=== PATIENT | female | born 1960 | race Caucasian/White ===

== ENCOUNTER 2016-07-13 12:53 | Outpatient (CLI) | payer BC ==
[~2016-07-13] VITALS: Ht 170.2 cm; Wt 79.4 kg
[~2016-07-13 12:53] MED LIST: ALBU8.5H2 IH; ASP81CT PO; ASPI1TAB PO; AZIT-21 PO; BENZ200C25 PO; CEFD300C3 PO; CEPH500C PO; CODE-54 PO; CODE118S2 PO; CYCL10TA45 PO; DOXY-233 PO; DOXY100C2 PO; DULO60CA6 PO; ESTR0.3T PO; FLT05NA16 NS; FLUT10SP NSEACH; FLUT16SP22 NS; FLUT1DIS26 IH; GLUCOSAMINE PO; HYDR-34 PO; HYDR-3714 PO; HYDR-757 PO; HYOS0.1216 PO; LEVO125T6 PO; LEVO175T3 PO; LEVO175T5 PO; LEVO200T6 PO; LEVO750T24 PO; LEVO75TA6 PO; LORA1TAB PO; LVF500T PO; LVT.15T PO; METH4TAB PO; MNTL10T PO; NAPR500T PO; OXYC-12 PO; PANT40TA2 PO; PHENOL MC; POLY17PO6 PO; PRD10T PO; PRD20T PO; RT-COMBINH INH; SUCR1TAB36 PO; TRAM50TA2 PO; Tizanidine Hcl PO
[2016-07-13] MEDS ORDERED: BUPIVACAINE 0.25% 30 ML (SENSORCAINE) VIAL ONE (13:00)
[2016-07-13] MEDS ORDERED: TRIAMCINOLONE ACET (KENALOG-40) 40 MG/ML 1 ML VIAL ONE (13:00)
[2016-07-13 13:20] VITALS: BP 123/76
[2016-07-13 13:52] VITALS: BP 137/88
--- NOTE | 2016-07-13 14:03 | Pain Medicine-Procedure ---
Procedure Pre-Op/Post-Op Diagnosis Diagnosis: disc disorder with radiculopathy, lumbar Indications for Operation Low back pain Attending Surgeon Felicity Procedure Date of Service: Jul 13, 2016 Procedure: Lumbar Epidural Steroid Injection at the L5-S1 level under Fluoroscopic Guidance Procedure: Patient was identified in the holding area. After risks, benefits, and alternatives were discussed with the patient, informed consent was obtained. Patient was brought to the fluoroscopy suite and placed prone on the procedure room table. A time out was performed. Vital signs were monitored throughout the procedure. The patients low back was prepped and draped in the usual sterile fashion. The patients skin was anesthetized using 2% Lidocaine. A Tuohy needle was inserted and advanced to the L5-S1 epidural space under fluoroscopic guidance using the loss of resistance technique and intermittent projection of fluoroscopy. There was no paresthesia with needle placement. The needle position was confirmed in both the AP and lateral view. No contrast was used secondary to history of contrast allergy, after negative aspiration for heme or CSF, 2 ml of 0.25% Bupivicaine, 2ml of preservative free normal saline, and 80mg of Kenalog was injected. The needle was removed and a sterile bandage was placed and the patient was transferred to the recovery area in stable condition. After a brief period of observation, patient was discharged to home with no new neurological deficits and no apparent complications. Complications None LEVY DOSS MD Jul 13, 2016 2:03 pm
== END 2016-07-13 13:53 | disposition home or self-care (01) ==
LOC: CARD 12:53
PROVIDERS: ATTEND Pain Medicine Pain Medicine
DX: M51.16 Intervertebral disc disorders with radiculopathy, lumbar region (principal); Z79.899 Other long term (current) drug therapy
CPT/HCPCS: 62323

== ENCOUNTER 2016-08-06 13:27 | Day surgery (SDC) | payer BC ==
[~2016-08-06] VITALS: Ht 170.2 cm; Wt 78.5 kg
[2016-08-06] VITALS (11 sets, daily range): BP systolic 97–129; BP diastolic 64–89
[2016-08-06 13:49] LABS: BASOPHILS % (AUTO) 0 % (0-10); EOSINOPHILS # (AUTO) 0.1 10^3/uL (0.0-0.3); EOSINOPHILS % (AUTO) 3 % (0-10); LYMPHOCYTES % (AUTO) 43 % (12-44); MEAN CORPUSCULAR HEMOGLOBIN 31 PG (25-34); MEAN CORPUSCULAR HGB CONC 33 G/DL (32-36); MEAN CORPUSCULAR VOLUME 96 FL (80-99); MEAN PLATELET VOLUME 10.2 FL (7.4-10.4); MONOCYTES # (AUTO) 0.5 X 10^3 (0.0-1.0); MONOCYTES % (AUTO) 11 % (0-12); NEUTROPHILS % (AUTO) 43 % (42-75); PLATELET COUNT 155 10^3/uL (130-400); RED BLOOD COUNT 4.04 10^6/uL (4.35-5.85); RED CELL DISTRIBUTION WIDTH 12.6 % (10.0-14.5); WHITE BLOOD COUNT 4.6 10^3/uL (4.3-11.0)
--- NOTE | 2016-08-06 13:53 | ED Chest Pain ---
General Chief Complaint: Chest Pain Stated Complaint: CHEST PAIN Source: patient Exam Limitations: no limitations History of Present Illness Time seen by provider: 13:50 Initial Comments To ER with central chest pain that began at 1250 p.m. today while she was playing with her grandkids at home. She does have some associated shortness of breath and she had associated diaphoresis with this. The pain was described as an ache. It was somewhat worsened by deep breathing in the right side of her chest was tender to palpation. This initially radiated up to both sides of her neck. EMS gave her 324 mg of aspirin and one nitroglycerin. The nitroglycerin did not seem to affect her pain she states though her pain now no longer radiates to the right side of her neck, only the left side of her neck. Yesterday while at work she had some diaphoresis and fatigue but no chest pain. She is a former smoker but quit 2 years ago. 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 Associated Symptoms: diaphoresis, No nausea/vomiting Allergies and Home Medications Allergies Coded Allergies: Iodinated Contrast Media - Oral and (Verified Allergy, Unknown, 12/24/15) Home Medications Levothyroxine Sodium 175 Mcg Tablet, 300 MCG PO DAILY, (Reported) Pantoprazole Sodium 40 Mg Tablet.dr, 40 MG PO DAILY, #90 Ref 3 Prescribed by: [facility] on 12/24/15 1412 Polyethylene Glycol 3350 17 Gm Powd.pack, 17 GM PO BID for 3 Days Prescribed by: ANNA CRESPO on 01/06/16 1727 Review of Systems Constitutional: see HPI, diaphoresis EENTM: No Symptoms Reported Respiratory: No Symptoms Reported Cardiovascular: See HPI, Chest Pain, Denies Edema, Denies Irregular Heart Rate , Denies Lightheadedness, Denies Palpitations, Denies Syncope Gastrointestinal: No Symptoms Reported Genitourinary: No Symptoms Reported Musculoskeletal: no symptoms reported Skin: no symptoms reported Psychiatric/Neurological: No Symptoms Reported Endocrine: No Symptoms Reported Hematologic/Lymphatic: No Symptoms Reported Past Qnhvkyv-Keddaw-Updnru Hx Patient Social History Type Used: Cigarettes Former Smoker/When Quit: Jan 17, 2013 Recent Hopitalizations: Yes (BRAIN AN 1995, BLADDER TIE UP , TVH WITH BSO 1999, GALLBLADDER 2005) Immunizations Up To Date Tetanus Booster (TDap): More than 5yrs PED Vaccines UTD: No Date of Pneumonia Vaccine: Jan 31, 2013 Date of Influenza Vaccine: Jan 17, 2014 Seasonal Allergies Seasonal Allergies: No Surgeries HX Surgeries: Yes (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) Surgeries: Bladder Surgery, Gallbladder, Hysterectomy Respiratory Hx Respiratory Disorders: Yes Respiratory Disorders: COPD Cardiovascular Hx Cardiac Disorders: No Neurological Hx Neurological Disorders: No Reproductive System Hx Reproductive Disorders: No Sexually Transmitted Disease: No HIV/AIDS: No 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 Genitourinary Hx Genitourinary Disorders: No Gastrointestinal Hx Gastrointestinal Disorders: No Gastrointestinal Disorders: Irritable Bowel Musculoskeletal Musculoskeletal Disorders: Fractures Endocrine Hx Endocrine Disorders: No Endocrine Disorders: Hyperthyroidism HEENT HX ENT Disorders: No Cancer Hx Cancer: No Psychosocial Hx Psychiatric Problems: No Integumentary HX Skin/Integumentary Disorder: No Blood Transfusions Hx Blood Disorders: No Adverse Reaction to a Blood Tr: No Family Medical History Significant Family History: Cancer, CVA, Hypertension, Renal Disease Family Medial History: Arthritis 19 FATHER Cancer G8 SISTER 19 MOTHER Cardiovascular disease 19 FATHER Completed stroke 19 FATHER Family history: Cardiovascular disease 19 FATHER Kidney disease 19 FATHER No Family History of: AIDS Abdominal aortic aneurysm [place]'s disease Alcoholism Alzheimer's disease Aphasia Cancer of mouth Cataracts Colon cancer Congenital disease Coronary thrombosis Cystic fibrosis Deafness or hearing loss Dementia Diabetes mellitus Drug abuse Dysphasia Fibrocystic disease of breast Gastroenteritis Glaucoma Headache disorder Hypercholesterolemia Hypertension Infertility Myocardial infarction Neoplasm Not obtainable due to adoption Osteoporosis Parkinson's disease Prostate cancer Respiratory disorder Seizure disorder Severe allergy Thyroid disease Tuberculosis Visual disorder Physical Exam Vital Signs Vital Sign - Last 12Hours 08/06/16 14:47 Temp 98.3 Capillary Refill : General Appearance: No Apparent Distress, WD/WN HEENT: PERRL/EOMI, TMs Normal Neck: Full Range of Motion, Normal Inspection Respiratory: Lungs Clear, Normal Breath Sounds, No Accessory Muscle Use, No Respiratory Distress, Other (sternal border is very tender to palpation.) Cardiovascular: Regular Rate, Rhythm, Normal Peripheral Pulses Gastrointestinal: Normal Bowel Sounds, Non Tender, Soft Neurologic/Psychiatric: Alert, Oriented x3, No Motor/Sensory Deficits Skin: Normal Color, Warm/Dry Progress/Results/Core Measures Results/Orders Lab Results Laboratory Tests Test 08/06/16 13:40 Range/Units White Blood Count 4.6 4.3-11.0 10^3/uL Red Blood Count 4.04 L 4.35-5.85 10^6/uL Hemoglobin 12.6 11.5-16.0 G/DL Hematocrit 39 35-52 % Mean Corpuscular Volume 96 80-99 FL Mean Corpuscular Hemoglobin 31 25-34 PG Mean Corpuscular Hemoglobin Concent 33 32-36 G/DL Red Cell Distribution Width 12.6 10.0-14.5 % Platelet Count 155 130-400 10^3/uL Mean Platelet Volume 10.2 7.4-10.4 FL Neutrophils (%) (Auto) 43 42-75 % Lymphocytes (%) (Auto) 43 12-44 % Monocytes (%) (Auto) 11 0-12 % Eosinophils (%) (Auto) 3 0-10 % Basophils (%) (Auto) 0 0-10 % Neutrophils # (Auto) 2.0 1.8-7.8 X 10^3 Lymphocytes # (Auto) 2.0 1.0-4.0 X 10^3 Monocytes # (Auto) 0.5 0.0-1.0 X 10^3 Eosinophils # (Auto) 0.1 0.0-0.3 10^3/uL Basophils # (Auto) 0.0 0.0-0.1 10^3/uL Prothrombin Time 13.5 12.2-14.7 SEC INR Comment 1.1 0.8-1.4 Activated Partial Thromboplast Time 22 L 24-35 SEC Sodium Level 141 135-145 MMOL/L Potassium Level 3.6 3.6-5.0 MMOL/L Chloride Level 109 H 98-107 MMOL/L Carbon Dioxide Level 22 21-32 MMOL/L Anion Gap 10 5-14 MMOL/L Blood Urea Nitrogen 18 7-18 MG/DL Creatinine 0.79 0.60-1.30 MG/DL Estimat Glomerular Filtration Rate > 60 BUN/Creatinine Ratio 23 Glucose Level 106 H 70-105 MG/DL Calcium Level 9.4 8.5-10.1 MG/DL Magnesium Level 2.3 1.8-2.4 MG/DL Total Bilirubin 0.8 0.1-1.0 MG/DL Aspartate Amino Transf (AST/SGOT) 16 5-34 U/L Alanine Aminotransferase (ALT/SGPT) 10 0-55 U/L Alkaline Phosphatase 52 40-136 U/L Myoglobin 51.4 10.0-92.0 NG/ML Troponin I < 0.30 <0.30 NG/ML Total Protein 6.1 L 6.4-8.2 G/DL Albumin 4.1 3.2-4.5 G/DL My Orders Orders - ANNA CRESPO APRN Cbc With Automated Diff (08/06/16 13:41) Magnesium (08/06/16 13:41) Chest 1 View, Ap/Pa Only (08/06/16 13:41) Ekg Tracing (08/06/16 13:41) Cardiac Profile 1 (08/06/16 13:41) Comprehensive Metabolic Panel (08/06/16 13:41) Myoglobin Serum (08/06/16 13:41) Protime With Inr (08/06/16 13:41) Partial Thromboplastin Time (08/06/16 13:41) O2 (08/06/16 13:41) Monitor-Rhythm Ecg Trace Only (08/06/16 13:41) Lipid Panel (08/07/16 06:00) Saline Lock/Iv-Start (08/06/16 13:41) Ct Angio Chest W (08/06/16 13:49) Diphenhydramine Injection (Benadryl Inje (08/06/16 14:00) Methylprednisolone Sod Succ (Solu-Medrol (08/06/16 14:00) Iohexol Injection (Omnipaque 350 Mg/Ml 1 (08/06/16 14:15) Ns (Ivpb) (Sodium Chloride 0.9% Ivpb Bag (08/06/16 14:15) Morphine Injection (Morphine Injection (08/06/16 14:45) Medications Given in ED Current Medications Medications Dose Ordered Sig/Mickie Route Start Time Stop Time Status Last Admin Dose Admin Diphenhydramine HCl 25 mg ONCE ONCE IVP 08/06/16 14:00 08/06/16 14:01 DC 08/06/16 14:01 25 MG Iohexol 150 ml ONCE ONCE IV 08/06/16 14:15 08/06/16 14:20 DC 08/06/16 14:16 125 ML Methylprednisolone Sodium Succinate 125 mg ONCE ONCE IVP 08/06/16 14:00 08/06/16 14:01 DC 08/06/16 14:01 125 MG Morphine Sulfate 4 mg ONCE ONCE IVP 08/06/16 14:45 08/06/16 14:46 DC 08/06/16 14:47 4 MG Sodium Chloride 100 ml ONCE ONCE IV 08/06/16 14:15 08/06/16 14:20 DC 08/06/16 14:16 80 ML Vital Signs/I&O Vital Sign - Last 12Hours 08/06/16 14:47 Temp 98.3 Progress Note : Progress Note 1354-patient's allergy list includes IV contrast media. Patient states it makes her throat swell up. However she states that she has had CT with IV contrast after being premedicated with Benadryl and Solu-Medrol and has done fine. Diagnostic Imaging Diagonstic Imaging: CT Comments NAME: LUCERO HORNER [facility] REC#: [id number] PT STATUS: REG ER : 1960 PHYSICIAN: ANNA CRESPO APRN ADMIT DATE: 08/06/16/ER Draft Date of Exam:08/06/16 CT ANGIO CHEST W PROCEDURE: CT angiography of the chest with contrast. TECHNIQUE: Multiple contiguous axial images were obtained through the chest after uneventful bolus administration of intravenous contrast. Reconstructed CTA MIP acquisitions were also performed. INDICATION: Chest pain radiating to right side of neck and left shoulder blade. COMPARISON: None. FINDINGS: No evidence of aneurysm, dissection, or high-grade narrowing involving the thoracic aorta or its major branches in the chest. No evidence of pulmonary emboli on this nondedicated exam. Incidental azygos fissure. No pleural or pericardial effusion. No mediastinal, hilar, or axillary lymphadenopathy. Lungs are clear. Mild degenerative changes in the thoracic spine. No acute osseous findings. Cholecystectomy. The visualized upper abdominal contents, including the adrenal glands, are negative. IMPRESSION: Negative thoracic aorta. No acute CT findings in the chest. Dictated on workstation # [id number] Dict: 08/06/16 1438 Trans: 08/06/16 1445 LEENA [id number] Interpreted by: ROSALIE KIRBY MD Electronically signed by: Departure Communication Time/Spoke to Admitting Phy: 15:[address] Reese. We'll admit the patient for cardiology consultation. Time/Spoke to Consulting Physi: 15:27 Communication/Consulting I did discuss the case with Dr. Mckeon. He would like her to be on an aspirin and beta roni and he will agree to consult. Impression Impression: Primary Impression: Chest pain Disposition: ADMITTED INPATIENT Condition: Stable Decision to Admit Reason: Admit from ER (General) ( of) Decision to Admit/Date: Aug 06, 2016 Time/Decision to Admit Time: 15:16 Departure-Patient Inst. Referrals: EZEKIEL LERMA MD (PCP/Family) Primary Care Physician ANNA CRESPO APRN Aug 06, 2016 13:52
[2016-08-06] MEDS ORDERED: diphenhydrAMINE 50 MG/ML INJ (BENADRYL) IVP ONE (14:00)
[2016-08-06] MEDS ORDERED: methylPREDNISolone 125 MG (Solu-MEDROL) VIAL IVP ONE (14:00)
[2016-08-06 14:02] LABS: INR 1.1 (0.8-1.4); PROTHROMBIN TIME PATIENT 13.5 SEC (12.2-14.7)
[2016-08-06 14:11] LABS: ALANINE AMINOTRANSFERASE 10 U/L (0-55); ALBUMIN 4.1 G/DL (3.2-4.5); ANION GAP 10 MMOL/L (5-14); ASPARTATE AMINO TRANSFERASE 16 U/L (5-34); BILIRUBIN,TOTAL 0.8 MG/DL (0.1-1.0); BLOOD UREA NITROGEN 18 MG/DL (7-18); BUN/CREATININE RATIO 23; CALCIUM 9.4 MG/DL (8.5-10.1); CARBON DIOXIDE 22 MMOL/L (21-32); CHLORIDE 109 MMOL/L (98-107); CREATININE SERUM 0.79 MG/DL (0.60-1.30); GFR ESTIMATED > 60; GLUCOSE 106 MG/DL (70-105); MAGNESIUM 2.3 MG/DL (1.8-2.4); POTASSIUM 3.6 MMOL/L (3.6-5.0); SODIUM 141 MMOL/L (135-145); TOTAL PROTEIN 6.1 G/DL (6.4-8.2)
[2016-08-06] MEDS ORDERED: IOHEXOL 350 MG/ML 150 ML (OMNIPAQUE 350) VIAL IV ONE (14:15)
[2016-08-06] MEDS ORDERED: NS 100 ML (IVPB) BAG IV ONE (14:15)
[2016-08-06 14:18] LABS: MYOGLOBIN SERUM 51.4 NG/ML (10.0-92.0)
--- NOTE | 2016-08-06 14:44 | Diagnostic Imaging Report ---
INDICATION: Left-sided chest pain. PA chest obtained at 2:44 p.m. and compared with 04/08/2014. Heart and mediastinal silhouette are normal in appearance. There is a normal variant of azygos lobe in the right upper lobe. The lungs appear essentially clear. There is resolution of the basilar infiltrates visualized on 04/08/2014. IMPRESSION: No acute process in the chest. Resolution of previous bibasilar infiltrates visualized on 04/08/2014. Dictated by: Dictated on workstation # [id number]
[2016-08-06] MEDS ORDERED: morphine INJ 10 MG/ML 1ML (SYR OR VIAL) IVP ONE (14:45)
--- NOTE | 2016-08-06 14:46 | Diagnostic Imaging Report ---
PROCEDURE: CT angiography of the chest with contrast. TECHNIQUE: Multiple contiguous axial images were obtained through the chest after uneventful bolus administration of intravenous contrast. Reconstructed CTA MIP acquisitions were also performed. INDICATION: Chest pain radiating to right side of neck and left shoulder blade. COMPARISON: None. FINDINGS: No evidence of aneurysm, dissection, or high-grade narrowing involving the thoracic aorta or its major branches in the chest. No evidence of pulmonary emboli on this nondedicated exam. Incidental azygos fissure. No pleural or pericardial effusion. No mediastinal, hilar, or axillary lymphadenopathy. Lungs are clear. Mild degenerative changes in the thoracic spine. No acute osseous findings. Cholecystectomy. The visualized upper abdominal contents, including the adrenal glands, are negative. IMPRESSION: Negative thoracic aorta. No acute CT findings in the chest. Dictated by: Dictated on workstation # [id number]
[2016-08-06] MEDS ORDERED: LEVO300T5 PO (16:17)
[2016-08-06] MEDS ORDERED: MELO7.5T46 PO (16:17)
[2016-08-06] MEDS ORDERED: EST30C VG (16:17)
[2016-08-06] MEDS ORDERED: HYDR-3820 PO (16:17)
[2016-08-06] MEDS: ASPIRIN 325 MG (5 GR) TABLET PO SCH (16:26)
--- NOTE | 2016-08-06 17:48 | Consultation-Cardiology ---
HPI-Cardiology Cardiology Consultation: Date of Consultation 08/06/16 Date of Admission 08/06/16 Attending Physician Belinda Reese DO Admitting Physician Annabelle Walker MD Consulting Physician DILAN HENNING MD, FACP, FACC, FSCAI, CCDS HPI: Chief Complaint: Chest discomfort 55 yo with midsternal chest discomfort radiating to neck and L arm, lasting approx 1-2 hours, mod in intensity, feeling of ache, associated with diaphoresis and shortness of breath, improved with s/l NTG, never experienced before. Denies exertional shortness of breath. Denies syncope or leg swelling. Sometimes has a feeling of 'quiver' within the chest lasting only a beat or two Review of Systems-Cardiology Review of Systems Constitutional: No lightheadedness, No malaise, No weight loss, No weight gain Eyes: No vision change Ears/Nose/Throat: No ear discharge, No nasal drainage, No recent hearing loss Respiratory: As described under HPI Cardiovascular: As described under HPI Gastrointestinal: No constipation, No diarrhea, No nausea, No vomiting Genitourinary: No dysuria, No hematuria, No urine frequency changes Musculoskeletal: No back pain, No joint pain Skin: No rash, No ulcerations Psychiatric/Neurological: No focal weakness, No seizure, No syncope Hematologic: No bleeding abnormalities OTC-Nqovec-Tqikju Hx Patient Social History Alcohol Use: Denies Use Recreational Drug Use: No Smoking Status: Former Smoker Former smoker/When Quit: Jan 17, 2013 Type Used: Cigarettes 2nd Hand Smoke Exposure: No Recent Foreign Travel: No Recent Infectious Disease Expo: No Hospitalization with Isolation: Denies Physical Abuse Screen: No Sexual Abuse: No Immunizations Up To Date Tetanus Booster (TDap): More than 5yrs Date of Pneumonia Vaccine: Jan 31, 2013 Date of Influenza Vaccine: Jan 17, 2014 Past Medical History PMH As described under Assessment. Family Medical History Family Medical History: Father had cor and carotid stents in his 70s Family History: Arthritis 19 FATHER Cancer G8 SISTER 19 MOTHER Cardiovascular disease 19 FATHER Completed stroke 19 FATHER Family history: Cardiovascular disease 19 FATHER Kidney disease 19 FATHER No Family History of: AIDS Abdominal aortic aneurysm [place]'s disease Alcoholism Alzheimer's disease Aphasia Cancer of mouth Cataracts Colon cancer Congenital disease Coronary thrombosis Cystic fibrosis Deafness or hearing loss Dementia Diabetes mellitus Drug abuse Dysphasia Fibrocystic disease of breast Gastroenteritis Glaucoma Headache disorder Hypercholesterolemia Hypertension Infertility Myocardial infarction Neoplasm Not obtainable due to adoption Osteoporosis Parkinson's disease Prostate cancer Respiratory disorder Seizure disorder Severe allergy Thyroid disease Tuberculosis Visual disorder Allergies and Home Medications Allergies Coded Allergies: Iodinated Contrast Media - Oral and (Verified Allergy, Unknown, 12/24/15) Home Medications Estrogens Conjugated 30 Gm Cr, 0.5 GM VG TWICE WEEKLY, (Reported) Hydrocodone/Acetaminophen 1 Each Tablet, 1 TAB PO TID PRN for PAIN-MODERATE, ( Reported) Levothyroxine Sodium 300 Mcg Tablet, 300 MCG PO DAILY, (Reported) Meloxicam 7.5 Mg Tablet, 7.5 MG PO BID WITH MEALS PRN for PAIN, (Reported) Physical Exam-Cardiology Physical Exam Vital Signs/I&O Vital Sign - Last 12Hours 08/06/16 08/06/16 14:47 15:55 Temp 98.3 Pulse Ox 99 Capillary Refill : Constitutional: AAO x 3, well-developed, well-nourished HEENT: EOMI, hearing is well preserved, oral hygience is good, No xanthelasmas are seen Neck: No carotid bruit, carotid pulses are 2 + bilaterally, with good upstrokes Respiratory: No accessory muscle use, lungs clear to percussion Cardiovascular: regular rate-rhythm, S1 and S2, systolic murmur (faint ABDIRIZAK at card base) Gastrointestinal: No tender, soft, No guarding, No rebound Extremities: No clubbing, No cyanosis, No significant edema Neurologic/Psychiatric: oriented x 3, grossly intact, power is 5/5 both on sides Skin: No rash on exposed areas, No ulcerations on exposed areas Data Review Labs Laboratory Tests 08/06/16 13:40: White Blood Count 4.6, Red Blood Count 4.04L, Hemoglobin 12.6, Hematocrit 39, Mean Corpuscular Volume 96, Mean Corpuscular Hemoglobin 31, Mean Corpuscular Hemoglobin Concent 33, Red Cell Distribution Width 12.6, Platelet Count 155, Mean Platelet Volume 10.2, Neutrophils (%) (Auto) 43, Lymphocytes (%) (Auto) 43 , Monocytes (%) (Auto) 11, Eosinophils (%) (Auto) 3, Basophils (%) (Auto) 0, Neutrophils # (Auto) 2.0, Lymphocytes # (Auto) 2.0, Monocytes # (Auto) 0.5, Eosinophils # (Auto) 0.1, Basophils # (Auto) 0.0, Prothrombin Time 13.5, INR Comment 1.1, Activated Partial Thromboplast Time 22L, Sodium Level 141, Potassium Level 3.6, Chloride Level 109H, Carbon Dioxide Level 22, Anion Gap 10 , Blood Urea Nitrogen 18, Creatinine 0.79, Estimat Glomerular Filtration Rate > 60, BUN/Creatinine Ratio 23, Glucose Level 106H, Calcium Level 9.4, Magnesium Level 2.3, Total Bilirubin 0.8, Aspartate Amino Transf (AST/SGOT) 16, Alanine Aminotransferase (ALT/SGPT) 10, Alkaline Phosphatase 52, Myoglobin 51.4, Troponin I < 0.30, Total Protein 6.1L, Albumin 4.1 Laboratory Tests 08/06/16 13:40 A/P-Cardiology Assessment/Admission Diagnosis Chest discomfort suggestive of new onset angina Hyperthyroidism treated with radioiodine ablation several years ago; on thyroid replacement since Quit smoking in 2013 Discussion and Recomendations Symptoms are classical for unstable angina. Has cor risk factors. Card cath appears appropriate. I had a detailed conversation with her and explained rationale, procedure, risks, benefits, potential complications, and alternatives of card cath and possible ad hoc cor intervention. She understands and provides informed consent Clinical Quality Measures AMI/AHF: ASA po Prior to arrival: Yes DVT/VTE Risk/Contraindication: Risk Factor Score Per Nursin RFS Level Per Nursing on Admit: 1=Low/No VTE PPX DILAN HENNING MD FACP FAC CCDS Aug 06, 2016 17:48
[2016-08-06] MEDS ORDERED: LIDOCAINE 1% INJ 20 ML (XYLOCAINE) VIAL ONE (18:55)
[2016-08-06] MEDS ORDERED: MIDAZOLAM 5 MG/5 ML (VERSED) VIAL ONE (18:55)
[2016-08-06] MEDS ORDERED: HEParin (CATH LAB) 2,000 ML IV ONE (18:56)
[2016-08-06] MEDS ORDERED: NS IV 1000 ML 1,000 ML ONE (18:56)
[2016-08-06] MEDS ORDERED: fentaNYL INJECTION 100 MCG/2 ML AMP ONE (18:56)
[2016-08-06] MEDS ORDERED: diphenhydrAMINE 50 MG/ML INJ (BENADRYL) ONE (18:56)
[2016-08-06] MEDS ORDERED: methylPREDNISolone 125 MG (Solu-MEDROL) VIAL ONE (19:25)
--- NOTE | 2016-08-06 19:25 | Cardiac Procedure Note-CS/ASA ---
Pre-Procedure Note Pre-Op Procedure Note H&P Reviewed The H&P was reviewed, patient examined and no changes noted. Date H&P Reviewed: Aug 06, 2016 Time H&P Reviewed: 19:25 Conscious Sedation Pre-Proced Time Reviewed: 19:25 ASA Class: 3 Airway Mallampati Classification: (blackfeet appropriate class) I. II. III, IV Lungs Heart ASA score ASA 1: a normal healthy patient ASA 2: a patient with a mild systemic disease (mid diabetes, controlled hypertension, obesity ASA 3: a patient with a severe systemic disease that limits activity (angina , COPD, prior Myocardial infarction) ASA 4: a patient with an incapacitating disease that is a constant threat to life (CHF, renal failure) ASA 5: a moribund patient not expected to survive 24 hrs. (ruptured aneurysm) ASA 6: a declared brain patient whose organs are being harvested. For emergent operations, add the letter E after the classification Grade 2 Sedation Plan: Analgesia, Amnesia, Plan communicated to team members, Discussed options with patient/fam, Discussed risks with patient/fam Note The patient is an appropriate candidate to undergo the planned procedure, sedation, and anesthesia. The patient immediately re-assessed prior to indication. DILAN HENNING MD FACP FAC CCDS Aug 06, 2016 19:25
[2016-08-06] MEDS ORDERED: CATHETER FLUSH 10 ML SYR IV PRN (20:00)
[2016-08-06] MEDS ORDERED: NS IV 1000 ML 1,000 ML IV SCH ×2 (20:00→20:08)
[2016-08-06] MEDS ORDERED: PATIENT MAY USE OWN MEDS, ALL PO SCH (20:15)
[2016-08-07] VITALS (8 sets, daily range): BP systolic 97–107; BP diastolic 65–71
--- NOTE | 2016-08-07 00:29 | CARDIAC CATHETERIZATION ---
DATE OF SERVICE: 08/06/2016 Mary Armas is a 55-year-old lady with coronary artery disease risk factors who was hospitalized with symptoms of classical unstable angina. Cardiac catheterization was carried out after having obtained an informed consent. PROCEDURE: She was brought to the cardiac catheterization laboratory. Right groin was prepared and draped in the usual sterile fashion. Because of a history of CONTRAST allergy, she was premedicated with intravenous Solu-Medrol and diphenhydramine. The 1% lidocaine was used for local anesthesia. Modified Seldinger technique was used to advance a 5-Indonesian sheath into the right femoral artery. The 5-Indonesian JL4 catheter was used for left coronary angiography. The 5-Indonesian JR4 catheter was used for right coronary angiography. The 5-Indonesian pigtail catheter was used for left heart catheterization and left ventricular angiography. The pigtail was pulled back to the aortic arch and aortic arch angiography was performed. Pigtail was removed. Angiography of the right femoral artery was carried out through the sheath. Mynx was used to achieve hemostasis. The patient tolerated the procedure well. HEMODYNAMICS: Left ventricular end-diastolic pressure following cautery angiography was 12 mmHg. There was no significant pressure gradient on pullback across the aortic valve. Ascending aortic pressure was 115/68 with a mean of 98 mmHg. LEFT VENTRICULAR ANGIOGRAPHY: It was carried out in the right anterior oblique projection. Global left ventricular systolic function is normal. No regional wall motion abnormalities are seen. Left ventricular ejection fraction is 60-65%. AORTIC ROOT ANGIOGRAPHY: Did not indicate any significant thoracic aortic aneurysm or dissection. The neck arteries, to the extent seen, do not exhibit any significant disease. CORONARY ANGIOGRAPHY: Left main coronary artery, left anterior descending artery, left circumflex artery, and right coronary artery are all angiographically normal. Right coronary artery is dominant. CONCLUSIONS: 1. Angiographically normal coronary arteries. 2. Normal global left ventricular systolic function without any regional wall motion abnormality and with left ventricular ejection fraction of 60-65%. 3. No significant mitral regurgitation. 4. Normal left ventricular end-diastolic pressures. 5. No evidence of thoracic aortic aneurysm or dissection. DISCUSSION AND RECOMMENDATIONS: Based on the results of the study, chest discomfort does not appear to be of coronary origin. Continuing risk factor modification is advised. Job ID: [id number] DocumentID: [id number] Dictated Date: 08/06/2016 20:01:18 Development Expert Date: 08/07/2016 00:27:49 Dictated By: DILAN HENNING MD, MA, FACP, FACC,
[2016-08-07 03:48] LABS: MEAN PLATELET VOLUME 10.4 FL (7.4-10.4); RED BLOOD COUNT 4.01 10^6/uL (4.35-5.85); RED CELL DISTRIBUTION WIDTH 12.7 % (10.0-14.5); WHITE BLOOD COUNT 4.9 10^3/uL (4.3-11.0)
[2016-08-07 04:18] LABS: ANION GAP 11 MMOL/L (5-14); BLOOD UREA NITROGEN 15 MG/DL (7-18); BUN/CREATININE RATIO 20; CALCIUM 8.7 MG/DL (8.5-10.1); CARBON DIOXIDE 19 MMOL/L (21-32); CHLORIDE 110 MMOL/L (98-107); CREATININE SERUM 0.74 MG/DL (0.60-1.30); GFR ESTIMATED > 60; GLUCOSE 132 MG/DL (70-105); POTASSIUM 4.2 MMOL/L (3.6-5.0); SODIUM 140 MMOL/L (135-145)
--- NOTE | 2016-08-07 08:19 | Progress Note-Cardiology ---
Cardiology SOAP Progress Note Subjective: Reporting some epigastric discomfort. No c/o SOB, palpitations, syncope or near syncope. No c/o right groin discomfort. Objective: I&O/Vital Signs Vital Sign - Last 12Hours 08/06/16 08/06/16 08/07/16 08/07/16 22:30 23:00 00:00 00:00 Temp 97.0 Pulse 61 50 67 Resp 15 18 18 B/P (MAP) 99/64 103/67 97/66 Pulse Ox 97 96 94 97 O2 Delivery Room Air Room Air Room Air 08/07/16 08/07/16 08/07/16 08/07/16 01:00 01:28 02:05 03:00 Pulse 48 58 48 54 Resp 10 12 12 B/P (MAP) 100/65 106/67 99/71 Pulse Ox 94 94 94 O2 Delivery Room Air Room Air Room Air 08/07/16 08/07/16 08/07/16 08/07/16 04:25 04:30 05:02 06:35 Temp 97.6 Pulse 61 56 66 Resp 12 14 15 B/P (MAP) 107/68 Pulse Ox 97 99 O2 Delivery Room Air Room Air 08/07/16 08/07/16 08/07/16 07:00 08:20 08:20 Temp 97.3 Pulse 54 61 Resp 10 B/P (MAP) 103/68 Pulse Ox 99 O2 Delivery Room Air Intake and Output 08/07/16 00:00 Intake Total 0 ml Balance 0 ml Weight (Pounds): 173 Weight (Ounces): 2.0 Weight (Calculated Kilograms): [id number] Side: right Groin site without hematoma: Yes Condition: DP/PT pulses palpable, extremity w/d/p Bruising: mild bruising Constitutional: AAO x 3, well-developed, well-nourished Respiratory: No accessory muscle use, lungs clear to percussion Cardiovascular: regular rate-rhythm, S1 and S2, systolic murmur (faint ABDIRIZAK at card base) Gastrointestional: No tender, soft, No guarding, No rebound Extremities: No clubbing, No cyanosis, No significant edema Neurologic/Psychiatric: oriented x 3, grossly intact, power is 5/5 both on sides Skin: No rash on exposed areas, No ulcerations on exposed areas Results/Procedures: Labs Laboratory Tests 08/06/16 13:40: White Blood Count 4.6, Red Blood Count 4.04L, Hemoglobin 12.6, Hematocrit 39, Mean Corpuscular Volume 96, Mean Corpuscular Hemoglobin 31, Mean Corpuscular Hemoglobin Concent 33, Red Cell Distribution Width 12.6, Platelet Count 155, Mean Platelet Volume 10.2, Neutrophils (%) (Auto) 43, Lymphocytes (%) (Auto) 43 , Monocytes (%) (Auto) 11, Eosinophils (%) (Auto) 3, Basophils (%) (Auto) 0, Neutrophils # (Auto) 2.0, Lymphocytes # (Auto) 2.0, Monocytes # (Auto) 0.5, Eosinophils # (Auto) 0.1, Basophils # (Auto) 0.0, Prothrombin Time 13.5, INR Comment 1.1, Activated Partial Thromboplast Time 22L, Sodium Level 141, Potassium Level 3.6, Chloride Level 109H, Carbon Dioxide Level 22, Anion Gap 10 , Blood Urea Nitrogen 18, Creatinine 0.79, Estimat Glomerular Filtration Rate > 60, BUN/Creatinine Ratio 23, Glucose Level 106H, Calcium Level 9.4, Magnesium Level 2.3, Total Bilirubin 0.8, Aspartate Amino Transf (AST/SGOT) 16, Alanine Aminotransferase (ALT/SGPT) 10, Alkaline Phosphatase 52, Myoglobin 51.4, Troponin I < 0.30, Total Protein 6.1L, Albumin 4.1 08/06/16 20:30: Troponin I < 0.30 08/07/16 03:03: White Blood Count 4.9, Red Blood Count 4.01L, Hemoglobin 12.4, Hematocrit 39, Mean Corpuscular Volume 98, Mean Corpuscular Hemoglobin 31, Mean Corpuscular Hemoglobin Concent 32, Red Cell Distribution Width 12.7, Platelet Count 129L, Mean Platelet Volume 10.4, Sodium Level 140, Potassium Level 4.2, Chloride Level 110H, Carbon Dioxide Level 19L, Anion Gap 11, Blood Urea Nitrogen 15, Creatinine 0.74, Estimat Glomerular Filtration Rate > 60, BUN/Creatinine Ratio 20, Glucose Level 132H, Calcium Level 8.7 Procedures S/P cardiac cath on 08-06-16. Please refer to Dr. Mckeon's cardiac cath report for details. A/P: Assessment: Angiographically normal coronary arteries. Normal global left ventricular systolic function without any regional wall motion abnormality and with left ventricular ejection fraction of 60-65%. No significant mitral regurgitation. Normal left ventricular end-diastolic pressures. No evidence of thoracic aortic aneurysm or dissection. Per cardiac cath of 08-06-16 Hyperthyroidism treated with radioiodine ablation several years ago; on thyroid replacement since Quit smoking in 2013 Plan: Cardiac cath showed normal coronary arteries Chest discomfort does not appear cardiac in origin based on cardiac cath She has a h/o GERD for which she takes PPI Consider GI scope as an outpatient Will stop BB d/t somewhat low blood pressure and no h/o HTN Continue risk factor modification OK to discharge home from cardiac stand point Out pt f/u in 2-4 weeks Physician Assessment Physician Assessment Lungs: clear Cor: reg A&R * As documented in our note above * I had a detailed discussion with her regarding cath findings, post-cath care, risk factor modification, and outpatient f/u. I answered her questions Clinical Quality Measures AMI/AHF: ASA po Prior to arrival: Yes [facility] Aug 07, 2016 08:19 DILAN MCKEON MD FACP [facility] Aug 07, 2016 10:25
[2016-08-07] MEDS: ASPIRIN 325 MG (5 GR) TABLET PO SCH (08:23)
--- NOTE | 2016-08-07 10:28 | Short Stay Summary-Hospitalist ---
HPI History of Present Illness: HPI/Chief Complaint CC: Chest pain HPI: This is a 55yoWF pt that was at home playing with grandkids and began having SOB, chest pain and diaphoresis. EMS was called, Aspirin given, due to smoking hx quit 2 years ago and other risk factors, she went under cardiac cath revealing no obstructive heart disease and pt currently undergoing echocardiogram. CBC normal, CMP normal, Troponin negative, CT angiogram no PE. 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 Mckeon this morning. Patient Interview: Dr. Clifton discusses pt's cath results, and informs pt that she may DC today. Pt sees Dr. Walker at [facility]. Physical exam stable. Pt denies smoking. Pt states that she does not need refills of any home meds at this time. Plan: Echo results pending. Pt stable for DC with follow-up at [facility] Scribed by Fran Telles under the direct supervision of Dr. Clifton. Source: patient Exam Limitations: no limitations Date Seen 08/07/16 Attending Physician Belinda Clifton Bethany N MD Referring Physician Date of Admission Aug 06, 2016 at 15:37 Home Medications & Allergies Home Medications Reviewed patient Home Medication Reconciliation Form Allergies Allergies Coded Allergies Iodinated Contrast Media - Oral and (Verified Allergy, Unknown, 12/24/15) Past Fzhtmqy-Gjxqwv-Apthkp Hx Patient Social History Marrital Status: single Alcohol Use: Denies Use Recreational Drug Use: No Smoking Status: Former Smoker Former smoker/When Quit: Jan 17, 2013 Type Used: Cigarettes 2nd Hand Smoke Exposure: No Physical Abuse Screen: No Sexual Abuse: No Recent Foreign Travel: No Contact w/other who traveled: No Recent Hopitalizations: Yes (BRAIN AN 1995, BLADDER TIE UP 86, TVH WITH BSO 1999, GALLBLADDER 2005) Recent Infectious Disease Expo: No Immunizations Up To Date Tetanus Booster (TDap): More than 5yrs Date of Pneumonia Vaccine: Jan 31, 2013 Date of Influenza Vaccine: Jan 17, 2014 Seasonal Allergies Seasonal Allergies: No Surgeries HX Surgeries: Yes (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) Surgeries: Bladder Surgery, Gallbladder, Hysterectomy Respiratory Hx Respiratory Disorders: Yes Respiratory Disorders: Asthma Cardiovascular Hx Cardiovascular Disorders: No Neurological Hx Neurological Disorders: No Reproductive System Hx Reproductive Disorders: No Sexually Transmitted Disease: No HIV/AIDS: No 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 Genitourinary Hx Genitourinary Disorders: No Gastrointestinal Hx Gastrointestinal Disorders: No Gastrointestinal Disorders: Irritable Bowel Musculoskeletal Musculoskeletal Disorders: Fractures Endocrine Hx Endocrine Disorders: Yes Endocrine Disorders: Hypothyroidsim HEENT HX ENT Disorders: No Cancer Hx Cancer: No Psychosocial Hx Psychiatric Problems: No Integumentary HX Skin/Integumentary Disorder: No Blood Transfusions Hx Blood Disorders: No Adverse Reaction to a Blood Tr: No Family Medical History Significant Family History: Cancer, CVA, Hypertension, Renal Disease Family Hx: Arthritis 19 FATHER Cancer G8 SISTER 19 MOTHER Cardiovascular disease 19 FATHER Completed stroke 19 FATHER Family history: Cardiovascular disease 19 FATHER Kidney disease 19 FATHER No Family History of: AIDS Abdominal aortic aneurysm Miguel Ángel's disease Alcoholism Alzheimer's disease Aphasia Cancer of mouth Cataracts Colon cancer Congenital disease Coronary thrombosis Cystic fibrosis Deafness or hearing loss Dementia Diabetes mellitus Drug abuse Dysphasia Fibrocystic disease of breast Gastroenteritis Glaucoma Headache disorder Hypercholesterolemia Hypertension Infertility Myocardial infarction Neoplasm Not obtainable due to adoption Osteoporosis Parkinson's disease Prostate cancer Respiratory disorder Seizure disorder Severe allergy Thyroid disease Tuberculosis Visual disorder Review of Systems Constitutional: see HPI EENTM: no symptoms reported Respiratory: short of breath Cardiovascular: chest pain Gastrointestinal: nausea Genitourinary: no symptoms reported Musculoskeletal: no symptoms reported Skin: no symptoms reported Psychiatric/Neurological: No Symptoms Reported All Other Systems Reviewed Negative Unless Noted: Yes Physical Exam Physical Exam Vital Signs Vital Sign - Last 12Hours 08/06/16 13:27 Temp 97.5 Pulse 82 Resp 16 B/P (MAP) 138/70 Pulse Ox 98 O2 Delivery Room Air Capillary Refill : Less Than 3 Seconds General Appearance: No Apparent Distress, WD/WN Eyes: Bilateral Eye Normal Inspection, Bilateral Eye PERRL HEENT: PERRL/EOMI, Normal ENT Inspection, Pharynx Normal Neck: Full Range of Motion, Normal Inspection, Non Tender, Supple, Carotid Bruit Respiratory: Chest Non Tender, Lungs Clear, Normal Breath Sounds, No Accessory Muscle Use, No Respiratory Distress Cardiovascular: Regular Rate, Rhythm, No Edema, No Gallop, No JVD, No Murmur, Normal Peripheral Pulses Gastrointestinal: Normal Bowel Sounds, No Organomegaly, No Pulsatile Mass, Non Tender, Soft Back: Normal Inspection, No CVA Tenderness, No Vertebral Tenderness Extremity: Normal Capillary Refill, Normal Inspection, Normal Range of Motion, Non Tender, No Calf Tenderness, No Pedal Edema Neurologic/Psychiatric: Alert, Oriented x3, No Motor/Sensory Deficits, Normal Mood/Affect Skin: Normal Color, Warm/Dry Lymphatic: No Adenopathy Results Results/Procedures Lab Laboratory Tests 08/06/16 13:40 08/07/16 03:03 Short Stay Diagnosis Discharge Diagnosis-Short Stay Admission Diagnosis Assessment: Chest pain with negative cardiac catheterization and negative CT scan for pulmonary embolism Prior smoker quit 2 years ago Hypothyroidism Final Discharge Diagnosis Assessment: Chest pain with negative cardiac catheterization and negative CT scan for pulmonary embolism Prior smoker quit 2 years ago Hypothyroidism Conclusion Plan Plan: Discharge home Follow up with [facility] Clinical Quality Measures AMI/AHF: ASA po Prior to arrival: Yes DVT/VTE Risk/Contraindication: Risk Factor Score Per Nursin RFS Level Per Nursing on Admit: 1=Low/No VTE PPX BELINDA CLIFTON DO Aug 07, 2016 10:28
[2016-08-07] MEDS ORDERED: MELOXICAM 7.5 MG (MOBIC) TABLET PO PRN (10:30)
[2016-08-07] MEDS ORDERED: ESTROGENS CONJ. CREAM 30 GM (PREMARIN) TUBE VG SCH (10:30)
[2016-08-07] MEDS ORDERED: HYDROcodone/APAP 10 MG/325 MG (LORTAB) TAB PO PRN (10:30)
[2016-08-08] MEDS ORDERED: NON-FORMULARY MEDICATION 1 EA EA (Levothyroxine Sodium 300 MCG) PO SCH (09:00)
--- NOTE | 2016-08-10 07:08 | ECHOCARDIOGRAPHY REPORT ---
DATE OF SERVICE: 08/07/2016 DATE OF SERVICE: 08/07/2016 ORDERING PHYSICIAN: Dr. Mckeon. PRIMARY PHYSICIAN: Dr. Reese. CLINICAL DIAGNOSIS: Chest pain. MEASUREMENTS: 1. Aortic root 3. 2. Left atrium 2.7. 3. LV diameter, diastolic, 4.1. 4. IVS thickness, diastolic, 0.8. 5. LVPW thickness, 1.1. DESCRIPTION: Two-dimensional echocardiography shows normal global left ventricular systolic function with normal regional wall motion. There is no significant pericardial effusion. The aortic, mitral, and tricuspid valve leaflets show good leaflet excursion. Aortic valve is trileaflet. Doppler imaging shows trivial tricuspid regurgitation. Pulmonary artery systolic pressure is estimated to be 25 mmHg. There is no Doppler evidence of any significant valvular stenosis. Good subcostal views are not available. The study is not adequate for evaluation for intracardiac shunt. Inferior vena cava appears to be of normal size and does exhibit inspiratory collapse. CONCLUSIONS: 1. Normal global left ventricular systolic function with a left ventricular ejection fraction of 60-65%. 2. Trivial tricuspid regurgitation. 3. No evidence of any significant valvular stenosis. 4. Pulmonary artery systolic pressure is estimated to be approximately 25 mmHg. Job ID: [id number] DocumentID: [id number] Dictated Date: 08/09/2016 14:40:51 Software Asset Manager Date: 08/09/2016 15:03:37 Dictated By: DILAN MCKEON MD, MA, FACP, FACC,
== END 2016-08-07 13:30 | disposition home or self-care (01) ==
LOC: EDUNIT# 13:27 → ER 13:29 → UNDOADMOB 15:37 → ICU 15:37 → CARD 15:37 → UNDODISOB 08-07 13:30 → CARD 08-07 13:30
PROVIDERS: ATTEND Internal Medicine Cardiovascular Disease
DX: R07.89 Other chest pain (principal); E89.0 Postprocedural hypothyroidism; Z87.891 Personal history of nicotine dependence; Z79.899 Other long term (current) drug therapy
CPT/HCPCS: 36221; 36415; 71010; 71275; 80048; 80053; 83735; 83874; 84484; 85025; 85027; 85610; 85730; 93005; 93041; 93306; 93458; 96374; 96375

== ENCOUNTER 2016-09-07 13:59 | Outpatient (CLI) | payer BC ==
[~2016-09-07] VITALS: Ht 170.2 cm; Wt 78.5 kg
[~2016-09-07 13:59] MED LIST changes: +EST30C VG; +HYDR-3820 PO; +LEVO300T5 PO; +MELO7.5T46 PO
[2016-09-07] MEDS ORDERED: BUPIVACAINE 0.25% 30 ML (SENSORCAINE) VIAL ONE (14:06)
[2016-09-07] MEDS ORDERED: TRIAMCINOLONE ACET (KENALOG-40) 40 MG/ML 1 ML VIAL ONE (14:06)
[2016-09-07 14:12] VITALS: BP 136/92
[2016-09-07 14:54] VITALS: BP 130/93
--- NOTE | 2016-09-07 16:02 | Pain Medicine-Procedure ---
Procedure Pre-Op/Post-Op Diagnosis Diagnosis: disc disorder with radiculopathy, lumbar Indications for Operation Low back pain Attending Surgeon Felicity Procedure Date of Service: September 07, 2016 Procedure: Lumbar Epidural Steroid Injection at the L5-S1 level under Fluoroscopic Guidance Procedure: Patient was identified in the holding area. After risks, benefits, and alternatives were discussed with the patient, informed consent was obtained. Patient was brought to the fluoroscopy suite and placed prone on the procedure room table. A time out was performed. Vital signs were monitored throughout the procedure. The patients low back was prepped and draped in the usual sterile fashion. The patients skin was anesthetized using 2% Lidocaine. A Tuohy needle was inserted and advanced to the L5-S1 epidural space under fluoroscopic guidance using the loss of resistance technique and intermittent projection of fluoroscopy. There was no paresthesia with needle placement. The needle position was confirmed in both the AP and lateral view. No contrast dye was utilized secondary to history of contrast dye allergy after negative aspiration for heme or CSF, 2 ml of 0.25% Bupivicaine, 2ml of preservative free normal saline, and 80mg of Kenalog was injected. The needle was removed and a sterile bandage was placed and the patient was transferred to the recovery area in stable condition. After a brief period of observation, patient was discharged to home with no new neurological deficits and no apparent complications. Complications None LEVY DOSS MD September 07, 2016 4:02 pm
== END 2016-09-07 14:55 | disposition home or self-care (01) ==
LOC: CARD 13:59
PROVIDERS: ATTEND Pain Medicine Pain Medicine
DX: M51.16 Intervertebral disc disorders with radiculopathy, lumbar region (principal); Z79.899 Other long term (current) drug therapy
CPT/HCPCS: 62323

== ENCOUNTER → 2016-11-20 | Outpatient (CLI) | payer BC ==
[~2016-11-20] MED LIST changes: +CATHETER FLUSH 10 ML SYR IV PRN; +IOHEXOL 350 MG/ML 100 ML (OMNIPAQUE 350) VIAL IV ONE
[2016-11-20 11:16] LABS: BLOOD UREA NITROGEN 17 MG/DL (7-18); BUN/CREATININE RATIO 25; CREATININE SERUM 0.67 MG/DL (0.60-1.30); GFR ESTIMATED > 60
--- NOTE | 2016-11-20 16:08 | Diagnostic Imaging Report ---
PROCEDURE: CT head with and without contrast. TECHNIQUE: Multiple contiguous axial images were obtained through the brain before and after the administration of intravenous contrast. INDICATION: Posterior right-sided headache for three weeks. 80 mL of Omnipaque 350 is administered intravenously. FINDINGS: There is beam hardening artifact at the level of the [place] posteriorly probably related to aneurysm clipping along the posterior circulation. The unenhanced phase demonstrates no intracranial hemorrhage. There is no brain edema or mass effect. There is no hydrocephalus. No extra-axial fluid collection or enhancing lesion is seen. Right craniotomy changes are seen in the temporal region. Otherwise, the visualized portions of calvarium, paranasal sinuses and orbits appear grossly unremarkable. 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 This obscures the area immediately adjacent to these clips. No definite abnormality seen otherwise. Dictated by: Dictated on workstation # [id number]
== END ==
LOC: RAD 10:39
PROVIDERS: ATTEND Internal Medicine
DX: R51 Headache (principal); Z86.79 Personal history of other diseases of the circulatory system; Z98.890 Other specified postprocedural states
CPT/HCPCS: 36415; 70470; 82565; 84520

== ENCOUNTER → 2017-01-25 | Outpatient (CLI) | payer BC ==
[~2017-01-25] MED LIST changes: +APIX5TAB PO; -CATHETER FLUSH 10 ML SYR IV PRN; -IOHEXOL 350 MG/ML 100 ML (OMNIPAQUE 350) VIAL IV ONE; +METO-270 PO; +RT-ALBUTEROL SULF 2.5 MG/3 ML PRE-MIX VIAL IH ONE
== END ==
LOC: RT 14:01
PROVIDERS: ATTEND Nurse Practitioner Family
DX: R07.89 Other chest pain (principal); I48.0 Paroxysmal atrial fibrillation; E03.8 Other specified hypothyroidism
CPT/HCPCS: 94060; 94640; 94726; 94729

== ENCOUNTER → 2017-03-18 | Outpatient (CLI) | payer BC ==
[~2017-03-18] MED LIST changes: -METO-270 PO; +METO-387 PO; -RT-ALBUTEROL SULF 2.5 MG/3 ML PRE-MIX VIAL IH ONE
--- NOTE | 2017-03-18 20:48 | Diagnostic Imaging Report ---
EXAMINATION: DEXA scan. INDICATION: Osteopenia. TECHNIQUE: Bone mineral density estimated based on dual energy radiography over the lumbar spine and femoral necks, was performed. FINDINGS: The lumbar spine T-score is -3.5. This is 11% decreased density measurement compared to 05/16/15. T-score over the left femoral neck is -2.0 and on the right side is -2.6. IMPRESSION: Osteoporosis. Dictated by: Dictated on workstation # [id number]
== END ==
LOC: RAD 09:21
PROVIDERS: ATTEND Family Medicine
DX: M81.0 Age-related osteoporosis without current pathological fracture (principal)
CPT/HCPCS: 77080

== ENCOUNTER → 2017-08-02 | Outpatient (CLI) | payer BC ==
[~2017-08-02] MED LIST changes: +NAPR-1071 PO; -NAPR500T PO
--- NOTE | 2017-08-02 10:06 | Diagnostic Imaging Report ---
INDICATION: Nelson quadrant pain TECHNIQUE: Multiple grayscale sonographic images were obtained of the right upper quadrant of the abdomen. CORRELATION STUDY: None FINDINGS: LIVER: There is uniform echotexture within the visualized portions of the liver. There is normal, hepatopedal direction of flow within the main portal vein. Liver length 13.2 cm. GALLBLADDER: Cholecystectomy. COMMON BILE DUCT: Nondilated at 8mm. PANCREAS: Obscured by the bowel gas. RIGHT KIDNEY: Measures 8.8 cm. No hydronephrosis. AORTA/IVC: Not well visualized. OTHER: None. IMPRESSION: 1. Postcholecystectomy changes. Unremarkable right upper quadrant ultrasound evaluation. Dictated by: Dictated on workstation # [id number]
== END ==
LOC: RAD 08:52
PROVIDERS: ATTEND Family Medicine
DX: R10.11 Right upper quadrant pain (principal); Z79.891 Long term (current) use of opiate analgesic; Z90.49 Acquired absence of other specified parts of digestive tract
CPT/HCPCS: 76705

== ENCOUNTER → 2017-08-05 | Outpatient (CLI) | payer BC ==
--- NOTE | 2017-08-05 18:40 | Diagnostic Imaging Report ---
INDICATION: Routine screening. COMPARISON: Comparison is made with prior studies from 02/11/2015 and 04/27/2012. The current study was also evaluated with a Computer Aided Detection (CAD) system. FINDINGS: Scattered fibroglandular densities are identified. The parenchymal pattern is stable. No dominant mass or malignant appearing microcalcifications are seen. The axillae are unremarkable. IMPRESSION: No mammographic features suspicious for malignancy are identified. ACR BI-RADS Category 1: Negative. Result letter will be mailed to the patient. Note: At least 10% of breast cancer is not imaged by mammography. Dictated by: Dictated on workstation # [id number]
== END ==
LOC: RAD 08-02 07:25
PROVIDERS: ATTEND Family Medicine
DX: Z12.31 Encounter for screening mammogram for malignant neoplasm of breast (principal)
CPT/HCPCS: 77067

== ENCOUNTER → 2017-08-16 | Outpatient (CLI) | payer BC | LOC: CARD 11:59 | PROVIDERS: ATTEND Nurse Practitioner Family | DX: I48.0 Paroxysmal atrial fibrillation (principal); I10 Essential (primary) hypertension; E03.9 Hypothyroidism, unspecified; R00.2 Palpitations | CPT/HCPCS: 93225; 93226 ==

== ENCOUNTER 2018-03-28 10:00 | Outpatient (CLI) | payer BC ==
[~2018-03-28 10:00] MED LIST changes: +HYDR-4226 PO
== END 2018-03-28 10:20 | disposition home or self-care (01) ==
LOC: SLEEP 10:00
PROVIDERS: ATTEND Nurse Practitioner Family
DX: G47.33 Obstructive sleep apnea (adult) (pediatric) (principal)

== ENCOUNTER 2018-07-10 16:25 | Emergency (ER) | payer BC ==
[~2018-07-10] VITALS: Ht 170.2 cm; Wt 86.2 kg
--- NOTE | 2018-07-10 16:38 | ED Dyspnea ---
General Stated Complaint: CONGESTION,SOA Source of Information: Patient Exam Limitations: No Limitations History of Present Illness Date Seen by Provider: Jul 10, 2018 Time Seen by Provider: 16:36 Initial Comments To ER per private vehicle from home with reports of chest congestion and shortness of breath for about a week. She was diagnosed with influenza 2 weeks ago. She followed up at [facility] on Wednesday, 3 days ago for this problem had chest x-ray and was told antibiotic did not help she states. She was given Tessalon Perles and a pro-air inhaler. Denies fevers. She is on Eliquis for atrial fibrillation. She reports lower abdominal cramping earlier today with grossly bloody stools which she has had before but never this bad. Timing/Duration: 1 Week, Increasing Severity: Moderate Modifying Factors: Worse With Activity; Improves With Rest Associated Symptoms: Cough Allergies and Home Medications Allergies Coded Allergies: Iodinated Contrast- Oral and IV Dye (Verified Allergy, Unknown, 07/10/18) diltiazem (Verified Allergy, Unknown, 07/10/18) Home Medications Apixaban 5 Mg Tablet, 5 MG PO BID Prescribed by: HOA JORDAN on 01/17/17 1041 Hydrocodone/Acetaminophen 1 Each Tablet, 1 TAB PO TID PRN for PAIN-MODERATE, ( Reported) Levothyroxine Sodium 200 Mcg Tablet, 400 MCG PO DAILY, (Reported) Metoprolol Succinate 25 Mg Tab.er.24h, 25 MG PO DAILY Prescribed by: HOA JORDAN on 01/17/17 1041 Patient Home Medication List Home Medication List Reviewed: Yes Review of Systems Review of Systems Constitutional: see HPI; No chills, No fever; weakness EENTM: see HPI Respiratory: see HPI, cough, short of breath Cardiovascular: see HPI; No chest pain, No edema, No syncope Gastrointestinal: abdominal pain; No nausea, No vomiting Genitourinary: see HPI Musculoskeletal: no symptoms reported Skin: no symptoms reported Psychiatric/Neurological: No Symptoms Reported Endocrine: No Symptoms Reported Past Lasmyci-Bexntg-Olnwso Hx Patient Social History Type Used: Cigarettes Former Smoker, Quit: Apr 19, 2012 2nd Hand Smoke Exposure: No Recent Hopitalizations: Yes (BRAIN AN 1995, BLADDER TIE UP , TVH WITH BSO 1999, GALLBLADDER 2005) Immunizations Up To Date Tetanus Booster (TDap): Unknown PED Vaccines UTD: No Date of Pneumonia Vaccine: Jan 31, 2013 Date of Influenza Vaccine: Jan 17, 2014 Seasonal Allergies Seasonal Allergies: No Past Medical History Surgeries: Yes (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) Bladder Surgery, Gallbladder, Hysterectomy Respiratory: Yes COPD Cardiac: No Neurological: No Reproductive Disorders: No 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 Sexually Transmitted Disease: No HIV/AIDS: No Genitourinary: No Gastrointestinal: Yes Irritable Bowel Fractures Endocrine: Yes (GRAVES DISEASE) Hypothyroidsim HEENT: No Cancer: No Psychosocial: No Integumentary: No Blood Disorders: No Adverse Reaction/Blood Tranf: No Family Medical History Arthritis 19 FATHER Cancer G8 SISTER 19 MOTHER Cardiovascular disease 19 FATHER Completed stroke 19 FATHER Family history: Cardiovascular disease 19 FATHER Kidney disease 19 FATHER No Family History of: AIDS Abdominal aortic aneurysm Harmon's disease Alcoholism Alzheimer's disease Aphasia Cancer of mouth Cataracts Colon cancer Congenital disease Coronary thrombosis Cystic fibrosis Deafness or hearing loss Dementia Diabetes mellitus Drug abuse Dysphasia Fibrocystic disease of breast Gastroenteritis Glaucoma Headache disorder Hypercholesterolemia Hypertension Infertility Myocardial infarction Neoplasm Not obtainable due to adoption Osteoporosis Parkinson's disease Prostate cancer Respiratory disorder Seizure disorder Severe allergy Thyroid disease Tuberculosis Visual disorder Cancer, CVA, Hypertension, Renal Disease Physical Exam Vital Signs Vital Signs - First Documented 07/10/18 07/10/18 16:29 18:03 Temp 98.5 Pulse 96 Resp 16 B/P (MAP) 100/81 (87) Pulse Ox 98 O2 Delivery Room Air Capillary Refill : Height, Weight, BMI Height: 5'7.00" Weight: 180lbs. 0.0oz. [id number]; 28.2 BMI Method:Stated General Appearance: No Apparent Distress, WD/WN, Other (tachypneic on arrival, improved with rest. Oxygen saturation greater than 95% all times.) HEENT: PERRL/EOMI, TMs Normal Respiratory: Normal Breath Sounds, No Accessory Muscle Use, No Respiratory Distress Cardiovascular: Regular Rate, Rhythm, Normal Peripheral Pulses Gastrointestinal: Normal Bowel Sounds, Non Tender, Soft Neurologic/Psychiatric: Alert, Oriented x3 Skin: Normal Color, Warm/Dry Progress/Results/Core Measures Results/Orders Lab Results Laboratory Tests Test 07/10/18 16:43 Range/Units White Blood Count 9.4 4.3-11.0 10^3/uL Red Blood Count 4.39 4.35-5.85 10^6/uL Hemoglobin 13.2 11.5-16.0 G/DL Hematocrit 40 35-52 % Mean Corpuscular Volume 92 80-99 FL Mean Corpuscular Hemoglobin 30 25-34 PG Mean Corpuscular Hemoglobin Concent 33 32-36 G/DL Red Cell Distribution Width 12.4 10.0-14.5 % Platelet Count 195 130-400 10^3/uL Mean Platelet Volume 10.6 H 7.4-10.4 FL Neutrophils (%) (Auto) 68 42-75 % Lymphocytes (%) (Auto) 20 12-44 % Monocytes (%) (Auto) 11 0-12 % Eosinophils (%) (Auto) 0 0-10 % Basophils (%) (Auto) 0 0-10 % Neutrophils # (Auto) 6.4 1.8-7.8 X 10^3 Lymphocytes # (Auto) 1.9 1.0-4.0 X 10^3 Monocytes # (Auto) 1.0 0.0-1.0 X 10^3 Eosinophils # (Auto) 0.0 0.0-0.3 10^3/uL Basophils # (Auto) 0.0 0.0-0.1 10^3/uL Sodium Level 138 135-145 MMOL/L Potassium Level 4.2 3.6-5.0 MMOL/L Chloride Level 107 98-107 MMOL/L Carbon Dioxide Level 19 L 21-32 MMOL/L Anion Gap 12 5-14 MMOL/L Blood Urea Nitrogen 20 H 7-18 MG/DL Creatinine 0.82 0.60-1.30 MG/DL Estimat Glomerular Filtration Rate > 60 BUN/Creatinine Ratio 24 Glucose Level 89 70-105 MG/DL Calcium Level 9.5 8.5-10.1 MG/DL Corrected Calcium 9.3 8.5-10.1 MG/DL Total Bilirubin 0.9 0.1-1.0 MG/DL Aspartate Amino Transf (AST/SGOT) 17 5-34 U/L Alanine Aminotransferase (ALT/SGPT) 11 0-55 U/L Alkaline Phosphatase 67 40-136 U/L Troponin I < 0.028 <0.028 NG/ML C-Reactive Protein High Sensitivity 4.29 H 0.00-0.50 MG/DL B-Type Natriuretic Peptide 45.6 <100.0 PG/ML Total Protein 7.5 6.4-8.2 GM/DL Albumin 4.2 3.2-4.5 GM/DL My Orders Orders - ANNA CRESPO INSULATION WORKER APPRENTICE Cbc With Automated Diff (07/10/18 16:33) Comprehensive Metabolic Panel (07/10/18 16:33) Hs C Reactive Protein (07/10/18 16:33) Red Cells Leukocytes Reduced (07/10/18 16:33) Iv Heplock-Insert (Order) (07/10/18 16:33) BNP (07/10/18 16:33) Troponin I (07/10/18 16:33) Ekg Tracing (07/10/18 16:33) Chest Pa/Lat (2 View) (07/10/18 16:33) Ct Abdomen/Pelvis Wo (07/10/18 16:33) Type And Screen (07/10/18 16:33) Albuterol/Ipra Inhalation Soln (Duoneb I (07/10/18 17:45) Lorazepam Injection (Ativan Injection) (07/10/18 17:45) Svn Small Volume Nebulizer (07/10/18 17:37) Medications Given in ED Current Medications Medications Dose Ordered Sig/Mickie Route Start Time Stop Time Status Last Admin Dose Admin Albuterol/ Ipratropium 3 ml ONCE ONCE INH 07/10/18 17:45 07/10/18 17:46 DC 07/10/18 18:03 3 ML Lorazepam 0.5 mg ONCE PRN IVP 07/10/18 17:45 07/10/18 18:04 0.5 MG Vital Signs/I&O 07/10/18 07/10/18 16:29 18:03 Temp 98.5 Pulse 96 Resp 16 B/P (MAP) 100/81 (87) Pulse Ox 98 96 O2 Delivery Room Air Departure Communication (Admissions) Family Conversation [id number]-I discussed with her the normal labs. Have no concern about ovarian embolism since she is on Eliquis. Asked her if she is ever anxious and she states "always". She was wheezing in the right basal we'll order a DuoNeb and give her a bit of Ativan and see if either of these to help. She is not anemic. CT abdomen and pelvis fails to reveal any thickening of the bowel wall that would suggest inflammatory or infectious condition that may contribute to her report of rectal bleeding. I did a rectal exam with our patient healthcare market consultant Jennifer at the bedside. There is no blood at the rectum is visible, no fissure or hemorrhoid. NAME: LUCERO HORNER [facility] REC#: [id number] PT STATUS: REG ER : 1960 PHYSICIAN: ANNA CRESPO INSULATION WORKER APPRENTICE ADMIT DATE: 07/10/18/ER Draft Date of Exam:07/10/18 CT ABDOMEN/PELVIS WO PROCEDURE: CT abdomen and pelvis without contrast. TECHNIQUE: Multiple contiguous axial images were obtained through the abdomen and pelvis without the use of intravenous contrast. Auto Exposure Controls were utilized during the CT exam to meet ALARA standards for radiation dose reduction. INDICATION: Sharp abdominal pain. COMPARISON: 01/06/2016. FINDINGS: There has been development of mild infiltrate and/or atelectasis in the right lung base. The left lung base is clear. The liver appears normal. The gallbladder is absent. Bile ducts are not dilated. The pancreas and spleen are normal. The adrenal glands are normal. Kidneys appear normal. The stomach and small bowel are not distended. No evidence of bowel wall thickening. The colon shows normal stool and gas pattern. The appendix is not visualized. There is no evidence of fluid or edema surrounding the cecum or terminal ileum. No evidence of appendicolith. No evidence of constipation. Very little stool noted in the distal colon. No evidence of diverticulitis. Uterus is absent. There are no pelvic masses. Bladder is not distended. There is no free air or free fluid. No intra-abdominal adenopathy. IMPRESSION: No acute abdominal findings are demonstrated. No evidence of abnormal inflammatory bowel changes. No masses. No significant changes have occurred when compared with 01/06/2016. Dictated on workstation # [id number] Dict: 07/10/18 1705 Trans: 07/10/18 1717 [id number] [id number] Interpreted by: MALOU HUSSEIN MD Electronically signed by: Netta Primary Impression: Dyspnea Qualified Codes: R06.09 - Other forms of dyspnea Additional Impression: Rectal bleeding Disposition: 01 HOME, SELF-CARE Condition: Stable Departure-Patient Inst. Decision time for Depature: 17:30 Referrals: EZEKIEL LERMA MD (PCP/Family) Primary Care Physician Patient Instructions: Shortness of Breath (Dyspnea) Add. Discharge Instructions: 1. Return to ER for any concerns 2. Follow-up with your doctor next week. Call tomorrow to make an appointment to be seen within 48 hours for recheck. 3. Scripts Azithromycin (Azithromycin) 250 Mg Tablet 250 MG PO UD, #6 TAB TAKE 2 TABLETS ON DAY ONE THEN TAKE 1 TABLET DAILY FOR FOUR MORE DAYS Prov: ANNA CRESPO APRN 07/10/18 Prednisone (Prednisone) 20 Mg Tab 40 MG PO DAILY, #8 TAB Prov: ANNA CRESPO APRN 07/10/18 Copy Copies To 1: EZEKIEL LERMA MD, PETER J APRN Jul 10, 2018 16:38
[2018-07-10 16:52] LABS: BASOPHILS % (AUTO) 0 % (0-10); EOSINOPHILS % (AUTO) 0 % (0-10); HEMATOCRIT 40 % (35-52); HEMOGLOBIN 13.2 G/DL (11.5-16.0); LYMPHOCYTES # (AUTO) 1.9 X 10^3 (1.0-4.0); LYMPHOCYTES % (AUTO) 20 % (12-44); MEAN CORPUSCULAR HEMOGLOBIN 30 PG (25-34); MEAN CORPUSCULAR HGB CONC 33 G/DL (32-36); MEAN CORPUSCULAR VOLUME 92 FL (80-99); MEAN PLATELET VOLUME 10.6 FL (7.4-10.4); MONOCYTES % (AUTO) 11 % (0-12); NEUTROPHILS # (AUTO) 6.4 X 10^3 (1.8-7.8); NEUTROPHILS % (AUTO) 68 % (42-75); PLATELET COUNT 195 10^3/uL (130-400); RED CELL DISTRIBUTION WIDTH 12.4 % (10.0-14.5); WHITE BLOOD COUNT 9.4 10^3/uL (4.3-11.0)
--- NOTE | 2018-07-10 17:01 | Diagnostic Imaging Report ---
INDICATION: Shortness of breath COMPARISON: 01/16/2017 FINDINGS: Frontal and lateral views the chest demonstrate clear lungs bilaterally. The heart size is normal. There is no pneumothorax. Osseous structures are normal. IMPRESSION: No acute findings. Normal chest. Dictated by: Dictated on workstation # [id number]
[2018-07-10 17:12] LABS: ALANINE AMINOTRANSFERASE 11 U/L (0-55); ALBUMIN 4.2 GM/DL (3.2-4.5); ALKALINE PHOSPHATASE 67 U/L (40-136); BILIRUBIN,TOTAL 0.9 MG/DL (0.1-1.0); BUN/CREATININE RATIO 24; CALCIUM 9.5 MG/DL (8.5-10.1); CARBON DIOXIDE 19 MMOL/L (21-32); CHLORIDE 107 MMOL/L (98-107); CREATININE SERUM 0.82 MG/DL (0.60-1.30); GFR ESTIMATED > 60; GLUCOSE 89 MG/DL (70-105); POTASSIUM 4.2 MMOL/L (3.6-5.0); SODIUM 138 MMOL/L (135-145); TOTAL PROTEIN 7.5 GM/DL (6.4-8.2)
--- NOTE | 2018-07-10 17:17 | Diagnostic Imaging Report ---
PROCEDURE: CT abdomen and pelvis without contrast. TECHNIQUE: Multiple contiguous axial images were obtained through the abdomen and pelvis without the use of intravenous contrast. Auto Exposure Controls were utilized during the CT exam to meet ALARA standards for radiation dose reduction. INDICATION: Sharp abdominal pain. COMPARISON: 01/06/2016. FINDINGS: There has been development of mild infiltrate and/or atelectasis in the right lung base. The left lung base is clear. The liver appears normal. The gallbladder is absent. Bile ducts are not dilated. The pancreas and spleen are normal. The adrenal glands are normal. Kidneys appear normal. The stomach and small bowel are not distended. No evidence of bowel wall thickening. The colon shows normal stool and gas pattern. The appendix is not visualized. There is no evidence of fluid or edema surrounding the cecum or terminal ileum. No evidence of appendicolith. No evidence of constipation. Very little stool noted in the distal colon. No evidence of diverticulitis. Uterus is absent. There are no pelvic masses. Bladder is not distended. There is no free air or free fluid. No intra-abdominal adenopathy. IMPRESSION: No acute abdominal findings are demonstrated. No evidence of abnormal inflammatory bowel changes. No masses. No significant changes have occurred when compared with 01/06/2016. Dictated by: Dictated on workstation # [id number]
[2018-07-10] MEDS ORDERED: RT-ALBUTEROL/IPRATROPIUM 3 ML (DUONEB) VIAL INH ONE (17:45)
[2018-07-10] MEDS ORDERED: LORazepam INJ 2 MG/ML (ATIVAN) VIAL IVP PRN (17:45)
[2018-07-10] MEDS ORDERED: RX-ALBUTEROL NEB 2.5 MG/3 ML PACK #5 IH STA (18:42)
[2018-07-10] MEDS ORDERED: PRD20T PO (18:43)
[2018-07-10] MEDS ORDERED: AZIT250T12 PO (18:43)
[2018-07-10 18:57] VITALS: BP 113/72
== END 2018-07-10 18:57 | disposition home or self-care (01) ==
LOC: EDUNIT# 16:25 → ER 16:26
DX: R06.00 Dyspnea, unspecified (principal); K62.5 Hemorrhage of anus and rectum; I48.91 Unspecified atrial fibrillation; J44.9 Chronic obstructive pulmonary disease, unspecified; K58.9 Irritable bowel syndrome, unspecified; E03.9 Hypothyroidism, unspecified; E05.00 Thyrotoxicosis with diffuse goiter without thyrotoxic crisis or storm; Z87.09 Personal history of other diseases of the respiratory system; Z90.710 Acquired absence of both cervix and uterus; Z82.49 Family history of ischemic heart disease and other diseases of the circulatory system; Z91.041 Radiographic dye allergy status; Z88.8 Allergy status to other drugs, medicaments and biological substances; Z79.01 Long term (current) use of anticoagulants; Z87.891 Personal history of nicotine dependence; Z98.890 Other specified postprocedural states
CPT/HCPCS: 36415; 71046; 74176; 80053; 83880; 84484; 85025; 86141; 86850; 86900; 86901; 86920; 93005; 94640; 96374

== ENCOUNTER 2018-09-22 02:16 | Emergency (ER) | payer BC ==
[~2018-09-22] VITALS: Ht 170.2 cm; Wt 83.0 kg
[~2018-09-22 02:16] MED LIST changes: +AZIT250T12 PO
--- OUTSIDE RECORDS SUMMARY | 2018-09-22 02:22 | XMS REPORT | Clinical Summary ---
Author Author [facility] Organization [facility] Address Unknown Phone Unavailable Care Team Providers Care Green Belt Name Role Phone Belinda Reese DO PCP Source Comments Some departments are not documenting in the electronic medical record. If you d o not see the information that you expected, contact Release of Information in [facility] [employer] Information Management department at [phone] for further assistan ce in locating additional records.[facility] Allergies Not on File Medications Not on file Active Problems Not on file Social History Date Tobacco Use Types Packs/Day Years Used Never Assessed Sex Assigned at Date Recorded Not on file Industry Job Start Date Occupation Not on file Not on file Not on file Travel End Travel History Travel Start No recent travel history available. Last Filed Vital Signs Not on file Plan of Treatment Health Maintenance Due Date Last Done Comments HEPATITIS C SCREENING 1960 PHYSICAL (COMPREHENSIVE) 1968 EXAM HIV SCREENING 1976 DTAP/TDAP VACCINES (1 - 12/15/1979 Tdap) CERVICAL CANCER SCREENING 12/15/1991 BREAST CANCER SCREENING 2001 COLORECTAL CANCER 12/15/2011 SCREENING SHINGLES RECOMBINANT 12/15/2011 VACCINE (1 of 2) INFLUENZA VACCINE 01/17/2019 Results Not on filefrom Last 3 Months
--- OUTSIDE RECORDS SUMMARY | 2018-09-22 02:24 | XMS REPORT ---
Author Author Migration, Doctor Organization [facility] Address Unknown Phone Unavailable Care Team Providers Care Triple Valve Tester Name Role Phone Migration, Doctor Unavailable Unavailable PROBLEMS Type Condition ICD9-CM Code [id number] Code Onset Dates Condition Status SNOMED Code Problem Osteoporosis M81.0 Active 63319154 Problem Fibromyalgia M79.7 Active 76089587 Problem Unspecified abdominal pain R10.9 Active 280088454 Problem Chronic tension-type headache, not intractable G44.229 Active 120332147 Problem Chronic pain syndrome G89.4 Active 697460408 Problem Hypothyroidism, unspecified hypothyroidism type E03.9 Active 74036656 Problem Pancytopenia D61.818 Active 281872499 Problem Right sided sciatica M54.31 Active 94966945 Problem RUQ abdominal pain R10.11 Active 190176740 Problem Vitamin D deficiency E55.9 Active 61778757 Problem Chronic gastritis without bleeding, unspecified gastritis type K29.50 Active 5891165 Problem Vaginal atrophy N95.2 Active 992303871 Problem Hot flashes N95.1 Active 930007663 Problem Primary insomnia F51.01 Active 7580088 Problem Major depression, recurrent F33.9 Active 20009903 Problem Plantar fasciitis M72.2 Active 614791032 Problem Low back pain M54.5 Active 825977628 Problem Trigger point with back pain M54.9 Active 029232614 Problem Polyneuropathy associated with underlying disease G63 Active 056714401 Problem Drug induced constipation K59.03 Active 202472112780367 Problem Chronic prescription opiate use Z79.891 Active 115643951 Problem Porokeratosis Q82.8 Active 273423662 Problem Leukopenia, unspecified type D72.819 Active 99409897 Problem Allergic rhinitis, unspecified allergic rhinitis type J30.9 Active 28515860 Problem Pure hypercholesterolemia E78.00 Active 144033610 Problem Chronic obstructive pulmonary disease, unspecified COPD type J44.9 Active 78690364 Problem History of hepatitis C Z86.19 Active 37511798616185 Problem Other constipation K59.09 Active 355900850 Problem Allergy to intravenous contrast Z91.041 Active 229621701 Problem 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 Active 558556768 Problem Atrial fibrillation, unspecified type I48.91 Active 96446859 ALLERGIES No Information ENCOUNTERS Encounter Location Date Diagnosis [place] [address] [address] Sep, [place] [address] [address] August, Atrial fibrillation, unspecified type I48.91 [place] [address] [address] Jul, Atrial fibrillation, unspecified type I48.91 [place] [address] [address] Jul, Chronic pain syndrome G89.4 [place] [address] [address] Jun, Chronic pain syndrome G89.4 [facility] [address] [address] Jun, Acute bronchitis, unspecified organism J20.9 [place] [address] [address] Jun, Hypothyroidism, unspecified hypothyroidism type E03.9 [place] [address] [address] Jun, Chronic obstructive pulmonary disease, unspecified COPD type J44.9 ; Chronic pain syndrome G89.4 ; Hypothyroidism, unspecified hypothyroidism type E03.9 ; Allergic rhinitis, unspecified allergic rhinitis type J30.9 and Osteoporosis M81.0 [place] [address] [address] Jun, [facility] [address] [address] May, Influenza A J10.1 [place] [address] [place] [id number] [place] [address] May, Chronic pain syndrome G89.4 [place] [address] [address] Apr, Chronic pain syndrome G89.4 [facility] [address] [address] Apr, Acute maxillary sinusitis J01.00 and Sore throat J02.9 [place] [address] [address] Apr, Chronic pain syndrome G89.4 [place] [address] [address] Mar, Trochanteric bursitis of both hips M70.61 [place] [address] [address] Mar, Chronic pain syndrome G89.4 [facility] [address] [place] [id number] [place] [address] Feb, Sore throat and laryngitis J06.0 ; Acute streptococcal pharyngitis J02.0 ; Dog scratch W54.8XXA and Cellulitis L03.90 [place] [address] [place] [id number] [place] [address] Feb, Acute maxillary sinusitis J01.00 [place] [address] [place] [id number] [place] [address] Feb, Hypothyroidism, unspecified hypothyroidism type E03.9 [place] [address] [place] [id number] [place] [address] Feb, Chronic pain syndrome G89.4 [place] [address] [place] [id number] [place] [address] Jan, Fibromyalgia M79.7 ; Chronic pain syndrome G89.4 ; Low back pain M54.5 ; Hypothyroidism, unspecified hypothyroidism type E03.9 ; Leukopenia, unspecified type D72.819 ; Pure hypercholesterolemia E78.00 ; Right upper quadrant pain R10.11 ; Encounter for immunization Z23 ; Chronic gastritis without bleeding, unspecified gastritis type K29.50 ; Chronic prescription opiate use Z79.891 and BMI 28.0-28.9,adult Z68.28 [place] [address] [address] Jan, Chronic pain syndrome G89.4 [place] [address] [address] Dec, Chronic pain syndrome G89.4 [place] [address] [address] Nov, Onychocryptosis L60.0 [place] [address] [address] Nov, Chronic pain syndrome G89.4 [place] [address] [address] Nov, Trochanteric bursitis of both hips M70.61 [place] [address] [address] Oct, Hypothyroidism, unspecified hypothyroidism type E03.9 and Atrial fibrillation, unspecified type I48.91 [place] [address] [address] Oct, Fibromyalgia M79.7 ; Chronic pain syndrome G89.4 ; Hypothyroidism, unspecified hypothyroidism type E03.9 ; Overweight (BMI 25.0-29.9) E66.3 and Atrial fibrillation, unspecified type I48.91 [place] [address] [address] Oct, Chronic pain syndrome G89.4 [place] [address] [address] Sep, Chronic pain syndrome G89.4 [place] [address] [place] [address] August, Somatic dysfunction of lumbar region M99.03 and Somatic dysfunction of pelvis region M99.05 [place] [address] [place] [id number] [place] [address] August, Chronic pain syndrome G89.4 [place] [address] [place] [id number] [place] [address] Jul, Trochanteric bursitis of left hip M70.62 and Trochanteric bursitis, right hip M70.61 [place] [address] [place] [id number] [place] [address] Jul, [place] [address] [address] Jul, Chronic pain syndrome G89.4 [place] [address] [place] [id number] [place] [address] Jul, Hypothyroidism, unspecified hypothyroidism type E03.9 [place] [address] [place] [id number] [place] [address] Jul, Hypothyroidism, unspecified hypothyroidism type E03.9 [place] [address] [place] [id number] [place] [address] Jul, Chronic tension-type headache, not intractable G44.229 ; Atrial fibrillation, unspecified type I48.91 ; Chronic pain syndrome G89.4 ; Hypothyroidism, unspecified hypothyroidism type E03.9 ; Pancytopenia D61.818 ; History of hepatitis C Z86.19 ; Vaginal atrophy N95.2 ; RUQ abdominal pain R10.11 ; Chronic prescription opiate use Z79.891 ; Osteoporosis M81.0 and Screening for breast cancer Z12.31 [place] [address] [place] [id number] [place] [address] Jun, [place] [address] [place] [id number] [place] [address] May, [place] [address] [place] [address] May, [facility] [address] [place] [id number] [place] [address] May, [facility] [address] [place] [address] Apr, [facility] [address] [place] [id number] [place] [address] Apr, Hypothyroidism, unspecified hypothyroidism type E03.9 [facility] [address] [place] [id number] [place] [address] Apr, Hypothyroidism, unspecified hypothyroidism type E03.9 and Leukopenia, unspecified type D72.819 [place] [address] [place] [id number] [place] [address] Mar, [place] [address] [place] [id number] [place] [address] Mar, Leukopenia, unspecified type D72.819 [facility] [address] [place] [id number] [place] [address] Mar, Hypothyroidism, unspecified hypothyroidism type E03.9 and Low hemoglobin D64.9 [place] [address] [address] Mar, Hypothyroidism, unspecified hypothyroidism type E03.9 [place] [address] [place] [address] Mar, Osteoporosis M81.0 ; Low hemoglobin D64.9 and Hypothyroidism, unspecified hypothyroidism type E03.9 [place] [address] [place] [address] Mar, Hypothyroidism, unspecified hypothyroidism type E03.9 ; Bilirubin in urine R82.2 and Pancytopenia D61.818 [facility] [address] [address] Feb, [facility] [address] [place] [id number] [place] [address] 18 Feb, 2017 Cough R05 and Bronchitis J40 [facility] [address] [address] 14 Feb, 2017 Other viral agents as the cause of diseases classified elsewhere B97.89 and Acute upper respiratory infection, unspecified J06.9 [place] [address] [address] Feb, Fibromyalgia M79.7 ; Chronic pain syndrome G89.4 ; Hypothyroidism, unspecified hypothyroidism type E03.9 ; Primary insomnia F51.01 ; Osteoporosis M81.0 ; Vision abnormalities H53.9 ; Pancytopenia D61.818 ; BMI 28.0-28.9,adult Z68.28 and Encounter for immunization Z23 [address] [address] Feb, Neuroma D36.10 and Capsulitis of right foot M77.51 [place] [address] [place] [id number] [place] [address] Feb, [place] [address] [address] Feb, Hypothyroidism, unspecified hypothyroidism type E03.9 [place] [address] [place] [id number] [place] [address] Jan, [place] [address] [address] Jan, Atrial fibrillation, unspecified type I48.91 [place] [address] [place] [id number] [place] [address] Jan, [place] [address] [address] Jan, Fibromyalgia M79.7 ; Atrial fibrillation, unspecified type I48.91 ; Pain of left hand M79.642 ; Pain in right hand M79.641 ; Chronic prescription opiate use Z79.891 ; Chronic pain syndrome G89.4 ; Elevated fasting glucose R73.01 and Hypothyroidism, unspecified hypothyroidism type E03.9 [place] [address] [address] Jan, [facility] [address] [place] [id number] [place] [address] Dec, Trochanteric bursitis of both hips M70.61 [place] [address] [address] Dec, [place] [address] [address] Dec, [place] [address] [address] Nov, [place] [address] [address] Nov, Unilateral headache R51 [place] [address] [address] Nov, [place] [address] [address] Oct, Unilateral headache R51 ; 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 and Allergy to intravenous contrast Z91.041 [place] [address] [place] [id number] [place] [address] Oct, [facility] [address] [place] [id number] [place] [address] Oct, [facility] [address] [place] [id number] [place] [address] Sep, Hypothyroidism, unspecified hypothyroidism type E03.9 [facility] [address] [address] Sep, Hypothyroidism, unspecified hypothyroidism type E03.9 and Bilirubin in urine R82.2 [place] [address] [address] Sep, Trochanteric bursitis of both hips M70.61 [facility] [address] [address] Sep, Hypothyroidism, unspecified hypothyroidism type E03.9 ; Dysuria R30.0 ; Chronic tension-type headache, not intractable G44.229 and Drug induced constipation K59.03 [facility] [address] [address] Sep, [facility] [address] [address] Sep, [facility] [address] [address] August, [facility] [address] [address] Jul, [facility] [address] [address] Jul, Trochanteric bursitis of right hip M70.61 [facility] [address] [address] Jul, Hypothyroidism, unspecified hypothyroidism type E03.9 [facility] [address] [place] [id number] [place] [address] Jul, Fibromyalgia M79.7 ; Chronic pain syndrome G89.4 ; Hypothyroidism, unspecified hypothyroidism type E03.9 and Other constipation K59.09 [facility] [address] [place] [id number] [place] [address] Jun, Swollen tonsil J35.1 and Strep throat J02.0 [facility] [address] [place] [id number] [place] [address] Jun, [facility] [address] [place] [address] [place] [address] Jun, Acute maxillary sinusitis J01.00 [facility] [address] [place] [address] [place] [address] Jun, Hypothyroidism, unspecified hypothyroidism type E03.9 [place] [address] [place] [address] [place] [address] Jun, Chronic pain syndrome G89.4 ; Fibromyalgia M79.7 ; Hypothyroidism, unspecified hypothyroidism type E03.9 and Chronic prescription opiate use Z79.891 [place] [address] [place] [address] [place] [address] May, [place] [address] [place] [address] [place] [address] Apr, Hypothyroidism, unspecified hypothyroidism type E03.9 [place] [address] [place] [address] [place] [address] Apr, [place] [address] [place] [address] [place] [address] Apr, Lipid screening Z13.220 and Hypothyroidism, unspecified hypothyroidism type E03.9 [place] [address] [place] [address] [place] [address] Apr, [place] [address] [place] [address] [place] [address] Mar, Trochanteric bursitis of both hips M70.61 [place] [address] [place] [address] Mar, [place] [address] [place] [address] [place] [address] Mar, Plantar fasciitis M72.2 and Porokeratosis Q82.8 [place] [address] [address] Feb, Lipid screening Z13.220 ; Vitamin D deficiency E55.9 and Hypothyroidism, unspecified hypothyroidism type E03.9 [place] [address] [place] [address] [place] [address] Feb, Chronic pain syndrome G89.4 ; Hypothyroidism, unspecified hypothyroidism type E03.9 ; Pancytopenia D61.818 ; Vaginal atrophy N95.2 ; Chronic gastritis without bleeding, unspecified gastritis type K29.50 ; Vitamin D deficiency E55.9 ; Chronic prescription opiate use Z79.891 ; Adverse effect of other opioids, initial encounter T40.2X5A ; Drug induced constipation K59.03 ; Lipid screening Z13.220 and Encounter for immunization Z23 [facility] [address] [address] Feb, [facility] [address] [address] Feb, Ingrown toenail L60.0 [facility] [address] [address] Jan, [place] [address] [address] Jan, Trochanteric bursitis of both hips M70.61 [facility] [address] [address] Jan, [facility] [address] [address] Jan, [facility] [address] [place] [id number] [place] [address] Jan, [facility] [address] [place] [address] [place] [address] Jan, Right sided sciatica M54.31 [facility] [address] [place] [address] [place] [address] Dec, Onychomycosis B35.1 [facility] [address] [place] [address] [place] [address] Dec, [facility] [address] [place] [address] [place] [address] Dec, [facility] [address] [place] [address] [place] [address] Dec, [facility] [address] [place] [address] [place] [address] Dec, Osteoarthritis of right hip, unspecified osteoarthritis type M16.11 and Bursitis of right hip M70.71 [place] [address] [place] [address] [place] [address] Nov, [place] [address] [place] [address] [place] [address] Nov, [place] [address] [place] [address] [place] [address] Nov, [place] [address] [place] [address] [place] [address] Nov, Hypothyroidism, unspecified hypothyroidism type E03.9 ; Vitamin D deficiency E55.9 and History of hepatitis C Z86.19 [place] [address] [place] [address] [place] [address] Nov, Right upper quadrant pain R10.11 ; History of hepatitis C Z86.19 and Low back pain M54.5 [place] [address] [place] [address] [place] [address] Oct, Trochanteric bursitis, right hip M70.61 [place] [address] [place] [address] [place] [address] Oct, [facility] [address] [place] [address] [place] [address] Oct, [place] [address] [place] [address] [place] [address] Oct, Trochanteric bursitis of both hips M70.61 and Right sided sciatica M54.31 [place] [address] [place] [address] [place] [address] Oct, Trochanteric bursitis of both hips M70.61 [place] [address] [place] [address] [place] [address] 14 Oct, 2015 RUQ abdominal pain R10.11 [place] [address] [place] [address] [place] [address] 13 Oct, 2015 Sciatic leg pain M54.30 [place] [address] [place] [address] [place] [address] 11 Oct, 2015 RUQ abdominal pain R10.11 [place] [address] [place] [address] [place] [address] 07 Oct, 2015 RUQ abdominal pain R10.11 ; History of hepatitis C Z86.19 and Trigger point with back pain M54.9 [place] [address] [place] [address] [place] [address] Sep, [place] [address] [address] Sep, Right sided sciatica M54.31 [place] [address] [place] [address] [place] [address] Sep, Hypothyroidism, unspecified hypothyroidism type E03.9 and Vitamin D deficiency E55.9 [place] [address] [place] [address] [place] [address] Sep, Plantar fasciitis M72.2 and Porokeratosis Q82.8 [place] [address] [place] [address] [place] [address] Sep, Hypothyroidism, unspecified hypothyroidism type E03.9 ; Chronic pain syndrome G89.4 ; Polyneuropathy associated with underlying disease G63 and Vitamin D deficiency E55.9 [place] [address] [address] August, [place] [address] [place] [address] [place] [address] Jul, Plantar fasciitis M72.2 [place] [address] [place] [address] 28 Jul, 2015 Trochanteric bursitis, right hip M70.61 [place] [address] [address] 07 Jul, 2015 Hypothyroidism, unspecified hypothyroidism type E03.9 [place] [address] [address] 06 Jul, 2015 Hypothyroidism, unspecified hypothyroidism type E03.9 ; Chronic pain syndrome G89.4 and Polyneuropathy associated with underlying disease G63 [place] [address] [address] 10 Jun, 2015 Trochanteric bursitis of both hips M70.61 [place] [address] [address] 08 Jun, 2015 Vitamin D deficiency E55.9 ; Osteoporosis M81.0 ; Low back pain M54.5 and Plantar fasciitis M72.2 [place] [address] [address] 26 May, 2015 Vitamin D deficiency E55.9 and Hypothyroidism, unspecified hypothyroidism type E03.9 [place] [address] [place] [address] [place] [address] 23 May, 2015 Acute maxillary sinusitis J01.00 [place] [address] [address] 18 May, 2015 Osteoporosis M81.0 and Hypothyroidism, unspecified hypothyroidism type E03.9 [place] [address] [place] [address] [place] [address] 16 May, 2015 Osteoporosis M81.0 [place] [address] [address] 15 May, 2015 [place] [address] [address] Apr, [place] [address] [address] Apr, Trochanteric bursitis of both hips M70.61 [place] [address] [place] [address] [place] [address] Apr, Hypothyroidism, unspecified hypothyroidism type E03.9 [place] [address] [place] [address] [place] [address] Apr, Chronic pain syndrome G89.4 ; Bilateral low back pain with sciatica, sciatica laterality unspecified M54.40 ; Pain in right hip M25.551 ; Pain in left hip M25.552 ; Chronic prescription opiate use Z79.899 ; Primary insomnia F51.01 and Hypothyroidism, unspecified hypothyroidism type E03.9 [place] [address] [place] [address] [place] [address] Mar, [place] [address] [address] Feb, [place] [address] [address] Feb, Chronic pain syndrome G89.4 and Major depression F32.9 [place] [address] [address] Feb, Fatigue R53.83 [place] [address] [place] [address] [place] [address] Feb, History of fracture Z87.81 [place] [address] [place] [address] [place] [address] Feb, Major depression, recurrent F33.9 and Generalized anxiety disorder F41.1 [place] [address] [address] Feb, [place] [address] [place] [address] [place] [id number] Jan, Hypothyroidism, unspecified hypothyroidism type E03.9 [place] [address] [id number] Jan, Abdominal pain R10.9 and Hypothyroidism, unspecified hypothyroidism type E03.9 [place] [address] [place] [id number] [place] [id number] Jan, Abdominal pain R10.9 [place] [address] [place] [id number] [place] [id number] Jan, Hypothyroidism, unspecified hypothyroidism type E03.9 [place] [address] [place] [id number] [place] [id number] Jan, [place] [address] [phone] Jan, 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 and Hypothyroidism, unspecified hypothyroidism type E03.9 [place] [address] [address] Jan, 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 ; Abdominal pain R10.9 ; Dyspareunia N94.1 ; Encounter for immunization Z23 ; History of fracture Z87.81 ; Fatigue R53.83 ; Throat fullness R68.89 ; Bruises easily R23.8 ; Hot flashes N95.1 ; Depression F32.9 and Vaginal atrophy N95.2 [place] [address] [place] [id number] [place] [id number] Jan, Hypothyroidism, unspecified hypothyroidism type E03.9 [place] [id number] [place] [address] Jan, Unspecified abdominal pain R10.9 ; Chronic obstructive pulmonary disease, unspecified COPD type J44.9 ; Allergic rhinitis, unspecified allergic rhinitis type J30.9 ; Chronic pain syndrome G89.4 ; Hypothyroidism, unspecified hypothyroidism type E03.9 ; Chest pain, unspecified chest pain type R07.9 and Plantar fasciitis M72.2 [place] [id number] [place] [address] Jan, Trochanteric bursitis of both hips M70.61 [facility] [id number] [place] [address] Dec, [facility] [id number] [place] [address] Nov, [facility] [id number] [place] [address] Nov, [facility] [address] [address] Nov, Constipation 564.00 [facility] [address] [address] Oct, Chronic pain 338.29 and Hypothyroidism 244.9 [facility] [id number] [place] [address] Oct, [facility] [address] [address] Sep, [facility] [id number] [place] [address] Sep, [facility] [id number] [place] [address] Sep, [facility] [id number] [place] [address] Sep, [facility] [id number] [place] [address] Sep, [facility] [id number] [place] [address] Sep, [facility] [address] [address] Sep, COPD exacerbation 491.21 ; Chronic pain 338.29 ; Hypothyroidism 244.9 and Pancytopenia 284.19 [facility] [address] [address] August, [facility] [place] [facility] [address] [id number] [place] [address] Jul, [facility] [place] [facility] [address] [facility] [id number] [place] [address] Jul, [facility] [place] [facility] [address] [facility] [id number] [place] [address] Jun, [facility] [place] [facility] [address] [facility] [id number] [place] [address] Jun, [facility] [place] [facility] [address] [facility] [id number] [place] [address] Jun, [facility] [place] [facility] [address] [facility] [id number], [place] [address] Jun, [facility] [place] [facility] [address] [facility] [id number] [place] [address] Jun, [facility] [place] [facility] [address] [facility] [id number], [place] [address] May, [facility] [place] [facility] [address] [facility] [id number], [place] [address] May, [facility] [place] [facility] [address] [facility] [id number], [place] [address] May, [facility] [place] [facility] [address] [facility] [id number], [place] [address] May, [facility] [place] [facility] [address] [facility] [id number], [place] [address] May, [facility] [place] [facility] [address] [facility] [id number][place] [address] May, [facility] [place] [facility] [address] [facility] [id number], [place] [address] May, [facility] [place] [facility] [address] [id number], [place] [address] May, [facility] [place] [facility] [address] [id number] [place] [address] May, 2014 [facility] [place] [facility] [address] [id number] [place] [address] May, [facility] [place] [facility] [address] [id number] [place] [address] May, 2014 [facility] [place] [facility] [address] [id number] [place] [address] May, [facility] [place] [facility] [address] [id number] [place] [address] May, [facility] [place] [facility] [address] [id number] [place] [address] Apr, [facility] [place] [facility] [address] [id number] [place] [address] Apr, [facility] [place] [facility] [address] [id number] [place] [address] Apr, [facility] [place] [facility] [address] [id number] [place] [address] Apr, [facility] [place] [facility] [address] [facility] [id number] [place] [address] Apr, [facility] [place] [facility] [address] [facility] [id number] [place] [address] Apr, [facility] [place] [facility] [address] [id number], [place] [address] Apr, [facility] [place] [facility] [address] [id number] [place] [address] Mar, [facility] [place] [facility] [address] [id number] [place] [address] Mar, [facility] [place] [facility] [address] [facility] [id number] [place] [address] Mar, [facility] [place] [facility] [address] [id number], [place] [address] Mar, [facility] [place] [facility] [address] [id number] [place] [address] Mar, [facility] [place] [facility] [address] [id number] [place] [address] Mar, [facility] [place] [facility] [address] [facility] [id number] [place] [address] Feb, [facility] [place] [facility] [address] [id number] [place] [address] Feb, [facility] [place] [facility] [address] [id number] [place] [address] Feb, [facility] [place] [facility] [address] [id number] [place] [address] Feb, [facility] [place] [facility] [address] [facility] [id number] [place] [address] Feb, [facility] [place] [facility] [address] [facility] [id number] [place] [address] Feb, [facility] [place] [facility] [address] [facility] [id number] [place] [address] Jan, [facility] [place] [facility] [address] [facility] [id number] [place] [address] Jan, [facility] [place] [facility] [address] [facility] [id number], [place] [address] Jan, [facility] [place] [facility] [address] [id number], [place] [address] Jan, [facility] [place] [facility] [address] [id number], [place] [address] Jan, [facility] [place] [facility] [address] [facility] [id number], [place] [address] Jan, [facility] [place] [facility] [address] [facility] [id number], [place] [address] Jan, [facility] [place] [facility] [address] [id number] [place] [address] Jan, [facility] [place] [facility] [address] [id number] [place] [address] Dec, [facility] [place] [facility] [address] [id number] [place] [address] Dec, [facility] [place] [facility] [address] [id number] [place] [address] Dec, [facility] [place] [facility] [address] [id number] [place] [address] Dec, [facility] [place] [facility] [address] [id number] [place] [address] Dec, [facility] [place] [facility] [address] [id number] [place] [address] Dec, [facility] [place] [facility] [address] [id number] [place] [address] Dec, [facility] [place] [facility] [address] [id number] [place] [address] Nov, [facility] [place] [facility] [address] [id number] [place] [address] Nov, [facility] [place] [facility] [address] [id number] [place] [address] Oct, [facility] [place] [facility] [address] [id number] [place] [address] Oct, [facility] [place] [facility] [address] [id number] [place] [address] Oct, [facility] [place] [facility] [address] [id number] [place] [address] Oct, [facility] [place] [facility] [address] [id number] [place] [address] Sep, [facility] [place] [facility] [address] [id number] [place] [address] Sep, [facility] [place] [facility] [address] [id number] [place] [address] Sep, [facility] [place] [facility] [address] [id number] [place] [address] Sep, [facility] [place] [facility] [address] [id number] [place] [address] Sep, [facility] [place] [facility] [address] [id number] [place] [address] Sep, [facility] [place] [facility] [address] [id number] [place] [address] Sep, [facility] [place] [facility] [address] [id number] [place] [address] Sep, [facility] [place] [facility] [address] [id number] [place] [address] August, [facility] [place] [facility] [address] [id number] [place] [address] August, [facility] [place] [facility] [address] [id number] [place] [address] August, [facility] [place] [facility] [address] [id number] [place] [address] August, [facility] [place] [facility] [address] [id number] [place] [address] Jul, [facility] [place] [facility] [address] [id number] [place] [address] Jul, [facility] [place] [facility] [address] [id number] [place] [address] Jul, [facility] [place] [facility] [address] [id number] [place] [address] Jul, [facility] [place] [facility] [address] [id number] [place] [address] Jul, [facility] [place] [facility] [address] [id number] [place] [address] 16 Jul, 2013 [facility] [place] [facility] [address] [id number] [place] [address] 15 Jul, 2013 [facility] [place] [facility] [address] [id number] [place] [address] 15 Jul, 2013 [facility] [place] [facility] [address] [id number] [place] [address] 18 Jun, 2013 [facility] [place] [facility] [address] [id number] [place] [address] 18 Jun, 2013 [facility] [place] [facility] [address] [id number] [place] [address] Jun, [facility] [place] [facility] [address] [id number] [place] [address] Jun, [facility] [place] [facility] [address] [id number] [place] [address] 06 Jun, 2013 [facility] [place] [facility] [address] [id number] [place] [address] 06 Jun, 2013 [facility] [place] [facility] [address] [id number] [place] [address] 04 Jun, 2013 [facility] [place] [facility] [address] [id number] [place] [address] Jun, [facility] [place] [facility] [address] [id number] [place] [address] May, [facility] [place] [facility] [address] [id number] [place] [address] May, [facility] [place] [facility] [address] [id number] [place] [address] Apr, [facility] [place] [facility] [address] [id number] [place] [address] Apr, [facility] [place] [facility] [address] [id number] [place] [address] Mar, [facility] [place] [facility] [address] [id number] [place] [address] Mar, [facility] [address] [id number] [place] [address] Mar, [facility] [address] [id number] [place] [address] Mar, [facility] [address] [id number] [place] [address] Mar, [facility] [address] [id number] [place] [address] Mar, [facility] [address] [id number] [place] [address] Mar, [facility] [address] [id number] [place] [address] Feb, [facility] [address] [id number] [place] [address] Feb, [facility] [address] [id number] [place] [address] Feb, [facility] [address] [id number] [place] [address] Feb, [facility] [address] [id number] [place] [address] Feb, [facility] [place] [facility] [address] [id number], [place] [address] 04 Feb, 2013 [facility] [place] [facility] [address] [id number] [place] [address] 26 Dec, 2012 [facility] [place] [facility] [address] [id number] [place] [address] 18 Dec, 2012 [facility] [place] [facility] [address] [id number] [place] [address] 13 Dec, 2012 [facility] [place] [facility] [address] [id number] [place] [address] Dec, [facility] [address] [id number] [place] [address] Dec, [facility] [address] [id number] [place] [address] Nov, [facility] [address] [id number] [place] [address] Nov, [facility] [address] [id number] [place] [address] Oct, [facility] [address] [id number] [place] [address] August, [facility] [address] [id number] [place] [address] August, [facility] [address] [id number] [place] [address] August, [facility] [address] [id number] [place] [address] Jul, [facility] [address] [id number] [place] [address] Jul, [facility] [address] [id number] [place] [address] Jul, [facility] [address] [id number] [place] [address] Jun, [facility] [place] [facility] [address] [id number] [place] [address] Jun, [facility] [place] [facility] [address] [id number] [place] [address] Jun, [facility] [place] [facility] [address] [id number] [place] [address] Jun, [facility] [place] [facility] [address] [id number] [place] [address] Jun, [facility] [place] [facility] [address] [id number] [place] [address] 15 Jun, 2012 [facility] [address] [id number] [place] [address] 12 Jun, 2012 [facility] [place] [facility] [address] [id number] [place] [address] 18 May, 2012 [facility] [address] [id number] [place] [address] 11 May, 2012 [facility] [place] [facility] [address] [id number] [place] [address] 06 May, 2012 [facility] [address] [id number] [place] [address] 05 May, 2012 [facility] [address] [id number] [place] [address] Apr, [facility] [address] [id number] [place] [address] Apr, [facility] [address] [id number] [place] [address] Apr, [facility] [address] [id number] [place] [address] Mar, [facility] [address] [id number] [place] [address] Mar, [facility] [address] [id number] [place] [address] Mar, [facility] [place] [facility] [address] [id number] [place] [address] Mar, [facility] [place] [facility] [address] [id number] [place] [address] Mar, [facility] [place] [facility] [address] [id number] [place] [address] 18 Mar, 2012 [facility] [place] [facility] [address] [id number] [place] [address] Mar, [facility] [place] [facility] [address] [id number] [place] [address] Mar, [facility] [place] [facility] [address] [id number] [place] [address] Feb, [facility] [place] [facility] [address] [facility] [id number] [place] [address] Feb, [facility] [place] [facility] [address] [id number] [place] [address] Feb, [facility] [place] [facility] [address] [id number] [place] [address] Jan, [facility] [place] [facility] [address] [id number] [place] [address] Jan, [facility] [place] [facility] [address] [id number] [place] [address] Jan, [facility] [place] [facility] [address] [id number], [place] [address] Jan, [facility] [place] [facility] [address] [id number], [place] [address] Jan, [facility] [place] [facility] [address] [facility] [id number], [place] [address] Jan, [facility] [place] [facility] [address] [id number], [place] [address] Jan, [facility] [place] [facility] [address] [id number], [place] [address] Dec, [facility] [place] [facility] [address] [id number], [place] [address] 24 Dec, 2011 [facility] [place] [facility] [address] [facility] [id number], [place] [address] Dec, [facility] [place] [facility] [address] [facility] [id number], [place] [address] 30 Nov, 2011 [facility] [place] [facility] [address] [id number] [place] [address] Nov, [facility] [place] [facility] [address] [id number] [place] [address] Nov, [facility] [place] [facility] [address] [id number] [place] [address] Nov, [facility] [place] [facility] [address] [id number] [place] [address] Oct, [facility] [place] [facility] [address] [id number] [place] [address] Oct, [facility] [place] [facility] [address] [id number] [place] [address] Oct, [facility] [place] [facility] [address] [id number] [place] [address] Sep, [facility] [place] [facility] [address] [id number] [place] [address] Sep, [facility] [place] [facility] [address] [id number] [place] [address] Sep, [facility] [place] [facility] [address] [id number] [place] [address] Sep, [facility] [place] [facility] [address] [id number] [place] [address] Sep, [facility] [place] [facility] [address] [id number] [place] [address] Sep, [facility] [place] [facility] [address] [id number] [place] [address] August, [facility] [place] [facility] [address] [id number] [place] [address] Jul, [facility] [place] [facility] [address] [id number] [place] [address] Jul, [facility] [place] [facility] [address] [id number] [place] [address] Jul, [facility] [place] [facility] [address] [id number] [place] [address] Jul, [facility] [place] [facility] [address] [id number] [place] [address] Jul, [facility] [place] [facility] [address] [id number] [place] [address] Jun, [facility] [place] [facility] [address] [id number] [place] [address] Jun, [facility] [place] [facility] [address] [id number] [place] [address] Jun, [facility] [place] [facility] [address] [id number] [place] [address] Jun, [facility] [place] [facility] [address] [facility] [id number] [place] [address] Jun, [facility] [place] [facility] [address] [id number] [place] [address] May, [facility] [place] [facility] [address] [id number] [place] [address] May, [facility] [place] [facility] [address] [id number] [place] [address] May, [facility] [place] [facility] [address] [id number] [place] [address] May, [facility] [place] [facility] [address] [id number] [place] [address] May, [facility] [place] [facility] [address] [id number] [place] [address] May, [facility] [place] [facility] [address] [id number] [place] [address] May, [facility] [place] [facility] [address] [id number] [place] [address] Apr, [facility] [place] [facility] [address] [id number] [place] [address] 29 Mar, 2011 [facility] [place] [facility] [address] [id number] [place] [address] 13 Mar, 2011 [facility] [place] [facility] [address] [id number] [place] [address] 10 Mar, 2011 [facility] [place] [facility] [address] [id number] [place] [address] 10 Mar, 2011 [facility] [place] [facility] [address] [id number] [place] [address] 08 Mar, 2011 [facility] [place] [facility] [address] [id number] [place] [address] 23 Feb, 2011 [facility] [place] [facility] [address] [id number] [place] [address] 14 Feb, 2011 [facility] [place] [facility] [address] [id number] [place] [address] 14 Feb, 2011 [facility] [place] [facility] [address] [id number] [place] [address] 14 Feb, 2011 [facility] [place] [facility] [address] [id number] [place] [address] 07 Feb, 2011 [facility] [place] [facility] [address] [facility] [id number] [place] [address] Feb, [facility] [place] [facility] [address] [id number] [place] [address] 04 Feb, 2011 [facility] [place] [facility] [address] [id number] [place] [address] 10 Jan, 2011 [facility] [place] [facility] [address] [id number] [place] [address] 12 Dec, 2010 [facility] [place] [facility] [address] [id number] [place] [address] Oct, [facility] [place] [facility] [address] [id number] [place] [address] Jun, [facility] [place] [facility] [address] [id number] [place] [address] Mar, [facility] [address] [id number] [place] [address] Mar, [facility] [address] [id number] [place] [address] 16 Mar, 2010 [facility] [address] [id number] [place] [address] 16 Mar, 2010 [facility] [address] [id number] [place] [address] 15 Mar, 2010 [facility] [address] [id number] [place] [address] Mar, [facility] [address] [id number] [place] [address] Mar, [facility] [address] [id number] [place] [address] 05 Mar, 2010 [facility] [address] [id number] [place] [address] Mar, [facility] [address] [id number] [place] [address] Mar, [facility] [address] [id number] [place] [address] Jan, [facility] [place] [facility] [address] [id number] [place] [address] Jan, [facility] [address] [id number] [place] [address] Jan, [facility] [place] [facility] [address] [id number] [place] [address] Nov, [facility] [place] [facility] [address] [id number] [place] [address] Oct, [facility] [place] [facility] [address] [id number] [address] Mar, [facility] [address] [id number] [address] Mar, [facility] [address] [id number] [address] Mar, [facility] [address] [id number] [address] Mar, [facility] [id number] [address] Dec, [facility] [id number] [address] August, [facility] [id number] [address] August, [facility] [id number] [address] Jul, [facility] [id number] [address] Jan, [facility] [address] [id number] [address] Jan, IMMUNIZATIONS No Known Immunizations SOCIAL HISTORY Never Assessed REASON FOR VISIT EMR-[facility] PLAN OF CARE VITAL SIGNS MEDICATIONS Unknown Medications RESULTS No Results PROCEDURES No Known procedures INSTRUCTIONS MEDICATIONS ADMINISTERED No Known Medications MEDICAL (GENERAL) HISTORY Type Description Date Medical History asthma Medical History hypertension Medical History hepatitis C Medical History osteoporosis Medical History headache Medical History depression Medical History Hypothyroidism Medical History fibromyalgia Medical History Arthritis Medical History back pain Medical History Brain Aneurysm-metal clip placed September 1995 Surgical History hysterectomy complete- in 's. Surgical History cholecystectomy Surgical History bladder surgery Surgical History orthopedic surgery--left foot Surgical History Thyroid surgery-Ablation Surgical History colonoscopy - Dr. Syed 10/2013 Surgical History EGD - Dr. Syed 2016 Hospitalization History surgeries Hospitalization History multiple hospital stays for PNA
--- OUTSIDE RECORDS SUMMARY | 2018-09-22 02:25 | XMS REPORT ---
Author Author Migration, Doctor Organization [facility] [address] [facility] Address Unknown Phone Unavailable Care Team Providers Care Drag Down Name Role Phone Migration, Doctor Unavailable Unavailable PROBLEMS Type Condition ICD9-CM Code [id number] Code Onset Dates Condition Status SNOMED Code Problem Osteoporosis M81.0 Active 14691741 Problem Fibromyalgia M79.7 Active 03099385 Problem Unspecified abdominal pain R10.9 Active 340930970 Problem Chronic tension-type headache, not intractable G44.229 Active 553416648 Problem Chronic pain syndrome G89.4 Active 989072451 Problem Hypothyroidism, unspecified hypothyroidism type E03.9 Active 67216171 Problem Pancytopenia D61.818 Active 764904783 Problem Right sided sciatica M54.31 Active 78514605 Problem RUQ abdominal pain R10.11 Active 609166738 Problem Vitamin D deficiency E55.9 Active 03731178 Problem Chronic gastritis without bleeding, unspecified gastritis type K29.50 Active 2692593 Problem Vaginal atrophy N95.2 Active 620702691 Problem Hot flashes N95.1 Active 250459202 Problem Primary insomnia F51.01 Active 2373238 Problem Major depression, recurrent F33.9 Active 15561382 Problem Plantar fasciitis M72.2 Active 686954362 Problem Low back pain M54.5 Active 542368198 Problem Trigger point with back pain M54.9 Active 811447200 Problem Polyneuropathy associated with underlying disease G63 Active 357874179 Problem Drug induced constipation K59.03 Active 165743456479483 Problem Chronic prescription opiate use Z79.891 Active 114899034 Problem Porokeratosis Q82.8 Active 001262802 Problem Leukopenia, unspecified type D72.819 Active 14692297 Problem Allergic rhinitis, unspecified allergic rhinitis type J30.9 Active 56049062 Problem Pure hypercholesterolemia E78.00 Active 459741459 Problem Chronic obstructive pulmonary disease, unspecified COPD type J44.9 Active 41771535 Problem History of hepatitis C Z86.19 Active 12223796272090 Problem Other constipation K59.09 Active 567111944 Problem Allergy to intravenous contrast Z91.041 Active 524016919 Problem 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 Active 564686930 Problem Atrial fibrillation, unspecified type I48.91 Active 82335791 ALLERGIES No Information ENCOUNTERS Encounter Location Date Diagnosis [place] [address] [address] August, Atrial fibrillation, unspecified type I48.91 [place] [address] [address] Jul, Atrial fibrillation, unspecified type I48.91 [place] [address] [address] Jul, Chronic pain syndrome G89.4 [place] [address] [address] Jun, Chronic pain syndrome G89.4 [facility] [place] [address] [address] Jun, Acute bronchitis, unspecified organism J20.9 [place] [address] [address] Jun, Hypothyroidism, unspecified hypothyroidism type E03.9 [place] [address] [address] Jun, Chronic obstructive pulmonary disease, unspecified COPD type J44.9 ; Chronic pain syndrome G89.4 ; Hypothyroidism, unspecified hypothyroidism type E03.9 ; Allergic rhinitis, unspecified allergic rhinitis type J30.9 and Osteoporosis M81.0 [place] [address] [address] Jun, [facility] [place] [address] [address] May, Influenza A J10.1 [place] [address] [address] May, Chronic pain syndrome G89.4 [place] [address] [place] [id number] [place] [address] Apr, Chronic pain syndrome G89.4 [facility] [address] [address] Apr, Acute maxillary sinusitis J01.00 and Sore throat J02.9 [place] [address] [address] Apr, Chronic pain syndrome G89.4 [place] [address] [address] Mar, Trochanteric bursitis of both hips M70.61 [place] [address] [address] Mar, Chronic pain syndrome G89.4 [facility] [address] [address] Feb, Sore throat and laryngitis J06.0 ; Acute streptococcal pharyngitis J02.0 ; Dog scratch W54.8XXA and Cellulitis L03.90 [place] [address] [address] Feb, Acute maxillary sinusitis J01.00 [place] [address] [address] Feb, Hypothyroidism, unspecified hypothyroidism type E03.9 [place] [address] [address] Feb, Chronic pain syndrome G89.4 [place] [address] [address] Jan, Fibromyalgia M79.7 ; Chronic pain syndrome G89.4 ; Low back pain M54.5 ; Hypothyroidism, unspecified hypothyroidism type E03.9 ; Leukopenia, unspecified type D72.819 ; Pure hypercholesterolemia E78.00 ; Right upper quadrant pain R10.11 ; Encounter for immunization Z23 ; Chronic gastritis without bleeding, unspecified gastritis type K29.50 ; Chronic prescription opiate use Z79.891 and BMI 28.0-28.9,adult Z68.28 [place] [address] [place] [id number] [place] [address] Jan, Chronic pain syndrome G89.4 [place] [address] [address] Dec, Chronic pain syndrome G89.4 [place] [address] [address] Nov, Onychocryptosis L60.0 [place] [address] [address] Nov, Chronic pain syndrome G89.4 [place] [address] [address] Nov, Trochanteric bursitis of both hips M70.61 [place] [address] [address] Oct, Hypothyroidism, unspecified hypothyroidism type E03.9 and Atrial fibrillation, unspecified type I48.91 [place] [address] [place] [id number] [place] [address] Oct, Fibromyalgia M79.7 ; Chronic pain syndrome G89.4 ; Hypothyroidism, unspecified hypothyroidism type E03.9 ; Overweight (BMI 25.0-29.9) E66.3 and Atrial fibrillation, unspecified type I48.91 [place] [address] [place] [id number] [place] [address] Oct, Chronic pain syndrome G89.4 [place] [address] [address] Sep, Chronic pain syndrome G89.4 [place] [address] [address] August, Somatic dysfunction of lumbar region M99.03 and Somatic dysfunction of pelvis region M99.05 [place] [address] [address] August, Chronic pain syndrome G89.4 [place] [address] [place] [id number] [place] [address] Jul, Trochanteric bursitis of left hip M70.62 and Trochanteric bursitis, right hip M70.61 [place] [address] [place] [id number] [place] [address] Jul, [place] [address] [place] [id number] [place] [address] Jul, Chronic pain syndrome G89.4 [place] [address] [place] [id number] [place] [address] Jul, Hypothyroidism, unspecified hypothyroidism type E03.9 [place] [address] [place] [id number] [place] [address] Jul, Hypothyroidism, unspecified hypothyroidism type E03.9 [place] [address] [place] [id number] [place] [address] Jul, Chronic tension-type headache, not intractable G44.229 ; Atrial fibrillation, unspecified type I48.91 ; Chronic pain syndrome G89.4 ; Hypothyroidism, unspecified hypothyroidism type E03.9 ; Pancytopenia D61.818 ; History of hepatitis C Z86.19 ; Vaginal atrophy N95.2 ; RUQ abdominal pain R10.11 ; Chronic prescription opiate use Z79.891 ; Osteoporosis M81.0 and Screening for breast cancer Z12.31 [place] [address] [address] Jun, [place] [address] [place] [id number] [place] [address] May, [place] [address] [place] [id number] [place] [address] May, [place] [address] [place] [address] May, [facility] [address] [place] [id number] [place] [address] Apr, [facility] [address] [place] [id number] [place] [address] Apr, Hypothyroidism, unspecified hypothyroidism type E03.9 [facility] [address] [address] Apr, Hypothyroidism, unspecified hypothyroidism type E03.9 and Leukopenia, unspecified type D72.819 [place] [address] [place] [id number] [place] [address] Mar, [place] [address] [place] [id number] [place] [address] Mar, Leukopenia, unspecified type D72.819 [place] [address] [place] [id number] [place] [address] Mar, Hypothyroidism, unspecified hypothyroidism type E03.9 and Low hemoglobin D64.9 [place] [address] [place] [id number] [place] [address] Mar, Hypothyroidism, unspecified hypothyroidism type E03.9 [place] [address] [place] [id number] [place] [address] Mar, Osteoporosis M81.0 ; Low hemoglobin D64.9 and Hypothyroidism, unspecified hypothyroidism type E03.9 [facility] [address] [place] [address] Mar, Hypothyroidism, unspecified hypothyroidism type E03.9 ; Bilirubin in urine R82.2 and Pancytopenia D61.818 [place] [address] [place] [address] Feb, [facility] [address] [place] [id number] [place] [address] Feb, Cough R05 and Bronchitis J40 [facility] [address] [place] [id number] [place] [address] 14 Feb, 2017 Other viral agents as the cause of diseases classified elsewhere B97.89 and Acute upper respiratory infection, unspecified J06.9 [facility] [address] [place] [id number] [place] [address] Feb, Fibromyalgia M79.7 ; Chronic pain syndrome G89.4 ; Hypothyroidism, unspecified hypothyroidism type E03.9 ; Primary insomnia F51.01 ; Osteoporosis M81.0 ; Vision abnormalities H53.9 ; Pancytopenia D61.818 ; BMI 28.0-28.9,adult Z68.28 and Encounter for immunization Z23 [place] [address] [address] Feb, Neuroma D36.10 and Capsulitis of right foot M77.[address] [address] Feb, [place] [address] [address] Feb, Hypothyroidism, unspecified hypothyroidism type E03.9 [place] [address] [address] Jan, [place] [address] [address] Jan, Atrial fibrillation, unspecified type I48.91 [place] [address] [address] Jan, [place] [address] [address] Jan, Fibromyalgia M79.7 ; Atrial fibrillation, unspecified type I48.91 ; Pain of left hand M79.642 ; Pain in right hand M79.641 ; Chronic prescription opiate use Z79.891 ; Chronic pain syndrome G89.4 ; Elevated fasting glucose R73.01 and Hypothyroidism, unspecified hypothyroidism type E03.9 [facility] [address] [place] [address] Jan, [facility] [address] [place] [id number] [place] [address] Dec, Trochanteric bursitis of both hips M70.61 [facility] [address] [place] [id number] [place] [address] Dec, [facility] [address] [place] [id number] [place] [address] Dec, [facility] [address] [place] [id number] [place] [address] Nov, [facility] [address] [place] [id number] [place] [address] Nov, Unilateral headache R51 [facility] [address] [place] [id number] [place] [address] Nov, 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 [address] [place] [id number] [place] [address] Oct, [facility] [address] [place] [address] Oct, [facility] [address] [place] [id number] [place] [address] Sep, Hypothyroidism, unspecified hypothyroidism type E03.9 [facility] [address] [place] [id number] [place] [address] Sep, Hypothyroidism, unspecified hypothyroidism type E03.9 and Bilirubin in urine R82.2 [facility] [address] [address] Sep, Trochanteric bursitis of both hips M70.61 [facility] [address] [place] [id number] [place] [address] Sep, Hypothyroidism, unspecified hypothyroidism type E03.9 ; Dysuria R30.0 ; Chronic tension-type headache, not intractable G44.229 and Drug induced constipation K59.03 [facility] [address] [place] [id number] [place] [address] Sep, [facility] [address] [address] Sep, [facility] [address] [place] [id number] [place] [address] August, [facility] [address] [address] Jul, [place] [address] [place] [id number] [place] [address] Jul, Trochanteric bursitis of right hip M70.61 [facility] [address] [place] [id number] [place] [address] Jul, Hypothyroidism, unspecified hypothyroidism type E03.9 [place] [address] [place] [id number] [place] [address] Jul, Fibromyalgia M79.7 ; Chronic pain syndrome G89.4 ; Hypothyroidism, unspecified hypothyroidism type E03.9 and Other constipation K59.09 [facility] [address] [place] [id number] [place] [address] Jun, Swollen tonsil J35.1 and Strep throat J02.0 [facility] [address] [place] [id number] [place] [address] Jun, [facility] [address] [place] [id number] [place] [address] Jun, Acute maxillary sinusitis J01.00 [facility] [address] [place] [id number] [place] [address] Jun, Hypothyroidism, unspecified hypothyroidism type E03.9 [facility] [address] [place] [id number] [place] [address] Jun, Chronic pain syndrome G89.4 ; Fibromyalgia M79.7 ; Hypothyroidism, unspecified hypothyroidism type E03.9 and Chronic prescription opiate use Z79.891 [facility] [address] [place] [id number] [place] [address] May, [facility] [address] [place] [id number] [place] [address] Apr, Hypothyroidism, unspecified hypothyroidism type E03.9 [facility] [address] [place] [id number] [place] [address] Apr, [facility] [address] [place] [id number] [place] [address] Apr, Lipid screening Z13.220 and Hypothyroidism, unspecified hypothyroidism type E03.9 [place] [address] [place] [id number] [place] [address] Apr, [facility] [address] [place] [id number] [place] [address] Mar, Trochanteric bursitis of both hips M70.61 [place] [address] [place] [id number] [place] [address] Mar, [place] [address] [place] [id number] [place] [address] Mar, Plantar fasciitis M72.2 and Porokeratosis Q82.8 [place] [address] [place] [id number] [place] [address] Feb, Lipid screening Z13.220 ; Vitamin D deficiency E55.9 and Hypothyroidism, unspecified hypothyroidism type E03.9 [facility] [address] [place] [address] 16 Feb, 2016 Chronic pain syndrome G89.4 ; Hypothyroidism, unspecified hypothyroidism type E03.9 ; Pancytopenia D61.818 ; Vaginal atrophy N95.2 ; Chronic gastritis without bleeding, unspecified gastritis type K29.50 ; Vitamin D deficiency E55.9 ; Chronic prescription opiate use Z79.891 ; Adverse effect of other opioids, initial encounter T40.2X5A ; Drug induced constipation K59.03 ; Lipid screening Z13.220 and Encounter for immunization Z23 [facility] [address] [place] [id number] [place] [address] Feb, [facility] [address] [address] Feb, Ingrown toenail L60.0 [facility] [address] [address] Jan, [facility] [address] [address] Jan, Trochanteric bursitis of both hips M70.61 [facility] [address] [address] Jan, [facility] [address] [place] [id number] [place] [address] Jan, [facility] [address] [place] [id number] [place] [address] Jan, [facility] [address] [place] [id number] [place] [address] Jan, Right sided sciatica M54.31 [facility] [address] [place] [id number] [place] [address] Dec, Onychomycosis B35.1 [facility] [address] [place] [id number] [place] [address] Dec, [facility] [address] [place] [id number] [place] [address] Dec, [facility] [address] [place] [id number] [place] [address] Dec, [facility] [address] [place] [id number] [place] [address] Dec, Osteoarthritis of right hip, unspecified osteoarthritis type M16.11 and Bursitis of right hip M70.71 [place] [address] [place] [id number] [place] [address] Nov, [place] [address] [place] [id number] [place] [address] Nov, [place] [address] [place] [id number] [place] [address] Nov, [place] [address] [place] [id number] [place] [address] Nov, Hypothyroidism, unspecified hypothyroidism type E03.9 ; Vitamin D deficiency E55.9 and History of hepatitis C Z86.19 [place] [address] [place] [id number] [place] [address] Nov, Right upper quadrant pain R10.11 ; History of hepatitis C Z86.19 and Low back pain M54.5 [place] [address] [place] [id number] [place] [address] Oct, Trochanteric bursitis, right hip M70.61 [place] [address] [place] [id number] [place] [address] Oct, [place] [address] [place] [id number] [place] [address] Oct, [place] [address] [place] [id number] [place] [address] Oct, Trochanteric bursitis of both hips M70.61 and Right sided sciatica M54.31 [place] [address] [place] [id number] [place] [address] Oct, Trochanteric bursitis of both hips M70.61 [place] [address] [place] [id number] [place] [address] Oct, RUQ abdominal pain R10.11 [facility] [address] [place] [address] 13 Oct, 2015 Sciatic leg pain M54.30 [facility] [address] [place] [id number] [place] [address] Oct, RUQ abdominal pain R10.11 [place] [address] [place] [id number] [place] [address] 07 Oct, 2015 RUQ abdominal pain R10.11 ; History of hepatitis C Z86.19 and Trigger point with back pain M54.9 [place] [address] [place] [id number] [place] [address] Sep, [place] [address] [place] [id number] [place] [address] Sep, Right sided sciatica M54.31 [place] [address] [place] [id number] [place] [address] Sep, Hypothyroidism, unspecified hypothyroidism type E03.9 and Vitamin D deficiency E55.9 [place] [address] [place] [id number] [place] [address] Sep, Plantar fasciitis M72.2 and Porokeratosis Q82.8 [place] [address] [place] [id number] [place] [address] Sep, Hypothyroidism, unspecified hypothyroidism type E03.9 ; Chronic pain syndrome G89.4 ; Polyneuropathy associated with underlying disease G63 and Vitamin D deficiency E55.9 [place] [address] [place] [id number] [place] [address] August, [facility] [address] [place] [id number] [place] [address] Jul, Plantar fasciitis M72.2 [place] [address] [place] [id number] [place] [address] Jul, Trochanteric bursitis, right hip M70.61 [place] [address] [place] [id number] [place] [address] Jul, Hypothyroidism, unspecified hypothyroidism type E03.9 [place] [address] [place] [id number] [place] [address] Jul, Hypothyroidism, unspecified hypothyroidism type E03.9 ; Chronic pain syndrome G89.4 and Polyneuropathy associated with underlying disease G63 [place] [address] [place] [id number] [place] [address] Jun, Trochanteric bursitis of both hips M70.61 [place] [address] [place] [id number] [place] [address] 08 Jun, 2015 Vitamin D deficiency E55.9 ; Osteoporosis M81.0 ; Low back pain M54.5 and Plantar fasciitis M72.2 [place] [address] [place] [id number] [place] [address] 26 May, 2015 Vitamin D deficiency E55.9 and Hypothyroidism, unspecified hypothyroidism type E03.9 [place] [address] [place] [id number] [place] [address] 23 May, 2015 Acute maxillary sinusitis J01.00 [place] [address] [place] [id number] [place] [address] 18 May, 2015 Osteoporosis M81.0 and Hypothyroidism, unspecified hypothyroidism type E03.9 [place] [address] [place] [id number] [place] [address] 16 May, 2015 Osteoporosis M81.0 [place] [address] [place] [id number] [place] [address] 15 May, 2015 [place] [address] [place] [id number] [place] [address] Apr, [place] [address] [place] [id number] [place] [address] 07 Apr, 2015 Trochanteric bursitis of both hips M70.61 [place] [address] [place] [id number] [place] [address] Apr, Hypothyroidism, unspecified hypothyroidism type E03.9 [place] [address] [address] Apr, Chronic pain syndrome G89.4 ; Bilateral low back pain with sciatica, sciatica laterality unspecified M54.40 ; Pain in right hip M25.551 ; Pain in left hip M25.552 ; Chronic prescription opiate use Z79.899 ; Primary insomnia F51.01 and Hypothyroidism, unspecified hypothyroidism type E03.9 [place] [address] [id number] [place] [id number] Mar, [place] [address] [address] Feb, [place] [address] [id number] 16 Feb, 2015 Chronic pain syndrome G89.4 and Major depression F32.9 [place] [address] [id number] [place] [id number] Feb, Fatigue R53.83 [place] [address] [address] 13 Feb, 2015 History of fracture Z87.81 [place] [address] [place] [id number] [place] [id number] Feb, Major depression, recurrent F33.9 and Generalized anxiety disorder F41.1 [place] [address] [place] [id number] [place] [id number] Feb, [place] [address] [id number] [place] [address] Jan, Hypothyroidism, unspecified hypothyroidism type E03.9 [place] [address] [id number] [place] [id number] Jan, Abdominal pain R10.9 and Hypothyroidism, unspecified hypothyroidism type E03.9 [place] [id number] [address] Jan, Abdominal pain R10.9 [place] [address] [place] [id number] [place] [id number] Jan, Hypothyroidism, unspecified hypothyroidism type E03.9 [place] [address] [id number] [place] [address] Jan, [place] [id number] [place] [address] Jan, 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 and Hypothyroidism, unspecified hypothyroidism type E03.9 [place] [id number] [place] [address] Jan, 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 ; Abdominal pain R10.9 ; Dyspareunia N94.1 ; Encounter for immunization Z23 ; History of fracture Z87.81 ; Fatigue R53.83 ; Throat fullness R68.89 ; Bruises easily R23.8 ; Hot flashes N95.1 ; Depression F32.9 and Vaginal atrophy N95.2 [place] [id number] [place] [address] Jan, Hypothyroidism, unspecified hypothyroidism type E03.9 [place] [id number] [place] [address] Jan, Unspecified abdominal pain R10.9 ; Chronic obstructive pulmonary disease, unspecified COPD type J44.9 ; Allergic rhinitis, unspecified allergic rhinitis type J30.9 ; Chronic pain syndrome G89.4 ; Hypothyroidism, unspecified hypothyroidism type E03.9 ; Chest pain, unspecified chest pain type R07.9 and Plantar fasciitis M72.2 [place] [id number] [place] [address] 08 Jan, 2015 Trochanteric bursitis of both hips M70.61 [place] [id number] [address] Dec, [facility] [id number] [place] [address] Nov, [facility] [id number] [address] Nov, [facility] [id number] [place] [address] Nov, Constipation 564.00 [facility] [id number] [place] [address] Oct, Chronic pain 338.[address] [facility] [id number] [place] [address] Oct, [facility] [id number] [place] [address] Sep, [facility] [id number] [place] [address] Sep, [facility] [id number] [place] [address] Sep, [facility] [id number] [place] [address] Sep, [facility] [address] [address] Sep, [facility] [address] [address] Sep, [facility] [address] [address] Sep, COPD exacerbation 491.21 ; Chronic pain 338.29 ; Hypothyroidism 244.[address] [facility] [address] [address] August, [facility] [id number] [place] [address] 14 Jul, 2014 [facility] [place] [facility] [address] [id number] [place] [address] Jul, [facility] [place] [facility] [address] [facility] [id number] [place] [address] Jun, [facility] [place] [facility] [address] [facility] [id number] [place] [address] Jun, [facility] [place] [facility] [address] [facility] [id number] [place] [address] Jun, [facility] [place] [facility] [address] [facility] [id number] [place] [address] Jun, [facility] [place] [facility] [address] [facility] [id number] [place] [address] Jun, [facility] [place] [facility] [address] [facility] [id number] [place] [address] May, [facility] [place] [facility] [address] [facility] [id number] [address] May, [facility] [place] [facility] [address] [facility] [id number] [address] May, [facility] [place] [facility] [address] [facility] [id number] [address] May, [facility] [place] [facility] [address] [facility] [id number] [address] May, [facility] [place] [facility] [address] [facility] [id number] [address] May, [facility] [place] [facility] [address] [facility] [id number] [address] May, [facility] [place] [facility] [address] [facility] [id number] [address] May, [facility] [place] [facility] [address] [facility] [id number] [address] May, [facility] [place] [facility] [address] [id number] [place] [address] May, 2014 [facility] [place] [facility] [address] [id number] [place] [address] May, [facility] [place] [facility] [address] [id number] [place] [address] May, [facility] [place] [facility] [address] [id number] [place] [address] May, [facility] [place] [facility] [address] [id number] [place] [address] Apr, [facility] [place] [facility] [address] [id number] [place] [address] Apr, [facility] [place] [facility] [address] [id number] [place] [address] Apr, [facility] [place] [facility] [address] [id number] [place] [address] Apr, [facility] [place] [facility] [address] [id number] [place] [address] Apr, [facility] [place] [facility] [address] [facility] [id number] [place] [address] Apr, [facility] [place] [facility] [address] [id number] [place] [address] Apr, [facility] [place] [facility] [address] [id number] [address] Mar, [facility] [place] [facility] [address] [id number] [place] [address] Mar, [facility] [place] [facility] [address] [id number] [place] [address] Mar, [facility] [place] [facility] [address] [id number] [place] [address] Mar, [facility] [place] [facility] [address] [id number] [address] Mar, [facility] [place] [facility] [address] [id number] [place] [address] Mar, [facility] [place] [facility] [address] [id number] [place] [address] Feb, [facility] [place] [facility] [address] [facility] [id number] [place] [address] Feb, [facility] [place] [facility] [address] [id number] [place] [address] Feb, [facility] [place] [facility] [address] [id number] [place] [address] Feb, [facility] [place] [facility] [address] [id number] [place] [address] Feb, [facility] [place] [facility] [address] [facility] [id number] [place] [address] Feb, [facility] [place] [facility] [address] [facility] [id number] [place] [address] Jan, [facility] [place] [facility] [address] [facility] [id number] [place] [address] Jan, [facility] [place] [facility] [address] [facility] [id number] [place] [address] Jan, [facility] [place] [facility] [address] [facility] [id number] [address] Jan, [facility] [place] [facility] [address] [facility] [id number] [address] Jan, [facility] [place] [facility] [address] [id number] [place] [address] Jan, [facility] [place] [facility] [address] [facility] [id number] [place] [address] Jan, [facility] [place] [facility] [address] [facility] [id number] [place] [address] Jan, [facility] [place] [facility] [address] [id number] [place] [address] 25 Dec, 2013 [facility] [place] [facility] [address] [id number] [place] [address] Dec, [facility] [place] [facility] [address] [id number] [place] [address] Dec, [facility] [place] [facility] [address] [id number] [place] [address] Dec, [facility] [place] [facility] [address] [id number] [place] [address] 13 Dec, 2013 [facility] [place] [facility] [address] [id number] [place] [address] Dec, [facility] [place] [facility] [address] [id number] [place] [address] Dec, [facility] [place] [facility] [address] [id number] [place] [address] Nov, [facility] [place] [facility] [address] [id number] [place] [address] Nov, [facility] [place] [facility] [address] [id number] [place] [address] Oct, [facility] [place] [facility] [address] [id number] [place] [address] Oct, [facility] [place] [facility] [address] [id number] [place] [address] Oct, [facility] [place] [facility] [address] [id number] [place] [address] Oct, [facility] [place] [facility] [address] [id number] [place] [address] Sep, [facility] [place] [facility] [address] [id number] [place] [address] Sep, [facility] [place] [facility] [address] [id number] [place] [address] Sep, [facility] [place] [facility] [address] [id number] [place] [address] Sep, [facility] [place] [facility] [address] [id number] [place] [address] Sep, [facility] [place] [facility] [address] [id number] [place] [address] Sep, [facility] [place] [facility] [address] [id number] [place] [address] Sep, [facility] [place] [facility] [address] [id number] [place] [address] Sep, [facility] [place] [facility] [address] [id number] [place] [address] August, [facility] [place] [facility] [address] [id number] [place] [address] August, [facility] [place] [facility] [address] [id number] [place] [address] August, [facility] [place] [facility] [address] [id number] [place] [address] August, [facility] [place] [facility] [address] [id number] [place] [address] Jul, [facility] [place] [facility] [address] [id number] [place] [address] 30 Jul, 2013 [facility] [place] [facility] [address] [id number] [place] [address] Jul, [facility] [place] [facility] [address] [id number] [place] [address] Jul, [facility] [place] [facility] [address] [id number] [place] [address] 17 Jul, 2013 [facility] [place] [facility] [address] [id number] [place] [address] 16 Jul, 2013 [facility] [place] [facility] [address] [id number] [place] [address] 15 Jul, 2013 [facility] [place] [facility] [address] [id number] [place] [address] 15 Jul, 2013 [facility] [place] [facility] [address] [id number] [place] [address] 18 Jun, 2013 [facility] [place] [facility] [address] [id number] [place] [address] 18 Jun, 2013 [facility] [place] [facility] [address] [id number] [place] [address] Jun, [facility] [place] [facility] [address] [id number] [place] [address] Jun, [facility] [place] [facility] [address] [id number] [place] [address] Jun, [facility] [place] [facility] [address] [id number] [place] [address] Jun, [facility] [place] [facility] [address] [id number] [place] [address] Jun, [facility] [place] [facility] [address] [id number] [place] [address] Jun, [facility] [place] [facility] [address] [id number] [place] [address] May, [facility] [place] [facility] [address] [id number] [place] [address] May, [facility] [place] [facility] [address] [id number] [place] [address] Apr, [facility] [place] [facility] [address] [id number] [place] [address] Apr, [facility] [place] [facility] [address] [id number] [place] [address] Mar, [facility] [place] [facility] [address] [id number] [place] [address] Mar, [facility] [place] [facility] [address] [id number] [place] [address] Mar, [facility] [address] [id number] [place] [address] Mar, [facility] [address] [id number] [place] [address] Mar, [facility] [place] [facility] [address] [id number] [place] [address] Mar, [facility] [address] [id number] [place] [address] Mar, [facility] [address] [id number] [place] [address] Feb, [facility] [address] [id number] [place] [address] Feb, [facility] [address] [id number] [place] [address] Feb, [facility] [address] [id number] [place] [address] Feb, [facility] [address] [id number] [place] [address] Feb, [facility] [address] [id number] [place] [address] Feb, [facility] [place] [facility] [address] [id number] [address] 26 Dec, 2012 [facility] [place] [facility] [address] [id number] [place] [address] 18 Dec, 2012 [facility] [place] [facility] [address] [id number] [place] [address] 13 Dec, 2012 [facility] [place] [facility] [address] [id number] [place] [address] 13 Dec, 2012 [facility] [place] [facility] [address] [id number] [place] [address] Dec, [facility] [address] [id number] [place] [address] Nov, [facility] [address] [id number] [place] [address] Nov, [facility] [address] [id number] [place] [address] Oct, [facility] [address] [id number] [place] [address] August, [facility] [address] [id number] [place] [address] August, [facility] [address] [id number] [place] [address] August, [facility] [address] [id number] [place] [address] Jul, [facility] [address] [id number] [place] [address] Jul, [facility] [address] [id number] [place] [address] Jul, [facility] [address] [id number] [place] [address] Jun, [facility] [address] [id number] [place] [address] Jun, [facility] [place] [facility] [address] [id number] [place] [address] Jun, [facility] [place] [facility] [address] [id number] [place] [address] 20 Jun, 2012 [facility] [place] [facility] [address] [id number] [place] [address] 18 Jun, 2012 [facility] [place] [facility] [address] [id number] [place] [address] 15 Jun, 2012 [facility] [place] [facility] [address] [id number] [place] [address] Jun, [facility] [address] [id number] [place] [address] 18 May, 2012 [facility] [place] [facility] [address] [id number] [place] [address] 11 May, 2012 [facility] [address] [id number] [place] [address] 06 May, 2012 [facility] [place] [facility] [address] [id number] [place] [address] 05 May, 2012 [facility] [place] [facility] [address] [id number] [place] [address] Apr, [facility] [address] [id number] [place] [address] Apr, [facility] [address] [id number] [place] [address] Apr, [facility] [address] [id number] [place] [address] Mar, [facility] [address] [id number] [place] [address] Mar, [facility] [address] [facility] [id number] [place] [address] Mar, [facility] [address] [id number] [place] [address] Mar, [facility] [place] [facility] [address] [id number] [place] [address] Mar, [facility] [place] [facility] [address] [id number] [place] [address] Mar, [facility] [place] [facility] [address] [id number] [place] [address] Mar, [facility] [place] [facility] [address] [id number] [place] [address] Mar, [facility] [place] [facility] [address] [id number] [place] [address] Feb, [facility] [place] [facility] [address] [id number] [place] [address] Feb, [facility] [place] [facility] [address] [facility] [id number] [place] [address] Feb, [facility] [place] [facility] [address] [id number] [place] [address] Jan, [facility] [place] [facility] [address] [id number] [place] [address] Jan, [facility] [place] [facility] [address] [id number] [place] [address] Jan, [facility] [place] [facility] [address] [facility] [id number] [place] [address] Jan, [facility] [place] [facility] [address] [id number] [address] Jan, [facility] [place] [facility] [address] [id number] [place] [address] Jan, [facility] [place] [facility] [address] [facility] [id number] [place] [address] Jan, [facility] [place] [facility] [address] [id number] [place] [address] Dec, [facility] [place] [facility] [address] [id number] [place] [address] 24 Dec, 2011 [facility] [place] [facility] [address] [id number] [place] [address] Dec, [facility] [place] [facility] [address] [facility] [id number] [place] [address] Nov, [facility] [place] [facility] [address] [facility] [id number] [place] [address] Nov, [facility] [place] [facility] [address] [id number] [place] [address] Nov, [facility] [place] [facility] [address] [id number] [place] [address] Nov, [facility] [place] [facility] [address] [id number] [place] [address] Oct, [facility] [place] [facility] [address] [id number] [place] [address] Oct, [facility] [place] [facility] [address] [id number] [place] [address] Oct, [facility] [place] [facility] [address] [id number] [place] [address] Sep, [facility] [place] [facility] [address] [id number] [place] [address] Sep, [facility] [place] [facility] [address] [id number] [place] [address] Sep, [facility] [place] [facility] [address] [id number] [place] [address] Sep, [facility] [place] [facility] [address] [id number] [place] [address] Sep, [facility] [place] [facility] [address] [id number] [place] [address] Sep, [facility] [place] [facility] [address] [id number] [place] [address] August, [facility] [place] [facility] [address] [id number] [place] [address] Jul, [facility] [place] [facility] [address] [id number] [place] [address] Jul, [facility] [place] [facility] [address] [id number] [place] [address] Jul, [facility] [place] [facility] [address] [id number] [place] [address] Jul, [facility] [place] [facility] [address] [id number] [place] [address] Jul, [facility] [place] [facility] [address] [id number] [place] [address] Jun, [facility] [place] [facility] [address] [id number] [place] [address] Jun, [facility] [place] [facility] [address] [id number] [place] [address] Jun, [facility] [place] [facility] [address] [id number] [place] [address] Jun, [facility] [place] [facility] [address] [id number] [place] [address] Jun, [facility] [place] [facility] [address] [facility] [id number] [place] [address] May, [facility] [place] [facility] [address] [id number] [place] [address] May, [facility] [place] [facility] [address] [id number] [place] [address] May, [facility] [place] [facility] [address] [facility] [id number] [place] [address] May, [facility] [place] [facility] [address] [id number] [place] [address] May, [facility] [place] [facility] [address] [id number] [place] [address] May, [facility] [place] [facility] [address] [id number] [place] [address] May, [facility] [place] [facility] [address] [id number] [place] [address] Apr, [facility] [place] [facility] [address] [id number] [place] [address] Mar, [facility] [place] [facility] [address] [id number] [place] [address] 13 Mar, 2011 [facility] [place] [facility] [address] [id number] [place] [address] 10 Mar, 2011 [facility] [place] [facility] [address] [id number] [place] [address] 10 Mar, 2011 [facility] [place] [facility] [address] [id number] [place] [address] 08 Mar, 2011 [facility] [place] [facility] [address] [id number] [place] [address] 23 Feb, 2011 [facility] [place] [facility] [address] [id number] [place] [address] 14 Feb, 2011 [facility] [place] [facility] [address] [id number] [place] [address] 14 Feb, 2011 [facility] [place] [facility] [address] [id number] [place] [address] 14 Feb, 2011 [facility] [place] [facility] [address] [id number] [place] [address] 07 Feb, 2011 [facility] [place] [facility] [address] [id number] [place] [address] 04 Feb, 2011 [facility] [place] [facility] [address] [facility] [id number] [place] [address] 04 Feb, 2011 [facility] [place] [facility] [address] [id number] [place] [address] 10 Jan, 2011 [facility] [place] [facility] [address] [id number] [place] [address] 12 Dec, 2010 [facility] [place] [facility] [address] [id number] [place] [address] 11 Oct, 2010 [facility] [place] [facility] [address] [id number] [place] [address] Jun, [facility] [place] [facility] [address] [id number] [place] [address] Mar, [facility] [place] [facility] [address] [id number] [place] [address] 23 Mar, 2010 [facility] [address] [id number] [place] [address] 16 Mar, 2010 [facility] [address] [id number] [place] [address] 16 Mar, 2010 [facility] [address] [id number] [place] [address] 15 Mar, 2010 [facility] [address] [id number] [place] [address] 10 Mar, 2010 [facility] [address] [id number] [place] [address] Mar, [facility] [address] [id number] [place] [address] 05 Mar, 2010 [facility] [address] [id number] [place] [address] Mar, [facility] [address] [id number] [place] [address] Mar, [facility] [address] [id number] [place] [address] Jan, [facility] [address] [id number] [place] [address] Jan, [facility] [address] [id number] [place] [address] Jan, [facility] [address] [id number] [place] [address] Nov, [facility] [place] [facility] [address] [id number] [place] [address] 13 Oct, 2009 [facility] [place] [facility] [address] [id number] [place] [address] 31 Mar, 2009 [facility] [address] [id number] [address] Mar, [facility] [address] [id number] [address] Mar, [facility] [address] [id number] [address] Mar, [facility] [address] [id number] [address] Dec, [facility] [id number] [address] August, [facility] [id number] [address] August, [facility] [id number] [address] Jul, [facility] [address] [id number] [address] Jan, [facility] [address] [id number] [address] Jan, IMMUNIZATIONS No Known Immunizations SOCIAL HISTORY Never Assessed REASON FOR VISIT [place] [place] VITAL SIGNS MEDICATIONS Unknown [...]
--- OUTSIDE RECORDS SUMMARY | 2018-09-22 02:26 | XMS REPORT ---
Author Author Migration, Doctor Organization [facility] Address Unknown Phone Unavailable Care Team Providers Care Computer Forensics Analyst Name Role Phone Migration, Doctor Unavailable Unavailable PROBLEMS Type Condition ICD9-CM Code [id number] Code Onset Dates Condition Status SNOMED Code Problem Osteoporosis M81.0 Active 87916110 Problem Fibromyalgia M79.7 Active 57508296 Problem Unspecified abdominal pain R10.9 Active 599846930 Problem Chronic tension-type headache, not intractable G44.229 Active 712343950 Problem Chronic pain syndrome G89.4 Active 648602191 Problem Hypothyroidism, unspecified hypothyroidism type E03.9 Active 23073907 Problem Pancytopenia D61.818 Active 385428949 Problem Right sided sciatica M54.31 Active 30034325 Problem RUQ abdominal pain R10.11 Active 472290267 Problem Vitamin D deficiency E55.9 Active 42785172 Problem Chronic gastritis without bleeding, unspecified gastritis type K29.50 Active 8195864 Problem Vaginal atrophy N95.2 Active 009220212 Problem Hot flashes N95.1 Active 224423043 Problem Primary insomnia F51.01 Active 8712989 Problem Major depression, recurrent F33.9 Active 44476777 Problem Plantar fasciitis M72.2 Active 610046957 Problem Low back pain M54.5 Active 698755684 Problem Trigger point with back pain M54.9 Active 847820845 Problem Polyneuropathy associated with underlying disease G63 Active 920505509 Problem Drug induced constipation K59.03 Active 726551404191920 Problem Chronic prescription opiate use Z79.891 Active 365017824 Problem Porokeratosis Q82.8 Active 240477869 Problem Leukopenia, unspecified type D72.819 Active 19990129 Problem Allergic rhinitis, unspecified allergic rhinitis type J30.9 Active 74819885 Problem Pure hypercholesterolemia E78.00 Active 562920741 Problem Chronic obstructive pulmonary disease, unspecified COPD type J44.9 Active 62491317 Problem History of hepatitis C Z86.19 Active 35555182038627 Problem Other constipation K59.09 Active 644121263 Problem Allergy to intravenous contrast Z91.041 Active 395312203 Problem 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 Active 405199221 Problem Atrial fibrillation, unspecified type I48.91 Active 09700281 ALLERGIES No Information ENCOUNTERS Encounter Location Date Diagnosis [place] [id number] [place] [address] Jul, Atrial fibrillation, unspecified type I48.91 [place] [address] [address] Jul, Chronic pain syndrome G89.4 [place] [address] [address] Jun, Chronic pain syndrome G89.4 [facility] [place] [id number] [place] [address] Jun, Acute bronchitis, unspecified organism J20.9 [place] [address] [address] Jun, Hypothyroidism, unspecified hypothyroidism type E03.9 [place] [id number] [place] [address] Jun, Chronic obstructive pulmonary disease, unspecified COPD type J44.9 ; Chronic pain syndrome G89.4 ; Hypothyroidism, unspecified hypothyroidism type E03.9 ; Allergic rhinitis, unspecified allergic rhinitis type J30.9 and Osteoporosis M81.0 [place] [id number] [place] [address] Jun, [facility] [place] [id number] [place] [address] May, Influenza A J10.1 [place] [address] [address] May, Chronic pain syndrome G89.4 [place] [address] [address] Apr, Chronic pain syndrome G89.4 [facility] [place] [id number] [place] [address] Apr, Acute maxillary sinusitis J01.00 and Sore throat J02.9 [place] [address] [address] Apr, Chronic pain syndrome G89.4 [place] [address] [address] Mar, Trochanteric bursitis of both hips M70.61 [place] [address] [address] Mar, Chronic pain syndrome G89.4 [facility] [place] [address] [address] Feb, Sore throat and laryngitis J06.0 ; Acute streptococcal pharyngitis J02.0 ; Dog scratch W54.8XXA and Cellulitis L03.90 [place] [id number] [place] [address] Feb, Acute maxillary sinusitis J01.00 [place] [address] [address] Feb, Hypothyroidism, unspecified hypothyroidism type E03.9 [place] [address] [address] Feb, Chronic pain syndrome G89.4 [place] [address] [address] Jan, Fibromyalgia M79.7 ; Chronic pain syndrome G89.4 ; Low back pain M54.5 ; Hypothyroidism, unspecified hypothyroidism type E03.9 ; Leukopenia, unspecified type D72.819 ; Pure hypercholesterolemia E78.00 ; Right upper quadrant pain R10.11 ; Encounter for immunization Z23 ; Chronic gastritis without bleeding, unspecified gastritis type K29.50 ; Chronic prescription opiate use Z79.891 and BMI 28.0-28.9,adult Z68.28 [place] [address] [address] Jan, Chronic pain syndrome G89.4 [place] [id number] [place] [address] Dec, Chronic pain syndrome G89.4 [place] [address] [id number] [place] [address] Nov, Onychocryptosis L60.0 [place] [id number] [place] [address] Nov, Chronic pain syndrome G89.4 [place] [address] [address] [id number] [place] [address] Nov, Trochanteric bursitis of both hips M70.61 [place] [address] [id number] [place] [address] Oct, Hypothyroidism, unspecified hypothyroidism type E03.9 and Atrial fibrillation, unspecified type I48.91 [place] [id number] [place] [address] Oct, Fibromyalgia M79.7 ; Chronic pain syndrome G89.4 ; Hypothyroidism, unspecified hypothyroidism type E03.9 ; Overweight (BMI 25.0-29.9) E66.3 and Atrial fibrillation, unspecified type I48.91 [place] [address] [place] [address] Oct, Chronic pain syndrome G89.4 [place] [address] [address] Sep, Chronic pain syndrome G89.4 [place] [id number] [place] [address] August, Somatic dysfunction of lumbar region M99.03 and Somatic dysfunction of pelvis region M99.05 [place] [address] [address] August, Chronic pain syndrome G89.4 [facility] [address] [address] [id number] [place] [address] Jul, Trochanteric bursitis of left hip M70.62 and Trochanteric bursitis, right hip M70.61 [facility] [address] [place] [id number] [place] [address] Jul, [place] [id number] [place] [address] Jul, Chronic pain syndrome G89.4 [place] [id number] [place] [address] Jul, Hypothyroidism, unspecified hypothyroidism type E03.9 [place] [id number] [place] [address] Jul, Hypothyroidism, unspecified hypothyroidism type E03.9 [place] [id number] [place] [address] Jul, Chronic tension-type headache, not intractable G44.229 ; Atrial fibrillation, unspecified type I48.91 ; Chronic pain syndrome G89.4 ; Hypothyroidism, unspecified hypothyroidism type E03.9 ; Pancytopenia D61.818 ; History of hepatitis C Z86.19 ; Vaginal atrophy N95.2 ; RUQ abdominal pain R10.11 ; Chronic prescription opiate use Z79.891 ; Osteoporosis M81.0 and Screening for breast cancer Z12.31 [place] [address] [place] [address] Jun, [place] [address] [id number] [place] [address] May, [place] [address] [id number] [place] [address] May, [place] [address] [address] [id number] [place] [address] May, [place] [address] [place] [address] [id number] [place] [address] Apr, [place] [address] [place] [address] Apr, Hypothyroidism, unspecified hypothyroidism type E03.9 [place] [id number] [place] [address] Apr, Hypothyroidism, unspecified hypothyroidism type E03.9 and Leukopenia, unspecified type D72.819 [place] [address] [place] [address] [id number] [place] [address] Mar, [place] [address] [place] [address] [id number] [place] [address] Mar, Leukopenia, unspecified type D72.819 [place] [address] [id number] [place] [address] Mar, Hypothyroidism, unspecified hypothyroidism type E03.9 and Low hemoglobin D64.9 [place] [address] [address] [id number] [place] [address] Mar, Hypothyroidism, unspecified hypothyroidism type E03.9 [place] [address] [id number] [place] [address] Mar, Osteoporosis M81.0 ; Low hemoglobin D64.9 and Hypothyroidism, unspecified hypothyroidism type E03.9 [place] [address] [id number] [place] [address] Mar, Hypothyroidism, unspecified hypothyroidism type E03.9 ; Bilirubin in urine R82.2 and Pancytopenia D61.818 [place] [address] [place] [address] Feb, [facility] [address] [place] [id number] [place] [address] Feb, Cough R05 and Bronchitis J40 [facility] [place] [id number] [place] [address] 14 Feb, 2017 Other viral agents as the cause of diseases classified elsewhere B97.89 and Acute upper respiratory infection, unspecified J06.9 [place] [id number] [place] [address] Feb, Fibromyalgia M79.7 ; Chronic pain syndrome G89.4 ; Hypothyroidism, unspecified hypothyroidism type E03.9 ; Primary insomnia F51.01 ; Osteoporosis M81.0 ; Vision abnormalities H53.9 ; Pancytopenia D61.818 ; BMI 28.0-28.9,adult Z68.28 and Encounter for immunization Z23 [address] [address] Feb, Neuroma D36.10 and Capsulitis of right foot M77.[address] [address] Feb, [address] [address] Feb, Hypothyroidism, unspecified hypothyroidism type E03.9 [place] [address] [address] Jan, [address] [address] Jan, Atrial fibrillation, unspecified type I48.[address] [address] Jan, [address] [address] Jan, Fibromyalgia M79.7 ; Atrial fibrillation, unspecified type I48.91 ; Pain of left hand M79.642 ; Pain in right hand M79.641 ; Chronic prescription opiate use Z79.891 ; Chronic pain syndrome G89.4 ; Elevated fasting glucose R73.01 and Hypothyroidism, unspecified hypothyroidism type E03.9 [place] [id number] [place] [address] Jan, [place] [address] [place] [address] Dec, Trochanteric bursitis of both hips M70.61 [facility] [id number] [place] [address] Dec, [facility] [address] [place] [id number] [place] [address] Dec, [facility] [address] [address] Nov, [facility] [address] [place] [id number] [place] [address] Nov, Unilateral headache R51 [facility] [address] [address] Nov, [facility] [address] [place] [id number] [place] [address] Oct, Unilateral headache R51 ; 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 and Allergy to intravenous contrast Z91.041 [facility] [address] [place] [id number] [place] [address] Oct, [facility] [address] [place] [id number] [place] [address] Oct, [facility] [address] [place] [id number] [place] [address] Sep, Hypothyroidism, unspecified hypothyroidism type E03.9 [facility] [address] [place] [id number] [place] [address] Sep, Hypothyroidism, unspecified hypothyroidism type E03.9 and Bilirubin in urine R82.2 [facility] [address] [place] [id number] [place] [address] Sep, Trochanteric bursitis of both hips M70.61 [facility] [address] [place] [id number] [place] [address] Sep, Hypothyroidism, unspecified hypothyroidism type E03.9 ; Dysuria R30.0 ; Chronic tension-type headache, not intractable G44.229 and Drug induced constipation K59.03 [facility] [address] [place] [id number] [place] [address] Sep, [facility] [address] [place] [id number] [place] [address] Sep, [facility] [address] [place] [id number] [place] [address] August, [facility] [address] [address] Jul, [facility] [address] [address] Jul, Trochanteric bursitis of right hip M70.61 [place] [address] [id number] [place] [address] Jul, Hypothyroidism, unspecified hypothyroidism type E03.9 [facility] [address] [place] [id number] [place] [address] Jul, Fibromyalgia M79.7 ; Chronic pain syndrome G89.4 ; Hypothyroidism, unspecified hypothyroidism type E03.9 and Other constipation K59.09 [facility] [address] [id number] [place] [address] Jun, Swollen tonsil J35.1 and Strep throat J02.0 [facility] [address] [place] [id number] [place] [address] Jun, [facility] [address] [id number] [place] [address] Jun, Acute maxillary sinusitis J01.00 [facility] [address] [place] [id number] [place] [address] Jun, Hypothyroidism, unspecified hypothyroidism type E03.9 [facility] [address] [id number] [place] [address] Jun, Chronic pain syndrome G89.4 ; Fibromyalgia M79.7 ; Hypothyroidism, unspecified hypothyroidism type E03.9 and Chronic prescription opiate use Z79.891 [place] [address] [place] [address] [id number] [place] [address] 10 May, 2016 [place] [address] [place] [id number] [place] [address] Apr, Hypothyroidism, unspecified hypothyroidism type E03.9 [place] [address] [address] Apr, [place] [address] [address] Apr, Lipid screening Z13.220 and Hypothyroidism, unspecified hypothyroidism type E03.9 [place] [address] [place] [id number] [place] [address] Apr, [place] [address] [address] Mar, Trochanteric bursitis of both hips M70.61 [place] [address] [place] [id number] [place] [address] Mar, [place] [address] [place] [id number] [place] [address] Mar, Plantar fasciitis M72.2 and Porokeratosis Q82.8 [place] [address] [place] [id number] [place] [address] Feb, Lipid screening Z13.220 ; Vitamin D deficiency E55.9 and Hypothyroidism, unspecified hypothyroidism type E03.9 [place] [address] [place] [id number] [place] [address] 16 Feb, 2016 Chronic pain syndrome G89.4 ; Hypothyroidism, unspecified hypothyroidism type E03.9 ; Pancytopenia D61.818 ; Vaginal atrophy N95.2 ; Chronic gastritis without bleeding, unspecified gastritis type K29.50 ; Vitamin D deficiency E55.9 ; Chronic prescription opiate use Z79.891 ; Adverse effect of other opioids, initial encounter T40.2X5A ; Drug induced constipation K59.03 ; Lipid screening Z13.220 and Encounter for immunization Z23 [facility] [id number] [place] [address] Feb, [facility] [address] [place] [id number] [place] [address] Feb, Ingrown toenail L60.0 [facility] [address] [address] Jan, [facility] [address] [place] [id number] [place] [address] Jan, Trochanteric bursitis of both hips M70.61 [facility] [address] [place] [id number] [place] [address] Jan, [facility] [address] [place] [id number] [place] [address] Jan, [facility] [address] [place] [id number] [place] [address] Jan, [facility] [address] [place] [id number] [place] [address] Jan, Right sided sciatica M54.31 [facility] [address] [place] [id number] [place] [address] Dec, Onychomycosis B35.1 [facility] [address] [id number] [place] [address] Dec, [facility] [address] [place] [id number] [place] [address] Dec, [facility] [address] [place] [id number] [place] [address] Dec, [facility] [address] [place] [address] Dec, Osteoarthritis of right hip, unspecified osteoarthritis type M16.11 and Bursitis of right hip M70.71 [facility] [address] [id number] [place] [address] Nov, [facility] [address] [place] [id number] [place] [address] Nov, [facility] [address] [place] [id number] [place] [address] Nov, [facility] [address] [address] Nov, Hypothyroidism, unspecified hypothyroidism type E03.9 ; Vitamin D deficiency E55.9 and History of hepatitis C Z86.19 [place] [address] [place] [id number] [place] [address] Nov, Right upper quadrant pain R10.11 ; History of hepatitis C Z86.19 and Low back pain M54.5 [place] [address] [place] [id number] [place] [address] Oct, Trochanteric bursitis, right hip M70.61 [facility] [address] [place] [id number] [place] [address] Oct, [facility] [address] [place] [id number] [place] [address] Oct, [facility] [address] [place] [id number] [place] [address] Oct, Trochanteric bursitis of both hips M70.61 and Right sided sciatica M54.31 [place] [address] [place] [id number] [place] [address] Oct, Trochanteric bursitis of both hips M70.61 [facility] [address] [place] [id number] [place] [address] 14 Oct, 2015 RUQ abdominal pain R10.11 [facility] [address] [place] [id number] [place] [address] 13 Oct, 2015 Sciatic leg pain M54.30 [place] [address] [place] [id number] [place] [address] Oct, RUQ abdominal pain R10.11 [place] [address] [place] [id number] [place] [address] 07 Oct, 2015 RUQ abdominal pain R10.11 ; History of hepatitis C Z86.19 and Trigger point with back pain M54.9 [place] [address] [address] Sep, [place] [address] [address] Sep, Right sided sciatica M54.31 [place] [address] [address] Sep, Hypothyroidism, unspecified hypothyroidism type E03.9 and Vitamin D deficiency E55.9 [place] [address] [address] Sep, Plantar fasciitis M72.2 and Porokeratosis Q82.8 [place] [address] [address] Sep, Hypothyroidism, unspecified hypothyroidism type E03.9 ; Chronic pain syndrome G89.4 ; Polyneuropathy associated with underlying disease G63 and Vitamin D deficiency E55.9 [place] [address] [place] [id number] [place] [address] August, [place] [address] [place] [id number] [place] [address] Jul, Plantar fasciitis M72.2 [place] [address] [address] Jul, Trochanteric bursitis, right hip M70.61 [place] [address] [place] [id number] [place] [address] Jul, Hypothyroidism, unspecified hypothyroidism type E03.9 [place] [address] [place] [id number] [place] [address] 06 Jul, 2015 Hypothyroidism, unspecified hypothyroidism type E03.9 ; Chronic pain syndrome G89.4 and Polyneuropathy associated with underlying disease G63 [facility] [address] [place] [id number] [place] [address] 10 Jun, 2015 Trochanteric bursitis of both hips M70.61 [place] [address] [place] [id number] [place] [address] 08 Jun, 2015 Vitamin D deficiency E55.9 ; Osteoporosis M81.0 ; Low back pain M54.5 and Plantar fasciitis M72.2 [place] [address] [place] [id number] [place] [address] 26 May, 2015 Vitamin D deficiency E55.9 and Hypothyroidism, unspecified hypothyroidism type E03.9 [place] [address] [place] [id number] [place] [address] 23 May, 2015 Acute maxillary sinusitis J01.00 [place] [address] [place] [id number] [place] [address] 18 May, 2015 Osteoporosis M81.0 and Hypothyroidism, unspecified hypothyroidism type E03.9 [place] [address] [place] [id number] [place] [address] 16 May, 2015 Osteoporosis M81.0 [place] [address] [place] [id number] [place] [address] 15 May, 2015 [place] [address] [place] [id number] [place] [address] Apr, [place] [address] [place] [id number] [place] [address] Apr, Trochanteric bursitis of both hips M70.61 [facility] [id number] [place] [id number] Apr, Hypothyroidism, unspecified hypothyroidism type E03.9 [place] [id number] [place] [phone] Apr, Chronic pain syndrome G89.4 ; Bilateral low back pain with sciatica, sciatica laterality unspecified M54.40 ; Pain in right hip M25.551 ; Pain in left hip M25.552 ; Chronic prescription opiate use Z79.899 ; Primary insomnia F51.01 and Hypothyroidism, unspecified hypothyroidism type E03.9 [place] [address] [id number] Mar, [place] [address] [phone] Feb, [place] [address] [address] Feb, Chronic pain syndrome G89.4 and Major depression F32.9 [place] [address] [address] Feb, Fatigue R53.83 [place] [address] [address] Feb, History of fracture Z87.81 [place] [address] [address] Feb, Major depression, recurrent F33.9 and Generalized anxiety disorder F41.1 [place] [id number] [place] [phone] Feb, [place] [address] [address] Jan, Hypothyroidism, unspecified hypothyroidism type E03.9 [place] [address] [address] Jan, Abdominal pain R10.9 and Hypothyroidism, unspecified hypothyroidism type E03.9 [place] [id number] [place] [phone] Jan, Abdominal pain R10.9 [place] [id number] [place] [phone] Jan, Hypothyroidism, unspecified hypothyroidism type E03.9 [place] [address] [id number] [place] [address] Jan, [place] [id number] [place] [address] Jan, 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 and Hypothyroidism, unspecified hypothyroidism type E03.9 [place] [id number] [place] [address] Jan, 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 ; Abdominal pain R10.9 ; Dyspareunia N94.1 ; Encounter for immunization Z23 ; History of fracture Z87.81 ; Fatigue R53.83 ; Throat fullness R68.89 ; Bruises easily R23.8 ; Hot flashes N95.1 ; Depression F32.9 and Vaginal atrophy N95.2 [place] [id number] [place] [address] Jan, Hypothyroidism, unspecified hypothyroidism type E03.9 [place] [id number] [place] [address] Jan, Unspecified abdominal pain R10.9 ; Chronic obstructive pulmonary disease, unspecified COPD type J44.9 ; Allergic rhinitis, unspecified allergic rhinitis type J30.9 ; Chronic pain syndrome G89.4 ; Hypothyroidism, unspecified hypothyroidism type E03.9 ; Chest pain, unspecified chest pain type R07.9 and Plantar fasciitis M72.2 [place] [id number] [place] [address] Jan, Trochanteric bursitis of both hips M70.61 [place] [id number] [place] [address] Dec, [place] [address] [address] Nov, [facility] [address] [address] Nov, [facility] [address] [address] Nov, Constipation 564.00 [facility] [address] [address] Oct, Chronic pain 338.29 and Hypothyroidism 244.9 [facility] [address] [address] Oct, [facility] [id number] [place] [address] Sep, [facility] [address] [address] Sep, [facility] [address] [address] Sep, [facility] [address] [address] Sep, [facility] [address] [address] Sep, [facility] [address] [address] Sep, [facility] [address] [address] Sep, COPD exacerbation 491.21 ; Chronic pain 338.29 ; Hypothyroidism 244.9 and Pancytopenia 284.19 [facility] [address] [address] August, [facility] [address] [address] Jul, [facility] [address] [address] Jul, [facility] [place] [facility] [address] [id number] [place] [address] Jun, [facility] [place] [facility] [address] [id number] [place] [address] Jun, [facility] [place] [facility] [address] [id number] [place] [address] Jun, [facility] [place] [facility] [address] [id number] [place] [address] Jun, [facility] [place] [facility] [address] [id number] [place] [address] Jun, [facility] [place] [facility] [address] [id number] [place] [address] May, [facility] [place] [facility] [address] [id number] [place] [address] May, [facility] [place] [facility] [address] [id number] [place] [address] May, [facility] [place] [facility] [address] [id number] [place] [address] May, [facility] [place] [facility] [address] [id number] [place] [address] May, [facility] [place] [facility] [address] [id number] [place] [address] May, [facility] [place] [facility] [address] [id number] [address] May, [facility] [place] [facility] [address] [id number] [place] [address] May, [facility] [place] [facility] [address] [id number] [place] [address] May, [facility] [place] [facility] [address] [facility] [id number] [place] [address] May, [facility] [place] [facility] [address] [id number] [place] [address] May, 2014 [facility] [address] [id number] [place] [address] May, [facility] [place] [facility] [address] [id number] [place] [address] May, [facility] [address] [id number] [place] [address] Apr, [facility] [place] [facility] [address] [id number] [place] [address] Apr, [facility] [place] [facility] [address] [id number] [place] [address] Apr, [facility] [place] [facility] [address] [id number] [place] [address] Apr, [facility] [place] [facility] [address] [id number] [place] [address] Apr, [facility] [address] [id number] [place] [address] Apr, [facility] [place] [facility] [address] [id number] [place] [address] Apr, [facility] [address] [id number] [place] [address] Mar, [facility] [place] [facility] [address] [id number] [place] [address] 31 Mar, 2014 [facility] [place] [facility] [address] [id number] [place] [address] 18 Mar, 2014 [facility] [place] [facility] [address] [id number] [place] [address] 18 Mar, 2014 [facility] [place] [facility] [address] [id number] [place] [address] Mar, [facility] [place] [facility] [address] [id number] [place] [address] Mar, [facility] [place] [facility] [address] [id number] [place] [address] Feb, [facility] [place] [facility] [address] [id number] [place] [address] Feb, [facility] [place] [facility] [address] [id number] [place] [address] Feb, [facility] [place] [facility] [address] [id number] [place] [address] Feb, [facility] [place] [facility] [address] [id number] [place] [address] Feb, [facility] [place] [facility] [address] [id number] [place] [address] Feb, [facility] [place] [facility] [address] [id number] [place] [address] Jan, [facility] [place] [facility] [address] [id number] [place] [address] Jan, [facility] [place] [facility] [address] [id number] [place] [address] Jan, [facility] [place] [facility] [address] [id number] [place] [address] Jan, [facility] [place] [facility] [address] [id number] [address] Jan, [facility] [place] [facility] [address] [id number], [place] [address] Jan, [facility] [place] [facility] [address] [id number] [place] [address] Jan, [facility] [place] [facility] [address] [id number] [place] [address] Jan, [facility] [place] [facility] [address] [id number] [place] [address] Dec, [facility] [place] [facility] [address] [id number] [place] [address] Dec, [facility] [place] [facility] [address] [id number] [place] [address] Dec, [facility] [place] [facility] [address] [id number] [place] [address] Dec, [facility] [place] [facility] [address] [id number] [place] [address] Dec, [facility] [place] [facility] [address] [id number] [place] [address] Dec, [facility] [place] [facility] [address] [id number] [place] [address] Dec, [facility] [place] [facility] [address] [id number] [place] [address] Nov, [facility] [place] [facility] [address] [id number] [place] [address] Nov, [facility] [place] [facility] [address] [id number] [place] [address] Oct, [facility] [place] [facility] [address] [id number] [place] [address] Oct, [facility] [place] [facility] [address] [id number] [place] [address] Oct, [facility] [place] [facility] [address] [id number] [place] [address] Oct, [facility] [place] [facility] [address] [id number], [place] [address] Sep, [facility] [place] [facility] [address] [id number] [place] [address] Sep, [facility] [place] [facility] [address] [id number] [place] [address] Sep, [facility] [place] [facility] [address] [id number] [place] [address] Sep, [facility] [place] [facility] [address] [id number] [place] [address] Sep, [facility] [place] [facility] [address] [id number] [place] [address] Sep, [facility] [place] [facility] [address] [id number] [place] [address] Sep, [facility] [place] [facility] [address] [id number] [place] [address] Sep, [facility] [place] [facility] [address] [id number] [place] [address] August, [facility] [place] [facility] [address] [id number] [place] [address] August, [facility] [place] [facility] [address] [id number] [place] [address] August, [facility] [place] [facility] [address] [id number] [place] [address] August, [facility] [place] [facility] [address] [id number] [place] [address] Jul, [facility] [place] [facility] [address] [id number] [place] [address] Jul, [facility] [place] [facility] [address] [id number] [place] [address] Jul, [facility] [place] [facility] [address] [id number] [place] [address] 24 Jul, 2013 [facility] [place] [facility] [address] [id number] [place] [address] 17 Jul, 2013 [facility] [place] [facility] [address] [id number] [place] [address] 16 Jul, 2013 [facility] [place] [facility] [address] [id number] [place] [address] 15 Jul, 2013 [facility] [place] [facility] [address] [id number] [place] [address] 15 Jul, 2013 [facility] [place] [facility] [address] [id number] [place] [address] 18 Jun, 2013 [facility] [place] [facility] [address] [id number] [place] [address] 18 Jun, 2013 [facility] [place] [facility] [address] [id number] [place] [address] Jun, [facility] [place] [facility] [address] [id number] [place] [address] Jun, [facility] [place] [facility] [address] [id number] [place] [address] Jun, [facility] [place] [facility] [address] [id number] [place] [address] Jun, [facility] [place] [facility] [address] [id number] [place] [address] Jun, [facility] [place] [facility] [address] [id number] [place] [address] Jun, [facility] [place] [facility] [address] [id number] [place] [address] May, [facility] [place] [facility] [address] [id number] [place] [address] May, [facility] [place] [facility] [address] [id number] [place] [address] Apr, [facility] [place] [facility] [address] [id number] [place] [address] Apr, [facility] [place] [facility] [address] [id number] [place] [address] Mar, [facility] [place] [facility] [address] [id number] [place] [address] Mar, [facility] [place] [facility] [address] [id number] [place] [address] Mar, [facility] [place] [facility] [address] [id number] [place] [address] 18 Mar, 2013 [facility] [address] [id number] [place] [address] 18 Mar, 2013 [facility] [address] [id number] [place] [address] Mar, [facility] [address] [id number] [place] [address] Mar, [facility] [address] [id number] [place] [address] Feb, [facility] [address] [id number] [place] [address] Feb, [facility] [address] [id number] [place] [address] Feb, [facility] [address] [id number] [place] [address] Feb, [facility] [address] [id number] [place] [address] Feb, [facility] [address] [id number] [place] [address] Feb, [facility] [address] [facility] [id number] [place] [address] 26 Dec, 2012 [facility] [place] [facility] [address] [id number] [place] [address] 18 Dec, 2012 [facility] [address] [id number] [place] [address] 13 Dec, 2012 [facility] [place] [facility] [address] [id number] [place] [address] 13 Dec, 2012 [facility] [place] [facility] [address] [id number] [place] [address] 06 Dec, 2012 [facility] [address] [id number] [place] [address] Nov, [facility] [address] [id number] [place] [address] Nov, [facility] [address] [id number] [place] [address] Oct, [facility] [address] [id number] [place] [address] August, [facility] [place] [facility] [address] [id number] [place] [address] August, [facility] [address] [id number] [place] [address] August, [facility] [address] [id number] [place] [address] Jul, [facility] [address] [id number] [place] [address] Jul, [facility] [address] [id number] [place] [address] Jul, [facility] [address] [id number] [place] [address] Jun, [facility] [address] [id number] [place] [address] Jun, [facility] [place] [facility] [address] [id number] [place] [address] Jun, [facility] [place] [facility] [address] [id number], [place] [address] Jun, [facility] [place] [facility] [address] [id number] [place] [address] 18 Jun, 2012 [facility] [place] [facility] [address] [id number] [place] [address] 15 Jun, 2012 [facility] [place] [facility] [address] [id number] [place] [address] Jun, [facility] [place] [facility] [address] [id number] [place] [address] 18 May, 2012 [facility] [address] [id number] [place] [address] May, [facility] [address] [id number] [place] [address] 06 May, 2012 [facility] [address] [id number] [place] [address] 05 May, 2012 [facility] [address] [id number] [place] [address] Apr, [facility] [address] [id number] [place] [address] Apr, [facility] [address] [id number] [place] [address] Apr, [facility] [address] [id number] [place] [address] Mar, [facility] [address] [id number] [place] [address] Mar, [facility] [address] [id number] [place] [address] Mar, [facility] [address] [facility] [id number] [place] [address] Mar, [facility] [address] [id number] [place] [address] Mar, [facility] [place] [facility] [address] [id number] [place] [address] Mar, [facility] [place] [facility] [address] [id number] [place] [address] Mar, [facility] [place] [facility] [address] [id number] [place] [address] Mar, [facility] [address] [id number] [place] [address] Feb, [facility] [place] [facility] [address] [id number] [place] [address] Feb, [facility] [place] [facility] [address] [id number] [place] [address] Feb, [facility] [place] [facility] [address] [id number] [place] [address] Jan, [facility] [place] [facility] [address] [id number] [place] [address] Jan, [facility] [place] [facility] [address] [id number] [place] [address] Jan, [facility] [place] [facility] [address] [id number] [place] [address] Jan, [facility] [place] [facility] [address] [id number] [place] [address] Jan, [facility] [place] [facility] [address] [id number] [place] [address] Jan, [facility] [place] [facility] [address] [id number] [place] [address] Jan, [facility] [place] [facility] [address] [id number] [place] [address] Dec, [facility] [place] [facility] [address] [id number] [place] [address] 24 Dec, 2011 [facility] [place] [facility] [address] [id number] [place] [address] Dec, [facility] [place] [facility] [address] [id number] [place] [address] 30 Nov, 2011 [facility] [place] [facility] [address] [id number] [place] [address] Nov, [facility] [place] [facility] [address] [id number] [place] [address] Nov, [facility] [place] [facility] [address] [id number] [place] [address] Nov, [facility] [place] [facility] [address] [id number] [place] [address] Oct, [facility] [place] [facility] [address] [id number] [place] [address] Oct, [facility] [place] [facility] [address] [id number] [place] [address] Oct, [facility] [place] [facility] [address] [id number] [place] [address] Sep, [facility] [place] [facility] [address] [id number] [place] [address] Sep, [facility] [place] [facility] [address] [id number] [place] [address] Sep, [facility] [place] [facility] [address] [id number] [place] [address] Sep, [facility] [place] [facility] [address] [id number] [place] [address] Sep, [facility] [place] [facility] [address] [id number] [place] [address] Sep, [facility] [place] [facility] [address] [id number] [place] [address] August, [facility] [place] [facility] [address] [id number] [place] [address] Jul, [facility] [place] [facility] [address] [id number] [place] [address] Jul, [facility] [place] [facility] [address] [id number] [place] [address] Jul, [facility] [place] [facility] [address] [id number] [place] [address] Jul, [facility] [place] [facility] [address] [id number] [place] [address] Jul, [facility] [place] [facility] [address] [id number] [place] [address] 29 Jun, 2011 [facility] [address] [id number] [place] [address] 27 Jun, 2011 [facility] [place] [facility] [address] [id number] [place] [address] 15 Jun, 2011 [facility] [place] [facility] [address] [id number] [place] [address] 15 Jun, 2011 [facility] [place] [facility] [address] [id number] [place] [address] 09 Jun, 2011 [facility] [place] [facility] [address] [id number] [place] [address] May, [facility] [place] [facility] [address] [id number] [place] [address] May, [facility] [place] [facility] [address] [id number] [place] [address] May, [facility] [place] [facility] [address] [id number] [place] [address] May, [facility] [place] [facility] [address] [facility] [id number] [place] [address] May, [facility] [place] [facility] [address] [facility] [id number] [place] [address] May, [facility] [place] [facility] [address] [facility] [id number] [place] [address] May, [facility] [place] [facility] [address] [id number] [place] [address] Apr, [facility] [place] [facility] [address] [id number] [place] [address] Mar, [facility] [place] [facility] [address] [id number] [place] [address] Mar, [facility] [place] [facility] [address] [id number] [place] [address] Mar, [facility] [place] [facility] [address] [id number] [place] [address] 10 Mar, 2011 [facility] [place] [facility] [address] [id number] [place] [address] Mar, [facility] [place] [facility] [address] [id number] [place] [address] Feb, [facility] [place] [facility] [address] [id number] [place] [address] Feb, [facility] [place] [facility] [address] [id number] [place] [address] Feb, [facility] [place] [facility] [address] [id number] [place] [address] Feb, [facility] [place] [facility] [address] [id number] [place] [address] Feb, [facility] [place] [facility] [address] [id number] [place] [address] Feb, [facility] [place] [facility] [address] [id number] [place] [address] Feb, [facility] [place] [facility] [address] [id number] [place] [address] Jan, [facility] [place] [facility] [address] [id number], [place] [address] Dec, [facility] [place] [facility] [address] [id number], [place] [address] Oct, [facility] [place] [facility] [address] [id number] [place] [address] Jun, [facility] [place] [facility] [address] [id number] [place] [address] Mar, [facility] [place] [facility] [address] [id number] [place] [address] Mar, [facility] [place] [facility] [address] [id number] [place] [address] 16 Mar, 2010 [facility] [address] [id number] [place] [address] 16 Mar, 2010 [facility] [address] [id number] [place] [address] 15 Mar, 2010 [facility] [address] [id number] [place] [address] 10 Mar, 2010 [facility] [address] [id number] [place] [address] 10 Mar, 2010 [facility] [address] [id number] [place] [address] 05 Mar, 2010 [facility] [address] [id number] [place] [address] 03 Mar, 2010 [facility] [address] [id number] [place] [address] 02 Mar, 2010 [facility] [address] [id number] [place] [address] 22 Jan, 2010 [facility] [address] [id number] [place] [address] Jan, [facility] [address] [id number] [place] [address] Jan, [facility] [address] [id number] [place] [address] Nov, [facility] [address] [id number] [place] [address] 13 Oct, 2009 [facility] [address] [id number] [place] [address] 31 Mar, 2009 [facility] [address] [id number] [place] [address] 20 Mar, 2009 [facility] [address] [id number] [place] [address] Mar, [facility] [address] [id number] [address] Mar, [facility] [address] [id number], [place] [address] Dec, [facility] [address] [id number] [address] August, [facility] [address] [id number], [place] [address] August, [facility] [address] [id number] [address] Jul, [facility] [address] [id number] [address] Jan, [facility] [address] [id number], [place] [address] Jan, IMMUNIZATIONS No Known Immunizations SOCIAL HISTORY Never Assessed REASON FOR VISIT EMR-[facility] PLAN OF CARE VITAL SIGNS MEDICATIONS Unknown [...] September 1995 Surgical History hysterectomy complete- in 30's. Surgical History cholecystectomy Surgical History bladder surgery Surgical History orthopedic surgery--left foot Surgical History Thyroid surgery-Ablation Surgical History colonoscopy - Dr. Syed 10/2013 Surgical History EGD - Dr. Syed 2016 Hospitalization History surgeries Hospitalization History multiple hospital stays for PNA
--- OUTSIDE RECORDS SUMMARY | 2018-09-22 02:27 | XMS REPORT ---
Author Author Migration, Doctor Organization [facility] Address Unknown Phone Unavailable Care Team Providers Care Moss Picker Name Role Phone Migration, Doctor Unavailable Unavailable PROBLEMS Type Condition ICD9-CM Code SFS56-SM Code Onset Dates Condition Status SNOMED Code Problem Osteoporosis M81.0 Active 59016590 Problem Fibromyalgia M79.7 Active 78582403 Problem Unspecified abdominal pain R10.9 Active 852429165 Problem Chronic tension-type headache, not intractable G44.229 Active 997061138 Problem Chronic pain syndrome G89.4 Active 072874497 Problem Hypothyroidism, unspecified hypothyroidism type E03.9 Active 90227961 Problem Pancytopenia D61.818 Active 074600195 Problem Right sided sciatica M54.31 Active 49918773 Problem RUQ abdominal pain R10.11 Active 358438667 Problem Vitamin D deficiency E55.9 Active 08992725 Problem Chronic gastritis without bleeding, unspecified gastritis type K29.50 Active 4268139 Problem Vaginal atrophy N95.2 Active 166746915 Problem Hot flashes N95.1 Active 034171021 Problem Primary insomnia F51.01 Active 1978787 Problem Major depression, recurrent F33.9 Active 66544922 Problem Plantar fasciitis M72.2 Active 998598978 Problem Low back pain M54.5 Active 210448677 Problem Trigger point with back pain M54.9 Active 354688919 Problem Polyneuropathy associated with underlying disease G63 Active 765256498 Problem Drug induced constipation K59.03 Active 482695414611994 Problem Chronic prescription opiate use Z79.891 Active 775649027 Problem Porokeratosis Q82.8 Active 958457131 Problem Leukopenia, unspecified type D72.819 Active 45219686 Problem Allergic rhinitis, unspecified allergic rhinitis type J30.9 Active 95303555 Problem Pure hypercholesterolemia E78.00 Active 095901243 Problem Chronic obstructive pulmonary disease, unspecified COPD type J44.9 Active 80517552 Problem History of hepatitis C Z86.19 Active 00749438980219 Problem Other constipation K59.09 Active 283031108 Problem Allergy to intravenous contrast Z91.041 Active 622214433 Problem 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 Active 275273654 Problem Atrial fibrillation, unspecified type I48.91 Active 56637865 ALLERGIES No Information ENCOUNTERS Encounter Location Date Diagnosis [place] [address] [place] [id number] [place] [address] Jul, Atrial fibrillation, unspecified type I48.91 [place] [address] [address] Jul, Chronic pain syndrome G89.4 [place] [address] [address] Jun, Chronic pain syndrome G89.4 [facility] [place] [address] [place] [id number] [place] [address] Jun, Acute bronchitis, unspecified organism J20.9 [place] [address] [address] Jun, Hypothyroidism, unspecified hypothyroidism type E03.9 [place] [address] [place] [id number] [place] [address] Jun, Chronic obstructive pulmonary disease, unspecified COPD type J44.9 ; Chronic pain syndrome G89.4 ; Hypothyroidism, unspecified hypothyroidism type E03.9 ; Allergic rhinitis, unspecified allergic rhinitis type J30.9 and Osteoporosis M81.0 [place] [address] [place] [id number] [place] [address] Jun, [facility] [place] [address] [place] [id number] [place] [address] May, Influenza A J10.1 [place] [address] [address] May, Chronic pain syndrome G89.4 [place] [address] [address] Apr, Chronic pain syndrome G89.4 [facility] [place] [address] [place] [id number] [place] [address] Apr, Acute maxillary sinusitis J01.00 and Sore throat J02.9 [place] [address] [address] Apr, Chronic pain syndrome G89.4 [place] [address] [address] Mar, Trochanteric bursitis of both hips M70.61 [place] [address] [address] Mar, Chronic pain syndrome G89.4 [facility] [place] [address] [address] Feb, Sore throat and laryngitis J06.0 ; Acute streptococcal pharyngitis J02.0 ; Dog scratch W54.8XXA and Cellulitis L03.90 [place] [address] [place] [id number] [place] [address] Feb, Acute maxillary sinusitis J01.00 [place] [address] [address] Feb, Hypothyroidism, unspecified hypothyroidism type E03.9 [place] [address] [address] Feb, Chronic pain syndrome G89.4 [place] [address] [address] Jan, Fibromyalgia M79.7 ; Chronic pain syndrome G89.4 ; Low back pain M54.5 ; Hypothyroidism, unspecified hypothyroidism type E03.9 ; Leukopenia, unspecified type D72.819 ; Pure hypercholesterolemia E78.00 ; Right upper quadrant pain R10.11 ; Encounter for immunization Z23 ; Chronic gastritis without bleeding, unspecified gastritis type K29.50 ; Chronic prescription opiate use Z79.891 and BMI 28.0-28.9,adult Z68.28 [place] [address] [address] Jan, Chronic pain syndrome G89.4 [place] [address] [place] [id number] [place] [address] Dec, Chronic pain syndrome G89.4 [place] [address] [place] [id number] [place] [address] Nov, Onychocryptosis L60.0 [place] [address] [place] [id number] [place] [address] Nov, Chronic pain syndrome G89.4 [place] [address] [place] [id number] [place] [address] Nov, Trochanteric bursitis of both hips M70.61 [place] [address] [place] [id number] [place] [address] Oct, Hypothyroidism, unspecified hypothyroidism type E03.9 and Atrial fibrillation, unspecified type I48.91 [place] [address] [place] [id number] [place] [address] Oct, Fibromyalgia M79.7 ; Chronic pain syndrome G89.4 ; Hypothyroidism, unspecified hypothyroidism type E03.9 ; Overweight (BMI 25.0-29.9) E66.3 and Atrial fibrillation, unspecified type I48.91 [place] [id number] [place] [address] Oct, Chronic pain syndrome G89.4 [place] [address] [address] Sep, Chronic pain syndrome G89.4 [place] [address] [place] [id number] [place] [address] August, Somatic dysfunction of lumbar region M99.03 and Somatic dysfunction of pelvis region M99.05 [place] [address] [address] August, Chronic pain syndrome G89.4 [facility] [address] [place] [id number] [place] [address] Jul, Trochanteric bursitis of left hip M70.62 and Trochanteric bursitis, right hip M70.61 [facility] [address] [place] [id number] [place] [address] Jul, [place] [address] [place] [id number] [place] [address] Jul, Chronic pain syndrome G89.4 [place] [address] [place] [id number] [place] [address] Jul, Hypothyroidism, unspecified hypothyroidism type E03.9 [place] [address] [place] [id number] [place] [address] Jul, Hypothyroidism, unspecified hypothyroidism type E03.9 [place] [address] [place] [id number] [place] [address] Jul, Chronic tension-type headache, not intractable G44.229 ; Atrial fibrillation, unspecified type I48.91 ; Chronic pain syndrome G89.4 ; Hypothyroidism, unspecified hypothyroidism type E03.9 ; Pancytopenia D61.818 ; History of hepatitis C Z86.19 ; Vaginal atrophy N95.2 ; RUQ abdominal pain R10.11 ; Chronic prescription opiate use Z79.891 ; Osteoporosis M81.0 and Screening for breast cancer Z12.31 [place] [id number] [place] [address] Jun, [place] [address] [place] [id number] [place] [address] May, [place] [address] [place] [id number] [place] [address] May, [place] [address] [place] [id number] [place] [address] May, [place] [address] [place] [id number] [place] [address] Apr, [place] [id number] [place] [address] Apr, Hypothyroidism, unspecified hypothyroidism type E03.9 [place] [address] [place] [id number] [place] [address] Apr, Hypothyroidism, unspecified hypothyroidism type E03.9 and Leukopenia, unspecified type D72.819 [place] [address] [place] [id number] [place] [address] Mar, [place] [address] [place] [id number] [place] [address] Mar, Leukopenia, unspecified type D72.819 [place] [address] [place] [id number] [place] [address] Mar, Hypothyroidism, unspecified hypothyroidism type E03.9 and Low hemoglobin D64.9 [place] [address] [place] [id number] [place] [address] Mar, Hypothyroidism, unspecified hypothyroidism type E03.9 [place] [address] [place] [id number] [place] [address] Mar, Osteoporosis M81.0 ; Low hemoglobin D64.9 and Hypothyroidism, unspecified hypothyroidism type E03.9 [place] [address] [place] [id number] [place] [address] Mar, Hypothyroidism, unspecified hypothyroidism type E03.9 ; Bilirubin in urine R82.2 and Pancytopenia D61.818 [place] [id number] [place] [address] Feb, [facility] [address] [place] [id number] [place] [address] Feb, Cough R05 and Bronchitis J40 [facility] [place] [address] [place] [id number] [place] [address] 14 Feb, 2017 Other viral agents as the cause of diseases classified elsewhere B97.89 and Acute upper respiratory infection, unspecified J06.9 [place] [id number] [place] [address] Feb, Fibromyalgia M79.7 ; Chronic pain syndrome G89.4 ; Hypothyroidism, unspecified hypothyroidism type E03.9 ; Primary insomnia F51.01 ; Osteoporosis M81.0 ; Vision abnormalities H53.9 ; Pancytopenia D61.818 ; BMI 28.0-28.9,adult Z68.28 and Encounter for immunization Z23 [address] [address] Feb, Neuroma D36.10 and Capsulitis of right foot M77.[address] [address] Feb, [address] [address] Feb, Hypothyroidism, unspecified hypothyroidism type E03.9 [place] [address] [address] Jan, [address] [address] Jan, Atrial fibrillation, unspecified type I48.[address] [address] Jan, [address] [address] Jan, Fibromyalgia M79.7 ; Atrial fibrillation, unspecified type I48.91 ; Pain of left hand M79.642 ; Pain in right hand M79.641 ; Chronic prescription opiate use Z79.891 ; Chronic pain syndrome G89.4 ; Elevated fasting glucose R73.01 and Hypothyroidism, unspecified hypothyroidism type E03.9 [place] [id number] [place] [address] Jan, [place] [id number] [place] [address] Dec, Trochanteric bursitis of both hips M70.61 [facility] [address] [place] [id number] [place] [address] Dec, [facility] [address] [place] [id number] [place] [address] Dec, [facility] [address] [address] Nov, [facility] [address] [place] [id number] [place] [address] Nov, Unilateral headache R51 [facility] [address] [address] Nov, [facility] [address] [place] [id number] [place] [address] Oct, Unilateral headache R51 ; 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 and Allergy to intravenous contrast Z91.041 [facility] [address] [place] [id number] [place] [address] Oct, [facility] [address] [place] [id number] [place] [address] Oct, [facility] [address] [place] [id number] [place] [address] Sep, Hypothyroidism, unspecified hypothyroidism type E03.9 [facility] [address] [place] [id number] [place] [address] Sep, Hypothyroidism, unspecified hypothyroidism type E03.9 and Bilirubin in urine R82.2 [facility] [address] [place] [id number] [place] [address] Sep, Trochanteric bursitis of both hips M70.61 [facility] [address] [place] [id number] [place] [address] Sep, Hypothyroidism, unspecified hypothyroidism type E03.9 ; Dysuria R30.0 ; Chronic tension-type headache, not intractable G44.229 and Drug induced constipation K59.03 [facility] [address] [id number] [place] [address] Sep, [facility] [address] [place] [id number] [place] [address] Sep, [facility] [address] [place] [id number] [place] [address] August, [facility] [address] [address] Jul, [facility] [address] [address] Jul, Trochanteric bursitis of right hip M70.61 [place] [address] [place] [id number] [place] [address] Jul, Hypothyroidism, unspecified hypothyroidism type E03.9 [facility] [address] [id number] [place] [address] Jul, Fibromyalgia M79.7 ; Chronic pain syndrome G89.4 ; Hypothyroidism, unspecified hypothyroidism type E03.9 and Other constipation K59.09 [facility] [address] [place] [id number] [place] [address] Jun, Swollen tonsil J35.1 and Strep throat J02.0 [facility] [address] [place] [id number] [place] [address] Jun, [facility] [address] [place] [id number] [place] [address] Jun, Acute maxillary sinusitis J01.00 [facility] [address] [place] [id number] [place] [address] Jun, Hypothyroidism, unspecified hypothyroidism type E03.9 [facility] [address] [id number] [place] [address] Jun, Chronic pain syndrome G89.4 ; Fibromyalgia M79.7 ; Hypothyroidism, unspecified hypothyroidism type E03.9 and Chronic prescription opiate use Z79.891 [place] [address] [place] [id number] [place] [address] 10 May, 2016 [place] [address] [place] [id number] [place] [address] Apr, Hypothyroidism, unspecified hypothyroidism type E03.9 [place] [address] [address] Apr, [place] [address] [address] Apr, Lipid screening Z13.220 and Hypothyroidism, unspecified hypothyroidism type E03.9 [place] [address] [place] [id number] [place] [address] Apr, [place] [address] [address] Mar, Trochanteric bursitis of both hips M70.61 [place] [address] [place] [id number] [place] [address] Mar, [place] [address] [place] [id number] [place] [address] Mar, Plantar fasciitis M72.2 and Porokeratosis Q82.8 [place] [address] [place] [id number] [place] [address] Feb, Lipid screening Z13.220 ; Vitamin D deficiency E55.9 and Hypothyroidism, unspecified hypothyroidism type E03.9 [place] [address] [place] [id number] [place] [address] 16 Feb, 2016 Chronic pain syndrome G89.4 ; Hypothyroidism, unspecified hypothyroidism type E03.9 ; Pancytopenia D61.818 ; Vaginal atrophy N95.2 ; Chronic gastritis without bleeding, unspecified gastritis type K29.50 ; Vitamin D deficiency E55.9 ; Chronic prescription opiate use Z79.891 ; Adverse effect of other opioids, initial encounter T40.2X5A ; Drug induced constipation K59.03 ; Lipid screening Z13.220 and Encounter for immunization Z23 [facility] [address] [place] [id number] [place] [address] Feb, [facility] [address] [place] [id number] [place] [address] Feb, Ingrown toenail L60.0 [facility] [address] [address] Jan, [facility] [address] [place] [id number] [place] [address] Jan, Trochanteric bursitis of both hips M70.61 [facility] [address] [place] [id number] [place] [address] Jan, [facility] [address] [place] [id number] [place] [address] Jan, [facility] [address] [place] [id number] [place] [address] Jan, [facility] [address] [place] [id number] [place] [address] Jan, Right sided sciatica M54.31 [facility] [address] [id number] [place] [address] Dec, Onychomycosis B35.1 [facility] [address] [id number] [place] [address] Dec, [facility] [address] [place] [id number] [place] [address] Dec, [facility] [address] [id number] [place] [address] Dec, [facility] [id number] [place] [address] Dec, Osteoarthritis of right hip, unspecified osteoarthritis type M16.11 and Bursitis of right hip M70.71 [facility] [address] [id number] [place] [address] Nov, [facility] [address] [place] [id number] [place] [address] Nov, [facility] [address] [id number] [place] [address] Nov, [facility] [address] [address] Nov, Hypothyroidism, unspecified hypothyroidism type E03.9 ; Vitamin D deficiency E55.9 and History of hepatitis C Z86.19 [place] [address] [place] [id number] [place] [address] Nov, Right upper quadrant pain R10.11 ; History of hepatitis C Z86.19 and Low back pain M54.5 [place] [address] [place] [id number] [place] [address] Oct, Trochanteric bursitis, right hip M70.61 [facility] [address] [place] [id number] [place] [address] Oct, [facility] [address] [place] [id number] [place] [address] Oct, [facility] [address] [place] [id number] [place] [address] Oct, Trochanteric bursitis of both hips M70.61 and Right sided sciatica M54.31 [place] [address] [place] [id number] [place] [address] Oct, Trochanteric bursitis of both hips M70.61 [facility] [address] [place] [id number] [place] [address] 14 Oct, 2015 RUQ abdominal pain R10.11 [facility] [address] [place] [id number] [place] [address] 13 Oct, 2015 Sciatic leg pain M54.30 [place] [address] [place] [id number] [place] [address] Oct, RUQ abdominal pain R10.11 [place] [address] [place] [id number] [place] [address] 07 Oct, 2015 RUQ abdominal pain R10.11 ; History of hepatitis C Z86.19 and Trigger point with back pain M54.9 [place] [address] [address] Sep, [place] [address] [address] Sep, Right sided sciatica M54.31 [place] [address] [address] Sep, Hypothyroidism, unspecified hypothyroidism type E03.9 and Vitamin D deficiency E55.9 [place] [address] [address] Sep, Plantar fasciitis M72.2 and Porokeratosis Q82.8 [place] [address] [address] Sep, Hypothyroidism, unspecified hypothyroidism type E03.9 ; Chronic pain syndrome G89.4 ; Polyneuropathy associated with underlying disease G63 and Vitamin D deficiency E55.9 [place] [address] [place] [id number] [place] [address] August, [place] [address] [place] [id number] [place] [address] Jul, Plantar fasciitis M72.2 [place] [address] [address] Jul, Trochanteric bursitis, right hip M70.61 [place] [address] [place] [id number] [place] [address] Jul, Hypothyroidism, unspecified hypothyroidism type E03.9 [place] [address] [place] [id number] [place] [address] 06 Jul, 2015 Hypothyroidism, unspecified hypothyroidism type E03.9 ; Chronic pain syndrome G89.4 and Polyneuropathy associated with underlying disease G63 [facility] [address] [place] [id number] [place] [address] 10 Jun, 2015 Trochanteric bursitis of both hips M70.61 [place] [address] [place] [id number] [place] [address] 08 Jun, 2015 Vitamin D deficiency E55.9 ; Osteoporosis M81.0 ; Low back pain M54.5 and Plantar fasciitis M72.2 [place] [address] [place] [id number] [place] [address] 26 May, 2015 Vitamin D deficiency E55.9 and Hypothyroidism, unspecified hypothyroidism type E03.9 [place] [address] [place] [id number] [place] [address] 23 May, 2015 Acute maxillary sinusitis J01.00 [place] [address] [place] [id number] [place] [address] 18 May, 2015 Osteoporosis M81.0 and Hypothyroidism, unspecified hypothyroidism type E03.9 [place] [address] [place] [id number] [place] [address] 16 May, 2015 Osteoporosis M81.0 [place] [address] [place] [id number] [place] [address] 15 May, 2015 [place] [address] [place] [id number] [place] [address] Apr, [place] [address] [place] [id number] [place] [address] Apr, Trochanteric bursitis of both hips M70.61 [facility] [address] [id number] [place] [address] Apr, Hypothyroidism, unspecified hypothyroidism type E03.9 [place] [address] [place] [id number] [place] [id number] Apr, Chronic pain syndrome G89.4 ; Bilateral low back pain with sciatica, sciatica laterality unspecified M54.40 ; Pain in right hip M25.551 ; Pain in left hip M25.552 ; Chronic prescription opiate use Z79.899 ; Primary insomnia F51.01 and Hypothyroidism, unspecified hypothyroidism type E03.9 [place] [address] [id number] Mar, [place] [address] [id number] Feb, [place] [address] [id number] Feb, Chronic pain syndrome G89.4 and Major depression F32.9 [place] [address] [id number] Feb, Fatigue R53.83 [place] [address] [address] Feb, History of fracture Z87.81 [place] [address] [address] Feb, Major depression, recurrent F33.9 and Generalized anxiety disorder F41.1 [place] [id number] [place] [id number] Feb, [place] [address] [address] Jan, Hypothyroidism, unspecified hypothyroidism type E03.9 [place] [address] [address] Jan, Abdominal pain R10.9 and Hypothyroidism, unspecified hypothyroidism type E03.9 [place] [id number] [place] [id number] Jan, Abdominal pain R10.9 [place] [id number] [place] [place] [address] Jan, Hypothyroidism, unspecified hypothyroidism type E03.9 [place] [id number] [place] [address] Jan, [place] [id number] [place] [address] Jan, 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 and Hypothyroidism, unspecified hypothyroidism type E03.9 [place] [id number] [place] [address] Jan, 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 ; Abdominal pain R10.9 ; Dyspareunia N94.1 ; Encounter for immunization Z23 ; History of fracture Z87.81 ; Fatigue R53.83 ; Throat fullness R68.89 ; Bruises easily R23.8 ; Hot flashes N95.1 ; Depression F32.9 and Vaginal atrophy N95.2 [place] [id number] [place] [address] Jan, Hypothyroidism, unspecified hypothyroidism type E03.9 [place] [id number] [place] [address] Jan, Unspecified abdominal pain R10.9 ; Chronic obstructive pulmonary disease, unspecified COPD type J44.9 ; Allergic rhinitis, unspecified allergic rhinitis type J30.9 ; Chronic pain syndrome G89.4 ; Hypothyroidism, unspecified hypothyroidism type E03.9 ; Chest pain, unspecified chest pain type R07.9 and Plantar fasciitis M72.2 [place] [id number] [place] [address] Jan, Trochanteric bursitis of both hips M70.61 [place] [id number] [place] [address] Dec, [place] [address] [address] Nov, [facility] [address] [address] Nov, [facility] [address] [address] Nov, Constipation 564.00 [facility] [address] [address] Oct, Chronic pain 338.29 and Hypothyroidism 244.9 [facility] [address] [address] Oct, [facility] [id number] [place] [address] Sep, [facility] [address] [address] Sep, [facility] [address] [address] Sep, [facility] [address] [address] Sep, [facility] [address] [address] Sep, [facility] [address] [address] Sep, [facility] [address] [address] Sep, COPD exacerbation 491.21 ; Chronic pain 338.29 ; Hypothyroidism 244.9 and Pancytopenia 284.19 [facility] [address] [address] August, [facility] [address] [address] Jul, [facility] [address] [address] Jul, [facility] [place] [facility] [address] [id number] [place] [address] Jun, [facility] [place] [facility] [address] [id number] [place] [address] Jun, [facility] [place] [facility] [address] [id number] [place] [address] Jun, [facility] [place] [facility] [address] [id number] [place] [address] Jun, [facility] [place] [facility] [address] [id number] [place] [address] Jun, [facility] [place] [facility] [address] [id number] [place] [address] May, [facility] [place] [facility] [address] [id number] [place] [address] May, [facility] [place] [facility] [address] [id number] [place] [address] May, [facility] [place] [facility] [address] [id number] [place] [address] May, [facility] [place] [facility] [address] [id number] [place] [address] May, [facility] [place] [facility] [address] [id number] [place] [address] May, [facility] [place] [facility] [address] [id number] [address] May, [facility] [place] [facility] [address] [id number] [place] [address] May, [facility] [place] [facility] [address] [id number] [place] [address] May, [facility] [place] [facility] [address] [facility] [id number] [place] [address] May, [facility] [place] [facility] [address] [id number] [place] [address] May, 2014 [facility] [address] [id number] [place] [address] May, [facility] [place] [facility] [address] [id number] [place] [address] May, [facility] [address] [id number] [place] [address] Apr, [facility] [place] [facility] [address] [id number] [place] [address] Apr, [facility] [place] [facility] [address] [id number] [place] [address] Apr, [facility] [place] [facility] [address] [id number] [place] [address] Apr, [facility] [place] [facility] [address] [id number] [place] [address] Apr, [facility] [address] [id number] [place] [address] Apr, [facility] [place] [facility] [address] [id number] [place] [address] Apr, [facility] [address] [id number] [place] [address] Mar, [facility] [place] [facility] [address] [id number] [place] [address] 31 Mar, 2014 [facility] [place] [facility] [address] [id number] [place] [address] 18 Mar, 2014 [facility] [place] [facility] [address] [id number] [place] [address] 18 Mar, 2014 [facility] [place] [facility] [address] [id number] [place] [address] Mar, [facility] [place] [facility] [address] [id number] [place] [address] Mar, [facility] [place] [facility] [address] [id number] [place] [address] Feb, [facility] [place] [facility] [address] [id number] [place] [address] Feb, [facility] [place] [facility] [address] [id number] [place] [address] Feb, [facility] [place] [facility] [address] [id number] [place] [address] Feb, [facility] [place] [facility] [address] [id number] [place] [address] Feb, [facility] [place] [facility] [address] [id number] [place] [address] Feb, [facility] [place] [facility] [address] [id number] [place] [address] Jan, [facility] [place] [facility] [address] [id number] [place] [address] Jan, [facility] [place] [facility] [address] [id number] [place] [address] Jan, [facility] [place] [facility] [address] [id number] [place] [address] Jan, [facility] [place] [facility] [address] [id number], [place] [address] Jan, [facility] [place] [facility] [address] [id number] [address] Jan, [facility] [place] [facility] [address] [id number] [place] [address] Jan, [facility] [place] [facility] [address] [id number] [place] [address] Jan, [facility] [place] [facility] [address] [id number] [place] [address] Dec, [facility] [place] [facility] [address] [id number] [place] [address] Dec, [facility] [place] [facility] [address] [id number] [place] [address] Dec, [facility] [place] [facility] [address] [id number] [place] [address] Dec, [facility] [place] [facility] [address] [id number] [place] [address] Dec, [facility] [place] [facility] [address] [id number] [place] [address] Dec, [facility] [place] [facility] [address] [id number] [place] [address] Dec, [facility] [place] [facility] [address] [id number] [place] [address] Nov, [facility] [place] [facility] [address] [id number] [place] [address] Nov, [facility] [place] [facility] [address] [id number] [place] [address] Oct, [facility] [place] [facility] [address] [id number] [place] [address] Oct, [facility] [place] [facility] [address] [id number] [place] [address] Oct, [facility] [place] [facility] [address] [id number] [place] [address] Oct, [facility] [place] [facility] [address] [id number] [address] Sep, [facility] [place] [facility] [address] [id number] [place] [address] Sep, [facility] [place] [facility] [address] [id number] [place] [address] Sep, [facility] [place] [facility] [address] [id number] [place] [address] Sep, [facility] [place] [facility] [address] [id number] [place] [address] Sep, [facility] [place] [facility] [address] [id number] [place] [address] Sep, [facility] [place] [facility] [address] [id number] [place] [address] Sep, [facility] [place] [facility] [address] [id number] [place] [address] Sep, [facility] [place] [facility] [address] [id number] [place] [address] August, [facility] [place] [facility] [address] [id number] [place] [address] August, [facility] [place] [facility] [address] [id number] [place] [address] August, [facility] [place] [facility] [address] [id number] [place] [address] August, [facility] [place] [facility] [address] [id number] [place] [address] Jul, [facility] [place] [facility] [address] [id number] [place] [address] Jul, [facility] [place] [facility] [address] [id number] [place] [address] Jul, [facility] [place] [facility] [address] [id number] [place] [address] 24 Jul, 2013 [facility] [place] [facility] [address] [id number] [place] [address] 17 Jul, 2013 [facility] [place] [facility] [address] [id number] [place] [address] 16 Jul, 2013 [facility] [place] [facility] [address] [id number] [place] [address] 15 Jul, 2013 [facility] [place] [facility] [address] [id number] [place] [address] 15 Jul, 2013 [facility] [place] [facility] [address] [id number] [place] [address] 18 Jun, 2013 [facility] [place] [facility] [address] [id number] [place] [address] 18 Jun, 2013 [facility] [place] [facility] [address] [id number] [place] [address] Jun, [facility] [place] [facility] [address] [id number] [place] [address] Jun, [facility] [place] [facility] [address] [id number] [place] [address] Jun, [facility] [place] [facility] [address] [id number] [place] [address] Jun, [facility] [place] [facility] [address] [id number] [place] [address] Jun, [facility] [place] [facility] [address] [id number] [place] [address] Jun, [facility] [place] [facility] [address] [id number] [place] [address] May, [facility] [place] [facility] [address] [id number] [place] [address] May, [facility] [place] [facility] [address] [id number] [place] [address] Apr, [facility] [place] [facility] [address] [id number] [place] [address] Apr, [facility] [place] [facility] [address] [id number] [place] [address] Mar, [facility] [place] [facility] [address] [id number] [place] [address] Mar, [facility] [place] [facility] [address] [id number] [place] [address] Mar, [facility] [place] [facility] [address] [id number] [place] [address] 18 Mar, 2013 [facility] [address] [id number] [place] [address] 18 Mar, 2013 [facility] [address] [id number] [place] [address] Mar, [facility] [address] [id number] [place] [address] Mar, [facility] [address] [id number] [place] [address] Feb, [facility] [address] [id number] [place] [address] Feb, [facility] [address] [id number] [place] [address] Feb, [facility] [address] [id number] [place] [address] Feb, [facility] [address] [id number] [place] [address] Feb, [facility] [address] [id number] [place] [address] Feb, [facility] [address] [facility] [id number] [place] [address] 26 Dec, 2012 [facility] [place] [facility] [address] [id number] [place] [address] 18 Dec, 2012 [facility] [address] [id number] [place] [address] 13 Dec, 2012 [facility] [place] [facility] [address] [id number] [place] [address] 13 Dec, 2012 [facility] [place] [facility] [address] [id number] [place] [address] 06 Dec, 2012 [facility] [address] [id number] [place] [address] Nov, [facility] [address] [id number] [place] [address] Nov, [facility] [address] [id number] [place] [address] Oct, [facility] [address] [id number] [place] [address] August, [facility] [place] [facility] [address] [id number] [place] [address] August, [facility] [address] [id number] [place] [address] August, [facility] [address] [id number] [place] [address] Jul, [facility] [address] [id number] [place] [address] Jul, [facility] [address] [id number] [place] [address] Jul, [facility] [address] [id number] [place] [address] Jun, [facility] [address] [id number] [place] [address] Jun, [facility] [place] [facility] [address] [id number] [place] [address] Jun, [facility] [place] [facility] [address] [id number], [place] [address] Jun, [facility] [place] [facility] [address] [id number] [place] [address] 18 Jun, 2012 [facility] [place] [facility] [address] [id number] [place] [address] 15 Jun, 2012 [facility] [place] [facility] [address] [id number] [place] [address] Jun, [facility] [place] [facility] [address] [id number] [place] [address] 18 May, 2012 [facility] [address] [id number] [place] [address] May, [facility] [address] [id number] [place] [address] 06 May, 2012 [facility] [address] [id number] [place] [address] 05 May, 2012 [facility] [address] [id number] [place] [address] Apr, [facility] [address] [id number] [place] [address] Apr, [facility] [address] [id number] [place] [address] Apr, [facility] [address] [id number] [place] [address] Mar, [facility] [address] [id number] [place] [address] Mar, [facility] [address] [id number] [place] [address] Mar, [facility] [address] [facility] [id number] [place] [address] Mar, [facility] [address] [id number] [place] [address] Mar, [facility] [place] [facility] [address] [id number] [place] [address] Mar, [facility] [place] [facility] [address] [id number] [place] [address] Mar, [facility] [place] [facility] [address] [id number] [place] [address] Mar, [facility] [address] [id number] [place] [address] Feb, [facility] [place] [facility] [address] [id number] [place] [address] Feb, [facility] [place] [facility] [address] [id number] [place] [address] Feb, [facility] [place] [facility] [address] [id number] [place] [address] Jan, [facility] [place] [facility] [address] [id number] [place] [address] Jan, [facility] [place] [facility] [address] [id number] [place] [address] Jan, [facility] [place] [facility] [address] [id number] [place] [address] Jan, [facility] [place] [facility] [address] [id number] [place] [address] Jan, [facility] [place] [facility] [address] [id number] [place] [address] Jan, [facility] [place] [facility] [address] [id number] [place] [address] Jan, [facility] [place] [facility] [address] [id number] [place] [address] Dec, [facility] [place] [facility] [address] [id number] [place] [address] 24 Dec, 2011 [facility] [place] [facility] [address] [id number] [place] [address] Dec, [facility] [place] [facility] [address] [id number] [place] [address] 30 Nov, 2011 [facility] [place] [facility] [address] [id number] [place] [address] Nov, [facility] [place] [facility] [address] [id number] [place] [address] Nov, [facility] [place] [facility] [address] [id number] [place] [address] Nov, [facility] [place] [facility] [address] [id number] [place] [address] Oct, [facility] [place] [facility] [address] [id number] [place] [address] Oct, [facility] [place] [facility] [address] [id number] [place] [address] Oct, [facility] [place] [facility] [address] [id number] [place] [address] Sep, [facility] [place] [facility] [address] [id number] [place] [address] Sep, [facility] [place] [facility] [address] [id number] [place] [address] Sep, [facility] [place] [facility] [address] [id number] [place] [address] Sep, [facility] [place] [facility] [address] [id number] [place] [address] Sep, [facility] [place] [facility] [address] [id number] [place] [address] Sep, [facility] [place] [facility] [address] [id number] [place] [address] August, [facility] [place] [facility] [address] [id number] [place] [address] Jul, [facility] [place] [facility] [address] [id number] [place] [address] Jul, [facility] [place] [facility] [address] [id number] [place] [address] Jul, [facility] [place] [facility] [address] [id number] [place] [address] Jul, [facility] [place] [facility] [address] [id number] [place] [address] Jul, [facility] [place] [facility] [address] [id number] [place] [address] 29 Jun, 2011 [facility] [address] [id number] [place] [address] 27 Jun, 2011 [facility] [place] [facility] [address] [id number] [place] [address] 15 Jun, 2011 [facility] [place] [facility] [address] [id number] [place] [address] 15 Jun, 2011 [facility] [place] [facility] [address] [id number] [place] [address] 09 Jun, 2011 [facility] [place] [facility] [address] [id number] [place] [address] May, [facility] [place] [facility] [address] [id number] [place] [address] May, [facility] [place] [facility] [address] [id number] [place] [address] May, [facility] [place] [facility] [address] [id number] [place] [address] May, [facility] [place] [facility] [address] [facility] [id number] [place] [address] May, [facility] [place] [facility] [address] [facility] [id number] [place] [address] May, [facility] [place] [facility] [address] [facility] [id number] [place] [address] May, [facility] [place] [facility] [address] [id number] [place] [address] Apr, [facility] [place] [facility] [address] [id number] [place] [address] Mar, [facility] [place] [facility] [address] [id number] [place] [address] Mar, [facility] [place] [facility] [address] [id number] [place] [address] Mar, [facility] [place] [facility] [address] [id number] [place] [address] 10 Mar, 2011 [facility] [place] [facility] [address] [id number] [place] [address] Mar, [facility] [place] [facility] [address] [id number] [place] [address] Feb, [facility] [place] [facility] [address] [id number] [place] [address] Feb, [facility] [place] [facility] [address] [id number] [place] [address] Feb, [facility] [place] [facility] [address] [id number] [place] [address] Feb, [facility] [place] [facility] [address] [id number] [place] [address] Feb, [facility] [place] [facility] [address] [id number] [place] [address] Feb, [facility] [place] [facility] [address] [id number] [place] [address] Feb, [facility] [place] [facility] [address] [id number] [place] [address] Jan, [facility] [place] [facility] [address] [id number] [address] Dec, [facility] [place] [facility] [address] [id number] [address] Oct, [facility] [place] [facility] [address] [id number] [place] [address] Jun, [facility] [place] [facility] [address] [id number] [place] [address] Mar, [facility] [place] [facility] [address] [id number] [place] [address] Mar, [facility] [place] [facility] [address] [id number] [place] [address] 16 Mar, 2010 [facility] [address] [id number] [place] [address] 16 Mar, 2010 [facility] [address] [id number] [place] [address] 15 Mar, 2010 [facility] [address] [id number] [place] [address] 10 Mar, 2010 [facility] [address] [id number] [place] [address] 10 Mar, 2010 [facility] [address] [id number] [place] [address] 05 Mar, 2010 [facility] [address] [id number] [place] [address] 03 Mar, 2010 [facility] [address] [id number] [place] [address] 02 Mar, 2010 [facility] [address] [id number] [place] [address] 22 Jan, 2010 [facility] [address] [id number] [place] [address] Jan, [facility] [address] [id number] [place] [address] Jan, [facility] [address] [id number] [place] [address] Nov, [facility] [address] [id number] [place] [address] 13 Oct, 2009 [facility] [address] [id number] [place] [address] 31 Mar, 2009 [facility] [address] [id number] [place] [address] 20 Mar, 2009 [facility] [address] [id number] [place] [address] Mar, [facility] [address] [id number] [address] Mar, [facility] [address] [id number] [address] Dec, [facility] [address] [id number] [address] August, [facility] [address] [id number] [address] August, [facility] [address] [id number] [address] Jul, [facility] [address] [id number], [place] [address] Jan, [facility] [address] [id number] [address] Jan, IMMUNIZATIONS No Known Immunizations SOCIAL HISTORY Never Assessed REASON FOR VISIT EMR-[facility] [place] PLAN OF CARE VITAL SIGNS MEDICATIONS Unknown [...]
--- OUTSIDE RECORDS SUMMARY | 2018-09-22 02:28 | XMS REPORT ---
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 Name Role Phone Migration, Doctor Unavailable Unavailable PROBLEMS Type Condition ICD9-CM Code [id number] Code Onset Dates Condition Status SNOMED Code Problem Osteoporosis M81.0 Active 71610240 Problem Fibromyalgia M79.7 Active 55666840 Problem Unspecified abdominal pain R10.9 Active 260868735 Problem Chronic tension-type headache, not intractable G44.229 Active 841454447 Problem Chronic pain syndrome G89.4 Active 965615907 Problem Hypothyroidism, unspecified hypothyroidism type E03.9 Active 63925506 Problem Pancytopenia D61.818 Active 232078241 Problem Right sided sciatica M54.31 Active 54577330 Problem RUQ abdominal pain R10.11 Active 167436071 Problem Vitamin D deficiency E55.9 Active 96905637 Problem Chronic gastritis without bleeding, unspecified gastritis type K29.50 Active 8289691 Problem Vaginal atrophy N95.2 Active 816507710 Problem Hot flashes N95.1 Active 187984229 Problem Primary insomnia F51.01 Active 9185966 Problem Major depression, recurrent F33.9 Active 93570782 Problem Plantar fasciitis M72.2 Active 103850183 Problem Low back pain M54.5 Active 849421700 Problem Trigger point with back pain M54.9 Active 324434911 Problem Polyneuropathy associated with underlying disease G63 Active 101944742 Problem Drug induced constipation K59.03 Active 943057977945764 Problem Chronic prescription opiate use Z79.891 Active 074129962 Problem Porokeratosis Q82.8 Active 383964055 Problem Leukopenia, unspecified type D72.819 Active 51255825 Problem Allergic rhinitis, unspecified allergic rhinitis type J30.9 Active 78671399 Problem Pure hypercholesterolemia E78.00 Active 797724173 Problem Chronic obstructive pulmonary disease, unspecified COPD type J44.9 Active 36985415 Problem History of hepatitis C Z86.19 Active 97455231551712 Problem Other constipation K59.09 Active 063620749 Problem Allergy to intravenous contrast Z91.041 Active 013581652 Problem 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 Active 182813822 Problem Atrial fibrillation, unspecified type I48.91 Active 77516896 ALLERGIES No Information ENCOUNTERS Encounter Location Date Diagnosis [place] [id number] [place] [id number] Jul, Atrial fibrillation, unspecified type I48.91 [place] [address] [address] Jul, Chronic pain syndrome G89.4 [place] [address] [address] Jun, Chronic pain syndrome G89.4 [facility] [place] [id number] [place] [address] Jun, Acute bronchitis, unspecified organism J20.9 [place] [address] [address] Jun, Hypothyroidism, unspecified hypothyroidism type E03.9 [place] [id number] [place] [address] Jun, Chronic obstructive pulmonary disease, unspecified COPD type J44.9 ; Chronic pain syndrome G89.4 ; Hypothyroidism, unspecified hypothyroidism type E03.9 ; Allergic rhinitis, unspecified allergic rhinitis type J30.9 and Osteoporosis M81.0 [place] [id number] [place] [address] Jun, [facility] [place] [id number] [place] [address] May, Influenza A J10.1 [place] [address] [address] May, Chronic pain syndrome G89.4 [place] [address] [address] Apr, Chronic pain syndrome G89.4 [facility] [place] [id number] [place] [address] Apr, Acute maxillary sinusitis J01.00 and Sore throat J02.9 [place] [address] [address] Apr, Chronic pain syndrome G89.4 [place] [address] [address] Mar, Trochanteric bursitis of both hips M70.61 [place] [address] [address] Mar, Chronic pain syndrome G89.4 [facility] [place] [address] [address] Feb, Sore throat and laryngitis J06.0 ; Acute streptococcal pharyngitis J02.0 ; Dog scratch W54.8XXA and Cellulitis L03.90 [place] [id number] [place] [address] Feb, Acute maxillary sinusitis J01.00 [place] [address] [address] Feb, Hypothyroidism, unspecified hypothyroidism type E03.9 [place] [address] [address] Feb, Chronic pain syndrome G89.4 [place] [address] [address] Jan, Fibromyalgia M79.7 ; Chronic pain syndrome G89.4 ; Low back pain M54.5 ; Hypothyroidism, unspecified hypothyroidism type E03.9 ; Leukopenia, unspecified type D72.819 ; Pure hypercholesterolemia E78.00 ; Right upper quadrant pain R10.11 ; Encounter for immunization Z23 ; Chronic gastritis without bleeding, unspecified gastritis type K29.50 ; Chronic prescription opiate use Z79.891 and BMI 28.0-28.9,adult Z68.28 [place] [address] [address] Jan, Chronic pain syndrome G89.4 [place] [id number] [place] [address] Dec, Chronic pain syndrome G89.4 [place] [id number] [place] [address] Nov, Onychocryptosis L60.0 [place] [id number] [place] [address] Nov, Chronic pain syndrome G89.4 [place] [id number] [place] [address] Nov, Trochanteric bursitis of both hips M70.61 [place] [id number] [place] [address] Oct, Hypothyroidism, unspecified hypothyroidism type E03.9 and Atrial fibrillation, unspecified type I48.91 [place] [id number] [place] [address] Oct, Fibromyalgia M79.7 ; Chronic pain syndrome G89.4 ; Hypothyroidism, unspecified hypothyroidism type E03.9 ; Overweight (BMI 25.0-29.9) E66.3 and Atrial fibrillation, unspecified type I48.91 [place] [id number] [place] [address] Oct, Chronic pain syndrome G89.4 [place] [address] [address] Sep, Chronic pain syndrome G89.4 [place] [id number] [place] [address] August, Somatic dysfunction of lumbar region M99.03 and Somatic dysfunction of pelvis region M99.05 [place] [address] [address] August, Chronic pain syndrome G89.4 [facility] [address] [id number] [place] [address] Jul, Trochanteric bursitis of left hip M70.62 and Trochanteric bursitis, right hip M70.61 [facility] [address] [id number] [place] [address] Jul, [place] [id number] [place] [address] Jul, Chronic pain syndrome G89.4 [place] [id number] [place] [address] Jul, Hypothyroidism, unspecified hypothyroidism type E03.9 [place] [id number] [place] [address] Jul, Hypothyroidism, unspecified hypothyroidism type E03.9 [place] [id number] [place] [address] Jul, Chronic tension-type headache, not intractable G44.229 ; Atrial fibrillation, unspecified type I48.91 ; Chronic pain syndrome G89.4 ; Hypothyroidism, unspecified hypothyroidism type E03.9 ; Pancytopenia D61.818 ; History of hepatitis C Z86.19 ; Vaginal atrophy N95.2 ; RUQ abdominal pain R10.11 ; Chronic prescription opiate use Z79.891 ; Osteoporosis M81.0 and Screening for breast cancer Z12.31 [place] [address] [place] [address] Jun, [place] [id number] [place] [address] May, [place] [id number] [place] [address] May, [place] [id number] [place] [address] May, [place] [id number] [place] [address] Apr, [place] [id number] [place] [address] Apr, Hypothyroidism, unspecified hypothyroidism type E03.9 [place] [id number] [place] [address] Apr, Hypothyroidism, unspecified hypothyroidism type E03.9 and Leukopenia, unspecified type D72.819 [place] [id number] [place] [address] Mar, [place] [id number] [place] [address] Mar, Leukopenia, unspecified type D72.819 [place] [id number] [place] [address] Mar, Hypothyroidism, unspecified hypothyroidism type E03.9 and Low hemoglobin D64.9 [place] [id number] [place] [address] Mar, Hypothyroidism, unspecified hypothyroidism type E03.9 [place] [id number] [place] [address] Mar, Osteoporosis M81.0 ; Low hemoglobin D64.9 and Hypothyroidism, unspecified hypothyroidism type E03.9 [place] [id number] [place] [address] Mar, Hypothyroidism, unspecified hypothyroidism type E03.9 ; Bilirubin in urine R82.2 and Pancytopenia D61.818 [place] [id number] [place] [address] Feb, [facility] [address] [address] [id number] [place] [address] Feb, Cough R05 and Bronchitis J40 [facility] [place] [id number] [place] [address] 14 Feb, 2017 Other viral agents as the cause of diseases classified elsewhere B97.89 and Acute upper respiratory infection, unspecified J06.9 [place] [id number] [place] [address] Feb, Fibromyalgia M79.7 ; Chronic pain syndrome G89.4 ; Hypothyroidism, unspecified hypothyroidism type E03.9 ; Primary insomnia F51.01 ; Osteoporosis M81.0 ; Vision abnormalities H53.9 ; Pancytopenia D61.818 ; BMI 28.0-28.9,adult Z68.28 and Encounter for immunization Z23 [address] [address] Feb, Neuroma D36.10 and Capsulitis of right foot M77.[address] [address] Feb, [address] [address] Feb, Hypothyroidism, unspecified hypothyroidism type E03.9 [place] [address] [address] Jan, [address] [address] Jan, Atrial fibrillation, unspecified type I48.[address] [address] Jan, [address] [address] Jan, Fibromyalgia M79.7 ; Atrial fibrillation, unspecified type I48.91 ; Pain of left hand M79.642 ; Pain in right hand M79.641 ; Chronic prescription opiate use Z79.891 ; Chronic pain syndrome G89.4 ; Elevated fasting glucose R73.01 and Hypothyroidism, unspecified hypothyroidism type E03.9 [place] [id number] [place] [address] Jan, [place] [address] [place] [address] Dec, Trochanteric bursitis of both hips M70.61 [facility] [address] [id number] [place] [address] Dec, [facility] [id number] [place] [address] Dec, [facility] [address] [address] Nov, [facility] [address] [id number] [place] [address] Nov, Unilateral headache R51 [facility] [address] [address] Nov, 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 [address] [id number] [place] [address] Oct, [facility] [id number] [place] [address] Oct, [facility] [id number] [place] [address] Sep, Hypothyroidism, unspecified hypothyroidism type E03.9 [facility] [id number] [place] [address] Sep, Hypothyroidism, unspecified hypothyroidism type E03.9 and Bilirubin in urine R82.2 [facility] [address] [id number] [place] [address] Sep, Trochanteric bursitis of both hips M70.61 [facility] [id number] [place] [address] Sep, Hypothyroidism, unspecified hypothyroidism type E03.9 ; Dysuria R30.0 ; Chronic tension-type headache, not intractable G44.229 and Drug induced constipation K59.03 [facility] [id number] [place] [address] Sep, [facility] [id number] [place] [address] Sep, [facility] [id number] [place] [address] August, [facility] [address] [address] Jul, [facility] [address] [address] Jul, Trochanteric bursitis of right hip M70.61 [place] [id number] [place] [address] Jul, Hypothyroidism, unspecified hypothyroidism type E03.9 [facility] [id number] [place] [address] Jul, Fibromyalgia M79.7 ; Chronic pain syndrome G89.4 ; Hypothyroidism, unspecified hypothyroidism type E03.9 and Other constipation K59.09 [facility] [id number] [place] [address] Jun, Swollen tonsil J35.1 and Strep throat J02.0 [facility] [id number] [place] [address] Jun, [facility] [id number] [place] [address] Jun, Acute maxillary sinusitis J01.00 [facility] [address] [id number] [place] [address] Jun, Hypothyroidism, unspecified hypothyroidism type E03.9 [facility] [id number] [place] [address] Jun, Chronic pain syndrome G89.4 ; Fibromyalgia M79.7 ; Hypothyroidism, unspecified hypothyroidism type E03.9 and Chronic prescription opiate use Z79.891 [place] [id number] [place] [address] 10 May, 2016 [place] [id number] [place] [address] Apr, Hypothyroidism, unspecified hypothyroidism type E03.9 [place] [address] [address] Apr, [place] [address] [address] Apr, Lipid screening Z13.220 and Hypothyroidism, unspecified hypothyroidism type E03.9 [place] [id number] [place] [address] Apr, [place] [address] [address] Mar, Trochanteric bursitis of both hips M70.61 [place] [address] [id number] [place] [address] Mar, [place] [id number] [place] [address] Mar, Plantar fasciitis M72.2 and Porokeratosis Q82.8 [place] [address] [id number] [place] [address] Feb, Lipid screening Z13.220 ; Vitamin D deficiency E55.9 and Hypothyroidism, unspecified hypothyroidism type E03.9 [place] [id number] [place] [address] 16 Feb, 2016 Chronic pain syndrome G89.4 [...] Z13.220 and Encounter for immunization Z23 [facility] [id number] [place] [address] Feb, [facility] [id number] [place] [address] Feb, Ingrown toenail L60.0 [facility] [address] [address] Jan, [facility] [id number] [place] [address] Jan, Trochanteric bursitis of both hips M70.61 [facility] [id number] [place] [address] Jan, [facility] [id number] [place] [address] Jan, [facility] [id number] [place] [address] Jan, [facility] [id number] [place] [address] Jan, Right sided sciatica M54.31 [facility] [id number] [place] [address] Dec, Onychomycosis B35.1 [facility] [id number] [place] [address] Dec, [facility] [id number] [place] [address] Dec, [facility] [id number] [place] [address] Dec, [facility] [id number] [place] [address] Dec, Osteoarthritis of right hip, unspecified osteoarthritis type M16.11 and Bursitis of right hip M70.71 [facility] [id number] [place] [address] Nov, [facility] [id number] [place] [address] Nov, [facility] [id number] [place] [address] Nov, [facility] [address] [address] Nov, Hypothyroidism, unspecified hypothyroidism type E03.9 ; Vitamin D deficiency E55.9 and History of hepatitis C Z86.19 [place] [id number] [place] [address] Nov, Right upper quadrant pain R10.11 ; History of hepatitis C Z86.19 and Low back pain M54.5 [place] [address] [id number] [place] [address] Oct, Trochanteric bursitis, right hip M70.61 [facility] [id number] [place] [address] Oct, [facility] [address] [id number] [place] [address] Oct, [facility] [address] [id number] [place] [address] Oct, Trochanteric bursitis of both hips M70.61 and Right sided sciatica M54.31 [place] [address] [id number] [place] [address] Oct, Trochanteric bursitis of both hips M70.61 [facility] [address] [id number] [place] [address] 14 Oct, 2015 RUQ abdominal pain R10.11 [facility] [id number] [place] [address] 13 Oct, 2015 Sciatic leg pain M54.30 [place] [address] [id number] [place] [address] Oct, RUQ abdominal pain R10.11 [place] [id number] [place] [address] 07 Oct, 2015 RUQ abdominal pain R10.11 ; History of hepatitis C Z86.19 and Trigger point with back pain M54.9 [place] [address] [address] Sep, [place] [address] [address] Sep, Right sided sciatica M54.31 [place] [address] [address] Sep, Hypothyroidism, unspecified hypothyroidism type E03.9 and Vitamin D deficiency E55.9 [place] [address] [address] Sep, Plantar fasciitis M72.2 and Porokeratosis Q82.8 [place] [address] [address] Sep, Hypothyroidism, unspecified hypothyroidism type E03.9 ; Chronic pain syndrome G89.4 ; Polyneuropathy associated with underlying disease G63 and Vitamin D deficiency E55.9 [place] [address] [id number] [place] [address] August, [place] [address] [place] [id number] [place] [address] Jul, Plantar fasciitis M72.2 [place] [address] [address] Jul, Trochanteric bursitis, right hip M70.61 [place] [id number] [place] [address] Jul, Hypothyroidism, unspecified hypothyroidism type E03.9 [place] [id number] [place] [address] 06 Jul, 2015 Hypothyroidism, unspecified hypothyroidism type E03.9 ; Chronic pain syndrome G89.4 and Polyneuropathy associated with underlying disease G63 [facility] [address] [id number] [place] [address] 10 Jun, 2015 Trochanteric bursitis of both hips M70.61 [place] [address] [id number] [place] [address] 08 Jun, 2015 Vitamin D deficiency E55.9 ; Osteoporosis M81.0 ; Low back pain M54.5 and Plantar fasciitis M72.2 [place] [address] [id number] [place] [address] 26 May, 2015 Vitamin D deficiency E55.9 and Hypothyroidism, unspecified hypothyroidism type E03.9 [place] [address] [id number] [place] [address] 23 May, 2015 Acute maxillary sinusitis J01.00 [place] [address] [id number] [place] [address] 18 May, 2015 Osteoporosis M81.0 and Hypothyroidism, unspecified hypothyroidism type E03.9 [place] [address] [id number] [place] [address] 16 May, 2015 Osteoporosis M81.0 [place] [address] [id number] [place] [address] 15 May, 2015 [place] [address] [id number] [place] [address] Apr, [place] [address] [id number] [place] [address] Apr, Trochanteric bursitis of both hips M70.61 [facility] [address] [id number] [place] [address] Apr, Hypothyroidism, unspecified hypothyroidism type E03.9 [place] [id number] [place] [id number] Apr, Chronic pain syndrome G89.4 ; Bilateral low back pain with sciatica, sciatica laterality unspecified M54.40 ; Pain in right hip M25.551 ; Pain in left hip M25.552 ; Chronic prescription opiate use Z79.899 ; Primary insomnia F51.01 and Hypothyroidism, unspecified hypothyroidism type E03.9 [place] [address] [address] Mar, [place] [address] [address] Feb, [place] [address] [address] Feb, Chronic pain syndrome G89.4 and Major depression F32.9 [place] [address] [address] Feb, Fatigue R53.83 [place] [address] [address] Feb, History of fracture Z87.81 [place] [address] [address] Feb, Major depression, recurrent F33.9 and Generalized anxiety disorder F41.1 [place] [id number] [place] [phone] Feb, [place] [address] [address] Jan, Hypothyroidism, unspecified hypothyroidism type E03.9 [place] [address] [address] Jan, Abdominal pain R10.9 and Hypothyroidism, unspecified hypothyroidism type E03.9 [place] [id number] [place] [phone] Jan, Abdominal pain R10.9 [place] [id number] [place] [phone] Jan, Hypothyroidism, unspecified hypothyroidism type E03.9 [place] [id number] [place] [phone] Jan, [place] [id number] [place] [phone] Jan, 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 and Hypothyroidism, unspecified hypothyroidism type E03.9 [place] [id number] [place] [phone] Jan, 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 ; Abdominal pain R10.9 ; Dyspareunia N94.1 ; Encounter for immunization Z23 ; History of fracture Z87.81 ; Fatigue R53.83 ; Throat fullness R68.89 ; Bruises easily R23.8 ; Hot flashes N95.1 ; Depression F32.9 and Vaginal atrophy N95.2 [place] [address] [id number] [place] [address] Jan, Hypothyroidism, unspecified hypothyroidism type E03.9 [place] [id number] [place] [address] Jan, Unspecified abdominal pain R10.9 ; Chronic obstructive pulmonary disease, unspecified COPD type J44.9 ; Allergic rhinitis, unspecified allergic rhinitis type J30.9 ; Chronic pain syndrome G89.4 ; Hypothyroidism, unspecified hypothyroidism type E03.9 ; Chest pain, unspecified chest pain type R07.9 and Plantar fasciitis M72.2 [place] [id number] [place] [address] Jan, Trochanteric bursitis of both hips M70.61 [place] [id number] [place] [address] Dec, [place] [address] [address] Nov, [facility] [id number] [address] Nov, [facility] [id number] [address] Nov, Constipation [address] [facility] [id number] [address] Oct, Chronic pain 338.[address] [facility] [id number] [address] Oct, [facility] [id number] [place] [address] Sep, [facility] [id number] [address] Sep, [facility] [id number] [address] Sep, [facility] [id number] [address] Sep, [facility] [id number] [address] Sep, [facility] [id number], [place] [address] Sep, [facility] [id number], [place] [address] Sep, COPD exacerbation 491.21 ; Chronic pain 338.29 ; Hypothyroidism 244.[address] [facility] [id number], [place] [address] August, [facility] [id number] [address] Jul, [facility] [id number], [place] [address] Jul, [facility] [place] [facility] [address] [id number] [place] [address] Jun, [facility] [place] [facility] [address] [id number] [place] [address] Jun, [facility] [place] [facility] [address] [id number] [place] [address] Jun, [facility] [place] [facility] [address] [id number] [place] [address] Jun, [facility] [place] [facility] [address] [id number] [place] [address] Jun, [facility] [place] [facility] [address] [id number] [place] [address] May, [facility] [place] [facility] [address] [id number] [place] [address] May, [facility] [place] [facility] [address] [id number] [place] [address] May, [facility] [place] [facility] [address] [id number] [place] [address] May, [facility] [place] [facility] [address] [id number] [place] [address] May, [facility] [place] [facility] [address] [id number] [place] [address] May, [facility] [place] [facility] [address] [id number], [place] [address] May, [facility] [place] [facility] [address] [id number] [place] [address] May, [facility] [place] [facility] [address] [id number] [place] [address] May, [facility] [place] [facility] [address] [facility] [id number] [place] [address] May, [facility] [place] [facility] [address] [id number] [place] [address] May, 2014 [facility] [address] [id number] [place] [address] May, [facility] [place] [facility] [address] [id number] [place] [address] May, [facility] [address] [id number] [place] [address] Apr, [facility] [place] [facility] [address] [id number] [place] [address] Apr, [facility] [place] [facility] [address] [id number] [place] [address] Apr, [facility] [place] [facility] [address] [id number] [place] [address] Apr, [facility] [place] [facility] [address] [id number] [place] [address] Apr, [facility] [address] [id number] [place] [address] Apr, [facility] [place] [facility] [address] [id number] [place] [address] Apr, [facility] [address] [id number] [place] [address] Mar, [facility] [place] [facility] [address] [id number] [place] [address] 31 Mar, 2014 [facility] [place] [facility] [address] [id number] [place] [address] 18 Mar, 2014 [facility] [place] [facility] [address] [id number] [place] [address] 18 Mar, 2014 [facility] [place] [facility] [address] [id number] [place] [address] Mar, [facility] [place] [facility] [address] [id number] [place] [address] Mar, [facility] [place] [facility] [address] [id number] [place] [address] Feb, [facility] [place] [facility] [address] [id number] [place] [address] Feb, [facility] [place] [facility] [address] [id number] [place] [address] Feb, [facility] [place] [facility] [address] [id number] [place] [address] Feb, [facility] [place] [facility] [address] [id number] [place] [address] Feb, [facility] [place] [facility] [address] [id number] [place] [address] Feb, [facility] [place] [facility] [address] [id number] [place] [address] Jan, [facility] [place] [facility] [address] [id number] [place] [address] Jan, [facility] [place] [facility] [address] [id number] [place] [address] Jan, [facility] [place] [facility] [address] [id number] [place] [address] Jan, [facility] [place] [facility] [address] [id number], [place] [address] Jan, [facility] [place] [facility] [address] [id number], [place] [address] Jan, [facility] [place] [facility] [address] [id number] [place] [address] Jan, [facility] [place] [facility] [address] [id number] [place] [address] Jan, [facility] [place] [facility] [address] [id number] [place] [address] Dec, [facility] [place] [facility] [address] [id number] [place] [address] Dec, [facility] [place] [facility] [address] [id number] [place] [address] Dec, [facility] [place] [facility] [address] [id number] [place] [address] Dec, [facility] [place] [facility] [address] [id number] [place] [address] Dec, [facility] [place] [facility] [address] [id number] [place] [address] Dec, [facility] [place] [facility] [address] [id number] [place] [address] Dec, [facility] [place] [facility] [address] [id number] [place] [address] Nov, [facility] [place] [facility] [address] [id number] [place] [address] Nov, [facility] [place] [facility] [address] [id number] [place] [address] Oct, [facility] [place] [facility] [address] [id number] [place] [address] Oct, [facility] [place] [facility] [address] [id number] [place] [address] Oct, [facility] [place] [facility] [address] [id number] [place] [address] Oct, [facility] [place] [facility] [address] [id number], [place] [address] Sep, [facility] [place] [facility] [address] [id number] [place] [address] Sep, [facility] [place] [facility] [address] [id number] [place] [address] Sep, [facility] [place] [facility] [address] [id number] [place] [address] Sep, [facility] [place] [facility] [address] [id number] [place] [address] Sep, [facility] [place] [facility] [address] [id number] [place] [address] Sep, [facility] [place] [facility] [address] [id number] [place] [address] Sep, [facility] [place] [facility] [address] [id number] [place] [address] Sep, [facility] [place] [facility] [address] [id number] [place] [address] August, [facility] [place] [facility] [address] [id number] [place] [address] August, [facility] [place] [facility] [address] [id number] [place] [address] August, [facility] [place] [facility] [address] [id number] [place] [address] August, [facility] [place] [facility] [address] [id number] [place] [address] Jul, [facility] [place] [facility] [address] [id number] [place] [address] Jul, [facility] [place] [facility] [address] [id number] [place] [address] Jul, [facility] [place] [facility] [address] [id number] [place] [address] 24 Jul, 2013 [facility] [place] [facility] [address] [id number] [place] [address] 17 Jul, 2013 [facility] [place] [facility] [address] [id number] [place] [address] 16 Jul, 2013 [facility] [place] [facility] [address] [id number] [place] [address] 15 Jul, 2013 [facility] [place] [facility] [address] [id number] [place] [address] 15 Jul, 2013 [facility] [place] [facility] [address] [id number] [place] [address] 18 Jun, 2013 [facility] [place] [facility] [address] [id number] [place] [address] 18 Jun, 2013 [facility] [place] [facility] [address] [id number] [place] [address] Jun, [facility] [place] [facility] [address] [id number] [place] [address] Jun, [facility] [place] [facility] [address] [id number] [place] [address] Jun, [facility] [place] [facility] [address] [id number] [place] [address] Jun, [facility] [place] [facility] [address] [id number] [place] [address] Jun, [facility] [place] [facility] [address] [id number] [place] [address] Jun, [facility] [place] [facility] [address] [id number] [place] [address] May, [facility] [place] [facility] [address] [id number] [place] [address] May, [facility] [place] [facility] [address] [id number] [place] [address] Apr, [facility] [place] [facility] [address] [id number] [place] [address] Apr, [facility] [place] [facility] [address] [id number] [place] [address] Mar, [facility] [place] [facility] [address] [id number] [place] [address] Mar, [facility] [place] [facility] [address] [id number] [place] [address] Mar, [facility] [place] [facility] [address] [id number] [place] [address] 18 Mar, 2013 [facility] [address] [id number] [place] [address] 18 Mar, 2013 [facility] [address] [id number] [place] [address] Mar, [facility] [address] [id number] [place] [address] Mar, [facility] [address] [id number] [place] [address] Feb, [facility] [address] [id number] [place] [address] Feb, [facility] [address] [id number] [place] [address] Feb, [facility] [address] [id number] [place] [address] Feb, [facility] [address] [id number] [place] [address] Feb, [facility] [address] [id number] [place] [address] Feb, [facility] [address] [facility] [id number] [place] [address] 26 Dec, 2012 [facility] [place] [facility] [address] [id number] [place] [address] 18 Dec, 2012 [facility] [address] [id number] [place] [address] 13 Dec, 2012 [facility] [place] [facility] [address] [id number] [place] [address] 13 Dec, 2012 [facility] [place] [facility] [address] [id number] [place] [address] 06 Dec, 2012 [facility] [address] [id number] [place] [address] Nov, [facility] [address] [id number] [place] [address] Nov, [facility] [address] [id number] [place] [address] Oct, [facility] [address] [id number] [place] [address] August, [facility] [place] [facility] [address] [id number] [place] [address] August, [facility] [address] [id number] [place] [address] August, [facility] [address] [id number] [place] [address] Jul, [facility] [address] [id number] [place] [address] Jul, [facility] [address] [id number] [place] [address] Jul, [facility] [address] [id number] [place] [address] Jun, [facility] [address] [id number] [place] [address] Jun, [facility] [place] [facility] [address] [id number] [place] [address] Jun, [facility] [place] [facility] [address] [id number], [place] [address] Jun, [facility] [place] [facility] [address] [id number] [place] [address] 18 Jun, 2012 [facility] [place] [facility] [address] [id number] [place] [address] 15 Jun, 2012 [facility] [place] [facility] [address] [id number] [place] [address] Jun, [facility] [place] [facility] [address] [id number] [place] [address] 18 May, 2012 [facility] [address] [id number] [place] [address] May, [facility] [address] [id number] [place] [address] 06 May, 2012 [facility] [address] [id number] [place] [address] 05 May, 2012 [facility] [address] [id number] [place] [address] Apr, [facility] [address] [id number] [place] [address] Apr, [facility] [address] [id number] [place] [address] Apr, [facility] [address] [id number] [place] [address] Mar, [facility] [address] [id number] [place] [address] Mar, [facility] [address] [id number] [place] [address] Mar, [facility] [address] [facility] [id number] [place] [address] Mar, [facility] [address] [id number] [place] [address] Mar, [facility] [place] [facility] [address] [id number] [place] [address] Mar, [facility] [place] [facility] [address] [id number] [place] [address] Mar, [facility] [place] [facility] [address] [id number] [place] [address] Mar, [facility] [address] [id number] [place] [address] Feb, [facility] [place] [facility] [address] [id number] [place] [address] Feb, [facility] [place] [facility] [address] [id number] [place] [address] Feb, [facility] [place] [facility] [address] [id number] [place] [address] Jan, [facility] [place] [facility] [address] [id number] [place] [address] Jan, [facility] [place] [facility] [address] [id number] [place] [address] Jan, [facility] [place] [facility] [address] [id number] [place] [address] Jan, [facility] [place] [facility] [address] [id number] [place] [address] Jan, [facility] [place] [facility] [address] [id number] [place] [address] Jan, [facility] [place] [facility] [address] [id number] [place] [address] Jan, [facility] [place] [facility] [address] [id number] [place] [address] Dec, [facility] [place] [facility] [address] [id number] [place] [address] 24 Dec, 2011 [facility] [place] [facility] [address] [id number] [place] [address] Dec, [facility] [place] [facility] [address] [id number] [place] [address] 30 Nov, 2011 [facility] [place] [facility] [address] [id number] [place] [address] Nov, [facility] [place] [facility] [address] [id number] [place] [address] Nov, [facility] [place] [facility] [address] [id number] [place] [address] Nov, [facility] [place] [facility] [address] [id number] [place] [address] Oct, [facility] [place] [facility] [address] [id number] [place] [address] Oct, [facility] [place] [facility] [address] [id number] [place] [address] Oct, [facility] [place] [facility] [address] [id number] [place] [address] Sep, [facility] [place] [facility] [address] [id number] [place] [address] Sep, [facility] [place] [facility] [address] [id number] [place] [address] Sep, [facility] [place] [facility] [address] [id number] [place] [address] Sep, [facility] [place] [facility] [address] [id number] [place] [address] Sep, [facility] [place] [facility] [address] [id number] [place] [address] Sep, [facility] [place] [facility] [address] [id number] [place] [address] August, [facility] [place] [facility] [address] [id number] [place] [address] Jul, [facility] [place] [facility] [address] [id number] [place] [address] Jul, [facility] [place] [facility] [address] [id number] [place] [address] Jul, [facility] [place] [facility] [address] [id number] [place] [address] Jul, [facility] [place] [facility] [address] [id number] [place] [address] Jul, [facility] [place] [facility] [address] [id number] [place] [address] 29 Jun, 2011 [facility] [address] [id number] [place] [address] 27 Jun, 2011 [facility] [place] [facility] [address] [id number] [place] [address] 15 Jun, 2011 [facility] [place] [facility] [address] [id number] [place] [address] 15 Jun, 2011 [facility] [place] [facility] [address] [id number] [place] [address] 09 Jun, 2011 [facility] [place] [facility] [address] [id number] [place] [address] May, [facility] [place] [facility] [address] [id number] [place] [address] May, [facility] [place] [facility] [address] [id number] [place] [address] May, [facility] [place] [facility] [address] [id number] [place] [address] May, [facility] [place] [facility] [address] [facility] [address] [facility] [id number] [place] [address] May, [facility] [place] [facility] [address] [facility] [id number] [place] [address] May, [facility] [place] [facility] [address] [facility] [id number] [place] [address] May, [facility] [place] [facility] [address] [id number] [place] [address] Apr, [facility] [place] [facility] [address] [id number] [place] [address] Mar, [facility] [place] [facility] [address] [id number] [place] [address] Mar, [facility] [place] [facility] [address] [id number] [place] [address] Mar, [facility] [place] [facility] [address] [id number] [place] [address] 10 Mar, 2011 [facility] [place] [facility] [address] [id number] [place] [address] Mar, [facility] [place] [facility] [address] [id number] [place] [address] Feb, [facility] [place] [facility] [address] [id number] [place] [address] Feb, [facility] [place] [facility] [address] [id number] [place] [address] Feb, [facility] [place] [facility] [address] [id number] [place] [address] Feb, [facility] [place] [facility] [address] [id number] [place] [address] Feb, [facility] [place] [facility] [address] [id number] [place] [address] Feb, [facility] [place] [facility] [address] [id number] [place] [address] Feb, [facility] [place] [facility] [address] [id number] [place] [address] Jan, [facility] [place] [facility] [address] [id number], [place] [address] Dec, [facility] [place] [facility] [address] [id number], [place] [address] Oct, [facility] [place] [facility] [address] [id number] [place] [address] Jun, [facility] [place] [facility] [address] [id number] [place] [address] Mar, [facility] [place] [facility] [address] [id number] [place] [address] Mar, [facility] [place] [facility] [address] [id number] [place] [address] 16 Mar, 2010 [facility] [address] [id number] [place] [address] 16 Mar, 2010 [facility] [address] [id number] [place] [address] 15 Mar, 2010 [facility] [address] [id number] [place] [address] 10 Mar, 2010 [facility] [address] [id number] [place] [address] 10 Mar, 2010 [facility] [address] [id number] [place] [address] 05 Mar, 2010 [facility] [address] [id number] [place] [address] 03 Mar, 2010 [facility] [address] [id number] [place] [address] 02 Mar, 2010 [facility] [address] [id number] [place] [address] 22 Jan, 2010 [facility] [address] [id number] [place] [address] Jan, [facility] [address] [id number] [place] [address] Jan, [facility] [address] [id number] [place] [address] Nov, [facility] [address] [id number] [place] [address] 13 Oct, 2009 [facility] [address] [id number] [place] [address] 31 Mar, 2009 [facility] [address] [id number] [place] [address] 20 Mar, 2009 [facility] [address] [id number] [place] [address] Mar, [facility] [address] [id number] [address] Mar, [facility] [address] [id number] [address] Dec, [facility] [address] [id number] [address] August, [facility] [address] [id number] [address] August, [facility] [address] [id number] [address] Jul, [facility] [address] [id number], [place] [address] Jan, [facility] [address] [id number] [address] Jan, IMMUNIZATIONS No Known Immunizations SOCIAL HISTORY Never Assessed REASON FOR VISIT EMR-[facility] [place] PLAN OF CARE VITAL SIGNS MEDICATIONS Unknown [...]
--- OUTSIDE RECORDS SUMMARY | 2018-09-22 02:29 | XMS REPORT ---
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 Plant Electrical Engineer Name Role Phone Migration, Doctor Unavailable Unavailable PROBLEMS Type Condition ICD9-CM Code [id number] Code Onset Dates Condition Status SNOMED Code Problem Osteoporosis M81.0 Active 03881478 Problem Fibromyalgia M79.7 Active 94675852 Problem Unspecified abdominal pain R10.9 Active 515810533 Problem Chronic tension-type headache, not intractable G44.229 Active 266618663 Problem Chronic pain syndrome G89.4 Active 862116433 Problem Hypothyroidism, unspecified hypothyroidism type E03.9 Active 14842673 Problem Pancytopenia D61.818 Active 275127710 Problem Right sided sciatica M54.31 Active 82271980 Problem RUQ abdominal pain R10.11 Active 589681094 Problem Vitamin D deficiency E55.9 Active 45302876 Problem Chronic gastritis without bleeding, unspecified gastritis type K29.50 Active 5852145 Problem Vaginal atrophy N95.2 Active 033862619 Problem Hot flashes N95.1 Active 106388598 Problem Primary insomnia F51.01 Active 7676869 Problem Major depression, recurrent F33.9 Active 51886771 Problem Plantar fasciitis M72.2 Active 499802575 Problem Low back pain M54.5 Active 753469341 Problem Trigger point with back pain M54.9 Active 534211495 Problem Polyneuropathy associated with underlying disease G63 Active 060483514 Problem Drug induced constipation K59.03 Active 576436166476725 Problem Chronic prescription opiate use Z79.891 Active 914398949 Problem Porokeratosis Q82.8 Active 695525789 Problem Leukopenia, unspecified type D72.819 Active 01119196 Problem Allergic rhinitis, unspecified allergic rhinitis type J30.9 Active 56747279 Problem Pure hypercholesterolemia E78.00 Active 043105580 Problem Chronic obstructive pulmonary disease, unspecified COPD type J44.9 Active 36730120 Problem History of hepatitis C Z86.19 Active 63375840768991 Problem Other constipation K59.09 Active 221022178 Problem Allergy to intravenous contrast Z91.041 Active 259037038 Problem 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 Active 626256243 Problem Atrial fibrillation, unspecified type I48.91 Active 51965367 ALLERGIES No Information ENCOUNTERS Encounter Location Date Diagnosis [place] [id number] [place] [address] Jul, Atrial fibrillation, unspecified type I48.91 [place] [address] [address] Jul, Chronic pain syndrome G89.4 [place] [address] [address] Jun, Chronic pain syndrome G89.4 [facility] [place] [id number] [place] [address] Jun, Acute bronchitis, unspecified organism J20.9 [place] [address] [address] Jun, Hypothyroidism, unspecified hypothyroidism type E03.9 [place] [id number] [place] [address] Jun, Chronic obstructive pulmonary disease, unspecified COPD type J44.9 ; Chronic pain syndrome G89.4 ; Hypothyroidism, unspecified hypothyroidism type E03.9 ; Allergic rhinitis, unspecified allergic rhinitis type J30.9 and Osteoporosis M81.0 [place] [id number] [place] [address] Jun, [facility] [place] [id number] [place] [address] May, Influenza A J10.1 [place] [address] [address] May, Chronic pain syndrome G89.4 [place] [address] [address] Apr, Chronic pain syndrome G89.4 [facility] [place] [id number] [place] [address] Apr, Acute maxillary sinusitis J01.00 and Sore throat J02.9 [place] [address] [address] Apr, Chronic pain syndrome G89.4 [place] [address] [address] Mar, Trochanteric bursitis of both hips M70.61 [place] [address] [address] Mar, Chronic pain syndrome G89.4 [facility] [place] [address] [address] Feb, Sore throat and laryngitis J06.0 ; Acute streptococcal pharyngitis J02.0 ; Dog scratch W54.8XXA and Cellulitis L03.90 [place] [id number] [place] [address] Feb, Acute maxillary sinusitis J01.00 [place] [address] [address] Feb, Hypothyroidism, unspecified hypothyroidism type E03.9 [place] [address] [address] Feb, Chronic pain syndrome G89.4 [place] [address] [address] Jan, Fibromyalgia M79.7 ; Chronic pain syndrome G89.4 ; Low back pain M54.5 ; Hypothyroidism, unspecified hypothyroidism type E03.9 ; Leukopenia, unspecified type D72.819 ; Pure hypercholesterolemia E78.00 ; Right upper quadrant pain R10.11 ; Encounter for immunization Z23 ; Chronic gastritis without bleeding, unspecified gastritis type K29.50 ; Chronic prescription opiate use Z79.891 and BMI 28.0-28.9,adult Z68.28 [place] [address] [place] [address] Jan, Chronic pain syndrome G89.4 [place] [id number] [place] [address] Dec, Chronic pain syndrome G89.4 [place] [id number] [place] [address] Nov, Onychocryptosis L60.0 [place] [id number] [place] [address] Nov, Chronic pain syndrome G89.4 [place] [id number] [place] [address] Nov, Trochanteric bursitis of both hips M70.61 [place] [id number] [place] [address] Oct, Hypothyroidism, unspecified hypothyroidism type E03.9 and Atrial fibrillation, unspecified type I48.91 [place] [id number] [place] [address] Oct, Fibromyalgia M79.7 ; Chronic pain syndrome G89.4 ; Hypothyroidism, unspecified hypothyroidism type E03.9 ; Overweight (BMI 25.0-29.9) E66.3 and Atrial fibrillation, unspecified type I48.91 [place] [address] [place] [address] Oct, Chronic pain syndrome G89.4 [place] [address], [place] [address] Sep, Chronic pain syndrome G89.4 [place] [id number] [place] [address] August, Somatic dysfunction of lumbar region M99.03 and Somatic dysfunction of pelvis region M99.05 [place] [address], [place] [address] August, Chronic pain syndrome G89.4 [facility] [address] [id number] [place] [address] Jul, Trochanteric bursitis of left hip M70.62 and Trochanteric bursitis, right hip M70.61 [facility] [id number] [place] [address] Jul, [place] [id number] [place] [address] Jul, Chronic pain syndrome G89.4 [place] [id number] [place] [address] Jul, Hypothyroidism, unspecified hypothyroidism type E03.9 [place] [id number] [place] [address] Jul, Hypothyroidism, unspecified hypothyroidism type E03.9 [place] [id number] [place] [address] Jul, Chronic tension-type headache, not intractable G44.229 ; Atrial fibrillation, unspecified type I48.91 ; Chronic pain syndrome G89.4 ; Hypothyroidism, unspecified hypothyroidism type E03.9 ; Pancytopenia D61.818 ; History of hepatitis C Z86.19 ; Vaginal atrophy N95.2 ; RUQ abdominal pain R10.11 ; Chronic prescription opiate use Z79.891 ; Osteoporosis M81.0 and Screening for breast cancer Z12.31 [place] [address] [place] [address] Jun, [place] [id number] [place] [address] May, [place] [id number] [place] [address] May, [place] [address] [id number] [place] [address] May, [place] [address] [id number] [place] [address] Apr, [place] [address] [place] [address] Apr, Hypothyroidism, unspecified hypothyroidism type E03.9 [place] [address] [id number] [place] [address] Apr, Hypothyroidism, unspecified hypothyroidism type E03.9 and Leukopenia, unspecified type D72.819 [place] [id number] [place] [address] Mar, [place] [address] [id number] [place] [address] Mar, Leukopenia, unspecified type D72.819 [place] [address] [id number] [place] [address] Mar, Hypothyroidism, unspecified hypothyroidism type E03.9 and Low hemoglobin D64.9 [place] [id number] [place] [address] Mar, Hypothyroidism, unspecified hypothyroidism type E03.9 [place] [address] [id number] [place] [address] Mar, Osteoporosis M81.0 ; Low hemoglobin D64.9 and Hypothyroidism, unspecified hypothyroidism type E03.9 [place] [address] [id number] [place] [address] Mar, Hypothyroidism, unspecified hypothyroidism type E03.9 ; Bilirubin in urine R82.2 and Pancytopenia D61.818 [place] [address] [place] [address] Feb, [facility] [address] [place] [id number] [place] [address] Feb, Cough R05 and Bronchitis J40 [facility] [place] [id number] [place] [address] 14 Feb, 2017 Other viral agents as the cause of diseases classified elsewhere B97.89 and Acute upper respiratory infection, unspecified J06.9 [place] [id number] [place] [address] Feb, Fibromyalgia M79.7 ; Chronic pain syndrome G89.4 ; Hypothyroidism, unspecified hypothyroidism type E03.9 ; Primary insomnia F51.01 ; Osteoporosis M81.0 ; Vision abnormalities H53.9 ; Pancytopenia D61.818 ; BMI 28.0-28.9,adult Z68.28 and Encounter for immunization Z23 [address] [address] Feb, Neuroma D36.10 and Capsulitis of right foot M77.[address] [address] Feb, [address] [address] Feb, Hypothyroidism, unspecified hypothyroidism type E03.9 [place] [address] [address] Jan, [address] [address] Jan, Atrial fibrillation, unspecified type I48.[address] [address] Jan, [address] [address] Jan, Fibromyalgia M79.7 ; Atrial fibrillation, unspecified type I48.91 ; Pain of left hand M79.642 ; Pain in right hand M79.641 ; Chronic prescription opiate use Z79.891 ; Chronic pain syndrome G89.4 ; Elevated fasting glucose R73.01 and Hypothyroidism, unspecified hypothyroidism type E03.9 [place] [id number] [place] [address] Jan, [place] [address] [place] [address] Dec, Trochanteric bursitis of both hips M70.61 [facility] [address] [id number] [place] [address] Dec, [facility] [address] [id number] [place] [address] Dec, [facility] [address] [address] Nov, [facility] [address] [place] [id number] [place] [address] Nov, Unilateral headache R51 [facility] [address] [address] Nov, [facility] [address] [place] [id number] [place] [address] Oct, Unilateral headache R51 ; 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 and Allergy to intravenous contrast Z91.041 [facility] [address] [id number] [place] [address] Oct, [facility] [address] [id number] [place] [address] Oct, [facility] [address] [id number] [place] [address] Sep, Hypothyroidism, unspecified hypothyroidism type E03.9 [facility] [address] [id number] [place] [address] Sep, Hypothyroidism, unspecified hypothyroidism type E03.9 and Bilirubin in urine R82.2 [facility] [address] [place] [id number] [place] [address] Sep, Trochanteric bursitis of both hips M70.61 [facility] [address] [id number] [place] [address] Sep, Hypothyroidism, unspecified hypothyroidism type E03.9 ; Dysuria R30.0 ; Chronic tension-type headache, not intractable G44.229 and Drug induced constipation K59.03 [facility] [address] [id number] [place] [address] Sep, [facility] [address] [id number] [place] [address] Sep, [facility] [address] [id number] [place] [address] August, [facility] [address] [address] Jul, [facility] [address] [address] Jul, Trochanteric bursitis of right hip M70.61 [place] [address] [id number] [place] [address] Jul, Hypothyroidism, unspecified hypothyroidism type E03.9 [facility] [address] [id number] [place] [address] Jul, Fibromyalgia M79.7 ; Chronic pain syndrome G89.4 ; Hypothyroidism, unspecified hypothyroidism type E03.9 and Other constipation K59.09 [facility] [address] [id number] [place] [address] Jun, Swollen tonsil J35.1 and Strep throat J02.0 [facility] [address] [id number] [place] [address] Jun, [facility] [address] [id number] [place] [address] Jun, Acute maxillary sinusitis J01.00 [facility] [address] [id number] [place] [address] Jun, Hypothyroidism, unspecified hypothyroidism type E03.9 [facility] [address] [id number] [place] [address] Jun, Chronic pain syndrome G89.4 ; Fibromyalgia M79.7 ; Hypothyroidism, unspecified hypothyroidism type E03.9 and Chronic prescription opiate use Z79.891 [place] [address] [id number] [place] [address] 10 May, 2016 [place] [address] [place] [id number] [place] [address] Apr, Hypothyroidism, unspecified hypothyroidism type E03.9 [place] [address] [address] Apr, [place] [address] [address] Apr, Lipid screening Z13.220 and Hypothyroidism, unspecified hypothyroidism type E03.9 [place] [address] [place] [id number] [place] [address] Apr, [place] [address] [address] Mar, Trochanteric bursitis of both hips M70.61 [place] [address] [place] [id number] [place] [address] Mar, [place] [address] [place] [id number] [place] [address] Mar, Plantar fasciitis M72.2 and Porokeratosis Q82.8 [place] [address] [id number] [place] [address] Feb, Lipid screening Z13.220 ; Vitamin D deficiency E55.9 and Hypothyroidism, unspecified hypothyroidism type E03.9 [place] [address] [place] [id number] [place] [address] 16 Feb, 2016 Chronic pain syndrome G89.4 ; Hypothyroidism, unspecified hypothyroidism type E03.9 ; Pancytopenia D61.818 ; Vaginal atrophy N95.2 ; Chronic gastritis without bleeding, unspecified gastritis type K29.50 ; Vitamin D deficiency E55.9 ; Chronic prescription opiate use Z79.891 ; Adverse effect of other opioids, initial encounter T40.2X5A ; Drug induced constipation K59.03 ; Lipid screening Z13.220 and Encounter for immunization Z23 [facility] [id number] [place] [address] Feb, [facility] [address] [id number] [place] [address] Feb, Ingrown toenail L60.0 [facility] [address] [address] Jan, [facility] [address] [id number] [place] [address] Jan, Trochanteric bursitis of both hips M70.61 [facility] [address] [id number] [place] [address] Jan, [facility] [address] [id number] [place] [address] Jan, [facility] [address] [id number] [place] [address] Jan, [facility] [address] [id number] [place] [address] Jan, Right sided sciatica M54.31 [facility] [address] [id number] [place] [address] Dec, Onychomycosis B35.1 [facility] [address] [place] [id number] [place] [address] Dec, [facility] [address] [id number] [place] [address] Dec, [facility] [address] [id number] [place] [address] Dec, [facility] [address] [place] [address] Dec, Osteoarthritis of right hip, unspecified osteoarthritis type M16.11 and Bursitis of right hip M70.71 [facility] [address] [id number] [place] [address] Nov, [facility] [address] [id number] [place] [address] Nov, [facility] [address] [id number] [place] [address] Nov, [facility] [address] [address] Nov, Hypothyroidism, unspecified hypothyroidism type E03.9 ; Vitamin D deficiency E55.9 and History of hepatitis C Z86.19 [place] [address] [id number] [place] [address] Nov, Right upper quadrant pain R10.11 ; History of hepatitis C Z86.19 and Low back pain M54.5 [place] [address] [id number] [place] [address] Oct, Trochanteric bursitis, right hip M70.61 [facility] [address] [id number] [place] [address] Oct, [facility] [address] [id number] [place] [address] Oct, [facility] [address] [id number] [place] [address] Oct, Trochanteric bursitis of both hips M70.61 and Right sided sciatica M54.31 [place] [address] [id number] [place] [address] Oct, Trochanteric bursitis of both hips M70.61 [facility] [address] [place] [id number] [place] [address] 14 Oct, 2015 RUQ abdominal pain R10.11 [facility] [address] [id number] [place] [address] 13 Oct, 2015 Sciatic leg pain M54.30 [place] [address] [id number] [place] [address] Oct, RUQ abdominal pain R10.11 [place] [address] [place] [id number] [place] [address] 07 Oct, 2015 RUQ abdominal pain R10.11 ; History of hepatitis C Z86.19 and Trigger point with back pain M54.9 [place] [address] [address] Sep, [place] [address] [address] Sep, Right sided sciatica M54.31 [place] [address] [address] Sep, Hypothyroidism, unspecified hypothyroidism type E03.9 and Vitamin D deficiency E55.9 [place] [address] [address] Sep, Plantar fasciitis M72.2 and Porokeratosis Q82.8 [place] [address] [address] Sep, Hypothyroidism, unspecified hypothyroidism type E03.9 ; Chronic pain syndrome G89.4 ; Polyneuropathy associated with underlying disease G63 and Vitamin D deficiency E55.9 [place] [address] [place] [id number] [place] [address] August, [place] [address] [place] [id number] [place] [address] Jul, Plantar fasciitis M72.2 [place] [address] [address] Jul, Trochanteric bursitis, right hip M70.61 [place] [address] [place] [id number] [place] [address] Jul, Hypothyroidism, unspecified hypothyroidism type E03.9 [place] [address] [place] [id number] [place] [address] 06 Jul, 2015 Hypothyroidism, unspecified hypothyroidism type E03.9 ; Chronic pain syndrome G89.4 and Polyneuropathy associated with underlying disease G63 [facility] [id number] [place] [address] 10 Jun, 2015 Trochanteric bursitis of both hips M70.61 [place] [address] [place] [id number] [place] [address] 08 Jun, 2015 Vitamin D deficiency E55.9 ; Osteoporosis M81.0 ; Low back pain M54.5 and Plantar fasciitis M72.2 [place] [address] [place] [id number] [place] [address] 26 May, 2015 Vitamin D deficiency E55.9 and Hypothyroidism, unspecified hypothyroidism type E03.9 [place] [address] [place] [id number] [place] [address] 23 May, 2015 Acute maxillary sinusitis J01.00 [place] [address] [id number] [place] [address] 18 May, 2015 Osteoporosis M81.0 and Hypothyroidism, unspecified hypothyroidism type E03.9 [place] [address] [id number] [place] [address] 16 May, 2015 Osteoporosis M81.0 [place] [address] [place] [id number] [place] [address] 15 May, 2015 [place] [address] [address] [id number] [place] [address] Apr, [place] [address] [place] [id number] [place] [address] Apr, Trochanteric bursitis of both hips M70.61 [facility] [address] [id number] [place] [phone] Apr, Hypothyroidism, unspecified hypothyroidism type E03.9 [place] [id number] [place] [phone] Apr, Chronic pain syndrome G89.4 ; Bilateral low back pain with sciatica, sciatica laterality unspecified M54.40 ; Pain in right hip M25.551 ; Pain in left hip M25.552 ; Chronic prescription opiate use Z79.899 ; Primary insomnia F51.01 and Hypothyroidism, unspecified hypothyroidism type E03.9 [place] [address] [id number] Mar, [place] [address] [phone] Feb, [place] [address] [id number] Feb, Chronic pain syndrome G89.4 and Major depression F32.9 [place] [address] [phone] Feb, Fatigue R53.83 [place] [address] [address] Feb, History of fracture Z87.81 [place] [address] [phone] Feb, Major depression, recurrent F33.9 and Generalized anxiety disorder F41.1 [place] [id number] [place] [phone] Feb, [place] [address] [address] Jan, Hypothyroidism, unspecified hypothyroidism type E03.9 [place] [address] [phone] Jan, Abdominal pain R10.9 and Hypothyroidism, unspecified hypothyroidism type E03.9 [place] [id number] [place] [phone] Jan, Abdominal pain R10.9 [place] [id number] [place] [phone] Jan, Hypothyroidism, unspecified hypothyroidism type E03.9 [place] [id number] [place] [address] Jan, [place] [id number] [place] [address] Jan, 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 and Hypothyroidism, unspecified hypothyroidism type E03.9 [place] [id number] [place] [address] Jan, 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 ; Abdominal pain R10.9 ; Dyspareunia N94.1 ; Encounter for immunization Z23 ; History of fracture Z87.81 ; Fatigue R53.83 ; Throat fullness R68.89 ; Bruises easily R23.8 ; Hot flashes N95.1 ; Depression F32.9 and Vaginal atrophy N95.2 [place] [id number] [place] [address] Jan, Hypothyroidism, unspecified hypothyroidism type E03.9 [place] [id number] [place] [address] Jan, Unspecified abdominal pain R10.9 ; Chronic obstructive pulmonary disease, unspecified COPD type J44.9 ; Allergic rhinitis, unspecified allergic rhinitis type J30.9 ; Chronic pain syndrome G89.4 ; Hypothyroidism, unspecified hypothyroidism type E03.9 ; Chest pain, unspecified chest pain type R07.9 and Plantar fasciitis M72.2 [place] [id number] [place] [address] Jan, Trochanteric bursitis of both hips M70.61 [place] [id number] [place] [address] Dec, [place] [address] [address] Nov, [facility] [id number] [address] Nov, [facility] [id number], [place] [address] Nov, Constipation 564.00 [facility] [id number], [place] [address] Oct, Chronic pain 338.29 and Hypothyroidism 244.9 [facility] [id number], [place] [address] Oct, [facility] [id number] [place] [address] Sep, [facility] [id number], [place] [address] Sep, [facility] [id number], [place] [address] Sep, [facility] [address], [place] [address] Sep, [facility] [id number], [place] [address] Sep, [facility] [address], [place] [address] Sep, [facility] [address], [place] [address] Sep, COPD exacerbation 491.21 ; Chronic pain 338.29 ; Hypothyroidism 244.9 and Pancytopenia 284.19 [facility] [id number], [place] [address] August, [facility] [id number] [place] [address] Jul, [facility] [address], [place] [address] Jul, [facility] [place] [facility] [address] [id number] [place] [address] Jun, [facility] [place] [facility] [address] [id number] [place] [address] Jun, [facility] [place] [facility] [address] [id number] [place] [address] Jun, [facility] [place] [facility] [address] [id number] [place] [address] Jun, [facility] [place] [facility] [address] [id number] [place] [address] Jun, [facility] [place] [facility] [address] [id number] [place] [address] May, [facility] [place] [facility] [address] [id number] [place] [address] May, [facility] [place] [facility] [address] [id number] [place] [address] May, [facility] [place] [facility] [address] [id number] [place] [address] May, [facility] [place] [facility] [address] [id number] [place] [address] May, [facility] [place] [facility] [address] [id number] [place] [address] May, [facility] [place] [facility] [address] [id number], [place] [address] May, [facility] [place] [facility] [address] [id number] [place] [address] May, [facility] [place] [facility] [address] [id number] [place] [address] May, [facility] [place] [facility] [address] [facility] [id number] [place] [address] May, [facility] [place] [facility] [address] [id number] [place] [address] May, 2014 [facility] [address] [id number] [place] [address] May, [facility] [place] [facility] [address] [id number] [place] [address] May, [facility] [address] [id number] [place] [address] Apr, [facility] [place] [facility] [address] [id number] [place] [address] Apr, [facility] [place] [facility] [address] [id number] [place] [address] Apr, [facility] [place] [facility] [address] [id number] [place] [address] Apr, [facility] [place] [facility] [address] [id number] [place] [address] Apr, [facility] [address] [id number] [place] [address] Apr, [facility] [place] [facility] [address] [id number] [place] [address] Apr, [facility] [address] [id number] [place] [address] Mar, [facility] [place] [facility] [address] [id number] [place] [address] 31 Mar, 2014 [facility] [place] [facility] [address] [id number] [place] [address] 18 Mar, 2014 [facility] [place] [facility] [address] [id number] [place] [address] 18 Mar, 2014 [facility] [place] [facility] [address] [id number] [place] [address] Mar, [facility] [place] [facility] [address] [id number] [place] [address] Mar, [facility] [place] [facility] [address] [id number] [place] [address] Feb, [facility] [place] [facility] [address] [id number] [place] [address] Feb, [facility] [place] [facility] [address] [id number] [place] [address] Feb, [facility] [place] [facility] [address] [id number] [place] [address] Feb, [facility] [place] [facility] [address] [id number] [place] [address] Feb, [facility] [place] [facility] [address] [id number] [place] [address] Feb, [facility] [place] [facility] [address] [id number] [place] [address] Jan, [facility] [place] [facility] [address] [id number] [place] [address] Jan, [facility] [place] [facility] [address] [id number] [place] [address] Jan, [facility] [place] [facility] [address] [id number] [place] [address] Jan, [facility] [place] [facility] [address] [id number], [place] [address] Jan, [facility] [place] [facility] [address] [id number], [place] [address] Jan, [facility] [place] [facility] [address] [id number] [place] [address] Jan, [facility] [place] [facility] [address] [id number] [place] [address] Jan, [facility] [place] [facility] [address] [id number] [place] [address] Dec, [facility] [place] [facility] [address] [id number] [place] [address] Dec, [facility] [place] [facility] [address] [id number] [place] [address] Dec, [facility] [place] [facility] [address] [id number] [place] [address] Dec, [facility] [place] [facility] [address] [id number] [place] [address] Dec, [facility] [place] [facility] [address] [id number] [place] [address] Dec, [facility] [place] [facility] [address] [id number] [place] [address] Dec, [facility] [place] [facility] [address] [id number] [place] [address] Nov, [facility] [place] [facility] [address] [id number] [place] [address] Nov, [facility] [place] [facility] [address] [id number] [place] [address] Oct, [facility] [place] [facility] [address] [id number] [place] [address] Oct, [facility] [place] [facility] [address] [id number] [place] [address] Oct, [facility] [place] [facility] [address] [id number] [place] [address] Oct, [facility] [place] [facility] [address] [id number], [place] [address] Sep, [facility] [place] [facility] [address] [id number] [place] [address] Sep, [facility] [place] [facility] [address] [id number] [place] [address] Sep, [facility] [place] [facility] [address] [id number] [place] [address] Sep, [facility] [place] [facility] [address] [id number] [place] [address] Sep, [facility] [place] [facility] [address] [id number] [place] [address] Sep, [facility] [place] [facility] [address] [id number] [place] [address] Sep, [facility] [place] [facility] [address] [id number] [place] [address] Sep, [facility] [place] [facility] [address] [id number] [place] [address] August, [facility] [place] [facility] [address] [id number] [place] [address] August, [facility] [place] [facility] [address] [id number] [place] [address] August, [facility] [place] [facility] [address] [id number] [place] [address] August, [facility] [place] [facility] [address] [id number] [place] [address] Jul, [facility] [place] [facility] [address] [id number] [place] [address] Jul, [facility] [place] [facility] [address] [id number] [place] [address] Jul, [facility] [place] [facility] [address] [id number] [place] [address] 24 Jul, 2013 [facility] [place] [facility] [address] [id number] [place] [address] 17 Jul, 2013 [facility] [place] [facility] [address] [id number] [place] [address] 16 Jul, 2013 [facility] [place] [facility] [address] [id number] [place] [address] 15 Jul, 2013 [facility] [place] [facility] [address] [id number] [place] [address] 15 Jul, 2013 [facility] [place] [facility] [address] [id number] [place] [address] 18 Jun, 2013 [facility] [place] [facility] [address] [id number] [place] [address] 18 Jun, 2013 [facility] [place] [facility] [address] [id number] [place] [address] Jun, [facility] [place] [facility] [address] [id number] [place] [address] Jun, [facility] [place] [facility] [address] [id number] [place] [address] Jun, [facility] [place] [facility] [address] [id number] [place] [address] Jun, [facility] [place] [facility] [address] [id number] [place] [address] Jun, [facility] [place] [facility] [address] [id number] [place] [address] Jun, [facility] [place] [facility] [address] [id number] [place] [address] May, [facility] [place] [facility] [address] [id number] [place] [address] May, [facility] [place] [facility] [address] [id number] [place] [address] Apr, [facility] [place] [facility] [address] [id number] [place] [address] Apr, [facility] [place] [facility] [address] [id number] [place] [address] Mar, [facility] [place] [facility] [address] [id number] [place] [address] Mar, [facility] [place] [facility] [address] [id number] [place] [address] Mar, [facility] [place] [facility] [address] [id number] [place] [address] 18 Mar, 2013 [facility] [address] [id number] [place] [address] 18 Mar, 2013 [facility] [address] [id number] [place] [address] Mar, [facility] [address] [id number] [place] [address] Mar, [facility] [address] [id number] [place] [address] Feb, [facility] [address] [id number] [place] [address] Feb, [facility] [address] [id number] [place] [address] Feb, [facility] [address] [id number] [place] [address] Feb, [facility] [address] [id number] [place] [address] Feb, [facility] [address] [id number] [place] [address] Feb, [facility] [address] [facility] [id number] [place] [address] 26 Dec, 2012 [facility] [place] [facility] [address] [id number] [place] [address] 18 Dec, 2012 [facility] [address] [id number] [place] [address] 13 Dec, 2012 [facility] [place] [facility] [address] [id number] [place] [address] 13 Dec, 2012 [facility] [place] [facility] [address] [id number] [place] [address] 06 Dec, 2012 [facility] [address] [id number] [place] [address] Nov, [facility] [address] [id number] [place] [address] Nov, [facility] [address] [id number] [place] [address] Oct, [facility] [address] [id number] [place] [address] August, [facility] [place] [facility] [address] [id number] [place] [address] August, [facility] [address] [id number] [place] [address] August, [facility] [address] [id number] [place] [address] Jul, [facility] [address] [id number] [place] [address] Jul, [facility] [address] [id number] [place] [address] Jul, [facility] [address] [id number] [place] [address] Jun, [facility] [address] [id number] [place] [address] Jun, [facility] [place] [facility] [address] [id number] [place] [address] Jun, [facility] [place] [facility] [address] [id number], [place] [address] Jun, [facility] [place] [facility] [address] [id number] [place] [address] 18 Jun, 2012 [facility] [place] [facility] [address] [id number] [place] [address] 15 Jun, 2012 [facility] [place] [facility] [address] [id number] [place] [address] Jun, [facility] [place] [facility] [address] [id number] [place] [address] 18 May, 2012 [facility] [address] [id number] [place] [address] May, [facility] [address] [id number] [place] [address] 06 May, 2012 [facility] [address] [id number] [place] [address] 05 May, 2012 [facility] [address] [id number] [place] [address] Apr, [facility] [address] [id number] [place] [address] Apr, [facility] [address] [id number] [place] [address] Apr, [facility] [address] [id number] [place] [address] Mar, [facility] [address] [id number] [place] [address] Mar, [facility] [address] [id number] [place] [address] Mar, [facility] [address] [facility] [id number] [place] [address] Mar, [facility] [address] [id number] [place] [address] Mar, [facility] [place] [facility] [address] [id number] [place] [address] Mar, [facility] [place] [facility] [address] [id number] [place] [address] Mar, [facility] [place] [facility] [address] [id number] [place] [address] Mar, [facility] [address] [id number] [place] [address] Feb, [facility] [place] [facility] [address] [id number] [place] [address] Feb, [facility] [place] [facility] [address] [id number] [place] [address] Feb, [facility] [place] [facility] [address] [id number] [place] [address] Jan, [facility] [place] [facility] [address] [id number] [place] [address] Jan, [facility] [place] [facility] [address] [id number] [place] [address] Jan, [facility] [place] [facility] [address] [id number] [place] [address] Jan, [facility] [place] [facility] [address] [id number] [place] [address] Jan, [facility] [place] [facility] [address] [id number] [place] [address] Jan, [facility] [place] [facility] [address] [id number] [place] [address] Jan, [facility] [place] [facility] [address] [id number] [place] [address] Dec, [facility] [place] [facility] [address] [id number] [place] [address] 24 Dec, 2011 [facility] [place] [facility] [address] [id number] [place] [address] Dec, [facility] [place] [facility] [address] [id number] [place] [address] 30 Nov, 2011 [facility] [place] [facility] [address] [id number] [place] [address] Nov, [facility] [place] [facility] [address] [id number] [place] [address] Nov, [facility] [place] [facility] [address] [id number] [place] [address] Nov, [facility] [place] [facility] [address] [id number] [place] [address] Oct, [facility] [place] [facility] [address] [id number] [place] [address] Oct, [facility] [place] [facility] [address] [id number] [place] [address] Oct, [facility] [place] [facility] [address] [id number] [place] [address] Sep, [facility] [place] [facility] [address] [id number] [place] [address] Sep, [facility] [place] [facility] [address] [id number] [place] [address] Sep, [facility] [place] [facility] [address] [id number] [place] [address] Sep, [facility] [place] [facility] [address] [id number] [place] [address] Sep, [facility] [place] [facility] [address] [id number] [place] [address] Sep, [facility] [place] [facility] [address] [id number] [place] [address] August, [facility] [place] [facility] [address] [id number] [place] [address] Jul, [facility] [place] [facility] [address] [id number] [place] [address] Jul, [facility] [place] [facility] [address] [id number] [place] [address] Jul, [facility] [place] [facility] [address] [id number] [place] [address] Jul, [facility] [place] [facility] [address] [id number] [place] [address] Jul, [facility] [place] [facility] [address] [id number] [place] [address] 29 Jun, 2011 [facility] [address] [id number] [place] [address] 27 Jun, 2011 [facility] [place] [facility] [address] [id number] [place] [address] 15 Jun, 2011 [facility] [place] [facility] [address] [id number] [place] [address] 15 Jun, 2011 [facility] [place] [facility] [address] [id number] [place] [address] 09 Jun, 2011 [facility] [place] [facility] [address] [id number] [place] [address] May, [facility] [place] [facility] [address] [id number] [place] [address] May, [facility] [place] [facility] [address] [id number] [place] [address] May, [facility] [place] [facility] [address] [id number] [place] [address] May, [facility] [place] [facility] [address] [facility] [id number] [place] [address] May, [facility] [place] [facility] [address] [facility] [id number] [place] [address] May, [facility] [place] [facility] [address] [facility] [id number] [place] [address] May, [facility] [place] [facility] [address] [id number] [place] [address] Apr, [facility] [place] [facility] [address] [id number] [place] [address] Mar, [facility] [place] [facility] [address] [id number] [place] [address] Mar, [facility] [place] [facility] [address] [id number] [place] [address] Mar, [facility] [place] [facility] [address] [id number] [place] [address] 10 Mar, 2011 [facility] [place] [facility] [address] [id number] [place] [address] Mar, [facility] [place] [facility] [address] [id number] [place] [address] Feb, [facility] [place] [facility] [address] [id number] [place] [address] Feb, [facility] [place] [facility] [address] [id number] [place] [address] Feb, [facility] [place] [facility] [address] [id number] [place] [address] Feb, [facility] [place] [facility] [address] [id number] [place] [address] Feb, [facility] [place] [facility] [address] [id number] [place] [address] Feb, [facility] [place] [facility] [address] [id number] [place] [address] Feb, [facility] [place] [facility] [address] [id number] [place] [address] Jan, [facility] [place] [facility] [address] [id number], [place] [address] Dec, [facility] [place] [facility] [address] [id number], [place] [address] Oct, [facility] [place] [facility] [address] [id number] [place] [address] Jun, [facility] [place] [facility] [address] [id number] [place] [address] Mar, [facility] [place] [facility] [address] [id number] [place] [address] Mar, [facility] [place] [facility] [address] [id number] [place] [address] 16 Mar, 2010 [facility] [address] [id number] [place] [address] 16 Mar, 2010 [facility] [address] [id number] [place] [address] 15 Mar, 2010 [facility] [address] [id number] [place] [address] 10 Mar, 2010 [facility] [address] [id number] [place] [address] 10 Mar, 2010 [facility] [address] [id number] [place] [address] 05 Mar, 2010 [facility] [address] [id number] [place] [address] 03 Mar, 2010 [facility] [address] [id number] [place] [address] 02 Mar, 2010 [facility] [address] [id number] [place] [address] 22 Jan, 2010 [facility] [address] [id number] [place] [address] Jan, [facility] [address] [id number] [place] [address] Jan, [facility] [address] [id number] [place] [address] Nov, [facility] [address] [id number] [place] [address] 13 Oct, 2009 [facility] [address] [id number] [place] [address] 31 Mar, 2009 [facility] [address] [id number] [place] [address] 20 Mar, 2009 [facility] [address] [id number] [place] [address] Mar, [facility] [address] [id number] [address] Mar, [facility] [address] [id number], [place] [address] Dec, [facility] [address] [id number], [place] [address] August, [facility] [address] [id number], [place] [address] August, [facility] [address] [id number], [place] [address] Jul, [facility] [address] [id number], [place] [address] Jan, [facility] [address] [id number], [place] [address] Jan, IMMUNIZATIONS No Known Immunizations SOCIAL HISTORY Never Assessed REASON FOR VISIT EMR-[facility] [place] PLAN OF CARE VITAL SIGNS MEDICATIONS Unknown [...]
--- OUTSIDE RECORDS SUMMARY | 2018-09-22 02:30 | XMS REPORT ---
Author Author Migration, Doctor Organization [facility] Address Unknown Phone Unavailable Care Team Providers Care Supervisor Instrument Mechanics Name Role Phone Migration, Doctor Unavailable Unavailable PROBLEMS Type Condition ICD9-CM Code OZA26-FX Code Onset Dates Condition Status SNOMED Code Problem Osteoporosis M81.0 Active 93936686 Problem Fibromyalgia M79.7 Active 13319326 Problem Unspecified abdominal pain R10.9 Active 153828454 Problem Chronic tension-type headache, not intractable G44.229 Active 643045779 Problem Chronic pain syndrome G89.4 Active 301724030 Problem Hypothyroidism, unspecified hypothyroidism type E03.9 Active 66556500 Problem Pancytopenia D61.818 Active 273566374 Problem Right sided sciatica M54.31 Active 23718764 Problem RUQ abdominal pain R10.11 Active 059591938 Problem Vitamin D deficiency E55.9 Active 93243309 Problem Chronic gastritis without bleeding, unspecified gastritis type K29.50 Active 6725250 Problem Vaginal atrophy N95.2 Active 154794933 Problem Hot flashes N95.1 Active 849518157 Problem Primary insomnia F51.01 Active 7277333 Problem Major depression, recurrent F33.9 Active 11000209 Problem Plantar fasciitis M72.2 Active 149046023 Problem Low back pain M54.5 Active 277904914 Problem Trigger point with back pain M54.9 Active 449944779 Problem Polyneuropathy associated with underlying disease G63 Active 987768229 Problem Drug induced constipation K59.03 Active 501270372025118 Problem Chronic prescription opiate use Z79.891 Active 737828808 Problem Porokeratosis Q82.8 Active 762496788 Problem Leukopenia, unspecified type D72.819 Active 83717660 Problem Allergic rhinitis, unspecified allergic rhinitis type J30.9 Active 86521586 Problem Pure hypercholesterolemia E78.00 Active 338705769 Problem Chronic obstructive pulmonary disease, unspecified COPD type J44.9 Active 12738693 Problem History of hepatitis C Z86.19 Active 65680988278032 Problem Other constipation K59.09 Active 623497703 Problem Allergy to intravenous contrast Z91.041 Active 185935169 Problem 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 Active 327294733 Problem Atrial fibrillation, unspecified type I48.91 Active 47142309 ALLERGIES No Information ENCOUNTERS Encounter Location Date Diagnosis [facility] [id number] [place] [address] Jul, [place] [address] [address] Jul, Chronic pain syndrome G89.4 [place] [address] [address] Jun, Chronic pain syndrome G89.4 [facility] [address] [address] Jun, Acute bronchitis, unspecified organism J20.9 [place] [address] [address] Jun, Hypothyroidism, unspecified hypothyroidism type E03.9 [place] [address] [address] Jun, Chronic obstructive pulmonary disease, unspecified COPD type J44.9 ; Chronic pain syndrome G89.4 ; Hypothyroidism, unspecified hypothyroidism type E03.9 ; Allergic rhinitis, unspecified allergic rhinitis type J30.9 and Osteoporosis M81.0 [place] [address] [address] Jun, [facility] [id number] [place] [address] May, Influenza A J10.1 [place] [address] [address] May, Chronic pain syndrome G89.4 [facility] [address] [address] Apr, Chronic pain syndrome G89.4 [facility] [address] [address] Apr, Acute maxillary sinusitis J01.00 and Sore throat J02.9 [place] [address] [address] Apr, Chronic pain syndrome G89.4 [place] [address] [address] Mar, Trochanteric bursitis of both hips M70.61 [place] [address] [address] Mar, Chronic pain syndrome G89.4 [facility] [address] [address] Feb, Sore throat and laryngitis J06.0 ; Acute streptococcal pharyngitis J02.0 ; Dog scratch W54.8XXA and Cellulitis L03.90 [place] [address] [address] Feb, Acute maxillary sinusitis J01.00 [place] [address] [address] Feb, Hypothyroidism, unspecified hypothyroidism type E03.9 [place] [address] [address] Feb, Chronic pain syndrome G89.4 [place] [address] [address] Jan, Fibromyalgia M79.7 ; Chronic pain syndrome G89.4 ; Low back pain M54.5 ; Hypothyroidism, unspecified hypothyroidism type E03.9 ; Leukopenia, unspecified type D72.819 ; Pure hypercholesterolemia E78.00 ; Right upper quadrant pain R10.11 ; Encounter for immunization Z23 ; Chronic gastritis without bleeding, unspecified gastritis type K29.50 ; Chronic prescription opiate use Z79.891 and BMI 28.0-28.9,adult Z68.28 [place] [address] [place] [address] Jan, Chronic pain syndrome G89.4 [place] [id number] [place] [address] Dec, Chronic pain syndrome G89.4 [place] [id number] [place] [address] Nov, Onychocryptosis L60.0 [place] [id number] [place] [address] Nov, Chronic pain syndrome G89.4 [place] [id number] [place] [address] Nov, Trochanteric bursitis of both hips M70.61 [place] [id number] [place] [address] Oct, Hypothyroidism, unspecified hypothyroidism type E03.9 and Atrial fibrillation, unspecified type I48.91 [place] [id number] [place] [address] Oct, Fibromyalgia M79.7 ; Chronic pain syndrome G89.4 ; Hypothyroidism, unspecified hypothyroidism type E03.9 ; Overweight (BMI 25.0-29.9) E66.3 and Atrial fibrillation, unspecified type I48.91 [place] [id number] [place] [address] Oct, Chronic pain syndrome G89.4 [place] [id number] [place] [address] Sep, Chronic pain syndrome G89.4 [place] [id number] [place] [address] August, Somatic dysfunction of lumbar region M99.03 and Somatic dysfunction of pelvis region M99.05 [place] [id number] [place] [address] August, Chronic pain syndrome G89.4 [place] [id number] [place] [address] Jul, Trochanteric bursitis of left hip M70.62 and Trochanteric bursitis, right hip M70.61 [place] [id number] [place] [address] Jul, [place] [id number] [place] [address] Jul, Chronic pain syndrome G89.4 [place] [id number] [place] [address] Jul, Hypothyroidism, unspecified hypothyroidism type E03.9 [place] [id number] [place] [address] Jul, Hypothyroidism, unspecified hypothyroidism type E03.9 [place] [id number] [place] [address] Jul, Chronic tension-type headache, not intractable G44.229 ; Atrial fibrillation, unspecified type I48.91 ; Chronic pain syndrome G89.4 ; Hypothyroidism, unspecified hypothyroidism type E03.9 ; Pancytopenia D61.818 ; History of hepatitis C Z86.19 ; Vaginal atrophy N95.2 ; RUQ abdominal pain R10.11 ; Chronic prescription opiate use Z79.891 ; Osteoporosis M81.0 and Screening for breast cancer Z12.31 [place] [id number] [place] [address] Jun, [place] [id number] [place] [address] May, [place] [id number] [place] [address] May, [place] [id number] [place] [address] May, [place] [id number] [place] [address] Apr, [place] [address] [place] [address] Apr, Hypothyroidism, unspecified hypothyroidism type E03.9 [place] [id number] [place] [address] Apr, Hypothyroidism, unspecified hypothyroidism type E03.9 and Leukopenia, unspecified type D72.819 [place] [id number] [place] [address] Mar, [place] [id number] [place] [address] Mar, Leukopenia, unspecified type D72.819 [place] [id number] [place] [address] Mar, Hypothyroidism, unspecified hypothyroidism type E03.9 and Low hemoglobin D64.9 [place] [id number] [place] [address] Mar, Hypothyroidism, unspecified hypothyroidism type E03.9 [place] [id number] [place] [address] Mar, Osteoporosis M81.0 ; Low hemoglobin D64.9 and Hypothyroidism, unspecified hypothyroidism type E03.9 [place] [id number] [place] [address] Mar, Hypothyroidism, unspecified hypothyroidism type E03.9 ; Bilirubin in urine R82.2 and Pancytopenia D61.818 [place] [address] [place] [address] Feb, [facility] [id number] [place] [address] 18 Feb, 2017 Cough R05 and Bronchitis J40 [facility] [place] [address] [place] [address] 14 Feb, 2017 Other viral agents as the cause of diseases classified elsewhere B97.89 and Acute upper respiratory infection, unspecified J06.9 [place] [id number] [place] [address] Feb, Fibromyalgia M79.7 ; Chronic pain syndrome G89.4 ; Hypothyroidism, unspecified hypothyroidism type E03.9 ; Primary insomnia F51.01 ; Osteoporosis M81.0 ; Vision abnormalities H53.9 ; Pancytopenia D61.818 ; BMI 28.0-28.9,adult Z68.28 and Encounter for immunization Z23 [place] [address] [address] Feb, Neuroma D36.10 and Capsulitis of right foot M77.[address] [address] Feb, [place] [address] [address] Feb, Hypothyroidism, unspecified hypothyroidism type E03.9 [place] [address] [address] Jan, [place] [address] [address] Jan, Atrial fibrillation, unspecified type I48.[address] [address] Jan, [place] [address] [address] Jan, Fibromyalgia M79.7 ; Atrial fibrillation, unspecified type I48.91 ; Pain of left hand M79.642 ; Pain in right hand M79.641 ; Chronic prescription opiate use Z79.891 ; Chronic pain syndrome G89.4 ; Elevated fasting glucose R73.01 and Hypothyroidism, unspecified hypothyroidism type E03.9 [place] [address] [address] Jan, [place] [address] [address] Dec, Trochanteric bursitis of both hips M70.61 [facility] [id number] [place] [address] Dec, [facility] [id number] [place] [address] Dec, [facility] [id number] [place] [address] Nov, [facility] [id number] [place] [address] Nov, Unilateral headache R51 [facility] [address] [address] Nov, [facility] [id number] [place] [address] Oct, Unilateral headache R51 ; 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9 and Bilirubin in urine R82.2 [facility] [id number] [place] [address] Sep, Trochanteric bursitis of both hips M70.61 [facility] [id number] [place] [address] Sep, Hypothyroidism, unspecified hypothyroidism type E03.9 ; Dysuria R30.0 ; Chronic tension-type headache, not intractable G44.229 and Drug induced constipation K59.03 [facility] [id number] [place] [address] Sep, [facility] [id number] [place] [address] Sep, [facility] [id number] [place] [address] August, [facility] [id number] [place] [address] Jul, [facility] [id number] [place] [address] Jul, Trochanteric bursitis of right hip M70.61 [place] [id number] [place] [address] Jul, Hypothyroidism, unspecified hypothyroidism type E03.9 [place] [id number] [place] [address] Jul, Fibromyalgia M79.7 ; Chronic pain syndrome G89.4 ; Hypothyroidism, unspecified hypothyroidism type E03.9 and Other constipation K59.09 [facility] [address] [place] [address] Jun, Swollen tonsil J35.1 and Strep throat J02.0 [facility] [id number] [place] [address] Jun, [facility] [id number] [place] [address] Jun, Acute maxillary sinusitis J01.00 [facility] [id number] [place] [address] Jun, Hypothyroidism, unspecified hypothyroidism type E03.9 [facility] [id number] [place] [address] Jun, Chronic pain syndrome G89.4 ; Fibromyalgia M79.7 ; Hypothyroidism, unspecified hypothyroidism type E03.9 and Chronic prescription opiate use Z79.891 [facility] [id number] [place] [address] 10 May, 2016 [facility] [id number] [place] [address] Apr, Hypothyroidism, unspecified hypothyroidism type E03.9 [place] [id number] [place] [address] Apr, [place] [id number] [place] [address] Apr, Lipid screening Z13.220 and Hypothyroidism, unspecified hypothyroidism type E03.9 [place] [id number] [place] [address] Apr, [place] [address] [address] Mar, Trochanteric bursitis of both hips M70.61 [place] [id number] [place] [address] Mar, [place] [address] [address] Mar, Plantar fasciitis M72.2 and Porokeratosis Q82.8 [place] [id number] [place] [address] Feb, Lipid screening Z13.220 ; Vitamin D deficiency E55.9 and Hypothyroidism, unspecified hypothyroidism type E03.9 [place] [address] [place] [address] 16 Feb, 2016 Chronic pain syndrome G89.4 [...] Z13.220 and Encounter for immunization Z23 [facility] [id number] [place] [address] Feb, [facility] [id number] [place] [address] Feb, Ingrown toenail L60.0 [facility] [address] [address] Jan, [facility] [id number] [place] [address] Jan, Trochanteric bursitis of both hips M70.61 [facility] [id number] [place] [address] Jan, [facility] [id number] [place] [address] Jan, [facility] [id number] [place] [address] Jan, [facility] [id number] [place] [address] Jan, Right sided sciatica M54.31 [facility] [id number] [place] [address] 23 Dec, 2015 Onychomycosis B35.1 [facility] [id number] [place] [address] Dec, [facility] [id number] [place] [address] Dec, [facility] [address] [address] 09 Dec, 2015 [facility] [id number] [place] [address] Dec, Osteoarthritis of right hip, unspecified osteoarthritis type M16.11 and Bursitis of right hip M70.71 [facility] [id number] [address] Nov, [facility] [id number] [place] [address] Nov, [facility] [id number] [place] [address] Nov, [facility] [id number] [place] [address] Nov, Hypothyroidism, unspecified hypothyroidism type E03.9 ; Vitamin D deficiency E55.9 and History of hepatitis C Z86.19 [facility] [id number] [place] [address] Nov, Right upper quadrant pain R10.11 ; History of hepatitis C Z86.19 and Low back pain M54.5 [facility] [id number] [place] [address] Oct, Trochanteric bursitis, right hip M70.61 [facility] [id number] [place] [address] Oct, [facility] [id number] [place] [address] Oct, [facility] [id number] [place] [address] Oct, Trochanteric bursitis of both hips M70.61 and Right sided sciatica M54.31 [facility] [address] [place] [address] Oct, Trochanteric bursitis of both hips M70.61 [facility] [id number] [place] [address] 14 Oct, 2015 RUQ abdominal pain R10.11 [facility] [address] [place] [address] 13 Oct, 2015 Sciatic leg pain M54.30 [facility] [id number] [place] [address] Oct, RUQ abdominal pain R10.11 [place] [address] [address] 07 Oct, 2015 RUQ abdominal pain R10.11 ; History of hepatitis C Z86.19 and Trigger point with back pain M54.9 [place] [address] [address] Sep, [place] [address] [address] Sep, Right sided sciatica M54.31 [place] [address] [address] Sep, Hypothyroidism, unspecified hypothyroidism type E03.9 and Vitamin D deficiency E55.9 [place] [address] [address] Sep, Plantar fasciitis M72.2 and Porokeratosis Q82.8 [place] [address] [address] Sep, Hypothyroidism, unspecified hypothyroidism type E03.9 ; Chronic pain syndrome G89.4 ; Polyneuropathy associated with underlying disease G63 and Vitamin D deficiency E55.9 [place] [id number] [place] [address] August, [place] [address] [address] Jul, Plantar fasciitis M72.2 [place] [address] [address] Jul, Trochanteric bursitis, right hip M70.61 [place] [id number] [place] [address] Jul, Hypothyroidism, unspecified hypothyroidism type E03.9 [place] [address] [place] [address] Jul, Hypothyroidism, unspecified hypothyroidism type E03.9 ; Chronic pain syndrome G89.4 and Polyneuropathy associated with underlying disease G63 [place] [address] [address] 10 Jun, 2015 Trochanteric bursitis of both hips M70.61 [place] [address] [address] 08 Jun, 2015 Vitamin D deficiency E55.9 ; Osteoporosis M81.0 ; Low back pain M54.5 and Plantar fasciitis M72.2 [place] [address] [address] 26 May, 2015 Vitamin D deficiency E55.9 and Hypothyroidism, unspecified hypothyroidism type E03.9 [place] [address] [address] 23 May, 2015 Acute maxillary sinusitis J01.00 [place] [address] [address] 18 May, 2015 Osteoporosis M81.0 and Hypothyroidism, unspecified hypothyroidism type E03.9 [place] [id number] [place] [address] 16 May, 2015 Osteoporosis M81.0 [place] [address] [place] [id number] [place] [address] 15 May, 2015 [place] [address] [address] Apr, [place] [address] [place] [id number] [place] [address] Apr, Trochanteric bursitis of both hips M70.61 [place] [address] [place] [id number] [place] [address] Apr, Hypothyroidism, unspecified hypothyroidism type E03.9 [place] [address] [address] Apr, Chronic pain syndrome G89.4 ; Bilateral low back pain with sciatica, sciatica laterality unspecified M54.40 ; Pain in right hip M25.551 ; Pain in left hip M25.552 ; Chronic prescription opiate use Z79.899 ; Primary insomnia F51.01 and Hypothyroidism, unspecified hypothyroidism type E03.9 [place] [address] [address] Mar, [place] [address] [address] Feb, [place] [address] [address] Feb, Chronic pain syndrome G89.4 and Major depression F32.9 [place] [address] [address] Feb, Fatigue R53.83 [place] [address] [address] Feb, History of fracture Z87.81 [place] [address] [address] Feb, Major depression, recurrent F33.9 and Generalized anxiety disorder F41.1 [place] [address] [address] Feb, [place] [address] [address] Jan, Hypothyroidism, unspecified hypothyroidism type E03.9 [place] [address] [address] Jan, Abdominal pain R10.9 and Hypothyroidism, unspecified hypothyroidism type E03.9 [place] [address] [place] [id number] [place] [address] Jan, Abdominal pain R10.9 [place] [address] [address] Jan, Hypothyroidism, unspecified hypothyroidism type E03.9 [place] [address] [place] [id number] [place] [address] Jan, [place] [address] [address] Jan, 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 and Hypothyroidism, unspecified hypothyroidism type E03.9 [place] [id number] [place] [address] Jan, 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 ; Abdominal pain R10.9 ; Dyspareunia N94.1 ; Encounter for immunization Z23 ; History of fracture Z87.81 ; Fatigue R53.83 ; Throat fullness R68.89 ; Bruises easily R23.8 ; Hot flashes N95.1 ; Depression F32.9 and Vaginal atrophy N95.2 [place] [id number] [place] [address] Jan, Hypothyroidism, unspecified hypothyroidism type E03.9 [place] [address] [address] 14 Jan, 2015 Unspecified abdominal pain R10.9 ; Chronic obstructive pulmonary disease, unspecified COPD type J44.9 ; Allergic rhinitis, unspecified allergic rhinitis type J30.9 ; Chronic pain syndrome G89.4 ; Hypothyroidism, unspecified hypothyroidism type E03.9 ; Chest pain, unspecified chest pain type R07.9 and Plantar fasciitis M72.2 [place] [id number] [place] [address] Jan, Trochanteric bursitis of both hips M70.61 [place] [id number] [place] [address] Dec, [place] [address] [address] Nov, [facility] [id number] [address] Nov, [facility] [id number], [place] [address] Nov, Constipation 564.00 [facility] [id number], [place] [address] Oct, Chronic pain 338.29 and Hypothyroidism 244.9 [facility] [id number], [place] [address] Oct, [facility] [id number] [place] [address] Sep, [facility] [id number], [place] [address] Sep, [facility] [id number] [place] [address] Sep, [facility] [id number], [place] [address] Sep, [facility] [address], [place] [address] Sep, [facility] [address], [place] [address] Sep, [facility] [address], [place] [address] Sep, COPD exacerbation 491.21 ; Chronic pain 338.29 ; Hypothyroidism 244.9 and Pancytopenia 284.19 [facility] [id number], [place] [address] August, [facility] [address], [place] [address] Jul, [facility] [id number] [address] Jul, [facility] [id number] [place] [address] Jun, [facility] [place] [facility] [address] [id number] [place] [address] Jun, [facility] [place] [facility] [address] [id number] [place] [address] Jun, [facility] [place] [facility] [address] [id number] [place] [address] Jun, [facility] [place] [facility] [address] [id number] [place] [address] Jun, [facility] [place] [facility] [address] [id number] [place] [address] May, [facility] [place] [facility] [address] [facility] [id number] [place] [address] May, [facility] [place] [facility] [address] [facility] [id number] [place] [address] May, [facility] [place] [facility] [address] [facility] [id number] [place] [address] May, [facility] [place] [facility] [address] [facility] [id number] [place] [address] May, [facility] [place] [facility] [address] [facility] [id number], [place] [address] May, [facility] [place] [facility] [address] [facility] [id number], [place] [address] May, 2014 [facility] [place] [facility] [address] [facility] [id number] [place] [address] May, [facility] [place] [facility] [address] [facility] [id number] [place] [address] May, [facility] [place] [facility] [address] [facility] [id number], [place] [address] May, 2014 [facility] [place] [facility] [address] [facility] [id number], [place] [address] May, [facility] [place] [facility] [address] [id number] [place] [address] May, [facility] [place] [facility] [address] [id number] [place] [address] May, [facility] [place] [facility] [address] [facility] [id number] [place] [address] Apr, [facility] [place] [facility] [address] [id number] [place] [address] Apr, [facility] [place] [facility] [address] [id number] [place] [address] Apr, [facility] [place] [facility] [address] [facility] [id number] [place] [address] Apr, [facility] [place] [facility] [address] [facility] [id number] [place] [address] Apr, [facility] [place] [facility] [address] [facility] [id number] [place] [address] Apr, [facility] [place] [facility] [address] [facility] [id number] [place] [address] Apr, [facility] [place] [facility] [address] [facility] [id number] [place] [address] Mar, [facility] [place] [facility] [address] [facility] [id number] [place] [address] 31 Mar, 2014 [facility] [place] [facility] [address] [id number] [place] [address] Mar, [facility] [place] [facility] [address] [id number] [place] [address] 18 Mar, 2014 [facility] [place] [facility] [address] [facility] [id number] [place] [address] Mar, [facility] [place] [facility] [address] [facility] [id number] [place] [address] 17 Mar, 2014 [facility] [place] [facility] [address] [id number] [place] [address] Feb, [facility] [place] [facility] [address] [id number] [place] [address] Feb, [facility] [place] [facility] [address] [id number] [place] [address] Feb, [facility] [place] [facility] [address] [id number] [place] [address] Feb, [facility] [place] [facility] [address] [id number] [place] [address] Feb, [facility] [place] [facility] [address] [id number] [place] [address] Feb, [facility] [place] [facility] [address] [id number] [place] [address] Jan, [facility] [place] [facility] [address] [id number] [place] [address] Jan, [facility] [place] [facility] [address] [id number] [place] [address] Jan, [facility] [place] [facility] [address] [id number] [place] [address] Jan, [facility] [place] [facility] [address] [facility] [id number] [place] [address] Jan, [facility] [place] [facility] [address] [id number] [place] [address] Jan, [facility] [place] [facility] [address] [id number] [place] [address] Jan, [facility] [place] [facility] [address] [id number] [place] [address] Jan, [facility] [place] [facility] [address] [id number] [place] [address] Dec, [facility] [place] [facility] [address] [id number] [place] [address] Dec, [facility] [place] [facility] [address] [id number] [place] [address] Dec, [facility] [place] [facility] [address] [id number] [place] [address] Dec, [facility] [place] [facility] [address] [id number] [place] [address] Dec, [facility] [place] [facility] [address] [id number] [place] [address] Dec, [facility] [place] [facility] [address] [id number] [place] [address] Dec, [facility] [place] [facility] [address] [id number] [place] [address] Nov, [facility] [place] [facility] [address] [id number] [place] [address] Nov, [facility] [place] [facility] [address] [id number] [place] [address] Oct, [facility] [place] [facility] [address] [id number] [place] [address] Oct, [facility] [place] [facility] [address] [id number] [place] [address] Oct, [facility] [place] [facility] [address] [id number] [place] [address] Oct, [facility] [place] [facility] [address] [id number], [place] [address] Sep, [facility] [place] [facility] [address] [id number] [place] [address] Sep, [facility] [place] [facility] [address] [id number] [place] [address] Sep, [facility] [place] [facility] [address] [id number] [place] [address] Sep, [facility] [place] [facility] [address] [id number] [place] [address] Sep, [facility] [place] [facility] [address] [id number] [place] [address] Sep, [facility] [place] [facility] [address] [id number] [place] [address] Sep, [facility] [place] [facility] [address] [id number] [place] [address] Sep, [facility] [place] [facility] [address] [id number] [place] [address] August, [facility] [place] [facility] [address] [id number] [place] [address] August, [facility] [place] [facility] [address] [id number] [place] [address] August, [facility] [place] [facility] [address] [id number] [place] [address] August, [facility] [place] [facility] [address] [id number] [place] [address] Jul, [facility] [place] [facility] [address] [id number] [place] [address] 30 Jul, 2013 [facility] [place] [facility] [address] [id number] [place] [address] Jul, [facility] [place] [facility] [address] [id number] [place] [address] 24 Jul, 2013 [facility] [place] [facility] [address] [id number] [place] [address] 17 Jul, 2013 [facility] [place] [facility] [address] [id number] [place] [address] 16 Jul, 2013 [facility] [place] [facility] [address] [id number] [place] [address] 15 Jul, 2013 [facility] [place] [facility] [address] [id number] [place] [address] 15 Jul, 2013 [facility] [place] [facility] [address] [id number] [place] [address] Jun, [facility] [place] [facility] [address] [id number] [place] [address] Jun, [facility] [place] [facility] [address] [id number] [place] [address] Jun, [facility] [place] [facility] [address] [id number] [place] [address] Jun, [facility] [place] [facility] [address] [id number] [place] [address] Jun, [facility] [place] [facility] [address] [id number] [place] [address] Jun, [facility] [place] [facility] [address] [id number] [place] [address] Jun, [facility] [place] [facility] [address] [id number] [place] [address] Jun, [facility] [place] [facility] [address] [id number] [place] [address] May, [facility] [place] [facility] [address] [id number] [place] [address] May, [facility] [place] [facility] [address] [id number] [place] [address] Apr, [facility] [place] [facility] [address] [id number] [place] [address] Apr, [facility] [place] [facility] [address] [id number] [place] [address] Mar, [facility] [place] [facility] [address] [id number] [place] [address] Mar, [facility] [place] [facility] [address] [id number] [place] [address] Mar, [facility] [place] [facility] [address] [id number], [place] [address] 18 Mar, 2013 [facility] [place] [facility] [address] [id number] [place] [address] 18 Mar, 2013 [facility] [place] [facility] [address] [id number] [place] [address] Mar, [facility] [place] [facility] [address] [id number] [place] [address] Mar, [facility] [place] [facility] [address] [id number] [place] [address] Feb, [facility] [place] [facility] [address] [id number] [place] [address] Feb, [facility] [place] [facility] [address] [id number] [place] [address] Feb, [facility] [place] [facility] [address] [id number] [place] [address] Feb, [facility] [place] [facility] [address] [id number] [place] [address] Feb, [facility] [place] [facility] [address] [id number] [place] [address] 04 Feb, 2013 [facility] [place] [facility] [address] [id number] [place] [address] 26 Dec, 2012 [facility] [place] [facility] [address] [id number], [place] [address] 18 Dec, 2012 [facility] [place] [facility] [address] [id number], [place] [address] 13 Dec, 2012 [facility] [place] [facility] [address] [id number] [place] [address] 13 Dec, 2012 [facility] [place] [facility] [address] [id number] [place] [address] 06 Dec, 2012 [facility] [place] [facility] [address] [id number] [place] [address] 30 Nov, 2012 [facility] [place] [facility] [address] [id number] [place] [address] Nov, [facility] [address] [id number] [place] [address] Oct, [facility] [address] [id number] [place] [address] August, [facility] [address] [id number] [place] [address] August, [facility] [address] [id number] [place] [address] August, [facility] [address] [id number] [place] [address] Jul, [facility] [address] [id number] [place] [address] Jul, [facility] [address] [id number] [place] [address] Jul, [facility] [address] [id number] [place] [address] Jun, [facility] [address] [id number] [place] [address] Jun, [facility] [address] [id number] [place] [address] Jun, [facility] [address] [id number] [place] [address] Jun, [facility] [address] [id number] [place] [address] Jun, [facility] [address] [id number] [place] [address] 15 Jun, 2012 [facility] [address] [id number] [place] [address] Jun, [facility] [address] [id number] [place] [address] May, [facility] [address] [id number] [place] [address] May, [facility] [place] [facility] [address] [id number] [place] [address] May, [facility] [place] [facility] [address] [id number] [place] [address] May, [facility] [place] [facility] [address] [id number] [place] [address] Apr, [facility] [place] [facility] [address] [id number] [place] [address] Apr, [facility] [place] [facility] [address] [id number] [place] [address] Apr, [facility] [place] [facility] [address] [id number] [place] [address] Mar, [facility] [place] [facility] [address] [id number] [place] [address] Mar, [facility] [place] [facility] [address] [id number] [place] [address] Mar, [facility] [place] [facility] [address] [id number] [place] [address] Mar, [facility] [place] [facility] [address] [id number] [place] [address] Mar, [facility] [place] [facility] [address] [id number], [place] [address] Mar, [facility] [place] [facility] [address] [id number] [place] [address] Mar, [facility] [place] [facility] [address] [id number] [place] [address] Mar, [facility] [place] [facility] [address] [id number] [place] [address] Feb, [facility] [place] [facility] [address] [id number] [place] [address] Feb, [facility] [place] [facility] [address] [id number] [place] [address] Feb, [facility] [place] [facility] [address] [id number] [place] [address] Jan, [facility] [place] [facility] [address] [id number] [place] [address] Jan, [facility] [place] [facility] [address] [id number] [place] [address] Jan, [facility] [place] [facility] [address] [id number] [place] [address] Jan, [facility] [place] [facility] [address] [id number] [place] [address] Jan, [facility] [place] [facility] [address] [id number] [place] [address] Jan, [facility] [place] [facility] [address] [id number] [place] [address] Jan, [facility] [place] [facility] [address] [id number] [place] [address] Dec, [facility] [place] [facility] [address] [id number] [place] [address] 24 Dec, 2011 [facility] [place] [facility] [address] [id number] [place] [address] 10 Dec, 2011 [facility] [place] [facility] [address] [id number] [place] [address] 30 Nov, 2011 [facility] [place] [facility] [address] [id number] [place] [address] Nov, [facility] [place] [facility] [address] [id number] [place] [address] Nov, [facility] [place] [facility] [address] [id number] [place] [address] Nov, [facility] [place] [facility] [address] [id number] [place] [address] Oct, [facility] [place] [facility] [address] [id number] [place] [address] Oct, [facility] [place] [facility] [address] [id number] [place] [address] Oct, [facility] [place] [facility] [address] [id number] [place] [address] Sep, [facility] [address] [id number] [place] [address] Sep, [facility] [place] [facility] [address] [id number] [place] [address] Sep, [facility] [address] [id number] [place] [address] Sep, [facility] [place] [facility] [address] [id number] [place] [address] Sep, [facility] [place] [facility] [address] [id number] [place] [address] Sep, [facility] [place] [facility] [address] [id number] [place] [address] August, [facility] [place] [facility] [address] [id number] [place] [address] Jul, [facility] [place] [facility] [address] [id number] [place] [address] Jul, [facility] [place] [facility] [address] [id number] [place] [address] Jul, [facility] [place] [facility] [address] [id number] [place] [address] Jul, [facility] [place] [facility] [address] [id number] [place] [address] Jul, [facility] [place] [facility] [address] [id number] [place] [address] 29 Jun, 2011 [facility] [address] [id number] [place] [address] Jun, [facility] [place] [facility] [address] [id number] [place] [address] Jun, [facility] [place] [facility] [address] [facility] [id number] [place] [address] Jun, [facility] [place] [facility] [address] [id number] [place] [address] Jun, [facility] [place] [facility] [address] [id number] [place] [address] May, [facility] [place] [facility] [address] [id number] [place] [address] May, [facility] [address] [facility] [id number] [place] [address] May, [facility] [place] [facility] [address] [id number] [place] [address] May, [facility] [place] [facility] [address] [facility] [id number] [place] [address] May, [facility] [place] [facility] [address] [facility] [id number] [place] [address] May, [facility] [place] [facility] [address] [facility] [id number] [place] [address] May, [facility] [place] [facility] [address] [id number] [place] [address] Apr, [facility] [place] [facility] [address] [id number] [place] [address] Mar, [facility] [place] [facility] [address] [facility] [id number] [place] [address] Mar, [facility] [place] [facility] [address] [facility] [id number] [place] [address] Mar, [facility] [place] [facility] [address] [id number] [place] [address] Mar, [facility] [place] [facility] [address] [id number] [place] [address] Mar, [facility] [place] [facility] [address] [id number] [place] [address] Feb, [facility] [place] [facility] [address] [id number] [place] [address] Feb, [facility] [place] [facility] [address] [id number] [place] [address] Feb, [facility] [place] [facility] [address] [id number] [place] [address] Feb, [facility] [place] [facility] [address] [id number] [place] [address] Feb, [facility] [place] [facility] [address] [id number] [place] [address] Feb, [facility] [place] [facility] [address] [id number] [place] [address] Feb, [facility] [place] [facility] [address] [id number] [place] [address] Jan, [facility] [place] [facility] [address] [id number] [place] [address] Dec, [facility] [place] [facility] [address] [id number] [place] [address] Oct, [facility] [place] [facility] [address] [id number] [place] [address] Jun, [facility] [place] [facility] [address] [id number] [place] [address] Mar, [facility] [place] [facility] [address] [id number] [place] [address] Mar, [facility] [place] [facility] [address] [id number] [place] [address] 16 Mar, 2010 [facility] [place] [facility] [address] [id number] [place] [address] 16 Mar, 2010 [facility] [place] [facility] [address] [id number] [place] [address] 15 Mar, 2010 [facility] [place] [facility] [address] [id number] [place] [address] 10 Mar, 2010 [facility] [place] [facility] [address] [id number] [place] [address] 10 Mar, 2010 [facility] [place] [facility] [address] [id number] [place] [address] 05 Mar, 2010 [facility] [place] [facility] [address] [id number] [place] [address] 03 Mar, 2010 [facility] [place] [facility] [address] [id number] [place] [address] 02 Mar, 2010 [facility] [place] [facility] [address] [id number] [place] [address] Jan, [facility] [place] [facility] [address] [id number] [place] [address] Jan, [facility] [place] [facility] [address] [id number] [place] [address] Jan, [facility] [place] [facility] [address] [id number], [place] [address] Nov, [facility] [place] [facility] [address] [id number] [place] [address] 13 Oct, 2009 [facility] [place] [facility] [address] [id number] [place] [address] 31 Mar, 2009 [facility] [place] [facility] [address] [id number] [place] [address] 20 Mar, 2009 [facility] [place] [facility] [address] [id number] [place] [address] 17 Mar, 2009 [facility] [place] [facility] [address] [id number] [place] [address] Mar, [facility] [address] [id number] [address] Dec, [facility] [address] [id number], [place] [address] August, [facility] [address] [id number], [place] [address] August, [facility] [address] [id number], [place] [address] Jul, [facility] [address] [id number], [place] [address] Jan, [facility] [address] [id number], [place] [address] Jan, IMMUNIZATIONS No Known Immunizations SOCIAL HISTORY Never Assessed REASON FOR VISIT EMR-[facility] [place] PLAN OF CARE VITAL SIGNS MEDICATIONS Unknown [...]
--- OUTSIDE RECORDS SUMMARY | 2018-09-22 02:31 | XMS REPORT ---
Author Author Migration, Doctor Organization [facility] Address Unknown Phone Unavailable Care Team Providers Care Radial Arm Saw Operator Name Role Phone Migration, Doctor Unavailable Unavailable PROBLEMS Type Condition ICD9-CM Code [id number] Code Onset Dates Condition Status SNOMED Code Problem Osteoporosis M81.0 Active 55517963 Problem Fibromyalgia M79.7 Active 65605734 Problem Unspecified abdominal pain R10.9 Active 828655733 Problem Chronic tension-type headache, not intractable G44.229 Active 268445842 Problem Chronic pain syndrome G89.4 Active 789421881 Problem Hypothyroidism, unspecified hypothyroidism type E03.9 Active 42360168 Problem Pancytopenia D61.818 Active 647341682 Problem Right sided sciatica M54.31 Active 60165189 Problem RUQ abdominal pain R10.11 Active 065457038 Problem Vitamin D deficiency E55.9 Active 31472515 Problem Chronic gastritis without bleeding, unspecified gastritis type K29.50 Active 2450849 Problem Vaginal atrophy N95.2 Active 301737579 Problem Hot flashes N95.1 Active 999059124 Problem Primary insomnia F51.01 Active 5964246 Problem Major depression, recurrent F33.9 Active 19306468 Problem Plantar fasciitis M72.2 Active 242019436 Problem Low back pain M54.5 Active 713976178 Problem Trigger point with back pain M54.9 Active 923946114 Problem Polyneuropathy associated with underlying disease G63 Active 429720824 Problem Drug induced constipation K59.03 Active 254536016907712 Problem Chronic prescription opiate use Z79.891 Active 484082718 Problem Porokeratosis Q82.8 Active 698133193 Problem Leukopenia, unspecified type D72.819 Active 97762641 Problem Allergic rhinitis, unspecified allergic rhinitis type J30.9 Active 98639887 Problem Pure hypercholesterolemia E78.00 Active 237029730 Problem Chronic obstructive pulmonary disease, unspecified COPD type J44.9 Active 93418943 Problem History of hepatitis C Z86.19 Active 70024888653370 Problem Other constipation K59.09 Active 083552420 Problem Allergy to intravenous contrast Z91.041 Active 685567245 Problem 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 [address] [address] Jun, Acute bronchitis, unspecified organism J20.9 [place] [address] [address] Jun, Hypothyroidism, unspecified hypothyroidism type E03.9 [place] [address] [address] Jun, Chronic obstructive pulmonary disease, unspecified COPD type J44.9 ; Chronic pain syndrome G89.4 ; Hypothyroidism, unspecified hypothyroidism type E03.9 ; Allergic rhinitis, unspecified allergic rhinitis type J30.9 and Osteoporosis M81.0 [place] [address] [address] Jun, [facility] [id number] [place] [address] May, Influenza A J10.1 [place] [address] [address] May, Chronic pain syndrome G89.4 [facility] [address] [address] Apr, Chronic pain syndrome G89.4 [facility] [address] [address] Apr, Acute maxillary sinusitis J01.00 and Sore throat J02.9 [place] [address] [address] Apr, Chronic pain syndrome G89.4 [place] [address] [address] Mar, Trochanteric bursitis of both hips M70.61 [place] [address] [address] Mar, Chronic pain syndrome G89.4 [facility] [address] [address] Feb, Sore throat and laryngitis J06.0 ; Acute streptococcal pharyngitis J02.0 ; Dog scratch W54.8XXA and Cellulitis L03.90 [place] [address] [address] Feb, Acute maxillary sinusitis J01.00 [place] [address] [address] Feb, Hypothyroidism, unspecified hypothyroidism type E03.9 [place] [address] [address] Feb, Chronic pain syndrome G89.4 [place] [address] [address] Jan, Fibromyalgia M79.7 ; Chronic pain syndrome G89.4 ; Low back pain M54.5 ; Hypothyroidism, unspecified hypothyroidism type E03.9 ; Leukopenia, unspecified type D72.819 ; Pure hypercholesterolemia E78.00 ; Right upper quadrant pain R10.11 ; Encounter for immunization Z23 ; Chronic gastritis without bleeding, unspecified gastritis type K29.50 ; Chronic prescription opiate use Z79.891 and BMI 28.0-28.9,adult Z68.28 [place] [address] [place] [address] Jan, Chronic pain syndrome G89.4 [place] [id number] [place] [address] Dec, Chronic pain syndrome G89.4 [place] [id number] [place] [address] Nov, Onychocryptosis L60.0 [place] [id number] [place] [address] Nov, Chronic pain syndrome G89.4 [place] [id number] [place] [address] Nov, Trochanteric bursitis of both hips M70.61 [place] [id number] [place] [address] Oct, Hypothyroidism, unspecified hypothyroidism type E03.9 and Atrial fibrillation, unspecified type I48.91 [place] [id number] [place] [address] Oct, Fibromyalgia M79.7 ; Chronic pain syndrome G89.4 ; Hypothyroidism, unspecified hypothyroidism type E03.9 ; Overweight (BMI 25.0-29.9) E66.3 and Atrial fibrillation, unspecified type I48.91 [place] [id number] [place] [address] Oct, Chronic pain syndrome G89.4 [place] [id number] [place] [address] Sep, Chronic pain syndrome G89.4 [place] [id number] [place] [address] August, Somatic dysfunction of lumbar region M99.03 and Somatic dysfunction of pelvis region M99.05 [place] [id number] [place] [address] August, Chronic pain syndrome G89.4 [place] [id number] [place] [address] Jul, Trochanteric bursitis of left hip M70.62 and Trochanteric bursitis, right hip M70.61 [place] [id number] [place] [address] Jul, [place] [id number] [place] [address] Jul, Chronic pain syndrome G89.4 [place] [id number] [place] [address] Jul, Hypothyroidism, unspecified hypothyroidism type E03.9 [place] [id number] [place] [address] Jul, Hypothyroidism, unspecified hypothyroidism type E03.9 [place] [id number] [place] [address] Jul, Chronic tension-type headache, not intractable G44.229 ; Atrial fibrillation, unspecified type I48.91 ; Chronic pain syndrome G89.4 ; Hypothyroidism, unspecified hypothyroidism type E03.9 ; Pancytopenia D61.818 ; History of hepatitis C Z86.19 ; Vaginal atrophy N95.2 ; RUQ abdominal pain R10.11 ; Chronic prescription opiate use Z79.891 ; Osteoporosis M81.0 and Screening for breast cancer Z12.31 [place] [id number] [place] [address] Jun, [place] [id number] [place] [address] May, [place] [id number] [place] [address] May, [place] [id number] [place] [address] May, [place] [id number] [place] [address] Apr, [place] [address] [place] [address] Apr, Hypothyroidism, unspecified hypothyroidism type E03.9 [place] [id number] [place] [address] Apr, Hypothyroidism, unspecified hypothyroidism type E03.9 and Leukopenia, unspecified type D72.819 [place] [id number] [place] [address] Mar, [place] [id number] [place] [address] Mar, Leukopenia, unspecified type D72.819 [place] [id number] [place] [address] Mar, Hypothyroidism, unspecified hypothyroidism type E03.9 and Low hemoglobin D64.9 [place] [id number] [place] [address] Mar, Hypothyroidism, unspecified hypothyroidism type E03.9 [place] [id number] [place] [address] Mar, Osteoporosis M81.0 ; Low hemoglobin D64.9 and Hypothyroidism, unspecified hypothyroidism type E03.9 [place] [id number] [place] [address] Mar, Hypothyroidism, unspecified hypothyroidism type E03.9 ; Bilirubin in urine R82.2 and Pancytopenia D61.818 [place] [address] [place] [address] Feb, [facility] [place] [id number] [place] [address] 18 Feb, 2017 Cough R05 and Bronchitis J40 [facility] [place] [address] [place] [address] 14 Feb, 2017 Other viral agents as the cause of diseases classified elsewhere B97.89 and Acute upper respiratory infection, unspecified J06.9 [place] [id number] [place] [address] Feb, Fibromyalgia M79.7 ; Chronic pain syndrome G89.4 ; Hypothyroidism, unspecified hypothyroidism type E03.9 ; Primary insomnia F51.01 ; Osteoporosis M81.0 ; Vision abnormalities H53.9 ; Pancytopenia D61.818 ; BMI 28.0-28.9,adult Z68.28 and Encounter for immunization Z23 [place] [address] [address] Feb, Neuroma D36.10 and Capsulitis of right foot M77.[address] [address] Feb, [place] [address] [address] Feb, Hypothyroidism, unspecified hypothyroidism type E03.9 [place] [address] [address] Jan, [place] [address] [address] Jan, Atrial fibrillation, unspecified type I48.[address] [address] Jan, [place] [address] [address] Jan, Fibromyalgia M79.7 ; Atrial fibrillation, unspecified type I48.91 ; Pain of left hand M79.642 ; Pain in right hand M79.641 ; Chronic prescription opiate use Z79.891 ; Chronic pain syndrome G89.4 ; Elevated fasting glucose R73.01 and Hypothyroidism, unspecified hypothyroidism type E03.9 [place] [address] [address] Jan, [place] [address] [address] Dec, Trochanteric bursitis of both hips M70.61 [facility] [id number] [place] [address] Dec, [facility] [id number] [place] [address] Dec, [facility] [id number] [place] [address] Nov, [facility] [id number] [place] [address] Nov, Unilateral headache R51 [facility] [address] [address] Nov, [facility] [id number] [place] [address] Oct, Unilateral headache R51 ; 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9 and Bilirubin in urine R82.2 [facility] [id number] [place] [address] Sep, Trochanteric bursitis of both hips M70.61 [facility] [id number] [place] [address] Sep, Hypothyroidism, unspecified hypothyroidism type E03.9 ; Dysuria R30.0 ; Chronic tension-type headache, not intractable G44.229 and Drug induced constipation K59.03 [facility] [id number] [place] [address] Sep, [facility] [id number] [place] [address] Sep, [facility] [id number] [place] [address] August, [facility] [id number] [place] [address] Jul, [facility] [id number] [place] [address] Jul, Trochanteric bursitis of right hip M70.61 [place] [id number] [place] [address] Jul, Hypothyroidism, unspecified hypothyroidism type E03.9 [place] [id number] [place] [address] Jul, Fibromyalgia M79.7 ; Chronic pain syndrome G89.4 ; Hypothyroidism, unspecified hypothyroidism type E03.9 and Other constipation K59.09 [facility] [address] [place] [address] Jun, Swollen tonsil J35.1 and Strep throat J02.0 [facility] [id number] [place] [address] Jun, [facility] [id number] [place] [address] Jun, Acute maxillary sinusitis J01.00 [facility] [id number] [place] [address] Jun, Hypothyroidism, unspecified hypothyroidism type E03.9 [facility] [id number] [place] [address] Jun, Chronic pain syndrome G89.4 ; Fibromyalgia M79.7 ; Hypothyroidism, unspecified hypothyroidism type E03.9 and Chronic prescription opiate use Z79.891 [facility] [id number] [place] [address] 10 May, 2016 [facility] [id number] [place] [address] Apr, Hypothyroidism, unspecified hypothyroidism type E03.9 [place] [id number] [place] [address] Apr, [place] [id number] [place] [address] Apr, Lipid screening Z13.220 and Hypothyroidism, unspecified hypothyroidism type E03.9 [place] [id number] [place] [address] Apr, [place] [address] [address] Mar, Trochanteric bursitis of both hips M70.61 [place] [id number] [place] [address] Mar, [place] [address] [address] Mar, Plantar fasciitis M72.2 and Porokeratosis Q82.8 [place] [id number] [place] [address] Feb, Lipid screening Z13.220 ; Vitamin D deficiency E55.9 and Hypothyroidism, unspecified hypothyroidism type E03.9 [place] [address] [place] [address] 16 Feb, 2016 Chronic pain syndrome G89.4 [...] Z13.220 and Encounter for immunization Z23 [facility] [id number] [place] [address] Feb, [facility] [id number] [place] [address] Feb, Ingrown toenail L60.0 [facility] [address] [address] Jan, [facility] [id number] [place] [address] Jan, Trochanteric bursitis of both hips M70.61 [facility] [id number] [place] [address] Jan, [facility] [id number] [place] [address] Jan, [facility] [id number] [place] [address] Jan, [facility] [id number] [place] [address] Jan, Right sided sciatica M54.31 [facility] [id number] [place] [address] 23 Dec, 2015 Onychomycosis B35.1 [facility] [id number] [place] [address] Dec, [facility] [id number] [place] [address] Dec, [facility] [address] [address] 09 Dec, 2015 [facility] [id number] [place] [address] Dec, Osteoarthritis of right hip, unspecified osteoarthritis type M16.11 and Bursitis of right hip M70.71 [facility] [id number] [address] Nov, [facility] [id number] [place] [address] Nov, [facility] [id number] [place] [address] Nov, [facility] [id number] [place] [address] Nov, Hypothyroidism, unspecified hypothyroidism type E03.9 ; Vitamin D deficiency E55.9 and History of hepatitis C Z86.19 [facility] [id number] [place] [address] Nov, Right upper quadrant pain R10.11 ; History of hepatitis C Z86.19 and Low back pain M54.5 [facility] [id number] [place] [address] Oct, Trochanteric bursitis, right hip M70.61 [facility] [id number] [place] [address] Oct, [facility] [id number] [place] [address] Oct, [facility] [id number] [place] [address] Oct, Trochanteric bursitis of both hips M70.61 and Right sided sciatica M54.31 [facility] [address] [place] [address] Oct, Trochanteric bursitis of both hips M70.61 [facility] [id number] [place] [address] 14 Oct, 2015 RUQ abdominal pain R10.11 [facility] [address] [place] [address] 13 Oct, 2015 Sciatic leg pain M54.30 [facility] [id number] [place] [address] Oct, RUQ abdominal pain R10.11 [place] [address] [address] 07 Oct, 2015 RUQ abdominal pain R10.11 ; History of hepatitis C Z86.19 and Trigger point with back pain M54.9 [place] [address] [address] Sep, [place] [address] [address] Sep, Right sided sciatica M54.31 [place] [address] [address] Sep, Hypothyroidism, unspecified hypothyroidism type E03.9 and Vitamin D deficiency E55.9 [place] [address] [address] Sep, Plantar fasciitis M72.2 and Porokeratosis Q82.8 [place] [address] [address] Sep, Hypothyroidism, unspecified hypothyroidism type E03.9 ; Chronic pain syndrome G89.4 ; Polyneuropathy associated with underlying disease G63 and Vitamin D deficiency E55.9 [place] [id number] [place] [address] August, [place] [address] [address] Jul, Plantar fasciitis M72.2 [place] [address] [address] Jul, Trochanteric bursitis, right hip M70.61 [place] [id number] [place] [address] Jul, Hypothyroidism, unspecified hypothyroidism type E03.9 [place] [address] [place] [address] Jul, Hypothyroidism, unspecified hypothyroidism type E03.9 ; Chronic pain syndrome G89.4 and Polyneuropathy associated with underlying disease G63 [place] [address] [address] 10 Jun, 2015 Trochanteric bursitis of both hips M70.61 [place] [address] [address] 08 Jun, 2015 Vitamin D deficiency E55.9 ; Osteoporosis M81.0 ; Low back pain M54.5 and Plantar fasciitis M72.2 [place] [address] [address] 26 May, 2015 Vitamin D deficiency E55.9 and Hypothyroidism, unspecified hypothyroidism type E03.9 [place] [address] [address] 23 May, 2015 Acute maxillary sinusitis J01.00 [place] [address] [address] 18 May, 2015 Osteoporosis M81.0 and Hypothyroidism, unspecified hypothyroidism type E03.9 [place] [id number] [place] [address] 16 May, 2015 Osteoporosis M81.0 [place] [id number] [place] [address] 15 May, 2015 [place] [address] [address] Apr, [place] [id number] [place] [address] Apr, Trochanteric bursitis of both hips M70.61 [place] [id number] [place] [address] Apr, Hypothyroidism, unspecified hypothyroidism type E03.9 [place] [address] [address] Apr, Chronic pain syndrome G89.4 ; Bilateral low back pain with sciatica, sciatica laterality unspecified M54.40 ; Pain in right hip M25.551 ; Pain in left hip M25.552 ; Chronic prescription opiate use Z79.899 ; Primary insomnia F51.01 and Hypothyroidism, unspecified hypothyroidism type E03.9 [place] [address] [address] Mar, [place] [address] [address] Feb, [place] [address] [address] Feb, Chronic pain syndrome G89.4 and Major depression F32.9 [place] [address] [address] Feb, Fatigue R53.83 [place] [address] [address] Feb, History of fracture Z87.81 [place] [address] [address] Feb, Major depression, recurrent F33.9 and Generalized anxiety disorder F41.1 [place] [address] [address] Feb, [place] [address] [address] Jan, Hypothyroidism, unspecified hypothyroidism type E03.9 [place] [address] [address] Jan, Abdominal pain R10.9 and Hypothyroidism, unspecified hypothyroidism type E03.9 [place] [address] [address] [place] [id number] [place] [address] Jan, Abdominal pain R10.9 [place] [address] [address] Jan, Hypothyroidism, unspecified hypothyroidism type E03.9 [place] [address] [address] [place] [id number] [place] [address] Jan, [place] [address] [address] Jan, 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/o 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 Z01.419 and Hypothyroidism, unspecified hypothyroidism type E03.9 [place] [address] [address] [place] [id number] [place] [id number] Jan, 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/o 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 Z01.419 ; Abdominal pain R10.9 ; Dyspareunia N94.1 ; Encounter for immunization Z23 ; History of fracture Z87.81 ; Fatigue R53.83 ; Throat fullness R68.89 ; Bruises easily R23.8 ; Hot flashes N95.1 ; Depression F32.9 and Vaginal atrophy N95.2 [place] [address] [address] [id number] [place] [address] Jan, Hypothyroidism, unspecified hypothyroidism type E03.9 [place] [address] [address] 14 Jan, 2015 Unspecified abdominal pain R10.9 ; Chronic obstructive pulmonary disease, unspecified COPD type J44.9 ; Allergic rhinitis, unspecified allergic rhinitis type J30.9 ; Chronic pain syndrome G89.4 ; Hypothyroidism, unspecified hypothyroidism type E03.9 ; Chest pain, unspecified chest pain type R07.9 and Plantar fasciitis M72.2 [place] [id number] [place] [address] Jan, Trochanteric bursitis of both hips M70.61 [place] [id number] [place] [address] Dec, [place] [address] [address] Nov, [facility] [id number] [address] Nov, [facility] [id number], [place] [address] Nov, Constipation 564.00 [facility] [id number], [place] [address] Oct, Chronic pain 338.29 and Hypothyroidism 244.9 [facility] [id number] [address] Oct, [facility] [id number] [place] [address] Sep, [facility] [address], [place] [address] Sep, [facility] [id number] [place] [address] Sep, [facility] [address], [place] [address] Sep, [facility] [address], [place] [address] Sep, [facility] [address], [place] [address] Sep, [facility] [address], [place] [address] Sep, COPD exacerbation 491.21 ; Chronic pain 338.29 ; Hypothyroidism 244.9 and Pancytopenia 284.19 [facility] [address], [place] [address] August, [facility] [address], [place] [address] Jul, [facility] [id number] [address] Jul, [facility] [id number] [place] [address] Jun, [facility] [place] [facility] [address] [id number] [place] [address] Jun, [facility] [place] [facility] [address] [id number] [place] [address] Jun, [facility] [place] [facility] [address] [id number] [place] [address] Jun, [facility] [place] [facility] [address] [id number] [place] [address] Jun, [facility] [place] [facility] [address] [id number] [place] [address] May, [facility] [place] [facility] [address] [facility] [id number] [place] [address] May, [facility] [place] [facility] [address] [facility] [id number] [place] [address] May, [facility] [place] [facility] [address] [facility] [id number] [place] [address] May, [facility] [place] [facility] [address] [facility] [id number] [place] [address] May, [facility] [place] [facility] [address] [facility] [id number], [place] [address] May, [facility] [place] [facility] [address] [facility] [id number] [address] May, 2014 [facility] [place] [facility] [address] [facility] [id number] [place] [address] May, [facility] [place] [facility] [address] [facility] [id number] [place] [address] May, [facility] [place] [facility] [address] [facility] [id number], [place] [address] May, 2014 [facility] [place] [facility] [address] [facility] [id number], [place] [address] May, [facility] [place] [facility] [address] [id number] [place] [address] May, [facility] [place] [facility] [address] [id number] [place] [address] May, [facility] [place] [facility] [address] [facility] [id number] [place] [address] Apr, [facility] [place] [facility] [address] [id number] [place] [address] Apr, [facility] [place] [facility] [address] [id number] [place] [address] Apr, [facility] [place] [facility] [address] [facility] [id number] [place] [address] Apr, [facility] [place] [facility] [address] [facility] [id number] [place] [address] Apr, [facility] [place] [facility] [address] [facility] [id number] [place] [address] Apr, [facility] [place] [facility] [address] [facility] [id number] [place] [address] Apr, [facility] [place] [facility] [address] [facility] [id number] [place] [address] Mar, [facility] [place] [facility] [address] [facility] [id number] [place] [address] 31 Mar, 2014 [facility] [place] [facility] [address] [id number] [place] [address] Mar, [facility] [place] [facility] [address] [id number] [place] [address] 18 Mar, 2014 [facility] [place] [facility] [address] [facility] [id number] [place] [address] Mar, [facility] [place] [facility] [address] [facility] [id number] [place] [address] 17 Mar, 2014 [facility] [place] [facility] [address] [id number] [place] [address] Feb, [facility] [place] [facility] [address] [id number] [place] [address] Feb, [facility] [place] [facility] [address] [id number] [place] [address] Feb, [facility] [place] [facility] [address] [id number] [place] [address] Feb, [facility] [place] [facility] [address] [id number] [place] [address] Feb, [facility] [place] [facility] [address] [id number] [place] [address] Feb, [facility] [place] [facility] [address] [id number] [place] [address] Jan, [facility] [place] [facility] [address] [id number] [place] [address] Jan, [facility] [place] [facility] [address] [id number] [place] [address] Jan, [facility] [place] [facility] [address] [id number] [place] [address] Jan, [facility] [place] [facility] [address] [facility] [id number] [place] [address] Jan, [facility] [place] [facility] [address] [id number] [place] [address] Jan, [facility] [place] [facility] [address] [id number] [place] [address] Jan, [facility] [place] [facility] [address] [id number] [place] [address] Jan, [facility] [place] [facility] [address] [id number] [place] [address] Dec, [facility] [place] [facility] [address] [id number] [place] [address] Dec, [facility] [place] [facility] [address] [id number] [place] [address] Dec, [facility] [place] [facility] [address] [id number] [place] [address] Dec, [facility] [place] [facility] [address] [id number] [place] [address] Dec, [facility] [place] [facility] [address] [id number] [place] [address] Dec, [facility] [place] [facility] [address] [id number] [place] [address] Dec, [facility] [place] [facility] [address] [id number] [place] [address] Nov, [facility] [place] [facility] [address] [id number] [place] [address] Nov, [facility] [place] [facility] [address] [id number] [place] [address] Oct, [facility] [place] [facility] [address] [id number] [place] [address] Oct, [facility] [place] [facility] [address] [id number] [place] [address] Oct, [facility] [place] [facility] [address] [id number] [place] [address] Oct, [facility] [place] [facility] [address] [id number], [place] [address] Sep, [facility] [place] [facility] [address] [id number] [place] [address] Sep, [facility] [place] [facility] [address] [id number] [place] [address] Sep, [facility] [place] [facility] [address] [id number] [place] [address] Sep, [facility] [place] [facility] [address] [id number] [place] [address] Sep, [facility] [place] [facility] [address] [id number] [place] [address] Sep, [facility] [place] [facility] [address] [id number] [place] [address] Sep, [facility] [place] [facility] [address] [id number] [place] [address] Sep, [facility] [place] [facility] [address] [id number] [place] [address] August, [facility] [place] [facility] [address] [id number] [place] [address] August, [facility] [place] [facility] [address] [id number] [place] [address] August, [facility] [place] [facility] [address] [id number] [place] [address] August, [facility] [place] [facility] [address] [id number] [place] [address] Jul, [facility] [place] [facility] [address] [id number] [place] [address] 30 Jul, 2013 [facility] [place] [facility] [address] [id number] [place] [address] Jul, [facility] [place] [facility] [address] [id number] [place] [address] 24 Jul, 2013 [facility] [place] [facility] [address] [id number] [place] [address] 17 Jul, 2013 [facility] [place] [facility] [address] [id number] [place] [address] 16 Jul, 2013 [facility] [place] [facility] [address] [id number] [place] [address] 15 Jul, 2013 [facility] [place] [facility] [address] [id number] [place] [address] 15 Jul, 2013 [facility] [place] [facility] [address] [id number] [place] [address] Jun, [facility] [place] [facility] [address] [id number] [place] [address] Jun, [facility] [place] [facility] [address] [id number] [place] [address] Jun, [facility] [place] [facility] [address] [id number] [place] [address] Jun, [facility] [place] [facility] [address] [id number] [place] [address] Jun, [facility] [place] [facility] [address] [id number] [place] [address] Jun, [facility] [place] [facility] [address] [id number] [place] [address] Jun, [facility] [place] [facility] [address] [id number] [place] [address] Jun, [facility] [place] [facility] [address] [id number] [place] [address] May, [facility] [place] [facility] [address] [id number] [place] [address] May, [facility] [place] [facility] [address] [id number] [place] [address] Apr, [facility] [place] [facility] [address] [id number] [place] [address] Apr, [facility] [place] [facility] [address] [id number] [place] [address] Mar, [facility] [place] [facility] [address] [id number] [place] [address] Mar, [facility] [place] [facility] [address] [id number] [place] [address] Mar, [facility] [place] [facility] [address] [id number], [place] [address] 18 Mar, 2013 [facility] [place] [facility] [address] [id number] [place] [address] 18 Mar, 2013 [facility] [place] [facility] [address] [id number] [place] [address] Mar, [facility] [place] [facility] [address] [id number] [place] [address] Mar, [facility] [place] [facility] [address] [id number] [place] [address] Feb, [facility] [place] [facility] [address] [id number] [place] [address] Feb, [facility] [place] [facility] [address] [id number] [place] [address] Feb, [facility] [place] [facility] [address] [id number] [place] [address] Feb, [facility] [place] [facility] [address] [id number] [place] [address] Feb, [facility] [place] [facility] [address] [id number] [place] [address] 04 Feb, 2013 [facility] [place] [facility] [address] [id number] [place] [address] 26 Dec, 2012 [facility] [place] [facility] [address] [id number], [place] [address] 18 Dec, 2012 [facility] [place] [facility] [address] [id number], [place] [address] 13 Dec, 2012 [facility] [place] [facility] [address] [id number] [place] [address] 13 Dec, 2012 [facility] [place] [facility] [address] [id number] [place] [address] 06 Dec, 2012 [facility] [place] [facility] [address] [id number] [place] [address] 30 Nov, 2012 [facility] [place] [facility] [address] [id number] [place] [address] Nov, [facility] [place] [facility] [address] [id number] [place] [address] Oct, [facility] [address] [id number] [place] [address] August, [facility] [address] [id number] [place] [address] August, [facility] [address] [id number] [place] [address] August, [facility] [address] [id number] [place] [address] Jul, [facility] [address] [id number] [place] [address] Jul, [facility] [place] [facility] [address] [id number] [place] [address] Jul, [facility] [place] [facility] [address] [id number] [place] [address] Jun, [facility] [place] [facility] [address] [id number] [place] [address] Jun, [facility] [place] [facility] [address] [id number] [place] [address] Jun, [facility] [place] [facility] [address] [id number] [place] [address] Jun, [facility] [address] [id number] [place] [address] Jun, [facility] [address] [id number] [place] [address] 15 Jun, 2012 [facility] [address] [id number] [place] [address] Jun, [facility] [address] [id number] [place] [address] May, [facility] [address] [id number] [place] [address] May, [facility] [place] [facility] [address] [id number] [place] [address] May, [facility] [place] [facility] [address] [id number] [place] [address] May, [facility] [place] [facility] [address] [id number] [place] [address] Apr, [facility] [place] [facility] [address] [id number] [place] [address] Apr, [facility] [place] [facility] [address] [id number] [place] [address] Apr, [facility] [place] [facility] [address] [id number] [place] [address] Mar, [facility] [place] [facility] [address] [id number] [place] [address] Mar, [facility] [place] [facility] [address] [id number] [place] [address] Mar, [facility] [place] [facility] [address] [id number] [place] [address] Mar, [facility] [place] [facility] [address] [id number] [place] [address] Mar, [facility] [place] [facility] [address] [id number], [place] [address] Mar, [facility] [place] [facility] [address] [id number] [place] [address] Mar, [facility] [place] [facility] [address] [id number] [place] [address] Mar, [facility] [place] [facility] [address] [id number] [place] [address] Feb, [facility] [place] [facility] [address] [id number] [place] [address] Feb, [facility] [place] [facility] [address] [id number] [place] [address] Feb, [facility] [place] [facility] [address] [id number] [place] [address] Jan, [facility] [place] [facility] [address] [id number] [place] [address] Jan, [facility] [place] [facility] [address] [id number] [place] [address] Jan, [facility] [place] [facility] [address] [id number] [place] [address] Jan, [facility] [place] [facility] [address] [id number] [place] [address] Jan, [facility] [place] [facility] [address] [id number] [place] [address] Jan, [facility] [place] [facility] [address] [id number] [place] [address] Jan, [facility] [place] [facility] [address] [id number] [place] [address] Dec, [facility] [place] [facility] [address] [id number] [place] [address] 24 Dec, 2011 [facility] [place] [facility] [address] [id number] [place] [address] 10 Dec, 2011 [facility] [place] [facility] [address] [id number] [place] [address] 30 Nov, 2011 [facility] [place] [facility] [address] [id number] [place] [address] Nov, [facility] [place] [facility] [address] [id number] [place] [address] Nov, [facility] [place] [facility] [address] [id number] [place] [address] Nov, [facility] [place] [facility] [address] [id number] [place] [address] Oct, [facility] [place] [facility] [address] [id number] [place] [address] Oct, [facility] [place] [facility] [address] [id number] [place] [address] Oct, [facility] [place] [facility] [address] [id number] [place] [address] Sep, [facility] [address] [id number] [place] [address] Sep, [facility] [place] [facility] [address] [id number] [place] [address] Sep, [facility] [address] [id number] [place] [address] Sep, [facility] [place] [facility] [address] [id number] [place] [address] Sep, [facility] [place] [facility] [address] [id number] [place] [address] Sep, [facility] [place] [facility] [address] [id number] [place] [address] August, [facility] [place] [facility] [address] [id number] [place] [address] Jul, [facility] [place] [facility] [address] [id number] [place] [address] Jul, [facility] [place] [facility] [address] [id number] [place] [address] Jul, [facility] [place] [facility] [address] [id number] [place] [address] Jul, [facility] [place] [facility] [address] [id number] [place] [address] Jul, [facility] [place] [facility] [address] [id number] [place] [address] 29 Jun, 2011 [facility] [address] [id number] [place] [address] Jun, [facility] [place] [facility] [address] [id number] [place] [address] Jun, [facility] [place] [facility] [address] [facility] [id number] [place] [address] Jun, [facility] [place] [facility] [address] [id number] [place] [address] Jun, [facility] [place] [facility] [address] [id number] [place] [address] May, [facility] [place] [facility] [address] [id number] [place] [address] May, [facility] [address] [facility] [id number] [place] [address] May, [facility] [place] [facility] [address] [id number] [place] [address] May, [facility] [place] [facility] [address] [facility] [id number] [place] [address] May, [facility] [place] [facility] [address] [facility] [id number] [place] [address] May, [facility] [place] [facility] [address] [facility] [id number] [place] [address] May, [facility] [place] [facility] [address] [id number] [place] [address] Apr, [facility] [place] [facility] [address] [id number] [place] [address] Mar, [facility] [place] [facility] [address] [facility] [id number] [place] [address] Mar, [facility] [place] [facility] [address] [facility] [id number] [place] [address] Mar, [facility] [place] [facility] [address] [id number] [place] [address] Mar, [facility] [place] [facility] [address] [id number] [place] [address] Mar, [facility] [place] [facility] [address] [id number] [place] [address] Feb, [facility] [place] [facility] [address] [id number] [place] [address] Feb, [facility] [place] [facility] [address] [id number] [place] [address] Feb, [facility] [place] [facility] [address] [id number] [place] [address] Feb, [facility] [place] [facility] [address] [id number] [place] [address] Feb, [facility] [place] [facility] [address] [id number] [place] [address] Feb, [facility] [place] [facility] [address] [id number] [place] [address] Feb, [facility] [place] [facility] [address] [id number] [place] [address] Jan, [facility] [place] [facility] [address] [id number] [place] [address] Dec, [facility] [place] [facility] [address] [id number] [place] [address] Oct, [facility] [place] [facility] [address] [id number] [place] [address] Jun, [facility] [place] [facility] [address] [id number] [place] [address] Mar, [facility] [place] [facility] [address] [id number] [place] [address] Mar, [facility] [place] [facility] [address] [id number] [place] [address] 16 Mar, 2010 [facility] [place] [facility] [address] [id number] [place] [address] 16 Mar, 2010 [facility] [place] [facility] [address] [id number] [place] [address] 15 Mar, 2010 [facility] [place] [facility] [address] [id number] [place] [address] 10 Mar, 2010 [facility] [place] [facility] [address] [id number] [place] [address] 10 Mar, 2010 [facility] [place] [facility] [address] [id number] [place] [address] 05 Mar, 2010 [facility] [place] [facility] [address] [id number] [place] [address] 03 Mar, 2010 [facility] [place] [facility] [address] [id number] [place] [address] 02 Mar, 2010 [facility] [place] [facility] [address] [id number] [place] [address] Jan, [facility] [place] [facility] [address] [id number] [place] [address] Jan, [facility] [place] [facility] [address] [id number] [place] [address] Jan, [facility] [place] [facility] [address] [id number], [place] [address] Nov, [facility] [place] [facility] [address] [id number] [place] [address] 13 Oct, 2009 [facility] [place] [facility] [address] [id number] [place] [address] 31 Mar, 2009 [facility] [place] [facility] [address] [id number] [place] [address] 20 Mar, 2009 [facility] [place] [facility] [address] [id number] [place] [address] 17 Mar, 2009 [facility] [place] [facility] [address] [id number] [place] [address] Mar, [facility] [address] [id number] [address] Dec, [facility] [address] [id number] [address] August, [facility] [address] [id number] [address] August, [facility] [address] [id number] [address] Jul, [facility] [address] [id number] [address] Jan, [facility] [address] [id number] [address] Jan, IMMUNIZATIONS No Known Immunizations SOCIAL HISTORY Never Assessed REASON FOR VISIT [id number]-[id number] PLAN OF CARE VITAL SIGNS [...]
--- OUTSIDE RECORDS SUMMARY | 2018-09-22 02:32 | XMS REPORT ---
Author Author Migration, Doctor Organization [facility] Address Unknown Phone Unavailable Care Team Providers Care Asp Net Programmer Name Role Phone Migration, Doctor Unavailable Unavailable PROBLEMS Type Condition ICD9-CM Code IEC15-HM Code Onset Dates Condition Status SNOMED Code Problem Osteoporosis M81.0 Active 49991554 Problem Fibromyalgia M79.7 Active 20665053 Problem Unspecified abdominal pain R10.9 Active 029446467 Problem Chronic tension-type headache, not intractable G44.229 Active 661355653 Problem Chronic pain syndrome G89.4 Active 145491997 Problem Hypothyroidism, unspecified hypothyroidism type E03.9 Active 27705440 Problem Pancytopenia D61.818 Active 104004821 Problem Right sided sciatica M54.31 Active 91731655 Problem RUQ abdominal pain R10.11 Active 677521570 Problem Vitamin D deficiency E55.9 Active 71679266 Problem Chronic gastritis without bleeding, unspecified gastritis type K29.50 Active 8889879 Problem Vaginal atrophy N95.2 Active 367913503 Problem Hot flashes N95.1 Active 534776185 Problem Primary insomnia F51.01 Active 5836581 Problem Major depression, recurrent F33.9 Active 63873234 Problem Plantar fasciitis M72.2 Active 298879988 Problem Low back pain M54.5 Active 883415337 Problem Trigger point with back pain M54.9 Active 233881939 Problem Polyneuropathy associated with underlying disease G63 Active 951709219 Problem Drug induced constipation K59.03 Active 340755998736831 Problem Chronic prescription opiate use Z79.891 Active 861141505 Problem Porokeratosis Q82.8 Active 786326288 Problem Leukopenia, unspecified type D72.819 Active 77894900 Problem Allergic rhinitis, unspecified allergic rhinitis type J30.9 Active 39223817 Problem Pure hypercholesterolemia E78.00 Active 502984102 Problem Chronic obstructive pulmonary disease, unspecified COPD type J44.9 Active 43158731 Problem History of hepatitis C Z86.19 Active 97039331441709 Problem Other constipation K59.09 Active 701681656 Problem Allergy to intravenous contrast Z91.041 Active 473362993 Problem 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 Active 548840965 Problem Atrial fibrillation, unspecified type I48.91 Active 54924858 ALLERGIES No Information ENCOUNTERS Encounter Location Date Diagnosis [facility] [id number] [place] [address] Jul, Chronic pain syndrome G89.4 [place] [address] [address] Jun, Chronic pain syndrome G89.4 [facility] [address] [address] Jun, Acute bronchitis, unspecified organism J20.9 [place] [address] [address] Jun, Hypothyroidism, unspecified hypothyroidism type E03.9 [place] [address] [address] Jun, Chronic obstructive pulmonary disease, unspecified COPD type J44.9 ; Chronic pain syndrome G89.4 ; Hypothyroidism, unspecified hypothyroidism type E03.9 ; Allergic rhinitis, unspecified allergic rhinitis type J30.9 and Osteoporosis M81.0 [place] [id number] [place] [address] Jun, [facility] [id number] [place] [address] May, Influenza A J10.1 [place] [address] [address] May, Chronic pain syndrome G89.4 [place] [address] [address] Apr, Chronic pain syndrome G89.4 [facility] [id number] [place] [address] Apr, Acute maxillary sinusitis J01.00 and Sore throat J02.9 [place] [id number] [place] [address] Apr, Chronic pain syndrome G89.4 [place] [id number] [place] [address] Mar, Trochanteric bursitis of both hips M70.61 [place] [address] [address] Mar, Chronic pain syndrome G89.4 [facility] [id number] [place] [address] Feb, Sore throat and laryngitis J06.0 ; Acute streptococcal pharyngitis J02.0 ; Dog scratch W54.8XXA and Cellulitis L03.90 [place] [id number] [place] [address] Feb, Acute maxillary sinusitis J01.00 [place] [id number] [place] [address] Feb, Hypothyroidism, unspecified hypothyroidism type E03.9 [place] [address] [address] Feb, Chronic pain syndrome G89.4 [place] [id number] [place] [address] Jan, Fibromyalgia M79.7 ; Chronic pain syndrome G89.4 ; Low back pain M54.5 ; Hypothyroidism, unspecified hypothyroidism type E03.9 ; Leukopenia, unspecified type D72.819 ; Pure hypercholesterolemia E78.00 ; Right upper quadrant pain R10.11 ; Encounter for immunization Z23 ; Chronic gastritis without bleeding, unspecified gastritis type K29.50 ; Chronic prescription opiate use Z79.891 and BMI 28.0-28.9,adult Z68.28 [place] [id number] [place] [address] Jan, Chronic pain syndrome G89.4 [place] [id number] [place] [address] Dec, Chronic pain syndrome G89.4 [place] [id number] [place] [address] Nov, Onychocryptosis L60.0 [place] [id number] [place] [address] Nov, Chronic pain syndrome G89.4 [place] [id number] [place] [address] Nov, Trochanteric bursitis of both hips M70.61 [place] [address] [address] Oct, Hypothyroidism, unspecified hypothyroidism type E03.9 and Atrial fibrillation, unspecified type I48.91 [place] [address] [address] Oct, Fibromyalgia M79.7 ; Chronic pain syndrome G89.4 ; Hypothyroidism, unspecified hypothyroidism type E03.9 ; Overweight (BMI 25.0-29.9) E66.3 and Atrial fibrillation, unspecified type I48.91 [place] [id number] [place] [address] Oct, Chronic pain syndrome G89.4 [place] [id number] [place] [address] Sep, Chronic pain syndrome G89.4 [place] [id number] [place] [address] August, Somatic dysfunction of lumbar region M99.03 and Somatic dysfunction of pelvis region M99.05 [place] [id number] [place] [address] August, Chronic pain syndrome G89.4 [place] [id number] [place] [address] Jul, Trochanteric bursitis of left hip M70.62 and Trochanteric bursitis, right hip M70.61 [facility] [id number] [place] [address] Jul, [facility] [id number] [place] [address] Jul, Chronic pain syndrome G89.4 [facility] [id number] [place] [address] Jul, Hypothyroidism, unspecified hypothyroidism type E03.9 [facility] [id number] [place] [address] Jul, Hypothyroidism, unspecified hypothyroidism type E03.9 [place] [id number] [place] [address] Jul, Chronic tension-type headache, not intractable G44.229 ; Atrial fibrillation, unspecified type I48.91 ; Chronic pain syndrome G89.4 ; Hypothyroidism, unspecified hypothyroidism type E03.9 ; Pancytopenia D61.818 ; History of hepatitis C Z86.19 ; Vaginal atrophy N95.2 ; RUQ abdominal pain R10.11 ; Chronic prescription opiate use Z79.891 ; Osteoporosis M81.0 and Screening for breast cancer Z12.31 [place] [id number] [place] [address] Jun, [place] [id number] [place] [address] May, [facility] [id number] [place] [address] May, [facility] [id number] [place] [address] May, [facility] [id number] [place] [address] Apr, [facility] [id number] [place] [address] Apr, Hypothyroidism, unspecified hypothyroidism type E03.9 [place] [id number] [place] [address] Apr, Hypothyroidism, unspecified hypothyroidism type E03.9 and Leukopenia, unspecified type D72.819 [place] [id number] [place] [address] Mar, [place] [address] [address] Mar, Leukopenia, unspecified type D72.819 [place] [address] [address] Mar, Hypothyroidism, unspecified hypothyroidism type E03.9 and Low hemoglobin D64.9 [place] [address] [address] Mar, Hypothyroidism, unspecified hypothyroidism type E03.9 [place] [id number] [place] [address] Mar, Osteoporosis M81.0 ; Low hemoglobin D64.9 and Hypothyroidism, unspecified hypothyroidism type E03.9 [place] [id number] [place] [address] Mar, Hypothyroidism, unspecified hypothyroidism type E03.9 ; Bilirubin in urine R82.2 and Pancytopenia D61.818 [place] [id number] [place] [address] Feb, [facility] [id number] [place] [address] 18 Feb, 2017 Cough R05 and Bronchitis J40 [facility] [id number] [place] [address] 14 Feb, 2017 Other viral agents as the cause of diseases classified elsewhere B97.89 and Acute upper respiratory infection, unspecified J06.9 [place] [id number] [place] [address] Feb, Fibromyalgia M79.7 ; Chronic pain syndrome G89.4 ; Hypothyroidism, unspecified hypothyroidism type E03.9 ; Primary insomnia F51.01 ; Osteoporosis M81.0 ; Vision abnormalities H53.9 ; Pancytopenia D61.818 ; BMI 28.0-28.9,adult Z68.28 and Encounter for immunization Z23 [place] [id number] [place] [address] Feb, Neuroma D36.10 and Capsulitis of right foot M77.51 [place] [address] [address] Feb, [place] [address] [address] Feb, Hypothyroidism, unspecified hypothyroidism type E03.9 [place] [address] [address] Jan, [place] [address] [address] Jan, Atrial fibrillation, unspecified type I48.91 [place] [address] [address] Jan, [place] [id number] [place] [address] Jan, Fibromyalgia M79.7 ; Atrial fibrillation, unspecified type I48.91 ; Pain of left hand M79.642 ; Pain in right hand M79.641 ; Chronic prescription opiate use Z79.891 ; Chronic pain syndrome G89.4 ; Elevated fasting glucose R73.01 and Hypothyroidism, unspecified hypothyroidism type E03.9 [place] [address] [address] Jan, [place] [id number] [place] [address] Dec, Trochanteric bursitis of both hips M70.61 [id number] [place] [address] Dec, [facility] [id number] [place] [address] Dec, [facility] [id number] [place] [address] Nov, [place] [address] [address] Nov, Unilateral headache R51 [place] [address] [address] Nov, [place] [address] [address] Oct, Unilateral headache R51 ; 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 and Allergy to intravenous contrast Z91.041 [place] [address] [address] Oct, [place] [id number] [place] [address] Oct, [place] [address] [address] Sep, Hypothyroidism, unspecified hypothyroidism type E03.9 [place] [id number] [place] [address] Sep, Hypothyroidism, unspecified hypothyroidism type E03.9 and Bilirubin in urine R82.2 [place] [id number] [place] [address] Sep, Trochanteric bursitis of both hips M70.[address] [address] Sep, Hypothyroidism, unspecified hypothyroidism type E03.9 ; Dysuria R30.0 ; Chronic tension-type headache, not intractable G44.229 and Drug induced constipation K59.03 [place] [address] [address] Sep, [facility] [id number] [place] [address] Sep, [facility] [id number] [place] [address] August, [facility] [id number] [place] [address] Jul, [facility] [id number] [place] [address] Jul, Trochanteric bursitis of right hip M70.61 [place] [id number] [place] [address] Jul, Hypothyroidism, unspecified hypothyroidism type E03.9 [facility] [id number] [place] [address] Jul, Fibromyalgia M79.7 ; Chronic pain syndrome G89.4 ; Hypothyroidism, unspecified hypothyroidism type E03.9 and Other constipation K59.09 [facility] [id number] [place] [address] Jun, Swollen tonsil J35.1 and Strep throat J02.0 [facility] [id number] [place] [address] Jun, [facility] [id number] [place] [address] Jun, Acute maxillary sinusitis J01.00 [facility] [id number] [place] [address] Jun, Hypothyroidism, unspecified hypothyroidism type E03.9 [facility] [id number] [place] [address] Jun, Chronic pain syndrome G89.4 ; Fibromyalgia M79.7 ; Hypothyroidism, unspecified hypothyroidism type E03.9 and Chronic prescription opiate use Z79.891 [facility] [id number] [place] [address] 10 May, 2016 [place] [id number] [place] [address] Apr, Hypothyroidism, unspecified hypothyroidism type E03.9 [place] [id number] [place] [address] Apr, [place] [id number] [place] [address] Apr, Lipid screening Z13.220 and Hypothyroidism, unspecified hypothyroidism type E03.9 [place] [id number] [place] [address] Apr, [place] [id number] [place] [address] Mar, Trochanteric bursitis of both hips M70.[address] [address] Mar, [place] [id number] [place] [address] Mar, Plantar fasciitis M72.2 and Porokeratosis Q82.8 [place] [id number] [place] [address] Feb, Lipid screening Z13.220 ; Vitamin D deficiency E55.9 and Hypothyroidism, unspecified hypothyroidism type E03.9 [place] [id number] [place] [address] 16 Feb, 2016 Chronic pain syndrome G89.4 ; Hypothyroidism, unspecified hypothyroidism type E03.9 ; Pancytopenia D61.818 ; Vaginal atrophy N95.2 ; Chronic gastritis without bleeding, unspecified gastritis type K29.50 ; Vitamin D deficiency E55.9 ; Chronic prescription opiate use Z79.891 ; Adverse effect of other opioids, initial encounter T40.2X5A ; Drug induced constipation K59.03 ; Lipid screening Z13.220 and Encounter for immunization Z23 [place] [id number] [address] Feb, [facility] [id number] [place] [address] Feb, Ingrown toenail L60.0 [facility] [address] [place] [address] Jan, [facility] [id number] [place] [address] Jan, Trochanteric bursitis of both hips M70.61 [facility] [id number] [place] [address] Jan, [facility] [id number] [place] [address] Jan, [facility] [id number] [place] [address] Jan, [facility] [id number] [place] [address] Jan, Right sided sciatica M54.31 [facility] [id number] [place] [address] Dec, Onychomycosis B35.1 [facility] [address] [place] [address] Dec, [facility] [address] [place] [address] Dec, [facility] [address] [place] [address] Dec, [facility] [id number] [place] [address] Dec, Osteoarthritis of right hip, unspecified osteoarthritis type M16.11 and Bursitis of right hip M70.71 [facility] [address] [place] [address] Nov, [facility] [id number] [place] [address] 18 Nov, 2015 [facility] [id number] [place] [address] 17 Nov, 2015 [facility] [id number] [place] [address] 16 Nov, 2015 Hypothyroidism, unspecified hypothyroidism type E03.9 ; Vitamin D deficiency E55.9 and History of hepatitis C Z86.19 [facility] [id number] [place] [address] 10 Nov, 2015 Right upper quadrant pain R10.11 ; History of hepatitis C Z86.19 and Low back pain M54.5 [facility] [id number] [place] [address] Oct, Trochanteric bursitis, right hip M70.61 [facility] [id number] [place] [address] Oct, [facility] [id number] [place] [address] Oct, [facility] [id number] [place] [address] Oct, Trochanteric bursitis of both hips M70.61 and Right sided sciatica M54.31 [facility] [id number] [place] [address] 20 Oct, 2015 Trochanteric bursitis of both hips M70.61 [facility] [id number] [place] [address] 14 Oct, 2015 RUQ abdominal pain R10.11 [facility] [id number] [place] [address] 13 Oct, 2015 Sciatic leg pain M54.30 [facility] [id number] [place] [address] 11 Oct, 2015 RUQ abdominal pain R10.11 [place] [address] [place] [address] 07 Oct, 2015 RUQ abdominal pain R10.11 ; History of hepatitis C Z86.19 and Trigger point with back pain M54.9 [place] [id number] [place] [address] Sep, [place] [address] [address] Sep, Right sided sciatica M54.31 [place] [id number] [place] [address] Sep, Hypothyroidism, unspecified hypothyroidism type E03.9 and Vitamin D deficiency E55.9 [place] [id number] [place] [address] Sep, Plantar fasciitis M72.2 and Porokeratosis Q82.8 [place] [id number] [place] [address] Sep, Hypothyroidism, unspecified hypothyroidism type E03.9 ; Chronic pain syndrome G89.4 ; Polyneuropathy associated with underlying disease G63 and Vitamin D deficiency E55.9 [place] [id number] [place] [address] August, [place] [id number] [place] [address] Jul, Plantar fasciitis M72.2 [place] [id number] [place] [address] Jul, Trochanteric bursitis, right hip M70.61 [place] [id number] [place] [address] Jul, Hypothyroidism, unspecified hypothyroidism type E03.9 [place] [id number] [place] [address] Jul, Hypothyroidism, unspecified hypothyroidism type E03.9 ; Chronic pain syndrome G89.4 and Polyneuropathy associated with underlying disease G63 [place] [id number] [place] [address] Jun, Trochanteric bursitis of both hips M70.61 [facility] [id number] [place] [address] 08 Jun, 2015 Vitamin D deficiency E55.9 ; Osteoporosis M81.0 ; Low back pain M54.5 and Plantar fasciitis M72.2 [place] [id number] [place] [address] May, Vitamin D deficiency E55.9 and Hypothyroidism, unspecified hypothyroidism type E03.9 [place] [id number] [place] [address] 23 May, 2015 Acute maxillary sinusitis J01.00 [place] [address] [address] 18 May, 2015 Osteoporosis M81.0 and Hypothyroidism, unspecified hypothyroidism type E03.9 [place] [id number] [place] [address] 16 May, 2015 Osteoporosis M81.0 [place] [id number] [place] [address] 15 May, 2015 [place] [id number] [place] [address] Apr, [place] [id number] [place] [address] Apr, Trochanteric bursitis of both hips M70.61 [place] [address] [address] Apr, Hypothyroidism, unspecified hypothyroidism type E03.9 [place] [id number] [place] [address] Apr, Chronic pain syndrome G89.4 ; Bilateral low back pain with sciatica, sciatica laterality unspecified M54.40 ; Pain in right hip M25.551 ; Pain in left hip M25.552 ; Chronic prescription opiate use Z79.899 ; Primary insomnia F51.01 and Hypothyroidism, unspecified hypothyroidism type E03.9 [facility] [id number] [place] [address] Mar, [place] [address] [address] Feb, [place] [address] [address] Feb, Chronic pain syndrome G89.4 and Major depression F32.9 [place] [address] [address] Feb, Fatigue R53.83 [place] [address] [address] Feb, History of fracture Z87.81 [place] [id number] [place] [id number] Feb, Major depression, recurrent F33.9 and Generalized anxiety disorder F41.1 [place] [address] [address] [place] [id number] [place] [id number] Feb, [place] [address] [place] [id number] [place] [id number] Jan, Hypothyroidism, unspecified hypothyroidism type E03.9 [place] [address] [place] [id number] [place] [id number] Jan, Abdominal pain R10.9 and Hypothyroidism, unspecified hypothyroidism type E03.9 [place] [address] [address] [place] [id number] [place] [address] Jan, Abdominal pain R10.9 [place] [address] [id number] [place] [address] Jan, Hypothyroidism, unspecified hypothyroidism type E03.9 [place] [id number] [place] [address] Jan, [place] [address] [address] Jan, Encntr for obstetrician and gynaecologist exam (general) (routine) w/o 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 Z01.419 and Hypothyroidism, unspecified hypothyroidism type E03.9 [place] [address] [address] Jan, Encntr for obstetrician and gynaecologist exam (general) (routine) w/o 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 Z01.419 ; Abdominal pain R10.9 ; Dyspareunia N94.1 ; Encounter for immunization Z23 ; History of fracture Z87.81 ; Fatigue R53.83 ; Throat fullness R68.89 ; Bruises easily R23.8 ; Hot flashes N95.1 ; Depression F32.9 and Vaginal atrophy N95.[address] [address] Jan, Hypothyroidism, unspecified hypothyroidism type E03.9 [place] [address] [address] Jan, Unspecified abdominal pain R10.9 ; Chronic obstructive pulmonary disease, unspecified COPD type J44.9 ; Allergic rhinitis, unspecified allergic rhinitis type J30.9 ; Chronic pain syndrome G89.4 ; Hypothyroidism, unspecified hypothyroidism type E03.9 ; Chest pain, unspecified chest pain type R07.9 and Plantar fasciitis M72.2 [place] [address] [address] Jan, Trochanteric bursitis of both hips M70.[address] [address] Dec, [place] [address] [address] Nov, [place] [address] [address] Nov, [facility] [id number], [place] [address] Nov, Constipation 564.00 [facility] [id number] [address] Oct, Chronic pain 338.29 and Hypothyroidism 244.9 [facility] [id number] [address] Oct, [facility] [id number], [place] [address] Sep, [facility] [id number] [place] [address] Sep, [facility] [id number] [address] Sep, [facility] [id number] [place] [address] Sep, [facility] [id number], [place] [address] Sep, [facility] [id number], [place] [address] Sep, [facility] [id number], [place] [address] Sep, COPD exacerbation 491.21 ; Chronic pain 338.29 ; Hypothyroidism 244.9 and Pancytopenia 284.19 [facility] [id number], [place] [address] August, [facility] [id number], [place] [address] Jul, [facility] [id number], [place] [address] Jul, [facility] [id number], [place] [address] Jun, [facility] [id number] [place] [address] Jun, [facility] [place] [facility] [address] [id number] [place] [address] Jun, [facility] [place] [facility] [address] [id number] [place] [address] Jun, [facility] [place] [facility] [address] [facility] [id number] [place] [address] Jun, [facility] [place] [facility] [address] [id number] [place] [address] May, [facility] [place] [facility] [address] [id number] [place] [address] May, 2014 [facility] [place] [facility] [address] [facility] [id number] [place] [address] May, 2014 [facility] [place] [facility] [address] [facility] [id number] [place] [address] May, 2014 [facility] [place] [facility] [address] [facility] [id number] [place] [address] May, [facility] [place] [facility] [address] [facility] [id number] [place] [address] May, [facility] [place] [facility] [address] [facility] [id number] [place] [address] May, 2014 [facility] [place] [facility] [address] [facility] [id number], [place] [address] May, 2014 [facility] [place] [facility] [address] [facility] [id number] [place] [address] May, [facility] [place] [facility] [address] [facility] [id number] [place] [address] May, 2014 [facility] [place] [facility] [address] [facility] [id number], [place] [address] May, 2014 [facility] [place] [facility] [address] [facility] [id number], [place] [address] May, [facility] [place] [facility] [address] [id number] [place] [address] May, [facility] [place] [facility] [address] [id number] [place] [address] Apr, [facility] [place] [facility] [address] [facility] [id number] [place] [address] Apr, [facility] [place] [facility] [address] [id number] [place] [address] Apr, [facility] [place] [facility] [address] [id number] [place] [address] Apr, [facility] [place] [facility] [address] [facility] [id number] [place] [address] Apr, [facility] [place] [facility] [address] [facility] [id number] [place] [address] Apr, [facility] [place] [facility] [address] [facility] [id number] [place] [address] Apr, [facility] [place] [facility] [address] [facility] [id number] [place] [address] Mar, [facility] [place] [facility] [address] [facility] [id number] [place] [address] Mar, [facility] [place] [facility] [address] [facility] [id number] [place] [address] Mar, [facility] [place] [facility] [address] [facility] [id number] [place] [address] 18 Mar, 2014 [facility] [place] [facility] [address] [id number] [place] [address] 17 Mar, 2014 [facility] [place] [facility] [address] [facility] [id number] [place] [address] Mar, [facility] [place] [facility] [address] [facility] [id number] [place] [address] Feb, [facility] [place] [facility] [address] [id number] [place] [address] Feb, [facility] [place] [facility] [address] [id number] [place] [address] Feb, [facility] [place] [facility] [address] [id number] [place] [address] Feb, [facility] [place] [facility] [address] [id number] [place] [address] Feb, [facility] [place] [facility] [address] [id number] [place] [address] Feb, [facility] [place] [facility] [address] [id number] [place] [address] Jan, [facility] [place] [facility] [address] [id number] [place] [address] Jan, [facility] [place] [facility] [address] [id number] [place] [address] Jan, [facility] [place] [facility] [address] [id number] [place] [address] Jan, [facility] [place] [facility] [address] [id number] [place] [address] Jan, [facility] [place] [facility] [address] [facility] [id number] [place] [address] Jan, [facility] [place] [facility] [address] [id number] [place] [address] Jan, [facility] [place] [facility] [address] [id number] [place] [address] Jan, [facility] [place] [facility] [address] [id number] [place] [address] Dec, [facility] [place] [facility] [address] [id number] [place] [address] Dec, [facility] [place] [facility] [address] [id number] [place] [address] Dec, [facility] [place] [facility] [address] [id number] [place] [address] 23 Dec, 2013 [facility] [place] [facility] [address] [id number] [place] [address] Dec, [facility] [place] [facility] [address] [id number] [place] [address] Dec, [facility] [place] [facility] [address] [id number] [place] [address] Dec, [facility] [place] [facility] [address] [id number] [place] [address] Nov, [facility] [place] [facility] [address] [id number] [place] [address] Nov, [facility] [place] [facility] [address] [id number] [place] [address] Oct, [facility] [place] [facility] [address] [id number] [place] [address] Oct, [facility] [place] [facility] [address] [id number] [place] [address] Oct, [facility] [place] [facility] [address] [id number] [place] [address] Oct, [facility] [place] [facility] [address] [id number] [place] [address] Sep, [facility] [place] [facility] [address] [id number] [place] [address] Sep, [facility] [place] [facility] [address] [id number] [place] [address] Sep, [facility] [place] [facility] [address] [id number] [place] [address] Sep, [facility] [place] [facility] [address] [id number] [place] [address] Sep, [facility] [place] [facility] [address] [id number] [place] [address] Sep, [facility] [place] [facility] [address] [id number] [place] [address] Sep, [facility] [place] [facility] [address] [id number] [place] [address] Sep, [facility] [place] [facility] [address] [id number] [place] [address] August, [facility] [place] [facility] [address] [id number] [place] [address] August, [facility] [place] [facility] [address] [id number] [place] [address] August, [facility] [place] [facility] [address] [id number] [place] [address] August, [facility] [place] [facility] [address] [id number] [place] [address] Jul, [facility] [place] [facility] [address] [id number] [place] [address] 30 Jul, 2013 [facility] [place] [facility] [address] [id number] [place] [address] Jul, [facility] [place] [facility] [address] [id number] [place] [address] 24 Jul, 2013 [facility] [place] [facility] [address] [id number] [place] [address] 17 Jul, 2013 [facility] [place] [facility] [address] [id number] [place] [address] 16 Jul, 2013 [facility] [place] [facility] [address] [id number] [place] [address] 15 Jul, 2013 [facility] [place] [facility] [address] [id number] [place] [address] 15 Jul, 2013 [facility] [place] [facility] [address] [id number] [place] [address] 18 Jun, 2013 [facility] [place] [facility] [address] [id number] [place] [address] 18 Jun, 2013 [facility] [place] [facility] [address] [id number] [place] [address] Jun, [facility] [place] [facility] [address] [id number] [place] [address] Jun, [facility] [place] [facility] [address] [id number] [place] [address] Jun, [facility] [place] [facility] [address] [id number] [place] [address] Jun, [facility] [place] [facility] [address] [id number] [place] [address] Jun, [facility] [place] [facility] [address] [id number] [place] [address] Jun, [facility] [place] [facility] [address] [id number] [place] [address] May, [facility] [place] [facility] [address] [id number] [place] [address] May, [facility] [place] [facility] [address] [id number] [place] [address] Apr, [facility] [place] [facility] [address] [id number] [place] [address] Apr, [facility] [place] [facility] [address] [id number] [place] [address] Mar, [facility] [place] [facility] [address] [id number] [place] [address] Mar, [facility] [place] [facility] [address] [id number] [place] [address] Mar, [facility] [place] [facility] [address] [id number] [place] [address] 18 Mar, 2013 [facility] [place] [facility] [address] [id number], [place] [address] Mar, [facility] [place] [facility] [address] [id number] [place] [address] Mar, [facility] [place] [facility] [address] [id number] [place] [address] Mar, [facility] [place] [facility] [address] [id number] [place] [address] Feb, [facility] [place] [facility] [address] [id number] [place] [address] Feb, [facility] [place] [facility] [address] [id number] [place] [address] Feb, [facility] [place] [facility] [address] [id number] [place] [address] Feb, [facility] [place] [facility] [address] [id number] [place] [address] Feb, [facility] [place] [facility] [address] [id number] [place] [address] Feb, [facility] [place] [facility] [address] [id number] [place] [address] 26 Dec, 2012 [facility] [place] [facility] [address] [id number] [place] [address] 18 Dec, 2012 [facility] [place] [facility] [address] [id number], [place] [address] 13 Dec, 2012 [facility] [place] [facility] [address] [id number] [place] [address] 13 Dec, 2012 [facility] [place] [facility] [address] [id number] [place] [address] 06 Dec, 2012 [facility] [place] [facility] [address] [id number] [place] [address] 30 Nov, 2012 [facility] [place] [facility] [address] [id number] [place] [address] Nov, [facility] [place] [facility] [address] [id number] [place] [address] Oct, [facility] [address] [id number] [place] [address] August, [facility] [address] [id number] [place] [address] August, [facility] [address] [id number] [place] [address] August, [facility] [address] [id number] [place] [address] Jul, [facility] [address] [id number] [place] [address] Jul, [facility] [address] [id number] [place] [address] Jul, [facility] [address] [id number] [place] [address] Jun, [facility] [address] [id number] [place] [address] Jun, [facility] [address] [id number] [place] [address] Jun, [facility] [address] [id number] [place] [address] Jun, [facility] [address] [id number] [place] [address] Jun, [facility] [address] [id number] [place] [address] 15 Jun, 2012 [facility] [address] [id number] [place] [address] 12 Jun, 2012 [facility] [address] [id number] [place] [address] 18 May, 2012 [facility] [address] [id number] [place] [address] May, [facility] [place] [facility] [address] [id number] [place] [address] May, [facility] [place] [facility] [address] [id number] [place] [address] May, [facility] [place] [facility] [address] [id number] [place] [address] Apr, [facility] [place] [facility] [address] [id number] [place] [address] Apr, [facility] [place] [facility] [address] [id number] [place] [address] Apr, [facility] [place] [facility] [address] [id number] [place] [address] Mar, [facility] [place] [facility] [address] [id number] [place] [address] Mar, [facility] [place] [facility] [address] [id number] [place] [address] Mar, [facility] [place] [facility] [address] [id number] [place] [address] Mar, [facility] [place] [facility] [address] [id number] [place] [address] Mar, [facility] [place] [facility] [address] [id number] [place] [address] Mar, [facility] [place] [facility] [address] [id number], [place] [address] Mar, [facility] [place] [facility] [address] [id number] [place] [address] Mar, [facility] [place] [facility] [address] [id number] [place] [address] Feb, [facility] [place] [facility] [address] [id number] [place] [address] Feb, [facility] [place] [facility] [address] [id number] [place] [address] Feb, [facility] [place] [facility] [address] [id number] [place] [address] Jan, [facility] [place] [facility] [address] [id number] [place] [address] Jan, [facility] [place] [facility] [address] [id number] [place] [address] Jan, [facility] [place] [facility] [address] [id number] [place] [address] Jan, [facility] [place] [facility] [address] [id number] [place] [address] Jan, [facility] [place] [facility] [address] [id number] [place] [address] Jan, [facility] [place] [facility] [address] [id number] [place] [address] Jan, [facility] [place] [facility] [address] [id number] [place] [address] Dec, [facility] [place] [facility] [address] [id number] [place] [address] 24 Dec, 2011 [facility] [place] [facility] [address] [id number] [place] [address] Dec, [facility] [place] [facility] [address] [id number] [place] [address] 30 Nov, 2011 [facility] [place] [facility] [address] [id number] [place] [address] Nov, [facility] [place] [facility] [address] [id number] [place] [address] Nov, [facility] [place] [facility] [address] [id number] [place] [address] Nov, [facility] [place] [facility] [address] [id number] [place] [address] Oct, [facility] [place] [facility] [address] [id number] [place] [address] 05 Oct, 2011 [facility] [place] [facility] [address] [id number] [place] [address] Oct, [facility] [place] [facility] [address] [id number] [place] [address] Sep, [facility] [place] [facility] [address] [id number] [place] [address] Sep, [facility] [address] [id number] [place] [address] Sep, [facility] [place] [facility] [address] [id number] [place] [address] Sep, [facility] [address] [id number] [place] [address] Sep, [facility] [address] [id number] [place] [address] Sep, [facility] [place] [facility] [address] [id number] [place] [address] August, [facility] [place] [facility] [address] [id number] [place] [address] Jul, [facility] [place] [facility] [address] [id number] [place] [address] Jul, [facility] [place] [facility] [address] [id number] [place] [address] Jul, [facility] [place] [facility] [address] [id number] [place] [address] Jul, [facility] [place] [facility] [address] [id number] [place] [address] Jul, [facility] [place] [facility] [address] [id number] [place] [address] Jun, [facility] [place] [facility] [address] [id number] [place] [address] Jun, [facility] [address] [id number] [place] [address] Jun, [facility] [place] [facility] [address] [id number] [place] [address] 15 Jun, 2011 [facility] [address] [facility] [id number] [place] [address] Jun, [facility] [place] [facility] [address] [id number] [place] [address] May, [facility] [place] [facility] [address] [id number] [place] [address] May, [facility] [place] [facility] [address] [id number] [place] [address] May, [facility] [address] [facility] [id number] [place] [address] May, [facility] [place] [facility] [address] [id number] [place] [address] May, [facility] [place] [facility] [address] [id number] [place] [address] May, [facility] [place] [facility] [address] [facility] [id number] [place] [address] May, [facility] [place] [facility] [address] [facility] [id number] [place] [address] Apr, [facility] [place] [facility] [address] [id number] [place] [address] Mar, [facility] [place] [facility] [address] [id number] [place] [address] Mar, [facility] [place] [facility] [address] [facility] [id number] [place] [address] Mar, [facility] [place] [facility] [address] [facility] [id number] [place] [address] Mar, [facility] [place] [facility] [address] [id number] [place] [address] 08 Mar, 2011 [facility] [place] [facility] [address] [id number] [place] [address] Feb, [facility] [place] [facility] [address] [id number] [place] [address] Feb, [facility] [place] [facility] [address] [id number] [place] [address] Feb, [facility] [place] [facility] [address] [id number] [place] [address] Feb, [facility] [place] [facility] [address] [id number] [place] [address] Feb, [facility] [place] [facility] [address] [id number] [place] [address] Feb, [facility] [place] [facility] [address] [id number] [place] [address] Feb, [facility] [place] [facility] [address] [id number] [place] [address] Jan, [facility] [place] [facility] [address] [id number] [place] [address] Dec, [facility] [place] [facility] [address] [id number] [place] [address] Oct, [facility] [place] [facility] [address] [id number] [place] [address] Jun, [facility] [place] [facility] [address] [id number] [place] [address] Mar, [facility] [place] [facility] [address] [id number] [place] [address] Mar, [facility] [place] [facility] [address] [id number] [place] [address] 16 Mar, 2010 [facility] [place] [facility] [address] [id number] [place] [address] 16 Mar, 2010 [facility] [place] [facility] [address] [id number] [place] [address] 15 Mar, 2010 [facility] [place] [facility] [address] [id number] [place] [address] 10 Mar, 2010 [facility] [place] [facility] [address] [id number] [place] [address] 10 Mar, 2010 [facility] [place] [facility] [address] [id number] [place] [address] 05 Mar, 2010 [facility] [place] [facility] [address] [id number] [place] [address] 03 Mar, 2010 [facility] [place] [facility] [address] [id number] [place] [address] 02 Mar, 2010 [facility] [place] [facility] [address] [id number] [place] [address] Jan, [facility] [place] [facility] [address] [id number] [place] [address] Jan, [facility] [place] [facility] [address] [id number] [place] [address] Jan, [facility] [place] [facility] [address] [id number] [place] [address] Nov, [facility] [place] [facility] [address] [id number] [address] Oct, [facility] [place] [facility] [address] [id number] [place] [address] 31 Mar, 2009 [facility] [place] [facility] [address] [id number] [place] [address] 20 Mar, 2009 [facility] [place] [facility] [address] [id number] [place] [address] 17 Mar, 2009 [facility] [place] [facility] [address] [id number] [place] [address] 17 Mar, 2009 [facility] [place] [facility] [address] [facility] [id number] [place] [address] 17 Dec, 2008 [facility] [address] [id number] [address] August, [facility] [address] [id number], [place] [address] August, [facility] [address] [id number], [place] [address] Jul, [facility] [address] [id number], [place] [address] Jan, [facility] [address] [id number], [place] [address] Jan, IMMUNIZATIONS No Known Immunizations SOCIAL HISTORY Never Assessed [place] [place] [...]
--- OUTSIDE RECORDS SUMMARY | 2018-09-22 02:33 | XMS REPORT ---
Author Author Migration, Doctor Organization [facility] Address Unknown Phone Unavailable Care Team Providers Care Graduate Nurse Name Role Phone Migration, Doctor Unavailable Unavailable PROBLEMS Type Condition ICD9-CM Code IQL09-YO Code Onset Dates Condition Status SNOMED Code Problem Osteoporosis M81.0 Active 16781243 Problem Fibromyalgia M79.7 Active 00743128 Problem Unspecified abdominal pain R10.9 Active 423662054 Problem Chronic tension-type headache, not intractable G44.229 Active 250869212 Problem Chronic pain syndrome G89.4 Active 191308054 Problem Hypothyroidism, unspecified hypothyroidism type E03.9 Active 79395947 Problem Pancytopenia D61.818 Active 269626711 Problem Right sided sciatica M54.31 Active 94776525 Problem RUQ abdominal pain R10.11 Active 391552555 Problem Vitamin D deficiency E55.9 Active 86479768 Problem Chronic gastritis without bleeding, unspecified gastritis type K29.50 Active 7453387 Problem Vaginal atrophy N95.2 Active 737980904 Problem Hot flashes N95.1 Active 428087717 Problem Primary insomnia F51.01 Active 6062964 Problem Major depression, recurrent F33.9 Active 82079216 Problem Plantar fasciitis M72.2 Active 632419068 Problem Low back pain M54.5 Active 413980870 Problem Trigger point with back pain M54.9 Active 462234087 Problem Polyneuropathy associated with underlying disease G63 Active 021321433 Problem Drug induced constipation K59.03 Active 133369441089322 Problem Chronic prescription opiate use Z79.891 Active 550844036 Problem Porokeratosis Q82.8 Active 135387741 Problem Leukopenia, unspecified type D72.819 Active 50443496 Problem Allergic rhinitis, unspecified allergic rhinitis type J30.9 Active 85907858 Problem Pure hypercholesterolemia E78.00 Active 612109007 Problem Chronic obstructive pulmonary disease, unspecified COPD type J44.9 Active 67707115 Problem History of hepatitis C Z86.19 Active 75653021548951 Problem Other constipation K59.09 Active 381577094 Problem Allergy to intravenous contrast Z91.041 Active 622678967 Problem 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 Active 290053206 Problem Atrial fibrillation, unspecified type I48.91 Active 99334525 ALLERGIES No Information ENCOUNTERS Encounter Location Date Diagnosis [facility] [id number] [place] [phone] Jul, Chronic pain syndrome G89.4 [place] [address] [address] Jun, Chronic pain syndrome G89.4 [facility] [address] [address] Jun, Acute bronchitis, unspecified organism J20.9 [place] [address] [address] Jun, Hypothyroidism, unspecified hypothyroidism type E03.9 [place] [address] [address] Jun, Chronic obstructive pulmonary disease, unspecified COPD type J44.9 ; Chronic pain syndrome G89.4 ; Hypothyroidism, unspecified hypothyroidism type E03.9 ; Allergic rhinitis, unspecified allergic rhinitis type J30.9 and Osteoporosis M81.0 [place] [id number] [place] [address] Jun, [facility] [id number] [place] [address] May, Influenza A J10.1 [place] [address] [address] May, Chronic pain syndrome G89.4 [place] [address] [address] Apr, Chronic pain syndrome G89.4 [facility] [id number] [place] [address] Apr, Acute maxillary sinusitis J01.00 and Sore throat J02.9 [place] [id number] [place] [address] Apr, Chronic pain syndrome G89.4 [place] [id number] [place] [address] Mar, Trochanteric bursitis of both hips M70.61 [place] [address] [address] Mar, Chronic pain syndrome G89.4 [facility] IN [facility] [id number] [place] [address] Feb, Sore throat and laryngitis J06.0 ; Acute streptococcal pharyngitis J02.0 ; Dog scratch W54.8XXA and Cellulitis L03.90 [place] [id number] [place] [address] Feb, Acute maxillary sinusitis J01.00 [place] [id number] [place] [address] Feb, Hypothyroidism, unspecified hypothyroidism type E03.9 [place] [address] [address] Feb, Chronic pain syndrome G89.4 [place] [id number] [place] [address] Jan, Fibromyalgia M79.7 ; Chronic pain syndrome G89.4 ; Low back pain M54.5 ; Hypothyroidism, unspecified hypothyroidism type E03.9 ; Leukopenia, unspecified type D72.819 ; Pure hypercholesterolemia E78.00 ; Right upper quadrant pain R10.11 ; Encounter for immunization Z23 ; Chronic gastritis without bleeding, unspecified gastritis type K29.50 ; Chronic prescription opiate use Z79.891 and BMI 28.0-28.9,adult Z68.28 [place] [id number] [place] [address] Jan, Chronic pain syndrome G89.4 [place] [id number] [place] [address] Dec, Chronic pain syndrome G89.4 [place] [id number] [place] [address] Nov, Onychocryptosis L60.0 [place] [id number] [place] [address] Nov, Chronic pain syndrome G89.4 [place] [id number] [place] [address] Nov, Trochanteric bursitis of both hips M70.61 [place] [address] [address] Oct, Hypothyroidism, unspecified hypothyroidism type E03.9 and Atrial fibrillation, unspecified type I48.91 [place] [address] [address] Oct, Fibromyalgia M79.7 ; Chronic pain syndrome G89.4 ; Hypothyroidism, unspecified hypothyroidism type E03.9 ; Overweight (BMI 25.0-29.9) E66.3 and Atrial fibrillation, unspecified type I48.91 [place] [id number] [place] [address] Oct, Chronic pain syndrome G89.4 [place] [id number] [place] [address] Sep, Chronic pain syndrome G89.4 [place] [id number] [place] [address] August, Somatic dysfunction of lumbar region M99.03 and Somatic dysfunction of pelvis region M99.05 [place] [id number] [place] [address] August, Chronic pain syndrome G89.4 [place] [id number] [place] [address] Jul, Trochanteric bursitis of left hip M70.62 and Trochanteric bursitis, right hip M70.61 [facility] [id number] [place] [address] Jul, [facility] [id number] [place] [address] Jul, Chronic pain syndrome G89.4 [facility] [id number] [place] [address] Jul, Hypothyroidism, unspecified hypothyroidism type E03.9 [facility] [id number] [place] [address] Jul, Hypothyroidism, unspecified hypothyroidism type E03.9 [place] [id number] [place] [address] Jul, Chronic tension-type headache, not intractable G44.229 ; Atrial fibrillation, unspecified type I48.91 ; Chronic pain syndrome G89.4 ; Hypothyroidism, unspecified hypothyroidism type E03.9 ; Pancytopenia D61.818 ; History of hepatitis C Z86.19 ; Vaginal atrophy N95.2 ; RUQ abdominal pain R10.11 ; Chronic prescription opiate use Z79.891 ; Osteoporosis M81.0 and Screening for breast cancer Z12.31 [place] [id number] [place] [address] Jun, [place] [id number] [place] [address] May, [facility] [id number] [place] [address] May, [facility] [id number] [place] [address] May, [facility] [id number] [place] [address] Apr, [facility] [id number] [place] [address] Apr, Hypothyroidism, unspecified hypothyroidism type E03.9 [place] [id number] [place] [address] Apr, Hypothyroidism, unspecified hypothyroidism type E03.9 and Leukopenia, unspecified type D72.819 [place] [id number] [place] [address] Mar, [place] [address] [address] Mar, Leukopenia, unspecified type D72.819 [place] [address] [address] Mar, Hypothyroidism, unspecified hypothyroidism type E03.9 and Low hemoglobin D64.9 [place] [address] [address] Mar, Hypothyroidism, unspecified hypothyroidism type E03.9 [place] [id number] [place] [address] Mar, Osteoporosis M81.0 ; Low hemoglobin D64.9 and Hypothyroidism, unspecified hypothyroidism type E03.9 [place] [id number] [place] [address] Mar, Hypothyroidism, unspecified hypothyroidism type E03.9 ; Bilirubin in urine R82.2 and Pancytopenia D61.818 [place] [id number] [place] [address] Feb, [facility] [id number] [place] [address] 18 Feb, 2017 Cough R05 and Bronchitis J40 [facility] [place] [id number] [place] [address] 14 Feb, 2017 Other viral agents as the cause of diseases classified elsewhere B97.89 and Acute upper respiratory infection, unspecified J06.9 [place] [id number] [place] [address] Feb, Fibromyalgia M79.7 ; Chronic pain syndrome G89.4 ; Hypothyroidism, unspecified hypothyroidism type E03.9 ; Primary insomnia F51.01 ; Osteoporosis M81.0 ; Vision abnormalities H53.9 ; Pancytopenia D61.818 ; BMI 28.0-28.9,adult Z68.28 and Encounter for immunization Z23 [place] [id number] [place] [address] Feb, Neuroma D36.10 and Capsulitis of right foot M77.51 [place] [address] [address] Feb, [place] [address] [address] Feb, Hypothyroidism, unspecified hypothyroidism type E03.9 [place] [address] [address] Jan, [place] [address] [address] Jan, Atrial fibrillation, unspecified type I48.91 [place] [address] [address] Jan, [place] [id number] [place] [address] Jan, Fibromyalgia M79.7 ; Atrial fibrillation, unspecified type I48.91 ; Pain of left hand M79.642 ; Pain in right hand M79.641 ; Chronic prescription opiate use Z79.891 ; Chronic pain syndrome G89.4 ; Elevated fasting glucose R73.01 and Hypothyroidism, unspecified hypothyroidism type E03.9 [place] [address] [address] Jan, [place] [id number] [place] [address] Dec, Trochanteric bursitis of both hips M70.61 [id number] [place] [address] Dec, [facility] [id number] [place] [address] Dec, [facility] [id number] [place] [address] Nov, [place] [address] [address] Nov, Unilateral headache R51 [place] [address] [address] Nov, [place] [address] [address] Oct, Unilateral headache R51 ; 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 and Allergy to intravenous contrast Z91.041 [place] [address] [address] Oct, [place] [id number] [place] [address] Oct, [place] [address] [address] Sep, Hypothyroidism, unspecified hypothyroidism type E03.9 [place] [id number] [place] [address] Sep, Hypothyroidism, unspecified hypothyroidism type E03.9 and Bilirubin in urine R82.2 [place] [id number] [place] [address] Sep, Trochanteric bursitis of both hips M70.[address] [address] Sep, Hypothyroidism, unspecified hypothyroidism type E03.9 ; Dysuria R30.0 ; Chronic tension-type headache, not intractable G44.229 and Drug induced constipation K59.03 [place] [address] [address] Sep, [facility] [address] [place] [address] Sep, [facility] [id number] [place] [address] August, [facility] [id number] [place] [address] Jul, [facility] [id number] [place] [address] Jul, Trochanteric bursitis of right hip M70.61 [place] [id number] [place] [address] Jul, Hypothyroidism, unspecified hypothyroidism type E03.9 [facility] [id number] [place] [address] Jul, Fibromyalgia M79.7 ; Chronic pain syndrome G89.4 ; Hypothyroidism, unspecified hypothyroidism type E03.9 and Other constipation K59.09 [facility] [address] [place] [address] Jun, Swollen tonsil J35.1 and Strep throat J02.0 [facility] [id number] [place] [address] Jun, [facility] [id number] [place] [address] Jun, Acute maxillary sinusitis J01.00 [facility] [id number] [place] [address] Jun, Hypothyroidism, unspecified hypothyroidism type E03.9 [facility] [id number] [place] [address] Jun, Chronic pain syndrome G89.4 ; Fibromyalgia M79.7 ; Hypothyroidism, unspecified hypothyroidism type E03.9 and Chronic prescription opiate use Z79.891 [facility] [id number] [place] [address] 10 May, 2016 [place] [id number] [place] [address] Apr, Hypothyroidism, unspecified hypothyroidism type E03.9 [place] [id number] [place] [address] Apr, [place] [id number] [place] [address] Apr, Lipid screening Z13.220 and Hypothyroidism, unspecified hypothyroidism type E03.9 [place] [id number] [place] [address] Apr, [place] [id number] [place] [address] Mar, Trochanteric bursitis of both hips M70.[address] [address] Mar, [place] [id number] [place] [address] Mar, Plantar fasciitis M72.2 and Porokeratosis Q82.8 [place] [id number] [place] [address] Feb, Lipid screening Z13.220 ; Vitamin D deficiency E55.9 and Hypothyroidism, unspecified hypothyroidism type E03.9 [place] [id number] [place] [address] 16 Feb, 2016 Chronic pain syndrome G89.4 ; Hypothyroidism, unspecified hypothyroidism type E03.9 ; Pancytopenia D61.818 ; Vaginal atrophy N95.2 ; Chronic gastritis without bleeding, unspecified gastritis type K29.50 ; Vitamin D deficiency E55.9 ; Chronic prescription opiate use Z79.891 ; Adverse effect of other opioids, initial encounter T40.2X5A ; Drug induced constipation K59.03 ; Lipid screening Z13.220 and Encounter for immunization Z23 [place] [id number] [address] Feb, [facility] [id number] [place] [address] Feb, Ingrown toenail L60.0 [facility] [address] [place] [address] Jan, [facility] [id number] [place] [address] Jan, Trochanteric bursitis of both hips M70.61 [facility] [id number] [place] [address] Jan, [facility] [id number] [place] [address] Jan, [facility] [id number] [place] [address] Jan, [facility] [id number] [place] [address] Jan, Right sided sciatica M54.31 [facility] [id number] [place] [address] Dec, Onychomycosis B35.1 [facility] [address] [place] [address] Dec, [facility] [address] [place] [address] Dec, [facility] [address] [place] [address] Dec, [facility] [id number] [place] [address] Dec, Osteoarthritis of right hip, unspecified osteoarthritis type M16.11 and Bursitis of right hip M70.71 [facility] [address] [place] [address] Nov, [facility] [id number] [place] [address] 18 Nov, 2015 [facility] [id number] [place] [address] 17 Nov, 2015 [facility] [id number] [place] [address] 16 Nov, 2015 Hypothyroidism, unspecified hypothyroidism type E03.9 ; Vitamin D deficiency E55.9 and History of hepatitis C Z86.19 [facility] [id number] [place] [address] 10 Nov, 2015 Right upper quadrant pain R10.11 ; History of hepatitis C Z86.19 and Low back pain M54.5 [facility] [id number] [place] [address] Oct, Trochanteric bursitis, right hip M70.61 [facility] [id number] [place] [address] Oct, [facility] [id number] [place] [address] Oct, [facility] [id number] [place] [address] Oct, Trochanteric bursitis of both hips M70.61 and Right sided sciatica M54.31 [facility] [id number] [place] [address] 20 Oct, 2015 Trochanteric bursitis of both hips M70.61 [facility] [id number] [place] [address] 14 Oct, 2015 RUQ abdominal pain R10.11 [facility] [id number] [place] [address] 13 Oct, 2015 Sciatic leg pain M54.30 [facility] [id number] [place] [address] 11 Oct, 2015 RUQ abdominal pain R10.11 [place] [address] [place] [address] 07 Oct, 2015 RUQ abdominal pain R10.11 ; History of hepatitis C Z86.19 and Trigger point with back pain M54.9 [place] [id number] [place] [address] Sep, [place] [address] [address] Sep, Right sided sciatica M54.31 [place] [id number] [place] [address] Sep, Hypothyroidism, unspecified hypothyroidism type E03.9 and Vitamin D deficiency E55.9 [place] [id number] [place] [address] Sep, Plantar fasciitis M72.2 and Porokeratosis Q82.8 [place] [id number] [place] [address] Sep, Hypothyroidism, unspecified hypothyroidism type E03.9 ; Chronic pain syndrome G89.4 ; Polyneuropathy associated with underlying disease G63 and Vitamin D deficiency E55.9 [place] [id number] [place] [address] August, [place] [id number] [place] [address] Jul, Plantar fasciitis M72.2 [place] [id number] [place] [address] Jul, Trochanteric bursitis, right hip M70.61 [place] [id number] [place] [address] Jul, Hypothyroidism, unspecified hypothyroidism type E03.9 [place] [id number] [place] [address] Jul, Hypothyroidism, unspecified hypothyroidism type E03.9 ; Chronic pain syndrome G89.4 and Polyneuropathy associated with underlying disease G63 [place] [id number] [place] [address] Jun, Trochanteric bursitis of both hips M70.61 [facility] [id number] [place] [address] 08 Jun, 2015 Vitamin D deficiency E55.9 ; Osteoporosis M81.0 ; Low back pain M54.5 and Plantar fasciitis M72.2 [place] [id number] [place] [address] May, Vitamin D deficiency E55.9 and Hypothyroidism, unspecified hypothyroidism type E03.9 [place] [id number] [place] [address] 23 May, 2015 Acute maxillary sinusitis J01.00 [place] [address] [address] 18 May, 2015 Osteoporosis M81.0 and Hypothyroidism, unspecified hypothyroidism type E03.9 [place] [id number] [place] [address] 16 May, 2015 Osteoporosis M81.0 [place] [id number] [place] [address] 15 May, 2015 [place] [id number] [place] [address] Apr, [place] [id number] [place] [address] Apr, Trochanteric bursitis of both hips M70.61 [place] [address] [address] Apr, Hypothyroidism, unspecified hypothyroidism type E03.9 [place] [id number] [place] [id number] Apr, Chronic pain syndrome G89.4 ; Bilateral low back pain with sciatica, sciatica laterality unspecified M54.40 ; Pain in right hip M25.551 ; Pain in left hip M25.552 ; Chronic prescription opiate use Z79.899 ; Primary insomnia F51.01 and Hypothyroidism, unspecified hypothyroidism type E03.9 [facility] [id number] [place] [id number] Mar, [place] [address] [id number] Feb, [place] [address] [address] Feb, Chronic pain syndrome G89.4 and Major depression F32.9 [place] [address] [address] Feb, Fatigue R53.83 [place] [address] [address] Feb, History of fracture Z87.81 [place] [address] [place] [address] [id number] [place] [id number] Feb, Major depression, recurrent F33.9 and Generalized anxiety disorder F41.1 [place] [address] [place] [address] [id number] [place] [phone] Feb, [place] [address] [place] [id number] [place] [id number] Jan, Hypothyroidism, unspecified hypothyroidism type E03.9 [place] [address] [id number] [place] [id number] Jan, Abdominal pain R10.9 and Hypothyroidism, unspecified hypothyroidism type E03.9 [place] [address] [place] [address] [id number] [place] [id number] Jan, Abdominal pain R10.9 [place] [id number] [place] [address] Jan, Hypothyroidism, unspecified hypothyroidism type E03.9 [place] [id number] [place] [address] Jan, [place] [address] [address] Jan, 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 and Hypothyroidism, unspecified hypothyroidism type E03.9 [place] [address] [address] Jan, 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 ; Abdominal pain R10.9 ; Dyspareunia N94.1 ; Encounter for immunization Z23 ; History of fracture Z87.81 ; Fatigue R53.83 ; Throat fullness R68.89 ; Bruises easily R23.8 ; Hot flashes N95.1 ; Depression F32.9 and Vaginal atrophy N95.[address] [address] Jan, Hypothyroidism, unspecified hypothyroidism type E03.9 [place] [address] [address] Jan, Unspecified abdominal pain R10.9 ; Chronic obstructive pulmonary disease, unspecified COPD type J44.9 ; Allergic rhinitis, unspecified allergic rhinitis type J30.9 ; Chronic pain syndrome G89.4 ; Hypothyroidism, unspecified hypothyroidism type E03.9 ; Chest pain, unspecified chest pain type R07.9 and Plantar fasciitis M72.2 [place] [address] [address] Jan, Trochanteric bursitis of both hips M70.[address] [address] Dec, [place] [address] [address] Nov, [place] [address] [address] Nov, [facility] [id number] [address] Nov, Constipation 564.00 [facility] [id number] [address] Oct, Chronic pain 338.29 and Hypothyroidism 244.9 [facility] [id number] [address] Oct, [facility] [id number] [address] Sep, [facility] [id number] [place] [address] Sep, [facility] [id number] [address] Sep, [facility] [id number] [place] [address] Sep, [facility] [id number] [address] Sep, [facility] [id number] [address] Sep, [facility] [id number] [address] Sep, COPD exacerbation 491.21 ; Chronic pain 338.29 ; Hypothyroidism 244.9 and Pancytopenia 284.19 [facility] [id number] [address] August, [facility] [id number] [address] Jul, [facility] [id number] [address] Jul, [facility] [id number] [address] Jun, [facility] [id number] [address] Jun, [facility] [place] [facility] [address] [id number] [place] [address] Jun, [facility] [place] [facility] [address] [id number] [place] [address] Jun, [facility] [place] [facility] [address] [facility] [id number] [place] [address] Jun, [facility] [place] [facility] [address] [id number] [place] [address] May, [facility] [place] [facility] [address] [id number] [place] [address] May, 2014 [facility] [place] [facility] [address] [facility] [id number] [place] [address] May, 2014 [facility] [place] [facility] [address] [facility] [id number] [place] [address] May, 2014 [facility] [place] [facility] [address] [facility] [id number] [place] [address] May, [facility] [place] [facility] [address] [facility] [id number] [place] [address] May, [facility] [place] [facility] [address] [facility] [id number] [place] [address] May, 2014 [facility] [place] [facility] [address] [facility] [id number] [address] May, 2014 [facility] [place] [facility] [address] [facility] [id number] [place] [address] May, [facility] [place] [facility] [address] [facility] [id number] [place] [address] May, 2014 [facility] [place] [facility] [address] [facility] [id number] [address] May, 2014 [facility] [place] [facility] [address] [facility] [id number] [address] May, [facility] [place] [facility] [address] [id number] [place] [address] May, [facility] [place] [facility] [address] [id number] [place] [address] Apr, [facility] [place] [facility] [address] [facility] [id number] [place] [address] Apr, [facility] [place] [facility] [address] [id number] [place] [address] Apr, [facility] [place] [facility] [address] [id number] [place] [address] Apr, [facility] [place] [facility] [address] [facility] [id number] [place] [address] Apr, [facility] [place] [facility] [address] [facility] [id number] [place] [address] Apr, [facility] [place] [facility] [address] [facility] [id number] [place] [address] Apr, [facility] [place] [facility] [address] [facility] [id number] [place] [address] Mar, [facility] [place] [facility] [address] [facility] [id number] [place] [address] Mar, [facility] [place] [facility] [address] [facility] [id number] [place] [address] Mar, [facility] [place] [facility] [address] [facility] [id number] [place] [address] 18 Mar, 2014 [facility] [place] [facility] [address] [id number] [place] [address] 17 Mar, 2014 [facility] [place] [facility] [address] [facility] [id number] [place] [address] Mar, [facility] [place] [facility] [address] [facility] [id number] [place] [address] Feb, [facility] [place] [facility] [address] [id number] [place] [address] Feb, [facility] [place] [facility] [address] [id number] [place] [address] Feb, [facility] [place] [facility] [address] [id number] [place] [address] Feb, [facility] [place] [facility] [address] [id number] [place] [address] Feb, [facility] [place] [facility] [address] [id number] [place] [address] Feb, [facility] [place] [facility] [address] [id number] [place] [address] Jan, [facility] [place] [facility] [address] [id number] [place] [address] Jan, [facility] [place] [facility] [address] [id number] [place] [address] Jan, [facility] [place] [facility] [address] [id number] [place] [address] Jan, [facility] [place] [facility] [address] [id number] [place] [address] Jan, [facility] [place] [facility] [address] [facility] [id number] [place] [address] Jan, [facility] [place] [facility] [address] [id number] [place] [address] Jan, [facility] [place] [facility] [address] [id number] [place] [address] Jan, [facility] [place] [facility] [address] [id number] [place] [address] Dec, [facility] [place] [facility] [address] [id number] [place] [address] Dec, [facility] [place] [facility] [address] [id number] [place] [address] Dec, [facility] [place] [facility] [address] [id number] [place] [address] 23 Dec, 2013 [facility] [place] [facility] [address] [id number] [place] [address] Dec, [facility] [place] [facility] [address] [id number] [place] [address] Dec, [facility] [place] [facility] [address] [id number] [place] [address] Dec, [facility] [place] [facility] [address] [id number] [place] [address] Nov, [facility] [place] [facility] [address] [id number] [place] [address] Nov, [facility] [place] [facility] [address] [id number] [place] [address] Oct, [facility] [place] [facility] [address] [id number] [place] [address] Oct, [facility] [place] [facility] [address] [id number] [place] [address] Oct, [facility] [place] [facility] [address] [id number] [place] [address] Oct, [facility] [place] [facility] [address] [id number] [place] [address] Sep, [facility] [place] [facility] [address] [id number] [place] [address] Sep, [facility] [place] [facility] [address] [id number] [place] [address] Sep, [facility] [place] [facility] [address] [id number] [place] [address] Sep, [facility] [place] [facility] [address] [id number] [place] [address] Sep, [facility] [place] [facility] [address] [id number] [place] [address] Sep, [facility] [place] [facility] [address] [id number] [place] [address] Sep, [facility] [place] [facility] [address] [id number] [place] [address] Sep, [facility] [place] [facility] [address] [id number] [place] [address] August, [facility] [place] [facility] [address] [id number] [place] [address] August, [facility] [place] [facility] [address] [id number] [place] [address] August, [facility] [place] [facility] [address] [id number] [place] [address] August, [facility] [place] [facility] [address] [id number] [place] [address] Jul, [facility] [place] [facility] [address] [id number] [place] [address] 30 Jul, 2013 [facility] [place] [facility] [address] [id number] [place] [address] Jul, [facility] [place] [facility] [address] [id number] [place] [address] 24 Jul, 2013 [facility] [place] [facility] [address] [id number] [place] [address] 17 Jul, 2013 [facility] [place] [facility] [address] [id number] [place] [address] 16 Jul, 2013 [facility] [place] [facility] [address] [id number] [place] [address] 15 Jul, 2013 [facility] [place] [facility] [address] [id number] [place] [address] 15 Jul, 2013 [facility] [place] [facility] [address] [id number] [place] [address] 18 Jun, 2013 [facility] [place] [facility] [address] [id number] [place] [address] 18 Jun, 2013 [facility] [place] [facility] [address] [id number] [place] [address] Jun, [facility] [place] [facility] [address] [id number] [place] [address] Jun, [facility] [place] [facility] [address] [id number] [place] [address] Jun, [facility] [place] [facility] [address] [id number] [place] [address] Jun, [facility] [place] [facility] [address] [id number] [place] [address] Jun, [facility] [place] [facility] [address] [id number] [place] [address] Jun, [facility] [place] [facility] [address] [id number] [place] [address] May, [facility] [place] [facility] [address] [id number] [place] [address] May, [facility] [place] [facility] [address] [id number] [place] [address] Apr, [facility] [place] [facility] [address] [id number] [place] [address] Apr, [facility] [place] [facility] [address] [id number] [place] [address] Mar, [facility] [place] [facility] [address] [id number] [place] [address] Mar, [facility] [place] [facility] [address] [id number] [place] [address] Mar, [facility] [place] [facility] [address] [id number] [place] [address] 18 Mar, 2013 [facility] [place] [facility] [address] [id number] [address] Mar, [facility] [place] [facility] [address] [id number] [place] [address] Mar, [facility] [place] [facility] [address] [id number] [place] [address] Mar, [facility] [place] [facility] [address] [id number] [place] [address] Feb, [facility] [place] [facility] [address] [id number] [place] [address] Feb, [facility] [place] [facility] [address] [id number] [place] [address] Feb, [facility] [place] [facility] [address] [id number] [place] [address] Feb, [facility] [place] [facility] [address] [id number] [place] [address] Feb, [facility] [place] [facility] [address] [id number] [place] [address] Feb, [facility] [place] [facility] [address] [id number] [place] [address] 26 Dec, 2012 [facility] [place] [facility] [address] [id number] [place] [address] 18 Dec, 2012 [facility] [place] [facility] [address] [id number] [address] 13 Dec, 2012 [facility] [place] [facility] [address] [id number] [place] [address] 13 Dec, 2012 [facility] [place] [facility] [address] [id number] [place] [address] 06 Dec, 2012 [facility] [place] [facility] [address] [id number] [place] [address] 30 Nov, 2012 [facility] [place] [facility] [address] [id number] [place] [address] Nov, [facility] [place] [facility] [address] [id number] [place] [address] Oct, [facility] [address] [id number] [place] [address] August, [facility] [address] [id number] [place] [address] August, [facility] [address] [id number] [place] [address] August, [facility] [address] [id number] [place] [address] Jul, [facility] [address] [id number] [place] [address] Jul, [facility] [address] [id number] [place] [address] Jul, [facility] [address] [id number] [place] [address] Jun, [facility] [address] [id number] [place] [address] Jun, [facility] [address] [id number] [place] [address] Jun, [facility] [address] [id number] [place] [address] Jun, [facility] [address] [id number] [place] [address] Jun, [facility] [address] [id number] [place] [address] 15 Jun, 2012 [facility] [address] [id number] [place] [address] 12 Jun, 2012 [facility] [address] [id number] [place] [address] 18 May, 2012 [facility] [address] [id number] [place] [address] May, [facility] [place] [facility] [address] [id number] [place] [address] May, [facility] [place] [facility] [address] [id number] [place] [address] May, [facility] [place] [facility] [address] [id number] [place] [address] Apr, [facility] [place] [facility] [address] [id number] [place] [address] Apr, [facility] [place] [facility] [address] [id number] [place] [address] Apr, [facility] [place] [facility] [address] [id number] [place] [address] Mar, [facility] [place] [facility] [address] [id number] [place] [address] Mar, [facility] [place] [facility] [address] [id number] [place] [address] Mar, [facility] [place] [facility] [address] [id number] [place] [address] Mar, [facility] [place] [facility] [address] [id number] [place] [address] Mar, [facility] [place] [facility] [address] [id number] [place] [address] Mar, [facility] [place] [facility] [address] [id number] [place] [address] Mar, [facility] [place] [facility] [address] [id number] [place] [address] Mar, [facility] [place] [facility] [address] [id number] [place] [address] Feb, [facility] [place] [facility] [address] [id number] [place] [address] Feb, [facility] [place] [facility] [address] [id number] [place] [address] Feb, [facility] [place] [facility] [address] [id number] [place] [address] Jan, [facility] [place] [facility] [address] [id number] [place] [address] Jan, [facility] [place] [facility] [address] [id number] [place] [address] Jan, [facility] [place] [facility] [address] [id number] [place] [address] Jan, [facility] [place] [facility] [address] [id number] [place] [address] Jan, [facility] [place] [facility] [address] [id number] [place] [address] Jan, [facility] [place] [facility] [address] [id number] [place] [address] Jan, [facility] [place] [facility] [address] [id number] [place] [address] Dec, [facility] [place] [facility] [address] [id number] [place] [address] 24 Dec, 2011 [facility] [place] [facility] [address] [id number] [place] [address] Dec, [facility] [place] [facility] [address] [id number] [place] [address] 30 Nov, 2011 [facility] [place] [facility] [address] [id number] [place] [address] Nov, [facility] [place] [facility] [address] [id number] [place] [address] Nov, [facility] [place] [facility] [address] [id number] [place] [address] Nov, [facility] [place] [facility] [address] [id number] [place] [address] Oct, [facility] [place] [facility] [address] [id number] [place] [address] 05 Oct, 2011 [facility] [place] [facility] [address] [id number] [place] [address] Oct, [facility] [place] [facility] [address] [id number] [place] [address] Sep, [facility] [place] [facility] [address] [id number] [place] [address] Sep, [facility] [address] [id number] [place] [address] Sep, [facility] [place] [facility] [address] [id number] [place] [address] Sep, [facility] [address] [id number] [place] [address] Sep, [facility] [address] [id number] [place] [address] Sep, [facility] [place] [facility] [address] [id number] [place] [address] August, [facility] [place] [facility] [address] [id number] [place] [address] Jul, [facility] [place] [facility] [address] [id number] [place] [address] Jul, [facility] [place] [facility] [address] [id number] [place] [address] Jul, [facility] [place] [facility] [address] [id number] [place] [address] Jul, [facility] [place] [facility] [address] [id number] [place] [address] Jul, [facility] [place] [facility] [address] [id number] [place] [address] Jun, [facility] [place] [facility] [address] [id number] [place] [address] Jun, [facility] [address] [id number] [place] [address] Jun, [facility] [place] [facility] [address] [id number] [place] [address] 15 Jun, 2011 [facility] [address] [facility] [id number] [place] [address] Jun, [facility] [place] [facility] [address] [id number] [place] [address] May, [facility] [place] [facility] [address] [id number] [place] [address] May, [facility] [place] [facility] [address] [id number] [place] [address] May, [facility] [address] [facility] [id number] [place] [address] May, [facility] [place] [facility] [address] [id number] [place] [address] May, [facility] [place] [facility] [address] [id number] [place] [address] May, [facility] [place] [facility] [address] [facility] [id number] [place] [address] May, [facility] [place] [facility] [address] [facility] [id number] [place] [address] Apr, [facility] [place] [facility] [address] [id number] [place] [address] Mar, [facility] [place] [facility] [address] [id number] [place] [address] Mar, [facility] [place] [facility] [address] [facility] [id number] [place] [address] Mar, [facility] [place] [facility] [address] [facility] [id number] [place] [address] Mar, [facility] [place] [facility] [address] [id number] [place] [address] 08 Mar, 2011 [facility] [place] [facility] [address] [id number] [place] [address] Feb, [facility] [place] [facility] [address] [id number] [place] [address] Feb, [facility] [place] [facility] [address] [id number] [place] [address] Feb, [facility] [place] [facility] [address] [id number] [place] [address] Feb, [facility] [place] [facility] [address] [id number] [place] [address] Feb, [facility] [place] [facility] [address] [id number] [place] [address] Feb, [facility] [place] [facility] [address] [id number] [place] [address] Feb, [facility] [place] [facility] [address] [id number] [place] [address] Jan, [facility] [place] [facility] [address] [id number] [place] [address] Dec, [facility] [place] [facility] [address] [id number] [place] [address] Oct, [facility] [place] [facility] [address] [id number] [place] [address] Jun, [facility] [place] [facility] [address] [id number] [place] [address] Mar, [facility] [place] [facility] [address] [id number] [place] [address] Mar, [facility] [place] [facility] [address] [id number] [place] [address] 16 Mar, 2010 [facility] [place] [facility] [address] [id number] [place] [address] 16 Mar, 2010 [facility] [place] [facility] [address] [id number] [place] [address] 15 Mar, 2010 [facility] [place] [facility] [address] [id number] [place] [address] 10 Mar, 2010 [facility] [place] [facility] [address] [id number] [place] [address] 10 Mar, 2010 [facility] [place] [facility] [address] [id number] [place] [address] 05 Mar, 2010 [facility] [place] [facility] [address] [id number] [place] [address] 03 Mar, 2010 [facility] [place] [facility] [address] [id number] [place] [address] 02 Mar, 2010 [facility] [place] [facility] [address] [id number] [place] [address] Jan, [facility] [place] [facility] [address] [id number] [place] [address] Jan, [facility] [place] [facility] [address] [id number] [place] [address] Jan, [facility] [place] [facility] [address] [id number] [place] [address] Nov, [facility] [place] [facility] [address] [id number] [address] Oct, [facility] [place] [facility] [address] [id number] [place] [address] 31 Mar, 2009 [facility] [place] [facility] [address] [id number] [place] [address] 20 Mar, 2009 [facility] [place] [facility] [address] [id number] [place] [address] 17 Mar, 2009 [facility] [place] [facility] [address] [id number] [place] [address] 17 Mar, 2009 [facility] [place] [facility] [address] [facility] [id number] [place] [address] 17 Dec, 2008 [facility] [address] [id number] [address] August, [facility] [address] [id number] [address] August, [facility] [address] [id number] [address] Jul, [facility] [address] [id number] [address] Jan, [facility] [address] [id number] [address] Jan, IMMUNIZATIONS No Known Immunizations SOCIAL HISTORY [...]
--- OUTSIDE RECORDS SUMMARY | 2018-09-22 02:34 | XMS REPORT ---
Author Author Migration, Doctor Organization [facility] Address Unknown Phone Unavailable Care Team Providers Care Watershed Coordinator Name Role Phone Migration, Doctor Unavailable Unavailable PROBLEMS Type Condition ICD9-CM Code AVK19-UK Code Onset Dates Condition Status SNOMED Code Problem Osteoporosis M81.0 Active 44743750 Problem Fibromyalgia M79.7 Active 29341183 Problem Unspecified abdominal pain R10.9 Active 131957759 Problem Chronic tension-type headache, not intractable G44.229 Active 011339029 Problem Chronic pain syndrome G89.4 Active 095317898 Problem Hypothyroidism, unspecified hypothyroidism type E03.9 Active 17955534 Problem Pancytopenia D61.818 Active 518188988 Problem Right sided sciatica M54.31 Active 47926520 Problem RUQ abdominal pain R10.11 Active 876935551 Problem Vitamin D deficiency E55.9 Active 20442582 Problem Chronic gastritis without bleeding, unspecified gastritis type K29.50 Active 3589548 Problem Vaginal atrophy N95.2 Active 239223407 Problem Hot flashes N95.1 Active 548788698 Problem Primary insomnia F51.01 Active 7249657 Problem Major depression, recurrent F33.9 Active 96203431 Problem Plantar fasciitis M72.2 Active 332835259 Problem Low back pain M54.5 Active 636813120 Problem Trigger point with back pain M54.9 Active 996843125 Problem Polyneuropathy associated with underlying disease G63 Active 727162105 Problem Drug induced constipation K59.03 Active 700234197984748 Problem Chronic prescription opiate use Z79.891 Active 286759016 Problem Porokeratosis Q82.8 Active 530588766 Problem Leukopenia, unspecified type D72.819 Active 18762608 Problem Allergic rhinitis, unspecified allergic rhinitis type J30.9 Active 08646794 Problem Pure hypercholesterolemia E78.00 Active 424919282 Problem Chronic obstructive pulmonary disease, unspecified COPD type J44.9 Active 84720098 Problem History of hepatitis C Z86.19 Active 24893330151392 Problem Other constipation K59.09 Active 518733917 Problem Allergy to intravenous contrast Z91.041 Active 193339133 Problem 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 Active 111979970 Problem Atrial fibrillation, unspecified type I48.91 Active 06059507 ALLERGIES No Information ENCOUNTERS Encounter Location Date Diagnosis [facility] [id number] [place] [address] Jun, Chronic pain syndrome G89.4 [facility] [id number] [place] [address] Jun, Acute bronchitis, unspecified organism J20.9 [place] [id number] [place] [address] Jun, Hypothyroidism, unspecified hypothyroidism type E03.9 [facility] [id number] [place] [address] Jun, Chronic obstructive pulmonary disease, unspecified COPD type J44.9 ; Chronic pain syndrome G89.4 ; Hypothyroidism, unspecified hypothyroidism type E03.9 ; Allergic rhinitis, unspecified allergic rhinitis type J30.9 and Osteoporosis M81.0 [facility] [id number] [place] [address] Jun, [facility] [id number] [place] [address] May, Influenza A J10.1 [facility] [id number] [place] [address] May, Chronic pain syndrome G89.4 [facility] [id number] [place] [address] Apr, Chronic pain syndrome G89.4 [facility] [id number] [place] [address] Apr, Acute maxillary sinusitis J01.00 and Sore throat J02.9 [place] [id number] [place] [address] Apr, Chronic pain syndrome G89.4 [facility] [id number] [place] [address] Mar, Trochanteric bursitis of both hips M70.61 [place] [address] [address] Mar, Chronic pain syndrome G89.4 [facility] [address] [address] Feb, Sore throat and laryngitis J06.0 ; Acute streptococcal pharyngitis J02.0 ; Dog scratch W54.8XXA and Cellulitis L03.90 [place] [address] [address] Feb, Acute maxillary sinusitis J01.[address] [address] Feb, Hypothyroidism, unspecified hypothyroidism type E03.9 [place] [address] [address] Feb, Chronic pain syndrome G89.4 [place] [address] [address] Jan, Fibromyalgia M79.7 ; Chronic pain syndrome G89.4 ; Low back pain M54.5 ; Hypothyroidism, unspecified hypothyroidism type E03.9 ; Leukopenia, unspecified type D72.819 ; Pure hypercholesterolemia E78.00 ; Right upper quadrant pain R10.11 ; Encounter for immunization Z23 ; Chronic gastritis without bleeding, unspecified gastritis type K29.50 ; Chronic prescription opiate use Z79.891 and BMI 28.0-28.9,adult Z68.28 [place] [address] [address] Jan, Chronic pain syndrome G89.4 [place] [address] [address] Dec, Chronic pain syndrome G89.4 [facility] [place] [id number] [place] [address] Nov, Onychocryptosis L60.0 [place] [id number] [place] [address] Nov, Chronic pain syndrome G89.4 [facility] [id number] [place] [address] Nov, Trochanteric bursitis of both hips M70.61 [facility] [id number] [place] [address] Oct, Hypothyroidism, unspecified hypothyroidism type E03.9 and Atrial fibrillation, unspecified type I48.91 [facility] [place] [id number] [place] [address] Oct, Fibromyalgia M79.7 ; Chronic pain syndrome G89.4 ; Hypothyroidism, unspecified hypothyroidism type E03.9 ; Overweight (BMI 25.0-29.9) E66.3 and Atrial fibrillation, unspecified type I48.91 [facility] [id number] [place] [address] Oct, Chronic pain syndrome G89.4 [facility] [id number] [place] [address] Sep, Chronic pain syndrome G89.4 [facility] [place] [id number] [place] [address] August, Somatic dysfunction of lumbar region M99.03 and Somatic dysfunction of pelvis region M99.05 [facility] [id number] [place] [address] August, Chronic pain syndrome G89.4 [facility] [id number] [place] [address] Jul, Trochanteric bursitis of left hip M70.62 and Trochanteric bursitis, right hip M70.61 [facility] [id number] [place] [address] Jul, [facility] [id number] [place] [address] Jul, Chronic pain syndrome G89.4 [facility] [id number] [place] [address] Jul, Hypothyroidism, unspecified hypothyroidism type E03.9 [facility] [id number] [place] [address] Jul, Hypothyroidism, unspecified hypothyroidism type E03.9 [facility] [id number] [place] [address] Jul, Chronic tension-type headache, not intractable G44.229 ; Atrial fibrillation, unspecified type I48.91 ; Chronic pain syndrome G89.4 ; Hypothyroidism, unspecified hypothyroidism type E03.9 ; Pancytopenia D61.818 ; History of hepatitis C Z86.19 ; Vaginal atrophy N95.2 ; RUQ abdominal pain R10.11 ; Chronic prescription opiate use Z79.891 ; Osteoporosis M81.0 and Screening for breast cancer Z12.31 [place] [id number] [place] [address] Jun, [facility] [id number] [place] [address] May, [facility] [id number] [place] [address] May, [facility] [id number] [place] [address] May, [facility] [id number] [place] [address] Apr, [facility] [id number] [place] [address] Apr, Hypothyroidism, unspecified hypothyroidism type E03.9 [facility] [id number] [place] [address] Apr, Hypothyroidism, unspecified hypothyroidism type E03.9 and Leukopenia, unspecified type D72.819 [place] [id number] [place] [address] Mar, [facility] [id number] [place] [address] Mar, Leukopenia, unspecified type D72.819 [place] [address] [address] Mar, Hypothyroidism, unspecified hypothyroidism type E03.9 and Low hemoglobin D64.9 [place] [address] [address] Mar, Hypothyroidism, unspecified hypothyroidism type E03.9 [facility] [place] [id number] [place] [address] Mar, Osteoporosis M81.0 ; Low hemoglobin D64.9 and Hypothyroidism, unspecified hypothyroidism type E03.9 [facility] [id number] [place] [address] Mar, Hypothyroidism, unspecified hypothyroidism type E03.9 ; Bilirubin in urine R82.2 and Pancytopenia D61.818 [place] [id number] [place] [address] 30 Feb, [address] [facility] [id number] [place] [address] 18 Feb, 2017 Cough R05 and Bronchitis J40 [facility] [id number] [place] [address] 14 Feb, 2017 Other viral agents as the cause of diseases classified elsewhere B97.89 and Acute upper respiratory infection, unspecified J06.9 [id number] [place] [address] 08 Feb, 2017 Fibromyalgia M79.7 ; Chronic pain syndrome G89.4 ; Hypothyroidism, unspecified hypothyroidism type E03.9 ; Primary insomnia F51.01 ; Osteoporosis M81.0 ; Vision abnormalities H53.9 ; Pancytopenia D61.818 ; BMI 28.0-28.9,adult Z68.28 and Encounter for immunization Z23 [place] [id number] [place] [address] Feb, Neuroma D36.10 and Capsulitis of right foot M77.[address] [address] Feb, [place] [address] [address] Feb, Hypothyroidism, unspecified hypothyroidism type E03.9 [place] [address] [address] Jan, [place] [address] [address] Jan, Atrial fibrillation, unspecified type I48.91 [place] [address] [address] Jan, [address] [address] Jan, Fibromyalgia M79.7 ; Atrial fibrillation, unspecified type I48.91 ; Pain of left hand M79.642 ; Pain in right hand M79.641 ; Chronic prescription opiate use Z79.891 ; Chronic pain syndrome G89.4 ; Elevated fasting glucose R73.01 and Hypothyroidism, unspecified hypothyroidism type E03.9 [place] [id number] [place] [address] Jan, [place] [address] [address] Dec, Trochanteric bursitis of both hips M70.61 [address] [id number] [place] [address] Dec, [place] [address] [address] Dec, [facility] [id number] [place] [address] Nov, [place] [address] [address] Nov, Unilateral headache R51 [address] [address] [address] Nov, [place] [address] [address] Oct, Unilateral headache R51 ; 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 and Allergy to intravenous contrast Z91.041 [address] [address] [address] Oct, [place] [address] [address] Oct, [place] [address] [address] Sep, Hypothyroidism, unspecified hypothyroidism type E03.[address] [address] Sep, Hypothyroidism, unspecified hypothyroidism type E03.9 and Bilirubin in urine R82.2 [address] [id number] [place] [address] Sep, Trochanteric bursitis of both hips M70.61 [place] [address] [address] Sep, Hypothyroidism, unspecified hypothyroidism type E03.9 ; Dysuria R30.0 ; Chronic tension-type headache, not intractable G44.229 and Drug induced constipation K59.03 [place] [id number] [place] [address] Sep, [place] [address] [address] Sep, [facility] [id number] [place] [address] August, [facility] [id number] [place] [address] Jul, [facility] [id number] [place] [address] Jul, Trochanteric bursitis of right hip M70.61 [facility] [id number] [place] [address] Jul, Hypothyroidism, unspecified hypothyroidism type E03.9 [facility] [id number] [place] [address] Jul, Fibromyalgia M79.7 ; Chronic pain syndrome G89.4 ; Hypothyroidism, unspecified hypothyroidism type E03.9 and Other constipation K59.09 [facility] [id number] [place] [address] Jun, Swollen tonsil J35.1 and Strep throat J02.0 [facility] [id number] [place] [address] Jun, [facility] [id number] [place] [address] Jun, Acute maxillary sinusitis J01.00 [facility] [id number] [place] [address] Jun, Hypothyroidism, unspecified hypothyroidism type E03.9 [facility] [id number] [place] [address] Jun, Chronic pain syndrome G89.4 ; Fibromyalgia M79.7 ; Hypothyroidism, unspecified hypothyroidism type E03.9 and Chronic prescription opiate use Z79.891 [facility] [id number] [place] [address] 10 May, 2016 [facility] [id number] [place] [address] Apr, Hypothyroidism, unspecified hypothyroidism type E03.9 [facility] [id number] [place] [address] Apr, [facility] [id number] [place] [address] Apr, Lipid screening Z13.220 and Hypothyroidism, unspecified hypothyroidism type E03.9 [place] [address] [address] Apr, [place] [address] [address] Mar, Trochanteric bursitis of both hips M70.61 [place] [address] [address] Mar, [place] [address] [address] Mar, Plantar fasciitis M72.2 and Porokeratosis Q82.8 [place] [id number] [place] [address] Feb, Lipid screening Z13.220 ; Vitamin D deficiency E55.9 and Hypothyroidism, unspecified hypothyroidism type E03.9 [place] [id number] [place] [address] 16 Feb, 2016 Chronic pain syndrome G89.4 ; Hypothyroidism, unspecified hypothyroidism type E03.9 ; Pancytopenia D61.818 ; Vaginal atrophy N95.2 ; Chronic gastritis without bleeding, unspecified gastritis type K29.50 ; Vitamin D deficiency E55.9 ; Chronic prescription opiate use Z79.891 ; Adverse effect of other opioids, initial encounter T40.2X5A ; Drug induced constipation K59.03 ; Lipid screening Z13.220 and Encounter for immunization Z23 [place] [id number] [place] [address] 04 Feb, 2016 [place] [address] [address] Feb, Ingrown toenail L60.0 [facility] [address] [address] Jan, [facility] [address] [address] Jan, Trochanteric bursitis of both hips M70.61 [facility] [id number] [place] [address] Jan, [facility] [id number] [place] [address] Jan, [facility] [id number] [place] [address] Jan, [facility] [id number] [place] [address] Jan, Right sided sciatica M54.31 [facility] [id number] [place] [address] Dec, Onychomycosis B35.1 [facility] [id number] [place] [address] Dec, [facility] [address] [address] Dec, [facility] [address] [place] [address] Dec, [facility] [address] [place] [address] Dec, Osteoarthritis of right hip, unspecified osteoarthritis type M16.11 and Bursitis of right hip M70.71 [facility] [address] [place] [address] Nov, [facility] [address] [place] [address] Nov, [facility] [id number] [place] [address] 17 Nov, 2015 [facility] [id number] [place] [address] 16 Nov, 2015 Hypothyroidism, unspecified hypothyroidism type E03.9 ; Vitamin D deficiency E55.9 and History of hepatitis C Z86.19 [facility] [id number] [place] [address] Nov, Right upper quadrant pain R10.11 ; History of hepatitis C Z86.19 and Low back pain M54.5 [facility] [id number] [place] [address] Oct, Trochanteric bursitis, right hip M70.61 [facility] [id number] [place] [address] Oct, [place] [id number] [place] [address] Oct, [facility] [id number] [place] [address] Oct, Trochanteric bursitis of both hips M70.61 and Right sided sciatica M54.31 [place] [id number] [place] [address] Oct, Trochanteric bursitis of both hips M70.61 [place] [id number] [place] [address] 14 Oct, 2015 RUQ abdominal pain R10.11 [place] [id number] [place] [address] 13 Oct, 2015 Sciatic leg pain M54.30 [facility] [id number] [place] [address] 11 Oct, 2015 RUQ abdominal pain R10.11 [facility] [id number] [place] [address] 07 Oct, 2015 RUQ abdominal pain R10.11 ; History of hepatitis C Z86.19 and Trigger point with back pain M54.9 [place] [id number] [place] [address] Sep, [facility] [id number] [place] [address] Sep, Right sided sciatica M54.31 [place] [id number] [place] [address] Sep, Hypothyroidism, unspecified hypothyroidism type E03.9 and Vitamin D deficiency E55.9 [place] [id number] [place] [address] Sep, Plantar fasciitis M72.2 and Porokeratosis Q82.8 [place] [id number] [place] [address] Sep, Hypothyroidism, unspecified hypothyroidism type E03.9 ; Chronic pain syndrome G89.4 ; Polyneuropathy associated with underlying disease G63 and Vitamin D deficiency E55.9 [place] [id number] [place] [address] August, [place] [id number] [place] [address] Jul, Plantar fasciitis M72.2 [place] [id number] [place] [address] Jul, Trochanteric bursitis, right hip M70.61 [place] [id number] [place] [address] Jul, Hypothyroidism, unspecified hypothyroidism type E03.9 [facility] [id number] [place] [address] Jul, Hypothyroidism, unspecified hypothyroidism type E03.9 ; Chronic pain syndrome G89.4 and Polyneuropathy associated with underlying disease G63 [place] [id number] [place] [address] Jun, Trochanteric bursitis of both hips M70.61 [place] [id number] [place] [address] Jun, Vitamin D deficiency E55.9 ; Osteoporosis M81.0 ; Low back pain M54.5 and Plantar fasciitis M72.2 [place] [id number] [place] [address] May, Vitamin D deficiency E55.9 and Hypothyroidism, unspecified hypothyroidism type E03.9 [place] [id number] [place] [address] May, Acute maxillary sinusitis J01.00 [place] [id number] [place] [address] May, Osteoporosis M81.0 and Hypothyroidism, unspecified hypothyroidism type E03.9 [place] [id number] [place] [id number] May, Osteoporosis M81.0 [place] [id number] [place] [id number] May, [place] [id number] [place] [id number] Apr, [place] [id number] [place] [phone] Apr, Trochanteric bursitis of both hips M70.61 [place] [id number] [place] [id number] Apr, Hypothyroidism, unspecified hypothyroidism type E03.9 [place] [id number] [place] [phone] Apr, Chronic pain syndrome G89.4 ; Bilateral low back pain with sciatica, sciatica laterality unspecified M54.40 ; Pain in right hip M25.551 ; Pain in left hip M25.552 ; Chronic prescription opiate use Z79.899 ; Primary insomnia F51.01 and Hypothyroidism, unspecified hypothyroidism type E03.9 [facility] [id number] [place] [id number] Mar, [facility] [id number] [place] [phone] Feb, [facility] [id number] [place] [id number] Feb, Chronic pain syndrome G89.4 and Major depression F32.9 [facility] [address] [address] Feb, Fatigue R53.83 [facility] [address] [id number] Feb, History of fracture Z87.81 [facility] [address] [phone] Feb, Major depression, recurrent F33.9 and Generalized anxiety disorder F41.1 [facility] [id number] [place] [phone] Feb, [facility] [id number] [place] [id number] Jan, Hypothyroidism, unspecified hypothyroidism type E03.9 [facility] [id number] [place] [phone] Jan, Abdominal pain R10.9 and Hypothyroidism, unspecified hypothyroidism type E03.9 [facility] [id number] [place] [id number] Jan, Abdominal pain R10.9 [facility] [facility] [id number] [place] [address] Jan, Hypothyroidism, unspecified hypothyroidism type E03.9 [facility] [id number] [place] [address] Jan, [facility] [address] [address] Jan, 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 and Hypothyroidism, unspecified hypothyroidism type E03.9 [place] [address] [address] Jan, 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 ; Abdominal pain R10.9 ; Dyspareunia N94.1 ; Encounter for immunization Z23 ; History of fracture Z87.81 ; Fatigue R53.83 ; Throat fullness R68.89 ; Bruises easily R23.8 ; Hot flashes N95.1 ; Depression F32.9 and Vaginal atrophy N95.2 [place] [address] [address] Jan, Hypothyroidism, unspecified hypothyroidism type E03.9 [place] [address] [address] Jan, Unspecified abdominal pain R10.9 ; Chronic obstructive pulmonary disease, unspecified COPD type J44.9 ; Allergic rhinitis, unspecified allergic rhinitis type J30.9 ; Chronic pain syndrome G89.4 ; Hypothyroidism, unspecified hypothyroidism type E03.9 ; Chest pain, unspecified chest pain type R07.9 and Plantar fasciitis M72.2 [place] [address] [address] Jan, Trochanteric bursitis of both hips M70.61 [place] [id number] [place] [address] Dec, [place] [address] [address] Nov, [place] [address] [address] Nov, [place] [address] [address] Nov, Constipation 564.00 [facility] [address] [facility] [id number] [address] 31 Oct, 2014 Chronic pain 338.29 and Hypothyroidism 244.9 [facility] [address] [id number] [address] 16 Oct, 2014 [facility] [id number] [address] Sep, [facility] [id number] [place] [address] Sep, [facility] [id number] [address] Sep, [facility] [id number] [place] [address] Sep, [facility] [id number] [place] [address] Sep, [facility] [id number] [address] Sep, [facility] [id number] [place] [address] Sep, COPD exacerbation 491.21 ; Chronic pain 338.29 ; Hypothyroidism 244.9 and Pancytopenia 284.19 [facility] [address], [place] [address] August, [facility] [id number] [address] Jul, [facility] [id number] [address] Jul, [facility] [id number] [address] Jun, [facility] [id number], [place] [address] Jun, [facility] [address] [id number] [address] Jun, [facility] [place] [facility] [address] [id number] [place] [address] Jun, [facility] [place] [facility] [address] [id number] [place] [address] Jun, [facility] [place] [facility] [address] [id number] [place] [address] May, 2014 [facility] [place] [facility] [address] [id number] [place] [address] May, 2014 [facility] [place] [facility] [address] [id number] [place] [address] May, 2014 [facility] [place] [facility] [address] [id number] [place] [address] May, 2014 [facility] [place] [facility] [address] [id number] [place] [address] May, 2014 [facility] [place] [facility] [address] [id number] [place] [address] May, 2014 [facility] [place] [facility] [address] [id number] [place] [address] May, 2014 [facility] [place] [facility] [address] [facility] [id number] [place] [address] May, 2014 [facility] [place] [facility] [address] [id number] [place] [address] May, 2014 [facility] [place] [facility] [address] [id number] [place] [address] May, 2014 [facility] [place] [facility] [address] [id number] [place] [address] May, 2014 [facility] [place] [facility] [address] [id number] [place] [address] May, 2014 [facility] [place] [facility] [address] [id number] [place] [address] May, [facility] [place] [facility] [address] [id number] [place] [address] Apr, [facility] [place] [facility] [address] [id number] [place] [address] Apr, [facility] [place] [facility] [address] [id number] [place] [address] Apr, [facility] [place] [facility] [address] [id number] [place] [address] Apr, [facility] [place] [facility] [address] [id number] [place] [address] Apr, [facility] [place] [facility] [address] [id number] [place] [address] Apr, [facility] [place] [facility] [address] [id number] [place] [address] Apr, [facility] [place] [facility] [address] [id number] [place] [address] Mar, [facility] [place] [facility] [address] [id number] [place] [address] Mar, [facility] [place] [facility] [address] [id number] [place] [address] Mar, [facility] [place] [facility] [address] [id number] [place] [address] Mar, [facility] [place] [facility] [address] [id number], [place] [address] Mar, [facility] [place] [facility] [address] [id number] [place] [address] Mar, [facility] [place] [facility] [address] [id number] [place] [address] Feb, [facility] [place] [facility] [address] [id number] [place] [address] Feb, [facility] [place] [facility] [address] [id number] [place] [address] Feb, [facility] [place] [facility] [address] [id number] [place] [address] Feb, [facility] [place] [facility] [address] [id number] [place] [address] Feb, [facility] [place] [facility] [address] [id number] [place] [address] Feb, [facility] [place] [facility] [address] [id number] [place] [address] Jan, [facility] [place] [facility] [address] [id number] [place] [address] Jan, [facility] [place] [facility] [address] [id number] [place] [address] Jan, [facility] [place] [facility] [address] [id number] [place] [address] Jan, [facility] [place] [facility] [address] [id number] [place] [address] Jan, [facility] [place] [facility] [address] [id number] [place] [address] Jan, [facility] [place] [facility] [address] [facility] [id number] [place] [address] Jan, [facility] [place] [facility] [address] [id number] [place] [address] Jan, [facility] [place] [facility] [address] [id number] [place] [address] Dec, [facility] [place] [facility] [address] [id number] [place] [address] Dec, [facility] [place] [facility] [address] [facility] [id number] [place] [address] Dec, [facility] [place] [facility] [address] [id number] [place] [address] Dec, [facility] [place] [facility] [address] [id number] [place] [address] Dec, [facility] [place] [facility] [address] [id number] [place] [address] Dec, [facility] [place] [facility] [address] [id number] [place] [address] Dec, [facility] [place] [facility] [address] [id number] [place] [address] Nov, [facility] [place] [facility] [address] [id number] [place] [address] Nov, [facility] [place] [facility] [address] [id number] [place] [address] Oct, [facility] [place] [facility] [address] [id number] [place] [address] Oct, [facility] [place] [facility] [address] [id number] [place] [address] Oct, [facility] [place] [facility] [address] [id number] [place] [address] Oct, [facility] [place] [facility] [address] [id number] [place] [address] Sep, [facility] [place] [facility] [address] [id number] [place] [address] Sep, [facility] [place] [facility] [address] [id number] [place] [address] Sep, [facility] [place] [facility] [address] [id number] [place] [address] Sep, [facility] [place] [facility] [address] [id number] [place] [address] Sep, [facility] [place] [facility] [address] [id number] [place] [address] Sep, [facility] [place] [facility] [address] [id number] [place] [address] Sep, [facility] [place] [facility] [address] [id number] [place] [address] Sep, [facility] [place] [facility] [address] [id number] [place] [address] August, [facility] [place] [facility] [address] [id number] [place] [address] August, [facility] [place] [facility] [address] [id number] [place] [address] August, [facility] [place] [facility] [address] [id number] [place] [address] August, [facility] [place] [facility] [address] [id number] [place] [address] Jul, [facility] [place] [facility] [address] [id number] [place] [address] Jul, [facility] [place] [facility] [address] [id number] [place] [address] Jul, [facility] [place] [facility] [address] [id number] [place] [address] Jul, [facility] [place] [facility] [address] [id number] [place] [address] Jul, [facility] [place] [facility] [address] [id number] [place] [address] 16 Jul, 2013 [facility] [place] [facility] [address] [id number] [place] [address] 15 Jul, 2013 [facility] [place] [facility] [address] [id number] [place] [address] Jul, [facility] [place] [facility] [address] [id number] [place] [address] Jun, [facility] [place] [facility] [address] [id number] [place] [address] Jun, [facility] [place] [facility] [address] [id number] [place] [address] Jun, [facility] [address] [id number] [place] [address] Jun, [facility] [place] [facility] [address] [id number] [place] [address] Jun, [facility] [address] [id number] [place] [address] Jun, [facility] [place] [facility] [address] [id number] [place] [address] Jun, [facility] [place] [facility] [address] [id number] [place] [address] Jun, [facility] [place] [facility] [address] [id number] [place] [address] May, [facility] [place] [facility] [address] [id number] [place] [address] May, [facility] [address] [id number] [place] [address] Apr, [facility] [address] [id number] [place] [address] Apr, [facility] [address] [id number] [place] [address] Mar, [facility] [place] [facility] [address] [id number] [place] [address] 24 Mar, 2013 [facility] [place] [facility] [address] [id number] [place] [address] Mar, [facility] [place] [facility] [address] [id number] [place] [address] Mar, [facility] [place] [facility] [address] [id number] [place] [address] Mar, [facility] [place] [facility] [address] [id number] [place] [address] Mar, [facility] [address] [id number] [place] [address] Mar, [facility] [place] [facility] [address] [id number] [place] [address] Feb, [facility] [place] [facility] [address] [id number] [place] [address] Feb, [facility] [place] [facility] [address] [id number] [place] [address] Feb, [facility] [place] [facility] [address] [id number] [place] [address] Feb, [facility] [place] [facility] [address] [id number] [place] [address] Feb, [facility] [place] [facility] [address] [id number] [place] [address] Feb, [facility] [place] [facility] [address] [id number] [place] [address] 26 Dec, 2012 [facility] [place] [facility] [address] [id number] [place] [address] 18 Dec, 2012 [facility] [place] [facility] [address] [id number] [place] [address] Dec, [facility] [place] [facility] [address] [id number] [place] [address] Dec, [facility] [place] [facility] [address] [id number], [place] [address] 06 Dec, 2012 [facility] [place] [facility] [address] [id number] [place] [address] Nov, [facility] [place] [facility] [address] [id number] [place] [address] Nov, [facility] [place] [facility] [address] [id number] [place] [address] Oct, [facility] [place] [facility] [address] [id number] [place] [address] August, [facility] [address] [id number] [place] [address] August, [facility] [address] [id number] [place] [address] August, [facility] [address] [id number] [place] [address] Jul, [facility] [place] [facility] [address] [id number] [place] [address] Jul, [facility] [address] [id number] [place] [address] Jul, [facility] [address] [id number] [place] [address] Jun, [facility] [address] [id number] [place] [address] Jun, [facility] [address] [id number] [place] [address] Jun, [facility] [address] [id number] [place] [address] Jun, [facility] [address] [facility] [id number] [place] [address] Jun, [facility] [address] [id number] [place] [address] 15 Jun, 2012 [facility] [place] [facility] [address] [id number] [place] [address] Jun, [facility] [place] [facility] [address] [id number] [place] [address] May, [facility] [place] [facility] [address] [id number] [place] [address] May, [facility] [address] [id number] [place] [address] May, [facility] [place] [facility] [address] [id number] [place] [address] 05 May, 2012 [facility] [place] [facility] [address] [id number] [place] [address] Apr, [facility] [place] [facility] [address] [id number] [place] [address] Apr, [facility] [place] [facility] [address] [id number] [place] [address] Apr, [facility] [address] [id number] [place] [address] Mar, [facility] [place] [facility] [address] [id number] [place] [address] Mar, [facility] [address] [id number] [place] [address] Mar, [facility] [address] [id number] [place] [address] Mar, [facility] [place] [facility] [address] [id number] [place] [address] Mar, [facility] [place] [facility] [address] [id number] [place] [address] Mar, [facility] [place] [facility] [address] [id number] [place] [address] Mar, [facility] [place] [facility] [address] [id number] [place] [address] Mar, [facility] [place] [facility] [address] [id number] [place] [address] Feb, [facility] [place] [facility] [address] [id number] [place] [address] Feb, [facility] [place] [facility] [address] [id number] [place] [address] Feb, [facility] [place] [facility] [address] [id number] [place] [address] Jan, [facility] [place] [facility] [address] [id number] [place] [address] Jan, [facility] [place] [facility] [address] [id number] [place] [address] Jan, [facility] [place] [facility] [address] [id number] [place] [address] Jan, [facility] [place] [facility] [address] [id number] [place] [address] Jan, [facility] [place] [facility] [address] [id number] [place] [address] Jan, [facility] [place] [facility] [address] [id number] [place] [address] Jan, [facility] [place] [facility] [address] [id number] [place] [address] Dec, [facility] [place] [facility] [address] [id number] [place] [address] Dec, [facility] [place] [facility] [address] [id number] [place] [address] Dec, [facility] [place] [facility] [address] [id number] [place] [address] Nov, [facility] [place] [facility] [address] [id number] [place] [address] Nov, [facility] [place] [facility] [address] [id number] [place] [address] Nov, [facility] [place] [facility] [address] [id number] [place] [address] Nov, [facility] [place] [facility] [address] [id number] [place] [address] Oct, [facility] [place] [facility] [address] [id number] [place] [address] Oct, [facility] [place] [facility] [address] [id number] [place] [address] 02 Oct, 2011 [facility] [place] [facility] [address] [id number] [place] [address] 18 Sep, 2011 [facility] [place] [facility] [address] [id number] [place] [address] 16 Sep, 2011 [facility] [place] [facility] [address] [id number] [place] [address] Sep, [facility] [place] [facility] [address] [id number] [place] [address] Sep, [facility] [place] [facility] [address] [id number] [place] [address] Sep, [facility] [place] [facility] [address] [id number] [place] [address] Sep, [facility] [place] [facility] [address] [id number] [place] [address] August, [facility] [place] [facility] [address] [id number] [place] [address] Jul, [facility] [place] [facility] [address] [id number] [place] [address] Jul, [facility] [place] [facility] [address] [id number] [place] [address] Jul, [facility] [place] [facility] [address] [id number] [place] [address] Jul, [facility] [place] [facility] [address] [id number] [place] [address] Jul, [facility] [place] [facility] [address] [id number] [place] [address] 29 Jun, 2011 [facility] [place] [facility] [address] [id number] [place] [address] Jun, [facility] [place] [facility] [address] [id number] [place] [address] 15 Jun, 2011 [facility] [address] [id number] [place] [address] 15 Jun, 2011 [facility] [place] [facility] [address] [id number] [place] [address] Jun, [facility] [place] [facility] [address] [id number] [place] [address] May, [facility] [place] [facility] [address] [id number] [place] [address] May, [facility] [place] [facility] [address] [id number] [place] [address] May, [facility] [place] [facility] [address] [id number] [place] [address] May, [facility] [place] [facility] [address] [id number] [place] [address] May, [facility] [place] [facility] [address] [id number] [place] [address] May, [facility] [place] [facility] [address] [id number] [place] [address] May, [facility] [place] [facility] [address] [id number] [place] [address] Apr, [facility] [place] [facility] [address] [id number] [place] [address] Mar, [facility] [place] [facility] [address] [id number] [place] [address] Mar, [facility] [place] [facility] [address] [id number] [place] [address] Mar, [facility] [place] [facility] [address] [id number] [place] [address] Mar, [facility] [place] [facility] [address] [id number] [place] [address] Mar, [facility] [place] [facility] [address] [id number] [place] [address] 23 Feb, 2011 [facility] [address] [id number] [place] [address] 14 Feb, 2011 [facility] [place] [facility] [address] [id number] [place] [address] 14 Feb, 2011 [facility] [address] [id number] [place] [address] 14 Feb, 2011 [facility] [place] [facility] [address] [id number] [place] [address] 07 Feb, 2011 [facility] [address] [id number] [place] [address] 04 Feb, 2011 [facility] [place] [facility] [address] [id number] [place] [address] 04 Feb, 2011 [facility] [address] [id number] [place] [address] 10 Jan, 2011 [facility] [address] [id number] [place] [address] 12 Dec, 2010 [facility] [place] [facility] [address] [id number] [place] [address] Oct, [facility] [address] [id number] [place] [address] 10 Jun, 2010 [facility] [address] [id number] [place] [address] 23 Mar, 2010 [facility] [place] [facility] [address] [id number] [place] [address] 23 Mar, 2010 [facility] [place] [facility] [address] [id number] [place] [address] 16 Mar, 2010 [facility] [place] [facility] [address] [id number] [place] [address] 16 Mar, 2010 [facility] [place] [facility] [address] [id number] [place] [address] 15 Mar, 2010 [facility] [address] [id number] [place] [address] 10 Mar, 2010 [facility] [place] [facility] [address] [id number] [place] [address] 10 Mar, 2010 [facility] [place] [facility] [address] [id number] [place] [address] 05 Mar, 2010 [facility] [place] [facility] [address] [id number] [place] [address] Mar, [facility] [place] [facility] [address] [id number] [place] [address] Mar, [facility] [place] [facility] [address] [id number] [place] [address] Jan, [facility] [place] [facility] [address] [id number] [place] [address] Jan, [facility] [place] [facility] [address] [id number] [place] [address] Jan, [facility] [place] [facility] [address] [id number] [place] [address] Nov, [facility] [place] [facility] [address] [id number] [place] [address] Oct, [facility] [place] [facility] [address] [id number] [place] [address] 31 Mar, 2009 [facility] [place] [facility] [address] [id number], [place] [address] 20 Mar, 2009 [facility] [place] [facility] [address] [id number] [place] [address] 17 Mar, 2009 [facility] [place] [facility] [address] [id number] [place] [address] Mar, [facility] [place] [facility] [address] [id number] [place] [address] 17 Dec, 2008 [facility] [place] [facility] [address] [id number], [place] [address] August, [facility] [address] [facility] [id number], [place] [address] August, [facility] [address] [facility] [id number], [place] [address] Jul, [facility] [address] [facility] [id number], [place] [address] Jan, [facility] [address] [facility] [id number], [place] [address] Jan, IMMUNIZATIONS No Known Immunizations SOCIAL HISTORY Never Assessed [place] [place] VITAL SIGNS MEDICATIONS Unknown [...]
--- OUTSIDE RECORDS SUMMARY | 2018-09-22 02:35 | XMS REPORT ---
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 Name Role Phone Migration, Doctor Unavailable Unavailable PROBLEMS Type Condition ICD9-CM Code UEE26-AD Code Onset Dates Condition Status SNOMED Code Problem Osteoporosis M81.0 Active 41744581 Problem Fibromyalgia M79.7 Active 08315244 Problem Unspecified abdominal pain R10.9 Active 890594613 Problem Chronic tension-type headache, not intractable G44.229 Active 873507901 Problem Chronic pain syndrome G89.4 Active 937494298 Problem Hypothyroidism, unspecified hypothyroidism type E03.9 Active 40925106 Problem Pancytopenia D61.818 Active 850869677 Problem Right sided sciatica M54.31 Active 74880255 Problem RUQ abdominal pain R10.11 Active 627880545 Problem Vitamin D deficiency E55.9 Active 75106284 Problem Chronic gastritis without bleeding, unspecified gastritis type K29.50 Active 1606191 Problem Vaginal atrophy N95.2 Active 163642003 Problem Hot flashes N95.1 Active 039226908 Problem Primary insomnia F51.01 Active 9364535 Problem Major depression, recurrent F33.9 Active 01271049 Problem Plantar fasciitis M72.2 Active 139222320 Problem Low back pain M54.5 Active 162489430 Problem Trigger point with back pain M54.9 Active 061551518 Problem Polyneuropathy associated with underlying disease G63 Active 673420945 Problem Drug induced constipation K59.03 Active 000618452120848 Problem Chronic prescription opiate use Z79.891 Active 061742045 Problem Porokeratosis Q82.8 Active 579499957 Problem Leukopenia, unspecified type D72.819 Active 74841246 Problem Allergic rhinitis, unspecified allergic rhinitis type J30.9 Active 19170853 Problem Pure hypercholesterolemia E78.00 Active 287605034 Problem Chronic obstructive pulmonary disease, unspecified COPD type J44.9 Active 98079443 Problem History of hepatitis C Z86.19 Active 01748235000550 Problem Other constipation K59.09 Active 332623483 Problem Allergy to intravenous contrast Z91.041 Active 310990753 Problem 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 Active 050151213 Problem Atrial fibrillation, unspecified type I48.91 Active 64063733 ALLERGIES No Information ENCOUNTERS Encounter Location Date Diagnosis [facility] [id number] [place] [address] Jun, Chronic pain syndrome G89.4 [facility] WALK IN [facility] [id number] [place] [address] Jun, Acute bronchitis, unspecified organism J20.9 [place] [id number] [place] [address] Jun, Hypothyroidism, unspecified hypothyroidism type E03.9 [facility] [facility] [id number] [place] [address] Jun, Chronic obstructive pulmonary disease, unspecified COPD type J44.9 ; Chronic pain syndrome G89.4 ; Hypothyroidism, unspecified hypothyroidism type E03.9 ; Allergic rhinitis, unspecified allergic rhinitis type J30.9 and Osteoporosis M81.0 [place] [id number] [place] [address] Jun, [facility] [id number] [place] [address] May, Influenza A J10.1 [place] [facility] [id number] [place] [address] May, Chronic pain syndrome G89.4 [place] [id number] [place] [address] Apr, Chronic pain syndrome G89.4 [facility] WALK IN [facility] [id number] [place] [address] Apr, Acute maxillary sinusitis J01.00 and Sore throat J02.9 [place] [id number] [place] [address] Apr, Chronic pain syndrome G89.4 [place] [id number] [place] [address] Mar, Trochanteric bursitis of both hips M70.61 [place] [address] [address] Mar, Chronic pain syndrome G89.4 [facility] WALK IN [facility] [address] [address] Feb, Sore throat and laryngitis J06.0 ; Acute streptococcal pharyngitis J02.0 ; Dog scratch W54.8XXA and Cellulitis L03.90 [place] [address] [address] Feb, Acute maxillary sinusitis J01.[address] [address] Feb, Hypothyroidism, unspecified hypothyroidism type E03.9 [place] [address] [address] Feb, Chronic pain syndrome G89.4 [place] [address] [address] Jan, Fibromyalgia M79.7 ; Chronic pain syndrome G89.4 ; Low back pain M54.5 ; Hypothyroidism, unspecified hypothyroidism type E03.9 ; Leukopenia, unspecified type D72.819 ; Pure hypercholesterolemia E78.00 ; Right upper quadrant pain R10.11 ; Encounter for immunization Z23 ; Chronic gastritis without bleeding, unspecified gastritis type K29.50 ; Chronic prescription opiate use Z79.891 and BMI 28.0-28.9,adult Z68.28 [place] [address] [address] Jan, Chronic pain syndrome G89.4 [place] [address] [address] Dec, Chronic pain syndrome G89.4 [facility] [id number] [place] [address] Nov, Onychocryptosis L60.0 [place] [id number] [place] [address] Nov, Chronic pain syndrome G89.4 [place] [id number] [place] [address] Nov, Trochanteric bursitis of both hips M70.61 [place] [id number] [place] [address] Oct, Hypothyroidism, unspecified hypothyroidism type E03.9 and Atrial fibrillation, unspecified type I48.91 [place] [id number] [place] [address] Oct, Fibromyalgia M79.7 ; Chronic pain syndrome G89.4 ; Hypothyroidism, unspecified hypothyroidism type E03.9 ; Overweight (BMI 25.0-29.9) E66.3 and Atrial fibrillation, unspecified type I48.91 [place] [id number] [place] [address] Oct, Chronic pain syndrome G89.4 [facility] [id number] [place] [address] Sep, Chronic pain syndrome G89.4 [place] [id number] [place] [address] August, Somatic dysfunction of lumbar region M99.03 and Somatic dysfunction of pelvis region M99.05 [facility] [facility] [id number] [place] [address] August, Chronic pain syndrome G89.4 [place] [id number] [place] [address] Jul, Trochanteric bursitis of left hip M70.62 and Trochanteric bursitis, right hip M70.61 [place] [id number] [place] [address] Jul, [facility] [id number] [place] [address] Jul, Chronic pain syndrome G89.4 [facility] [id number] [place] [address] Jul, Hypothyroidism, unspecified hypothyroidism type E03.9 [facility] [id number] [place] [address] Jul, Hypothyroidism, unspecified hypothyroidism type E03.9 [place] [id number] [place] [address] Jul, Chronic tension-type headache, not intractable G44.229 ; Atrial fibrillation, unspecified type I48.91 ; Chronic pain syndrome G89.4 ; Hypothyroidism, unspecified hypothyroidism type E03.9 ; Pancytopenia D61.818 ; History of hepatitis C Z86.19 ; Vaginal atrophy N95.2 ; RUQ abdominal pain R10.11 ; Chronic prescription opiate use Z79.891 ; Osteoporosis M81.0 and Screening for breast cancer Z12.31 [place] [id number] [place] [address] Jun, [place] [facility] [id number] [place] [address] May, [facility] [id number] [place] [address] May, [facility] [id number] [place] [address] May, [facility] [id number] [place] [address] Apr, [facility] [id number] [place] [address] Apr, Hypothyroidism, unspecified hypothyroidism type E03.9 [facility] [id number] [place] [address] Apr, Hypothyroidism, unspecified hypothyroidism type E03.9 and Leukopenia, unspecified type D72.819 [place] [id number] [place] [address] Mar, [facility] [id number] [place] [address] Mar, Leukopenia, unspecified type D72.819 [place] [address] [address] Mar, Hypothyroidism, unspecified hypothyroidism type E03.9 and Low hemoglobin D64.9 [place] [address] [address] Mar, Hypothyroidism, unspecified hypothyroidism type E03.9 [facility] [id number] [place] [address] Mar, Osteoporosis M81.0 ; Low hemoglobin D64.9 and Hypothyroidism, unspecified hypothyroidism type E03.9 [facility] [facility] [id number] [place] [address] Mar, Hypothyroidism, unspecified hypothyroidism type E03.9 ; Bilirubin in urine R82.2 and Pancytopenia D61.818 [place] [id number] [place] [address] 30 Feb, 2017 [facility] [place] [id number] [place] [address] 18 Feb, 2017 Cough R05 and Bronchitis J40 [facility] WALK [id number] [place] [address] 14 Feb, 2017 Other viral agents as the cause of diseases classified elsewhere B97.89 and Acute upper respiratory infection, unspecified J06.[address] [place] [address] 08 Feb, 2017 Fibromyalgia M79.7 ; Chronic pain syndrome G89.4 ; Hypothyroidism, unspecified hypothyroidism type E03.9 ; Primary insomnia F51.01 ; Osteoporosis M81.0 ; Vision abnormalities H53.9 ; Pancytopenia D61.818 ; BMI 28.0-28.9,adult Z68.28 and Encounter for immunization Z23 [place] [id number] [place] [address] Feb, Neuroma D36.10 and Capsulitis of right foot M77.[address] [address] Feb, [place] [address] [address] Feb, Hypothyroidism, unspecified hypothyroidism type E03.9 [place] [address] [address] Jan, [place] [address] [address] Jan, Atrial fibrillation, unspecified type I48.91 [place] [address] [address] Jan, [address] [address] Jan, Fibromyalgia M79.7 ; Atrial fibrillation, unspecified type I48.91 ; Pain of left hand M79.642 ; Pain in right hand M79.641 ; Chronic prescription opiate use Z79.891 ; Chronic pain syndrome G89.4 ; Elevated fasting glucose R73.01 and Hypothyroidism, unspecified hypothyroidism type E03.9 [place] [id number] [place] [address] Jan, [place] [address] [address] Dec, Trochanteric bursitis of both hips M70.61 [address] [id number] [place] [address] Dec, [place] [address] [address] Dec, [place] [id number] [place] [address] Nov, [place] [address] [address] Nov, Unilateral headache R51 [place] [address] [address] Nov, [place] [address] [address] Oct, Unilateral headache R51 ; 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9 ; Dysuria R30.0 ; Chronic tension-type headache, not intractable G44.229 and Drug induced constipation K59.03 [place] [id number] [place] [address] Sep, [place] [address] [address] Sep, [facility] [address] [place] [address] August, [facility] [id number] [place] [address] Jul, [facility] [id number] [place] [address] Jul, Trochanteric bursitis of right hip M70.61 [facility] [id number] [place] [address] Jul, Hypothyroidism, unspecified hypothyroidism type E03.9 [facility] [id number] [place] [address] Jul, Fibromyalgia M79.7 ; Chronic pain syndrome G89.4 ; Hypothyroidism, unspecified hypothyroidism type E03.9 and Other constipation K59.09 [facility] WALK IN [facility] [id number] [place] [address] Jun, Swollen tonsil J35.1 and Strep throat J02.0 [facility] [id number] [place] [address] Jun, [facility] [id number] [place] [address] Jun, Acute maxillary sinusitis J01.00 [facility] [id number] [place] [address] Jun, Hypothyroidism, unspecified hypothyroidism type E03.9 [facility] [id number] [place] [address] Jun, Chronic pain syndrome G89.4 ; Fibromyalgia M79.7 ; Hypothyroidism, unspecified hypothyroidism type E03.9 and Chronic prescription opiate use Z79.891 [facility] [id number] [place] [address] 10 May, 2016 [facility] [id number] [place] [address] Apr, Hypothyroidism, unspecified hypothyroidism type E03.9 [facility] [id number] [place] [address] Apr, [facility] [id number] [place] [address] Apr, Lipid screening Z13.220 and Hypothyroidism, unspecified hypothyroidism type E03.9 [place] [address] [address] Apr, [place] [address] [address] Mar, Trochanteric bursitis of both hips M70.61 [place] [address] [address] Mar, [place] [address] [address] Mar, Plantar fasciitis M72.2 and Porokeratosis Q82.8 [place] [id number] [place] [address] Feb, Lipid screening Z13.220 ; Vitamin D deficiency E55.9 and Hypothyroidism, unspecified hypothyroidism type E03.9 [place] [id number] [place] [address] 16 Feb, 2016 Chronic pain syndrome G89.4 ; Hypothyroidism, unspecified hypothyroidism type E03.9 ; Pancytopenia D61.818 ; Vaginal atrophy N95.2 ; Chronic gastritis without bleeding, unspecified gastritis type K29.50 ; Vitamin D deficiency E55.9 ; Chronic prescription opiate use Z79.891 ; Adverse effect of other opioids, initial encounter T40.2X5A ; Drug induced constipation K59.03 ; Lipid screening Z13.220 and Encounter for immunization Z23 [place] [id number] [place] [address] 04 Feb, 2016 [place] [address] [address] Feb, Ingrown toenail L60.0 [facility] [address] [address] Jan, [facility] [address] [address] Jan, Trochanteric bursitis of both hips M70.61 [facility] [id number] [place] [address] Jan, [facility] [address] [place] [address] Jan, [facility] [address] [place] [address] Jan, [facility] [address] [place] [address] Jan, Right sided sciatica M54.31 [facility] [address] [place] [address] Dec, Onychomycosis B35.1 [facility] [address] [place] [address] Dec, [facility] [address] [address] Dec, [facility] [address] [address] Dec, [facility] [address] [address] Dec, Osteoarthritis of right hip, unspecified osteoarthritis type M16.11 and Bursitis of right hip M70.71 [facility] [address] [address] Nov, [facility] [address] [address] Nov, [facility] [id number] [place] [address] 17 Nov, 2015 [facility] [id number] [place] [address] 16 Nov, 2015 Hypothyroidism, unspecified hypothyroidism type E03.9 ; Vitamin D deficiency E55.9 and History of hepatitis C Z86.19 [facility] [id number] [place] [address] Nov, Right upper quadrant pain R10.11 ; History of hepatitis C Z86.19 and Low back pain M54.5 [facility] [id number] [place] [address] Oct, Trochanteric bursitis, right hip M70.61 [facility] [id number] [place] [address] Oct, [place] [id number] [place] [address] Oct, [facility] [id number] [place] [address] Oct, Trochanteric bursitis of both hips M70.61 and Right sided sciatica M54.31 [place] [id number] [place] [address] Oct, Trochanteric bursitis of both hips M70.61 [place] [id number] [place] [address] 14 Oct, 2015 RUQ abdominal pain R10.11 [place] [id number] [place] [address] 13 Oct, 2015 Sciatic leg pain M54.30 [facility] [id number] [place] [address] 11 Oct, 2015 RUQ abdominal pain R10.11 [facility] [id number] [place] [address] 07 Oct, 2015 RUQ abdominal pain R10.11 ; History of hepatitis C Z86.19 and Trigger point with back pain M54.9 [place] [id number] [place] [address] Sep, [facility] [id number] [place] [address] Sep, Right sided sciatica M54.31 [place] [id number] [place] [address] Sep, Hypothyroidism, unspecified hypothyroidism type E03.9 and Vitamin D deficiency E55.9 [place] [id number] [place] [address] Sep, Plantar fasciitis M72.2 and Porokeratosis Q82.8 [place] [id number] [place] [address] Sep, Hypothyroidism, unspecified hypothyroidism type E03.9 ; Chronic pain syndrome G89.4 ; Polyneuropathy associated with underlying disease G63 and Vitamin D deficiency E55.9 [place] [id number] [place] [address] August, [place] [id number] [place] [address] Jul, Plantar fasciitis M72.2 [place] [id number] [place] [address] Jul, Trochanteric bursitis, right hip M70.61 [place] [id number] [place] [address] Jul, Hypothyroidism, unspecified hypothyroidism type E03.9 [facility] [id number] [place] [address] Jul, Hypothyroidism, unspecified hypothyroidism type E03.9 ; Chronic pain syndrome G89.4 and Polyneuropathy associated with underlying disease G63 [place] [id number] [place] [address] Jun, Trochanteric bursitis of both hips M70.61 [place] [id number] [place] [address] Jun, Vitamin D deficiency E55.9 ; Osteoporosis M81.0 ; Low back pain M54.5 and Plantar fasciitis M72.2 [place] [id number] [place] [address] May, Vitamin D deficiency E55.9 and Hypothyroidism, unspecified hypothyroidism type E03.9 [place] [id number] [place] [address] May, Acute maxillary sinusitis J01.00 [place] [id number] [place] [address] May, Osteoporosis M81.0 and Hypothyroidism, unspecified hypothyroidism type E03.9 [place] [id number] [place] [address] May, Osteoporosis M81.0 [place] [id number] [place] [address] May, [place] [id number] [place] [address] Apr, [place] [id number] [place] [address] Apr, Trochanteric bursitis of both hips M70.61 [place] [id number] [place] [address] Apr, Hypothyroidism, unspecified hypothyroidism type E03.9 [place] [id number] [place] [phone] Apr, Chronic pain syndrome G89.4 ; Bilateral low back pain with sciatica, sciatica laterality unspecified M54.40 ; Pain in right hip M25.551 ; Pain in left hip M25.552 ; Chronic prescription opiate use Z79.899 ; Primary insomnia F51.01 and Hypothyroidism, unspecified hypothyroidism type E03.9 [facility] [address] [place] [id number] [place] [id number] Mar, [facility] [address] [place] [id number] [place] [id number] Feb, [facility] [address] [place] [id number] [place] [id number] Feb, Chronic pain syndrome G89.4 and Major depression F32.9 [facility] [address] [id number] Feb, Fatigue R53.83 [facility] [address] [phone] Feb, History of fracture Z87.81 [facility] [address] [phone] Feb, Major depression, recurrent F33.9 and Generalized anxiety disorder F41.1 [facility] [address] [place] [id number] [place] [id number] Feb, [facility] [address] [place] [id number] [place] [phone] Jan, Hypothyroidism, unspecified hypothyroidism type E03.9 [facility] [address] [place] [id number] [place] [phone] Jan, Abdominal pain R10.9 and Hypothyroidism, unspecified hypothyroidism type E03.9 [facility] [address] [place] [id number] [place] [phone] Jan, Abdominal pain R10.9 [facility] [address] [place] [id number] [place] [id number] Jan, Hypothyroidism, unspecified hypothyroidism type E03.9 [facility] [address] [place] [id number] [place] [address] Jan, [facility] [address] [address] Jan, Encntr for application support exam (general) (routine) w/o 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 Z01.419 and Hypothyroidism, unspecified hypothyroidism type E03.9 [place] [address] [address] Jan, Encntr for application support exam (general) (routine) w/o 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 Z01.419 ; Abdominal pain R10.9 ; Dyspareunia N94.1 ; Encounter for immunization Z23 ; History of fracture Z87.81 ; Fatigue R53.83 ; Throat fullness R68.89 ; Bruises easily R23.8 ; Hot flashes N95.1 ; Depression F32.9 and Vaginal atrophy N95.2 [place] [address] [address] Jan, Hypothyroidism, unspecified hypothyroidism type E03.9 [place] [address] [address] Jan, Unspecified abdominal pain R10.9 ; Chronic obstructive pulmonary disease, unspecified COPD type J44.9 ; Allergic rhinitis, unspecified allergic rhinitis type J30.9 ; Chronic pain syndrome G89.4 ; Hypothyroidism, unspecified hypothyroidism type E03.9 ; Chest pain, unspecified chest pain type R07.9 and Plantar fasciitis M72.2 [place] [address] [address] Jan, Trochanteric bursitis of both hips M70.61 [place] [address] [place] [address] [id number] [place] [address] Dec, [place] [address] [address] Nov, [place] [address] [address] Nov, [place] [address] [address] Nov, Constipation 564.00 [facility] [address] [facility] [id number] [address] 31 Oct, 2014 Chronic pain 338.29 and Hypothyroidism 244.9 [facility] [address] [id number] [address] 16 Oct, 2014 [facility] [address] [address] Sep, [facility] [id number] [place] [address] Sep, [facility] [id number] [address] Sep, [facility] [id number] [place] [address] Sep, [facility] [id number] [place] [address] Sep, [facility] [address] [address] Sep, [facility] [id number] [place] [address] Sep, COPD exacerbation 491.21 ; Chronic pain 338.29 ; Hypothyroidism 244.9 and Pancytopenia 284.19 [facility] [address] [address] August, [facility] [address] [address] Jul, [facility] [address] [address] Jul, [facility] [id number] [address] Jun, [facility] [address] [address] Jun, [facility] [id number] [address] Jun, [facility] [place] [facility] [address] [id number] [place] [address] Jun, [facility] [place] [facility] [address] [id number] [place] [address] Jun, [facility] [place] [facility] [address] [id number] [place] [address] May, 2014 [facility] [place] [facility] [address] [id number] [place] [address] May, 2014 [facility] [place] [facility] [address] [id number] [place] [address] May, 2014 [facility] [place] [facility] [address] [id number] [place] [address] May, 2014 [facility] [place] [facility] [address] [id number] [place] [address] May, 2014 [facility] [place] [facility] [address] [id number] [place] [address] May, 2014 [facility] [place] [facility] [address] [id number] [place] [address] May, 2014 [facility] [place] [facility] [address] [facility] [id number] [place] [address] May, 2014 [facility] [place] [facility] [address] [id number] [place] [address] May, 2014 [facility] [place] [facility] [address] [id number] [place] [address] May, 2014 [facility] [place] [facility] [address] [id number] [place] [address] May, 2014 [facility] [place] [facility] [address] [id number] [place] [address] May, 2014 [facility] [place] [facility] [address] [id number] [place] [address] May, [facility] [place] [facility] [address] [id number] [place] [address] Apr, [facility] [place] [facility] [address] [id number] [place] [address] Apr, [facility] [place] [facility] [address] [id number] [place] [address] Apr, [facility] [place] [facility] [address] [id number] [place] [address] Apr, [facility] [place] [facility] [address] [id number] [place] [address] Apr, [facility] [place] [facility] [address] [id number] [place] [address] Apr, [facility] [place] [facility] [address] [id number] [place] [address] Apr, [facility] [place] [facility] [address] [id number] [place] [address] Mar, [facility] [place] [facility] [address] [id number] [place] [address] Mar, [facility] [place] [facility] [address] [id number] [place] [address] Mar, [facility] [place] [facility] [address] [id number] [place] [address] Mar, [facility] [place] [facility] [address] [id number] [address] Mar, [facility] [place] [facility] [address] [id number] [place] [address] Mar, [facility] [place] [facility] [address] [id number] [place] [address] Feb, [facility] [place] [facility] [address] [id number] [place] [address] Feb, [facility] [place] [facility] [address] [id number] [place] [address] Feb, [facility] [place] [facility] [address] [id number] [place] [address] Feb, [facility] [place] [facility] [address] [id number] [place] [address] Feb, [facility] [place] [facility] [address] [id number] [place] [address] Feb, [facility] [place] [facility] [address] [id number] [place] [address] Jan, [facility] [place] [facility] [address] [id number] [place] [address] Jan, [facility] [place] [facility] [address] [id number] [place] [address] Jan, [facility] [place] [facility] [address] [id number] [place] [address] Jan, [facility] [place] [facility] [address] [id number] [place] [address] Jan, [facility] [place] [facility] [address] [id number] [place] [address] Jan, [facility] [place] [facility] [address] [facility] [id number] [place] [address] Jan, [facility] [place] [facility] [address] [id number] [place] [address] Jan, [facility] [place] [facility] [address] [id number] [place] [address] Dec, [facility] [place] [facility] [address] [id number] [place] [address] Dec, [facility] [place] [facility] [address] [facility] [id number] [place] [address] Dec, [facility] [place] [facility] [address] [id number] [place] [address] Dec, [facility] [place] [facility] [address] [id number] [place] [address] Dec, [facility] [place] [facility] [address] [id number] [place] [address] Dec, [facility] [place] [facility] [address] [id number] [place] [address] Dec, [facility] [place] [facility] [address] [id number] [place] [address] Nov, [facility] [place] [facility] [address] [id number] [place] [address] Nov, [facility] [place] [facility] [address] [id number] [place] [address] Oct, [facility] [place] [facility] [address] [id number] [place] [address] Oct, [facility] [place] [facility] [address] [id number] [place] [address] Oct, [facility] [place] [facility] [address] [id number] [place] [address] Oct, [facility] [place] [facility] [address] [id number] [place] [address] Sep, [facility] [place] [facility] [address] [id number] [place] [address] Sep, [facility] [place] [facility] [address] [id number] [place] [address] Sep, [facility] [place] [facility] [address] [id number] [place] [address] Sep, [facility] [place] [facility] [address] [id number] [place] [address] Sep, [facility] [place] [facility] [address] [id number] [place] [address] Sep, [facility] [place] [facility] [address] [id number] [place] [address] Sep, [facility] [place] [facility] [address] [id number] [place] [address] Sep, [facility] [place] [facility] [address] [id number] [place] [address] August, [facility] [place] [facility] [address] [id number] [place] [address] August, [facility] [place] [facility] [address] [id number] [place] [address] August, [facility] [place] [facility] [address] [id number] [place] [address] August, [facility] [place] [facility] [address] [id number] [place] [address] Jul, [facility] [place] [facility] [address] [id number] [place] [address] Jul, [facility] [place] [facility] [address] [id number] [place] [address] Jul, [facility] [place] [facility] [address] [id number] [place] [address] Jul, [facility] [place] [facility] [address] [id number] [place] [address] Jul, [facility] [place] [facility] [address] [id number] [place] [address] 16 Jul, 2013 [facility] [place] [facility] [address] [id number] [place] [address] 15 Jul, 2013 [facility] [place] [facility] [address] [id number] [place] [address] Jul, [facility] [place] [facility] [address] [id number] [place] [address] Jun, [facility] [place] [facility] [address] [id number] [place] [address] Jun, [facility] [place] [facility] [address] [id number] [place] [address] Jun, [facility] [address] [id number] [place] [address] Jun, [facility] [place] [facility] [address] [id number] [place] [address] Jun, [facility] [address] [id number] [place] [address] Jun, [facility] [place] [facility] [address] [id number] [place] [address] Jun, [facility] [place] [facility] [address] [id number] [place] [address] Jun, [facility] [place] [facility] [address] [id number] [place] [address] May, [facility] [place] [facility] [address] [id number] [place] [address] May, [facility] [address] [id number] [place] [address] Apr, [facility] [address] [id number] [place] [address] Apr, [facility] [address] [id number] [place] [address] Mar, [facility] [place] [facility] [address] [id number] [place] [address] 24 Mar, 2013 [facility] [place] [facility] [address] [id number] [place] [address] Mar, [facility] [place] [facility] [address] [id number] [place] [address] Mar, [facility] [place] [facility] [address] [id number] [place] [address] Mar, [facility] [place] [facility] [address] [id number] [place] [address] Mar, [facility] [address] [id number] [place] [address] Mar, [facility] [place] [facility] [address] [id number] [place] [address] Feb, [facility] [place] [facility] [address] [id number] [place] [address] Feb, [facility] [place] [facility] [address] [id number] [place] [address] Feb, [facility] [place] [facility] [address] [id number] [place] [address] Feb, [facility] [place] [facility] [address] [id number] [place] [address] Feb, [facility] [place] [facility] [address] [id number] [place] [address] Feb, [facility] [place] [facility] [address] [id number] [place] [address] 26 Dec, 2012 [facility] [place] [facility] [address] [id number] [place] [address] 18 Dec, 2012 [facility] [place] [facility] [address] [id number] [place] [address] Dec, [facility] [place] [facility] [address] [id number] [place] [address] Dec, [facility] [place] [facility] [address] [id number] [address] 06 Dec, 2012 [facility] [place] [facility] [address] [id number] [place] [address] Nov, [facility] [place] [facility] [address] [id number] [place] [address] Nov, [facility] [place] [facility] [address] [id number] [place] [address] Oct, [facility] [place] [facility] [address] [id number] [place] [address] August, [facility] [address] [id number] [place] [address] August, [facility] [address] [id number] [place] [address] August, [facility] [address] [id number] [place] [address] Jul, [facility] [place] [facility] [address] [id number] [place] [address] Jul, [facility] [address] [id number] [place] [address] Jul, [facility] [address] [id number] [place] [address] Jun, [facility] [address] [id number] [place] [address] Jun, [facility] [address] [id number] [place] [address] Jun, [facility] [address] [id number] [place] [address] Jun, [facility] [address] [facility] [id number] [place] [address] Jun, [facility] [address] [id number] [place] [address] 15 Jun, 2012 [facility] [place] [facility] [address] [id number] [place] [address] Jun, [facility] [place] [facility] [address] [id number] [place] [address] May, [facility] [place] [facility] [address] [id number] [place] [address] May, [facility] [address] [id number] [place] [address] May, [facility] [place] [facility] [address] [id number] [place] [address] 05 May, 2012 [facility] [place] [facility] [address] [id number] [place] [address] Apr, [facility] [place] [facility] [address] [id number] [place] [address] Apr, [facility] [place] [facility] [address] [id number] [place] [address] Apr, [facility] [address] [id number] [place] [address] Mar, [facility] [place] [facility] [address] [id number] [place] [address] Mar, [facility] [address] [id number] [place] [address] Mar, [facility] [address] [id number] [place] [address] Mar, [facility] [place] [facility] [address] [id number] [place] [address] Mar, [facility] [place] [facility] [address] [id number] [place] [address] Mar, [facility] [place] [facility] [address] [id number] [place] [address] Mar, [facility] [place] [facility] [address] [id number] [place] [address] Mar, [facility] [place] [facility] [address] [id number] [place] [address] Feb, [facility] [place] [facility] [address] [id number] [place] [address] Feb, [facility] [place] [facility] [address] [id number] [place] [address] Feb, [facility] [place] [facility] [address] [id number] [place] [address] Jan, [facility] [place] [facility] [address] [id number] [place] [address] Jan, [facility] [place] [facility] [address] [id number] [place] [address] Jan, [facility] [place] [facility] [address] [id number] [place] [address] Jan, [facility] [place] [facility] [address] [id number] [place] [address] Jan, [facility] [place] [facility] [address] [id number] [place] [address] Jan, [facility] [place] [facility] [address] [id number] [place] [address] Jan, [facility] [place] [facility] [address] [id number] [place] [address] Dec, [facility] [place] [facility] [address] [id number] [place] [address] Dec, [facility] [place] [facility] [address] [id number] [place] [address] Dec, [facility] [place] [facility] [address] [id number] [place] [address] Nov, [facility] [place] [facility] [address] [id number] [place] [address] Nov, [facility] [place] [facility] [address] [id number] [place] [address] Nov, [facility] [place] [facility] [address] [id number] [place] [address] Nov, [facility] [place] [facility] [address] [id number] [place] [address] Oct, [facility] [place] [facility] [address] [id number] [place] [address] Oct, [facility] [place] [facility] [address] [id number] [place] [address] 02 Oct, 2011 [facility] [place] [facility] [address] [id number] [place] [address] 18 Sep, 2011 [facility] [place] [facility] [address] [id number] [place] [address] 16 Sep, 2011 [facility] [place] [facility] [address] [id number] [place] [address] Sep, [facility] [place] [facility] [address] [id number] [place] [address] Sep, [facility] [place] [facility] [address] [id number] [place] [address] Sep, [facility] [place] [facility] [address] [id number] [place] [address] Sep, [facility] [place] [facility] [address] [id number] [place] [address] August, [facility] [place] [facility] [address] [id number] [place] [address] Jul, [facility] [place] [facility] [address] [id number] [place] [address] Jul, [facility] [place] [facility] [address] [id number] [place] [address] Jul, [facility] [place] [facility] [address] [id number] [place] [address] Jul, [facility] [place] [facility] [address] [id number] [place] [address] Jul, [facility] [place] [facility] [address] [id number] [place] [address] 29 Jun, 2011 [facility] [place] [facility] [address] [id number] [place] [address] Jun, [facility] [place] [facility] [address] [id number] [place] [address] 15 Jun, 2011 [facility] [address] [id number] [place] [address] 15 Jun, 2011 [facility] [place] [facility] [address] [id number] [place] [address] Jun, [facility] [place] [facility] [address] [id number] [place] [address] May, [facility] [place] [facility] [address] [id number] [place] [address] May, [facility] [place] [facility] [address] [id number] [place] [address] May, [facility] [place] [facility] [address] [id number] [place] [address] May, [facility] [place] [facility] [address] [id number] [place] [address] May, [facility] [place] [facility] [address] [id number] [place] [address] May, [facility] [place] [facility] [address] [id number] [place] [address] May, [facility] [place] [facility] [address] [id number] [place] [address] Apr, [facility] [place] [facility] [address] [id number] [place] [address] Mar, [facility] [place] [facility] [address] [id number] [place] [address] Mar, [facility] [place] [facility] [address] [id number] [place] [address] Mar, [facility] [place] [facility] [address] [id number] [place] [address] Mar, [facility] [place] [facility] [address] [id number] [place] [address] Mar, [facility] [place] [facility] [address] [id number] [place] [address] 23 Feb, 2011 [facility] [address] [id number] [place] [address] 14 Feb, 2011 [facility] [place] [facility] [address] [id number] [place] [address] 14 Feb, 2011 [facility] [address] [id number] [place] [address] 14 Feb, 2011 [facility] [place] [facility] [address] [id number] [place] [address] 07 Feb, 2011 [facility] [address] [id number] [place] [address] 04 Feb, 2011 [facility] [place] [facility] [address] [id number] [place] [address] 04 Feb, 2011 [facility] [address] [id number] [place] [address] 10 Jan, 2011 [facility] [address] [id number] [place] [address] 12 Dec, 2010 [facility] [place] [facility] [address] [id number] [place] [address] Oct, [facility] [address] [id number] [place] [address] 10 Jun, 2010 [facility] [address] [id number] [place] [address] 23 Mar, 2010 [facility] [place] [facility] [address] [id number] [place] [address] 23 Mar, 2010 [facility] [place] [facility] [address] [id number] [place] [address] 16 Mar, 2010 [facility] [place] [facility] [address] [id number] [place] [address] 16 Mar, 2010 [facility] [place] [facility] [address] [id number] [place] [address] 15 Mar, 2010 [facility] [address] [id number] [place] [address] 10 Mar, 2010 [facility] [place] [facility] [address] [id number] [place] [address] 10 Mar, 2010 [facility] [place] [facility] [address] [id number] [place] [address] 05 Mar, 2010 [facility] [place] [facility] [address] [id number] [place] [address] Mar, [facility] [place] [facility] [address] [id number] [place] [address] Mar, [facility] [place] [facility] [address] [id number] [place] [address] Jan, [facility] [place] [facility] [address] [id number] [place] [address] Jan, [facility] [place] [facility] [address] [id number] [place] [address] Jan, [facility] [place] [facility] [address] [id number] [place] [address] Nov, [facility] [place] [facility] [address] [id number] [place] [address] Oct, [facility] [place] [facility] [address] [id number] [place] [address] 31 Mar, 2009 [facility] [place] [facility] [address] [id number], [place] [address] 20 Mar, 2009 [facility] [place] [facility] [address] [id number] [place] [address] 17 Mar, 2009 [facility] [place] [facility] [address] [id number] [place] [address] Mar, [facility] [place] [facility] [address] [id number] [place] [address] 17 Dec, 2008 [facility] [place] [facility] [address] [id number], [place] [address] August, [facility] [address] [facility] [id number], [place] [address] August, [facility] [address] [facility] [id number], [place] [address] Jul, [facility] [address] [facility] [id number], [place] [address] Jan, [facility] [address] [facility] [id number], [place] [address] Jan, IMMUNIZATIONS No Known Immunizations SOCIAL HISTORY Never Assessed [place] [place] VITAL SIGNS MEDICATIONS Unknown [...]
--- OUTSIDE RECORDS SUMMARY | 2018-09-22 02:36 | XMS REPORT ---
Author Author Migration, Doctor Organization [facility] Address Unknown Phone Unavailable Care Team Providers Care Pulmonologist Name Role Phone Migration, Doctor Unavailable Unavailable PROBLEMS Type Condition ICD9-CM Code [id number] Code Onset Dates Condition Status SNOMED Code Problem Osteoporosis M81.0 Active 71856799 Problem Fibromyalgia M79.7 Active 55004207 Problem Unspecified abdominal pain R10.9 Active 134861743 Problem Chronic tension-type headache, not intractable G44.229 Active 992799949 Problem Chronic pain syndrome G89.4 Active 132285435 Problem Hypothyroidism, unspecified hypothyroidism type E03.9 Active 30750621 Problem Pancytopenia D61.818 Active 029869495 Problem Right sided sciatica M54.31 Active 74321622 Problem RUQ abdominal pain R10.11 Active 991070496 Problem Vitamin D deficiency E55.9 Active 02583294 Problem Chronic gastritis without bleeding, unspecified gastritis type K29.50 Active 5811467 Problem Vaginal atrophy N95.2 Active 138016840 Problem Hot flashes N95.1 Active 632136113 Problem Primary insomnia F51.01 Active 5914157 Problem Major depression, recurrent F33.9 Active 16333591 Problem Plantar fasciitis M72.2 Active 774859471 Problem Low back pain M54.5 Active 474404607 Problem Trigger point with back pain M54.9 Active 760075537 Problem Polyneuropathy associated with underlying disease G63 Active 461373842 Problem Drug induced constipation K59.03 Active 512421820145646 Problem Chronic prescription opiate use Z79.891 Active 203085547 Problem Porokeratosis Q82.8 Active 953463108 Problem Leukopenia, unspecified type D72.819 Active 58106470 Problem Allergic rhinitis, unspecified allergic rhinitis type J30.9 Active 50458814 Problem Pure hypercholesterolemia E78.00 Active 415662457 Problem Chronic obstructive pulmonary disease, unspecified COPD type J44.9 Active 74411139 Problem History of hepatitis C Z86.19 Active 24473150951619 Problem Other constipation K59.09 Active 874229453 Problem Allergy to intravenous contrast Z91.041 Active 248160825 Problem 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 [id number] [place] [address] Jun, Acute bronchitis, unspecified organism J20.9 [facility] [id number] [place] [address] Jun, Hypothyroidism, unspecified hypothyroidism type E03.9 [facility] [id number] [place] [address] Jun, Chronic obstructive pulmonary disease, unspecified COPD type J44.9 ; Chronic pain syndrome G89.4 ; Hypothyroidism, unspecified hypothyroidism type E03.9 ; Allergic rhinitis, unspecified allergic rhinitis type J30.9 and Osteoporosis M81.0 [facility] [facility] [id number] [place] [address] Jun, [facility] [id number] [place] [address] May, Influenza A J10.1 [facility] [facility] [id number] [place] [address] May, Chronic pain syndrome G89.4 [facility] [facility] [id number] [place] [address] Apr, Chronic pain syndrome G89.4 [facility] [id number] [place] [address] Apr, Acute maxillary sinusitis J01.00 and Sore throat J02.9 [place] [id number] [place] [address] Apr, Chronic pain syndrome G89.4 [facility] [facility] [id number] [place] [address] Mar, Trochanteric bursitis of both hips M70.61 [place] [address] [address] Mar, Chronic pain syndrome G89.4 [facility] [address] [address] Feb, Sore throat and laryngitis J06.0 ; Acute streptococcal pharyngitis J02.0 ; Dog scratch W54.8XXA and Cellulitis L03.90 [place] [address] [address] Feb, Acute maxillary sinusitis J01.[address] [address] Feb, Hypothyroidism, unspecified hypothyroidism type E03.9 [place] [address] [address] Feb, Chronic pain syndrome G89.4 [place] [address] [address] Jan, Fibromyalgia M79.7 ; Chronic pain syndrome G89.4 ; Low back pain M54.5 ; Hypothyroidism, unspecified hypothyroidism type E03.9 ; Leukopenia, unspecified type D72.819 ; Pure hypercholesterolemia E78.00 ; Right upper quadrant pain R10.11 ; Encounter for immunization Z23 ; Chronic gastritis without bleeding, unspecified gastritis type K29.50 ; Chronic prescription opiate use Z79.891 and BMI 28.0-28.9,adult Z68.28 [place] [address] [address] Jan, Chronic pain syndrome G89.4 [place] [address] [address] Dec, Chronic pain syndrome G89.4 [facility] [facility] [id number] [place] [address] Nov, Onychocryptosis L60.0 [facility] [id number] [place] [address] Nov, Chronic pain syndrome G89.4 [facility] [id number] [place] [address] Nov, Trochanteric bursitis of both hips M70.61 [facility] [id number] [place] [address] Oct, Hypothyroidism, unspecified hypothyroidism type E03.9 and Atrial fibrillation, unspecified type I48.91 [facility] [id number] [place] [address] Oct, Fibromyalgia M79.7 ; Chronic pain syndrome G89.4 ; Hypothyroidism, unspecified hypothyroidism type E03.9 ; Overweight (BMI 25.0-29.9) E66.3 and Atrial fibrillation, unspecified type I48.91 [place] [id number] [place] [address] Oct, Chronic pain syndrome G89.4 [facility] [id number] [place] [address] Sep, Chronic pain syndrome G89.4 [facility] [facility] [id number] [place] [address] August, Somatic dysfunction of lumbar region M99.03 and Somatic dysfunction of pelvis region M99.05 [facility] [facility] [id number] [place] [address] August, Chronic pain syndrome G89.4 [facility] [facility] [id number] [place] [address] Jul, Trochanteric bursitis of left hip M70.62 and Trochanteric bursitis, right hip M70.61 [place] [id number] [place] [address] Jul, [facility] [id number] [place] [address] Jul, Chronic pain syndrome G89.4 [facility] [id number] [place] [address] Jul, Hypothyroidism, unspecified hypothyroidism type E03.9 [facility] [id number] [place] [address] Jul, Hypothyroidism, unspecified hypothyroidism type E03.9 [facility] [facility] [id number] [place] [address] Jul, Chronic tension-type headache, not intractable G44.229 ; Atrial fibrillation, unspecified type I48.91 ; Chronic pain syndrome G89.4 ; Hypothyroidism, unspecified hypothyroidism type E03.9 ; Pancytopenia D61.818 ; History of hepatitis C Z86.19 ; Vaginal atrophy N95.2 ; RUQ abdominal pain R10.11 ; Chronic prescription opiate use Z79.891 ; Osteoporosis M81.0 and Screening for breast cancer Z12.31 [place] [id number] [place] [address] Jun, [facility] [facility] [id number] [place] [address] May, [facility] [id number] [place] [address] May, [facility] [id number] [place] [address] May, [facility] [id number] [place] [address] Apr, [facility] [id number] [place] [address] Apr, Hypothyroidism, unspecified hypothyroidism type E03.9 [facility] [id number] [place] [address] Apr, Hypothyroidism, unspecified hypothyroidism type E03.9 and Leukopenia, unspecified type D72.819 [place] [id number] [place] [address] Mar, [facility] [facility] [id number] [place] [address] Mar, Leukopenia, unspecified type D72.819 [place] [address] [address] Mar, Hypothyroidism, unspecified hypothyroidism type E03.9 and Low hemoglobin D64.9 [place] [address] [address] Mar, Hypothyroidism, unspecified hypothyroidism type E03.9 [facility] [facility] [id number] [place] [address] Mar, Osteoporosis M81.0 ; Low hemoglobin D64.9 and Hypothyroidism, unspecified hypothyroidism type E03.9 [facility] [id number] [place] [address] Mar, Hypothyroidism, unspecified hypothyroidism type E03.9 ; Bilirubin in urine R82.2 and Pancytopenia D61.818 [place] [id number] [place] [address] 30 Feb, 2017 [facility] [place] [id number] [place] [address] 18 Feb, 2017 Cough R05 and Bronchitis J40 [facility] [place] [id number] [place] [address] 14 Feb, 2017 Other viral agents as the cause of diseases classified elsewhere B97.89 and Acute upper respiratory infection, unspecified J06.[id number] [place] [address] 08 Feb, 2017 Fibromyalgia M79.7 ; Chronic pain syndrome G89.4 ; Hypothyroidism, unspecified hypothyroidism type E03.9 ; Primary insomnia F51.01 ; Osteoporosis M81.0 ; Vision abnormalities H53.9 ; Pancytopenia D61.818 ; BMI 28.0-28.9,adult Z68.28 and Encounter for immunization Z23 [place] [id number] [place] [address] Feb, Neuroma D36.10 and Capsulitis of right foot M77.[address] [address] Feb, [place] [address] [address] Feb, Hypothyroidism, unspecified hypothyroidism type E03.9 [place] [address] [address] Jan, [place] [address] [address] Jan, Atrial fibrillation, unspecified type I48.91 [place] [address] [address] Jan, [address] [address] Jan, Fibromyalgia M79.7 ; Atrial fibrillation, unspecified type I48.91 ; Pain of left hand M79.642 ; Pain in right hand M79.641 ; Chronic prescription opiate use Z79.891 ; Chronic pain syndrome G89.4 ; Elevated fasting glucose R73.01 and Hypothyroidism, unspecified hypothyroidism type E03.9 [place] [id number] [place] [address] Jan, [place] [address] [address] Dec, Trochanteric bursitis of both hips M70.61 [address] [id number] [place] [address] Dec, [place] [address] [address] Dec, [place] [id number] [place] [address] Nov, [place] [address] [address] Nov, Unilateral headache R51 [place] [address] [address] Nov, [place] [address] [address] Oct, Unilateral headache R51 ; 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 and Allergy to intravenous contrast Z91.041 [place] [address] [address] Oct, [place] [address] [address] Oct, [place] [address] [address] Sep, Hypothyroidism, unspecified hypothyroidism type E03.[address] [address] Sep, Hypothyroidism, unspecified hypothyroidism type E03.9 and Bilirubin in urine R82.2 [id number] [place] [address] Sep, Trochanteric bursitis of both hips M70.61 [place] [address] [address] Sep, Hypothyroidism, unspecified hypothyroidism type E03.9 ; Dysuria R30.0 ; Chronic tension-type headache, not intractable G44.229 and Drug induced constipation K59.03 [place] [id number] [place] [address] Sep, [place] [address] [address] Sep, [facility] [id number] [place] [address] August, [facility] [id number] [place] [address] Jul, [facility] [id number] [place] [address] Jul, Trochanteric bursitis of right hip M70.61 [facility] [id number] [place] [address] Jul, Hypothyroidism, unspecified hypothyroidism type E03.9 [facility] [id number] [place] [address] Jul, Fibromyalgia M79.7 ; Chronic pain syndrome G89.4 ; Hypothyroidism, unspecified hypothyroidism type E03.9 and Other constipation K59.09 [facility] [id number] [place] [address] Jun, Swollen tonsil J35.1 and Strep throat J02.0 [facility] [id number] [place] [address] Jun, [facility] [id number] [place] [address] Jun, Acute maxillary sinusitis J01.00 [facility] [id number] [place] [address] Jun, Hypothyroidism, unspecified hypothyroidism type E03.9 [facility] [id number] [place] [address] Jun, Chronic pain syndrome G89.4 ; Fibromyalgia M79.7 ; Hypothyroidism, unspecified hypothyroidism type E03.9 and Chronic prescription opiate use Z79.891 [facility] [id number] [place] [address] 10 May, 2016 [facility] [id number] [place] [address] Apr, Hypothyroidism, unspecified hypothyroidism type E03.9 [facility] [id number] [place] [address] Apr, [facility] [id number] [place] [address] Apr, Lipid screening Z13.220 and Hypothyroidism, unspecified hypothyroidism type E03.9 [place] [address] [address] Apr, [place] [address] [address] Mar, Trochanteric bursitis of both hips M70.61 [place] [address] [address] Mar, [place] [address] [address] Mar, Plantar fasciitis M72.2 and Porokeratosis Q82.8 [place] [id number] [place] [address] Feb, Lipid screening Z13.220 ; Vitamin D deficiency E55.9 and Hypothyroidism, unspecified hypothyroidism type E03.9 [place] [id number] [place] [address] 16 Feb, 2016 Chronic pain syndrome G89.4 ; Hypothyroidism, unspecified hypothyroidism type E03.9 ; Pancytopenia D61.818 ; Vaginal atrophy N95.2 ; Chronic gastritis without bleeding, unspecified gastritis type K29.50 ; Vitamin D deficiency E55.9 ; Chronic prescription opiate use Z79.891 ; Adverse effect of other opioids, initial encounter T40.2X5A ; Drug induced constipation K59.03 ; Lipid screening Z13.220 and Encounter for immunization Z23 [place] [id number] [place] [address] 04 Feb, 2016 [place] [address] [address] Feb, Ingrown toenail L60.0 [facility] [address] [address] Jan, [facility] [address] [address] Jan, Trochanteric bursitis of both hips M70.61 [facility] [id number] [place] [address] Jan, [facility] [id number] [place] [address] Jan, [facility] [id number] [place] [address] Jan, [facility] [id number] [place] [address] Jan, Right sided sciatica M54.31 [facility] [address] [place] [address] Dec, Onychomycosis B35.1 [facility] [address] [place] [address] Dec, [facility] [address] [address] Dec, [facility] [address] [address] Dec, [facility] [address] [address] Dec, Osteoarthritis of right hip, unspecified osteoarthritis type M16.11 and Bursitis of right hip M70.71 [facility] [address] [address] Nov, [facility] [address] [address] Nov, [facility] [id number] [place] [address] 17 Nov, 2015 [facility] [id number] [place] [address] 16 Nov, 2015 Hypothyroidism, unspecified hypothyroidism type E03.9 ; Vitamin D deficiency E55.9 and History of hepatitis C Z86.19 [facility] [id number] [place] [address] Nov, Right upper quadrant pain R10.11 ; History of hepatitis C Z86.19 and Low back pain M54.5 [facility] [id number] [place] [address] Oct, Trochanteric bursitis, right hip M70.61 [facility] [id number] [place] [address] Oct, [place] [id number] [place] [address] Oct, [facility] [id number] [place] [address] Oct, Trochanteric bursitis of both hips M70.61 and Right sided sciatica M54.31 [place] [id number] [place] [address] Oct, Trochanteric bursitis of both hips M70.61 [place] [id number] [place] [address] 14 Oct, 2015 RUQ abdominal pain R10.11 [place] [id number] [place] [address] 13 Oct, 2015 Sciatic leg pain M54.30 [facility] [id number] [place] [address] 11 Oct, 2015 RUQ abdominal pain R10.11 [facility] [id number] [place] [address] 07 Oct, 2015 RUQ abdominal pain R10.11 ; History of hepatitis C Z86.19 and Trigger point with back pain M54.9 [place] [address] [id number] [place] [address] Sep, [facility] [id number] [place] [address] Sep, Right sided sciatica M54.31 [place] [id number] [place] [address] Sep, Hypothyroidism, unspecified hypothyroidism type E03.9 and Vitamin D deficiency E55.9 [place] [id number] [place] [address] Sep, Plantar fasciitis M72.2 and Porokeratosis Q82.8 [place] [id number] [place] [address] Sep, Hypothyroidism, unspecified hypothyroidism type E03.9 ; Chronic pain syndrome G89.4 ; Polyneuropathy associated with underlying disease G63 and Vitamin D deficiency E55.9 [place] [id number] [place] [address] August, [place] [address] [id number] [place] [address] Jul, Plantar fasciitis M72.2 [place] [address] [address] [id number] [place] [address] Jul, Trochanteric bursitis, right hip M70.61 [place] [address] [place] [address] [id number] [place] [address] Jul, Hypothyroidism, unspecified hypothyroidism type E03.9 [facility] [id number] [place] [address] Jul, Hypothyroidism, unspecified hypothyroidism type E03.9 ; Chronic pain syndrome G89.4 and Polyneuropathy associated with underlying disease G63 [place] [address] [id number] [place] [address] Jun, Trochanteric bursitis of both hips M70.61 [place] [address] [place] [address] [id number] [place] [address] Jun, Vitamin D deficiency E55.9 ; Osteoporosis M81.0 ; Low back pain M54.5 and Plantar fasciitis M72.2 [place] [address] [id number] [place] [address] May, Vitamin D deficiency E55.9 and Hypothyroidism, unspecified hypothyroidism type E03.9 [place] [address] [id number] [place] [address] May, Acute maxillary sinusitis J01.00 [place] [address] [id number] [place] [address] May, Osteoporosis M81.0 and Hypothyroidism, unspecified hypothyroidism type E03.9 [place] [id number] [place] [address] May, Osteoporosis M81.0 [place] [address] [place] [id number] [place] [id number] May, [place] [address] [place] [id number] [place] [id number] Apr, [place] [address] [place] [place] [id number] [place] [id number] Apr, Trochanteric bursitis of both hips M70.61 [place] [address] [place] [id number] [place] [id number] Apr, Hypothyroidism, unspecified hypothyroidism type E03.9 [place] [address] [place] [id number] [place] [id number] Apr, Chronic pain syndrome G89.4 ; Bilateral low back pain with sciatica, sciatica laterality unspecified M54.40 ; Pain in right hip M25.551 ; Pain in left hip M25.552 ; Chronic prescription opiate use Z79.899 ; Primary insomnia F51.01 and Hypothyroidism, unspecified hypothyroidism type E03.9 [facility] [id number] [place] [id number] Mar, [facility] [id number] [place] [id number] Feb, [facility] [id number] [place] [id number] Feb, Chronic pain syndrome G89.4 and Major depression F32.9 [facility] [address] [address] Feb, Fatigue R53.83 [facility] [address] [address] Feb, History of fracture Z87.81 [facility] [address] [id number] Feb, Major depression, recurrent F33.9 and Generalized anxiety disorder F41.1 [facility] [id number] [place] [id number] Feb, [facility] [id number] [place] [id number] Jan, Hypothyroidism, unspecified hypothyroidism type E03.9 [facility] [id number] [place] [address] Jan, Abdominal pain R10.9 and Hypothyroidism, unspecified hypothyroidism type E03.9 [facility] [id number] [place] [address] Jan, Abdominal pain R10.9 [facility] [id number] [place] [address] Jan, Hypothyroidism, unspecified hypothyroidism type E03.9 [facility] [id number] [place] [address] Jan, [facility] [address] [address] Jan, 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 and Hypothyroidism, unspecified hypothyroidism type E03.9 [place] [address] [address] Jan, 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 ; Abdominal pain R10.9 ; Dyspareunia N94.1 ; Encounter for immunization Z23 ; History of fracture Z87.81 ; Fatigue R53.83 ; Throat fullness R68.89 ; Bruises easily R23.8 ; Hot flashes N95.1 ; Depression F32.9 and Vaginal atrophy N95.2 [place] [address] [address] Jan, Hypothyroidism, unspecified hypothyroidism type E03.9 [place] [address] [address] Jan, Unspecified abdominal pain R10.9 ; Chronic obstructive pulmonary disease, unspecified COPD type J44.9 ; Allergic rhinitis, unspecified allergic rhinitis type J30.9 ; Chronic pain syndrome G89.4 ; Hypothyroidism, unspecified hypothyroidism type E03.9 ; Chest pain, unspecified chest pain type R07.9 and Plantar fasciitis M72.2 [place] [address] [address] Jan, Trochanteric bursitis of both hips M70.61 [place] [id number] [place] [address] Dec, [place] [address] [address] Nov, [place] [address] [address] Nov, [place] [address] [address] Nov, Constipation 564.00 [facility] [address] [facility] [id number] [address] 31 Oct, 2014 Chronic pain 338.29 and Hypothyroidism 244.9 [facility] [id number] [address] 16 Oct, 2014 [facility] [address] [address] Sep, [facility] [id number] [place] [address] Sep, [facility] [address] [address] Sep, [facility] [id number] [place] [address] Sep, [facility] [id number] [place] [address] Sep, [facility] [address] [address] Sep, [facility] [id number] [place] [address] Sep, COPD exacerbation 491.21 ; Chronic pain 338.29 ; Hypothyroidism 244.9 and Pancytopenia 284.19 [facility] [address] [address] August, [facility] [address] [address] Jul, [facility] [address] [address] Jul, [facility] [id number] [address] Jun, [facility] [address] [address] Jun, [facility] [id number] [address] Jun, [facility] [place] [facility] [address] [id number] [place] [address] Jun, [facility] [place] [facility] [address] [id number] [place] [address] Jun, [facility] [place] [facility] [address] [id number] [place] [address] May, 2014 [facility] [place] [facility] [address] [id number] [place] [address] May, 2014 [facility] [place] [facility] [address] [id number] [place] [address] May, 2014 [facility] [place] [facility] [address] [id number] [place] [address] May, 2014 [facility] [place] [facility] [address] [id number] [place] [address] May, 2014 [facility] [place] [facility] [address] [id number] [place] [address] May, 2014 [facility] [place] [facility] [address] [id number] [place] [address] May, 2014 [facility] [place] [facility] [address] [facility] [id number] [place] [address] May, 2014 [facility] [place] [facility] [address] [id number] [place] [address] May, 2014 [facility] [place] [facility] [address] [id number] [place] [address] May, 2014 [facility] [place] [facility] [address] [id number] [place] [address] May, 2014 [facility] [place] [facility] [address] [id number] [place] [address] May, 2014 [facility] [place] [facility] [address] [id number] [place] [address] May, [facility] [place] [facility] [address] [id number] [place] [address] Apr, [facility] [place] [facility] [address] [id number] [place] [address] Apr, [facility] [place] [facility] [address] [id number] [place] [address] Apr, [facility] [place] [facility] [address] [id number] [place] [address] Apr, [facility] [place] [facility] [address] [id number] [place] [address] Apr, [facility] [place] [facility] [address] [id number] [place] [address] Apr, [facility] [place] [facility] [address] [id number] [place] [address] Apr, [facility] [place] [facility] [address] [id number] [place] [address] Mar, [facility] [place] [facility] [address] [id number] [place] [address] Mar, [facility] [place] [facility] [address] [id number] [place] [address] Mar, [facility] [place] [facility] [address] [id number] [place] [address] Mar, [facility] [place] [facility] [address] [id number] [address] Mar, [facility] [place] [facility] [address] [id number] [place] [address] Mar, [facility] [place] [facility] [address] [id number] [place] [address] Feb, [facility] [place] [facility] [address] [id number] [place] [address] Feb, [facility] [place] [facility] [address] [id number] [place] [address] Feb, [facility] [place] [facility] [address] [id number] [place] [address] Feb, [facility] [place] [facility] [address] [id number] [place] [address] Feb, [facility] [place] [facility] [address] [id number] [place] [address] Feb, [facility] [place] [facility] [address] [id number] [place] [address] Jan, [facility] [place] [facility] [address] [id number] [place] [address] Jan, [facility] [place] [facility] [address] [id number] [place] [address] Jan, [facility] [place] [facility] [address] [id number] [place] [address] Jan, [facility] [place] [facility] [address] [id number] [place] [address] Jan, [facility] [place] [facility] [address] [id number] [place] [address] Jan, [facility] [place] [facility] [address] [facility] [id number] [place] [address] Jan, [facility] [place] [facility] [address] [id number] [place] [address] Jan, [facility] [place] [facility] [address] [id number] [place] [address] Dec, [facility] [place] [facility] [address] [id number] [place] [address] Dec, [facility] [place] [facility] [address] [facility] [id number] [place] [address] Dec, [facility] [place] [facility] [address] [id number] [place] [address] Dec, [facility] [place] [facility] [address] [id number] [place] [address] Dec, [facility] [place] [facility] [address] [id number] [place] [address] Dec, [facility] [place] [facility] [address] [id number] [place] [address] Dec, [facility] [place] [facility] [address] [id number] [place] [address] Nov, [facility] [place] [facility] [address] [id number] [place] [address] Nov, [facility] [place] [facility] [address] [id number] [place] [address] Oct, [facility] [place] [facility] [address] [id number] [place] [address] Oct, [facility] [place] [facility] [address] [id number] [place] [address] Oct, [facility] [place] [facility] [address] [id number] [place] [address] Oct, [facility] [place] [facility] [address] [id number] [place] [address] Sep, [facility] [place] [facility] [address] [id number] [place] [address] Sep, [facility] [place] [facility] [address] [id number] [place] [address] Sep, [facility] [place] [facility] [address] [id number] [place] [address] Sep, [facility] [place] [facility] [address] [id number] [place] [address] Sep, [facility] [place] [facility] [address] [id number] [place] [address] Sep, [facility] [place] [facility] [address] [id number] [place] [address] Sep, [facility] [place] [facility] [address] [id number] [place] [address] Sep, [facility] [place] [facility] [address] [id number] [place] [address] August, [facility] [place] [facility] [address] [id number] [place] [address] August, [facility] [place] [facility] [address] [id number] [place] [address] August, [facility] [place] [facility] [address] [id number] [place] [address] August, [facility] [place] [facility] [address] [id number] [place] [address] Jul, [facility] [place] [facility] [address] [id number] [place] [address] Jul, [facility] [place] [facility] [address] [id number] [place] [address] Jul, [facility] [place] [facility] [address] [id number] [place] [address] Jul, [facility] [place] [facility] [address] [id number] [place] [address] Jul, [facility] [place] [facility] [address] [id number] [place] [address] 16 Jul, 2013 [facility] [place] [facility] [address] [id number] [place] [address] 15 Jul, 2013 [facility] [place] [facility] [address] [id number] [place] [address] Jul, [facility] [place] [facility] [address] [id number] [place] [address] Jun, [facility] [place] [facility] [address] [id number] [place] [address] Jun, [facility] [place] [facility] [address] [id number] [place] [address] Jun, [facility] [address] [id number] [place] [address] Jun, [facility] [place] [facility] [address] [id number] [place] [address] Jun, [facility] [address] [id number] [place] [address] Jun, [facility] [place] [facility] [address] [id number] [place] [address] Jun, [facility] [place] [facility] [address] [id number] [place] [address] Jun, [facility] [place] [facility] [address] [id number] [place] [address] May, [facility] [place] [facility] [address] [id number] [place] [address] May, [facility] [address] [id number] [place] [address] Apr, [facility] [address] [id number] [place] [address] Apr, [facility] [address] [id number] [place] [address] Mar, [facility] [place] [facility] [address] [id number] [place] [address] 24 Mar, 2013 [facility] [place] [facility] [address] [id number] [place] [address] Mar, [facility] [place] [facility] [address] [id number] [place] [address] Mar, [facility] [place] [facility] [address] [id number] [place] [address] Mar, [facility] [place] [facility] [address] [id number] [place] [address] Mar, [facility] [address] [id number] [place] [address] Mar, [facility] [place] [facility] [address] [id number] [place] [address] Feb, [facility] [place] [facility] [address] [id number] [place] [address] Feb, [facility] [place] [facility] [address] [id number] [place] [address] Feb, [facility] [place] [facility] [address] [id number] [place] [address] Feb, [facility] [place] [facility] [address] [id number] [place] [address] Feb, [facility] [place] [facility] [address] [id number] [place] [address] Feb, [facility] [place] [facility] [address] [id number] [place] [address] 26 Dec, 2012 [facility] [place] [facility] [address] [id number] [place] [address] 18 Dec, 2012 [facility] [place] [facility] [address] [id number] [place] [address] Dec, [facility] [place] [facility] [address] [id number] [place] [address] Dec, [facility] [place] [facility] [address] [id number] [address] 06 Dec, 2012 [facility] [place] [facility] [address] [id number] [place] [address] Nov, [facility] [place] [facility] [address] [id number] [place] [address] Nov, [facility] [place] [facility] [address] [id number] [place] [address] Oct, [facility] [place] [facility] [address] [id number] [place] [address] August, [facility] [address] [id number] [place] [address] August, [facility] [address] [id number] [place] [address] August, [facility] [address] [id number] [place] [address] Jul, [facility] [place] [facility] [address] [id number] [place] [address] Jul, [facility] [address] [id number] [place] [address] Jul, [facility] [address] [id number] [place] [address] Jun, [facility] [address] [id number] [place] [address] Jun, [facility] [address] [id number] [place] [address] Jun, [facility] [address] [id number] [place] [address] Jun, [facility] [address] [facility] [id number] [place] [address] Jun, [facility] [address] [id number] [place] [address] 15 Jun, 2012 [facility] [place] [facility] [address] [id number] [place] [address] Jun, [facility] [place] [facility] [address] [id number] [place] [address] May, [facility] [place] [facility] [address] [id number] [place] [address] May, [facility] [address] [id number] [place] [address] May, [facility] [place] [facility] [address] [id number] [place] [address] 05 May, 2012 [facility] [place] [facility] [address] [id number] [place] [address] Apr, [facility] [place] [facility] [address] [id number] [place] [address] Apr, [facility] [place] [facility] [address] [id number] [place] [address] Apr, [facility] [address] [id number] [place] [address] Mar, [facility] [place] [facility] [address] [id number] [place] [address] Mar, [facility] [address] [id number] [place] [address] Mar, [facility] [address] [id number] [place] [address] Mar, [facility] [place] [facility] [address] [id number] [place] [address] Mar, [facility] [place] [facility] [address] [id number] [place] [address] Mar, [facility] [place] [facility] [address] [id number] [place] [address] Mar, [facility] [place] [facility] [address] [id number] [place] [address] Mar, [facility] [place] [facility] [address] [id number] [place] [address] Feb, [facility] [place] [facility] [address] [id number] [place] [address] Feb, [facility] [place] [facility] [address] [id number] [place] [address] Feb, [facility] [place] [facility] [address] [id number] [place] [address] Jan, [facility] [place] [facility] [address] [id number] [place] [address] Jan, [facility] [place] [facility] [address] [id number] [place] [address] Jan, [facility] [place] [facility] [address] [id number] [place] [address] Jan, [facility] [place] [facility] [address] [id number] [place] [address] Jan, [facility] [place] [facility] [address] [id number] [place] [address] Jan, [facility] [place] [facility] [address] [id number] [place] [address] Jan, [facility] [place] [facility] [address] [id number] [place] [address] Dec, [facility] [place] [facility] [address] [id number] [place] [address] Dec, [facility] [place] [facility] [address] [id number] [place] [address] Dec, [facility] [place] [facility] [address] [id number] [place] [address] Nov, [facility] [place] [facility] [address] [id number] [place] [address] Nov, [facility] [place] [facility] [address] [id number] [place] [address] Nov, [facility] [place] [facility] [address] [id number] [place] [address] Nov, [facility] [place] [facility] [address] [id number] [place] [address] Oct, [facility] [place] [facility] [address] [id number] [place] [address] Oct, [facility] [place] [facility] [address] [id number] [place] [address] 02 Oct, 2011 [facility] [place] [facility] [address] [id number] [place] [address] 18 Sep, 2011 [facility] [place] [facility] [address] [id number] [place] [address] 16 Sep, 2011 [facility] [place] [facility] [address] [id number] [place] [address] Sep, [facility] [place] [facility] [address] [id number] [place] [address] Sep, [facility] [place] [facility] [address] [id number] [place] [address] Sep, [facility] [place] [facility] [address] [id number] [place] [address] Sep, [facility] [place] [facility] [address] [id number] [place] [address] August, [facility] [place] [facility] [address] [id number] [place] [address] Jul, [facility] [place] [facility] [address] [id number] [place] [address] Jul, [facility] [place] [facility] [address] [id number] [place] [address] Jul, [facility] [place] [facility] [address] [id number] [place] [address] Jul, [facility] [place] [facility] [address] [id number] [place] [address] Jul, [facility] [place] [facility] [address] [id number] [place] [address] 29 Jun, 2011 [facility] [place] [facility] [address] [id number] [place] [address] Jun, [facility] [place] [facility] [address] [id number] [place] [address] 15 Jun, 2011 [facility] [address] [id number] [place] [address] 15 Jun, 2011 [facility] [place] [facility] [address] [id number] [place] [address] Jun, [facility] [place] [facility] [address] [id number] [place] [address] May, [facility] [place] [facility] [address] [id number] [place] [address] May, [facility] [place] [facility] [address] [id number] [place] [address] May, [facility] [place] [facility] [address] [id number] [place] [address] May, [facility] [place] [facility] [address] [id number] [place] [address] May, [facility] [place] [facility] [address] [id number] [place] [address] May, [facility] [place] [facility] [address] [id number] [place] [address] May, [facility] [place] [facility] [address] [id number] [place] [address] Apr, [facility] [place] [facility] [address] [id number] [place] [address] Mar, [facility] [place] [facility] [address] [id number] [place] [address] Mar, [facility] [place] [facility] [address] [id number] [place] [address] Mar, [facility] [place] [facility] [address] [id number] [place] [address] Mar, [facility] [place] [facility] [address] [id number] [place] [address] Mar, [facility] [place] [facility] [address] [id number] [place] [address] 23 Feb, 2011 [facility] [address] [id number] [place] [address] 14 Feb, 2011 [facility] [place] [facility] [address] [id number] [place] [address] 14 Feb, 2011 [facility] [address] [id number] [place] [address] 14 Feb, 2011 [facility] [place] [facility] [address] [id number] [place] [address] 07 Feb, 2011 [facility] [address] [id number] [place] [address] 04 Feb, 2011 [facility] [place] [facility] [address] [id number] [place] [address] 04 Feb, 2011 [facility] [address] [id number] [place] [address] 10 Jan, 2011 [facility] [address] [id number] [place] [address] 12 Dec, 2010 [facility] [place] [facility] [address] [id number] [place] [address] Oct, [facility] [address] [id number] [place] [address] 10 Jun, 2010 [facility] [address] [id number] [place] [address] 23 Mar, 2010 [facility] [place] [facility] [address] [id number] [place] [address] 23 Mar, 2010 [facility] [place] [facility] [address] [id number] [place] [address] 16 Mar, 2010 [facility] [place] [facility] [address] [id number] [place] [address] 16 Mar, 2010 [facility] [place] [facility] [address] [id number] [place] [address] 15 Mar, 2010 [facility] [address] [id number] [place] [address] 10 Mar, 2010 [facility] [place] [facility] [address] [id number] [place] [address] 10 Mar, 2010 [facility] [place] [facility] [address] [id number] [place] [address] 05 Mar, 2010 [facility] [place] [facility] [address] [id number] [place] [address] Mar, [facility] [place] [facility] [address] [id number] [place] [address] Mar, [facility] [place] [facility] [address] [id number] [place] [address] Jan, [facility] [place] [facility] [address] [id number] [place] [address] Jan, [facility] [place] [facility] [address] [id number] [place] [address] Jan, [facility] [place] [facility] [address] [id number] [place] [address] Nov, [facility] [place] [facility] [address] [id number] [place] [address] Oct, [facility] [place] [facility] [address] [id number] [place] [address] 31 Mar, 2009 [facility] [place] [facility] [address] [id number] [address] 20 Mar, 2009 [facility] [place] [facility] [address] [id number] [place] [address] 17 Mar, 2009 [facility] [place] [facility] [address] [id number] [place] [address] Mar, [facility] [place] [facility] [address] [id number] [place] [address] 17 Dec, 2008 [facility] [place] [facility] [address] [id number] [address] August, [facility] [address] [facility] [id number] [address] August, [facility] [address] [facility] [id number] [address] Jul, [facility] [address] [facility] [id number] [address] Jan, [facility] [address] [facility] [id number] [place] [id number] Jan, IMMUNIZATIONS No Known Immunizations SOCIAL HISTORY Never Assessed [place]AS[place] [facility] [place] VITAL SIGNS MEDICATIONS Medication Instructions Dosage Frequency Start Date End Date Duration Status Levaquin 750 mg 1 tablet by Oral route every 24 hours for 7 days Mar, Active Nasonex 50 mcg/actuation 1 sprays by Nasal route 2 times per day in each nostril Mar, Active PredniSONE 20 mg 2 tablet by Oral route 1 time per day for 5 day(s) Jun, Active Hydrocodone-Acetaminophen 5-325 mg take 1 tablet by Oral route every 4-6 hours as needed for pain PRN Jun, Active Simvastatin 20 mg 1 tablet by Oral route 1 time per day Apr, Active Flonase 50 mcg/actuation 1 sprays by Nasal route 2 times per day in each nostril Oct, Active Doxycycline Hyclate 100 mg take 1 tablet by Oral route 2 times per day for 10 days Oct, Active Levaquin 500 mg 1 tablet by Oral route every 24 hours for 10 days Mar, Active levothyroxine 200 mcg take 2 tablet by Oral route 1 time per day Take 2 tabs daily to equal 400mcg daily Apr, Active MiraLax 17 gram/dose take 8.5 g mixed with 8 oz. water or juice by Oral route 1 time per day Sep, Active RESULTS No Results PROCEDURES No Known procedures [...]
--- OUTSIDE RECORDS SUMMARY | 2018-09-22 02:37 | XMS REPORT ---
Author Author Migration, Doctor Organization [facility] Address Unknown Phone Unavailable Care Team Providers Care Music Autographer Name Role Phone Migration, Doctor Unavailable Unavailable PROBLEMS Type Condition ICD9-CM Code [id number] Code Onset Dates Condition Status SNOMED Code Problem Osteoporosis M81.0 Active 15933535 Problem Fibromyalgia M79.7 Active 92430058 Problem Unspecified abdominal pain R10.9 Active 247642406 Problem Chronic tension-type headache, not intractable G44.229 Active 196114402 Problem Chronic pain syndrome G89.4 Active 688935987 Problem Hypothyroidism, unspecified hypothyroidism type E03.9 Active 91429977 Problem Pancytopenia D61.818 Active 610434424 Problem Right sided sciatica M54.31 Active 06165500 Problem RUQ abdominal pain R10.11 Active 899859979 Problem Vitamin D deficiency E55.9 Active 93805182 Problem Chronic gastritis without bleeding, unspecified gastritis type K29.50 Active 8944754 Problem Vaginal atrophy N95.2 Active 473776418 Problem Hot flashes N95.1 Active 290498787 Problem Primary insomnia F51.01 Active 1621921 Problem Major depression, recurrent F33.9 Active 51575069 Problem Plantar fasciitis M72.2 Active 272936233 Problem Low back pain M54.5 Active 196725819 Problem Trigger point with back pain M54.9 Active 760164465 Problem Polyneuropathy associated with underlying disease G63 Active 904950171 Problem Drug induced constipation K59.03 Active 205710871151704 Problem Chronic prescription opiate use Z79.891 Active 731336096 Problem Porokeratosis Q82.8 Active 738615206 Problem Leukopenia, unspecified type D72.819 Active 49281291 Problem Allergic rhinitis, unspecified allergic rhinitis type J30.9 Active 03200094 Problem Pure hypercholesterolemia E78.00 Active 181303866 Problem Chronic obstructive pulmonary disease, unspecified COPD type J44.9 Active 13067396 Problem History of hepatitis C Z86.19 Active 86778807054804 Problem Other constipation K59.09 Active 285570853 Problem Allergy to intravenous contrast Z91.041 Active 296914526 Problem 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 Active 560249733 Problem Atrial fibrillation, unspecified type I48.91 Active 51186581 ALLERGIES No Information ENCOUNTERS Encounter Location Date Diagnosis [facility] [address] [address] Jun, Acute bronchitis, unspecified organism J20.9 [place] [address] [address] Jun, Hypothyroidism, unspecified hypothyroidism type E03.9 [place] [address] [address] Jun, Chronic obstructive pulmonary disease, unspecified COPD type J44.9 ; Chronic pain syndrome G89.4 ; Hypothyroidism, unspecified hypothyroidism type E03.9 ; Allergic rhinitis, unspecified allergic rhinitis type J30.9 and Osteoporosis M81.0 [place] [address] [address] Jun, [facility] [place] [address] [address] May, Influenza A J10.1 [place] [address] [address] May, Chronic pain syndrome G89.4 [place] [address] [address] Apr, Chronic pain syndrome G89.4 [facility] [place] [address] [address] Apr, Acute maxillary sinusitis J01.00 and Sore throat J02.9 [place] [address] [address] Apr, Chronic pain syndrome G89.4 [place] [address] [address] 13 Dec, 2018 Trochanteric bursitis of both hips M70.61 [facility] [address] [address] Mar, Chronic pain syndrome G89.4 [facility] [address] [place] [id number] [place] [address] Feb, Sore throat and laryngitis J06.0 ; Acute streptococcal pharyngitis J02.0 ; Dog scratch W54.8XXA and Cellulitis L03.90 [facility] [address] [address] Feb, Acute maxillary sinusitis J01.00 [place] [address] [address] Feb, Hypothyroidism, unspecified hypothyroidism type E03.9 [place] [address] [address] Feb, Chronic pain syndrome G89.4 [place] [address] [address] Jan, Fibromyalgia M79.7 ; Chronic pain syndrome G89.4 ; Low back pain M54.5 ; Hypothyroidism, unspecified hypothyroidism type E03.9 ; Leukopenia, unspecified type D72.819 ; Pure hypercholesterolemia E78.00 ; Right upper quadrant pain R10.11 ; Encounter for immunization Z23 ; Chronic gastritis without bleeding, unspecified gastritis type K29.50 ; Chronic prescription opiate use Z79.891 and BMI 28.0-28.9,adult Z68.28 [facility] [address] [place] [id number] [place] [address] Jan, Chronic pain syndrome G89.4 [place] [address] [address] Dec, Chronic pain syndrome G89.4 [place] [address] [address] Nov, Onychocryptosis L60.0 [place] [address] [place] [id number] [place] [address] Nov, Chronic pain syndrome G89.4 [place] [address] [place] [id number] [place] [address] Nov, Trochanteric bursitis of both hips M70.61 [place] [address] [place] [id number] [place] [address] Oct, Hypothyroidism, unspecified hypothyroidism type E03.9 and Atrial fibrillation, unspecified type I48.91 [place] [address] [place] [id number] [place] [address] Oct, Fibromyalgia M79.7 ; Chronic pain syndrome G89.4 ; Hypothyroidism, unspecified hypothyroidism type E03.9 ; Overweight (BMI 25.0-29.9) E66.3 and Atrial fibrillation, unspecified type I48.91 [place] [address] [place] [id number] [place] [address] Oct, Chronic pain syndrome G89.4 [place] [address] [place] [id number] [place] [address] Sep, Chronic pain syndrome G89.4 [place] [address] [place] [id number] [place] [address] August, Somatic dysfunction of lumbar region M99.03 and Somatic dysfunction of pelvis region M99.05 [place] [address] [place] [id number] [place] [address] August, Chronic pain syndrome G89.4 [place] [address] [place] [id number] [place] [address] Jul, Trochanteric bursitis of left hip M70.62 and Trochanteric bursitis, right hip M70.61 [place] [address] [place] [id number] [place] [address] Jul, [place] [address] [place] [id number] [place] [address] Jul, Chronic pain syndrome G89.4 [facility] [address] [place] [id number] [place] [address] Jul, Hypothyroidism, unspecified hypothyroidism type E03.9 [facility] [address] [place] [id number] [place] [address] Jul, Hypothyroidism, unspecified hypothyroidism type E03.9 [place] [address] [address] Jul, Chronic tension-type headache, not intractable G44.229 ; Atrial fibrillation, unspecified type I48.91 ; Chronic pain syndrome G89.4 ; Hypothyroidism, unspecified hypothyroidism type E03.9 ; Pancytopenia D61.818 ; History of hepatitis C Z86.19 ; Vaginal atrophy N95.2 ; RUQ abdominal pain R10.11 ; Chronic prescription opiate use Z79.891 ; Osteoporosis M81.0 and Screening for breast cancer Z12.31 [place] [address] [address] Jun, [place] [address] [place] [id number] [place] [address] May, [place] [address] [place] [id number] [place] [address] May, [place] [address] [place] [id number] [place] [address] May, [place] [address] [place] [id number] [place] [address] Apr, [place] [address] [place] [id number] [place] [address] Apr, Hypothyroidism, unspecified hypothyroidism type E03.9 [place] [address] [place] [id number] [place] [address] Apr, Hypothyroidism, unspecified hypothyroidism type E03.9 and Leukopenia, unspecified type D72.819 [place] [address] [place] [address] Mar, [place] [address] [address] Mar, Leukopenia, unspecified type D72.819 [place] [address] [address] Mar, Hypothyroidism, unspecified hypothyroidism type E03.9 and Low hemoglobin D64.9 [place] [address] [address] Mar, Hypothyroidism, unspecified hypothyroidism type E03.9 [place] [address] [address] Mar, Osteoporosis M81.0 ; Low hemoglobin D64.9 and Hypothyroidism, unspecified hypothyroidism type E03.9 [place] [address] [address] Mar, Hypothyroidism, unspecified hypothyroidism type E03.9 ; Bilirubin in urine R82.2 and Pancytopenia D61.818 [place] [address] [address] Feb, [facility] [address] [address] 18 Feb, 2017 Cough R05 and Bronchitis J40 [facility] [address] [address] 14 Feb, 2017 Other viral agents as the cause of diseases classified elsewhere B97.89 and Acute upper respiratory infection, unspecified J06.9 [place] [address] [address] 08 Feb, 2017 Fibromyalgia M79.7 ; Chronic pain syndrome G89.4 ; Hypothyroidism, unspecified hypothyroidism type E03.9 ; Primary insomnia F51.01 ; Osteoporosis M81.0 ; Vision abnormalities H53.9 ; Pancytopenia D61.818 ; BMI 28.0-28.9,adult Z68.28 and Encounter for immunization Z23 [facility] [address] [place] [id number] [place] [address] Feb, Neuroma D36.10 and Capsulitis of right foot M77.51 [facility] [address] [place] [id number] [place] [address] Feb, [place] [address] [place] [id number] [place] [address] Feb, Hypothyroidism, unspecified hypothyroidism type E03.9 [place] [address] [place] [id number] [place] [address] Jan, [place] [address] [address] Jan, Atrial fibrillation, unspecified type I48.91 [place] [address] [place] [id number] [place] [address] Jan, [place] [address] [place] [id number] [place] [address] Jan, Fibromyalgia M79.7 ; Atrial fibrillation, unspecified type I48.91 ; Pain of left hand M79.642 ; Pain in right hand M79.641 ; Chronic prescription opiate use Z79.891 ; Chronic pain syndrome G89.4 ; Elevated fasting glucose R73.01 and Hypothyroidism, unspecified hypothyroidism type E03.9 [place] [address] [place] [id number] [place] [address] Jan, [place] [address] [place] [id number] [place] [address] Dec, Trochanteric bursitis of both hips M70.61 [place] [address] [place] [id number] [place] [address] Dec, [place] [address] [place] [id number] [place] [address] 05 Dec, 2016 [place] [address] [place] [id number] [place] [address] Nov, [facility] [address] [place] [id number] [place] [address] Nov, Unilateral headache R51 [facility] [address] [place] [id number] [place] [address] Nov, [facility] [address] [place] [id number] [place] [address] Oct, Unilateral headache R51 ; 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 and Allergy to intravenous contrast Z91.041 [facility] [address] [place] [id number] [place] [address] Oct, [facility] [address] [address] Oct, [facility] [address] [address] Sep, Hypothyroidism, unspecified hypothyroidism type E03.9 [facility] [address] [place] [id number] [place] [address] Sep, Hypothyroidism, unspecified hypothyroidism type E03.9 and Bilirubin in urine R82.2 [facility] [address] [place] [id number] [place] [address] Sep, Trochanteric bursitis of both hips M70.61 [facility] [address] [place] [id number] [place] [address] Sep, Hypothyroidism, unspecified hypothyroidism type E03.9 ; Dysuria R30.0 ; Chronic tension-type headache, not intractable G44.229 and Drug induced constipation K59.03 [facility] [address] [place] [id number] [place] [address] Sep, [facility] [address] [place] [id number] [place] [address] Sep, [facility] [address] [place] [id number] [place] [address] August, [facility] [address] [place] [address] Jul, [facility] [address] [place] [id number] [place] [address] Jul, Trochanteric bursitis of right hip M70.61 [facility] [address] [place] [id number] [place] [address] Jul, Hypothyroidism, unspecified hypothyroidism type E03.9 [facility] [address] [place] [id number] [place] [address] Jul, Fibromyalgia M79.7 ; Chronic pain syndrome G89.4 ; Hypothyroidism, unspecified hypothyroidism type E03.9 and Other constipation K59.09 [facility] [address] [place] [id number] [place] [address] Jun, Swollen tonsil J35.1 and Strep throat J02.0 [facility] [address] [place] [id number] [place] [address] Jun, [facility] [address] [place] [id number] [place] [address] Jun, Acute maxillary sinusitis J01.00 [facility] [address] [place] [id number] [place] [address] Jun, Hypothyroidism, unspecified hypothyroidism type E03.9 [facility] [address] [place] [id number] [place] [address] Jun, Chronic pain syndrome G89.4 ; Fibromyalgia M79.7 ; Hypothyroidism, unspecified hypothyroidism type E03.9 and Chronic prescription opiate use Z79.891 [facility] [address] [place] [id number] [place] [address] May, [facility] [address] [place] [id number] [place] [address] Apr, Hypothyroidism, unspecified hypothyroidism type E03.9 [facility] [address] [place] [id number] [place] [address] Apr, [facility] [address] [place] [id number] [place] [address] Apr, Lipid screening Z13.220 and Hypothyroidism, unspecified hypothyroidism type E03.9 [place] [address] [place] [id number] [place] [address] Apr, [place] [address] [address] Mar, Trochanteric bursitis of both hips M70.61 [place] [address] [place] [id number] [place] [address] Mar, [place] [address] [place] [address] [place] [address] Mar, Plantar fasciitis M72.2 and Porokeratosis Q82.8 [place] [address] [place] [address] [place] [address] Feb, Lipid screening Z13.220 ; Vitamin D deficiency E55.9 and Hypothyroidism, unspecified hypothyroidism type E03.9 [place] [address] [place] [address] [place] [address] 16 Feb, 2016 Chronic pain syndrome G89.4 ; Hypothyroidism, unspecified hypothyroidism type E03.9 ; Pancytopenia D61.818 ; Vaginal atrophy N95.2 ; Chronic gastritis without bleeding, unspecified gastritis type K29.50 ; Vitamin D deficiency E55.9 ; Chronic prescription opiate use Z79.891 ; Adverse effect of other opioids, initial encounter T40.2X5A ; Drug induced constipation K59.03 ; Lipid screening Z13.220 and Encounter for immunization Z23 [place] [address] [place] [id number] [place] [address] Feb, [place] [address] [place] [address] [place] [address] Feb, Ingrown toenail L60.0 [place] [address] [place] [id number] [place] [address] Jan, [facility] [address] [place] [id number] [address] Jan, Trochanteric bursitis of both hips M70.61 [facility] [address] [id number] [address] Jan, [facility] [address] [id number] [address] Jan, [facility] [address] [place] [id number] [address] Jan, [facility] [address] [place] [address] Jan, Right sided sciatica M54.31 [facility] [address] [place] [id number] [address] 23 Dec, 2015 Onychomycosis B35.1 [facility] [address] [id number] [address] Dec, [facility] [address] [place] [address] Dec, [facility] [address] [id number] [address] 09 Dec, 2015 [facility] [address] [id number] [address] Dec, Osteoarthritis of right hip, unspecified osteoarthritis type M16.11 and Bursitis of right hip M70.71 [facility] [address] [id number] [address] Nov, [facility] [address] [id number] [address] Nov, [facility] [id number] [address] Nov, [facility] [address] [id number] [place] [address] Nov, Hypothyroidism, unspecified hypothyroidism type E03.9 ; Vitamin D deficiency E55.9 and History of hepatitis C Z86.19 [place] [address] [place] [id number] [place] [address] 10 Nov, 2015 Right upper quadrant pain R10.11 ; History of hepatitis C Z86.19 and Low back pain M54.5 [place] [address] [place] [id number] [place] [address] Oct, Trochanteric bursitis, right hip M70.61 [place] [address] [place] [id number] [place] [address] Oct, [place] [address] [address] Oct, [place] [address] [place] [id number] [place] [address] Oct, Trochanteric bursitis of both hips M70.61 and Right sided sciatica M54.31 [place] [address] [place] [id number] [place] [address] Oct, Trochanteric bursitis of both hips M70.61 [place] [address] [place] [id number] [place] [address] 14 Oct, 2015 RUQ abdominal pain R10.11 [place] [address] [place] [id number] [place] [address] 13 Oct, 2015 Sciatic leg pain M54.30 [place] [address] [place] [id number] [place] [address] 11 Oct, 2015 RUQ abdominal pain R10.11 [place] [address] [place] [address] [place] [address] 07 Oct, 2015 RUQ abdominal pain R10.11 ; History of hepatitis C Z86.19 and Trigger point with back pain M54.9 [place] [address] [place] [id number] [place] [address] Sep, [place] [address] [place] [id number] [place] [address] Sep, Right sided sciatica M54.31 [place] [address] [place] [id number] [place] [address] Sep, Hypothyroidism, unspecified hypothyroidism type E03.9 and Vitamin D deficiency E55.9 [place] [address] [place] [address] [place] [address] Sep, Plantar fasciitis M72.2 and Porokeratosis Q82.8 [place] [address] [place] [address] [place] [address] Sep, Hypothyroidism, unspecified hypothyroidism type E03.9 ; Chronic pain syndrome G89.4 ; Polyneuropathy associated with underlying disease G63 and Vitamin D deficiency E55.9 [place] [address] [place] [id number] [place] [address] August, [place] [address] [place] [id number] [place] [address] Jul, Plantar fasciitis M72.2 [place] [address] [place] [id number] [place] [address] Jul, Trochanteric bursitis, right hip M70.61 [place] [address] [place] [id number] [place] [address] Jul, Hypothyroidism, unspecified hypothyroidism type E03.9 [place] [address] [place] [address] Jul, Hypothyroidism, unspecified hypothyroidism type E03.9 ; Chronic pain syndrome G89.4 and Polyneuropathy associated with underlying disease G63 [place] [address] [place] [address] Jun, Trochanteric bursitis of both hips M70.61 [place] [address] [place] [id number] [place] [address] Jun, Vitamin D deficiency E55.9 ; Osteoporosis M81.0 ; Low back pain M54.5 and Plantar fasciitis M72.2 [place] [id number] [place] [address] May, Vitamin D deficiency E55.9 and Hypothyroidism, unspecified hypothyroidism type E03.9 [place] [address] [address] May, Acute maxillary sinusitis J01.00 [place] [address] [address] May, Osteoporosis M81.0 and Hypothyroidism, unspecified hypothyroidism type E03.9 [place] [address] [id number] [place] [address] 16 May, 2015 Osteoporosis M81.0 [place] [address] [address] May, [place] [address] [address] Apr, [place] [address] [address] Apr, Trochanteric bursitis of both hips M70.61 [place] [id number] [place] [address] Apr, Hypothyroidism, unspecified hypothyroidism type E03.9 [place] [address] [id number] [place] [address] 05 Apr, 2015 Chronic pain syndrome G89.4 ; Bilateral low back pain with sciatica, sciatica laterality unspecified M54.40 ; Pain in right hip M25.551 ; Pain in left hip M25.552 ; Chronic prescription opiate use Z79.899 ; Primary insomnia F51.01 and Hypothyroidism, unspecified hypothyroidism type E03.9 [place] [id number] [place] [address] Mar, [place] [address] [address] Feb, [place] [address] [address] Feb, Chronic pain syndrome G89.4 and Major depression F32.9 [place] [address] [address] Feb, Fatigue R53.83 [place] [address] [address] Feb, History of fracture Z87.81 [place] [address] [address] Feb, Major depression, recurrent F33.9 and Generalized anxiety disorder F41.1 [place] [address] [address] Feb, [place] [address] [address] Jan, Hypothyroidism, unspecified hypothyroidism type E03.9 [place] [address] [address] Jan, Abdominal pain R10.9 and Hypothyroidism, unspecified hypothyroidism type E03.9 [place] [address] [address] Jan, Abdominal pain R10.9 [place] [address] [address] Jan, Hypothyroidism, unspecified hypothyroidism type E03.9 [place] [address] [address] Jan, [place] [address] [address] Jan, Encntr for floor helper exam (general) (routine) w/o 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 Z01.419 and Hypothyroidism, unspecified hypothyroidism type E03.9 [place] [address] [address] Jan, Encntr for floor helper exam (general) (routine) w/o 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 Z01.419 ; Abdominal pain R10.9 ; Dyspareunia N94.1 ; Encounter for immunization Z23 ; History of fracture Z87.81 ; Fatigue R53.83 ; Throat fullness R68.89 ; Bruises easily R23.8 ; Hot flashes N95.1 ; Depression F32.9 and Vaginal atrophy N95.2 [place] [address] [address] Jan, Hypothyroidism, unspecified hypothyroidism type E03.9 [place] [address] [address] Jan, Unspecified abdominal pain R10.9 ; Chronic obstructive pulmonary disease, unspecified COPD type J44.9 ; Allergic rhinitis, unspecified allergic rhinitis type J30.9 ; Chronic pain syndrome G89.4 ; Hypothyroidism, unspecified hypothyroidism type E03.9 ; Chest pain, unspecified chest pain type R07.9 and Plantar fasciitis M72.2 [place] [address] [address] Jan, Trochanteric bursitis of both hips M70.61 [place] [address] [address] Dec, [place] [address] [address] Nov, [place] [address] [address] Nov, [place] [address] [address] Nov, Constipation 564.00 [place] [address] [address] Oct, Chronic pain 338.29 and Hypothyroidism 244.9 [facility] [address] [address] 16 Oct, 2014 [facility] [address], [place] [address] Sep, [facility] [address], [place] [address] Sep, [facility] [address] [address] Sep, [facility] [address], [place] [address] Sep, [facility] [address] [address] Sep, [facility] [address], [place] [address] Sep, [facility] [address], [place] [address] Sep, COPD exacerbation 491.21 ; Chronic pain 338.29 ; Hypothyroidism 244.9 and Pancytopenia 284.19 [facility] [address], [place] [address] August, [facility] [address] [address] Jul, [facility] [address] [address] Jul, [facility] [address] [address] Jun, [facility] [address] [address] Jun, [facility] [address] [address] Jun, [facility] [address] [address] Jun, [facility] [place] [facility] [address] [facility] [id number] [place] [address] Jun, [facility] [place] [facility] [address] [facility] [id number] [place] [address] May, 2014 [facility] [place] [facility] [address] [facility] [id number] [place] [address] May, 2014 [facility] [place] [facility] [address] [facility] [id number] [place] [address] May, 2014 [facility] [place] [facility] [address] [facility] [id number] [place] [address] May, 2014 [facility] [place] [facility] [address] [facility] [id number] [place] [address] May, 2014 [facility] [place] [facility] [address] [place] [id number] [place] [address] May, 2014 [facility] [place] [facility] [address] [facility] [id number] [place] [address] May, 2014 [facility] [place] [facility] [address] [facility] [id number] [place] [address] May, 2014 [facility] [place] [facility] [address] [facility] [id number] [place] [address] May, 2014 [facility] [place] [facility] [address] [facility] [id number] [place] [address] May, 2014 [facility] [place] [facility] [address] [facility] [id number], [place] [address] May, 2014 [facility] [place] [facility] [address] [facility] [id number] [place] [address] May, 2014 [facility] [place] [facility] [address] [facility] [id number], [place] [address] May, 2014 [facility] [place] [facility] [address] [facility] [id number], [place] [address] Apr, [facility] [place] [facility] [address] [id number] [place] [address] Apr, [facility] [place] [facility] [address] [id number] [place] [address] Apr, [facility] [place] [facility] [address] [id number] [place] [address] Apr, [facility] [place] [facility] [address] [id number] [place] [address] Apr, [facility] [place] [facility] [address] [id number] [place] [address] Apr, [facility] [place] [facility] [address] [id number] [place] [address] Apr, [facility] [place] [facility] [address] [id number] [place] [address] Mar, [facility] [place] [facility] [address] [id number] [place] [address] Mar, [facility] [place] [facility] [address] [id number] [place] [address] Mar, [facility] [place] [facility] [address] [id number] [place] [address] Mar, [facility] [place] [facility] [address] [id number] [place] [address] Mar, [facility] [place] [facility] [address] [id number] [place] [address] Mar, [facility] [place] [facility] [address] [id number] [place] [address] Feb, [facility] [place] [facility] [address] [id number] [place] [address] Feb, [facility] [place] [facility] [address] [id number] [place] [address] Feb, [facility] [place] [facility] [address] [id number], [place] [address] Feb, [facility] [place] [facility] [address] [id number] [place] [address] Feb, [facility] [place] [facility] [address] [id number] [place] [address] Feb, [facility] [place] [facility] [address] [id number] [place] [address] Jan, [facility] [place] [facility] [address] [id number] [place] [address] Jan, [facility] [place] [facility] [address] [id number] [place] [address] Jan, [facility] [place] [facility] [address] [id number] [place] [address] Jan, [facility] [place] [facility] [address] [id number] [place] [address] Jan, [facility] [place] [facility] [address] [id number] [place] [address] Jan, [facility] [place] [facility] [address] [id number] [place] [address] Jan, [facility] [place] [facility] [address] [id number] [place] [address] Jan, [facility] [place] [facility] [address] [id number], [place] [address] Dec, [facility] [place] [facility] [address] [id number], [place] [address] 25 Dec, 2013 [facility] [place] [facility] [address] [id number] [place] [address] 23 Dec, 2013 [facility] [place] [facility] [address] [id number] [place] [address] 23 Dec, 2013 [facility] [place] [facility] [address] [id number] [place] [address] 13 Dec, 2013 [facility] [place] [facility] [address] [id number] [place] [address] Dec, [facility] [place] [facility] [address] [id number] [place] [address] Dec, [facility] [place] [facility] [address] [id number] [place] [address] Nov, [facility] [place] [facility] [address] [id number] [place] [address] Nov, [facility] [place] [facility] [address] [id number] [place] [address] Oct, [facility] [place] [facility] [address] [id number] [place] [address] Oct, [facility] [place] [facility] [address] [id number] [place] [address] Oct, [facility] [place] [facility] [address] [id number] [place] [address] Oct, [facility] [place] [facility] [address] [id number] [place] [address] Sep, [facility] [place] [facility] [address] [id number] [place] [address] Sep, [facility] [place] [facility] [address] [id number] [place] [address] Sep, [facility] [place] [facility] [address] [id number] [place] [address] Sep, [facility] [place] [facility] [address] [id number] [place] [address] Sep, [facility] [place] [facility] [address] [id number] [place] [address] Sep, [facility] [place] [facility] [address] [id number] [place] [address] Sep, [facility] [place] [facility] [address] [id number] [place] [address] Sep, [facility] [place] [facility] [address] [id number] [place] [address] August, [facility] [place] [facility] [address] [id number] [place] [address] August, [facility] [place] [facility] [address] [id number] [place] [address] August, [facility] [place] [facility] [address] [id number] [place] [address] August, [facility] [place] [facility] [address] [id number] [place] [address] Jul, [facility] [place] [facility] [address] [id number] [place] [address] Jul, [facility] [place] [facility] [address] [id number] [place] [address] Jul, [facility] [place] [facility] [address] [id number] [place] [address] Jul, [facility] [place] [facility] [address] [id number] [place] [address] Jul, [facility] [place] [facility] [address] [id number] [place] [address] 16 Jul, 2013 [facility] [place] [facility] [address] [id number] [place] [address] 15 Jul, 2013 [facility] [place] [facility] [address] [id number] [place] [address] 15 Jul, 2013 [facility] [place] [facility] [address] [id number] [place] [address] Jun, [facility] [place] [facility] [address] [id number] [place] [address] Jun, [facility] [place] [facility] [address] [id number] [place] [address] Jun, [facility] [place] [facility] [address] [id number] [place] [address] Jun, [facility] [address] [id number] [place] [address] Jun, [facility] [place] [facility] [address] [id number] [place] [address] Jun, [facility] [place] [facility] [address] [id number] [place] [address] Jun, [facility] [place] [facility] [address] [id number] [place] [address] Jun, [facility] [place] [facility] [address] [id number] [place] [address] May, [facility] [place] [facility] [address] [id number] [place] [address] May, [facility] [address] [id number] [place] [address] Apr, [facility] [place] [facility] [address] [id number] [place] [address] Apr, [facility] [place] [facility] [address] [id number] [place] [address] Mar, [facility] [place] [facility] [address] [id number] [place] [address] 24 Mar, 2013 [facility] [place] [facility] [address] [id number] [place] [address] 19 Mar, 2013 [facility] [place] [facility] [address] [id number] [place] [address] 18 Mar, 2013 [facility] [place] [facility] [address] [id number] [place] [address] 18 Mar, 2013 [facility] [place] [facility] [address] [id number] [place] [address] 17 Mar, 2013 [facility] [place] [facility] [address] [id number] [place] [address] 17 Mar, 2013 [facility] [place] [facility] [address] [id number] [place] [address] Feb, [facility] [place] [facility] [address] [id number] [place] [address] Feb, [facility] [place] [facility] [address] [id number] [place] [address] Feb, [facility] [place] [facility] [address] [id number] [place] [address] Feb, [facility] [place] [facility] [address] [id number] [place] [address] Feb, [facility] [place] [facility] [address] [id number] [place] [address] Feb, [facility] [place] [facility] [address] [id number] [place] [address] Dec, [facility] [place] [facility] [address] [id number] [place] [address] 18 Dec, 2012 [facility] [place] [facility] [address] [id number] [place] [address] Dec, [facility] [place] [facility] [address] [id number] [place] [address] Dec, [facility] [place] [facility] [address] [id number] [place] [address] Dec, [facility] [place] [facility] [address] [id number] [place] [address] Nov, [facility] [place] [facility] [address] [id number] [place] [address] Nov, [facility] [place] [facility] [address] [id number] [place] [address] Oct, [facility] [place] [facility] [address] [id number] [place] [address] August, [facility] [place] [facility] [address] [id number] [place] [address] August, [facility] [address] [id number] [place] [address] August, [facility] [place] [facility] [address] [id number] [place] [address] Jul, [facility] [place] [facility] [address] [facility] [id number] [place] [address] Jul, [facility] [place] [facility] [address] [id number] [place] [address] Jul, [facility] [place] [facility] [address] [id number] [place] [address] Jun, [facility] [place] [facility] [address] [facility] [id number] [place] [address] Jun, [facility] [place] [facility] [address] [facility] [id number] [place] [address] Jun, [facility] [place] [facility] [address] [id number] [place] [address] Jun, [facility] [place] [facility] [address] [id number] [place] [address] Jun, [facility] [place] [facility] [address] [facility] [id number] [place] [address] Jun, [facility] [place] [facility] [address] [id number] [place] [address] Jun, [facility] [place] [facility] [address] [id number] [place] [address] May, [facility] [place] [facility] [address] [id number] [place] [address] May, [facility] [place] [facility] [address] [id number] [place] [address] May, [facility] [place] [facility] [address] [facility] [id number] [place] [address] May, [facility] [place] [facility] [address] [id number] [place] [address] Apr, [facility] [place] [facility] [address] [id number] [place] [address] Apr, [facility] [place] [facility] [address] [id number] [place] [address] Apr, [facility] [place] [facility] [address] [id number] [place] [address] Mar, [facility] [place] [facility] [address] [id number] [place] [address] Mar, [facility] [place] [facility] [address] [id number] [place] [address] Mar, [facility] [place] [facility] [address] [id number] [place] [address] Mar, [facility] [place] [facility] [address] [id number] [place] [address] Mar, [facility] [place] [facility] [address] [id number] [place] [address] Mar, [facility] [place] [facility] [address] [id number] [place] [address] Mar, [facility] [place] [facility] [address] [id number] [place] [address] Mar, [facility] [place] [facility] [address] [id number] [place] [address] Feb, [facility] [place] [facility] [address] [id number] [place] [address] Feb, [facility] [place] [facility] [address] [id number] [place] [address] Feb, [facility] [place] [facility] [address] [id number] [place] [address] Jan, [facility] [place] [facility] [address] [id number] [place] [address] Jan, [facility] [place] [facility] [address] [id number] [place] [address] Jan, [facility] [place] [facility] [address] [id number] [place] [address] Jan, [facility] [place] [facility] [address] [id number] [place] [address] Jan, [facility] [place] [facility] [address] [id number] [place] [address] Jan, [facility] [place] [facility] [address] [id number] [place] [address] Jan, [facility] [place] [facility] [address] [id number] [place] [address] Dec, [facility] [place] [facility] [address] [id number] [place] [address] 24 Dec, 2011 [facility] [place] [facility] [address] [id number] [place] [address] Dec, [facility] [place] [facility] [address] [id number] [place] [address] Nov, [facility] [place] [facility] [address] [id number] [place] [address] Nov, [facility] [place] [facility] [address] [id number], [place] [address] Nov, [facility] [place] [facility] [address] [id number], [place] [address] Nov, [facility] [place] [facility] [address] [id number] [place] [address] Oct, [facility] [place] [facility] [address] [id number], [place] [address] Oct, [facility] [place] [facility] [address] [id number] [place] [address] Oct, [facility] [place] [facility] [address] [id number] [place] [address] 18 Sep, 2011 [facility] [place] [facility] [address] [id number] [place] [address] 16 Sep, 2011 [facility] [place] [facility] [address] [id number] [place] [address] 13 Sep, 2011 [facility] [place] [facility] [address] [id number] [place] [address] 11 Sep, 2011 [facility] [place] [facility] [address] [id number] [place] [address] 07 Sep, 2011 [facility] [place] [facility] [address] [id number] [place] [address] Sep, [facility] [place] [facility] [address] [id number] [place] [address] August, [facility] [place] [facility] [address] [id number] [place] [address] Jul, [facility] [place] [facility] [address] [id number] [place] [address] 18 Jul, 2011 [facility] [place] [facility] [address] [id number] [place] [address] Jul, [facility] [place] [facility] [address] [id number] [place] [address] 05 Jul, 2011 [facility] [place] [facility] [address] [id number] [place] [address] 04 Jul, 2011 [facility] [place] [facility] [address] [id number] [place] [address] 29 Jun, 2011 [facility] [place] [facility] [address] [id number] [place] [address] 27 Jun, 2011 [facility] [place] [facility] [address] [id number] [place] [address] 15 Jun, 2011 [facility] [place] [facility] [address] [id number] [place] [address] 15 Jun, 2011 [facility] [place] [facility] [address] [id number] [place] [address] Jun, [facility] [place] [facility] [address] [id number] [place] [address] May, [facility] [place] [facility] [address] [id number] [place] [address] May, [facility] [place] [facility] [address] [id number] [place] [address] May, [facility] [place] [facility] [address] [id number] [place] [address] May, [facility] [place] [facility] [address] [id number] [place] [address] May, [facility] [place] [facility] [address] [id number] [place] [address] May, [facility] [place] [facility] [address] [id number] [place] [address] May, [facility] [place] [facility] [address] [id number] [place] [address] Apr, [facility] [place] [facility] [address] [id number] [place] [address] Mar, [facility] [place] [facility] [address] [id number] [place] [address] Mar, [facility] [place] [facility] [address] [id number] [place] [address] Mar, [facility] [place] [facility] [address] [id number] [place] [address] Mar, [facility] [place] [facility] [address] [id number] [place] [address] Mar, [facility] [place] [facility] [address] [id number] [place] [address] Feb, [facility] [place] [facility] [address] [id number] [place] [address] 14 Feb, 2011 [facility] [place] [facility] [address] [id number] [place] [address] 14 Feb, 2011 [facility] [place] [facility] [address] [id number] [place] [address] 14 Feb, 2011 [facility] [place] [facility] [address] [id number] [place] [address] 07 Feb, 2011 [facility] [place] [facility] [address] [id number] [place] [address] 04 Feb, 2011 [facility] [place] [facility] [address] [id number] [place] [address] 04 Feb, 2011 [facility] [place] [facility] [address] [id number] [place] [address] 10 Jan, 2011 [facility] [place] [facility] [address] [id number] [place] [address] 12 Dec, 2010 [facility] [place] [facility] [address] [id number] [place] [address] 11 Oct, 2010 [facility] [place] [facility] [address] [id number] [place] [address] 10 Jun, 2010 [facility] [place] [facility] [address] [id number] [place] [address] 23 Mar, 2010 [facility] [place] [facility] [address] [id number] [place] [address] 23 Mar, 2010 [facility] [place] [facility] [address] [id number] [place] [address] 16 Mar, 2010 [facility] [place] [facility] [address] [id number] [place] [address] 16 Mar, 2010 [facility] [place] [facility] [address] [id number] [place] [address] 15 Mar, 2010 [facility] [place] [facility] [address] [id number] [place] [address] 10 Mar, 2010 [facility] [place] [facility] [address] [id number] [place] [address] 10 Mar, 2010 [facility] [address] [id number] [place] [address] 05 Mar, 2010 [facility] [place] [facility] [address] [id number] [place] [address] Mar, [facility] [place] [facility] [address] [id number] [place] [address] Mar, [facility] [place] [facility] [address] [id number] [place] [address] Jan, [facility] [place] [facility] [address] [id number] [place] [address] Jan, [facility] [address] [id number] [place] [address] Jan, [facility] [address] [id number] [place] [address] Nov, [facility] [address] [id number] [place] [address] Oct, [facility] [address] [id number] [place] [address] Mar, [facility] [place] [facility] [address] [id number] [place] [address] Mar, [facility] [place] [facility] [address] [id number] [place] [address] Mar, [facility] [place] [facility] [address] [id number] [place] [address] Mar, [facility] [place] [facility] [address] [id number] [place] [address] Dec, [facility] [place] [facility] [address] [id number] [place] [address] August, [facility] [place] [facility] [address] [id number] [place] [address] August, [facility] [address] [facility] [id number] [place] [address] Jul, [facility] [address] [facility] [id number] [place] [address] Jan, [facility] [address] [facility] [id number] [place] [address] Jan, IMMUNIZATIONS No Known Immunizations SOCIAL HISTORY Never Assessed REASON FOR VISIT EMR-[facility] [place] PLAN OF CARE VITAL SIGNS MEDICATIONS No Known Medications RESULTS No Results PROCEDURES No Known [...]
--- OUTSIDE RECORDS SUMMARY | 2018-09-22 02:38 | XMS REPORT ---
Author Author FLORENTINEZEKIEL PUCKETT Organization [facility] Address [address] [place] [address] Care Team Providers Care Scrubber System Attendant Name Role Phone DANICA LERMAY Unavailable PROBLEMS Type Condition ICD9-CM Code [id number] Code Onset Dates Condition Status SNOMED Code Problem Vitamin D deficiency E55.9 Active 80070807 Problem Chronic gastritis without bleeding, unspecified gastritis type K29.50 Active 2724065 Problem Osteoporosis M81.0 Active 16283278 Problem Unspecified abdominal pain R10.9 Active 504453333 Problem Fibromyalgia M79.7 Active 49299491 Problem Chronic pain syndrome G89.4 Active 974382673 Problem Chronic tension-type headache, not intractable G44.229 Active 548668694 Problem RUQ abdominal pain R10.11 Active 669323224 Problem Pancytopenia D61.818 Active 853176690 Problem Right sided sciatica M54.31 Active 94150357 Problem Hypothyroidism, unspecified hypothyroidism type E03.9 Active 46928248 Problem Drug induced constipation K59.03 Active 894567161246908 Problem Porokeratosis Q82.8 Active 372190186 Problem Chronic prescription opiate use Z79.891 Active 526061609 Problem Pure hypercholesterolemia E78.00 Active 984221820 Problem Leukopenia, unspecified type D72.819 Active 65007675 Problem History of hepatitis C Z86.19 Active 63619461678939 Problem Allergic rhinitis, unspecified allergic rhinitis type J30.9 Active 50160777 Problem Chronic obstructive pulmonary disease, unspecified COPD type J44.9 Active 02683999 Problem Allergy to intravenous contrast Z91.041 Active 806012112 Problem Other constipation K59.09 Active 631487322 Problem Atrial fibrillation, unspecified type I48.91 Active 63367017 Problem 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 Active 857198279 Problem Major depression, recurrent F33.9 Active 53223975 Problem Primary insomnia F51.01 Active 0126214 Problem Hot flashes N95.1 Active 491546436 Problem Vaginal atrophy N95.2 Active 763520712 Problem Polyneuropathy associated with underlying disease G63 Active 695507599 Problem Trigger point with back pain M54.9 Active 612490118 Problem Low back pain M54.5 Active 776710891 Problem Plantar fasciitis M72.2 Active 845391262 ALLERGIES No Information ENCOUNTERS Encounter Location Date Diagnosis [place] [address] [address] Mar, [place] [address] [address] Mar, Chronic pain syndrome G89.4 [facility] [address] [address] Feb, Sore throat and laryngitis J06.0 ; Acute streptococcal pharyngitis J02.0 ; Dog scratch W54.8XXA and Cellulitis L03.90 [place] [address] [address] Feb, Acute maxillary sinusitis J01.00 [place] [address] [address] Feb, Hypothyroidism, unspecified hypothyroidism type E03.9 [place] [address] [address] Feb, Chronic pain syndrome G89.4 [place] [address] [address] Jan, Fibromyalgia M79.7 ; Chronic pain syndrome G89.4 ; Low back pain M54.5 ; Hypothyroidism, unspecified hypothyroidism type E03.9 ; Leukopenia, unspecified type D72.819 ; Pure hypercholesterolemia E78.00 ; Right upper quadrant pain R10.11 ; Encounter for immunization Z23 ; Chronic gastritis without bleeding, unspecified gastritis type K29.50 ; Chronic prescription opiate use Z79.891 and BMI 28.0-28.9,adult Z68.28 [place] [address] [place] [address] Jan, Chronic pain syndrome G89.4 [place] [address] [place] [id number] [place] [address] Dec, Chronic pain syndrome G89.4 [facility] [address] [place] [id number] [place] [address] Nov, Onychocryptosis L60.0 [place] [address] [address] Nov, Chronic pain syndrome G89.4 [place] [address] [place] [id number] [place] [address] Nov, Trochanteric bursitis of both hips M70.61 [place] [address] [place] [id number] [place] [address] Oct, Hypothyroidism, unspecified hypothyroidism type E03.9 and Atrial fibrillation, unspecified type I48.91 [place] [address] [place] [id number] [place] [address] Oct, Fibromyalgia M79.7 ; Chronic pain syndrome G89.4 ; Hypothyroidism, unspecified hypothyroidism type E03.9 ; Overweight (BMI 25.0-29.9) E66.3 and Atrial fibrillation, unspecified type I48.91 [place] [address] [place] [id number] [place] [address] Oct, Chronic pain syndrome G89.4 [place] [address] [place] [id number] [place] [address] Sep, Chronic pain syndrome G89.4 [place] [address] [place] [id number] [place] [address] August, Somatic dysfunction of lumbar region M99.03 and Somatic dysfunction of pelvis region M99.05 [place] [address] [place] [id number] [place] [address] August, Chronic pain syndrome G89.4 [place] [address] [place] [id number] [place] [address] Jul, Trochanteric bursitis of left hip M70.62 and Trochanteric bursitis, right hip M70.61 [facility] [address] [place] [id number] [place] [address] Jul, [place] [address] [place] [id number] [place] [address] Jul, Chronic pain syndrome G89.4 [place] [address] [place] [id number] [place] [address] Jul, Hypothyroidism, unspecified hypothyroidism type E03.9 [place] [address] [place] [id number] [place] [address] Jul, Hypothyroidism, unspecified hypothyroidism type E03.9 [place] [address] [place] [id number] [place] [address] Jul, Chronic tension-type headache, not intractable G44.229 ; Atrial fibrillation, unspecified type I48.91 ; Chronic pain syndrome G89.4 ; Hypothyroidism, unspecified hypothyroidism type E03.9 ; Pancytopenia D61.818 ; History of hepatitis C Z86.19 ; Vaginal atrophy N95.2 ; RUQ abdominal pain R10.11 ; Chronic prescription opiate use Z79.891 ; Osteoporosis M81.0 and Screening for breast cancer Z12.31 [place] [address] [place] [id number] [place] [address] Jun, [place] [address] [place] [id number] [place] [address] May, [place] [address] [place] [id number] [place] [address] May, [facility] [address] [place] [id number] [place] [address] May, [place] [address] [place] [id number] [place] [address] Apr, [place] [id number] [place] [address] Apr, Hypothyroidism, unspecified hypothyroidism type E03.9 [place] [address] [place] [id number] [place] [address] Apr, Hypothyroidism, unspecified hypothyroidism type E03.9 and Leukopenia, unspecified type D72.819 [place] [address] [address] Mar, [place] [address] [place] [id number] [place] [address] Mar, Leukopenia, unspecified type D72.819 [place] [address] [place] [id number] [place] [address] Mar, Hypothyroidism, unspecified hypothyroidism type E03.9 and Low hemoglobin D64.9 [place] [address] [place] [id number] [place] [address] Mar, Hypothyroidism, unspecified hypothyroidism type E03.9 [place] [address] [place] [id number] [place] [address] Mar, Osteoporosis M81.0 ; Low hemoglobin D64.9 and Hypothyroidism, unspecified hypothyroidism type E03.9 [place] [address] [place] [id number] [place] [address] Mar, Hypothyroidism, unspecified hypothyroidism type E03.9 ; Bilirubin in urine R82.2 and Pancytopenia D61.818 [place] [id number] [place] [address] Feb, [facility] [address] [place] [id number] [place] [address] 18 Feb, 2017 Cough R05 and Bronchitis J40 [facility] [place] [address] [place] [id number] [place] [address] 14 Feb, 2017 Other viral agents as the cause of diseases classified elsewhere B97.89 and Acute upper respiratory infection, unspecified J06.9 [place] [address] [place] [id number] [place] [address] Feb, Fibromyalgia M79.7 ; Chronic pain syndrome G89.4 ; Hypothyroidism, unspecified hypothyroidism type E03.9 ; Primary insomnia F51.01 ; Osteoporosis M81.0 ; Vision abnormalities H53.9 ; Pancytopenia D61.818 ; BMI 28.0-28.9,adult Z68.28 and Encounter for immunization Z23 [place] [address] [address] Feb, Neuroma D36.10 and Capsulitis of right foot M77.[address] [address] Feb, [place] [address] [address] Feb, Hypothyroidism, unspecified hypothyroidism type E03.9 [place] [address] [address] Jan, [place] [address] [address] Jan, Atrial fibrillation, unspecified type I48.91 [place] [address] [address] Jan, [place] [address] [address] Jan, Fibromyalgia M79.7 ; Atrial fibrillation, unspecified type I48.91 ; Pain of left hand M79.642 ; Pain in right hand M79.641 ; Chronic prescription opiate use Z79.891 ; Chronic pain syndrome G89.4 ; Elevated fasting glucose R73.01 and Hypothyroidism, unspecified hypothyroidism type E03.9 [place] [address] [place] [id number] [place] [address] Jan, [place] [address] [address] Dec, Trochanteric bursitis of both hips M70.61 [facility] [address] [place] [id number] [place] [address] Dec, [facility] [address] [place] [id number] [place] [address] Dec, [facility] [address] [place] [id number] [place] [address] Nov, [facility] [address] [place] [id number] [place] [address] Nov, Unilateral headache R51 [facility] [address] [address] Nov, [facility] [address] [place] [id number] [place] [address] Oct, Unilateral headache R51 ; 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 and Allergy to intravenous contrast Z91.041 [facility] [address] [place] [id number] [place] [address] Oct, [facility] [address] [place] [id number] [place] [address] Oct, [facility] [address] [place] [id number] [place] [address] Sep, Hypothyroidism, unspecified hypothyroidism type E03.9 [facility] [address] [place] [id number] [place] [address] Sep, Hypothyroidism, unspecified hypothyroidism type E03.9 and Bilirubin in urine R82.2 [facility] [address] [place] [id number] [place] [address] Sep, Trochanteric bursitis of both hips M70.61 [facility] [address] [place] [id number] [place] [address] Sep, Hypothyroidism, unspecified hypothyroidism type E03.9 ; Dysuria R30.0 ; Chronic tension-type headache, not intractable G44.229 and Drug induced constipation K59.03 [facility] [address] [address] Sep, [facility] [address] [place] [id number] [place] [address] Sep, [facility] [address] [place] [id number] [place] [address] August, [facility] [address] [place] [id number] [place] [address] Jul, [facility] [address] [place] [id number] [place] [address] Jul, Trochanteric bursitis of right hip M70.61 [facility] [address] [place] [id number] [place] [address] Jul, Hypothyroidism, unspecified hypothyroidism type E03.9 [place] [address] [place] [id number] [place] [address] Jul, Fibromyalgia M79.7 ; Chronic pain syndrome G89.4 ; Hypothyroidism, unspecified hypothyroidism type E03.9 and Other constipation K59.09 [facility] [id number] [place] [address] Jun, Swollen tonsil J35.1 and Strep throat J02.0 [facility] [address] [place] [id number] [place] [address] Jun, [facility] [id number] [place] [address] Jun, Acute maxillary sinusitis J01.00 [facility] [address] [place] [id number] [place] [address] Jun, Hypothyroidism, unspecified hypothyroidism type E03.9 [facility] [id number] [place] [address] Jun, Chronic pain syndrome G89.4 ; Fibromyalgia M79.7 ; Hypothyroidism, unspecified hypothyroidism type E03.9 and Chronic prescription opiate use Z79.891 [place] [address] [place] [id number] [place] [address] 10 May, 2016 [place] [address] [place] [id number] [place] [address] Apr, Hypothyroidism, unspecified hypothyroidism type E03.9 [place] [address] [place] [id number] [place] [address] Apr, [place] [address] [place] [id number] [place] [address] Apr, Lipid screening Z13.220 and Hypothyroidism, unspecified hypothyroidism type E03.9 [place] [address] [place] [id number] [place] [address] Apr, [place] [address] [address] Mar, Trochanteric bursitis of both hips M70.61 [place] [address] [place] [id number] [place] [address] Mar, [place] [address] [address] Mar, Plantar fasciitis M72.2 and Porokeratosis Q82.8 [place] [address] [place] [id number] [place] [address] Feb, Lipid screening Z13.220 ; Vitamin D deficiency E55.9 and Hypothyroidism, unspecified hypothyroidism type E03.9 [place] [id number] [place] [address] 16 Feb, 2016 Chronic pain syndrome G89.4 ; Hypothyroidism, unspecified hypothyroidism type E03.9 ; Pancytopenia D61.818 ; Vaginal atrophy N95.2 ; Chronic gastritis without bleeding, unspecified gastritis type K29.50 ; Vitamin D deficiency E55.9 ; Chronic prescription opiate use Z79.891 ; Adverse effect of other opioids, initial encounter T40.2X5A ; Drug induced constipation K59.03 ; Lipid screening Z13.220 and Encounter for immunization Z23 [facility] [address] [place] [id number] [place] [address] Feb, [facility] [address] [place] [id number] [place] [address] Feb, Ingrown toenail L60.0 [facility] [address] [address] Jan, [facility] [address] [place] [id number] [place] [address] Jan, Trochanteric bursitis of both hips M70.61 [facility] [address] [address] Jan, [facility] [address] [place] [id number] [place] [address] Jan, [facility] [address] [place] [id number] [place] [address] Jan, [facility] [address] [place] [id number] [place] [address] Jan, Right sided sciatica M54.31 [facility] [address] [place] [id number] [place] [address] 23 Dec, 2015 Onychomycosis B35.1 [facility] [address] [place] [id number] [place] [address] Dec, [facility] [address] [place] [id number] [place] [address] Dec, [facility] [address] [address] 09 Dec, 2015 [facility] [address] [place] [id number] [place] [address] Dec, Osteoarthritis of right hip, unspecified osteoarthritis type M16.11 and Bursitis of right hip M70.71 [facility] [address] [address] Nov, [facility] [address] [place] [id number] [place] [address] Nov, [facility] [address] [place] [id number] [place] [address] Nov, [facility] [address] [place] [id number] [place] [address] Nov, Hypothyroidism, unspecified hypothyroidism type E03.9 ; Vitamin D deficiency E55.9 and History of hepatitis C Z86.19 [facility] [address] [place] [id number] [place] [address] Nov, Right upper quadrant pain R10.11 ; History of hepatitis C Z86.19 and Low back pain M54.5 [facility] [id number] [place] [address] Oct, Trochanteric bursitis, right hip M70.61 [facility] [address] [place] [id number] [place] [address] Oct, [facility] [address] [place] [id number] [place] [address] Oct, [facility] [id number] [place] [address] Oct, Trochanteric bursitis of both hips M70.61 and Right sided sciatica M54.31 [facility] [id number] [place] [address] Oct, Trochanteric bursitis of both hips M70.61 [facility] [address] [place] [id number] [place] [address] 14 Oct, 2015 RUQ abdominal pain R10.11 [facility] [id number] [place] [address] 13 Oct, 2015 Sciatic leg pain M54.30 [facility] [address] [place] [id number] [place] [address] Oct, RUQ abdominal pain R10.11 [place] [address] [address] 07 Oct, 2015 RUQ abdominal pain R10.11 ; History of hepatitis C Z86.19 and Trigger point with back pain M54.9 [place] [address] [address] Sep, [place] [address] [address] 09 Sep, 2015 Right sided sciatica M54.31 [place] [address] [address] 06 Sep, 2015 Hypothyroidism, unspecified hypothyroidism type E03.9 and Vitamin D deficiency E55.9 [place] [address] [address] Sep, Plantar fasciitis M72.2 and Porokeratosis Q82.8 [place] [address] [address] Sep, Hypothyroidism, unspecified hypothyroidism type E03.9 ; Chronic pain syndrome G89.4 ; Polyneuropathy associated with underlying disease G63 and Vitamin D deficiency E55.9 [place] [address] [place] [id number] [place] [address] August, [place] [address] [address] Jul, Plantar fasciitis M72.2 [place] [address] [address] Jul, Trochanteric bursitis, right hip M70.61 [place] [address] [place] [id number] [place] [address] Jul, Hypothyroidism, unspecified hypothyroidism type E03.9 [place] [address] [place] [address] Jul, Hypothyroidism, unspecified hypothyroidism type E03.9 ; Chronic pain syndrome G89.4 and Polyneuropathy associated with underlying disease G63 [place] [address] [place] [id number] [place] [address] 10 Jun, 2015 Trochanteric bursitis of both hips M70.61 [place] [address] [address] 08 Jun, 2015 Vitamin D deficiency E55.9 ; Osteoporosis M81.0 ; Low back pain M54.5 and Plantar fasciitis M72.2 [place] [address] [address] 26 May, 2015 Vitamin D deficiency E55.9 and Hypothyroidism, unspecified hypothyroidism type E03.9 [place] [address] [place] [id number] [place] [address] May, Acute maxillary sinusitis J01.00 [place] [address] [address] 18 May, 2015 Osteoporosis M81.0 and Hypothyroidism, unspecified hypothyroidism type E03.9 [place] [address] [place] [id number] [place] [address] 16 May, 2015 Osteoporosis M81.0 [place] [address] [place] [id number] [place] [address] 15 May, 2015 [place] [address] [address] Apr, [place] [address] [place] [id number] [place] [address] Apr, Trochanteric bursitis of both hips M70.61 [place] [address] [place] [id number] [place] [address] Apr, Hypothyroidism, unspecified hypothyroidism type E03.9 [place] [address] [address] Apr, Chronic pain syndrome G89.4 ; Bilateral low back pain with sciatica, sciatica laterality unspecified M54.40 ; Pain in right hip M25.551 ; Pain in left hip M25.552 ; Chronic prescription opiate use Z79.899 ; Primary insomnia F51.01 and Hypothyroidism, unspecified hypothyroidism type E03.9 [place] [address] [address] Mar, [place] [address] [address] Feb, [place] [address] [address] Feb, Chronic pain syndrome G89.4 and Major depression F32.9 [place] [address] [address] Feb, Fatigue R53.83 [place] [address] [address] Feb, History of fracture Z87.81 [place] [address] [address] Feb, Major depression, recurrent F33.9 and Generalized anxiety disorder F41.1 [place] [address] [address] Feb, [place] [address] [address] Jan, Hypothyroidism, unspecified hypothyroidism type E03.9 [place] [address] [place] [id number] [place] [address] Jan, Abdominal pain R10.9 and Hypothyroidism, unspecified hypothyroidism type E03.9 [place] [address] [place] [id number] [place] [address] Jan, Abdominal pain R10.9 [place] [address] [address] Jan, Hypothyroidism, unspecified hypothyroidism type E03.9 [place] [address] [place] [id number] [place] [address] Jan, [place] [address] [place] [id number] [place] [address] Jan, 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 and Hypothyroidism, unspecified hypothyroidism type E03.9 [place] [address] [place] [id number] [place] [address] Jan, 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 ; Abdominal pain R10.9 ; Dyspareunia N94.1 ; Encounter for immunization Z23 ; History of fracture Z87.81 ; Fatigue R53.83 ; Throat fullness R68.89 ; Bruises easily R23.8 ; Hot flashes N95.1 ; Depression F32.9 and Vaginal atrophy N95.2 [place] [id number] [place] [phone] Jan, Hypothyroidism, unspecified hypothyroidism type E03.9 [place] [address] [place] [id number] [place] [id number] 14 Jan, 2015 Unspecified abdominal pain R10.9 ; Chronic obstructive pulmonary disease, unspecified COPD type J44.9 ; Allergic rhinitis, unspecified allergic rhinitis type J30.9 ; Chronic pain syndrome G89.4 ; Hypothyroidism, unspecified hypothyroidism type E03.9 ; Chest pain, unspecified chest pain type R07.9 and Plantar fasciitis M72.2 [place] [address] [place] [id number] [place] [phone] Jan, Trochanteric bursitis of both hips M70.61 [place] [address] [place] [id number] [place] [phone] Dec, [place] [address] [phone] Nov, [place] [facility] [id number] [address] Nov, [facility] [id number], [place] [address] Nov, Constipation 564.00 [facility] [id number], [place] [address] Oct, Chronic pain 338.29 and Hypothyroidism 244.9 [facility] [id number] [place] [address] Oct, [facility] [id number] [place] [address] Sep, [facility] [id number] [place] [address] Sep, [facility] [id number] [place] [address] Sep, [facility] [id number], [place] [address] Sep, [facility] [id number], [place] [address] Sep, [facility] [id number], [place] [address] Sep, [facility] [id number], [place] [address] Sep, COPD exacerbation 491.21 ; Chronic pain 338.29 ; Hypothyroidism 244.9 and Pancytopenia 284.19 [facility] [id number], [place] [address] August, [facility] [id number] [address] Jul, [facility] [id number], [place] [address] Jul, [facility] [id number] [place] [address] Jun, [facility] [place] [facility] [address] [id number] [place] [address] Jun, [facility] [place] [facility] [address] [id number] [place] [address] Jun, [facility] [place] [facility] [address] [id number] [place] [address] Jun, [facility] [place] [facility] [address] [id number] [place] [address] Jun, [facility] [place] [facility] [address] [id number] [place] [address] May, [facility] [place] [facility] [address] [facility] [id number] [place] [address] May, [facility] [place] [facility] [address] [facility] [id number] [place] [address] May, [facility] [place] [facility] [address] [facility] [id number] [place] [address] May, [facility] [place] [facility] [address] [facility] [id number] [place] [address] May, [facility] [place] [facility] [address] [facility] [id number] [place] [address] May, [facility] [place] [facility] [address] [facility] [id number] [place] [address] May, 2014 [facility] [place] [facility] [address] [facility] [id number] [place] [address] May, 2014 [facility] [place] [facility] [address] [facility] [id number] [place] [address] May, [facility] [place] [facility] [address] [facility] [id number] [place] [address] May, 2014 [facility] [place] [facility] [address] [facility] [id number] [place] [address] May, [facility] [address] [id number] [place] [address] May, [facility] [place] [facility] [address] [id number] [place] [address] May, [facility] [place] [facility] [address] [facility] [id number] [place] [address] Apr, [facility] [place] [facility] [address] [id number] [place] [address] Apr, [facility] [place] [facility] [address] [id number] [place] [address] Apr, [facility] [place] [facility] [address] [id number] [place] [address] Apr, [facility] [address] [id number] [place] [address] Apr, [facility] [place] [facility] [address] [id number] [place] [address] Apr, [facility] [address] [id number] [place] [address] Apr, [facility] [place] [facility] [address] [facility] [id number] [place] [address] Mar, [facility] [place] [facility] [address] [id number] [place] [address] 31 Mar, 2014 [facility] [place] [facility] [address] [id number] [place] [address] 18 Mar, 2014 [facility] [place] [facility] [address] [id number] [place] [address] 18 Mar, 2014 [facility] [place] [facility] [address] [id number] [place] [address] Mar, [facility] [place] [facility] [address] [id number] [place] [address] Mar, [facility] [place] [facility] [address] [id number] [place] [address] Feb, [facility] [place] [facility] [address] [id number] [place] [address] Feb, [facility] [place] [facility] [address] [id number] [place] [address] Feb, [facility] [place] [facility] [address] [id number] [place] [address] Feb, [facility] [place] [facility] [address] [id number] [place] [address] Feb, [facility] [place] [facility] [address] [id number] [place] [address] Feb, [facility] [place] [facility] [address] [id number] [place] [address] Jan, [facility] [place] [facility] [address] [id number] [place] [address] Jan, [facility] [place] [facility] [address] [id number] [place] [address] Jan, [facility] [place] [facility] [address] [id number] [place] [address] Jan, [facility] [place] [facility] [address] [id number] [place] [address] Jan, [facility] [place] [facility] [address] [id number] [place] [address] Jan, [facility] [place] [facility] [address] [id number] [place] [address] Jan, [facility] [place] [facility] [address] [id number] [place] [address] Jan, [facility] [place] [facility] [address] [id number] [place] [address] Dec, [facility] [place] [facility] [address] [id number] [place] [address] Dec, [facility] [place] [facility] [address] [id number] [place] [address] Dec, [facility] [place] [facility] [address] [id number] [place] [address] Dec, [facility] [place] [facility] [address] [id number] [place] [address] Dec, [facility] [place] [facility] [address] [id number] [place] [address] Dec, [facility] [place] [facility] [address] [id number] [place] [address] Dec, [facility] [place] [facility] [address] [id number] [place] [address] Nov, [facility] [place] [facility] [address] [id number] [place] [address] Nov, [facility] [place] [facility] [address] [id number] [place] [address] Oct, [facility] [place] [facility] [address] [id number] [place] [address] Oct, [facility] [place] [facility] [address] [id number] [place] [address] Oct, [facility] [place] [facility] [address] [id number] [place] [address] Oct, [facility] [place] [facility] [address] [id number] [place] [address] Sep, [facility] [place] [facility] [address] [id number] [place] [address] Sep, [facility] [place] [facility] [address] [id number] [place] [address] Sep, [facility] [place] [facility] [address] [id number] [place] [address] Sep, [facility] [place] [facility] [address] [id number] [place] [address] Sep, [facility] [place] [facility] [address] [id number] [place] [address] Sep, [facility] [place] [facility] [address] [id number] [place] [address] Sep, [facility] [place] [facility] [address] [id number] [place] [address] Sep, [facility] [place] [facility] [address] [id number] [place] [address] August, [facility] [place] [facility] [address] [id number] [place] [address] August, [facility] [place] [facility] [address] [id number] [place] [address] August, [facility] [place] [facility] [address] [id number] [place] [address] August, [facility] [place] [facility] [address] [id number] [place] [address] Jul, [facility] [place] [facility] [address] [id number] [place] [address] 30 Jul, 2013 [facility] [place] [facility] [address] [id number] [place] [address] Jul, [facility] [place] [facility] [address] [id number] [place] [address] 24 Jul, 2013 [facility] [place] [facility] [address] [id number] [place] [address] 17 Jul, 2013 [facility] [place] [facility] [address] [id number] [place] [address] 16 Jul, 2013 [facility] [place] [facility] [address] [id number] [place] [address] 15 Jul, 2013 [facility] [place] [facility] [address] [id number] [place] [address] 15 Jul, 2013 [facility] [place] [facility] [address] [id number] [place] [address] Jun, [facility] [place] [facility] [address] [id number] [place] [address] Jun, [facility] [place] [facility] [address] [id number] [place] [address] Jun, [facility] [place] [facility] [address] [id number] [place] [address] Jun, [facility] [place] [facility] [address] [id number] [place] [address] Jun, [facility] [place] [facility] [address] [id number] [place] [address] Jun, [facility] [place] [facility] [address] [id number] [place] [address] Jun, [facility] [place] [facility] [address] [id number] [place] [address] Jun, [facility] [place] [facility] [address] [id number] [place] [address] May, [facility] [place] [facility] [address] [id number] [place] [address] May, [facility] [place] [facility] [address] [id number] [place] [address] Apr, [facility] [place] [facility] [address] [id number] [place] [address] Apr, [facility] [place] [facility] [address] [id number] [place] [address] Mar, [facility] [place] [facility] [address] [id number] [place] [address] Mar, [facility] [place] [facility] [address] [id number] [place] [address] Mar, [facility] [place] [facility] [address] [id number] [place] [address] 18 Mar, 2013 [facility] [place] [facility] [address] [id number] [place] [address] 18 Mar, 2013 [facility] [place] [facility] [address] [id number] [place] [address] Mar, [facility] [place] [facility] [address] [id number] [place] [address] Mar, [facility] [place] [facility] [address] [id number] [place] [address] Feb, [facility] [place] [facility] [address] [id number] [place] [address] Feb, [facility] [place] [facility] [address] [id number] [place] [address] Feb, [facility] [place] [facility] [address] [id number] [place] [address] Feb, [facility] [place] [facility] [address] [id number] [place] [address] Feb, [facility] [place] [facility] [address] [id number] [place] [address] 04 Feb, 2013 [facility] [place] [facility] [address] [id number] [place] [address] 26 Dec, 2012 [facility] [place] [facility] [address] [id number] [place] [address] 18 Dec, 2012 [facility] [place] [facility] [address] [id number] [address] 13 Dec, 2012 [facility] [place] [facility] [address] [id number] [place] [address] 13 Dec, 2012 [facility] [place] [facility] [address] [id number] [place] [address] 06 Dec, 2012 [facility] [place] [facility] [address] [id number] [place] [address] 30 Nov, 2012 [facility] [place] [facility] [address] [id number] [place] [address] Nov, [facility] [address] [id number] [place] [address] Oct, [facility] [address] [id number] [place] [address] August, [facility] [address] [id number] [place] [address] August, [facility] [address] [id number] [place] [address] August, [facility] [address] [id number] [place] [address] Jul, [facility] [address] [id number] [place] [address] Jul, [facility] [address] [id number] [place] [address] Jul, [facility] [address] [id number] [place] [address] Jun, [facility] [address] [id number] [place] [address] Jun, [facility] [address] [id number] [place] [address] Jun, [facility] [address] [id number] [place] [address] Jun, [facility] [address] [id number] [place] [address] Jun, [facility] [address] [id number] [place] [address] 15 Jun, 2012 [facility] [address] [id number] [place] [address] Jun, [facility] [address] [id number] [place] [address] May, [facility] [address] [id number] [place] [address] May, [facility] [place] [facility] [address] [id number] [place] [address] May, [facility] [place] [facility] [address] [id number] [place] [address] May, [facility] [place] [facility] [address] [id number] [place] [address] Apr, [facility] [address] [id number] [place] [address] Apr, [facility] [address] [id number] [place] [address] Apr, [facility] [place] [facility] [address] [id number] [place] [address] Mar, [facility] [place] [facility] [address] [id number] [place] [address] Mar, [facility] [place] [facility] [address] [id number] [place] [address] Mar, [facility] [place] [facility] [address] [id number] [place] [address] Mar, [facility] [place] [facility] [address] [id number] [place] [address] Mar, [facility] [place] [facility] [address] [id number], [place] [address] Mar, [facility] [place] [facility] [address] [id number] [place] [address] Mar, [facility] [place] [facility] [address] [id number] [place] [address] Mar, [facility] [place] [facility] [address] [id number] [place] [address] Feb, [facility] [place] [facility] [address] [id number] [place] [address] Feb, [facility] [place] [facility] [address] [id number] [place] [address] Feb, [facility] [place] [facility] [address] [id number] [place] [address] Jan, [facility] [place] [facility] [address] [id number] [place] [address] Jan, [facility] [place] [facility] [address] [id number] [place] [address] Jan, [facility] [place] [facility] [address] [id number] [place] [address] Jan, [facility] [place] [facility] [address] [id number] [place] [address] Jan, [facility] [place] [facility] [address] [facility] [id number] [place] [address] Jan, [facility] [place] [facility] [address] [id number] [place] [address] Jan, [facility] [place] [facility] [address] [id number] [place] [address] Dec, [facility] [place] [facility] [address] [facility] [id number] [place] [address] 24 Dec, 2011 [facility] [place] [facility] [address] [id number] [place] [address] 10 Dec, 2011 [facility] [place] [facility] [address] [id number] [place] [address] 30 Nov, 2011 [facility] [place] [facility] [address] [id number] [place] [address] Nov, [facility] [place] [facility] [address] [facility] [id number] [place] [address] Nov, [facility] [place] [facility] [address] [id number] [place] [address] Nov, [facility] [place] [facility] [address] [id number] [place] [address] Oct, [facility] [place] [facility] [address] [id number] [place] [address] Oct, [facility] [place] [facility] [address] [id number] [place] [address] Oct, [facility] [place] [facility] [address] [id number] [place] [address] Sep, [facility] [address] [id number] [place] [address] Sep, [facility] [place] [facility] [address] [id number] [place] [address] Sep, [facility] [address] [id number] [place] [address] Sep, [facility] [place] [facility] [address] [id number] [place] [address] Sep, [facility] [place] [facility] [address] [id number] [place] [address] Sep, [facility] [place] [facility] [address] [id number] [place] [address] August, [facility] [place] [facility] [address] [id number] [place] [address] Jul, [facility] [place] [facility] [address] [id number] [place] [address] Jul, [facility] [place] [facility] [address] [id number] [place] [address] Jul, [facility] [place] [facility] [address] [id number] [place] [address] Jul, [facility] [place] [facility] [address] [id number] [place] [address] Jul, [facility] [place] [facility] [address] [id number] [place] [address] 29 Jun, 2011 [facility] [address] [id number] [place] [address] Jun, [facility] [place] [facility] [address] [id number] [place] [address] Jun, [facility] [place] [facility] [address] [facility] [id number] [place] [address] Jun, [facility] [place] [facility] [address] [id number] [place] [address] Jun, [facility] [place] [facility] [address] [id number] [place] [address] May, [facility] [place] [facility] [address] [id number] [place] [address] May, [facility] [address] [facility] [id number] [place] [address] May, [facility] [place] [facility] [address] [facility] [id number] [place] [address] May, [facility] [place] [facility] [address] [facility] [id number] [place] [address] May, [facility] [place] [facility] [address] [facility] [id number] [place] [address] May, [facility] [place] [facility] [address] [facility] [id number] [place] [address] May, [facility] [place] [facility] [address] [id number] [place] [address] Apr, [facility] [place] [facility] [address] [id number] [place] [address] Mar, [facility] [place] [facility] [address] [facility] [id number] [place] [address] Mar, [facility] [place] [facility] [address] [facility] [id number], [place] [address] Mar, [facility] [place] [facility] [address] [id number] [place] [address] Mar, [facility] [place] [facility] [address] [id number] [place] [address] Mar, [facility] [place] [facility] [address] [id number] [place] [address] Feb, [facility] [place] [facility] [address] [id number] [place] [address] Feb, [facility] [place] [facility] [address] [id number] [place] [address] Feb, [facility] [place] [facility] [address] [id number] [place] [address] Feb, [facility] [place] [facility] [address] [id number] [place] [address] Feb, [facility] [place] [facility] [address] [id number] [place] [address] Feb, [facility] [place] [facility] [address] [id number] [place] [address] Feb, [facility] [place] [facility] [address] [id number] [place] [address] Jan, [facility] [place] [facility] [address] [id number] [place] [address] Dec, [facility] [place] [facility] [address] [id number] [place] [address] Oct, [facility] [place] [facility] [address] [id number] [place] [address] Jun, [facility] [place] [facility] [address] [id number] [place] [address] Mar, [facility] [place] [facility] [address] [id number] [place] [address] Mar, [facility] [place] [facility] [address] [id number], [place] [address] 16 Mar, 2010 [facility] [address] [id number] [place] [address] 16 Mar, 2010 [facility] [place] [facility] [address] [id number] [place] [address] 15 Mar, 2010 [facility] [address] [id number] [place] [address] 10 Mar, 2010 [facility] [place] [facility] [address] [id number] [place] [address] 10 Mar, 2010 [facility] [address] [id number] [place] [address] 05 Mar, 2010 [facility] [address] [id number] [place] [address] 03 Mar, 2010 [facility] [address] [id number] [place] [address] 02 Mar, 2010 [facility] [place] [facility] [address] [id number] [place] [address] Jan, [facility] [address] [id number] [place] [address] Jan, [facility] [place] [facility] [address] [id number] [place] [address] Jan, [facility] [address] [id number], [place] [address] Nov, [facility] [place] [facility] [address] [id number], [place] [address] 13 Oct, 2009 [facility] [place] [facility] [address] [id number] [place] [address] 31 Mar, 2009 [facility] [place] [facility] [address] [id number] [place] [address] 20 Mar, 2009 [facility] [place] [facility] [address] [id number] [place] [address] 17 Mar, 2009 [facility] [place] [facility] [address] [facility] [id number] [place] [address] Mar, [facility] [address] [id number] [address] Dec, [facility] [address] [id number], [place] [address] August, [facility] [address] [id number], [place] [address] August, [facility] [address] [id number], [place] [address] Jul, [facility] [address] [id number], [place] [address] Jan, [facility] [address] [id number], [place] [address] Jan, IMMUNIZATIONS No Known Immunizations SOCIAL HISTORY Never Assessed REASON FOR VISIT Controlled Refill 03/21 PLAN OF CARE VITAL SIGNS MEDICATIONS Medication Instructions Dosage Frequency Start Date End Date Duration Status Hydrocodone-Acetaminophen 10-325 MG Orally 2 times a day 1 tablet as needed 12h Mar, 28 days Active RESULTS No Results PROCEDURES No Known [...]
--- OUTSIDE RECORDS SUMMARY | 2018-09-22 02:39 | XMS REPORT ---
Author Author RASHEL AYALA Organization 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 Role Phone RASHEL AYALA Unavailable PROBLEMS Type Condition ICD9-CM Code [id number] Code Onset Dates Condition Status SNOMED Code Problem Vitamin D deficiency E55.9 Active 13097613 Problem Chronic gastritis without bleeding, unspecified gastritis type K29.50 Active 5103905 Problem Osteoporosis M81.0 Active 62070605 Problem Unspecified abdominal pain R10.9 Active 388825266 Problem Fibromyalgia M79.7 Active 31006228 Problem Chronic pain syndrome G89.4 Active 377501449 Problem Chronic tension-type headache, not intractable G44.229 Active 233808667 Problem RUQ abdominal pain R10.11 Active 089149678 Problem Pancytopenia D61.818 Active 269162756 Problem Right sided sciatica M54.31 Active 06373921 Problem Hypothyroidism, unspecified hypothyroidism type E03.9 Active 41982900 Problem Drug induced constipation K59.03 Active [id number] Problem Porokeratosis Q82.8 Active 432363421 Problem Chronic prescription opiate use Z79.891 Active 667649003 Problem Pure hypercholesterolemia E78.00 Active 714401070 Problem Leukopenia, unspecified type D72.819 Active 73344270 Problem History of hepatitis C Z86.19 Active 08736992383372 Problem Allergic rhinitis, unspecified allergic rhinitis type J30.9 Active 13065499 Problem Chronic obstructive pulmonary disease, unspecified COPD type J44.9 Active 95942684 Problem Allergy to intravenous contrast Z91.041 Active 630971967 Problem Other constipation K59.09 Active 613243198 Problem Atrial fibrillation, unspecified type I48.91 Active 58503658 Problem 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 Active 159461116 Problem Major depression, recurrent F33.9 Active 91993546 Problem Primary insomnia F51.01 Active 5392991 Problem Hot flashes N95.1 Active 710612026 Problem Vaginal atrophy N95.2 Active 196504297 Problem Polyneuropathy associated with underlying disease G63 Active 269162713 Problem Trigger point with back pain M54.9 Active 495149385 Problem Low back pain M54.5 Active 252270298 Problem Plantar fasciitis M72.2 Active 147242982 ALLERGIES Substance Reaction Event Type Date Status Diazepam Unknown Drug Allergy Feb, Active CT Dye Unknown Non Drug Allergy Feb, Active ENCOUNTERS Encounter Location Date Diagnosis [facility] [address] [address] Feb, Sore throat and laryngitis J06.0 ; Acute streptococcal pharyngitis J02.0 ; Dog scratch W54.8XXA and Cellulitis L03.90 [facility] [address] [address] Feb, Acute maxillary sinusitis J01.00 [place] [address] [address] Feb, Hypothyroidism, unspecified hypothyroidism type E03.9 [place] [address] [address] Feb, Chronic pain syndrome G89.4 [place] [address] [address] Jan, Fibromyalgia M79.7 ; Chronic pain syndrome G89.4 ; Low back pain M54.5 ; Hypothyroidism, unspecified hypothyroidism type E03.9 ; Leukopenia, unspecified type D72.819 ; Pure hypercholesterolemia E78.00 ; Right upper quadrant pain R10.11 ; Encounter for immunization Z23 ; Chronic gastritis without bleeding, unspecified gastritis type K29.50 ; Chronic prescription opiate use Z79.891 and BMI 28.0-28.9,adult Z68.28 [facility] [address] [place] [address] Jan, Chronic pain syndrome G89.4 [place] [address] [address] Dec, Chronic pain syndrome G89.4 [place] [address] [place] [id number] [place] [address] Nov, Onychocryptosis L60.0 [place] [address] [place] [id number] [place] [address] Nov, Chronic pain syndrome G89.4 [place] [address] [address] Nov, Trochanteric bursitis of both hips M70.61 [place] [address] [place] [id number] [place] [address] Oct, Hypothyroidism, unspecified hypothyroidism type E03.9 and Atrial fibrillation, unspecified type I48.91 [place] [address] [place] [id number] [place] [address] Oct, Fibromyalgia M79.7 ; Chronic pain syndrome G89.4 ; Hypothyroidism, unspecified hypothyroidism type E03.9 ; Overweight (BMI 25.0-29.9) E66.3 and Atrial fibrillation, unspecified type I48.91 [place] [address] [place] [id number] [place] [address] Oct, Chronic pain syndrome G89.4 [place] [address] [place] [id number] [place] [address] Sep, Chronic pain syndrome G89.4 [place] [address] [place] [id number] [place] [address] August, Somatic dysfunction of lumbar region M99.03 and Somatic dysfunction of pelvis region M99.05 [place] [address] [place] [id number] [place] [address] August, Chronic pain syndrome G89.4 [place] [address] [place] [id number] [place] [address] Jul, Trochanteric bursitis of left hip M70.62 and Trochanteric bursitis, right hip M70.61 [facility] [address] [address] Jul, [facility] [address] [place] [id number] [place] [address] Jul, Chronic pain syndrome G89.4 [facility] [address] [place] [id number] [place] [address] Jul, Hypothyroidism, unspecified hypothyroidism type E03.9 [facility] [address] [place] [id number] [place] [address] Jul, Hypothyroidism, unspecified hypothyroidism type E03.9 [place] [address] [place] [id number] [place] [address] Jul, Chronic tension-type headache, not intractable G44.229 ; Atrial fibrillation, unspecified type I48.91 ; Chronic pain syndrome G89.4 ; Hypothyroidism, unspecified hypothyroidism type E03.9 ; Pancytopenia D61.818 ; History of hepatitis C Z86.19 ; Vaginal atrophy N95.2 ; RUQ abdominal pain R10.11 ; Chronic prescription opiate use Z79.891 ; Osteoporosis M81.0 and Screening for breast cancer Z12.31 [place] [address] [place] [id number] [place] [address] Jun, [facility] [address] [place] [id number] [place] [address] May, [facility] [address] [place] [id number] [place] [address] May, [facility] [id number] [place] [address] May, [facility] [address] [place] [id number] [place] [address] Apr, [facility] [id number] [place] [address] Apr, Hypothyroidism, unspecified hypothyroidism type E03.9 [place] [address] [place] [id number] [place] [address] Apr, Hypothyroidism, unspecified hypothyroidism type E03.9 and Leukopenia, unspecified type D72.819 [place] [address] [place] [id number] [place] [address] Mar, [place] [address] [address] Mar, Leukopenia, unspecified type D72.819 [place] [address] [address] Mar, Hypothyroidism, unspecified hypothyroidism type E03.9 and Low hemoglobin D64.9 [place] [address] [address] Mar, Hypothyroidism, unspecified hypothyroidism type E03.9 [place] [address] [address] Mar, Osteoporosis M81.0 ; Low hemoglobin D64.9 and Hypothyroidism, unspecified hypothyroidism type E03.9 [place] [address] [address] Mar, Hypothyroidism, unspecified hypothyroidism type E03.9 ; Bilirubin in urine R82.2 and Pancytopenia D61.818 [place] [address] [place] [id number] [place] [address] Feb, [facility] [address] [place] [id number] [place] [address] Feb, Cough R05 and Bronchitis J40 [facility] [address] [address] 14 Feb, 2017 Other viral agents as the cause of diseases classified elsewhere B97.89 and Acute upper respiratory infection, unspecified J06.9 [place] [address] [place] [id number] [place] [address] Feb, Fibromyalgia M79.7 ; Chronic pain syndrome G89.4 ; Hypothyroidism, unspecified hypothyroidism type E03.9 ; Primary insomnia F51.01 ; Osteoporosis M81.0 ; Vision abnormalities H53.9 ; Pancytopenia D61.818 ; BMI 28.0-28.9,adult Z68.28 and Encounter for immunization Z23 [place] [address] [place] [id number] [place] [address] Feb, Neuroma D36.10 and Capsulitis of right foot M77.51 [place] [address] [address] Feb, [place] [address] [address] Feb, Hypothyroidism, unspecified hypothyroidism type E03.9 [place] [address] [address] Jan, [place] [address] [address] Jan, Atrial fibrillation, unspecified type I48.91 [place] [address] [address] Jan, [place] [address] [address] Jan, Fibromyalgia M79.7 ; Atrial fibrillation, unspecified type I48.91 ; Pain of left hand M79.642 ; Pain in right hand M79.641 ; Chronic prescription opiate use Z79.891 ; Chronic pain syndrome G89.4 ; Elevated fasting glucose R73.01 and Hypothyroidism, unspecified hypothyroidism type E03.9 [place] [address] [address] Jan, [place] [address] [address] Dec, Trochanteric bursitis of both hips M70.61 [place] [address] [address] Dec, [facility] [address] [place] [id number] [place] [address] Dec, [facility] [address] [place] [id number] [place] [address] Nov, [facility] [address] [place] [id number] [place] [address] Nov, Unilateral headache R51 [facility] [address] [address] Nov, 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 [address] [place] [id number] [place] [address] Sep, Hypothyroidism, unspecified hypothyroidism type E03.9 [place] [address] [place] [id number] [place] [address] Sep, Hypothyroidism, unspecified hypothyroidism type E03.9 and Bilirubin in urine R82.2 [place] [address] [place] [id number] [place] [address] Sep, Trochanteric bursitis of both hips M70.61 [place] [address] [place] [id number] [place] [address] Sep, Hypothyroidism, unspecified hypothyroidism type E03.9 ; Dysuria R30.0 ; Chronic tension-type headache, not intractable G44.229 and Drug induced constipation K59.03 [place] [address] [place] [id number] [place] [address] Sep, [place] [id number] [place] [address] Sep, [facility] [address] [place] [id number] [place] [address] August, [facility] [address] [place] [id number] [place] [address] Jul, [facility] [address] [place] [id number] [place] [address] Jul, Trochanteric bursitis of right hip M70.61 [facility] [address] [place] [id number] [place] [address] Jul, Hypothyroidism, unspecified hypothyroidism type E03.9 [facility] [address] [place] [id number] [place] [address] Jul, Fibromyalgia M79.7 ; Chronic pain syndrome G89.4 ; Hypothyroidism, unspecified hypothyroidism type E03.9 and Other constipation K59.09 [facility] [address] [place] [id number] [place] [address] Jun, Swollen tonsil J35.1 and Strep throat J02.0 [facility] [address] [place] [id number] [place] [address] Jun, [facility] [address] [place] [id number] [place] [address] Jun, Acute maxillary sinusitis J01.00 [facility] [address] [place] [id number] [place] [address] Jun, Hypothyroidism, unspecified hypothyroidism type E03.9 [facility] [address] [place] [id number] [place] [address] Jun, Chronic pain syndrome G89.4 ; Fibromyalgia M79.7 ; Hypothyroidism, unspecified hypothyroidism type E03.9 and Chronic prescription opiate use Z79.891 [facility] [address] [place] [id number] [place] [address] 10 May, 2016 [place] [address] [place] [address] Apr, Hypothyroidism, unspecified hypothyroidism type E03.9 [place] [address] [place] [id number] [place] [address] Apr, [place] [address] [place] [id number] [place] [address] Apr, Lipid screening Z13.220 and Hypothyroidism, unspecified hypothyroidism type E03.9 [place] [address] [place] [id number] [place] [address] Apr, [place] [address] [address] Mar, Trochanteric bursitis of both hips M70.61 [place] [id number] [place] [address] Mar, [place] [address] [place] [id number] [place] [address] Mar, Plantar fasciitis M72.2 and Porokeratosis Q82.8 [place] [id number] [place] [address] Feb, Lipid screening Z13.220 ; Vitamin D deficiency E55.9 and Hypothyroidism, unspecified hypothyroidism type E03.9 [place] [address] [place] [id number] [place] [address] 16 Feb, 2016 Chronic pain syndrome G89.4 ; Hypothyroidism, unspecified hypothyroidism type E03.9 ; Pancytopenia D61.818 ; Vaginal atrophy N95.2 ; Chronic gastritis without bleeding, unspecified gastritis type K29.50 ; Vitamin D deficiency E55.9 ; Chronic prescription opiate use Z79.891 ; Adverse effect of other opioids, initial encounter T40.2X5A ; Drug induced constipation K59.03 ; Lipid screening Z13.220 and Encounter for immunization Z23 [place] [id number] [place] [address] Feb, [facility] [address] [address] Feb, Ingrown toenail L60.0 [facility] [address] [facility] [id number] [address] Jan, [facility] [address] [facility] [id number] [address] Jan, Trochanteric bursitis of both hips M70.61 [facility] [address] [facility] [id number] [place] [address] Jan, [facility] [address] [place] [id number] [place] [address] Jan, [facility] [address] [place] [id number] [place] [address] Jan, [facility] [id number] [place] [address] Jan, Right sided sciatica M54.31 [facility] [address] [place] [id number] [address] Dec, Onychomycosis B35.1 [facility] [address] [place] [id number] [address] Dec, [facility] [address] [address] Dec, [facility] [address] [place] [id number] [address] Dec, [facility] [address] [place] [id number] [address] Dec, Osteoarthritis of right hip, unspecified osteoarthritis type M16.11 and Bursitis of right hip M70.71 [facility] [address] [place] [id number] [address] Nov, [facility] [address] [place] [id number] [place] [address] [address], [address] [facility] [address] [place] [id number] [place] [address] [address], [address] [facility] [address] [place] [id number] [place] [address] 16 Nov, 2015 Hypothyroidism, unspecified hypothyroidism type E03.9 ; Vitamin D deficiency E55.9 and History of hepatitis C Z86.19 [place] [address] [address] Nov, Right upper quadrant pain R10.11 ; History of hepatitis C Z86.19 and Low back pain M54.5 [place] [address] [place] [id number] [place] [address] Oct, Trochanteric bursitis, right hip M70.61 [place] [address] [place] [id number] [place] [address] Oct, [place] [address] [place] [id number] [place] [address] Oct, [place] [address] [place] [id number] [place] [address] Oct, Trochanteric bursitis of both hips M70.61 and Right sided sciatica M54.31 [place] [address] [place] [id number] [place] [address] Oct, Trochanteric bursitis of both hips M70.61 [place] [address] [place] [id number] [place] [address] 14 Oct, 2015 RUQ abdominal pain R10.11 [place] [address] [place] [id number] [place] [address] 13 Oct, 2015 Sciatic leg pain M54.30 [place] [address] [place] [id number] [place] [address] 11 Oct, 2015 RUQ abdominal pain R10.11 [place] [address] [place] [id number] [place] [address] Oct, RUQ abdominal pain R10.11 ; History of hepatitis C Z86.19 and Trigger point with back pain M54.9 [place] [address] [place] [id number] [place] [address] Sep, [place] [address] [address] Sep, Right sided sciatica M54.31 [place] [address] [place] [id number] [place] [address] Sep, Hypothyroidism, unspecified hypothyroidism type E03.9 and Vitamin D deficiency E55.9 [place] [address] [address] Sep, Plantar fasciitis M72.2 and Porokeratosis Q82.8 [place] [address] [address] Sep, Hypothyroidism, unspecified hypothyroidism type E03.9 ; Chronic pain syndrome G89.4 ; Polyneuropathy associated with underlying disease G63 and Vitamin D deficiency E55.9 [place] [address] [place] [id number] [place] [address] August, [place] [address] [place] [id number] [place] [address] Jul, Plantar fasciitis M72.2 [place] [address] [address] Jul, Trochanteric bursitis, right hip M70.61 [place] [address] [address] Jul, Hypothyroidism, unspecified hypothyroidism type E03.9 [place] [address] [place] [id number] [place] [address] Jul, Hypothyroidism, unspecified hypothyroidism type E03.9 ; Chronic pain syndrome G89.4 and Polyneuropathy associated with underlying disease G63 [place] [address] [place] [id number] [place] [address] 10 Jun, 2015 Trochanteric bursitis of both hips M70.61 [place] [address] [place] [id number] [place] [address] 08 Jun, 2015 Vitamin D deficiency E55.9 ; Osteoporosis M81.0 ; Low back pain M54.5 and Plantar fasciitis M72.2 [place] [address] [place] [id number] [place] [address] May, Vitamin D deficiency E55.9 and Hypothyroidism, unspecified hypothyroidism type E03.9 [place] [address] [place] [id number] [place] [address] May, Acute maxillary sinusitis J01.00 [place] [address] [address] 18 May, 2015 Osteoporosis M81.0 and Hypothyroidism, unspecified hypothyroidism type E03.9 [place] [address] [place] [id number] [place] [address] 16 May, 2015 Osteoporosis M81.0 [place] [address] [place] [id number] [place] [address] May, [place] [address] [place] [id number] [place] [address] Apr, [place] [address] [place] [id number] [place] [address] Apr, Trochanteric bursitis of both hips M70.61 [place] [address] [place] [id number] [place] [address] Apr, Hypothyroidism, unspecified hypothyroidism type E03.9 [place] [address] [place] [id number] [place] [address] Apr, Chronic pain syndrome G89.4 ; Bilateral low back pain with sciatica, sciatica laterality unspecified M54.40 ; Pain in right hip M25.551 ; Pain in left hip M25.552 ; Chronic prescription opiate use Z79.899 ; Primary insomnia F51.01 and Hypothyroidism, unspecified hypothyroidism type E03.9 [facility] [address] [place] [id number] [place] [address] Mar, [facility] [address] [address] Feb, [facility] [address] [address] Feb, Chronic pain syndrome G89.4 and Major depression F32.9 [place] [address] [address] Feb, Fatigue R53.83 [place] [address] [address] Feb, History of fracture Z87.81 [place] [address] [address] Feb, Major depression, recurrent F33.9 and Generalized anxiety disorder F41.1 [place] [address] [address] Feb, [facility] [address] [place] [id number] [place] [phone] Jan, Hypothyroidism, unspecified hypothyroidism type E03.9 [facility] [address] [place] [id number] [place] [id number] Jan, Abdominal pain R10.9 and Hypothyroidism, unspecified hypothyroidism type E03.9 [facility] [address] [place] [id number] [place] [phone] Jan, Abdominal pain R10.9 [facility] [address] [place] [id number] [place] [phone] Jan, Hypothyroidism, unspecified hypothyroidism type E03.9 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 ; Abdominal pain R10.9 ; Dyspareunia N94.1 ; Encounter for immunization Z23 ; History of fracture Z87.81 ; Fatigue R53.83 ; Throat fullness R68.89 ; Bruises easily R23.8 ; Hot flashes N95.1 ; Depression F32.9 and Vaginal atrophy N95.2 [place] [address] [place] [id number] [place] [phone] Jan, Hypothyroidism, unspecified hypothyroidism type E03.9 [place] [address] [place] [id number] [place] [phone] Jan, Unspecified abdominal pain R10.9 ; Chronic obstructive pulmonary disease, unspecified COPD type J44.9 ; Allergic rhinitis, unspecified allergic rhinitis type J30.9 ; Chronic pain syndrome G89.4 ; Hypothyroidism, unspecified hypothyroidism type E03.9 ; Chest pain, unspecified chest pain type R07.9 and Plantar fasciitis M72.2 [place] [address] [place] [id number] [place] [phone] Jan, Trochanteric bursitis of both hips M70.61 [place] [address] [place] [id number] [place] [address] Dec, [place] [address] [address] Nov, [place] [address] [place] [id number] [place] [address] Nov, [address] [place] [address] Nov, Constipation [address] [facility] [id number] [place] [address] Oct, Chronic pain 338.[address] [facility] [address] [address] Oct, [facility] [address] [id number] [place] [address] Sep, [facility] [address] [address] Sep, [facility] [address] [address] [id number] [place] [address] Sep, [facility] [address] [id number] [place] [address] Sep, [facility] [id number] [place] [address] Sep, [facility] [address] [address] Sep, [facility] [address] [address] Sep, COPD exacerbation 491.21 ; Chronic pain 338.29 ; Hypothyroidism 244.[address] [facility] [address] [address] August, [facility] [address] [address] Jul, [facility] [address] [place] [id number] [address] Jul, [facility] [address] [address] Jun, [facility] [address] [address] Jun, [facility] [place] [facility] [address] [id number] [place] [address] Jun, [facility] [place] [facility] [address] [id number] [place] [address] Jun, [facility] [place] [facility] [address] [id number] [place] [address] Jun, [facility] [place] [facility] [address] [id number] [place] [address] May, 2014 [facility] [place] [facility] [address] [id number] [place] [address] May, 2014 [facility] [place] [facility] [address] [id number] [place] [address] May, 2014 [facility] [place] [facility] [address] [id number] [place] [address] May, 2014 [facility] [place] [facility] [address] [id number] [place] [address] May, 2014 [facility] [place] [facility] [address] [id number] [place] [address] May, 2014 [facility] [place] [facility] [address] [facility] [id number] [place] [address] May, 2014 [facility] [place] [facility] [address] [id number] [place] [address] May, 2014 [facility] [place] [facility] [address] [facility] [id number] [place] [address] May, 2014 [facility] [place] [facility] [address] [id number] [place] [address] May, 2014 [facility] [place] [facility] [address] [facility] [id number] [place] [address] May, 2014 [facility] [place] [facility] [address] [facility] [id number] [place] [address] May2014 [facility] [place] [facility] [address] [id number] [place] [address] May, [facility] [place] [facility] [address] [id number] [place] [address] Apr, [facility] [place] [facility] [address] [id number] [place] [address] Apr, [facility] [place] [facility] [address] [id number] [place] [address] Apr, [facility] [place] [facility] [address] [id number] [place] [address] Apr, [facility] [place] [facility] [address] [id number] [place] [address] Apr, [facility] [place] [facility] [address] [id number] [place] [address] Apr, [facility] [place] [facility] [address] [id number] [place] [address] Apr, [facility] [place] [facility] [address] [id number] [place] [address] Mar, [facility] [place] [facility] [address] [id number] [place] [address] Mar, [facility] [place] [facility] [address] [id number] [place] [address] Mar, [facility] [place] [facility] [address] [id number] [place] [address] Mar, [facility] [place] [facility] [address] [id number] [place] [address] Mar, [facility] [place] [facility] [address] [id number] [place] [address] Mar, [facility] [place] [facility] [address] [id number] [place] [address] Feb, [facility] [place] [facility] [address] [id number] [address] Feb, [facility] [place] [facility] [address] [id number] [place] [address] Feb, [facility] [place] [facility] [address] [id number] [place] [address] Feb, [facility] [place] [facility] [address] [facility] [id number] [place] [address] Feb, [facility] [place] [facility] [address] [id number] [place] [address] Feb, [facility] [place] [facility] [address] [id number] [place] [address] Jan, [facility] [place] [facility] [address] [id number] [place] [address] Jan, [facility] [place] [facility] [address] [id number] [place] [address] Jan, [facility] [place] [facility] [address] [id number] [address] Jan, [facility] [place] [facility] [address] [id number] [place] [address] Jan, [facility] [place] [facility] [address] [id number] [address] Jan, [facility] [place] [facility] [address] [id number] [address] Jan, [facility] [place] [facility] [address] [id number] [address] Jan, [facility] [place] [facility] [address] [id number] [place] [address] Dec, [facility] [place] [facility] [address] [id number] [place] [address] Dec, [facility] [place] [facility] [address] [id number] [place] [address] Dec, [facility] [place] [facility] [address] [id number] [place] [address] 23 Dec, 2013 [facility] [place] [facility] [address] [id number] [place] [address] 13 Dec, 2013 [facility] [place] [facility] [address] [id number] [place] [address] Dec, [facility] [place] [facility] [address] [id number] [place] [address] Dec, [facility] [place] [facility] [address] [id number] [place] [address] Nov, [facility] [place] [facility] [address] [id number] [place] [address] Nov, [facility] [place] [facility] [address] [id number] [place] [address] Oct, [facility] [place] [facility] [address] [id number] [place] [address] Oct, [facility] [place] [facility] [address] [id number] [place] [address] Oct, [facility] [place] [facility] [address] [id number] [place] [address] Oct, [facility] [place] [facility] [address] [id number] [place] [address] Sep, [facility] [place] [facility] [address] [id number] [place] [address] Sep, [facility] [place] [facility] [address] [id number] [place] [address] Sep, [facility] [place] [facility] [address] [id number] [place] [address] Sep, [facility] [place] [facility] [address] [id number] [place] [address] Sep, [facility] [place] [facility] [address] [id number] [place] [address] Sep, [facility] [place] [facility] [address] [id number] [place] [address] Sep, [facility] [place] [facility] [address] [id number] [place] [address] Sep, [facility] [place] [facility] [address] [id number] [place] [address] August, [facility] [place] [facility] [address] [id number] [place] [address] August, [facility] [place] [facility] [address] [id number] [place] [address] August, [facility] [place] [facility] [address] [id number] [place] [address] August, [facility] [place] [facility] [address] [id number] [place] [address] Jul, [facility] [place] [facility] [address] [id number] [place] [address] Jul, [facility] [place] [facility] [address] [id number] [place] [address] Jul, [facility] [place] [facility] [address] [id number] [place] [address] Jul, [facility] [place] [facility] [address] [id number] [place] [address] 17 Jul, 2013 [facility] [place] [facility] [address] [id number] [place] [address] 16 Jul, 2013 [facility] [place] [facility] [address] [id number] [place] [address] 15 Jul, 2013 [facility] [place] [facility] [address] [id number] [place] [address] 15 Jul, 2013 [facility] [place] [facility] [address] [id number] [place] [address] 18 Jun, 2013 [facility] [place] [facility] [address] [id number] [address] Jun, [facility] [place] [facility] [address] [id number] [place] [address] Jun, [facility] [place] [facility] [address] [id number] [place] [address] Jun, [facility] [place] [facility] [address] [id number] [place] [address] Jun, [facility] [place] [facility] [address] [id number] [place] [address] Jun, [facility] [place] [facility] [address] [id number] [place] [address] Jun, [facility] [place] [facility] [address] [id number] [place] [address] Jun, [facility] [place] [facility] [address] [facility] [id number] [place] [address] May, [facility] [place] [facility] [address] [id number] [place] [address] May, [facility] [place] [facility] [address] [facility] [id number] [place] [address] Apr, [facility] [place] [facility] [address] [facility] [id number] [place] [address] Apr, [facility] [place] [facility] [address] [id number] [place] [address] Mar, [facility] [place] [facility] [address] [id number] [place] [address] Mar, [facility] [place] [facility] [address] [id number] [place] [address] Mar, [facility] [place] [facility] [address] [id number] [place] [address] Mar, [facility] [place] [facility] [address] [facility] [id number] [place] [address] Mar, [facility] [place] [facility] [address] [id number] [place] [address] Mar, [facility] [place] [facility] [address] [id number] [place] [address] Mar, [facility] [place] [facility] [address] [id number] [place] [address] Feb, [facility] [place] [facility] [address] [id number] [place] [address] Feb, [facility] [place] [facility] [address] [id number] [place] [address] Feb, [facility] [place] [facility] [address] [id number] [place] [address] Feb, [facility] [place] [facility] [address] [id number] [place] [address] Feb, [facility] [place] [facility] [address] [id number] [place] [address] Feb, [facility] [place] [facility] [address] [id number] [place] [address] 26 Dec, 2012 [facility] [place] [facility] [address] [id number] [place] [address] 18 Dec, 2012 [facility] [place] [facility] [address] [id number] [place] [address] 13 Dec, 2012 [facility] [place] [facility] [address] [id number] [place] [address] 13 Dec, 2012 [facility] [place] [facility] [address] [id number] [place] [address] 06 Dec, 2012 [facility] [place] [facility] [address] [id number] [place] [address] 30 Nov, 2012 [facility] [place] [facility] [address] [id number] [place] [address] Nov, [facility] [place] [facility] [address] [id number] [place] [address] Oct, [facility] [address] [id number] [place] [address] August, [facility] [address] [id number] [place] [address] August, [facility] [address] [id number] [place] [address] August, [facility] [address] [id number] [place] [address] Jul, [facility] [address] [id number] [place] [address] Jul, [facility] [address] [id number] [place] [address] Jul, [facility] [address] [id number] [place] [address] Jun, [facility] [place] [facility] [address] [id number] [place] [address] Jun, [facility] [address] [id number] [place] [address] Jun, [facility] [place] [facility] [address] [id number] [place] [address] Jun, [facility] [place] [facility] [address] [id number] [address] Jun, [facility] [place] [facility] [address] [id number] [address] 15 Jun, 2012 [facility] [place] [facility] [address] [id number] [place] [address] Jun, [facility] [place] [facility] [address] [id number] [address] 18 May, 2012 [facility] [place] [facility] [address] [id number] [place] [address] May, [facility] [place] [facility] [address] [id number] [place] [address] 06 May, 2012 [facility] [address] [id number] [place] [address] May, [facility] [address] [id number] [place] [address] Apr, [facility] [address] [id number] [place] [address] Apr, [facility] [address] [id number] [place] [address] Apr, [facility] [address] [id number] [place] [address] Mar, [facility] [address] [id number] [place] [address] Mar, [facility] [address] [id number] [place] [address] Mar, [facility] [address] [id number] [place] [address] Mar, [facility] [address] [id number] [place] [address] Mar, [facility] [address] [id number] [place] [address] Mar, [facility] [address] [id number] [place] [address] Mar, [facility] [address] [id number] [place] [address] Mar, [facility] [place] [facility] [address] [id number] [place] [address] Feb, [facility] [address] [id number] [place] [address] Feb, [facility] [address] [id number] [place] [address] Feb, [facility] [place] [facility] [address] [id number] [place] [address] Jan, [facility] [place] [facility] [address] [id number] [place] [address] Jan, [facility] [place] [facility] [address] [id number] [place] [address] Jan, [facility] [place] [facility] [address] [id number] [place] [address] Jan, [facility] [place] [facility] [address] [id number] [place] [address] Jan, [facility] [place] [facility] [address] [id number] [place] [address] Jan, [facility] [place] [facility] [address] [id number] [place] [address] Jan, [facility] [place] [facility] [address] [id number] [place] [address] Dec, [facility] [place] [facility] [address] [id number] [place] [address] 24 Dec, 2011 [facility] [place] [facility] [address] [id number] [place] [address] Dec, [facility] [place] [facility] [address] [id number] [place] [address] Nov, [facility] [place] [facility] [address] [id number] [place] [address] Nov, [facility] [place] [facility] [address] [id number] [place] [address] Nov, [facility] [place] [facility] [address] [id number] [place] [address] Nov, [facility] [place] [facility] [address] [id number] [place] [address] Oct, [facility] [place] [facility] [address] [id number] [place] [address] 05 Oct, 2011 [facility] [place] [facility] [address] [id number] [place] [address] Oct, [facility] [place] [facility] [address] [id number] [place] [address] Sep, [facility] [place] [facility] [address] [id number] [place] [address] 16 Sep, 2011 [facility] [place] [facility] [address] [id number] [place] [address] 13 Sep, 2011 [facility] [place] [facility] [address] [id number] [place] [address] Sep, [facility] [place] [facility] [address] [id number] [place] [address] Sep, [facility] [address] [id number] [place] [address] Sep, [facility] [place] [facility] [address] [id number] [place] [address] August, [facility] [place] [facility] [address] [id number] [place] [address] Jul, [facility] [place] [facility] [address] [id number] [place] [address] Jul, [facility] [place] [facility] [address] [id number] [place] [address] Jul, [facility] [place] [facility] [address] [id number] [place] [address] Jul, [facility] [place] [facility] [address] [id number] [place] [address] Jul, [facility] [place] [facility] [address] [id number] [place] [address] Jun, [facility] [place] [facility] [address] [id number] [place] [address] Jun, [facility] [place] [facility] [address] [id number] [place] [address] 15 Jun, 2011 [facility] [place] [facility] [address] [id number] [place] [address] 15 Jun, 2011 [facility] [place] [facility] [address] [id number] [place] [address] Jun, [facility] [place] [facility] [address] [id number] [place] [address] May, [facility] [place] [facility] [address] [id number] [place] [address] May, [facility] [place] [facility] [address] [id number] [place] [address] May, [facility] [place] [facility] [address] [facility] [id number] [place] [address] May, [facility] [place] [facility] [address] [id number] [place] [address] May, [facility] [place] [facility] [address] [id number] [place] [address] May, [facility] [place] [facility] [address] [facility] [id number] [place] [address] May, [facility] [place] [facility] [address] [facility] [id number] [place] [address] Apr, [facility] [place] [facility] [address] [id number] [place] [address] Mar, [facility] [place] [facility] [address] [id number] [place] [address] Mar, [facility] [place] [facility] [address] [id number] [place] [address] Mar, [facility] [place] [facility] [address] [facility] [id number] [place] [address] Mar, [facility] [place] [facility] [address] [id number] [address] 08 Mar, 2011 [facility] [place] [facility] [address] [id number] [place] [address] 23 Feb, 2011 [facility] [place] [facility] [address] [id number] [place] [address] 14 Feb, 2011 [facility] [place] [facility] [address] [id number] [place] [address] 14 Feb, 2011 [facility] [place] [facility] [address] [id number] [place] [address] 14 Feb, 2011 [facility] [place] [facility] [address] [id number] [place] [address] Feb, [facility] [place] [facility] [address] [id number] [place] [address] Feb, [facility] [place] [facility] [address] [facility] [id number] [place] [address] Feb, [facility] [place] [facility] [address] [id number] [place] [address] 10 Jan, 2011 [facility] [place] [facility] [address] [id number] [place] [address] Dec, [facility] [place] [facility] [address] [id number] [place] [address] Oct, [facility] [place] [facility] [address] [id number] [place] [address] Jun, [facility] [place] [facility] [address] [id number] [address] Mar, [facility] [place] [facility] [address] [id number] [place] [address] Mar, [facility] [place] [facility] [address] [id number] [place] [address] 16 Mar, 2010 [facility] [place] [facility] [address] [id number] [place] [address] 16 Mar, 2010 [facility] [place] [facility] [address] [id number] [place] [address] 15 Mar, 2010 [facility] [place] [facility] [address] [id number] [place] [address] 10 Mar, 2010 [facility] [place] [facility] [address] [id number] [place] [address] 10 Mar, 2010 [facility] [place] [facility] [address] [id number] [place] [address] 05 Mar, 2010 [facility] [place] [facility] [address] [id number] [place] [address] 03 Mar, 2010 [facility] [place] [facility] [address] [id number] [place] [address] 02 Mar, 2010 [facility] [place] [facility] [address] [id number] [place] [address] Jan, [facility] [place] [facility] [address] [id number] [place] [address] Jan, [facility] [place] [facility] [address] [id number] [place] [address] Jan, [facility] [place] [facility] [address] [id number] [place] [address] Nov, [facility] [place] [facility] [address] [id number] [place] [address] Oct, [facility] [place] [facility] [address] [id number] [place] [address] 31 Mar, 2009 [facility] [place] [facility] [address] [id number] [place] [address] 20 Mar, 2009 [facility] [place] [facility] [address] [id number] [place] [address] 17 Mar, 2009 [facility] [place] [facility] [address] [id number] [place] [address] 17 Mar, 2009 [facility] [place] [facility] [address] [id number] [place] [address] Dec, [facility] [address] [facility] [id number] [address] August, [facility] [address] [facility] [id number] [address] August, [facility] [address] [facility] [id number] [address] Jul, [facility] [address] [facility] [id number] [address] Jan, [facility] [address] [facility] [id number] [place] [address] Jan, IMMUNIZATIONS No Known Immunizations SOCIAL HISTORY Never Assessed REASON FOR VISIT Sore throat and laryngitis x 1 day. Known exposure to strep through grandson syd richard stayed at her house. Pt was scratched on the face by her puppy approximately 1 week ago and 3 days ago the scratch became red and irritated. No self-treatme nt for sore throat or scratch on face. [facility] PLAN OF CARE Activity Details Follow Up if not improving with PCP or reg follow up Reason: VITAL SIGNS Height 67 in 2018-03-15 Weight 184.6 lbs 2018-03-15 Temperature 97.1 degrees Fahrenheit 2018-03-15 Heart Rate 72 bpm 2018-03-15 Respiratory Rate 20 2018-03-15 BMI 28.91 kg/m2 2018-03-15 Blood pressure systolic 132 mmHg 2018-03-15 Blood pressure diastolic 80 mmHg 2018-03-15 MEDICATIONS Medication Instructions Dosage Frequency Start Date End Date Duration Status Xenical 120 MG Orally Three times a day 1 capsule 8h Oct, 30 day(s) Active Protonix 40 mg Orally Once a day 1 tablet 24h Dec, 30 days Active Flonase 50 MCG/ACT Nasally Once a day 1 spray in each nostril 24h Sep, Active Amoxicillin 875 MG Orally every 12 hrs 1 tablet 12h Feb, 10 day(s) Active Synthroid 150 MCG Orally Once a day 1 tablet on an empty stomach in the morning 24h Jul, Active Cetirizine HCl 10 mg Orally Once a day 1 tablet 24h May, Active Premarin 0.625 MG/GM Vaginal Daily x 2 weeks then decrease to 2 days per week 0.5 gram 16 Feb, 2016 Active Eliquis 5 mg TAKE ONE TABLET BY MOUTH TWICE DAILY Active Metoprolol Succinate ER 50 mg Orally Once a day 1 tablet 24h Active Lyrica 75 MG Orally Twice a day 1 capsule 12h Jan, Active Alendronate Sodium 10 MG Orally Once a day 1 tablet 24h 08 Jun, 2015 30 day(s) Active Hydrocodone-Acetaminophen 10-325 MG Orally 2 times a day 1 tablet as needed 12h Feb, 28 days Active RESULTS Name Result Date Reference Range STREP A (IN HOUSE) 2018-03-15 STREP A Positive Control + Lot # [id number] Exp date 09/16/2018 PROCEDURES Procedure Date Ordered Result Body Site STREP A ASSAY W/OPTIC Mar 15, 2018 INSTRUCTIONS MEDICATIONS ADMINISTERED No Known Medications MEDICAL (GENERAL) HISTORY Type Description Date Medical History asthma Medical History hypertension Medical History hepatitis C Medical History osteoporosis Medical History headache Medical History depression Medical History Hypothyroidism Medical History fibromyalgia Medical History Arthritis Medical History back pain Medical History Brain Aneurysm-metal clip placed September 1995 Surgical History hysterectomy complete- in s. Surgical History cholecystectomy Surgical History bladder surgery Surgical History orthopedic surgery--left foot Surgical History Thyroid surgery-Ablation Surgical History colonoscopy - Dr. Syed 10/2013 Surgical History EGD - Dr. Syed 2016 Hospitalization History surgeries Hospitalization History multiple hospital stays for PNA
--- OUTSIDE RECORDS SUMMARY | 2018-09-22 02:40 | XMS REPORT ---
Author Author FLORENTINEZEKIEL PUCKETT Organization [facility] [place] Address [address] [place] [address] Care Team Providers [facility] [employer] Name Role Phone DANICA LERMAY Unavailable PROBLEMS Type Condition ICD9-CM Code MQR68-BU Code Onset Dates Condition Status SNOMED Code Problem Vitamin D deficiency E55.9 Active 44300836 Problem Chronic gastritis without bleeding, unspecified gastritis type K29.50 Active 5278564 Problem Osteoporosis M81.0 Active 78244699 Problem Unspecified abdominal pain R10.9 Active 431392560 Problem Fibromyalgia M79.7 Active 94841693 Problem Chronic pain syndrome G89.4 Active 204218913 Problem Chronic tension-type headache, not intractable G44.229 Active 825828552 Problem RUQ abdominal pain R10.11 Active 936154703 Problem Pancytopenia D61.818 Active 991386165 Problem Right sided sciatica M54.31 Active 86533409 Problem Hypothyroidism, unspecified hypothyroidism type E03.9 Active 31459433 Problem Drug induced constipation K59.03 Active 277280030070298 Problem Porokeratosis Q82.8 Active 574586226 Problem Chronic prescription opiate use Z79.891 Active 264414237 Problem Pure hypercholesterolemia E78.00 Active 985767113 Problem Leukopenia, unspecified type D72.819 Active 02402055 Problem History of hepatitis C Z86.19 Active 95436032256922 Problem Allergic rhinitis, unspecified allergic rhinitis type J30.9 Active 06660928 Problem Chronic obstructive pulmonary disease, unspecified COPD type J44.9 Active 29254871 Problem Allergy to intravenous contrast Z91.041 Active 003536950 Problem Other constipation K59.09 Active 915288807 Problem Atrial fibrillation, unspecified type I48.91 Active 06374680 Problem 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 Active 567731216 Problem Major depression, recurrent F33.9 Active 30656098 Problem Primary insomnia F51.01 Active 1181711 Problem Hot flashes N95.1 Active 076850661 Problem Vaginal atrophy N95.2 Active 058761883 Problem Polyneuropathy associated with underlying disease G63 Active 215980196 Problem Trigger point with back pain M54.9 Active 091555130 Problem Low back pain M54.5 Active 557460129 Problem Plantar fasciitis M72.2 Active 831349888 ALLERGIES No Information ENCOUNTERS Encounter Location Date Diagnosis [place] [address] [address] Feb, Acute maxillary sinusitis J01.00 [place] [address] [address] Feb, Hypothyroidism, unspecified hypothyroidism type E03.9 [place] [address] [address] Feb, Chronic pain syndrome G89.4 [place] [address] [address] Jan, Fibromyalgia M79.7 ; Chronic pain syndrome G89.4 ; Low back pain M54.5 ; Hypothyroidism, unspecified hypothyroidism type E03.9 ; Leukopenia, unspecified type D72.819 ; Pure hypercholesterolemia E78.00 ; Right upper quadrant pain R10.11 ; Encounter for immunization Z23 ; Chronic gastritis without bleeding, unspecified gastritis type K29.50 ; Chronic prescription opiate use Z79.891 and BMI 28.0-28.9,adult Z68.28 [place] [address] [place] [id number] [place] [address] Jan, Chronic pain syndrome G89.4 [place] [address] [place] [id number] [place] [address] Dec, Chronic pain syndrome G89.4 [place] [address] [place] [id number] [place] [address] Nov, Onychocryptosis L60.0 [place] [address] [place] [id number] [place] [address] Nov, Chronic pain syndrome G89.4 [place] [address] [place] [id number] [place] [address] Nov, Trochanteric bursitis of both hips M70.61 [place] [address] [place] [id number] [place] [address] Oct, Hypothyroidism, unspecified hypothyroidism type E03.9 and Atrial fibrillation, unspecified type I48.91 [place] [address] [place] [id number] [place] [address] Oct, Fibromyalgia M79.7 ; Chronic pain syndrome G89.4 ; Hypothyroidism, unspecified hypothyroidism type E03.9 ; Overweight (BMI 25.0-29.9) E66.3 and Atrial fibrillation, unspecified type I48.91 [place] [address] [place] [id number] [place] [address] Oct, Chronic pain syndrome G89.4 [place] [address] [place] [id number] [place] [address] Sep, Chronic pain syndrome G89.4 [place] [address] [place] [id number] [place] [address] August, Somatic dysfunction of lumbar region M99.03 and Somatic dysfunction of pelvis region M99.05 [place] [address] [place] [id number] [place] [address] August, Chronic pain syndrome G89.4 [place] [address] [place] [id number] [place] [address] Jul, Trochanteric bursitis of left hip M70.62 and Trochanteric bursitis, right hip M70.61 [place] [address] [place] [id number] [place] [address] Jul, [place] [address] [place] [id number] [place] [address] Jul, Chronic pain syndrome G89.4 [place] [address] [place] [id number] [place] [address] Jul, Hypothyroidism, unspecified hypothyroidism type E03.9 [facility] [place] [address] [place] [id number] [place] [address] Jul, Hypothyroidism, unspecified hypothyroidism type E03.9 [facility] [place] [address] [place] [id number] [place] [address] Jul, Chronic tension-type headache, not intractable G44.229 ; Atrial fibrillation, unspecified type I48.91 ; Chronic pain syndrome G89.4 ; Hypothyroidism, unspecified hypothyroidism type E03.9 ; Pancytopenia D61.818 ; History of hepatitis C Z86.19 ; Vaginal atrophy N95.2 ; RUQ abdominal pain R10.11 ; Chronic prescription opiate use Z79.891 ; Osteoporosis M81.0 and Screening for breast cancer Z12.31 [place] [address] [place] [id number] [place] [address] Jun, [facility] [place] [address] [address] May, [facility] [place] [address] [place] [id number] [place] [address] May, [facility] [place] [address] [place] [id number] [place] [address] May, [facility] [place] [address] [place] [id number] [place] [address] Apr, [facility] [place] [address] [place] [id number] [place] [address] Apr, Hypothyroidism, unspecified hypothyroidism type E03.9 [facility] [place] [address] [place] [id number] [place] [address] Apr, Hypothyroidism, unspecified hypothyroidism type E03.9 and Leukopenia, unspecified type D72.819 [facility] [place] [address] [place] [id number] [place] [address] Mar, [facility] [place] [address] [address] Mar, Leukopenia, unspecified type D72.819 [place] [address] [address] Mar, Hypothyroidism, unspecified hypothyroidism type E03.9 and Low hemoglobin D64.[address] [address] Mar, Hypothyroidism, unspecified hypothyroidism type E03.9 [place] [address] [address] Mar, Osteoporosis M81.0 ; Low hemoglobin D64.9 and Hypothyroidism, unspecified hypothyroidism type E03.9 [place] [address] [address] Mar, Hypothyroidism, unspecified hypothyroidism type E03.9 ; Bilirubin in urine R82.2 and Pancytopenia D61.818 [place] [address] [address] Feb, [facility] [address] [address] Feb, Cough R05 and Bronchitis J40 [facility] [address] [address] 14 Feb, 2017 Other viral agents as the cause of diseases classified elsewhere B97.89 and Acute upper respiratory infection, unspecified J06.[address] [address] 08 Feb, 2017 Fibromyalgia M79.7 ; Chronic pain syndrome G89.4 ; Hypothyroidism, unspecified hypothyroidism type E03.9 ; Primary insomnia F51.01 ; Osteoporosis M81.0 ; Vision abnormalities H53.9 ; Pancytopenia D61.818 ; BMI 28.0-28.9,adult Z68.28 and Encounter for immunization Z23 [address] [address] Feb, Neuroma D36.10 and Capsulitis of right foot M77.51 [facility] [place] [address] [place] [id number] [place] [address] Feb, [facility] [place] [address] [place] [id number] [place] [address] Feb, Hypothyroidism, unspecified hypothyroidism type E03.9 [facility] [place] [address] [place] [id number] [place] [address] Jan, [facility] [place] [address] [place] [id number] [place] [address] Jan, Atrial fibrillation, unspecified type I48.91 [place] [address] [place] [id number] [place] [address] Jan, [facility] [place] [address] [place] [id number] [place] [address] Jan, Fibromyalgia M79.7 ; Atrial fibrillation, unspecified type I48.91 ; Pain of left hand M79.642 ; Pain in right hand M79.641 ; Chronic prescription opiate use Z79.891 ; Chronic pain syndrome G89.4 ; Elevated fasting glucose R73.01 and Hypothyroidism, unspecified hypothyroidism type E03.9 [facility] [place] [id number] [place] [address] Jan, [facility] [place] [address] [place] [id number] [place] [address] Dec, Trochanteric bursitis of both hips M70.61 [facility] [place] [address] [place] [id number] [place] [address] Dec, [facility] [place] [address] [place] [id number] [place] [address] Dec, [facility] [place] [address] [place] [id number] [place] [address] Nov, [facility] [place] [address] [place] [id number] [place] [address] Nov, Unilateral headache R51 [facility] [place] [address] [place] [id number] [place] [address] Nov, [facility] [place] [address] [place] [id number] [place] [address] Oct, Unilateral headache R51 ; 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 and Allergy to intravenous contrast Z91.041 [facility] [place] [address] [place] [id number] [place] [address] Oct, [facility] [place] [address] [place] [id number] [place] [address] Oct, [place] [address] [place] [id number] [place] [address] Sep, Hypothyroidism, unspecified hypothyroidism type E03.9 [place] [address] [place] [id number] [place] [address] Sep, Hypothyroidism, unspecified hypothyroidism type E03.9 and Bilirubin in urine R82.2 [place] [address] [place] [id number] [place] [address] Sep, Trochanteric bursitis of both hips M70.61 [facility] [place] [address] [place] [id number] [place] [address] Sep, Hypothyroidism, unspecified hypothyroidism type E03.9 ; Dysuria R30.0 ; Chronic tension-type headache, not intractable G44.229 and Drug induced constipation K59.03 [facility] [place] [id number] [place] [address] Sep, [facility] [place] [address] [place] [id number] [place] [address] Sep, [facility] [place] [address] [place] [id number] [place] [address] August, [facility] [place] [address] [place] [id number] [place] [address] Jul, [place] [address] [place] [id number] [place] [address] Jul, Trochanteric bursitis of right hip M70.61 [facility] [place] [address] [place] [id number] [place] [address] Jul, Hypothyroidism, unspecified hypothyroidism type E03.9 [facility] [place] [address] [place] [id number] [place] [address] Jul, Fibromyalgia M79.7 ; Chronic pain syndrome G89.4 ; Hypothyroidism, unspecified hypothyroidism type E03.9 and Other constipation K59.09 [facility] [address] [place] [id number] [place] [address] Jun, Swollen tonsil J35.1 and Strep throat J02.0 [facility] [place] [address] [place] [id number] [place] [address] Jun, [facility] [place] [address] [place] [id number] [place] [address] Jun, Acute maxillary sinusitis J01.00 [facility] [place] [address] [place] [id number] [place] [address] Jun, Hypothyroidism, unspecified hypothyroidism type E03.9 [facility] [place] [address] [place] [id number] [place] [address] Jun, Chronic pain syndrome G89.4 ; Fibromyalgia M79.7 ; Hypothyroidism, unspecified hypothyroidism type E03.9 and Chronic prescription opiate use Z79.891 [facility] [place] [address] [place] [id number] [place] [address] May, [facility] [place] [address] [address] Apr, Hypothyroidism, unspecified hypothyroidism type E03.9 [facility] [place] [address] [place] [id number] [place] [address] Apr, [facility] [place] [address] [address] Apr, Lipid screening Z13.220 and Hypothyroidism, unspecified hypothyroidism type E03.9 [facility] [place] [address] [place] [address] Apr, [facility] [place] [address] [place] [address] Mar, Trochanteric bursitis of both hips M70.61 [place] [address] [place] [id number] [place] [address] Mar, [place] [address] [place] [id number] [place] [address] Mar, Plantar fasciitis M72.2 and Porokeratosis Q82.8 [place] [address] [place] [address] Feb, Lipid screening Z13.220 ; Vitamin D deficiency E55.9 and Hypothyroidism, unspecified hypothyroidism type E03.9 [place] [address] [place] [address] 16 Feb, 2016 Chronic pain syndrome G89.4 ; Hypothyroidism, unspecified hypothyroidism type E03.9 ; Pancytopenia D61.818 ; Vaginal atrophy N95.2 ; Chronic gastritis without bleeding, unspecified gastritis type K29.50 ; Vitamin D deficiency E55.9 ; Chronic prescription opiate use Z79.891 ; Adverse effect of other opioids, initial encounter T40.2X5A ; Drug induced constipation K59.03 ; Lipid screening Z13.220 and Encounter for immunization Z23 [facility] [place] [address] [place] [address] Feb, [place] [address] [place] [id number] [place] [address] Feb, Ingrown toenail L60.0 [place] [address] [place] [address] Jan, [place] [address] [place] [id number] [place] [address] Jan, Trochanteric bursitis of both hips M70.61 [facility] [place] [address] [place] [address] Jan, [facility] [place] [address] [place] [id number] [place] [address] Jan, [facility] [place] [address] [place] [id number] [place] [address] Jan, [facility] [place] [address] [place] [id number] [place] [address] Jan, Right sided sciatica M54.31 [facility] [place] [address] [place] [id number] [place] [address] 23 Dec, 2015 Onychomycosis B35.1 [facility] [place] [address] [place] [address] Dec, [facility] [place] [address] [place] [address] Dec, [facility] [place] [address] [place] [address] 09 Dec, 2015 [facility] [place] [address] [place] [id number] [place] [address] Dec, Osteoarthritis of right hip, unspecified osteoarthritis type M16.11 and Bursitis of right hip M70.71 [facility] [place] [address] [place] [address] Nov, [facility] [place] [address] [place] [address] Nov, [facility] [place] [address] [place] [id number] [place] [address] Nov, [facility] [place] [address] [place] [address] Nov, Hypothyroidism, unspecified hypothyroidism type E03.9 ; Vitamin D deficiency E55.9 and History of hepatitis C Z86.19 [facility] [place] [address] [place] [id number] [place] [address] Nov, Right upper quadrant pain R10.11 ; History of hepatitis C Z86.19 and Low back pain M54.5 [facility] [place] [address] [place] [id number] [place] [address] Oct, Trochanteric bursitis, right hip M70.61 [facility] [place] [address] [address] Oct, [facility] [place] [address] [address] Oct, [facility] [place] [address] [place] [id number] [place] [address] Oct, Trochanteric bursitis of both hips M70.61 and Right sided sciatica M54.31 [place] [address] [address] Oct, Trochanteric bursitis of both hips M70.61 [facility] [place] [address] [address] 14 Oct, 2015 RUQ abdominal pain R10.11 [place] [address] [place] [id number] [place] [address] 13 Oct, 2015 Sciatic leg pain M54.30 [facility] [place] [address] [place] [id number] [place] [address] Oct, RUQ abdominal pain R10.11 [facility] [place] [address] [place] [id number] [place] [address] 07 Oct, 2015 RUQ abdominal pain R10.11 ; History of hepatitis C Z86.19 and Trigger point with back pain M54.9 [facility] [place] [address] [place] [id number] [place] [address] Sep, [facility] [place] [address] [address] Sep, Right sided sciatica M54.31 [place] [address] [place] [id number] [place] [address] Sep, Hypothyroidism, unspecified hypothyroidism type E03.9 and Vitamin D deficiency E55.9 [place] [address] [place] [id number] [place] [address] Sep, Plantar fasciitis M72.2 and Porokeratosis Q82.8 [place] [address] [place] [id number] [place] [address] Sep, Hypothyroidism, unspecified hypothyroidism type E03.9 ; Chronic pain syndrome G89.4 ; Polyneuropathy associated with underlying disease G63 and Vitamin D deficiency E55.9 [place] [address] [place] [id number] [place] [address] August, [place] [address] [place] [id number] [place] [address] Jul, Plantar fasciitis M72.2 [place] [address] [place] [id number] [place] [address] Jul, Trochanteric bursitis, right hip M70.61 [place] [address] [place] [id number] [place] [address] Jul, Hypothyroidism, unspecified hypothyroidism type E03.9 [place] [address] [place] [id number] [place] [address] Jul, Hypothyroidism, unspecified hypothyroidism type E03.9 ; Chronic pain syndrome G89.4 and Polyneuropathy associated with underlying disease G63 [place] [address] [place] [id number] [place] [address] Jun, Trochanteric bursitis of both hips M70.61 [place] [address] [place] [id number] [place] [address] 08 Jun, 2015 Vitamin D deficiency E55.9 ; Osteoporosis M81.0 ; Low back pain M54.5 and Plantar fasciitis M72.2 [place] [id number] [place] [id number] [place] [address] May, Vitamin D deficiency E55.9 and Hypothyroidism, unspecified hypothyroidism type E03.9 [facility] [place] [id number] [place] [phone] May, Acute maxillary sinusitis J01.00 [place] [address] [address] 18 May, 2015 Osteoporosis M81.0 and Hypothyroidism, unspecified hypothyroidism type E03.9 [place] [address] [address] 16 May, 2015 Osteoporosis M81.0 [place] [address] [address] May, [place] [address] [address] Apr, [place] [address] [address] Apr, Trochanteric bursitis of both hips M70.61 [place] [address] [address] Apr, Hypothyroidism, unspecified hypothyroidism type E03.9 [place] [address] [address] Apr, Chronic pain syndrome G89.4 ; Bilateral low back pain with sciatica, sciatica laterality unspecified M54.40 ; Pain in right hip M25.551 ; Pain in left hip M25.552 ; Chronic prescription opiate use Z79.899 ; Primary insomnia F51.01 and Hypothyroidism, unspecified hypothyroidism type E03.9 [place] [id number] [place] [address] Mar, [place] [address] [address] Feb, [place] [id number] [place] [address] Feb, Chronic pain syndrome G89.4 and Major depression F32.9 [place] [id number] [place] [address] Feb, Fatigue R53.83 [place] [address] [address] Feb, History of fracture Z87.81 [place] [address] [address] Feb, Major depression, recurrent F33.9 and Generalized anxiety disorder F41.1 [place] [id number] [place] [address] Feb, [place] [address] [address] Jan, Hypothyroidism, unspecified hypothyroidism type E03.9 [place] [id number] [place] [address] Jan, Abdominal pain R10.9 and Hypothyroidism, unspecified hypothyroidism type E03.9 [place] [id number] [place] [address] Jan, Abdominal pain R10.9 [place] [address] [address] Jan, Hypothyroidism, unspecified hypothyroidism type E03.9 [place] [id number] [place] [address] Jan, [place] [address] [address] Jan, 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) w/o 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 Z01.419 and Hypothyroidism, unspecified hypothyroidism type E03.9 [place] [address] [address] Jan, 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) w/o 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 Z01.419 ; Abdominal pain R10.9 ; Dyspareunia N94.1 ; Encounter for immunization Z23 ; History of fracture Z87.81 ; Fatigue R53.83 ; Throat fullness R68.89 ; Bruises easily R23.8 ; Hot flashes N95.1 ; Depression F32.9 and Vaginal atrophy N95.2 [place] [address] [address] Jan, Hypothyroidism, unspecified hypothyroidism type E03.[address] [address] Jan, Unspecified abdominal pain R10.9 ; Chronic obstructive pulmonary disease, unspecified COPD type J44.9 ; Allergic rhinitis, unspecified allergic rhinitis type J30.9 ; Chronic pain syndrome G89.4 ; Hypothyroidism, unspecified hypothyroidism type E03.9 ; Chest pain, unspecified chest pain type R07.9 and Plantar fasciitis M72.2 [place] [address] [address] Jan, Trochanteric bursitis of both hips M70.61 [place] [address] [address] Dec, [place] [address] [address] Nov, [place] [address] [address] Nov, [place] [address] [address] Nov, Constipation 564.00 [place] [address] [address] Oct, Chronic pain 338.29 and Hypothyroidism 244.9 [place] [address] [address] Oct, [facility] [place] [address] [facility] [id number] [address] Sep, [facility] [id number] [address] Sep, [facility] [address] [facility] [id number] [place] [address] Sep, [facility] [place] [id number] [address] Sep, [facility] [place] [id number] [address] Sep, [facility] [place] [id number] [address] Sep, [facility] [place] [address] [address] Sep, COPD exacerbation 491.21 ; Chronic pain 338.29 ; Hypothyroidism 244.9 and Pancytopenia 284.19 [facility] [place] [address] [address] August, [facility] [place] [address] [address] Jul, [facility] [place] [id number] [address] Jul, [facility] [place] [address] [address] Jun, [facility] [place] [id number] [address] Jun, [facility] [place] [address] [address] Jun, [facility] [place] [id number] [address] Jun, [facility] [place] [address] [address] Jun, [facility] [place] [facility] [address] [id number] [place] [address] May, [facility] [place] [facility] [address] [id number] [place] [address] May, 2014 [facility] [place] [facility] [address] [facility] [id number] [place] [address] May, 2014 [facility] [place] [facility] [address] [id number] [place] [address] May, 2014 [facility] [place] [facility] [address] [id number] [place] [address] May, [facility] [place] [facility] [address] [facility] [id number] [place] [address] May, 2014 [facility] [place] [facility] [address] [facility] [id number] [place] [address] May, 2014 [facility] [place] [facility] [address] [facility] [id number] [place] [address] May, 2014 [facility] [place] [facility] [address] [facility] [id number] [place] [address] May, 2014 [facility] [place] [facility] [address] [facility] [id number] [place] [address] May, [facility] [place] [facility] [address] [facility] [id number] [place] [address] May, 2014 [facility] [place] [facility] [address] [facility] [id number] [address] May, 2014 [facility] [place] [facility] [address] [facility] [id number] [place] [address] May, [facility] [place] [facility] [address] [facility] [id number] [place] [address] Apr, [facility] [place] [facility] [address] [facility] [id number] [address] Apr, [facility] [place] [facility] [address] [id number] [place] [address] Apr, [facility] [place] [facility] [address] [id number] [place] [address] Apr, [facility] [place] [facility] [address] [id number] [place] [address] Apr, [facility] [place] [facility] [address] [id number] [place] [address] Apr, [facility] [place] [facility] [address] [id number] [place] [address] Apr, [facility] [place] [facility] [address] [id number] [place] [address] Mar, [facility] [place] [facility] [address] [id number] [place] [address] Mar, [facility] [place] [facility] [address] [id number] [place] [address] Mar, [facility] [place] [facility] [address] [id number] [place] [address] Mar, [facility] [place] [facility] [address] [id number] [place] [address] Mar, [facility] [place] [facility] [address] [id number] [place] [address] Mar, [facility] [place] [facility] [address] [id number] [place] [address] Feb, [facility] [place] [facility] [address] [id number] [place] [address] Feb, [facility] [place] [facility] [address] [id number] [place] [address] Feb, [facility] [place] [facility] [address] [id number] [place] [address] Feb, [facility] [place] [facility] [address] [id number] [place] [address] Feb, [facility] [place] [facility] [address] [id number] [place] [address] Feb, [facility] [place] [facility] [address] [id number] [place] [address] Jan, [facility] [place] [facility] [address] [id number] [place] [address] Jan, [facility] [place] [facility] [address] [id number] [place] [address] Jan, [facility] [place] [facility] [address] [id number] [place] [address] Jan, [facility] [place] [facility] [address] [id number] [place] [address] Jan, [facility] [place] [facility] [address] [id number] [place] [address] Jan, [facility] [place] [facility] [address] [id number] [place] [address] Jan, [facility] [place] [facility] [address] [id number] [place] [address] Jan, [facility] [place] [facility] [address] [id number] [place] [address] Dec, [facility] [place] [facility] [address] [id number] [address] 25 Dec, 2013 [facility] [place] [facility] [address] [id number] [place] [address] 23 Dec, 2013 [facility] [place] [facility] [address] [id number] [place] [address] 23 Dec, 2013 [facility] [place] [facility] [address] [id number] [place] [address] 13 Dec, 2013 [facility] [place] [facility] [address] [id number] [place] [address] 10 Dec, 2013 [facility] [place] [facility] [address] [id number] [place] [address] Dec, [facility] [place] [facility] [address] [id number] [place] [address] Nov, [facility] [place] [facility] [address] [id number] [place] [address] Nov, [facility] [place] [facility] [address] [id number] [place] [address] Oct, [facility] [place] [facility] [address] [id number] [place] [address] Oct, [facility] [place] [facility] [address] [id number] [place] [address] Oct, [facility] [place] [facility] [address] [id number] [place] [address] Oct, [facility] [place] [facility] [address] [id number] [place] [address] Sep, [facility] [place] [facility] [address] [id number] [place] [address] Sep, [facility] [place] [facility] [address] [id number] [place] [address] Sep, [facility] [place] [facility] [address] [id number] [place] [address] Sep, [facility] [place] [facility] [address] [id number] [place] [address] Sep, [facility] [place] [facility] [address] [id number] [place] [address] Sep, [facility] [place] [facility] [address] [id number] [place] [address] Sep, [facility] [place] [facility] [address] [id number] [place] [address] Sep, [facility] [place] [facility] [address] [id number] [place] [address] August, [facility] [place] [facility] [address] [id number] [place] [address] August, [facility] [place] [facility] [address] [id number] [place] [address] August, [facility] [place] [facility] [address] [id number] [place] [address] August, [facility] [place] [facility] [address] [id number] [place] [address] Jul, [facility] [place] [facility] [address] [id number] [place] [address] Jul, [facility] [place] [facility] [address] [id number] [place] [address] Jul, [facility] [place] [facility] [address] [id number] [place] [address] Jul, [facility] [place] [facility] [address] [id number] [place] [address] Jul, [facility] [place] [facility] [address] [id number] [place] [address] 16 Jul, 2013 [facility] [place] [facility] [address] [id number] [place] [address] Jul, [facility] [place] [facility] [address] [id number] [place] [address] Jul, [facility] [place] [facility] [address] [id number] [place] [address] Jun, [facility] [place] [facility] [address] [id number] [place] [address] Jun, [facility] [place] [facility] [address] [id number] [place] [address] Jun, [facility] [place] [facility] [address] [id number] [place] [address] Jun, [facility] [place] [facility] [address] [id number] [address] 06 Jun, 2013 [facility] [address] [id number] [place] [address] Jun, [facility] [place] [facility] [address] [id number] [place] [address] Jun, [facility] [place] [facility] [address] [id number] [place] [address] Jun, [facility] [place] [facility] [address] [id number] [place] [address] May, [facility] [place] [facility] [address] [id number] [place] [address] May, [facility] [place] [facility] [address] [id number] [place] [address] Apr, [facility] [address] [id number] [place] [address] Apr, [facility] [place] [facility] [address] [id number] [place] [address] Mar, [facility] [address] [id number] [place] [address] 24 Mar, 2013 [facility] [place] [facility] [address] [facility] [id number] [place] [address] Mar, [facility] [place] [facility] [address] [id number] [place] [address] 18 Mar, 2013 [facility] [place] [facility] [address] [id number] [place] [address] Mar, [facility] [place] [facility] [address] [id number] [place] [address] Mar, [facility] [place] [facility] [address] [id number] [place] [address] Mar, [facility] [place] [facility] [address] [facility] [id number] [place] [address] Feb, [facility] [place] [facility] [address] [id number] [place] [address] Feb, [facility] [place] [facility] [address] [id number] [place] [address] Feb, [facility] [place] [facility] [address] [id number] [place] [address] Feb, [facility] [place] [facility] [address] [id number] [place] [address] Feb, [facility] [place] [facility] [address] [id number] [place] [address] Feb, [facility] [place] [facility] [address] [id number] [place] [address] 26 Dec, 2012 [facility] [place] [facility] [address] [id number] [place] [address] 18 Dec, 2012 [facility] [place] [facility] [address] [id number] [place] [address] Dec, [facility] [place] [facility] [address] [id number] [place] [address] Dec, [facility] [place] [facility] [address] [id number] [place] [address] Dec, [facility] [place] [facility] [address] [id number] [place] [address] Nov, [facility] [place] [facility] [address] [id number] [place] [address] Nov, [facility] [place] [facility] [address] [id number] [place] [address] Oct, [facility] [place] [facility] [address] [id number] [place] [address] August, [facility] [place] [facility] [address] [id number] [place] [address] August, [facility] [place] [facility] [address] [id number] [place] [address] August, [facility] [place] [facility] [address] [id number] [place] [address] Jul, [facility] [place] [facility] [address] [id number] [place] [address] Jul, [facility] [place] [facility] [address] [id number] [place] [address] Jul, [facility] [place] [facility] [address] [id number] [place] [address] Jun, [facility] [place] [facility] [address] [id number] [place] [address] Jun, [facility] [place] [facility] [address] [id number] [place] [address] Jun, [facility] [place] [facility] [address] [id number] [place] [address] Jun, [facility] [place] [facility] [address] [id number] [place] [address] Jun, [facility] [place] [facility] [address] [id number] [place] [address] Jun, [facility] [place] [facility] [address] [id number] [place] [address] Jun, [facility] [place] [facility] [address] [id number] [place] [address] May, [facility] [place] [facility] [address] [id number] [place] [address] May, [facility] [place] [facility] [address] [id number] [place] [address] 06 May, 2012 [facility] [place] [facility] [address] [id number] [place] [address] 05 May, 2012 [facility] [place] [facility] [address] [id number] [place] [address] Apr, [facility] [place] [facility] [address] [id number] [place] [address] Apr, [facility] [address] [id number] [place] [address] Apr, [facility] [place] [facility] [address] [id number] [place] [address] Mar, [facility] [place] [facility] [address] [id number] [place] [address] Mar, [facility] [place] [facility] [address] [id number] [place] [address] Mar, [facility] [place] [facility] [address] [id number] [place] [address] Mar, [facility] [place] [facility] [address] [id number] [place] [address] Mar, [facility] [place] [facility] [address] [id number] [place] [address] Mar, [facility] [place] [facility] [address] [id number] [place] [address] Mar, [facility] [place] [facility] [address] [id number] [place] [address] Mar, [facility] [place] [facility] [address] [id number] [place] [address] Feb, [facility] [place] [facility] [address] [id number] [place] [address] Feb, [facility] [place] [facility] [address] [id number] [place] [address] Feb, [facility] [place] [facility] [address] [id number] [place] [address] Jan, [facility] [place] [facility] [address] [id number] [place] [address] Jan, [facility] [place] [facility] [address] [id number] [place] [address] Jan, [facility] [place] [facility] [address] [id number] [place] [address] Jan, [facility] [place] [facility] [address] [id number] [place] [address] Jan, [facility] [place] [facility] [address] [id number] [place] [address] Jan, [facility] [place] [facility] [address] [id number] [place] [address] Jan, [facility] [place] [facility] [address] [id number] [place] [address] Dec, [facility] [place] [facility] [address] [id number] [place] [address] 24 Dec, 2011 [facility] [place] [facility] [address] [id number] [place] [address] Dec, [facility] [place] [facility] [address] [id number] [place] [address] Nov, [facility] [place] [facility] [address] [id number] [place] [address] Nov, [facility] [place] [facility] [address] [id number] [place] [address] Nov, [facility] [place] [facility] [address] [id number] [place] [address] Nov, [facility] [place] [facility] [address] [id number] [address] Oct, [facility] [place] [facility] [address] [id number] [place] [address] Oct, [facility] [place] [facility] [address] [id number] [place] [address] Oct, [facility] [place] [facility] [address] [id number] [place] [address] Sep, [facility] [place] [facility] [address] [id number] [place] [address] 16 Sep, 2011 [facility] [place] [facility] [address] [id number] [place] [address] 13 Sep, 2011 [facility] [place] [facility] [address] [id number] [place] [address] 11 Sep, 2011 [facility] [place] [facility] [address] [id number] [place] [address] 07 Sep, 2011 [facility] [place] [facility] [address] [id number] [place] [address] Sep, [facility] [place] [facility] [address] [id number] [place] [address] August, [facility] [place] [facility] [address] [id number] [place] [address] Jul, [facility] [place] [facility] [address] [id number] [place] [address] 18 Jul, 2011 [facility] [place] [facility] [address] [id number] [place] [address] Jul, [facility] [place] [facility] [address] [id number] [place] [address] 05 Jul, 2011 [facility] [place] [facility] [address] [facility] [id number] [place] [address] Jul, [facility] [place] [facility] [address] [id number] [place] [address] 29 Jun, 2011 [facility] [place] [facility] [address] [id number] [place] [address] 27 Jun, 2011 [facility] [place] [facility] [address] [id number] [place] [address] 15 Jun, 2011 [facility] [place] [facility] [address] [id number] [place] [address] 15 Jun, 2011 [facility] [place] [facility] [address] [facility] [id number] [place] [address] 09 Jun, 2011 [facility] [place] [facility] [address] [id number] [place] [address] May, [facility] [place] [facility] [address] [id number] [place] [address] May, [facility] [place] [facility] [address] [id number] [place] [address] May, [facility] [place] [facility] [address] [id number] [place] [address] May, [facility] [place] [facility] [address] [id number] [place] [address] May, [facility] [place] [facility] [address] [id number] [place] [address] May, [facility] [place] [facility] [address] [id number] [place] [address] May, [facility] [place] [facility] [address] [id number] [place] [address] Apr, [facility] [place] [facility] [address] [id number] [place] [address] Mar, [facility] [place] [facility] [address] [id number] [place] [address] Mar, [facility] [place] [facility] [address] [id number] [place] [address] Mar, [facility] [place] [facility] [address] [id number] [place] [address] Mar, [facility] [place] [facility] [address] [id number] [place] [address] 08 Mar, 2011 [facility] [place] [facility] [address] [id number] [place] [address] 23 Feb, 2011 [facility] [place] [facility] [address] [id number] [place] [address] 14 Feb, 2011 [facility] [place] [facility] [address] [id number] [place] [address] 14 Feb, 2011 [facility] [address] [id number] [place] [address] 14 Feb, 2011 [facility] [place] [facility] [address] [id number] [place] [address] 07 Feb, 2011 [facility] [place] [facility] [address] [id number] [place] [address] 04 Feb, 2011 [facility] [place] [facility] [address] [id number] [place] [address] 04 Feb, 2011 [facility] [place] [facility] [address] [id number] [place] [address] 10 Jan, 2011 [facility] [place] [facility] [address] [id number] [place] [address] 12 Dec, 2010 [facility] [address] [id number] [place] [address] 11 Oct, 2010 [facility] [place] [facility] [address] [id number] [place] [address] Jun, [facility] [place] [facility] [address] [id number] [place] [address] 23 Mar, 2010 [facility] [place] [facility] [address] [id number] [place] [address] 23 Mar, 2010 [facility] [place] [facility] [address] [id number] [place] [address] 16 Mar, 2010 [facility] [place] [facility] [address] [id number] [place] [address] 16 Mar, 2010 [facility] [place] [facility] [address] [id number] [place] [address] 15 Mar, 2010 [facility] [place] [facility] [address] [id number] [place] [address] 10 Mar, 2010 [facility] [place] [facility] [address] [id number] [place] [address] 10 Mar, 2010 [facility] [place] [facility] [address] [id number] [place] [address] 05 Mar, 2010 [facility] [address] [id number] [place] [address] 03 Mar, 2010 [facility] [facility] [address] [id number] [place] [address] Mar, [facility] [place] [facility] [address] [id number] [place] [address] Jan, [facility] [place] [facility] [address] [id number] [place] [address] Jan, [facility] [place] [facility] [address] [id number] [place] [address] Jan, [facility] [address] [id number] [place] [address] Nov, [facility] [address] [id number] [place] [address] Oct, [facility] [address] [id number] [place] [address] 31 Mar, 2009 [facility] [address] [id number] [place] [address] Mar, [facility] [address] [id number] [place] [address] 17 Mar, 2009 [facility] [place] [facility] [address] [id number] [place] [address] 17 Mar, 2009 [facility] [place] [facility] [address] [id number] [place] [address] 17 Dec, 2008 [facility] [place] [facility] [address] [id number] [place] [address] August, [facility] [place] [facility] [address] [id number] [place] [address] August, [facility] [place] [facility] [address] [id number] [place] [address] Jul, [facility] [place] [address] [facility] [id number] [place] [address] Jan, [facility] [place] [address] [facility] [id number] [place] [address] Jan, IMMUNIZATIONS No Known Immunizations SOCIAL HISTORY Never Assessed REASON FOR VISIT Refill Request PLAN OF CARE VITAL SIGNS MEDICATIONS Medication Instructions Dosage Frequency Start Date End Date Duration Status Cetirizine HCl 10 mg Orally Once a day 1 tablet 24h May, Active RESULTS No Results PROCEDURES No Known [...]
--- OUTSIDE RECORDS SUMMARY | 2018-09-22 02:41 | XMS REPORT ---
Author Author FLORENTINEZEKIEL PUCKETT Organization [facility] Address [address] [place] [address] Care Team Providers Care Rail Director Name Role Phone DANICA LERMAY Unavailable PROBLEMS Type Condition ICD9-CM Code WEE50-WQ Code Onset Dates Condition Status SNOMED Code Problem Vitamin D deficiency E55.9 Active 20120905 Problem Chronic gastritis without bleeding, unspecified gastritis type K29.50 Active 9114445 Problem Osteoporosis M81.0 Active 59386465 Problem Unspecified abdominal pain R10.9 Active 052209391 Problem Fibromyalgia M79.7 Active 75837770 Problem Chronic pain syndrome G89.4 Active 545693632 Problem Chronic tension-type headache, not intractable G44.229 Active 930677715 Problem RUQ abdominal pain R10.11 Active 872572955 Problem Pancytopenia D61.818 Active 538888388 Problem Right sided sciatica M54.31 Active 38512322 Problem Hypothyroidism, unspecified hypothyroidism type E03.9 Active 49558872 Problem Drug induced constipation K59.03 Active 821356059535302 Problem Porokeratosis Q82.8 Active 638625127 Problem Chronic prescription opiate use Z79.891 Active 397850833 Problem Pure hypercholesterolemia E78.00 Active 482166182 Problem Leukopenia, unspecified type D72.819 Active 65026209 Problem History of hepatitis C Z86.19 Active 32248533737067 Problem Allergic rhinitis, unspecified allergic rhinitis type J30.9 Active 77494045 Problem Chronic obstructive pulmonary disease, unspecified COPD type J44.9 Active 74523104 Problem Allergy to intravenous contrast Z91.041 Active 465541146 Problem Other constipation K59.09 Active 298606160 Problem Atrial fibrillation, unspecified type I48.91 Active 23243337 Problem 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 Active 168784454 Problem Major depression, recurrent F33.9 Active 18031526 Problem Primary insomnia F51.01 Active 6798916 Problem Hot flashes N95.1 Active 843841920 Problem Vaginal atrophy N95.2 Active 850875917 Problem Polyneuropathy associated with underlying disease G63 Active 679163923 Problem Trigger point with back pain M54.9 Active 551370194 Problem Low back pain M54.5 Active 625447713 Problem Plantar fasciitis M72.2 Active 180477591 ALLERGIES No Information ENCOUNTERS Encounter Location Date Diagnosis [place] [address] [address] Feb, Hypothyroidism, unspecified hypothyroidism type E03.9 [place] [address] [address] Feb, Chronic pain syndrome G89.4 [place] [address] [address] Jan, Fibromyalgia M79.7 ; Chronic pain syndrome G89.4 ; Low back pain M54.5 ; Hypothyroidism, unspecified hypothyroidism type E03.9 ; Leukopenia, unspecified type D72.819 ; Pure hypercholesterolemia E78.00 ; Right upper quadrant pain R10.11 ; Encounter for immunization Z23 ; Chronic gastritis without bleeding, unspecified gastritis type K29.50 ; Chronic prescription opiate use Z79.891 and BMI 28.0-28.9,adult Z68.28 [place] [address] [place] [id number] [place] [address] Jan, Chronic pain syndrome G89.4 [place] [address] [address] Dec, Chronic pain syndrome G89.4 [place] [address] [address] Nov, Onychocryptosis L60.0 [place] [address] [address] Nov, Chronic pain syndrome G89.4 [place] [address] [place] [id number] [place] [address] Nov, Trochanteric bursitis of both hips M70.61 [place] [address] [place] [address] Oct, Hypothyroidism, unspecified hypothyroidism type E03.9 and Atrial fibrillation, unspecified type I48.91 [place] [address] [place] [id number] [place] [address] Oct, Fibromyalgia M79.7 ; Chronic pain syndrome G89.4 ; Hypothyroidism, unspecified hypothyroidism type E03.9 ; Overweight (BMI 25.0-29.9) E66.3 and Atrial fibrillation, unspecified type I48.91 [place] [address] [place] [id number] [place] [address] Oct, Chronic pain syndrome G89.4 [place] [address] [place] [id number] [place] [address] Sep, Chronic pain syndrome G89.4 [place] [address] [place] [id number] [place] [address] August, Somatic dysfunction of lumbar region M99.03 and Somatic dysfunction of pelvis region M99.05 [place] [address] [place] [id number] [place] [address] August, Chronic pain syndrome G89.4 [place] [address] [place] [id number] [place] [address] Jul, Trochanteric bursitis of left hip M70.62 and Trochanteric bursitis, right hip M70.61 [place] [address] [place] [id number] [place] [address] Jul, [place] [address] [place] [id number] [place] [address] Jul, Chronic pain syndrome G89.4 [place] [address] [place] [id number] [place] [address] Jul, Hypothyroidism, unspecified hypothyroidism type E03.9 [place] [address] [place] [id number] [place] [address] Jul, Hypothyroidism, unspecified hypothyroidism type E03.9 [facility] [address] [place] [id number] [place] [address] Jul, Chronic tension-type headache, not intractable G44.229 ; Atrial fibrillation, unspecified type I48.91 ; Chronic pain syndrome G89.4 ; Hypothyroidism, unspecified hypothyroidism type E03.9 ; Pancytopenia D61.818 ; History of hepatitis C Z86.19 ; Vaginal atrophy N95.2 ; RUQ abdominal pain R10.11 ; Chronic prescription opiate use Z79.891 ; Osteoporosis M81.0 and Screening for breast cancer Z12.31 [place] [address] [address] Jun, [place] [address] [address] May, [facility] [address] [address] May, [facility] [address] [place] [id number] [place] [address] May, [facility] [address] [place] [id number] [place] [address] Apr, [facility] [address] [place] [id number] [place] [address] Apr, Hypothyroidism, unspecified hypothyroidism type E03.9 [facility] [address] [place] [id number] [place] [address] Apr, Hypothyroidism, unspecified hypothyroidism type E03.9 and Leukopenia, unspecified type D72.819 [place] [address] [place] [id number] [place] [address] Mar, [facility] [address] [place] [id number] [place] [address] Mar, Leukopenia, unspecified type D72.819 [place] [address] [address] Mar, Hypothyroidism, unspecified hypothyroidism type E03.9 and Low hemoglobin D64.[address] [address] Mar, Hypothyroidism, unspecified hypothyroidism type E03.9 [place] [address] [address] Mar, Osteoporosis M81.0 ; Low hemoglobin D64.9 and Hypothyroidism, unspecified hypothyroidism type E03.[address] [address] Mar, Hypothyroidism, unspecified hypothyroidism type E03.9 ; Bilirubin in urine R82.2 and Pancytopenia D61.[address] [address] Feb, [facility] [address] [address] Feb, Cough R05 and Bronchitis J40 [facility] [place] [address] [address] 14 Feb, 2017 Other viral agents as the cause of diseases classified elsewhere B97.89 and Acute upper respiratory infection, unspecified J06.[address] [address] Feb, Fibromyalgia M79.7 ; Chronic pain syndrome G89.4 ; Hypothyroidism, unspecified hypothyroidism type E03.9 ; Primary insomnia F51.01 ; Osteoporosis M81.0 ; Vision abnormalities H53.9 ; Pancytopenia D61.818 ; BMI 28.0-28.9,adult Z68.28 and Encounter for immunization Z23 [address] [address] 03 Feb, 2017 Neuroma D36.10 and Capsulitis of right foot M77.[address] [address] Feb, [facility] [address] [place] [address] Feb, Hypothyroidism, unspecified hypothyroidism type E03.9 [facility] [address] [place] [id number] [place] [address] Jan, [facility] [address] [place] [id number] [place] [address] Jan, Atrial fibrillation, unspecified type I48.91 [facility] [address] [place] [id number] [place] [address] Jan, [facility] [address] [place] [id number] [place] [address] Jan, Fibromyalgia M79.7 ; Atrial fibrillation, unspecified type I48.91 ; Pain of left hand M79.642 ; Pain in right hand M79.641 ; Chronic prescription opiate use Z79.891 ; Chronic pain syndrome G89.4 ; Elevated fasting glucose R73.01 and Hypothyroidism, unspecified hypothyroidism type E03.9 [facility] [address] [place] [id number] [place] [address] Jan, [facility] [address] [place] [id number] [place] [address] Dec, Trochanteric bursitis of both hips M70.61 [facility] [address] [place] [id number] [place] [address] Dec, [facility] [address] [place] [id number] [place] [address] Dec, [facility] [address] [place] [id number] [place] [address] Nov, [facility] [address] [place] [id number] [place] [address] Nov, Unilateral headache R51 [facility] [address] [place] [id number] [place] [address] Nov, [facility] [address] [place] [id number] [place] [address] Oct, Unilateral headache R51 ; 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 and Allergy to intravenous contrast Z91.041 [facility] [address] [place] [id number] [place] [address] Oct, [facility] [address] [address] Oct, [facility] [address] [place] [id number] [place] [address] Sep, Hypothyroidism, unspecified hypothyroidism type E03.9 [place] [address] [address] Sep, Hypothyroidism, unspecified hypothyroidism type E03.9 and Bilirubin in urine R82.2 [place] [address] [place] [id number] [place] [address] Sep, Trochanteric bursitis of both hips M70.61 [place] [address] [place] [id number] [place] [address] Sep, Hypothyroidism, unspecified hypothyroidism type E03.9 ; Dysuria R30.0 ; Chronic tension-type headache, not intractable G44.229 and Drug induced constipation K59.03 [place] [address] [place] [id number] [place] [address] Sep, [facility] [address] [place] [id number] [place] [address] Sep, [facility] [address] [place] [id number] [place] [address] August, [facility] [address] [place] [id number] [place] [address] Jul, [facility] [address] [place] [id number] [place] [address] Jul, Trochanteric bursitis of right hip M70.61 [facility] [address] [place] [id number] [place] [address] Jul, Hypothyroidism, unspecified hypothyroidism type E03.9 [facility] [address] [place] [id number] [place] [address] Jul, Fibromyalgia M79.7 ; Chronic pain syndrome G89.4 ; Hypothyroidism, unspecified hypothyroidism type E03.9 and Other constipation K59.09 [facility] [address] [place] [id number] [place] [address] Jun, Swollen tonsil J35.1 and Strep throat J02.0 [place] [address] [address] Jun, [place] [address] [place] [id number] [place] [address] Jun, Acute maxillary sinusitis J01.00 [place] [address] [address] Jun, Hypothyroidism, unspecified hypothyroidism type E03.9 [facility] [address] [place] [id number] [place] [address] Jun, Chronic pain syndrome G89.4 ; Fibromyalgia M79.7 ; Hypothyroidism, unspecified hypothyroidism type E03.9 and Chronic prescription opiate use Z79.891 [place] [address] [place] [id number] [place] [address] May, [facility] [address] [place] [id number] [place] [address] Apr, Hypothyroidism, unspecified hypothyroidism type E03.9 [facility] [address] [place] [id number] [place] [address] Apr, [facility] [address] [place] [id number] [place] [address] Apr, Lipid screening Z13.220 and Hypothyroidism, unspecified hypothyroidism type E03.9 [place] [address] [place] [id number] [place] [address] Apr, [place] [address] [place] [id number] [place] [address] Mar, Trochanteric bursitis of both hips M70.61 [place] [address] [place] [id number] [place] [address] Mar, [place] [address] [place] [id number] [place] [address] Mar, Plantar fasciitis M72.2 and Porokeratosis Q82.8 [place] [address] [place] [id number] [place] [address] Feb, Lipid screening Z13.220 ; Vitamin D deficiency E55.9 and Hypothyroidism, unspecified hypothyroidism type E03.9 [place] [address] [place] [id number] [place] [address] Feb, Chronic pain syndrome G89.4 ; Hypothyroidism, unspecified hypothyroidism type E03.9 ; Pancytopenia D61.818 ; Vaginal atrophy N95.2 ; Chronic gastritis without bleeding, unspecified gastritis type K29.50 ; Vitamin D deficiency E55.9 ; Chronic prescription opiate use Z79.891 ; Adverse effect of other opioids, initial encounter T40.2X5A ; Drug induced constipation K59.03 ; Lipid screening Z13.220 and Encounter for immunization Z23 [place] [address] [place] [id number] [place] [address] Feb, [place] [address] [place] [id number] [place] [address] Feb, Ingrown toenail L60.0 [place] [address] [address] Jan, [place] [address] [place] [id number] [place] [address] Jan, Trochanteric bursitis of both hips M70.61 [place] [address] [place] [address] Jan, [facility] [address] [place] [address] Jan, [facility] [address] [place] [address] Jan, [facility] [address] [place] [address] Jan, Right sided sciatica M54.31 [facility] [address] [place] [id number] [place] [address] 23 Dec, 2015 Onychomycosis B35.1 [facility] [address] [place] [id number] [place] [address] 22 Dec, 2015 [facility] [address] [place] [id number] [place] [address] Dec, [facility] [address] [place] [id number] [place] [address] 09 Dec, 2015 [facility] [address] [place] [address] Dec, Osteoarthritis of right hip, unspecified osteoarthritis type M16.11 and Bursitis of right hip M70.71 [facility] [address] [address] Nov, [facility] [address] [place] [id number] [place] [address] Nov, [facility] [address] [place] [address] Nov, [facility] [address] [place] [id number] [place] [address] Nov, Hypothyroidism, unspecified hypothyroidism type E03.9 ; Vitamin D deficiency E55.9 and History of hepatitis C Z86.19 [facility] [address] [place] [address] Nov, Right upper quadrant pain R10.11 ; History of hepatitis C Z86.19 and Low back pain M54.5 [facility] [address] [place] [id number] [place] [address] Oct, Trochanteric bursitis, right hip M70.61 [facility] [address] [place] [id number] [place] [address] Oct, [facility] [address] [address] Oct, [facility] [address] [place] [id number] [place] [address] Oct, Trochanteric bursitis of both hips M70.61 and Right sided sciatica M54.31 [place] [address] [place] [id number] [place] [address] Oct, Trochanteric bursitis of both hips M70.61 [facility] [address] [address] Oct, RUQ abdominal pain R10.11 [place] [address] [address] Oct, Sciatic leg pain M54.30 [place] [address] [place] [id number] [place] [address] Oct, RUQ abdominal pain R10.11 [place] [address] [place] [id number] [place] [address] Oct, RUQ abdominal pain R10.11 ; History of hepatitis C Z86.19 and Trigger point with back pain M54.9 [place] [address] [address] Sep, [facility] [address] [place] [id number] [place] [address] Sep, Right sided sciatica M54.31 [facility] [address] [address] Sep, Hypothyroidism, unspecified hypothyroidism type E03.9 and Vitamin D deficiency E55.9 [place] [address] [place] [id number] [place] [address] Sep, Plantar fasciitis M72.2 and Porokeratosis Q82.8 [place] [address] [place] [id number] [place] [address] Sep, Hypothyroidism, unspecified hypothyroidism type E03.9 ; Chronic pain syndrome G89.4 ; Polyneuropathy associated with underlying disease G63 and Vitamin D deficiency E55.9 [place] [address] [place] [id number] [place] [address] August, [place] [address] [place] [id number] [place] [address] Jul, Plantar fasciitis M72.2 [place] [address] [address] Jul, Trochanteric bursitis, right hip M70.61 [place] [address] [place] [id number] [place] [address] Jul, Hypothyroidism, unspecified hypothyroidism type E03.9 [place] [address] [place] [id number] [place] [address] Jul, Hypothyroidism, unspecified hypothyroidism type E03.9 ; Chronic pain syndrome G89.4 and Polyneuropathy associated with underlying disease G63 [place] [address] [place] [id number] [place] [address] Jun, Trochanteric bursitis of both hips M70.61 [place] [address] [address] Jun, Vitamin D deficiency E55.9 ; Osteoporosis M81.0 ; Low back pain M54.5 and Plantar fasciitis M72.2 [place] [address] [place] [id number] [place] [address] May, Vitamin D deficiency E55.9 and Hypothyroidism, unspecified hypothyroidism type E03.9 [facility] [address] [place] [id number] [place] [address] May, Acute maxillary sinusitis J01.00 [facility] [address] [place] [id number] [place] [address] 18 May, 2015 Osteoporosis M81.0 and Hypothyroidism, unspecified hypothyroidism type E03.9 [place] [address] [place] [id number] [place] [address] 16 May, 2015 Osteoporosis M81.0 [place] [address] [place] [id number] [place] [address] May, [place] [address] [place] [id number] [place] [address] Apr, [place] [address] [place] [id number] [place] [address] Apr, Trochanteric bursitis of both hips M70.61 [place] [address] [place] [id number] [place] [address] Apr, Hypothyroidism, unspecified hypothyroidism type E03.9 [place] [address] [place] [id number] [place] [address] Apr, Chronic pain syndrome G89.4 ; Bilateral low back pain with sciatica, sciatica laterality unspecified M54.40 ; Pain in right hip M25.551 ; Pain in left hip M25.552 ; Chronic prescription opiate use Z79.899 ; Primary insomnia F51.01 and Hypothyroidism, unspecified hypothyroidism type E03.9 [place] [address] [place] [id number] [place] [address] Mar, [place] [address] [place] [id number] [place] [address] Feb, [facility] [address] [place] [id number] [place] [address] Feb, Chronic pain syndrome G89.4 and Major depression F32.9 [facility] [address] [place] [id number] [place] [address] Feb, Fatigue R53.83 [facility] [address] [place] [id number] [place] [address] Feb, History of fracture Z87.81 [place] [address] [place] [id number] [place] [address] Feb, Major depression, recurrent F33.9 and Generalized anxiety disorder F41.1 [place] [address] [place] [id number] [place] [address] Feb, [place] [address] [place] [id number] [place] [address] Jan, Hypothyroidism, unspecified hypothyroidism type E03.9 [place] [address] [place] [id number] [place] [address] Jan, Abdominal pain R10.9 and Hypothyroidism, unspecified hypothyroidism type E03.9 [place] [address] [place] [id number] [place] [address] Jan, Abdominal pain R10.9 [place] [address] [place] [id number] [place] [phone] Jan, Hypothyroidism, unspecified hypothyroidism type E03.9 [place] [address] [place] [id number] [place] [phone] Jan, [place] [address] [place] [id number] [place] [phone] Jan, 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 and Hypothyroidism, unspecified hypothyroidism type E03.9 [place] [id number] [place] [phone] Jan, 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 ; Abdominal pain R10.9 ; Dyspareunia N94.1 ; Encounter for immunization Z23 ; History of fracture Z87.81 ; Fatigue R53.83 ; Throat fullness R68.89 ; Bruises easily R23.8 ; Hot flashes N95.1 ; Depression F32.9 and Vaginal atrophy N95.2 [place] [id number] [phone] Jan, 2015 Hypothyroidism, unspecified hypothyroidism type E03.9 [place] [address] [phone] Jan, Unspecified abdominal pain R10.9 ; Chronic obstructive pulmonary disease, unspecified COPD type J44.9 ; Allergic rhinitis, unspecified allergic rhinitis type J30.9 ; Chronic pain syndrome G89.4 ; Hypothyroidism, unspecified hypothyroidism type E03.9 ; Chest pain, unspecified chest pain type R07.9 and Plantar fasciitis M72.2 [place] [address] [address] Jan, Trochanteric bursitis of both hips M70.61 [place] [address] [address] Dec, [place] [address] [address] Nov, [place] [address] [address] Nov, [place] [address] [address] Nov, Constipation 564.00 [place] [address] [address] Oct, Chronic pain 338.29 and Hypothyroidism 244.9 [place] [address] [address] Oct, [place] [address] [address] Sep, [place] [id number] [address] 17 Sep, 2014 [facility] [id number] [address] Sep, [facility] [id number], [place] [address] Sep, [facility] [id number], [place] [address] Sep, [facility] [id number] [address] Sep, [facility] [id number] [place] [address] Sep, COPD exacerbation 491.21 ; Chronic pain 338.29 ; Hypothyroidism 244.9 and Pancytopenia 284.19 [facility] [id number], [place] [address] August, [facility] [id number], [place] [address] Jul, [facility] [id number], [place] [address] Jul, [facility] [id number], [place] [address] Jun, [facility] [id number], [place] [address] Jun, [facility] [id number], [place] [address] Jun, [facility] [id number], [place] [address] Jun, [facility] [id number], [place] [address] Jun, [facility] [address] [place] [id number] [address] May, [facility] [place] [facility] [address] [id number] [place] [address] May, 2014 [facility] [place] [facility] [address] [id number] [place] [address] May, 2014 [facility] [place] [facility] [address] [id number] [place] [address] May, 2014 [facility] [place] [facility] [address] [id number] [place] [address] May, 2014 [facility] [place] [facility] [address] [id number] [place] [address] May, 2014 [facility] [place] [facility] [address] [id number] [place] [address] May, 2014 [facility] [place] [facility] [address] [id number] [place] [address] May, 2014 [facility] [place] [facility] [address] [id number] [place] [address] May, [facility] [place] [facility] [address] [id number] [place] [address] May, [facility] [place] [facility] [address] [id number] [place] [address] May, [facility] [place] [facility] [address] [id number] [place] [address] May, [facility] [place] [facility] [address] [id number] [place] [address] May, [facility] [place] [facility] [address] [id number] [place] [address] Apr, [facility] [place] [facility] [address] [id number] [place] [address] Apr, [facility] [place] [facility] [address] [id number] [place] [address] Apr, [facility] [place] [facility] [address] [id number] [place] [address] Apr, [facility] [address] [id number] [place] [address] Apr, [facility] [place] [facility] [address] [id number] [place] [address] Apr, [facility] [address] [id number] [place] [address] Apr, [facility] [place] [facility] [address] [id number] [place] [address] Mar, [facility] [address] [id number] [place] [address] Mar, [facility] [address] [id number] [place] [address] Mar, [facility] [place] [facility] [address] [id number] [place] [address] Mar, [facility] [address] [id number] [place] [address] Mar, [facility] [place] [facility] [address] [id number] [place] [address] Mar, [facility] [address] [id number] [place] [address] Feb, [facility] [place] [facility] [address] [id number] [place] [address] Feb, [facility] [place] [facility] [address] [id number] [place] [address] Feb, [facility] [place] [facility] [address] [id number] [place] [address] Feb, [facility] [place] [facility] [address] [id number] [place] [address] Feb, [facility] [place] [facility] [address] [id number] [place] [address] Feb, [facility] [place] [facility] [address] [id number] [place] [address] Jan, [facility] [place] [facility] [address] [id number] [place] [address] Jan, [facility] [place] [facility] [address] [id number] [place] [address] Jan, [facility] [place] [facility] [address] [id number] [place] [address] Jan, [facility] [place] [facility] [address] [id number] [place] [address] Jan, [facility] [place] [facility] [address] [id number] [place] [address] Jan, [facility] [place] [facility] [address] [id number] [place] [address] Jan, [facility] [place] [facility] [address] [id number] [place] [address] Jan, [facility] [place] [facility] [address] [id number] [place] [address] 25 Dec, 2013 [facility] [place] [facility] [address] [id number], [place] [address] 25 Dec, 2013 [facility] [place] [facility] [address] [id number], [place] [address] 23 Dec, 2013 [facility] [place] [facility] [address] [id number], [place] [address] 23 Dec, 2013 [facility] [place] [facility] [address] [id number], [place] [address] 13 Dec, 2013 [facility] [place] [facility] [address] [id number], [place] [address] 10 Dec, 2013 [facility] [place] [facility] [address] [id number], [place] [address] 10 Dec, 2013 [facility] [place] [facility] [address] [id number], [place] [address] Nov, [facility] [place] [facility] [address] [id number] [place] [address] Nov, [facility] [place] [facility] [address] [id number] [place] [address] Oct, [facility] [place] [facility] [address] [id number] [place] [address] Oct, [facility] [place] [facility] [address] [id number] [place] [address] Oct, [facility] [place] [facility] [address] [id number] [place] [address] Oct, [facility] [place] [facility] [address] [id number] [place] [address] Sep, [facility] [place] [facility] [address] [id number] [place] [address] Sep, [facility] [place] [facility] [address] [id number] [place] [address] Sep, [facility] [place] [facility] [address] [id number] [place] [address] Sep, [facility] [place] [facility] [address] [id number] [place] [address] Sep, [facility] [place] [facility] [address] [id number] [place] [address] Sep, [facility] [place] [facility] [address] [id number] [place] [address] Sep, [facility] [place] [facility] [address] [id number] [place] [address] Sep, [facility] [place] [facility] [address] [id number] [place] [address] August, [facility] [place] [facility] [address] [id number] [place] [address] August, [facility] [place] [facility] [address] [id number] [place] [address] August, [facility] [place] [facility] [address] [id number] [place] [address] August, [facility] [place] [facility] [address] [id number] [place] [address] Jul, [facility] [place] [facility] [address] [id number] [place] [address] Jul, [facility] [place] [facility] [address] [id number] [place] [address] Jul, [facility] [place] [facility] [address] [id number] [place] [address] 24 Jul, 2013 [facility] [place] [facility] [address] [id number] [place] [address] 17 Jul, 2013 [facility] [place] [facility] [address] [id number] [place] [address] 16 Jul, 2013 [facility] [place] [facility] [address] [id number] [place] [address] Jul, [facility] [place] [facility] [address] [id number] [place] [address] Jul, [facility] [place] [facility] [address] [id number] [place] [address] 18 Jun, 2013 [facility] [place] [facility] [address] [id number] [place] [address] 18 Jun, 2013 [facility] [place] [facility] [address] [id number] [place] [address] Jun, [facility] [place] [facility] [address] [id number] [place] [address] Jun, [facility] [place] [facility] [address] [id number] [place] [address] 06 Jun, 2013 [facility] [place] [facility] [address] [id number] [place] [address] Jun, [facility] [place] [facility] [address] [id number] [place] [address] Jun, [facility] [place] [facility] [address] [id number] [place] [address] Jun, [facility] [place] [facility] [address] [id number] [place] [address] May, [facility] [place] [facility] [address] [id number] [place] [address] May, [facility] [place] [facility] [address] [id number] [place] [address] Apr, [facility] [place] [facility] [address] [id number] [place] [address] Apr, [facility] [place] [facility] [address] [id number] [place] [address] Mar, [facility] [place] [facility] [address] [id number] [place] [address] 24 Mar, 2013 [facility] [place] [facility] [address] [id number] [place] [address] Mar, [facility] [place] [facility] [address] [id number] [place] [address] Mar, [facility] [place] [facility] [address] [id number] [place] [address] 18 Mar, 2013 [facility] [place] [facility] [address] [id number] [place] [address] 17 Mar, 2013 [facility] [place] [facility] [address] [id number] [place] [address] Mar, [facility] [place] [facility] [address] [id number] [place] [address] Feb, [facility] [place] [facility] [address] [id number] [place] [address] Feb, [facility] [place] [facility] [address] [id number] [place] [address] Feb, [facility] [address] [id number] [place] [address] Feb, [facility] [address] [id number] [place] [address] Feb, [facility] [address] [id number] [place] [address] Feb, [facility] [address] [id number] [place] [address] 26 Dec, 2012 [facility] [address] [id number] [place] [address] 18 Dec, 2012 [facility] [address] [id number] [place] [address] Dec, [facility] [address] [id number] [place] [address] Dec, [facility] [address] [id number] [place] [address] Dec, [facility] [address] [id number] [place] [address] Nov, [facility] [address] [id number] [place] [address] Nov, [facility] [address] [id number] [place] [address] Oct, [facility] [address] [id number] [place] [address] August, [facility] [address] [id number] [place] [address] August, [facility] [address] [id number] [place] [address] August, [facility] [address] [id number] [place] [address] Jul, [facility] [place] [facility] [address] [id number] [place] [address] Jul, [facility] [address] [id number] [place] [address] Jul, [facility] [address] [id number] [place] [address] Jun, [facility] [place] [facility] [address] [id number] [place] [address] Jun, [facility] [address] [id number] [place] [address] Jun, [facility] [address] [id number] [place] [address] Jun, [facility] [address] [id number] [place] [address] Jun, [facility] [address] [id number] [place] [address] Jun, [facility] [address] [id number] [place] [address] Jun, [facility] [address] [id number] [place] [address] May, [facility] [address] [id number] [place] [address] May, [facility] [place] [facility] [address] [id number] [place] [address] May, [facility] [place] [facility] [address] [id number] [place] [address] May, [facility] [place] [facility] [address] [id number] [place] [address] Apr, [facility] [place] [facility] [address] [id number] [place] [address] Apr, [facility] [place] [facility] [address] [id number] [place] [address] Apr, [facility] [place] [facility] [address] [id number] [place] [address] Mar, [facility] [place] [facility] [address] [id number] [place] [address] Mar, [facility] [place] [facility] [address] [id number] [place] [address] Mar, [facility] [place] [facility] [address] [id number] [place] [address] Mar, [facility] [place] [facility] [address] [id number] [place] [address] Mar, [facility] [place] [facility] [address] [id number] [place] [address] Mar, [facility] [place] [facility] [address] [id number] [place] [address] Mar, [facility] [place] [facility] [address] [id number] [place] [address] Mar, [facility] [place] [facility] [address] [id number] [place] [address] Feb, [facility] [place] [facility] [address] [facility] [id number] [place] [address] Feb, [facility] [place] [facility] [address] [id number] [place] [address] Feb, [facility] [place] [facility] [address] [id number], [place] [address] Jan, [facility] [place] [facility] [address] [id number] [place] [address] Jan, [facility] [place] [facility] [address] [facility] [id number] [place] [address] Jan, [facility] [place] [facility] [address] [facility] [id number], [place] [address] Jan, [facility] [place] [facility] [address] [id number] [place] [address] Jan, [facility] [place] [facility] [address] [id number] [place] [address] Jan, [facility] [place] [facility] [address] [id number] [place] [address] Jan, [facility] [place] [facility] [address] [id number] [place] [address] Dec, [facility] [place] [facility] [address] [id number] [place] [address] 24 Dec, 2011 [facility] [place] [facility] [address] [id number] [place] [address] Dec, [facility] [place] [facility] [address] [id number] [place] [address] Nov, [facility] [place] [facility] [address] [id number] [place] [address] Nov, [facility] [place] [facility] [address] [id number] [place] [address] Nov, [facility] [place] [facility] [address] [id number] [place] [address] Nov, [facility] [place] [facility] [address] [id number] [place] [address] Oct, [facility] [place] [facility] [address] [id number] [place] [address] Oct, [facility] [place] [facility] [address] [id number] [place] [address] Oct, [facility] [place] [facility] [address] [id number] [place] [address] Sep, [facility] [place] [facility] [address] [id number] [place] [address] Sep, [facility] [place] [facility] [address] [id number] [place] [address] Sep, [facility] [place] [facility] [address] [id number] [place] [address] Sep, [facility] [place] [facility] [address] [id number] [place] [address] Sep, [facility] [place] [facility] [address] [facility] [id number] [place] [address] Sep, [facility] [place] [facility] [address] [id number] [place] [address] August, [facility] [place] [facility] [address] [id number] [place] [address] Jul, [facility] [place] [facility] [address] [id number] [place] [address] Jul, [facility] [place] [facility] [address] [id number] [place] [address] Jul, [facility] [place] [facility] [address] [id number] [place] [address] Jul, [facility] [place] [facility] [address] [id number] [place] [address] Jul, [facility] [place] [facility] [address] [id number] [place] [address] 29 Jun, 2011 [facility] [place] [facility] [address] [id number] [place] [address] Jun, [facility] [place] [facility] [address] [id number], [place] [address] 15 Jun, 2011 [facility] [place] [facility] [address] [id number] [place] [address] 15 Jun, 2011 [facility] [place] [facility] [address] [facility] [id number] [place] [address] 09 Jun, 2011 [facility] [place] [facility] [address] [id number] [place] [address] May, [facility] [place] [facility] [address] [id number] [place] [address] 09 May, 2011 [facility] [address] [id number] [place] [address] May, [facility] [place] [facility] [address] [id number] [place] [address] May, [facility] [place] [facility] [address] [id number] [place] [address] May, [facility] [place] [facility] [address] [id number] [place] [address] May, [facility] [place] [facility] [address] [id number] [place] [address] May, [facility] [address] [id number] [place] [address] Apr, [facility] [place] [facility] [address] [id number] [place] [address] 29 Mar, 2011 [facility] [place] [facility] [address] [id number] [place] [address] Mar, [facility] [place] [facility] [address] [id number] [place] [address] Mar, [facility] [place] [facility] [address] [facility] [id number] [place] [address] Mar, [facility] [place] [facility] [address] [id number] [place] [address] 08 Mar, 2011 [facility] [place] [facility] [address] [id number] [place] [address] 23 Feb, 2011 [facility] [place] [facility] [address] [id number] [place] [address] 14 Feb, 2011 [facility] [place] [facility] [address] [id number] [place] [address] 14 Feb, 2011 [facility] [place] [facility] [address] [id number] [place] [address] 14 Feb, 2011 [facility] [place] [facility] [address] [id number] [place] [address] 07 Feb, 2011 [facility] [place] [facility] [address] [id number] [place] [address] 04 Feb, 2011 [facility] [place] [facility] [address] [id number] [place] [address] 04 Feb, 2011 [facility] [place] [facility] [address] [id number] [place] [address] 10 Jan, 2011 [facility] [place] [facility] [address] [id number] [place] [address] 12 Dec, 2010 [facility] [place] [facility] [address] [id number] [place] [address] Oct, [facility] [place] [facility] [address] [id number] [place] [address] Jun, [facility] [place] [facility] [address] [id number] [place] [address] 23 Mar, 2010 [facility] [place] [facility] [address] [id number] [place] [address] 23 Mar, 2010 [facility] [place] [facility] [address] [id number] [place] [address] 16 Mar, 2010 [facility] [place] [facility] [address] [id number], [place] [address] 16 Mar, 2010 [facility] [place] [facility] [address] [id number], [place] [address] 15 Mar, 2010 [facility] [place] [facility] [address] [id number] [place] [address] 10 Mar, 2010 [facility] [place] [facility] [address] [id number] [place] [address] 10 Mar, 2010 [facility] [place] [facility] [address] [id number] [place] [address] 05 Mar, 2010 [facility] [place] [facility] [address] [id number] [place] [address] 03 Mar, 2010 [facility] [address] [id number] [place] [address] Mar, [facility] [address] [id number] [place] [address] Jan, [facility] [address] [id number] [place] [address] Jan, [facility] [address] [id number] [place] [address] Jan, [facility] [address] [id number] [place] [address] Nov, [facility] [address] [id number] [place] [address] Oct, [facility] [address] [id number] [place] [address] 31 Mar, 2009 [facility] [address] [id number] [place] [address] Mar, [facility] [address] [id number] [place] [address] 17 Mar, 2009 [facility] [address] [facility] [id number] [place] [address] 17 Mar, 2009 [facility] [address] [id number] [place] [address] 17 Dec, 2008 [facility] [address] [id number], [place] [address] August, [facility] [place] [facility] [address] [id number] [place] [address] August, [facility] [place] [facility] [address] [facility] [id number] [place] [address] 15 Jul, 2008 [facility] [address] [id number] [place] [address] Jan, [facility] [address] [facility] [id number] [place] [address] Jan, IMMUNIZATIONS No Known Immunizations SOCIAL HISTORY Never Assessed REASON FOR VISIT Med Adjustment PLAN OF CARE VITAL SIGNS MEDICATIONS Medication Instructions Dosage Frequency Start Date End Date Duration Status Synthroid 150 MCG Orally Once a day 1 tablet on an empty stomach in the morning 24h Jul, Active RESULTS No Results PROCEDURES No Known [...]
--- OUTSIDE RECORDS SUMMARY | 2018-09-22 02:42 | XMS REPORT ---
Author Author FLORENTINEZEKIEL PUCKETT Organization [facility] Address [address] [place] [address] Care Team Providers Care Procurement Cost Coordinator Name Role Phone DANICA LERMAY Unavailable PROBLEMS Type Condition ICD9-CM Code GWA23-MW Code Onset Dates Condition Status SNOMED Code Problem Vitamin D deficiency E55.9 Active 40646840 Problem Chronic gastritis without bleeding, unspecified gastritis type K29.50 Active 7976956 Problem Osteoporosis M81.0 Active 06432350 Problem Unspecified abdominal pain R10.9 Active 441987879 Problem Fibromyalgia M79.7 Active 24739145 Problem Chronic pain syndrome G89.4 Active 605454016 Problem Chronic tension-type headache, not intractable G44.229 Active 831057881 Problem RUQ abdominal pain R10.11 Active 011749534 Problem Pancytopenia D61.818 Active 701211765 Problem Right sided sciatica M54.31 Active 39117687 Problem Hypothyroidism, unspecified hypothyroidism type E03.9 Active 64598939 Problem Drug induced constipation K59.03 Active 452524301620409 Problem Porokeratosis Q82.8 Active 401679196 Problem Chronic prescription opiate use Z79.891 Active 424978015 Problem Pure hypercholesterolemia E78.00 Active 422750220 Problem Leukopenia, unspecified type D72.819 Active 28559140 Problem History of hepatitis C Z86.19 Active 43248130048373 Problem Allergic rhinitis, unspecified allergic rhinitis type J30.9 Active 75169261 Problem Chronic obstructive pulmonary disease, unspecified COPD type J44.9 Active 72491304 Problem Allergy to intravenous contrast Z91.041 Active 870773679 Problem Other constipation K59.09 Active 007649291 Problem Atrial fibrillation, unspecified type I48.91 Active 06600306 Problem 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 Active 372533628 Problem Major depression, recurrent F33.9 Active 92706642 Problem Primary insomnia F51.01 Active 3276197 Problem Hot flashes N95.1 Active 102942689 Problem Vaginal atrophy N95.2 Active 435576878 Problem Polyneuropathy associated with underlying disease G63 Active 445046206 Problem Trigger point with back pain M54.9 Active 945783121 Problem Low back pain M54.5 Active 766128522 Problem Plantar fasciitis M72.2 Active 989149415 ALLERGIES No Information ENCOUNTERS Encounter Location Date Diagnosis [place] [address] [address] Feb, Hypothyroidism, unspecified hypothyroidism type E03.9 [place] [address] [address] Feb, Chronic pain syndrome G89.4 [place] [address] [address] Jan, Fibromyalgia M79.7 ; Chronic pain syndrome G89.4 ; Low back pain M54.5 ; Hypothyroidism, unspecified hypothyroidism type E03.9 ; Leukopenia, unspecified type D72.819 ; Pure hypercholesterolemia E78.00 ; Right upper quadrant pain R10.11 ; Encounter for immunization Z23 ; Chronic gastritis without bleeding, unspecified gastritis type K29.50 ; Chronic prescription opiate use Z79.891 and BMI 28.0-28.9,adult Z68.28 [place] [address] [place] [id number] [place] [address] Jan, Chronic pain syndrome G89.4 [place] [address] [address] Dec, Chronic pain syndrome G89.4 [place] [address] [address] Nov, Onychocryptosis L60.0 [place] [address] [address] Nov, Chronic pain syndrome G89.4 [place] [address] [place] [id number] [place] [address] Nov, Trochanteric bursitis of both hips M70.61 [place] [address] [place] [address] Oct, Hypothyroidism, unspecified hypothyroidism type E03.9 and Atrial fibrillation, unspecified type I48.91 [place] [address] [place] [id number] [place] [address] Oct, Fibromyalgia M79.7 ; Chronic pain syndrome G89.4 ; Hypothyroidism, unspecified hypothyroidism type E03.9 ; Overweight (BMI 25.0-29.9) E66.3 and Atrial fibrillation, unspecified type I48.91 [place] [address] [place] [id number] [place] [address] Oct, Chronic pain syndrome G89.4 [place] [address] [place] [id number] [place] [address] Sep, Chronic pain syndrome G89.4 [place] [address] [place] [id number] [place] [address] August, Somatic dysfunction of lumbar region M99.03 and Somatic dysfunction of pelvis region M99.05 [place] [address] [place] [id number] [place] [address] August, Chronic pain syndrome G89.4 [place] [address] [place] [id number] [place] [address] Jul, Trochanteric bursitis of left hip M70.62 and Trochanteric bursitis, right hip M70.61 [place] [address] [place] [id number] [place] [address] Jul, [place] [address] [place] [id number] [place] [address] Jul, Chronic pain syndrome G89.4 [place] [address] [place] [id number] [place] [address] Jul, Hypothyroidism, unspecified hypothyroidism type E03.9 [place] [address] [place] [id number] [place] [address] Jul, Hypothyroidism, unspecified hypothyroidism type E03.9 [facility] [address] [place] [id number] [place] [address] Jul, Chronic tension-type headache, not intractable G44.229 ; Atrial fibrillation, unspecified type I48.91 ; Chronic pain syndrome G89.4 ; Hypothyroidism, unspecified hypothyroidism type E03.9 ; Pancytopenia D61.818 ; History of hepatitis C Z86.19 ; Vaginal atrophy N95.2 ; RUQ abdominal pain R10.11 ; Chronic prescription opiate use Z79.891 ; Osteoporosis M81.0 and Screening for breast cancer Z12.31 [place] [address] [address] Jun, [place] [address] [address] May, [facility] [address] [address] May, [facility] [address] [place] [id number] [place] [address] May, [facility] [address] [place] [id number] [place] [address] Apr, [facility] [address] [place] [id number] [place] [address] Apr, Hypothyroidism, unspecified hypothyroidism type E03.9 [facility] [address] [place] [id number] [place] [address] Apr, Hypothyroidism, unspecified hypothyroidism type E03.9 and Leukopenia, unspecified type D72.819 [place] [address] [place] [id number] [place] [address] Mar, [facility] [address] [place] [id number] [place] [address] Mar, Leukopenia, unspecified type D72.819 [place] [address] [address] Mar, Hypothyroidism, unspecified hypothyroidism type E03.9 and Low hemoglobin D64.[address] [address] Mar, Hypothyroidism, unspecified hypothyroidism type E03.9 [place] [address] [address] Mar, Osteoporosis M81.0 ; Low hemoglobin D64.9 and Hypothyroidism, unspecified hypothyroidism type E03.[address] [address] Mar, Hypothyroidism, unspecified hypothyroidism type E03.9 ; Bilirubin in urine R82.2 and Pancytopenia D61.[address] [address] Feb, [facility] [address] [address] Feb, Cough R05 and Bronchitis J40 [facility] [address] [address] 14 Feb, 2017 Other viral agents as the cause of diseases classified elsewhere B97.89 and Acute upper respiratory infection, unspecified J06.[address] [address] Feb, Fibromyalgia M79.7 ; Chronic pain syndrome G89.4 ; Hypothyroidism, unspecified hypothyroidism type E03.9 ; Primary insomnia F51.01 ; Osteoporosis M81.0 ; Vision abnormalities H53.9 ; Pancytopenia D61.818 ; BMI 28.0-28.9,adult Z68.28 and Encounter for immunization Z23 [address] [address] 03 Feb, 2017 Neuroma D36.10 and Capsulitis of right foot M77.[address] [address] Feb, [facility] [address] [place] [address] Feb, Hypothyroidism, unspecified hypothyroidism type E03.9 [facility] [address] [place] [id number] [place] [address] Jan, [facility] [address] [place] [id number] [place] [address] Jan, Atrial fibrillation, unspecified type I48.91 [facility] [address] [place] [id number] [place] [address] Jan, [facility] [address] [place] [id number] [place] [address] Jan, Fibromyalgia M79.7 ; Atrial fibrillation, unspecified type I48.91 ; Pain of left hand M79.642 ; Pain in right hand M79.641 ; Chronic prescription opiate use Z79.891 ; Chronic pain syndrome G89.4 ; Elevated fasting glucose R73.01 and Hypothyroidism, unspecified hypothyroidism type E03.9 [facility] [address] [place] [id number] [place] [address] Jan, [facility] [address] [place] [id number] [place] [address] Dec, Trochanteric bursitis of both hips M70.61 [facility] [address] [place] [id number] [place] [address] Dec, [facility] [address] [place] [id number] [place] [address] Dec, [facility] [address] [place] [id number] [place] [address] Nov, [facility] [address] [place] [id number] [place] [address] Nov, Unilateral headache R51 [facility] [address] [place] [id number] [place] [address] Nov, [facility] [address] [place] [id number] [place] [address] Oct, Unilateral headache R51 ; 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 and Allergy to intravenous contrast Z91.041 [facility] [address] [place] [id number] [place] [address] Oct, [facility] [address] [address] Oct, [facility] [address] [place] [id number] [place] [address] Sep, Hypothyroidism, unspecified hypothyroidism type E03.9 [place] [address] [address] Sep, Hypothyroidism, unspecified hypothyroidism type E03.9 and Bilirubin in urine R82.2 [place] [address] [place] [id number] [place] [address] Sep, Trochanteric bursitis of both hips M70.61 [place] [address] [place] [id number] [place] [address] Sep, Hypothyroidism, unspecified hypothyroidism type E03.9 ; Dysuria R30.0 ; Chronic tension-type headache, not intractable G44.229 and Drug induced constipation K59.03 [place] [address] [place] [id number] [place] [address] Sep, [facility] [address] [place] [id number] [place] [address] Sep, [facility] [address] [place] [id number] [place] [address] August, [facility] [address] [place] [id number] [place] [address] Jul, [facility] [address] [place] [id number] [place] [address] Jul, Trochanteric bursitis of right hip M70.61 [facility] [address] [place] [id number] [place] [address] Jul, Hypothyroidism, unspecified hypothyroidism type E03.9 [facility] [address] [place] [id number] [place] [address] Jul, Fibromyalgia M79.7 ; Chronic pain syndrome G89.4 ; Hypothyroidism, unspecified hypothyroidism type E03.9 and Other constipation K59.09 [facility] [address] [place] [id number] [place] [address] Jun, Swollen tonsil J35.1 and Strep throat J02.0 [place] [address] [address] Jun, [place] [address] [place] [id number] [place] [address] Jun, Acute maxillary sinusitis J01.00 [place] [address] [address] Jun, Hypothyroidism, unspecified hypothyroidism type E03.9 [facility] [address] [place] [id number] [place] [address] Jun, Chronic pain syndrome G89.4 ; Fibromyalgia M79.7 ; Hypothyroidism, unspecified hypothyroidism type E03.9 and Chronic prescription opiate use Z79.891 [place] [address] [place] [id number] [place] [address] May, [facility] [address] [place] [id number] [place] [address] Apr, Hypothyroidism, unspecified hypothyroidism type E03.9 [facility] [address] [place] [id number] [place] [address] Apr, [facility] [address] [place] [id number] [place] [address] Apr, Lipid screening Z13.220 and Hypothyroidism, unspecified hypothyroidism type E03.9 [place] [address] [place] [id number] [place] [address] Apr, [place] [address] [place] [id number] [place] [address] Mar, Trochanteric bursitis of both hips M70.61 [place] [address] [place] [id number] [place] [address] Mar, [place] [address] [place] [id number] [place] [address] Mar, Plantar fasciitis M72.2 and Porokeratosis Q82.8 [place] [address] [place] [id number] [place] [address] Feb, Lipid screening Z13.220 ; Vitamin D deficiency E55.9 and Hypothyroidism, unspecified hypothyroidism type E03.9 [place] [address] [place] [id number] [place] [address] Feb, Chronic pain syndrome G89.4 ; Hypothyroidism, unspecified hypothyroidism type E03.9 ; Pancytopenia D61.818 ; Vaginal atrophy N95.2 ; Chronic gastritis without bleeding, unspecified gastritis type K29.50 ; Vitamin D deficiency E55.9 ; Chronic prescription opiate use Z79.891 ; Adverse effect of other opioids, initial encounter T40.2X5A ; Drug induced constipation K59.03 ; Lipid screening Z13.220 and Encounter for immunization Z23 [place] [address] [place] [id number] [place] [address] Feb, [place] [address] [place] [id number] [place] [address] Feb, Ingrown toenail L60.0 [place] [address] [address] Jan, [place] [address] [place] [id number] [place] [address] Jan, Trochanteric bursitis of both hips M70.61 [place] [address] [place] [address] Jan, [facility] [address] [place] [address] Jan, [facility] [address] [place] [address] Jan, [facility] [address] [place] [address] Jan, Right sided sciatica M54.31 [facility] [address] [place] [id number] [place] [address] 23 Dec, 2015 Onychomycosis B35.1 [facility] [address] [place] [id number] [place] [address] 22 Dec, 2015 [facility] [address] [place] [id number] [place] [address] Dec, [facility] [address] [place] [id number] [place] [address] 09 Dec, 2015 [facility] [address] [place] [address] Dec, Osteoarthritis of right hip, unspecified osteoarthritis type M16.11 and Bursitis of right hip M70.71 [facility] [address] [address] Nov, [facility] [address] [place] [id number] [place] [address] Nov, [facility] [address] [place] [address] Nov, [facility] [address] [place] [id number] [place] [address] Nov, Hypothyroidism, unspecified hypothyroidism type E03.9 ; Vitamin D deficiency E55.9 and History of hepatitis C Z86.19 [facility] [address] [place] [address] Nov, Right upper quadrant pain R10.11 ; History of hepatitis C Z86.19 and Low back pain M54.5 [facility] [address] [place] [id number] [place] [address] Oct, Trochanteric bursitis, right hip M70.61 [facility] [address] [place] [id number] [place] [address] Oct, [facility] [address] [address] Oct, [facility] [address] [place] [id number] [place] [address] Oct, Trochanteric bursitis of both hips M70.61 and Right sided sciatica M54.31 [place] [address] [place] [id number] [place] [address] Oct, Trochanteric bursitis of both hips M70.61 [facility] [address] [address] Oct, RUQ abdominal pain R10.11 [place] [address] [address] Oct, Sciatic leg pain M54.30 [place] [address] [place] [id number] [place] [address] Oct, RUQ abdominal pain R10.11 [place] [address] [place] [id number] [place] [address] Oct, RUQ abdominal pain R10.11 ; History of hepatitis C Z86.19 and Trigger point with back pain M54.9 [place] [address] [address] Sep, [facility] [address] [place] [id number] [place] [address] Sep, Right sided sciatica M54.31 [facility] [address] [address] Sep, Hypothyroidism, unspecified hypothyroidism type E03.9 and Vitamin D deficiency E55.9 [place] [address] [place] [id number] [place] [address] Sep, Plantar fasciitis M72.2 and Porokeratosis Q82.8 [place] [address] [place] [id number] [place] [address] Sep, Hypothyroidism, unspecified hypothyroidism type E03.9 ; Chronic pain syndrome G89.4 ; Polyneuropathy associated with underlying disease G63 and Vitamin D deficiency E55.9 [place] [address] [place] [id number] [place] [address] August, [place] [address] [place] [id number] [place] [address] Jul, Plantar fasciitis M72.2 [place] [address] [address] Jul, Trochanteric bursitis, right hip M70.61 [place] [address] [place] [id number] [place] [address] Jul, Hypothyroidism, unspecified hypothyroidism type E03.9 [place] [address] [place] [id number] [place] [address] Jul, Hypothyroidism, unspecified hypothyroidism type E03.9 ; Chronic pain syndrome G89.4 and Polyneuropathy associated with underlying disease G63 [place] [address] [place] [id number] [place] [address] Jun, Trochanteric bursitis of both hips M70.61 [place] [address] [address] Jun, Vitamin D deficiency E55.9 ; Osteoporosis M81.0 ; Low back pain M54.5 and Plantar fasciitis M72.2 [place] [address] [place] [id number] [place] [address] May, Vitamin D deficiency E55.9 and Hypothyroidism, unspecified hypothyroidism type E03.9 [facility] [address] [place] [id number] [place] [address] May, Acute maxillary sinusitis J01.00 [facility] [address] [place] [id number] [place] [address] 18 May, 2015 Osteoporosis M81.0 and Hypothyroidism, unspecified hypothyroidism type E03.9 [place] [address] [place] [id number] [place] [address] 16 May, 2015 Osteoporosis M81.0 [place] [address] [place] [id number] [place] [address] May, [place] [address] [place] [id number] [place] [address] Apr, [place] [address] [place] [id number] [place] [address] Apr, Trochanteric bursitis of both hips M70.61 [place] [address] [place] [id number] [place] [address] Apr, Hypothyroidism, unspecified hypothyroidism type E03.9 [place] [address] [place] [id number] [place] [address] Apr, Chronic pain syndrome G89.4 ; Bilateral low back pain with sciatica, sciatica laterality unspecified M54.40 ; Pain in right hip M25.551 ; Pain in left hip M25.552 ; Chronic prescription opiate use Z79.899 ; Primary insomnia F51.01 and Hypothyroidism, unspecified hypothyroidism type E03.9 [place] [address] [place] [id number] [place] [address] Mar, [place] [address] [place] [id number] [place] [address] Feb, [facility] [address] [place] [id number] [place] [address] Feb, Chronic pain syndrome G89.4 and Major depression F32.9 [facility] [address] [place] [id number] [place] [address] Feb, Fatigue R53.83 [facility] [address] [place] [id number] [place] [address] Feb, History of fracture Z87.81 [place] [address] [place] [id number] [place] [address] Feb, Major depression, recurrent F33.9 and Generalized anxiety disorder F41.1 [place] [address] [place] [id number] [place] [address] Feb, [place] [address] [place] [id number] [place] [address] Jan, Hypothyroidism, unspecified hypothyroidism type E03.9 [place] [address] [place] [id number] [place] [address] Jan, Abdominal pain R10.9 and Hypothyroidism, unspecified hypothyroidism type E03.9 [place] [address] [place] [id number] [place] [address] Jan, Abdominal pain R10.9 [place] [address] [place] [id number] [place] [address] Jan, Hypothyroidism, unspecified hypothyroidism type E03.9 [place] [address] [place] [id number] [place] [address] Jan, [place] [address] [place] [id number] [place] [address] Jan, 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 and Hypothyroidism, unspecified hypothyroidism type E03.9 [place] [address] [place] [address] Jan, 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 ; Abdominal pain R10.9 ; Dyspareunia N94.1 ; Encounter for immunization Z23 ; History of fracture Z87.81 ; Fatigue R53.83 ; Throat fullness R68.89 ; Bruises easily R23.8 ; Hot flashes N95.1 ; Depression F32.9 and Vaginal atrophy N95.2 [place] [address] [address] 16 Jan, 2015 Hypothyroidism, unspecified hypothyroidism type E03.9 [place] [address] [address] Jan, Unspecified abdominal pain R10.9 ; Chronic obstructive pulmonary disease, unspecified COPD type J44.9 ; Allergic rhinitis, unspecified allergic rhinitis type J30.9 ; Chronic pain syndrome G89.4 ; Hypothyroidism, unspecified hypothyroidism type E03.9 ; Chest pain, unspecified chest pain type R07.9 and Plantar fasciitis M72.2 [place] [address] [address] Jan, Trochanteric bursitis of both hips M70.61 [place] [address] [address] Dec, [place] [address] [address] Nov, [place] [address] [address] Nov, [place] [place] [address] [address] Nov, Constipation 564.00 [place] [address] [address] Oct, Chronic pain 338.29 and Hypothyroidism 244.9 [place] [address] [address] Oct, [place] [address] [address] Sep, [place] [id number] [address] 17 Sep, 2014 [facility] [address] [address] Sep, [facility] [address] [address] Sep, [facility] [address] [address] Sep, [facility] [address] [address] Sep, [facility] [id number] [place] [address] Sep, COPD exacerbation 491.21 ; Chronic pain 338.29 ; Hypothyroidism 244.9 and Pancytopenia 284.19 [facility] [address] [address] August, [facility] [address], [place] [address] Jul, [facility] [address], [place] [address] Jul, [facility] [address] [address] Jun, [facility] [address] [address] Jun, [facility] [address] [address] Jun, [facility] [address] [address] Jun, [facility] [address] [address] Jun, [facility] [address] [place] [id number] [address] May, [facility] [place] [facility] [address] [id number] [place] [address] May, 2014 [facility] [place] [facility] [address] [id number] [place] [address] May, 2014 [facility] [place] [facility] [address] [id number] [place] [address] May, 2014 [facility] [place] [facility] [address] [id number] [place] [address] May, 2014 [facility] [place] [facility] [address] [id number] [place] [address] May, 2014 [facility] [place] [facility] [address] [id number] [place] [address] May, 2014 [facility] [place] [facility] [address] [id number] [place] [address] May, 2014 [facility] [place] [facility] [address] [id number] [place] [address] May, [facility] [place] [facility] [address] [id number] [place] [address] May, [facility] [place] [facility] [address] [id number] [place] [address] May, [facility] [place] [facility] [address] [id number] [place] [address] May, [facility] [place] [facility] [address] [id number] [place] [address] May, [facility] [place] [facility] [address] [id number] [place] [address] Apr, [facility] [place] [facility] [address] [id number] [place] [address] Apr, [facility] [place] [facility] [address] [id number] [place] [address] Apr, [facility] [place] [facility] [address] [id number] [place] [address] Apr, [facility] [address] [id number] [place] [address] Apr, [facility] [place] [facility] [address] [id number] [place] [address] Apr, [facility] [address] [id number] [place] [address] Apr, [facility] [place] [facility] [address] [id number] [place] [address] Mar, [facility] [address] [id number] [place] [address] Mar, [facility] [address] [id number] [place] [address] Mar, [facility] [place] [facility] [address] [id number] [place] [address] Mar, [facility] [address] [id number] [place] [address] Mar, [facility] [place] [facility] [address] [id number] [place] [address] Mar, [facility] [address] [id number] [place] [address] Feb, [facility] [place] [facility] [address] [id number] [place] [address] Feb, [facility] [place] [facility] [address] [id number] [place] [address] Feb, [facility] [place] [facility] [address] [id number] [place] [address] Feb, [facility] [place] [facility] [address] [id number] [place] [address] Feb, [facility] [place] [facility] [address] [id number] [place] [address] Feb, [facility] [place] [facility] [address] [id number] [place] [address] Jan, [facility] [place] [facility] [address] [id number] [place] [address] Jan, [facility] [place] [facility] [address] [id number] [place] [address] Jan, [facility] [place] [facility] [address] [id number] [place] [address] Jan, [facility] [place] [facility] [address] [id number] [place] [address] Jan, [facility] [place] [facility] [address] [id number] [place] [address] Jan, [facility] [place] [facility] [address] [id number] [place] [address] Jan, [facility] [place] [facility] [address] [id number] [place] [address] Jan, [facility] [place] [facility] [address] [id number] [place] [address] 25 Dec, 2013 [facility] [place] [facility] [address] [id number] [address] 25 Dec, 2013 [facility] [place] [facility] [address] [id number], [place] [address] 23 Dec, 2013 [facility] [place] [facility] [address] [id number], [place] [address] 23 Dec, 2013 [facility] [place] [facility] [address] [id number], [place] [address] 13 Dec, 2013 [facility] [place] [facility] [address] [id number], [place] [address] 10 Dec, 2013 [facility] [place] [facility] [address] [id number], [place] [address] 10 Dec, 2013 [facility] [place] [facility] [address] [id number], [place] [address] Nov, [facility] [place] [facility] [address] [id number] [place] [address] Nov, [facility] [place] [facility] [address] [id number] [place] [address] Oct, [facility] [place] [facility] [address] [id number] [place] [address] Oct, [facility] [place] [facility] [address] [id number] [place] [address] Oct, [facility] [place] [facility] [address] [id number] [place] [address] Oct, [facility] [place] [facility] [address] [id number] [place] [address] Sep, [facility] [place] [facility] [address] [id number] [place] [address] Sep, [facility] [place] [facility] [address] [id number] [place] [address] Sep, [facility] [place] [facility] [address] [id number] [place] [address] Sep, [facility] [place] [facility] [address] [id number] [place] [address] Sep, [facility] [place] [facility] [address] [id number] [place] [address] Sep, [facility] [place] [facility] [address] [id number] [place] [address] Sep, [facility] [place] [facility] [address] [id number] [place] [address] Sep, [facility] [place] [facility] [address] [id number] [place] [address] August, [facility] [place] [facility] [address] [id number] [place] [address] August, [facility] [place] [facility] [address] [id number] [place] [address] August, [facility] [place] [facility] [address] [id number] [place] [address] August, [facility] [place] [facility] [address] [id number] [place] [address] Jul, [facility] [place] [facility] [address] [id number] [place] [address] Jul, [facility] [place] [facility] [address] [id number] [place] [address] Jul, [facility] [place] [facility] [address] [id number] [place] [address] 24 Jul, 2013 [facility] [place] [facility] [address] [id number] [place] [address] 17 Jul, 2013 [facility] [place] [facility] [address] [id number] [place] [address] 16 Jul, 2013 [facility] [place] [facility] [address] [id number] [place] [address] Jul, [facility] [place] [facility] [address] [id number] [place] [address] Jul, [facility] [place] [facility] [address] [id number] [place] [address] 18 Jun, 2013 [facility] [place] [facility] [address] [id number] [place] [address] 18 Jun, 2013 [facility] [place] [facility] [address] [id number] [place] [address] Jun, [facility] [place] [facility] [address] [id number] [place] [address] Jun, [facility] [place] [facility] [address] [id number] [place] [address] 06 Jun, 2013 [facility] [place] [facility] [address] [id number] [place] [address] Jun, [facility] [place] [facility] [address] [id number] [place] [address] Jun, [facility] [place] [facility] [address] [id number] [place] [address] Jun, [facility] [place] [facility] [address] [id number] [place] [address] May, [facility] [place] [facility] [address] [id number] [place] [address] May, [facility] [place] [facility] [address] [id number] [place] [address] Apr, [facility] [place] [facility] [address] [id number] [place] [address] Apr, [facility] [place] [facility] [address] [id number] [place] [address] Mar, [facility] [place] [facility] [address] [id number] [place] [address] 24 Mar, 2013 [facility] [place] [facility] [address] [id number] [place] [address] Mar, [facility] [place] [facility] [address] [id number] [place] [address] Mar, [facility] [place] [facility] [address] [id number] [place] [address] 18 Mar, 2013 [facility] [place] [facility] [address] [id number] [place] [address] 17 Mar, 2013 [facility] [place] [facility] [address] [id number] [place] [address] Mar, [facility] [place] [facility] [address] [id number] [place] [address] Feb, [facility] [place] [facility] [address] [id number] [place] [address] Feb, [facility] [place] [facility] [address] [id number] [place] [address] Feb, [facility] [address] [id number] [place] [address] Feb, [facility] [address] [id number] [place] [address] Feb, [facility] [address] [id number] [place] [address] Feb, [facility] [address] [id number] [place] [address] 26 Dec, 2012 [facility] [address] [id number] [place] [address] 18 Dec, 2012 [facility] [address] [id number] [place] [address] Dec, [facility] [address] [id number] [place] [address] Dec, [facility] [address] [id number] [place] [address] Dec, [facility] [address] [id number] [place] [address] Nov, [facility] [address] [id number] [place] [address] Nov, [facility] [address] [id number] [place] [address] Oct, [facility] [address] [id number] [place] [address] August, [facility] [address] [id number] [place] [address] August, [facility] [address] [id number] [place] [address] August, [facility] [address] [id number] [place] [address] Jul, [facility] [place] [facility] [address] [id number] [place] [address] Jul, [facility] [address] [id number] [place] [address] Jul, [facility] [address] [id number] [place] [address] Jun, [facility] [place] [facility] [address] [id number] [place] [address] Jun, [facility] [address] [id number] [place] [address] Jun, [facility] [address] [id number] [place] [address] Jun, [facility] [address] [id number] [place] [address] Jun, [facility] [address] [id number] [place] [address] Jun, [facility] [address] [id number] [place] [address] Jun, [facility] [address] [id number] [place] [address] May, [facility] [address] [id number] [place] [address] May, [facility] [place] [facility] [address] [id number] [place] [address] May, [facility] [place] [facility] [address] [id number] [place] [address] May, [facility] [place] [facility] [address] [id number] [place] [address] Apr, [facility] [place] [facility] [address] [id number] [place] [address] Apr, [facility] [place] [facility] [address] [id number] [place] [address] Apr, [facility] [place] [facility] [address] [id number] [place] [address] Mar, [facility] [place] [facility] [address] [id number] [place] [address] Mar, [facility] [place] [facility] [address] [id number] [place] [address] Mar, [facility] [place] [facility] [address] [id number] [place] [address] Mar, [facility] [place] [facility] [address] [id number] [place] [address] Mar, [facility] [place] [facility] [address] [id number] [place] [address] Mar, [facility] [place] [facility] [address] [id number] [place] [address] Mar, [facility] [place] [facility] [address] [id number] [place] [address] Mar, [facility] [place] [facility] [address] [id number] [place] [address] Feb, [facility] [place] [facility] [address] [facility] [id number] [place] [address] Feb, [facility] [place] [facility] [address] [id number] [place] [address] Feb, [facility] [place] [facility] [address] [id number], [place] [address] Jan, [facility] [place] [facility] [address] [id number] [place] [address] Jan, [facility] [place] [facility] [address] [facility] [id number] [place] [address] Jan, [facility] [place] [facility] [address] [facility] [id number], [place] [address] Jan, [facility] [place] [facility] [address] [id number] [place] [address] Jan, [facility] [place] [facility] [address] [id number] [place] [address] Jan, [facility] [place] [facility] [address] [id number] [place] [address] Jan, [facility] [place] [facility] [address] [id number] [place] [address] Dec, [facility] [place] [facility] [address] [id number] [place] [address] 24 Dec, 2011 [facility] [place] [facility] [address] [id number] [place] [address] Dec, [facility] [place] [facility] [address] [id number] [place] [address] Nov, [facility] [place] [facility] [address] [id number] [place] [address] Nov, [facility] [place] [facility] [address] [id number] [place] [address] Nov, [facility] [place] [facility] [address] [id number] [place] [address] Nov, [facility] [place] [facility] [address] [id number] [place] [address] Oct, [facility] [place] [facility] [address] [id number] [place] [address] Oct, [facility] [place] [facility] [address] [id number] [place] [address] Oct, [facility] [place] [facility] [address] [id number] [place] [address] Sep, [facility] [place] [facility] [address] [id number] [place] [address] Sep, [facility] [place] [facility] [address] [id number] [place] [address] Sep, [facility] [place] [facility] [address] [id number] [place] [address] Sep, [facility] [place] [facility] [address] [id number] [place] [address] Sep, [facility] [place] [facility] [address] [facility] [id number] [place] [address] Sep, [facility] [place] [facility] [address] [id number] [place] [address] August, [facility] [place] [facility] [address] [id number] [place] [address] Jul, [facility] [place] [facility] [address] [id number] [place] [address] Jul, [facility] [place] [facility] [address] [id number] [place] [address] Jul, [facility] [place] [facility] [address] [id number] [place] [address] Jul, [facility] [place] [facility] [address] [id number] [place] [address] Jul, [facility] [place] [facility] [address] [id number] [place] [address] 29 Jun, 2011 [facility] [place] [facility] [address] [id number] [place] [address] Jun, [facility] [place] [facility] [address] [id number], [place] [address] 15 Jun, 2011 [facility] [place] [facility] [address] [id number] [place] [address] 15 Jun, 2011 [facility] [place] [facility] [address] [facility] [id number] [place] [address] 09 Jun, 2011 [facility] [place] [facility] [address] [id number] [place] [address] May, [facility] [place] [facility] [address] [id number] [place] [address] 09 May, 2011 [facility] [address] [id number] [place] [address] May, [facility] [place] [facility] [address] [id number] [place] [address] May, [facility] [place] [facility] [address] [id number] [place] [address] May, [facility] [place] [facility] [address] [id number] [place] [address] May, [facility] [place] [facility] [address] [id number] [place] [address] May, [facility] [address] [id number] [place] [address] Apr, [facility] [place] [facility] [address] [id number] [place] [address] 29 Mar, 2011 [facility] [place] [facility] [address] [id number] [place] [address] Mar, [facility] [place] [facility] [address] [id number] [place] [address] Mar, [facility] [place] [facility] [address] [facility] [id number] [place] [address] Mar, [facility] [place] [facility] [address] [id number] [place] [address] 08 Mar, 2011 [facility] [place] [facility] [address] [id number] [place] [address] 23 Feb, 2011 [facility] [place] [facility] [address] [id number] [place] [address] 14 Feb, 2011 [facility] [place] [facility] [address] [id number] [place] [address] 14 Feb, 2011 [facility] [place] [facility] [address] [id number] [place] [address] 14 Feb, 2011 [facility] [place] [facility] [address] [id number] [place] [address] 07 Feb, 2011 [facility] [place] [facility] [address] [id number] [place] [address] 04 Feb, 2011 [facility] [place] [facility] [address] [id number] [place] [address] 04 Feb, 2011 [facility] [place] [facility] [address] [id number] [place] [address] 10 Jan, 2011 [facility] [place] [facility] [address] [id number] [place] [address] 12 Dec, 2010 [facility] [place] [facility] [address] [id number] [place] [address] Oct, [facility] [place] [facility] [address] [id number] [place] [address] Jun, [facility] [place] [facility] [address] [id number] [place] [address] 23 Mar, 2010 [facility] [place] [facility] [address] [id number] [place] [address] 23 Mar, 2010 [facility] [place] [facility] [address] [id number] [place] [address] 16 Mar, 2010 [facility] [place] [facility] [address] [id number] [address] 16 Mar, 2010 [facility] [place] [facility] [address] [id number], [place] [address] 15 Mar, 2010 [facility] [place] [facility] [address] [id number] [place] [address] 10 Mar, 2010 [facility] [place] [facility] [address] [id number] [place] [address] 10 Mar, 2010 [facility] [place] [facility] [address] [id number] [place] [address] 05 Mar, 2010 [facility] [place] [facility] [address] [id number] [place] [address] 03 Mar, 2010 [facility] [address] [id number] [place] [address] Mar, [facility] [address] [id number] [place] [address] Jan, [facility] [address] [id number] [place] [address] Jan, [facility] [address] [id number] [place] [address] Jan, [facility] [address] [id number] [place] [address] Nov, [facility] [address] [id number] [place] [address] Oct, [facility] [address] [id number] [place] [address] 31 Mar, 2009 [facility] [address] [id number] [place] [address] Mar, [facility] [address] [id number] [place] [address] 17 Mar, 2009 [facility] [address] [facility] [id number] [place] [address] 17 Mar, 2009 [facility] [address] [id number] [place] [address] 17 Dec, 2008 [facility] [address] [id number], [place] [address] August, [facility] [place] [facility] [address] [id number] [place] [address] August, [facility] [place] [facility] [address] [facility] [id number] [place] [address] 15 Jul, 2008 [facility] [address] [id number] [place] [address] Jan, [facility] [address] [facility] [id number] [place] [address] Jan, IMMUNIZATIONS No Known Immunizations SOCIAL HISTORY Never Assessed REASON FOR VISIT Controlled Medication Refill- Due 02/18/18 PLAN OF CARE VITAL SIGNS MEDICATIONS Medication Instructions Dosage Frequency Start Date End Date Duration Status Hydrocodone-Acetaminophen 10-325 MG Orally 2 times a day 1 tablet as needed 12h Feb, 28 days Active RESULTS No Results PROCEDURES [...]
--- OUTSIDE RECORDS SUMMARY | 2018-09-22 02:43 | XMS REPORT ---
Author Author FLORENTINEZEKIEL PCUKETT Organization [facility] Address [address] [place] [address] Care Team Providers Care Geophysics Scientist Name Role Phone DANICA LERMAY Unavailable PROBLEMS Type Condition ICD9-CM Code NGD13-CC Code Onset Dates Condition Status SNOMED Code Problem Vitamin D deficiency E55.9 Active 60306165 Problem Chronic gastritis without bleeding, unspecified gastritis type K29.50 Active 5203222 Problem Osteoporosis M81.0 Active 23658781 Problem Unspecified abdominal pain R10.9 Active 111071078 Problem Fibromyalgia M79.7 Active 65886207 Problem Chronic pain syndrome G89.4 Active 860131139 Problem Chronic tension-type headache, not intractable G44.229 Active 534630309 Problem RUQ abdominal pain R10.11 Active 886342959 Problem Pancytopenia D61.818 Active 278002880 Problem Right sided sciatica M54.31 Active 85086941 Problem Hypothyroidism, unspecified hypothyroidism type E03.9 Active 94144426 Problem Drug induced constipation K59.03 Active 297952398867448 Problem Porokeratosis Q82.8 Active 377239647 Problem Chronic prescription opiate use Z79.891 Active 533033815 Problem Pure hypercholesterolemia E78.00 Active 457362568 Problem Leukopenia, unspecified type D72.819 Active 66882111 Problem History of hepatitis C Z86.19 Active 28290200174036 Problem Allergic rhinitis, unspecified allergic rhinitis type J30.9 Active 58894287 Problem Chronic obstructive pulmonary disease, unspecified COPD type J44.9 Active 61086992 Problem Allergy to intravenous contrast Z91.041 Active 316923245 Problem Other constipation K59.09 Active 501656303 Problem Atrial fibrillation, unspecified type I48.91 Active 11682103 Problem 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 Active 587390732 Problem Major depression, recurrent F33.9 Active 23070348 Problem Primary insomnia F51.01 Active 2695386 Problem Hot flashes N95.1 Active 482851172 Problem Vaginal atrophy N95.2 Active 500371351 Problem Polyneuropathy associated with underlying disease G63 Active 935390443 Problem Trigger point with back pain M54.9 Active 257938133 Problem Low back pain M54.5 Active 366741237 Problem Plantar fasciitis M72.2 Active 068383391 ALLERGIES Substance Reaction Event Type Date Status Diazepam Unknown Drug Allergy Jan, Active CT Dye Unknown Non Drug Allergy Jan, Active ENCOUNTERS Encounter Location Date Diagnosis [place] [address] [address] Feb, Chronic pain syndrome G89.4 [place] [address] [address] Jan, Fibromyalgia M79.7 ; Chronic pain syndrome G89.4 ; Low back pain M54.5 ; Hypothyroidism, unspecified hypothyroidism type E03.9 ; Leukopenia, unspecified type D72.819 ; Pure hypercholesterolemia E78.00 ; Right upper quadrant pain R10.11 ; Encounter for immunization Z23 ; Chronic gastritis without bleeding, unspecified gastritis type K29.50 ; Chronic prescription opiate use Z79.891 and BMI 28.0-28.9,adult Z68.28 [place] [address] [address] Jan, Chronic pain syndrome G89.4 [place] [address] [place] [id number] [place] [address] Dec, Chronic pain syndrome G89.4 [place] [address] [address] Nov, Onychocryptosis L60.0 [place] [address] [address] Nov, Chronic pain syndrome G89.4 [place] [address] [place] [id number] [place] [address] Nov, Trochanteric bursitis of both hips M70.61 [place] [address] [place] [address] Oct, Hypothyroidism, unspecified hypothyroidism type E03.9 and Atrial fibrillation, unspecified type I48.91 [place] [address] [place] [id number] [place] [address] Oct, Fibromyalgia M79.7 ; Chronic pain syndrome G89.4 ; Hypothyroidism, unspecified hypothyroidism type E03.9 ; Overweight (BMI 25.0-29.9) E66.3 and Atrial fibrillation, unspecified type I48.91 [place] [address] [place] [id number] [place] [address] Oct, Chronic pain syndrome G89.4 [place] [address] [place] [id number] [place] [address] Sep, Chronic pain syndrome G89.4 [place] [address] [place] [id number] [place] [address] August, Somatic dysfunction of lumbar region M99.03 and Somatic dysfunction of pelvis region M99.05 [place] [address] [place] [id number] [place] [address] August, Chronic pain syndrome G89.4 [place] [address] [place] [id number] [place] [address] Jul, Trochanteric bursitis of left hip M70.62 and Trochanteric bursitis, right hip M70.61 [place] [address] [place] [id number] [place] [address] Jul, [place] [address] [place] [id number] [place] [address] Jul, Chronic pain syndrome G89.4 [facility] [address] [place] [id number] [place] [address] Jul, Hypothyroidism, unspecified hypothyroidism type E03.9 [facility] [address] [place] [id number] [place] [address] Jul, Hypothyroidism, unspecified hypothyroidism type E03.9 [facility] [id number] [place] [address] Jul, Chronic tension-type headache, not intractable G44.229 ; Atrial fibrillation, unspecified type I48.91 ; Chronic pain syndrome G89.4 ; Hypothyroidism, unspecified hypothyroidism type E03.9 ; Pancytopenia D61.818 ; History of hepatitis C Z86.19 ; Vaginal atrophy N95.2 ; RUQ abdominal pain R10.11 ; Chronic prescription opiate use Z79.891 ; Osteoporosis M81.0 and Screening for breast cancer Z12.31 [place] [address] [place] [id number] [place] [address] Jun, [place] [address] [place] [id number] [place] [address] May, [place] [address] [place] [id number] [place] [address] May, [facility] [address] [place] [id number] [place] [address] May, [facility] [address] [place] [id number] [place] [address] Apr, [facility] [address] [place] [id number] [place] [address] Apr, Hypothyroidism, unspecified hypothyroidism type E03.9 [facility] [address] [place] [id number] [place] [address] Apr, Hypothyroidism, unspecified hypothyroidism type E03.9 and Leukopenia, unspecified type D72.819 [facility] [address] [place] [id number] [place] [address] Mar, [place] [address] [place] [id number] [place] [address] Mar, Leukopenia, unspecified type D72.819 [facility] [address] [place] [id number] [place] [address] Mar, Hypothyroidism, unspecified hypothyroidism type E03.9 and Low hemoglobin D64.[address] [address] Mar, Hypothyroidism, unspecified hypothyroidism type E03.[address] [address] Mar, Osteoporosis M81.0 ; Low hemoglobin D64.9 and Hypothyroidism, unspecified hypothyroidism type E03.[address] [address] Mar, Hypothyroidism, unspecified hypothyroidism type E03.9 ; Bilirubin in urine R82.2 and Pancytopenia D61.[address] [address] Feb, [facility] [address] [address] Feb, Cough R05 and Bronchitis J40 [facility] [place] [address] [address] 14 Feb, 2017 Other viral agents as the cause of diseases classified elsewhere B97.89 and Acute upper respiratory infection, unspecified J06.9 [place] [id number] [place] [address] Feb, Fibromyalgia M79.7 ; Chronic pain syndrome G89.4 ; Hypothyroidism, unspecified hypothyroidism type E03.9 ; Primary insomnia F51.01 ; Osteoporosis M81.0 ; Vision abnormalities H53.9 ; Pancytopenia D61.818 ; BMI 28.0-28.9,adult Z68.28 and Encounter for immunization Z23 [address] [address] Feb, Neuroma D36.10 and Capsulitis of right foot M77.[address] [address] Feb, [place] [id number] [place] [address] Feb, Hypothyroidism, unspecified hypothyroidism type E03.9 [facility] [address] [place] [id number] [place] [address] Jan, [facility] [address] [place] [id number] [place] [address] Jan, Atrial fibrillation, unspecified type I48.91 [facility] [address] [place] [id number] [place] [address] Jan, [facility] [address] [place] [id number] [place] [address] Jan, Fibromyalgia M79.7 ; Atrial fibrillation, unspecified type I48.91 ; Pain of left hand M79.642 ; Pain in right hand M79.641 ; Chronic prescription opiate use Z79.891 ; Chronic pain syndrome G89.4 ; Elevated fasting glucose R73.01 and Hypothyroidism, unspecified hypothyroidism type E03.9 [facility] [id number] [place] [address] Jan, [facility] [address] [place] [id number] [place] [address] Dec, Trochanteric bursitis of both hips M70.61 [facility] [address] [address] Dec, [facility] [address] [place] [id number] [place] [address] Dec, [facility] [address] [place] [id number] [place] [address] Nov, [facility] [address] [place] [id number] [place] [address] Nov, Unilateral headache R51 [facility] [id number] [place] [address] Nov, [facility] [address] [address] Oct, Unilateral headache R51 ; 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 and Allergy to intravenous contrast Z91.041 [facility] [address] [address] Oct, [facility] [address] [address] Oct, [facility] [address] [address] Sep, Hypothyroidism, unspecified hypothyroidism type E03.9 [place] [address] [address] Sep, Hypothyroidism, unspecified hypothyroidism type E03.9 and Bilirubin in urine R82.2 [place] [address] [address] Sep, Trochanteric bursitis of both hips M70.61 [facility] [address] [address] Sep, Hypothyroidism, unspecified hypothyroidism type E03.9 ; Dysuria R30.0 ; Chronic tension-type headache, not intractable G44.229 and Drug induced constipation K59.03 [place] [address] [place] [id number] [place] [address] Sep, [facility] [address] [address] Sep, [facility] [address] [place] [id number] [place] [address] August, [facility] [address] [address] Jul, [facility] [address] [address] Jul, Trochanteric bursitis of right hip M70.61 [place] [address] [address] Jul, Hypothyroidism, unspecified hypothyroidism type E03.9 [facility] [address] [address] Jul, Fibromyalgia M79.7 ; Chronic pain syndrome G89.4 ; Hypothyroidism, unspecified hypothyroidism type E03.9 and Other constipation K59.09 [facility] [address] [place] [id number] [place] [address] Jun, Swollen tonsil J35.1 and Strep throat J02.0 [facility] [address] [address] Jun, [facility] [address] [address] Jun, Acute maxillary sinusitis J01.00 [place] [address] [place] [id number] [place] [address] Jun, Hypothyroidism, unspecified hypothyroidism type E03.9 [facility] [address] [place] [id number] [place] [address] Jun, Chronic pain syndrome G89.4 ; Fibromyalgia M79.7 ; Hypothyroidism, unspecified hypothyroidism type E03.9 and Chronic prescription opiate use Z79.891 [facility] [address] [place] [id number] [place] [address] May, [facility] [address] [place] [id number] [place] [address] Apr, Hypothyroidism, unspecified hypothyroidism type E03.9 [facility] [address] [place] [id number] [place] [address] Apr, [facility] [address] [address] Apr, Lipid screening Z13.220 and Hypothyroidism, unspecified hypothyroidism type E03.9 [facility] [address] [place] [id number] [place] [address] Apr, [facility] [id number] [place] [address] Mar, Trochanteric bursitis of both hips M70.61 [facility] [address] [place] [id number] [place] [address] Mar, [facility] [address] [place] [id number] [place] [address] Mar, Plantar fasciitis M72.2 and Porokeratosis Q82.8 [facility] [address] [place] [id number] [place] [address] Feb, Lipid screening Z13.220 ; Vitamin D deficiency E55.9 and Hypothyroidism, unspecified hypothyroidism type E03.9 [place] [address] [place] [id number] [place] [address] 16 Feb, 2016 Chronic pain syndrome G89.4 [...] Z13.220 and Encounter for immunization Z23 [facility] [address] [place] [id number] [place] [address] Feb, [facility] [address] [place] [id number] [place] [address] Feb, Ingrown toenail L60.0 [place] [address] [place] [id number] [place] [address] Jan, [facility] [address] [address] Jan, Trochanteric bursitis of both hips M70.61 [facility] [address] [place] [id number] [place] [address] Jan, [facility] [address] [address] Jan, [facility] [address] [place] [id number] [place] [address] Jan, [facility] [id number] [place] [address] Jan, Right sided sciatica M54.31 [facility] [address] [place] [id number] [place] [address] 23 Dec, 2015 Onychomycosis B35.1 [facility] [address] [place] [id number] [place] [address] Dec, [facility] [address] [place] [id number] [place] [address] Dec, [facility] [address] [place] [id number] [place] [address] Dec, [facility] [address] [place] [id number] [place] [address] Dec, Osteoarthritis of right hip, unspecified osteoarthritis type M16.11 and Bursitis of right hip M70.71 [facility] [id number] [address] Nov, [facility] [id number] [address] Nov, [facility] [id number] [address] Nov, [facility] [id number] [address] Nov, Hypothyroidism, unspecified hypothyroidism type E03.9 ; Vitamin D deficiency E55.9 and History of hepatitis C Z86.19 [facility] [address] [address] Nov, Right upper quadrant pain R10.11 ; History of hepatitis C Z86.19 and Low back pain M54.5 [facility] [address] [place] [id number] [place] [address] Oct, Trochanteric bursitis, right hip M70.61 [facility] [address] [place] [id number] [place] [address] Oct, [facility] [address] [place] [id number] [place] [address] Oct, [facility] [address] [place] [id number] [place] [address] Oct, Trochanteric bursitis of both hips M70.61 and Right sided sciatica M54.31 [place] [address] [place] [id number] [place] [address] Oct, Trochanteric bursitis of both hips M70.61 [facility] [address] [place] [id number] [place] [address] 14 Oct, 2015 RUQ abdominal pain R10.11 [place] [address] [place] [id number] [place] [address] Oct, Sciatic leg pain M54.30 [place] [address] [place] [id number] [place] [address] Oct, RUQ abdominal pain R10.11 [place] [address] [place] [id number] [place] [address] Oct, RUQ abdominal pain R10.11 ; History of hepatitis C Z86.19 and Trigger point with back pain M54.9 [facility] [address] [place] [id number] [place] [address] Sep, [facility] [address] [place] [id number] [place] [address] Sep, Right sided sciatica M54.31 [facility] [address] [place] [id number] [place] [address] Sep, Hypothyroidism, unspecified hypothyroidism type E03.9 and Vitamin D deficiency E55.9 [place] [address] [place] [id number] [place] [address] Sep, Plantar fasciitis M72.2 and Porokeratosis Q82.8 [facility] [address] [place] [id number] [place] [address] Sep, Hypothyroidism, unspecified hypothyroidism type E03.9 ; Chronic pain syndrome G89.4 ; Polyneuropathy associated with underlying disease G63 and Vitamin D deficiency E55.9 [place] [address] [place] [id number] [place] [address] August, [place] [address] [place] [id number] [place] [address] Jul, Plantar fasciitis M72.2 [place] [address] [place] [id number] [place] [address] Jul, Trochanteric bursitis, right hip M70.61 [place] [address] [place] [id number] [place] [address] Jul, Hypothyroidism, unspecified hypothyroidism type E03.9 [place] [address] [place] [id number] [place] [address] Jul, Hypothyroidism, unspecified hypothyroidism type E03.9 ; Chronic pain syndrome G89.4 and Polyneuropathy associated with underlying disease G63 [place] [address] [place] [id number] [place] [address] Jun, Trochanteric bursitis of both hips M70.61 [place] [address] [place] [id number] [place] [address] Jun, Vitamin D deficiency E55.9 ; Osteoporosis M81.0 ; Low back pain M54.5 and Plantar fasciitis M72.2 [place] [address] [place] [id number] [place] [address] May, Vitamin D deficiency E55.9 and Hypothyroidism, unspecified hypothyroidism type E03.9 [facility] [address] [address] 23 May, 2015 Acute maxillary sinusitis J01.00 [facility] [address] [place] [id number] [place] [address] 18 May, 2015 Osteoporosis M81.0 and Hypothyroidism, unspecified hypothyroidism type E03.9 [facility] [id number] [place] [address] May, Osteoporosis M81.0 [facility] [address] [place] [id number] [place] [address] May, [facility] [address] [place] [id number] [place] [address] Apr, [place] [address] [place] [id number] [place] [address] Apr, Trochanteric bursitis of both hips M70.61 [facility] [address] [place] [id number] [place] [address] Apr, Hypothyroidism, unspecified hypothyroidism type E03.9 [place] [id number] [place] [address] Apr, Chronic pain syndrome G89.4 ; Bilateral low back pain with sciatica, sciatica laterality unspecified M54.40 ; Pain in right hip M25.551 ; Pain in left hip M25.552 ; Chronic prescription opiate use Z79.899 ; Primary insomnia F51.01 and Hypothyroidism, unspecified hypothyroidism type E03.9 [facility] [address] [address] Mar, [place] [address] [place] [id number] [place] [address] Feb, [facility] [id number] [place] [address] Feb, Chronic pain syndrome G89.4 and Major depression F32.9 [place] [address] [place] [id number] [place] [address] Feb, Fatigue R53.83 [place] [address] [address] Feb, History of fracture Z87.81 [place] [address] [place] [id number] [place] [address] Feb, Major depression, recurrent F33.9 and Generalized anxiety disorder F41.1 [place] [address] [place] [id number] [place] [address] Feb, [place] [address] [address] Jan, Hypothyroidism, unspecified hypothyroidism type E03.9 [place] [address] [place] [id number] [place] [address] Jan, Abdominal pain R10.9 and Hypothyroidism, unspecified hypothyroidism type E03.9 [place] [address] [place] [id number] [place] [address] Jan, Abdominal pain R10.9 [place] [address] [place] [id number] [place] [address] Jan, Hypothyroidism, unspecified hypothyroidism type E03.9 [place] [id number] [place] [phone] Jan, [place] [id number] [place] [phone] Jan, 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) w/o 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 Z01.419 and Hypothyroidism, unspecified hypothyroidism type E03.9 [place] [id number] [place] [phone] Jan, 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) w/o 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 Z01.419 ; Abdominal pain R10.9 ; Dyspareunia N94.1 ; Encounter for immunization Z23 ; History of fracture Z87.81 ; Fatigue R53.83 ; Throat fullness R68.89 ; Bruises easily R23.8 ; Hot flashes N95.1 ; Depression F32.9 and Vaginal atrophy N95.2 [facility] [id number] [place] [phone] Jan, Hypothyroidism, unspecified hypothyroidism type E03.9 [place] [address] [phone] Jan, Unspecified abdominal pain R10.9 ; Chronic obstructive pulmonary disease, unspecified COPD type J44.9 ; Allergic rhinitis, unspecified allergic rhinitis type J30.9 ; Chronic pain syndrome G89.4 ; Hypothyroidism, unspecified hypothyroidism type E03.9 ; Chest pain, unspecified chest pain type R07.9 and Plantar fasciitis M72.2 [place] [address] [phone] Jan, Trochanteric bursitis of both hips M70.61 [place] [address] [phone] Dec, [place] [address] [phone] Nov, [place] [id number] [place] [phone] Nov, [place] [id number] [place] [phone] Nov, Constipation 564.00 [facility] [id number] [place] [phone] Oct, Chronic pain 338.29 and Hypothyroidism 244.9 [place] [address] [phone] Oct, [facility] [id number] [place] [phone] Sep, [facility] [address] [phone] Sep, [facility] [id number], [place] [address] Sep, [facility] [id number] [place] [address] Sep, [facility] [id number] [address] Sep, [facility] [id number] [place] [address] Sep, [facility] [id number] [place] [address] Sep, COPD exacerbation 491.21 ; Chronic pain 338.29 ; Hypothyroidism 244.9 and Pancytopenia 284.19 [facility] [address] [id number] [address] August, [facility] [id number] [place] [address] Jul, [facility] [id number], [place] [address] Jul, [facility] [id number] [place] [address] Jun, [facility] [address], [place] [address] Jun, [facility] [address], [place] [address] Jun, [facility] [address], [place] [address] Jun, [facility] [id number] [place] [address] Jun, [facility] [address], [place] [address] May, [facility] [id number] [address] May, 2014 [facility] [place] [facility] [address] [id number] [place] [address] May, 2014 [facility] [place] [facility] [address] [id number] [place] [address] May, 2014 [facility] [place] [facility] [address] [facility] [id number] [place] [address] May, 2014 [facility] [place] [facility] [address] [id number] [place] [address] May, 2014 [facility] [place] [facility] [address] [id number] [place] [address] May, 2014 [facility] [place] [facility] [address] [facility] [id number] [place] [address] May, 2014 [facility] [place] [facility] [address] [facility] [id number] [place] [address] May, 2014 [facility] [place] [facility] [address] [facility] [id number] [place] [address] May, [facility] [place] [facility] [address] [facility] [id number] [place] [address] May, [facility] [place] [facility] [address] [facility] [id number] [place] [address] May, [facility] [place] [facility] [address] [facility] [id number] [place] [address] May, [facility] [place] [facility] [address] [facility] [id number] [address] Apr, [facility] [place] [facility] [address] [id number] [place] [address] Apr, [facility] [place] [facility] [address] [facility] [id number] [place] [address] Apr, [facility] [place] [facility] [address] [facility] [id number] [place] [address] Apr, [facility] [place] [facility] [address] [id number] [place] [address] Apr, [facility] [place] [facility] [address] [id number] [place] [address] Apr, [facility] [place] [facility] [address] [id number] [place] [address] Apr, [facility] [place] [facility] [address] [id number] [place] [address] Mar, [facility] [place] [facility] [address] [id number] [place] [address] Mar, [facility] [place] [facility] [address] [id number] [place] [address] Mar, [facility] [place] [facility] [address] [id number] [place] [address] Mar, [facility] [place] [facility] [address] [id number] [place] [address] Mar, [facility] [place] [facility] [address] [id number] [place] [address] Mar, [facility] [place] [facility] [address] [id number] [place] [address] Feb, [facility] [place] [facility] [address] [id number] [place] [address] Feb, [facility] [place] [facility] [address] [id number] [address] Feb, [facility] [place] [facility] [address] [id number] [place] [address] Feb, [facility] [place] [facility] [address] [id number] [place] [address] Feb, [facility] [place] [facility] [address] [id number] [place] [address] Feb, [facility] [place] [facility] [address] [id number] [place] [address] Jan, [facility] [place] [facility] [address] [id number] [place] [address] Jan, [facility] [place] [facility] [address] [id number] [place] [address] Jan, [facility] [place] [facility] [address] [id number] [place] [address] Jan, [facility] [place] [facility] [address] [id number] [place] [address] Jan, [facility] [place] [facility] [address] [id number] [place] [address] Jan, [facility] [place] [facility] [address] [id number] [place] [address] Jan, [facility] [place] [facility] [address] [id number] [place] [address] Jan, [facility] [place] [facility] [address] [id number] [place] [address] 25 Dec, 2013 [facility] [place] [facility] [address] [id number] [place] [address] 25 Dec, 2013 [facility] [place] [facility] [address] [facility] [id number] [place] [address] 23 Dec, 2013 [facility] [place] [facility] [address] [id number] [place] [address] 23 Dec, 2013 [facility] [place] [facility] [address] [id number] [place] [address] 13 Dec, 2013 [facility] [place] [facility] [address] [id number] [place] [address] 10 Dec, 2013 [facility] [place] [facility] [address] [id number] [place] [address] 10 Dec, 2013 [facility] [place] [facility] [address] [id number] [place] [address] Nov, [facility] [place] [facility] [address] [id number] [place] [address] Nov, [facility] [place] [facility] [address] [id number] [place] [address] Oct, [facility] [place] [facility] [address] [id number] [place] [address] Oct, [facility] [place] [facility] [address] [id number] [place] [address] Oct, [facility] [place] [facility] [address] [id number] [place] [address] Oct, [facility] [place] [facility] [address] [id number] [place] [address] Sep, [facility] [place] [facility] [address] [id number] [place] [address] Sep, [facility] [place] [facility] [address] [id number] [place] [address] Sep, [facility] [place] [facility] [address] [id number] [place] [address] Sep, [facility] [place] [facility] [address] [id number] [place] [address] Sep, [facility] [place] [facility] [address] [id number] [place] [address] Sep, [facility] [place] [facility] [address] [id number] [place] [address] Sep, [facility] [place] [facility] [address] [id number] [place] [address] Sep, [facility] [place] [facility] [address] [id number] [place] [address] August, [facility] [place] [facility] [address] [id number] [place] [address] August, [facility] [place] [facility] [address] [id number] [place] [address] August, [facility] [place] [facility] [address] [id number] [place] [address] August, [facility] [place] [facility] [address] [id number] [place] [address] Jul, [facility] [place] [facility] [address] [id number] [place] [address] Jul, [facility] [place] [facility] [address] [id number] [place] [address] Jul, [facility] [place] [facility] [address] [id number] [place] [address] Jul, [facility] [place] [facility] [address] [id number] [place] [address] Jul, [facility] [place] [facility] [address] [id number] [place] [address] 16 Jul, 2013 [facility] [place] [facility] [address] [id number] [place] [address] Jul, [facility] [place] [facility] [address] [id number] [place] [address] Jul, [facility] [place] [facility] [address] [id number] [place] [address] Jun, [facility] [place] [facility] [address] [id number] [place] [address] Jun, [facility] [place] [facility] [address] [id number] [place] [address] Jun, [facility] [place] [facility] [address] [id number] [place] [address] Jun, [facility] [place] [facility] [address] [id number] [place] [address] Jun, [facility] [place] [facility] [address] [id number] [place] [address] Jun, [facility] [place] [facility] [address] [id number] [place] [address] Jun, [facility] [address] [id number] [place] [address] Jun, [facility] [address] [id number] [place] [address] May, [facility] [address] [id number] [place] [address] May, [facility] [address] [id number] [place] [address] Apr, [facility] [address] [id number] [place] [address] Apr, [facility] [address] [id number] [place] [address] Mar, [facility] [address] [id number] [place] [address] 24 Mar, 2013 [facility] [address] [id number] [place] [address] Mar, [facility] [address] [id number] [place] [address] Mar, [facility] [address] [id number] [place] [address] 18 Mar, 2013 [facility] [place] [facility] [address] [id number] [place] [address] Mar, [facility] [address] [id number] [place] [address] Mar, [facility] [place] [facility] [address] [id number] [place] [address] Feb, [facility] [place] [facility] [address] [id number] [place] [address] Feb, [facility] [address] [id number] [place] [address] Feb, [facility] [address] [id number] [place] [address] Feb, [facility] [place] [facility] [address] [id number] [place] [address] Feb, [facility] [place] [facility] [address] [id number] [place] [address] Feb, [facility] [place] [facility] [address] [id number] [place] [address] 26 Dec, 2012 [facility] [place] [facility] [address] [id number] [place] [address] 18 Dec, 2012 [facility] [place] [facility] [address] [id number] [place] [address] Dec, [facility] [place] [facility] [address] [id number] [place] [address] Dec, [facility] [place] [facility] [address] [id number] [place] [address] Dec, [facility] [place] [facility] [address] [id number] [place] [address] Nov, [facility] [place] [facility] [address] [id number], [place] [address] Nov, [facility] [place] [facility] [address] [id number], [place] [address] Oct, [facility] [place] [facility] [address] [id number], [place] [address] August, [facility] [place] [facility] [address] [id number] [place] [address] August, [facility] [place] [facility] [address] [id number], [place] [address] August, [facility] [place] [facility] [address] [id number], [place] [address] Jul, [facility] [place] [facility] [address] [id number], [place] [address] Jul, [facility] [address] [id number] [place] [address] 04 Jul, 2012 [facility] [address] [id number] [place] [address] 27 Jun, 2012 [facility] [address] [id number] [place] [address] Jun, [facility] [address] [id number] [place] [address] Jun, [facility] [address] [id number] [place] [address] Jun, [facility] [address] [id number] [place] [address] 18 Jun, 2012 [facility] [address] [id number] [place] [address] 15 Jun, 2012 [facility] [address] [id number] [place] [address] Jun, [facility] [address] [id number] [place] [address] 18 May, 2012 [facility] [address] [facility] [id number] [place] [address] May, [facility] [id number] [address] 06 May, 2012 [facility] [place] [facility] [address] [facility] [id number] [place] [address] 05 May, 2012 [facility] [place] [facility] [address] [id number] [place] [address] Apr, [facility] [place] [facility] [address] [id number] [place] [address] Apr, [facility] [place] [facility] [address] [id number], [place] [address] Apr, [facility] [place] [facility] [address] [id number] [place] [address] Mar, [facility] [place] [facility] [address] [id number] [place] [address] Mar, [facility] [place] [facility] [address] [id number] [place] [address] Mar, [facility] [place] [facility] [address] [id number] [place] [address] Mar, [facility] [place] [facility] [address] [id number] [place] [address] Mar, [facility] [place] [facility] [address] [id number] [place] [address] Mar, [facility] [address] [id number] [place] [address] Mar, [facility] [place] [facility] [address] [id number] [place] [address] Mar, [facility] [place] [facility] [address] [id number] [place] [address] Feb, [facility] [place] [facility] [address] [id number] [place] [address] Feb, [facility] [place] [facility] [address] [id number] [place] [address] Feb, [facility] [place] [facility] [address] [id number], [place] [address] Jan, [facility] [place] [facility] [address] [id number] [place] [address] Jan, [facility] [place] [facility] [address] [id number] [place] [address] Jan, [facility] [place] [facility] [address] [id number] [place] [address] Jan, [facility] [place] [facility] [address] [id number] [place] [address] Jan, [facility] [place] [facility] [address] [id number] [place] [address] Jan, [facility] [place] [facility] [address] [id number] [place] [address] Jan, [facility] [place] [facility] [address] [id number] [place] [address] Dec, [facility] [place] [facility] [address] [id number] [place] [address] 24 Dec, 2011 [facility] [place] [facility] [address] [id number] [place] [address] Dec, [facility] [place] [facility] [address] [id number] [place] [address] Nov, [facility] [place] [facility] [address] [id number] [place] [address] Nov, [facility] [place] [facility] [address] [id number] [place] [address] Nov, [facility] [place] [facility] [address] [id number] [place] [address] Nov, [facility] [place] [facility] [address] [id number] [place] [address] Oct, [facility] [place] [facility] [address] [id number] [place] [address] Oct, [facility] [place] [facility] [address] [id number] [place] [address] Oct, [facility] [place] [facility] [address] [id number] [place] [address] Sep, [facility] [place] [facility] [address] [id number] [place] [address] Sep, [facility] [place] [facility] [address] [id number] [place] [address] Sep, [facility] [place] [facility] [address] [id number] [place] [address] Sep, [facility] [address] [id number] [place] [address] Sep, [facility] [place] [facility] [address] [id number] [place] [address] Sep, [facility] [address] [id number] [place] [address] August, [facility] [address] [id number] [place] [address] Jul, [facility] [address] [id number] [place] [address] Jul, [facility] [address] [id number] [place] [address] Jul, [facility] [address] [id number] [place] [address] Jul, [facility] [address] [id number] [place] [address] Jul, [facility] [address] [id number] [place] [address] 29 Jun, 2011 [facility] [address] [id number] [place] [address] Jun, [facility] [place] [facility] [address] [id number] [place] [address] 15 Jun, 2011 [facility] [address] [id number] [place] [address] 15 Jun, 2011 [facility] [place] [facility] [address] [id number] [place] [address] Jun, [facility] [place] [facility] [address] [id number] [place] [address] May, [facility] [place] [facility] [address] [id number] [place] [address] May, [facility] [place] [facility] [address] [id number] [place] [address] May, [facility] [place] [facility] [address] [id number] [place] [address] May, [facility] [place] [facility] [address] [id number] [place] [address] May, [facility] [place] [facility] [address] [id number] [place] [address] May, [facility] [place] [facility] [address] [id number] [place] [address] May, [facility] [place] [facility] [address] [id number] [place] [address] Apr, [facility] [place] [facility] [address] [id number] [place] [address] Mar, [facility] [place] [facility] [address] [id number] [place] [address] Mar, [facility] [place] [facility] [address] [id number] [place] [address] Mar, [facility] [place] [facility] [address] [id number] [place] [address] Mar, [facility] [place] [facility] [address] [id number] [place] [address] 08 Mar, 2011 [facility] [place] [facility] [address] [id number] [place] [address] 23 Feb, 2011 [facility] [place] [facility] [address] [id number] [place] [address] 14 Feb, 2011 [facility] [place] [facility] [address] [id number] [place] [address] 14 Feb, 2011 [facility] [place] [facility] [address] [id number] [place] [address] 14 Feb, 2011 [facility] [place] [facility] [address] [id number] [place] [address] 07 Feb, 2011 [facility] [address] [id number] [place] [address] Feb, [facility] [address] [id number] [place] [address] Feb, [facility] [address] [id number] [place] [address] 10 Jan, 2011 [facility] [address] [id number] [place] [address] Dec, [facility] [address] [id number] [place] [address] Oct, [facility] [address] [id number] [place] [address] Jun, [facility] [address] [id number] [place] [address] Mar, [facility] [address] [id number] [place] [address] 23 Mar, 2010 [facility] [address] [id number] [place] [address] 16 Mar, 2010 [facility] [address] [facility] [id number] [place] [address] 16 Mar, 2010 [facility] [address] [id number] [place] [address] 15 Mar, 2010 [facility] [address] [id number] [place] [address] 10 Mar, 2010 [facility] [place] [facility] [address] [id number] [place] [address] 10 Mar, 2010 [facility] [place] [facility] [address] [id number] [place] [address] 05 Mar, 2010 [facility] [address] [id number] [place] [address] Mar, [facility] [address] [id number] [place] [address] Mar, [facility] [place] [facility] [address] [id number] [place] [address] Jan, [facility] [place] [facility] [address] [id number] [place] [address] Jan, [facility] [place] [facility] [address] [id number] [place] [address] Jan, [facility] [address] [id number] [place] [address] Nov, [facility] [place] [facility] [address] [id number] [place] [address] Oct, [facility] [address] [facility] [id number] [place] [address] 31 Mar, 2009 [facility] [address] [id number], [place] [address] Mar, [facility] [place] [facility] [address] [facility] [id number], [place] [address] Mar, [facility] [place] [facility] [address] [facility] [id number], [place] [address] Mar, [facility] [place] [facility] [address] [facility] [id number], [place] [address] 17 Dec, 2008 [facility] [place] [facility] [address] [id number], [place] [address] August, [facility] [place] [facility] [address] [id number], [place] [address] August, [facility] [place] [facility] [address] [id number], [place] [address] Jul, [facility] [place] [facility] [address] [facility] [id number], [place] [address] Jan, [facility] [place] [facility] [address] [id number], [place] [address] Jan, IMMUNIZATIONS Vaccine Route Administration Date Status FLULAVAL QUAD 0.5ML (6 MO & UP) 2018 IM Intramuscular Feb 14, 2018 Administered SOCIAL HISTORY Never Assessed REASON FOR VISIT Pain management (chronic) -- zafar gatica PLAN OF CARE Activity Details Follow Up 3 Months Reason:Chronic pain Pending Test LIPID PANEL Pending Test CMP Pending Test CBC Pending Test LIPASE Pending Test AMYLASE Pending Test TSH Pending Test PDM - 06 PANEL (PROFILE 3) VITAL SIGNS Height 67 in 2018-02-14 Weight 182.0 lbs 2018-02-14 Temperature 97.6 degrees Fahrenheit 2018-02-14 BMI 28.50 kg/m2 2018-02-14 Blood pressure systolic 128 mmHg 2018-02-14 Blood pressure diastolic 76 mmHg 2018-02-14 MEDICATIONS Medication Instructions Dosage Frequency Start Date End Date Duration Status Hydrocodone-Acetaminophen 10-325 MG Orally 2 times a day 1 tablet as needed 12h 05 Jan, 2018 Active Synthroid 175 MCG Orally Once a day 1 tablet on an empty stomach in the morning 24h Jul, Active Flonase 50 MCG/ACT Nasally Once a day 1 spray in each nostril 24h 09 Sep, 2014 Active Protonix 40 mg Orally Once a day 1 tablet 24h Dec, 30 days Active Premarin 0.625 MG/GM Vaginal Daily x 2 weeks then decrease to 2 days per week 0.5 gram Feb, Active Metoprolol Succinate ER 50 mg Orally Once a day 1 tablet 24h Active Eliquis 5 mg TAKE ONE TABLET BY MOUTH TWICE DAILY Active Lyrica 75 MG Orally Twice a day 1 capsule 12h Jan, Active Alendronate Sodium 10 MG Orally Once a day 1 tablet 24h Jun, 30 day(s) Active Xenical 120 MG Orally Three times a day 1 capsule 8h Oct, 30 day(s) Active RESULTS No Results PROCEDURES Procedure Date Ordered Result Body Site ASSAY THYROID STIM HORMONE Feb 14, 2018 COMPLETE CBC W/AUTO DIFF WBC Feb 14, 2018 FLULAVAL QUAD 0.5ML (6 MO AND UP) 2017Feb 14, 2018 ASSAY OF LIPASE Feb 14, 2018 SINGLE IMMUNIZATION ADMIN Feb 14, 2018 LIPID PANEL Feb 14, 2018 COMPREHEN METABOLIC PANEL Feb 14, 2018 ASSAY OF AMYLASE Feb 14, 2018 DRUG TEST PRSMV CHEM ANLYZR Feb 14, 2018 INSTRUCTIONS MEDICATIONS ADMINISTERED No Known Medications [...]
--- OUTSIDE RECORDS SUMMARY | 2018-09-22 02:44 | XMS REPORT ---
Author Author AYDENNAHOMIIN Organization [facility] Address [address] [place] [address] Care Team Providers Care Manager Laboratory Name Role Phone JOEL HENSLEY Unavailable PROBLEMS Type Condition ICD9-CM Code XGE40-YN Code Onset Dates Condition Status SNOMED Code Problem Chronic gastritis without bleeding, unspecified gastritis type K29.50 Active 7386188 Problem Vitamin D deficiency E55.9 Active 00789647 Problem Osteoporosis M81.0 Active 84141707 Problem Unspecified abdominal pain R10.9 Active 860496965 Problem Fibromyalgia M79.7 Active 67044478 Problem Chronic pain syndrome G89.4 Active 268970257 Problem Trigger point with back pain M54.9 Active 110178727 Problem Chronic tension-type headache, not intractable G44.229 Active 773576390 Problem RUQ abdominal pain R10.11 Active 673291621 Problem Pancytopenia D61.818 Active 492438510 Problem Right sided sciatica M54.31 Active 85168754 Problem Chronic prescription opiate use Z79.891 Active 672305021 Problem Drug induced constipation K59.03 Active 309895822268353 Problem Leukopenia, unspecified type D72.819 Active 17631431 Problem Atrial fibrillation, unspecified type I48.91 Active 77277553 Problem Allergic rhinitis, unspecified allergic rhinitis type J30.9 Active 84616179 Problem Chronic obstructive pulmonary disease, unspecified COPD type J44.9 Active 69675268 Problem Hypothyroidism, unspecified hypothyroidism type E03.9 Active 81797460 Problem Other constipation K59.09 Active 968316222 Problem Porokeratosis Q82.8 Active 742931794 Problem 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 Active 793733500 Problem Allergy to intravenous contrast Z91.041 Active 428649326 Problem Vaginal atrophy N95.2 Active 151185446 Problem Major depression, recurrent F33.9 Active 08257328 Problem History of hepatitis C Z86.19 Active 81717082483241 Problem Hot flashes N95.1 Active 829312792 Problem Plantar fasciitis M72.2 Active 612179983 Problem Polyneuropathy associated with underlying disease G63 Active 337709366 Problem Primary insomnia F51.01 Active 4127233 Problem Low back pain M54.5 Active 712784448 ALLERGIES No Information ENCOUNTERS Encounter Location Date Diagnosis [place] [id number] [place] [address] Jan, [facility] [id number] [place] [address] Jan, [place] [id number] [place] [address] Jan, Chronic pain syndrome G89.4 [place] [id number] [place] [address] Dec, Chronic pain syndrome G89.4 [place] [id number] [place] [address] Nov, Onychocryptosis L60.0 [place] [id number] [place] [address] Nov, Chronic pain syndrome G89.4 [place] [id number] [place] [address] Nov, Trochanteric bursitis of both hips M70.61 [place] [id number] [place] [address] Oct, Hypothyroidism, unspecified hypothyroidism type E03.9 and Atrial fibrillation, unspecified type I48.91 [place] [id number] [place] [address] Oct, Fibromyalgia M79.7 ; Chronic pain syndrome G89.4 ; Hypothyroidism, unspecified hypothyroidism type E03.9 ; Overweight (BMI 25.0-29.9) E66.3 and Atrial fibrillation, unspecified type I48.91 [place] [id number] [place] [address] Oct, Chronic pain syndrome G89.4 [place] [id number] [place] [address] Sep, Chronic pain syndrome G89.4 [facility] [id number] [place] [address] August, Somatic dysfunction of lumbar region M99.03 and Somatic dysfunction of pelvis region M99.05 [place] [address] [address] August, Chronic pain syndrome G89.4 [place] [id number] [place] [address] Jul, Trochanteric bursitis of left hip M70.62 and Trochanteric bursitis, right hip M70.61 [place] [address] [address] Jul, [place] [address] [address] Jul, Chronic pain syndrome G89.4 [place] [id number] [place] [address] Jul, Hypothyroidism, unspecified hypothyroidism type E03.9 [place] [id number] [place] [address] Jul, Hypothyroidism, unspecified hypothyroidism type E03.9 [place] [id number] [place] [address] Jul, Chronic tension-type headache, not intractable G44.229 ; Atrial fibrillation, unspecified type I48.91 ; Chronic pain syndrome G89.4 ; Hypothyroidism, unspecified hypothyroidism type E03.9 ; Pancytopenia D61.818 ; History of hepatitis C Z86.19 ; Vaginal atrophy N95.2 ; RUQ abdominal pain R10.11 ; Chronic prescription opiate use Z79.891 ; Osteoporosis M81.0 and Screening for breast cancer Z12.31 [place] [address] [place] [address] Jun, [facility] [address] [address] May, [facility] [address] [address] May, [facility] [address] [place] [address] May, [facility] [address] [place] [address] Apr, [facility] [id number] [place] [address] Apr, Hypothyroidism, unspecified hypothyroidism type E03.9 [facility] [address] [address] Apr, Hypothyroidism, unspecified hypothyroidism type E03.9 and Leukopenia, unspecified type D72.819 [facility] [address] [address] Mar, [facility] [address] [place] [address] Mar, Leukopenia, unspecified type D72.819 [facility] [address] [address] Mar, Hypothyroidism, unspecified hypothyroidism type E03.9 and Low hemoglobin D64.9 [facility] [address] [address] Mar, Hypothyroidism, unspecified hypothyroidism type E03.9 [facility] [address] [address] Mar, Osteoporosis M81.0 ; Low hemoglobin D64.9 and Hypothyroidism, unspecified hypothyroidism type E03.9 [facility] [address] [address] Mar, Hypothyroidism, unspecified hypothyroidism type E03.9 ; Bilirubin in urine R82.2 and Pancytopenia D61.818 [place] [id number] [place] [address] Feb, [facility] [place] [id number] [place] [address] 18 Feb, 2017 Cough R05 and Bronchitis J40 [facility] [address] [address] 14 Feb, 2017 Other viral agents as the cause of diseases classified elsewhere B97.89 and Acute upper respiratory infection, unspecified J06.9 [place] [address] [address] Feb, Fibromyalgia M79.7 ; Chronic pain syndrome G89.4 ; Hypothyroidism, unspecified hypothyroidism type E03.9 ; Primary insomnia F51.01 ; Osteoporosis M81.0 ; Vision abnormalities H53.9 ; Pancytopenia D61.818 ; BMI 28.0-28.9,adult Z68.28 and Encounter for immunization Z23 [place] [address] [address] Feb, Neuroma D36.10 and Capsulitis of right foot M77.51 [place] [id number] [place] [address] Feb, [place] [id number] [place] [address] Feb, Hypothyroidism, unspecified hypothyroidism type E03.9 [place] [id number] [place] [address] Jan, [place] [address] [address] Jan, Atrial fibrillation, unspecified type I48.91 [place] [id number] [place] [address] Jan, [place] [id number] [place] [address] Jan, Fibromyalgia M79.7 ; Atrial fibrillation, unspecified type I48.91 ; Pain of left hand M79.642 ; Pain in right hand M79.641 ; Chronic prescription opiate use Z79.891 ; Chronic pain syndrome G89.4 ; Elevated fasting glucose R73.01 and Hypothyroidism, unspecified hypothyroidism type E03.9 [place] [address] [address] Jan, [place] [address] [address] Dec, Trochanteric bursitis of both hips M70.61 [place] [address] [address] Dec, [place] [address] [address] Dec, [place] [address] [address] Nov, [place] [address] [address] Nov, Unilateral headache R51 [place] [address] [address] Nov, [place] [id number] [place] [address] Oct, Unilateral headache R51 ; 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 and Allergy to intravenous contrast Z91.041 [facility] [id number] [place] [address] Oct, [place] [address] [address] Oct, [facility] [address] [address] Sep, Hypothyroidism, unspecified hypothyroidism type E03.9 [place] [id number] [place] [address] Sep, Hypothyroidism, unspecified hypothyroidism type E03.9 and Bilirubin in urine R82.2 [place] [address] [address] Sep, Trochanteric bursitis of both hips M70.61 [place] [address] [address] Sep, Hypothyroidism, unspecified hypothyroidism type E03.9 ; Dysuria R30.0 ; Chronic tension-type headache, not intractable G44.229 and Drug induced constipation K59.03 [place] [address] [address] Sep, [place] [address] [address] Sep, [facility] [address] [address] August, [facility] [address] [address] Jul, [place] [address] [address] Jul, Trochanteric bursitis of right hip M70.61 [place] [address] [address] Jul, Hypothyroidism, unspecified hypothyroidism type E03.9 [place] [id number] [place] [address] Jul, Fibromyalgia M79.7 ; Chronic pain syndrome G89.4 ; Hypothyroidism, unspecified hypothyroidism type E03.9 and Other constipation K59.09 [facility] [id number] [place] [address] Jun, Swollen tonsil J35.1 and Strep throat J02.0 [place] [address] [place] [address] Jun, [facility] [id number] [place] [address] Jun, Acute maxillary sinusitis J01.00 [facility] [id number] [place] [address] Jun, Hypothyroidism, unspecified hypothyroidism type E03.9 [facility] [address] [address] Jun, Chronic pain syndrome G89.4 ; Fibromyalgia M79.7 ; Hypothyroidism, unspecified hypothyroidism type E03.9 and Chronic prescription opiate use Z79.891 [place] [address] [address] May, [facility] [id number] [place] [address] Apr, Hypothyroidism, unspecified hypothyroidism type E03.9 [facility] [id number] [place] [address] Apr, [facility] [address] [address] Apr, Lipid screening Z13.220 and Hypothyroidism, unspecified hypothyroidism type E03.9 [facility] [id number] [place] [address] Apr, [facility] [address] [address] Mar, Trochanteric bursitis of both hips M70.61 [facility] [address] [address] Mar, [facility] [address] [address] Mar, Plantar fasciitis M72.2 and Porokeratosis Q82.8 [facility] [address] [address] Feb, Lipid screening Z13.220 ; Vitamin D deficiency E55.9 and Hypothyroidism, unspecified hypothyroidism type E03.9 [place] [id number] [place] [address] Feb, Chronic pain syndrome G89.4 ; Hypothyroidism, unspecified hypothyroidism type E03.9 ; Pancytopenia D61.818 ; Vaginal atrophy N95.2 ; Chronic gastritis without bleeding, unspecified gastritis type K29.50 ; Vitamin D deficiency E55.9 ; Chronic prescription opiate use Z79.891 ; Adverse effect of other opioids, initial encounter T40.2X5A ; Drug induced constipation K59.03 ; Lipid screening Z13.220 and Encounter for immunization Z23 [place] [address] [address] Feb, [place] [address] [address] Feb, Ingrown toenail L60.0 [place] [id number] [place] [address] Jan, [place] [address] [address] Jan, Trochanteric bursitis of both hips M70.61 [place] [address] [address] Jan, [place] [id number] [place] [address] Jan, [place] [id number] [place] [address] Jan, [place] [address] [address] Jan, Right sided sciatica M54.31 [place] [id number] [place] [address] Dec, Onychomycosis B35.1 [place] [address] [address] Dec, [facility] [id number] [place] [address] Dec, [facility] [id number] [place] [address] Dec, [facility] [id number] [place] [address] Dec, Osteoarthritis of right hip, unspecified osteoarthritis type M16.11 and Bursitis of right hip M70.71 [facility] [id number] [place] [address] Nov, [facility] [id number] [place] [address] Nov, [facility] [id number] [place] [address] Nov, [facility] [id number] [place] [address] Nov, Hypothyroidism, unspecified hypothyroidism type E03.9 ; Vitamin D deficiency E55.9 and History of hepatitis C Z86.19 [facility] [address] [place] [address] Nov, Right upper quadrant pain R10.11 ; History of hepatitis C Z86.19 and Low back pain M54.5 [facility] [address] [address] Oct, Trochanteric bursitis, right hip M70.61 [facility] [id number] [place] [address] Oct, [facility] [id number] [place] [address] Oct, [facility] [address] [place] [address] Oct, Trochanteric bursitis of both hips M70.61 and Right sided sciatica M54.31 [place] [id number] [place] [address] 20 Oct, 2015 Trochanteric bursitis of both hips M70.61 [place] [id number] [place] [address] 14 Oct, 2015 RUQ abdominal pain R10.11 [place] [address] [address] 13 Oct, 2015 Sciatic leg pain M54.30 [place] [id number] [place] [address] Oct, RUQ abdominal pain R10.11 [place] [id number] [place] [address] 07 Oct, 2015 RUQ abdominal pain R10.11 ; History of hepatitis C Z86.19 and Trigger point with back pain M54.9 [place] [id number] [place] [address] Sep, [place] [id number] [place] [address] 09 Sep, 2015 Right sided sciatica M54.31 [place] [id number] [place] [address] 06 Sep, 2015 Hypothyroidism, unspecified hypothyroidism type E03.9 and Vitamin D deficiency E55.9 [place] [id number] [place] [address] Sep, Plantar fasciitis M72.2 and Porokeratosis Q82.8 [place] [id number] [place] [address] Sep, Hypothyroidism, unspecified hypothyroidism type E03.9 ; Chronic pain syndrome G89.4 ; Polyneuropathy associated with underlying disease G63 and Vitamin D deficiency E55.9 [place] [id number] [place] [address] August, [facility] [id number] [place] [address] Jul, Plantar fasciitis M72.2 [place] [id number] [place] [address] Jul, Trochanteric bursitis, right hip M70.61 [place] [address] [address] Jul, Hypothyroidism, unspecified hypothyroidism type E03.9 [place] [id number] [place] [address] Jul, Hypothyroidism, unspecified hypothyroidism type E03.9 ; Chronic pain syndrome G89.4 and Polyneuropathy associated with underlying disease G63 [place] [id number] [place] [address] 10 Jun, 2015 Trochanteric bursitis of both hips M70.61 [place] [id number] [place] [address] 08 Jun, 2015 Vitamin D deficiency E55.9 ; Osteoporosis M81.0 ; Low back pain M54.5 and Plantar fasciitis M72.2 [place] [id number] [place] [address] May, Vitamin D deficiency E55.9 and Hypothyroidism, unspecified hypothyroidism type E03.9 [place] [id number] [place] [address] May, Acute maxillary sinusitis J01.00 [place] [id number] [place] [address] May, Osteoporosis M81.0 and Hypothyroidism, unspecified hypothyroidism type E03.9 [place] [id number] [place] [address] May, Osteoporosis M81.0 [place] [address] [address] 15 May, 2015 [place] [id number] [place] [address] Apr, [place] [id number] [place] [address] Apr, Trochanteric bursitis of both hips M70.61 [place] [id number] [place] [address] Apr, Hypothyroidism, unspecified hypothyroidism type E03.9 [place] [id number] [place] [address] Apr, Chronic pain syndrome G89.4 ; Bilateral low back pain with sciatica, sciatica laterality unspecified M54.40 ; Pain in right hip M25.551 ; Pain in left hip M25.552 ; Chronic prescription opiate use Z79.899 ; Primary insomnia F51.01 and Hypothyroidism, unspecified hypothyroidism type E03.9 [place] [id number] [place] [address] 18 Mar, 2015 [place] [id number] [place] [address] Feb, [place] [id number] [place] [address] 16 Feb, 2015 Chronic pain syndrome G89.4 and Major depression F32.9 [place] [id number] [place] [address] 16 Feb, 2015 Fatigue R53.83 [place] [id number] [place] [address] 13 Feb, 2015 History of fracture Z87.81 [place] [id number] [place] [address] 12 Feb, 2015 Major depression, recurrent F33.9 and Generalized anxiety disorder F41.1 [place] [id number] [place] [address] Feb, [facility] [address] [address] Jan, Hypothyroidism, unspecified hypothyroidism type E03.9 [place] [address] [place] [address] Jan, Abdominal pain R10.9 and Hypothyroidism, unspecified hypothyroidism type E03.9 [place] [id number] [place] [address] Jan, Abdominal pain R10.9 [place] [id number] [place] [address] Jan, Hypothyroidism, unspecified hypothyroidism type E03.9 [place] [id number] [place] [address] Jan, [place] [id number] [place] [address] Jan, 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.419 and Hypothyroidism, unspecified hypothyroidism type E03.9 [place] [address] [place] [address] Jan, 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.419 ; Abdominal pain R10.9 ; Dyspareunia N94.1 ; Encounter for immunization Z23 ; History of fracture Z87.81 ; Fatigue R53.83 ; Throat fullness R68.89 ; Bruises easily R23.8 ; Hot flashes N95.1 ; Depression F32.9 and Vaginal atrophy N95.2 [place] [address] [address] Jan, Hypothyroidism, unspecified hypothyroidism type E03.9 [place] [address] [address] Jan, Unspecified abdominal pain R10.9 ; Chronic obstructive pulmonary disease, unspecified COPD type J44.9 ; Allergic rhinitis, unspecified allergic rhinitis type J30.9 ; Chronic pain syndrome G89.4 ; Hypothyroidism, unspecified hypothyroidism type E03.9 ; Chest pain, unspecified chest pain type R07.9 and Plantar fasciitis M72.2 [facility] [id number] [place] [address] Jan, Trochanteric bursitis of both hips M70.61 [facility] [id number] [place] [id number] Dec, [facility] [address] [id number] Nov, [facility] [address] [address] Nov, [facility] [address] [address] Nov, Constipation 564.00 [facility] [address] [address] Oct, Chronic pain 338.29 and Hypothyroidism 244.9 [facility] [id number] [place] [phone] Oct, [facility] [id number] [place] [id number] Sep, [facility] [id number] [place] [phone] Sep, [facility] [id number] [place] [phone] Sep, [facility] [id number] [place] [phone] Sep, [facility] [id number] [place] [phone] Sep, [facility] [id number] [place] [phone] Sep, [facility] [address] [place] [address] Sep, COPD exacerbation 491.21 ; Chronic pain 338.29 ; Hypothyroidism 244.9 and Pancytopenia 284.19 [facility] [address] [address] August, [facility] [address] [address] Jul, [facility] [id number] [place] [address] Jul, [facility] [id number] [place] [address] Jun, [facility] [id number] [place] [address] Jun, [facility] [id number] [place] [address] Jun, [facility] [id number] [place] [address] Jun, [facility] [id number] [place] [address] Jun, [facility] [address] [address] May, [facility] [address] [address] May, [facility] [address] [address] May, [facility] [address] [address] May, [facility] [address] [address] May, [facility] [address] [address] May, [facility] [place] [facility] [address] [id number] [place] [address] May, 2014 [facility] [place] [facility] [address] [id number] [place] [address] May, 2014 [facility] [place] [facility] [address] [id number] [place] [address] May, 2014 [facility] [place] [facility] [address] [id number] [place] [address] May, 2014 [facility] [place] [facility] [address] [id number] [place] [address] May, 2014 [facility] [place] [facility] [address] [id number] [place] [address] May, 2014 [facility] [place] [facility] [address] [facility] [id number] [place] [address] May, [facility] [place] [facility] [address] [id number] [place] [address] Apr, [facility] [place] [facility] [address] [id number] [place] [address] Apr, [facility] [place] [facility] [address] [facility] [id number] [address] Apr, [facility] [place] [facility] [address] [facility] [id number] [address] Apr, [facility] [place] [facility] [address] [id number] [address] Apr, [facility] [place] [facility] [address] [id number] [address] Apr, [facility] [place] [facility] [address] [id number] [address] Apr, [facility] [place] [facility] [address] [facility] [id number] [address] Mar, [facility] [place] [facility] [address] [id number] [address] Mar, [facility] [place] [facility] [address] [id number] [place] [address] Mar, [facility] [place] [facility] [address] [id number] [place] [address] Mar, [facility] [place] [facility] [address] [facility] [id number] [place] [address] Mar, [facility] [place] [facility] [address] [id number] [place] [address] Mar, [facility] [place] [facility] [address] [facility] [id number] [place] [address] Feb, [facility] [place] [facility] [address] [id number] [place] [address] Feb, [facility] [place] [facility] [address] [facility] [id number] [address] Feb, [facility] [place] [facility] [address] [id number] [place] [address] Feb, [facility] [place] [facility] [address] [facility] [id number] [place] [address] Feb, [facility] [place] [facility] [address] [facility] [id number] [address] Feb, [facility] [place] [facility] [address] [id number] [address] Jan, [facility] [place] [facility] [address] [id number] [address] Jan, [facility] [place] [facility] [address] [id number] [address] Jan, [facility] [place] [facility] [address] [facility] [id number] [address] Jan, [facility] [place] [facility] [address] [facility] [id number] [address] Jan, [facility] [place] [facility] [address] [id number] [place] [address] Jan, [facility] [place] [facility] [address] [id number] [place] [address] Jan, [facility] [place] [facility] [address] [id number] [place] [address] Jan, [facility] [place] [facility] [address] [id number] [place] [address] Dec, [facility] [place] [facility] [address] [id number] [place] [address] Dec, [facility] [place] [facility] [address] [id number] [place] [address] Dec, [facility] [place] [facility] [address] [id number] [place] [address] Dec, [facility] [place] [facility] [address] [id number] [place] [address] Dec, [facility] [place] [facility] [address] [id number] [place] [address] Dec, [facility] [place] [facility] [address] [id number] [place] [address] Dec, [facility] [place] [facility] [address] [id number] [place] [address] Nov, [facility] [place] [facility] [address] [id number] [place] [address] Nov, [facility] [place] [facility] [address] [id number] [place] [address] Oct, [facility] [place] [facility] [address] [id number] [place] [address] Oct, [facility] [place] [facility] [address] [id number] [place] [address] Oct, [facility] [place] [facility] [address] [id number] [place] [address] Oct, [facility] [place] [facility] [address] [id number] [place] [address] Sep, [facility] [place] [facility] [address] [id number] [place] [address] Sep, [facility] [place] [facility] [address] [id number] [place] [address] Sep, [facility] [place] [facility] [address] [id number] [place] [address] Sep, [facility] [place] [facility] [address] [id number] [place] [address] Sep, [facility] [place] [facility] [address] [id number] [place] [address] Sep, [facility] [place] [facility] [address] [id number] [place] [address] Sep, [facility] [place] [facility] [address] [id number] [place] [address] Sep, [facility] [place] [facility] [address] [id number] [place] [address] August, [facility] [place] [facility] [address] [id number] [place] [address] August, [facility] [place] [facility] [address] [id number] [place] [address] August, [facility] [place] [facility] [address] [id number] [place] [address] August, [facility] [place] [facility] [address] [id number] [place] [address] Jul, [facility] [place] [facility] [address] [id number] [place] [address] Jul, [facility] [place] [facility] [address] [id number] [place] [address] Jul, [facility] [place] [facility] [address] [id number] [place] [address] 24 Jul, 2013 [facility] [place] [facility] [address] [id number] [place] [address] 17 Jul, 2013 [facility] [place] [facility] [address] [id number] [place] [address] 16 Jul, 2013 [facility] [place] [facility] [address] [id number] [place] [address] 15 Jul, 2013 [facility] [place] [facility] [address] [id number] [place] [address] 15 Jul, 2013 [facility] [place] [facility] [address] [id number] [place] [address] Jun, [facility] [place] [facility] [address] [id number] [place] [address] Jun, [facility] [place] [facility] [address] [id number] [place] [address] Jun, [facility] [place] [facility] [address] [id number] [place] [address] Jun, [facility] [place] [facility] [address] [id number] [place] [address] Jun, [facility] [place] [facility] [address] [facility] [id number] [place] [address] Jun, [facility] [place] [facility] [address] [id number] [place] [address] Jun, [facility] [place] [facility] [address] [id number] [place] [address] Jun, [facility] [place] [facility] [address] [id number] [place] [address] May, [facility] [place] [facility] [address] [id number] [place] [address] May, [facility] [place] [facility] [address] [id number] [place] [address] Apr, [facility] [place] [facility] [address] [id number] [place] [address] 17 Apr, 2013 [facility] [place] [facility] [address] [id number] [place] [address] Mar, [facility] [place] [facility] [address] [id number] [place] [address] Mar, [facility] [place] [facility] [address] [id number] [place] [address] Mar, [facility] [address] [id number] [place] [address] Mar, [facility] [place] [facility] [address] [id number] [place] [address] Mar, [facility] [address] [id number] [place] [address] Mar, [facility] [place] [facility] [address] [id number] [place] [address] Mar, [facility] [place] [facility] [address] [id number] [place] [address] Feb, [facility] [place] [facility] [address] [id number] [place] [address] Feb, [facility] [place] [facility] [address] [id number] [place] [address] Feb, [facility] [place] [facility] [address] [id number] [address] Feb, [facility] [place] [facility] [address] [id number] [place] [address] Feb, [facility] [place] [facility] [address] [id number] [place] [address] Feb, [facility] [place] [facility] [address] [id number] [place] [address] Dec, [facility] [place] [facility] [address] [id number] [address] 18 Dec, 2012 [facility] [address] [id number] [place] [address] Dec, [facility] [place] [facility] [address] [id number] [place] [address] Dec, [facility] [address] [id number] [place] [address] Dec, [facility] [address] [id number] [place] [address] Nov, [facility] [address] [id number] [place] [address] Nov, [facility] [address] [id number] [place] [address] Oct, [facility] [address] [id number] [place] [address] August, [facility] [address] [id number] [place] [address] August, [facility] [address] [id number] [place] [address] August, [facility] [address] [id number] [place] [address] Jul, [facility] [address] [id number] [place] [address] Jul, [facility] [place] [facility] [address] [id number] [place] [address] Jul, [facility] [place] [facility] [address] [id number] [place] [address] Jun, [facility] [place] [facility] [address] [id number] [place] [address] Jun, [facility] [place] [facility] [address] [id number] [place] [address] Jun, [facility] [place] [facility] [address] [id number] [place] [address] 20 Jun, 2012 [facility] [address] [id number] [place] [address] 18 Jun, 2012 [facility] [place] [facility] [address] [id number] [place] [address] 15 Jun, 2012 [facility] [place] [facility] [address] [id number] [place] [address] 12 Jun, 2012 [facility] [place] [facility] [address] [id number] [place] [address] 18 May, 2012 [facility] [place] [facility] [address] [id number] [place] [address] May, [facility] [place] [facility] [address] [id number] [place] [address] 06 May, 2012 [facility] [place] [facility] [address] [id number] [place] [address] 05 May, 2012 [facility] [address] [id number] [place] [address] Apr, [facility] [address] [id number] [place] [address] Apr, [facility] [place] [facility] [address] [id number] [place] [address] Apr, [facility] [address] [id number] [place] [address] Mar, [facility] [place] [facility] [address] [id number] [place] [address] Mar, [facility] [place] [facility] [address] [id number] [place] [address] Mar, [facility] [place] [facility] [address] [id number] [place] [address] Mar, [facility] [place] [facility] [address] [id number] [place] [address] Mar, [facility] [place] [facility] [address] [id number] [place] [address] Mar, [facility] [place] [facility] [address] [id number] [place] [address] Mar, [facility] [place] [facility] [address] [facility] [id number] [place] [address] Mar, [facility] [place] [facility] [address] [id number] [place] [address] Feb, [facility] [place] [facility] [address] [id number] [place] [address] Feb, [facility] [place] [facility] [address] [id number] [place] [address] Feb, [facility] [place] [facility] [address] [id number] [place] [address] Jan, [facility] [place] [facility] [address] [id number] [address] Jan, [facility] [place] [facility] [address] [id number] [address] Jan, [facility] [place] [facility] [address] [id number] [place] [address] Jan, [facility] [place] [facility] [address] [id number] [place] [address] Jan, [facility] [place] [facility] [address] [id number] [place] [address] Jan, [facility] [place] [facility] [address] [id number] [place] [address] Jan, [facility] [place] [facility] [address] [facility] [id number] [place] [address] Dec, [facility] [place] [facility] [address] [id number] [place] [address] 24 Dec, 2011 [facility] [place] [facility] [address] [id number] [place] [address] Dec, [facility] [address] [id number] [place] [address] Nov, [facility] [place] [facility] [address] [id number] [place] [address] Nov, [facility] [address] [id number] [place] [address] Nov, [facility] [place] [facility] [address] [id number] [place] [address] Nov, [facility] [address] [id number] [place] [address] Oct, [facility] [address] [id number] [place] [address] Oct, [facility] [address] [id number] [place] [address] Oct, [facility] [address] [id number] [place] [address] Sep, [facility] [place] [facility] [address] [id number] [place] [address] Sep, [facility] [address] [id number] [place] [address] Sep, [facility] [place] [facility] [address] [id number] [place] [address] Sep, [facility] [place] [facility] [address] [id number] [place] [address] Sep, [facility] [place] [facility] [address] [id number] [place] [address] Sep, [facility] [place] [facility] [address] [id number] [place] [address] August, [facility] [place] [facility] [address] [id number] [place] [address] Jul, [facility] [place] [facility] [address] [id number] [place] [address] 18 Jul, 2011 [facility] [place] [facility] [address] [id number] [place] [address] Jul, [facility] [place] [facility] [address] [id number] [place] [address] Jul, [facility] [place] [facility] [address] [id number] [place] [address] Jul, [facility] [place] [facility] [address] [id number] [place] [address] 29 Jun, 2011 [facility] [place] [facility] [address] [id number] [place] [address] Jun, [facility] [place] [facility] [address] [id number] [place] [address] Jun, [facility] [place] [facility] [address] [id number] [place] [address] Jun, [facility] [place] [facility] [address] [id number] [place] [address] Jun, [facility] [place] [facility] [address] [id number] [place] [address] May, [facility] [place] [facility] [address] [facility] [id number] [place] [address] May, [facility] [place] [facility] [address] [id number] [place] [address] May, [facility] [place] [facility] [address] [id number] [place] [address] May, [facility] [place] [facility] [address] [id number] [place] [address] May, [facility] [place] [facility] [address] [id number] [place] [address] May, [facility] [place] [facility] [address] [id number] [place] [address] 02 May, 2011 [facility] [address] [id number] [place] [address] 10 Apr, 2011 [facility] [place] [facility] [address] [id number] [place] [address] 29 Mar, 2011 [facility] [place] [facility] [address] [id number] [place] [address] Mar, [facility] [place] [facility] [address] [id number] [place] [address] Mar, [facility] [place] [facility] [address] [id number] [place] [address] Mar, [facility] [place] [facility] [address] [id number] [place] [address] Mar, [facility] [place] [facility] [address] [id number] [place] [address] 23 Feb, 2011 [facility] [place] [facility] [address] [id number] [place] [address] 14 Feb, 2011 [facility] [place] [facility] [address] [id number] [place] [address] Feb, [facility] [place] [facility] [address] [id number] [place] [address] 14 Feb, 2011 [facility] [place] [facility] [address] [id number] [place] [address] Feb, [facility] [place] [facility] [address] [id number] [place] [address] Feb, [facility] [place] [facility] [address] [id number] [place] [address] 04 Feb, 2011 [facility] [place] [facility] [address] [id number] [place] [address] 10 Jan, 2011 [facility] [place] [facility] [address] [id number] [place] [address] Dec, [facility] [place] [facility] [address] [id number] [place] [address] 11 Oct, 2010 [facility] [address] [id number] [place] [address] Jun, [facility] [address] [id number] [place] [address] Mar, [facility] [address] [id number] [place] [address] Mar, [facility] [address] [id number] [place] [address] 16 Mar, 2010 [facility] [address] [id number] [place] [address] Mar, [facility] [address] [id number] [place] [address] 15 Mar, 2010 [facility] [address] [id number] [place] [address] Mar, [facility] [address] [id number] [place] [address] Mar, [facility] [address] [id number] [place] [address] 05 Mar, 2010 [facility] [address] [id number] [place] [address] Mar, [facility] [address] [id number] [place] [address] Mar, [facility] [address] [id number] [place] [address] Jan, [facility] [place] [facility] [address] [id number] [place] [address] Jan, [facility] [address] [id number] [place] [address] Jan, [facility] [place] [facility] [address] [id number] [address] Nov, [facility] [id number] [address] Oct, [facility] [id number] [address] Mar, [facility] [id number] [address] Mar, [facility] [id number] [address] Mar, [facility] [id number] [address] Mar, [facility] [id number] [address] Dec, [facility] [address] [address] August, [facility] [id number] [address] August, [facility] [id number] [address] Jul, [facility] [id number] [address] Jan, [facility] [address] [id number] [address] Jan, IMMUNIZATIONS No Known Immunizations SOCIAL HISTORY Never Assessed REASON FOR VISIT greta higgins/anastasia Black MA PLAN OF CARE Activity Details Follow Up 2 Months Reason: VITAL SIGNS Height 67 in 2017-12-10 Blood pressure systolic 100 mmHg 2017-12-10 Blood pressure diastolic 70 mmHg 2017-12-10 MEDICATIONS Unknown Medications RESULTS No Results PROCEDURES [...]
--- OUTSIDE RECORDS SUMMARY | 2018-09-22 02:45 | XMS REPORT ---
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 Name Role Phone DANICA LERMAY Unavailable PROBLEMS Type Condition ICD9-CM Code OSU18-FZ Code Onset Dates Condition Status SNOMED Code Problem Chronic gastritis without bleeding, unspecified gastritis type K29.50 Active 5276292 Problem Vitamin D deficiency E55.9 Active 78320644 Problem Osteoporosis M81.0 Active 43141020 Problem Unspecified abdominal pain R10.9 Active 994334259 Problem Fibromyalgia M79.7 Active 36886218 Problem Chronic pain syndrome G89.4 Active 132676104 Problem Trigger point with back pain M54.9 Active 341532849 Problem Chronic tension-type headache, not intractable G44.229 Active 509889414 Problem RUQ abdominal pain R10.11 Active 461553949 Problem Pancytopenia D61.818 Active 622641002 Problem Right sided sciatica M54.31 Active 74989882 Problem Chronic prescription opiate use Z79.891 Active 063462320 Problem Drug induced constipation K59.03 Active 147269394116657 Problem Leukopenia, unspecified type D72.819 Active 05015158 Problem Atrial fibrillation, unspecified type I48.91 Active 91563352 Problem Allergic rhinitis, unspecified allergic rhinitis type J30.9 Active 33115742 Problem Chronic obstructive pulmonary disease, unspecified COPD type J44.9 Active 87717734 Problem Hypothyroidism, unspecified hypothyroidism type E03.9 Active 07869939 Problem Other constipation K59.09 Active 220799043 Problem Porokeratosis Q82.8 Active 800800660 Problem 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 Active 039656237 Problem Allergy to intravenous contrast Z91.041 Active 952420878 Problem Vaginal atrophy N95.2 Active 256863050 Problem Major depression, recurrent F33.9 Active 46337573 Problem History of hepatitis C Z86.19 Active 23888560355698 Problem Hot flashes N95.1 Active 968228025 Problem Plantar fasciitis M72.2 Active 241581716 Problem Polyneuropathy associated with underlying disease G63 Active 535307059 Problem Primary insomnia F51.01 Active 7597014 Problem Low back pain M54.5 Active 502398212 ALLERGIES No Information ENCOUNTERS Encounter Location Date Diagnosis [facility] [address], [place] [address] Jan, [facility] [id number] [place] [address] Jan, [place] [id number] [place] [address] Jan, Chronic pain syndrome G89.4 [place] [id number] [place] [address] Dec, Chronic pain syndrome G89.4 [place] [id number] [place] [address] Nov, Onychocryptosis L60.0 [place] [id number] [place] [address] Nov, Chronic pain syndrome G89.4 [place] [id number] [place] [address] Nov, Trochanteric bursitis of both hips M70.61 [place] [id number] [place] [address] Oct, Hypothyroidism, unspecified hypothyroidism type E03.9 and Atrial fibrillation, unspecified type I48.91 [place] [id number] [place] [address] Oct, Fibromyalgia M79.7 ; Chronic pain syndrome G89.4 ; Hypothyroidism, unspecified hypothyroidism type E03.9 ; Overweight (BMI 25.0-29.9) E66.3 and Atrial fibrillation, unspecified type I48.91 [place] [id number] [place] [address] Oct, Chronic pain syndrome G89.4 [place] [address] [place] [address] Sep, Chronic pain syndrome G89.4 [place] [id number] [place] [address] August, Somatic dysfunction of lumbar region M99.03 and Somatic dysfunction of pelvis region M99.05 [place] [id number] [place] [address] August, Chronic pain syndrome G89.4 [place] [id number] [place] [address] Jul, Trochanteric bursitis of left hip M70.62 and Trochanteric bursitis, right hip M70.61 [place] [id number] [place] [address] Jul, [place] [id number] [place] [address] Jul, Chronic pain syndrome G89.4 [place] [id number] [place] [address] Jul, Hypothyroidism, unspecified hypothyroidism type E03.9 [place] [address] [place] [address] Jul, Hypothyroidism, unspecified hypothyroidism type E03.9 [place] [id number] [place] [address] 10 Jul, 2017 Chronic tension-type headache, not intractable G44.229 ; Atrial fibrillation, unspecified type I48.91 ; Chronic pain syndrome G89.4 ; Hypothyroidism, unspecified hypothyroidism type E03.9 ; Pancytopenia D61.818 ; History of hepatitis C Z86.19 ; Vaginal atrophy N95.2 ; RUQ abdominal pain R10.11 ; Chronic prescription opiate use Z79.891 ; Osteoporosis M81.0 and Screening for breast cancer Z12.31 [place] [address] [address] Jun, [facility] [address], [place] [address] May, [facility] [address], [place] [address] May, [facility] [address] [place] [address] May, [facility] [address] [place] [address] Apr, [facility] [id number] [place] [address] Apr, Hypothyroidism, unspecified hypothyroidism type E03.9 [facility] [address], [place] [address] Apr, Hypothyroidism, unspecified hypothyroidism type E03.9 and Leukopenia, unspecified type D72.819 [facility] [address] [address] Mar, [facility] [address], [place] [address] Mar, Leukopenia, unspecified type D72.819 [facility] [address], [place] [address] Mar, Hypothyroidism, unspecified hypothyroidism type E03.9 and Low hemoglobin D64.9 [facility] [address], [place] [address] Mar, Hypothyroidism, unspecified hypothyroidism type E03.9 [facility] [address], [place] [address] Mar, Osteoporosis M81.0 ; Low hemoglobin D64.9 and Hypothyroidism, unspecified hypothyroidism type E03.9 [facility] [address], [place] [address] Mar, Hypothyroidism, unspecified hypothyroidism type E03.9 ; Bilirubin in urine R82.2 and Pancytopenia D61.818 [place] [address] [address] Feb, [facility] [place] [address] [address] Feb, Cough R05 and Bronchitis J40 [facility] [address] [address] 14 Feb, 2017 Other viral agents as the cause of diseases classified elsewhere B97.89 and Acute upper respiratory infection, unspecified J06.[address] [address] Feb, Fibromyalgia M79.7 ; Chronic pain syndrome G89.4 ; Hypothyroidism, unspecified hypothyroidism type E03.9 ; Primary insomnia F51.01 ; Osteoporosis M81.0 ; Vision abnormalities H53.9 ; Pancytopenia D61.818 ; BMI 28.0-28.9,adult Z68.28 and Encounter for immunization Z23 [address] [address] Feb, Neuroma D36.10 and Capsulitis of right foot M77.51 [place] [address] [address] Feb, [place] [address] [address] Feb, Hypothyroidism, unspecified hypothyroidism type E03.9 [place] [id number] [place] [address] Jan, [place] [address] [address] Jan, Atrial fibrillation, unspecified type I48.91 [place] [address] [address] Jan, [place] [id number] [place] [address] Jan, Fibromyalgia M79.7 ; Atrial fibrillation, unspecified type I48.91 ; Pain of left hand M79.642 ; Pain in right hand M79.641 ; Chronic prescription opiate use Z79.891 ; Chronic pain syndrome G89.4 ; Elevated fasting glucose R73.01 and Hypothyroidism, unspecified hypothyroidism type E03.9 [facility] [address] [address] Jan, [facility] [id number] [place] [address] Dec, Trochanteric bursitis of both hips M70.61 [place] [address] [address] Dec, [place] [id number] [place] [address] Dec, [facility] [id number] [place] [address] Nov, [facility] [id number] [place] [address] Nov, Unilateral headache R51 [facility] [id number] [place] [address] Nov, [facility] [id number] [place] [address] Oct, Unilateral headache R51 ; 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 and Allergy to intravenous contrast Z91.041 [facility] [id number] [place] [address] Oct, [facility] [id number] [place] [address] Oct, [facility] [id number] [place] [address] Sep, Hypothyroidism, unspecified hypothyroidism type E03.9 [facility] [id number] [place] [address] Sep, Hypothyroidism, unspecified hypothyroidism type E03.9 and Bilirubin in urine R82.2 [facility] [address] [address] Sep, Trochanteric bursitis of both hips M70.61 [place] [address] [address] Sep, Hypothyroidism, unspecified hypothyroidism type E03.9 ; Dysuria R30.0 ; Chronic tension-type headache, not intractable G44.229 and Drug induced constipation K59.03 [place] [address] [address] Sep, [place] [address] [address] Sep, [facility] [address] [address] August, [facility] [address] [address] Jul, [place] [address] [address] Jul, Trochanteric bursitis of right hip M70.61 [place] [address] [address] Jul, Hypothyroidism, unspecified hypothyroidism type E03.9 [facility] [id number] [place] [address] Jul, Fibromyalgia M79.7 ; Chronic pain syndrome G89.4 ; Hypothyroidism, unspecified hypothyroidism type E03.9 and Other constipation K59.09 [facility] [id number] [place] [address] Jun, Swollen tonsil J35.1 and Strep throat J02.0 [facility] [address] [place] [address] Jun, [facility] [id number] [place] [address] Jun, Acute maxillary sinusitis J01.00 [facility] [id number] [place] [address] Jun, Hypothyroidism, unspecified hypothyroidism type E03.9 [facility] [address] [address] Jun, Chronic pain syndrome G89.4 ; Fibromyalgia M79.7 ; Hypothyroidism, unspecified hypothyroidism type E03.9 and Chronic prescription opiate use Z79.891 [place] [id number] [place] [address] May, [facility] [id number] [place] [address] Apr, Hypothyroidism, unspecified hypothyroidism type E03.9 [facility] [id number] [place] [address] Apr, [facility] [id number] [place] [address] Apr, Lipid screening Z13.220 and Hypothyroidism, unspecified hypothyroidism type E03.9 [facility] [id number] [place] [address] Apr, [facility] [id number] [place] [address] Mar, Trochanteric bursitis of both hips M70.61 [facility] [address] [address] Mar, [facility] [address] [address] Mar, Plantar fasciitis M72.2 and Porokeratosis Q82.8 [facility] [address] [address] Feb, Lipid screening Z13.220 ; Vitamin D deficiency E55.9 and Hypothyroidism, unspecified hypothyroidism type E03.9 [place] [id number] [place] [address] Feb, Chronic pain syndrome G89.4 ; Hypothyroidism, unspecified hypothyroidism type E03.9 ; Pancytopenia D61.818 ; Vaginal atrophy N95.2 ; Chronic gastritis without bleeding, unspecified gastritis type K29.50 ; Vitamin D deficiency E55.9 ; Chronic prescription opiate use Z79.891 ; Adverse effect of other opioids, initial encounter T40.2X5A ; Drug induced constipation K59.03 ; Lipid screening Z13.220 and Encounter for immunization Z23 [place] [address] [address] Feb, [place] [address] [address] Feb, Ingrown toenail L60.0 [place] [address] [address] Jan, [place] [address] [address] Jan, Trochanteric bursitis of both hips M70.61 [place] [address] [address] Jan, [place] [address] [address] Jan, [place] [id number] [place] [address] Jan, [place] [address] [address] Jan, Right sided sciatica M54.31 [place] [id number] [place] [address] Dec, Onychomycosis B35.1 [place] [address], [place] [address] Dec, [facility] [address], [place] [address] Dec, [facility] [address], [place] [address] Dec, [facility] [id number] [place] [address] Dec, Osteoarthritis of right hip, unspecified osteoarthritis type M16.11 and Bursitis of right hip M70.71 [facility] [id number] [place] [address] Nov, [facility] [id number] [place] [address] Nov, [facility] [id number] [place] [address] Nov, [facility] [id number] [place] [address] Nov, Hypothyroidism, unspecified hypothyroidism type E03.9 ; Vitamin D deficiency E55.9 and History of hepatitis C Z86.19 [facility] [address], [place] [address] Nov, Right upper quadrant pain R10.11 ; History of hepatitis C Z86.19 and Low back pain M54.5 [facility] [address], [place] [address] Oct, Trochanteric bursitis, right hip M70.61 [facility] [address], [place] [address] Oct, [facility] [address], [place] [address] Oct, [facility] [address], [place] [address] Oct, Trochanteric bursitis of both hips M70.61 and Right sided sciatica M54.31 [place] [id number] [place] [address] 20 Oct, 2015 Trochanteric bursitis of both hips M70.61 [place] [id number] [place] [address] 14 Oct, 2015 RUQ abdominal pain R10.11 [place] [address] [address] 13 Oct, 2015 Sciatic leg pain M54.30 [place] [id number] [place] [address] Oct, RUQ abdominal pain R10.11 [place] [id number] [place] [address] 07 Oct, 2015 RUQ abdominal pain R10.11 ; History of hepatitis C Z86.19 and Trigger point with back pain M54.9 [place] [id number] [place] [address] Sep, [place] [id number] [place] [address] 09 Sep, 2015 Right sided sciatica M54.31 [place] [id number] [place] [address] 06 Sep, 2015 Hypothyroidism, unspecified hypothyroidism type E03.9 and Vitamin D deficiency E55.9 [place] [id number] [place] [address] 03 Sep, 2015 Plantar fasciitis M72.2 and Porokeratosis Q82.8 [place] [address] [address] Sep, Hypothyroidism, unspecified hypothyroidism type E03.9 ; Chronic pain syndrome G89.4 ; Polyneuropathy associated with underlying disease G63 and Vitamin D deficiency E55.9 [place] [id number] [place] [address] August, [facility] [address] [place] [address] Jul, Plantar fasciitis M72.2 [facility] [id number] [place] [address] Jul, Trochanteric bursitis, right hip M70.61 [place] [id number] [place] [address] Jul, Hypothyroidism, unspecified hypothyroidism type E03.9 [place] [id number] [place] [address] Jul, Hypothyroidism, unspecified hypothyroidism type E03.9 ; Chronic pain syndrome G89.4 and Polyneuropathy associated with underlying disease G63 [place] [id number] [place] [address] Jun, Trochanteric bursitis of both hips M70.61 [place] [address] [place] [address] 08 Jun, 2015 Vitamin D deficiency E55.9 ; Osteoporosis M81.0 ; Low back pain M54.5 and Plantar fasciitis M72.2 [place] [id number] [place] [address] May, Vitamin D deficiency E55.9 and Hypothyroidism, unspecified hypothyroidism type E03.9 [place] [id number] [place] [address] May, Acute maxillary sinusitis J01.00 [place] [id number] [place] [address] May, Osteoporosis M81.0 and Hypothyroidism, unspecified hypothyroidism type E03.9 [place] [address] [place] [address] May, Osteoporosis M81.0 [place] [id number] [place] [address] 15 May, 2015 [place] [address] [place] [address] Apr, [place] [id number] [place] [address] Apr, Trochanteric bursitis of both hips M70.61 [place] [id number] [place] [address] Apr, Hypothyroidism, unspecified hypothyroidism type E03.9 [place] [address] [place] [address] Apr, Chronic pain syndrome G89.4 ; Bilateral low back pain with sciatica, sciatica laterality unspecified M54.40 ; Pain in right hip M25.551 ; Pain in left hip M25.552 ; Chronic prescription opiate use Z79.899 ; Primary insomnia F51.01 and Hypothyroidism, unspecified hypothyroidism type E03.9 [place] [id number] [place] [address] Mar, [place] [id number] [place] [address] Feb, [place] [id number] [place] [address] 16 Feb, 2015 Chronic pain syndrome G89.4 and Major depression F32.9 [place] [id number] [place] [address] 16 Feb, 2015 Fatigue R53.83 [place] [id number] [place] [address] 13 Feb, 2015 History of fracture Z87.81 [place] [address] [address] 12 Feb, 2015 Major depression, recurrent F33.9 and Generalized anxiety disorder F41.1 [place] [id number] [place] [address] Feb, [facility] [address], [place] [address] Jan, Hypothyroidism, unspecified hypothyroidism type E03.9 [place] [address] [place] [address] Jan, Abdominal pain R10.9 and Hypothyroidism, unspecified hypothyroidism type E03.9 [place] [id number] [place] [address] Jan, Abdominal pain R10.9 [place] [id number] [place] [address] Jan, Hypothyroidism, unspecified hypothyroidism type E03.9 [place] [id number] [place] [address] Jan, [place] [id number] [place] [address] Jan, 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) w/o 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 Z01.419 and Hypothyroidism, unspecified hypothyroidism type E03.9 [place] [id number] [place] [address] Jan, 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9 ; Allergic rhinitis, unspecified allergic rhinitis type J30.9 ; Chronic pain syndrome G89.4 ; Hypothyroidism, unspecified hypothyroidism type E03.9 ; Chest pain, unspecified chest pain type R07.9 and Plantar fasciitis M72.2 [facility] [id number] [place] [address] Jan, Trochanteric bursitis of both hips M70.61 [facility] [id number] [place] [address] Dec, [facility] [id number] [place] [address] Nov, [facility] [id number] [place] [address] Nov, [facility] [id number] [place] [address] Nov, Constipation 564.00 [facility] [id number] [place] [address] Oct, Chronic pain 338.29 and Hypothyroidism 244.9 [facility] [id number] [place] [address] Oct, [facility] [id number] [place] [address] Sep, [facility] [id number] [place] [id number] Sep, [facility] [id number] [place] [id number] Sep, [facility] [id number] [place] [id number] Sep, [facility] [id number] [place] [id number] Sep, [facility] [id number] [place] [id number] Sep, [facility] [address] [address] [address] Sep, COPD exacerbation 491.21 ; Chronic pain 338.29 ; Hypothyroidism 244.9 and Pancytopenia 284.19 [facility] [address] [address] August, [facility] [address] [address] Jul, [facility] [id number] [place] [id number] Jul, [facility] [id number] [place], [place] [address] Jun, [facility] [id number] [place] [address] Jun, [facility] [id number] [place] [address] Jun, [facility] [id number] [place] [address] Jun, [facility] [id number] [place] [address] Jun, [facility] [id number] [address] May, [facility] [address] [address] May, [facility] [address] [address] May, [facility] [address] [address] May, [facility] [id number] [address] May, [facility] [address] [address] May, [facility] [place] [facility] [address] [id number] [place] [address] May, 2014 [facility] [place] [facility] [address] [id number] [place] [address] May, 2014 [facility] [place] [facility] [address] [id number] [place] [address] May, 2014 [facility] [place] [facility] [address] [id number] [place] [address] May, 2014 [facility] [place] [facility] [address] [id number] [place] [address] May, 2014 [facility] [place] [facility] [address] [id number] [place] [address] May, [facility] [place] [facility] [address] [id number] [place] [address] May, [facility] [place] [facility] [address] [id number] [place] [address] Apr, [facility] [place] [facility] [address] [id number] [place] [address] Apr, [facility] [place] [facility] [address] [id number] [place] [address] Apr, [facility] [place] [facility] [address] [id number] [place] [address] Apr, [facility] [place] [facility] [address] [id number] [place] [address] Apr, [facility] [place] [facility] [address] [id number] [place] [address] Apr, [facility] [place] [facility] [address] [id number] [place] [address] Apr, [facility] [place] [facility] [address] [id number] [place] [address] Mar, [facility] [place] [facility] [address] [id number] [place] [address] Mar, [facility] [place] [facility] [address] [id number] [place] [address] Mar, [facility] [place] [facility] [address] [id number] [place] [address] Mar, [facility] [place] [facility] [address] [id number] [place] [address] Mar, [facility] [place] [facility] [address] [id number] [place] [address] Mar, [facility] [place] [facility] [address] [id number] [place] [address] Feb, [facility] [place] [facility] [address] [id number] [place] [address] Feb, [facility] [place] [facility] [address] [id number] [place] [address] Feb, [facility] [place] [facility] [address] [id number] [place] [address] Feb, [facility] [place] [facility] [address] [id number] [place] [address] Feb, [facility] [place] [facility] [address] [facility] [id number] [place] [address] Feb, [facility] [place] [facility] [address] [id number] [place] [address] Jan, [facility] [place] [facility] [address] [id number], [place] [address] Jan, [facility] [place] [facility] [address] [id number] [place] [address] Jan, [facility] [place] [facility] [address] [id number] [place] [address] Jan, [facility] [place] [facility] [address] [facility] [id number], [place] [address] Jan, [facility] [place] [facility] [address] [id number] [place] [address] Jan, [facility] [place] [facility] [address] [id number] [place] [address] Jan, [facility] [place] [facility] [address] [id number] [place] [address] Jan, [facility] [place] [facility] [address] [id number] [place] [address] Dec, [facility] [place] [facility] [address] [id number] [place] [address] Dec, [facility] [place] [facility] [address] [id number] [place] [address] Dec, [facility] [place] [facility] [address] [id number] [place] [address] Dec, [facility] [place] [facility] [address] [id number] [place] [address] Dec, [facility] [place] [facility] [address] [id number] [place] [address] Dec, [facility] [place] [facility] [address] [id number] [place] [address] Dec, [facility] [place] [facility] [address] [id number] [place] [address] Nov, [facility] [place] [facility] [address] [id number] [place] [address] Nov, [facility] [place] [facility] [address] [id number] [place] [address] Oct, [facility] [place] [facility] [address] [id number] [place] [address] Oct, [facility] [place] [facility] [address] [id number] [place] [address] Oct, [facility] [place] [facility] [address] [id number] [place] [address] Oct, [facility] [place] [facility] [address] [id number] [place] [address] Sep, [facility] [place] [facility] [address] [id number] [place] [address] Sep, [facility] [place] [facility] [address] [id number] [place] [address] Sep, [facility] [place] [facility] [address] [id number] [place] [address] Sep, [facility] [place] [facility] [address] [id number] [place] [address] Sep, [facility] [place] [facility] [address] [id number] [place] [address] Sep, [facility] [place] [facility] [address] [id number] [place] [address] Sep, [facility] [place] [facility] [address] [id number] [place] [address] Sep, [facility] [place] [facility] [address] [id number] [place] [address] August, [facility] [place] [facility] [address] [id number] [place] [address] August, [facility] [place] [facility] [address] [id number] [place] [address] August, [facility] [place] [facility] [address] [id number] [place] [address] August, [facility] [place] [facility] [address] [id number] [place] [address] Jul, [facility] [place] [facility] [address] [id number] [place] [address] Jul, [facility] [place] [facility] [address] [id number] [place] [address] Jul, [facility] [place] [facility] [address] [id number] [place] [address] 24 Jul, 2013 [facility] [address] [id number] [place] [address] 17 Jul, 2013 [facility] [place] [facility] [address] [id number] [place] [address] 16 Jul, 2013 [facility] [address] [id number] [place] [address] 15 Jul, 2013 [facility] [place] [facility] [address] [id number] [place] [address] 15 Jul, 2013 [facility] [place] [facility] [address] [id number] [place] [address] 18 Jun, 2013 [facility] [place] [facility] [address] [id number] [place] [address] 18 Jun, 2013 [facility] [place] [facility] [address] [id number] [place] [address] Jun, [facility] [place] [facility] [address] [id number] [place] [address] Jun, [facility] [place] [facility] [address] [id number] [place] [address] Jun, [facility] [place] [facility] [address] [id number] [place] [address] Jun, [facility] [place] [facility] [address] [id number] [place] [address] Jun, [facility] [place] [facility] [address] [id number] [place] [address] Jun, [facility] [place] [facility] [address] [id number] [place] [address] May, [facility] [place] [facility] [address] [id number] [place] [address] May, [facility] [place] [facility] [address] [id number] [place] [address] Apr, [facility] [address] [id number] [place] [address] Apr, [facility] [place] [facility] [address] [id number] [place] [address] Mar, [facility] [place] [facility] [address] [id number] [place] [address] Mar, [facility] [place] [facility] [address] [id number] [place] [address] Mar, [facility] [place] [facility] [address] [id number] [place] [address] Mar, [facility] [place] [facility] [address] [id number] [place] [address] Mar, [facility] [place] [facility] [address] [id number] [place] [address] Mar, [facility] [place] [facility] [address] [id number] [place] [address] Mar, [facility] [place] [facility] [address] [id number] [place] [address] Feb, [facility] [place] [facility] [address] [id number], [place] [address] Feb, [facility] [place] [facility] [address] [id number], [place] [address] Feb, [facility] [place] [facility] [address] [id number], [place] [address] Feb, [facility] [place] [facility] [address] [id number] [place] [address] Feb, [facility] [place] [facility] [address] [id number], [place] [address] Feb, [facility] [place] [facility] [address] [id number], [place] [address] 26 Dec, 2012 [facility] [place] [facility] [address] [id number], [place] [address] 18 Dec, 2012 [facility] [address] [id number] [place] [address] Dec, [facility] [address] [id number] [place] [address] Dec, [facility] [address] [id number] [place] [address] Dec, [facility] [address] [id number] [place] [address] Nov, [facility] [address] [id number] [place] [address] Nov, [facility] [address] [id number] [place] [address] Oct, [facility] [address] [id number] [place] [address] August, [facility] [address] [id number] [place] [address] August, [facility] [address] [id number] [place] [address] August, [facility] [address] [id number] [place] [address] Jul, [facility] [address] [id number] [place] [address] Jul, [facility] [address] [id number] [place] [address] Jul, [facility] [address] [id number] [place] [address] Jun, [facility] [place] [facility] [address] [id number] [place] [address] Jun, [facility] [address] [id number] [place] [address] Jun, [facility] [place] [facility] [address] [id number] [place] [address] 20 Jun, 2012 [facility] [place] [facility] [address] [id number] [place] [address] 18 Jun, 2012 [facility] [place] [facility] [address] [id number] [place] [address] 15 Jun, 2012 [facility] [place] [facility] [address] [id number] [place] [address] 12 Jun, 2012 [facility] [place] [facility] [address] [id number] [place] [address] 18 May, 2012 [facility] [place] [facility] [address] [id number] [place] [address] May, [facility] [place] [facility] [address] [id number] [place] [address] 06 May, 2012 [facility] [place] [facility] [address] [id number] [place] [address] 05 May, 2012 [facility] [place] [facility] [address] [id number] [place] [address] Apr, [facility] [place] [facility] [address] [id number] [place] [address] Apr, [facility] [place] [facility] [address] [id number] [place] [address] Apr, [facility] [place] [facility] [address] [id number] [place] [address] Mar, [facility] [place] [facility] [address] [id number] [place] [address] Mar, [facility] [place] [facility] [address] [id number] [place] [address] Mar, [facility] [place] [facility] [address] [id number] [place] [address] Mar, [facility] [place] [facility] [address] [id number] [place] [address] Mar, [facility] [place] [facility] [address] [id number] [place] [address] Mar, [facility] [place] [facility] [address] [id number] [place] [address] Mar, [facility] [place] [facility] [address] [id number] [place] [address] Mar, [facility] [place] [facility] [address] [id number] [place] [address] Feb, [facility] [place] [facility] [address] [id number] [place] [address] Feb, [facility] [place] [facility] [address] [id number] [place] [address] Feb, [facility] [place] [facility] [address] [id number] [place] [address] Jan, [facility] [place] [facility] [address] [id number] [place] [address] Jan, [facility] [place] [facility] [address] [id number] [place] [address] Jan, [facility] [place] [facility] [address] [id number] [place] [address] Jan, [facility] [place] [facility] [address] [id number], [place] [address] Jan, [facility] [place] [facility] [address] [id number], [place] [address] Jan, [facility] [place] [facility] [address] [id number] [place] [address] Jan, [facility] [place] [facility] [address] [id number], [place] [address] Dec, [facility] [place] [facility] [address] [id number] [place] [address] 24 Dec, 2011 [facility] [place] [facility] [address] [id number] [place] [address] 10 Dec, 2011 [facility] [address] [id number] [place] [address] Nov, [facility] [place] [facility] [address] [id number] [place] [address] Nov, [facility] [address] [id number] [place] [address] Nov, [facility] [place] [facility] [address] [id number] [place] [address] Nov, [facility] [address] [id number] [place] [address] Oct, [facility] [place] [facility] [address] [id number] [place] [address] Oct, [facility] [place] [facility] [address] [id number] [place] [address] Oct, [facility] [address] [id number] [place] [address] Sep, [facility] [place] [facility] [address] [id number] [place] [address] Sep, [facility] [address] [id number] [place] [address] Sep, [facility] [place] [facility] [address] [id number] [place] [address] Sep, [facility] [place] [facility] [address] [id number] [place] [address] Sep, [facility] [place] [facility] [address] [id number] [place] [address] Sep, [facility] [place] [facility] [address] [id number] [place] [address] August, [facility] [place] [facility] [address] [id number] [place] [address] Jul, [facility] [place] [facility] [address] [id number] [place] [address] 18 Jul, 2011 [facility] [place] [facility] [address] [id number] [place] [address] Jul, [facility] [place] [facility] [address] [id number] [place] [address] Jul, [facility] [place] [facility] [address] [id number] [place] [address] Jul, [facility] [place] [facility] [address] [id number] [place] [address] 29 Jun, 2011 [facility] [place] [facility] [address] [id number] [place] [address] 27 Jun, 2011 [facility] [place] [facility] [address] [id number] [place] [address] Jun, [facility] [place] [facility] [address] [id number] [place] [address] Jun, [facility] [place] [facility] [address] [id number] [place] [address] Jun, [facility] [place] [facility] [address] [id number] [place] [address] May, [facility] [place] [facility] [address] [id number] [place] [address] May, [facility] [place] [facility] [address] [id number] [place] [address] May, [facility] [place] [facility] [address] [id number] [place] [address] May, [facility] [place] [facility] [address] [id number] [place] [address] May, [facility] [place] [facility] [address] [id number] [place] [address] May, [facility] [place] [facility] [address] [id number] [place] [address] 02 May, 2011 [facility] [address] [id number] [place] [address] 10 Apr, 2011 [facility] [place] [facility] [address] [id number] [place] [address] 29 Mar, 2011 [facility] [address] [id number] [place] [address] Mar, [facility] [place] [facility] [address] [id number] [place] [address] Mar, [facility] [address] [id number] [place] [address] Mar, [facility] [place] [facility] [address] [id number] [place] [address] Mar, [facility] [place] [facility] [address] [id number] [place] [address] 23 Feb, 2011 [facility] [address] [id number] [place] [address] 14 Feb, 2011 [facility] [place] [facility] [address] [id number] [place] [address] 14 Feb, 2011 [facility] [address] [id number] [place] [address] 14 Feb, 2011 [facility] [place] [facility] [address] [id number] [place] [address] Feb, [facility] [place] [facility] [address] [id number] [place] [address] Feb, [facility] [place] [facility] [address] [id number] [place] [address] 04 Feb, 2011 [facility] [place] [facility] [address] [id number] [place] [address] 10 Jan, 2011 [facility] [place] [facility] [address] [id number] [place] [address] Dec, [facility] [address] [id number] [place] [address] 11 Oct, 2010 [facility] [place] [facility] [address] [id number] [place] [address] Jun, [facility] [place] [facility] [address] [id number] [place] [address] Mar, [facility] [place] [facility] [address] [id number] [place] [address] Mar, [facility] [address] [id number] [place] [address] 16 Mar, 2010 [facility] [place] [facility] [address] [id number] [place] [address] 16 Mar, 2010 [facility] [place] [facility] [address] [id number] [place] [address] 15 Mar, 2010 [facility] [place] [facility] [address] [id number] [place] [address] Mar, [facility] [place] [facility] [address] [id number] [place] [address] Mar, [facility] [place] [facility] [address] [id number] [place] [address] 05 Mar, 2010 [facility] [place] [facility] [address] [id number], [place] [address] Mar, [facility] [place] [facility] [address] [id number], [place] [address] Mar, [facility] [place] [facility] [address] [id number] [place] [address] Jan, [facility] [place] [facility] [address] [id number] [place] [address] Jan, [facility] [place] [facility] [address] [id number], [place] [address] Jan, [facility] [place] [facility] [address] [id number], [place] [address] Nov, [facility] [id number] [place] [address] Oct, [facility] [id number] [place] [address] Mar, [facility] [id number] [place] [address] Mar, [facility] [id number] [place] [address] Mar, [facility] [id number] [place] [address] Mar, [facility] [id number] [place] [address] Dec, [facility] [id number] [place] [address] August, [facility] [id number] [place] [address] August, [facility] [id number] [place] [address] Jul, [facility] [id number] [place] [address] Jan, [facility] [id number] [address] Jan, IMMUNIZATIONS No Known Immunizations SOCIAL HISTORY Never Assessed REASON FOR VISIT Controlled Med Refill- due 01/21 PLAN OF CARE VITAL SIGNS MEDICATIONS Medication Instructions Dosage Frequency Start Date End Date Duration Status Hydrocodone-Acetaminophen 10-325 MG Orally 2 times a day 1 tablet as needed 12h 05 Jan, 2018 28 days Active RESULTS No Results PROCEDURES [...]
--- OUTSIDE RECORDS SUMMARY | 2018-09-22 02:46 | XMS REPORT ---
Author Author NOLAN ALMENDAREZ [facility] Address [address] [place] [address] Care Team Providers Care Master Plumber Name Role Phone NOLAN ALMENDAREZ Unavailable PROBLEMS Type Condition ICD9-CM Code [id number] Code Onset Dates Condition Status SNOMED Code Problem Chronic gastritis without bleeding, unspecified gastritis type K29.50 Active 4402864 Problem Vitamin D deficiency E55.9 Active 11804061 Problem Osteoporosis M81.0 Active 28660945 Problem Unspecified abdominal pain R10.9 Active 468815175 Problem Fibromyalgia M79.7 Active 73897736 Problem Chronic pain syndrome G89.4 Active 876661553 Problem Trigger point with back pain M54.9 Active 235442573 Problem Chronic tension-type headache, not intractable G44.229 Active 866466568 Problem RUQ abdominal pain R10.11 Active 203768315 Problem Pancytopenia D61.818 Active 860069769 Problem Right sided sciatica M54.31 Active 60655139 Problem Chronic prescription opiate use Z79.891 Active 878512667 Problem Drug induced constipation K59.03 Active 540266935822524 Problem Leukopenia, unspecified type D72.819 Active 11245206 Problem Atrial fibrillation, unspecified type I48.91 Active 18326321 Problem Allergic rhinitis, unspecified allergic rhinitis type J30.9 Active 23665492 Problem Chronic obstructive pulmonary disease, unspecified COPD type J44.9 Active 37467095 Problem Hypothyroidism, unspecified hypothyroidism type E03.9 Active 47196783 Problem Other constipation K59.09 Active 415784037 Problem Porokeratosis Q82.8 Active 503930505 Problem 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 Active 588122267 Problem Allergy to intravenous contrast Z91.041 Active 253796016 Problem Vaginal atrophy N95.2 Active 910322748 Problem Major depression, recurrent F33.9 Active 74595862 Problem History of hepatitis C Z86.19 Active 11003640125862 Problem Hot flashes N95.1 Active 210689937 Problem Plantar fasciitis M72.2 Active 658311630 Problem Polyneuropathy associated with underlying disease G63 Active 224626827 Problem Primary insomnia F51.01 Active 3690913 Problem Low back pain M54.5 Active 435361618 ALLERGIES No Information ENCOUNTERS Encounter Location Date Diagnosis [place] [id number] [place] [address] Jan, [place] [address] [address] Dec, Chronic pain syndrome G89.4 [place] [id number] [place] [address] Nov, Onychocryptosis L60.0 [facility] [place] [id number] [place] [address] Nov, Chronic pain syndrome G89.4 [facility] [place] [id number] [place] [address] Nov, Trochanteric bursitis of both hips M70.61 [facility] [id number] [place] [address] Oct, Hypothyroidism, unspecified hypothyroidism type E03.9 and Atrial fibrillation, unspecified type I48.91 [place] [place] [id number] [place] [address] Oct, Fibromyalgia M79.7 ; Chronic pain syndrome G89.4 ; Hypothyroidism, unspecified hypothyroidism type E03.9 ; Overweight (BMI 25.0-29.9) E66.3 and Atrial fibrillation, unspecified type I48.91 [facility] [place] [id number] [place] [address] Oct, Chronic pain syndrome G89.4 [facility] [id number] [place] [address] Sep, Chronic pain syndrome G89.4 [facility] [id number] [place] [address] August, Somatic dysfunction of lumbar region M99.03 and Somatic dysfunction of pelvis region M99.05 [place] [id number] [place] [address] August, Chronic pain syndrome G89.4 [place] [id number] [place] [address] Jul, Trochanteric bursitis of left hip M70.62 and Trochanteric bursitis, right hip M70.61 [place] [id number] [place] [address] Jul, [place] [id number] [place] [address] Jul, Chronic pain syndrome G89.4 [place] [id number] [place] [address] Jul, Hypothyroidism, unspecified hypothyroidism type E03.9 [place] [id number] [place] [address] Jul, Hypothyroidism, unspecified hypothyroidism type E03.9 [place] [id number] [place] [address] Jul, Chronic tension-type headache, not intractable G44.229 ; Atrial fibrillation, unspecified type I48.91 ; Chronic pain syndrome G89.4 ; Hypothyroidism, unspecified hypothyroidism type E03.9 ; Pancytopenia D61.818 ; History of hepatitis C Z86.19 ; Vaginal atrophy N95.2 ; RUQ abdominal pain R10.11 ; Chronic prescription opiate use Z79.891 ; Osteoporosis M81.0 and Screening for breast cancer Z12.31 [place] [id number] [place] [address] Jun, [place] [id number] [place] [address] May, [place] [id number] [place] [address] May, [facility] [address] [address] May, [facility] [address] [address] Apr, [facility] [address] [address] Apr, Hypothyroidism, unspecified hypothyroidism type E03.9 [facility] [id number] [place] [address] Apr, Hypothyroidism, unspecified hypothyroidism type E03.9 and Leukopenia, unspecified type D72.819 [place] [address] [address] Mar, [place] [id number] [place] [address] Mar, Leukopenia, unspecified type D72.819 [facility] [address] [place] [address] Mar, Hypothyroidism, unspecified hypothyroidism type E03.9 and Low hemoglobin D64.9 [place] [address] [address] Mar, Hypothyroidism, unspecified hypothyroidism type E03.9 [place] [address] [address] Mar, Osteoporosis M81.0 ; Low hemoglobin D64.9 and Hypothyroidism, unspecified hypothyroidism type E03.9 [facility] [address] [place] [address] Mar, Hypothyroidism, unspecified hypothyroidism type E03.9 ; Bilirubin in urine R82.2 and Pancytopenia D61.818 [facility] [address] [address] Feb, [facility] [id number] [place] [address] 18 Feb, 2017 Cough R05 and Bronchitis J40 [facility] [address] [address] 14 Feb, 2017 Other viral agents as the cause of diseases classified elsewhere B97.89 and Acute upper respiratory infection, unspecified J06.9 [place] [address] [address] Feb, Fibromyalgia M79.7 ; Chronic pain syndrome G89.4 ; Hypothyroidism, unspecified hypothyroidism type E03.9 ; Primary insomnia F51.01 ; Osteoporosis M81.0 ; Vision abnormalities H53.9 ; Pancytopenia D61.818 ; BMI 28.0-28.9,adult Z68.28 and Encounter for immunization Z23 [place] [address] [address] Feb, Neuroma D36.10 and Capsulitis of right foot M77.51 [facility] [id number] [place] [address] Feb, [place] [address] [address] Feb, Hypothyroidism, unspecified hypothyroidism type E03.9 [facility] [address] [address] Jan, [place] [address] [address] Jan, Atrial fibrillation, unspecified type I48.91 [facility] [address] [address] Jan, [place] [address] [address] Jan, Fibromyalgia M79.7 ; Atrial fibrillation, unspecified type I48.91 ; Pain of left hand M79.642 ; Pain in right hand M79.641 ; Chronic prescription opiate use Z79.891 ; Chronic pain syndrome G89.4 ; Elevated fasting glucose R73.01 and Hypothyroidism, unspecified hypothyroidism type E03.9 [place] [address] [address] Jan, [facility] [address] [address] Dec, Trochanteric bursitis of both hips M70.61 [place] [address] [address] Dec, [place] [address] [address] Dec, [place] [address] [address] Nov, [place] [address] [address] Nov, Unilateral headache R51 [facility] [address] [address] Nov, [facility] [id number] [place] [address] Oct, Unilateral headache R51 ; 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 and Allergy to intravenous contrast Z91.041 [place] [id number] [place] [address] Oct, [facility] [id number] [place] [address] Oct, [facility] [id number] [place] [address] Sep, Hypothyroidism, unspecified hypothyroidism type E03.9 [facility] [id number] [place] [address] Sep, Hypothyroidism, unspecified hypothyroidism type E03.9 and Bilirubin in urine R82.2 [place] [address] [address] Sep, Trochanteric bursitis of both hips M70.61 [facility] [id number] [place] [address] Sep, Hypothyroidism, unspecified hypothyroidism type E03.9 ; Dysuria R30.0 ; Chronic tension-type headache, not intractable G44.229 and Drug induced constipation K59.03 [facility] [address] [address] Sep, [facility] [address] [address] Sep, [facility] [address] [address] August, [facility] [address] [address] Jul, [facility] [address] [address] Jul, Trochanteric bursitis of right hip M70.61 [facility] [address] [address] Jul, Hypothyroidism, unspecified hypothyroidism type E03.9 [facility] [address] [address] Jul, Fibromyalgia M79.7 ; Chronic pain syndrome G89.4 ; Hypothyroidism, unspecified hypothyroidism type E03.9 and Other constipation K59.09 [facility] [id number] [place] [address] Jun, Swollen tonsil J35.1 and Strep throat J02.0 [facility] [address] [address] Jun, [facility] [address] [address] Jun, Acute maxillary sinusitis J01.00 [facility] [address] [place] [address] Jun, Hypothyroidism, unspecified hypothyroidism type E03.9 [facility] [address] [address] Jun, Chronic pain syndrome G89.4 ; Fibromyalgia M79.7 ; Hypothyroidism, unspecified hypothyroidism type E03.9 and Chronic prescription opiate use Z79.891 [place] [address] [address] May, [facility] [address] [address] Apr, Hypothyroidism, unspecified hypothyroidism type E03.9 [facility] [address] [address] Apr, [facility] [id number] [place] [address] Apr, Lipid screening Z13.220 and Hypothyroidism, unspecified hypothyroidism type E03.9 [place] [id number] [place] [address] Apr, [facility] [id number] [place] [address] Mar, Trochanteric bursitis of both hips M70.61 [place] [id number] [place] [address] Mar, [facility] [id number] [place] [address] Mar, Plantar fasciitis M72.2 and Porokeratosis Q82.8 [facility] [address] [address] Feb, Lipid screening Z13.220 ; Vitamin D deficiency E55.9 and Hypothyroidism, unspecified hypothyroidism type E03.9 [facility] [id number] [place] [address] 16 Nov, 2016 Chronic pain syndrome G89.4 ; Hypothyroidism, unspecified hypothyroidism type E03.9 ; Pancytopenia D61.818 ; Vaginal atrophy N95.2 ; Chronic gastritis without bleeding, unspecified gastritis type K29.50 ; Vitamin D deficiency E55.9 ; Chronic prescription opiate use Z79.891 ; Adverse effect of other opioids, initial encounter T40.2X5A ; Drug induced constipation K59.03 ; Lipid screening Z13.220 and Encounter for immunization Z23 [facility] [address] [address] Feb, [place] [address] [address] Feb, Ingrown toenail L60.0 [place] [address] [address] Jan, [place] [address] [address] Jan, Trochanteric bursitis of both hips M70.61 [place] [address] [address] Jan, [place] [address] [address] Jan, [place] [address] [address] Jan, [place] [address] [address] Jan, Right sided sciatica M54.31 [place] [id number] [place] [address] Dec, Onychomycosis B35.1 [place] [address] [address] Dec, [place] [address] [address] Dec, [place] [address] [place] [address] Dec, [facility] [id number] [place] [address] Dec, Osteoarthritis of right hip, unspecified osteoarthritis type M16.11 and Bursitis of right hip M70.71 [facility] [address] [place] [address] Nov, [facility] [id number] [place] [address] Nov, [facility] [id number] [place] [address] Nov, [facility] [id number] [place] [address] Nov, Hypothyroidism, unspecified hypothyroidism type E03.9 ; Vitamin D deficiency E55.9 and History of hepatitis C Z86.19 [place] [id number] [place] [address] Nov, Right upper quadrant pain R10.11 ; History of hepatitis C Z86.19 and Low back pain M54.5 [place] [address] [place] [address] Oct, Trochanteric bursitis, right hip M70.61 [place] [address] [place] [address] Oct, [facility] [id number] [place] [address] Oct, [facility] [address] [place] [address] Oct, Trochanteric bursitis of both hips M70.61 and Right sided sciatica M54.31 [facility] [address] [place] [address] Oct, Trochanteric bursitis of both hips M70.61 [facility] [id number] [place] [address] 14 Oct, 2015 RUQ abdominal pain R10.11 [place] [address] [address] 13 Oct, 2015 Sciatic leg pain M54.30 [place] [id number] [place] [address] 11 Oct, 2015 RUQ abdominal pain R10.11 [place] [address] [address] 07 Oct, 2015 RUQ abdominal pain R10.11 ; History of hepatitis C Z86.19 and Trigger point with back pain M54.9 [place] [address] [address] Sep, [place] [id number] [place] [address] Sep, Right sided sciatica M54.31 [place] [id number] [place] [address] Sep, Hypothyroidism, unspecified hypothyroidism type E03.9 and Vitamin D deficiency E55.9 [place] [id number] [place] [address] Sep, Plantar fasciitis M72.2 and Porokeratosis Q82.8 [place] [id number] [place] [address] Sep, Hypothyroidism, unspecified hypothyroidism type E03.9 ; Chronic pain syndrome G89.4 ; Polyneuropathy associated with underlying disease G63 and Vitamin D deficiency E55.9 [place] [address] [address] August, [place] [id number] [place] [address] Jul, Plantar fasciitis M72.2 [place] [address] [address] Jul, Trochanteric bursitis, right hip M70.61 [place] [id number] [place] [address] Jul, Hypothyroidism, unspecified hypothyroidism type E03.9 [place] [id number] [place] [address] Jul, Hypothyroidism, unspecified hypothyroidism type E03.9 ; Chronic pain syndrome G89.4 and Polyneuropathy associated with underlying disease G63 [place] [address] [place] [address] 10 Jun, 2015 Trochanteric bursitis of both hips M70.61 [place] [address] [place] [address] 08 Jun, 2015 Vitamin D deficiency E55.9 ; Osteoporosis M81.0 ; Low back pain M54.5 and Plantar fasciitis M72.2 [place] [id number] [place] [address] 26 May, 2015 Vitamin D deficiency E55.9 and Hypothyroidism, unspecified hypothyroidism type E03.9 [place] [id number] [place] [address] 23 May, 2015 Acute maxillary sinusitis J01.00 [place] [id number] [place] [address] 18 May, 2015 Osteoporosis M81.0 and Hypothyroidism, unspecified hypothyroidism type E03.9 [place] [id number] [place] [address] 16 May, 2015 Osteoporosis M81.0 [place] [address] [address] 15 May, 2015 [place] [id number] [place] [address] Apr, [place] [id number] [place] [address] Apr, Trochanteric bursitis of both hips M70.61 [place] [address] [place] [address] Apr, Hypothyroidism, unspecified hypothyroidism type E03.9 [facility] [address] [place] [address] Apr, Chronic pain syndrome G89.4 ; Bilateral low back pain with sciatica, sciatica laterality unspecified M54.40 ; Pain in right hip M25.551 ; Pain in left hip M25.552 ; Chronic prescription opiate use Z79.899 ; Primary insomnia F51.01 and Hypothyroidism, unspecified hypothyroidism type E03.9 [place] [address] [address] Mar, [place] [address] [address] Feb, [place] [address] [address] Feb, Chronic pain syndrome G89.4 and Major depression F32.9 [place] [address] [address] Feb, Fatigue R53.83 [place] [address] [address] 13 Feb, 2015 History of fracture Z87.81 [place] [address] [address] Feb, Major depression, recurrent F33.9 and Generalized anxiety disorder F41.1 [place] [address] [address] Feb, [place] [address] [address] Jan, Hypothyroidism, unspecified hypothyroidism type E03.9 [place] [address] [address] Jan, Abdominal pain R10.9 and Hypothyroidism, unspecified hypothyroidism type E03.9 [place] [address] [place] [address] Jan, Abdominal pain R10.9 [place] [id number] [place] [address] Jan, Hypothyroidism, unspecified hypothyroidism type E03.9 [place] [id number] [place] [address] Jan, [place] [id number] [place] [address] Jan, 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 and Hypothyroidism, unspecified hypothyroidism type E03.9 [place] [id number] [place] [address] Jan, 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 ; Abdominal pain R10.9 ; Dyspareunia N94.1 ; Encounter for immunization Z23 ; History of fracture Z87.81 ; Fatigue R53.83 ; Throat fullness R68.89 ; Bruises easily R23.8 ; Hot flashes N95.1 ; Depression F32.9 and Vaginal atrophy N95.2 [place] [id number] [place] [address] Jan, Hypothyroidism, unspecified hypothyroidism type E03.9 [place] [id number] [place] [address] Jan, Unspecified abdominal pain R10.9 ; Chronic obstructive pulmonary disease, unspecified COPD type J44.9 ; Allergic rhinitis, unspecified allergic rhinitis type J30.9 ; Chronic pain syndrome G89.4 ; Hypothyroidism, unspecified hypothyroidism type E03.9 ; Chest pain, unspecified chest pain type R07.9 and Plantar fasciitis M72.2 [place] [id number] [place] [address] Jan, Trochanteric bursitis of both hips M70.61 [facility] [id number] [place] [address] Dec, [facility] [id number] [place] [address] Nov, [facility] [id number] [place] [address] Nov, [facility] [address] [address] Nov, Constipation 564.00 [facility] [address] [address] Oct, Chronic pain 338.29 and Hypothyroidism 244.9 [facility] [id number] [place] [address] Oct, [facility] [id number] [place] [address] Sep, [facility] [id number] [place] [address] Sep, [facility] [address] [address] Sep, [facility] [id number] [place] [address] Sep, [facility] [id number] [place] [address] Sep, [facility] [id number] [place] [address] Sep, [facility] [address] [address] Sep, COPD exacerbation 491.21 ; Chronic pain 338.29 ; Hypothyroidism 244.9 and Pancytopenia 284.19 [facility] [id number] [place] [address] August, [facility] [place] [facility] [address] [id number] [place] [address] Jul, [facility] [place] [facility] [address] [id number] [place] [address] Jul, [facility] [place] [facility] [address] [id number] [place] [address] Jun, [facility] [place] [facility] [address] [id number] [place] [address] Jun, [facility] [place] [facility] [address] [id number] [place] [address] Jun, [facility] [place] [facility] [address] [id number] [place] [address] Jun, [facility] [place] [facility] [address] [facility] [id number] [place] [address] Jun, [facility] [place] [facility] [address] [id number] [place] [address] May, [facility] [place] [facility] [address] [id number] [place] [address] May, [facility] [place] [facility] [address] [facility] [id number] [place] [address] May, [facility] [place] [facility] [address] [id number], [place] [address] May, [facility] [place] [facility] [address] [id number], [place] [address] May, [facility] [place] [facility] [address] [id number] [place] [address] May, [facility] [place] [facility] [address] [id number] [place] [address] May, [facility] [place] [facility] [address] [facility] [id number] [place] [address] May, [facility] [place] [facility] [address] [id number] [place] [address] 04 May, 2014 [facility] [place] [facility] [address] [id number] [place] [address] May, 2014 [facility] [place] [facility] [address] [id number] [place] [address] May, 2014 [facility] [place] [facility] [address] [id number] [place] [address] May, 2014 [facility] [place] [facility] [address] [id number] [place] [address] May, [facility] [place] [facility] [address] [id number] [place] [address] Apr, [facility] [place] [facility] [address] [facility] [id number] [place] [address] Apr, [facility] [place] [facility] [address] [id number] [place] [address] Apr, [facility] [place] [facility] [address] [id number] [place] [address] Apr, [facility] [place] [facility] [address] [facility] [id number] [place] [address] Apr, [facility] [place] [facility] [address] [facility] [id number] [place] [address] Apr, [facility] [place] [facility] [address] [id number] [place] [address] Apr, [facility] [place] [facility] [address] [id number] [place] [address] Mar, [facility] [place] [facility] [address] [id number] [place] [address] Mar, [facility] [place] [facility] [address] [facility] [id number] [place] [address] Mar, [facility] [place] [facility] [address] [id number] [place] [address] Mar, [facility] [place] [facility] [address] [id number] [place] [address] Mar, [facility] [place] [facility] [address] [id number] [place] [address] Mar, [facility] [place] [facility] [address] [id number] [place] [address] Feb, [facility] [place] [facility] [address] [id number] [place] [address] Feb, [facility] [place] [facility] [address] [id number] [place] [address] Feb, [facility] [place] [facility] [address] [id number] [place] [address] Feb, [facility] [place] [facility] [address] [id number] [place] [address] Feb, [facility] [place] [facility] [address] [id number], [place] [address] Feb, [facility] [place] [facility] [address] [id number], [place] [address] Jan, [facility] [place] [facility] [address] [id number], [place] [address] Jan, [facility] [place] [facility] [address] [id number], [place] [address] Jan, [facility] [place] [facility] [address] [id number], [place] [address] Jan, [facility] [place] [facility] [address] [id number], [place] [address] Jan, [facility] [place] [facility] [address] [id number], [place] [address] Jan, [facility] [place] [facility] [address] [id number], [place] [address] Jan, [facility] [place] [facility] [address] [id number] [place] [address] Jan, [facility] [place] [facility] [address] [id number] [place] [address] Dec, [facility] [place] [facility] [address] [id number] [place] [address] Dec, [facility] [place] [facility] [address] [id number] [place] [address] Dec, [facility] [place] [facility] [address] [id number] [place] [address] Dec, [facility] [place] [facility] [address] [id number] [place] [address] Dec, [facility] [place] [facility] [address] [id number] [place] [address] Dec, [facility] [place] [facility] [address] [id number] [place] [address] Dec, [facility] [place] [facility] [address] [id number] [place] [address] Nov, [facility] [place] [facility] [address] [id number] [place] [address] Nov, [facility] [place] [facility] [address] [id number] [place] [address] Oct, [facility] [place] [facility] [address] [id number] [place] [address] Oct, [facility] [place] [facility] [address] [id number] [place] [address] Oct, [facility] [place] [facility] [address] [id number] [place] [address] Oct, [facility] [place] [facility] [address] [id number] [place] [address] Sep, [facility] [place] [facility] [address] [id number] [place] [address] Sep, [facility] [place] [facility] [address] [id number] [place] [address] Sep, [facility] [place] [facility] [address] [id number] [place] [address] Sep, [facility] [place] [facility] [address] [id number] [place] [address] Sep, [facility] [place] [facility] [address] [id number] [place] [address] Sep, [facility] [place] [facility] [address] [id number] [place] [address] Sep, [facility] [place] [facility] [address] [id number] [place] [address] Sep, [facility] [place] [facility] [address] [id number] [place] [address] August, [facility] [place] [facility] [address] [id number] [place] [address] August, [facility] [place] [facility] [address] [id number] [place] [address] August, [facility] [place] [facility] [address] [id number] [place] [address] August, [facility] [place] [facility] [address] [id number] [place] [address] Jul, [facility] [place] [facility] [address] [id number] [place] [address] Jul, [facility] [place] [facility] [address] [id number] [place] [address] Jul, [facility] [place] [facility] [address] [id number] [place] [address] Jul, [facility] [place] [facility] [address] [id number] [place] [address] Jul, [facility] [place] [facility] [address] [id number] [place] [address] 16 Jul, 2013 [facility] [place] [facility] [address] [id number] [place] [address] 15 Jul, 2013 [facility] [place] [facility] [address] [id number] [place] [address] 15 Jul, 2013 [facility] [place] [facility] [address] [id number] [place] [address] 18 Jun, 2013 [facility] [place] [facility] [address] [id number] [place] [address] Jun, [facility] [place] [facility] [address] [id number] [place] [address] Jun, [facility] [place] [facility] [address] [id number] [place] [address] Jun, [facility] [place] [facility] [address] [facility] [id number] [place] [address] Jun, [facility] [place] [facility] [address] [id number] [place] [address] Jun, [facility] [place] [facility] [address] [id number] [place] [address] Jun, [facility] [place] [facility] [address] [id number] [place] [address] Jun, [facility] [place] [facility] [address] [id number] [place] [address] May, [facility] [place] [facility] [address] [id number] [place] [address] May, [facility] [place] [facility] [address] [id number] [place] [address] Apr, [facility] [place] [facility] [address] [id number] [place] [address] Apr, [facility] [place] [facility] [address] [id number] [place] [address] Mar, [facility] [place] [facility] [address] [id number] [place] [address] 24 Mar, 2013 [facility] [address] [id number] [place] [address] Mar, [facility] [place] [facility] [address] [id number] [place] [address] 18 Mar, 2013 [facility] [place] [facility] [address] [id number] [place] [address] Mar, [facility] [place] [facility] [address] [id number] [place] [address] Mar, [facility] [place] [facility] [address] [id number] [place] [address] Mar, [facility] [place] [facility] [address] [id number] [place] [address] Feb, [facility] [place] [facility] [address] [id number] [place] [address] Feb, [facility] [place] [facility] [address] [id number] [place] [address] Feb, [facility] [place] [facility] [address] [id number] [place] [address] Feb, [facility] [place] [facility] [address] [id number] [place] [address] Feb, [facility] [place] [facility] [address] [id number] [place] [address] 04 Feb, 2013 [facility] [place] [facility] [address] [id number] [place] [address] 26 Dec, 2012 [facility] [place] [facility] [address] [id number] [place] [address] 18 Dec, 2012 [facility] [place] [facility] [address] [id number] [place] [address] 13 Dec, 2012 [facility] [place] [facility] [address] [id number] [place] [address] 13 Dec, 2012 [facility] [address] [id number] [place] [address] Dec, [facility] [place] [facility] [address] [id number] [place] [address] Nov, [facility] [place] [facility] [address] [id number] [place] [address] Nov, [facility] [place] [facility] [address] [id number] [place] [address] Oct, [facility] [address] [id number] [place] [address] August, [facility] [place] [facility] [address] [id number] [place] [address] August, [facility] [place] [facility] [address] [id number] [place] [address] August, [facility] [place] [facility] [address] [id number] [place] [address] Jul, [facility] [place] [facility] [address] [id number] [place] [address] Jul, [facility] [place] [facility] [address] [id number] [place] [address] Jul, [facility] [place] [facility] [address] [id number] [place] [address] Jun, [facility] [place] [facility] [address] [id number], [place] [address] Jun, [facility] [place] [facility] [address] [id number] [place] [address] Jun, [facility] [place] [facility] [address] [id number] [place] [address] Jun, [facility] [place] [facility] [address] [id number] [place] [address] 18 Jun, 2012 [facility] [place] [facility] [address] [id number] [place] [address] 15 Jun, 2012 [facility] [address] [id number] [place] [address] 12 Jun, 2012 [facility] [address] [id number] [place] [address] 18 May, 2012 [facility] [address] [id number] [place] [address] 11 May, 2012 [facility] [place] [facility] [address] [id number] [place] [address] 06 May, 2012 [facility] [address] [id number] [place] [address] 05 May, 2012 [facility] [address] [facility] [id number] [place] [address] Apr, [facility] [address] [id number] [place] [address] Apr, [facility] [address] [facility] [id number] [place] [address] Apr, [facility] [address] [id number] [place] [address] Mar, [facility] [address] [facility] [id number] [place] [address] Mar, [facility] [address] [id number] [place] [address] Mar, [facility] [address] [id number] [place] [address] Mar, [facility] [place] [facility] [address] [id number] [place] [address] Mar, [facility] [place] [facility] [address] [id number] [place] [address] Mar, [facility] [address] [facility] [id number] [place] [address] Mar, [facility] [place] [facility] [address] [id number] [place] [address] Mar, [facility] [place] [facility] [address] [id number] [place] [address] Feb, [facility] [place] [facility] [address] [id number] [place] [address] Feb, [facility] [place] [facility] [address] [id number] [place] [address] Feb, [facility] [place] [facility] [address] [id number] [place] [address] Jan, [facility] [place] [facility] [address] [id number] [place] [address] Jan, [facility] [place] [facility] [address] [facility] [id number] [place] [address] Jan, [facility] [place] [facility] [address] [id number], [place] [address] Jan, [facility] [place] [facility] [address] [id number] [place] [address] Jan, [facility] [place] [facility] [address] [facility] [id number], [place] [address] Jan, [facility] [place] [facility] [address] [facility] [id number], [place] [address] Jan, [facility] [place] [facility] [address] [id number], [place] [address] 27 Dec, 2011 [facility] [place] [facility] [address] [id number], [place] [address] 24 Dec, 2011 [facility] [place] [facility] [address] [id number], [place] [address] 10 Dec, 2011 [facility] [place] [facility] [address] [facility] [id number], [place] [address] 30 Nov, 2011 [facility] [place] [facility] [address] [id number], [place] [address] Nov, [facility] [place] [facility] [address] [id number] [place] [address] Nov, [facility] [place] [facility] [address] [id number] [place] [address] Nov, [facility] [place] [facility] [address] [id number] [place] [address] Oct, [facility] [place] [facility] [address] [id number] [place] [address] Oct, [facility] [place] [facility] [address] [id number] [place] [address] Oct, [facility] [place] [facility] [address] [id number] [place] [address] Sep, [facility] [place] [facility] [address] [id number] [place] [address] Sep, [facility] [place] [facility] [address] [id number] [place] [address] Sep, [facility] [place] [facility] [address] [id number] [place] [address] Sep, [facility] [place] [facility] [address] [facility] [id number] [place] [address] Sep, [facility] [place] [facility] [address] [id number] [place] [address] Sep, [facility] [place] [facility] [address] [id number] [place] [address] August, [facility] [place] [facility] [address] [id number] [place] [address] Jul, [facility] [place] [facility] [address] [id number] [place] [address] Jul, [facility] [place] [facility] [address] [facility] [id number] [place] [address] Jul, [facility] [place] [facility] [address] [id number] [place] [address] 05 Jul, 2011 [facility] [place] [facility] [address] [id number] [place] [address] 04 Jul, 2011 [facility] [place] [facility] [address] [id number] [place] [address] 29 Jun, 2011 [facility] [place] [facility] [address] [id number] [place] [address] 27 Jun, 2011 [facility] [place] [facility] [address] [id number] [place] [address] 15 Jun, 2011 [facility] [place] [facility] [address] [id number] [place] [address] 15 Jun, 2011 [facility] [place] [facility] [address] [facility] [id number] [place] [address] Jun, [facility] [place] [facility] [address] [id number] [place] [address] May, [facility] [place] [facility] [address] [id number] [place] [address] May, [facility] [place] [facility] [address] [id number] [place] [address] May, [facility] [place] [facility] [address] [id number] [place] [address] May, [facility] [place] [facility] [address] [facility] [id number], [place] [address] May, [facility] [place] [facility] [address] [facility] [id number] [place] [address] May, [facility] [place] [facility] [address] [id number] [place] [address] May, [facility] [place] [facility] [address] [facility] [id number] [place] [address] Apr, [facility] [place] [facility] [address] [id number], [place] [address] 29 Mar, 2011 [facility] [place] [facility] [address] [id number] [place] [address] 13 Mar, 2011 [facility] [place] [facility] [address] [id number] [place] [address] 10 Mar, 2011 [facility] [place] [facility] [address] [id number] [place] [address] Mar, [facility] [place] [facility] [address] [id number] [place] [address] 08 Mar, 2011 [facility] [place] [facility] [address] [id number] [place] [address] 23 Feb, 2011 [facility] [place] [facility] [address] [id number] [place] [address] 14 Feb, 2011 [facility] [place] [facility] [address] [id number] [place] [address] 14 Feb, 2011 [facility] [place] [facility] [address] [id number] [place] [address] 14 Feb, 2011 [facility] [place] [facility] [address] [id number] [place] [address] Feb, [facility] [place] [facility] [address] [id number] [place] [address] Feb, [facility] [place] [facility] [address] [id number], [place] [address] Feb, [facility] [place] [facility] [address] [id number] [place] [address] Jan, [facility] [place] [facility] [address] [id number] [place] [address] 12 Dec, 2010 [facility] [place] [facility] [address] [id number] [place] [address] Oct, [facility] [place] [facility] [address] [id number] [place] [address] Jun, [facility] [place] [facility] [address] [id number] [place] [address] 23 Mar, 2010 [facility] [address] [id number] [place] [address] 23 Mar, 2010 [facility] [place] [facility] [address] [id number] [place] [address] 16 Mar, 2010 [facility] [address] [id number] [place] [address] 16 Mar, 2010 [facility] [address] [id number] [place] [address] 15 Mar, 2010 [facility] [address] [id number] [place] [address] 10 Mar, 2010 [facility] [address] [id number] [place] [address] 10 Mar, 2010 [facility] [address] [id number] [place] [address] 05 Mar, 2010 [facility] [address] [id number] [place] [address] 03 Mar, 2010 [facility] [address] [id number] [place] [address] 02 Mar, 2010 [facility] [address] [id number] [place] [address] Jan, [facility] [place] [facility] [address] [id number] [place] [address] Jan, [facility] [address] [id number] [place] [address] Jan, [facility] [place] [facility] [address] [id number] [place] [address] Nov, [facility] [place] [facility] [address] [id number] [place] [address] Oct, [facility] [place] [facility] [address] [id number] [place] [address] Mar, [facility] [address] [id number] [address] Mar, [facility] [id number] [address] Mar, [facility] [address] [id number] [address] Mar, [facility] [id number] [address] Dec, [facility] [id number] [place] [address] August, [facility] [id number] [place] [address] August, [facility] [id number] [address] Jul, [facility] [address] [address] Jan, [facility] [address] [id number] [address] Jan, IMMUNIZATIONS No Known Immunizations SOCIAL HISTORY Never Assessed REASON FOR VISIT hip injection PLAN OF CARE Activity Details Follow Up prn Reason: VITAL SIGNS MEDICATIONS Unknown Medications RESULTS No Results PROCEDURES Procedure Date Ordered Result Body Site DRAIN/INJECT, JOINT/BURSA Nov 18, 2017 DEPO MEDROL 80 MG/ML Nov 18, 2017 INSTRUCTIONS MEDICATIONS ADMINISTERED No Known Medications MEDICAL [...]
--- OUTSIDE RECORDS SUMMARY | 2018-09-22 02:46 | XMS REPORT ---
Author Author FLORENTINEZEKIEL PUCKETT Organization [facility] Address [address] [place] [address] Care Team Providers Care News Videographer Name Role Phone DANICA LERMAY Unavailable PROBLEMS Type Condition ICD9-CM Code FCB12-ZB Code Onset Dates Condition Status SNOMED Code Problem Chronic gastritis without bleeding, unspecified gastritis type K29.50 Active 9093925 Problem Vitamin D deficiency E55.9 Active 20876247 Problem Osteoporosis M81.0 Active 54186578 Problem Unspecified abdominal pain R10.9 Active 446167188 Problem Fibromyalgia M79.7 Active 46345916 Problem Chronic pain syndrome G89.4 Active 964696345 Problem Trigger point with back pain M54.9 Active 097129250 Problem Chronic tension-type headache, not intractable G44.229 Active 248955955 Problem RUQ abdominal pain R10.11 Active 586964403 Problem Pancytopenia D61.818 Active 564902989 Problem Right sided sciatica M54.31 Active 34343640 Problem Chronic prescription opiate use Z79.891 Active 300244979 Problem Drug induced constipation K59.03 Active [id number] Problem Leukopenia, unspecified type D72.819 Active 92040611 Problem Atrial fibrillation, unspecified type I48.91 Active 93587434 Problem Allergic rhinitis, unspecified allergic rhinitis type J30.9 Active 63474080 Problem Chronic obstructive pulmonary disease, unspecified COPD type J44.9 Active 15195654 Problem Hypothyroidism, unspecified hypothyroidism type E03.9 Active 23413591 Problem Other constipation K59.09 Active 191607345 Problem Porokeratosis Q82.8 Active 207934042 Problem 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 Active 731504981 Problem Allergy to intravenous contrast Z91.041 Active 092021175 Problem Vaginal atrophy N95.2 Active 645610314 Problem Major depression, recurrent F33.9 Active 21101220 Problem History of hepatitis C Z86.19 Active 66877390302360 Problem Hot flashes N95.1 Active 508223038 Problem Plantar fasciitis M72.2 Active 577941241 Problem Polyneuropathy associated with underlying disease G63 Active 654520684 Problem Primary insomnia F51.01 Active 8671969 Problem Low back pain M54.5 Active 402391826 ALLERGIES No Information ENCOUNTERS Encounter Location Date Diagnosis [place] [id number] [place] [address] Jan, [place] [id number] [place] [address] Dec, Chronic pain syndrome G89.4 [place] [id number] [place] [address] Nov, Onychocryptosis L60.0 [place] [id number] [place] [address] Nov, Chronic pain syndrome G89.4 [place] [id number] [place] [address] Nov, Trochanteric bursitis of both hips M70.61 [place] [id number] [place] [address] Oct, Hypothyroidism, unspecified hypothyroidism type E03.9 and Atrial fibrillation, unspecified type I48.91 [place] [id number] [place] [address] Oct, Fibromyalgia M79.7 ; Chronic pain syndrome G89.4 ; Hypothyroidism, unspecified hypothyroidism type E03.9 ; Overweight (BMI 25.0-29.9) E66.3 and Atrial fibrillation, unspecified type I48.91 [place] [id number] [place] [address] Oct, Chronic pain syndrome G89.4 [place] [id number] [place] [address] Sep, Chronic pain syndrome G89.4 [place] [id number] [place] [address] August, Somatic dysfunction of lumbar region M99.03 and Somatic dysfunction of pelvis region M99.05 [place] [id number] [place] [address] August, Chronic pain syndrome G89.4 [place] [id number] [place] [address] Jul, Trochanteric bursitis of left hip M70.62 and Trochanteric bursitis, right hip M70.61 [place] [id number] [place] [address] Jul, [place] [id number] [place] [address] Jul, Chronic pain syndrome G89.4 [facility] [id number] [place] [address] Jul, Hypothyroidism, unspecified hypothyroidism type E03.9 [place] [id number] [place] [address] Jul, Hypothyroidism, unspecified hypothyroidism type E03.9 [place] [id number] [place] [address] Jul, Chronic tension-type headache, not intractable G44.229 ; Atrial fibrillation, unspecified type I48.91 ; Chronic pain syndrome G89.4 ; Hypothyroidism, unspecified hypothyroidism type E03.9 ; Pancytopenia D61.818 ; History of hepatitis C Z86.19 ; Vaginal atrophy N95.2 ; RUQ abdominal pain R10.11 ; Chronic prescription opiate use Z79.891 ; Osteoporosis M81.0 and Screening for breast cancer Z12.31 [place] [id number] [place] [address] Jun, [place] [id number] [place] [address] May, [place] [id number] [place] [address] May, [facility] [address] [address] May, [facility] [id number] [place] [address] Apr, [facility] [address] [place] [address] Apr, Hypothyroidism, unspecified hypothyroidism type E03.9 [facility] [address] [place] [address] Apr, Hypothyroidism, unspecified hypothyroidism type E03.9 and Leukopenia, unspecified type D72.819 [place] [address] [place] [address] Mar, [place] [id number] [place] [address] Mar, Leukopenia, unspecified type D72.819 [facility] [address] [place] [address] Mar, Hypothyroidism, unspecified hypothyroidism type E03.9 and Low hemoglobin D64.9 [place] [address] [address] Mar, Hypothyroidism, unspecified hypothyroidism type E03.9 [place] [address] [address] Mar, Osteoporosis M81.0 ; Low hemoglobin D64.9 and Hypothyroidism, unspecified hypothyroidism type E03.9 [place] [address] [place] [address] Mar, Hypothyroidism, unspecified hypothyroidism type E03.9 ; Bilirubin in urine R82.2 and Pancytopenia D61.818 [facility] [address] [address] Feb, [facility] [id number] [place] [address] 18 Feb, 2017 Cough R05 and Bronchitis J40 [facility] [id number] [place] [address] 14 Feb, 2017 Other viral agents as the cause of diseases classified elsewhere B97.89 and Acute upper respiratory infection, unspecified J06.9 [place] [address] [address] Feb, Fibromyalgia M79.7 ; Chronic pain syndrome G89.4 ; Hypothyroidism, unspecified hypothyroidism type E03.9 ; Primary insomnia F51.01 ; Osteoporosis M81.0 ; Vision abnormalities H53.9 ; Pancytopenia D61.818 ; BMI 28.0-28.9,adult Z68.28 and Encounter for immunization Z23 [address] [address] Feb, Neuroma D36.10 and Capsulitis of right foot M77.51 [place] [id number] [place] [address] Feb, [place] [address] [address] Feb, Hypothyroidism, unspecified hypothyroidism type E03.9 [place] [id number] [place] [address] Jan, [place] [address] [address] Jan, Atrial fibrillation, unspecified type I48.91 [place] [address] [address] Jan, [place] [address] [address] Jan, Fibromyalgia M79.7 ; Atrial fibrillation, unspecified type I48.91 ; Pain of left hand M79.642 ; Pain in right hand M79.641 ; Chronic prescription opiate use Z79.891 ; Chronic pain syndrome G89.4 ; Elevated fasting glucose R73.01 and Hypothyroidism, unspecified hypothyroidism type E03.9 [facility] [address] [address] Jan, [facility] [address] [address] Dec, Trochanteric bursitis of both hips M70.61 [facility] [address] [address] Dec, [facility] [address] [address] Dec, [facility] [address] [address] Nov, [place] [address] [address] Nov, Unilateral headache R51 [facility] [address] [address] Nov, [facility] [address] [address] Oct, Unilateral headache R51 ; 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 and Allergy to intravenous contrast Z91.041 [facility] [address] [address] Oct, [facility] [address] [address] Oct, [facility] [id number] [place] [address] Sep, Hypothyroidism, unspecified hypothyroidism type E03.9 [facility] [id number] [place] [address] Sep, Hypothyroidism, unspecified hypothyroidism type E03.9 and Bilirubin in urine R82.2 [place] [address] [address] Sep, Trochanteric bursitis of both hips M70.61 [facility] [id number] [place] [address] Sep, Hypothyroidism, unspecified hypothyroidism type E03.9 ; Dysuria R30.0 ; Chronic tension-type headache, not intractable G44.229 and Drug induced constipation K59.03 [facility] [address] [address] Sep, [facility] [address] [address] Sep, [facility] [address] [address] August, [facility] [address] [address] Jul, [facility] [address] [address] Jul, Trochanteric bursitis of right hip M70.61 [facility] [address] [address] Jul, Hypothyroidism, unspecified hypothyroidism type E03.9 [facility] [id number] [place] [address] Jul, Fibromyalgia M79.7 ; Chronic pain syndrome G89.4 ; Hypothyroidism, unspecified hypothyroidism type E03.9 and Other constipation K59.09 [facility] [id number] [place] [address] Jun, Swollen tonsil J35.1 and Strep throat J02.0 [facility] [address] [address] Jun, [facility] [address] [address] Jun, Acute maxillary sinusitis J01.00 [facility] [address] [place] [address] Jun, Hypothyroidism, unspecified hypothyroidism type E03.9 [facility] [id number] [place] [address] Jun, Chronic pain syndrome G89.4 ; Fibromyalgia M79.7 ; Hypothyroidism, unspecified hypothyroidism type E03.9 and Chronic prescription opiate use Z79.891 [place] [address] [address] May, [facility] [id number] [place] [address] Apr, Hypothyroidism, unspecified hypothyroidism type E03.9 [facility] [id number] [place] [address] Apr, [place] [address] [address] Apr, Lipid screening Z13.220 and Hypothyroidism, unspecified hypothyroidism type E03.9 [place] [id number] [place] [address] Apr, [facility] [id number] [place] [address] Mar, Trochanteric bursitis of both hips M70.61 [place] [id number] [place] [address] Mar, [place] [id number] [place] [address] Mar, Plantar fasciitis M72.2 and Porokeratosis Q82.8 [facility] [address] [address] Feb, Lipid screening Z13.220 ; Vitamin D deficiency E55.9 and Hypothyroidism, unspecified hypothyroidism type E03.9 [facility] [id number] [place] [address] Feb, Chronic pain syndrome G89.4 ; Hypothyroidism, unspecified hypothyroidism type E03.9 ; Pancytopenia D61.818 ; Vaginal atrophy N95.2 ; Chronic gastritis without bleeding, unspecified gastritis type K29.50 ; Vitamin D deficiency E55.9 ; Chronic prescription opiate use Z79.891 ; Adverse effect of other opioids, initial encounter T40.2X5A ; Drug induced constipation K59.03 ; Lipid screening Z13.220 and Encounter for immunization Z23 [facility] [address] [address] Feb, [facility] [address] [address] Feb, Ingrown toenail L60.0 [place] [address] [address] Jan, [place] [address] [address] Jan, Trochanteric bursitis of both hips M70.61 [place] [address] [address] Jan, [place] [address] [address] Jan, [facility] [id number] [place] [address] Jan, [place] [address] [address] Jan, Right sided sciatica M54.31 [facility] [id number] [place] [address] Dec, Onychomycosis B35.1 [place] [address] [address] Dec, [facility] [id number] [place] [address] Dec, [facility] [address] [address] Dec, [facility] [id number] [place] [address] Dec, Osteoarthritis of right hip, unspecified osteoarthritis type M16.11 and Bursitis of right hip M70.71 [facility] [id number] [place] [address] Nov, [facility] [id number] [place] [address] Nov, [facility] [id number] [place] [address] Nov, [facility] [id number] [place] [address] Nov, Hypothyroidism, unspecified hypothyroidism type E03.9 ; Vitamin D deficiency E55.9 and History of hepatitis C Z86.19 [place] [id number] [place] [address] Nov, Right upper quadrant pain R10.11 ; History of hepatitis C Z86.19 and Low back pain M54.5 [place] [id number] [place] [address] Oct, Trochanteric bursitis, right hip M70.61 [place] [address] [place] [address] Oct, [facility] [id number] [place] [address] Oct, [facility] [id number] [place] [address] Oct, Trochanteric bursitis of both hips M70.61 and Right sided sciatica M54.31 [facility] [address] [address] Oct, Trochanteric bursitis of both hips M70.61 [facility] [id number] [place] [address] 14 Oct, 2015 RUQ abdominal pain R10.11 [place] [address] [address] 13 Oct, 2015 Sciatic leg pain M54.30 [place] [address] [address] 11 Oct, 2015 RUQ abdominal pain R10.11 [place] [address] [address] 07 Oct, 2015 RUQ abdominal pain R10.11 ; History of hepatitis C Z86.19 and Trigger point with back pain M54.9 [place] [id number] [place] [address] Sep, [place] [address] [address] Sep, Right sided sciatica M54.31 [place] [id number] [place] [address] Sep, Hypothyroidism, unspecified hypothyroidism type E03.9 and Vitamin D deficiency E55.9 [place] [id number] [place] [address] Sep, Plantar fasciitis M72.2 and Porokeratosis Q82.8 [place] [id number] [place] [address] Sep, Hypothyroidism, unspecified hypothyroidism type E03.9 ; Chronic pain syndrome G89.4 ; Polyneuropathy associated with underlying disease G63 and Vitamin D deficiency E55.9 [place] [address] [address] August, [place] [id number] [place] [address] Jul, Plantar fasciitis M72.2 [place] [address] [address] Jul, Trochanteric bursitis, right hip M70.61 [place] [id number] [place] [address] 07 Jul, 2015 Hypothyroidism, unspecified hypothyroidism type E03.9 [place] [id number] [place] [address] Jul, Hypothyroidism, unspecified hypothyroidism type E03.9 ; Chronic pain syndrome G89.4 and Polyneuropathy associated with underlying disease G63 [place] [id number] [place] [address] 10 Jun, 2015 Trochanteric bursitis of both hips M70.61 [place] [id number] [place] [address] 08 Jun, 2015 Vitamin D deficiency E55.9 ; Osteoporosis M81.0 ; Low back pain M54.5 and Plantar fasciitis M72.2 [place] [id number] [place] [address] 26 May, 2015 Vitamin D deficiency E55.9 and Hypothyroidism, unspecified hypothyroidism type E03.9 [place] [id number] [place] [address] 23 May, 2015 Acute maxillary sinusitis J01.00 [place] [id number] [place] [address] 18 May, 2015 Osteoporosis M81.0 and Hypothyroidism, unspecified hypothyroidism type E03.9 [place] [id number] [place] [address] 16 May, 2015 Osteoporosis M81.0 [place] [id number] [place] [address] 15 May, 2015 [place] [id number] [place] [address] Apr, [place] [id number] [place] [address] Apr, Trochanteric bursitis of both hips M70.61 [place] [id number] [place] [address] Apr, Hypothyroidism, unspecified hypothyroidism type E03.9 [place] [id number] [place] [address] Apr, Chronic pain syndrome G89.4 ; Bilateral low back pain with sciatica, sciatica laterality unspecified M54.40 ; Pain in right hip M25.551 ; Pain in left hip M25.552 ; Chronic prescription opiate use Z79.899 ; Primary insomnia F51.01 and Hypothyroidism, unspecified hypothyroidism type E03.9 [place] [address] [address] Mar, [place] [address] [address] Feb, [place] [address] [address] Feb, Chronic pain syndrome G89.4 and Major depression F32.9 [place] [address] [address] Feb, Fatigue R53.83 [place] [id number] [place] [address] Feb, History of fracture Z87.81 [place] [address] [address] Feb, Major depression, recurrent F33.9 and Generalized anxiety disorder F41.1 [place] [address] [address] Feb, [place] [address] [address] Jan, Hypothyroidism, unspecified hypothyroidism type E03.9 [place] [address] [address] Jan, Abdominal pain R10.9 and Hypothyroidism, unspecified hypothyroidism type E03.9 [place] [id number] [place] [address] Jan, Abdominal pain R10.9 [place] [id number] [place] [address] Jan, Hypothyroidism, unspecified hypothyroidism type E03.9 [place] [address] [address] Jan, [place] [address] [address] Jan, 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 and Hypothyroidism, unspecified hypothyroidism type E03.9 [place] [id number] [place] [address] Jan, 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 ; Abdominal pain R10.9 ; Dyspareunia N94.1 ; Encounter for immunization Z23 ; History of fracture Z87.81 ; Fatigue R53.83 ; Throat fullness R68.89 ; Bruises easily R23.8 ; Hot flashes N95.1 ; Depression F32.9 and Vaginal atrophy N95.2 [place] [id number] [place] [address] Jan, Hypothyroidism, unspecified hypothyroidism type E03.9 [place] [address] [place] [address] Jan, Unspecified abdominal pain R10.9 ; Chronic obstructive pulmonary disease, unspecified COPD type J44.9 ; Allergic rhinitis, unspecified allergic rhinitis type J30.9 ; Chronic pain syndrome G89.4 ; Hypothyroidism, unspecified hypothyroidism type E03.9 ; Chest pain, unspecified chest pain type R07.9 and Plantar fasciitis M72.2 [place] [id number] [place] [address] Jan, Trochanteric bursitis of both hips M70.61 [facility] [id number] [place] [address] Dec, [facility] [id number] [place] [address] Nov, [facility] [id number] [place] [address] Nov, [facility] [id number] [place] [address] Nov, Constipation 564.00 [facility] [address] [address] Oct, Chronic pain 338.29 and Hypothyroidism 244.9 [facility] [id number] [place] [address] Oct, [facility] [address] [place] [id number] [place] [id number] Sep, [facility] [id number] [place] [id number] Sep, [facility] [id number] [place] [id number] Sep, [facility] [id number] [place] [id number] Sep, [facility] [id number] [place] [id number] Sep, [facility] [id number] [place] [id number] Sep, [facility] [id number] [place] [id number] Sep, COPD exacerbation 491.21 ; Chronic pain 338.29 ; Hypothyroidism 244.9 and Pancytopenia 284.19 [facility] [address] [id number] [place] [id number] August, [facility] [place] [facility] [address] [id number] [place] [address] Jul, [facility] [place] [facility] [address] [id number] [place] [address] Jul, [facility] [place] [facility] [address] [facility] [id number] [place] [address] Jun, [facility] [place] [facility] [address] [id number] [place] [address] Jun, [facility] [place] [facility] [address] [id number] [place] [address] Jun, [facility] [place] [facility] [address] [id number] [place] [address] Jun, [facility] [place] [facility] [address] [id number] [place] [address] Jun, [facility] [place] [facility] [address] [facility] [id number] [place] [address] May, [facility] [place] [facility] [address] [facility] [id number] [place] [address] May, [facility] [place] [facility] [address] [facility] [id number] [place] [address] May, [facility] [place] [facility] [address] [id number] [address] May, [facility] [place] [facility] [address] [facility] [id number] [address] May, [facility] [place] [facility] [address] [id number] [place] [address] May, [facility] [place] [facility] [address] [facility] [id number] [place] [address] May, [facility] [place] [facility] [address] [facility] [id number] [place] [address] May, [facility] [place] [facility] [address] [id number] [place] [address] May, 2014 [facility] [place] [facility] [address] [id number] [place] [address] May, 2014 [facility] [place] [facility] [address] [id number] [place] [address] May, 2014 [facility] [place] [facility] [address] [id number] [place] [address] May, 2014 [facility] [place] [facility] [address] [id number] [place] [address] May, [facility] [place] [facility] [address] [id number] [place] [address] Apr, [facility] [place] [facility] [address] [id number] [place] [address] Apr, [facility] [place] [facility] [address] [id number] [place] [address] Apr, [facility] [place] [facility] [address] [id number] [place] [address] Apr, [facility] [place] [facility] [address] [facility] [id number] [place] [address] Apr, [facility] [place] [facility] [address] [id number] [place] [address] Apr, [facility] [place] [facility] [address] [id number] [place] [address] Apr, [facility] [place] [facility] [address] [id number] [place] [address] Mar, [facility] [place] [facility] [address] [id number] [place] [address] Mar, [facility] [place] [facility] [address] [id number] [place] [address] Mar, [facility] [place] [facility] [address] [id number], [place] [address] Mar, [facility] [place] [facility] [address] [id number] [place] [address] Mar, [facility] [place] [facility] [address] [id number] [place] [address] Mar, [facility] [place] [facility] [address] [id number] [place] [address] Feb, [facility] [place] [facility] [address] [id number] [place] [address] Feb, [facility] [place] [facility] [address] [id number] [place] [address] Feb, [facility] [place] [facility] [address] [id number] [place] [address] Feb, [facility] [place] [facility] [address] [id number] [place] [address] Feb, [facility] [place] [facility] [address] [id number] [place] [address] Feb, [facility] [place] [facility] [address] [id number] [place] [address] Jan, [facility] [place] [facility] [address] [id number] [place] [address] Jan, [facility] [place] [facility] [address] [id number], [place] [address] Jan, [facility] [place] [facility] [address] [id number], [place] [address] Jan, [facility] [place] [facility] [address] [id number] [place] [address] Jan, [facility] [place] [facility] [address] [id number], [place] [address] Jan, [facility] [place] [facility] [address] [id number], [place] [address] Jan, [facility] [place] [facility] [address] [id number] [place] [address] Jan, [facility] [place] [facility] [address] [id number] [place] [address] Dec, [facility] [place] [facility] [address] [id number] [place] [address] Dec, [facility] [place] [facility] [address] [id number] [place] [address] Dec, [facility] [place] [facility] [address] [id number] [place] [address] Dec, [facility] [place] [facility] [address] [id number] [place] [address] Dec, [facility] [place] [facility] [address] [id number] [place] [address] Dec, [facility] [place] [facility] [address] [id number] [place] [address] Dec, [facility] [place] [facility] [address] [id number] [place] [address] Nov, [facility] [place] [facility] [address] [id number] [place] [address] Nov, [facility] [place] [facility] [address] [id number] [place] [address] Oct, [facility] [place] [facility] [address] [id number] [place] [address] Oct, [facility] [place] [facility] [address] [id number] [place] [address] Oct, [facility] [place] [facility] [address] [id number] [place] [address] Oct, [facility] [place] [facility] [address] [id number] [place] [address] Sep, [facility] [place] [facility] [address] [id number] [place] [address] Sep, [facility] [place] [facility] [address] [id number] [place] [address] Sep, [facility] [place] [facility] [address] [id number] [place] [address] Sep, [facility] [place] [facility] [address] [id number] [place] [address] Sep, [facility] [place] [facility] [address] [id number] [place] [address] Sep, [facility] [place] [facility] [address] [id number] [place] [address] Sep, [facility] [place] [facility] [address] [id number] [place] [address] Sep, [facility] [place] [facility] [address] [id number] [place] [address] August, [facility] [place] [facility] [address] [id number] [place] [address] August, [facility] [place] [facility] [address] [id number] [place] [address] August, [facility] [place] [facility] [address] [id number] [place] [address] August, [facility] [place] [facility] [address] [id number] [place] [address] Jul, [facility] [place] [facility] [address] [id number] [place] [address] Jul, [facility] [place] [facility] [address] [id number] [place] [address] Jul, [facility] [place] [facility] [address] [id number] [place] [address] Jul, [facility] [place] [facility] [address] [id number] [place] [address] Jul, [facility] [place] [facility] [address] [id number], [place] [address] 16 Jul, 2013 [facility] [address] [id number] [place] [address] 15 Jul, 2013 [facility] [place] [facility] [address] [id number] [place] [address] 15 Jul, 2013 [facility] [place] [facility] [address] [id number] [place] [address] 18 Jun, 2013 [facility] [place] [facility] [address] [id number] [place] [address] 18 Jun, 2013 [facility] [place] [facility] [address] [id number] [place] [address] Jun, [facility] [place] [facility] [address] [id number] [place] [address] Jun, [facility] [place] [facility] [address] [facility] [id number] [place] [address] Jun, [facility] [place] [facility] [address] [id number] [place] [address] Jun, [facility] [place] [facility] [address] [id number] [place] [address] Jun, [facility] [place] [facility] [address] [id number] [place] [address] Jun, [facility] [place] [facility] [address] [id number] [place] [address] May, [facility] [place] [facility] [address] [id number] [place] [address] May, [facility] [place] [facility] [address] [id number] [place] [address] Apr, [facility] [place] [facility] [address] [id number] [place] [address] Apr, [facility] [place] [facility] [address] [id number] [place] [address] Mar, [facility] [place] [facility] [address] [id number] [place] [address] 24 Mar, 2013 [facility] [place] [facility] [address] [id number] [place] [address] Mar, [facility] [place] [facility] [address] [id number] [place] [address] 18 Mar, 2013 [facility] [place] [facility] [address] [id number] [place] [address] Mar, [facility] [place] [facility] [address] [id number] [place] [address] Mar, [facility] [place] [facility] [address] [id number] [place] [address] Mar, [facility] [place] [facility] [address] [id number] [place] [address] Feb, [facility] [place] [facility] [address] [id number] [place] [address] Feb, [facility] [place] [facility] [address] [id number] [place] [address] Feb, [facility] [place] [facility] [address] [id number] [place] [address] Feb, [facility] [place] [facility] [address] [id number] [place] [address] Feb, [facility] [place] [facility] [address] [id number] [place] [address] 04 Feb, 2013 [facility] [place] [facility] [address] [id number] [place] [address] 26 Dec, 2012 [facility] [place] [facility] [address] [id number] [place] [address] 18 Sep2012 [facility] [place] [facility] [address] [id number] [place] [address] 13 Dec, 2012 [facility] [place] [facility] [address] [id number] [place] [address] Dec, [facility] [address] [id number] [place] [address] Dec, [facility] [address] [id number] [place] [address] Nov, [facility] [address] [id number] [place] [address] Nov, [facility] [address] [id number] [place] [address] Oct, [facility] [address] [id number] [place] [address] August, [facility] [address] [id number] [place] [address] August, [facility] [address] [id number] [place] [address] August, [facility] [address] [id number] [place] [address] Jul, [facility] [address] [id number] [place] [address] Jul, [facility] [place] [facility] [address] [id number] [place] [address] Jul, [facility] [address] [id number] [place] [address] Jun, [facility] [place] [facility] [address] [id number], [place] [address] Jun, [facility] [place] [facility] [address] [id number] [place] [address] Jun, [facility] [place] [facility] [address] [id number] [place] [address] Jun, [facility] [place] [facility] [address] [id number] [place] [address] 18 Jun, 2012 [facility] [place] [facility] [address] [id number] [place] [address] 15 Jun, 2012 [facility] [address] [id number] [place] [address] 12 Jun, 2012 [facility] [place] [facility] [address] [id number] [place] [address] 18 May, 2012 [facility] [address] [id number] [place] [address] 11 May, 2012 [facility] [address] [id number] [place] [address] 06 May, 2012 [facility] [address] [id number] [place] [address] 05 May, 2012 [facility] [address] [id number] [place] [address] Apr, [facility] [address] [id number] [place] [address] Apr, [facility] [address] [id number] [place] [address] Apr, [facility] [address] [facility] [id number] [place] [address] Mar, [facility] [address] [id number] [place] [address] Mar, [facility] [address] [id number] [place] [address] Mar, [facility] [address] [id number] [place] [address] Mar, [facility] [place] [facility] [address] [id number] [place] [address] Mar, [facility] [place] [facility] [address] [id number] [place] [address] Mar, [facility] [address] [facility] [id number] [place] [address] Mar, [facility] [place] [facility] [address] [id number] [place] [address] Mar, [facility] [place] [facility] [address] [id number] [place] [address] Feb, [facility] [place] [facility] [address] [id number] [place] [address] Feb, [facility] [place] [facility] [address] [id number] [place] [address] Feb, [facility] [place] [facility] [address] [id number] [place] [address] Jan, [facility] [place] [facility] [address] [id number] [place] [address] Jan, [facility] [place] [facility] [address] [id number] [place] [address] Jan, [facility] [place] [facility] [address] [id number] [place] [address] Jan, [facility] [place] [facility] [address] [id number] [place] [address] Jan, [facility] [place] [facility] [address] [id number] [place] [address] Jan, [facility] [place] [facility] [address] [id number] [place] [address] Jan, [facility] [place] [facility] [address] [id number], [place] [address] Dec, [facility] [place] [facility] [address] [id number] [place] [address] 24 Dec, 2011 [facility] [place] [facility] [address] [id number] [place] [address] Dec, [facility] [place] [facility] [address] [id number] [place] [address] 30 Nov, 2011 [facility] [place] [facility] [address] [id number] [place] [address] Nov, [facility] [place] [facility] [address] [id number] [place] [address] Nov, [facility] [place] [facility] [address] [id number] [place] [address] Nov, [facility] [place] [facility] [address] [id number] [place] [address] Oct, [facility] [place] [facility] [address] [id number] [place] [address] Oct, [facility] [place] [facility] [address] [id number] [place] [address] Oct, [facility] [place] [facility] [address] [id number] [place] [address] Sep, [facility] [place] [facility] [address] [id number] [place] [address] Sep, [facility] [place] [facility] [address] [id number] [place] [address] Sep, [facility] [place] [facility] [address] [id number] [place] [address] Sep, [facility] [place] [facility] [address] [id number] [place] [address] Sep, [facility] [place] [facility] [address] [id number] [place] [address] Sep, [facility] [place] [facility] [address] [id number] [place] [address] August, [facility] [place] [facility] [address] [id number] [place] [address] Jul, [facility] [place] [facility] [address] [id number] [place] [address] Jul, [facility] [place] [facility] [address] [id number] [place] [address] Jul, [facility] [place] [facility] [address] [id number] [place] [address] 05 Jul, 2011 [facility] [place] [facility] [address] [id number] [place] [address] 04 Jul, 2011 [facility] [place] [facility] [address] [id number] [place] [address] 29 Jun, 2011 [facility] [place] [facility] [address] [id number] [place] [address] 27 Jun, 2011 [facility] [place] [facility] [address] [id number] [place] [address] 15 Jun, 2011 [facility] [place] [facility] [address] [id number] [place] [address] 15 Jun, 2011 [facility] [place] [facility] [address] [facility] [id number] [place] [address] Jun, [facility] [place] [facility] [address] [id number] [place] [address] May, [facility] [place] [facility] [address] [id number] [place] [address] May, [facility] [place] [facility] [address] [id number] [place] [address] May, [facility] [place] [facility] [address] [id number] [place] [address] May, [facility] [place] [facility] [address] [id number], [place] [address] May, [facility] [place] [facility] [address] [id number] [place] [address] May, [facility] [place] [facility] [address] [id number] [place] [address] May, [facility] [place] [facility] [address] [facility] [id number] [place] [address] Apr, [facility] [place] [facility] [address] [id number], [place] [address] 29 Mar, 2011 [facility] [place] [facility] [address] [id number] [place] [address] 13 Mar, 2011 [facility] [place] [facility] [address] [id number] [place] [address] Mar, [facility] [place] [facility] [address] [id number] [place] [address] Mar, [facility] [place] [facility] [address] [id number] [place] [address] 08 Mar, 2011 [facility] [place] [facility] [address] [id number] [place] [address] 23 Feb, 2011 [facility] [place] [facility] [address] [id number] [place] [address] 14 Feb, 2011 [facility] [place] [facility] [address] [facility] [id number] [place] [address] 14 Feb, 2011 [facility] [place] [facility] [address] [id number] [place] [address] 14 Feb, 2011 [facility] [place] [facility] [address] [facility] [id number] [place] [address] Feb, [facility] [place] [facility] [address] [facility] [id number] [place] [address] Feb, [facility] [place] [facility] [address] [id number] [place] [address] Feb, [facility] [place] [facility] [address] [id number] [address] Jan, [facility] [place] [facility] [address] [id number] [place] [address] 12 Dec, 2010 [facility] [place] [facility] [address] [id number] [place] [address] Oct, [facility] [place] [facility] [address] [facility] [id number] [place] [address] Jun, [facility] [place] [facility] [address] [id number] [place] [address] 23 Mar, 2010 [facility] [place] [facility] [address] [id number] [place] [address] 23 Mar, 2010 [facility] [place] [facility] [address] [id number] [place] [address] 16 Mar, 2010 [facility] [place] [facility] [address] [id number] [place] [address] 16 Mar, 2010 [facility] [place] [facility] [address] [id number] [place] [address] 15 Mar, 2010 [facility] [place] [facility] [address] [id number] [place] [address] 10 Mar, 2010 [facility] [place] [facility] [address] [id number] [place] [address] 10 Mar, 2010 [facility] [place] [facility] [address] [id number] [place] [address] 05 Mar, 2010 [facility] [place] [facility] [address] [id number] [place] [address] 03 Mar, 2010 [facility] [place] [facility] [address] [id number] [place] [address] 02 Mar, 2010 [facility] [place] [facility] [address] [id number] [place] [address] Jan, [facility] [place] [facility] [address] [id number] [place] [address] Jan, [facility] [place] [facility] [address] [id number] [place] [address] Jan, [facility] [place] [facility] [address] [id number] [place] [address] Nov, [facility] [place] [facility] [address] [id number] [place] [address] Oct, [facility] [place] [facility] [address] [id number] [place] [address] Mar, [facility] [address] [id number] [address] Mar, [facility] [address] [facility] [id number], [place] [address] Mar, [facility] [address] [id number] [address] Mar, [facility] [id number] [address] Dec, [facility] [id number] [address] August, [facility] [id number] [place] [address] August, [facility] [id number] [address] Jul, [facility] [id number] [address] Jan, [facility] [address] [id number], [place] [address] Jan, IMMUNIZATIONS No Known Immunizations SOCIAL HISTORY Never Assessed REASON FOR VISIT Controlled Medication Refill- Due 12/24/17 PLAN OF CARE VITAL SIGNS MEDICATIONS Medication Instructions Dosage Frequency Start Date End Date Duration Status Hydrocodone-Acetaminophen 10-325 MG Orally 2 times a day 1 tablet as needed Dec, 28 days Active RESULTS No Results PROCEDURES [...]
--- NOTE | 2018-09-22 02:47 | NUR ---
pt here with " ". pt alert [facility] 15. pt seen yesterday and dx uti and placed on antibiotics. 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 " feels like im going to explode" rating 10. associated with blood in ua and pain with ua and says ua is normal. pt also c/o nausea /o vomiting and relates diarrhea x 1 yesterday. pt is on a blood thinner for a fib. pt denies dyspnea and no acute sighns of dyspnea noted. lungs cta bilaterally. abd soft slightly distended tender to palpation rlq only. skin pale. pt said she gave blood yesterday. done tunde pt at 0253.
--- OUTSIDE RECORDS SUMMARY | 2018-09-22 02:47 | XMS REPORT ---
Author Author FLORENTINEZEKIEL PUCKETT Organization [facility] Address [address] [place] [address] Care Team Providers Care Matcher Name Role Phone DANICA LERMAY Unavailable PROBLEMS Type Condition ICD9-CM Code [id number] Code Onset Dates Condition Status SNOMED Code Problem Chronic gastritis without bleeding, unspecified gastritis type K29.50 Active 4848032 Problem Vitamin D deficiency E55.9 Active 88837272 Problem Osteoporosis M81.0 Active 54005448 Problem Unspecified abdominal pain R10.9 Active 628002406 Problem Fibromyalgia M79.7 Active 52785162 Problem Chronic pain syndrome G89.4 Active 236632404 Problem Trigger point with back pain M54.9 Active 119352021 Problem Chronic tension-type headache, not intractable G44.229 Active 823064296 Problem RUQ abdominal pain R10.11 Active 588705718 Problem Pancytopenia D61.818 Active 872769964 Problem Right sided sciatica M54.31 Active 41726558 Problem Chronic prescription opiate use Z79.891 Active 071304339 Problem Drug induced constipation K59.03 Active 130833881932357 Problem Leukopenia, unspecified type D72.819 Active 56167589 Problem Atrial fibrillation, unspecified type I48.91 Active 77155161 Problem Allergic rhinitis, unspecified allergic rhinitis type J30.9 Active 21025610 Problem Chronic obstructive pulmonary disease, unspecified COPD type J44.9 Active 24615814 Problem Hypothyroidism, unspecified hypothyroidism type E03.9 Active 34947082 Problem Other constipation K59.09 Active 522840460 Problem Porokeratosis Q82.8 Active 403528474 Problem 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 Active 029820903 Problem Allergy to intravenous contrast Z91.041 Active 711123465 Problem Vaginal atrophy N95.2 Active 264942788 Problem Major depression, recurrent F33.9 Active 29660493 Problem History of hepatitis C Z86.19 Active 22621207103543 Problem Hot flashes N95.1 Active 865013372 Problem Plantar fasciitis M72.2 Active 756343747 Problem Polyneuropathy associated with underlying disease G63 Active 583929421 Problem Primary insomnia F51.01 Active 6656287 Problem Low back pain M54.5 Active 244766346 ALLERGIES No Information ENCOUNTERS Encounter Location Date Diagnosis [facility] [id number] [place] [address] Jan, [facility] [id number] [place] [address] Dec, Chronic pain syndrome G89.4 [facility] [id number] [place] [address] Nov, Onychocryptosis L60.0 [facility] [id number] [place] [address] Nov, Chronic pain syndrome G89.4 [facility] [id number] [place] [address] Nov, Trochanteric bursitis of both hips M70.61 [facility] [id number] [place] [address] Oct, Hypothyroidism, unspecified hypothyroidism type E03.9 and Atrial fibrillation, unspecified type I48.91 [facility] [id number] [place] [address] Oct, Fibromyalgia M79.7 ; Chronic pain syndrome G89.4 ; Hypothyroidism, unspecified hypothyroidism type E03.9 ; Overweight (BMI 25.0-29.9) E66.3 and Atrial fibrillation, unspecified type I48.91 [facility] [id number] [place] [address] Oct, Chronic pain syndrome G89.4 [facility] [id number] [place] [address] Sep, Chronic pain syndrome G89.4 [facility] [id number] [place] [address] August, Somatic dysfunction of lumbar region M99.03 and Somatic dysfunction of pelvis region M99.05 [facility] [id number] [place] [address] August, Chronic pain syndrome G89.4 [facility] [id number] [place] [address] Jul, Trochanteric bursitis of left hip M70.62 and Trochanteric bursitis, right hip M70.61 [facility] [id number] [place] [address] Jul, [facility] [id number] [place] [address] Jul, Chronic pain syndrome G89.4 [facility] [id number] [place] [address] Jul, Hypothyroidism, unspecified hypothyroidism type E03.9 [facility] [id number] [place] [address] Jul, Hypothyroidism, unspecified hypothyroidism type E03.9 [facility] [id number] [place] [address] Jul, Chronic tension-type headache, not intractable G44.229 ; Atrial fibrillation, unspecified type I48.91 ; Chronic pain syndrome G89.4 ; Hypothyroidism, unspecified hypothyroidism type E03.9 ; Pancytopenia D61.818 ; History of hepatitis C Z86.19 ; Vaginal atrophy N95.2 ; RUQ abdominal pain R10.11 ; Chronic prescription opiate use Z79.891 ; Osteoporosis M81.0 and Screening for breast cancer Z12.31 [facility] [id number] [place] [address] Jun, [facility] [id number] [place] [address] May, [facility] [id number] [place] [address] May, [facility] [address] [address] May, [facility] [address] [place] [address] Apr, [facility] [address] [place] [address] Apr, Hypothyroidism, unspecified hypothyroidism type E03.9 [facility] [address] [place] [address] Apr, Hypothyroidism, unspecified hypothyroidism type E03.9 and Leukopenia, unspecified type D72.819 [facility] [address] [place] [address] Mar, [facility] [id number] [place] [address] Mar, Leukopenia, unspecified type D72.819 [facility] [address] [place] [address] Mar, Hypothyroidism, unspecified hypothyroidism type E03.9 and Low hemoglobin D64.9 [facility] [address] [address] Mar, Hypothyroidism, unspecified hypothyroidism type E03.9 [facility] [address] [address] Mar, Osteoporosis M81.0 ; Low hemoglobin D64.9 and Hypothyroidism, unspecified hypothyroidism type E03.9 [facility] [address] [place] [address] Mar, Hypothyroidism, unspecified hypothyroidism type E03.9 ; Bilirubin in urine R82.2 and Pancytopenia D61.818 [facility] [address] [address] Feb, [facility] [id number] [place] [address] 18 Feb, 2017 Cough R05 and Bronchitis J40 [facility] [id number] [place] [address] 14 Feb, 2017 Other viral agents as the cause of diseases classified elsewhere B97.89 and Acute upper respiratory infection, unspecified J06.9 [facility] [address] [address] Feb, Fibromyalgia M79.7 ; Chronic pain syndrome G89.4 ; Hypothyroidism, unspecified hypothyroidism type E03.9 ; Primary insomnia F51.01 ; Osteoporosis M81.0 ; Vision abnormalities H53.9 ; Pancytopenia D61.818 ; BMI 28.0-28.9,adult Z68.28 and Encounter for immunization Z23 [address] [address] Feb, Neuroma D36.10 and Capsulitis of right foot M77.51 [facility] [id number] [place] [address] Feb, [facility] [address] [address] Feb, Hypothyroidism, unspecified hypothyroidism type E03.9 [facility] [id number] [place] [address] Jan, [facility] [address] [address] Jan, Atrial fibrillation, unspecified type I48.91 [facility] [address] [address] Jan, [facility] [address] [address] Jan, Fibromyalgia M79.7 ; Atrial fibrillation, unspecified type I48.91 ; Pain of left hand M79.642 ; Pain in right hand M79.641 ; Chronic prescription opiate use Z79.891 ; Chronic pain syndrome G89.4 ; Elevated fasting glucose R73.01 and Hypothyroidism, unspecified hypothyroidism type E03.9 [facility] [address] [address] Jan, [facility] [address] [address] Dec, Trochanteric bursitis of both hips M70.61 [facility] [address] [address] Dec, [facility] [address] [address] Dec, [facility] [address] [address] Nov, [facility] [address] [address] Nov, Unilateral headache R51 [facility] [address] [address] Nov, [facility] [address] [address] Oct, Unilateral headache R51 ; 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 and Allergy to intravenous contrast Z91.041 [facility] [address] [address] Oct, [facility] [address] [address] Oct, [facility] [id number] [place] [address] Sep, Hypothyroidism, unspecified hypothyroidism type E03.9 [facility] [id number] [place] [address] Sep, Hypothyroidism, unspecified hypothyroidism type E03.9 and Bilirubin in urine R82.2 [facility] [address] [address] Sep, Trochanteric bursitis of both hips M70.61 [facility] [id number] [place] [address] Sep, Hypothyroidism, unspecified hypothyroidism type E03.9 ; Dysuria R30.0 ; Chronic tension-type headache, not intractable G44.229 and Drug induced constipation K59.03 [facility] [address] [address] Sep, [facility] [address] [address] Sep, [facility] [address] [address] August, [facility] [address] [address] Jul, [facility] [address] [address] Jul, Trochanteric bursitis of right hip M70.61 [facility] [address] [address] Jul, Hypothyroidism, unspecified hypothyroidism type E03.9 [facility] [id number] [place] [address] Jul, Fibromyalgia M79.7 ; Chronic pain syndrome G89.4 ; Hypothyroidism, unspecified hypothyroidism type E03.9 and Other constipation K59.09 [facility] [id number] [place] [address] Jun, Swollen tonsil J35.1 and Strep throat J02.0 [facility] [address] [address] Jun, [facility] [address] [address] Jun, Acute maxillary sinusitis J01.00 [facility] [address] [place] [address] Jun, Hypothyroidism, unspecified hypothyroidism type E03.9 [facility] [id number] [place] [address] Jun, Chronic pain syndrome G89.4 ; Fibromyalgia M79.7 ; Hypothyroidism, unspecified hypothyroidism type E03.9 and Chronic prescription opiate use Z79.891 [facility] [address] [address] May, [facility] [id number] [place] [address] Apr, Hypothyroidism, unspecified hypothyroidism type E03.9 [facility] [id number] [place] [address] Apr, [facility] [address] [address] Apr, Lipid screening Z13.220 and Hypothyroidism, unspecified hypothyroidism type E03.9 [facility] [id number] [place] [address] Apr, [facility] [id number] [place] [address] Mar, Trochanteric bursitis of both hips M70.61 [facility] [id number] [place] [address] Mar, [facility] [id number] [place] [address] Mar, Plantar fasciitis M72.2 and Porokeratosis Q82.8 [facility] [address] [address] Feb, Lipid screening Z13.220 ; Vitamin D deficiency E55.9 and Hypothyroidism, unspecified hypothyroidism type E03.9 [facility] [id number] [place] [address] Feb, Chronic pain syndrome G89.4 ; Hypothyroidism, unspecified hypothyroidism type E03.9 ; Pancytopenia D61.818 ; Vaginal atrophy N95.2 ; Chronic gastritis without bleeding, unspecified gastritis type K29.50 ; Vitamin D deficiency E55.9 ; Chronic prescription opiate use Z79.891 ; Adverse effect of other opioids, initial encounter T40.2X5A ; Drug induced constipation K59.03 ; Lipid screening Z13.220 and Encounter for immunization Z23 [facility] [address] [address] Feb, [facility] [address] [address] Feb, Ingrown toenail L60.0 [facility] [address] [address] Jan, [facility] [address] [address] Jan, Trochanteric bursitis of both hips M70.61 [facility] [address] [address] Jan, [facility] [address] [address] Jan, [facility] [id number] [place] [address] Jan, [facility] [address] [address] Jan, Right sided sciatica M54.31 [facility] [id number] [place] [address] Dec, Onychomycosis B35.1 [facility] [address] [address] Dec, [facility] [id number] [place] [address] Dec, [facility] [address] [address] Dec, [facility] [id number] [place] [address] Dec, Osteoarthritis of right hip, unspecified osteoarthritis type M16.11 and Bursitis of right hip M70.71 [facility] [id number] [place] [address] Nov, [facility] [id number] [place] [address] Nov, [facility] [id number] [place] [address] Nov, [facility] [id number] [place] [address] Nov, Hypothyroidism, unspecified hypothyroidism type E03.9 ; Vitamin D deficiency E55.9 and History of hepatitis C Z86.19 [facility] [id number] [place] [address] Nov, Right upper quadrant pain R10.11 ; History of hepatitis C Z86.19 and Low back pain M54.5 [facility] [id number] [place] [address] Oct, Trochanteric bursitis, right hip M70.61 [facility] [address] [place] [address] Oct, [facility] [id number] [place] [address] Oct, [facility] [id number] [place] [address] Oct, Trochanteric bursitis of both hips M70.61 and Right sided sciatica M54.31 [facility] [address] [address] Oct, Trochanteric bursitis of both hips M70.61 [facility] [id number] [place] [address] 14 Oct, 2015 RUQ abdominal pain R10.11 [facility] [address] [address] 13 Oct, 2015 Sciatic leg pain M54.30 [facility] [address] [address] 11 Oct, 2015 RUQ abdominal pain R10.11 [facility] [address] [address] 07 Oct, 2015 RUQ abdominal pain R10.11 ; History of hepatitis C Z86.19 and Trigger point with back pain M54.9 [facility] [id number] [place] [address] Sep, [facility] [address] [address] Sep, Right sided sciatica M54.31 [facility] [id number] [place] [address] Sep, Hypothyroidism, unspecified hypothyroidism type E03.9 and Vitamin D deficiency E55.9 [facility] [id number] [place] [address] Sep, Plantar fasciitis M72.2 and Porokeratosis Q82.8 [facility] [id number] [place] [address] Sep, Hypothyroidism, unspecified hypothyroidism type E03.9 ; Chronic pain syndrome G89.4 ; Polyneuropathy associated with underlying disease G63 and Vitamin D deficiency E55.9 [facility] [address] [address] August, [facility] [id number] [place] [address] Jul, Plantar fasciitis M72.2 [facility] [address] [address] Jul, Trochanteric bursitis, right hip M70.61 [facility] [id number] [place] [address] 07 Jul, 2015 Hypothyroidism, unspecified hypothyroidism type E03.9 [facility] [id number] [place] [address] Jul, Hypothyroidism, unspecified hypothyroidism type E03.9 ; Chronic pain syndrome G89.4 and Polyneuropathy associated with underlying disease G63 [facility] [id number] [place] [address] 10 Jun, 2015 Trochanteric bursitis of both hips M70.61 [facility] [id number] [place] [address] 08 Jun, 2015 Vitamin D deficiency E55.9 ; Osteoporosis M81.0 ; Low back pain M54.5 and Plantar fasciitis M72.2 [facility] [id number] [place] [address] 26 May, 2015 Vitamin D deficiency E55.9 and Hypothyroidism, unspecified hypothyroidism type E03.9 [facility] [id number] [place] [address] 23 May, 2015 Acute maxillary sinusitis J01.00 [facility] [id number] [place] [address] 18 May, 2015 Osteoporosis M81.0 and Hypothyroidism, unspecified hypothyroidism type E03.9 [facility] [id number] [place] [address] 16 May, 2015 Osteoporosis M81.0 [facility] [id number] [place] [address] 15 May, 2015 [facility] [id number] [place] [address] Apr, [facility] [id number] [place] [address] Apr, Trochanteric bursitis of both hips M70.61 [facility] [id number] [place] [address] Apr, Hypothyroidism, unspecified hypothyroidism type E03.9 [facility] [id number] [place] [address] Apr, Chronic pain syndrome G89.4 ; Bilateral low back pain with sciatica, sciatica laterality unspecified M54.40 ; Pain in right hip M25.551 ; Pain in left hip M25.552 ; Chronic prescription opiate use Z79.899 ; Primary insomnia F51.01 and Hypothyroidism, unspecified hypothyroidism type E03.9 [facility] [address] [address] Mar, [facility] [address] [address] Feb, [facility] [address] [address] Feb, Chronic pain syndrome G89.4 and Major depression F32.9 [facility] [address] [address] Feb, Fatigue R53.83 [facility] [id number] [place] [address] Feb, History of fracture Z87.81 [facility] [address] [address] Feb, Major depression, recurrent F33.9 and Generalized anxiety disorder F41.1 [facility] [address] [address] Feb, [facility] [address] [address] Jan, Hypothyroidism, unspecified hypothyroidism type E03.9 [facility] [address] [address] Jan, Abdominal pain R10.9 and Hypothyroidism, unspecified hypothyroidism type E03.9 [facility] [id number] [place] [address] Jan, Abdominal pain R10.9 [facility] [id number] [place] [address] Jan, Hypothyroidism, unspecified hypothyroidism type E03.9 [facility] [address] [address] Jan, [facility] [address] [address] Jan, 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 and Hypothyroidism, unspecified hypothyroidism type E03.9 [facility] [id number] [place] [address] Jan, 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 ; Abdominal pain R10.9 ; Dyspareunia N94.1 ; Encounter for immunization Z23 ; History of fracture Z87.81 ; Fatigue R53.83 ; Throat fullness R68.89 ; Bruises easily R23.8 ; Hot flashes N95.1 ; Depression F32.9 and Vaginal atrophy N95.2 [facility] [id number] [place] [address] Jan, Hypothyroidism, unspecified hypothyroidism type E03.9 [facility] [address] [place] [address] Jan, Unspecified abdominal pain R10.9 ; Chronic obstructive pulmonary disease, unspecified COPD type J44.9 ; Allergic rhinitis, unspecified allergic rhinitis type J30.9 ; Chronic pain syndrome G89.4 ; Hypothyroidism, unspecified hypothyroidism type E03.9 ; Chest pain, unspecified chest pain type R07.9 and Plantar fasciitis M72.2 [facility] [id number] [place] [address] Jan, Trochanteric bursitis of both hips M70.61 [facility] [id number] [place] [address] Dec, [facility] [id number] [place] [address] Nov, [facility] [id number] [place] [address] Nov, [facility] [id number] [place] [address] Nov, Constipation 564.00 [facility] [address] [address] Oct, Chronic pain 338.29 and Hypothyroidism 244.9 [facility] [id number] [place] [address] Oct, [facility] [id number] [place] [address] Sep, [facility] [id number] [place] [address] Sep, [facility] [id number] [place] [address] Sep, [facility] [id number] [place] [address] Sep, [facility] [id number] [place] [address] Sep, [facility] [id number] [place] [address] Sep, [facility] [id number] [place] [address] Sep, COPD exacerbation 491.21 ; Chronic pain 338.29 ; Hypothyroidism 244.9 and Pancytopenia 284.19 [facility] [id number] [place] [address] August, [facility] [place] [facility] [address] [id number] [place] [address] Jul, [facility] [place] [facility] [address] [id number] [place] [address] Jul, [facility] [place] [facility] [address] [facility] [id number] [place] [id number] Jun, [facility] [place] [facility] [address] [id number] [place] [id number] Jun, [facility] [place] [facility] [address] [id number] [place] [id number] Jun, [facility] [place] [facility] [address] [id number] [place] [id number] Jun, [facility] [facility] [address] [id number] [address] Jun, [facility] [place] [facility] [address] [facility] [id number] [place] [address] May, [facility] [place] [facility] [address] [facility] [id number] [place] [address] May, [facility] [place] [facility] [address] [facility] [id number] [place] [address] May, [facility] [place] [facility] [address] [id number] [address] May, [facility] [place] [facility] [address] [facility] [id number], [place] [address] May, [facility] [place] [facility] [address] [id number] [place] [address] May, [facility] [place] [facility] [address] [facility] [id number] [place] [address] May, [facility] [place] [facility] [address] [facility] [id number] [place] [address] May, [facility] [place] [facility] [address] [id number] [place] [address] May, 2014 [facility] [place] [facility] [address] [id number] [place] [address] May, 2014 [facility] [place] [facility] [address] [id number] [place] [address] May, 2014 [facility] [place] [facility] [address] [id number] [place] [address] May, 2014 [facility] [place] [facility] [address] [id number] [place] [address] May, [facility] [place] [facility] [address] [id number] [place] [address] Apr, [facility] [place] [facility] [address] [id number] [place] [address] Apr, [facility] [place] [facility] [address] [id number] [place] [address] Apr, [facility] [place] [facility] [address] [id number] [place] [address] Apr, [facility] [place] [facility] [address] [facility] [id number] [place] [address] Apr, [facility] [place] [facility] [address] [id number] [place] [address] Apr, [facility] [place] [facility] [address] [id number] [place] [address] Apr, [facility] [place] [facility] [address] [id number] [place] [address] Mar, [facility] [place] [facility] [address] [id number] [place] [address] Mar, [facility] [place] [facility] [address] [id number] [place] [address] Mar, [facility] [place] [facility] [address] [id number], [place] [address] Mar, [facility] [place] [facility] [address] [id number] [place] [address] Mar, [facility] [place] [facility] [address] [id number] [place] [address] Mar, [facility] [place] [facility] [address] [id number] [place] [address] Feb, [facility] [place] [facility] [address] [id number] [place] [address] Feb, [facility] [place] [facility] [address] [id number] [place] [address] Feb, [facility] [place] [facility] [address] [id number] [place] [address] Feb, [facility] [place] [facility] [address] [id number] [place] [address] Feb, [facility] [place] [facility] [address] [id number] [place] [address] Feb, [facility] [place] [facility] [address] [id number] [place] [address] Jan, [facility] [place] [facility] [address] [id number] [place] [address] Jan, [facility] [place] [facility] [address] [id number], [place] [address] Jan, [facility] [place] [facility] [address] [id number], [place] [address] Jan, [facility] [place] [facility] [address] [id number] [place] [address] Jan, [facility] [place] [facility] [address] [id number], [place] [address] Jan, [facility] [place] [facility] [address] [id number], [place] [address] Jan, [facility] [place] [facility] [address] [id number] [place] [address] Jan, [facility] [place] [facility] [address] [id number] [place] [address] Dec, [facility] [place] [facility] [address] [id number] [place] [address] Dec, [facility] [place] [facility] [address] [id number] [place] [address] Dec, [facility] [place] [facility] [address] [id number] [place] [address] Dec, [facility] [place] [facility] [address] [id number] [place] [address] Dec, [facility] [place] [facility] [address] [id number] [place] [address] Dec, [facility] [place] [facility] [address] [id number] [place] [address] Dec, [facility] [place] [facility] [address] [id number] [place] [address] Nov, [facility] [place] [facility] [address] [id number] [place] [address] Nov, [facility] [place] [facility] [address] [id number] [place] [address] Oct, [facility] [place] [facility] [address] [id number] [place] [address] Oct, [facility] [place] [address] [id number] [place] [address] Oct, [facility] [place] [address] [id number] [place] [address] Oct, [facility] [place] [facility] [address] [id number] [place] [address] Sep, [facility] [place] [facility] [address] [id number] [place] [address] Sep, [facility] [place] [facility] [address] [id number] [place] [address] Sep, [facility] [place] [facility] [address] [id number] [place] [address] Sep, [facility] [facility] [address] [id number] [place] [address] Sep, [facility] [address] [id number] [place] [address] Sep, [facility] [address] [id number] [place] [address] Sep, [facility] [address] [id number] [place] [address] Sep, [facility] [address] [id number] [place] [address] August, [facility] [facility] [address] [id number] [place] [address] August, [facility] [address] [id number] [place] [address] August, [facility] [place] [facility] [address] [id number] [place] [address] August, [facility] [facility] [address] [id number] [place] [address] Jul, [facility] [address] [id number] [place] [address] Jul, [facility] [address] [id number] [place] [address] Jul, [facility] [facility] [address] [id number] [place] [address] Jul, [facility] [address] [id number] [place] [address] Jul, [facility] [address] [id number], [place] [address] 16 Jul, 2013 [facility] [address] [id number] [place] [address] 15 Jul, 2013 [facility] [address] [id number] [place] [address] 15 Jul, 2013 [facility] [place] [facility] [address] [id number] [place] [address] 18 Jun, 2013 [facility] [place] [facility] [address] [id number] [place] [address] 18 Jun, 2013 [facility] [place] [facility] [address] [id number] [place] [address] Jun, [facility] [place] [facility] [address] [id number] [place] [address] Jun, [facility] [address] [facility] [id number] [place] [address] Jun, [facility] [place] [facility] [address] [id number] [place] [address] Jun, [facility] [facility] [address] [id number] [place] [address] Jun, [facility] [place] [facility] [address] [id number] [place] [address] Jun, [facility] [address] [id number] [place] [address] May, [facility] [address] [id number] [place] [address] May, [facility] [address] [id number] [place] [address] Apr, [facility] [address] [id number] [place] [address] Apr, [facility] [address] [id number] [place] [address] Mar, [facility] [facility] [address] [id number] [place] [address] 24 Mar, 2013 [facility] [address] [id number] [place] [address] Mar, [facility] [address] [id number] [place] [address] 18 Mar, 2013 [facility] [address] [id number] [place] [address] Mar, [facility] [address] [id number] [place] [address] Mar, [facility] [place] [facility] [address] [id number] [place] [address] Mar, [facility] [place] [facility] [address] [id number] [place] [address] Feb, [facility] [address] [id number] [place] [address] Feb, [facility] [place] [facility] [address] [id number] [place] [address] Feb, [facility] [facility] [address] [id number] [place] [address] Feb, [facility] [address] [id number] [place] [address] Feb, [facility] [address] [id number] [place] [address] 04 Feb, 2013 [facility] [place] [facility] [address] [id number] [place] [address] 26 Dec, 2012 [facility] [address] [id number] [place] [address] 18 Sep2012 [facility] [facility] [address] [id number] [place] [address] 13 Dec, 2012 [facility] [facility] [address] [id number] [place] [address] Dec, [facility] [address] [id number] [place] [address] Dec, [facility] [address] [id number] [place] [address] Nov, [facility] [address] [id number] [place] [address] Nov, [facility] [address] [id number] [place] [address] Oct, [facility] [address] [id number] [place] [address] August, [facility] [address] [id number] [place] [address] August, [facility] [address] [id number] [place] [address] August, [facility] [address] [id number] [place] [address] Jul, [facility] [address] [id number] [place] [address] Jul, [facility] [place] [facility] [address] [id number] [place] [address] Jul, [facility] [address] [id number] [place] [address] Jun, [facility] [place] [facility] [address] [id number], [place] [address] Jun, [facility] [place] [facility] [address] [id number] [place] [address] Jun, [facility] [place] [facility] [address] [id number] [place] [address] Jun, [facility] [place] [facility] [address] [id number] [place] [address] 18 Jun, 2012 [facility] [place] [facility] [address] [id number] [place] [address] 15 Jun, 2012 [facility] [address] [id number] [place] [address] 12 Jun, 2012 [facility] [place] [facility] [address] [id number] [place] [address] 18 May, 2012 [facility] [address] [id number] [place] [address] 11 May, 2012 [facility] [address] [id number] [place] [address] 06 May, 2012 [facility] [address] [id number] [place] [address] 05 May, 2012 [facility] [address] [id number] [place] [address] Apr, [facility] [address] [id number] [place] [address] Apr, [facility] [address] [id number] [place] [address] Apr, [facility] [address] [facility] [id number] [place] [address] Mar, [facility] [address] [id number] [place] [address] Mar, [facility] [address] [id number] [place] [address] Mar, [facility] [address] [id number] [place] [address] Mar, [facility] [place] [facility] [address] [id number] [place] [address] Mar, [facility] [place] [facility] [address] [id number] [place] [address] Mar, [facility] [address] [facility] [id number] [place] [address] Mar, [facility] [place] [facility] [address] [id number] [place] [address] Mar, [facility] [place] [facility] [address] [id number] [place] [address] Feb, [facility] [place] [facility] [address] [id number] [place] [address] Feb, [facility] [place] [facility] [address] [id number] [place] [address] Feb, [facility] [place] [facility] [address] [id number] [place] [address] Jan, [facility] [place] [facility] [address] [id number] [place] [address] Jan, [facility] [place] [facility] [address] [id number] [place] [address] Jan, [facility] [place] [facility] [address] [id number] [place] [address] Jan, [facility] [place] [facility] [address] [id number] [place] [address] Jan, [facility] [place] [facility] [address] [id number] [place] [address] Jan, [facility] [place] [facility] [address] [id number] [place] [address] Jan, [facility] [place] [facility] [address] [id number], [place] [address] Dec, [facility] [place] [facility] [address] [id number] [place] [address] 24 Dec, 2011 [facility] [place] [facility] [address] [id number] [place] [address] Dec, [facility] [place] [facility] [address] [id number] [place] [address] 30 Nov, 2011 [facility] [place] [facility] [address] [id number] [place] [address] Nov, [facility] [place] [facility] [address] [id number] [place] [address] Nov, [facility] [place] [facility] [address] [id number] [place] [address] Nov, [facility] [place] [facility] [address] [id number] [place] [address] Oct, [facility] [place] [facility] [address] [id number] [place] [address] Oct, [facility] [place] [facility] [address] [id number] [place] [address] Oct, [facility] [place] [facility] [address] [id number] [place] [address] Sep, [facility] [place] [facility] [address] [id number] [place] [address] Sep, [facility] [place] [facility] [address] [id number] [place] [address] Sep, [facility] [place] [facility] [address] [id number] [place] [address] Sep, [facility] [place] [facility] [address] [id number] [place] [address] Sep, [facility] [place] [facility] [address] [id number] [place] [address] Sep, [facility] [place] [facility] [address] [id number] [place] [address] August, [facility] [place] [facility] [address] [id number] [place] [address] Jul, [facility] [place] [facility] [address] [id number] [place] [address] Jul, [facility] [place] [facility] [address] [id number] [place] [address] Jul, [facility] [place] [facility] [address] [id number] [place] [address] 05 Jul, 2011 [facility] [place] [facility] [address] [id number] [place] [address] 04 Jul, 2011 [facility] [place] [facility] [address] [id number] [place] [address] 29 Jun, 2011 [facility] [place] [facility] [address] [id number] [place] [address] 27 Jun, 2011 [facility] [place] [facility] [address] [id number] [place] [address] 15 Jun, 2011 [facility] [place] [facility] [address] [id number] [place] [address] 15 Jun, 2011 [facility] [place] [facility] [address] [facility] [id number] [place] [address] Jun, [facility] [place] [facility] [address] [id number] [place] [address] May, [facility] [place] [facility] [address] [id number] [place] [address] May, [facility] [place] [facility] [address] [id number] [place] [address] May, [facility] [place] [facility] [address] [id number] [address] May, [facility] [place] [facility] [address] [id number], [place] [address] May, [facility] [place] [facility] [address] [id number] [place] [address] May, [facility] [place] [facility] [address] [id number] [place] [address] May, [facility] [place] [facility] [address] [facility] [id number] [place] [address] Apr, [facility] [place] [facility] [address] [id number], [place] [address] 29 Mar, 2011 [facility] [place] [facility] [address] [id number] [place] [address] 13 Mar, 2011 [facility] [place] [facility] [address] [id number] [place] [address] Mar, [facility] [place] [facility] [address] [id number] [place] [address] Mar, [facility] [place] [facility] [address] [id number] [place] [address] 08 Mar, 2011 [facility] [place] [facility] [address] [id number] [place] [address] 23 Feb, 2011 [facility] [place] [facility] [address] [id number] [place] [address] 14 Feb, 2011 [facility] [place] [facility] [address] [facility] [id number] [place] [address] 14 Feb, 2011 [facility] [place] [facility] [address] [id number] [place] [address] 14 Feb, 2011 [facility] [place] [facility] [address] [facility] [id number] [place] [address] Feb, [facility] [place] [facility] [address] [facility] [id number] [place] [address] Feb, [facility] [place] [facility] [address] [id number] [place] [address] Feb, [facility] [place] [facility] [address] [id number] [address] Jan, [facility] [place] [facility] [address] [id number] [place] [address] 12 Dec, 2010 [facility] [place] [facility] [address] [id number] [place] [address] Oct, [facility] [place] [facility] [address] [facility] [id number] [place] [address] Jun, [facility] [place] [facility] [address] [id number] [place] [address] 23 Mar, 2010 [facility] [place] [facility] [address] [id number] [place] [address] 23 Mar, 2010 [facility] [place] [facility] [address] [id number] [place] [address] 16 Mar, 2010 [facility] [place] [facility] [address] [id number] [place] [address] 16 Mar, 2010 [facility] [place] [facility] [address] [id number] [place] [address] 15 Mar, 2010 [facility] [place] [facility] [address] [id number] [place] [address] 10 Mar, 2010 [facility] [place] [facility] [address] [id number] [place] [address] 10 Mar, 2010 [facility] [place] [facility] [address] [id number] [place] [address] 05 Mar, 2010 [facility] [place] [facility] [address] [id number] [place] [address] 03 Mar, 2010 [facility] [place] [facility] [address] [id number] [place] [address] 02 Mar, 2010 [facility] [place] [facility] [address] [id number] [place] [address] Jan, [facility] [place] [facility] [address] [id number] [place] [address] Jan, [facility] [place] [facility] [address] [id number] [place] [address] Jan, [facility] [place] [facility] [address] [id number] [place] [address] Nov, [facility] [place] [facility] [address] [id number] [place] [address] Oct, [facility] [place] [facility] [address] [id number] [place] [address] Mar, [facility] [address] [id number] [address] Mar, [facility] [id number] [address] Mar, [facility] [address] [id number] [address] Mar, [facility] [id number] [address] Dec, [facility] [id number] [address] August, [facility] [id number] [place] [address] August, [facility] [id number] [address] Jul, [facility] [id number] [address] Jan, [facility] [address] [id number] [address] Jan, IMMUNIZATIONS No Known Immunizations SOCIAL HISTORY Never Assessed REASON FOR VISIT Controlled Med Refill PLAN OF CARE VITAL SIGNS MEDICATIONS Medication Instructions Dosage Frequency Start Date End Date Duration Status Hydrocodone-Acetaminophen 10-325 MG Orally 2 times a day 1 tablet as needed 12h 10 Nov, 2017 28 days Active RESULTS No Results PROCEDURES [...]
--- OUTSIDE RECORDS SUMMARY | 2018-09-22 02:48 | XMS REPORT ---
Author Author FLORENTINEZEKIEL PUCKETT Organization [facility] Address [address] [place] [address] Care Team Providers Care Title I Teacher Name Role Phone DANICA LERMAY Unavailable PROBLEMS Type Condition ICD9-CM Code GGN84-WI Code Onset Dates Condition Status SNOMED Code Problem Chronic gastritis without bleeding, unspecified gastritis type K29.50 Active 6290275 Problem Vitamin D deficiency E55.9 Active 88197800 Problem Osteoporosis M81.0 Active 16160819 Problem Unspecified abdominal pain R10.9 Active 569376443 Problem Fibromyalgia M79.7 Active 48083653 Problem Chronic pain syndrome G89.4 Active 042657215 Problem Trigger point with back pain M54.9 Active 660760495 Problem Chronic tension-type headache, not intractable G44.229 Active 055181118 Problem RUQ abdominal pain R10.11 Active 418873522 Problem Pancytopenia D61.818 Active 571401744 Problem Right sided sciatica M54.31 Active 89482236 Problem Chronic prescription opiate use Z79.891 Active 489329423 Problem Drug induced constipation K59.03 Active 936161039944553 Problem Leukopenia, unspecified type D72.819 Active 39414687 Problem Atrial fibrillation, unspecified type I48.91 Active 55579581 Problem Allergic rhinitis, unspecified allergic rhinitis type J30.9 Active 59659086 Problem Chronic obstructive pulmonary disease, unspecified COPD type J44.9 Active 95670690 Problem Hypothyroidism, unspecified hypothyroidism type E03.9 Active 99696255 Problem Other constipation K59.09 Active 925715358 Problem Porokeratosis Q82.8 Active 094004026 Problem 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 Active 968862922 Problem Allergy to intravenous contrast Z91.041 Active 236810423 Problem Vaginal atrophy N95.2 Active 539016794 Problem Major depression, recurrent F33.9 Active 61938693 Problem History of hepatitis C Z86.19 Active 50280824675533 Problem Hot flashes N95.1 Active 761888222 Problem Plantar fasciitis M72.2 Active 126363704 Problem Polyneuropathy associated with underlying disease G63 Active 921906327 Problem Primary insomnia F51.01 Active 3549418 Problem Low back pain M54.5 Active 750781350 ALLERGIES No Information ENCOUNTERS Encounter Location Date Diagnosis [facility] [id number] [place] [address] Jan, [facility] [id number] [place] [address] Dec, Chronic pain syndrome G89.4 [facility] [id number] [place] [address] Nov, Onychocryptosis L60.0 [facility] [id number] [place] [address] Nov, Chronic pain syndrome G89.4 [facility] [id number] [place] [address] Nov, Trochanteric bursitis of both hips M70.61 [facility] [id number] [place] [address] Oct, Hypothyroidism, unspecified hypothyroidism type E03.9 and Atrial fibrillation, unspecified type I48.91 [facility] [id number] [place] [address] Oct, Fibromyalgia M79.7 ; Chronic pain syndrome G89.4 ; Hypothyroidism, unspecified hypothyroidism type E03.9 ; Overweight (BMI 25.0-29.9) E66.3 and Atrial fibrillation, unspecified type I48.91 [facility] [id number] [place] [address] Oct, Chronic pain syndrome G89.4 [facility] [id number] [place] [address] Sep, Chronic pain syndrome G89.4 [facility] [id number] [place] [address] August, Somatic dysfunction of lumbar region M99.03 and Somatic dysfunction of pelvis region M99.05 [facility] [id number] [place] [address] August, Chronic pain syndrome G89.4 [facility] [id number] [place] [address] Jul, Trochanteric bursitis of left hip M70.62 and Trochanteric bursitis, right hip M70.61 [facility] [id number] [place] [address] Jul, [facility] [id number] [place] [address] Jul, Chronic pain syndrome G89.4 [facility] [id number] [place] [address] Jul, Hypothyroidism, unspecified hypothyroidism type E03.9 [facility] [id number] [place] [address] Jul, Hypothyroidism, unspecified hypothyroidism type E03.9 [facility] [id number] [place] [address] Jul, Chronic tension-type headache, not intractable G44.229 ; Atrial fibrillation, unspecified type I48.91 ; Chronic pain syndrome G89.4 ; Hypothyroidism, unspecified hypothyroidism type E03.9 ; Pancytopenia D61.818 ; History of hepatitis C Z86.19 ; Vaginal atrophy N95.2 ; RUQ abdominal pain R10.11 ; Chronic prescription opiate use Z79.891 ; Osteoporosis M81.0 and Screening for breast cancer Z12.31 [facility] [id number] [place] [address] Jun, [facility] [id number] [place] [address] May, [facility] [place] [id number] [place] [address] May, [facility] [address] [address] May, [facility] [address] [place] [address] Apr, [facility] [address] [place] [address] Apr, Hypothyroidism, unspecified hypothyroidism type E03.9 [facility] [address] [place] [address] Apr, Hypothyroidism, unspecified hypothyroidism type E03.9 and Leukopenia, unspecified type D72.819 [facility] [place] [address] [place] [address] Mar, [facility] [place] [id number] [place] [address] Mar, Leukopenia, unspecified type D72.819 [facility] [address] [place] [address] Mar, Hypothyroidism, unspecified hypothyroidism type E03.9 and Low hemoglobin D64.9 [facility] [address] [address] Mar, Hypothyroidism, unspecified hypothyroidism type E03.9 [facility] [address] [address] Mar, Osteoporosis M81.0 ; Low hemoglobin D64.9 and Hypothyroidism, unspecified hypothyroidism type E03.9 [facility] [place] [address] [place] [address] Mar, Hypothyroidism, unspecified hypothyroidism type E03.9 ; Bilirubin in urine R82.2 and Pancytopenia D61.818 [facility] [address] [address] Feb, [facility] [id number] [place] [address] 18 Feb, 2017 Cough R05 and Bronchitis J40 [facility] [id number] [place] [address] 14 Feb, 2017 Other viral agents as the cause of diseases classified elsewhere B97.89 and Acute upper respiratory infection, unspecified J06.9 [place] [address] [address] Feb, Fibromyalgia M79.7 ; Chronic pain syndrome G89.4 ; Hypothyroidism, unspecified hypothyroidism type E03.9 ; Primary insomnia F51.01 ; Osteoporosis M81.0 ; Vision abnormalities H53.9 ; Pancytopenia D61.818 ; BMI 28.0-28.9,adult Z68.28 and Encounter for immunization Z23 [address] [address] Feb, Neuroma D36.10 and Capsulitis of right foot M77.51 [place] [place] [id number] [place] [address] Feb, [facility] [address] [address] Feb, Hypothyroidism, unspecified hypothyroidism type E03.9 [facility] [place] [id number] [place] [address] Jan, [facility] [place] [address] [address] Jan, Atrial fibrillation, unspecified type I48.91 [facility] [address] [address] Jan, [place] [place] [address] [address] Jan, Fibromyalgia M79.7 ; Atrial fibrillation, unspecified type I48.91 ; Pain of left hand M79.642 ; Pain in right hand M79.641 ; Chronic prescription opiate use Z79.891 ; Chronic pain syndrome G89.4 ; Elevated fasting glucose R73.01 and Hypothyroidism, unspecified hypothyroidism type E03.9 [facility] [address] [address] Jan, [facility] [address] [address] Dec, Trochanteric bursitis of both hips M70.61 [facility] [address] [address] Dec, [facility] [address] [address] Dec, [facility] [address] [address] Nov, [place] [address] [address] Nov, Unilateral headache R51 [facility] [address] [address] Nov, [facility] [address] [address] Oct, Unilateral headache R51 ; 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 and Allergy to intravenous contrast Z91.041 [facility] [address] [address] Oct, [facility] [address] [address] Oct, [facility] [id number] [place] [address] Sep, Hypothyroidism, unspecified hypothyroidism type E03.9 [facility] [id number] [place] [address] Sep, Hypothyroidism, unspecified hypothyroidism type E03.9 and Bilirubin in urine R82.2 [place] [address] [address] Sep, Trochanteric bursitis of both hips M70.61 [facility] [id number] [place] [address] Sep, Hypothyroidism, unspecified hypothyroidism type E03.9 ; Dysuria R30.0 ; Chronic tension-type headache, not intractable G44.229 and Drug induced constipation K59.03 [facility] [address] [address] Sep, [facility] [address] [address] Sep, [facility] [address] [address] August, [facility] [address] [address] Jul, [facility] [address] [address] Jul, Trochanteric bursitis of right hip M70.61 [facility] [address] [address] Jul, Hypothyroidism, unspecified hypothyroidism type E03.9 [facility] [id number] [place] [address] Jul, Fibromyalgia M79.7 ; Chronic pain syndrome G89.4 ; Hypothyroidism, unspecified hypothyroidism type E03.9 and Other constipation K59.09 [facility] [id number] [place] [address] Jun, Swollen tonsil J35.1 and Strep throat J02.0 [facility] [address] [address] Jun, [facility] [address] [address] Jun, Acute maxillary sinusitis J01.00 [facility] [address] [place] [address] Jun, Hypothyroidism, unspecified hypothyroidism type E03.9 [facility] [id number] [place] [address] Jun, Chronic pain syndrome G89.4 ; Fibromyalgia M79.7 ; Hypothyroidism, unspecified hypothyroidism type E03.9 and Chronic prescription opiate use Z79.891 [place] [address] [address] May, [facility] [id number] [place] [address] Apr, Hypothyroidism, unspecified hypothyroidism type E03.9 [facility] [id number] [place] [address] Apr, [place] [address] [address] Apr, Lipid screening Z13.220 and Hypothyroidism, unspecified hypothyroidism type E03.9 [facility] [place] [id number] [place] [address] Apr, [facility] [id number] [place] [address] Mar, Trochanteric bursitis of both hips M70.61 [facility] [id number] [place] [address] Mar, [place] [place] [id number] [place] [address] Mar, Plantar fasciitis M72.2 and Porokeratosis Q82.8 [facility] [address] [address] Feb, Lipid screening Z13.220 ; Vitamin D deficiency E55.9 and Hypothyroidism, unspecified hypothyroidism type E03.9 [facility] [id number] [place] [address] Feb, Chronic pain syndrome G89.4 ; Hypothyroidism, unspecified hypothyroidism type E03.9 ; Pancytopenia D61.818 ; Vaginal atrophy N95.2 ; Chronic gastritis without bleeding, unspecified gastritis type K29.50 ; Vitamin D deficiency E55.9 ; Chronic prescription opiate use Z79.891 ; Adverse effect of other opioids, initial encounter T40.2X5A ; Drug induced constipation K59.03 ; Lipid screening Z13.220 and Encounter for immunization Z23 [facility] [address] [address] Feb, [facility] [address] [address] Feb, Ingrown toenail L60.0 [place] [address] [address] Jan, [place] [address] [address] Jan, Trochanteric bursitis of both hips M70.61 [place] [address] [address] Jan, [place] [place] [address] [address] Jan, [facility] [id number] [place] [address] Jan, [place] [address] [address] Jan, Right sided sciatica M54.31 [facility] [id number] [place] [address] Dec, Onychomycosis B35.1 [place] [address] [address] Dec, [facility] [id number] [place] [address] Dec, [facility] [address] [address] Dec, [facility] [id number] [place] [address] Dec, Osteoarthritis of right hip, unspecified osteoarthritis type M16.11 and Bursitis of right hip M70.71 [facility] [id number] [place] [address] Nov, [facility] [id number] [place] [address] Nov, [facility] [id number] [place] [address] Nov, [facility] [id number] [place] [address] Nov, Hypothyroidism, unspecified hypothyroidism type E03.9 ; Vitamin D deficiency E55.9 and History of hepatitis C Z86.19 [place] [place] [id number] [place] [address] Nov, Right upper quadrant pain R10.11 ; History of hepatitis C Z86.19 and Low back pain M54.5 [facility] [id number] [place] [address] Oct, Trochanteric bursitis, right hip M70.61 [facility] [address] [place] [address] Oct, [facility] [id number] [place] [address] Oct, [facility] [id number] [place] [address] Oct, Trochanteric bursitis of both hips M70.61 and Right sided sciatica M54.31 [facility] [address], [place] [address] Oct, Trochanteric bursitis of both hips M70.61 [facility] [id number] [place] [address] 14 Oct, 2015 RUQ abdominal pain R10.11 [place] [address] [address] 13 Oct, 2015 Sciatic leg pain M54.30 [place] [address] [address] 11 Oct, 2015 RUQ abdominal pain R10.11 [place] [address] [address] 07 Oct, 2015 RUQ abdominal pain R10.11 ; History of hepatitis C Z86.19 and Trigger point with back pain M54.9 [place] [place] [id number] [place] [address] Sep, [place] [address] [address] Sep, Right sided sciatica M54.31 [place] [place] [id number] [place] [address] Sep, Hypothyroidism, unspecified hypothyroidism type E03.9 and Vitamin D deficiency E55.9 [place] [place] [id number] [place] [address] Sep, Plantar fasciitis M72.2 and Porokeratosis Q82.8 [place] [id number] [place] [address] Sep, Hypothyroidism, unspecified hypothyroidism type E03.9 ; Chronic pain syndrome G89.4 ; Polyneuropathy associated with underlying disease G63 and Vitamin D deficiency E55.9 [place] [address] [address] August, [place] [place] [id number] [place] [address] Jul, Plantar fasciitis M72.2 [place] [place] [address] [address] Jul, Trochanteric bursitis, right hip M70.61 [place] [place] [id number] [place] [address] 07 Jul, 2015 Hypothyroidism, unspecified hypothyroidism type E03.9 [place] [place] [id number] [place] [address] Jul, Hypothyroidism, unspecified hypothyroidism type E03.9 ; Chronic pain syndrome G89.4 and Polyneuropathy associated with underlying disease G63 [facility] [id number] [place] [address] 10 Jun, 2015 Trochanteric bursitis of both hips M70.61 [facility] [id number] [place] [address] 08 Jun, 2015 Vitamin D deficiency E55.9 ; Osteoporosis M81.0 ; Low back pain M54.5 and Plantar fasciitis M72.2 [place] [place] [id number] [place] [address] 26 May, 2015 Vitamin D deficiency E55.9 and Hypothyroidism, unspecified hypothyroidism type E03.9 [place] [place] [id number] [place] [address] 23 May, 2015 Acute maxillary sinusitis J01.00 [place] [place] [id number] [place] [address] 18 May, 2015 Osteoporosis M81.0 and Hypothyroidism, unspecified hypothyroidism type E03.9 [place] [id number] [place] [address] 16 May, 2015 Osteoporosis M81.0 [place] [place] [id number] [place] [address] 15 May, 2015 [place] [id number] [place] [address] Apr, [place] [id number] [place] [address] Apr, Trochanteric bursitis of both hips M70.61 [place] [id number] [place] [address] Apr, Hypothyroidism, unspecified hypothyroidism type E03.9 [place] [id number] [place] [address] Apr, Chronic pain syndrome G89.4 ; Bilateral low back pain with sciatica, sciatica laterality unspecified M54.40 ; Pain in right hip M25.551 ; Pain in left hip M25.552 ; Chronic prescription opiate use Z79.899 ; Primary insomnia F51.01 and Hypothyroidism, unspecified hypothyroidism type E03.9 [place] [address] [address] Mar, [place] [address] [address] Feb, [place] [address] [address] Feb, Chronic pain syndrome G89.4 and Major depression F32.9 [place] [address] [address] Feb, Fatigue R53.83 [place] [id number] [place] [address] Feb, History of fracture Z87.81 [place] [address] [address] Feb, Major depression, recurrent F33.9 and Generalized anxiety disorder F41.1 [place] [address] [address] Feb, [place] [address] [address] Jan, Hypothyroidism, unspecified hypothyroidism type E03.9 [place] [address] [address] Jan, Abdominal pain R10.9 and Hypothyroidism, unspecified hypothyroidism type E03.9 [place] [place] [id number] [place] [address] Jan, Abdominal pain R10.9 [place] [place] [id number] [place] [address] Jan, Hypothyroidism, unspecified hypothyroidism type E03.9 [place] [address] [address] Jan, [place] [address] [address] Jan, 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 and Hypothyroidism, unspecified hypothyroidism type E03.9 [place] [place] [id number] [place] [address] Jan, 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 ; Abdominal pain R10.9 ; Dyspareunia N94.1 ; Encounter for immunization Z23 ; History of fracture Z87.81 ; Fatigue R53.83 ; Throat fullness R68.89 ; Bruises easily R23.8 ; Hot flashes N95.1 ; Depression F32.9 and Vaginal atrophy N95.2 [place] [id number] [place] [address] Jan, Hypothyroidism, unspecified hypothyroidism type E03.9 [place] [address] [place] [address] Jan, Unspecified abdominal pain R10.9 ; Chronic obstructive pulmonary disease, unspecified COPD type J44.9 ; Allergic rhinitis, unspecified allergic rhinitis type J30.9 ; Chronic pain syndrome G89.4 ; Hypothyroidism, unspecified hypothyroidism type E03.9 ; Chest pain, unspecified chest pain type R07.9 and Plantar fasciitis M72.2 [place] [id number] [place] [address] Jan, Trochanteric bursitis of both hips M70.61 [facility] [id number] [place] [id number] Dec, [facility] [id number] [place] [id number] Nov, [facility] [id number] [place] [address] Nov, [facility] [id number] [place] [address] Nov, Constipation 564.00 [facility] [address] [id number] Oct, Chronic pain 338.29 and Hypothyroidism 244.9 [facility] [id number] [place] [address] Oct, [facility] [id number] [place] [address] Sep, [facility] [id number] [place] [id number] Sep, [facility] [id number] [place] [address] Sep, [facility] [id number] [place] [address] Sep, [facility] [id number] [place] [id number] Sep, [facility] [id number] [place] [address] Sep, [facility] [id number] [place] [address] Sep, COPD exacerbation 491.21 ; Chronic pain 338.29 ; Hypothyroidism 244.9 and Pancytopenia 284.19 [facility] [id number] [place] [id number] August, [facility] [place] [facility] [address] [id number] [place] [id number] Jul, [facility] [place] [facility] [address] [id number] [place] [address] Jul, [facility] [place] [facility] [address] [facility] [id number] [place] [address] Jun, [facility] [place] [facility] [address] [id number] [place] [address] Jun, [facility] [place] [facility] [address] [id number] [place] [address] Jun, [facility] [place] [facility] [address] [id number] [place] [address] Jun, [facility] [place] [facility] [address] [id number] [place] [address] Jun, [facility] [place] [facility] [address] [facility] [id number] [place] [address] May, [facility] [place] [facility] [address] [facility] [id number] [place] [address] May, [facility] [place] [facility] [address] [facility] [id number] [place] [address] May, [facility] [place] [facility] [address] [id number] [address] May, [facility] [place] [facility] [address] [facility] [id number], [place] [address] May, [facility] [place] [facility] [address] [id number] [place] [address] May, [facility] [place] [facility] [address] [facility] [id number] [place] [address] May, [facility] [place] [facility] [address] [facility] [id number] [place] [address] May, [facility] [place] [facility] [address] [id number] [place] [address] May, 2014 [facility] [place] [facility] [address] [id number] [place] [address] May, 2014 [facility] [place] [facility] [address] [id number] [place] [address] May, 2014 [facility] [place] [facility] [address] [id number] [place] [address] May, 2014 [facility] [place] [facility] [address] [id number] [place] [address] May, [facility] [place] [facility] [address] [id number] [place] [address] Apr, [facility] [place] [facility] [address] [id number] [place] [address] Apr, [facility] [place] [facility] [address] [id number] [place] [address] Apr, [facility] [place] [facility] [address] [id number] [place] [address] Apr, [facility] [place] [facility] [address] [facility] [id number] [place] [address] Apr, [facility] [place] [facility] [address] [id number] [place] [address] Apr, [facility] [place] [facility] [address] [id number] [place] [address] Apr, [facility] [place] [facility] [address] [id number] [place] [address] Mar, [facility] [place] [facility] [address] [id number] [place] [address] Mar, [facility] [place] [facility] [address] [id number] [place] [address] Mar, [facility] [place] [facility] [address] [id number], [place] [address] Mar, [facility] [place] [facility] [address] [id number] [place] [address] Mar, [facility] [place] [facility] [address] [id number] [place] [address] Mar, [facility] [place] [facility] [address] [id number] [place] [address] Feb, [facility] [place] [facility] [address] [id number] [place] [address] Feb, [facility] [place] [facility] [address] [id number] [place] [address] Feb, [facility] [place] [facility] [address] [id number] [place] [address] Feb, [facility] [place] [facility] [address] [id number] [place] [address] Feb, [facility] [place] [facility] [address] [id number] [place] [address] Feb, [facility] [place] [facility] [address] [id number] [place] [address] Jan, [facility] [place] [facility] [address] [id number] [place] [address] Jan, [facility] [place] [facility] [address] [id number], [place] [address] Jan, [facility] [place] [facility] [address] [id number], [place] [address] Jan, [facility] [place] [facility] [address] [id number] [place] [address] Jan, [facility] [place] [facility] [address] [id number], [place] [address] Jan, [facility] [place] [facility] [address] [id number], [place] [address] Jan, [facility] [place] [facility] [address] [id number] [place] [address] Jan, [facility] [place] [facility] [address] [id number] [place] [address] Dec, [facility] [place] [facility] [address] [id number] [place] [address] Dec, [facility] [place] [facility] [address] [id number] [place] [address] Dec, [facility] [place] [facility] [address] [id number] [place] [address] Dec, [facility] [place] [facility] [address] [id number] [place] [address] Dec, [facility] [place] [facility] [address] [id number] [place] [address] Dec, [facility] [place] [facility] [address] [id number] [place] [address] Dec, [facility] [place] [facility] [address] [id number] [place] [address] Nov, [facility] [place] [facility] [address] [id number] [place] [address] Nov, [facility] [place] [facility] [address] [id number] [place] [address] Oct, [facility] [place] [facility] [address] [id number] [place] [address] Oct, [facility] [place] [facility] [address] [id number] [place] [address] Oct, [facility] [place] [facility] [address] [id number] [place] [address] Oct, [facility] [place] [facility] [address] [id number] [place] [address] Sep, [facility] [place] [facility] [address] [id number] [place] [address] Sep, [facility] [place] [facility] [address] [id number] [place] [address] Sep, [facility] [place] [facility] [address] [id number] [place] [address] Sep, [facility] [place] [facility] [address] [id number] [place] [address] Sep, [facility] [place] [facility] [address] [id number] [place] [address] Sep, [facility] [place] [facility] [address] [id number] [place] [address] Sep, [facility] [place] [facility] [address] [id number] [place] [address] Sep, [facility] [place] [facility] [address] [id number] [place] [address] August, [facility] [place] [facility] [address] [id number] [place] [address] August, [facility] [place] [facility] [address] [id number] [place] [address] August, [facility] [place] [facility] [address] [id number] [place] [address] August, [facility] [place] [facility] [address] [id number] [place] [address] Jul, [facility] [place] [facility] [address] [id number] [place] [address] Jul, [facility] [place] [facility] [address] [id number] [place] [address] Jul, [facility] [place] [facility] [address] [id number] [place] [address] Jul, [facility] [place] [facility] [address] [id number] [place] [address] Jul, [facility] [place] [facility] [address] [id number], [place] [address] 16 Jul, 2013 [facility] [address] [id number] [place] [address] 15 Jul, 2013 [facility] [place] [facility] [address] [id number] [place] [address] 15 Jul, 2013 [facility] [place] [facility] [address] [id number] [place] [address] 18 Jun, 2013 [facility] [place] [facility] [address] [id number] [place] [address] 18 Jun, 2013 [facility] [place] [facility] [address] [id number] [place] [address] Jun, [facility] [place] [facility] [address] [id number] [place] [address] Jun, [facility] [place] [facility] [address] [facility] [id number] [place] [address] Jun, [facility] [place] [facility] [address] [id number] [place] [address] Jun, [facility] [place] [facility] [address] [id number] [place] [address] Jun, [facility] [place] [facility] [address] [id number] [place] [address] Jun, [facility] [place] [facility] [address] [id number] [place] [address] May, [facility] [place] [facility] [address] [id number] [place] [address] May, [facility] [place] [facility] [address] [id number] [place] [address] Apr, [facility] [place] [facility] [address] [id number] [place] [address] Apr, [facility] [place] [facility] [address] [id number] [place] [address] Mar, [facility] [place] [facility] [address] [id number] [place] [address] 24 Mar, 2013 [facility] [place] [facility] [address] [id number] [place] [address] Mar, [facility] [place] [facility] [address] [id number] [place] [address] 18 Mar, 2013 [facility] [place] [facility] [address] [id number] [place] [address] Mar, [facility] [place] [facility] [address] [id number] [place] [address] Mar, [facility] [place] [facility] [address] [id number] [place] [address] Mar, [facility] [place] [facility] [address] [id number] [place] [address] Feb, [facility] [place] [facility] [address] [id number] [place] [address] Feb, [facility] [place] [facility] [address] [id number] [place] [address] Feb, [facility] [place] [facility] [address] [id number] [place] [address] Feb, [facility] [place] [facility] [address] [id number] [place] [address] Feb, [facility] [place] [facility] [address] [id number] [place] [address] 04 Feb, 2013 [facility] [place] [facility] [address] [id number] [place] [address] 26 Dec, 2012 [facility] [place] [facility] [address] [id number] [place] [address] 18 Sep2012 [facility] [place] [facility] [address] [id number] [place] [address] 13 Dec, 2012 [facility] [place] [facility] [address] [id number] [place] [address] Dec, [facility] [address] [id number] [place] [address] Dec, [facility] [address] [id number] [place] [address] Nov, [facility] [address] [id number] [place] [address] Nov, [facility] [address] [id number] [place] [address] Oct, [facility] [address] [id number] [place] [address] August, [facility] [address] [id number] [place] [address] August, [facility] [address] [id number] [place] [address] August, [facility] [address] [id number] [place] [address] Jul, [facility] [address] [id number] [place] [address] Jul, [facility] [place] [facility] [address] [id number] [place] [address] Jul, [facility] [address] [id number] [place] [address] Jun, [facility] [place] [facility] [address] [id number], [place] [address] Jun, [facility] [place] [facility] [address] [id number] [place] [address] Jun, [facility] [place] [facility] [address] [id number] [place] [address] Jun, [facility] [place] [facility] [address] [id number] [place] [address] 18 Jun, 2012 [facility] [place] [facility] [address] [id number] [place] [address] 15 Jun, 2012 [facility] [address] [id number] [place] [address] 12 Jun, 2012 [facility] [place] [facility] [address] [id number] [place] [address] 18 May, 2012 [facility] [address] [id number] [place] [address] 11 May, 2012 [facility] [address] [id number] [place] [address] 06 May, 2012 [facility] [address] [id number] [place] [address] 05 May, 2012 [facility] [address] [id number] [place] [address] Apr, [facility] [address] [id number] [place] [address] Apr, [facility] [address] [id number] [place] [address] Apr, [facility] [address] [facility] [id number] [place] [address] Mar, [facility] [address] [id number] [place] [address] Mar, [facility] [address] [id number] [place] [address] Mar, [facility] [address] [id number] [place] [address] Mar, [facility] [place] [facility] [address] [id number] [place] [address] Mar, [facility] [place] [facility] [address] [id number] [place] [address] Mar, [facility] [address] [facility] [id number] [place] [address] Mar, [facility] [place] [facility] [address] [id number] [place] [address] Mar, [facility] [place] [facility] [address] [id number] [place] [address] Feb, [facility] [place] [facility] [address] [id number] [place] [address] Feb, [facility] [place] [facility] [address] [id number] [place] [address] Feb, [facility] [place] [facility] [address] [id number] [place] [address] Jan, [facility] [place] [facility] [address] [id number] [place] [address] Jan, [facility] [place] [facility] [address] [id number] [place] [address] Jan, [facility] [place] [facility] [address] [id number] [place] [address] Jan, [facility] [place] [facility] [address] [id number] [place] [address] Jan, [facility] [place] [facility] [address] [id number] [place] [address] Jan, [facility] [place] [facility] [address] [id number] [place] [address] Jan, [facility] [place] [facility] [address] [id number], [place] [address] Dec, [facility] [place] [facility] [address] [id number] [place] [address] 24 Dec, 2011 [facility] [place] [facility] [address] [id number] [place] [address] Dec, [facility] [place] [facility] [address] [id number] [place] [address] 30 Nov, 2011 [facility] [place] [facility] [address] [id number] [place] [address] Nov, [facility] [place] [facility] [address] [id number] [place] [address] Nov, [facility] [place] [facility] [address] [id number] [place] [address] Nov, [facility] [place] [facility] [address] [id number] [place] [address] Oct, [facility] [place] [facility] [address] [id number] [place] [address] Oct, [facility] [place] [facility] [address] [id number] [place] [address] Oct, [facility] [place] [facility] [address] [id number] [place] [address] Sep, [facility] [place] [facility] [address] [id number] [place] [address] Sep, [facility] [place] [facility] [address] [id number] [place] [address] Sep, [facility] [place] [facility] [address] [id number] [place] [address] Sep, [facility] [place] [facility] [address] [id number] [place] [address] Sep, [facility] [place] [facility] [address] [id number] [place] [address] Sep, [facility] [place] [facility] [address] [id number] [place] [address] August, [facility] [place] [facility] [address] [id number] [place] [address] Jul, [facility] [place] [facility] [address] [id number] [place] [address] Jul, [facility] [place] [facility] [address] [id number] [place] [address] Jul, [facility] [place] [facility] [address] [id number] [place] [address] 05 Jul, 2011 [facility] [place] [facility] [address] [id number] [place] [address] 04 Jul, 2011 [facility] [place] [facility] [address] [id number] [place] [address] 29 Jun, 2011 [facility] [place] [facility] [address] [id number] [place] [address] 27 Jun, 2011 [facility] [place] [facility] [address] [id number] [place] [address] 15 Jun, 2011 [facility] [place] [facility] [address] [id number] [place] [address] 15 Jun, 2011 [facility] [place] [facility] [address] [facility] [id number] [place] [address] Jun, [facility] [place] [facility] [address] [id number] [place] [address] May, [facility] [place] [facility] [address] [id number] [place] [address] May, [facility] [place] [facility] [address] [id number] [place] [address] May, [facility] [place] [facility] [address] [id number] [place] [address] May, [facility] [place] [facility] [address] [id number], [place] [address] May, [facility] [place] [facility] [address] [id number] [place] [address] May, [facility] [place] [facility] [address] [id number] [place] [address] May, [facility] [place] [facility] [address] [facility] [id number] [place] [address] Apr, [facility] [place] [facility] [address] [id number], [place] [address] 29 Mar, 2011 [facility] [place] [facility] [address] [id number] [place] [address] 13 Mar, 2011 [facility] [place] [facility] [address] [id number] [place] [address] Mar, [facility] [place] [facility] [address] [id number] [place] [address] Mar, [facility] [place] [facility] [address] [id number] [place] [address] 08 Mar, 2011 [facility] [place] [facility] [address] [id number] [place] [address] 23 Feb, 2011 [facility] [place] [facility] [address] [id number] [place] [address] 14 Feb, 2011 [facility] [place] [facility] [address] [facility] [id number] [place] [address] 14 Feb, 2011 [facility] [place] [facility] [address] [id number] [place] [address] 14 Feb, 2011 [facility] [place] [facility] [address] [facility] [id number] [place] [address] Feb, [facility] [place] [facility] [address] [facility] [id number] [place] [address] Feb, [facility] [place] [facility] [address] [id number] [place] [address] Feb, [facility] [place] [facility] [address] [id number], [place] [address] Jan, [facility] [place] [facility] [address] [id number] [place] [address] 12 Dec, 2010 [facility] [place] [facility] [address] [id number] [place] [address] Oct, [facility] [place] [facility] [address] [facility] [id number] [place] [address] Jun, [facility] [place] [facility] [address] [id number] [place] [address] 23 Mar, 2010 [facility] [place] [facility] [address] [id number] [place] [address] 23 Mar, 2010 [facility] [place] [facility] [address] [id number] [place] [address] 16 Mar, 2010 [facility] [place] [facility] [address] [id number] [place] [address] 16 Mar, 2010 [facility] [place] [facility] [address] [id number] [place] [address] 15 Mar, 2010 [facility] [place] [facility] [address] [id number] [place] [address] 10 Mar, 2010 [facility] [place] [facility] [address] [id number] [place] [address] 10 Mar, 2010 [facility] [place] [facility] [address] [id number] [place] [address] 05 Mar, 2010 [facility] [place] [facility] [address] [id number] [place] [address] 03 Mar, 2010 [facility] [place] [facility] [address] [id number] [place] [address] 02 Mar, 2010 [facility] [place] [facility] [address] [id number] [place] [address] Jan, [facility] [place] [facility] [address] [id number] [place] [address] Jan, [facility] [place] [facility] [address] [id number] [place] [address] Jan, [facility] [place] [facility] [address] [id number] [place] [address] Nov, [facility] [place] [facility] [address] [id number] [place] [address] Oct, [facility] [place] [facility] [address] [id number] [place] [address] Mar, [facility] [address] [id number] [address] Mar, [facility] [address] [facility] [id number], [place] [address] Mar, [facility] [address] [id number] [address] Mar, [facility] [address] [facility] [id number], [place] [address] Dec, [facility] [id number] [address] August, [facility] [id number], [place] [address] August, [facility] [id number], [place] [address] Jul, [facility] [id number], [place] [address] Jan, [facility] [address] [id number], [place] [address] Jan, IMMUNIZATIONS No Known Immunizations SOCIAL HISTORY Never Assessed REASON FOR VISIT Deferred lab/med refill PLAN OF CARE VITAL SIGNS MEDICATIONS Medication Instructions Dosage Frequency Start Date End Date Duration Status Metoprolol Succinate ER 50 mg Orally Once a day 1 tablet 24h Active Synthroid 175 MCG Orally Once a [...]
--- OUTSIDE RECORDS SUMMARY | 2018-09-22 02:49 | XMS REPORT ---
Author Author FLORENTINEZEKIEL PUCKETT Organization [facility] Address [address] [place] [address] Care Team Providers Care Senior Applications Architect Name Role Phone DANICA LERMAY Unavailable PROBLEMS Type Condition ICD9-CM Code VYO72-CO Code Onset Dates Condition Status SNOMED Code Problem Chronic gastritis without bleeding, unspecified gastritis type K29.50 Active 8550302 Problem Vitamin D deficiency E55.9 Active 30991427 Problem Osteoporosis M81.0 Active 82663264 Problem Unspecified abdominal pain R10.9 Active 513374003 Problem Fibromyalgia M79.7 Active 73435811 Problem Chronic pain syndrome G89.4 Active 683422699 Problem Trigger point with back pain M54.9 Active 400481022 Problem Chronic tension-type headache, not intractable G44.229 Active 225232080 Problem RUQ abdominal pain R10.11 Active 136403388 Problem Pancytopenia D61.818 Active 342682468 Problem Right sided sciatica M54.31 Active 40729071 Problem Chronic prescription opiate use Z79.891 Active 761009564 Problem Drug induced constipation K59.03 Active 363616415703535 Problem Leukopenia, unspecified type D72.819 Active 28070651 Problem Atrial fibrillation, unspecified type I48.91 Active 69207465 Problem Allergic rhinitis, unspecified allergic rhinitis type J30.9 Active 54271473 Problem Chronic obstructive pulmonary disease, unspecified COPD type J44.9 Active 82597269 Problem Hypothyroidism, unspecified hypothyroidism type E03.9 Active 34316344 Problem Other constipation K59.09 Active 181178948 Problem Porokeratosis Q82.8 Active 308074638 Problem 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 Active 543562723 Problem Allergy to intravenous contrast Z91.041 Active 144541953 Problem Vaginal atrophy N95.2 Active 517279018 Problem Major depression, recurrent F33.9 Active 69128988 Problem History of hepatitis C Z86.19 Active 63857568138430 Problem Hot flashes N95.1 Active 687624120 Problem Plantar fasciitis M72.2 Active 839849524 Problem Polyneuropathy associated with underlying disease G63 Active 785056362 Problem Primary insomnia F51.01 Active 6806937 Problem Low back pain M54.5 Active 472040262 ALLERGIES Substance Reaction Event Type Date Status Diazepam Unknown Drug Allergy Oct, Active CT Dye Unknown Non Drug Allergy Oct, Active ENCOUNTERS Encounter Location Date Diagnosis [place] [address] [address] Jan, [place] [address] [address] Dec, Chronic pain syndrome G89.4 [place] [address] [address] Nov, Onychocryptosis L60.0 [place] [address] [address] Nov, Chronic pain syndrome G89.4 [place] [address] [address] Nov, Trochanteric bursitis of both hips M70.61 [place] [address] [place] [id number] [place] [address] Oct, Hypothyroidism, unspecified hypothyroidism type E03.9 and Atrial fibrillation, unspecified type I48.91 [place] [address] [place] [id number] [place] [address] Oct, Fibromyalgia M79.7 ; Chronic pain syndrome G89.4 ; Hypothyroidism, unspecified hypothyroidism type E03.9 ; Overweight (BMI 25.0-29.9) E66.3 and Atrial fibrillation, unspecified type I48.91 [place] [address] [place] [id number] [place] [address] Oct, Chronic pain syndrome G89.4 [place] [address] [place] [id number] [place] [address] Sep, Chronic pain syndrome G89.4 [place] [id number] [place] [address] August, Somatic dysfunction of lumbar region M99.03 and Somatic dysfunction of pelvis region M99.05 [place] [address] [place] [id number] [place] [address] August, Chronic pain syndrome G89.4 [place] [address] [place] [id number] [place] [address] Jul, Trochanteric bursitis of left hip M70.62 and Trochanteric bursitis, right hip M70.61 [place] [address] [place] [id number] [place] [address] Jul, [place] [address] [place] [id number] [place] [address] Jul, Chronic pain syndrome G89.4 [place] [address] [place] [id number] [place] [address] Jul, Hypothyroidism, unspecified hypothyroidism type E03.9 [place] [address] [place] [id number] [place] [address] Jul, Hypothyroidism, unspecified hypothyroidism type E03.9 [place] [address] [place] [id number] [place] [address] Jul, Chronic tension-type headache, not intractable G44.229 ; Atrial fibrillation, unspecified type I48.91 ; Chronic pain syndrome G89.4 ; Hypothyroidism, unspecified hypothyroidism type E03.9 ; Pancytopenia D61.818 ; History of hepatitis C Z86.19 ; Vaginal atrophy N95.2 ; RUQ abdominal pain R10.11 ; Chronic prescription opiate use Z79.891 ; Osteoporosis M81.0 and Screening for breast cancer Z12.31 [place] [address] [place] [id number] [place] [address] Jun, [place] [id number] [place] [address] May, [facility] [address] [address] May, [facility] [address] [place] [id number] [place] [address] May, [facility] [address] [place] [id number] [place] [address] Apr, [facility] [address] [place] [id number] [place] [address] Apr, Hypothyroidism, unspecified hypothyroidism type E03.9 [place] [address] [place] [id number] [place] [address] Apr, Hypothyroidism, unspecified hypothyroidism type E03.9 and Leukopenia, unspecified type D72.819 [place] [address] [place] [id number] [place] [address] Mar, [place] [address] [place] [id number] [place] [address] Mar, Leukopenia, unspecified type D72.819 [place] [address] [place] [id number] [place] [address] Mar, Hypothyroidism, unspecified hypothyroidism type E03.9 and Low hemoglobin D64.9 [place] [address] [place] [id number] [place] [address] Mar, Hypothyroidism, unspecified hypothyroidism type E03.9 [place] [id number] [place] [address] Mar, Osteoporosis M81.0 ; Low hemoglobin D64.9 and Hypothyroidism, unspecified hypothyroidism type E03.9 [place] [address] [place] [id number] [place] [address] Mar, Hypothyroidism, unspecified hypothyroidism type E03.9 ; Bilirubin in urine R82.2 and Pancytopenia D61.818 [place] [address] [place] [id number] [place] [address] 30 Feb, 2017 [facility] [address] [place] [id number] [place] [address] 18 Feb, 2017 Cough R05 and Bronchitis J40 [facility] [address] [place] [id number] [place] [address] 14 Feb, 2017 Other viral agents as the cause of diseases classified elsewhere B97.89 and Acute upper respiratory infection, unspecified J06.9 [place] [address] [address] Feb, Fibromyalgia M79.7 ; Chronic pain syndrome G89.4 ; Hypothyroidism, unspecified hypothyroidism type E03.9 ; Primary insomnia F51.01 ; Osteoporosis M81.0 ; Vision abnormalities H53.9 ; Pancytopenia D61.818 ; BMI 28.0-28.9,adult Z68.28 and Encounter for immunization Z23 [address] [address] Feb, Neuroma D36.10 and Capsulitis of right foot M77.51 [place] [id number] [place] [address] Feb, [place] [address] [place] [id number] [place] [address] Feb, Hypothyroidism, unspecified hypothyroidism type E03.9 [place] [address] [place] [id number] [place] [address] Jan, [place] [address] [place] [id number] [place] [address] Jan, Atrial fibrillation, unspecified type I48.91 [place] [address] [address] Jan, [address] [address] Jan, Fibromyalgia M79.7 ; Atrial fibrillation, unspecified type I48.91 ; Pain of left hand M79.642 ; Pain in right hand M79.641 ; Chronic prescription opiate use Z79.891 ; Chronic pain syndrome G89.4 ; Elevated fasting glucose R73.01 and Hypothyroidism, unspecified hypothyroidism type E03.9 [facility] [address] [place] [id number] [place] [address] Jan, [facility] [address] [place] [id number] [place] [address] Dec, Trochanteric bursitis of both hips M70.61 [facility] [address] [address] Dec, [facility] [address] [address] Dec, [facility] [address] [address] Nov, [facility] [address] [place] [id number] [place] [address] Nov, Unilateral headache R51 [facility] [address] [place] [id number] [place] [address] Nov, [facility] [address] [place] [id number] [place] [address] Oct, Unilateral headache R51 ; 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 and Allergy to intravenous contrast Z91.041 [facility] [address] [place] [id number] [place] [address] Oct, [facility] [address] [place] [id number] [place] [address] Oct, [facility] [address] [place] [id number] [place] [address] Sep, Hypothyroidism, unspecified hypothyroidism type E03.9 [facility] [address] [place] [id number] [place] [address] Sep, Hypothyroidism, unspecified hypothyroidism type E03.9 and Bilirubin in urine R82.2 [facility] [address] [place] [id number] [place] [address] Sep, Trochanteric bursitis of both hips M70.61 [facility] [address] [place] [id number] [place] [address] Sep, Hypothyroidism, unspecified hypothyroidism type E03.9 ; Dysuria R30.0 ; Chronic tension-type headache, not intractable G44.229 and Drug induced constipation K59.03 [facility] [address] [place] [id number] [place] [address] Sep, [place] [address] [address] Sep, [facility] [address] [address] August, [facility] [address] [address] Jul, [facility] [address] [address] Jul, Trochanteric bursitis of right hip M70.61 [facility] [address] [address] Jul, Hypothyroidism, unspecified hypothyroidism type E03.9 [facility] [address] [place] [id number] [place] [address] Jul, Fibromyalgia M79.7 ; Chronic pain syndrome G89.4 ; Hypothyroidism, unspecified hypothyroidism type E03.9 and Other constipation K59.09 [facility] [address] [place] [id number] [place] [address] Jun, Swollen tonsil J35.1 and Strep throat J02.0 [facility] [address] [place] [id number] [place] [address] Jun, [facility] [address] [address] Jun, Acute maxillary sinusitis J01.00 [facility] [address] [place] [id number] [place] [address] Jun, Hypothyroidism, unspecified hypothyroidism type E03.9 [facility] [address] [place] [id number] [place] [address] Jun, Chronic pain syndrome G89.4 ; Fibromyalgia M79.7 ; Hypothyroidism, unspecified hypothyroidism type E03.9 and Chronic prescription opiate use Z79.891 [facility] [address] [place] [id number] [place] [address] May, [place] [address] [place] [id number] [place] [address] Apr, Hypothyroidism, unspecified hypothyroidism type E03.9 [place] [address] [place] [id number] [place] [address] Apr, [facility] [address] [place] [id number] [place] [address] Apr, Lipid screening Z13.220 and Hypothyroidism, unspecified hypothyroidism type E03.9 [place] [address] [place] [id number] [place] [address] Apr, [place] [id number] [place] [address] Mar, Trochanteric bursitis of both hips M70.61 [place] [address] [place] [id number] [place] [address] Mar, [place] [address] [place] [id number] [place] [address] Mar, Plantar fasciitis M72.2 and Porokeratosis Q82.8 [place] [id number] [place] [address] Feb, Lipid screening Z13.220 ; Vitamin D deficiency E55.9 and Hypothyroidism, unspecified hypothyroidism type E03.9 [place] [address] [place] [id number] [place] [address] Feb, Chronic pain syndrome G89.4 ; Hypothyroidism, unspecified hypothyroidism type E03.9 ; Pancytopenia D61.818 ; Vaginal atrophy N95.2 ; Chronic gastritis without bleeding, unspecified gastritis type K29.50 ; Vitamin D deficiency E55.9 ; Chronic prescription opiate use Z79.891 ; Adverse effect of other opioids, initial encounter T40.2X5A ; Drug induced constipation K59.03 ; Lipid screening Z13.220 and Encounter for immunization Z23 [place] [address] [address] Feb, [place] [address] [address] Feb, Ingrown toenail L60.0 [place] [address] [address] Jan, [place] [address] [address] Jan, Trochanteric bursitis of both hips M70.61 [place] [address] [address] Jan, [place] [address] [address] Jan, [place] [address] [address] Jan, [place] [address] [address] Jan, Right sided sciatica M54.31 [place] [address] [address] Dec, Onychomycosis B35.1 [place] [address] [place] [id number] [place] [address] Dec, [place] [address] [address] Dec, [facility] [address], [place] [address] Dec, [facility] [id number] [place] [address] Dec, Osteoarthritis of right hip, unspecified osteoarthritis type M16.11 and Bursitis of right hip M70.71 [facility] [address] [place] [id number] [place] [address] Nov, [facility] [id number] [place] [address] Nov, [facility] [address] [place] [id number] [place] [address] Nov, [place] [address] [place] [id number] [place] [address] Nov, Hypothyroidism, unspecified hypothyroidism type E03.9 ; Vitamin D deficiency E55.9 and History of hepatitis C Z86.19 [place] [address] [place] [address] Nov, Right upper quadrant pain R10.11 ; History of hepatitis C Z86.19 and Low back pain M54.5 [place] [id number] [place] [address] Oct, Trochanteric bursitis, right hip M70.61 [facility] [id number] [place] [address] Oct, [facility] [id number] [place] [address] Oct, [facility] [address] [place] [id number] [place] [address] Oct, Trochanteric bursitis of both hips M70.61 and Right sided sciatica M54.31 [place] [address] [place] [id number] [place] [address] Oct, Trochanteric bursitis of both hips M70.61 [place] [address] [place] [id number] [place] [address] 14 Oct, 2015 RUQ abdominal pain R10.11 [place] [address] [place] [id number] [place] [address] 13 Oct, 2015 Sciatic leg pain M54.30 [place] [address] [address] Oct, RUQ abdominal pain R10.11 [place] [address] [place] [id number] [place] [address] 07 Oct, 2015 RUQ abdominal pain R10.11 ; History of hepatitis C Z86.19 and Trigger point with back pain M54.9 [place] [address] [place] [id number] [place] [address] Sep, [place] [address] [place] [id number] [place] [address] Sep, Right sided sciatica M54.31 [place] [address] [place] [id number] [place] [address] Sep, Hypothyroidism, unspecified hypothyroidism type E03.9 and Vitamin D deficiency E55.9 [place] [address] [place] [id number] [place] [address] Sep, Plantar fasciitis M72.2 and Porokeratosis Q82.8 [place] [address] [place] [id number] [place] [address] Sep, Hypothyroidism, unspecified hypothyroidism type E03.9 ; Chronic pain syndrome G89.4 ; Polyneuropathy associated with underlying disease G63 and Vitamin D deficiency E55.9 [place] [address] [place] [id number] [place] [address] August, [place] [address] [place] [id number] [place] [address] Jul, Plantar fasciitis M72.2 [facility] [address] [place] [id number] [place] [address] 28 Jul, 2015 Trochanteric bursitis, right hip M70.61 [facility] [address] [place] [id number] [place] [address] 07 Jul, 2015 Hypothyroidism, unspecified hypothyroidism type E03.9 [place] [address] [address] 06 Jul, 2015 Hypothyroidism, unspecified hypothyroidism type E03.9 ; Chronic pain syndrome G89.4 and Polyneuropathy associated with underlying disease G63 [place] [address] [address] 10 Jun, 2015 Trochanteric bursitis of both hips M70.61 [place] [address] [place] [id number] [place] [address] 08 Jun, 2015 Vitamin D deficiency E55.9 ; Osteoporosis M81.0 ; Low back pain M54.5 and Plantar fasciitis M72.2 [place] [address] [place] [id number] [place] [address] May, Vitamin D deficiency E55.9 and Hypothyroidism, unspecified hypothyroidism type E03.9 [place] [address] [place] [id number] [place] [address] 23 May, 2015 Acute maxillary sinusitis J01.00 [place] [address] [place] [id number] [place] [address] 18 May, 2015 Osteoporosis M81.0 and Hypothyroidism, unspecified hypothyroidism type E03.9 [place] [address] [place] [id number] [place] [address] 16 May, 2015 Osteoporosis M81.0 [facility] [address] [place] [id number] [place] [address] 15 May, 2015 [facility] [address] [place] [id number] [place] [address] Apr, [place] [id number] [place] [address] Apr, Trochanteric bursitis of both hips M70.61 [place] [address] [place] [id number] [place] [address] Apr, Hypothyroidism, unspecified hypothyroidism type E03.9 [place] [address] [place] [id number] [place] [address] Apr, Chronic pain syndrome G89.4 ; Bilateral low back pain with sciatica, sciatica laterality unspecified M54.40 ; Pain in right hip M25.551 ; Pain in left hip M25.552 ; Chronic prescription opiate use Z79.899 ; Primary insomnia F51.01 and Hypothyroidism, unspecified hypothyroidism type E03.9 [place] [address] [place] [id number] [place] [address] Mar, [place] [address] [address] Feb, [place] [address] [place] [id number] [place] [address] 16 Feb, 2015 Chronic pain syndrome G89.4 and Major depression F32.9 [place] [address] [place] [id number] [place] [address] 16 Feb, 2015 Fatigue R53.83 [place] [address] [place] [id number] [place] [address] 13 Feb, 2015 History of fracture Z87.81 [place] [address] [place] [id number] [place] [address] 12 Feb, 2015 Major depression, recurrent F33.9 and Generalized anxiety disorder F41.1 [place] [address] [place] [id number] [place] [address] Feb, [facility] [address] [place] [id number] [place] [address] Jan, Hypothyroidism, unspecified hypothyroidism type E03.9 [place] [id number] [place] [address] Jan, Abdominal pain R10.9 and Hypothyroidism, unspecified hypothyroidism type E03.9 [place] [id number] [place] [address] Jan, Abdominal pain R10.9 [place] [address] [place] [id number] [place] [address] Jan, Hypothyroidism, unspecified hypothyroidism type E03.9 [place] [address] [place] [id number] [place] [address] Jan, [place] [address] [address] Jan, 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/o 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 Z01.419 and Hypothyroidism, unspecified hypothyroidism type E03.9 [place] [address] [place] [id number] [place] [address] Jan, 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/o 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 Z01.419 ; Abdominal pain R10.9 ; Dyspareunia N94.1 ; Encounter for immunization Z23 ; History of fracture Z87.81 ; Fatigue R53.83 ; Throat fullness R68.89 ; Bruises easily R23.8 ; Hot flashes N95.1 ; Depression F32.9 and Vaginal atrophy N95.2 [place] [id number] [place] [phone] Jan, Hypothyroidism, unspecified hypothyroidism type E03.9 [place] [id number] [place] [phone] Jan, Unspecified abdominal pain R10.9 ; Chronic obstructive pulmonary disease, unspecified COPD type J44.9 ; Allergic rhinitis, unspecified allergic rhinitis type J30.9 ; Chronic pain syndrome G89.4 ; Hypothyroidism, unspecified hypothyroidism type E03.9 ; Chest pain, unspecified chest pain type R07.9 and Plantar fasciitis M72.2 [facility] [id number] [address] Jan, Trochanteric bursitis of both hips M70.61 [facility] [id number] [place] [phone] Dec, [facility] [id number] [place] [phone] Nov, [facility] [id number] [place] [phone] Nov, [facility] [id number] [place] [phone] Nov, Constipation 564.00 [facility] [id number] [place] [phone] Oct, Chronic pain 338.29 and Hypothyroidism 244.9 [facility] [id number] [place] [phone] Oct, [facility] [id number] [place] [phone] Sep, [facility] [id number] [place] [phone] Sep, [facility] [id number] [place] [address] Sep, [facility] [id number] [place] [address] Sep, [facility] [id number] [place] [address] Sep, [facility] [id number] [place] [address] Sep, [facility] [id number] [address] Sep, COPD exacerbation 491.21 ; Chronic pain 338.29 ; Hypothyroidism 244.9 and Pancytopenia 284.19 [facility] [place] [facility] [address] [id number] [place] [address] August, [facility] [place] [facility] [address] [id number] [place] [address] Jul, [facility] [place] [facility] [address] [id number] [place] [address] Jul, [facility] [place] [facility] [address] [id number] [place] [address] Jun, [facility] [place] [facility] [address] [id number] [place] [address] Jun, [facility] [place] [facility] [address] [id number] [place] [address] Jun, [facility] [place] [facility] [address] [facility] [id number] [place] [address] Jun, [facility] [place] [facility] [address] [facility] [id number] [place] [address] Jun, [facility] [place] [facility] [address] [facility] [id number] [place] [address] May, [facility] [place] [facility] [address] [facility] [id number] [place] [address] May, [facility] [place] [facility] [address] [facility] [id number] [place] [address] May, [facility] [place] [facility] [address] [id number], [place] [address] May, [facility] [place] [facility] [address] [facility] [id number] [place] [address] May, [facility] [place] [facility] [address] [id number] [place] [address] May, [facility] [place] [facility] [address] [facility] [id number] [place] [address] May, [facility] [place] [facility] [address] [facility] [id number] [place] [address] May, 2014 [facility] [place] [facility] [address] [id number] [place] [address] May, 2014 [facility] [place] [facility] [address] [id number] [place] [address] May, 2014 [facility] [place] [facility] [address] [id number] [place] [address] May, 2014 [facility] [place] [facility] [address] [id number] [place] [address] May, 2014 [facility] [place] [facility] [address] [id number] [place] [address] May, 2014 [facility] [place] [facility] [address] [id number] [place] [address] Apr, [facility] [place] [facility] [id number] [place] [address] Apr, [facility] [place] [facility] [address] [id number] [place] [address] Apr, [facility] [place] [facility] [id number] [place] [address] Apr, [facility] [place] [facility] [address] [facility] [id number] [place] [address] Apr, [facility] [place] [facility] [address] [facility] [id number] [place] [address] Apr, [facility] [place] [facility] [address] [id number] [place] [address] Apr, [facility] [place] [facility] [address] [id number] [place] [address] Mar, [facility] [place] [facility] [address] [id number] [place] [address] Mar, [facility] [place] [facility] [address] [facility] [id number] [place] [address] Mar, [facility] [place] [facility] [address] [id number] [place] [address] Mar, [facility] [place] [facility] [address] [id number] [place] [address] Mar, [facility] [place] [facility] [address] [id number] [place] [address] Mar, [facility] [place] [facility] [address] [id number] [place] [address] Feb, [facility] [place] [facility] [address] [id number] [place] [address] Feb, [facility] [place] [facility] [address] [id number] [place] [address] Feb, [facility] [place] [facility] [address] [id number] [place] [address] Feb, [facility] [place] [facility] [address] [id number] [place] [address] Feb, [facility] [place] [facility] [address] [id number] [place] [address] Feb, [facility] [place] [facility] [address] [id number], [place] [address] Jan, [facility] [place] [facility] [address] [id number], [place] [address] Jan, [facility] [place] [facility] [address] [id number], [place] [address] Jan, [facility] [place] [facility] [address] [id number], [place] [address] Jan, [facility] [place] [facility] [address] [id number], [place] [address] Jan, [facility] [place] [facility] [address] [id number], [place] [address] Jan, [facility] [place] [facility] [address] [id number], [place] [address] Jan, [facility] [place] [facility] [address] [id number] [place] [address] Jan, [facility] [place] [facility] [address] [id number] [place] [address] Dec, [facility] [place] [facility] [address] [id number] [place] [address] Dec, [facility] [place] [facility] [address] [id number] [place] [address] Dec, [facility] [place] [facility] [address] [id number] [place] [address] Dec, [facility] [place] [facility] [address] [id number] [place] [address] Dec, [facility] [place] [facility] [address] [id number] [place] [address] Dec, [facility] [place] [facility] [address] [id number] [place] [address] Dec, [facility] [place] [facility] [address] [id number] [place] [address] Nov, [facility] [place] [facility] [address] [id number] [place] [address] Nov, [facility] [place] [facility] [address] [id number] [place] [address] Oct, [facility] [place] [facility] [address] [id number] [place] [address] Oct, [facility] [place] [facility] [address] [id number] [place] [address] Oct, [facility] [place] [facility] [address] [id number] [place] [address] Oct, [facility] [place] [facility] [address] [id number] [place] [address] Sep, [facility] [place] [facility] [address] [id number] [place] [address] Sep, [facility] [place] [facility] [address] [id number] [place] [address] Sep, [facility] [place] [facility] [address] [id number] [place] [address] Sep, [facility] [place] [facility] [address] [id number] [place] [address] Sep, [facility] [place] [facility] [address] [id number] [place] [address] Sep, [facility] [place] [facility] [address] [id number] [place] [address] Sep, [facility] [place] [facility] [address] [id number] [place] [address] Sep, [facility] [place] [facility] [address] [id number] [place] [address] August, [facility] [place] [facility] [address] [id number] [place] [address] August, [facility] [place] [facility] [address] [id number] [place] [address] August, [facility] [place] [facility] [address] [id number] [place] [address] August, [facility] [place] [facility] [address] [id number] [place] [address] Jul, [facility] [place] [facility] [address] [id number] [place] [address] Jul, [facility] [place] [facility] [address] [id number] [place] [address] Jul, [facility] [place] [facility] [address] [id number] [place] [address] Jul, [facility] [place] [facility] [address] [id number] [place] [address] 17 Jul, 2013 [facility] [place] [facility] [address] [id number] [place] [address] 16 Jul, 2013 [facility] [place] [facility] [address] [id number] [place] [address] 15 Jul, 2013 [facility] [place] [facility] [address] [id number] [place] [address] 15 Jul, 2013 [facility] [place] [facility] [address] [id number] [place] [address] 18 Jun, 2013 [facility] [place] [facility] [address] [id number] [place] [address] Jun, [facility] [place] [facility] [address] [id number] [place] [address] Jun, [facility] [place] [facility] [address] [id number] [place] [address] Jun, [facility] [place] [facility] [address] [id number] [place] [address] Jun, [facility] [place] [facility] [address] [id number] [place] [address] Jun, [facility] [place] [facility] [address] [id number] [place] [address] Jun, [facility] [place] [facility] [address] [id number] [place] [address] Jun, [facility] [place] [facility] [address] [id number], [place] [address] May, [facility] [place] [facility] [address] [id number] [place] [address] May, [facility] [place] [facility] [address] [id number] [place] [address] Apr, [facility] [place] [facility] [address] [id number] [place] [address] Apr, [facility] [place] [facility] [address] [id number] [place] [address] 24 Mar, 2013 [facility] [address] [id number] [place] [address] 24 Mar, 2013 [facility] [place] [facility] [address] [id number] [place] [address] Mar, [facility] [address] [id number] [place] [address] 18 Mar, 2013 [facility] [place] [facility] [address] [id number] [place] [address] 18 Mar, 2013 [facility] [address] [id number] [place] [address] Mar, [facility] [place] [facility] [address] [id number] [place] [address] Mar, [facility] [address] [id number] [place] [address] Feb, [facility] [address] [id number] [place] [address] Feb, [facility] [place] [facility] [address] [id number] [place] [address] Feb, [facility] [address] [facility] [id number] [place] [address] Feb, [facility] [place] [facility] [address] [id number] [place] [address] 05 Feb, 2013 [facility] [place] [facility] [address] [id number] [place] [address] 04 Feb, 2013 [facility] [place] [facility] [address] [id number] [place] [address] 26 Dec, 2012 [facility] [place] [facility] [address] [id number] [place] [address] 18 Dec, 2012 [facility] [place] [facility] [address] [id number] [place] [address] Dec, [facility] [place] [facility] [address] [id number] [place] [address] Dec, [facility] [address] [id number] [place] [address] Dec, [facility] [address] [id number] [place] [address] Nov, [facility] [address] [id number] [place] [address] Nov, [facility] [address] [id number] [place] [address] Oct, [facility] [address] [id number] [place] [address] August, [facility] [address] [id number] [place] [address] August, [facility] [address] [id number] [place] [address] August, [facility] [address] [id number] [place] [address] Jul, [facility] [address] [id number] [place] [address] Jul, [facility] [address] [id number] [place] [address] Jul, [facility] [address] [id number] [place] [address] Jun, [facility] [address] [id number] [place] [address] Jun, [facility] [address] [id number] [place] [address] Jun, [facility] [address] [id number] [place] [address] Jun, [facility] [address] [id number] [place] [address] 18 Jun, 2012 [facility] [address] [id number] [place] [address] 15 Jun, 2012 [facility] [address] [id number] [place] [address] 12 Jun, 2012 [facility] [address] [id number] [place] [address] 18 May, 2012 [facility] [address] [id number] [place] [address] May, [facility] [address] [id number] [place] [address] 06 May, 2012 [facility] [address] [id number] [place] [address] 05 May, 2012 [facility] [address] [facility] [id number] [place] [address] Apr, [facility] [address] [id number] [place] [address] Apr, [facility] [address] [facility] [id number] [place] [address] Apr, [facility] [address] [facility] [id number] [place] [address] Mar, [facility] [address] [id number] [place] [address] Mar, [facility] [place] [facility] [address] [id number] [place] [address] Mar, [facility] [place] [facility] [address] [id number] [place] [address] Mar, [facility] [place] [facility] [address] [id number] [place] [address] Mar, [facility] [address] [facility] [id number] [place] [address] Mar, [facility] [place] [facility] [address] [id number] [place] [address] Mar, [facility] [place] [facility] [address] [id number] [place] [address] Mar, [facility] [place] [facility] [address] [id number] [place] [address] Feb, [facility] [place] [facility] [address] [id number] [place] [address] Feb, [facility] [place] [facility] [address] [id number] [place] [address] Feb, [facility] [place] [facility] [address] [id number] [place] [address] Jan, [facility] [place] [facility] [address] [id number] [place] [address] Jan, [facility] [place] [facility] [address] [id number] [place] [address] Jan, [facility] [place] [facility] [address] [id number] [place] [address] Jan, [facility] [place] [facility] [address] [id number] [place] [address] Jan, [facility] [place] [facility] [address] [facility] [id number] [place] [address] Jan, [facility] [place] [facility] [address] [id number] [place] [address] Jan, [facility] [place] [facility] [address] [id number] [place] [address] 27 Dec, 2011 [facility] [place] [facility] [address] [id number] [place] [address] 24 Dec, 2011 [facility] [place] [facility] [address] [id number] [place] [address] 10 Dec, 2011 [facility] [place] [facility] [address] [id number] [place] [address] Nov, [facility] [place] [facility] [address] [id number] [place] [address] Nov, [facility] [place] [facility] [address] [id number] [place] [address] Nov, [facility] [place] [facility] [address] [id number] [place] [address] Nov, [facility] [place] [facility] [address] [id number] [place] [address] Oct, [facility] [place] [facility] [address] [id number] [place] [address] Oct, [facility] [place] [facility] [address] [id number] [place] [address] Oct, [facility] [place] [facility] [address] [id number] [place] [address] Sep, [facility] [place] [facility] [address] [id number] [place] [address] Sep, [facility] [place] [facility] [address] [id number] [place] [address] Sep, [facility] [place] [facility] [address] [id number] [place] [address] Sep, [facility] [place] [facility] [address] [id number] [place] [address] Sep, [facility] [place] [facility] [address] [id number], [place] [address] Sep, [facility] [place] [facility] [address] [id number] [place] [address] August, [facility] [place] [facility] [address] [id number] [place] [address] Jul, [facility] [place] [facility] [address] [id number] [place] [address] Jul, [facility] [place] [facility] [address] [id number] [place] [address] 09 Jul, 2011 [facility] [address] [id number] [place] [address] 05 Jul, 2011 [facility] [place] [facility] [address] [id number] [place] [address] 04 Jul, 2011 [facility] [address] [id number] [place] [address] 29 Jun, 2011 [facility] [place] [facility] [address] [id number] [place] [address] 27 Jun, 2011 [facility] [address] [id number] [place] [address] Jun, [facility] [place] [facility] [address] [facility] [id number] [place] [address] 15 Jun, 2011 [facility] [address] [facility] [id number] [place] [address] Jun, [facility] [address] [facility] [id number] [place] [address] May, [facility] [place] [facility] [address] [id number] [place] [address] May, [facility] [address] [facility] [id number] [place] [address] May, [facility] [place] [facility] [address] [facility] [id number] [place] [address] May, [facility] [place] [facility] [address] [facility] [id number] [place] [address] May, [facility] [place] [facility] [address] [id number] [place] [address] May, [facility] [place] [facility] [address] [facility] [id number] [place] [address] May, [facility] [place] [facility] [address] [facility] [id number] [place] [address] Apr, [facility] [place] [facility] [address] [id number] [place] [address] 29 Mar, 2011 [facility] [place] [facility] [address] [id number] [place] [address] Mar, [facility] [place] [facility] [address] [id number] [place] [address] Mar, [facility] [place] [facility] [address] [id number] [place] [address] Mar, [facility] [place] [facility] [address] [id number] [place] [address] Mar, [facility] [place] [facility] [address] [id number] [place] [address] Feb, [facility] [place] [facility] [address] [id number] [place] [address] Feb, [facility] [place] [facility] [address] [id number] [place] [address] 14 Feb, 2011 [facility] [place] [facility] [address] [id number] [place] [address] Feb, [facility] [place] [facility] [address] [id number] [place] [address] Feb, [facility] [place] [facility] [address] [id number] [address] Feb, [facility] [place] [facility] [address] [id number], [place] [address] Feb, [facility] [place] [facility] [address] [id number] [place] [address] Jan, [facility] [place] [facility] [address] [id number], [place] [address] 12 Dec, 2010 [facility] [place] [facility] [address] [id number], [place] [address] Oct, [facility] [place] [facility] [address] [id number] [place] [address] 10 Jun, 2010 [facility] [address] [id number] [place] [address] 23 Mar, 2010 [facility] [place] [facility] [address] [id number] [place] [address] 23 Mar, 2010 [facility] [address] [id number] [place] [address] 16 Mar, 2010 [facility] [place] [facility] [address] [id number] [place] [address] 16 Mar, 2010 [facility] [address] [id number] [place] [address] 15 Mar, 2010 [facility] [place] [facility] [address] [id number] [place] [address] 10 Mar, 2010 [facility] [address] [id number] [place] [address] 10 Mar, 2010 [facility] [place] [facility] [address] [id number] [place] [address] 05 Mar, 2010 [facility] [place] [facility] [address] [id number] [place] [address] 03 Mar, 2010 [facility] [place] [facility] [address] [facility] [id number] [place] [address] 02 Mar, 2010 [facility] [place] [facility] [address] [id number] [place] [address] Jan, [facility] [place] [facility] [address] [id number] [place] [address] Jan, [facility] [place] [facility] [address] [id number] [place] [address] Jan, [facility] [place] [facility] [address] [id number] [place] [address] Nov, [facility] [place] [facility] [address] [id number] [place] [address] Oct, [facility] [address] [id number] [address] Mar, [facility] [id number], [place] [address] Mar, [facility] [id number], [place] [address] Mar, [facility] [id number], [place] [address] Mar, [facility] [id number], [place] [address] Dec, [facility] [id number], [place] [address] August, [facility] [id number], [place] [address] August, [facility] [id number], [place] [address] Jul, [facility] [id number], [place] [address] Jan, [facility] [id number], [place] [address] Jan, IMMUNIZATIONS No Known Immunizations SOCIAL HISTORY Never Assessed REASON FOR VISIT Pain management (chronic)-[facility] PLAN OF CARE Activity Details Follow Up 3 Months Reason:Weight management VITAL SIGNS Height 67 in 2017-11-08 Weight 186.9 lbs 2017-11-08 Temperature 98.4 degrees Fahrenheit 2017-11-08 Heart Rate 64 bpm 2017-11-08 Respiratory Rate 20 2017-11-08 BMI 29.27 kg/m2 2017-11-08 Blood pressure systolic 108 mmHg 2017-11-08 Blood pressure diastolic 82 mmHg 2017-11-08 MEDICATIONS Medication Instructions Dosage Frequency Start Date End Date Duration Status Lyrica 75 MG Orally Twice a day 1 capsule 12h 03 Jan, 2017 Active Eliquis 5 mg TAKE ONE TABLET BY MOUTH TWICE DAILY Active Hydrocodone-Acetaminophen 10-325 MG Orally 2 times a day 1 tablet as needed 12h 13 Oct, 2017 Active Alendronate Sodium 10 MG Orally Once a day 1 tablet 24h Jun, 30 day(s) Active Metoprolol Succinate ER 50 MG Orally Once a day 1 tablet 24h Active Flonase 50 MCG/ACT Nasally Once a day 1 spray in each nostril 24h Sep, Active Synthroid 200 MCG Orally Once a day 1 tablet on an empty stomach in the morning 24h Jul, Active Premarin 0.625 MG/GM Vaginal Daily x 2 weeks then decrease to 2 days per week 0.5 gram Feb, Active Xenical 120 MG Orally Three times a day 1 capsule 8h 23 Oct, 2017 Jan, 30 day(s) Active RESULTS No Results PROCEDURES Procedure Date Ordered Result Body Site ASSAY THYROID STIM HORMONE November 08, 2017 ASSAY, TRIIODOTHYRONINE (T3) November 08, 2017 ASSAY OF FREE THYROXINE November 08, 2017 VENIPUNCT, ROUTINE* November 08, 2017 INSTRUCTIONS MEDICATIONS ADMINISTERED No Known Medications [...]
[2018-09-22] MEDS ORDERED: KETOROLAC 30 MG/ML VIAL IVP STA (02:50)
--- OUTSIDE RECORDS SUMMARY | 2018-09-22 02:50 | XMS REPORT ---
Author Author TAMI PALACIOS Organization [facility] Address [address] [place] [address] Care Team Providers Care Scrub Woman Name Role Phone TAMI PALACIOS Unavailable PROBLEMS Type Condition ICD9-CM Code [id number] Code Onset Dates Condition Status SNOMED Code Problem Chronic gastritis without bleeding, unspecified gastritis type K29.50 Active 8858465 Problem Vitamin D deficiency E55.9 Active 27792726 Problem Osteoporosis M81.0 Active 31915482 Problem Unspecified abdominal pain R10.9 Active 375396915 Problem Fibromyalgia M79.7 Active 45202628 Problem Chronic pain syndrome G89.4 Active 243993036 Problem Trigger point with back pain M54.9 Active 444935585 Problem Chronic tension-type headache, not intractable G44.229 Active 080712324 Problem RUQ abdominal pain R10.11 Active 366477400 Problem Pancytopenia D61.818 Active 071529460 Problem Right sided sciatica M54.31 Active 25643433 Problem Chronic prescription opiate use Z79.891 Active 469875454 Problem Drug induced constipation K59.03 Active 436999179388583 Problem Leukopenia, unspecified type D72.819 Active 75221199 Problem Atrial fibrillation, unspecified type I48.91 Active 12839378 Problem Allergic rhinitis, unspecified allergic rhinitis type J30.9 Active 63860707 Problem Chronic obstructive pulmonary disease, unspecified COPD type J44.9 Active 63417239 Problem Hypothyroidism, unspecified hypothyroidism type E03.9 Active 98760941 Problem Other constipation K59.09 Active 341584106 Problem Porokeratosis Q82.8 Active 230086921 Problem 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 Active 044120620 Problem Allergy to intravenous contrast Z91.041 Active 327366358 Problem Vaginal atrophy N95.2 Active 955078292 Problem Major depression, recurrent F33.9 Active 82871468 Problem History of hepatitis C Z86.19 Active 55225739604074 Problem Hot flashes N95.1 Active 401208518 Problem Plantar fasciitis M72.2 Active 776209512 Problem Polyneuropathy associated with underlying disease G63 Active 348983310 Problem Primary insomnia F51.01 Active 1655439 Problem Low back pain M54.5 Active 993529677 ALLERGIES No Information ENCOUNTERS Encounter Location Date Diagnosis [facility] [id number] [place] [address] Jan, [facility] [id number] [place] [address] Nov, Onychocryptosis L60.0 [facility] [id number] [place] [address] Nov, Chronic pain syndrome G89.4 [facility] [id number] [place] [address] Nov, Trochanteric bursitis of both hips M70.61 [facility] [id number] [place] [address] Oct, Hypothyroidism, unspecified hypothyroidism type E03.9 and Atrial fibrillation, unspecified type I48.91 [facility] [id number] [place] [address] Oct, Fibromyalgia M79.7 ; Chronic pain syndrome G89.4 ; Hypothyroidism, unspecified hypothyroidism type E03.9 ; Overweight (BMI 25.0-29.9) E66.3 and Atrial fibrillation, unspecified type I48.91 [facility] [id number] [place] [address] Oct, Chronic pain syndrome G89.4 [facility] [id number] [place] [address] Sep, Chronic pain syndrome G89.4 [facility] [id number] [place] [address] August, Somatic dysfunction of lumbar region M99.03 and Somatic dysfunction of pelvis region M99.05 [facility] [id number] [place] [address] August, Chronic pain syndrome G89.4 [facility] [id number] [place] [address] Jul, Trochanteric bursitis of left hip M70.62 and Trochanteric bursitis, right hip M70.61 [facility] [id number] [place] [address] Jul, [facility] [id number] [place] [address] Jul, Chronic pain syndrome G89.4 [facility] [id number] [place] [address] Jul, Hypothyroidism, unspecified hypothyroidism type E03.9 [facility] [id number] [place] [address] Jul, Hypothyroidism, unspecified hypothyroidism type E03.9 [facility] [id number] [place] [address] Jul, Chronic tension-type headache, not intractable G44.229 ; Atrial fibrillation, unspecified type I48.91 ; Chronic pain syndrome G89.4 ; Hypothyroidism, unspecified hypothyroidism type E03.9 ; Pancytopenia D61.818 ; History of hepatitis C Z86.19 ; Vaginal atrophy N95.2 ; RUQ abdominal pain R10.11 ; Chronic prescription opiate use Z79.891 ; Osteoporosis M81.0 and Screening for breast cancer Z12.31 [facility] [id number] [place] [address] Jun, [facility] [id number] [place] [address] May, [facility] [id number] [place] [address] May, [facility] [id number] [place] [address] May, [facility] [id number] [place] [address] Apr, [facility] [id number] [place] [address] Apr, Hypothyroidism, unspecified hypothyroidism type E03.9 [facility] [id number] [place] [address] Apr, Hypothyroidism, unspecified hypothyroidism type E03.9 and Leukopenia, unspecified type D72.819 [facility] [id number] [place] [address] Mar, [facility] [id number] [place] [address] Mar, Leukopenia, unspecified type D72.819 [facility] [id number] [place] [address] Mar, Hypothyroidism, unspecified hypothyroidism type E03.9 and Low hemoglobin D64.9 [facility] [id number] [place] [address] Mar, Hypothyroidism, unspecified hypothyroidism type E03.9 [facility] [id number] [place] [address] Mar, Osteoporosis M81.0 ; Low hemoglobin D64.9 and Hypothyroidism, unspecified hypothyroidism type E03.9 [facility] [id number] [place] [address] Mar, Hypothyroidism, unspecified hypothyroidism type E03.9 ; Bilirubin in urine R82.2 and Pancytopenia D61.818 [facility] [id number] [place] [address] Feb, [facility] [id number] [place] [address] Feb, Cough R05 and Bronchitis J40 [facility] [address] [place] [address] 14 Feb, 2017 Other viral agents as the cause of diseases classified elsewhere B97.89 and Acute upper respiratory infection, unspecified J06.9 [facility] [id number] [place] [address] Feb, Fibromyalgia M79.7 ; Chronic pain syndrome G89.4 ; Hypothyroidism, unspecified hypothyroidism type E03.9 ; Primary insomnia F51.01 ; Osteoporosis M81.0 ; Vision abnormalities H53.9 ; Pancytopenia D61.818 ; BMI 28.0-28.9,adult Z68.28 and Encounter for immunization Z23 [address] [address] Feb, Neuroma D36.10 and Capsulitis of right foot M77.[address] [address] Feb, [facility] [address] [address] Feb, Hypothyroidism, unspecified hypothyroidism type E03.9 [facility] [address] [address] Jan, [facility] [id number] [place] [address] Jan, Atrial fibrillation, unspecified type I48.91 [facility] [id number] [place] [address] Jan, [facility] [address] [address] Jan, Fibromyalgia M79.7 ; Atrial fibrillation, unspecified type I48.91 ; Pain of left hand M79.642 ; Pain in right hand M79.641 ; Chronic prescription opiate use Z79.891 ; Chronic pain syndrome G89.4 ; Elevated fasting glucose R73.01 and Hypothyroidism, unspecified hypothyroidism type E03.9 [facility] [address] [place] [address] Jan, [facility] [id number] [place] [address] Dec, Trochanteric bursitis of both hips M70.61 [facility] [id number] [place] [address] Dec, [facility] [address] [address] Dec, [facility] [id number] [place] [address] Nov, [facility] [address] [address] Nov, Unilateral headache R51 [facility] [id number] [place] [address] Nov, [facility] [id number] [place] [address] Oct, Unilateral headache R51 ; 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 and Allergy to intravenous contrast Z91.041 [facility] [id number] [place] [address] Oct, [facility] [id number] [place] [address] Oct, [facility] [id number] [place] [address] Sep, Hypothyroidism, unspecified hypothyroidism type E03.9 [facility] [id number] [place] [address] Sep, Hypothyroidism, unspecified hypothyroidism type E03.9 and Bilirubin in urine R82.2 [facility] [id number] [place] [address] Sep, Trochanteric bursitis of both hips M70.61 [facility] [id number] [place] [address] Sep, Hypothyroidism, unspecified hypothyroidism type E03.9 ; Dysuria R30.0 ; Chronic tension-type headache, not intractable G44.229 and Drug induced constipation K59.03 [facility] [id number] [place] [address] Sep, [facility] [id number] [place] [address] Sep, [facility] [id number] [place] [address] August, [facility] [id number] [place] [address] Jul, [facility] [id number] [place] [address] Jul, Trochanteric bursitis of right hip M70.61 [facility] [id number] [place] [address] Jul, Hypothyroidism, unspecified hypothyroidism type E03.9 [facility] [id number] [place] [address] Jul, Fibromyalgia M79.7 ; Chronic pain syndrome G89.4 ; Hypothyroidism, unspecified hypothyroidism type E03.9 and Other constipation K59.09 [facility] [address] [address] Jun, Swollen tonsil J35.1 and Strep throat J02.0 [facility] [id number] [place] [address] Jun, [facility] [id number] [place] [address] Jun, Acute maxillary sinusitis J01.00 [facility] [id number] [place] [address] Jun, Hypothyroidism, unspecified hypothyroidism type E03.9 [facility] [id number] [place] [address] Jun, Chronic pain syndrome G89.4 ; Fibromyalgia M79.7 ; Hypothyroidism, unspecified hypothyroidism type E03.9 and Chronic prescription opiate use Z79.891 [facility] [id number] [place] [address] May, [facility] [address] [address] Apr, Hypothyroidism, unspecified hypothyroidism type E03.9 [facility] [id number] [place] [address] Apr, [facility] [address] [address] Apr, Lipid screening Z13.220 and Hypothyroidism, unspecified hypothyroidism type E03.[address] [address] Apr, [facility] [id number] [place] [address] Mar, Trochanteric bursitis of both hips M70.61 [place] [id number] [place] [address] Mar, [facility] [id number] [place] [address] Mar, Plantar fasciitis M72.2 and Porokeratosis Q82.8 [facility] [id number] [place] [address] Feb, Lipid screening Z13.220 ; Vitamin D deficiency E55.9 and Hypothyroidism, unspecified hypothyroidism type E03.9 [facility] [id number] [place] [address] 16 Feb, 2016 Chronic pain syndrome G89.4 ; Hypothyroidism, unspecified hypothyroidism type E03.9 ; Pancytopenia D61.818 ; Vaginal atrophy N95.2 ; Chronic gastritis without bleeding, unspecified gastritis type K29.50 ; Vitamin D deficiency E55.9 ; Chronic prescription opiate use Z79.891 ; Adverse effect of other opioids, initial encounter T40.2X5A ; Drug induced constipation K59.03 ; Lipid screening Z13.220 and Encounter for immunization Z23 [facility] [id number] [place] [address] 04 Feb, 2016 [facility] [address] [address] Feb, Ingrown toenail L60.0 [facility] [id number] [place] [address] Jan, [facility] [address] [address] Jan, Trochanteric bursitis of both hips M70.61 [facility] [address] [address] Jan, [facility] [id number] [place] [address] Jan, [facility] [address] [address] Jan, [facility] [id number] [place] [address] Jan, Right sided sciatica M54.31 [facility] [id number] [place] [address] Dec, Onychomycosis B35.1 [facility] [id number] [place] [address] Dec, [facility] [id number] [place] [address] Dec, [facility] [id number] [place] [address] 09 Dec, 2015 [facility] [address] [address] Dec, Osteoarthritis of right hip, unspecified osteoarthritis type M16.11 and Bursitis of right hip M70.71 [facility] [id number] [place] [address] Nov, [facility] [id number] [place] [address] Nov, [facility] [id number] [place] [address] Nov, [facility] [id number] [place] [address] Nov, Hypothyroidism, unspecified hypothyroidism type E03.9 ; Vitamin D deficiency E55.9 and History of hepatitis C Z86.19 [facility] [id number] [place] [address] Nov, Right upper quadrant pain R10.11 ; History of hepatitis C Z86.19 and Low back pain M54.5 [facility] [id number] [place] [address] Oct, Trochanteric bursitis, right hip M70.61 [facility] [id number] [place] [address] Oct, [facility] [id number] [place] [address] Oct, [facility] [id number] [place] [address] Oct, Trochanteric bursitis of both hips M70.61 and Right sided sciatica M54.31 [facility] [id number] [place] [address] Oct, Trochanteric bursitis of both hips M70.61 [facility] [id number] [place] [address] Oct, RUQ abdominal pain R10.11 [facility] [address] [place] [address] 13 Oct, 2015 Sciatic leg pain M54.30 [facility] [id number] [place] [address] Oct, RUQ abdominal pain R10.11 [facility] [id number] [place] [address] 07 Oct, 2015 RUQ abdominal pain R10.11 ; History of hepatitis C Z86.19 and Trigger point with back pain M54.9 [facility] [id number] [place] [address] Sep, [facility] [id number] [place] [address] Sep, Right sided sciatica M54.31 [facility] [id number] [place] [address] 06 Sep, 2015 Hypothyroidism, unspecified hypothyroidism type E03.9 and Vitamin D deficiency E55.9 [facility] [id number] [place] [address] Sep, Plantar fasciitis M72.2 and Porokeratosis Q82.8 [facility] [address] [place] [address] Sep, Hypothyroidism, unspecified hypothyroidism type E03.9 ; Chronic pain syndrome G89.4 ; Polyneuropathy associated with underlying disease G63 and Vitamin D deficiency E55.9 [facility] [place] [id number] [place] [address] August, [facility] [id number] [place] [address] Jul, Plantar fasciitis M72.2 [facility] [id number] [place] [address] Jul, Trochanteric bursitis, right hip M70.61 [facility] [id number] [place] [address] Jul, Hypothyroidism, unspecified hypothyroidism type E03.9 [facility] [id number] [place] [address] Jul, Hypothyroidism, unspecified hypothyroidism type E03.9 ; Chronic pain syndrome G89.4 and Polyneuropathy associated with underlying disease G63 [facility] [address] [address] 10 Jun, 2015 Trochanteric bursitis of both hips M70.61 [facility] [facility] [address] [address] 08 Jun, 2015 Vitamin D deficiency E55.9 ; Osteoporosis M81.0 ; Low back pain M54.5 and Plantar fasciitis M72.2 [facility] [facility] [address] [address] 26 May, 2015 Vitamin D deficiency E55.9 and Hypothyroidism, unspecified hypothyroidism type E03.9 [facility] [id number] [place] [address] 23 May, 2015 Acute maxillary sinusitis J01.00 [facility] [address] [address] 18 May, 2015 Osteoporosis M81.0 and Hypothyroidism, unspecified hypothyroidism type E03.9 [facility] [place] [id number] [place] [address] 16 May, 2015 Osteoporosis M81.0 [facility] [id number] [place] [address] 15 May, 2015 [facility] [id number] [place] [address] Apr, [facility] [id number] [place] [address] Apr, Trochanteric bursitis of both hips M70.61 [facility] [address] [address] Apr, Hypothyroidism, unspecified hypothyroidism type E03.9 [facility] [id number] [place] [address] Apr, Chronic pain syndrome G89.4 ; Bilateral low back pain with sciatica, sciatica laterality unspecified M54.40 ; Pain in right hip M25.551 ; Pain in left hip M25.552 ; Chronic prescription opiate use Z79.899 ; Primary insomnia F51.01 and Hypothyroidism, unspecified hypothyroidism type E03.9 [facility] [address] [address] Mar, [facility] [address] [address] Feb, [place] [address] [address] 16 Feb, 2015 Chronic pain syndrome G89.4 and Major depression F32.9 [facility] [address] [address] 16 Feb, 2015 Fatigue R53.83 [facility] [address] [address] 13 Feb, 2015 History of fracture Z87.81 [facility] [facility] [address] [address] 12 Feb, 2015 Major depression, recurrent F33.9 and Generalized anxiety disorder F41.1 [facility] [id number] [place] [address] Feb, [facility] [address] [address] Jan, Hypothyroidism, unspecified hypothyroidism type E03.9 [place] [address] [address] Jan, Abdominal pain R10.9 and Hypothyroidism, unspecified hypothyroidism type E03.9 [facility] [address] [address] Jan, Abdominal pain R10.9 [facility] [id number] [place] [address] Jan, Hypothyroidism, unspecified hypothyroidism type E03.9 [facility] [id number] [place] [address] Jan, [facility] [address] [address] Jan, 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 Z01.419 and Hypothyroidism, unspecified hypothyroidism type E03.9 [facility] [address] [address] Jan, 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 Z01.419 ; Abdominal pain R10.9 ; Dyspareunia N94.1 ; Encounter for immunization Z23 ; History of fracture Z87.81 ; Fatigue R53.83 ; Throat fullness R68.89 ; Bruises easily R23.8 ; Hot flashes N95.1 ; Depression F32.9 and Vaginal atrophy N95.2 [facility] [id number] [place] [address] Jan, Hypothyroidism, unspecified hypothyroidism type E03.9 [facility] [id number] [place] [address] Jan, Unspecified abdominal pain R10.9 ; Chronic obstructive pulmonary disease, unspecified COPD type J44.9 ; Allergic rhinitis, unspecified allergic rhinitis type J30.9 ; Chronic pain syndrome G89.4 ; Hypothyroidism, unspecified hypothyroidism type E03.9 ; Chest pain, unspecified chest pain type R07.9 and Plantar fasciitis M72.2 [facility] [address] [place] [address] 08 Jan, 2015 Trochanteric bursitis of both hips M70.61 [facility] [address] [address] Dec, [facility] [address], [place] [address] Nov, [facility] [id number] [place] [phone] Nov, [facility] [id number] [place] [id number] Nov, Constipation 564.00 [facility] [id number] [place] [phone] Oct, Chronic pain 338.29 and Hypothyroidism 244.9 [facility] [id number] [place] [phone] Oct, [facility] [id number] [place] [phone] Sep, [facility] [id number] [place] [phone] Sep, [facility] [id number] [place] [phone] Sep, [facility] [id number] [place] [phone] Sep, [facility] [id number] [place] [phone] Sep, [facility] [id number] [place] [phone] Sep, [facility] [id number] [place] [phone] Sep, COPD exacerbation 491.21 ; Chronic pain 338.29 ; Hypothyroidism 244.9 and Pancytopenia 284.19 [facility] [id number] [address] August, [facility] [id number] [place] [phone] Jul, [facility] [place] [facility] [id number] [place] [address] Jul, [facility] [place] [facility] [address] [id number] [place] [address] Jun, [facility] [place] [facility] [address] [id number] [place] [address] Jun, [facility] [place] [facility] [address] [id number] [place] [address] Jun, [facility] [place] [facility] [address] [id number] [place] [address] Jun, [facility] [place] [facility] [address] [id number] [place] [address] Jun, [facility] [place] [facility] [address] [facility] [id number] [place] [address] May, [facility] [place] [facility] [address] [id number] [place] [address] May, [facility] [place] [facility] [address] [id number] [place] [address] May, [facility] [place] [facility] [address] [facility] [id number] [place] [address] May, [facility] [place] [facility] [address] [facility] [id number] [place] [address] May, [facility] [place] [facility] [address] [id number], [place] [address] May, [facility] [place] [facility] [address] [id number] [place] [address] May, [facility] [place] [facility] [address] [id number] [place] [address] May, [facility] [place] [facility] [address] [facility] [id number] [place] [address] May, [facility] [place] [facility] [address] [id number] [place] [address] May, 2014 [facility] [address] [id number] [place] [address] May, 2014 [facility] [place] [facility] [address] [id number] [place] [address] May, 2014 [facility] [place] [facility] [address] [id number] [place] [address] May, [facility] [place] [facility] [address] [id number] [place] [address] Apr, [facility] [address] [id number] [place] [address] Apr, [facility] [place] [facility] [address] [id number] [place] [address] Apr, [facility] [address] [facility] [id number] [place] [address] Apr, [facility] [address] [facility] [id number] [place] [address] Apr, [facility] [place] [facility] [address] [facility] [id number] [place] [address] Apr, [facility] [address] [facility] [id number] [place] [address] Apr, [facility] [place] [facility] [address] [id number] [place] [address] Mar, [facility] [place] [facility] [address] [id number] [place] [address] 31 Mar, 2014 [facility] [place] [facility] [address] [id number] [place] [address] 18 Mar, 2014 [facility] [place] [facility] [address] [id number] [place] [address] 18 Mar, 2014 [facility] [place] [facility] [address] [facility] [id number] [place] [address] Mar, [facility] [place] [facility] [address] [id number] [place] [address] Mar, [facility] [place] [facility] [address] [id number] [place] [address] Feb, [facility] [place] [facility] [address] [id number] [place] [address] Feb, [facility] [place] [facility] [address] [id number] [place] [address] Feb, [facility] [place] [facility] [address] [id number] [place] [address] Feb, [facility] [place] [facility] [address] [id number] [place] [address] Feb, [facility] [place] [facility] [address] [id number] [place] [address] Feb, [facility] [place] [facility] [address] [id number] [place] [address] Jan, [facility] [place] [facility] [address] [id number] [place] [address] Jan, [facility] [place] [facility] [address] [id number], [place] [address] Jan, [facility] [place] [facility] [address] [id number], [place] [address] Jan, [facility] [place] [facility] [address] [id number], [place] [address] Jan, [facility] [place] [facility] [address] [id number], [place] [address] Jan, [facility] [place] [facility] [address] [id number] [place] [address] Jan, [facility] [place] [facility] [address] [id number], [place] [address] Jan, [facility] [place] [facility] [address] [id number], [place] [address] Dec, [facility] [place] [facility] [address] [id number] [place] [address] Dec, [facility] [place] [facility] [address] [id number] [place] [address] Dec, [facility] [place] [facility] [address] [id number] [place] [address] Dec, [facility] [place] [facility] [address] [id number] [place] [address] Dec, [facility] [place] [facility] [address] [id number] [place] [address] Dec, [facility] [place] [facility] [address] [id number] [place] [address] Dec, [facility] [place] [facility] [address] [id number] [place] [address] Nov, [facility] [place] [facility] [address] [id number] [place] [address] Nov, [facility] [place] [facility] [address] [id number] [place] [address] Oct, [facility] [place] [facility] [address] [id number] [place] [address] Oct, [facility] [place] [facility] [address] [id number] [place] [address] Oct, [facility] [place] [facility] [address] [id number] [place] [address] Oct, [facility] [place] [facility] [address] [id number] [place] [address] Sep, [facility] [place] [facility] [address] [id number] [place] [address] Sep, [facility] [place] [facility] [address] [id number] [place] [address] Sep, [facility] [place] [facility] [address] [id number] [place] [address] Sep, [facility] [place] [facility] [address] [id number] [place] [address] Sep, [facility] [place] [facility] [address] [id number] [place] [address] Sep, [facility] [place] [facility] [address] [id number] [place] [address] Sep, [facility] [place] [facility] [address] [id number] [place] [address] Sep, [facility] [place] [facility] [address] [id number] [place] [address] August, [facility] [place] [facility] [address] [id number] [place] [address] August, [facility] [place] [facility] [address] [id number] [place] [address] August, [facility] [place] [facility] [address] [id number] [place] [address] August, [facility] [place] [facility] [address] [id number] [place] [address] Jul, [facility] [place] [facility] [address] [id number] [place] [address] 30 Jul, 2013 [facility] [place] [facility] [address] [id number] [place] [address] 24 Jul, 2013 [facility] [place] [facility] [address] [id number] [place] [address] 24 Jul, 2013 [facility] [place] [facility] [address] [id number] [place] [address] 17 Jul, 2013 [facility] [place] [facility] [address] [id number] [place] [address] 16 Jul, 2013 [facility] [place] [facility] [address] [id number] [place] [address] 15 Jul, 2013 [facility] [place] [facility] [address] [id number] [place] [address] 15 Jul, 2013 [facility] [place] [facility] [address] [id number] [place] [address] 18 Jun, 2013 [facility] [place] [facility] [address] [id number] [place] [address] 18 Jun, 2013 [facility] [place] [facility] [address] [id number] [place] [address] Jun, [facility] [place] [facility] [address] [id number] [place] [address] Jun, [facility] [place] [facility] [address] [id number] [place] [address] Jun, [facility] [place] [facility] [address] [id number] [place] [address] Jun, [facility] [place] [facility] [address] [id number] [place] [address] Jun, [facility] [place] [facility] [address] [id number] [place] [address] Jun, [facility] [place] [facility] [address] [id number] [place] [address] May, [facility] [place] [facility] [address] [id number] [place] [address] May, [facility] [place] [facility] [address] [id number], [place] [address] Apr, [facility] [place] [facility] [address] [id number] [place] [address] Apr, [facility] [place] [facility] [address] [id number] [place] [address] Mar, [facility] [place] [facility] [address] [id number] [place] [address] Mar, [facility] [place] [facility] [address] [id number] [place] [address] 19 Mar, 2013 [facility] [address] [id number] [place] [address] 18 Mar, 2013 [facility] [place] [facility] [address] [id number] [place] [address] 18 Mar, 2013 [facility] [address] [id number] [place] [address] 17 Mar, 2013 [facility] [place] [facility] [address] [id number] [place] [address] 17 Mar, 2013 [facility] [address] [id number] [place] [address] 23 Feb, 2013 [facility] [place] [facility] [address] [id number] [place] [address] Feb, [facility] [address] [id number] [place] [address] Feb, [facility] [place] [facility] [address] [id number] [place] [address] 05 Feb, 2013 [facility] [place] [facility] [address] [id number] [place] [address] 05 Feb, 2013 [facility] [place] [facility] [address] [facility] [id number] [place] [address] 04 Feb, 2013 [facility] [place] [facility] [address] [id number] [place] [address] 26 Sep, 2012 [facility] [place] [facility] [address] [id number] [place] [address] 18 Sep, 2012 [facility] [place] [facility] [address] [id number] [place] [address] 13 Sep, 2012 [facility] [place] [facility] [address] [id number] [place] [address] 13 Sep, 2012 [facility] [place] [facility] [address] [id number] [place] [address] Dec, [facility] [place] [facility] [address] [id number] [place] [address] Nov, [facility] [address] [id number] [place] [address] Nov, [facility] [address] [id number] [place] [address] Oct, [facility] [address] [id number] [place] [address] August, [facility] [address] [id number] [place] [address] August, [facility] [address] [id number] [place] [address] August, [facility] [address] [id number] [place] [address] Jul, [facility] [address] [id number] [place] [address] Jul, [facility] [address] [id number] [place] [address] Jul, [facility] [address] [id number] [place] [address] Jun, [facility] [address] [id number] [place] [address] Jun, [facility] [address] [id number] [place] [address] Jun, [facility] [address] [id number] [place] [address] Jun, [facility] [address] [id number] [place] [address] 18 Jun, 2012 [facility] [address] [id number] [place] [address] 15 Jun, 2012 [facility] [address] [id number] [place] [address] Jun, [facility] [address] [id number] [place] [address] 18 May, 2012 [facility] [address] [id number] [place] [address] May, [facility] [address] [id number] [place] [address] 06 May, 2012 [facility] [address] [id number] [place] [address] 05 May, 2012 [facility] [address] [id number] [place] [address] Apr, [facility] [address] [id number] [place] [address] Apr, [facility] [address] [facility] [id number] [place] [address] Apr, [facility] [address] [id number] [place] [address] Mar, [facility] [address] [facility] [id number] [place] [address] Mar, [facility] [address] [facility] [id number] [place] [address] Mar, [facility] [address] [facility] [id number] [place] [address] Mar, [facility] [address] [id number], [place] [address] Mar, [facility] [address] [id number] [place] [address] Mar, [facility] [address] [facility] [id number] [place] [address] Mar, [facility] [address] [facility] [id number] [place] [address] Mar, [facility] [place] [facility] [address] [id number] [place] [address] Feb, [facility] [place] [facility] [address] [id number] [place] [address] Feb, [facility] [place] [facility] [address] [id number] [place] [address] Feb, [facility] [place] [facility] [address] [id number] [place] [address] Jan, [facility] [place] [facility] [address] [id number] [place] [address] Jan, [facility] [place] [facility] [address] [id number] [place] [address] Jan, [facility] [place] [facility] [address] [id number] [place] [address] Jan, [facility] [place] [facility] [address] [id number] [place] [address] Jan, [facility] [place] [facility] [address] [id number] [place] [address] Jan, [facility] [place] [facility] [address] [id number] [place] [address] Jan, [facility] [place] [facility] [address] [id number] [place] [address] Dec, [facility] [place] [facility] [address] [id number] [place] [address] 24 Dec, 2011 [facility] [place] [facility] [address] [id number] [place] [address] 10 Dec, 2011 [facility] [place] [facility] [address] [id number] [place] [address] 30 Nov, 2011 [facility] [place] [facility] [address] [id number] [place] [address] Nov, [facility] [place] [facility] [address] [id number] [place] [address] Nov, [facility] [place] [facility] [address] [id number] [place] [address] Nov, [facility] [place] [facility] [address] [id number] [place] [address] Oct, [facility] [place] [facility] [address] [id number] [place] [address] Oct, [facility] [place] [facility] [address] [id number] [place] [address] Oct, [facility] [place] [facility] [address] [id number] [place] [address] Sep, [facility] [place] [facility] [address] [id number] [place] [address] Sep, [facility] [place] [facility] [address] [id number] [place] [address] Sep, [facility] [place] [facility] [address] [id number] [place] [address] Sep, [facility] [place] [facility] [address] [id number] [place] [address] Sep, [facility] [place] [facility] [address] [id number] [place] [address] Sep, [facility] [place] [facility] [address] [id number] [place] [address] August, [facility] [place] [facility] [address] [id number] [place] [address] Jul, [facility] [place] [facility] [address] [id number] [place] [address] Jul, [facility] [place] [facility] [address] [id number] [place] [address] Jul, [facility] [place] [facility] [address] [id number] [place] [address] Jul, [facility] [place] [facility] [address] [id number] [place] [address] 04 Jul, 2011 [facility] [address] [id number] [place] [address] 29 Jun, 2011 [facility] [place] [facility] [address] [id number] [place] [address] 27 Jun, 2011 [facility] [address] [id number] [place] [address] 15 Jun, 2011 [facility] [place] [facility] [address] [id number] [place] [address] 15 Jun, 2011 [facility] [address] [id number] [place] [address] Jun, [facility] [place] [facility] [address] [id number] [place] [address] May, [facility] [place] [facility] [address] [id number] [place] [address] May, [facility] [place] [facility] [address] [facility] [id number] [place] [address] May, [facility] [place] [facility] [id number] [place] [address] May, [facility] [place] [facility] [address] [id number] [place] [place] [address] May, [facility] [place] [facility] [address] [facility] [id number] [place] [address] May, [facility] [place] [facility] [address] [id number] [place] [address] May, [facility] [place] [facility] [address] [facility] [id number] [place] [address] Apr, [facility] [place] [facility] [address] [facility] [id number] [place] [address] Mar, [facility] [place] [facility] [address] [facility] [id number] [place] [address] 13 Mar, 2011 [facility] [place] [facility] [address] [id number] [place] [address] 10 Mar, 2011 [facility] [place] [facility] [address] [id number] [place] [address] 10 Mar, 2011 [facility] [place] [facility] [address] [id number] [place] [address] 08 Mar, 2011 [facility] [place] [facility] [address] [id number] [place] [address] Feb, [facility] [place] [facility] [address] [id number] [place] [address] Feb, [facility] [place] [facility] [address] [id number] [place] [address] 14 Feb, 2011 [facility] [place] [facility] [address] [id number] [place] [address] Feb, [facility] [place] [facility] [address] [id number] [place] [address] Feb, [facility] [place] [facility] [address] [id number] [place] [address] Feb, [facility] [place] [facility] [address] [id number] [place] [address] Feb, [facility] [place] [facility] [address] [id number], [place] [address] Jan, [facility] [place] [facility] [address] [id number], [place] [address] 12 Dec, 2010 [facility] [place] [facility] [address] [id number] [place] [address] Oct, [facility] [place] [facility] [address] [id number] [place] [address] Jun, [facility] [place] [facility] [address] [id number] [place] [address] 23 Mar, 2010 [facility] [place] [facility] [address] [id number] [place] [address] 23 Mar, 2010 [facility] [address] [id number] [place] [address] 16 Mar, 2010 [facility] [place] [facility] [address] [id number] [place] [address] 16 Mar, 2010 [facility] [address] [id number] [place] [address] 15 Mar, 2010 [facility] [place] [facility] [address] [id number] [place] [address] 10 Mar, 2010 [facility] [address] [id number] [place] [address] 10 Mar, 2010 [facility] [address] [id number] [place] [address] 05 Mar, 2010 [facility] [address] [id number] [place] [address] 03 Mar, 2010 [facility] [address] [id number] [place] [address] 02 Mar, 2010 [facility] [address] [id number] [place] [address] 22 Jan, 2010 [facility] [address] [id number] [place] [address] Jan, [facility] [address] [id number] [place] [address] Jan, [facility] [place] [facility] [address] [id number] [place] [address] Nov, [facility] [place] [facility] [address] [id number] [place] [address] 13 Oct, 2009 [facility] [place] [facility] [address] [id number] [place] [address] 31 Mar, 2009 [facility] [place] [facility] [address] [id number] [place] [address] 20 Mar, 2009 [facility] [address] [id number], [place] [address] Mar, [facility] [address] [id number] [address] Mar, [facility] [address] [id number], [place] [address] Dec, [facility] [id number], [place] [address] August, [facility] [id number], [place] [address] August, [facility] [id number], [place] [address] Jul, [facility] [id number], [place] [address] Jan, [facility] [address] [id number], [place] [address] Jan, IMMUNIZATIONS No Known Immunizations SOCIAL HISTORY Never Assessed REASON FOR VISIT Controlled Med Refill 10/29 PLAN OF CARE VITAL SIGNS MEDICATIONS Medication Instructions Dosage Frequency Start Date End Date Duration Status Hydrocodone-Acetaminophen 10-325 MG Orally 2 times a day 1 tablet as needed 12h 13 Oct, 2017 28 days Active RESULTS No Results [...]
--- OUTSIDE RECORDS SUMMARY | 2018-09-22 02:51 | XMS REPORT ---
Author Author TAMI PALACIOS Organization [facility] Address [address] [place] [address] Care Team Providers Care Family Consumer Science Teacher Name Role Phone TAMI PALACIOS Unavailable PROBLEMS Type Condition ICD9-CM Code [id number] Code Onset Dates Condition Status SNOMED Code Problem Chronic gastritis without bleeding, unspecified gastritis type K29.50 Active 3779400 Problem Vitamin D deficiency E55.9 Active 16973870 Problem Osteoporosis M81.0 Active 87629333 Problem Unspecified abdominal pain R10.9 Active 350103917 Problem Fibromyalgia M79.7 Active 37551339 Problem Chronic pain syndrome G89.4 Active 271261376 Problem Trigger point with back pain M54.9 Active 984722675 Problem Chronic tension-type headache, not intractable G44.229 Active 281034854 Problem RUQ abdominal pain R10.11 Active 724053226 Problem Pancytopenia D61.818 Active 863209216 Problem Right sided sciatica M54.31 Active 55788607 Problem Chronic prescription opiate use Z79.891 Active 489147692 Problem Drug induced constipation K59.03 Active 895941908991880 Problem Leukopenia, unspecified type D72.819 Active 90474566 Problem Atrial fibrillation, unspecified type I48.91 Active 02803109 Problem Allergic rhinitis, unspecified allergic rhinitis type J30.9 Active 74277908 Problem Chronic obstructive pulmonary disease, unspecified COPD type J44.9 Active 81211250 Problem Hypothyroidism, unspecified hypothyroidism type E03.9 Active 14536560 Problem Other constipation K59.09 Active 650181674 Problem Porokeratosis Q82.8 Active 358070995 Problem 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 Active 488037098 Problem Allergy to intravenous contrast Z91.041 Active 693718334 Problem Vaginal atrophy N95.2 Active 103686399 Problem Major depression, recurrent F33.9 Active 61542398 Problem History of hepatitis C Z86.19 Active 41289103338073 Problem Hot flashes N95.1 Active 233656318 Problem Plantar fasciitis M72.2 Active 594065057 Problem Polyneuropathy associated with underlying disease G63 Active 814315926 Problem Primary insomnia F51.01 Active 5748167 Problem Low back pain M54.5 Active 164498739 ALLERGIES No Information ENCOUNTERS Encounter Location Date Diagnosis [facility] [id number] [place] [address] Jan, [facility] [id number] [place] [address] Nov, Onychocryptosis L60.0 [facility] [id number] [place] [address] Nov, Chronic pain syndrome G89.4 [facility] [id number] [place] [address] Nov, Trochanteric bursitis of both hips M70.61 [facility] [id number] [place] [address] Oct, Hypothyroidism, unspecified hypothyroidism type E03.9 and Atrial fibrillation, unspecified type I48.91 [facility] [id number] [place] [address] Oct, Fibromyalgia M79.7 ; Chronic pain syndrome G89.4 ; Hypothyroidism, unspecified hypothyroidism type E03.9 ; Overweight (BMI 25.0-29.9) E66.3 and Atrial fibrillation, unspecified type I48.91 [facility] [id number] [place] [address] Oct, Chronic pain syndrome G89.4 [facility] [id number] [place] [address] Sep, Chronic pain syndrome G89.4 [facility] [id number] [place] [address] August, Somatic dysfunction of lumbar region M99.03 and Somatic dysfunction of pelvis region M99.05 [facility] [id number] [place] [address] August, Chronic pain syndrome G89.4 [facility] [id number] [place] [address] Jul, Trochanteric bursitis of left hip M70.62 and Trochanteric bursitis, right hip M70.61 [facility] [id number] [place] [address] Jul, [facility] [id number] [place] [address] Jul, Chronic pain syndrome G89.4 [facility] [id number] [place] [address] Jul, Hypothyroidism, unspecified hypothyroidism type E03.9 [facility] [id number] [place] [address] Jul, Hypothyroidism, unspecified hypothyroidism type E03.9 [facility] [id number] [place] [address] Jul, Chronic tension-type headache, not intractable G44.229 ; Atrial fibrillation, unspecified type I48.91 ; Chronic pain syndrome G89.4 ; Hypothyroidism, unspecified hypothyroidism type E03.9 ; Pancytopenia D61.818 ; History of hepatitis C Z86.19 ; Vaginal atrophy N95.2 ; RUQ abdominal pain R10.11 ; Chronic prescription opiate use Z79.891 ; Osteoporosis M81.0 and Screening for breast cancer Z12.31 [facility] [id number] [place] [address] Jun, [facility] [id number] [place] [address] May, [facility] [id number] [place] [address] May, [facility] [id number] [place] [address] May, [facility] [id number] [place] [address] Apr, [facility] [id number] [place] [address] Apr, Hypothyroidism, unspecified hypothyroidism type E03.9 [facility] [id number] [place] [address] Apr, Hypothyroidism, unspecified hypothyroidism type E03.9 and Leukopenia, unspecified type D72.819 [facility] [id number] [place] [address] Mar, [facility] [id number] [place] [address] Mar, Leukopenia, unspecified type D72.819 [facility] [id number] [place] [address] Mar, Hypothyroidism, unspecified hypothyroidism type E03.9 and Low hemoglobin D64.9 [facility] [id number] [place] [address] Mar, Hypothyroidism, unspecified hypothyroidism type E03.9 [facility] [id number] [place] [address] Mar, Osteoporosis M81.0 ; Low hemoglobin D64.9 and Hypothyroidism, unspecified hypothyroidism type E03.9 [facility] [id number] [place] [address] Mar, Hypothyroidism, unspecified hypothyroidism type E03.9 ; Bilirubin in urine R82.2 and Pancytopenia D61.818 [facility] [id number] [place] [address] Feb, [facility] [id number] [place] [address] Feb, Cough R05 and Bronchitis J40 [facility] [address] [place] [address] 14 Feb, 2017 Other viral agents as the cause of diseases classified elsewhere B97.89 and Acute upper respiratory infection, unspecified J06.9 [facility] [id number] [place] [address] Feb, Fibromyalgia M79.7 ; Chronic pain syndrome G89.4 ; Hypothyroidism, unspecified hypothyroidism type E03.9 ; Primary insomnia F51.01 ; Osteoporosis M81.0 ; Vision abnormalities H53.9 ; Pancytopenia D61.818 ; BMI 28.0-28.9,adult Z68.28 and Encounter for immunization Z23 [address] [address] Feb, Neuroma D36.10 and Capsulitis of right foot M77.[address] [address] Feb, [facility] [address] [address] Feb, Hypothyroidism, unspecified hypothyroidism type E03.9 [facility] [address] [address] Jan, [facility] [id number] [place] [address] Jan, Atrial fibrillation, unspecified type I48.91 [facility] [id number] [place] [address] Jan, [facility] [address] [address] Jan, Fibromyalgia M79.7 ; Atrial fibrillation, unspecified type I48.91 ; Pain of left hand M79.642 ; Pain in right hand M79.641 ; Chronic prescription opiate use Z79.891 ; Chronic pain syndrome G89.4 ; Elevated fasting glucose R73.01 and Hypothyroidism, unspecified hypothyroidism type E03.9 [facility] [address] [place] [address] Jan, [facility] [id number] [place] [address] Dec, Trochanteric bursitis of both hips M70.61 [facility] [id number] [place] [address] Dec, [facility] [address] [address] Dec, [facility] [id number] [place] [address] Nov, [facility] [address] [address] Nov, Unilateral headache R51 [facility] [id number] [place] [address] Nov, [facility] [id number] [place] [address] Oct, Unilateral headache R51 ; 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 and Allergy to intravenous contrast Z91.041 [facility] [id number] [place] [address] Oct, [facility] [id number] [place] [address] Oct, [facility] [id number] [place] [address] Sep, Hypothyroidism, unspecified hypothyroidism type E03.9 [facility] [id number] [place] [address] Sep, Hypothyroidism, unspecified hypothyroidism type E03.9 and Bilirubin in urine R82.2 [facility] [id number] [place] [address] Sep, Trochanteric bursitis of both hips M70.61 [facility] [id number] [place] [address] Sep, Hypothyroidism, unspecified hypothyroidism type E03.9 ; Dysuria R30.0 ; Chronic tension-type headache, not intractable G44.229 and Drug induced constipation K59.03 [facility] [id number] [place] [address] Sep, [facility] [id number] [place] [address] Sep, [facility] [id number] [place] [address] August, [facility] [id number] [place] [address] Jul, [facility] [id number] [place] [address] Jul, Trochanteric bursitis of right hip M70.61 [facility] [id number] [place] [address] Jul, Hypothyroidism, unspecified hypothyroidism type E03.9 [facility] [id number] [place] [address] Jul, Fibromyalgia M79.7 ; Chronic pain syndrome G89.4 ; Hypothyroidism, unspecified hypothyroidism type E03.9 and Other constipation K59.09 [facility] [address] [address] Jun, Swollen tonsil J35.1 and Strep throat J02.0 [facility] [address] [place] [address] Jun, [facility] [id number] [place] [address] Jun, Acute maxillary sinusitis J01.00 [facility] [id number] [place] [address] Jun, Hypothyroidism, unspecified hypothyroidism type E03.9 [facility] [id number] [place] [address] Jun, Chronic pain syndrome G89.4 ; Fibromyalgia M79.7 ; Hypothyroidism, unspecified hypothyroidism type E03.9 and Chronic prescription opiate use Z79.891 [facility] [id number] [place] [address] May, [facility] [address] [address] Apr, Hypothyroidism, unspecified hypothyroidism type E03.9 [facility] [id number] [place] [address] Apr, [facility] [address] [address] Apr, Lipid screening Z13.220 and Hypothyroidism, unspecified hypothyroidism type E03.[address] [address] Apr, [facility] [id number] [place] [address] Mar, Trochanteric bursitis of both hips M70.61 [place] [id number] [place] [address] Mar, [facility] [id number] [place] [address] Mar, Plantar fasciitis M72.2 and Porokeratosis Q82.8 [facility] [id number] [place] [address] Feb, Lipid screening Z13.220 ; Vitamin D deficiency E55.9 and Hypothyroidism, unspecified hypothyroidism type E03.9 [facility] [id number] [place] [address] 16 Feb, 2016 Chronic pain syndrome G89.4 ; Hypothyroidism, unspecified hypothyroidism type E03.9 ; Pancytopenia D61.818 ; Vaginal atrophy N95.2 ; Chronic gastritis without bleeding, unspecified gastritis type K29.50 ; Vitamin D deficiency E55.9 ; Chronic prescription opiate use Z79.891 ; Adverse effect of other opioids, initial encounter T40.2X5A ; Drug induced constipation K59.03 ; Lipid screening Z13.220 and Encounter for immunization Z23 [facility] [id number] [place] [address] 04 Feb, 2016 [facility] [address] [address] Feb, Ingrown toenail L60.0 [facility] [id number] [place] [address] Jan, [facility] [address] [address] Jan, Trochanteric bursitis of both hips M70.61 [facility] [address] [address] Jan, [facility] [id number] [place] [address] Jan, [facility] [address] [address] Jan, [facility] [id number] [place] [address] Jan, Right sided sciatica M54.31 [facility] [id number] [place] [address] Dec, Onychomycosis B35.1 [facility] [id number] [place] [address] Dec, [facility] [id number] [place] [address] Dec, [facility] [id number] [place] [address] 09 Dec, 2015 [facility] [address] [address] Dec, Osteoarthritis of right hip, unspecified osteoarthritis type M16.11 and Bursitis of right hip M70.71 [facility] [id number] [place] [address] Nov, [facility] [id number] [place] [address] Nov, [facility] [id number] [place] [address] Nov, [facility] [id number] [place] [address] Nov, Hypothyroidism, unspecified hypothyroidism type E03.9 ; Vitamin D deficiency E55.9 and History of hepatitis C Z86.19 [facility] [id number] [place] [address] Nov, Right upper quadrant pain R10.11 ; History of hepatitis C Z86.19 and Low back pain M54.5 [facility] [id number] [place] [address] Oct, Trochanteric bursitis, right hip M70.61 [facility] [id number] [place] [address] Oct, [facility] [id number] [place] [address] Oct, [facility] [id number] [place] [address] Oct, Trochanteric bursitis of both hips M70.61 and Right sided sciatica M54.31 [facility] [id number] [place] [address] Oct, Trochanteric bursitis of both hips M70.61 [facility] [address] [place] [address] Oct, RUQ abdominal pain R10.11 [facility] [address] [place] [address] 13 Oct, 2015 Sciatic leg pain M54.30 [facility] [id number] [place] [address] Oct, RUQ abdominal pain R10.11 [facility] [id number] [place] [address] 07 Oct, 2015 RUQ abdominal pain R10.11 ; History of hepatitis C Z86.19 and Trigger point with back pain M54.9 [facility] [id number] [place] [address] Sep, [facility] [id number] [place] [address] Sep, Right sided sciatica M54.31 [facility] [id number] [place] [address] 06 Sep, 2015 Hypothyroidism, unspecified hypothyroidism type E03.9 and Vitamin D deficiency E55.9 [facility] [id number] [place] [address] Sep, Plantar fasciitis M72.2 and Porokeratosis Q82.8 [facility] [id number] [place] [address] Sep, Hypothyroidism, unspecified hypothyroidism type E03.9 ; Chronic pain syndrome G89.4 ; Vitamin D deficiency E55.9 and Polyneuropathy associated with underlying disease G63 [facility] [address] [place] [address] August, [facility] [id number] [place] [address] Jul, Plantar fasciitis M72.2 [facility] [id number] [place] [address] Jul, Trochanteric bursitis, right hip M70.61 [facility] [id number] [place] [address] Jul, Hypothyroidism, unspecified hypothyroidism type E03.9 [facility] [id number] [place] [address] Jul, Hypothyroidism, unspecified hypothyroidism type E03.9 ; Chronic pain syndrome G89.4 and Polyneuropathy associated with underlying disease G63 [facility] [address] [address] 10 Jun, 2015 Trochanteric bursitis of both hips M70.61 [facility] [address] [address] 08 Jun, 2015 Vitamin D deficiency E55.9 ; Osteoporosis M81.0 ; Low back pain M54.5 and Plantar fasciitis M72.2 [facility] [address] [address] 26 May, 2015 Vitamin D deficiency E55.9 and Hypothyroidism, unspecified hypothyroidism type E03.9 [facility] [id number] [place] [address] 23 May, 2015 Acute maxillary sinusitis J01.00 [facility] [address] [address] 18 May, 2015 Osteoporosis M81.0 and Hypothyroidism, unspecified hypothyroidism type E03.9 [facility] [id number] [place] [address] 16 May, 2015 Osteoporosis M81.0 [facility] [id number] [place] [address] 15 May, 2015 [facility] [id number] [place] [address] Apr, [facility] [id number] [place] [address] Apr, Trochanteric bursitis of both hips M70.61 [facility] [address] [address] Apr, Hypothyroidism, unspecified hypothyroidism type E03.9 [facility] [id number] [place] [address] Apr, Chronic pain syndrome G89.4 ; Bilateral low back pain with sciatica, sciatica laterality unspecified M54.40 ; Pain in right hip M25.551 ; Pain in left hip M25.552 ; Chronic prescription opiate use Z79.899 ; Primary insomnia F51.01 and Hypothyroidism, unspecified hypothyroidism type E03.9 [facility] [address] [address] Mar, [facility] [facility] [address] [address] Feb, [facility] [address] [address] 16 Feb, 2015 Chronic pain syndrome G89.4 and Major depression F32.9 [facility] [address] [address] 16 Feb, 2015 Fatigue R53.83 [facility] [address] [address] 13 Feb, 2015 History of fracture Z87.81 [facility] [address] [address] 12 Feb, 2015 Major depression, recurrent F33.9 and Generalized anxiety disorder F41.1 [facility] [id number] [place] [address] Feb, [facility] [address] [address] Jan, Hypothyroidism, unspecified hypothyroidism type E03.9 [facility] [address] [address] Jan, Abdominal pain R10.9 and Hypothyroidism, unspecified hypothyroidism type E03.9 [facility] [address] [address] Jan, Abdominal pain R10.9 [facility] [id number] [place] [address] Jan, Hypothyroidism, unspecified hypothyroidism type E03.9 [facility] [id number] [place] [address] Jan, [facility] [address] [address] Jan, 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/o 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 Z01.419 and Hypothyroidism, unspecified hypothyroidism type E03.9 [place] [address] [address] Jan, 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/o 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 Z01.419 ; Abdominal pain R10.9 ; Dyspareunia N94.1 ; Encounter for immunization Z23 ; History of fracture Z87.81 ; Fatigue R53.83 ; Throat fullness R68.89 ; Bruises easily R23.8 ; Hot flashes N95.1 ; Depression F32.9 and Vaginal atrophy N95.2 [place] [id number] [place] [phone] Jan, Hypothyroidism, unspecified hypothyroidism type E03.9 [place] [id number] [place] [phone] Jan, Unspecified abdominal pain R10.9 ; Chronic obstructive pulmonary disease, unspecified COPD type J44.9 ; Allergic rhinitis, unspecified allergic rhinitis type J30.9 ; Chronic pain syndrome G89.4 ; Hypothyroidism, unspecified hypothyroidism type E03.9 ; Chest pain, unspecified chest pain type R07.9 and Plantar fasciitis M72.2 [place] [id number] [place] [phone] 08 Jan, 2015 Trochanteric bursitis of both hips M70.61 [place] [address] [address] Dec, [facility] [id number] [address] Nov, [facility] [id number] [place] [id number] Nov, [facility] [id number] [place] [phone] Nov, Constipation 564.00 [facility] [address] [id number] [place] [address] Oct, Chronic pain 338.29 and Hypothyroidism 244.9 [facility] [id number] [place] [address] Oct, [facility] [id number] [place] [address] Sep, [facility] [id number] [place] [address] Sep, [facility] [id number] [place] [address] Sep, [facility] [id number] [place] [address] Sep, [facility] [id number] [place] [address] Sep, [facility] [id number] [place] [address] Sep, [facility] [id number] [place] [address] Sep, COPD exacerbation 491.21 ; Chronic pain 338.29 ; Hypothyroidism 244.9 and Pancytopenia 284.19 [facility] [id number] [address] August, [facility] [id number] [place] [address] Jul, [facility] [place] [facility] [address] [id number] [place] [address] Jul, [facility] [place] [facility] [address] [id number] [place] [address] Jun, [facility] [place] [facility] [address] [id number] [place] [address] Jun, [facility] [place] [facility] [address] [id number] [place] [address] Jun, [facility] [place] [facility] [address] [id number] [place] [address] Jun, [facility] [place] [facility] [address] [id number] [place] [address] Jun, [facility] [place] [facility] [address] [facility] [id number] [place] [address] May, [facility] [place] [facility] [address] [id number] [place] [address] May, [facility] [place] [facility] [address] [id number] [place] [address] May, [facility] [place] [facility] [address] [facility] [id number] [place] [address] May, [facility] [place] [facility] [address] [facility] [id number] [place] [address] May, [facility] [place] [facility] [address] [id number], [place] [address] May, [facility] [place] [facility] [address] [id number] [place] [address] May, [facility] [place] [facility] [address] [id number] [place] [address] May, [facility] [place] [facility] [address] [facility] [id number] [place] [address] May, [facility] [place] [facility] [address] [id number] [place] [address] May, 2014 [facility] [address] [id number] [place] [address] May, 2014 [facility] [place] [facility] [address] [id number] [place] [address] May, 2014 [facility] [place] [facility] [address] [id number] [place] [address] May, [facility] [place] [facility] [address] [id number] [place] [address] Apr, [facility] [address] [id number] [place] [address] Apr, [facility] [place] [facility] [address] [id number] [place] [address] Apr, [facility] [address] [facility] [id number] [place] [address] Apr, [facility] [address] [facility] [id number] [place] [address] Apr, [facility] [place] [facility] [address] [facility] [id number] [place] [address] Apr, [facility] [address] [facility] [id number] [place] [address] Apr, [facility] [place] [facility] [address] [id number] [place] [address] Mar, [facility] [place] [facility] [address] [id number] [place] [address] 31 Mar, 2014 [facility] [place] [facility] [address] [id number] [place] [address] 18 Mar, 2014 [facility] [place] [facility] [address] [id number] [place] [address] 18 Mar, 2014 [facility] [place] [facility] [address] [facility] [id number] [place] [address] Mar, [facility] [place] [facility] [address] [id number] [place] [address] Mar, [facility] [place] [facility] [address] [id number] [place] [address] Feb, [facility] [place] [facility] [address] [id number] [place] [address] Feb, [facility] [place] [facility] [address] [id number] [place] [address] Feb, [facility] [place] [facility] [address] [id number] [place] [address] Feb, [facility] [place] [facility] [address] [id number] [place] [address] Feb, [facility] [place] [facility] [address] [id number] [place] [address] Feb, [facility] [place] [facility] [address] [id number] [place] [address] Jan, [facility] [place] [facility] [address] [id number] [place] [address] Jan, [facility] [place] [facility] [address] [id number], [place] [address] Jan, [facility] [place] [facility] [address] [id number], [place] [address] Jan, [facility] [place] [facility] [address] [id number], [place] [address] Jan, [facility] [place] [facility] [address] [id number], [place] [address] Jan, [facility] [place] [facility] [address] [id number] [place] [address] Jan, [facility] [place] [facility] [address] [id number], [place] [address] Jan, [facility] [place] [facility] [address] [id number], [place] [address] Dec, [facility] [place] [facility] [address] [id number] [place] [address] Dec, [facility] [place] [facility] [address] [id number] [place] [address] Dec, [facility] [place] [facility] [address] [id number] [place] [address] Dec, [facility] [place] [facility] [address] [id number] [place] [address] Dec, [facility] [place] [facility] [address] [id number] [place] [address] Dec, [facility] [place] [facility] [address] [id number] [place] [address] Dec, [facility] [place] [facility] [address] [id number] [place] [address] Nov, [facility] [place] [facility] [address] [id number] [place] [address] Nov, [facility] [place] [facility] [address] [id number] [place] [address] Oct, [facility] [place] [facility] [address] [id number] [place] [address] Oct, [facility] [place] [facility] [address] [id number] [place] [address] Oct, [facility] [place] [facility] [address] [id number] [place] [address] Oct, [facility] [place] [facility] [address] [id number] [place] [address] Sep, [facility] [place] [facility] [address] [id number] [place] [address] Sep, [facility] [place] [facility] [address] [id number] [place] [address] Sep, [facility] [place] [facility] [address] [id number] [place] [address] Sep, [facility] [place] [facility] [address] [id number] [place] [address] Sep, [facility] [place] [facility] [address] [id number] [place] [address] Sep, [facility] [place] [facility] [address] [id number] [place] [address] Sep, [facility] [place] [facility] [address] [id number] [place] [address] Sep, [facility] [place] [facility] [address] [id number] [place] [address] August, [facility] [place] [facility] [address] [id number] [place] [address] August, [facility] [place] [facility] [address] [id number] [place] [address] August, [facility] [place] [facility] [address] [id number] [place] [address] August, [facility] [place] [facility] [address] [id number] [place] [address] Jul, [facility] [place] [facility] [address] [id number] [place] [address] 30 Jul, 2013 [facility] [place] [facility] [address] [id number] [place] [address] 24 Jul, 2013 [facility] [place] [facility] [address] [id number] [place] [address] 24 Jul, 2013 [facility] [place] [facility] [address] [id number] [place] [address] 17 Jul, 2013 [facility] [place] [facility] [address] [id number] [place] [address] 16 Jul, 2013 [facility] [place] [facility] [address] [id number] [place] [address] 15 Jul, 2013 [facility] [place] [facility] [address] [id number] [place] [address] 15 Jul, 2013 [facility] [place] [facility] [address] [id number] [place] [address] 18 Jun, 2013 [facility] [place] [facility] [address] [id number] [place] [address] 18 Jun, 2013 [facility] [place] [facility] [address] [id number] [place] [address] Jun, [facility] [place] [facility] [address] [id number] [place] [address] Jun, [facility] [place] [facility] [address] [id number] [place] [address] Jun, [facility] [place] [facility] [address] [id number] [place] [address] Jun, [facility] [place] [facility] [address] [id number] [place] [address] Jun, [facility] [place] [facility] [address] [id number] [place] [address] Jun, [facility] [place] [facility] [address] [id number] [place] [address] May, [facility] [place] [facility] [address] [id number] [place] [address] May, [facility] [place] [facility] [address] [id number], [place] [address] Apr, [facility] [place] [facility] [address] [id number] [place] [address] Apr, [facility] [place] [facility] [address] [id number] [place] [address] Mar, [facility] [place] [facility] [address] [id number] [place] [address] Mar, [facility] [place] [facility] [address] [id number] [place] [address] 19 Mar, 2013 [facility] [address] [id number] [place] [address] 18 Mar, 2013 [facility] [place] [facility] [address] [id number] [place] [address] 18 Mar, 2013 [facility] [address] [id number] [place] [address] 17 Mar, 2013 [facility] [place] [facility] [address] [id number] [place] [address] 17 Mar, 2013 [facility] [address] [id number] [place] [address] 23 Feb, 2013 [facility] [place] [facility] [address] [id number] [place] [address] Feb, [facility] [address] [id number] [place] [address] Feb, [facility] [place] [facility] [address] [id number] [place] [address] 05 Feb, 2013 [facility] [place] [facility] [address] [id number] [place] [address] 05 Feb, 2013 [facility] [place] [facility] [address] [facility] [id number] [place] [address] 04 Feb, 2013 [facility] [place] [facility] [address] [id number] [place] [address] 26 Sep, 2012 [facility] [place] [facility] [address] [id number] [place] [address] 18 Sep, 2012 [facility] [place] [facility] [address] [id number] [place] [address] 13 Sep, 2012 [facility] [place] [facility] [address] [id number] [place] [address] 13 Sep, 2012 [facility] [place] [facility] [address] [id number] [place] [address] Dec, [facility] [place] [facility] [address] [id number] [place] [address] Nov, [facility] [address] [id number] [place] [address] Nov, [facility] [address] [id number] [place] [address] Oct, [facility] [address] [id number] [place] [address] August, [facility] [address] [id number] [place] [address] August, [facility] [address] [id number] [place] [address] August, [facility] [address] [id number] [place] [address] Jul, [facility] [address] [id number] [place] [address] Jul, [facility] [address] [id number] [place] [address] Jul, [facility] [address] [id number] [place] [address] Jun, [facility] [address] [id number] [place] [address] Jun, [facility] [address] [id number] [place] [address] Jun, [facility] [address] [id number] [place] [address] Jun, [facility] [address] [id number] [place] [address] 18 Jun, 2012 [facility] [address] [id number] [place] [address] 15 Jun, 2012 [facility] [address] [id number] [place] [address] Jun, [facility] [address] [id number] [place] [address] 18 May, 2012 [facility] [address] [id number] [place] [address] May, [facility] [address] [id number] [place] [address] 06 May, 2012 [facility] [address] [id number] [place] [address] 05 May, 2012 [facility] [address] [id number] [place] [address] Apr, [facility] [address] [id number] [place] [address] Apr, [facility] [address] [facility] [id number] [place] [address] Apr, [facility] [address] [id number] [place] [address] Mar, [facility] [address] [facility] [id number] [place] [address] Mar, [facility] [address] [facility] [id number] [place] [address] Mar, [facility] [address] [facility] [id number] [place] [address] Mar, [facility] [address] [id number], [place] [address] Mar, [facility] [address] [id number] [place] [address] Mar, [facility] [address] [facility] [id number] [place] [address] Mar, [facility] [address] [facility] [id number] [place] [address] Mar, [facility] [place] [facility] [address] [id number] [place] [address] Feb, [facility] [place] [facility] [address] [id number] [place] [address] Feb, [facility] [place] [facility] [address] [id number] [place] [address] Feb, [facility] [place] [facility] [address] [id number] [place] [address] Jan, [facility] [place] [facility] [address] [id number] [place] [address] Jan, [facility] [place] [facility] [address] [id number] [place] [address] Jan, [facility] [place] [facility] [address] [id number] [place] [address] Jan, [facility] [place] [facility] [address] [id number] [place] [address] Jan, [facility] [place] [facility] [address] [id number] [place] [address] Jan, [facility] [place] [facility] [address] [id number] [place] [address] Jan, [facility] [place] [facility] [address] [id number] [place] [address] Dec, [facility] [place] [facility] [address] [id number] [place] [address] 24 Dec, 2011 [facility] [place] [facility] [address] [id number] [place] [address] 10 Dec, 2011 [facility] [place] [facility] [address] [id number] [place] [address] 30 Nov, 2011 [facility] [place] [facility] [address] [id number] [place] [address] Nov, [facility] [place] [facility] [address] [id number] [place] [address] Nov, [facility] [place] [facility] [address] [id number] [place] [address] Nov, [facility] [place] [facility] [address] [id number] [place] [address] Oct, [facility] [place] [facility] [address] [id number] [place] [address] Oct, [facility] [place] [facility] [address] [id number] [place] [address] Oct, [facility] [place] [facility] [address] [id number] [place] [address] Sep, [facility] [place] [facility] [address] [id number] [place] [address] Sep, [facility] [place] [facility] [address] [id number] [place] [address] Sep, [facility] [place] [facility] [address] [id number] [place] [address] Sep, [facility] [place] [facility] [address] [id number] [place] [address] Sep, [facility] [place] [facility] [address] [id number] [place] [address] Sep, [facility] [place] [facility] [address] [id number] [place] [address] August, [facility] [place] [facility] [address] [id number] [place] [address] Jul, [facility] [place] [facility] [address] [id number] [place] [address] Jul, [facility] [place] [facility] [address] [id number] [place] [address] Jul, [facility] [place] [facility] [address] [id number] [place] [address] Jul, [facility] [place] [facility] [address] [id number] [place] [address] 04 Jul, 2011 [facility] [address] [id number] [place] [address] 29 Jun, 2011 [facility] [place] [facility] [address] [id number] [place] [address] 27 Jun, 2011 [facility] [address] [id number] [place] [address] 15 Jun, 2011 [facility] [place] [facility] [address] [id number] [place] [address] 15 Jun, 2011 [facility] [address] [id number] [place] [address] Jun, [facility] [place] [facility] [address] [id number] [place] [address] May, [facility] [place] [facility] [address] [id number] [address] May, [facility] [place] [facility] [address] [facility] [id number] [place] [address] May, [facility] [place] [facility] [id number] [address] May, [facility] [place] [facility] [address] [id number] [address] May, [facility] [place] [facility] [address] [facility] [id number] [place] [address] May, [facility] [place] [facility] [address] [id number] [place] [address] May, [facility] [place] [facility] [address] [facility] [id number] [place] [address] Apr, [facility] [place] [facility] [address] [facility] [id number] [place] [address] Mar, [facility] [place] [facility] [address] [facility] [id number] [place] [address] 13 Mar, 2011 [facility] [place] [facility] [address] [id number] [place] [address] 10 Mar, 2011 [facility] [place] [facility] [address] [id number] [place] [address] 10 Mar, 2011 [facility] [place] [facility] [address] [id number] [place] [address] 08 Mar, 2011 [facility] [place] [facility] [address] [id number] [place] [address] Feb, [facility] [place] [facility] [address] [id number] [place] [address] Feb, [facility] [place] [facility] [address] [id number] [place] [address] 14 Feb, 2011 [facility] [place] [facility] [address] [id number] [place] [address] Feb, [facility] [place] [facility] [address] [id number] [place] [address] Feb, [facility] [place] [facility] [address] [id number] [place] [address] Feb, [facility] [place] [facility] [address] [id number] [place] [address] Feb, [facility] [place] [facility] [address] [id number], [place] [address] Jan, [facility] [place] [facility] [address] [id number], [place] [address] 12 Dec, 2010 [facility] [place] [facility] [address] [id number] [place] [address] Oct, [facility] [place] [facility] [address] [id number] [place] [address] Jun, [facility] [place] [facility] [address] [id number] [place] [address] 23 Mar, 2010 [facility] [place] [facility] [address] [id number] [place] [address] 23 Mar, 2010 [facility] [address] [id number] [place] [address] 16 Mar, 2010 [facility] [place] [facility] [address] [id number] [place] [address] 16 Mar, 2010 [facility] [address] [id number] [place] [address] 15 Mar, 2010 [facility] [place] [facility] [address] [id number] [place] [address] 10 Mar, 2010 [facility] [address] [id number] [place] [address] 10 Mar, 2010 [facility] [address] [id number] [place] [address] 05 Mar, 2010 [facility] [address] [id number] [place] [address] 03 Mar, 2010 [facility] [address] [id number] [place] [address] 02 Mar, 2010 [facility] [address] [id number] [place] [address] 22 Jan, 2010 [facility] [address] [id number] [place] [address] Jan, [facility] [address] [id number] [place] [address] Jan, [facility] [place] [facility] [address] [id number] [place] [address] Nov, [facility] [place] [facility] [address] [id number] [place] [address] 13 Oct, 2009 [facility] [place] [facility] [address] [id number] [place] [address] 31 Mar, 2009 [facility] [place] [facility] [address] [id number] [place] [address] 20 Mar, 2009 [facility] [address] [id number] [address] Mar, [facility] [address] [id number] [address] Mar, [facility] [address] [id number] [address] Dec, [facility] [id number], [place] [address] August, [facility] [id number], [place] [address] August, [facility] [id number] [address] Jul, [facility] [id number], [place] [address] Jan, [facility] [address] [id number] [address] Jan, IMMUNIZATIONS No Known Immunizations SOCIAL HISTORY Never Assessed REASON FOR VISIT Controlled Medication Refill PLAN OF CARE VITAL SIGNS MEDICATIONS Medication Instructions Dosage Frequency Start Date End Date Duration Status Hydrocodone-Acetaminophen 10-325 MG Orally 2 times a day 1 tablet as needed 12h 15 Sep, 2017 28 days Active RESULTS No Results [...]
--- NOTE | 2018-09-22 02:52 | ED Abdominal Pain ---
General Stated Complaint: SEVERE SIDE PAIN Source of Information: Patient History of Present Illness Date Seen by Provider: Sep 22, 2018 Time Seen by Provider: 02:45 Allergies and Home Medications Allergies Coded Allergies: Iodinated Contrast- Oral and IV Dye (Verified Allergy, Unknown, 07/10/18) diltiazem (Verified Allergy, Unknown, 07/10/18) Home Medications Apixaban 5 Mg Tablet, 5 MG PO BID Prescribed by: HOA JORDAN on 01/17/17 1041 Azithromycin 250 Mg Tablet, 250 MG PO UD TAKE 2 TABLETS ON DAY ONE THEN TAKE 1 TABLET DAILY FOR FOUR MORE DAYS Prescribed by: ANNA CRESPO on 07/10/18 1843 Hydrocodone/Acetaminophen 1 Each Tablet, 1 TAB PO TID PRN for PAIN-MODERATE, (Reported) Levothyroxine Sodium 200 Mcg Tablet, 400 MCG PO DAILY, (Reported) Metoprolol Succinate 25 Mg Tab.er.24h, 25 MG PO DAILY Prescribed by: HOA JORDAN on 01/17/17 1041 Prednisone 20 Mg Tab, 40 MG PO DAILY Prescribed by: ANNA CRESPO on 07/10/18 184 Past Frcaftw-Ebeiri-Wspmjd Hx Patient Social History Type Used: Cigarettes Former Smoker, Quit: Apr 19, 2012 2nd Hand Smoke Exposure: No Recent Foreign Travel: No Contact w/Someone Who Travel: No Recent Hopitalizations: Yes (BRAIN AN 1995, BLADDER TIE UP , TVH WITH BSO 1999, GALLBLADDER 2005) Immunizations Up To Date Tetanus Booster (TDap): Unknown PED Vaccines UTD: No Date of Pneumonia Vaccine: Jan 31, 2013 Date of Influenza Vaccine: Jan 17, 2014 Seasonal Allergies Seasonal Allergies: No Past Medical History Surgeries: Yes (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) Bladder Surgery, Gallbladder, Hysterectomy Respiratory: Yes COPD Cardiac: No Neurological: No Reproductive Disorders: No 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 Sexually Transmitted Disease: No HIV/AIDS: No Genitourinary: No Gastrointestinal: Yes Irritable Bowel Fractures Endocrine: Yes (GRAVES DISEASE) Hypothyroidsim HEENT: No Cancer: No Psychosocial: No Integumentary: No Blood Disorders: No Adverse Reaction/Blood Tranf: No Family Medical History Arthritis 19 FATHER Cancer G8 SISTER 19 MOTHER Cardiovascular disease 19 FATHER Completed stroke 19 FATHER Family history: Cardiovascular disease 19 FATHER Kidney disease 19 FATHER No Family History of: AIDS Abdominal aortic aneurysm Butler's disease Alcoholism Alzheimer's disease Aphasia Cancer of mouth Cataracts Colon cancer Congenital disease Coronary thrombosis Cystic fibrosis Deafness or hearing loss Dementia Diabetes mellitus Drug abuse Dysphasia Fibrocystic disease of breast Gastroenteritis Glaucoma Headache disorder Hypercholesterolemia Hypertension Infertility Myocardial infarction Neoplasm Not obtainable due to adoption Osteoporosis Parkinson's disease Prostate cancer Respiratory disorder Seizure disorder Severe allergy Thyroid disease Tuberculosis Visual disorder Cancer, CVA, Hypertension, Renal Disease Physical Exam Vital Signs Vital Signs - First Documented 09/22/18 02:47 Temp 97.2 Pulse 68 Resp 20 B/P (MAP) 134/98 (110) Pulse Ox 99 O2 Delivery Room Air Capillary Refill : Height/Weight/BMI Height: 5'7.00" Weight: 190lbs. 0.0oz. 86.767350yx; 28.2 BMI Method:Stated Progress/Results/Core Measures Results/Orders Lab Results Laboratory Tests Test 09/22/18 02:55 09/22/18 03:30 Range/Units White Blood Count 7.1 4.3-11.0 10^3/uL Red Blood Count 4.38 4.35-5.85 10^6/uL Hemoglobin 13.1 11.5-16.0 G/DL Hematocrit 40 35-52 % Mean Corpuscular Volume 92 80-99 FL Mean Corpuscular Hemoglobin 30 25-34 PG Mean Corpuscular Hemoglobin Concent 33 32-36 G/DL Red Cell Distribution Width 12.9 10.0-14.5 % Platelet Count 240 130-400 10^3/uL Mean Platelet Volume 9.7 7.4-10.4 FL Neutrophils (%) (Auto) 53 42-75 % Lymphocytes (%) (Auto) 34 12-44 % Monocytes (%) (Auto) 10 0-12 % Eosinophils (%) (Auto) 2 0-10 % Basophils (%) (Auto) 1 0-10 % Neutrophils # (Auto) 3.8 1.8-7.8 X 10^3 Lymphocytes # (Auto) 2.4 1.0-4.0 X 10^3 Monocytes # (Auto) 0.7 0.0-1.0 X 10^3 Eosinophils # (Auto) 0.1 0.0-0.3 10^3/uL Basophils # (Auto) 0.0 0.0-0.1 10^3/uL Prothrombin Time 16.4 H 12.2-14.7 SEC INR Comment 1.3 0.8-1.4 Activated Partial Thromboplast Time 28 24-35 SEC Sodium Level 141 135-145 MMOL/L Potassium Level 3.6 3.6-5.0 MMOL/L Chloride Level 109 H 98-107 MMOL/L Carbon Dioxide Level 19 L 21-32 MMOL/L Anion Gap 13 5-14 MMOL/L Blood Urea Nitrogen 18 7-18 MG/DL Creatinine 0.80 0.60-1.30 MG/DL Estimat Glomerular Filtration Rate > 60 BUN/Creatinine Ratio 23 Glucose Level 96 70-105 MG/DL Calcium Level 9.7 8.5-10.1 MG/DL Corrected Calcium 9.6 8.5-10.1 MG/DL Total Bilirubin 0.7 0.1-1.0 MG/DL Aspartate Amino Transf (AST/SGOT) 17 5-34 U/L Alanine Aminotransferase (ALT/SGPT) 10 0-55 U/L Alkaline Phosphatase 79 40-136 U/L Total Protein 7.2 6.4-8.2 GM/DL Albumin 4.1 3.2-4.5 GM/DL Amylase Level 37 25-125 U/L Lipase 20 8-78 U/L Urine Color YELLOW Urine Clarity SL CLOUDY Urine pH 6 5-9 Urine Specific [place] 1.015 L 1.016-1.022 Urine Protein 2+ H NEGATIVE Urine Glucose (UA) NEGATIVE NEGATIVE Urine Ketones NEGATIVE NEGATIVE Urine Nitrite NEGATIVE NEGATIVE Urine Bilirubin NEGATIVE NEGATIVE Urine Urobilinogen NORMAL NORMAL MG/DL Urine Leukocyte Esterase 2+ H NEGATIVE Urine RBC (Auto) 2+ H NEGATIVE Urine RBC 5-10 H /HPF Urine WBC 25-50 H /HPF Urine Squamous Epithelial Cells 0-2 /HPF Urine Crystals NONE /LPF Urine Bacteria TRACE /HPF Urine Casts NONE /LPF Urine Mucus SMALL H /LPF Urine Culture Indicated YES My Orders Orders - EVELIA DAILEY DO Ed Iv/Invasive Line Start (09/22/18 02:50) Ct Abd/Pelvis Wo(Kidney Stone) (09/22/18 02:50) Abdomen, Flat & Upright/Decub (09/22/18 02:50) Amylase (09/22/18 02:50) Cbc With Automated Diff (09/22/18 02:50) Comprehensive Metabolic Panel (09/22/18 02:50) Lipase (09/22/18 02:50) Protime With Inr (09/22/18 02:50) Partial Thromboplastin Time (09/22/18 02:50) Ua Culture If Indicated (09/22/18 02:50) Ketorolac Injection (Toradol Injection) (09/22/18 02:50) Ondansetron Injection (Zofran Injectio (09/22/18 03:00) Lactated Ringers (Lr 1000 Ml Iv Solution (09/22/18 03:00) Urine Culture (09/22/18 03:30) Phenazopyridine Tablet (Pyridium Tablet) (09/22/18 05:00) Rx-Hydrocodone/Apap 5-325 Mg (Rx-Vicodin (09/22/18 05:00) Medications Given in ED Current Medications Medications Dose Ordered Sig/Mickie Route Start Time Stop Time Status Last Admin Dose Admin Lactated Ringer's 1,000 ml @ 0 mls/hr Q0M ONCE IV 09/22/18 03:00 09/22/18 03:01 UNV 09/22/18 03:04 1,000 MLS/HR Ondansetron HCl 4 mg ONCE ONCE IVP 09/22/18 03:00 09/22/18 03:01 UNV 09/22/18 03:05 4 MG Vital Signs/I&O 09/22/18 02:47 Temp 97.2 Pulse 68 Resp 20 B/P (MAP) 134/98 (110) Pulse Ox 99 O2 Delivery Room Air Progress Progress Note : Progress Note SIGNIFICANT IMPROVEMENT IN PAIN WITH TORADOL, AND NAUSEA RESOLVED WITH ZOFRAN Departure Impression Primary Impression: Urinary tract infection Additional Impression: RLQ AND RIGHT FLANK PAIN Disposition: 01 HOME, SELF-CARE Condition: Improved Departure-Patient Inst. Referrals: EZEKIEL LERMA MD (PCP/Family) Primary Care Physician Patient Instructions: Urinary Tract Infection, Adult (DC) Add. Discharge Instructions: LOTS OF CLEAR LIQUIDS CONTINUE MACROBID PRESCRIBED FOLLOW UP WITH [facility] IN 2-3 DAYS FOR FURTHER CARE RETURN TO ER IF WORSE Scripts Hydrocodone Bit/Acetaminophen (Hydrocodone/Acetaminophen 5/325mg Tablet) 1 Tab Tab 1-2 EACH PO Q6H PRN for PAIN-MODERATE MDD 10 for 3 Days, #15 TAB Prov: EVELIA DAILEY DO 09/22/18 Phenazopyridine HCl (Pyridium) 200 Mg Tablet 1 TAB PO TID for BLADDER DISCOMFORT, #15 TAB Prov: EVELIA DAILEY DO 09/22/18 EVELIA DAILEY DO Sep 22, 2018 02:52
--- OUTSIDE RECORDS SUMMARY | 2018-09-22 02:52 | XMS REPORT ---
Author Author JULY PARKS [facility] Address [address] [place] [address] Care Team Providers Care Physician Office Specialist Name Role Phone JULY PARKS Unavailable PROBLEMS Type Condition ICD9-CM Code SRQ90-NZ Code Onset Dates Condition Status SNOMED Code Problem Chronic gastritis without bleeding, unspecified gastritis type K29.50 Active 8898452 Problem Vitamin D deficiency E55.9 Active 16258723 Problem Osteoporosis M81.0 Active 75656041 Problem Unspecified abdominal pain R10.9 Active 059277346 Problem Fibromyalgia M79.7 Active 49367281 Problem Chronic pain syndrome G89.4 Active 023468105 Problem Trigger point with back pain M54.9 Active 207062159 Problem Chronic tension-type headache, not intractable G44.229 Active 508056085 Problem RUQ abdominal pain R10.11 Active 453388257 Problem Pancytopenia D61.818 Active 324457965 Problem Right sided sciatica M54.31 Active 19851579 Problem Chronic prescription opiate use Z79.891 Active 734239812 Problem Drug induced constipation K59.03 Active 554613853922595 Problem Leukopenia, unspecified type D72.819 Active 45090934 Problem Atrial fibrillation, unspecified type I48.91 Active 99023573 Problem Allergic rhinitis, unspecified allergic rhinitis type J30.9 Active 12661091 Problem Chronic obstructive pulmonary disease, unspecified COPD type J44.9 Active 45931048 Problem Hypothyroidism, unspecified hypothyroidism type E03.9 Active 22052235 Problem Other constipation K59.09 Active 597806239 Problem Porokeratosis Q82.8 Active 479834946 Problem 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 Active 682849813 Problem Allergy to intravenous contrast Z91.041 Active 468121754 Problem Vaginal atrophy N95.2 Active 108358700 Problem Major depression, recurrent F33.9 Active 07361341 Problem History of hepatitis C Z86.19 Active 02206326269126 Problem Hot flashes N95.1 Active 810543044 Problem Plantar fasciitis M72.2 Active 592819979 Problem Polyneuropathy associated with underlying disease G63 Active 664720006 Problem Primary insomnia F51.01 Active 7764003 Problem Low back pain M54.5 Active 066274797 ALLERGIES Substance Reaction Event Type Date Status Diazepam Unknown Drug Allergy August, Active CT Dye Unknown Non Drug Allergy August, Active ENCOUNTERS Encounter Location Date Diagnosis [place] [address] [address] Jan, [place] [address] [address] Nov, Onychocryptosis L60.0 [place] [address] [address] Nov, Chronic pain syndrome G89.4 [place] [address] [address] Nov, Trochanteric bursitis of both hips M70.61 [place] [address] [place] [id number] [place] [address] Oct, Hypothyroidism, unspecified hypothyroidism type E03.9 and Atrial fibrillation, unspecified type I48.91 [place] [address] [place] [id number] [place] [address] Oct, Fibromyalgia M79.7 ; Chronic pain syndrome G89.4 ; Hypothyroidism, unspecified hypothyroidism type E03.9 ; Overweight (BMI 25.0-29.9) E66.3 and Atrial fibrillation, unspecified type I48.91 [place] [address] [place] [id number] [place] [address] Oct, Chronic pain syndrome G89.4 [place] [address] [address] Sep, Chronic pain syndrome G89.4 [place] [address] [place] [id number] [place] [address] August, Somatic dysfunction of lumbar region M99.03 and Somatic dysfunction of pelvis region M99.05 [place] [address] [place] [address] August, Chronic pain syndrome G89.4 [place] [address] [place] [id number] [place] [address] Jul, Trochanteric bursitis of left hip M70.62 and Trochanteric bursitis, right hip M70.61 [place] [address] [place] [id number] [place] [address] Jul, [place] [address] [place] [id number] [place] [address] Jul, Chronic pain syndrome G89.4 [place] [address] [place] [id number] [place] [address] Jul, Hypothyroidism, unspecified hypothyroidism type E03.9 [place] [address] [place] [id number] [place] [address] Jul, Hypothyroidism, unspecified hypothyroidism type E03.9 [place] [address] [place] [id number] [place] [address] Jul, Chronic tension-type headache, not intractable G44.229 ; Atrial fibrillation, unspecified type I48.91 ; Chronic pain syndrome G89.4 ; Hypothyroidism, unspecified hypothyroidism type E03.9 ; Pancytopenia D61.818 ; History of hepatitis C Z86.19 ; Vaginal atrophy N95.2 ; RUQ abdominal pain R10.11 ; Chronic prescription opiate use Z79.891 ; Osteoporosis M81.0 and Screening for breast cancer Z12.31 [place] [address] [place] [id number] [place] [address] Jun, [place] [address] [place] [id number] [place] [address] May, [place] [address] [place] [id number] [place] [address] May, [place] [address] [address] May, [facility] [address] [place] [id number] [place] [address] Apr, [facility] [address] [place] [id number] [place] [address] Apr, Hypothyroidism, unspecified hypothyroidism type E03.9 [place] [address] [place] [id number] [place] [address] Apr, Hypothyroidism, unspecified hypothyroidism type E03.9 and Leukopenia, unspecified type D72.819 [place] [address] [place] [id number] [place] [address] Mar, [place] [address] [place] [id number] [place] [address] Mar, Leukopenia, unspecified type D72.819 [place] [address] [place] [id number] [place] [address] Mar, Hypothyroidism, unspecified hypothyroidism type E03.9 and Low hemoglobin D64.9 [place] [address] [place] [id number] [place] [address] Mar, Hypothyroidism, unspecified hypothyroidism type E03.9 [place] [address] [place] [address] Mar, Osteoporosis M81.0 ; Low hemoglobin D64.9 and Hypothyroidism, unspecified hypothyroidism type E03.9 [place] [address] [place] [address] Mar, Hypothyroidism, unspecified hypothyroidism type E03.9 ; Bilirubin in urine R82.2 and Pancytopenia D61.818 [place] [address] [place] [address] Feb, [facility] [address] [place] [id number] [place] [address] Feb, Cough R05 and Bronchitis J40 [facility] [address] [place] [id number] [place] [address] 14 Feb, 2017 Other viral agents as the cause of diseases classified elsewhere B97.89 and Acute upper respiratory infection, unspecified J06.9 [facility] [address] [place] [id number] [place] [address] Feb, Fibromyalgia M79.7 ; Chronic pain syndrome G89.4 ; Hypothyroidism, unspecified hypothyroidism type E03.9 ; Primary insomnia F51.01 ; Osteoporosis M81.0 ; Vision abnormalities H53.9 ; Pancytopenia D61.818 ; BMI 28.0-28.9,adult Z68.28 and Encounter for immunization Z23 [place] [address] [address] Feb, Neuroma D36.10 and Capsulitis of right foot M77.51 [place] [address] [address] Feb, [place] [address] [address] Feb, Hypothyroidism, unspecified hypothyroidism type E03.9 [place] [address] [place] [id number] [place] [address] Jan, [place] [address] [place] [id number] [place] [address] Jan, Atrial fibrillation, unspecified type I48.91 [place] [address] [place] [id number] [place] [address] Jan, [place] [address] [address] Jan, Fibromyalgia M79.7 ; Atrial fibrillation, unspecified type I48.91 ; Pain of left hand M79.642 ; Pain in right hand M79.641 ; Chronic prescription opiate use Z79.891 ; Chronic pain syndrome G89.4 ; Elevated fasting glucose R73.01 and Hypothyroidism, unspecified hypothyroidism type E03.9 [facility] [address] [place] [address] Jan, [facility] [address] [place] [id number] [place] [address] Dec, Trochanteric bursitis of both hips M70.61 [facility] [address] [place] [id number] [place] [address] Dec, [facility] [address] [place] [id number] [place] [address] Dec, [facility] [address] [place] [id number] [place] [address] Nov, [facility] [address] [place] [id number] [place] [address] Nov, Unilateral headache R51 [facility] [address] [place] [id number] [place] [address] Nov, [facility] [address] [place] [id number] [place] [address] Oct, Unilateral headache R51 ; 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 and Allergy to intravenous contrast Z91.041 [facility] [address] [place] [id number] [place] [address] Oct, [facility] [address] [place] [address] Oct, [facility] [address] [place] [address] Sep, Hypothyroidism, unspecified hypothyroidism type E03.9 [facility] [address] [place] [id number] [place] [address] Sep, Hypothyroidism, unspecified hypothyroidism type E03.9 and Bilirubin in urine R82.2 [facility] [address] [address] Sep, Trochanteric bursitis of both hips M70.61 [facility] [address] [place] [id number] [place] [address] Sep, Hypothyroidism, unspecified hypothyroidism type E03.9 ; Dysuria R30.0 ; Chronic tension-type headache, not intractable G44.229 and Drug induced constipation K59.03 [facility] [address] [address] Sep, [facility] [address] [address] Sep, [facility] [address] [address] August, [place] [address] [address] Jul, [place] [address] [address] Jul, Trochanteric bursitis of right hip M70.61 [facility] [address] [address] Jul, Hypothyroidism, unspecified hypothyroidism type E03.9 [place] [address] [address] Jul, Fibromyalgia M79.7 ; Chronic pain syndrome G89.4 ; Hypothyroidism, unspecified hypothyroidism type E03.9 and Other constipation K59.09 [facility] [address] [place] [id number] [place] [address] Jun, Swollen tonsil J35.1 and Strep throat J02.0 [facility] [address] [address] Jun, [facility] [address] [address] Jun, Acute maxillary sinusitis J01.00 [place] [address] [address] Jun, Hypothyroidism, unspecified hypothyroidism type E03.9 [facility] [address] [place] [id number] [place] [address] Jun, Chronic pain syndrome G89.4 ; Fibromyalgia M79.7 ; Hypothyroidism, unspecified hypothyroidism type E03.9 and Chronic prescription opiate use Z79.891 [facility] [address] [place] [id number] [place] [address] May, [facility] [address] [place] [id number] [place] [address] Apr, Hypothyroidism, unspecified hypothyroidism type E03.9 [place] [address] [place] [id number] [place] [address] Apr, [facility] [address] [place] [id number] [place] [address] Apr, Lipid screening Z13.220 and Hypothyroidism, unspecified hypothyroidism type E03.9 [place] [address] [place] [id number] [place] [address] Apr, [facility] [address] [place] [id number] [place] [address] Mar, Trochanteric bursitis of both hips M70.61 [place] [address] [place] [id number] [place] [address] Mar, [facility] [address] [place] [id number] [place] [address] Mar, Plantar fasciitis M72.2 and Porokeratosis Q82.8 [facility] [address] [place] [id number] [place] [address] Feb, Lipid screening Z13.220 ; Vitamin D deficiency E55.9 and Hypothyroidism, unspecified hypothyroidism type E03.9 [facility] [address] [place] [address] 16 Feb, 2016 Chronic pain syndrome G89.4 [...] immunization Z23 [facility] [address] [address] Feb, [facility] [address] [address] Feb, Ingrown toenail L60.0 [place] [address] [address] Jan, [place] [address] [address] Jan, Trochanteric bursitis of both hips M70.61 [place] [address] [address] Jan, [facility] [address] [address] Jan, [place] [address] [address] Jan, [place] [address] [place] [id number] [place] [address] Jan, Right sided sciatica M54.31 [facility] [address] [place] [id number] [place] [address] Dec, Onychomycosis B35.1 [place] [address] [address] Dec, [facility] [address] [address] Dec, [facility] [address] [address] Dec, [facility] [address] [place] [address] Dec, Osteoarthritis of right hip, unspecified osteoarthritis type M16.11 and Bursitis of right hip M70.71 [facility] [address] [place] [id number] [place] [address] Nov, [facility] [address] [place] [id number] [place] [address] Nov, [facility] [address] [place] [id number] [place] [address] Nov, [place] [address] [place] [id number] [place] [address] Nov, Hypothyroidism, unspecified hypothyroidism type E03.9 ; Vitamin D deficiency E55.9 and History of hepatitis C Z86.19 [place] [address] [place] [id number] [place] [address] Nov, Right upper quadrant pain R10.11 ; History of hepatitis C Z86.19 and Low back pain M54.5 [place] [address] [place] [id number] [place] [address] Oct, Trochanteric bursitis, right hip M70.61 [place] [address] [place] [id number] [place] [address] Oct, [facility] [address] [place] [id number] [place] [address] Oct, [facility] [address] [place] [id number] [place] [address] Oct, Trochanteric bursitis of both hips M70.61 and Right sided sciatica M54.31 [facility] [address] [place] [id number] [place] [address] Oct, Trochanteric bursitis of both hips M70.61 [facility] [address] [place] [id number] [place] [address] Oct, RUQ abdominal pain R10.11 [facility] [address] [place] [id number] [place] [address] 13 Oct, 2015 Sciatic leg pain M54.30 [facility] [address] [place] [id number] [place] [address] Oct, RUQ abdominal pain R10.11 [place] [address] [address] 07 Oct, 2015 RUQ abdominal pain R10.11 ; History of hepatitis C Z86.19 and Trigger point with back pain M54.9 [place] [address] [address] Sep, [place] [address] [place] [id number] [place] [address] Sep, Right sided sciatica M54.31 [place] [address] [place] [id number] [place] [address] Sep, Hypothyroidism, unspecified hypothyroidism type E03.9 and Vitamin D deficiency E55.9 [place] [address] [place] [id number] [place] [address] Sep, Plantar fasciitis M72.2 and Porokeratosis Q82.8 [place] [address] [place] [id number] [place] [address] Sep, Hypothyroidism, unspecified hypothyroidism type E03.9 ; Chronic pain syndrome G89.4 ; Vitamin D deficiency E55.9 and Polyneuropathy associated with underlying disease G63 [place] [address] [place] [id number] [place] [address] August, [place] [address] [address] Jul, Plantar fasciitis M72.2 [facility] [address] [place] [id number] [place] [address] Jul, Trochanteric bursitis, right hip M70.61 [place] [address] [place] [id number] [place] [address] Jul, Hypothyroidism, unspecified hypothyroidism type E03.9 [place] [address] [place] [id number] [place] [address] 06 Jul, 2015 Hypothyroidism, unspecified hypothyroidism type E03.9 ; Chronic pain syndrome G89.4 and Polyneuropathy associated with underlying disease G63 [place] [address] [address] Jun, Trochanteric bursitis of both hips M70.61 [place] [address] [address] 08 Jun, 2015 Vitamin D deficiency E55.9 ; Osteoporosis M81.0 ; Low back pain M54.5 and Plantar fasciitis M72.2 [place] [address] [address] May, Vitamin D deficiency E55.9 and Hypothyroidism, unspecified hypothyroidism type E03.9 [place] [address] [place] [id number] [place] [address] May, Acute maxillary sinusitis J01.00 [place] [address] [place] [id number] [place] [address] 18 May, 2015 Osteoporosis M81.0 and Hypothyroidism, unspecified hypothyroidism type E03.9 [place] [address] [place] [id number] [place] [address] 16 May, 2015 Osteoporosis M81.0 [place] [address] [place] [id number] [place] [address] May, [place] [address] [address] Apr, [place] [address] [place] [id number] [place] [address] Apr, Trochanteric bursitis of both hips M70.61 [place] [address] [place] [id number] [place] [address] Apr, Hypothyroidism, unspecified hypothyroidism type E03.9 [place] [address] [place] [id number] [place] [address] Apr, Chronic pain syndrome G89.4 ; Bilateral low back pain with sciatica, sciatica laterality unspecified M54.40 ; Pain in right hip M25.551 ; Pain in left hip M25.552 ; Chronic prescription opiate use Z79.899 ; Primary insomnia F51.01 and Hypothyroidism, unspecified hypothyroidism type E03.9 [place] [address] [place] [id number] [place] [address] Mar, [place] [address] [address] Feb, [place] [address] [address] 16 Feb, 2015 Chronic pain syndrome G89.4 and Major depression F32.9 [place] [address] [place] [id number] [place] [address] Feb, Fatigue R53.83 [place] [address] [place] [id number] [place] [address] 13 Feb, 2015 History of fracture Z87.81 [place] [address] [place] [id number] [place] [address] Feb, Major depression, recurrent F33.9 and Generalized anxiety disorder F41.1 [place] [id number] [place] [address] Feb, [facility] [address] [address] Jan, Hypothyroidism, unspecified hypothyroidism type E03.9 [facility] [address] [place] [id number] [place] [address] Jan, Abdominal pain R10.9 and Hypothyroidism, unspecified hypothyroidism type E03.9 [place] [address] [address] Jan, Abdominal pain R10.9 [place] [id number] [place] [address] Jan, Hypothyroidism, unspecified hypothyroidism type E03.9 [place] [id number] [place] [address] Jan, [place] [id number] [place] [address] Jan, 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 and Hypothyroidism, unspecified hypothyroidism type E03.9 [place] [address] [id number] [place] [address] Jan, 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 ; Abdominal pain R10.9 ; Dyspareunia N94.1 ; Encounter for immunization Z23 ; History of fracture Z87.81 ; Fatigue R53.83 ; Throat fullness R68.89 ; Bruises easily R23.8 ; Hot flashes N95.1 ; Depression F32.9 and Vaginal atrophy N95.2 [place] [address] [place] [address] Jan, Hypothyroidism, unspecified hypothyroidism type E03.9 [place] [id number] [place] [address] 14 Jan, 2015 Unspecified abdominal pain R10.9 ; Chronic obstructive pulmonary disease, unspecified COPD type J44.9 ; Allergic rhinitis, unspecified allergic rhinitis type J30.9 ; Chronic pain syndrome G89.4 ; Hypothyroidism, unspecified hypothyroidism type E03.9 ; Chest pain, unspecified chest pain type R07.9 and Plantar fasciitis M72.2 [place] [address] [place] [address] 08 Jan, 2015 Trochanteric bursitis of both hips M70.61 [facility] [address] [address] Dec, [facility] [id number] [place] [address] Nov, [facility] [id number] [place] [address] Nov, [facility] [id number] [place] [address] Nov, Constipation 564.00 [facility] [id number] [place] [id number] Oct, Chronic pain 338.29 and Hypothyroidism 244.9 [facility] [id number] [place] [phone] Oct, [facility] [id number] [place] [phone] Sep, [facility] [id number] [place] [phone] Sep, [facility] [id number] [place] [id number] Sep, [facility] [id number] [place] [phone] Sep, [facility] [id number] [place] [phone] Sep, [facility] [id number] [place] [phone] Sep, [facility] [id number] [place] [id number] Sep, COPD exacerbation 491.21 ; Chronic pain 338.29 ; Hypothyroidism 244.9 and Pancytopenia 284.19 [facility] [id number] [address] August, [facility] [id number] [place] [address] 14 Jul, 2014 [facility] [place] [facility] [address] [id number] [place] [address] Jul, [facility] [place] [facility] [address] [id number] [place] [address] Jun, [facility] [place] [facility] [address] [facility] [id number] [place] [address] Jun, [facility] [place] [facility] [address] [id number] [place] [address] Jun, [facility] [place] [facility] [address] [id number] [place] [address] Jun, [facility] [place] [facility] [address] [facility] [id number] [place] [address] Jun, [facility] [facility] [address] [id number] [place] [address] May, [facility] [place] [facility] [address] [id number] [place] [address] May, [facility] [place] [facility] [address] [id number] [place] [address] May, [facility] [place] [facility] [address] [id number] [place] [address] May, [facility] [place] [facility] [address] [id number] [place] [address] May, [facility] [place] [facility] [address] [id number] [place] [address] May, [facility] [place] [facility] [address] [id number] [place] [address] May, [facility] [place] [facility] [address] [id number] [place] [address] May, 2014 [facility] [place] [facility] [address] [id number] [address] May, [facility] [place] [facility] [address] [id number] [place] [address] May, [facility] [place] [facility] [address] [id number] [place] [address] May, [facility] [place] [facility] [address] [id number] [place] [address] May, [facility] [place] [facility] [address] [id number] [place] [address] May, [facility] [place] [facility] [address] [id number] [place] [address] Apr, [facility] [place] [facility] [address] [id number] [place] [address] Apr, [facility] [place] [facility] [address] [id number] [place] [address] Apr, [facility] [place] [facility] [address] [id number] [place] [address] Apr, [facility] [place] [facility] [address] [id number] [place] [address] Apr, [facility] [place] [facility] [address] [id number] [place] [address] Apr, [facility] [place] [facility] [address] [id number] [place] [address] Apr, [facility] [place] [facility] [address] [id number] [place] [address] Mar, [facility] [place] [facility] [address] [id number] [place] [address] Mar, [facility] [place] [facility] [address] [id number] [place] [address] Mar, [facility] [place] [facility] [address] [id number] [place] [address] Mar, [facility] [place] [facility] [address] [id number] [place] [address] Mar, [facility] [place] [facility] [address] [id number] [place] [address] Mar, [facility] [place] [facility] [address] [id number] [place] [address] Feb, [facility] [place] [facility] [address] [id number] [place] [address] Feb, [facility] [place] [address] [id number] [place] [address] Feb, [facility] [address] [id number] [place] [address] Feb, [facility] [place] [facility] [address] [id number] [place] [address] Feb, [facility] [place] [facility] [address] [id number] [place] [address] Feb, [facility] [place] [facility] [address] [id number] [place] [address] Jan, [facility] [place] [facility] [address] [id number] [place] [address] Jan, [facility] [place] [facility] [address] [id number] [place] [address] Jan, [facility] [address] [id number] [place] [address] Jan, [facility] [place] [facility] [address] [id number] [place] [address] Jan, [facility] [place] [facility] [address] [id number] [place] [address] Jan, [facility] [place] [address] [id number] [place] [address] Jan, [facility] [place] [address] [id number] [place] [address] Jan, [facility] [facility] [address] [id number] [place] [address] Dec, [facility] [address] [id number] [place] [address] Dec, [facility] [address] [id number] [place] [address] Dec, [facility] [address] [id number] [place] [address] Dec, [facility] [address] [id number] [place] [address] Dec, [facility] [address] [id number] [place] [address] Dec, [facility] [address] [id number] [place] [address] Dec, [facility] [address] [id number] [place] [address] Nov, [facility] [address] [id number] [place] [address] Nov, [facility] [address] [id number] [place] [address] Oct, [facility] [address] [id number] [address] Oct, [facility] [address] [id number] [place] [address] Oct, [facility] [address] [id number] [place] [address] Oct, [facility] [address] [id number] [place] [address] Sep, [facility] [address] [id number] [address] Sep, [facility] [address] [id number] [address] Sep, [facility] [address] [id number] [place] [address] Sep, [facility] [address] [id number] [place] [address] Sep, [facility] [address] [id number] [place] [address] Sep, [facility] [address] [id number] [place] [address] Sep, [facility] [address] [id number] [place] [address] Sep, [facility] [address] [id number] [place] [address] August, [facility] [address] [id number] [place] [address] August, [facility] [address] [id number] [place] [address] August, [facility] [address] [id number] [place] [address] August, [facility] [address] [id number] [place] [address] Jul, [facility] [address] [id number] [place] [address] Jul, [facility] [address] [id number] [place] [address] Jul, [facility] [address] [id number] [place] [address] Jul, [facility] [address] [id number] [place] [address] 17 Jul, 2013 [facility] [address] [id number] [place] [address] 16 Jul, 2013 [facility] [address] [id number] [place] [address] 15 Jul, 2013 [facility] [address] [id number] [place] [address] 15 Jul, 2013 [facility] [address] [id number] [place] [address] 18 Jun, 2013 [facility] [address] [id number] [place] [address] Jun, [facility] [address] [id number] [place] [address] Jun, [facility] [address] [id number] [place] [address] Jun, [facility] [address] [id number] [place] [address] Jun, [facility] [address] [id number] [place] [address] Jun, [facility] [address] [id number] [place] [address] Jun, [facility] [address] [id number] [place] [address] Jun, [facility] [address] [id number] [place] [address] May, [facility] [address] [id number] [place] [address] May, [facility] [address] [id number] [place] [address] Apr, [facility] [address] [id number] [place] [address] Apr, [facility] [address] [id number] [place] [address] Mar, [facility] [address] [id number] [place] [address] 24 Mar, 2013 [facility] [address] [id number] [place] [address] 19 Mar, 2013 [facility] [address] [id number] [place] [address] 18 Mar, 2013 [facility] [address] [id number] [place] [address] Mar, [facility] [address] [id number] [place] [address] Mar, [facility] [address] [id number] [place] [address] Mar, [facility] [address] [id number] [place] [address] Feb, [facility] [address] [id number] [place] [address] Feb, [facility] [address] [id number] [place] [address] Feb, [facility] [address] [id number] [place] [address] Feb, [facility] [address] [id number] [place] [address] 05 Feb, 2013 [facility] [address] [id number] [address] 04 Feb, 2013 [facility] [address] [id number] [place] [address] 26 Sep2012 [facility] [address] [id number] [place] [address] 18 Sep2012 [facility] [address] [id number] [place] [address] 13 Dec, 2012 [facility] [address] [id number] [place] [address] 13 Dec, 2012 [facility] [address] [id number] [place] [address] Dec, [facility] [address] [id number] [place] [address] Nov, [facility] [address] [id number] [place] [address] Nov, [facility] [address] [id number] [place] [address] Oct, [facility] [address] [id number] [place] [address] August, [facility] [address] [id number] [place] [address] August, [facility] [address] [id number] [place] [address] August, [facility] [address] [id number] [place] [address] Jul, [facility] [address] [id number] [place] [address] Jul, [facility] [address] [id number] [place] [address] Jul, [facility] [address] [id number] [place] [address] Jun, [facility] [address] [id number] [place] [address] Jun, [facility] [address] [id number] [place] [address] 21 Jun, 2012 [facility] [address] [id number] [place] [address] 20 Jun, 2012 [facility] [address] [id number] [place] [address] 18 Jun, 2012 [facility] [address] [id number] [place] [address] 15 Jun, 2012 [facility] [address] [id number] [place] [address] 12 Jun, 2012 [facility] [address] [id number] [place] [address] 18 May, 2012 [facility] [address] [id number] [place] [address] 11 May, 2012 [facility] [address] [id number] [place] [address] 06 May, 2012 [facility] [address] [id number] [place] [address] 05 May, 2012 [facility] [address] [id number] [place] [address] Apr, [facility] [address] [id number] [place] [address] Apr, [facility] [address] [id number] [place] [address] Apr, [facility] [address] [id number] [place] [address] Mar, [facility] [address] [id number] [place] [address] Mar, [facility] [address] [id number] [place] [address] Mar, [facility] [address] [id number] [address] Mar, [facility] [address] [id number] [place] [address] Mar, [facility] [place] [address] [id number] [place] [address] Mar, [facility] [address] [id number] [place] [address] Mar, [facility] [place] [facility] [address] [id number] [place] [address] Mar, [facility] [place] [facility] [address] [id number] [place] [address] Feb, [facility] [place] [facility] [address] [id number] [place] [address] Feb, [facility] [place] [facility] [address] [id number] [place] [address] Feb, [facility] [place] [facility] [address] [id number] [place] [address] Jan, [facility] [place] [facility] [address] [id number] [place] [address] Jan, [facility] [place] [facility] [address] [id number] [place] [address] Jan, [facility] [place] [facility] [address] [id number] [place] [address] Jan, [facility] [place] [facility] [address] [id number] [place] [address] Jan, [facility] [place] [facility] [address] [id number] [place] [address] Jan, [facility] [place] [facility] [address] [id number] [place] [address] Jan, [facility] [place] [facility] [address] [id number] [place] [address] 27 Dec, 2011 [facility] [place] [facility] [address] [id number] [place] [address] 24 Dec, 2011 [facility] [place] [facility] [address] [id number] [place] [address] 10 Dec, 2011 [facility] [place] [facility] [address] [id number] [place] [address] 30 Nov, 2011 [facility] [place] [facility] [address] [id number] [place] [address] Nov, [facility] [place] [facility] [address] [id number] [place] [address] Nov, [facility] [place] [facility] [address] [id number] [place] [address] Nov, [facility] [place] [facility] [address] [id number] [place] [address] Oct, [facility] [place] [facility] [address] [id number] [place] [address] Oct, [facility] [place] [facility] [address] [id number] [place] [address] Oct, [facility] [place] [facility] [address] [id number] [place] [address] Sep, [facility] [place] [facility] [address] [id number] [place] [address] Sep, [facility] [place] [facility] [address] [id number] [place] [address] Sep, [facility] [place] [facility] [address] [id number] [place] [address] Sep, [facility] [place] [facility] [address] [id number] [place] [address] Sep, [facility] [place] [facility] [address] [id number] [place] [address] Sep, [facility] [place] [facility] [address] [id number] [place] [address] August, [facility] [place] [facility] [address] [id number] [place] [address] Jul, [facility] [place] [facility] [address] [id number] [place] [address] Jul, [facility] [place] [facility] [address] [id number] [place] [address] Jul, [facility] [place] [facility] [address] [id number] [place] [address] 05 Jul, 2011 [facility] [address] [id number] [place] [address] Jul, [facility] [place] [facility] [address] [id number] [place] [address] 29 Jun, 2011 [facility] [place] [facility] [address] [id number] [place] [address] Jun, [facility] [place] [facility] [address] [id number] [place] [address] Jun, [facility] [address] [id number] [place] [address] Jun, [facility] [address] [id number] [place] [address] Jun, [facility] [address] [id number] [place] [address] May, [facility] [place] [facility] [address] [id number] [place] [address] May, [facility] [address] [id number] [place] [address] May, [facility] [place] [facility] [address] [id number] [place] [address] May, [facility] [address] [id number] [place] [address] May, [facility] [place] [facility] [address] [id number] [address] May, [facility] [place] [facility] [address] [id number] [place] [address] May, [facility] [place] [facility] [address] [id number] [place] [address] Apr, [facility] [place] [facility] [address] [id number] [place] [address] Mar, [facility] [place] [facility] [address] [id number] [place] [address] 13 Mar, 2011 [facility] [place] [facility] [address] [id number] [place] [address] 10 Mar, 2011 [facility] [place] [facility] [address] [id number] [place] [address] 10 Mar, 2011 [facility] [place] [facility] [address] [id number] [place] [address] 08 Mar, 2011 [facility] [place] [facility] [address] [id number] [place] [address] 23 Feb, 2011 [facility] [place] [facility] [address] [id number] [place] [address] 14 Feb, 2011 [facility] [place] [facility] [address] [id number] [place] [address] 14 Feb, 2011 [facility] [place] [facility] [address] [id number] [place] [address] 14 Feb, 2011 [facility] [place] [facility] [address] [id number] [place] [address] Feb, [facility] [place] [facility] [address] [id number] [place] [address] Feb, [facility] [place] [facility] [address] [id number] [place] [address] Feb, [facility] [place] [facility] [address] [id number] [place] [address] Jan, [facility] [place] [facility] [address] [id number] [place] [address] 12 Dec, 2010 [facility] [place] [facility] [address] [id number] [place] [address] 11 Oct, 2010 [facility] [place] [facility] [address] [id number] [place] [address] Jun, [facility] [place] [facility] [address] [id number] [place] [address] 23 Mar, 2010 [facility] [address] [id number] [place] [address] 23 Mar, 2010 [facility] [place] [facility] [address] [id number] [place] [address] 16 Mar, 2010 [facility] [address] [id number] [place] [address] 16 Mar, 2010 [facility] [place] [facility] [address] [id number] [place] [address] 15 Mar, 2010 [facility] [address] [id number] [place] [address] 10 Mar, 2010 [facility] [place] [facility] [address] [id number] [place] [address] 10 Mar, 2010 [facility] [address] [id number] [place] [address] 05 Mar, 2010 [facility] [place] [facility] [address] [id number] [address] 03 Mar, 2010 [facility] [place] [facility] [address] [id number] [place] [address] 02 Mar, 2010 [facility] [place] [facility] [address] [id number] [place] [address] Jan, [facility] [place] [facility] [address] [id number] [place] [address] Jan, [facility] [place] [facility] [address] [id number] [place] [address] Jan, [facility] [place] [facility] [address] [id number] [place] [address] Nov, [facility] [place] [facility] [address] [id number] [address] Oct, [facility] [place] [facility] [address] [id number] [place] [address] 31 Mar, 2009 [facility] [place] [facility] [address] [id number] [address] Mar, [facility] [id number] [address] Mar, [facility] [id number] [address] Mar, [facility] [id number] [address] Dec, [facility] [id number] [address] August, [facility] [id number] [address] August, [facility] [id number] [address] Jul, [facility] [id number] [address] Jan, [facility] [address] [id number] [address] Jan, IMMUNIZATIONS No Known Immunizations SOCIAL HISTORY Never Assessed REASON FOR VISIT OMM PLAN OF CARE Activity Details Follow Up 4 Weeks or prn Reason:OMM Future/Pending Procedure OMT/1-2 REGIONS VITAL SIGNS MEDICATIONS Medication Instructions Dosage Frequency Start Date End Date Duration Status Alendronate Sodium 10 MG Orally Once a day 1 tablet 24h Jun, 30 day(s) Unknown Metoprolol Succinate ER 50 MG Orally Once a day 1 tablet 24h 90 days Unknown Synthroid 200 MCG Orally Once a day 1 tablet on an empty stomach in the morning 24h Jul, 30 day(s) Unknown Lyrica 75 MG Orally Twice a day 1 capsule 12h Jan, Unknown Flonase 50 MCG/ACT Nasally Once a day 1 spray in each nostril 24h Sep, Unknown Hydrocodone-Acetaminophen 10-325 MG Orally 2 times a day 1 tablet as needed 12h August, 28 days Unknown Premarin 0.625 MG/GM Vaginal Daily x 2 weeks then decrease to 2 days per week 0.5 gram Feb, Unknown Eliquis 5 mg TAKE ONE TABLET BY MOUTH TWICE DAILY 07 days Unknown RESULTS No Results PROCEDURES Procedure Date Ordered Result Body Site OSTEOPATHIC MANIPULATION September 15, 2017 INSTRUCTIONS MEDICATIONS ADMINISTERED No Known Medications [...]
--- OUTSIDE RECORDS SUMMARY | 2018-09-22 02:53 | XMS REPORT ---
Author Author FLORENTINEZEKIEL PUCKETT Organization [facility] Address [address] [place] [address] Care Team Providers Care Fish Inspector Name Role Phone DANICA LERMAY Unavailable PROBLEMS Type Condition ICD9-CM Code [id number] Code Onset Dates Condition Status SNOMED Code Problem Chronic gastritis without bleeding, unspecified gastritis type K29.50 Active 6470336 Problem Vitamin D deficiency E55.9 Active 24354608 Problem Osteoporosis M81.0 Active 76224284 Problem Unspecified abdominal pain R10.9 Active 612640418 Problem Fibromyalgia M79.7 Active 20133881 Problem Chronic pain syndrome G89.4 Active 073265258 Problem Trigger point with back pain M54.9 Active 016520676 Problem Chronic tension-type headache, not intractable G44.229 Active 645386282 Problem RUQ abdominal pain R10.11 Active 237367777 Problem Pancytopenia D61.818 Active 207889918 Problem Right sided sciatica M54.31 Active 11987247 Problem Chronic prescription opiate use Z79.891 Active 989747974 Problem Drug induced constipation K59.03 Active 728055709244134 Problem Leukopenia, unspecified type D72.819 Active 64454856 Problem Atrial fibrillation, unspecified type I48.91 Active 36478785 Problem Allergic rhinitis, unspecified allergic rhinitis type J30.9 Active 54003083 Problem Chronic obstructive pulmonary disease, unspecified COPD type J44.9 Active 24576605 Problem Hypothyroidism, unspecified hypothyroidism type E03.9 Active 47079676 Problem Other constipation K59.09 Active 879892302 Problem Porokeratosis Q82.8 Active 317267337 Problem 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 Active 347221231 Problem Allergy to intravenous contrast Z91.041 Active 116052382 Problem Vaginal atrophy N95.2 Active 074712764 Problem Major depression, recurrent F33.9 Active 15339880 Problem History of hepatitis C Z86.19 Active 50703544091411 Problem Hot flashes N95.1 Active 719819104 Problem Plantar fasciitis M72.2 Active 098120258 Problem Polyneuropathy associated with underlying disease G63 Active 050071091 Problem Primary insomnia F51.01 Active 4315497 Problem Low back pain M54.5 Active 482635186 ALLERGIES No Information ENCOUNTERS Encounter Location Date Diagnosis [place] [id number] [place] [address] Nov, [place] [id number] [place] [address] Nov, Chronic pain syndrome G89.4 [place] [id number] [place] [address] Nov, Trochanteric bursitis of both hips M70.61 [place] [id number] [place] [address] Oct, Hypothyroidism, unspecified hypothyroidism type E03.9 and Atrial fibrillation, unspecified type I48.91 [place] [id number] [place] [address] Oct, Fibromyalgia M79.7 ; Chronic pain syndrome G89.4 ; Hypothyroidism, unspecified hypothyroidism type E03.9 ; Overweight (BMI 25.0-29.9) E66.3 and Atrial fibrillation, unspecified type I48.91 [place] [address] [place] [address] Oct, Chronic pain syndrome G89.4 [place] [id number] [place] [address] Sep, Chronic pain syndrome G89.4 [place] [id number] [place] [address] August, Somatic dysfunction of lumbar region M99.03 and Somatic dysfunction of pelvis region M99.05 [place] [id number] [place] [address] August, Chronic pain syndrome G89.4 [place] [id number] [place] [address] Jul, Trochanteric bursitis of left hip M70.62 and Trochanteric bursitis, right hip M70.61 [place] [id number] [place] [address] Jul, [place] [id number] [place] [address] Jul, Chronic pain syndrome G89.4 [place] [id number] [place] [address] Jul, Hypothyroidism, unspecified hypothyroidism type E03.9 [place] [id number] [place] [address] Jul, Hypothyroidism, unspecified hypothyroidism type E03.9 [place] [id number] [place] [address] Jul, Chronic tension-type headache, not intractable G44.229 ; Atrial fibrillation, unspecified type I48.91 ; Chronic pain syndrome G89.4 ; Hypothyroidism, unspecified hypothyroidism type E03.9 ; Pancytopenia D61.818 ; History of hepatitis C Z86.19 ; Vaginal atrophy N95.2 ; RUQ abdominal pain R10.11 ; Chronic prescription opiate use Z79.891 ; Osteoporosis M81.0 and Screening for breast cancer Z12.31 [place] [id number] [place] [address] Jun, [place] [id number] [place] [address] May, [place] [id number] [place] [address] May, [place] [id number] [place] [address] May, [place] [id number] [place] [address] Apr, [place] [id number] [place] [address] Apr, Hypothyroidism, unspecified hypothyroidism type E03.9 [place] [id number] [place] [address] Apr, Hypothyroidism, unspecified hypothyroidism type E03.9 and Leukopenia, unspecified type D72.819 [place] [id number] [place] [address] Mar, [place] [id number] [place] [address] Mar, Leukopenia, unspecified type D72.819 [place] [id number] [place] [address] Mar, Hypothyroidism, unspecified hypothyroidism type E03.9 and Low hemoglobin D64.9 [place] [id number] [place] [address] Mar, Hypothyroidism, unspecified hypothyroidism type E03.9 [place] [id number] [place] [address] Mar, Osteoporosis M81.0 ; Low hemoglobin D64.9 and Hypothyroidism, unspecified hypothyroidism type E03.9 [place] [id number] [place] [address] Mar, Hypothyroidism, unspecified hypothyroidism type E03.9 ; Bilirubin in urine R82.2 and Pancytopenia D61.818 [place] [address] [place] [address] Feb, [facility] [id number] [place] [address] 18 Feb, 2017 Cough R05 and Bronchitis J40 [facility] [place] [id number] [place] [address] 14 Feb, 2017 Other viral agents as the cause of diseases classified elsewhere B97.89 and Acute upper respiratory infection, unspecified J06.9 [place] [id number] [place] [address] Feb, Fibromyalgia M79.7 ; Chronic pain syndrome G89.4 ; Hypothyroidism, unspecified hypothyroidism type E03.9 ; Primary insomnia F51.01 ; Osteoporosis M81.0 ; Vision abnormalities H53.9 ; Pancytopenia D61.818 ; BMI 28.0-28.9,adult Z68.28 and Encounter for immunization Z23 [place] [address] [address] Feb, Neuroma D36.10 and Capsulitis of right foot M77.[address] [address] Feb, [place] [address] [address] Feb, Hypothyroidism, unspecified hypothyroidism type E03.9 [place] [address] [address] Jan, [place] [address] [address] Jan, Atrial fibrillation, unspecified type I48.[address] [address] Jan, [place] [address] [address] Jan, Fibromyalgia M79.7 ; Atrial fibrillation, unspecified type I48.91 ; Pain of left hand M79.642 ; Pain in right hand M79.641 ; Chronic prescription opiate use Z79.891 ; Chronic pain syndrome G89.4 ; Elevated fasting glucose R73.01 and Hypothyroidism, unspecified hypothyroidism type E03.9 [place] [address] [address] Jan, [place] [address] [address] Dec, Trochanteric bursitis of both hips M70.61 [facility] [id number] [place] [address] Dec, [facility] [id number] [place] [address] Dec, [facility] [id number] [place] [address] Nov, [facility] [id number] [place] [address] Nov, Unilateral headache R51 [facility] [address] [address] Nov, [facility] [id number] [place] [address] Oct, Unilateral headache R51 ; 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 and Allergy to intravenous contrast Z91.041 [facility] [id number] [place] [address] Oct, [facility] [id number] [place] [address] Oct, [facility] [id number] [place] [address] Sep, Hypothyroidism, unspecified hypothyroidism type E03.9 [facility] [id number] [place] [address] Sep, Hypothyroidism, unspecified hypothyroidism type E03.9 and Bilirubin in urine R82.2 [facility] [id number] [place] [address] Sep, Trochanteric bursitis of both hips M70.61 [facility] [id number] [place] [address] Sep, Hypothyroidism, unspecified hypothyroidism type E03.9 ; Dysuria R30.0 ; Chronic tension-type headache, not intractable G44.229 and Drug induced constipation K59.03 [facility] [id number] [place] [address] Sep, [facility] [id number] [place] [address] Sep, [facility] [id number] [place] [address] August, [facility] [id number] [place] [address] Jul, [facility] [id number] [place] [address] Jul, Trochanteric bursitis of right hip M70.61 [place] [id number] [place] [address] Jul, Hypothyroidism, unspecified hypothyroidism type E03.9 [place] [id number] [place] [address] Jul, Fibromyalgia M79.7 ; Chronic pain syndrome G89.4 ; Hypothyroidism, unspecified hypothyroidism type E03.9 and Other constipation K59.09 [facility] [id number] [place] [address] Jun, Swollen tonsil J35.1 and Strep throat J02.0 [facility] [id number] [place] [address] Jun, [facility] [id number] [place] [address] Jun, Acute maxillary sinusitis J01.00 [facility] [id number] [place] [address] Jun, Hypothyroidism, unspecified hypothyroidism type E03.9 [facility] [id number] [place] [address] Jun, Chronic pain syndrome G89.4 ; Fibromyalgia M79.7 ; Hypothyroidism, unspecified hypothyroidism type E03.9 and Chronic prescription opiate use Z79.891 [facility] [id number] [place] [address] 10 May, 2016 [facility] [id number] [place] [address] Apr, Hypothyroidism, unspecified hypothyroidism type E03.9 [place] [id number] [place] [address] Apr, [place] [id number] [place] [address] Apr, Lipid screening Z13.220 and Hypothyroidism, unspecified hypothyroidism type E03.9 [place] [id number] [place] [address] Apr, [place] [address] [address] Mar, Trochanteric bursitis of both hips M70.61 [place] [id number] [place] [address] Mar, [place] [address] [address] Mar, Plantar fasciitis M72.2 and Porokeratosis Q82.8 [place] [id number] [place] [address] Feb, Lipid screening Z13.220 ; Vitamin D deficiency E55.9 and Hypothyroidism, unspecified hypothyroidism type E03.9 [place] [address] [place] [address] 16 Feb, 2016 Chronic pain syndrome G89.4 ; Hypothyroidism, unspecified hypothyroidism type E03.9 ; Pancytopenia D61.818 ; Vaginal atrophy N95.2 ; Chronic gastritis without bleeding, unspecified gastritis type K29.50 ; Vitamin D deficiency E55.9 ; Chronic prescription opiate use Z79.891 ; Adverse effect of other opioids, initial encounter T40.2X5A ; Drug induced constipation K59.03 ; Lipid screening Z13.220 and Encounter for immunization Z23 [facility] [id number] [place] [address] Feb, [facility] [id number] [place] [address] Feb, Ingrown toenail L60.0 [facility] [address] [address] Jan, [facility] [id number] [place] [address] Jan, Trochanteric bursitis of both hips M70.61 [facility] [id number] [place] [address] Jan, [facility] [id number] [place] [address] Jan, [facility] [id number] [place] [address] Jan, [facility] [id number] [place] [address] Jan, Right sided sciatica M54.31 [facility] [id number] [place] [address] 23 Dec, 2015 Onychomycosis B35.1 [facility] [id number] [place] [address] Dec, [facility] [id number] [place] [address] Dec, [facility] [address] [address] 09 Dec, 2015 [facility] [id number] [place] [address] Dec, Osteoarthritis of right hip, unspecified osteoarthritis type M16.11 and Bursitis of right hip M70.71 [facility] [id number] [address] Nov, [facility] [id number] [place] [address] Nov, [facility] [id number] [place] [address] Nov, [facility] [id number] [place] [address] Nov, Hypothyroidism, unspecified hypothyroidism type E03.9 ; Vitamin D deficiency E55.9 and History of hepatitis C Z86.19 [facility] [id number] [place] [address] Nov, Right upper quadrant pain R10.11 ; History of hepatitis C Z86.19 and Low back pain M54.5 [facility] [id number] [place] [address] Oct, Trochanteric bursitis, right hip M70.61 [facility] [id number] [place] [address] Oct, [facility] [id number] [place] [address] Oct, [facility] [id number] [place] [address] Oct, Trochanteric bursitis of both hips M70.61 and Right sided sciatica M54.31 [facility] [address] [place] [address] Oct, Trochanteric bursitis of both hips M70.61 [facility] [id number] [place] [address] 14 Oct, 2015 RUQ abdominal pain R10.11 [facility] [address] [place] [address] 13 Oct, 2015 Sciatic leg pain M54.30 [facility] [id number] [place] [address] Oct, RUQ abdominal pain R10.11 [place] [address] [address] 07 Oct, 2015 RUQ abdominal pain R10.11 ; History of hepatitis C Z86.19 and Trigger point with back pain M54.9 [place] [address] [address] Sep, [place] [address] [address] Sep, Right sided sciatica M54.31 [place] [address] [address] Sep, Hypothyroidism, unspecified hypothyroidism type E03.9 and Vitamin D deficiency E55.9 [place] [address] [address] Sep, Plantar fasciitis M72.2 and Porokeratosis Q82.8 [place] [address] [address] Sep, Hypothyroidism, unspecified hypothyroidism type E03.9 ; Chronic pain syndrome G89.4 ; Polyneuropathy associated with underlying disease G63 and Vitamin D deficiency E55.9 [place] [id number] [place] [address] August, [place] [address] [address] Jul, Plantar fasciitis M72.2 [place] [address] [address] Jul, Trochanteric bursitis, right hip M70.61 [place] [id number] [place] [address] Jul, Hypothyroidism, unspecified hypothyroidism type E03.9 [place] [address] [place] [address] Jul, Hypothyroidism, unspecified hypothyroidism type E03.9 ; Chronic pain syndrome G89.4 and Polyneuropathy associated with underlying disease G63 [place] [address] [address] 10 Jun, 2015 Trochanteric bursitis of both hips M70.61 [place] [address] [address] 08 Jun, 2015 Vitamin D deficiency E55.9 ; Osteoporosis M81.0 ; Low back pain M54.5 and Plantar fasciitis M72.2 [place] [address] [address] 26 May, 2015 Vitamin D deficiency E55.9 and Hypothyroidism, unspecified hypothyroidism type E03.9 [place] [address] [address] 23 May, 2015 Acute maxillary sinusitis J01.00 [place] [address] [address] 18 May, 2015 Osteoporosis M81.0 and Hypothyroidism, unspecified hypothyroidism type E03.9 [place] [id number] [place] [address] 16 May, 2015 Osteoporosis M81.0 [place] [id number] [place] [address] 15 May, 2015 [place] [address] [address] Apr, [place] [id number] [place] [address] Apr, Trochanteric bursitis of both hips M70.61 [place] [id number] [place] [address] Apr, Hypothyroidism, unspecified hypothyroidism type E03.9 [place] [address] [address] Apr, Chronic pain syndrome G89.4 ; Bilateral low back pain with sciatica, sciatica laterality unspecified M54.40 ; Pain in right hip M25.551 ; Pain in left hip M25.552 ; Chronic prescription opiate use Z79.899 ; Primary insomnia F51.01 and Hypothyroidism, unspecified hypothyroidism type E03.9 [place] [address] [address] Mar, [place] [address] [address] Feb, [place] [address] [address] Feb, Chronic pain syndrome G89.4 and Major depression F32.9 [place] [address] [address] Feb, Fatigue R53.83 [place] [address] [address] Feb, History of fracture Z87.81 [place] [address] [address] Feb, Major depression, recurrent F33.9 and Generalized anxiety disorder F41.1 [place] [address] [address] Feb, [place] [address] [address] Jan, Hypothyroidism, unspecified hypothyroidism type E03.9 [place] [address] [address] Jan, Abdominal pain R10.9 and Hypothyroidism, unspecified hypothyroidism type E03.9 [place] [id number] [place] [address] Jan, Abdominal pain R10.9 [place] [address] [address] Jan, Hypothyroidism, unspecified hypothyroidism type E03.9 [place] [id number] [place] [address] Jan, [place] [address] [address] Jan, Encntr for gynecological assistant exam (general) (routine) w/o 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 Z01.419 and Hypothyroidism, unspecified hypothyroidism type E03.9 [place] [id number] [place] [address] Jan, Encntr for gynecological assistant exam (general) (routine) w/o 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 Z01.419 ; Abdominal pain R10.9 ; Dyspareunia N94.1 ; Encounter for immunization Z23 ; History of fracture Z87.81 ; Fatigue R53.83 ; Throat fullness R68.89 ; Bruises easily R23.8 ; Hot flashes N95.1 ; Depression F32.9 and Vaginal atrophy N95.2 [place] [id number] [place] [address] Jan, Hypothyroidism, unspecified hypothyroidism type E03.9 [place] [address] [address] 14 Jan, 2015 Unspecified abdominal pain R10.9 ; Chronic obstructive pulmonary disease, unspecified COPD type J44.9 ; Allergic rhinitis, unspecified allergic rhinitis type J30.9 ; Chronic pain syndrome G89.4 ; Hypothyroidism, unspecified hypothyroidism type E03.9 ; Chest pain, unspecified chest pain type R07.9 and Plantar fasciitis M72.2 [place] [id number] [place] [address] Jan, Trochanteric bursitis of both hips M70.61 [place] [id number] [place] [address] Dec, [place] [address] [address] Nov, [facility] [address] [place] [address] Nov, [facility] [address] [place] [address] Nov, Constipation 564.00 [facility] [address] [place] [address] Oct, Chronic pain 338.29 and Hypothyroidism 244.9 [facility] [id number] [address] Oct, [facility] [address] [place] [address] Sep, [facility] [address] [place] [address] Sep, [facility] [address] [place] [address] Sep, [facility] [address] [place] [address] Sep, [facility] [address] [place] [address] Sep, [facility] [address] [place] [address] Sep, [facility] [address] [place] [address] Sep, COPD exacerbation 491.21 ; Chronic pain 338.29 ; Hypothyroidism 244.9 and Pancytopenia 284.19 [facility] [id number] [place] [address] August, [facility] [id number] [place] [address] Jul, [facility] [id number] [address] Jul, [facility] [id number] [address] Jun, [facility] [place] [facility] [address] [id number] [place] [address] Jun, [facility] [place] [facility] [address] [id number] [place] [address] Jun, [facility] [place] [facility] [address] [id number] [place] [address] Jun, [facility] [place] [facility] [address] [id number] [place] [address] Jun, [facility] [place] [facility] [address] [id number] [place] [address] May, [facility] [place] [facility] [address] [facility] [id number] [place] [address] May, [facility] [place] [facility] [address] [facility] [id number] [place] [address] May, [facility] [place] [facility] [address] [facility] [id number] [place] [address] May, [facility] [place] [facility] [address] [facility] [id number] [place] [address] May, [facility] [place] [facility] [address] [facility] [id number], [place] [address] May, [facility] [place] [facility] [address] [facility] [id number], [place] [address] May, 2014 [facility] [place] [facility] [address] [facility] [id number] [place] [address] May, [facility] [place] [facility] [address] [facility] [id number] [place] [address] May, [facility] [place] [facility] [address] [facility] [id number], [place] [address] May, 2014 [facility] [place] [facility] [address] [facility] [id number], [place] [address] May, [facility] [place] [facility] [address] [id number] [place] [address] May, [facility] [place] [facility] [address] [id number] [place] [address] May, [facility] [place] [facility] [address] [facility] [id number] [place] [address] Apr, [facility] [place] [facility] [address] [id number] [place] [address] Apr, [facility] [place] [facility] [address] [id number] [place] [address] Apr, [facility] [place] [facility] [address] [facility] [id number] [place] [address] Apr, [facility] [place] [facility] [address] [facility] [id number] [place] [address] Apr, [facility] [place] [facility] [address] [facility] [id number] [place] [address] Apr, [facility] [place] [facility] [address] [facility] [id number] [place] [address] Apr, [facility] [place] [facility] [address] [facility] [id number] [place] [address] Mar, [facility] [place] [facility] [address] [facility] [id number] [place] [address] 31 Mar, 2014 [facility] [place] [facility] [address] [id number] [place] [address] Mar, [facility] [place] [facility] [address] [id number] [place] [address] 18 Mar, 2014 [facility] [place] [facility] [address] [facility] [id number] [place] [address] Mar, [facility] [place] [facility] [address] [facility] [id number] [place] [address] 17 Mar, 2014 [facility] [place] [facility] [address] [id number] [place] [address] Feb, [facility] [place] [facility] [address] [id number] [place] [address] Feb, [facility] [place] [facility] [address] [id number] [place] [address] Feb, [facility] [place] [facility] [address] [id number] [place] [address] Feb, [facility] [place] [facility] [address] [id number] [place] [address] Feb, [facility] [place] [facility] [address] [id number] [place] [address] Feb, [facility] [place] [facility] [address] [id number] [place] [address] Jan, [facility] [place] [facility] [address] [id number] [place] [address] Jan, [facility] [place] [facility] [address] [id number] [place] [address] Jan, [facility] [place] [facility] [address] [id number] [place] [address] Jan, [facility] [place] [facility] [address] [facility] [id number] [place] [address] Jan, [facility] [place] [facility] [address] [id number] [place] [address] Jan, [facility] [place] [facility] [address] [id number] [place] [address] Jan, [facility] [place] [facility] [address] [id number] [place] [address] Jan, [facility] [place] [facility] [address] [id number] [place] [address] Dec, [facility] [place] [facility] [address] [id number] [place] [address] Dec, [facility] [place] [facility] [address] [id number] [place] [address] Dec, [facility] [place] [facility] [address] [id number] [place] [address] Dec, [facility] [place] [facility] [address] [id number] [place] [address] Dec, [facility] [place] [facility] [address] [id number] [place] [address] Dec, [facility] [place] [facility] [address] [id number] [place] [address] Dec, [facility] [place] [facility] [address] [id number] [place] [address] Nov, [facility] [place] [facility] [address] [id number] [place] [address] Nov, [facility] [place] [facility] [address] [id number] [place] [address] Oct, [facility] [place] [facility] [address] [id number] [place] [address] Oct, [facility] [place] [facility] [address] [id number] [place] [address] Oct, [facility] [place] [facility] [address] [id number] [place] [address] Oct, [facility] [place] [facility] [address] [id number], [place] [address] Sep, [facility] [place] [facility] [address] [id number] [place] [address] Sep, [facility] [place] [facility] [address] [id number] [place] [address] Sep, [facility] [place] [facility] [address] [id number] [place] [address] Sep, [facility] [place] [facility] [address] [id number] [place] [address] Sep, [facility] [place] [facility] [address] [id number] [place] [address] Sep, [facility] [place] [facility] [address] [id number] [place] [address] Sep, [facility] [place] [facility] [address] [id number] [place] [address] Sep, [facility] [place] [facility] [address] [id number] [place] [address] August, [facility] [place] [facility] [address] [id number] [place] [address] August, [facility] [place] [facility] [address] [id number] [place] [address] August, [facility] [place] [facility] [address] [id number] [place] [address] August, [facility] [place] [facility] [address] [id number] [place] [address] Jul, [facility] [place] [facility] [address] [id number] [place] [address] 30 Jul, 2013 [facility] [place] [facility] [address] [id number] [place] [address] Jul, [facility] [place] [facility] [address] [id number] [place] [address] 24 Jul, 2013 [facility] [place] [facility] [address] [id number] [place] [address] 17 Jul, 2013 [facility] [place] [facility] [address] [id number] [place] [address] 16 Jul, 2013 [facility] [place] [facility] [address] [id number] [place] [address] 15 Jul, 2013 [facility] [place] [facility] [address] [id number] [place] [address] 15 Jul, 2013 [facility] [place] [facility] [address] [id number] [place] [address] Jun, [facility] [place] [facility] [address] [id number] [place] [address] Jun, [facility] [place] [facility] [address] [id number] [place] [address] Jun, [facility] [place] [facility] [address] [id number] [place] [address] Jun, [facility] [place] [facility] [address] [id number] [place] [address] Jun, [facility] [place] [facility] [address] [id number] [place] [address] Jun, [facility] [place] [facility] [address] [id number] [place] [address] Jun, [facility] [place] [facility] [address] [id number] [place] [address] Jun, [facility] [place] [facility] [address] [id number] [place] [address] May, [facility] [place] [facility] [address] [id number] [place] [address] May, [facility] [place] [facility] [address] [id number] [place] [address] Apr, [facility] [place] [facility] [address] [id number] [place] [address] Apr, [facility] [place] [facility] [address] [id number] [place] [address] Mar, [facility] [place] [facility] [address] [id number] [place] [address] Mar, [facility] [place] [facility] [address] [id number] [place] [address] Mar, [facility] [place] [facility] [address] [id number], [place] [address] 18 Mar, 2013 [facility] [place] [facility] [address] [id number] [place] [address] 18 Mar, 2013 [facility] [place] [facility] [address] [id number] [place] [address] Mar, [facility] [place] [facility] [address] [id number] [place] [address] Mar, [facility] [place] [facility] [address] [id number] [place] [address] Feb, [facility] [place] [facility] [address] [id number] [place] [address] Feb, [facility] [place] [facility] [address] [id number] [place] [address] Feb, [facility] [place] [facility] [address] [id number] [place] [address] Feb, [facility] [place] [facility] [address] [id number] [place] [address] Feb, [facility] [place] [facility] [address] [id number] [place] [address] 04 Feb, 2013 [facility] [place] [facility] [address] [id number] [place] [address] 26 Dec, 2012 [facility] [place] [facility] [address] [id number], [place] [address] 18 Dec, 2012 [facility] [place] [facility] [address] [id number], [place] [address] 13 Dec, 2012 [facility] [place] [facility] [address] [id number] [place] [address] 13 Dec, 2012 [facility] [place] [facility] [address] [id number] [place] [address] 06 Dec, 2012 [facility] [place] [facility] [address] [id number] [place] [address] 30 Nov, 2012 [facility] [place] [facility] [address] [id number] [place] [address] Nov, [facility] [address] [id number] [place] [address] Oct, [facility] [address] [id number] [place] [address] August, [facility] [address] [id number] [place] [address] August, [facility] [address] [id number] [place] [address] August, [facility] [address] [id number] [place] [address] Jul, [facility] [address] [id number] [place] [address] Jul, [facility] [address] [id number] [place] [address] Jul, [facility] [address] [id number] [place] [address] Jun, [facility] [address] [id number] [place] [address] Jun, [facility] [address] [id number] [place] [address] Jun, [facility] [address] [id number] [place] [address] Jun, [facility] [address] [id number] [place] [address] Jun, [facility] [address] [id number] [place] [address] 15 Jun, 2012 [facility] [address] [id number] [place] [address] Jun, [facility] [address] [id number] [place] [address] May, [facility] [address] [id number] [place] [address] May, [facility] [place] [facility] [address] [id number] [place] [address] May, [facility] [place] [facility] [address] [id number] [place] [address] May, [facility] [place] [facility] [address] [id number] [place] [address] Apr, [facility] [place] [facility] [address] [id number] [place] [address] Apr, [facility] [place] [facility] [address] [id number] [place] [address] Apr, [facility] [place] [facility] [address] [id number] [place] [address] Mar, [facility] [place] [facility] [address] [id number] [place] [address] Mar, [facility] [place] [facility] [address] [id number] [place] [address] Mar, [facility] [place] [facility] [address] [id number] [place] [address] Mar, [facility] [place] [facility] [address] [id number] [place] [address] Mar, [facility] [place] [facility] [address] [id number], [place] [address] Mar, [facility] [place] [facility] [address] [id number] [place] [address] Mar, [facility] [place] [facility] [address] [id number] [place] [address] Mar, [facility] [place] [facility] [address] [id number] [place] [address] Feb, [facility] [place] [facility] [address] [id number] [place] [address] Feb, [facility] [place] [facility] [address] [id number] [place] [address] Feb, [facility] [place] [facility] [address] [id number] [place] [address] Jan, [facility] [place] [facility] [address] [id number] [place] [address] Jan, [facility] [place] [facility] [address] [id number] [place] [address] Jan, [facility] [place] [facility] [address] [id number] [place] [address] Jan, [facility] [place] [facility] [address] [id number] [place] [address] Jan, [facility] [place] [facility] [address] [id number] [place] [address] Jan, [facility] [place] [facility] [address] [id number] [place] [address] Jan, [facility] [place] [facility] [address] [id number] [place] [address] Dec, [facility] [place] [facility] [address] [id number] [place] [address] 24 Dec, 2011 [facility] [place] [facility] [address] [id number] [place] [address] 10 Dec, 2011 [facility] [place] [facility] [address] [id number] [place] [address] 30 Nov, 2011 [facility] [place] [facility] [address] [id number] [place] [address] Nov, [facility] [place] [facility] [address] [id number] [place] [address] Nov, [facility] [place] [facility] [address] [id number] [place] [address] Nov, [facility] [place] [facility] [address] [id number] [place] [address] Oct, [facility] [place] [facility] [address] [id number] [place] [address] Oct, [facility] [place] [facility] [address] [id number] [place] [address] Oct, [facility] [place] [facility] [address] [id number] [place] [address] Sep, [facility] [address] [id number] [place] [address] Sep, [facility] [place] [facility] [address] [id number] [place] [address] Sep, [facility] [address] [id number] [place] [address] Sep, [facility] [place] [facility] [address] [id number] [place] [address] Sep, [facility] [place] [facility] [address] [id number] [place] [address] Sep, [facility] [place] [facility] [address] [id number] [place] [address] August, [facility] [place] [facility] [address] [id number] [place] [address] Jul, [facility] [place] [facility] [address] [id number] [place] [address] Jul, [facility] [place] [facility] [address] [id number] [place] [address] Jul, [facility] [place] [facility] [address] [id number] [place] [address] Jul, [facility] [place] [facility] [address] [id number] [place] [address] Jul, [facility] [place] [facility] [address] [id number] [place] [address] 29 Jun, 2011 [facility] [address] [id number] [place] [address] Jun, [facility] [place] [facility] [address] [id number] [place] [address] Jun, [facility] [place] [facility] [address] [facility] [id number] [place] [address] Jun, [facility] [place] [facility] [address] [id number] [place] [address] Jun, [facility] [place] [facility] [address] [id number] [place] [address] May, [facility] [place] [facility] [address] [id number] [place] [address] May, [facility] [address] [facility] [id number] [place] [address] May, [facility] [place] [facility] [address] [id number] [place] [address] May, [facility] [place] [facility] [address] [facility] [id number] [place] [address] May, [facility] [place] [facility] [address] [facility] [id number] [place] [address] May, [facility] [place] [facility] [address] [facility] [id number] [place] [address] May, [facility] [place] [facility] [address] [id number] [place] [address] Apr, [facility] [place] [facility] [address] [id number] [place] [address] Mar, [facility] [place] [facility] [address] [facility] [id number] [place] [address] Mar, [facility] [place] [facility] [address] [facility] [id number] [place] [address] Mar, [facility] [place] [facility] [address] [id number] [place] [address] Mar, [facility] [place] [facility] [address] [id number] [place] [address] Mar, [facility] [place] [facility] [address] [id number] [place] [address] Feb, [facility] [place] [facility] [address] [id number] [place] [address] Feb, [facility] [place] [facility] [address] [id number] [place] [address] Feb, [facility] [place] [facility] [address] [id number] [place] [address] Feb, [facility] [place] [facility] [address] [id number] [place] [address] Feb, [facility] [place] [facility] [address] [id number] [place] [address] Feb, [facility] [place] [facility] [address] [id number] [place] [address] Feb, [facility] [place] [facility] [address] [id number] [place] [address] Jan, [facility] [place] [facility] [address] [id number] [place] [address] Dec, [facility] [place] [facility] [address] [id number] [place] [address] Oct, [facility] [place] [facility] [address] [id number] [place] [address] Jun, [facility] [place] [facility] [address] [id number] [place] [address] Mar, [facility] [place] [facility] [address] [id number] [place] [address] Mar, [facility] [place] [facility] [address] [id number] [place] [address] 16 Mar, 2010 [facility] [place] [facility] [address] [id number] [place] [address] 16 Mar, 2010 [facility] [place] [facility] [address] [id number] [place] [address] 15 Mar, 2010 [facility] [place] [facility] [address] [id number] [place] [address] 10 Mar, 2010 [facility] [place] [facility] [address] [id number] [place] [address] 10 Mar, 2010 [facility] [place] [facility] [address] [id number] [place] [address] 05 Mar, 2010 [facility] [place] [facility] [address] [id number] [place] [address] 03 Mar, 2010 [facility] [place] [facility] [address] [id number] [place] [address] 02 Mar, 2010 [facility] [place] [facility] [address] [id number] [place] [address] Jan, [facility] [place] [facility] [address] [id number] [place] [address] Jan, [facility] [place] [facility] [address] [id number] [place] [address] Jan, [facility] [place] [facility] [address] [id number] [address] Nov, [facility] [place] [facility] [address] [id number] [place] [address] 13 Oct, 2009 [facility] [place] [facility] [address] [id number] [place] [address] 31 Mar, 2009 [facility] [place] [facility] [address] [id number] [place] [address] 20 Mar, 2009 [facility] [place] [facility] [address] [id number] [place] [address] 17 Mar, 2009 [facility] [place] [facility] [address] [facility] [id number] [place] [address] Mar, [facility] [address] [facility] [id number], [place] [address] Dec, [facility] [address] [id number], [place] [address] August, [facility] [address] [id number], [place] [address] August, [facility] [address] [id number], [place] [address] Jul, [facility] [address] [id number], [place] [address] Jan, [facility] [address] [id number], [place] [address] Jan, IMMUNIZATIONS No Known Immunizations SOCIAL HISTORY Never Assessed REASON FOR VISIT Controlled Med Refill 09/03 PLAN OF CARE VITAL SIGNS MEDICATIONS Medication Instructions Dosage Frequency Start Date End Date Duration Status Hydrocodone-Acetaminophen 10-325 MG Orally 2 times a day 1 tablet as needed 12h August, 28 days Active RESULTS No Results PROCEDURES [...]
--- OUTSIDE RECORDS SUMMARY | 2018-09-22 02:54 | XMS REPORT ---
Author Author NOLAN ALMENDAREZ [facility] Address [address] [place] [address] Care Team Providers Care Clinical Project Manager Name Role Phone NOLAN ALMENDAREZ Unavailable PROBLEMS Type Condition ICD9-CM Code ZSP26-QS Code Onset Dates Condition Status SNOMED Code Problem Chronic gastritis without bleeding, unspecified gastritis type K29.50 Active 1243923 Problem Vitamin D deficiency E55.9 Active 13055378 Problem Osteoporosis M81.0 Active 46104283 Problem Unspecified abdominal pain R10.9 Active 604792166 Problem Fibromyalgia M79.7 Active 02234578 Problem Chronic pain syndrome G89.4 Active 613332586 Problem Trigger point with back pain M54.9 Active 584603581 Problem Chronic tension-type headache, not intractable G44.229 Active 565124083 Problem RUQ abdominal pain R10.11 Active 406184777 Problem Pancytopenia D61.818 Active 140668099 Problem Right sided sciatica M54.31 Active 63671258 Problem Chronic prescription opiate use Z79.891 Active 404670226 Problem Drug induced constipation K59.03 Active 241272351351292 Problem Leukopenia, unspecified type D72.819 Active 73351040 Problem Atrial fibrillation, unspecified type I48.91 Active 49987359 Problem Allergic rhinitis, unspecified allergic rhinitis type J30.9 Active 69017175 Problem Chronic obstructive pulmonary disease, unspecified COPD type J44.9 Active 41899050 Problem Hypothyroidism, unspecified hypothyroidism type E03.9 Active 89716862 Problem Other constipation K59.09 Active 063232370 Problem Porokeratosis Q82.8 Active 988550433 Problem 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 Active 534522409 Problem Allergy to intravenous contrast Z91.041 Active 577111084 Problem Vaginal atrophy N95.2 Active 927958838 Problem Major depression, recurrent F33.9 Active 32581654 Problem History of hepatitis C Z86.19 Active 19473532983554 Problem Hot flashes N95.1 Active 734271716 Problem Plantar fasciitis M72.2 Active 491579507 Problem Polyneuropathy associated with underlying disease G63 Active 260792090 Problem Primary insomnia F51.01 Active 1281653 Problem Low back pain M54.5 Active 780541604 ALLERGIES No Information ENCOUNTERS Encounter Location Date Diagnosis [place] [id number] [place] [address] Nov, [place] [address] [address] Nov, Trochanteric bursitis of both hips M70.61 [place] [address] [address] Oct, Hypothyroidism, unspecified hypothyroidism type E03.9 and Atrial fibrillation, unspecified type I48.91 [place] [id number] [place] [address] Oct, Fibromyalgia M79.7 ; Chronic pain syndrome G89.4 ; Hypothyroidism, unspecified hypothyroidism type E03.9 ; Overweight (BMI 25.0-29.9) E66.3 and Atrial fibrillation, unspecified type I48.91 [place] [id number] [place] [address] Oct, Chronic pain syndrome G89.4 [place] [id number] [place] [address] Sep, Chronic pain syndrome G89.4 [place] [address] [address] August, Somatic dysfunction of lumbar region M99.03 and Somatic dysfunction of pelvis region M99.05 [place] [id number] [place] [address] August, Chronic pain syndrome G89.4 [place] [id number] [place] [address] Jul, Trochanteric bursitis of left hip M70.62 and Trochanteric bursitis, right hip M70.61 [facility] [id number] [place] [address] Jul, [facility] [id number] [place] [address] Jul, Chronic pain syndrome G89.4 [facility] [id number] [place] [address] Jul, Hypothyroidism, unspecified hypothyroidism type E03.9 [facility] [id number] [place] [address] Jul, Hypothyroidism, unspecified hypothyroidism type E03.9 [place] [id number] [place] [address] Jul, Chronic tension-type headache, not intractable G44.229 ; Atrial fibrillation, unspecified type I48.91 ; Chronic pain syndrome G89.4 ; Hypothyroidism, unspecified hypothyroidism type E03.9 ; Pancytopenia D61.818 ; History of hepatitis C Z86.19 ; Vaginal atrophy N95.2 ; RUQ abdominal pain R10.11 ; Chronic prescription opiate use Z79.891 ; Osteoporosis M81.0 and Screening for breast cancer Z12.31 [facility] [id number] [place] [address] Jun, [facility] [id number] [place] [address] May, [facility] [id number] [place] [address] May, [facility] [id number] [place] [address] May, [facility] [id number] [place] [address] Apr, [facility] [id number] [place] [address] Apr, Hypothyroidism, unspecified hypothyroidism type E03.9 [place] [id number] [place] [address] Apr, Hypothyroidism, unspecified hypothyroidism type E03.9 and Leukopenia, unspecified type D72.819 [place] [id number] [place] [address] Mar, [place] [address] [address] Mar, Leukopenia, unspecified type D72.819 [place] [address] [address] Mar, Hypothyroidism, unspecified hypothyroidism type E03.9 and Low hemoglobin D64.9 [place] [id number] [place] [address] Mar, Hypothyroidism, unspecified hypothyroidism type E03.9 [place] [address] [address] Mar, Osteoporosis M81.0 ; Low hemoglobin D64.9 and Hypothyroidism, unspecified hypothyroidism type E03.9 [place] [address] [address] Mar, Hypothyroidism, unspecified hypothyroidism type E03.9 ; Bilirubin in urine R82.2 and Pancytopenia D61.818 [place] [id number] [place] [address] Feb, [facility] [place] [id number] [place] [address] 18 Feb, 2017 Cough R05 and Bronchitis J40 [facility] [address] [address] 14 Feb, 2017 Other viral agents as the cause of diseases classified elsewhere B97.89 and Acute upper respiratory infection, unspecified J06.9 [place] [id number] [place] [address] 08 Feb, 2017 Fibromyalgia M79.7 ; Chronic pain syndrome G89.4 ; Hypothyroidism, unspecified hypothyroidism type E03.9 ; Primary insomnia F51.01 ; Osteoporosis M81.0 ; Vision abnormalities H53.9 ; Pancytopenia D61.818 ; BMI 28.0-28.9,adult Z68.28 and Encounter for immunization Z23 [place] [address] [address] Feb, Neuroma D36.10 and Capsulitis of right foot M77.51 [place] [address] [address] Feb, [place] [address] [address] Feb, Hypothyroidism, unspecified hypothyroidism type E03.9 [place] [address] [address] Jan, [place] [address] [address] Jan, Atrial fibrillation, unspecified type I48.91 [place] [address] [address] Jan, [place] [address] [address] Jan, Fibromyalgia M79.7 ; Atrial fibrillation, unspecified type I48.91 ; Pain of left hand M79.642 ; Pain in right hand M79.641 ; Chronic prescription opiate use Z79.891 ; Chronic pain syndrome G89.4 ; Elevated fasting glucose R73.01 and Hypothyroidism, unspecified hypothyroidism type E03.9 [place] [address] [address] Jan, [place] [address] [address] Dec, Trochanteric bursitis of both hips M70.[address] [address] Dec, [facility] [id number] [place] [address] Dec, [facility] [id number] [place] [address] Nov, [facility] [id number] [place] [address] Nov, Unilateral headache R51 [place] [address] [address] Nov, [place] [address] [address] Oct, Unilateral headache R51 ; 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 and Allergy to intravenous contrast Z91.041 [place] [address] [address] Oct, [place] [address] [address] Oct, [place] [id number] [place] [address] Sep, Hypothyroidism, unspecified hypothyroidism type E03.9 [place] [id number] [place] [address] Sep, Hypothyroidism, unspecified hypothyroidism type E03.9 and Bilirubin in urine R82.2 [place] [id number] [place] [address] Sep, Trochanteric bursitis of both hips M70.61 [place] [address] [address] Sep, Hypothyroidism, unspecified hypothyroidism type E03.9 ; Dysuria R30.0 ; Chronic tension-type headache, not intractable G44.229 and Drug induced constipation K59.03 [place] [address] [address] Sep, [facility] [id number] [place] [address] Sep, [facility] [id number] [place] [address] August, [facility] [id number] [place] [address] Jul, [facility] [id number] [place] [address] Jul, Trochanteric bursitis of right hip M70.61 [facility] [id number] [place] [address] Jul, Hypothyroidism, unspecified hypothyroidism type E03.9 [facility] [id number] [place] [address] Jul, Fibromyalgia M79.7 ; Chronic pain syndrome G89.4 ; Hypothyroidism, unspecified hypothyroidism type E03.9 and Other constipation K59.09 [facility] [id number] [place] [address] Jun, Swollen tonsil J35.1 and Strep throat J02.0 [facility] [id number] [place] [address] Jun, [facility] [id number] [place] [address] Jun, Acute maxillary sinusitis J01.00 [facility] [id number] [place] [address] Jun, Hypothyroidism, unspecified hypothyroidism type E03.9 [facility] [id number] [place] [address] Jun, Chronic pain syndrome G89.4 ; Fibromyalgia M79.7 ; Hypothyroidism, unspecified hypothyroidism type E03.9 and Chronic prescription opiate use Z79.891 [facility] [id number] [place] [address] May, [place] [id number] [place] [address] Apr, Hypothyroidism, unspecified hypothyroidism type E03.9 [place] [id number] [place] [address] Apr, [place] [id number] [place] [address] Apr, Lipid screening Z13.220 and Hypothyroidism, unspecified hypothyroidism type E03.9 [place] [id number] [place] [address] Apr, [place] [id number] [place] [address] Mar, Trochanteric bursitis of both hips M70.[address] [address] Mar, [place] [id number] [place] [address] Mar, Plantar fasciitis M72.2 and Porokeratosis Q82.8 [place] [id number] [place] [address] Feb, Lipid screening Z13.220 ; Vitamin D deficiency E55.9 and Hypothyroidism, unspecified hypothyroidism type E03.9 [place] [id number] [place] [address] 16 Feb, 2016 Chronic pain syndrome G89.4 ; Hypothyroidism, unspecified hypothyroidism type E03.9 ; Pancytopenia D61.818 ; Vaginal atrophy N95.2 ; Chronic gastritis without bleeding, unspecified gastritis type K29.50 ; Vitamin D deficiency E55.9 ; Chronic prescription opiate use Z79.891 ; Adverse effect of other opioids, initial encounter T40.2X5A ; Drug induced constipation K59.03 ; Lipid screening Z13.220 and Encounter for immunization Z23 [place] [id number] [place] [address] Feb, [facility] [address] [facility] [id number] [address] Feb, Ingrown toenail L60.0 [facility] [address] [facility] [id number], [place] [address] Jan, [facility] [address] [facility] [id number] [place] [address] Jan, Trochanteric bursitis of both hips M70.61 [facility] [address] [facility] [id number] [place] [address] Jan, [facility] [address] [place] [id number] [place] [address] Jan, [facility] [id number] [place] [address] Jan, [facility] [id number] [place] [address] Jan, Right sided sciatica M54.31 [facility] [id number] [place] [address] Dec, Onychomycosis B35.1 [facility] [address] [id number] [address] Dec, [facility] [address] [address] Dec, [facility] [address] [facility] [id number], [place] [address] Dec, [facility] [id number] [place] [address] Dec, Osteoarthritis of right hip, unspecified osteoarthritis type M16.11 and Bursitis of right hip M70.71 [facility] [address] [id number] [address] Nov, [facility] [id number] [place] [address] 18 Nov, 2015 [facility] [id number] [place] [address] 17 Nov, 2015 [facility] [id number] [place] [address] 16 Nov, 2015 Hypothyroidism, unspecified hypothyroidism type E03.9 ; Vitamin D deficiency E55.9 and History of hepatitis C Z86.19 [place] [id number] [place] [address] 10 Nov, 2015 Right upper quadrant pain R10.11 ; History of hepatitis C Z86.19 and Low back pain M54.5 [place] [id number] [place] [address] 28 Oct, 2015 Trochanteric bursitis, right hip M70.61 [place] [id number] [place] [address] Oct, [facility] [id number] [place] [address] Oct, [facility] [id number] [place] [address] Oct, Trochanteric bursitis of both hips M70.61 and Right sided sciatica M54.31 [place] [id number] [place] [address] Oct, Trochanteric bursitis of both hips M70.61 [facility] [id number] [place] [address] 14 Oct, 2015 RUQ abdominal pain R10.11 [place] [id number] [place] [address] 13 Oct, 2015 Sciatic leg pain M54.30 [facility] [address] [place] [address] 11 Oct, 2015 RUQ abdominal pain R10.11 [place] [id number] [place] [address] Oct, RUQ abdominal pain R10.11 ; History of hepatitis C Z86.19 and Trigger point with back pain M54.9 [place] [id number] [place] [address] Sep, [place] [id number] [place] [address] Sep, Right sided sciatica M54.31 [place] [id number] [place] [address] Sep, Hypothyroidism, unspecified hypothyroidism type E03.9 and Vitamin D deficiency E55.9 [place] [id number] [place] [address] Sep, Plantar fasciitis M72.2 and Porokeratosis Q82.8 [place] [address] [address] Sep, Hypothyroidism, unspecified hypothyroidism type E03.9 ; Chronic pain syndrome G89.4 ; Vitamin D deficiency E55.9 and Polyneuropathy associated with underlying disease G63 [place] [id number] [place] [address] August, [place] [id number] [place] [address] Jul, Plantar fasciitis M72.2 [place] [id number] [place] [address] Jul, Trochanteric bursitis, right hip M70.61 [place] [id number] [place] [address] Jul, Hypothyroidism, unspecified hypothyroidism type E03.9 [place] [id number] [place] [address] Jul, Hypothyroidism, unspecified hypothyroidism type E03.9 ; Chronic pain syndrome G89.4 and Polyneuropathy associated with underlying disease G63 [facility] [id number] [place] [address] 10 Jun, 2015 Trochanteric bursitis of both hips M70.61 [facility] [id number] [place] [address] 08 Jun, 2015 Vitamin D deficiency E55.9 ; Osteoporosis M81.0 ; Low back pain M54.5 and Plantar fasciitis M72.2 [place] [address] [address] May, Vitamin D deficiency E55.9 and Hypothyroidism, unspecified hypothyroidism type E03.9 [place] [id number] [place] [address] 23 May, 2015 Acute maxillary sinusitis J01.00 [place] [address] [address] 18 May, 2015 Osteoporosis M81.0 and Hypothyroidism, unspecified hypothyroidism type E03.9 [place] [id number] [place] [address] 16 May, 2015 Osteoporosis M81.0 [place] [id number] [place] [address] 15 May, 2015 [place] [id number] [place] [address] Apr, [place] [address] [address] Apr, Trochanteric bursitis of both hips M70.61 [place] [address] [address] Apr, Hypothyroidism, unspecified hypothyroidism type E03.9 [place] [id number] [place] [address] Apr, Chronic pain syndrome G89.4 ; Bilateral low back pain with sciatica, sciatica laterality unspecified M54.40 ; Pain in right hip M25.551 ; Pain in left hip M25.552 ; Chronic prescription opiate use Z79.899 ; Primary insomnia F51.01 and Hypothyroidism, unspecified hypothyroidism type E03.9 [facility] [id number] [place] [address] Mar, [facility] [address] [address] Feb, [facility] [address] [address] Feb, Chronic pain syndrome G89.4 and Major depression F32.9 [place] [address] [address] Feb, Fatigue R53.83 [place] [address] [address] Feb, History of fracture Z87.81 [place] [address] [address] Feb, Major depression, recurrent F33.9 and Generalized anxiety disorder F41.1 [place] [address] [address] Feb, [place] [address] [address] Jan, Hypothyroidism, unspecified hypothyroidism type E03.9 [facility] [id number] [place] [address] Jan, Abdominal pain R10.9 and Hypothyroidism, unspecified hypothyroidism type E03.9 [facility] [id number] [place] [address] Jan, Abdominal pain R10.9 [facility] [id number] [place] [address] Jan, Hypothyroidism, unspecified hypothyroidism type E03.9 [facility] [address] [address] Jan, [place] [id number] [place] [address] Jan, Encntr for vat tender exam (general) (routine) w/o 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 Z01.419 and Hypothyroidism, unspecified hypothyroidism type E03.9 [place] [id number] [place] [address] Jan, Encntr for vat tender exam (general) (routine) w/o 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 Z01.419 ; Abdominal pain R10.9 ; Dyspareunia N94.1 ; Encounter for immunization Z23 ; History of fracture Z87.81 ; Fatigue R53.83 ; Throat fullness R68.89 ; Bruises easily R23.8 ; Hot flashes N95.1 ; Depression F32.9 and Vaginal atrophy N95.2 [place] [id number] [place] [address] Jan, Hypothyroidism, unspecified hypothyroidism type E03.9 [place] [id number] [place] [address] Jan, Unspecified abdominal pain R10.9 ; Chronic obstructive pulmonary disease, unspecified COPD type J44.9 ; Allergic rhinitis, unspecified allergic rhinitis type J30.9 ; Chronic pain syndrome G89.4 ; Hypothyroidism, unspecified hypothyroidism type E03.9 ; Chest pain, unspecified chest pain type R07.9 and Plantar fasciitis M72.2 [place] [id number] [place] [address] Jan, Trochanteric bursitis of both hips M70.61 [place] [address] [id number] [place] [address] Dec, [place] [address] [address] Nov, [place] [id number] [place] [address] Nov, [place] [address], [place] [address] Nov, Constipation 564.00 [facility] [id number] [place] [address] Oct, Chronic pain 338.29 and Hypothyroidism 244.9 [facility] [id number] [place] [address] Oct, [facility] [id number] [place] [address] Sep, [facility] [id number] [place] [address] Sep, [facility] [id number] [place] [address] Sep, [facility] [id number] [place] [address] Sep, [facility] [id number] [place] [address] Sep, [facility] [id number] [place] [address] Sep, [facility] [id number] [place] [address] Sep, COPD exacerbation 491.21 ; Chronic pain 338.29 ; Hypothyroidism 244.9 and Pancytopenia 284.19 [facility] [address] [address] August, [facility] [address] [address] Jul, [facility] [id number] [place] [address] Jul, [facility] [id number] [place] [address] Jun, [facility] [id number] [place] [id number] Jun, [facility] [place] [facility] [address] [id number] [place] [address] Jun, [facility] [place] [facility] [address] [id number] [place] [address] Jun, [facility] [place] [facility] [address] [facility] [id number] [place] [address] Jun, [facility] [place] [facility] [address] [id number] [place] [address] May, 2014 [facility] [place] [facility] [address] [id number] [place] [address] May, 2014 [facility] [place] [facility] [address] [facility] [id number] [place] [address] May, 2014 [facility] [place] [facility] [address] [facility] [id number] [place] [address] May, 2014 [facility] [place] [facility] [address] [facility] [id number] [place] [address] May, 2014 [facility] [place] [facility] [address] [facility] [id number] [place] [address] May, 2014 [facility] [place] [facility] [address] [facility] [id number] [place] [address] May, 2014 [facility] [place] [facility] [address] [facility] [id number] [place] [address] May, 2014 [facility] [place] [facility] [address] [facility] [id number], [place] [address] May, 2014 [facility] [place] [facility] [address] [facility] [id number] [place] [address] May, 2014 [facility] [place] [facility] [address] [facility] [id number] [place] [address] May, 2014 [facility] [place] [facility] [address] [facility] [id number] [place] [address] May, [facility] [place] [facility] [address] [id number] [place] [address] May, [facility] [place] [facility] [address] [id number] [place] [address] Apr, [facility] [place] [facility] [address] [id number] [place] [address] Apr, [facility] [place] [facility] [address] [id number] [place] [address] Apr, [facility] [place] [facility] [address] [id number] [place] [address] Apr, [facility] [place] [facility] [address] [id number] [place] [address] Apr, [facility] [place] [facility] [address] [facility] [id number] [place] [address] Apr, [facility] [place] [facility] [address] [id number] [place] [address] Apr, [facility] [place] [facility] [address] [id number] [place] [address] Mar, [facility] [place] [facility] [address] [id number] [place] [address] Mar, [facility] [place] [facility] [address] [id number] [place] [address] Mar, [facility] [place] [facility] [address] [id number], [place] [address] Mar, [facility] [place] [facility] [address] [id number] [place] [address] Mar, [facility] [place] [facility] [address] [id number] [place] [address] Mar, [facility] [place] [facility] [address] [id number] [place] [address] Feb, [facility] [place] [facility] [address] [id number] [place] [address] Feb, [facility] [place] [facility] [address] [id number] [place] [address] Feb, [facility] [place] [facility] [address] [id number] [place] [address] Feb, [facility] [place] [facility] [address] [id number] [place] [address] Feb, [facility] [place] [facility] [address] [id number] [place] [address] Feb, [facility] [place] [facility] [address] [id number] [place] [address] Jan, [facility] [place] [facility] [address] [id number] [place] [address] Jan, [facility] [place] [facility] [address] [id number] [place] [address] Jan, [facility] [place] [facility] [address] [id number] [place] [address] Jan, [facility] [place] [facility] [address] [id number] [place] [address] Jan, [facility] [place] [facility] [address] [facility] [id number] [place] [address] Jan, [facility] [place] [facility] [address] [id number] [place] [address] Jan, [facility] [place] [facility] [address] [id number] [place] [address] Jan, [facility] [place] [facility] [address] [id number] [place] [address] Dec, [facility] [place] [facility] [address] [id number] [place] [address] Dec, [facility] [place] [facility] [address] [facility] [id number] [place] [address] Dec, [facility] [place] [facility] [address] [id number] [place] [address] 23 Dec, 2013 [facility] [place] [facility] [address] [id number] [place] [address] 13 Dec, 2013 [facility] [place] [facility] [address] [id number] [place] [address] Dec, [facility] [place] [facility] [address] [id number] [place] [address] Dec, [facility] [place] [facility] [address] [id number] [place] [address] Nov, [facility] [place] [facility] [address] [id number] [place] [address] Nov, [facility] [place] [facility] [address] [id number] [place] [address] Oct, [facility] [place] [facility] [address] [id number] [place] [address] Oct, [facility] [place] [facility] [address] [id number] [place] [address] Oct, [facility] [place] [facility] [address] [id number] [place] [address] Oct, [facility] [place] [facility] [address] [id number] [place] [address] Sep, [facility] [place] [facility] [address] [id number] [place] [address] Sep, [facility] [place] [facility] [address] [id number] [place] [address] Sep, [facility] [place] [facility] [address] [id number] [place] [address] Sep, [facility] [place] [facility] [address] [id number] [place] [address] Sep, [facility] [place] [facility] [address] [id number] [place] [address] Sep, [facility] [place] [facility] [address] [id number] [place] [address] Sep, [facility] [place] [facility] [address] [id number] [place] [address] Sep, [facility] [place] [facility] [address] [id number] [place] [address] August, [facility] [place] [facility] [address] [id number] [place] [address] August, [facility] [place] [facility] [address] [id number] [place] [address] August, [facility] [place] [facility] [address] [id number] [place] [address] August, [facility] [place] [facility] [address] [id number] [place] [address] Jul, [facility] [place] [facility] [address] [id number] [place] [address] Jul, [facility] [place] [facility] [address] [id number] [place] [address] Jul, [facility] [place] [facility] [address] [id number] [place] [address] 24 Jul, 2013 [facility] [place] [facility] [address] [id number] [place] [address] 17 Jul, 2013 [facility] [place] [facility] [address] [id number] [place] [address] 16 Jul, 2013 [facility] [place] [facility] [address] [id number] [place] [address] 15 Jul, 2013 [facility] [place] [facility] [address] [id number] [place] [address] 15 Jul, 2013 [facility] [place] [facility] [address] [id number] [place] [address] Jun, [facility] [place] [facility] [address] [id number] [place] [address] 18 Jun, 2013 [facility] [address] [id number] [place] [address] Jun, [facility] [place] [facility] [address] [id number] [place] [address] Jun, [facility] [place] [facility] [address] [id number] [place] [address] Jun, [facility] [place] [facility] [address] [id number] [place] [address] Jun, [facility] [place] [facility] [address] [id number] [place] [address] Jun, [facility] [place] [facility] [address] [id number] [place] [address] Jun, [facility] [place] [facility] [address] [id number] [place] [address] May, [facility] [place] [facility] [address] [id number] [place] [address] May, [facility] [place] [facility] [address] [id number] [place] [address] Apr, [facility] [address] [id number] [place] [address] Apr, [facility] [place] [facility] [address] [id number] [place] [address] Mar, [facility] [place] [facility] [address] [id number] [place] [address] Mar, [facility] [place] [facility] [address] [id number] [place] [address] Mar, [facility] [place] [facility] [address] [id number] [place] [address] Mar, [facility] [place] [facility] [address] [id number] [place] [address] Mar, [facility] [place] [facility] [address] [id number] [place] [address] Mar, [facility] [place] [facility] [address] [id number] [place] [address] Mar, [facility] [place] [facility] [address] [id number] [place] [address] Feb, [facility] [place] [facility] [address] [id number] [place] [address] Feb, [facility] [place] [facility] [address] [id number] [place] [address] Feb, [facility] [place] [facility] [address] [id number] [place] [address] Feb, [facility] [place] [facility] [address] [id number] [place] [address] Feb, [facility] [place] [facility] [address] [id number] [place] [address] Feb, [facility] [place] [facility] [address] [id number] [place] [address] 26 Dec, 2012 [facility] [place] [facility] [address] [id number], [place] [address] 18 Dec, 2012 [facility] [place] [facility] [address] [id number], [place] [address] 13 Dec, 2012 [facility] [place] [facility] [address] [id number], [place] [address] 13 Dec, 2012 [facility] [place] [facility] [address] [id number], [place] [address] 06 Dec, 2012 [facility] [place] [facility] [address] [id number][place] [address] Nov, [facility] [place] [facility] [address] [id number], [place] [address] Nov, [facility] [place] [facility] [address] [id number], [place] [address] Oct, [facility] [address] [id number] [place] [address] August, [facility] [address] [id number] [place] [address] August, [facility] [address] [facility] [id number] [place] [address] August, [facility] [address] [id number] [place] [address] Jul, [facility] [address] [id number] [place] [address] Jul, [facility] [address] [id number] [place] [address] Jul, [facility] [address] [facility] [id number] [place] [address] Jun, [facility] [address] [id number] [place] [address] Jun, [facility] [address] [id number] [place] [address] Jun, [facility] [address] [facility] [id number] [place] [address] Jun, [facility] [address] [id number] [place] [address] Jun, [facility] [address] [id number], [place] [address] 15 Jun, 2012 [facility] [address] [id number] [place] [address] 12 Jun, 2012 [facility] [address] [facility] [id number], [place] [address] 18 May, 2012 [facility] [address] [facility] [id number][place] [address] May, [facility] [address] [id number] [place] [address] May, [facility] [address] [id number] [place] [address] May, [facility] [address] [id number] [place] [address] Apr, [facility] [address] [id number] [place] [address] Apr, [facility] [address] [id number] [place] [address] Apr, [facility] [address] [id number] [place] [address] Mar, [facility] [address] [id number] [place] [address] Mar, [facility] [address] [id number] [place] [address] Mar, [facility] [address] [id number] [place] [address] Mar, [facility] [address] [id number] [place] [address] Mar, [facility] [address] [id number] [place] [address] Mar, [facility] [place] [facility] [address] [id number] [place] [address] Mar, [facility] [place] [facility] [address] [id number] [place] [address] Mar, [facility] [place] [facility] [address] [id number] [place] [address] Feb, [facility] [place] [facility] [address] [id number] [place] [address] Feb, [facility] [place] [facility] [address] [id number] [place] [address] Feb, [facility] [place] [facility] [address] [id number] [place] [address] Jan, [facility] [place] [facility] [address] [id number] [place] [address] Jan, [facility] [place] [facility] [address] [id number] [place] [address] Jan, [facility] [place] [facility] [address] [id number] [place] [address] Jan, [facility] [place] [facility] [address] [id number] [place] [address] Jan, [facility] [place] [facility] [address] [id number] [place] [address] Jan, [facility] [place] [facility] [address] [id number] [place] [address] Jan, [facility] [place] [facility] [address] [id number] [place] [address] Dec, [facility] [place] [facility] [address] [id number] [place] [address] 24 Dec, 2011 [facility] [place] [facility] [address] [id number] [place] [address] Dec, [facility] [place] [facility] [address] [id number] [place] [address] Nov, [facility] [place] [facility] [address] [id number] [place] [address] Nov, [facility] [place] [facility] [address] [id number] [place] [address] Nov, [facility] [place] [facility] [address] [id number] [place] [address] Nov, [facility] [place] [facility] [address] [id number] [place] [address] Oct, [facility] [place] [facility] [address] [id number] [place] [address] 05 Oct, 2011 [facility] [address] [id number] [place] [address] Oct, [facility] [place] [facility] [address] [id number] [place] [address] Sep, [facility] [address] [id number] [place] [address] 16 Sep, 2011 [facility] [address] [id number] [place] [address] 13 Sep, 2011 [facility] [address] [id number] [place] [address] Sep, [facility] [address] [id number] [place] [address] Sep, [facility] [address] [id number] [place] [address] Sep, [facility] [address] [id number] [place] [address] August, [facility] [address] [id number] [place] [address] Jul, [facility] [address] [id number] [place] [address] Jul, [facility] [place] [facility] [address] [id number] [place] [address] Jul, [facility] [address] [id number] [place] [address] Jul, [facility] [place] [facility] [address] [id number] [place] [address] Jul, [facility] [place] [facility] [address] [id number] [place] [address] Jun, [facility] [place] [facility] [address] [id number] [place] [address] Jun, [facility] [address] [id number] [place] [address] 15 Jun, 2011 [facility] [place] [facility] [address] [id number] [place] [address] Jun, [facility] [place] [facility] [address] [id number] [place] [address] Jun, [facility] [place] [facility] [address] [id number] [place] [address] May, [facility] [place] [facility] [address] [id number] [place] [address] May, [facility] [place] [facility] [address] [id number] [place] [address] May, [facility] [place] [facility] [address] [facility] [id number] [place] [address] May, [facility] [place] [facility] [address] [id number] [place] [address] May, [facility] [place] [facility] [address] [id number] [place] [address] May, [facility] [place] [facility] [address] [facility] [id number] [place] [address] May, [facility] [place] [facility] [address] [facility] [id number] [place] [address] Apr, [facility] [place] [facility] [address] [id number] [place] [address] Mar, [facility] [place] [facility] [address] [id number] [place] [address] Mar, [facility] [place] [facility] [address] [facility] [id number] [place] [address] Mar, [facility] [place] [facility] [address] [facility] [id number] [place] [address] Mar, [facility] [place] [facility] [address] [id number] [place] [address] 08 Mar, 2011 [facility] [address] [id number] [place] [address] 23 Feb, 2011 [facility] [place] [facility] [address] [id number] [place] [address] 14 Feb, 2011 [facility] [address] [id number] [place] [address] 14 Feb, 2011 [facility] [place] [facility] [address] [id number] [place] [address] 14 Feb, 2011 [facility] [address] [id number] [place] [address] 07 Feb, 2011 [facility] [address] [id number] [place] [address] Feb, [facility] [address] [id number] [place] [address] Feb, [facility] [address] [id number] [place] [address] 10 Jan, 2011 [facility] [address] [id number] [place] [address] 12 Dec, 2010 [facility] [address] [id number] [place] [address] Oct, [facility] [address] [id number] [place] [address] Jun, [facility] [address] [id number] [place] [address] Mar, [facility] [place] [facility] [address] [id number] [place] [address] Mar, [facility] [place] [facility] [address] [id number] [place] [address] 16 Mar, 2010 [facility] [place] [facility] [address] [id number] [place] [address] 16 Mar, 2010 [facility] [address] [id number] [place] [address] 15 Mar, 2010 [facility] [place] [facility] [address] [id number] [place] [address] 10 Mar, 2010 [facility] [place] [facility] [address] [id number] [place] [address] 10 Mar, 2010 [facility] [place] [facility] [address] [id number] [place] [address] 05 Mar, 2010 [facility] [address] [id number] [place] [address] 03 Mar, 2010 [facility] [place] [facility] [address] [id number] [place] [address] 02 Mar, 2010 [facility] [place] [facility] [address] [id number] [place] [address] Jan, [facility] [place] [facility] [address] [id number], [place] [address] Jan, [facility] [place] [facility] [address] [id number] [place] [address] Jan, [facility] [place] [facility] [address] [id number], [place] [address] Nov, [facility] [place] [facility] [address] [id number], [place] [address] Oct, [facility] [place] [facility] [address] [id number], [place] [address] 31 Mar, 2009 [facility] [place] [facility] [address] [id number] [place] [address] 20 Mar, 2009 [facility] [place] [facility] [address] [id number] [place] [address] 17 Mar, 2009 [facility] [place] [facility] [address] [id number], [place] [address] 17 Mar, 2009 [facility] [place] [facility] [address] [id number], [place] [address] Dec, [facility] [address] [facility] [id number] [place] [address] August, [facility] [address] [facility] [id number], [place] [address] August, [facility] [address] [facility] [id number], [place] [address] Jul, [facility] [address] [facility] [id number], [place] [address] Jan, [facility] [address] [facility] [id number], [place] [address] Jan, IMMUNIZATIONS No Known Immunizations SOCIAL HISTORY Never Assessed REASON FOR VISIT hip injection bilateral, Consult with Nolan Trevino MA PLAN OF CARE Activity Details Follow Up prn Reason: VITAL SIGNS Height 67 in 2017-08-12 Blood pressure systolic 120 mmHg 2017-08-12 Blood pressure diastolic 82 mmHg 2017-08-12 MEDICATIONS Unknown Medications RESULTS No Results PROCEDURES Procedure Date Ordered Result Body Site DRAIN/INJECT, JOINT/BURSA August 12, 2017 DEPO MEDROL 80 MG/ML August 12, 2017 INSTRUCTIONS MEDICATIONS ADMINISTERED No Known Medications [...]
--- OUTSIDE RECORDS SUMMARY | 2018-09-22 02:55 | XMS REPORT ---
Author Author FLORENTINEZEKIEL PUCKETT Organization [facility] Address [address] [place] [address] Care Team Providers Care Senior Tax Analyst Name Role Phone DANICA LERMAY Unavailable PROBLEMS Type Condition ICD9-CM Code AGN97-PO Code Onset Dates Condition Status SNOMED Code Problem Chronic gastritis without bleeding, unspecified gastritis type K29.50 Active 7484211 Problem Vitamin D deficiency E55.9 Active 49057848 Problem Osteoporosis M81.0 Active 60617129 Problem Unspecified abdominal pain R10.9 Active 159099928 Problem Fibromyalgia M79.7 Active 18668289 Problem Chronic pain syndrome G89.4 Active 877043209 Problem Trigger point with back pain M54.9 Active 093534554 Problem Chronic tension-type headache, not intractable G44.229 Active 455700568 Problem RUQ abdominal pain R10.11 Active 592515712 Problem Pancytopenia D61.818 Active 746560556 Problem Right sided sciatica M54.31 Active 21769507 Problem Chronic prescription opiate use Z79.891 Active 858706715 Problem Drug induced constipation K59.03 Active 450044627501264 Problem Leukopenia, unspecified type D72.819 Active 40745932 Problem Atrial fibrillation, unspecified type I48.91 Active 23366075 Problem Allergic rhinitis, unspecified allergic rhinitis type J30.9 Active 32023867 Problem Chronic obstructive pulmonary disease, unspecified COPD type J44.9 Active 51326279 Problem Hypothyroidism, unspecified hypothyroidism type E03.9 Active 13620471 Problem Other constipation K59.09 Active 136490970 Problem Porokeratosis Q82.8 Active 101048056 Problem 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 Active 872085349 Problem Allergy to intravenous contrast Z91.041 Active 308020875 Problem Vaginal atrophy N95.2 Active 733071631 Problem Major depression, recurrent F33.9 Active 09451684 Problem History of hepatitis C Z86.19 Active 45108793808686 Problem Hot flashes N95.1 Active 219793063 Problem Plantar fasciitis M72.2 Active 523556338 Problem Polyneuropathy associated with underlying disease G63 Active 881473348 Problem Primary insomnia F51.01 Active 5724032 Problem Low back pain M54.5 Active 389499688 ALLERGIES No Information ENCOUNTERS Encounter Location Date Diagnosis [place] [id number] [place] [address] Nov, [place] [address] [address] Nov, Trochanteric bursitis of both hips M70.61 [place] [address] [address] Oct, Hypothyroidism, unspecified hypothyroidism type E03.9 and Atrial fibrillation, unspecified type I48.91 [place] [address] [address] Oct, Fibromyalgia M79.7 ; Chronic pain syndrome G89.4 ; Hypothyroidism, unspecified hypothyroidism type E03.9 ; Overweight (BMI 25.0-29.9) E66.3 and Atrial fibrillation, unspecified type I48.91 [place] [id number] [place] [address] Oct, Chronic pain syndrome G89.4 [place] [id number] [place] [address] Sep, Chronic pain syndrome G89.4 [place] [address] [address] August, Somatic dysfunction of lumbar region M99.03 and Somatic dysfunction of pelvis region M99.05 [place] [address] [address] August, Chronic pain syndrome G89.4 [place] [id number] [place] [address] Jul, Trochanteric bursitis of left hip M70.62 and Trochanteric bursitis, right hip M70.61 [facility] [id number] [place] [address] Jul, [facility] [id number] [place] [address] Jul, Chronic pain syndrome G89.4 [facility] [id number] [place] [address] Jul, Hypothyroidism, unspecified hypothyroidism type E03.9 [facility] [id number] [place] [address] Jul, Hypothyroidism, unspecified hypothyroidism type E03.9 [place] [id number] [place] [address] Jul, Chronic tension-type headache, not intractable G44.229 ; Atrial fibrillation, unspecified type I48.91 ; Chronic pain syndrome G89.4 ; Hypothyroidism, unspecified hypothyroidism type E03.9 ; Pancytopenia D61.818 ; History of hepatitis C Z86.19 ; Vaginal atrophy N95.2 ; RUQ abdominal pain R10.11 ; Chronic prescription opiate use Z79.891 ; Osteoporosis M81.0 and Screening for breast cancer Z12.31 [facility] [id number] [place] [address] Jun, [facility] [id number] [place] [address] May, [facility] [id number] [place] [address] May, [facility] [id number] [place] [address] May, [facility] [id number] [place] [address] Apr, [facility] [id number] [place] [address] Apr, Hypothyroidism, unspecified hypothyroidism type E03.9 [place] [id number] [place] [address] Apr, Hypothyroidism, unspecified hypothyroidism type E03.9 and Leukopenia, unspecified type D72.819 [place] [id number] [place] [address] Mar, [place] [address] [address] Mar, Leukopenia, unspecified type D72.819 [place] [address] [address] Mar, Hypothyroidism, unspecified hypothyroidism type E03.9 and Low hemoglobin D64.9 [place] [id number] [place] [address] Mar, Hypothyroidism, unspecified hypothyroidism type E03.9 [place] [id number] [place] [address] Mar, Osteoporosis M81.0 ; Low hemoglobin D64.9 and Hypothyroidism, unspecified hypothyroidism type E03.9 [place] [address] [address] Mar, Hypothyroidism, unspecified hypothyroidism type E03.9 ; Bilirubin in urine R82.2 and Pancytopenia D61.818 [place] [id number] [place] [address] Feb, [facility] [id number] [place] [address] 18 Feb, 2017 Cough R05 and Bronchitis J40 [facility] [place] [id number] [place] [address] 14 Feb, 2017 Other viral agents as the cause of diseases classified elsewhere B97.89 and Acute upper respiratory infection, unspecified J06.[address] [address] Feb, Fibromyalgia M79.7 ; Chronic pain syndrome G89.4 ; Hypothyroidism, unspecified hypothyroidism type E03.9 ; Primary insomnia F51.01 ; Osteoporosis M81.0 ; Vision abnormalities H53.9 ; Pancytopenia D61.818 ; BMI 28.0-28.9,adult Z68.28 and Encounter for immunization Z23 [place] [address] [address] Feb, Neuroma D36.10 and Capsulitis of right foot M77.51 [place] [address] [address] Feb, [place] [address] [address] Feb, Hypothyroidism, unspecified hypothyroidism type E03.9 [place] [address] [address] Jan, [place] [address] [address] Jan, Atrial fibrillation, unspecified type I48.91 [place] [address] [address] Jan, [place] [address] [address] Jan, Fibromyalgia M79.7 ; Atrial fibrillation, unspecified type I48.91 ; Pain of left hand M79.642 ; Pain in right hand M79.641 ; Chronic prescription opiate use Z79.891 ; Chronic pain syndrome G89.4 ; Elevated fasting glucose R73.01 and Hypothyroidism, unspecified hypothyroidism type E03.9 [place] [address] [address] Jan, [place] [address] [address] Dec, Trochanteric bursitis of both hips M70.61 [place] [address] [address] Dec, [place] [address] [address] Dec, [place] [address] [address] Nov, [place] [address] [address] Nov, Unilateral headache R51 [place] [address] [address] Nov, [place] [address] [address] Oct, Unilateral headache R51 ; 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 and Allergy to intravenous contrast Z91.041 [place] [address] [address] Oct, [place] [address] [address] Oct, [place] [address] [address] Sep, Hypothyroidism, unspecified hypothyroidism type E03.9 [place] [address] [address] Sep, Hypothyroidism, unspecified hypothyroidism type E03.9 and Bilirubin in urine R82.2 [place] [id number] [place] [address] Sep, Trochanteric bursitis of both hips M70.[address] [address] Sep, Hypothyroidism, unspecified hypothyroidism type E03.9 ; Dysuria R30.0 ; Chronic tension-type headache, not intractable G44.229 and Drug induced constipation K59.03 [place] [address] [address] Sep, [facility] [id number] [place] [address] Sep, [facility] [id number] [place] [address] August, [facility] [id number] [place] [address] Jul, [facility] [address] [address] Jul, Trochanteric bursitis of right hip M70.61 [facility] [address] [address] Jul, Hypothyroidism, unspecified hypothyroidism type E03.9 [place] [id number] [place] [address] Jul, Fibromyalgia M79.7 ; Chronic pain syndrome G89.4 ; Hypothyroidism, unspecified hypothyroidism type E03.9 and Other constipation K59.09 [facility] [id number] [place] [address] Jun, Swollen tonsil J35.1 and Strep throat J02.0 [facility] [id number] [place] [address] Jun, [facility] [id number] [place] [address] Jun, Acute maxillary sinusitis J01.00 [facility] [id number] [place] [address] Jun, Hypothyroidism, unspecified hypothyroidism type E03.9 [facility] [id number] [place] [address] Jun, Chronic pain syndrome G89.4 ; Fibromyalgia M79.7 ; Hypothyroidism, unspecified hypothyroidism type E03.9 and Chronic prescription opiate use Z79.891 [facility] [address] [address] May, [place] [id number] [place] [address] Apr, Hypothyroidism, unspecified hypothyroidism type E03.9 [place] [id number] [place] [address] Apr, [place] [id number] [place] [address] Apr, Lipid screening Z13.220 and Hypothyroidism, unspecified hypothyroidism type E03.9 [place] [id number] [place] [address] Apr, [place] [address] [address] Mar, Trochanteric bursitis of both hips M70.[address] [address] Mar, [place] [id number] [place] [address] Mar, Plantar fasciitis M72.2 and Porokeratosis Q82.8 [place] [id number] [place] [address] Feb, Lipid screening Z13.220 ; Vitamin D deficiency E55.9 and Hypothyroidism, unspecified hypothyroidism type E03.9 [place] [id number] [place] [address] 16 Feb, 2016 Chronic pain syndrome G89.4 ; Hypothyroidism, unspecified hypothyroidism type E03.9 ; Pancytopenia D61.818 ; Vaginal atrophy N95.2 ; Chronic gastritis without bleeding, unspecified gastritis type K29.50 ; Vitamin D deficiency E55.9 ; Chronic prescription opiate use Z79.891 ; Adverse effect of other opioids, initial encounter T40.2X5A ; Drug induced constipation K59.03 ; Lipid screening Z13.220 and Encounter for immunization Z23 [place] [id number] [place] [address] Feb, [facility] [address] [facility] [id number] [address] Feb, Ingrown toenail L60.0 [facility] [address] [facility] [id number], [place] [address] Jan, [facility] [address] [facility] [id number] [place] [address] Jan, Trochanteric bursitis of both hips M70.61 [facility] [address] [facility] [id number], [place] [address] Jan, [facility] [address] [id number] [place] [address] Jan, [facility] [address] [address] Jan, [facility] [address] [id number] [place] [address] Jan, Right sided sciatica M54.31 [facility] [id number] [place] [address] Dec, Onychomycosis B35.1 [facility] [id number] [address] Dec, [facility] [id number] [address] Dec, [facility] [address] [facility] [id number] [address] Dec, [facility] [id number] [address] Dec, Osteoarthritis of right hip, unspecified osteoarthritis type M16.11 and Bursitis of right hip M70.71 [facility] [id number] [address] Nov, [facility] [id number] [place] [address] 18 Nov, 2015 [facility] [id number] [place] [address] 17 Nov, 2015 [facility] [id number] [place] [address] 16 Nov, 2015 Hypothyroidism, unspecified hypothyroidism type E03.9 ; Vitamin D deficiency E55.9 and History of hepatitis C Z86.19 [facility] [id number] [place] [address] 10 Nov, 2015 Right upper quadrant pain R10.11 ; History of hepatitis C Z86.19 and Low back pain M54.5 [facility] [id number] [place] [address] 28 Oct, 2015 Trochanteric bursitis, right hip M70.61 [place] [id number] [place] [address] Oct, [facility] [id number] [place] [address] Oct, [place] [id number] [place] [address] Oct, Trochanteric bursitis of both hips M70.61 and Right sided sciatica M54.31 [place] [id number] [place] [address] 20 Oct, 2015 Trochanteric bursitis of both hips M70.61 [facility] [id number] [place] [address] 14 Oct, 2015 RUQ abdominal pain R10.11 [place] [id number] [place] [address] 13 Oct, 2015 Sciatic leg pain M54.30 [facility] [id number] [place] [address] 11 Oct, 2015 RUQ abdominal pain R10.11 [place] [id number] [place] [address] Oct, RUQ abdominal pain R10.11 ; History of hepatitis C Z86.19 and Trigger point with back pain M54.9 [place] [id number] [place] [address] Sep, [place] [address] [address] Sep, Right sided sciatica M54.31 [place] [id number] [place] [address] Sep, Hypothyroidism, unspecified hypothyroidism type E03.9 and Vitamin D deficiency E55.9 [place] [address] [address] Sep, Plantar fasciitis M72.2 and Porokeratosis Q82.8 [place] [address] [address] Sep, Hypothyroidism, unspecified hypothyroidism type E03.9 ; Chronic pain syndrome G89.4 ; Vitamin D deficiency E55.9 and Polyneuropathy associated with underlying disease G63 [place] [id number] [place] [address] August, [place] [id number] [place] [address] Jul, Plantar fasciitis M72.2 [place] [address] [address] Jul, Trochanteric bursitis, right hip M70.61 [place] [address] [address] Jul, Hypothyroidism, unspecified hypothyroidism type E03.9 [place] [id number] [place] [address] Jul, Hypothyroidism, unspecified hypothyroidism type E03.9 ; Chronic pain syndrome G89.4 and Polyneuropathy associated with underlying disease G63 [facility] [id number] [place] [address] Jun, Trochanteric bursitis of both hips M70.61 [facility] [id number] [place] [address] 08 Jun, 2015 Vitamin D deficiency E55.9 ; Osteoporosis M81.0 ; Low back pain M54.5 and Plantar fasciitis M72.2 [place] [id number] [place] [address] May, Vitamin D deficiency E55.9 and Hypothyroidism, unspecified hypothyroidism type E03.9 [place] [id number] [place] [address] 23 May, 2015 Acute maxillary sinusitis J01.00 [place] [address] [address] 18 May, 2015 Osteoporosis M81.0 and Hypothyroidism, unspecified hypothyroidism type E03.9 [place] [id number] [place] [address] 16 May, 2015 Osteoporosis M81.0 [facility] [id number] [place] [address] 15 May, 2015 [place] [id number] [place] [address] Apr, [facility] [id number] [place] [address] Apr, Trochanteric bursitis of both hips M70.61 [facility] [id number] [place] [address] Apr, Hypothyroidism, unspecified hypothyroidism type E03.9 [facility] [id number] [place] [address] Apr, Chronic pain syndrome G89.4 ; Bilateral low back pain with sciatica, sciatica laterality unspecified M54.40 ; Pain in right hip M25.551 ; Pain in left hip M25.552 ; Chronic prescription opiate use Z79.899 ; Primary insomnia F51.01 and Hypothyroidism, unspecified hypothyroidism type E03.9 [facility] [address] [address] Mar, [facility] [address] [address] Feb, [facility] [address] [address] Feb, Chronic pain syndrome G89.4 and Major depression F32.9 [place] [address] [address] Feb, Fatigue R53.83 [place] [address] [address] Feb, History of fracture Z87.81 [place] [address] [address] Feb, Major depression, recurrent F33.9 and Generalized anxiety disorder F41.1 [place] [address] [address] Feb, [place] [address] [address] Jan, Hypothyroidism, unspecified hypothyroidism type E03.9 [facility] [id number] [place] [address] Jan, Abdominal pain R10.9 and Hypothyroidism, unspecified hypothyroidism type E03.9 [facility] [address] [address] Jan, Abdominal pain R10.9 [facility] [id number] [place] [address] Jan, Hypothyroidism, unspecified hypothyroidism type E03.9 [facility] [address] [place] [address] Jan, [place] [address] [address] Jan, 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 for 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 hospitalist physician exam (general) (routine) w/o 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 Z01.419 and Hypothyroidism, unspecified hypothyroidism type E03.9 [place] [address] [address] Jan, Encntr for 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 hospitalist physician exam (general) (routine) w/o 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 Z01.419 ; Abdominal pain R10.9 ; Dyspareunia N94.1 ; Encounter for immunization Z23 ; History of fracture Z87.81 ; Fatigue R53.83 ; Throat fullness R68.89 ; Bruises easily R23.8 ; Hot flashes N95.1 ; Depression F32.9 and Vaginal atrophy N95.2 [place] [address] [address] Jan, Hypothyroidism, unspecified hypothyroidism type E03.9 [place] [address] [address] Jan, Unspecified abdominal pain R10.9 ; Chronic obstructive pulmonary disease, unspecified COPD type J44.9 ; Allergic rhinitis, unspecified allergic rhinitis type J30.9 ; Chronic pain syndrome G89.4 ; Hypothyroidism, unspecified hypothyroidism type E03.9 ; Chest pain, unspecified chest pain type R07.9 and Plantar fasciitis M72.2 [place] [address] [address] Jan, Trochanteric bursitis of both hips M70.61 [place] [address] [address] Dec, [place] [address] [address] Nov, [place] [address] [address] Nov, [place] [address], [place] [address] Nov, Constipation 564.00 [facility] [id number] [place] [address] Oct, Chronic pain 338.29 and Hypothyroidism 244.9 [facility] [address], [place] [address] Oct, [facility] [id number] [place] [address] Sep, [facility] [id number] [place] [address] Sep, [facility] [id number] [place] [address] Sep, [facility] [id number] [place] [address] Sep, [facility] [id number] [place] [address] Sep, [facility] [id number] [place] [address] Sep, [facility] [id number] [address] Sep, COPD exacerbation 491.21 ; Chronic pain 338.29 ; Hypothyroidism 244.9 and Pancytopenia 284.19 [facility] [address] [address] August, [facility] [id number] [address] Jul, [facility] [id number] [address] Jul, [facility] [id number] [place] [address] Jun, [facility] [id number] [address] Jun, [facility] [place] [facility] [address] [id number] [place] [address] Jun, [facility] [place] [facility] [address] [id number] [place] [address] Jun, [facility] [place] [facility] [address] [facility] [id number] [place] [address] Jun, [facility] [place] [facility] [address] [id number] [place] [address] May, 2014 [facility] [place] [facility] [address] [id number] [place] [address] May, 2014 [facility] [place] [facility] [address] [id number] [place] [address] May, 2014 [facility] [place] [facility] [address] [id number] [place] [address] May, 2014 [facility] [place] [facility] [address] [facility] [id number] [place] [address] May, 2014 [facility] [place] [facility] [address] [facility] [id number] [place] [address] May, 2014 [facility] [place] [facility] [address] [facility] [id number] [place] [address] May, 2014 [facility] [place] [facility] [address] [facility] [id number] [place] [address] May, 2014 [facility] [place] [facility] [address] [facility] [id number] [place] [address] May, 2014 [facility] [place] [facility] [address] [id number] [place] [address] May, 2014 [facility] [place] [facility] [address] [facility] [id number] [place] [address] May, 2014 [facility] [place] [facility] [address] [facility] [id number] [place] [address] May, [facility] [place] [facility] [address] [id number] [place] [address] May, [facility] [place] [facility] [address] [id number] [place] [address] Apr, [facility] [place] [facility] [address] [id number] [place] [address] Apr, [facility] [place] [facility] [address] [id number] [place] [address] Apr, [facility] [place] [facility] [address] [id number] [place] [address] Apr, [facility] [place] [facility] [address] [id number] [place] [address] Apr, [facility] [place] [facility] [address] [id number] [place] [address] Apr, [facility] [place] [facility] [address] [id number] [place] [address] Apr, [facility] [place] [facility] [address] [id number] [place] [address] Mar, [facility] [place] [facility] [address] [id number] [place] [address] Mar, [facility] [place] [facility] [address] [id number] [place] [address] Mar, [facility] [place] [facility] [address] [id number], [place] [address] 18 Mar, 2014 [facility] [place] [facility] [address] [id number] [place] [address] 17 Mar, 2014 [facility] [place] [facility] [address] [id number] [place] [address] Mar, [facility] [place] [facility] [address] [id number] [place] [address] Feb, [facility] [place] [facility] [address] [id number] [place] [address] Feb, [facility] [place] [facility] [address] [id number] [place] [address] Feb, [facility] [place] [facility] [address] [id number] [place] [address] Feb, [facility] [place] [facility] [address] [id number] [place] [address] Feb, [facility] [place] [facility] [address] [id number] [place] [address] Feb, [facility] [place] [facility] [address] [id number] [place] [address] Jan, [facility] [place] [facility] [address] [id number] [place] [address] Jan, [facility] [place] [facility] [address] [facility] [id number] [place] [address] Jan, [facility] [place] [facility] [address] [id number] [place] [address] Jan, [facility] [place] [facility] [address] [id number] [place] [address] Jan, [facility] [place] [facility] [address] [facility] [id number] [place] [address] Jan, [facility] [place] [facility] [address] [id number] [place] [address] Jan, [facility] [place] [facility] [address] [id number] [place] [address] Jan, [facility] [place] [facility] [address] [id number] [place] [address] Dec, [facility] [place] [facility] [address] [id number] [place] [address] Dec, [facility] [place] [facility] [address] [id number] [place] [address] Dec, [facility] [place] [facility] [address] [id number] [place] [address] Dec, [facility] [place] [facility] [address] [id number] [place] [address] Dec, [facility] [place] [facility] [address] [id number] [place] [address] Dec, [facility] [place] [facility] [address] [id number] [place] [address] Dec, [facility] [place] [facility] [address] [id number] [place] [address] Nov, [facility] [place] [facility] [address] [id number] [place] [address] Nov, [facility] [place] [facility] [address] [id number] [place] [address] Oct, [facility] [place] [facility] [address] [id number] [place] [address] Oct, [facility] [place] [facility] [address] [id number] [place] [address] Oct, [facility] [place] [facility] [address] [id number] [place] [address] Oct, [facility] [place] [facility] [address] [id number] [place] [address] Sep, [facility] [place] [facility] [address] [id number] [place] [address] Sep, [facility] [place] [facility] [address] [id number] [place] [address] Sep, [facility] [place] [facility] [address] [id number] [place] [address] Sep, [facility] [place] [facility] [address] [id number] [place] [address] Sep, [facility] [place] [facility] [address] [id number] [place] [address] Sep, [facility] [place] [facility] [address] [id number] [place] [address] Sep, [facility] [place] [facility] [address] [id number] [place] [address] Sep, [facility] [place] [facility] [address] [id number] [place] [address] August, [facility] [place] [facility] [address] [id number] [place] [address] August, [facility] [place] [facility] [address] [id number] [place] [address] August, [facility] [place] [facility] [address] [id number] [place] [address] August, [facility] [place] [facility] [address] [id number] [place] [address] Jul, [facility] [place] [facility] [address] [id number] [place] [address] Jul, [facility] [place] [facility] [address] [id number] [place] [address] Jul, [facility] [place] [facility] [address] [id number] [place] [address] 24 Jul, 2013 [facility] [place] [facility] [address] [id number] [place] [address] 17 Jul, 2013 [facility] [place] [facility] [address] [id number] [place] [address] 16 Jul, 2013 [facility] [place] [facility] [address] [id number] [place] [address] 15 Jul, 2013 [facility] [place] [facility] [address] [id number] [place] [address] 15 Jul, 2013 [facility] [place] [facility] [address] [id number] [place] [address] Jun, [facility] [place] [facility] [address] [id number] [place] [address] 18 Jun, 2013 [facility] [place] [facility] [address] [id number] [place] [address] Jun, [facility] [place] [facility] [address] [id number] [place] [address] Jun, [facility] [place] [facility] [address] [id number] [place] [address] Jun, [facility] [place] [facility] [address] [id number] [place] [address] Jun, [facility] [place] [facility] [address] [id number] [place] [address] Jun, [facility] [place] [facility] [address] [id number] [place] [address] Jun, [facility] [place] [facility] [address] [id number] [place] [address] May, [facility] [place] [facility] [address] [id number] [place] [address] May, [facility] [place] [facility] [address] [id number] [place] [address] Apr, [facility] [place] [facility] [address] [id number] [place] [address] Apr, [facility] [place] [facility] [address] [id number] [place] [address] Mar, [facility] [place] [facility] [address] [id number] [place] [address] Mar, [facility] [place] [facility] [address] [id number] [place] [address] Mar, [facility] [place] [facility] [address] [id number] [place] [address] Mar, [facility] [place] [facility] [address] [id number] [place] [address] Mar, [facility] [place] [facility] [address] [id number] [place] [address] Mar, [facility] [place] [facility] [address] [id number] [place] [address] Mar, [facility] [place] [facility] [address] [id number] [place] [address] Feb, [facility] [place] [facility] [address] [id number] [place] [address] Feb, [facility] [place] [facility] [address] [id number] [place] [address] Feb, [facility] [place] [facility] [address] [id number] [place] [address] Feb, [facility] [place] [facility] [address] [id number] [place] [address] Feb, [facility] [place] [facility] [address] [id number] [place] [address] Feb, [facility] [place] [facility] [address] [id number] [place] [address] 26 Dec, 2012 [facility] [place] [facility] [address] [id number] [place] [address] 18 Dec, 2012 [facility] [place] [facility] [address] [id number] [place] [address] 13 Dec, 2012 [facility] [place] [facility] [address] [id number], [place] [address] 13 Dec, 2012 [facility] [place] [facility] [address] [id number] [place] [address] 06 Dec, 2012 [facility] [place] [facility] [address] [id number] [place] [address] Nov, [facility] [place] [facility] [address] [id number] [place] [address] Nov, [facility] [place] [facility] [address] [id number] [place] [address] Oct, [facility] [address] [id number] [place] [address] August, [facility] [address] [id number] [place] [address] August, [facility] [address] [id number] [place] [address] August, [facility] [address] [id number] [place] [address] Jul, [facility] [address] [id number] [place] [address] Jul, [facility] [address] [id number] [place] [address] Jul, [facility] [address] [id number] [place] [address] Jun, [facility] [address] [id number] [place] [address] Jun, [facility] [address] [id number] [place] [address] Jun, [facility] [address] [id number] [place] [address] Jun, [facility] [address] [id number] [place] [address] 18 Jun, 2012 [facility] [place] [facility] [address] [id number] [place] [address] 15 Jun, 2012 [facility] [place] [facility] [address] [id number] [place] [address] Jun, [facility] [place] [facility] [address] [id number] [place] [address] 18 May, 2012 [facility] [address] [id number] [place] [address] May, [facility] [place] [facility] [address] [id number] [place] [address] May, [facility] [place] [facility] [address] [id number] [place] [address] May, [facility] [place] [facility] [address] [id number] [place] [address] Apr, [facility] [place] [facility] [address] [id number] [place] [address] Apr, [facility] [address] [id number] [place] [address] Apr, [facility] [place] [facility] [address] [id number] [place] [address] Mar, [facility] [address] [id number] [place] [address] Mar, [facility] [address] [id number] [place] [address] Mar, [facility] [place] [facility] [address] [id number] [place] [address] Mar, [facility] [place] [facility] [address] [id number] [place] [address] Mar, [facility] [place] [facility] [address] [id number] [place] [address] Mar, [facility] [place] [facility] [address] [id number] [place] [address] Mar, [facility] [place] [facility] [address] [id number] [place] [address] Mar, [facility] [place] [facility] [address] [id number] [place] [address] Feb, [facility] [place] [facility] [address] [id number] [place] [address] Feb, [facility] [place] [facility] [address] [id number], [place] [address] Feb, [facility] [place] [facility] [address] [id number] [place] [address] Jan, [facility] [place] [facility] [address] [id number] [place] [address] Jan, [facility] [place] [facility] [address] [id number] [place] [address] Jan, [facility] [place] [facility] [address] [id number] [place] [address] Jan, [facility] [place] [facility] [address] [id number] [place] [address] Jan, [facility] [place] [facility] [address] [id number] [place] [address] Jan, [facility] [place] [facility] [address] [id number] [place] [address] Jan, [facility] [place] [facility] [address] [id number] [place] [address] Dec, [facility] [place] [facility] [address] [id number] [place] [address] 24 Dec, 2011 [facility] [place] [facility] [address] [id number] [place] [address] Dec, [facility] [place] [facility] [address] [id number] [place] [address] Nov, [facility] [place] [facility] [address] [id number] [place] [address] Nov, [facility] [place] [facility] [address] [id number] [place] [address] Nov, [facility] [place] [facility] [address] [id number] [place] [address] Nov, [facility] [place] [facility] [address] [id number] [place] [address] Oct, [facility] [place] [facility] [address] [id number] [place] [address] 05 Oct, 2011 [facility] [place] [facility] [address] [id number] [place] [address] Oct, [facility] [place] [facility] [address] [id number] [place] [address] Sep, [facility] [place] [facility] [address] [id number] [place] [address] 16 Sep, 2011 [facility] [place] [facility] [address] [id number] [place] [address] Sep, [facility] [place] [facility] [address] [id number] [place] [address] Sep, [facility] [place] [facility] [address] [id number] [place] [address] Sep, [facility] [place] [facility] [address] [id number] [place] [address] Sep, [facility] [place] [facility] [address] [id number] [place] [address] August, [facility] [place] [facility] [address] [id number] [place] [address] Jul, [facility] [place] [facility] [address] [id number] [place] [address] Jul, [facility] [place] [facility] [address] [id number] [place] [address] Jul, [facility] [place] [facility] [address] [id number] [place] [address] Jul, [facility] [place] [facility] [address] [id number] [place] [address] Jul, [facility] [place] [facility] [address] [id number] [place] [address] Jun, [facility] [place] [facility] [address] [id number] [place] [address] Jun, [facility] [address] [id number] [place] [address] 15 Jun, 2011 [facility] [place] [facility] [address] [id number] [place] [address] 15 Jun, 2011 [facility] [place] [facility] [address] [id number] [place] [address] Jun, [facility] [place] [facility] [address] [id number] [place] [address] May, [facility] [place] [facility] [address] [id number] [place] [address] May, [facility] [place] [facility] [address] [id number] [place] [address] May, [facility] [place] [facility] [address] [id number] [place] [address] May, [facility] [place] [facility] [address] [id number] [place] [address] May, [facility] [place] [facility] [address] [id number] [place] [address] May, [facility] [place] [facility] [address] [id number] [place] [address] May, [facility] [place] [facility] [address] [id number] [place] [address] Apr, [facility] [place] [facility] [address] [id number] [place] [address] Mar, [facility] [place] [facility] [address] [id number] [place] [address] Mar, [facility] [place] [facility] [address] [id number] [place] [address] Mar, [facility] [place] [facility] [address] [id number] [place] [address] Mar, [facility] [place] [facility] [address] [id number] [place] [address] 08 Mar, 2011 [facility] [address] [id number] [place] [address] 23 Feb, 2011 [facility] [place] [facility] [address] [id number] [place] [address] 14 Feb, 2011 [facility] [address] [id number] [place] [address] 14 Feb, 2011 [facility] [place] [facility] [address] [id number] [place] [address] 14 Feb, 2011 [facility] [address] [id number] [place] [address] 07 Feb, 2011 [facility] [place] [facility] [address] [id number] [place] [address] Feb, [facility] [place] [facility] [address] [id number] [place] [address] Feb, [facility] [address] [id number] [place] [address] 10 Jan, 2011 [facility] [place] [facility] [address] [id number] [place] [address] 12 Dec, 2010 [facility] [address] [id number] [place] [address] Oct, [facility] [place] [facility] [address] [id number] [place] [address] Jun, [facility] [place] [facility] [address] [id number] [place] [address] Mar, [facility] [place] [facility] [address] [id number] [place] [address] Mar, [facility] [place] [facility] [address] [id number] [place] [address] 16 Mar, 2010 [facility] [place] [facility] [address] [id number] [place] [address] 16 Mar, 2010 [facility] [address] [id number] [place] [address] 15 Mar, 2010 [facility] [place] [facility] [address] [id number] [place] [address] 10 Mar, 2010 [facility] [place] [facility] [address] [id number] [place] [address] 10 Mar, 2010 [facility] [place] [facility] [address] [id number] [place] [address] 05 Mar, 2010 [facility] [place] [facility] [address] [id number] [place] [address] 03 Mar, 2010 [facility] [place] [facility] [address] [id number] [place] [address] 02 Mar, 2010 [facility] [place] [facility] [address] [id number] [place] [address] Jan, [facility] [place] [facility] [address] [id number] [place] [address] Jan, [facility] [place] [facility] [address] [id number] [place] [address] Jan, [facility] [place] [facility] [address] [id number] [place] [address] Nov, [facility] [place] [facility] [address] [id number] [place] [address] Oct, [facility] [place] [facility] [address] [id number], [place] [address] 31 Mar, 2009 [facility] [place] [facility] [address] [id number] [place] [address] 20 Mar, 2009 [facility] [place] [facility] [address] [id number] [place] [address] 17 Mar, 2009 [facility] [place] [facility] [address] [id number] [place] [address] 17 Mar, 2009 [facility] [place] [facility] [address] [id number], [place] [address] Dec, [facility] [address] [id number], [place] [address] August, [facility] [address] [id number], [place] [address] August, [facility] [address] [id number], [place] [address] Jul, [facility] [address] [id number], [place] [address] Jan, [facility] [address] [id number], [place] [address] Jan, IMMUNIZATIONS No Known Immunizations SOCIAL HISTORY Never Assessed REASON FOR VISIT Mammogram Chart Update PLAN OF CARE VITAL SIGNS MEDICATIONS Unknown [...]
--- OUTSIDE RECORDS SUMMARY | 2018-09-22 02:56 | XMS REPORT ---
Author Author TAMI PALACIOS Organization [facility] Address [address] [place] [address] Care Team Providers Care Tso Name Role Phone TAMI PALACIOS Unavailable PROBLEMS Type Condition ICD9-CM Code [id number] Code Onset Dates Condition Status SNOMED Code Problem Chronic gastritis without bleeding, unspecified gastritis type K29.50 Active 3525707 Problem Vitamin D deficiency E55.9 Active 86342462 Problem Osteoporosis M81.0 Active 06721127 Problem Unspecified abdominal pain R10.9 Active 255033268 Problem Fibromyalgia M79.7 Active 23159822 Problem Chronic pain syndrome G89.4 Active 336852469 Problem Trigger point with back pain M54.9 Active 549882182 Problem Chronic tension-type headache, not intractable G44.229 Active 377960776 Problem RUQ abdominal pain R10.11 Active 137343211 Problem Pancytopenia D61.818 Active 056721663 Problem Right sided sciatica M54.31 Active 05280342 Problem Chronic prescription opiate use Z79.891 Active 244260905 Problem Drug induced constipation K59.03 Active 710850331515930 Problem Leukopenia, unspecified type D72.819 Active 66748402 Problem Atrial fibrillation, unspecified type I48.91 Active 72470213 Problem Allergic rhinitis, unspecified allergic rhinitis type J30.9 Active 71294844 Problem Chronic obstructive pulmonary disease, unspecified COPD type J44.9 Active 47249389 Problem Hypothyroidism, unspecified hypothyroidism type E03.9 Active 01953314 Problem Other constipation K59.09 Active 694539673 Problem Porokeratosis Q82.8 Active 121818713 Problem 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 Active 287766422 Problem Allergy to intravenous contrast Z91.041 Active 916104554 Problem Vaginal atrophy N95.2 Active 671713447 Problem Major depression, recurrent F33.9 Active 42868282 Problem History of hepatitis C Z86.19 Active 24407117774489 Problem Hot flashes N95.1 Active 193648104 Problem Plantar fasciitis M72.2 Active 981494432 Problem Polyneuropathy associated with underlying disease G63 Active 612688994 Problem Primary insomnia F51.01 Active 2276021 Problem Low back pain M54.5 Active 174823791 ALLERGIES No Information ENCOUNTERS Encounter Location Date Diagnosis [place] [id number] [place] [address] Nov, [place] [address] [address] Nov, [place] [address] [address] Oct, Hypothyroidism, unspecified hypothyroidism type E03.9 and Atrial fibrillation, unspecified type I48.91 [place] [address] [address] Oct, Fibromyalgia M79.7 ; Chronic pain syndrome G89.4 ; Hypothyroidism, unspecified hypothyroidism type E03.9 ; Overweight (BMI 25.0-29.9) E66.3 and Atrial fibrillation, unspecified type I48.91 [place] [id number] [place] [address] Oct, Chronic pain syndrome G89.4 [place] [id number] [place] [address] Sep, Chronic pain syndrome G89.4 [place] [id number] [place] [address] August, Somatic dysfunction of lumbar region M99.03 and Somatic dysfunction of pelvis region M99.05 [place] [id number] [place] [address] August, Chronic pain syndrome G89.4 [place] [id number] [place] [address] Jul, Trochanteric bursitis of left hip M70.62 and Trochanteric bursitis, right hip M70.61 [place] [address] [address] Jul, [facility] [id number] [place] [address] Jul, Chronic pain syndrome G89.4 [facility] [id number] [place] [address] Jul, Hypothyroidism, unspecified hypothyroidism type E03.9 [facility] [id number] [place] [address] Jul, Hypothyroidism, unspecified hypothyroidism type E03.9 [place] [id number] [place] [address] Jul, Chronic tension-type headache, not intractable G44.229 ; Atrial fibrillation, unspecified type I48.91 ; Chronic pain syndrome G89.4 ; Hypothyroidism, unspecified hypothyroidism type E03.9 ; Pancytopenia D61.818 ; History of hepatitis C Z86.19 ; Vaginal atrophy N95.2 ; RUQ abdominal pain R10.11 ; Chronic prescription opiate use Z79.891 ; Osteoporosis M81.0 and Screening for breast cancer Z12.31 [facility] [id number] [place] [address] Jun, [facility] [address] [place] [address] May, [facility] [address] [place] [address] May, [facility] [id number] [place] [address] May, [facility] [id number] [place] [address] Apr, [facility] [id number] [place] [address] Apr, Hypothyroidism, unspecified hypothyroidism type E03.9 [facility] [id number] [place] [address] Apr, Hypothyroidism, unspecified hypothyroidism type E03.9 and Leukopenia, unspecified type D72.819 [place] [id number] [place] [address] Mar, [place] [id number] [place] [address] Mar, Leukopenia, unspecified type D72.819 [place] [id number] [place] [address] Mar, Hypothyroidism, unspecified hypothyroidism type E03.9 and Low hemoglobin D64.9 [place] [id number] [place] [address] Mar, Hypothyroidism, unspecified hypothyroidism type E03.9 [place] [id number] [place] [address] Mar, Osteoporosis M81.0 ; Low hemoglobin D64.9 and Hypothyroidism, unspecified hypothyroidism type E03.9 [place] [id number] [place] [address] Mar, Hypothyroidism, unspecified hypothyroidism type E03.9 ; Bilirubin in urine R82.2 and Pancytopenia D61.818 [place] [address] [place] [address] Feb, [facility] [place] [facility] [place] [id number] [place] [address] 18 Feb, 2017 Cough R05 and Bronchitis J40 [facility] [place] [id number] [place] [address] 14 Feb, 2017 Other viral agents as the cause of diseases classified elsewhere B97.89 and Acute upper respiratory infection, unspecified J06.9 [place] [id number] [place] [address] 08 Feb, 2017 Fibromyalgia M79.7 ; Chronic pain syndrome G89.4 ; Hypothyroidism, unspecified hypothyroidism type E03.9 ; Primary insomnia F51.01 ; Osteoporosis M81.0 ; Vision abnormalities H53.9 ; Pancytopenia D61.818 ; BMI 28.0-28.9,adult Z68.28 and Encounter for immunization Z23 [place] [id number] [place] [address] Feb, Neuroma D36.10 and Capsulitis of right foot M77.51 [place] [address] [address] Feb, [place] [address] [address] Feb, Hypothyroidism, unspecified hypothyroidism type E03.9 [place] [address] [address] Jan, [place] [address] [address] Jan, Atrial fibrillation, unspecified type I48.91 [place] [id number] [place] [address] Jan, [address] [address] Jan, Fibromyalgia M79.7 ; Atrial fibrillation, unspecified type I48.91 ; Pain of left hand M79.642 ; Pain in right hand M79.641 ; Chronic prescription opiate use Z79.891 ; Chronic pain syndrome G89.4 ; Elevated fasting glucose R73.01 and Hypothyroidism, unspecified hypothyroidism type E03.9 [place] [id number] [place] [address] Jan, [address] [address] Dec, Trochanteric bursitis of both hips M70.[address] [address] Dec, [facility] [id number] [place] [address] Dec, [facility] [address] [address] Nov, [facility] [id number] [place] [address] Nov, Unilateral headache R51 [facility] [address] [address] Nov, [facility] [address] [address] Oct, Unilateral headache R51 ; 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 and Allergy to intravenous contrast Z91.041 [place] [address] [address] Oct, [place] [address] [address] Oct, [facility] [address] [address] Sep, Hypothyroidism, unspecified hypothyroidism type E03.9 [place] [id number] [place] [address] Sep, Hypothyroidism, unspecified hypothyroidism type E03.9 and Bilirubin in urine R82.2 [place] [id number] [place] [address] Sep, Trochanteric bursitis of both hips M70.61 [place] [id number] [place] [address] Sep, Hypothyroidism, unspecified hypothyroidism type E03.9 ; Dysuria R30.0 ; Chronic tension-type headache, not intractable G44.229 and Drug induced constipation K59.03 [facility] [id number] [place] [address] Sep, [place] [id number] [place] [address] Sep, [facility] [id number] [place] [address] August, [facility] [id number] [place] [address] Jul, [facility] [address] [address] Jul, Trochanteric bursitis of right hip M70.61 [facility] [id number] [place] [address] Jul, Hypothyroidism, unspecified hypothyroidism type E03.9 [facility] [id number] [place] [address] Jul, Fibromyalgia M79.7 ; Chronic pain syndrome G89.4 ; Hypothyroidism, unspecified hypothyroidism type E03.9 and Other constipation K59.09 [facility] [id number] [place] [address] Jun, Swollen tonsil J35.1 and Strep throat J02.0 [facility] [id number] [place] [address] Jun, [facility] [id number] [place] [address] Jun, Acute maxillary sinusitis J01.00 [facility] [id number] [place] [address] Jun, Hypothyroidism, unspecified hypothyroidism type E03.9 [facility] [id number] [place] [address] Jun, Chronic pain syndrome G89.4 ; Fibromyalgia M79.7 ; Hypothyroidism, unspecified hypothyroidism type E03.9 and Chronic prescription opiate use Z79.891 [facility] [id number] [place] [address] May, [place] [id number] [place] [address] Apr, Hypothyroidism, unspecified hypothyroidism type E03.9 [place] [id number] [place] [address] Apr, [place] [id number] [place] [address] Apr, Lipid screening Z13.220 and Hypothyroidism, unspecified hypothyroidism type E03.9 [place] [address] [address] Apr, [place] [address] [address] Mar, Trochanteric bursitis of both hips M70.61 [place] [address] [address] Mar, [place] [address] [address] Mar, Plantar fasciitis M72.2 and Porokeratosis Q82.8 [place] [address] [address] Feb, Lipid screening Z13.220 ; Vitamin D deficiency E55.9 and Hypothyroidism, unspecified hypothyroidism type E03.9 [place] [id number] [place] [address] Feb, Chronic pain syndrome G89.4 ; Hypothyroidism, unspecified hypothyroidism type E03.9 ; Pancytopenia D61.818 ; Vaginal atrophy N95.2 ; Chronic gastritis without bleeding, unspecified gastritis type K29.50 ; Vitamin D deficiency E55.9 ; Chronic prescription opiate use Z79.891 ; Adverse effect of other opioids, initial encounter T40.2X5A ; Drug induced constipation K59.03 ; Lipid screening Z13.220 and Encounter for immunization Z23 [place] [id number] [place] [address] Feb, [facility] [address] [address] Feb, Ingrown toenail L60.0 [facility] [id number] [place] [address] Jan, [facility] [id number] [place] [address] Jan, Trochanteric bursitis of both hips M70.61 [facility] [id number] [place] [address] Jan, [facility] [id number] [place] [address] Jan, [facility] [id number] [place] [address] Jan, [facility] [id number] [place] [address] Jan, Right sided sciatica M54.31 [facility] [id number] [place] [address] 23 Dec, 2015 Onychomycosis B35.1 [facility] [address] [place] [address] 22 Dec, 2015 [facility] [address] [address] Dec, [facility] [address], [place] [address] 09 Dec, 2015 [facility] [id number] [place] [address] Dec, Osteoarthritis of right hip, unspecified osteoarthritis type M16.11 and Bursitis of right hip M70.71 [facility] [id number] [address] Nov, [facility] [id number] [place] [address] 18 Nov, 2015 [facility] [id number] [place] [address] 17 Nov, 2015 [facility] [id number] [place] [address] 16 Nov, 2015 Hypothyroidism, unspecified hypothyroidism type E03.9 ; Vitamin D deficiency E55.9 and History of hepatitis C Z86.19 [facility] [id number] [place] [address] Nov, Right upper quadrant pain R10.11 ; History of hepatitis C Z86.19 and Low back pain M54.5 [place] [id number] [place] [address] Oct, Trochanteric bursitis, right hip M70.61 [place] [id number] [place] [address] Oct, [facility] [id number] [place] [address] Oct, [facility] [id number] [place] [address] Oct, Trochanteric bursitis of both hips M70.61 and Right sided sciatica M54.31 [place] [id number] [place] [address] Oct, Trochanteric bursitis of both hips M70.61 [facility] [id number] [place] [address] 14 Oct, 2015 RUQ abdominal pain R10.11 [place] [id number] [place] [address] 13 Oct, 2015 Sciatic leg pain M54.30 [facility] [id number] [place] [address] 11 Oct, 2015 RUQ abdominal pain R10.11 [facility] [id number] [place] [address] Oct, RUQ abdominal pain R10.11 ; History of hepatitis C Z86.19 and Trigger point with back pain M54.9 [place] [id number] [place] [address] Sep, [place] [id number] [place] [address] Sep, Right sided sciatica M54.31 [place] [address] [address] Sep, Hypothyroidism, unspecified hypothyroidism type E03.9 and Vitamin D deficiency E55.9 [place] [address] [address] Sep, Plantar fasciitis M72.2 and Porokeratosis Q82.8 [place] [address] [address] Sep, Hypothyroidism, unspecified hypothyroidism type E03.9 ; Chronic pain syndrome G89.4 ; Polyneuropathy associated with underlying disease G63 and Vitamin D deficiency E55.9 [place] [address] [address] August, [place] [id number] [place] [address] Jul, Plantar fasciitis M72.2 [place] [id number] [place] [address] Jul, Trochanteric bursitis, right hip M70.61 [place] [id number] [place] [address] Jul, Hypothyroidism, unspecified hypothyroidism type E03.9 [place] [id number] [place] [address] Jul, Hypothyroidism, unspecified hypothyroidism type E03.9 ; Chronic pain syndrome G89.4 and Polyneuropathy associated with underlying disease G63 [place] [id number] [place] [address] 10 Jun, 2015 Trochanteric bursitis of both hips M70.61 [place] [id number] [place] [address] 08 Jun, 2015 Vitamin D deficiency E55.9 ; Osteoporosis M81.0 ; Low back pain M54.5 and Plantar fasciitis M72.2 [place] [address] [address] May, Vitamin D deficiency E55.9 and Hypothyroidism, unspecified hypothyroidism type E03.9 [place] [address] [address] May, Acute maxillary sinusitis J01.00 [place] [address] [address] 18 May, 2015 Osteoporosis M81.0 and Hypothyroidism, unspecified hypothyroidism type E03.9 [place] [id number] [place] [address] 16 May, 2015 Osteoporosis M81.0 [place] [address] [address] 15 May, 2015 [place] [id number] [place] [address] Apr, [place] [id number] [place] [address] Apr, Trochanteric bursitis of both hips M70.61 [place] [id number] [place] [address] Apr, Hypothyroidism, unspecified hypothyroidism type E03.9 [place] [id number] [place] [address] Apr, Chronic pain syndrome G89.4 ; Bilateral low back pain with sciatica, sciatica laterality unspecified M54.40 ; Pain in right hip M25.551 ; Pain in left hip M25.552 ; Chronic prescription opiate use Z79.899 ; Primary insomnia F51.01 and Hypothyroidism, unspecified hypothyroidism type E03.9 [facility] [id number] [place] [address] Mar, [facility] [id number] [place] [address] Feb, [facility] [address] [address] Feb, Chronic pain syndrome G89.4 and Major depression F32.9 [place] [address] [address] Feb, Fatigue R53.83 [place] [address] [address] Feb, History of fracture Z87.81 [place] [address] [address] Feb, Major depression, recurrent F33.9 and Generalized anxiety disorder F41.1 [place] [id number] [place] [address] Feb, [place] [id number] [place] [address] Jan, Hypothyroidism, unspecified hypothyroidism type E03.9 [facility] [id number] [place] [address] Jan, Abdominal pain R10.9 and Hypothyroidism, unspecified hypothyroidism type E03.9 [facility] [id number] [place] [address] Jan, Abdominal pain R10.9 [facility] [id number] [place] [address] Jan, Hypothyroidism, unspecified hypothyroidism type E03.9 [facility] [id number] [place] [address] Jan, [place] [id number] [place] [address] Jan, 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.419 and Hypothyroidism, unspecified hypothyroidism type E03.9 [place] [id number] [place] [address] Jan, 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.419 ; Abdominal pain R10.9 ; Dyspareunia N94.1 ; Encounter for immunization Z23 ; History of fracture Z87.81 ; Fatigue R53.83 ; Throat fullness R68.89 ; Bruises easily R23.8 ; Hot flashes N95.1 ; Depression F32.9 and Vaginal atrophy N95.2 [place] [id number] [place] [address] Jan, Hypothyroidism, unspecified hypothyroidism type E03.9 [place] [id number] [place] [address] Jan, Unspecified abdominal pain R10.9 ; Chronic obstructive pulmonary disease, unspecified COPD type J44.9 ; Allergic rhinitis, unspecified allergic rhinitis type J30.9 ; Chronic pain syndrome G89.4 ; Hypothyroidism, unspecified hypothyroidism type E03.9 ; Chest pain, unspecified chest pain type R07.9 and Plantar fasciitis M72.2 [place] [id number] [place] [address] Jan, Trochanteric bursitis of both hips M70.61 [place] [id number] [place] [address] Dec, [place] [address] [address] Nov, [place] [id number] [place] [address] Nov, [place] [address] [address] Nov, Constipation 564.00 [facility] [address] [address] Oct, Chronic pain 338.29 and Hypothyroidism 244.9 [facility] [id number], [place] [address] Oct, [facility] [id number] [place] [address] Sep, [facility] [id number] [place] [address] Sep, [facility] [id number] [place] [address] Sep, [facility] [id number] [place] [address] Sep, [facility] [id number] [place] [address] Sep, [facility] [id number], [place] [address] Sep, [facility] [id number] [place] [address] Sep, COPD exacerbation 491.21 ; Chronic pain 338.29 ; Hypothyroidism 244.9 and Pancytopenia 284.19 [facility] [id number] [address] August, [facility] [id number], [place] [address] Jul, [facility] [id number], [place] [address] Jul, [facility] [id number] [address] Jun, [facility] [id number], [place] [address] Jun, [facility] [place] [facility] [address] [id number] [place] [address] Jun, [facility] [place] [facility] [address] [id number] [place] [address] Jun, [facility] [place] [facility] [address] [id number] [place] [address] Jun, [facility] [place] [facility] [address] [id number] [place] [address] May, [facility] [place] [facility] [address] [id number] [place] [address] May, 2014 [facility] [place] [facility] [address] [id number] [place] [address] May, 2014 [facility] [place] [facility] [address] [id number] [place] [address] May, 2014 [facility] [place] [facility] [address] [id number] [place] [address] May, 2014 [facility] [place] [facility] [address] [id number] [place] [address] May, 2014 [facility] [place] [facility] [address] [id number] [place] [address] May, 2014 [facility] [place] [facility] [address] [id number] [place] [address] May, 2014 [facility] [place] [facility] [address] [id number], [place] [address] May, 2014 [facility] [place] [facility] [address] [id number] [place] [address] May, 2014 [facility] [place] [facility] [address] [id number] [place] [address] May, 2014 [facility] [place] [facility] [address] [id number] [place] [address] May, 2014 [facility] [place] [facility] [address] [id number] [place] [address] May, [facility] [address] [id number] [place] [address] Apr, [facility] [place] [facility] [address] [id number] [place] [address] Apr, [facility] [address] [id number] [place] [address] Apr, [facility] [place] [facility] [address] [id number] [place] [address] Apr, [facility] [place] [facility] [address] [id number] [place] [address] Apr, [facility] [place] [facility] [address] [id number] [place] [address] Apr, [facility] [place] [facility] [address] [id number] [place] [address] Apr, [facility] [address] [id number] [place] [address] Mar, [facility] [place] [facility] [address] [id number] [place] [address] Mar, [facility] [place] [facility] [address] [id number] [place] [address] Mar, [facility] [place] [facility] [address] [id number] [place] [address] Mar, [facility] [place] [facility] [address] [id number] [place] [address] Mar, [facility] [place] [facility] [address] [id number] [place] [address] Mar, [facility] [place] [facility] [address] [id number] [place] [address] Feb, [facility] [place] [facility] [address] [id number] [place] [address] Feb, [facility] [place] [facility] [address] [id number] [place] [address] Feb, [facility] [place] [facility] [address] [id number] [place] [address] Feb, [facility] [place] [facility] [address] [id number] [place] [address] Feb, [facility] [place] [facility] [address] [id number] [place] [address] Feb, [facility] [place] [facility] [address] [id number] [place] [address] Jan, [facility] [place] [facility] [address] [id number] [place] [address] Jan, [facility] [place] [facility] [address] [id number] [place] [address] Jan, [facility] [place] [facility] [address] [id number] [place] [address] Jan, [facility] [place] [facility] [address] [id number] [place] [address] Jan, [facility] [place] [facility] [address] [id number], [place] [address] Jan, [facility] [place] [facility] [address] [id number], [place] [address] Jan, [facility] [place] [facility] [address] [id number], [place] [address] Jan, [facility] [place] [facility] [address] [id number] [place] [address] Dec, [facility] [place] [facility] [address] [id number] [place] [address] Dec, [facility] [place] [facility] [address] [id number] [place] [address] Dec, [facility] [place] [facility] [address] [id number] [place] [address] 23 Dec, 2013 [facility] [place] [facility] [address] [id number] [place] [address] 13 Dec, 2013 [facility] [place] [facility] [address] [id number] [place] [address] Dec, [facility] [place] [facility] [address] [id number] [place] [address] Dec, [facility] [place] [facility] [address] [id number] [place] [address] Nov, [facility] [place] [facility] [address] [id number] [place] [address] Nov, [facility] [place] [facility] [address] [id number] [place] [address] Oct, [facility] [place] [facility] [address] [id number] [place] [address] Oct, [facility] [place] [facility] [address] [id number] [place] [address] Oct, [facility] [place] [facility] [address] [id number] [place] [address] Oct, [facility] [place] [facility] [address] [id number] [place] [address] Sep, [facility] [place] [facility] [address] [id number] [place] [address] Sep, [facility] [place] [facility] [address] [id number] [place] [address] Sep, [facility] [place] [facility] [address] [id number] [place] [address] Sep, [facility] [place] [facility] [address] [id number] [place] [address] Sep, [facility] [place] [facility] [address] [id number] [place] [address] Sep, [facility] [place] [facility] [address] [id number] [place] [address] Sep, [facility] [place] [facility] [address] [id number] [place] [address] Sep, [facility] [place] [facility] [address] [id number] [place] [address] August, [facility] [place] [facility] [address] [id number] [place] [address] August, [facility] [place] [facility] [address] [id number] [place] [address] August, [facility] [place] [facility] [address] [id number] [place] [address] August, [facility] [place] [facility] [address] [id number] [place] [address] Jul, [facility] [place] [facility] [address] [id number] [place] [address] Jul, [facility] [place] [facility] [address] [id number] [place] [address] Jul, [facility] [place] [facility] [address] [id number] [place] [address] Jul, [facility] [place] [facility] [address] [id number] [place] [address] Jul, [facility] [place] [facility] [address] [id number] [place] [address] 16 Jul, 2013 [facility] [place] [facility] [address] [id number] [place] [address] 15 Jul, 2013 [facility] [place] [facility] [address] [id number] [place] [address] 15 Jul, 2013 [facility] [place] [facility] [address] [id number] [place] [address] 18 Jun, 2013 [facility] [place] [facility] [address] [id number] [place] [address] 18 Jun, 2013 [facility] [place] [facility] [address] [id number] [place] [address] Jun, [facility] [place] [facility] [address] [id number] [place] [address] Jun, [facility] [place] [facility] [address] [id number] [place] [address] Jun, [facility] [place] [facility] [address] [id number] [place] [address] Jun, [facility] [place] [facility] [address] [id number] [place] [address] Jun, [facility] [place] [facility] [address] [id number] [place] [address] Jun, [facility] [place] [facility] [address] [id number] [place] [address] May, [facility] [place] [facility] [address] [id number] [place] [address] May, [facility] [place] [facility] [address] [id number] [place] [address] Apr, [facility] [place] [facility] [address] [id number] [place] [address] Apr, [facility] [place] [facility] [address] [id number] [place] [address] Mar, [facility] [place] [facility] [address] [id number] [place] [address] 24 Mar, 2013 [facility] [place] [facility] [address] [id number] [place] [address] Mar, [facility] [place] [facility] [address] [id number] [place] [address] Mar, [facility] [place] [facility] [address] [id number] [place] [address] Mar, [facility] [place] [facility] [address] [id number] [place] [address] Mar, [facility] [address] [id number] [place] [address] Mar, [facility] [address] [id number] [place] [address] Feb, [facility] [address] [id number] [place] [address] Feb, [facility] [address] [id number] [place] [address] Feb, [facility] [address] [id number] [place] [address] Feb, [facility] [address] [id number] [place] [address] Feb, [facility] [address] [id number] [place] [address] Feb, [facility] [address] [id number] [place] [address] 26 Dec, 2012 [facility] [address] [id number] [place] [address] 18 Dec, 2012 [facility] [address] [id number] [place] [address] 13 Dec, 2012 [facility] [address] [id number] [place] [address] 13 Dec, 2012 [facility] [address] [id number] [place] [address] 06 Dec, 2012 [facility] [place] [facility] [address] [id number] [place] [address] Nov, [facility] [place] [facility] [address] [id number] [place] [address] Nov, [facility] [address] [id number] [place] [address] Oct, [facility] [address] [id number] [place] [address] August, [facility] [place] [facility] [address] [id number] [place] [address] August, [facility] [address] [id number] [place] [address] August, [facility] [place] [facility] [address] [id number] [place] [address] Jul, [facility] [address] [id number] [place] [address] Jul, [facility] [place] [facility] [address] [id number] [place] [address] Jul, [facility] [address] [id number] [place] [address] Jun, [facility] [address] [id number] [place] [address] Jun, [facility] [place] [facility] [address] [id number] [place] [address] Jun, [facility] [place] [facility] [address] [id number] [place] [address] Jun, [facility] [place] [facility] [address] [id number] [place] [address] Jun, [facility] [place] [facility] [address] [id number], [place] [address] 15 Jun, 2012 [facility] [place] [facility] [address] [id number] [place] [address] Jun, [facility] [place] [facility] [address] [id number] [place] [address] May, [facility] [place] [facility] [address] [id number] [place] [address] May, [facility] [place] [facility] [address] [id number] [place] [address] 06 May, 2012 [facility] [place] [facility] [address] [id number] [place] [address] 05 May, 2012 [facility] [place] [facility] [address] [id number] [place] [address] Apr, [facility] [address] [id number] [place] [address] Apr, [facility] [place] [facility] [address] [id number] [place] [address] Apr, [facility] [place] [facility] [address] [id number] [place] [address] Mar, [facility] [place] [facility] [address] [id number] [place] [address] Mar, [facility] [address] [id number] [place] [address] Mar, [facility] [place] [facility] [address] [id number] [place] [address] Mar, [facility] [place] [facility] [address] [id number] [place] [address] Mar, [facility] [place] [facility] [address] [facility] [id number] [place] [address] Mar, [facility] [place] [facility] [address] [id number] [place] [address] Mar, [facility] [place] [facility] [address] [id number] [place] [address] Mar, [facility] [place] [facility] [address] [id number] [place] [address] Feb, [facility] [place] [facility] [address] [id number] [place] [address] Feb, [facility] [place] [facility] [address] [id number] [place] [address] Feb, [facility] [place] [facility] [address] [id number] [place] [address] Jan, [facility] [place] [facility] [address] [id number] [place] [address] Jan, [facility] [place] [facility] [address] [id number] [place] [address] Jan, [facility] [place] [facility] [address] [id number] [place] [address], [place] [address] Jan, [facility] [place] [facility] [address] [id number] [place] [address] Jan, [facility] [place] [facility] [address] [id number] [place] [address] Jan, [facility] [place] [facility] [address] [id number] [place] [address] Jan, [facility] [place] [facility] [address] [id number] [place] [address] Dec, [facility] [place] [facility] [address] [id number] [place] [address] Dec, [facility] [place] [facility] [address] [id number] [place] [address] Dec, [facility] [place] [facility] [address] [id number] [place] [address] Nov, [facility] [place] [facility] [address] [id number] [place] [address] Nov, [facility] [place] [facility] [address] [id number] [place] [address] Nov, [facility] [place] [facility] [address] [id number] [place] [address] Nov, [facility] [place] [facility] [address] [id number] [place] [address] Oct, [facility] [place] [facility] [address] [id number] [place] [address] 05 Oct, 2011 [facility] [place] [facility] [address] [id number] [place] [address] Oct, [facility] [place] [facility] [address] [id number] [place] [address] Sep, [facility] [place] [facility] [address] [id number] [place] [address] Sep, [facility] [place] [facility] [address] [id number] [place] [address] Sep, [facility] [place] [facility] [address] [id number] [place] [address] Sep, [facility] [place] [facility] [address] [id number] [place] [address] Sep, [facility] [place] [facility] [address] [id number] [place] [address] Sep, [facility] [place] [facility] [address] [id number] [place] [address] August, [facility] [place] [facility] [address] [id number] [place] [address] Jul, [facility] [place] [facility] [address] [id number] [place] [address] Jul, [facility] [place] [facility] [address] [id number] [place] [address] Jul, [facility] [place] [facility] [address] [id number] [place] [address] Jul, [facility] [place] [facility] [address] [id number] [place] [address] Jul, [facility] [place] [facility] [address] [id number] [place] [address] Jun, [facility] [place] [facility] [address] [id number] [place] [address] Jun, [facility] [place] [facility] [address] [id number] [place] [address] 15 Jun, 2011 [facility] [address] [id number] [place] [address] 15 Jun, 2011 [facility] [place] [facility] [address] [id number] [place] [address] 09 Jun, 2011 [facility] [address] [id number] [place] [address] May, [facility] [place] [facility] [address] [id number] [place] [address] May, [facility] [place] [facility] [address] [id number] [place] [address] May, [facility] [place] [facility] [address] [id number] [place] [address] May, [facility] [place] [facility] [address] [id number] [place] [address] May, [facility] [address] [id number] [place] [address] May, [facility] [address] [facility] [id number] [place] [address] May, [facility] [address] [id number] [place] [address] Apr, [facility] [address] [id number] [place] [address] Mar, [facility] [place] [facility] [address] [id number] [place] [address] Mar, [facility] [place] [facility] [address] [id number] [place] [address] Mar, [facility] [place] [facility] [address] [id number] [place] [address] Mar, [facility] [place] [facility] [address] [id number] [place] [address] 08 Mar, 2011 [facility] [place] [facility] [address] [id number] [place] [address] 23 Feb, 2011 [facility] [place] [facility] [address] [id number] [place] [address] Feb, [facility] [place] [facility] [address] [id number] [place] [address] 14 Feb, 2011 [facility] [place] [facility] [address] [id number] [place] [address] 14 Feb, 2011 [facility] [place] [facility] [address] [id number] [place] [address] Feb, [facility] [place] [facility] [address] [id number] [place] [address] Feb, [facility] [place] [facility] [address] [id number] [place] [address] Feb, [facility] [place] [facility] [address] [id number] [place] [address] 10 Jan, 2011 [facility] [place] [facility] [address] [id number] [place] [address] Dec, [facility] [place] [facility] [address] [id number] [place] [address] Oct, [facility] [place] [facility] [address] [id number], [place] [address] Jun, [facility] [place] [facility] [address] [id number] [place] [address] Mar, [facility] [place] [facility] [address] [id number] [place] [address] Mar, [facility] [place] [facility] [address] [id number] [place] [address] Mar, [facility] [place] [facility] [address] [id number] [place] [address] Mar, [facility] [place] [facility] [address] [id number] [place] [address] 15 Mar, 2010 [facility] [address] [id number] [place] [address] 10 Mar, 2010 [facility] [address] [id number] [place] [address] 10 Mar, 2010 [facility] [address] [id number] [place] [address] 05 Mar, 2010 [facility] [address] [id number] [place] [address] 03 Mar, 2010 [facility] [address] [id number] [place] [address] 02 Mar, 2010 [facility] [address] [id number] [place] [address] Jan, [facility] [address] [id number] [place] [address] Jan, [facility] [address] [id number] [place] [address] Jan, [facility] [address] [facility] [id number] [place] [address] Nov, [facility] [address] [facility] [id number] [place] [address] Oct, [facility] [address] [id number] [place] [address] 31 Mar, 2009 [facility] [address] [id number] [place] [address] 20 Mar, 2009 [facility] [address] [id number] [place] [address] 17 Mar, 2009 [facility] [address] [id number] [place] [address] 17 Mar, 2009 [facility] [address] [id number] [place] [address] Dec, [facility] [address] [facility] [id number] [place] [address] August, [facility] [address] [facility] [id number], [place] [address] August, [facility] [address] [facility] [id number], [place] [address] Jul, [facility] [address] [facility] [id number], [place] [address] Jan, [facility] [address] [facility] [id number], [place] [address] Jan, IMMUNIZATIONS No Known Immunizations SOCIAL HISTORY Never Assessed REASON FOR VISIT Controlled Medication Refill PLAN OF CARE VITAL SIGNS MEDICATIONS Medication Instructions Dosage Frequency Start Date End Date Duration Status Hydrocodone-Acetaminophen 10-325 MG Orally 2 times a day 1 tablet as needed 12h 20 Jul, 2017 28 days Active RESULTS No Results [...] surgeries Hospitalization History multiple hospital stays for [facility]
--- OUTSIDE RECORDS SUMMARY | 2018-09-22 02:57 | XMS REPORT ---
Author Author FLORENTINEZEKIEL PUCKETT Organization [facility] Address [address] [place] [address] Care Team Providers Care Respiratory Manager Name Role Phone DANICA LERMAY Unavailable PROBLEMS Type Condition ICD9-CM Code [id number] Code Onset Dates Condition Status SNOMED Code Problem Chronic gastritis without bleeding, unspecified gastritis type K29.50 Active 4042556 Problem Vitamin D deficiency E55.9 Active 95092168 Problem Osteoporosis M81.0 Active 16645416 Problem Unspecified abdominal pain R10.9 Active 578957843 Problem Fibromyalgia M79.7 Active 63571859 Problem Chronic pain syndrome G89.4 Active 235729549 Problem Trigger point with back pain M54.9 Active 730160361 Problem Chronic tension-type headache, not intractable G44.229 Active 665661096 Problem RUQ abdominal pain R10.11 Active 017731974 Problem Pancytopenia D61.818 Active 364719801 Problem Right sided sciatica M54.31 Active 95609419 Problem Chronic prescription opiate use Z79.891 Active 692136674 Problem Drug induced constipation K59.03 Active 017379211811213 Problem Leukopenia, unspecified type D72.819 Active 23461922 Problem Atrial fibrillation, unspecified type I48.91 Active 09235252 Problem Allergic rhinitis, unspecified allergic rhinitis type J30.9 Active 16946094 Problem Chronic obstructive pulmonary disease, unspecified COPD type J44.9 Active 76539378 Problem Hypothyroidism, unspecified hypothyroidism type E03.9 Active 66651842 Problem Other constipation K59.09 Active 959376802 Problem Porokeratosis Q82.8 Active 789220353 Problem 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 Active 273630794 Problem Allergy to intravenous contrast Z91.041 Active 269050160 Problem Vaginal atrophy N95.2 Active 964560732 Problem Major depression, recurrent F33.9 Active 98832748 Problem History of hepatitis C Z86.19 Active 10058293437836 Problem Hot flashes N95.1 Active 380122041 Problem Plantar fasciitis M72.2 Active 032892179 Problem Polyneuropathy associated with underlying disease G63 Active 853505402 Problem Primary insomnia F51.01 Active 6866688 Problem Low back pain M54.5 Active 680055644 ALLERGIES No Information ENCOUNTERS Encounter Location Date Diagnosis [place] [id number] [place] [address] Nov, [place] [id number] [place] [address] Nov, [place] [id number] [place] [address] Oct, Hypothyroidism, unspecified hypothyroidism type E03.9 and Atrial fibrillation, unspecified type I48.91 [place] [id number] [place] [address] Oct, Fibromyalgia M79.7 ; Chronic pain syndrome G89.4 ; Hypothyroidism, unspecified hypothyroidism type E03.9 ; Overweight (BMI 25.0-29.9) E66.3 and Atrial fibrillation, unspecified type I48.91 [place] [id number] [place] [address] Oct, Chronic pain syndrome G89.4 [place] [id number] [place] [address] Sep, Chronic pain syndrome G89.4 [place] [id number] [place] [address] August, Somatic dysfunction of lumbar region M99.03 and Somatic dysfunction of pelvis region M99.05 [place] [id number] [place] [address] August, Chronic pain syndrome G89.4 [place] [id number] [place] [address] Jul, Trochanteric bursitis of left hip M70.62 and Trochanteric bursitis, right hip M70.61 [facility] [address] [address] Jul, [facility] [id number] [place] [address] Jul, Chronic pain syndrome G89.4 [facility] [id number] [place] [address] Jul, Hypothyroidism, unspecified hypothyroidism type E03.9 [facility] [id number] [place] [address] Jul, Hypothyroidism, unspecified hypothyroidism type E03.9 [place] [id number] [place] [address] Jul, Chronic tension-type headache, not intractable G44.229 ; Atrial fibrillation, unspecified type I48.91 ; Chronic pain syndrome G89.4 ; Hypothyroidism, unspecified hypothyroidism type E03.9 ; Pancytopenia D61.818 ; History of hepatitis C Z86.19 ; Vaginal atrophy N95.2 ; RUQ abdominal pain R10.11 ; Chronic prescription opiate use Z79.891 ; Osteoporosis M81.0 and Screening for breast cancer Z12.31 [place] [id number] [place] [address] Jun, [facility] [id number] [place] [address] May, [facility] [id number] [place] [address] May, [facility] [id number] [place] [address] May, [facility] [id number] [place] [address] Apr, [facility] [id number] [place] [address] Apr, Hypothyroidism, unspecified hypothyroidism type E03.9 [facility] [id number] [place] [address] Apr, Hypothyroidism, unspecified hypothyroidism type E03.9 and Leukopenia, unspecified type D72.819 [place] [id number] [place] [address] Mar, [place] [id number] [place] [address] Mar, Leukopenia, unspecified type D72.819 [place] [id number] [place] [address] Mar, Hypothyroidism, unspecified hypothyroidism type E03.9 and Low hemoglobin D64.9 [place] [id number] [place] [address] Mar, Hypothyroidism, unspecified hypothyroidism type E03.9 [place] [id number] [place] [address] Mar, Osteoporosis M81.0 ; Low hemoglobin D64.9 and Hypothyroidism, unspecified hypothyroidism type E03.9 [place] [id number] [place] [address] Mar, Hypothyroidism, unspecified hypothyroidism type E03.9 ; Bilirubin in urine R82.2 and Pancytopenia D61.818 [place] [id number] [place] [address] Feb, [facility] [place] [id number] [place] [address] Feb, Cough R05 and Bronchitis J40 [facility] [place] [id number] [place] [address] 14 Feb, 2017 Other viral agents as the cause of diseases classified elsewhere B97.89 and Acute upper respiratory infection, unspecified J06.9 [place] [id number] [place] [address] 08 Feb, 2017 Fibromyalgia M79.7 ; Chronic pain syndrome G89.4 ; Hypothyroidism, unspecified hypothyroidism type E03.9 ; Primary insomnia F51.01 ; Osteoporosis M81.0 ; Vision abnormalities H53.9 ; Pancytopenia D61.818 ; BMI 28.0-28.9,adult Z68.28 and Encounter for immunization Z23 [place] [id number] [place] [address] Feb, Neuroma D36.10 and Capsulitis of right foot M77.51 [place] [address] [address] Feb, [place] [address] [address] Feb, Hypothyroidism, unspecified hypothyroidism type E03.9 [place] [address] [address] Jan, [place] [address] [address] Jan, Atrial fibrillation, unspecified type I48.91 [place] [id number] [place] [address] Jan, [place] [address] [address] Jan, Fibromyalgia M79.7 ; Atrial fibrillation, unspecified type I48.91 ; Pain of left hand M79.642 ; Pain in right hand M79.641 ; Chronic prescription opiate use Z79.891 ; Chronic pain syndrome G89.4 ; Elevated fasting glucose R73.01 and Hypothyroidism, unspecified hypothyroidism type E03.9 [place] [id number] [place] [address] Jan, [place] [address] [address] Dec, Trochanteric bursitis of both hips M70.61 [place] [address] [address] Dec, [facility] [id number] [place] [address] Dec, [facility] [address] [address] Nov, [facility] [id number] [place] [address] Nov, Unilateral headache R51 [facility] [address] [address] Nov, [facility] [address] [address] Oct, Unilateral headache R51 ; 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 and Allergy to intravenous contrast Z91.041 [place] [address] [address] Oct, [place] [address] [address] Oct, [facility] [address] [address] Sep, Hypothyroidism, unspecified hypothyroidism type E03.9 [place] [id number] [place] [address] Sep, Hypothyroidism, unspecified hypothyroidism type E03.9 and Bilirubin in urine R82.2 [place] [id number] [place] [address] Sep, Trochanteric bursitis of both hips M70.61 [place] [id number] [place] [address] Sep, Hypothyroidism, unspecified hypothyroidism type E03.9 ; Dysuria R30.0 ; Chronic tension-type headache, not intractable G44.229 and Drug induced constipation K59.03 [facility] [id number] [place] [address] Sep, [facility] [id number] [place] [address] Sep, [facility] [id number] [place] [address] August, [facility] [id number] [place] [address] Jul, [facility] [id number] [place] [address] Jul, Trochanteric bursitis of right hip M70.61 [facility] [id number] [place] [address] Jul, Hypothyroidism, unspecified hypothyroidism type E03.9 [facility] [id number] [place] [address] Jul, Fibromyalgia M79.7 ; Chronic pain syndrome G89.4 ; Hypothyroidism, unspecified hypothyroidism type E03.9 and Other constipation K59.09 [facility] [id number] [place] [address] Jun, Swollen tonsil J35.1 and Strep throat J02.0 [facility] [id number] [place] [address] Jun, [facility] [id number] [place] [address] Jun, Acute maxillary sinusitis J01.00 [facility] [id number] [place] [address] Jun, Hypothyroidism, unspecified hypothyroidism type E03.9 [facility] [id number] [place] [address] Jun, Chronic pain syndrome G89.4 ; Fibromyalgia M79.7 ; Hypothyroidism, unspecified hypothyroidism type E03.9 and Chronic prescription opiate use Z79.891 [facility] [id number] [place] [address] May, [place] [id number] [place] [address] Apr, Hypothyroidism, unspecified hypothyroidism type E03.9 [place] [id number] [place] [address] Apr, [place] [id number] [place] [address] Apr, Lipid screening Z13.220 and Hypothyroidism, unspecified hypothyroidism type E03.9 [place] [id number] [place] [address] Apr, [place] [address] [address] Mar, Trochanteric bursitis of both hips M70.[address] [address] Mar, [place] [address] [address] Mar, Plantar fasciitis M72.2 and Porokeratosis Q82.[address] [address] Feb, Lipid screening Z13.220 ; Vitamin D deficiency E55.9 and Hypothyroidism, unspecified hypothyroidism type E03.9 [place] [id number] [place] [address] Feb, Chronic pain syndrome G89.4 ; Hypothyroidism, unspecified hypothyroidism type E03.9 ; Pancytopenia D61.818 ; Vaginal atrophy N95.2 ; Chronic gastritis without bleeding, unspecified gastritis type K29.50 ; Vitamin D deficiency E55.9 ; Chronic prescription opiate use Z79.891 ; Adverse effect of other opioids, initial encounter T40.2X5A ; Drug induced constipation K59.03 ; Lipid screening Z13.220 and Encounter for immunization Z23 [place] [id number] [place] [address] Feb, [facility] [address] [address] Feb, Ingrown toenail L60.0 [facility] [id number] [place] [address] Jan, [facility] [id number] [place] [address] Jan, Trochanteric bursitis of both hips M70.61 [facility] [id number] [place] [address] Jan, [facility] [id number] [place] [address] Jan, [facility] [id number] [place] [address] Jan, [facility] [id number] [place] [address] Jan, Right sided sciatica M54.31 [facility] [id number] [place] [address] Dec, Onychomycosis B35.1 [facility] [id number] [place] [address] Dec, [facility] [id number] [address] Dec, [facility] [address] [address] 09 Dec, 2015 [facility] [id number] [place] [address] Dec, Osteoarthritis of right hip, unspecified osteoarthritis type M16.11 and Bursitis of right hip M70.71 [facility] [id number] [address] Nov, [facility] [id number] [place] [address] Nov, [facility] [id number] [place] [address] 17 Nov, 2015 [facility] [address] [address] 16 Nov, 2015 Hypothyroidism, unspecified hypothyroidism type E03.9 ; Vitamin D deficiency E55.9 and History of hepatitis C Z86.19 [facility] [address] [address] Nov, Right upper quadrant pain R10.11 ; History of hepatitis C Z86.19 and Low back pain M54.5 [place] [id number] [place] [address] Oct, Trochanteric bursitis, right hip M70.61 [place] [id number] [place] [address] Oct, [place] [id number] [place] [address] Oct, [facility] [id number] [place] [address] Oct, Trochanteric bursitis of both hips M70.61 and Right sided sciatica M54.31 [place] [id number] [place] [address] Oct, Trochanteric bursitis of both hips M70.61 [facility] [id number] [place] [address] 14 Oct, 2015 RUQ abdominal pain R10.11 [place] [id number] [place] [address] 13 Oct, 2015 Sciatic leg pain M54.30 [facility] [id number] [place] [address] 11 Oct, 2015 RUQ abdominal pain R10.11 [place] [id number] [place] [address] Oct, RUQ abdominal pain R10.11 ; History of hepatitis C Z86.19 and Trigger point with back pain M54.9 [place] [id number] [place] [address] Sep, [place] [id number] [place] [address] Sep, Right sided sciatica M54.31 [place] [id number] [place] [address] Sep, Hypothyroidism, unspecified hypothyroidism type E03.9 and Vitamin D deficiency E55.9 [place] [id number] [place] [address] Sep, Plantar fasciitis M72.2 and Porokeratosis Q82.8 [place] [address] [address] Sep, Hypothyroidism, unspecified hypothyroidism type E03.9 ; Chronic pain syndrome G89.4 ; Polyneuropathy associated with underlying disease G63 and Vitamin D deficiency E55.9 [place] [id number] [place] [address] August, [place] [id number] [place] [address] Jul, Plantar fasciitis M72.2 [place] [id number] [place] [address] Jul, Trochanteric bursitis, right hip M70.61 [place] [id number] [place] [address] Jul, Hypothyroidism, unspecified hypothyroidism type E03.9 [place] [id number] [place] [address] Jul, Hypothyroidism, unspecified hypothyroidism type E03.9 ; Chronic pain syndrome G89.4 and Polyneuropathy associated with underlying disease G63 [place] [id number] [place] [address] 10 Jun, 2015 Trochanteric bursitis of both hips M70.61 [place] [id number] [place] [address] 08 Jun, 2015 Vitamin D deficiency E55.9 ; Osteoporosis M81.0 ; Low back pain M54.5 and Plantar fasciitis M72.2 [place] [address] [address] May, Vitamin D deficiency E55.9 and Hypothyroidism, unspecified hypothyroidism type E03.9 [place] [address] [address] May, Acute maxillary sinusitis J01.00 [place] [address] [address] 18 May, 2015 Osteoporosis M81.0 and Hypothyroidism, unspecified hypothyroidism type E03.9 [place] [id number] [place] [address] 16 May, 2015 Osteoporosis M81.0 [place] [address] [address] 15 May, 2015 [place] [id number] [place] [address] Apr, [place] [id number] [place] [address] Apr, Trochanteric bursitis of both hips M70.61 [place] [id number] [place] [address] Apr, Hypothyroidism, unspecified hypothyroidism type E03.9 [place] [id number] [place] [address] Apr, Chronic pain syndrome G89.4 ; Bilateral low back pain with sciatica, sciatica laterality unspecified M54.40 ; Pain in right hip M25.551 ; Pain in left hip M25.552 ; Chronic prescription opiate use Z79.899 ; Primary insomnia F51.01 and Hypothyroidism, unspecified hypothyroidism type E03.9 [facility] [id number] [place] [address] Mar, [facility] [id number] [place] [address] Feb, [facility] [address] [address] Feb, Chronic pain syndrome G89.4 and Major depression F32.9 [place] [address] [address] Feb, Fatigue R53.83 [place] [address] [address] Feb, History of fracture Z87.81 [place] [address] [address] Feb, Major depression, recurrent F33.9 and Generalized anxiety disorder F41.1 [place] [id number] [place] [address] Feb, [facility] [id number] [place] [address] Jan, Hypothyroidism, unspecified hypothyroidism type E03.9 [facility] [id number] [place] [address] Jan, Abdominal pain R10.9 and Hypothyroidism, unspecified hypothyroidism type E03.9 [facility] [id number] [place] [address] Jan, Abdominal pain R10.9 [facility] [id number] [place] [address] Jan, Hypothyroidism, unspecified hypothyroidism type E03.9 [facility] [id number] [place] [address] Jan, [place] [id number] [place] [address] Jan, 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 and Hypothyroidism, unspecified hypothyroidism type E03.9 [place] [id number] [place] [address] Jan, 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 ; Abdominal pain R10.9 ; Dyspareunia N94.1 ; Encounter for immunization Z23 ; History of fracture Z87.81 ; Fatigue R53.83 ; Throat fullness R68.89 ; Bruises easily R23.8 ; Hot flashes N95.1 ; Depression F32.9 and Vaginal atrophy N95.2 [place] [id number] [place] [address] Jan, Hypothyroidism, unspecified hypothyroidism type E03.9 [place] [address] [address] Jan, Unspecified abdominal pain R10.9 ; Chronic obstructive pulmonary disease, unspecified COPD type J44.9 ; Allergic rhinitis, unspecified allergic rhinitis type J30.9 ; Chronic pain syndrome G89.4 ; Hypothyroidism, unspecified hypothyroidism type E03.9 ; Chest pain, unspecified chest pain type R07.9 and Plantar fasciitis M72.2 [place] [id number] [place] [address] Jan, Trochanteric bursitis of both hips M70.61 [place] [id number] [place] [address] Dec, [place] [address] [address] Nov, [place] [address] [id number] [place] [phone] Nov, [place] [address] [phone] Nov, Constipation 564.00 [facility] [id number] [place] [phone] Oct, Chronic pain 338.29 and Hypothyroidism 244.9 [facility] [id number] [place] [phone] Oct, [facility] [id number] [place] [phone] Sep, [facility] [id number] [place] [phone] Sep, [facility] [id number] [place] [phone] Sep, [facility] [id number] [place] [phone] Sep, [facility] [id number] [place] [phone] Sep, [facility] [id number] [place] [phone] Sep, [facility] [id number] [place] [phone] Sep, COPD exacerbation 491.21 ; Chronic pain 338.29 ; Hypothyroidism 244.9 and Pancytopenia 284.19 [facility] [id number] [address] August, [facility] [id number] [address] Jul, [facility] [id number] [place] [phone] Jul, [facility] [id number] [address] Jun, [facility] [id number] [place] [address] Jun, [facility] [place] [facility] [address] [id number] [place] [address] Jun, [facility] [place] [facility] [address] [id number] [place] [address] Jun, [facility] [place] [facility] [address] [facility] [id number] [place] [address] Jun, [facility] [place] [facility] [address] [id number] [place] [address] May, 2014 [facility] [place] [facility] [address] [id number] [place] [address] May, 2014 [facility] [place] [facility] [address] [id number] [place] [address] May, 2014 [facility] [place] [facility] [address] [facility] [id number] [place] [address] May, 2014 [facility] [place] [facility] [address] [facility] [id number] [place] [address] May, 2014 [facility] [place] [facility] [address] [facility] [id number] [place] [address] May, 2014 [facility] [place] [facility] [address] [facility] [id number] [place] [address] May, 2014 [facility] [place] [facility] [address] [facility] [id number] [place] [address] May, 2014 [facility] [place] [facility] [address] [facility] [id number] [place] [address] May, 2014 [facility] [place] [facility] [address] [facility] [id number] [place] [address] May, 2014 [facility] [place] [facility] [address] [facility] [id number] [place] [address] May, 2014 [facility] [place] [facility] [address] [facility] [id number] [place] [address] May, 2014 [facility] [place] [facility] [address] [id number] [place] [address] May, [facility] [place] [facility] [address] [id number] [place] [address] Apr, [facility] [place] [facility] [address] [id number] [place] [address] Apr, [facility] [place] [facility] [address] [id number] [place] [address] Apr, [facility] [place] [facility] [address] [id number] [place] [address] Apr, [facility] [place] [facility] [address] [id number] [place] [address] Apr, [facility] [place] [facility] [address] [id number] [place] [address] Apr, [facility] [place] [facility] [address] [id number] [place] [address] Apr, [facility] [place] [facility] [address] [id number] [place] [address] Mar, [facility] [place] [facility] [address] [id number] [place] [address] Mar, [facility] [place] [facility] [address] [id number] [place] [address] Mar, [facility] [place] [facility] [address] [id number] [place] [address] Mar, [facility] [place] [facility] [address] [id number] [place] [address] Mar, [facility] [place] [facility] [address] [id number] [place] [address] Mar, [facility] [place] [facility] [address] [id number] [place] [address] Feb, [facility] [place] [facility] [address] [id number] [place] [address] Feb, [facility] [place] [facility] [address] [id number] [place] [address] Feb, [facility] [place] [facility] [address] [id number] [place] [address] Feb, [facility] [place] [facility] [address] [id number] [place] [address] Feb, [facility] [place] [facility] [address] [id number] [place] [address] Feb, [facility] [place] [facility] [address] [id number] [place] [address] Jan, [facility] [place] [facility] [address] [id number] [place] [address] Jan, [facility] [place] [facility] [address] [id number] [place] [address] Jan, [facility] [place] [facility] [address] [id number] [place] [address] Jan, [facility] [place] [facility] [address] [id number] [place] [address] Jan, [facility] [place] [facility] [address] [id number] [address] Jan, [facility] [place] [facility] [address] [id number], [place] [address] Jan, [facility] [place] [facility] [address] [id number] [address] Jan, [facility] [place] [facility] [address] [id number] [place] [address] Dec, [facility] [place] [facility] [address] [id number], [place] [address] Dec, [facility] [place] [facility] [address] [id number] [place] [address] Dec, [facility] [place] [facility] [address] [id number] [place] [address] 23 Dec, 2013 [facility] [place] [facility] [address] [id number] [place] [address] 13 Dec, 2013 [facility] [place] [facility] [address] [id number] [place] [address] Dec, [facility] [place] [facility] [address] [id number] [place] [address] Dec, [facility] [place] [facility] [address] [id number] [place] [address] Nov, [facility] [place] [facility] [address] [id number] [place] [address] Nov, [facility] [place] [facility] [address] [id number] [place] [address] Oct, [facility] [place] [facility] [address] [id number] [place] [address] Oct, [facility] [place] [facility] [address] [id number] [place] [address] Oct, [facility] [place] [facility] [address] [id number] [place] [address] Oct, [facility] [place] [facility] [address] [id number] [place] [address] Sep, [facility] [place] [facility] [address] [id number] [place] [address] Sep, [facility] [place] [facility] [address] [id number] [place] [address] Sep, [facility] [place] [facility] [address] [id number] [place] [address] Sep, [facility] [place] [facility] [address] [id number] [place] [address] Sep, [facility] [place] [facility] [address] [id number] [place] [address] Sep, [facility] [place] [facility] [address] [id number] [place] [address] Sep, [facility] [place] [facility] [address] [id number] [place] [address] Sep, [facility] [place] [facility] [address] [id number] [place] [address] August, [facility] [place] [facility] [address] [id number] [place] [address] August, [facility] [place] [facility] [address] [id number] [place] [address] August, [facility] [place] [facility] [address] [id number] [place] [address] August, [facility] [place] [facility] [address] [id number] [place] [address] Jul, [facility] [place] [facility] [address] [id number] [place] [address] Jul, [facility] [place] [facility] [address] [id number] [place] [address] Jul, [facility] [place] [facility] [address] [id number] [place] [address] Jul, [facility] [place] [facility] [address] [id number] [place] [address] 17 Jul, 2013 [facility] [place] [facility] [address] [id number] [place] [address] 16 Jul, 2013 [facility] [place] [facility] [address] [id number] [place] [address] 15 Jul, 2013 [facility] [place] [facility] [address] [id number] [place] [address] 15 Jul, 2013 [facility] [place] [facility] [address] [id number] [place] [address] 18 Jun, 2013 [facility] [place] [facility] [address] [id number] [place] [address] Jun, [facility] [place] [facility] [address] [id number] [place] [address] Jun, [facility] [place] [facility] [address] [id number] [place] [address] Jun, [facility] [place] [facility] [address] [id number] [place] [address] Jun, [facility] [place] [facility] [address] [id number] [place] [address] Jun, [facility] [place] [facility] [address] [id number] [place] [address] Jun, [facility] [place] [facility] [address] [id number] [place] [address] Jun, [facility] [place] [facility] [address] [id number] [place] [address] May, [facility] [place] [facility] [address] [id number] [place] [address] May, [facility] [place] [facility] [address] [id number] [place] [address] Apr, [facility] [place] [facility] [address] [id number] [place] [address] Apr, [facility] [place] [facility] [address] [id number] [place] [address] Mar, [facility] [place] [facility] [address] [id number] [place] [address] 24 Mar, 2013 [facility] [place] [facility] [address] [id number] [place] [address] Mar, [facility] [place] [facility] [address] [id number] [place] [address] Mar, [facility] [place] [facility] [address] [id number] [place] [address] Mar, [facility] [place] [facility] [address] [id number] [place] [address] Mar, [facility] [address] [id number] [place] [address] Mar, [facility] [place] [facility] [address] [id number] [place] [address] Feb, [facility] [address] [id number] [place] [address] Feb, [facility] [place] [facility] [address] [id number] [place] [address] Feb, [facility] [address] [id number] [place] [address] Feb, [facility] [place] [facility] [address] [id number] [place] [address] Feb, [facility] [place] [facility] [address] [id number] [place] [address] Feb, [facility] [address] [id number] [place] [address] 26 Dec, 2012 [facility] [place] [facility] [address] [id number] [place] [address] 18 Dec, 2012 [facility] [place] [facility] [address] [id number] [place] [address] 13 Dec, 2012 [facility] [place] [facility] [address] [id number] [place] [address] 13 Dec, 2012 [facility] [place] [facility] [address] [id number] [place] [address] 06 Dec, 2012 [facility] [place] [facility] [address] [id number] [place] [address] Nov, [facility] [place] [facility] [address] [id number] [place] [address] Nov, [facility] [place] [facility] [address] [id number] [place] [address] Oct, [facility] [address] [id number] [place] [address] August, [facility] [place] [facility] [address] [id number] [place] [address] August, [facility] [address] [id number] [place] [address] August, [facility] [place] [facility] [address] [id number] [place] [address] Jul, [facility] [address] [id number] [place] [address] Jul, [facility] [address] [id number] [place] [address] Jul, [facility] [address] [id number] [place] [address] Jun, [facility] [address] [id number] [place] [address] Jun, [facility] [address] [id number] [place] [address] Jun, [facility] [place] [facility] [address] [id number] [place] [address] Jun, [facility] [place] [facility] [address] [id number] [place] [address] Jun, [facility] [place] [facility] [address] [id number], [place] [address] 15 Jun, 2012 [facility] [place] [facility] [address] [id number] [place] [address] Jun, [facility] [place] [facility] [address] [id number] [place] [address] May, [facility] [place] [facility] [address] [id number] [place] [address] May, [facility] [place] [facility] [address] [id number] [place] [address] 06 May, 2012 [facility] [address] [id number] [place] [address] 05 May, 2012 [facility] [address] [id number] [place] [address] Apr, [facility] [address] [id number] [place] [address] Apr, [facility] [address] [id number] [place] [address] Apr, [facility] [address] [id number] [place] [address] Mar, [facility] [address] [id number] [place] [address] Mar, [facility] [address] [id number] [place] [address] Mar, [facility] [address] [id number] [place] [address] Mar, [facility] [address] [id number] [place] [address] Mar, [facility] [address] [facility] [id number] [place] [address] Mar, [facility] [address] [id number] [place] [address] Mar, [facility] [address] [id number] [place] [address] Mar, [facility] [address] [id number] [place] [address] Feb, [facility] [address] [id number] [place] [address] Feb, [facility] [address] [id number] [place] [address] Feb, [facility] [place] [facility] [address] [id number] [place] [address] Jan, [facility] [place] [facility] [address] [id number] [place] [address] Jan, [facility] [place] [facility] [address] [id number] [place] [address] Jan, [facility] [place] [facility] [address] [id number] [place] [address] Jan, [facility] [place] [facility] [address] [id number] [place] [address] Jan, [facility] [place] [facility] [address] [id number] [place] [address] Jan, [facility] [place] [facility] [address] [id number] [place] [address] Jan, [facility] [place] [facility] [address] [id number] [place] [address] Dec, [facility] [place] [facility] [address] [id number] [place] [address] 24 Dec, 2011 [facility] [place] [facility] [address] [id number] [place] [address] Dec, [facility] [place] [facility] [address] [id number] [place] [address] Nov, [facility] [place] [facility] [address] [id number], [place] [address] Nov, [facility] [place] [facility] [address] [id number] [place] [address] Nov, [facility] [place] [facility] [address] [id number] [place] [address] Nov, [facility] [place] [facility] [address] [id number], [place] [address] Oct, [facility] [place] [facility] [address] [id number][place] [address] 05 Oct, 2011 [facility] [place] [facility] [address] [id number] [place] [address] Oct, [facility] [place] [facility] [address] [id number] [place] [address] Sep, [facility] [place] [facility] [address] [id number] [place] [address] 16 Sep, 2011 [facility] [place] [facility] [address] [id number] [place] [address] Sep, [facility] [place] [facility] [address] [id number] [place] [address] Sep, [facility] [place] [facility] [address] [id number] [place] [address] Sep, [facility] [place] [facility] [address] [id number] [place] [address] Sep, [facility] [place] [facility] [address] [id number] [place] [address] August, [facility] [place] [facility] [address] [id number] [place] [address] Jul, [facility] [place] [facility] [address] [id number] [place] [address] Jul, [facility] [place] [facility] [address] [id number] [place] [address] Jul, [facility] [place] [facility] [address] [id number] [place] [address] Jul, [facility] [place] [facility] [address] [id number] [place] [address] Jul, [facility] [place] [facility] [address] [id number] [place] [address] Jun, [facility] [place] [facility] [address] [id number] [place] [address] Jun, [facility] [place] [facility] [address] [id number] [place] [address] 15 Jun, 2011 [facility] [address] [id number] [place] [address] 15 Jun, 2011 [facility] [place] [facility] [address] [id number] [place] [address] 09 Jun, 2011 [facility] [place] [facility] [address] [id number] [place] [address] May, [facility] [place] [facility] [address] [id number] [place] [address] May, [facility] [place] [facility] [address] [id number] [place] [address] May, [facility] [address] [id number] [place] [address] May, [facility] [place] [facility] [address] [id number] [place] [address] May, [facility] [place] [facility] [address] [id number] [place] [address] May, [facility] [address] [facility] [id number] [place] [address] May, [facility] [place] [facility] [address] [facility] [id number] [place] [address] Apr, [facility] [address] [id number] [place] [address] Mar, [facility] [place] [facility] [address] [id number] [place] [address] Mar, [facility] [place] [facility] [address] [id number] [place] [address] Mar, [facility] [place] [facility] [address] [id number] [place] [address] Mar, [facility] [place] [facility] [address] [id number], [place] [address] 08 Mar, 2011 [facility] [place] [facility] [address] [id number] [place] [address] Feb, [facility] [place] [facility] [address] [id number] [place] [address] Feb, [facility] [place] [facility] [address] [id number] [place] [address] Feb, [facility] [place] [facility] [address] [id number] [place] [address] 14 Feb, 2011 [facility] [place] [facility] [address] [id number] [place] [address] Feb, [facility] [place] [facility] [address] [id number] [place] [address] Feb, [facility] [place] [facility] [address] [id number] [place] [address] Feb, [facility] [place] [facility] [address] [id number] [place] [address] Jan, [facility] [place] [facility] [address] [id number] [place] [address] Dec, [facility] [place] [facility] [address] [id number] [place] [address] Oct, [facility] [place] [facility] [address] [id number], [place] [address] Jun, [facility] [place] [facility] [address] [id number] [place] [address] Mar, [facility] [place] [facility] [address] [id number] [place] [address] Mar, [facility] [place] [facility] [address] [id number] [place] [address] Mar, [facility] [place] [facility] [address] [id number] [place] [address] Mar, [facility] [place] [facility] [address] [id number] [place] [address] 15 Mar, 2010 [facility] [address] [id number] [place] [address] 10 Mar, 2010 [facility] [address] [id number] [place] [address] 10 Mar, 2010 [facility] [address] [id number] [place] [address] 05 Mar, 2010 [facility] [address] [id number] [place] [address] 03 Mar, 2010 [facility] [address] [id number] [place] [address] 02 Mar, 2010 [facility] [address] [id number] [place] [address] Jan, [facility] [address] [id number] [place] [address] Jan, [facility] [address] [id number] [place] [address] Jan, [facility] [address] [id number] [place] [address] Nov, [facility] [address] [id number] [place] [address] Oct, [facility] [address] [id number] [place] [address] 31 Mar, 2009 [facility] [address] [id number] [place] [address] 20 Mar, 2009 [facility] [place] [facility] [address] [id number] [place] [address] 17 Mar, 2009 [facility] [address] [id number] [place] [address] 17 Mar, 2009 [facility] [address] [id number] [place] [address] Dec, [facility] [address] [facility] [id number], [place] [address] August, [facility] [address] [facility] [id number], [place] [address] August, [facility] [address] [facility] [id number], [place] [address] Jul, [facility] [address] [facility] [id number], [place] [address] Jan, [facility] [address] [facility] [id number], [place] [address] Jan, IMMUNIZATIONS No Known Immunizations SOCIAL HISTORY Never Assessed REASON FOR VISIT lab results PLAN OF CARE VITAL SIGNS MEDICATIONS Medication Instructions Dosage Frequency Start Date End Date Duration Status Synthroid 200 MCG Orally Once a day 1 tablet on an empty stomach in the morning 24h Jul, 30 day(s) Active RESULTS No Results PROCEDURES No Known [...] surgeries Hospitalization History multiple hospital stays for [facility]
--- OUTSIDE RECORDS SUMMARY | 2018-09-22 02:58 | XMS REPORT ---
Author Author FLORENTINEZEKIEL PUCKETT Organization [facility] Address [address] [place] [address] Care Team Providers Care Head Of Cytogenetics Name Role Phone DANICA LERMAY Unavailable PROBLEMS Type Condition ICD9-CM Code OJR59-UG Code Onset Dates Condition Status SNOMED Code Problem Chronic gastritis without bleeding, unspecified gastritis type K29.50 Active 5381194 Problem Vitamin D deficiency E55.9 Active 20666666 Problem Osteoporosis M81.0 Active 64742583 Problem Unspecified abdominal pain R10.9 Active 062246741 Problem Fibromyalgia M79.7 Active 19671847 Problem Chronic pain syndrome G89.4 Active 170749038 Problem Trigger point with back pain M54.9 Active 003643810 Problem Chronic tension-type headache, not intractable G44.229 Active 468042805 Problem RUQ abdominal pain R10.11 Active 324314671 Problem Pancytopenia D61.818 Active 695770465 Problem Right sided sciatica M54.31 Active 25608851 Problem Chronic prescription opiate use Z79.891 Active 698492373 Problem Drug induced constipation K59.03 Active 179593222166006 Problem Leukopenia, unspecified type D72.819 Active 00314625 Problem Atrial fibrillation, unspecified type I48.91 Active 15987338 Problem Allergic rhinitis, unspecified allergic rhinitis type J30.9 Active 48389649 Problem Chronic obstructive pulmonary disease, unspecified COPD type J44.9 Active 75974448 Problem Hypothyroidism, unspecified hypothyroidism type E03.9 Active 88229767 Problem Other constipation K59.09 Active 415204723 Problem Porokeratosis Q82.8 Active 952033719 Problem 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 Active 905794816 Problem Allergy to intravenous contrast Z91.041 Active 435230347 Problem Vaginal atrophy N95.2 Active 981731113 Problem Major depression, recurrent F33.9 Active 49490871 Problem History of hepatitis C Z86.19 Active 16535121963624 Problem Hot flashes N95.1 Active 901326904 Problem Plantar fasciitis M72.2 Active 387820331 Problem Polyneuropathy associated with underlying disease G63 Active 655314547 Problem Primary insomnia F51.01 Active 0672271 Problem Low back pain M54.5 Active 347367899 ALLERGIES No Information ENCOUNTERS Encounter Location Date Diagnosis [place] [id number] [place] [address] Nov, [place] [id number] [place] [address] Nov, [place] [id number] [place] [address] Oct, Hypothyroidism, unspecified hypothyroidism type E03.9 and Atrial fibrillation, unspecified type I48.91 [place] [id number] [place] [address] Oct, Fibromyalgia M79.7 ; Chronic pain syndrome G89.4 ; Hypothyroidism, unspecified hypothyroidism type E03.9 ; Overweight (BMI 25.0-29.9) E66.3 and Atrial fibrillation, unspecified type I48.91 [place] [id number] [place] [address] Oct, Chronic pain syndrome G89.4 [place] [id number] [place] [address] Sep, Chronic pain syndrome G89.4 [place] [id number] [place] [address] August, Somatic dysfunction of lumbar region M99.03 and Somatic dysfunction of pelvis region M99.05 [place] [id number] [place] [address] August, Chronic pain syndrome G89.4 [place] [id number] [place] [address] Jul, Trochanteric bursitis of left hip M70.62 and Trochanteric bursitis, right hip M70.61 [facility] [address] [address] Jul, [facility] [id number] [place] [address] Jul, Chronic pain syndrome G89.4 [facility] [id number] [place] [address] Jul, Hypothyroidism, unspecified hypothyroidism type E03.9 [facility] [id number] [place] [address] Jul, Hypothyroidism, unspecified hypothyroidism type E03.9 [place] [id number] [place] [address] Jul, Chronic tension-type headache, not intractable G44.229 ; Atrial fibrillation, unspecified type I48.91 ; Chronic pain syndrome G89.4 ; Hypothyroidism, unspecified hypothyroidism type E03.9 ; Pancytopenia D61.818 ; History of hepatitis C Z86.19 ; Vaginal atrophy N95.2 ; RUQ abdominal pain R10.11 ; Chronic prescription opiate use Z79.891 ; Osteoporosis M81.0 and Screening for breast cancer Z12.31 [place] [id number] [place] [address] Jun, [facility] [address] [place] [address] May, [facility] [address] [place] [address] May, [facility] [address] [place] [address] May, [facility] [id number] [place] [address] Apr, [facility] [address] [place] [address] Apr, Hypothyroidism, unspecified hypothyroidism type E03.9 [facility] [id number] [place] [address] Apr, Hypothyroidism, unspecified hypothyroidism type E03.9 and Leukopenia, unspecified type D72.819 [place] [id number] [place] [address] Mar, [place] [id number] [place] [address] Mar, Leukopenia, unspecified type D72.819 [place] [id number] [place] [address] Mar, Hypothyroidism, unspecified hypothyroidism type E03.9 and Low hemoglobin D64.9 [place] [id number] [place] [address] Mar, Hypothyroidism, unspecified hypothyroidism type E03.9 [place] [id number] [place] [address] Mar, Osteoporosis M81.0 ; Low hemoglobin D64.9 and Hypothyroidism, unspecified hypothyroidism type E03.9 [place] [id number] [place] [address] Mar, Hypothyroidism, unspecified hypothyroidism type E03.9 ; Bilirubin in urine R82.2 and Pancytopenia D61.818 [place] [address] [place] [address] Feb, [facility] [place] [id number] [place] [address] Feb, Cough R05 and Bronchitis J40 [facility] [place] [id number] [place] [address] 14 Feb, 2017 Other viral agents as the cause of diseases classified elsewhere B97.89 and Acute upper respiratory infection, unspecified J06.9 [place] [id number] [place] [address] 08 Feb, 2017 Fibromyalgia M79.7 ; Chronic pain syndrome G89.4 ; Hypothyroidism, unspecified hypothyroidism type E03.9 ; Primary insomnia F51.01 ; Osteoporosis M81.0 ; Vision abnormalities H53.9 ; Pancytopenia D61.818 ; BMI 28.0-28.9,adult Z68.28 and Encounter for immunization Z23 [place] [id number] [place] [address] Feb, Neuroma D36.10 and Capsulitis of right foot M77.51 [place] [address] [address] Feb, [place] [address] [address] Feb, Hypothyroidism, unspecified hypothyroidism type E03.9 [place] [address] [address] Jan, [place] [address] [address] Jan, Atrial fibrillation, unspecified type I48.91 [place] [id number] [place] [address] Jan, [place] [address] [address] Jan, Fibromyalgia M79.7 ; Atrial fibrillation, unspecified type I48.91 ; Pain of left hand M79.642 ; Pain in right hand M79.641 ; Chronic prescription opiate use Z79.891 ; Chronic pain syndrome G89.4 ; Elevated fasting glucose R73.01 and Hypothyroidism, unspecified hypothyroidism type E03.9 [place] [id number] [place] [address] Jan, [place] [address] [address] Dec, Trochanteric bursitis of both hips M70.61 [place] [address] [address] Dec, [facility] [id number] [place] [address] Dec, [facility] [address] [address] Nov, [facility] [id number] [place] [address] Nov, Unilateral headache R51 [facility] [address] [address] Nov, [facility] [address] [address] Oct, Unilateral headache R51 ; 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 and Allergy to intravenous contrast Z91.041 [place] [address] [address] Oct, [place] [address] [address] Oct, [facility] [address] [address] Sep, Hypothyroidism, unspecified hypothyroidism type E03.9 [place] [id number] [place] [address] Sep, Hypothyroidism, unspecified hypothyroidism type E03.9 and Bilirubin in urine R82.2 [place] [id number] [place] [address] Sep, Trochanteric bursitis of both hips M70.61 [place] [id number] [place] [address] Sep, Hypothyroidism, unspecified hypothyroidism type E03.9 ; Dysuria R30.0 ; Chronic tension-type headache, not intractable G44.229 and Drug induced constipation K59.03 [facility] [id number] [place] [address] Sep, [facility] [id number] [place] [address] Sep, [facility] [id number] [place] [address] August, [facility] [id number] [place] [address] Jul, [facility] [id number] [place] [address] Jul, Trochanteric bursitis of right hip M70.61 [facility] [id number] [place] [address] Jul, Hypothyroidism, unspecified hypothyroidism type E03.9 [facility] [id number] [place] [address] Jul, Fibromyalgia M79.7 ; Chronic pain syndrome G89.4 ; Hypothyroidism, unspecified hypothyroidism type E03.9 and Other constipation K59.[address] [facility] [id number] [place] [address] Jun, Swollen tonsil J35.1 and Strep throat J02.0 [facility] [id number] [place] [address] Jun, [facility] [id number] [place] [address] Jun, Acute maxillary sinusitis J01.00 [facility] [id number] [place] [address] Jun, Hypothyroidism, unspecified hypothyroidism type E03.9 [facility] [id number] [place] [address] Jun, Chronic pain syndrome G89.4 ; Fibromyalgia M79.7 ; Hypothyroidism, unspecified hypothyroidism type E03.9 and Chronic prescription opiate use Z79.891 [facility] [id number] [place] [address] May, [place] [address] [place] [address] Apr, Hypothyroidism, unspecified hypothyroidism type E03.9 [place] [id number] [place] [address] Apr, [place] [id number] [place] [address] Apr, Lipid screening Z13.220 and Hypothyroidism, unspecified hypothyroidism type E03.9 [place] [id number] [place] [address] Apr, [place] [address] [address] Mar, Trochanteric bursitis of both hips M70.[address] [address] Mar, [place] [address] [address] Mar, Plantar fasciitis M72.2 and Porokeratosis Q82.[address] [address] Feb, Lipid screening Z13.220 ; Vitamin D deficiency E55.9 and Hypothyroidism, unspecified hypothyroidism type E03.9 [place] [id number] [place] [address] Feb, Chronic pain syndrome G89.4 ; Hypothyroidism, unspecified hypothyroidism type E03.9 ; Pancytopenia D61.818 ; Vaginal atrophy N95.2 ; Chronic gastritis without bleeding, unspecified gastritis type K29.50 ; Vitamin D deficiency E55.9 ; Chronic prescription opiate use Z79.891 ; Adverse effect of other opioids, initial encounter T40.2X5A ; Drug induced constipation K59.03 ; Lipid screening Z13.220 and Encounter for immunization Z23 [place] [id number] [place] [address] Feb, [facility] [address], [place] [address] Feb, Ingrown toenail L60.0 [facility] [address] [place] [address] Jan, [facility] [address] [place] [id number] [place] [address] Jan, Trochanteric bursitis of both hips M70.61 [facility] [address] [id number] [place] [address] Jan, [facility] [id number] [place] [address] Jan, [facility] [address] [place] [address] Jan, [facility] [id number] [place] [address] Jan, Right sided sciatica M54.31 [facility] [id number] [place] [address] Dec, Onychomycosis B35.1 [facility] [address] [place] [address] Dec, [facility] [id number] [address] Dec, [facility] [address], [place] [address] 09 Dec, 2015 [facility] [id number] [place] [address] Dec, Osteoarthritis of right hip, unspecified osteoarthritis type M16.11 and Bursitis of right hip M70.71 [facility] [id number], [place] [address] Nov, [facility] [id number] [place] [address] Nov, [facility] [id number] [place] [address] 17 Nov, 2015 [facility] [address] [address] 16 Nov, 2015 Hypothyroidism, unspecified hypothyroidism type E03.9 ; Vitamin D deficiency E55.9 and History of hepatitis C Z86.19 [facility] [address] [address] Nov, Right upper quadrant pain R10.11 ; History of hepatitis C Z86.19 and Low back pain M54.5 [place] [id number] [place] [address] Oct, Trochanteric bursitis, right hip M70.61 [place] [id number] [place] [address] Oct, [place] [id number] [place] [address] Oct, [facility] [id number] [place] [address] Oct, Trochanteric bursitis of both hips M70.61 and Right sided sciatica M54.31 [place] [id number] [place] [address] Oct, Trochanteric bursitis of both hips M70.61 [facility] [id number] [place] [address] 14 Oct, 2015 RUQ abdominal pain R10.11 [place] [id number] [place] [address] 13 Oct, 2015 Sciatic leg pain M54.30 [facility] [id number] [place] [address] 11 Oct, 2015 RUQ abdominal pain R10.11 [place] [id number] [place] [address] Oct, RUQ abdominal pain R10.11 ; History of hepatitis C Z86.19 and Trigger point with back pain M54.9 [place] [id number] [place] [address] Sep, [place] [id number] [place] [address] Sep, Right sided sciatica M54.31 [place] [id number] [place] [address] Sep, Hypothyroidism, unspecified hypothyroidism type E03.9 and Vitamin D deficiency E55.9 [place] [id number] [place] [address] Sep, Plantar fasciitis M72.2 and Porokeratosis Q82.8 [place] [address] [address] Sep, Hypothyroidism, unspecified hypothyroidism type E03.9 ; Chronic pain syndrome G89.4 ; Polyneuropathy associated with underlying disease G63 and Vitamin D deficiency E55.9 [place] [id number] [place] [address] August, [place] [id number] [place] [address] Jul, Plantar fasciitis M72.2 [place] [id number] [place] [address] Jul, Trochanteric bursitis, right hip M70.61 [place] [id number] [place] [address] Jul, Hypothyroidism, unspecified hypothyroidism type E03.9 [place] [id number] [place] [address] Jul, Hypothyroidism, unspecified hypothyroidism type E03.9 ; Chronic pain syndrome G89.4 and Polyneuropathy associated with underlying disease G63 [place] [id number] [place] [address] 10 Jun, 2015 Trochanteric bursitis of both hips M70.61 [place] [id number] [place] [address] 08 Jun, 2015 Vitamin D deficiency E55.9 ; Osteoporosis M81.0 ; Low back pain M54.5 and Plantar fasciitis M72.2 [place] [address] [address] May, Vitamin D deficiency E55.9 and Hypothyroidism, unspecified hypothyroidism type E03.9 [place] [address] [address] May, Acute maxillary sinusitis J01.00 [place] [address] [address] 18 May, 2015 Osteoporosis M81.0 and Hypothyroidism, unspecified hypothyroidism type E03.9 [place] [id number] [place] [address] 16 May, 2015 Osteoporosis M81.0 [place] [address] [address] 15 May, 2015 [place] [id number] [place] [address] Apr, [place] [id number] [place] [address] Apr, Trochanteric bursitis of both hips M70.61 [place] [id number] [place] [address] Apr, Hypothyroidism, unspecified hypothyroidism type E03.9 [place] [id number] [place] [address] Apr, Chronic pain syndrome G89.4 ; Bilateral low back pain with sciatica, sciatica laterality unspecified M54.40 ; Pain in right hip M25.551 ; Pain in left hip M25.552 ; Chronic prescription opiate use Z79.899 ; Primary insomnia F51.01 and Hypothyroidism, unspecified hypothyroidism type E03.9 [facility] [id number] [place] [address] Mar, [facility] [id number] [place] [address] Feb, [facility] [address] [address] Feb, Chronic pain syndrome G89.4 and Major depression F32.9 [place] [address] [address] Feb, Fatigue R53.83 [place] [address] [address] Feb, History of fracture Z87.81 [place] [address] [address] Feb, Major depression, recurrent F33.9 and Generalized anxiety disorder F41.1 [place] [id number] [place] [address] Feb, [facility] [id number] [place] [address] Jan, Hypothyroidism, unspecified hypothyroidism type E03.9 [facility] [id number] [place] [address] Jan, Abdominal pain R10.9 and Hypothyroidism, unspecified hypothyroidism type E03.9 [facility] [id number] [place] [address] Jan, Abdominal pain R10.9 [facility] [id number] [place] [address] Jan, Hypothyroidism, unspecified hypothyroidism type E03.9 [facility] [id number] [place] [address] Jan, [place] [id number] [place] [address] Jan, 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/o 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 Z01.419 and Hypothyroidism, unspecified hypothyroidism type E03.9 [place] [id number] [place] [address] Jan, 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/o 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 Z01.419 ; Abdominal pain R10.9 ; Dyspareunia N94.1 ; Encounter for immunization Z23 ; History of fracture Z87.81 ; Fatigue R53.83 ; Throat fullness R68.89 ; Bruises easily R23.8 ; Hot flashes N95.1 ; Depression F32.9 and Vaginal atrophy N95.2 [place] [id number] [place] [address] Jan, Hypothyroidism, unspecified hypothyroidism type E03.9 [place] [address] [address] Jan, Unspecified abdominal pain R10.9 ; Chronic obstructive pulmonary disease, unspecified COPD type J44.9 ; Allergic rhinitis, unspecified allergic rhinitis type J30.9 ; Chronic pain syndrome G89.4 ; Hypothyroidism, unspecified hypothyroidism type E03.9 ; Chest pain, unspecified chest pain type R07.9 and Plantar fasciitis M72.2 [place] [id number] [place] [address] Jan, Trochanteric bursitis of both hips M70.61 [place] [id number] [place] [id number] Dec, [place] [address] [phone] Nov, [place] [id number] [place] [id number] Nov, [place] [address] [id number] Nov, Constipation 564.00 [facility] [id number] [place] [id number] Oct, Chronic pain 338.29 and Hypothyroidism 244.9 [facility] [id number] [place] [phone] Oct, [facility] [id number] [place] [phone] Sep, [facility] [id number] [place] [id number] Sep, [facility] [address] [id number] [place] [address] Sep, [facility] [id number] [place] [address] Sep, [facility] [id number] [place] [address] Sep, [facility] [id number] [place] [address] Sep, [facility] [id number] [place] [address] Sep, COPD exacerbation 491.21 ; Chronic pain 338.29 ; Hypothyroidism 244.9 and Pancytopenia 284.19 [facility] [id number] [address] August, [facility] [id number], [place] [address] Jul, [facility] [id number] [place] [address] Jul, [facility] [id number], [place] [address] Jun, [facility] [id number] [place] [address] Jun, [facility] [place] [facility] [address] [id number] [place] [address] Jun, [facility] [place] [facility] [address] [id number] [place] [address] Jun, [facility] [place] [facility] [address] [facility] [id number] [place] [address] Jun, [facility] [place] [facility] [address] [id number] [place] [address] May, 2014 [facility] [place] [facility] [address] [id number] [place] [address] May, 2014 [facility] [place] [facility] [address] [id number] [place] [address] May, 2014 [facility] [place] [facility] [address] [facility] [id number] [place] [address] May, 2014 [facility] [place] [facility] [address] [facility] [id number] [place] [address] May, 2014 [facility] [place] [facility] [address] [facility] [id number] [place] [address] May, 2014 [facility] [place] [facility] [address] [facility] [id number] [place] [address] May, 2014 [facility] [place] [facility] [address] [facility] [id number] [place] [address] May, 2014 [facility] [place] [facility] [address] [facility] [id number] [place] [address] May, 2014 [facility] [place] [facility] [address] [facility] [id number] [place] [address] May, 2014 [facility] [place] [facility] [address] [facility] [id number] [place] [address] May, 2014 [facility] [place] [facility] [address] [facility] [id number] [place] [address] May, 2014 [facility] [place] [facility] [address] [id number] [place] [address] May, [facility] [place] [facility] [address] [id number] [place] [address] Apr, [facility] [place] [facility] [address] [id number] [place] [address] Apr, [facility] [place] [facility] [address] [id number] [place] [address] Apr, [facility] [place] [facility] [address] [id number] [place] [address] Apr, [facility] [place] [facility] [address] [id number] [place] [address] Apr, [facility] [place] [facility] [address] [id number] [place] [address] Apr, [facility] [place] [facility] [address] [id number] [place] [address] Apr, [facility] [place] [facility] [address] [id number] [place] [address] Mar, [facility] [place] [facility] [address] [id number] [place] [address] Mar, [facility] [place] [facility] [address] [id number] [place] [address] Mar, [facility] [place] [facility] [address] [id number] [place] [address] Mar, [facility] [place] [facility] [address] [id number] [place] [address] Mar, [facility] [place] [facility] [address] [id number] [place] [address] Mar, [facility] [place] [facility] [address] [id number] [place] [address] Feb, [facility] [place] [facility] [address] [id number] [place] [address] Feb, [facility] [place] [facility] [address] [id number] [place] [address] Feb, [facility] [place] [facility] [address] [id number] [place] [address] Feb, [facility] [place] [facility] [address] [id number] [place] [address] Feb, [facility] [place] [facility] [address] [id number] [place] [address] Feb, [facility] [place] [facility] [address] [id number] [place] [address] Jan, [facility] [place] [facility] [address] [id number] [place] [address] Jan, [facility] [place] [facility] [address] [id number] [place] [address] Jan, [facility] [place] [facility] [address] [id number] [place] [address] Jan, [facility] [place] [facility] [address] [id number] [place] [address] Jan, [facility] [place] [facility] [address] [id number], [place] [address] Jan, [facility] [place] [facility] [address] [id number], [place] [address] Jan, [facility] [place] [facility] [address] [id number], [place] [address] Jan, [facility] [place] [facility] [address] [id number] [place] [address] Dec, [facility] [place] [facility] [address] [id number], [place] [address] Dec, [facility] [place] [facility] [address] [id number] [place] [address] Dec, [facility] [place] [facility] [address] [id number] [place] [address] 23 Dec, 2013 [facility] [place] [facility] [address] [id number] [place] [address] 13 Dec, 2013 [facility] [place] [facility] [address] [id number] [place] [address] Dec, [facility] [place] [facility] [address] [id number] [place] [address] Dec, [facility] [place] [facility] [address] [id number] [place] [address] Nov, [facility] [place] [facility] [address] [id number] [place] [address] Nov, [facility] [place] [facility] [address] [id number] [place] [address] Oct, [facility] [place] [facility] [address] [id number] [place] [address] Oct, [facility] [place] [facility] [address] [id number] [place] [address] Oct, [facility] [place] [facility] [address] [id number] [place] [address] Oct, [facility] [place] [facility] [address] [id number] [place] [address] Sep, [facility] [place] [facility] [address] [id number] [place] [address] Sep, [facility] [place] [facility] [address] [id number] [place] [address] Sep, [facility] [place] [facility] [address] [id number] [place] [address] Sep, [facility] [place] [facility] [address] [id number] [place] [address] Sep, [facility] [place] [facility] [address] [id number] [place] [address] Sep, [facility] [place] [facility] [address] [id number] [place] [address] Sep, [facility] [place] [facility] [address] [id number] [place] [address] Sep, [facility] [place] [facility] [address] [id number] [place] [address] August, [facility] [place] [facility] [address] [id number] [place] [address] August, [facility] [place] [facility] [address] [id number] [place] [address] August, [facility] [place] [facility] [address] [id number] [place] [address] August, [facility] [place] [facility] [address] [id number] [place] [address] Jul, [facility] [place] [facility] [address] [id number] [place] [address] Jul, [facility] [place] [facility] [address] [id number] [place] [address] Jul, [facility] [place] [facility] [address] [id number] [place] [address] Jul, [facility] [place] [facility] [address] [id number] [place] [address] 17 Jul, 2013 [facility] [place] [facility] [address] [id number] [place] [address] 16 Jul, 2013 [facility] [place] [facility] [address] [id number] [place] [address] 15 Jul, 2013 [facility] [place] [facility] [address] [id number] [place] [address] 15 Jul, 2013 [facility] [place] [facility] [address] [id number] [place] [address] 18 Jun, 2013 [facility] [place] [facility] [address] [id number] [place] [address] Jun, [facility] [place] [facility] [address] [id number] [place] [address] Jun, [facility] [place] [facility] [address] [id number] [place] [address] Jun, [facility] [place] [facility] [address] [id number] [place] [address] Jun, [facility] [place] [facility] [address] [id number] [place] [address] Jun, [facility] [place] [facility] [address] [id number] [place] [address] Jun, [facility] [place] [facility] [address] [id number] [place] [address] Jun, [facility] [place] [facility] [address] [id number] [place] [address] May, [facility] [place] [facility] [address] [id number] [place] [address] May, [facility] [place] [facility] [address] [id number] [place] [address] Apr, [facility] [place] [facility] [address] [id number] [place] [address] Apr, [facility] [place] [facility] [address] [id number] [place] [address] Mar, [facility] [place] [facility] [address] [id number] [place] [address] 24 Mar, 2013 [facility] [place] [facility] [address] [id number] [place] [address] Mar, [facility] [place] [facility] [address] [id number] [place] [address] Mar, [facility] [place] [facility] [address] [id number] [place] [address] Mar, [facility] [place] [facility] [address] [id number] [place] [address] Mar, [facility] [address] [id number] [place] [address] Mar, [facility] [place] [facility] [address] [id number] [place] [address] Feb, [facility] [address] [id number] [place] [address] Feb, [facility] [place] [facility] [address] [id number] [place] [address] Feb, [facility] [address] [id number] [place] [address] Feb, [facility] [place] [facility] [address] [id number] [place] [address] Feb, [facility] [place] [facility] [address] [id number] [place] [address] Feb, [facility] [address] [id number] [place] [address] 26 Dec, 2012 [facility] [place] [facility] [address] [id number] [place] [address] 18 Dec, 2012 [facility] [place] [facility] [address] [id number] [place] [address] 13 Dec, 2012 [facility] [place] [facility] [address] [id number] [place] [address] 13 Dec, 2012 [facility] [place] [facility] [address] [id number] [place] [address] 06 Dec, 2012 [facility] [place] [facility] [address] [id number] [place] [address] Nov, [facility] [place] [facility] [address] [id number] [place] [address] Nov, [facility] [place] [facility] [address] [id number] [place] [address] Oct, [facility] [address] [id number] [place] [address] August, [facility] [place] [facility] [address] [id number] [place] [address] August, [facility] [address] [id number] [place] [address] August, [facility] [place] [facility] [address] [id number] [place] [address] Jul, [facility] [address] [id number] [place] [address] Jul, [facility] [address] [id number] [place] [address] Jul, [facility] [address] [id number] [place] [address] Jun, [facility] [address] [id number] [place] [address] Jun, [facility] [address] [id number] [place] [address] Jun, [facility] [place] [facility] [address] [id number] [place] [address] Jun, [facility] [place] [facility] [address] [id number] [place] [address] Jun, [facility] [place] [facility] [address] [id number], [place] [address] 15 Jun, 2012 [facility] [place] [facility] [address] [id number] [place] [address] Jun, [facility] [place] [facility] [address] [id number] [place] [address] May, [facility] [place] [facility] [address] [id number] [place] [address] May, [facility] [place] [facility] [address] [id number] [place] [address] 06 May, 2012 [facility] [address] [id number] [place] [address] 05 May, 2012 [facility] [address] [id number] [place] [address] Apr, [facility] [address] [id number] [place] [address] Apr, [facility] [address] [id number] [place] [address] Apr, [facility] [address] [id number] [place] [address] Mar, [facility] [address] [id number] [place] [address] Mar, [facility] [address] [id number] [place] [address] Mar, [facility] [address] [id number] [place] [address] Mar, [facility] [address] [id number] [place] [address] Mar, [facility] [address] [facility] [id number] [place] [address] Mar, [facility] [address] [id number] [place] [address] Mar, [facility] [address] [id number] [place] [address] Mar, [facility] [address] [id number] [place] [address] Feb, [facility] [address] [id number] [place] [address] Feb, [facility] [address] [id number] [place] [address] Feb, [facility] [place] [facility] [address] [id number] [place] [address] Jan, [facility] [place] [facility] [address] [id number] [place] [address] Jan, [facility] [place] [facility] [address] [id number] [place] [address] Jan, [facility] [place] [facility] [address] [id number] [place] [address] Jan, [facility] [place] [facility] [address] [id number] [place] [address] Jan, [facility] [place] [facility] [address] [id number] [place] [address] Jan, [facility] [place] [facility] [address] [id number] [place] [address] Jan, [facility] [place] [facility] [address] [id number] [place] [address] Dec, [facility] [place] [facility] [address] [id number] [place] [address] 24 Dec, 2011 [facility] [place] [facility] [address] [id number] [place] [address] Dec, [facility] [place] [facility] [address] [id number] [place] [address] Nov, [facility] [place] [facility] [address] [id number], [place] [address] Nov, [facility] [place] [facility] [address] [id number] [place] [address] Nov, [facility] [place] [facility] [address] [id number] [place] [address] Nov, [facility] [place] [facility] [address] [id number], [place] [address] Oct, [facility] [place] [facility] [address] [id number], [place] [address] 05 Oct, 2011 [facility] [place] [facility] [address] [id number] [place] [address] Oct, [facility] [place] [facility] [address] [id number] [place] [address] Sep, [facility] [place] [facility] [address] [id number] [place] [address] 16 Sep, 2011 [facility] [place] [facility] [address] [id number] [place] [address] Sep, [facility] [place] [facility] [address] [id number] [place] [address] Sep, [facility] [place] [facility] [address] [id number] [place] [address] Sep, [facility] [place] [facility] [address] [id number] [place] [address] Sep, [facility] [place] [facility] [address] [id number] [place] [address] August, [facility] [place] [facility] [address] [id number] [place] [address] Jul, [facility] [place] [facility] [address] [id number] [place] [address] Jul, [facility] [place] [facility] [address] [id number] [place] [address] Jul, [facility] [place] [facility] [address] [id number] [place] [address] Jul, [facility] [place] [facility] [address] [id number] [place] [address] Jul, [facility] [place] [facility] [address] [id number] [place] [address] Jun, [facility] [place] [facility] [address] [id number] [place] [address] Jun, [facility] [place] [facility] [address] [id number] [place] [address] 15 Jun, 2011 [facility] [address] [id number] [place] [address] 15 Jun, 2011 [facility] [place] [facility] [address] [id number] [place] [address] 09 Jun, 2011 [facility] [place] [facility] [address] [id number] [place] [address] May, [facility] [place] [facility] [address] [id number] [place] [address] May, [facility] [place] [facility] [address] [id number] [place] [address] May, [facility] [address] [id number] [place] [address] May, [facility] [place] [facility] [address] [id number] [place] [address] May, [facility] [place] [facility] [address] [id number] [place] [address] May, [facility] [address] [facility] [id number] [place] [address] May, [facility] [place] [facility] [address] [facility] [id number] [place] [address] Apr, [facility] [address] [id number] [place] [address] Mar, [facility] [place] [facility] [address] [id number] [place] [address] Mar, [facility] [place] [facility] [address] [id number] [place] [address] Mar, [facility] [place] [facility] [address] [id number] [place] [address] Mar, [facility] [place] [facility] [address] [id number], [place] [address] 08 Mar, 2011 [facility] [place] [facility] [address] [id number] [place] [address] Feb, [facility] [place] [facility] [address] [id number] [place] [address] Feb, [facility] [place] [facility] [address] [id number] [place] [address] Feb, [facility] [place] [facility] [address] [id number] [place] [address] 14 Feb, 2011 [facility] [place] [facility] [address] [id number] [place] [address] Feb, [facility] [place] [facility] [address] [id number] [place] [address] Feb, [facility] [place] [facility] [address] [id number] [place] [address] Feb, [facility] [place] [facility] [address] [id number] [place] [address] Jan, [facility] [place] [facility] [address] [id number] [place] [address] Dec, [facility] [place] [facility] [address] [id number] [place] [address] Oct, [facility] [place] [facility] [address] [id number], [place] [address] Jun, [facility] [place] [facility] [address] [id number] [place] [address] Mar, [facility] [place] [facility] [address] [id number] [place] [address] Mar, [facility] [place] [facility] [address] [id number] [place] [address] Mar, [facility] [place] [facility] [address] [id number] [place] [address] Mar, [facility] [place] [facility] [address] [id number] [place] [address] 15 Mar, 2010 [facility] [address] [id number] [place] [address] 10 Mar, 2010 [facility] [address] [id number] [place] [address] 10 Mar, 2010 [facility] [address] [id number] [place] [address] 05 Mar, 2010 [facility] [address] [id number] [place] [address] 03 Mar, 2010 [facility] [address] [id number] [place] [address] 02 Mar, 2010 [facility] [address] [id number] [place] [address] Jan, [facility] [address] [id number] [place] [address] Jan, [facility] [address] [id number] [place] [address] Jan, [facility] [address] [id number] [place] [address] Nov, [facility] [address] [id number] [place] [address] Oct, [facility] [address] [id number] [place] [address] 31 Mar, 2009 [facility] [address] [id number] [place] [address] 20 Mar, 2009 [facility] [place] [facility] [address] [id number] [place] [address] 17 Mar, 2009 [facility] [address] [id number] [place] [address] 17 Mar, 2009 [facility] [address] [id number] [place] [address] Dec, [facility] [address] [facility] [id number], [place] [address] August, [facility] [address] [facility] [id number], [place] [address] August, [facility] [address] [facility] [id number], [place] [address] Jul, [facility] [address] [facility] [id number], [place] [address] Jan, [facility] [address] [facility] [id number], [place] [address] Jan, IMMUNIZATIONS No Known Immunizations SOCIAL HISTORY Never Assessed REASON FOR VISIT PLAN OF CARE VITAL SIGNS MEDICATIONS Medication [...] surgeries Hospitalization History multiple hospital stays for [facility]
[2018-09-22] MEDS ORDERED: ONDANSETRON 4 MG/2 ML (SDV) Z0FRAN IVP ONE (03:00)
[2018-09-22] MEDS ORDERED: LACTATED RINGERS 1,000 ML IV ONE (03:00)
--- OUTSIDE RECORDS SUMMARY | 2018-09-22 03:00 | XMS REPORT ---
Author Author FLORENTINEZEKIEL PUCKETT Organization [facility] Address [address] [place] [address] Care Team Providers Care Drafting Supervisor Name Role Phone DANICA LERMAY Unavailable PROBLEMS Type Condition ICD9-CM Code BWH90-DI Code Onset Dates Condition Status SNOMED Code Problem Chronic gastritis without bleeding, unspecified gastritis type K29.50 Active 7198320 Problem Vitamin D deficiency E55.9 Active 06005480 Problem Osteoporosis M81.0 Active 80310243 Problem Unspecified abdominal pain R10.9 Active 606923899 Problem Fibromyalgia M79.7 Active 83620280 Problem Chronic pain syndrome G89.4 Active 063421487 Problem Trigger point with back pain M54.9 Active 242688729 Problem Chronic tension-type headache, not intractable G44.229 Active 505825654 Problem RUQ abdominal pain R10.11 Active 207997247 Problem Pancytopenia D61.818 Active 176936653 Problem Right sided sciatica M54.31 Active 33232503 Problem Chronic prescription opiate use Z79.891 Active 892848536 Problem Drug induced constipation K59.03 Active 379126633306957 Problem Leukopenia, unspecified type D72.819 Active 21128926 Problem Atrial fibrillation, unspecified type I48.91 Active 63443488 Problem Allergic rhinitis, unspecified allergic rhinitis type J30.9 Active 87772636 Problem Chronic obstructive pulmonary disease, unspecified COPD type J44.9 Active 95173995 Problem Hypothyroidism, unspecified hypothyroidism type E03.9 Active 23797127 Problem Other constipation K59.09 Active 586245655 Problem Porokeratosis Q82.8 Active 816317246 Problem 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 Active 991552116 Problem Allergy to intravenous contrast Z91.041 Active 139823667 Problem Vaginal atrophy N95.2 Active 516410264 Problem Major depression, recurrent F33.9 Active 11871501 Problem History of hepatitis C Z86.19 Active 02213181483970 Problem Hot flashes N95.1 Active 001191654 Problem Plantar fasciitis M72.2 Active 558673648 Problem Polyneuropathy associated with underlying disease G63 Active 539225685 Problem Primary insomnia F51.01 Active 8554343 Problem Low back pain M54.5 Active 943653496 ALLERGIES Substance Reaction Event Type Date Status Diazepam Unknown Drug Allergy Jul, Active CT Dye Unknown Non Drug Allergy Jul, Active ENCOUNTERS Encounter Location Date Diagnosis [facility] [id number] [place] [address] Nov, [facility] [id number] [place] [address] Nov, [facility] [id number] [place] [address] Oct, Hypothyroidism, unspecified hypothyroidism type E03.9 and Atrial fibrillation, unspecified type I48.91 [facility] [id number] [place] [address] Oct, Fibromyalgia M79.7 ; Chronic pain syndrome G89.4 ; Hypothyroidism, unspecified hypothyroidism type E03.9 ; Overweight (BMI 25.0-29.9) E66.3 and Atrial fibrillation, unspecified type I48.91 [facility] [id number] [place] [address] Oct, Chronic pain syndrome G89.4 [facility] [id number] [place] [address] Sep, Chronic pain syndrome G89.4 [facility] [id number] [place] [address] August, Somatic dysfunction of lumbar region M99.03 and Somatic dysfunction of pelvis region M99.05 [facility] [id number] [place] [address] August, Chronic pain syndrome G89.4 [facility] [id number] [place] [address] Jul, Trochanteric bursitis of left hip M70.62 and Trochanteric bursitis, right hip M70.61 [facility] [id number] [place] [address] Jul, [facility] [id number] [place] [address] Jul, Chronic pain syndrome G89.4 [facility] [id number] [place] [address] Jul, Hypothyroidism, unspecified hypothyroidism type E03.9 [facility] [id number] [place] [address] Jul, Hypothyroidism, unspecified hypothyroidism type E03.9 [facility] [id number] [place] [address] Jul, Chronic tension-type headache, not intractable G44.229 ; Atrial fibrillation, unspecified type I48.91 ; Chronic pain syndrome G89.4 ; Hypothyroidism, unspecified hypothyroidism type E03.9 ; Pancytopenia D61.818 ; History of hepatitis C Z86.19 ; Vaginal atrophy N95.2 ; RUQ abdominal pain R10.11 ; Chronic prescription opiate use Z79.891 ; Osteoporosis M81.0 and Screening for breast cancer Z12.31 [facility] [address] [place] [address] Jun, [facility] [id number] [place] [address] May, [facility] [id number] [place] [address] May, [facility] [id number] [place] [address] May, [facility] [id number] [place] [address] Apr, [facility] [id number] [place] [address] Apr, Hypothyroidism, unspecified hypothyroidism type E03.9 [facility] [id number] [place] [address] Apr, Hypothyroidism, unspecified hypothyroidism type E03.9 and Leukopenia, unspecified type D72.819 [facility] [address] [address] Mar, [facility] [address] [address] Mar, Leukopenia, unspecified type D72.819 [facility] [address] [address] Mar, Hypothyroidism, unspecified hypothyroidism type E03.9 and Low hemoglobin D64.9 [facility] [address] [address] Mar, Hypothyroidism, unspecified hypothyroidism type E03.9 [facility] [address] [address] Mar, Osteoporosis M81.0 ; Low hemoglobin D64.9 and Hypothyroidism, unspecified hypothyroidism type E03.9 [facility] [address] [address] Mar, Hypothyroidism, unspecified hypothyroidism type E03.9 ; Bilirubin in urine R82.2 and Pancytopenia D61.818 [facility] [id number] [place] [address] Feb, [facility] [id number] [place] [address] 18 Feb, 2017 Cough R05 and Bronchitis J40 [facility] [address] [place] [address] 14 Feb, 2017 Other viral agents as the cause of diseases classified elsewhere B97.89 and Acute upper respiratory infection, unspecified J06.9 [facility] [address] [address] Feb, Fibromyalgia M79.7 ; Chronic pain syndrome G89.4 ; Hypothyroidism, unspecified hypothyroidism type E03.9 ; Primary insomnia F51.01 ; Osteoporosis M81.0 ; Vision abnormalities H53.9 ; Pancytopenia D61.818 ; BMI 28.0-28.9,adult Z68.28 and Encounter for immunization Z23 [facility] [address] [address] Feb, Neuroma D36.10 and Capsulitis of right foot M77.51 [facility] [address] [address] Feb, [facility] [address] [address] Feb, Hypothyroidism, unspecified hypothyroidism type E03.9 [facility] [address] [address] Jan, [facility] [address] [address] Jan, Atrial fibrillation, unspecified type I48.91 [facility] [address] [address] Jan, [facility] [id number] [place] [address] Jan, Fibromyalgia M79.7 ; Atrial fibrillation, unspecified type I48.91 ; Pain of left hand M79.642 ; Pain in right hand M79.641 ; Chronic prescription opiate use Z79.891 ; Chronic pain syndrome G89.4 ; Elevated fasting glucose R73.01 and Hypothyroidism, unspecified hypothyroidism type E03.9 [facility] [id number] [place] [address] Jan, [facility] [id number] [place] [address] Dec, Trochanteric bursitis of both hips M70.61 [facility] [id number] [place] [address] Dec, [facility] [id number] [place] [address] Dec, [facility] [id number] [place] [address] Nov, [facility] [id number] [place] [address] Nov, Unilateral headache R51 [facility] [address] [address] Nov, [facility] [address] [address] Oct, Unilateral headache R51 ; 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 and Allergy to intravenous contrast Z91.041 [facility] [address] [address] Oct, [facility] [id number] [place] [address] Oct, [facility] [address] [address] Sep, Hypothyroidism, unspecified hypothyroidism type E03.9 [facility] [id number] [place] [address] Sep, Hypothyroidism, unspecified hypothyroidism type E03.9 and Bilirubin in urine R82.2 [facility] [id number] [place] [address] Sep, Trochanteric bursitis of both hips M70.61 [facility] [address] [address] Sep, Hypothyroidism, unspecified hypothyroidism type E03.9 ; Dysuria R30.0 ; Chronic tension-type headache, not intractable G44.229 and Drug induced constipation K59.03 [facility] [address] [place] [address] Sep, [facility] [id number] [place] [address] Sep, [facility] [id number] [place] [address] August, [facility] [id number] [place] [address] Jul, [facility] [id number] [place] [address] Jul, Trochanteric bursitis of right hip M70.61 [facility] [id number] [place] [address] Jul, Hypothyroidism, unspecified hypothyroidism type E03.9 [facility] [id number] [place] [address] Jul, Fibromyalgia M79.7 ; Chronic pain syndrome G89.4 ; Hypothyroidism, unspecified hypothyroidism type E03.9 and Other constipation K59.09 [facility] [id number] [place] [address] Jun, Swollen tonsil J35.1 and Strep throat J02.0 [facility] [id number] [place] [address] Jun, [facility] [id number] [place] [address] Jun, Acute maxillary sinusitis J01.00 [facility] [id number] [place] [address] Jun, Hypothyroidism, unspecified hypothyroidism type E03.9 [facility] [id number] [place] [address] Jun, Chronic pain syndrome G89.4 ; Fibromyalgia M79.7 ; Hypothyroidism, unspecified hypothyroidism type E03.9 and Chronic prescription opiate use Z79.891 [facility] [id number] [address] 10 May, 2016 [facility] [id number] [place] [address] Apr, Hypothyroidism, unspecified hypothyroidism type E03.9 [facility] [id number] [place] [address] Apr, [facility] [id number] [place] [address] Apr, Lipid screening Z13.220 and Hypothyroidism, unspecified hypothyroidism type E03.9 [facility] [id number] [place] [address] Apr, [facility] [id number] [place] [address] Mar, Trochanteric bursitis of both hips M70.61 [place] [id number] [place] [address] Mar, [facility] [id number] [place] [address] Mar, Plantar fasciitis M72.2 and Porokeratosis Q82.8 [facility] [id number] [place] [address] Feb, Lipid screening Z13.220 ; Vitamin D deficiency E55.9 and Hypothyroidism, unspecified hypothyroidism type E03.9 [facility] [address] [place] [address] 16 Feb, 2016 Chronic pain syndrome G89.4 ; Hypothyroidism, unspecified hypothyroidism type E03.9 ; Pancytopenia D61.818 ; Vaginal atrophy N95.2 ; Chronic gastritis without bleeding, unspecified gastritis type K29.50 ; Vitamin D deficiency E55.9 ; Chronic prescription opiate use Z79.891 ; Adverse effect of other opioids, initial encounter T40.2X5A ; Drug induced constipation K59.03 ; Lipid screening Z13.220 and Encounter for immunization Z23 [facility] [facility] [address] [address] Feb, [facility] [id number] [place] [address] Feb, Ingrown toenail L60.0 [facility] [address] [place] [address] Jan, [facility] [id number] [place] [address] Jan, Trochanteric bursitis of both hips M70.61 [facility] [id number] [place] [address] Jan, [facility] [id number] [place] [address] Jan, [facility] [id number] [place] [address] Jan, [facility] [id number] [place] [address] Jan, Right sided sciatica M54.31 [facility] [id number] [place] [address] Dec, Onychomycosis B35.1 [facility] [address] [address] Dec, [facility] [address] [place] [address] Dec, [facility] [address] [place] [address] Dec, [facility] [id number] [place] [address] Dec, Osteoarthritis of right hip, unspecified osteoarthritis type M16.11 and Bursitis of right hip M70.71 [facility] [address] [place] [address] Nov, [facility] [address] [address] Nov, [facility] [id number] [place] [address] Nov, [facility] [id number] [place] [address] Nov, Hypothyroidism, unspecified hypothyroidism type E03.9 ; Vitamin D deficiency E55.9 and History of hepatitis C Z86.19 [facility] [id number] [place] [address] Nov, Right upper quadrant pain R10.11 ; History of hepatitis C Z86.19 and Low back pain M54.5 [facility] [id number] [place] [address] Oct, Trochanteric bursitis, right hip M70.61 [facility] [id number] [place] [address] Oct, [facility] [id number] [place] [address] Oct, [facility] [id number] [place] [address] Oct, Trochanteric bursitis of both hips M70.61 and Right sided sciatica M54.31 [facility] [id number] [place] [address] Oct, Trochanteric bursitis of both hips M70.61 [facility] [address] [place] [address] 14 Oct, 2015 RUQ abdominal pain R10.11 [facility] [id number] [place] [address] 13 Oct, 2015 Sciatic leg pain M54.30 [facility] [id number] [place] [address] Oct, RUQ abdominal pain R10.11 [facility] [facility] [id number] [place] [address] 07 Oct, 2015 RUQ abdominal pain R10.11 ; History of hepatitis C Z86.19 and Trigger point with back pain M54.9 [facility] [id number] [place] [address] Sep, [facility] [address] [address] Sep, Right sided sciatica M54.31 [facility] [id number] [place] [address] Sep, Hypothyroidism, unspecified hypothyroidism type E03.9 and Vitamin D deficiency E55.9 [facility] [id number] [place] [address] Sep, Plantar fasciitis M72.2 and Porokeratosis Q82.8 [facility] [id number] [place] [address] Sep, Hypothyroidism, unspecified hypothyroidism type E03.9 ; Chronic pain syndrome G89.4 ; Polyneuropathy associated with underlying disease G63 and Vitamin D deficiency E55.9 [facility] [id number] [place] [address] August, [facility] [id number] [place] [address] Jul, Plantar fasciitis M72.2 [facility] [id number] [place] [address] Jul, Trochanteric bursitis, right hip M70.61 [facility] [id number] [place] [address] Jul, Hypothyroidism, unspecified hypothyroidism type E03.9 [facility] [id number] [place] [address] Jul, Hypothyroidism, unspecified hypothyroidism type E03.9 ; Chronic pain syndrome G89.4 and Polyneuropathy associated with underlying disease G63 [place] [id number] [place] [address] 10 Jun, 2015 Trochanteric bursitis of both hips M70.61 [facility] [id number] [place] [address] 08 Jun, 2015 Vitamin D deficiency E55.9 ; Osteoporosis M81.0 ; Low back pain M54.5 and Plantar fasciitis M72.2 [place] [id number] [place] [address] 26 May, 2015 Vitamin D deficiency E55.9 and Hypothyroidism, unspecified hypothyroidism type E03.9 [facility] [id number] [place] [address] 23 May, 2015 Acute maxillary sinusitis J01.00 [place] [address] [address] 18 May, 2015 Osteoporosis M81.0 and Hypothyroidism, unspecified hypothyroidism type E03.9 [facility] [id number] [place] [address] 16 May, 2015 Osteoporosis M81.0 [place] [id number] [place] [address] 15 May, 2015 [place] [id number] [place] [address] Apr, [place] [id number] [place] [address] Apr, Trochanteric bursitis of both hips M70.61 [place] [address] [address] Apr, Hypothyroidism, unspecified hypothyroidism type E03.9 [place] [id number] [place] [address] Apr, Chronic pain syndrome G89.4 ; Bilateral low back pain with sciatica, sciatica laterality unspecified M54.40 ; Pain in right hip M25.551 ; Pain in left hip M25.552 ; Chronic prescription opiate use Z79.899 ; Primary insomnia F51.01 and Hypothyroidism, unspecified hypothyroidism type E03.9 [facility] [id number] [place] [address] Mar, [place] [address] [address] Feb, [place] [address] [address] Feb, Chronic pain syndrome G89.4 and Major depression F32.9 [place] [address] [address] Feb, Fatigue R53.83 [place] [address] [address] Feb, History of fracture Z87.81 [place] [address] [address] Feb, Major depression, recurrent F33.9 and Generalized anxiety disorder F41.1 [place] [id number] [place] [address] Feb, [place] [id number] [place] [address] Jan, Hypothyroidism, unspecified hypothyroidism type E03.9 [place] [id number] [place] [address] Jan, Abdominal pain R10.9 and Hypothyroidism, unspecified hypothyroidism type E03.9 [place] [id number] [place] [address] Jan, Abdominal pain R10.9 [place] [id number] [place] [address] Jan, Hypothyroidism, unspecified hypothyroidism type E03.9 [place] [id number] [place] [address] Jan, [address] [address] Jan, 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.419 and Hypothyroidism, unspecified hypothyroidism type E03.[address] [address] Jan, 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.419 ; Abdominal pain R10.9 ; Dyspareunia N94.1 ; Encounter for immunization Z23 ; History of fracture Z87.81 ; Fatigue R53.83 ; Throat fullness R68.89 ; Bruises easily R23.8 ; Hot flashes N95.1 ; Depression F32.9 and Vaginal atrophy N95.[address] [address] Jan, Hypothyroidism, unspecified hypothyroidism type E03.[address] [address] Jan, Unspecified abdominal pain R10.9 ; Chronic obstructive pulmonary disease, unspecified COPD type J44.9 ; Allergic rhinitis, unspecified allergic rhinitis type J30.9 ; Chronic pain syndrome G89.4 ; Hypothyroidism, unspecified hypothyroidism type E03.9 ; Chest pain, unspecified chest pain type R07.9 and Plantar fasciitis M72.2 [place] [id number] [place] [address] Jan, Trochanteric bursitis of both hips M70.[address] [address] Dec, [address] [address] Nov, [address] [address] Nov, [facility] [id number] [place] [address] Nov, Constipation 564.00 [facility] [id number] [place] [address] Oct, Chronic pain 338.29 and Hypothyroidism 244.9 [facility] [id number] [place] [address] Oct, [facility] [id number] [place] [address] Sep, [facility] [id number] [place] [address] Sep, [facility] [id number] [place] [address] Sep, [facility] [id number] [place] [phone] Sep, [facility] [id number] [place] [phone] Sep, [facility] [id number] [place] [id number] Sep, [facility] [id number] [place] [id number] Sep, COPD exacerbation 491.21 ; Chronic pain 338.29 ; Hypothyroidism 244.9 and Pancytopenia 284.19 [facility] [id number] [address] August, [facility] [id number] [place] [id number] Jul, [facility] [id number] [place] [phone] Jul, [facility] [id number] [place] [phone] Jun, [facility] [place] [facility] [id number] [place] [address] Jun, [facility] [place] [facility] [address] [id number] [place] [address] Jun, [facility] [place] [facility] [address] [id number] [place] [address] Jun, [facility] [place] [facility] [address] [id number] [place] [address] Jun, [facility] [place] [facility] [address] [id number] [place] [address] May, 2014 [facility] [place] [facility] [address] [id number] [place] [address] May, 2014 [facility] [place] [facility] [address] [facility] [id number] [place] [address] May, 2014 [facility] [place] [facility] [address] [id number] [place] [address] May, 2014 [facility] [place] [facility] [address] [id number] [place] [address] May, [facility] [place] [facility] [address] [facility] [id number] [place] [address] May, [facility] [place] [facility] [address] [facility] [id number] [place] [address] May, 2014 [facility] [place] [facility] [address] [id number] [place] [address] May, 2014 [facility] [place] [facility] [address] [id number] [place] [address] May, [facility] [place] [facility] [address] [id number] [place] [address] May, [facility] [place] [facility] [address] [facility] [id number] [place] [address] May, 2014 [facility] [place] [facility] [address] [id number] [place] [address] 04 May, 2014 [facility] [place] [facility] [address] [id number] [place] [address] May, [facility] [place] [facility] [address] [id number] [place] [address] Apr, [facility] [place] [facility] [address] [id number] [place] [address] Apr, [facility] [place] [facility] [address] [id number] [place] [address] Apr, [facility] [place] [facility] [address] [id number] [place] [address] Apr, [facility] [place] [facility] [address] [id number] [place] [address] Apr, [facility] [place] [facility] [address] [facility] [id number] [place] [address] Apr, [facility] [place] [facility] [address] [id number] [place] [address] Apr, [facility] [place] [facility] [address] [id number] [place] [address] Mar, [facility] [place] [facility] [address] [facility] [id number] [place] [address] 31 Mar, 2014 [facility] [place] [facility] [address] [id number] [place] [address] 18 Mar, 2014 [facility] [place] [facility] [address] [id number] [place] [address] 18 Mar, 2014 [facility] [place] [facility] [address] [id number] [place] [address] 17 Mar, 2014 [facility] [place] [facility] [address] [facility] [id number] [place] [address] 17 Mar, 2014 [facility] [place] [facility] [address] [id number] [place] [address] Feb, [facility] [place] [facility] [address] [id number] [place] [address] Feb, [facility] [place] [facility] [address] [id number] [place] [address] Feb, [facility] [place] [facility] [address] [id number] [place] [address] Feb, [facility] [place] [facility] [address] [id number] [place] [address] Feb, [facility] [place] [facility] [address] [id number] [place] [address] Feb, [facility] [place] [facility] [address] [id number] [place] [address] Jan, [facility] [place] [facility] [address] [id number] [place] [address] Jan, [facility] [place] [facility] [address] [id number] [place] [address] Jan, [facility] [place] [facility] [address] [id number] [place] [address] Jan, [facility] [place] [facility] [address] [id number] [place] [address] Jan, [facility] [place] [facility] [address] [id number] [place] [address] Jan, [facility] [place] [facility] [address] [id number], [place] [address] Jan, [facility] [place] [facility] [address] [id number] [place] [address] Jan, [facility] [place] [facility] [address] [id number] [place] [address] Dec, [facility] [place] [facility] [address] [id number] [place] [address] Dec, [facility] [place] [facility] [address] [id number] [place] [address] Dec, [facility] [place] [facility] [address] [id number] [place] [address] Dec, [facility] [place] [facility] [address] [id number] [place] [address] Dec, [facility] [place] [facility] [address] [id number] [place] [address] Dec, [facility] [place] [facility] [address] [id number] [place] [address] Dec, [facility] [place] [facility] [address] [id number] [place] [address] Nov, [facility] [place] [facility] [address] [id number] [place] [address] Nov, [facility] [place] [facility] [address] [id number] [place] [address] Oct, [facility] [place] [facility] [address] [id number] [place] [address] Oct, [facility] [place] [facility] [address] [id number] [place] [address] Oct, [facility] [place] [facility] [address] [id number] [place] [address] Oct, [facility] [place] [facility] [address] [id number] [place] [address] Sep, [facility] [place] [facility] [address] [id number] [place] [address] Sep, [facility] [place] [facility] [address] [id number] [place] [address] Sep, [facility] [place] [facility] [address] [id number] [place] [address] Sep, [facility] [place] [facility] [address] [id number] [place] [address] Sep, [facility] [place] [facility] [address] [id number] [place] [address] Sep, [facility] [address] [id number] [place] [address] Sep, [facility] [place] [facility] [address] [id number] [place] [address] Sep, [facility] [address] [id number] [place] [address] August, [facility] [place] [facility] [address] [id number] [place] [address] August, [facility] [address] [id number] [place] [address] August, [facility] [place] [facility] [address] [id number] [place] [address] August, [facility] [place] [facility] [address] [id number] [place] [address] Jul, [facility] [address] [id number] [place] [address] Jul, [facility] [place] [facility] [address] [id number] [place] [address] Jul, [facility] [address] [id number] [place] [address] 24 Jul, 2013 [facility] [place] [facility] [address] [id number] [place] [address] 17 Jul, 2013 [facility] [place] [facility] [address] [id number] [place] [address] 16 Jul, 2013 [facility] [place] [facility] [address] [id number] [place] [address] 15 Jul, 2013 [facility] [place] [facility] [address] [id number] [place] [address] 15 Jul, 2013 [facility] [place] [facility] [address] [id number] [place] [address] Jun, [facility] [place] [facility] [address] [id number] [place] [address] 18 Jun, 2013 [facility] [place] [facility] [address] [id number] [place] [address] Jun, [facility] [place] [facility] [address] [id number] [place] [address] Jun, [facility] [place] [facility] [address] [id number] [place] [address] Jun, [facility] [place] [facility] [address] [id number] [place] [address] Jun, [facility] [place] [facility] [address] [id number] [place] [address] Jun, [facility] [place] [facility] [address] [id number] [place] [address] Jun, [facility] [place] [facility] [address] [id number] [place] [address] May, [facility] [place] [facility] [address] [id number] [place] [address] May, [facility] [place] [facility] [address] [id number] [place] [address] Apr, [facility] [place] [facility] [address] [id number] [place] [address] Apr, [facility] [place] [facility] [address] [id number] [place] [address] Mar, [facility] [place] [facility] [address] [id number] [place] [address] Mar, [facility] [place] [facility] [address] [id number] [place] [address] Mar, [facility] [place] [facility] [address] [id number] [place] [address] Mar, [facility] [place] [facility] [address] [id number] [place] [address] 18 Mar, 2013 [facility] [address] [id number] [place] [address] 17 Mar, 2013 [facility] [place] [facility] [address] [id number] [place] [address] Mar, [facility] [place] [facility] [address] [id number] [place] [address] Feb, [facility] [place] [facility] [address] [id number] [place] [address] Feb, [facility] [place] [facility] [address] [id number] [place] [address] Feb, [facility] [place] [facility] [address] [id number] [place] [address] Feb, [facility] [place] [facility] [address] [id number] [place] [address] Feb, [facility] [place] [facility] [address] [id number] [place] [address] Feb, [facility] [place] [facility] [address] [id number] [place] [address] 26 Dec, 2012 [facility] [place] [facility] [address] [id number] [place] [address] 18 Dec, 2012 [facility] [place] [facility] [address] [id number] [place] [address] 13 Dec, 2012 [facility] [place] [facility] [address] [id number] [place] [address] 13 Dec, 2012 [facility] [place] [facility] [address] [id number] [place] [address] 06 Dec, 2012 [facility] [place] [facility] [address] [id number] [place] [address] 30 Nov, 2012 [facility] [place] [facility] [address] [id number] [place] [address] 08 Nov, 2012 [facility] [place] [facility] [address] [id number] [place] [address] Oct, [facility] [address] [id number] [place] [address] August, [facility] [address] [id number] [place] [address] August, [facility] [address] [id number] [place] [address] August, [facility] [address] [id number] [place] [address] Jul, [facility] [address] [id number] [place] [address] Jul, [facility] [address] [id number] [place] [address] Jul, [facility] [address] [id number] [place] [address] Jun, [facility] [address] [id number] [place] [address] Jun, [facility] [address] [id number] [place] [address] Jun, [facility] [address] [id number] [place] [address] Jun, [facility] [address] [id number] [place] [address] Jun, [facility] [address] [id number] [place] [address] Jun, [facility] [place] [facility] [address] [id number] [place] [address] Jun, [facility] [place] [facility] [address] [id number] [place] [address] May, [facility] [place] [facility] [address] [id number] [place] [address] May, [facility] [address] [id number] [place] [address] May, [facility] [address] [id number] [place] [address] May, [facility] [address] [id number] [place] [address] Apr, [facility] [address] [id number] [place] [address] Apr, [facility] [address] [id number] [place] [address] Apr, [facility] [address] [id number] [place] [address] Mar, [facility] [address] [id number] [place] [address] Mar, [facility] [address] [id number] [place] [address] Mar, [facility] [address] [id number] [place] [address] Mar, [facility] [address] [id number] [place] [address] Mar, [facility] [address] [id number] [place] [address] Mar, [facility] [place] [facility] [address] [id number] [place] [address] Mar, [facility] [place] [facility] [address] [id number] [place] [address] Mar, [facility] [place] [facility] [address] [id number] [place] [address] Feb, [facility] [place] [facility] [address] [id number] [place] [address] Feb, [facility] [place] [facility] [address] [id number] [place] [address] Feb, [facility] [place] [facility] [address] [id number] [place] [address] Jan, [facility] [place] [facility] [address] [id number] [place] [address] Jan, [facility] [place] [facility] [address] [id number] [place] [address] Jan, [facility] [place] [facility] [address] [id number] [place] [address] Jan, [facility] [place] [facility] [address] [id number] [place] [address] Jan, [facility] [place] [facility] [address] [id number] [place] [address] Jan, [facility] [place] [facility] [address] [id number] [place] [address] Jan, [facility] [place] [facility] [address] [id number] [place] [address] Dec, [facility] [place] [facility] [address] [id number] [place] [address] 24 Dec, 2011 [facility] [place] [facility] [address] [id number] [place] [address] Dec, [facility] [place] [facility] [address] [id number] [place] [address] 30 Nov, 2011 [facility] [place] [facility] [address] [id number] [place] [address] Nov, [facility] [place] [facility] [address] [id number] [place] [address] Nov, [facility] [place] [facility] [address] [id number] [place] [address] Nov, [facility] [place] [facility] [address] [id number] [place] [address] Oct, [facility] [place] [facility] [address] [id number] [place] [address] 05 Oct, 2011 [facility] [place] [facility] [address] [id number] [place] [address] Oct, [facility] [place] [facility] [address] [id number] [place] [address] Sep, [facility] [place] [facility] [address] [id number] [place] [address] Sep, [facility] [place] [facility] [address] [id number] [place] [address] Sep, [facility] [place] [facility] [address] [id number] [place] [address] Sep, [facility] [place] [facility] [address] [id number] [place] [address] Sep, [facility] [place] [facility] [address] [id number] [place] [address] Sep, [facility] [place] [facility] [address] [id number] [place] [address] August, [facility] [place] [facility] [address] [id number] [place] [address] Jul, [facility] [place] [facility] [address] [id number] [place] [address] Jul, [facility] [place] [facility] [address] [id number] [address] Jul, [facility] [place] [facility] [address] [id number] [place] [address] Jul, [facility] [place] [facility] [address] [id number] [place] [address] Jul, [facility] [place] [facility] [address] [id number] [place] [address] Jun, [facility] [place] [facility] [address] [id number] [place] [address] 27 Jun, 2011 [facility] [address] [id number] [place] [address] 15 Jun, 2011 [facility] [place] [facility] [address] [id number] [place] [address] 15 Jun, 2011 [facility] [address] [id number] [place] [address] Jun, [facility] [place] [facility] [address] [id number] [place] [address] 13 May, 2011 [facility] [place] [facility] [address] [id number] [place] [address] May, [facility] [place] [facility] [address] [id number] [place] [address] May, [facility] [place] [facility] [address] [id number] [place] [address] 06 May, 2011 [facility] [place] [facility] [address] [id number] [place] [address] May, [facility] [place] [facility] [address] [id number] [place] [address] May, [facility] [place] [facility] [address] [id number] [place] [address] May, [facility] [place] [facility] [address] [id number] [place] [address] Apr, [facility] [place] [facility] [address] [id number] [place] [address] Mar, [facility] [place] [facility] [address] [id number] [place] [address] Mar, [facility] [place] [facility] [address] [id number] [place] [address] Mar, [facility] [place] [facility] [address] [facility] [id number] [place] [address] Mar, [facility] [place] [facility] [address] [id number] [place] [address] 08 Mar, 2011 [facility] [place] [facility] [address] [id number] [place] [address] Feb, [facility] [place] [facility] [address] [id number] [place] [address] 14 Feb, 2011 [facility] [place] [facility] [address] [id number] [place] [address] 14 Feb, 2011 [facility] [place] [facility] [address] [id number] [place] [address] Feb, [facility] [place] [facility] [address] [id number] [place] [address] Feb, [facility] [place] [facility] [address] [id number] [place] [address] Feb, [facility] [place] [facility] [address] [id number] [place] [address] Feb, [facility] [place] [facility] [address] [id number] [place] [address] Jan, [facility] [place] [facility] [address] [id number] [place] [address] Dec, [facility] [place] [facility] [address] [id number] [place] [address] Oct, [facility] [place] [facility] [address] [id number] [place] [address] Jun, [facility] [place] [facility] [address] [id number] [place] [address] Mar, [facility] [place] [facility] [address] [id number] [place] [address] Mar, [facility] [place] [facility] [address] [id number] [place] [address] 16 Mar, 2010 [facility] [place] [facility] [address] [id number] [place] [address] 16 Mar, 2010 [facility] [address] [id number] [place] [address] 15 Mar, 2010 [facility] [address] [id number] [place] [address] 10 Mar, 2010 [facility] [address] [id number] [place] [address] 10 Mar, 2010 [facility] [place] [facility] [address] [id number] [place] [address] 05 Mar, 2010 [facility] [address] [id number] [place] [address] 03 Mar, 2010 [facility] [address] [id number] [place] [address] 02 Mar, 2010 [facility] [address] [id number] [place] [address] Jan, [facility] [address] [id number] [place] [address] Jan, [facility] [address] [id number] [place] [address] Jan, [facility] [address] [facility] [id number] [place] [address] Nov, [facility] [address] [id number] [place] [address] 13 Oct, 2009 [facility] [place] [facility] [address] [id number], [place] [address] 31 Mar, 2009 [facility] [place] [facility] [address] [id number] [place] [address] 20 Mar, 2009 [facility] [place] [facility] [address] [id number] [place] [address] 17 Mar, 2009 [facility] [place] [facility] [address] [id number], [place] [address] 17 Mar, 2009 [facility] [place] [facility] [address] [facility] [id number], [place] [address] Dec, [facility] [address] [id number] [address] August, [facility] [id number] [address] August, [facility] [id number] [address] Jul, [facility] [address] [facility] [id number], [place] [address] Jan, [place] [id number] [address] Jan, IMMUNIZATIONS No Known Immunizations SOCIAL HISTORY Never Assessed REASON FOR VISIT Pain management (chronic)--tjanssenMA, --she c/o a pain along her right side of abdomin where liver is at. She states that she feels full all the time. , --wa nts to discuss about her weight gain. , --refills thyroid medication PLAN OF CARE Activity Details Follow Up 3 Months Reason:chronic pain VITAL SIGNS Height 67 in 2017-07-27 Weight 187.2 lbs 2017-07-27 Temperature 98.0 degrees Fahrenheit 2017-07-27 Heart Rate 64 bpm 2017-07-27 Respiratory Rate 20 2017-07-27 BMI 29.32 kg/m2 2017-07-27 Blood pressure systolic 122 mmHg 2017-07-27 Blood pressure diastolic 86 mmHg 2017-07-27 MEDICATIONS Medication Instructions Dosage Frequency Start Date End Date Duration Status Lyrica 75 MG Orally Twice a day 1 capsule 12h Jan, Active Flonase 50 MCG/ACT Nasally Once a day 1 spray in each nostril 24h Sep, Active Alendronate Sodium 10 MG Orally Once a day 1 tablet 24h Jun, 30 day(s) Active Eliquis 5 mg TAKE ONE TABLET BY MOUTH TWICE DAILY 07 days Active Metoprolol Succinate ER 50 MG Orally Once a day 1 tablet 24h 90 days Active Levothyroxine Sodium 175 MCG Orally Once a day 1 tablet on an empty stomach in the morning 24h Feb, 30 days Active Hydrocodone-Acetaminophen 10-325 MG Orally 2 times a day 1 tablet as needed 12h 22 Jun, 2017 Active Premarin 0.625 MG/GM Vaginal Daily x 2 weeks then decrease to 2 days per week 0.5 gram Feb, Active RESULTS No Results PROCEDURES Procedure Date Ordered Result Body Site ASSAY THYROID STIM HORMONE July 27, 2017 LIPID PANEL July 27, 2017 COMPREHEN METABOLIC PANEL July 27, 2017 COMPLETE CBC W/AUTO DIFF WBC July 27, 2017 DRUG TEST PRSMV CHEM ANLYZR July 27, 2017 INSTRUCTIONS MEDICATIONS ADMINISTERED No Known Medications [...]
--- OUTSIDE RECORDS SUMMARY | 2018-09-22 03:01 | XMS REPORT ---
Author Author FLORENTINEZEKIEL PUCKETT Organization [facility] Address [address] [place] [address] Care Team Providers Care Cellulose Insulation Helper Name Role Phone DANICA LERMAY Unavailable PROBLEMS Type Condition ICD9-CM Code TCH33-FE Code Onset Dates Condition Status SNOMED Code Problem Chronic gastritis without bleeding, unspecified gastritis type K29.50 Active 2401213 Problem Vitamin D deficiency E55.9 Active 86340495 Problem Osteoporosis M81.0 Active 33690447 Problem Unspecified abdominal pain R10.9 Active 357021297 Problem Fibromyalgia M79.7 Active 42628014 Problem Chronic pain syndrome G89.4 Active 076909935 Problem Trigger point with back pain M54.9 Active 076696324 Problem Chronic tension-type headache, not intractable G44.229 Active 314089414 Problem RUQ abdominal pain R10.11 Active 491422033 Problem Pancytopenia D61.818 Active 827636038 Problem Right sided sciatica M54.31 Active 77165133 Problem Chronic prescription opiate use Z79.891 Active 230810966 Problem Drug induced constipation K59.03 Active 405912062141892 Problem Leukopenia, unspecified type D72.819 Active 38916279 Problem Atrial fibrillation, unspecified type I48.91 Active 35577538 Problem Allergic rhinitis, unspecified allergic rhinitis type J30.9 Active 35529352 Problem Chronic obstructive pulmonary disease, unspecified COPD type J44.9 Active 92143102 Problem Hypothyroidism, unspecified hypothyroidism type E03.9 Active 05141131 Problem Other constipation K59.09 Active 937796761 Problem Porokeratosis Q82.8 Active 958244566 Problem 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 [address], [place] [address] Nov, [facility] [id number] [place] [address] Nov, [facility] [id number] [place] [address] Oct, [facility] [id number] [place] [address] Oct, Chronic pain syndrome G89.4 [facility] [id number] [place] [address] Sep, Chronic pain syndrome G89.4 [facility] [id number] [place] [address] August, Somatic dysfunction of lumbar region M99.03 and Somatic dysfunction of pelvis region M99.05 [facility] [id number] [place] [address] August, Chronic pain syndrome G89.4 [facility] [id number] [place] [address] Jul, Trochanteric bursitis of left hip M70.62 and Trochanteric bursitis, right hip M70.61 [facility] [address] [place] [address] Jul, [facility] [id number] [place] [address] Jul, Chronic pain syndrome G89.4 [facility] [id number] [place] [address] Jul, Hypothyroidism, unspecified hypothyroidism type E03.9 [facility] [address] [place] [address] Jul, Hypothyroidism, unspecified hypothyroidism type E03.9 [facility] [id number] [place] [address] Jul, Chronic tension-type headache, not intractable G44.229 ; Atrial fibrillation, unspecified type I48.91 ; Chronic pain syndrome G89.4 ; Hypothyroidism, unspecified hypothyroidism type E03.9 ; Pancytopenia D61.818 ; History of hepatitis C Z86.19 ; Vaginal atrophy N95.2 ; RUQ abdominal pain R10.11 ; Chronic prescription opiate use Z79.891 ; Osteoporosis M81.0 and Screening for breast cancer Z12.31 [facility] [id number] [place] [address] Jun, [facility] [id number] [place] [address] May, [facility] [id number] [place] [address] May, [facility] [id number] [place] [address] May, [facility] [id number] [place] [address] Apr, [facility] [id number] [place] [address] Apr, Hypothyroidism, unspecified hypothyroidism type E03.9 [facility] [id number] [place] [address] Apr, Hypothyroidism, unspecified hypothyroidism type E03.9 and Leukopenia, unspecified type D72.819 [facility] [id number] [place] [address] Mar, [facility] [id number] [place] [address] Mar, Leukopenia, unspecified type D72.819 [place] [address] [address] Mar, Hypothyroidism, unspecified hypothyroidism type E03.9 and Low hemoglobin D64.[address] [address] Mar, Hypothyroidism, unspecified hypothyroidism type E03.9 [place] [address] [address] Mar, Osteoporosis M81.0 ; Low hemoglobin D64.9 and Hypothyroidism, unspecified hypothyroidism type E03.[address] [address] Mar, Hypothyroidism, unspecified hypothyroidism type E03.9 ; Bilirubin in urine R82.2 and Pancytopenia D61.[address] [address] Feb, [facility] [address] [address] Feb, Cough R05 and Bronchitis J40 [facility] [address] [address] 14 Feb, 2017 Other viral agents as the cause of diseases classified elsewhere B97.89 and Acute upper respiratory infection, unspecified J06.[address] [address] 08 Feb, 2017 Fibromyalgia M79.7 ; Chronic pain syndrome G89.4 ; Hypothyroidism, unspecified hypothyroidism type E03.9 ; Primary insomnia F51.01 ; Osteoporosis M81.0 ; Vision abnormalities H53.9 ; Pancytopenia D61.818 ; BMI 28.0-28.9,adult Z68.28 and Encounter for immunization Z23 [address] [address] Feb, Neuroma D36.10 and Capsulitis of right foot M77.51 [facility] [address] [place] [address] Feb, [facility] [id number] [place] [address] Feb, Hypothyroidism, unspecified hypothyroidism type E03.9 [facility] [id number] [place] [address] Jan, [facility] [id number] [place] [address] Jan, Atrial fibrillation, unspecified type I48.91 [facility] [id number] [place] [address] Jan, [facility] [id number] [place] [address] Jan, Fibromyalgia M79.7 ; Atrial fibrillation, unspecified type I48.91 ; Pain of left hand M79.642 ; Pain in right hand M79.641 ; Chronic prescription opiate use Z79.891 ; Chronic pain syndrome G89.4 ; Elevated fasting glucose R73.01 and Hypothyroidism, unspecified hypothyroidism type E03.9 [facility] [address] [place] [address] Jan, [facility] [address] [place] [address] Dec, Trochanteric bursitis of both hips M70.61 [facility] [address] [place] [address] Dec, [facility] [id number] [place] [address] Dec, [facility] [id number] [place] [address] Nov, [facility] [id number] [place] [address] Nov, Unilateral headache R51 [facility] [id number] [place] [address] Nov, 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 [address] [address] Oct, [place] [address] [address] Sep, Hypothyroidism, unspecified hypothyroidism type E03.9 [place] [address] [address] Sep, Hypothyroidism, unspecified hypothyroidism type E03.9 and Bilirubin in urine R82.2 [place] [address] [address] Sep, Trochanteric bursitis of both hips M70.61 [place] [address] [address] Sep, Hypothyroidism, unspecified hypothyroidism type E03.9 ; Dysuria R30.0 ; Chronic tension-type headache, not intractable G44.229 and Drug induced constipation K59.03 [facility] [id number] [place] [address] Sep, [facility] [address] [address] Sep, [facility] [address] [address] August, [facility] [address] [address] Jul, [facility] [address] [place] [address] Jul, Trochanteric bursitis of right hip M70.61 [facility] [address] [address] Jul, Hypothyroidism, unspecified hypothyroidism type E03.9 [facility] [id number] [place] [address] Jul, Fibromyalgia M79.7 ; Chronic pain syndrome G89.4 ; Hypothyroidism, unspecified hypothyroidism type E03.9 and Other constipation K59.09 [facility] [id number] [place] [address] Jun, Swollen tonsil J35.1 and Strep throat J02.0 [facility] [id number] [place] [address] Jun, [facility] [address] [address] Jun, Acute maxillary sinusitis J01.00 [facility] [id number] [place] [address] Jun, Hypothyroidism, unspecified hypothyroidism type E03.9 [facility] [id number] [place] [address] Jun, Chronic pain syndrome G89.4 ; Fibromyalgia M79.7 ; Hypothyroidism, unspecified hypothyroidism type E03.9 and Chronic prescription opiate use Z79.891 [facility] [id number] [place] [address] May, [facility] [id number] [place] [address] Apr, Hypothyroidism, unspecified hypothyroidism type E03.9 [facility] [id number] [place] [address] Apr, [facility] [address] [address] Apr, Lipid screening Z13.220 and Hypothyroidism, unspecified hypothyroidism type E03.9 [facility] [id number] [place] [address] Apr, [facility] [id number] [place] [address] Mar, Trochanteric bursitis of both hips M70.61 [place] [address] [address] Mar, [place] [address] [address] Mar, Plantar fasciitis M72.2 and Porokeratosis Q82.8 [place] [address] [address] Feb, Lipid screening Z13.220 ; Vitamin D deficiency E55.9 and Hypothyroidism, unspecified hypothyroidism type E03.9 [facility] [id number] [place] [address] Feb, Chronic pain syndrome G89.4 ; Hypothyroidism, unspecified hypothyroidism type E03.9 ; Pancytopenia D61.818 ; Vaginal atrophy N95.2 ; Chronic gastritis without bleeding, unspecified gastritis type K29.50 ; Vitamin D deficiency E55.9 ; Chronic prescription opiate use Z79.891 ; Adverse effect of other opioids, initial encounter T40.2X5A ; Drug induced constipation K59.03 ; Lipid screening Z13.220 and Encounter for immunization Z23 [facility] [facility] [id number] [place] [address] Feb, [place] [address] [address] Feb, Ingrown toenail L60.0 [facility] [id number] [place] [address] Jan, [place] [address] [address] Jan, Trochanteric bursitis of both hips M70.61 [facility] [id number] [place] [address] Jan, [facility] [id number] [place] [address] Jan, [facility] [id number] [place] [address] Jan, [facility] [id number] [place] [address] Jan, Right sided sciatica M54.31 [facility] [id number] [place] [address] Dec, Onychomycosis B35.1 [facility] [id number] [place] [address] Dec, [facility] [id number] [place] [address] Dec, [facility] [id number] [place] [address] Dec, [facility] [id number] [place] [address] Dec, Osteoarthritis of right hip, unspecified osteoarthritis type M16.11 and Bursitis of right hip M70.71 [facility] [id number] [place] [address] Nov, [facility] [id number] [place] [address] Nov, [facility] [id number] [place] [address] Nov, [facility] [id number] [place] [address] Nov, Hypothyroidism, unspecified hypothyroidism type E03.9 ; Vitamin D deficiency E55.9 and History of hepatitis C Z86.19 [facility] [address], [place] [address] Nov, Right upper quadrant pain R10.11 ; History of hepatitis C Z86.19 and Low back pain M54.5 [facility] [address], [place] [address] 28 Oct, 2015 Trochanteric bursitis, right hip M70.61 [facility] [id number] [place] [address] Oct, [facility] [id number] [place] [address] Oct, [facility] [id number] [place] [address] Oct, Trochanteric bursitis of both hips M70.61 and Right sided sciatica M54.31 [facility] [id number] [place] [address] Oct, Trochanteric bursitis of both hips M70.61 [facility] [id number] [place] [address] 14 Oct, 2015 RUQ abdominal pain R10.11 [facility] [facility] [id number] [place] [address] 13 Oct, 2015 Sciatic leg pain M54.30 [facility] [id number] [place] [address] Oct, RUQ abdominal pain R10.11 [facility] [address] [place] [address] 07 Oct, 2015 RUQ abdominal pain R10.11 ; History of hepatitis C Z86.19 and Trigger point with back pain M54.9 [facility] [address], [place] [address] Sep, [facility] [id number] [place] [address] Sep, Right sided sciatica M54.31 [place] [address] [place] [address] Sep, Hypothyroidism, unspecified hypothyroidism type E03.9 and Vitamin D deficiency E55.9 [place] [id number] [place] [address] Sep, Plantar fasciitis M72.2 and Porokeratosis Q82.8 [facility] [facility] [id number] [place] [address] Sep, Hypothyroidism, unspecified hypothyroidism type E03.9 ; Chronic pain syndrome G89.4 ; Vitamin D deficiency E55.9 and Polyneuropathy associated with underlying disease G63 [facility] [id number] [place] [address] August, [facility] [id number] [place] [address] Jul, Plantar fasciitis M72.2 [facility] [id number] [place] [address] Jul, Trochanteric bursitis, right hip M70.61 [facility] [id number] [place] [address] Jul, Hypothyroidism, unspecified hypothyroidism type E03.9 [facility] [id number] [place] [address] Jul, Hypothyroidism, unspecified hypothyroidism type E03.9 ; Chronic pain syndrome G89.4 and Polyneuropathy associated with underlying disease G63 [facility] [place] [id number] [place] [address] Jun, Trochanteric bursitis of both hips M70.61 [facility] [id number] [place] [address] 08 Jun, 2015 Vitamin D deficiency E55.9 ; Osteoporosis M81.0 ; Low back pain M54.5 and Plantar fasciitis M72.2 [facility] [place] [id number] [place] [address] May, Vitamin D deficiency E55.9 and Hypothyroidism, unspecified hypothyroidism type E03.9 [facility] [id number] [place] [address] May, Acute maxillary sinusitis J01.00 [place] [address] [address] 18 May, 2015 Osteoporosis M81.0 and Hypothyroidism, unspecified hypothyroidism type E03.9 [place] [address] [address] 16 May, 2015 Osteoporosis M81.0 [place] [address] [address] 15 May, 2015 [place] [address] [address] Apr, [place] [address] [address] Apr, Trochanteric bursitis of both hips M70.61 [facility] [place] [id number] [place] [address] Apr, Hypothyroidism, unspecified hypothyroidism type E03.9 [facility] [id number] [place] [address] Apr, Chronic pain syndrome G89.4 ; Bilateral low back pain with sciatica, sciatica laterality unspecified M54.40 ; Pain in right hip M25.551 ; Pain in left hip M25.552 ; Chronic prescription opiate use Z79.899 ; Primary insomnia F51.01 and Hypothyroidism, unspecified hypothyroidism type E03.9 [facility] [id number] [place] [address] Mar, [facility] [id number] [place] [address] Feb, [facility] [place] [id number] [place] [address] Feb, Chronic pain syndrome G89.4 and Major depression F32.9 [place] [address] [address] Feb, Fatigue R53.83 [place] [address] [address] 13 Feb, 2015 History of fracture Z87.81 [place] [address] [address] Feb, Major depression, recurrent F33.9 and Generalized anxiety disorder F41.1 [place] [address] [address] Feb, [place] [address] [address] Jan, Hypothyroidism, unspecified hypothyroidism type E03.9 [facility] [id number] [place] [address] Jan, Abdominal pain R10.9 and Hypothyroidism, unspecified hypothyroidism type E03.9 [facility] [id number] [place] [address] Jan, Abdominal pain R10.9 [facility] [id number] [place] [address] Jan, Hypothyroidism, unspecified hypothyroidism type E03.9 [facility] [id number] [place] [address] Jan, [facility] [id number] [place] [address] Jan, 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 and Hypothyroidism, unspecified hypothyroidism type E03.9 [facility] [id number] [place] [address] Jan, 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 ; Abdominal pain R10.9 ; Dyspareunia N94.1 ; Encounter for immunization Z23 ; History of fracture Z87.81 ; Fatigue R53.83 ; Throat fullness R68.89 ; Bruises easily R23.8 ; Hot flashes N95.1 ; Depression F32.9 and Vaginal atrophy N95.2 [facility] [id number] [place] [address] Jan, Hypothyroidism, unspecified hypothyroidism type E03.9 [facility] [place] [address] [address] Jan, Unspecified abdominal pain R10.9 ; Chronic obstructive pulmonary disease, unspecified COPD type J44.9 ; Allergic rhinitis, unspecified allergic rhinitis type J30.9 ; Chronic pain syndrome G89.4 ; Hypothyroidism, unspecified hypothyroidism type E03.9 ; Chest pain, unspecified chest pain type R07.9 and Plantar fasciitis M72.2 [facility] [id number] [place] [address] Jan, Trochanteric bursitis of both hips M70.61 [facility] [id number] [place] [address] Dec, [facility] [id number] [place] [address] Nov, [facility] [id number] [place] [address] Nov, [facility] [address] [address] Nov, Constipation 564.00 [facility] [place] [address] [address] Oct, Chronic pain 338.29 and Hypothyroidism 244.9 [facility] [id number] [place] [address] Oct, [facility] [id number] [address] Sep, [facility] [id number] [address] Sep, [facility] [id number] [address] Sep, [facility] [id number] [place] [address] Sep, [facility] [id number] [place] [address] Sep, [facility] [id number] [place] [address] Sep, [facility] [id number] [address] Sep, COPD exacerbation 491.21 ; Chronic pain 338.29 ; Hypothyroidism 244.9 and Pancytopenia 284.19 [facility] [id number] [address] August, [facility] [id number] [place] [address] Jul, [facility] [id number] [address] Jul, [facility] [id number] [place] [address] Jun, [facility] [id number], [place] [address] Jun, [facility] [id number] [place] [address] Jun, [facility] [id number], [place] [address] Jun, [facility] [id number] [place] [address] Jun, [facility] [place] [facility] [address] [id number] [place] [address] May, 2014 [facility] [place] [facility] [address] [id number] [place] [address] May, 2014 [facility] [place] [facility] [address] [id number] [place] [address] May, 2014 [facility] [place] [facility] [address] [id number] [place] [address] May, 2014 [facility] [place] [facility] [address] [id number] [place] [address] May, 2014 [facility] [place] [facility] [address] [id number] [place] [address] May, 2014 [facility] [place] [facility] [address] [facility] [id number] [place] [address] May, 2014 [facility] [place] [facility] [address] [id number] [place] [address] May, 2014 [facility] [place] [facility] [address] [facility] [id number] [place] [address] May, 2014 [facility] [place] [facility] [address] [facility] [id number] [place] [address] May, [facility] [place] [facility] [address] [facility] [facility] [place] [id number] [place] [address] May, 2014 [facility] [place] [facility] [address] [id number] [place] [address] May, 2014 [facility] [place] [facility] [address] [facility] [id number] [place] [address] May, [facility] [place] [facility] [address] [id number] [place] [address] Apr, [facility] [place] [facility] [address] [facility] [id number] [place] [address] Apr, [facility] [place] [facility] [address] [id number] [place] [address] Apr, [facility] [place] [facility] [address] [id number] [place] [address] Apr, [facility] [place] [facility] [address] [id number] [place] [address] Apr, [facility] [place] [facility] [address] [id number] [place] [address] Apr, [facility] [place] [facility] [address] [id number] [place] [address] Apr, [facility] [place] [facility] [address] [id number] [place] [address] Mar, [facility] [place] [facility] [address] [id number] [place] [address] Mar, [facility] [place] [facility] [address] [id number] [place] [address] Mar, [facility] [place] [facility] [address] [id number] [place] [address] 18 Mar, 2014 [facility] [place] [facility] [address] [id number] [place] [address] Mar, [facility] [place] [facility] [address] [facility] [id number] [place] [address] Mar, [facility] [place] [facility] [address] [id number] [place] [address] Feb, [facility] [place] [facility] [address] [id number] [place] [address] Feb, [facility] [place] [facility] [address] [id number] [place] [address] Feb, [facility] [place] [facility] [address] [id number] [place] [address] Feb, [facility] [place] [facility] [address] [id number] [place] [address] Feb, [facility] [place] [facility] [address] [id number] [place] [address] Feb, [facility] [place] [facility] [address] [id number] [place] [address] Jan, [facility] [place] [facility] [address] [id number] [place] [address] Jan, [facility] [place] [facility] [address] [id number] [place] [address] Jan, [facility] [place] [facility] [address] [id number] [place] [address] Jan, [facility] [place] [facility] [address] [id number] [place] [address] Jan, [facility] [place] [facility] [address] [id number] [place] [address] Jan, [facility] [place] [facility] [address] [id number] [place] [address] Jan, [facility] [place] [facility] [address] [id number] [place] [address] Jan, [facility] [place] [facility] [address] [id number] [place] [address] Dec, [facility] [place] [facility] [address] [id number] [place] [address] 25 Dec, 2013 [facility] [place] [facility] [address] [id number] [place] [address] 23 Dec, 2013 [facility] [place] [facility] [address] [id number] [place] [address] 23 Dec, 2013 [facility] [place] [facility] [address] [id number] [place] [address] 13 Dec, 2013 [facility] [place] [facility] [address] [id number] [place] [address] 10 Dec, 2013 [facility] [place] [facility] [address] [id number] [place] [address] Dec, [facility] [place] [facility] [address] [id number] [place] [address] Nov, [facility] [place] [facility] [address] [id number] [place] [address] Nov, [facility] [place] [facility] [address] [id number] [place] [address] Oct, [facility] [place] [facility] [address] [id number] [place] [address] Oct, [facility] [place] [facility] [address] [id number] [place] [address] Oct, [facility] [place] [facility] [address] [id number] [place] [address] Oct, [facility] [place] [facility] [address] [id number] [place] [address] Sep, [facility] [place] [facility] [address] [id number] [place] [address] Sep, [facility] [place] [facility] [address] [id number] [place] [address] Sep, [facility] [place] [facility] [address] [id number] [place] [address] Sep, [facility] [place] [facility] [address] [id number] [place] [address] Sep, [facility] [place] [facility] [address] [id number] [place] [address] Sep, [facility] [place] [facility] [address] [id number] [place] [address] Sep, [facility] [place] [facility] [address] [id number] [place] [address] Sep, [facility] [place] [facility] [address] [id number] [place] [address] August, [facility] [place] [facility] [address] [id number] [place] [address] August, [facility] [address] [id number] [place] [address] August, [facility] [place] [facility] [address] [id number] [place] [address] August, [facility] [address] [id number] [place] [address] Jul, [facility] [place] [facility] [address] [id number] [place] [address] Jul, [facility] [address] [id number] [place] [address] Jul, [facility] [address] [id number] [place] [address] Jul, [facility] [address] [id number] [place] [address] Jul, [facility] [address] [id number] [place] [address] 16 Jul, 2013 [facility] [address] [id number] [place] [address] 15 Jul, 2013 [facility] [address] [id number] [place] [address] 15 Jul, 2013 [facility] [place] [facility] [address] [id number] [place] [address] 18 Jun, 2013 [facility] [place] [facility] [address] [id number] [place] [address] 18 Jun, 2013 [facility] [place] [facility] [address] [id number] [place] [address] Jun, [facility] [place] [facility] [address] [id number] [place] [address] Jun, [facility] [place] [facility] [address] [id number] [place] [address] Jun, [facility] [address] [id number] [place] [address] Jun, [facility] [place] [facility] [address] [id number] [place] [address] Jun, [facility] [place] [facility] [address] [id number] [place] [address] Jun, [facility] [place] [facility] [address] [id number] [place] [address] May, [facility] [place] [facility] [address] [id number] [place] [address] May, [facility] [place] [facility] [address] [id number] [place] [address] Apr, [facility] [place] [facility] [address] [id number] [place] [address] Apr, [facility] [place] [facility] [address] [id number] [place] [address] Mar, [facility] [place] [facility] [address] [id number] [place] [address] Mar, [facility] [place] [facility] [address] [id number] [place] [address] Mar, [facility] [place] [facility] [address] [id number] [place] [address] 18 Mar, 2013 [facility] [place] [facility] [address] [id number] [place] [address] Mar, [facility] [place] [facility] [address] [id number] [place] [address] Mar, [facility] [place] [facility] [address] [id number] [place] [address] Mar, [facility] [place] [facility] [address] [id number] [place] [address] Feb, [facility] [place] [facility] [address] [id number] [place] [address] Feb, [facility] [address] [id number] [place] [address] Feb, [facility] [place] [facility] [address] [id number] [place] [address] Feb, [facility] [place] [facility] [address] [id number] [place] [address] Feb, [facility] [place] [facility] [address] [id number] [place] [address] Feb, [facility] [place] [facility] [address] [id number] [place] [address] 26 Dec, 2012 [facility] [place] [facility] [address] [id number] [place] [address] 18 Dec, 2012 [facility] [place] [facility] [address] [id number] [place] [address] Dec, [facility] [place] [facility] [address] [id number] [place] [address] Dec, [facility] [place] [facility] [address] [id number] [place] [address] Dec, [facility] [place] [facility] [address] [id number] [place] [address] Nov, [facility] [place] [facility] [address] [id number] [place] [address] Nov, [facility] [place] [facility] [address] [id number] [place] [address] Oct, [facility] [place] [facility] [address] [id number] [place] [address] August, [facility] [place] [facility] [address] [id number] [place] [address] August, [facility] [place] [facility] [address] [id number] [place] [address] August, [facility] [place] [facility] [address] [id number] [place] [address] 18 Jul, 2012 [facility] [place] [facility] [address] [id number] [place] [address] Jul, [facility] [place] [facility] [address] [id number] [place] [address] Jul, [facility] [place] [facility] [address] [id number] [place] [address] 27 Jun, 2012 [facility] [place] [facility] [address] [id number] [place] [address] 26 Jun, 2012 [facility] [place] [facility] [address] [id number] [place] [address] Jun, [facility] [address] [id number] [place] [address] Jun, [facility] [place] [facility] [address] [id number] [place] [address] Jun, [facility] [place] [facility] [address] [id number] [place] [address] Jun, [facility] [place] [facility] [address] [id number] [place] [address] Jun, [facility] [place] [facility] [address] [id number] [place] [address] May, [facility] [place] [facility] [address] [id number] [place] [address] May, [facility] [place] [facility] [address] [id number] [place] [address] May, [facility] [place] [facility] [address] [id number] [place] [address] 05 May, 2012 [facility] [place] [facility] [address] [id number] [place] [address] Apr, [facility] [place] [facility] [address] [id number], [place] [address] Apr, [facility] [place] [facility] [address] [id number] [place] [address] Apr, [facility] [place] [facility] [address] [id number] [place] [address] Mar, [facility] [place] [facility] [address] [id number] [place] [address] Mar, [facility] [place] [facility] [address] [id number] [place] [address] Mar, [facility] [place] [facility] [address] [id number] [place] [address] Mar, [facility] [place] [facility] [address] [id number] [place] [address] Mar, [facility] [place] [facility] [address] [id number] [place] [address] Mar, [facility] [place] [facility] [address] [id number] [place] [address] Mar, [facility] [place] [facility] [address] [id number] [place] [address] Mar, [facility] [place] [facility] [address] [id number] [place] [address] Feb, [facility] [place] [facility] [address] [id number], [place] [address] Feb, [facility] [place] [facility] [address] [id number], [place] [address] Feb, [facility] [place] [facility] [address] [id number], [place] [address] Jan, [facility] [place] [facility] [address] [id number] [place] [address] Jan, [facility] [place] [facility] [address] [id number] [place] [address] Jan, [facility] [place] [facility] [address] [id number] [place] [address] 18 Jan, 2012 [facility] [place] [facility] [address] [id number] [place] [address] 18 Jan, 2012 [facility] [place] [facility] [address] [id number] [place] [address] 08 Jan, 2012 [facility] [place] [facility] [address] [id number] [place] [address] 04 Jan, 2012 [facility] [place] [facility] [address] [id number] [place] [address] 27 Dec, 2011 [facility] [place] [facility] [address] [id number] [place] [address] 24 Dec, 2011 [facility] [place] [facility] [address] [id number] [place] [address] 10 Dec, 2011 [facility] [place] [facility] [address] [id number] [place] [address] 30 Nov, 2011 [facility] [place] [facility] [address] [id number] [place] [address] Nov, [facility] [place] [facility] [address] [id number] [place] [address] Nov, [facility] [place] [facility] [address] [id number] [place] [address] Nov, [facility] [place] [facility] [address] [id number] [place] [address] Oct, [facility] [place] [facility] [address] [id number] [place] [address] Oct, [facility] [place] [facility] [address] [id number] [place] [address] Oct, [facility] [place] [facility] [address] [id number] [place] [address] Sep, [facility] [place] [facility] [address] [id number] [place] [address] Sep, [facility] [place] [facility] [address] [id number] [place] [address] 13 Sep, 2011 [facility] [place] [facility] [address] [id number] [place] [address] Sep, [facility] [place] [facility] [address] [id number] [place] [address] Sep, [facility] [place] [facility] [address] [id number] [place] [address] Sep, [facility] [place] [facility] [address] [id number] [place] [address] August, [facility] [place] [facility] [address] [id number] [place] [address] Jul, [facility] [place] [facility] [address] [id number] [place] [address] Jul, [facility] [place] [facility] [address] [id number] [place] [address] Jul, [facility] [place] [facility] [address] [id number] [place] [address] Jul, [facility] [place] [facility] [address] [id number] [place] [address] Jul, [facility] [place] [facility] [address] [id number] [place] [address] 29 Jun, 2011 [facility] [place] [facility] [address] [id number], [place] [address] 27 Jun, 2011 [facility] [place] [facility] [address] [id number] [place] [address] 15 Jun, 2011 [facility] [place] [facility] [address] [id number] [place] [address] 15 Jun, 2011 [facility] [place] [facility] [address] [id number] [place] [address] 09 Jun, 2011 [facility] [place] [facility] [address] [id number] [place] [address] 13 May, 2011 [facility] [place] [facility] [address] [id number] [place] [address] May, 2011 [facility] [place] [facility] [address] [id number] [place] [address] May, 2011 [facility] [place] [facility] [address] [id number] [place] [address] 06 May, 2011 [facility] [place] [facility] [address] [id number] [place] [address] May, [facility] [place] [facility] [address] [id number] [place] [address] May, [facility] [place] [facility] [address] [id number] [place] [address] May, [facility] [place] [facility] [address] [id number] [place] [address] Apr, [facility] [place] [facility] [address] [id number] [place] [address] 29 Mar, 2011 [facility] [place] [facility] [address] [id number] [place] [address] Mar, [facility] [place] [facility] [address] [facility] [id number] [place] [address] Mar, [facility] [place] [facility] [address] [id number] [place] [address] Mar, [facility] [place] [facility] [address] [id number] [place] [address] 08 Mar, 2011 [facility] [place] [facility] [address] [id number] [place] [address] 23 Feb, 2011 [facility] [place] [facility] [address] [id number] [place] [address] 14 Feb, 2011 [facility] [place] [facility] [address] [id number] [place] [address] 14 Feb, 2011 [facility] [place] [facility] [address] [id number] [place] [address] 14 Feb, 2011 [facility] [place] [facility] [address] [id number] [place] [address] 07 Feb, 2011 [facility] [place] [facility] [address] [id number] [place] [address] 04 Feb, 2011 [facility] [place] [facility] [address] [id number] [place] [address] 04 Feb, 2011 [facility] [place] [facility] [address] [id number] [place] [address] 10 Jan, 2011 [facility] [place] [facility] [address] [id number] [place] [address] 12 Dec, 2010 [facility] [place] [facility] [address] [id number] [place] [address] Oct, [facility] [place] [facility] [address] [id number] [place] [address] 10 Jun, 2010 [facility] [place] [facility] [address] [id number] [place] [address] 23 Mar, 2010 [facility] [place] [facility] [address] [id number] [place] [address] 23 Mar, 2010 [facility] [place] [facility] [address] [id number] [place] [address] 16 Mar, 2010 [facility] [place] [facility] [address] [id number] [place] [address] 16 Mar, 2010 [facility] [place] [facility] [address] [id number] [place] [address] 15 Mar, 2010 [facility] [place] [facility] [address] [id number] [place] [address] 10 Mar, 2010 [facility] [place] [facility] [address] [id number] [place] [address] 10 Mar, 2010 [facility] [place] [facility] [address] [id number], [place] [address] 05 Mar, 2010 [facility] [address] [id number] [place] [address] 03 Mar, 2010 [facility] [address] [id number], [place] [address] Mar, [facility] [address] [id number] [place] [address] Jan, [facility] [address] [id number] [place] [address] Jan, [facility] [address] [id number] [place] [address], [place] [address] Jan, [facility] [address] [id number] [place] [address] Nov, [facility] [address] [facility] [id number], [place] [address] Oct, [facility] [address] [id number], [place] [address] 31 Mar, 2009 [facility] [address] [id number] [place] [address] Mar, [facility] [address] [facility] [id number], [place] [address] 17 Mar, 2009 [facility] [address] [id number], [place] [address] 17 Mar, 2009 [facility] [place] [facility] [address] [id number], [place] [address] 17 Dec, 2008 [facility] [address] [id number], [place] [address] August, [facility] [place] [facility] [address] [id number], [place] [address] August, [facility] [address] [facility] [id number], [place] [address] 15 Jul, 2008 [facility] [place] [facility] [address] [facility] [id number] [place] [address] Jan, [facility] [address] [facility] [id number] [place] [address] Jan, IMMUNIZATIONS No Known Immunizations SOCIAL HISTORY Never Assessed REASON FOR VISIT Controlled Medication Refill PLAN OF CARE VITAL SIGNS MEDICATIONS Medication Instructions Dosage Frequency Start Date End Date Duration Status Hydrocodone-Acetaminophen 10-325 MG Orally 2 times a day 1 tablet as needed 12h Jun, 28 days Active RESULTS No Results PROCEDURES [...] orthopedic surgery--left foot Surgical History Thyroid surgery-Ablation Hospitalization History surgeries Hospitalization History multiple hospital stays for [facility]
--- OUTSIDE RECORDS SUMMARY | 2018-09-22 03:02 | XMS REPORT ---
Author Author FLORENTINEZEKIEL PUCKETT Organization [facility] Address [address] [place] [address] Care Team Providers Care Senior It Auditor Name Role Phone DANICA LERMAY Unavailable PROBLEMS Type Condition ICD9-CM Code VFT89-HN Code Onset Dates Condition Status SNOMED Code Problem Chronic gastritis without bleeding, unspecified gastritis type K29.50 Active 4316399 Problem Vitamin D deficiency E55.9 Active 48602064 Problem Osteoporosis M81.0 Active 62475952 Problem Unspecified abdominal pain R10.9 Active 362144073 Problem Fibromyalgia M79.7 Active 73999034 Problem Chronic pain syndrome G89.4 Active 346023480 Problem Trigger point with back pain M54.9 Active 146987887 Problem Chronic tension-type headache, not intractable G44.229 Active 148755620 Problem RUQ abdominal pain R10.11 Active 972165837 Problem Pancytopenia D61.818 Active 063396865 Problem Right sided sciatica M54.31 Active 47032569 Problem Chronic prescription opiate use Z79.891 Active 495392637 Problem Drug induced constipation K59.03 Active 822191462322061 Problem Leukopenia, unspecified type D72.819 Active 69439988 Problem Atrial fibrillation, unspecified type I48.91 Active 56258602 Problem Allergic rhinitis, unspecified allergic rhinitis type J30.9 Active 91726258 Problem Chronic obstructive pulmonary disease, unspecified COPD type J44.9 Active 57362260 Problem Hypothyroidism, unspecified hypothyroidism type E03.9 Active 51095646 Problem Other constipation K59.09 Active 045880855 Problem Porokeratosis Q82.8 Active 826586040 Problem 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 Active 969016129 Problem Allergy to intravenous contrast Z91.041 Active 420766827 Problem Vaginal atrophy N95.2 Active 897931611 Problem Major depression, recurrent F33.9 Active 74635558 Problem History of hepatitis C Z86.19 Active 70621256400728 Problem Hot flashes N95.1 Active 063233556 Problem Plantar fasciitis M72.2 Active 862524410 Problem Polyneuropathy associated with underlying disease G63 Active 107093447 Problem Primary insomnia F51.01 Active 7910346 Problem Low back pain M54.5 Active 600957766 ALLERGIES No Information ENCOUNTERS Encounter Location Date Diagnosis [place] [address] [address] Jul, Trochanteric bursitis of left hip M70.62 and Trochanteric bursitis, right hip M70.61 [place] [address] [place] [id number] [place] [address] Jul, [place] [address] [address] Jul, Chronic pain syndrome G89.4 [place] [address] [place] [id number] [place] [address] Jul, Hypothyroidism, unspecified hypothyroidism type E03.9 [place] [address] [place] [id number] [place] [address] Jul, Hypothyroidism, unspecified hypothyroidism type E03.9 [place] [address] [place] [id number] [place] [address] Jul, Chronic tension-type headache, not intractable G44.229 ; Atrial fibrillation, unspecified type I48.91 ; Chronic pain syndrome G89.4 ; Hypothyroidism, unspecified hypothyroidism type E03.9 ; Pancytopenia D61.818 ; History of hepatitis C Z86.19 ; Vaginal atrophy N95.2 ; RUQ abdominal pain R10.11 ; Chronic prescription opiate use Z79.891 ; Osteoporosis M81.0 and Screening for breast cancer Z12.31 [place] [address] [place] [id number] [place] [address] Jun, [place] [address] [place] [id number] [place] [address] May, [place] [address] [address] May, [facility] [address] [place] [address] May, [facility] [address] [place] [address] Apr, [facility] [address] [place] [address] Apr, Hypothyroidism, unspecified hypothyroidism type E03.9 [facility] [address] [place] [address] Apr, Hypothyroidism, unspecified hypothyroidism type E03.9 and Leukopenia, unspecified type D72.819 [place] [address] [place] [address] Mar, [place] [address] [place] [id number] [place] [address] Mar, Leukopenia, unspecified type D72.819 [facility] [address] [place] [address] Mar, Hypothyroidism, unspecified hypothyroidism type E03.9 and Low hemoglobin D64.9 [place] [address] [place] [address] Mar, Hypothyroidism, unspecified hypothyroidism type E03.9 [place] [address] [place] [address] Mar, Osteoporosis M81.0 ; Low hemoglobin D64.9 and Hypothyroidism, unspecified hypothyroidism type E03.9 [place] [address] [place] [address] Mar, Hypothyroidism, unspecified hypothyroidism type E03.9 ; Bilirubin in urine R82.2 and Pancytopenia D61.818 [facility] [address] [address] Feb, [facility] [address] [place] [id number] [place] [address] 18 Feb, 2017 Cough R05 and Bronchitis J40 [facility] [address] [address] 14 Feb, 2017 Other viral agents as the cause of diseases classified elsewhere B97.89 and Acute upper respiratory infection, unspecified J06.9 [place] [address] [address] Feb, Fibromyalgia M79.7 ; Chronic pain syndrome G89.4 ; Hypothyroidism, unspecified hypothyroidism type E03.9 ; Primary insomnia F51.01 ; Osteoporosis M81.0 ; Vision abnormalities H53.9 ; Pancytopenia D61.818 ; BMI 28.0-28.9,adult Z68.28 and Encounter for immunization Z23 [address] [address] Feb, Neuroma D36.10 and Capsulitis of right foot M77.51 [place] [address] [place] [id number] [place] [address] Feb, [place] [address] [address] Feb, Hypothyroidism, unspecified hypothyroidism type E03.9 [place] [address] [place] [id number] [place] [address] Jan, [place] [address] [place] [id number] [place] [address] Jan, Atrial fibrillation, unspecified type I48.91 [place] [address] [place] [id number] [place] [address] Jan, [place] [address] [address] Jan, Fibromyalgia M79.7 ; Atrial fibrillation, unspecified type I48.91 ; Pain of left hand M79.642 ; Pain in right hand M79.641 ; Chronic prescription opiate use Z79.891 ; Chronic pain syndrome G89.4 ; Elevated fasting glucose R73.01 and Hypothyroidism, unspecified hypothyroidism type E03.9 [place] [address] [address] Jan, [facility] [address] [place] [id number] [place] [address] Dec, Trochanteric bursitis of both hips M70.61 [place] [address] [address] Dec, [place] [address] [address] Dec, [place] [address] [address] Nov, [place] [address] [address] Nov, Unilateral headache R51 [facility] [address] [address] Nov, [place] [address] [address] Oct, Unilateral headache R51 ; 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 and Allergy to intravenous contrast Z91.041 [place] [address] [place] [id number] [place] [address] Oct, [facility] [address] [place] [id number] [place] [address] Oct, [facility] [address] [place] [id number] [place] [address] Sep, Hypothyroidism, unspecified hypothyroidism type E03.9 [facility] [address] [address] Sep, Hypothyroidism, unspecified hypothyroidism type E03.9 and Bilirubin in urine R82.2 [place] [address] [address] Sep, Trochanteric bursitis of both hips M70.61 [facility] [address] [place] [id number] [place] [address] Sep, Hypothyroidism, unspecified hypothyroidism type E03.9 ; Dysuria R30.0 ; Chronic tension-type headache, not intractable G44.229 and Drug induced constipation K59.03 [facility] [address] [address] Sep, [facility] [address] [address] Sep, [facility] [address] [address] August, [facility] [address] [place] [id number] [place] [address] Jul, [facility] [address] [address] Jul, Trochanteric bursitis of right hip M70.61 [facility] [address] [place] [id number] [place] [address] Jul, Hypothyroidism, unspecified hypothyroidism type E03.9 [facility] [address] [place] [id number] [place] [address] Jul, Fibromyalgia M79.7 ; Chronic pain syndrome G89.4 ; Hypothyroidism, unspecified hypothyroidism type E03.9 and Other constipation K59.09 [facility] [address] [place] [id number] [place] [address] Jun, Swollen tonsil J35.1 and Strep throat J02.0 [facility] [address] [place] [id number] [place] [address] Jun, [facility] [address] [place] [id number] [place] [address] Jun, Acute maxillary sinusitis J01.00 [facility] [address] [place] [id number] [place] [address] Jun, Hypothyroidism, unspecified hypothyroidism type E03.9 [place] [address] [address] Jun, Chronic pain syndrome G89.4 ; Fibromyalgia M79.7 ; Hypothyroidism, unspecified hypothyroidism type E03.9 and Chronic prescription opiate use Z79.891 [place] [address] [address] May, [place] [address] [place] [id number] [place] [address] Apr, Hypothyroidism, unspecified hypothyroidism type E03.9 [place] [address] [address] Apr, [place] [address] [address] Apr, Lipid screening Z13.220 and Hypothyroidism, unspecified hypothyroidism type E03.9 [place] [address] [place] [id number] [place] [address] Apr, [place] [address] [address] Mar, Trochanteric bursitis of both hips M70.61 [place] [id number] [place] [address] Mar, [place] [address] [address] Mar, Plantar fasciitis M72.2 and Porokeratosis Q82.8 [place] [address] [address] Feb, Lipid screening Z13.220 ; Vitamin D deficiency E55.9 and Hypothyroidism, unspecified hypothyroidism type E03.9 [place] [address] [place] [id number] [place] [address] Feb, Chronic pain syndrome G89.4 ; Hypothyroidism, unspecified hypothyroidism type E03.9 ; Pancytopenia D61.818 ; Vaginal atrophy N95.2 ; Chronic gastritis without bleeding, unspecified gastritis type K29.50 ; Vitamin D deficiency E55.9 ; Chronic prescription opiate use Z79.891 ; Adverse effect of other opioids, initial encounter T40.2X5A ; Drug induced constipation K59.03 ; Lipid screening Z13.220 and Encounter for immunization Z23 [place] [address] [address] Feb, [place] [address] [address] Feb, Ingrown toenail L60.0 [place] [address] [address] Jan, [place] [address] [place] [id number] [place] [phone] Jan, Trochanteric bursitis of both hips M70.61 [place] [address] [place] [id number] [place] [address] Jan, [place] [address] [place] [id number] [place] [address] Jan, [facility] [address] [place] [id number] [place] [address] Jan, [place] [address] [place] [id number] [place] [address] Jan, Right sided sciatica M54.31 [facility] [address] [place] [id number] [place] [address] Dec, Onychomycosis B35.1 [place] [address] [place] [id number] [place] [address] Dec, [facility] [address] [place] [id number] [place] [address] Dec, [facility] [address] [place] [address] [address] Dec, [facility] [address] [place] [address] Dec, Osteoarthritis of right hip, unspecified osteoarthritis type M16.11 and Bursitis of right hip M70.71 [facility] [address] [place] [id number] [place] [address] Nov, [place] [address] [place] [id number] [place] [address] Nov, [place] [address] [place] [id number] [place] [address] Nov, [place] [address] [place] [id number] [place] [address] Nov, Hypothyroidism, unspecified hypothyroidism type E03.9 ; Vitamin D deficiency E55.9 and History of hepatitis C Z86.19 [place] [address] [place] [id number] [place] [address] Nov, Right upper quadrant pain R10.11 ; History of hepatitis C Z86.19 and Low back pain M54.5 [place] [address] [place] [id number] [place] [address] Oct, Trochanteric bursitis, right hip M70.61 [place] [address] [place] [address] Oct, [facility] [address] [place] [id number] [place] [address] Oct, [facility] [address] [place] [id number] [place] [address] Oct, Trochanteric bursitis of both hips M70.61 and Right sided sciatica M54.31 [place] [address] [address] Oct, Trochanteric bursitis of both hips M70.61 [place] [address] [place] [id number] [place] [address] 14 Oct, 2015 RUQ abdominal pain R10.11 [place] [address] [address] 13 Oct, 2015 Sciatic leg pain M54.30 [place] [address] [address] 11 Oct, 2015 RUQ abdominal pain R10.11 [place] [address] [address] 07 Oct, 2015 RUQ abdominal pain R10.11 ; History of hepatitis C Z86.19 and Trigger point with back pain M54.9 [place] [address] [place] [id number] [place] [address] Sep, [place] [address] [address] Sep, Right sided sciatica M54.31 [place] [address] [place] [id number] [place] [address] Sep, Hypothyroidism, unspecified hypothyroidism type E03.9 and Vitamin D deficiency E55.9 [place] [address] [place] [address] [place] [address] Sep, Plantar fasciitis M72.2 and Porokeratosis Q82.8 [place] [address] [place] [address] [place] [address] Sep, Hypothyroidism, unspecified hypothyroidism type E03.9 ; Chronic pain syndrome G89.4 ; Polyneuropathy associated with underlying disease G63 and Vitamin D deficiency E55.9 [place] [address] [address] August, [place] [address] [place] [id number] [place] [address] Jul, Plantar fasciitis M72.2 [place] [address] [address] Jul, Trochanteric bursitis, right hip M70.61 [place] [address] [place] [id number] [place] [address] 07 Jul, 2015 Hypothyroidism, unspecified hypothyroidism type E03.9 [place] [address] [place] [address] [place] [address] 06 Jul, 2015 Hypothyroidism, unspecified hypothyroidism type E03.9 ; Chronic pain syndrome G89.4 and Polyneuropathy associated with underlying disease G63 [place] [address] [place] [address] [place] [address] 10 Jun, 2015 Trochanteric bursitis of both hips M70.61 [place] [address] [place] [address] [place] [address] 08 Jun, 2015 Vitamin D deficiency E55.9 ; Osteoporosis M81.0 ; Low back pain M54.5 and Plantar fasciitis M72.2 [place] [address] [place] [address] [place] [address] 26 May, 2015 Vitamin D deficiency E55.9 and Hypothyroidism, unspecified hypothyroidism type E03.9 [place] [address] [place] [id number] [place] [address] 23 May, 2015 Acute maxillary sinusitis J01.00 [place] [address] [place] [id number] [place] [address] 18 May, 2015 Osteoporosis M81.0 and Hypothyroidism, unspecified hypothyroidism type E03.9 [place] [address] [place] [address] [place] [address] 16 May, 2015 Osteoporosis M81.0 [place] [address] [place] [address] [place] [address] 15 May, 2015 [place] [address] [place] [address] [place] [address] 14 Apr, 2015 [place] [address] [place] [id number] [place] [address] Apr, Trochanteric bursitis of both hips M70.61 [place] [address] [place] [address] [place] [address] Apr, Hypothyroidism, unspecified hypothyroidism type E03.9 [place] [address] [place] [address] [place] [address] Apr, Chronic pain syndrome G89.4 ; Bilateral low back pain with sciatica, sciatica laterality unspecified M54.40 ; Pain in right hip M25.551 ; Pain in left hip M25.552 ; Chronic prescription opiate use Z79.899 ; Primary insomnia F51.01 and Hypothyroidism, unspecified hypothyroidism type E03.9 [place] [address] [place] [address] [place] [address] Mar, [place] [address] [address] Feb, [place] [address] [address] Feb, Chronic pain syndrome G89.4 and Major depression F32.9 [place] [address] [address] Feb, Fatigue R53.83 [place] [address] [place] [address] [place] [address] Feb, History of fracture Z87.81 [place] [address] [place] [id number] [place] [address] Feb, Major depression, recurrent F33.9 and Generalized anxiety disorder F41.1 [place] [address] [place] [id number] [place] [address] Feb, [place] [address] [place] [id number] [place] [address] Jan, Hypothyroidism, unspecified hypothyroidism type E03.9 [place] [address] [address] Jan, Abdominal pain R10.9 and Hypothyroidism, unspecified hypothyroidism type E03.9 [place] [address] [place] [id number] [place] [address] Jan, Abdominal pain R10.9 [place] [address] [place] [id number] [place] [address] Jan, Hypothyroidism, unspecified hypothyroidism type E03.9 [place] [address] [address] Jan, [place] [address] [address] Jan, 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 and Hypothyroidism, unspecified hypothyroidism type E03.9 [place] [address] [place] [address] [place] [address] Jan, 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 ; Abdominal pain R10.9 ; Dyspareunia N94.1 ; Encounter for immunization Z23 ; History of fracture Z87.81 ; Fatigue R53.83 ; Throat fullness R68.89 ; Bruises easily R23.8 ; Hot flashes N95.1 ; Depression F32.9 and Vaginal atrophy N95.2 [place] [address] [place] [address] [place] [address] Jan, Hypothyroidism, unspecified hypothyroidism type E03.9 [place] [address] [place] [phone] Jan, Unspecified abdominal pain R10.9 ; Chronic obstructive pulmonary disease, unspecified COPD type J44.9 ; Allergic rhinitis, unspecified allergic rhinitis type J30.9 ; Chronic pain syndrome G89.4 ; Hypothyroidism, unspecified hypothyroidism type E03.9 ; Chest pain, unspecified chest pain type R07.9 and Plantar fasciitis M72.2 [place] [address] [place] [address] [place] [address] Jan, Trochanteric bursitis of both hips M70.61 [facility] [address] [place] [id number] [place] [address] Dec, [facility] [address] [place] [id number] [place] [address] Nov, [facility] [address] [place] [id number] [place] [address] Nov, [facility] [address] [place] [id number] [place] [address] Nov, Constipation 564.00 [facility] [address] [address] Oct, Chronic pain 338.29 and Hypothyroidism 244.9 [facility] [address] [place] [id number] [place] [address] Oct, [facility] [address] [place] [id number] [place] [address] Sep, [facility] [address] [place] [id number] [place] [address] Sep, [facility] [address] [place] [id number] [place] [address] Sep, [facility] [address] [place] [id number] [place] [address] Sep, [facility] [address] [place] [id number] [place] [address] Sep, [facility] [address] [place] [id number] [place] [address] Sep, [facility] [address] [place] [id number] [place] [address] Sep, COPD exacerbation 491.21 ; Chronic pain 338.29 ; Hypothyroidism 244.9 and Pancytopenia 284.19 [facility] [address] [id number] [place] [address] August, [facility] [place] [facility] [address] [id number] [place] [address] Jul, [facility] [place] [facility] [address] [id number] [place] [address] Jul, [facility] [place] [facility] [address] [facility] [id number] [place] [address] Jun, [facility] [place] [facility] [address] [facility] [id number] [place] [address] Jun, [facility] [place] [facility] [address] [id number] [place] [address] Jun, [facility] [place] [facility] [address] [facility] [id number] [place] [address] Jun, [facility] [place] [facility] [address] [facility] [id number] [place] [address] Jun, [facility] [place] [facility] [address] [facility] [id number] [place] [address] May, [facility] [place] [facility] [address] [facility] [id number] [place] [address] May, [facility] [place] [facility] [address] [facility] [id number] [place] [address] May, [facility] [place] [facility] [address] [facility] [id number] [place] [address] May, [facility] [place] [facility] [address] [facility] [id number], [place] [address] May, [facility] [place] [facility] [address] [facility] [id number] [place] [address] May, [facility] [place] [facility] [address] [facility] [id number] [place] [address] May, [facility] [place] [facility] [address] [facility] [id number] [place] [address] May, [facility] [place] [facility] [address] [address] [id number] [place] [address] May, 2014 [facility] [place] [facility] [address] [id number] [place] [address] May, 2014 [facility] [place] [facility] [address] [id number] [place] [address] May, 2014 [facility] [place] [facility] [address] [id number] [place] [address] May, 2014 [facility] [place] [facility] [address] [id number] [place] [address] May, [facility] [place] [facility] [address] [id number] [place] [address] Apr, [facility] [place] [facility] [address] [facility] [id number] [place] [address] Apr, [facility] [place] [facility] [address] [id number] [place] [address] Apr, [facility] [place] [facility] [address] [id number] [place] [address] Apr, [facility] [place] [facility] [address] [facility] [id number] [place] [address] Apr, [facility] [place] [facility] [address] [facility] [id number] [place] [address] Apr, [facility] [place] [facility] [address] [id number] [place] [address] Apr, [facility] [place] [facility] [address] [id number] [place] [address] Mar, [facility] [place] [facility] [address] [id number] [place] [address] Mar, [facility] [place] [facility] [address] [id number] [place] [address] Mar, [facility] [place] [facility] [address] [id number] [place] [address] Mar, [facility] [place] [facility] [address] [id number] [place] [address] Mar, [facility] [place] [facility] [address] [id number] [place] [address] Mar, [facility] [place] [facility] [address] [id number] [place] [address] Feb, [facility] [place] [facility] [address] [id number] [place] [address] Feb, [facility] [place] [facility] [address] [id number] [place] [address] Feb, [facility] [place] [facility] [address] [id number] [place] [address] Feb, [facility] [place] [facility] [address] [id number] [place] [address] Feb, [facility] [place] [facility] [address] [id number] [place] [address] Feb, [facility] [place] [facility] [address] [id number] [place] [address] Jan, [facility] [place] [facility] [address] [id number] [place] [address] Jan, [facility] [place] [facility] [address] [id number], [place] [address] Jan, [facility] [place] [facility] [address] [id number], [place] [address] Jan, [facility] [place] [facility] [address] [id number] [place] [address] Jan, [facility] [place] [facility] [address] [id number] [place] [address] Jan, [facility] [place] [facility] [address] [id number] [place] [address] Jan, [facility] [place] [facility] [address] [id number] [place] [address] Jan, [facility] [place] [facility] [address] [id number] [place] [address] Dec, [facility] [place] [facility] [address] [id number] [place] [address] Dec, [facility] [place] [facility] [address] [id number] [place] [address] Dec, [facility] [place] [facility] [address] [id number] [place] [address] Dec, [facility] [place] [facility] [address] [id number] [place] [address] Dec, [facility] [place] [facility] [address] [id number] [place] [address] Dec, [facility] [place] [facility] [address] [id number] [place] [address] Dec, [facility] [place] [facility] [address] [id number] [place] [address] Nov, [facility] [place] [facility] [address] [id number] [place] [address] Nov, [facility] [place] [facility] [address] [id number] [place] [address] Oct, [facility] [place] [facility] [address] [id number] [place] [address] Oct, [facility] [place] [facility] [address] [id number] [place] [address] Oct, [facility] [place] [facility] [address] [id number] [place] [address] Oct, [facility] [place] [facility] [address] [id number] [place] [address] Sep, [facility] [place] [facility] [address] [id number] [place] [address] Sep, [facility] [place] [facility] [address] [id number] [place] [address] Sep, [facility] [place] [facility] [address] [id number] [place] [address] Sep, [facility] [place] [facility] [address] [id number] [place] [address] Sep, [facility] [place] [facility] [address] [id number] [place] [address] Sep, [facility] [place] [facility] [address] [id number] [place] [address] Sep, [facility] [place] [facility] [address] [id number] [place] [address] Sep, [facility] [place] [facility] [address] [id number] [place] [address] August, [facility] [place] [facility] [address] [id number] [place] [address] August, [facility] [place] [facility] [address] [id number] [place] [address] August, [facility] [place] [facility] [address] [id number] [place] [address] August, [facility] [place] [facility] [address] [id number] [place] [address] Jul, [facility] [place] [facility] [address] [id number] [place] [address] Jul, [facility] [place] [facility] [address] [id number] [place] [address] Jul, [facility] [place] [facility] [address] [id number] [place] [address] Jul, [facility] [place] [facility] [address] [id number] [place] [address] Jul, [facility] [place] [facility] [address] [id number], [place] [address] 16 Jul, 2013 [facility] [place] [facility] [address] [id number] [place] [address] 15 Jul, 2013 [facility] [place] [facility] [address] [id number] [place] [address] 15 Jul, 2013 [facility] [place] [facility] [address] [facility] [id number] [place] [address] 18 Jun, 2013 [facility] [place] [facility] [address] [id number] [place] [address] 18 Jun, 2013 [facility] [place] [facility] [address] [id number] [place] [address] Jun, [facility] [place] [facility] [address] [facility] [id number] [place] [address] Jun, [facility] [place] [facility] [address] [facility] [id number] [place] [address] Jun, [facility] [place] [facility] [address] [id number] [place] [address] Jun, [facility] [place] [facility] [address] [id number] [place] [address] Jun, [facility] [place] [facility] [address] [facility] [id number] [place] [address] Jun, [facility] [place] [facility] [address] [id number] [place] [address] May, [facility] [place] [facility] [address] [id number] [place] [address] May, [facility] [place] [facility] [address] [id number] [place] [address] Apr, [facility] [place] [facility] [address] [id number] [place] [address] Apr, [facility] [place] [facility] [address] [facility] [id number], [place] [address] Mar, [facility] [place] [facility] [address] [id number] [place] [address] 24 Mar, 2013 [facility] [place] [facility] [address] [id number] [place] [address] Mar, [facility] [place] [facility] [address] [id number] [place] [address] Mar, [facility] [place] [facility] [address] [id number] [place] [address] Mar, [facility] [place] [facility] [address] [id number] [place] [address] Mar, [facility] [place] [facility] [address] [id number] [place] [address] Mar, [facility] [place] [facility] [address] [id number] [place] [address] Feb, [facility] [place] [facility] [address] [id number] [place] [address] Feb, [facility] [place] [facility] [address] [id number] [place] [address] Feb, [facility] [place] [facility] [address] [id number] [place] [address] Feb, [facility] [place] [facility] [address] [id number] [place] [address] Feb, [facility] [place] [facility] [address] [id number] [place] [address] 04 Feb, 2013 [facility] [place] [facility] [address] [id number] [place] [address] 26 Dec, 2012 [facility] [place] [facility] [address] [id number] [place] [address] 18 Dec, 2012 [facility] [place] [facility] [address] [id number] [place] [address] 13 Dec, 2012 [facility] [place] [facility] [address] [id number] [place] [address] Dec, [facility] [address] [id number] [place] [address] Dec, [facility] [address] [id number] [place] [address] Nov, [facility] [address] [id number] [place] [address] Nov, [facility] [place] [facility] [address] [id number] [place] [address] Oct, [facility] [address] [id number] [place] [address] August, [facility] [address] [id number] [place] [address] August, [facility] [address] [id number] [place] [address] August, [facility] [address] [id number] [place] [address] Jul, [facility] [address] [id number] [place] [address] Jul, [facility] [place] [facility] [address] [id number] [place] [address] Jul, [facility] [address] [id number] [place] [address] Jun, [facility] [place] [facility] [address] [id number] [place] [address] Jun, [facility] [place] [facility] [address] [id number] [place] [address] Jun, [facility] [place] [facility] [address] [id number] [place] [address] Jun, [facility] [place] [facility] [address] [id number] [place] [address] Jun, [facility] [place] [facility] [address] [id number] [place] [address] 15 Jun, 2012 [facility] [address] [id number] [place] [address] 12 Jun, 2012 [facility] [place] [facility] [address] [id number] [place] [address] 18 May, 2012 [facility] [address] [id number] [place] [address] 11 May, 2012 [facility] [place] [facility] [address] [id number] [place] [address] 06 May, 2012 [facility] [address] [id number] [place] [address] 05 May, 2012 [facility] [address] [id number] [place] [address] Apr, [facility] [address] [id number] [place] [address] Apr, [facility] [address] [id number] [place] [address] Apr, [facility] [address] [id number] [place] [address] Mar, [facility] [address] [id number] [place] [address] Mar, [facility] [place] [facility] [address] [id number] [place] [address] Mar, [facility] [address] [id number] [place] [address] Mar, [facility] [place] [facility] [address] [id number] [place] [address] Mar, [facility] [place] [facility] [address] [id number] [place] [address] Mar, [facility] [place] [facility] [address] [id number] [place] [address] Mar, [facility] [place] [facility] [address] [id number] [place] [address] Mar, [facility] [place] [facility] [address] [id number] [place] [address] Feb, [facility] [place] [facility] [address] [id number] [place] [address] Feb, [facility] [place] [facility] [address] [id number] [place] [address] Feb, [facility] [place] [facility] [address] [id number] [place] [address] Jan, [facility] [place] [facility] [address] [id number] [place] [address] Jan, [facility] [place] [facility] [address] [id number] [place] [address] Jan, [facility] [place] [facility] [address] [id number], [place] [address] Jan, [facility] [place] [facility] [address] [id number] [place] [address] Jan, [facility] [place] [facility] [address] [id number], [place] [address] Jan, [facility] [place] [facility] [address] [id number], [place] [address] Jan, [facility] [place] [facility] [address] [id number], [place] [address] Dec, [facility] [place] [facility] [address] [id number] [place] [address] 24 Dec, 2011 [facility] [place] [facility] [address] [id number], [place] [address] Dec, [facility] [place] [facility] [address] [id number] [place] [address] 30 Nov, 2011 [facility] [place] [facility] [address] [id number] [place] [address] Nov, [facility] [place] [facility] [address] [id number] [place] [address] Nov, [facility] [place] [facility] [address] [id number] [place] [address] Nov, [facility] [place] [facility] [address] [id number] [place] [address] Oct, [facility] [place] [facility] [address] [id number] [place] [address] Oct, [facility] [place] [facility] [address] [id number] [place] [address] Oct, [facility] [place] [facility] [address] [id number] [place] [address] Sep, [facility] [place] [facility] [address] [id number] [place] [address] Sep, [facility] [place] [facility] [address] [id number] [place] [address] Sep, [facility] [place] [facility] [address] [id number] [place] [address] Sep, [facility] [place] [facility] [address] [id number] [place] [address] Sep, [facility] [place] [facility] [address] [id number] [place] [address] Sep, [facility] [place] [facility] [address] [id number] [place] [address] August, [facility] [place] [facility] [address] [id number] [place] [address] Jul, [facility] [place] [facility] [address] [id number] [place] [address] Jul, [facility] [place] [facility] [address] [id number] [place] [address] Jul, [facility] [place] [facility] [address] [id number] [place] [address] 05 Jul, 2011 [facility] [place] [facility] [address] [id number] [place] [address] Jul, [facility] [place] [facility] [address] [id number] [place] [address] 29 Jun, 2011 [facility] [place] [facility] [address] [id number] [place] [address] 27 Jun, 2011 [facility] [place] [facility] [address] [id number] [place] [address] 15 Jun, 2011 [facility] [place] [facility] [address] [id number] [place] [address] 15 Jun, 2011 [facility] [place] [facility] [address] [facility] [id number] [place] [address] Jun, [facility] [place] [facility] [address] [id number] [place] [address] May, [facility] [place] [facility] [address] [id number] [place] [address] May, [facility] [place] [facility] [id number] [address] May, [facility] [place] [facility] [address] [id number] [address] May, [facility] [place] [facility] [address] [id number] [place] [address] May, [facility] [place] [facility] [address] [id number] [place] [address] May, [facility] [place] [facility] [address] [id number] [place] [address] May, [facility] [place] [facility] [address] [id number] [place] [address] Apr, [facility] [place] [facility] [address] [id number] [place] [address] 29 Mar, 2011 [facility] [place] [facility] [address] [id number] [place] [address] 13 Mar, 2011 [facility] [place] [facility] [address] [id number] [place] [address] 10 Mar, 2011 [facility] [place] [facility] [address] [id number] [place] [address] Mar, [facility] [place] [facility] [address] [id number] [place] [address] 08 Mar, 2011 [facility] [place] [facility] [address] [id number] [place] [address] 23 Feb, 2011 [facility] [place] [facility] [address] [id number] [place] [address] 14 Feb, 2011 [facility] [place] [facility] [address] [id number] [place] [address] 14 Feb, 2011 [facility] [place] [facility] [address] [id number] [place] [address] 14 Feb, 2011 [facility] [place] [facility] [address] [id number] [place] [address] Feb, [facility] [place] [facility] [address] [id number] [place] [address] Feb, [facility] [place] [facility] [address] [id number] [place] [address] Feb, [facility] [place] [facility] [address] [id number] [place] [address] Jan, [facility] [place] [facility] [address] [id number] [place] [address] 12 Dec, 2010 [facility] [place] [facility] [address] [id number] [place] [address] Oct, [facility] [place] [facility] [address] [id number] [place] [address] Jun, [facility] [place] [facility] [address] [id number] [place] [address] 23 Mar, 2010 [facility] [place] [facility] [address] [id number] [place] [address] 23 Mar, 2010 [facility] [place] [facility] [address] [id number] [place] [address] 16 Mar, 2010 [facility] [place] [facility] [address] [id number] [place] [address] 16 Mar, 2010 [facility] [place] [facility] [address] [id number] [place] [address] 15 Mar, 2010 [facility] [place] [facility] [address] [id number] [place] [address] 10 Mar, 2010 [facility] [place] [facility] [address] [id number] [place] [address] 10 Mar, 2010 [facility] [place] [facility] [address] [id number] [place] [address] 05 Mar, 2010 [facility] [address] [id number] [place] [address] 03 Mar, 2010 [facility] [place] [facility] [address] [id number] [place] [address] 02 Mar, 2010 [facility] [place] [facility] [address] [id number] [place] [address] Jan, [facility] [place] [facility] [address] [id number] [place] [address] Jan, [facility] [place] [facility] [address] [id number] [place] [address] Jan, [facility] [place] [facility] [address] [id number] [place] [address] Nov, [facility] [place] [facility] [address] [id number] [place] [address] 13 Oct, 2009 [facility] [place] [facility] [address] [id number] [place] [address] Mar, [facility] [address] [id number] [address] Mar, [facility] [address] [place] [address] Mar, [facility] [address] [id number] [address] Mar, [facility] [address] [place] [address] Dec, [facility] [address] [place] [address] August, [facility] [address] [place] [address] August, [facility] [address] [place] [address] Jul, [facility] [address] [place] [address] Jan, [facility] [address] [id number] [address] Jan, IMMUNIZATIONS No Known Immunizations SOCIAL HISTORY Never Assessed REASON FOR VISIT Controlled Med Refill PLAN OF CARE VITAL SIGNS MEDICATIONS Medication Instructions Dosage Frequency Start Date End Date Duration Status Hydrocodone-Acetaminophen 10-325 MG Orally 2 times a day 1 tablet as needed 12h Jan, 28 days Active RESULTS No Results PROCEDURES [...] surgeries Hospitalization History multiple hospital stays for [facility]
--- OUTSIDE RECORDS SUMMARY | 2018-09-22 03:03 | XMS REPORT ---
Author Author FLORENTINEZEKIEL PUCKETT Organization [facility] Address [address] [place] [address] Care Team Providers Care Machine Feller Name Role Phone DANICA LERMAY Unavailable PROBLEMS Type Condition ICD9-CM Code [id number] Code Onset Dates Condition Status SNOMED Code Problem Chronic gastritis without bleeding, unspecified gastritis type K29.50 Active 3572571 Problem Vitamin D deficiency E55.9 Active 19904238 Problem Osteoporosis M81.0 Active 56348943 Problem Unspecified abdominal pain R10.9 Active 961762290 Problem Fibromyalgia M79.7 Active 51583568 Problem Chronic pain syndrome G89.4 Active 582252045 Problem Trigger point with back pain M54.9 Active 484588938 Problem Chronic tension-type headache, not intractable G44.229 Active 170271817 Problem RUQ abdominal pain R10.11 Active 396842307 Problem Pancytopenia D61.818 Active 473385556 Problem Right sided sciatica M54.31 Active 09688441 Problem Chronic prescription opiate use Z79.891 Active 526206985 Problem Drug induced constipation K59.03 Active 100881428473768 Problem Leukopenia, unspecified type D72.819 Active 04282777 Problem Atrial fibrillation, unspecified type I48.91 Active 95491644 Problem Allergic rhinitis, unspecified allergic rhinitis type J30.9 Active 73997180 Problem Chronic obstructive pulmonary disease, unspecified COPD type J44.9 Active 37845090 Problem Hypothyroidism, unspecified hypothyroidism type E03.9 Active 17922030 Problem Other constipation K59.09 Active 418680716 Problem Porokeratosis Q82.8 Active 347477043 Problem 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 Active 649260348 Problem Allergy to intravenous contrast Z91.041 Active 983802632 Problem Vaginal atrophy N95.2 Active 531557039 Problem Major depression, recurrent F33.9 Active 61759135 Problem History of hepatitis C Z86.19 Active 36812559490284 Problem Hot flashes N95.1 Active 160243402 Problem Plantar fasciitis M72.2 Active 572936888 Problem Polyneuropathy associated with underlying disease G63 Active 062161987 Problem Primary insomnia F51.01 Active 5947585 Problem Low back pain M54.5 Active 959095193 ALLERGIES No Information ENCOUNTERS Encounter Location Date Diagnosis [facility] [id number] [address] Nov, [facility] [id number] [place] [id number] Nov, [facility] [id number] [place] [address] Oct, [facility] [id number] [place] [address] Sep, Chronic pain syndrome G89.4 [facility] [id number] [place] [address] August, Somatic dysfunction of lumbar region M99.03 and Somatic dysfunction of pelvis region M99.05 [facility] [id number] [place] [address] August, Chronic pain syndrome G89.4 [facility] [id number] [place] [address] Jul, Trochanteric bursitis of left hip M70.62 and Trochanteric bursitis, right hip M70.61 [facility] [id number] [place] [address] Jul, [facility] [id number] [place] [address] Jul, Chronic pain syndrome G89.4 [facility] [id number] [place] [address] Jul, Hypothyroidism, unspecified hypothyroidism type E03.9 [facility] [id number] [place] [address] Jul, Hypothyroidism, unspecified hypothyroidism type E03.9 [facility] [id number] [place] [address] Jul, Chronic tension-type headache, not intractable G44.229 ; Atrial fibrillation, unspecified type I48.91 ; Chronic pain syndrome G89.4 ; Hypothyroidism, unspecified hypothyroidism type E03.9 ; Pancytopenia D61.818 ; History of hepatitis C Z86.19 ; Vaginal atrophy N95.2 ; RUQ abdominal pain R10.11 ; Chronic prescription opiate use Z79.891 ; Osteoporosis M81.0 and Screening for breast cancer Z12.31 [facility] [id number] [place] [address] Jun, [facility] [id number] [place] [address] May, [facility] [id number] [place] [address] May, [facility] [id number] [place] [address] May, [facility] [id number] [place] [address] Apr, [facility] [id number] [place] [address] Apr, Hypothyroidism, unspecified hypothyroidism type E03.9 [facility] [id number] [place] [address] Apr, Hypothyroidism, unspecified hypothyroidism type E03.9 and Leukopenia, unspecified type D72.819 [facility] [id number] [place] [address] Mar, [facility] [id number] [place] [address] Mar, Leukopenia, unspecified type D72.819 [facility] [id number] [place] [address] Mar, Hypothyroidism, unspecified hypothyroidism type E03.9 and Low hemoglobin D64.9 [place] [address] [address] Mar, Hypothyroidism, unspecified hypothyroidism type E03.9 [place] [address] [address] Mar, Osteoporosis M81.0 ; Low hemoglobin D64.9 and Hypothyroidism, unspecified hypothyroidism type E03.[address] [address] Mar, Hypothyroidism, unspecified hypothyroidism type E03.9 ; Bilirubin in urine R82.2 and Pancytopenia D61.[address] [address] Feb, [facility] [address] [address] Feb, Cough R05 and Bronchitis J40 [facility] [address] [address] 14 Feb, 2017 Other viral agents as the cause of diseases classified elsewhere B97.89 and Acute upper respiratory infection, unspecified J06.[address] [address] Feb, Fibromyalgia M79.7 ; Chronic pain syndrome G89.4 ; Hypothyroidism, unspecified hypothyroidism type E03.9 ; Primary insomnia F51.01 ; Osteoporosis M81.0 ; Vision abnormalities H53.9 ; Pancytopenia D61.818 ; BMI 28.0-28.9,adult Z68.28 and Encounter for immunization Z23 [address] [address] Feb, Neuroma D36.10 and Capsulitis of right foot M77.[address] [address] Feb, [facility] [address], [place] [address] Feb, Hypothyroidism, unspecified hypothyroidism type E03.9 [facility] [id number] [place] [address] Jan, [facility] [id number] [place] [address] Jan, Atrial fibrillation, unspecified type I48.91 [facility] [id number] [place] [address] Jan, [facility] [id number] [place] [address] Jan, Fibromyalgia M79.7 ; Atrial fibrillation, unspecified type I48.91 ; Pain of left hand M79.642 ; Pain in right hand M79.641 ; Chronic prescription opiate use Z79.891 ; Chronic pain syndrome G89.4 ; Elevated fasting glucose R73.01 and Hypothyroidism, unspecified hypothyroidism type E03.9 [facility] [address], [place] [address] Jan, [facility] [id number] [place] [address] Dec, Trochanteric bursitis of both hips M70.61 [facility] [id number] [place] [address] Dec, [facility] [id number] [place] [address] Dec, [facility] [id number] [place] [address] Nov, [facility] [id number] [place] [address] Nov, Unilateral headache R51 [facility] [id number] [place] [address] Nov, [facility] [id number] [place] [address] Oct, Unilateral headache R51 ; 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 and Allergy to intravenous contrast Z91.041 [facility] [id number] [place] [address] Oct, [facility] [id number] [place] [address] Oct, [facility] [address] [address] Sep, Hypothyroidism, unspecified hypothyroidism type E03.9 [place] [address] [address] Sep, Hypothyroidism, unspecified hypothyroidism type E03.9 and Bilirubin in urine R82.2 [facility] [id number] [place] [address] Sep, Trochanteric bursitis of both hips M70.61 [facility] [id number] [place] [address] Sep, Hypothyroidism, unspecified hypothyroidism type E03.9 ; Dysuria R30.0 ; Chronic tension-type headache, not intractable G44.229 and Drug induced constipation K59.03 [place] [id number] [place] [address] Sep, [facility] [id number] [place] [address] Sep, [facility] [id number] [place] [address] August, [facility] [id number] [place] [address] Jul, [facility] [id number] [place] [address] Jul, Trochanteric bursitis of right hip M70.61 [facility] [id number] [place] [address] Jul, Hypothyroidism, unspecified hypothyroidism type E03.9 [facility] [address] [address] Jul, Fibromyalgia M79.7 ; Chronic pain syndrome G89.4 ; Hypothyroidism, unspecified hypothyroidism type E03.9 and Other constipation K59.09 [facility] [address] [address] Jun, Swollen tonsil J35.1 and Strep throat J02.0 [place] [address] [address] Jun, [place] [address] [address] Jun, Acute maxillary sinusitis J01.00 [place] [address] [address] Jun, Hypothyroidism, unspecified hypothyroidism type E03.9 [facility] [id number] [place] [address] Jun, Chronic pain syndrome G89.4 ; Fibromyalgia M79.7 ; Hypothyroidism, unspecified hypothyroidism type E03.9 and Chronic prescription opiate use Z79.891 [facility] [id number] [place] [address] May, [place] [address] [address] Apr, Hypothyroidism, unspecified hypothyroidism type E03.9 [facility] [id number] [place] [address] Apr, [place] [address] [address] Apr, Lipid screening Z13.220 and Hypothyroidism, unspecified hypothyroidism type E03.9 [facility] [address] [address] Apr, [facility] [id number] [place] [address] Mar, Trochanteric bursitis of both hips M70.61 [facility] [id number] [place] [address] Mar, [facility] [id number] [place] [address] Mar, Plantar fasciitis M72.2 and Porokeratosis Q82.8 [facility] [id number] [place] [address] Feb, Lipid screening Z13.220 ; Vitamin D deficiency E55.9 and Hypothyroidism, unspecified hypothyroidism type E03.9 [facility] [id number] [place] [address] 16 Feb, 2016 Chronic pain syndrome G89.4 ; Hypothyroidism, unspecified hypothyroidism type E03.9 ; Pancytopenia D61.818 ; Vaginal atrophy N95.2 ; Chronic gastritis without bleeding, unspecified gastritis type K29.50 ; Vitamin D deficiency E55.9 ; Chronic prescription opiate use Z79.891 ; Adverse effect of other opioids, initial encounter T40.2X5A ; Drug induced constipation K59.03 ; Lipid screening Z13.220 and Encounter for immunization Z23 [facility] [id number] [place] [address] Feb, [facility] [place] [id number] [place] [address] Feb, Ingrown toenail L60.0 [facility] [id number] [place] [address] Jan, [place] [address] [address] Jan, Trochanteric bursitis of both hips M70.61 [facility] [id number] [place] [address] Jan, [facility] [address] [place] [address] Jan, [facility] [id number] [place] [address] Jan, [facility] [address], [place] [address] Jan, Right sided sciatica M54.31 [facility] [id number] [place] [address] 23 Dec, 2015 Onychomycosis B35.1 [facility] [id number] [place] [address] 22 Dec, 2015 [facility] [id number] [place] [address] Dec, [facility] [id number] [place] [address] Dec, [facility] [id number] [place] [address] Dec, Osteoarthritis of right hip, unspecified osteoarthritis type M16.11 and Bursitis of right hip M70.71 [facility] [address], [place] [address] Nov, [facility] [address], [place] [address] Nov, [facility] [address], [place] [address] Nov, [facility] [id number] [place] [address] Nov, Hypothyroidism, unspecified hypothyroidism type E03.9 ; Vitamin D deficiency E55.9 and History of hepatitis C Z86.19 [facility] [address], [place] [address] Nov, Right upper quadrant pain R10.11 ; History of hepatitis C Z86.19 and Low back pain M54.5 [facility] [id number] [place] [address] Oct, Trochanteric bursitis, right hip M70.61 [facility] [id number] [place] [address] Oct, [facility] [id number] [place] [address] Oct, [facility] [id number] [place] [address] Oct, Trochanteric bursitis of both hips M70.61 and Right sided sciatica M54.31 [facility] [id number] [place] [address] Oct, Trochanteric bursitis of both hips M70.61 [facility] [id number] [place] [address] Oct, RUQ abdominal pain R10.11 [facility] [id number] [place] [address] Oct, Sciatic leg pain M54.30 [facility] [id number] [place] [address] Oct, RUQ abdominal pain R10.11 [facility] [id number] [place] [address] 07 Oct, 2015 RUQ abdominal pain R10.11 ; History of hepatitis C Z86.19 and Trigger point with back pain M54.9 [facility] [id number] [place] [address] Sep, [facility] [id number] [place] [address] Sep, Right sided sciatica M54.31 [facility] [id number] [place] [address] Sep, Hypothyroidism, unspecified hypothyroidism type E03.9 and Vitamin D deficiency E55.9 [facility] [id number] [place] [address] Sep, Plantar fasciitis M72.2 and Porokeratosis Q82.8 [facility] [id number] [place] [address] Sep, Hypothyroidism, unspecified hypothyroidism type E03.9 ; Chronic pain syndrome G89.4 ; Polyneuropathy associated with underlying disease G63 and Vitamin D deficiency E55.9 [facility] [id number] [place] [address] August, [place] [address] [address] Jul, Plantar fasciitis M72.2 [place] [address] [address] Jul, Trochanteric bursitis, right hip M70.61 [facility] [id number] [place] [address] Jul, Hypothyroidism, unspecified hypothyroidism type E03.9 [facility] [id number] [place] [address] Jul, Hypothyroidism, unspecified hypothyroidism type E03.9 ; Chronic pain syndrome G89.4 and Polyneuropathy associated with underlying disease G63 [facility] [id number] [place] [address] Jun, Trochanteric bursitis of both hips M70.61 [facility] [id number] [place] [address] Jun, Vitamin D deficiency E55.9 ; Osteoporosis M81.0 ; Low back pain M54.5 and Plantar fasciitis M72.2 [facility] [id number] [place] [address] May, Vitamin D deficiency E55.9 and Hypothyroidism, unspecified hypothyroidism type E03.9 [facility] [id number] [place] [address] 23 May, 2015 Acute maxillary sinusitis J01.00 [facility] [id number] [place] [address] 18 May, 2015 Osteoporosis M81.0 and Hypothyroidism, unspecified hypothyroidism type E03.9 [facility] [id number] [place] [address] May, Osteoporosis M81.0 [facility] [id number] [place] [address] May, [facility] [id number] [place] [address] Apr, [facility] [id number] [place] [address] Apr, Trochanteric bursitis of both hips M70.61 [facility] [id number] [place] [address] Apr, Hypothyroidism, unspecified hypothyroidism type E03.9 [facility] [id number] [place] [address] Apr, Chronic pain syndrome G89.4 ; Bilateral low back pain with sciatica, sciatica laterality unspecified M54.40 ; Pain in right hip M25.551 ; Pain in left hip M25.552 ; Chronic prescription opiate use Z79.899 ; Primary insomnia F51.01 and Hypothyroidism, unspecified hypothyroidism type E03.9 [facility] [address] [place] [address] Mar, [facility] [id number] [place] [address] Feb, [facility] [id number] [place] [address] Feb, Chronic pain syndrome G89.4 and Major depression F32.9 [facility] [id number] [place] [address] 16 Feb, 2015 Fatigue R53.83 [place] [address] [address] 13 Feb, 2015 History of fracture Z87.81 [facility] [id number] [place] [address] 12 Feb, 2015 Major depression, recurrent F33.9 and Generalized anxiety disorder F41.1 [facility] [id number] [place] [address] Feb, [place] [address] [address] Jan, Hypothyroidism, unspecified hypothyroidism type E03.9 [facility] [id number] [place] [address] Jan, Abdominal pain R10.9 and Hypothyroidism, unspecified hypothyroidism type E03.9 [facility] [id number] [place] [address] Jan, Abdominal pain R10.9 [facility] [id number] [place] [address] Jan, Hypothyroidism, unspecified hypothyroidism type E03.9 [facility] [id number] [place] [address] Jan, [facility] [id number] [place] [address] Jan, 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 and Hypothyroidism, unspecified hypothyroidism type E03.9 [facility] [id number] [place] [address] Jan, 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 ; Abdominal pain R10.9 ; Dyspareunia N94.1 ; Encounter for immunization Z23 ; History of fracture Z87.81 ; Fatigue R53.83 ; Throat fullness R68.89 ; Bruises easily R23.8 ; Hot flashes N95.1 ; Depression F32.9 and Vaginal atrophy N95.2 [facility] [id number] [place] [address] Jan, Hypothyroidism, unspecified hypothyroidism type E03.9 [facility] [address] [address] Jan, Unspecified abdominal pain R10.9 ; Chronic obstructive pulmonary disease, unspecified COPD type J44.9 ; Allergic rhinitis, unspecified allergic rhinitis type J30.9 ; Chronic pain syndrome G89.4 ; Hypothyroidism, unspecified hypothyroidism type E03.9 ; Chest pain, unspecified chest pain type R07.9 and Plantar fasciitis M72.2 [place] [address] [address] Jan, Trochanteric bursitis of both hips M70.61 [facility] [address] [address] Dec, [facility] [address] [address] Nov, [facility] [id number] [place] [address] Nov, [facility] [address] [address] Nov, Constipation 564.00 [facility] [id number] [place] [address] Oct, Chronic pain 338.29 and Hypothyroidism 244.9 [facility] [address] [address] Oct, [facility] [id number] [place] [address] Sep, [facility] [address] [address] Sep, [facility] [address] [place] [address] Sep, [facility] [address] [place] [address] Sep, [facility] [address] [place] [address] Sep, [facility] [id number] [place] [id number] Sep, [facility] [id number] [place] [id number] Sep, COPD exacerbation 491.21 ; Chronic pain 338.29 ; Hypothyroidism 244.9 and Pancytopenia 284.19 [facility] [id number], [place] [address] August, [facility] [id number], [place] [address] Jul, [facility] [id number], [place] [address] Jul, [facility] [id number], [place] [address] Jun, [facility] [id number] [place] [address] Jun, [facility] [id number] [place] [address] Jun, [facility] [id number], [place] [address] Jun, [facility] [id number] [place] [address] Jun, [facility] [id number] [address] May, [facility] [id number] [place] [address] May, 2014 [facility] [place] [facility] [address] [id number] [place] [address] May, 2014 [facility] [place] [facility] [address] [id number] [place] [address] May, 2014 [facility] [place] [facility] [address] [facility] [id number] [place] [address] May, 2014 [facility] [place] [facility] [address] [address] [id number] [place] [address] May, 2014 [facility] [place] [facility] [address] [facility] [id number] [place] [address] May, 2014 [facility] [place] [facility] [address] [facility] [id number] [place] [address] May, 2014 [facility] [place] [facility] [address] [facility] [id number] [place] [address] May, 2014 [facility] [place] [facility] [address] [facility] [id number] [place] [address] May, [facility] [place] [facility] [address] [facility] [id number] [place] [address] May, [facility] [place] [facility] [address] [facility] [id number] [place] [address] May, [facility] [place] [facility] [address] [facility] [id number], [place] [address] May, [facility] [place] [facility] [address] [facility] [id number] [place] [address] Apr, [facility] [place] [facility] [address] [facility] [id number] [place] [address] Apr, [facility] [place] [facility] [address] [facility] [id number] [place] [address] Apr, [facility] [place] [facility] [address] [facility] [id number], [place] [address] Apr, [facility] [place] [facility] [address] [id number] [place] [address] Apr, [facility] [place] [facility] [address] [id number] [place] [address] Apr, [facility] [place] [facility] [address] [id number] [place] [address] Apr, [facility] [place] [facility] [address] [id number] [place] [address] Mar, [facility] [place] [facility] [address] [id number] [place] [address] Mar, [facility] [place] [facility] [address] [id number] [place] [address] Mar, [facility] [place] [facility] [address] [id number] [place] [address] Mar, [facility] [place] [facility] [address] [id number] [place] [address] Mar, [facility] [place] [facility] [address] [id number] [place] [address] Mar, [facility] [place] [facility] [address] [id number] [place] [address] Feb, [facility] [place] [facility] [address] [id number] [place] [address] Feb, [facility] [place] [facility] [address] [id number] [place] [address] Feb, [facility] [place] [facility] [address] [id number] [place] [address] Feb, [facility] [place] [facility] [address] [id number] [place] [address] Feb, [facility] [place] [facility] [address] [id number] [place] [address] Feb, [facility] [place] [facility] [address] [id number] [place] [address] Jan, [facility] [place] [facility] [address] [id number] [place] [address] Jan, [facility] [place] [facility] [address] [id number] [place] [address] Jan, [facility] [place] [facility] [address] [id number] [place] [address] Jan, [facility] [place] [facility] [address] [id number] [place] [address] Jan, [facility] [place] [facility] [address] [id number] [place] [address] Jan, [facility] [place] [facility] [address] [id number] [place] [address] Jan, [facility] [place] [facility] [address] [id number] [place] [address] Jan, [facility] [place] [facility] [address] [id number] [place] [address] Dec, [facility] [place] [facility] [address] [id number] [place] [address] 25 Dec, 2013 [facility] [place] [facility] [address] [id number] [place] [address] 23 Dec, 2013 [facility] [place] [facility] [address] [id number] [place] [address] 23 Dec, 2013 [facility] [place] [facility] [address] [id number] [place] [address] 13 Dec, 2013 [facility] [place] [facility] [address] [id number] [place] [address] 10 Dec, 2013 [facility] [place] [facility] [address] [id number] [place] [address] 10 Dec, 2013 [facility] [place] [facility] [address] [id number] [place] [address] Nov, [facility] [place] [facility] [address] [id number] [place] [address] Nov, [facility] [place] [facility] [address] [id number] [place] [address] Oct, [facility] [place] [facility] [address] [id number] [place] [address] Oct, [facility] [place] [facility] [address] [id number] [place] [address] Oct, [facility] [place] [facility] [address] [id number] [place] [address] Oct, [facility] [place] [facility] [address] [id number] [place] [address] Sep, [facility] [place] [facility] [address] [id number] [place] [address] Sep, [facility] [place] [facility] [address] [id number] [place] [address] Sep, [facility] [place] [facility] [address] [id number] [place] [address] Sep, [facility] [place] [facility] [address] [id number] [place] [address] Sep, [facility] [place] [facility] [address] [id number] [place] [address] Sep, [facility] [place] [facility] [address] [id number] [place] [address] Sep, [facility] [place] [facility] [address] [id number] [place] [address] Sep, [facility] [place] [facility] [address] [id number] [place] [address] August, [facility] [place] [facility] [address] [id number] [place] [address] August, [facility] [place] [facility] [address] [id number] [place] [address] August, [facility] [place] [facility] [address] [id number] [place] [address] August, [facility] [place] [facility] [address] [id number] [place] [address] Jul, [facility] [place] [facility] [address] [id number] [place] [address] Jul, [facility] [place] [facility] [address] [id number] [place] [address] Jul, [facility] [place] [facility] [address] [id number] [place] [address] 24 Jul, 2013 [facility] [place] [facility] [address] [id number] [place] [address] Jul, [facility] [place] [facility] [address] [id number] [place] [address] 16 Jul, 2013 [facility] [place] [facility] [address] [id number] [place] [address] Jul, [facility] [place] [facility] [address] [id number] [place] [address] Jul, [facility] [place] [facility] [address] [id number] [place] [address] Jun, [facility] [place] [facility] [address] [id number] [place] [address] Jun, [facility] [place] [facility] [address] [id number] [place] [address] Jun, [facility] [place] [facility] [address] [id number] [place] [address] Jun, [facility] [place] [facility] [address] [id number] [place] [address] Jun, [facility] [place] [facility] [address] [id number] [place] [address] Jun, [facility] [place] [facility] [address] [id number] [place] [address] Jun, [facility] [place] [facility] [address] [id number] [place] [address] Jun, [facility] [place] [facility] [address] [id number] [place] [address] May, [facility] [place] [facility] [address] [id number] [place] [address] May, [facility] [place] [facility] [address] [id number] [place] [address] Apr, [facility] [place] [facility] [address] [id number] [place] [address] Apr, [facility] [address] [id number] [place] [address] Mar, [facility] [place] [facility] [address] [id number] [place] [address] Mar, [facility] [place] [facility] [address] [id number] [place] [address] Mar, [facility] [place] [facility] [address] [id number] [place] [address] Mar, [facility] [place] [facility] [address] [id number] [place] [address] Mar, [facility] [place] [facility] [address] [id number] [place] [address] Mar, [facility] [place] [facility] [address] [id number] [place] [address] 17 Mar, 2013 [facility] [place] [facility] [address] [id number] [place] [address] Feb, [facility] [place] [facility] [address] [id number] [place] [address] Feb, [facility] [place] [facility] [address] [id number] [place] [address] Feb, [facility] [address] [id number] [place] [address] Feb, [facility] [place] [facility] [address] [id number] [place] [address] Feb, [facility] [place] [facility] [address] [id number] [place] [address] Feb, [facility] [place] [facility] [address] [id number] [place] [address] 26 Dec, 2012 [facility] [place] [facility] [address] [id number] [place] [address] 18 Dec, 2012 [facility] [place] [facility] [address] [id number] [place] [address] Dec, [facility] [place] [facility] [address] [id number] [place] [address] Dec, [facility] [place] [facility] [address] [id number] [place] [address] Dec, [facility] [place] [facility] [address] [id number] [place] [address] Nov, [facility] [place] [facility] [address] [id number] [place] [address] Nov, [facility] [place] [facility] [address] [id number] [place] [address] Oct, [facility] [place] [facility] [address] [id number] [place] [address] August, [facility] [place] [facility] [address] [id number] [place] [address] August, [facility] [place] [facility] [address] [id number] [place] [address] August, [facility] [place] [facility] [address] [id number] [place] [address] Jul, [facility] [place] [facility] [address] [id number] [place] [address] Jul, [facility] [address] [id number] [place] [address] 04 Jul, 2012 [facility] [address] [id number] [place] [address] 27 Jun, 2012 [facility] [address] [id number] [place] [address] 26 Jun, 2012 [facility] [address] [id number] [place] [address] Jun, [facility] [address] [id number] [place] [address] Jun, [facility] [address] [id number] [place] [address] Jun, [facility] [address] [id number] [place] [address] 15 Jun, 2012 [facility] [address] [id number] [place] [address] Jun, [facility] [address] [id number] [place] [address] May, [facility] [address] [id number] [place] [address] May, [facility] [address] [id number] [place] [address] May, [facility] [address] [id number] [place] [address] May, [facility] [address] [id number] [place] [address] Apr, [facility] [address] [id number] [place] [address] Apr, [facility] [address] [id number] [place] [address] Apr, [facility] [place] [facility] [address] [id number] [place] [address] Mar, [facility] [place] [facility] [address] [id number] [place] [address] Mar, [facility] [place] [facility] [address] [id number] [place] [address] Mar, [facility] [place] [facility] [address] [id number] [place] [address] Mar, [facility] [place] [facility] [address] [id number] [place] [address] Mar, [facility] [place] [facility] [address] [id number] [place] [address] Mar, [facility] [place] [facility] [address] [id number] [place] [address] Mar, [facility] [place] [facility] [address] [id number] [place] [address] Mar, [facility] [place] [facility] [address] [id number] [place] [address] Feb, [facility] [place] [facility] [address] [id number] [address] Feb, [facility] [place] [facility] [address] [id number], [place] [address] Feb, [facility] [place] [facility] [address] [id number], [place] [address] Jan, [facility] [place] [facility] [address] [id number] [place] [address] Jan, [facility] [place] [facility] [address] [id number], [place] [address] Jan, [facility] [place] [facility] [address] [id number], [place] [address] Jan, [facility] [place] [facility] [address] [id number] [place] [address] 18 Jan, 2012 [facility] [place] [facility] [address] [id number] [place] [address] 08 Jan, 2012 [facility] [place] [facility] [address] [id number] [place] [address] Jan, [facility] [place] [facility] [address] [id number] [place] [address] 27 Dec, 2011 [facility] [place] [facility] [address] [id number] [place] [address] 24 Dec, 2011 [facility] [place] [facility] [address] [id number] [place] [address] 10 Dec, 2011 [facility] [place] [facility] [address] [id number] [place] [address] Nov, [facility] [place] [facility] [address] [id number] [place] [address] Nov, [facility] [place] [facility] [address] [id number] [place] [address] Nov, [facility] [place] [facility] [address] [id number] [place] [address] Nov, [facility] [place] [facility] [address] [id number] [place] [address] Oct, [facility] [place] [facility] [address] [id number] [place] [address] Oct, [facility] [place] [facility] [address] [id number] [place] [address] Oct, [facility] [place] [facility] [address] [id number] [place] [address] Sep, [facility] [place] [facility] [address] [id number] [place] [address] Sep, [facility] [place] [facility] [address] [id number] [place] [address] Sep, [facility] [place] [facility] [address] [id number] [place] [address] Sep, [facility] [place] [facility] [address] [id number] [place] [address] Sep, [facility] [place] [facility] [address] [id number] [place] [address] Sep, [facility] [place] [facility] [address] [id number] [place] [address] August, [facility] [place] [facility] [address] [id number] [place] [address] Jul, [facility] [place] [facility] [address] [id number] [place] [address] Jul, [facility] [place] [facility] [address] [id number] [place] [address] Jul, [facility] [place] [facility] [address] [id number] [place] [address] Jul, [facility] [place] [facility] [address] [id number] [place] [address] Jul, [facility] [place] [facility] [address] [id number] [place] [address] 29 Jun, 2011 [facility] [place] [facility] [address] [id number] [place] [address] Jun, [facility] [place] [facility] [address] [id number] [place] [address] Jun, [facility] [place] [facility] [address] [id number] [place] [address] 15 Jun, 2011 [facility] [place] [facility] [address] [id number] [place] [address] Jun, [facility] [place] [facility] [address] [id number] [place] [address] May, [facility] [place] [facility] [address] [id number] [place] [address] May, [facility] [address] [id number] [place] [address] May, [facility] [place] [facility] [address] [id number] [place] [address] 06 May, 2011 [facility] [place] [facility] [address] [id number] [place] [address] May, [facility] [place] [facility] [address] [id number] [place] [address] May, [facility] [place] [facility] [address] [id number] [place] [address] May, [facility] [place] [facility] [address] [id number] [place] [address] Apr, [facility] [address] [id number] [place] [address] 29 Mar, 2011 [facility] [place] [facility] [address] [id number] [place] [address] Mar, [facility] [place] [facility] [address] [id number] [place] [address] Mar, [facility] [place] [facility] [address] [id number] [place] [address] Mar, [facility] [place] [facility] [address] [id number] [place] [address] 08 Mar, 2011 [facility] [place] [facility] [address] [id number] [place] [address] 23 Feb, 2011 [facility] [place] [facility] [address] [id number] [place] [address] 14 Feb, 2011 [facility] [place] [facility] [address] [id number] [place] [address] 14 Feb, 2011 [facility] [place] [facility] [address] [id number] [place] [address] 14 Feb, 2011 [facility] [place] [facility] [address] [id number] [place] [address] Feb, [facility] [place] [facility] [address] [id number] [place] [address] Feb, [facility] [place] [facility] [address] [id number] [place] [address] Feb, [facility] [place] [facility] [address] [id number] [place] [address] Jan, [facility] [place] [facility] [address] [id number] [place] [address] Dec, [facility] [place] [facility] [address] [id number] [place] [address] Oct, [facility] [place] [facility] [address] [id number] [place] [address] Jun, [facility] [place] [facility] [address] [id number] [place] [address] Mar, [facility] [place] [facility] [address] [id number] [place] [address] 23 Mar, 2010 [facility] [place] [facility] [address] [id number] [place] [address] 16 Mar, 2010 [facility] [place] [facility] [address] [id number] [place] [address] 16 Mar, 2010 [facility] [place] [facility] [address] [id number] [place] [address] 15 Mar, 2010 [facility] [place] [facility] [address] [id number] [place] [address] 10 Mar, 2010 [facility] [place] [facility] [address] [id number] [place] [address] 10 Mar, 2010 [facility] [place] [facility] [address] [id number] [place] [address] 05 Mar, 2010 [facility] [place] [facility] [address] [id number] [place] [address] Mar, [facility] [place] [facility] [address] [id number] [place] [address] Mar, [facility] [place] [facility] [address] [id number] [place] [address] Jan, [facility] [address] [id number] [place] [address] Jan, [facility] [place] [facility] [address] [id number] [place] [address] Jan, [facility] [address] [id number] [place] [address] Nov, [facility] [place] [facility] [address] [id number], [place] [address] Oct, [facility] [address] [id number] [place] [address] Mar, [facility] [place] [facility] [address] [id number], [place] [address] Mar, [facility] [address] [id number], [place] [address] Mar, [facility] [place] [facility] [address] [id number], [place] [address] Mar, [facility] [place] [facility] [address] [id number], [place] [address] 17 Dec, 2008 [facility] [place] [facility] [address] [id number], [place] [address] August, [facility] [place] [facility] [address] [id number], [place] [address] August, [facility] [place] [facility] [address] [facility] [id number], [place] [address] Jul, [facility] [place] [facility] [address] [id number], [place] [address] Jan, [facility] [place] [facility] [address] [facility] [id number] [place] [address] Jan, IMMUNIZATIONS No Known Immunizations SOCIAL HISTORY Never Assessed REASON FOR VISIT Sample PLAN OF CARE VITAL SIGNS MEDICATIONS Medication Instructions Dosage Frequency Start Date End Date Duration Status Eliquis 5 mg TAKE ONE TABLET BY MOUTH TWICE DAILY 07 days Active RESULTS No Results PROCEDURES No [...]
--- OUTSIDE RECORDS SUMMARY | 2018-09-22 03:04 | XMS REPORT ---
Author Author FLORENTINEZEKIEL PUCKETT Organization [facility] Address [address] [place] [address] Care Team Providers Care Structural Rigger Name Role Phone DANICA LERMAY Unavailable PROBLEMS Type Condition ICD9-CM Code [id number] Code Onset Dates Condition Status SNOMED Code Problem Chronic gastritis without bleeding, unspecified gastritis type K29.50 Active 7389161 Problem Vitamin D deficiency E55.9 Active 23293455 Problem Osteoporosis M81.0 Active 74297044 Problem Unspecified abdominal pain R10.9 Active 413087976 Problem Fibromyalgia M79.7 Active 85439883 Problem Chronic pain syndrome G89.4 Active 453958763 Problem Trigger point with back pain M54.9 Active 526072082 Problem Chronic tension-type headache, not intractable G44.229 Active 420852479 Problem RUQ abdominal pain R10.11 Active 312480598 Problem Pancytopenia D61.818 Active 955904941 Problem Right sided sciatica M54.31 Active 17050811 Problem Chronic prescription opiate use Z79.891 Active 095307843 Problem Drug induced constipation K59.03 Active 536048559410633 Problem Leukopenia, unspecified type D72.819 Active 57818711 Problem Atrial fibrillation, unspecified type I48.91 Active 80047693 Problem Allergic rhinitis, unspecified allergic rhinitis type J30.9 Active 37312657 Problem Chronic obstructive pulmonary disease, unspecified COPD type J44.9 Active 57857747 Problem Hypothyroidism, unspecified hypothyroidism type E03.9 Active 51263940 Problem Other constipation K59.09 Active 920002762 Problem Porokeratosis Q82.8 Active 413995345 Problem 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 Active 244637060 Problem Allergy to intravenous contrast Z91.041 Active 096694592 Problem Vaginal atrophy N95.2 Active 007962357 Problem Major depression, recurrent F33.9 Active 13047081 Problem History of hepatitis C Z86.19 Active 64515717459044 Problem Hot flashes N95.1 Active 963273087 Problem Plantar fasciitis M72.2 Active 459349465 Problem Polyneuropathy associated with underlying disease G63 Active 889090960 Problem Primary insomnia F51.01 Active 2420901 Problem Low back pain M54.5 Active 732835271 ALLERGIES Substance Reaction Event Type Date Status CT Dye Unknown Non Drug Allergy Jan, Active ENCOUNTERS Encounter Location Date Diagnosis [place] [address] [address] Jul, Trochanteric bursitis of left hip M70.62 and Trochanteric bursitis, right hip M70.61 [place] [address] [address] Jul, [place] [address] [address] Jul, Chronic pain syndrome G89.4 [place] [address] [address] Jul, Hypothyroidism, unspecified hypothyroidism type E03.9 [place] [address] [place] [id number] [place] [address] Jul, Hypothyroidism, unspecified hypothyroidism type E03.9 [place] [address] [place] [address] [place] [address] Jul, Chronic tension-type headache, not intractable G44.229 ; Atrial fibrillation, unspecified type I48.91 ; Chronic pain syndrome G89.4 ; Hypothyroidism, unspecified hypothyroidism type E03.9 ; Pancytopenia D61.818 ; History of hepatitis C Z86.19 ; Vaginal atrophy N95.2 ; RUQ abdominal pain R10.11 ; Chronic prescription opiate use Z79.891 ; Osteoporosis M81.0 and Screening for breast cancer Z12.31 [place] [address] [place] [address] [place] [address] Jun, [place] [address] [address] May, [facility] [address] [address] May, [facility] [address] [place] [id number] [place] [address] May, [facility] [address] [place] [id number] [place] [address] Apr, [facility] [address] [place] [address] [place] [address] Apr, Hypothyroidism, unspecified hypothyroidism type E03.9 [place] [address] [place] [address] [place] [address] Apr, Hypothyroidism, unspecified hypothyroidism type E03.9 and Leukopenia, unspecified type D72.819 [place] [address] [place] [address] [place] [address] Mar, [place] [address] [place] [address] [place] [address] Mar, Leukopenia, unspecified type D72.819 [place] [address] [place] [address] [place] [address] Mar, Hypothyroidism, unspecified hypothyroidism type E03.9 and Low hemoglobin D64.9 [place] [address] [place] [address] Mar, Hypothyroidism, unspecified hypothyroidism type E03.9 [place] [address] [place] [address] Mar, Osteoporosis M81.0 ; Low hemoglobin D64.9 and Hypothyroidism, unspecified hypothyroidism type E03.9 [place] [address] [place] [address] [place] [address] Mar, Hypothyroidism, unspecified hypothyroidism type E03.9 ; Bilirubin in urine R82.2 and Pancytopenia D61.818 [place] [address] [place] [address] [place] [address] Feb, [facility] [address] [place] [address] [place] [address] Feb, Cough R05 and Bronchitis J40 [facility] [address] [place] [address] [place] [address] 14 Feb, 2017 Other viral agents as the cause of diseases classified elsewhere B97.89 and Acute upper respiratory infection, unspecified J06.9 [place] [address] [address] Feb, Fibromyalgia M79.7 ; Chronic pain syndrome G89.4 ; Hypothyroidism, unspecified hypothyroidism type E03.9 ; Primary insomnia F51.01 ; Osteoporosis M81.0 ; Vision abnormalities H53.9 ; Pancytopenia D61.818 ; BMI 28.0-28.9,adult Z68.28 and Encounter for immunization Z23 [address] [address] Feb, Neuroma D36.10 and Capsulitis of right foot M77.51 [place] [address] [place] [address] [place] [address] Feb, [address] [address] Feb, Hypothyroidism, unspecified hypothyroidism type E03.9 [place] [address] [place] [address] [place] [address] Jan, [place] [address] [address] Jan, Atrial fibrillation, unspecified type I48.91 [place] [address] [address] Jan, [place] [address] [address] Jan, Fibromyalgia M79.7 ; Atrial fibrillation, unspecified type I48.91 ; Pain of left hand M79.642 ; Pain in right hand M79.641 ; Chronic prescription opiate use Z79.891 ; Chronic pain syndrome G89.4 ; Elevated fasting glucose R73.01 and Hypothyroidism, unspecified hypothyroidism type E03.9 [place] [address] [place] [address] [place] [address] Jan, [facility] [address] [place] [address] [place] [address] Dec, Trochanteric bursitis of both hips M70.61 [facility] [address] [address] Dec, [place] [address] [address] Dec, [place] [address] [place] [address] [place] [address] Nov, [place] [address] [address] Nov, Unilateral headache R51 [facility] [address] [place] [address] [place] [address] Nov, [facility] [address] [address] Oct, Unilateral headache R51 ; 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 and Allergy to intravenous contrast Z91.041 [place] [address] [place] [address] [place] [address] Oct, [facility] [address] [place] [address] [place] [address] Oct, [facility] [address] [place] [address] [place] [address] Sep, Hypothyroidism, unspecified hypothyroidism type E03.9 [place] [address] [place] [address] [place] [address] Sep, Hypothyroidism, unspecified hypothyroidism type E03.9 and Bilirubin in urine R82.2 [place] [address] [place] [address] [place] [address] Sep, Trochanteric bursitis of both hips M70.61 [facility] [address] [address] Sep, Hypothyroidism, unspecified hypothyroidism type E03.9 ; Dysuria R30.0 ; Chronic tension-type headache, not intractable G44.229 and Drug induced constipation K59.03 [facility] [address] [address] Sep, [place] [address] [address] Sep, [facility] [address] [address] August, [facility] [address] [address] Jul, [facility] [address] [address] Jul, Trochanteric bursitis of right hip M70.61 [place] [address] [address] Jul, Hypothyroidism, unspecified hypothyroidism type E03.9 [facility] [address] [place] [address] [place] [address] Jul, Fibromyalgia M79.7 ; Chronic pain syndrome G89.4 ; Hypothyroidism, unspecified hypothyroidism type E03.9 and Other constipation K59.09 [facility] [address] [place] [address] [place] [address] Jun, Swollen tonsil J35.1 and Strep throat J02.0 [facility] [address] [place] [address] [place] [address] Jun, [facility] [address] [place] [address] [place] [address] 02 Mar, 2017 Acute maxillary sinusitis J01.00 [facility] [address] [place] [address] Jun, Hypothyroidism, unspecified hypothyroidism type E03.9 [facility] [address] [place] [address] [place] [address] Jun, Chronic pain syndrome G89.4 ; Fibromyalgia M79.7 ; Hypothyroidism, unspecified hypothyroidism type E03.9 and Chronic prescription opiate use Z79.891 [facility] [address] [place] [address] [place] [address] May, [place] [address] [place] [address] [place] [address] Apr, Hypothyroidism, unspecified hypothyroidism type E03.9 [place] [address] [place] [address] [place] [address] Apr, [place] [address] [place] [address] [place] [address] Apr, Lipid screening Z13.220 and Hypothyroidism, unspecified hypothyroidism type E03.9 [place] [address] [place] [address] [place] [address] Apr, [place] [address] [place] [address] [place] [address] Mar, Trochanteric bursitis of both hips M70.61 [place] [address] [place] [address] [place] [address] Mar, [place] [address] [place] [address] [place] [address] Mar, Plantar fasciitis M72.2 and Porokeratosis Q82.8 [place] [address] [place] [address] [place] [address] Feb, Lipid screening Z13.220 ; Vitamin D deficiency E55.9 and Hypothyroidism, unspecified hypothyroidism type E03.9 [place] [address] [place] [address] [place] [address] Feb, Chronic pain syndrome G89.4 ; Hypothyroidism, unspecified hypothyroidism type E03.9 ; Pancytopenia D61.818 ; Vaginal atrophy N95.2 ; Chronic gastritis without bleeding, unspecified gastritis type K29.50 ; Vitamin D deficiency E55.9 ; Chronic prescription opiate use Z79.891 ; Adverse effect of other opioids, initial encounter T40.2X5A ; Drug induced constipation K59.03 ; Lipid screening Z13.220 and Encounter for immunization Z23 [facility] [address] [address] Feb, [place] [address] [address] Feb, Ingrown toenail L60.0 [place] [address] [address] Jan, [place] [address] [address] Jan, Trochanteric bursitis of both hips M70.61 [place] [address] [address] Jan, [place] [address] [address] Jan, [place] [address] [place] [address] [place] [address] Jan, [place] [address] [address] Jan, Right sided sciatica M54.31 [place] [address] [address] Dec, Onychomycosis B35.1 [facility] [address] [place] [address] [place] [address] Dec, [facility] [address] [address] Dec, [facility] [address], [place] [address] Dec, [facility] [address] [place] [address] [place] [address] Dec, Osteoarthritis of right hip, unspecified osteoarthritis type M16.11 and Bursitis of right hip M70.71 [facility] [address] [place] [address] [place] [address] Nov, [facility] [address] [place] [address] [place] [address] Nov, [place] [address] [place] [address] [place] [address] Nov, [place] [address] [place] [address] [place] [address] Nov, Hypothyroidism, unspecified hypothyroidism type E03.9 ; Vitamin D deficiency E55.9 and History of hepatitis C Z86.19 [place] [address] [place] [address] [place] [address] Nov, Right upper quadrant pain R10.11 ; History of hepatitis C Z86.19 and Low back pain M54.5 [place] [address], [place] [address] Oct, Trochanteric bursitis, right hip M70.61 [place] [address] [place] [address] Oct, [facility] [address] [place] [address] Oct, [facility] [address] [place] [address] [place] [address] Oct, Trochanteric bursitis of both hips M70.61 and Right sided sciatica M54.31 [place] [address] [place] [address] 20 Harpal, 2016 Trochanteric bursitis of both hips M70.61 [place] [address] [place] [address] [place] [address] 14 Oct, 2015 RUQ abdominal pain R10.11 [place] [address] [place] [address] [place] [address] 13 Oct, 2015 Sciatic leg pain M54.30 [place] [address] [address] 11 Oct, 2015 RUQ abdominal pain R10.11 [place] [address] [place] [address] [place] [address] 07 Oct, 2015 RUQ abdominal pain R10.11 ; History of hepatitis C Z86.19 and Trigger point with back pain M54.9 [place] [address] [place] [address] [place] [address] Sep, [place] [address] [address] Sep, Right sided sciatica M54.31 [place] [address] [place] [address] [place] [address] Sep, Hypothyroidism, unspecified hypothyroidism type E03.9 and Vitamin D deficiency E55.9 [place] [address] [place] [address] [place] [address] Sep, Plantar fasciitis M72.2 and Porokeratosis Q82.8 [place] [address] [place] [address] [place] [address] Sep, Hypothyroidism, unspecified hypothyroidism type E03.9 ; Chronic pain syndrome G89.4 ; Polyneuropathy associated with underlying disease G63 and Vitamin D deficiency E55.9 [place] [address] [place] [address] [place] [address] August, [place] [address] [place] [address] [place] [address] Jul, Plantar fasciitis M72.2 [place] [address] [place] [address] [place] [address] 28 Jul, 2015 Trochanteric bursitis, right hip M70.61 [place] [address] [place] [address] [place] [address] 07 Jul, 2015 Hypothyroidism, unspecified hypothyroidism type E03.9 [place] [address] [place] [address] [place] [address] 06 Jul, 2015 Hypothyroidism, unspecified hypothyroidism type E03.9 ; Chronic pain syndrome G89.4 and Polyneuropathy associated with underlying disease G63 [place] [address] [place] [address] [place] [address] 10 Jun, 2015 Trochanteric bursitis of both hips M70.61 [place] [address] [place] [address] [place] [address] 08 Jun, 2015 Vitamin D deficiency E55.9 ; Osteoporosis M81.0 ; Low back pain M54.5 and Plantar fasciitis M72.2 [place] [address] [place] [address] [place] [address] 26 May, 2015 Vitamin D deficiency E55.9 and Hypothyroidism, unspecified hypothyroidism type E03.9 [place] [address] [place] [address] [place] [address] 23 May, 2015 Acute maxillary sinusitis J01.00 [place] [address] [place] [address] [place] [address] 18 May, 2015 Osteoporosis M81.0 and Hypothyroidism, unspecified hypothyroidism type E03.9 [place] [address] [place] [address] [place] [address] 16 May, 2015 Osteoporosis M81.0 [place] [address] [place] [address] [place] [address] 15 May, 2015 [facility] [address] [place] [address] Apr, [place] [address] [place] [address] [place] [address] Apr, Trochanteric bursitis of both hips M70.61 [place] [address] [place] [address] [place] [address] Apr, Hypothyroidism, unspecified hypothyroidism type E03.9 [place] [address] [place] [address] [place] [address] Apr, Chronic pain syndrome G89.4 ; Bilateral low back pain with sciatica, sciatica laterality unspecified M54.40 ; Pain in right hip M25.551 ; Pain in left hip M25.552 ; Chronic prescription opiate use Z79.899 ; Primary insomnia F51.01 and Hypothyroidism, unspecified hypothyroidism type E03.9 [place] [address] [place] [address] [place] [address] Mar, [place] [address] [address] Feb, [place] [address] [place] [address] [place] [address] Feb, Chronic pain syndrome G89.4 and Major depression F32.9 [place] [address] [place] [address] [place] [address] Feb, Fatigue R53.83 [place] [address] [place] [address] [place] [address] 13 Feb, 2015 History of fracture Z87.81 [place] [address] [place] [address] [place] [address] Feb, Major depression, recurrent F33.9 and Generalized anxiety disorder F41.1 [place] [address] [place] [address] [place] [address] Feb, [place] [address] [place] [address] [place] [address] Jan, Hypothyroidism, unspecified hypothyroidism type E03.9 [place] [address] [place] [address] [address] Jan, Abdominal pain R10.9 and Hypothyroidism, unspecified hypothyroidism type E03.9 [place] [address] [place] [address] Jan, Abdominal pain R10.9 [place] [address] [place] [address] Jan, Hypothyroidism, unspecified hypothyroidism type E03.9 [place] [address] [place] [address] [place] [address] Jan, [address] [address] Jan, 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 and Hypothyroidism, unspecified hypothyroidism type E03.9 [place] [id number] [place] [address] Jan, 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 ; Abdominal pain R10.9 ; Dyspareunia N94.1 ; Encounter for immunization Z23 ; History of fracture Z87.81 ; Fatigue R53.83 ; Throat fullness R68.89 ; Bruises easily R23.8 ; Hot flashes N95.1 ; Depression F32.9 and Vaginal atrophy N95.2 [place] [address] [place] [address] Jan, Hypothyroidism, unspecified hypothyroidism type E03.9 [place] [address] [place] [address] Jan, Unspecified abdominal pain R10.9 ; Chronic obstructive pulmonary disease, unspecified COPD type J44.9 ; Allergic rhinitis, unspecified allergic rhinitis type J30.9 ; Chronic pain syndrome G89.4 ; Hypothyroidism, unspecified hypothyroidism type E03.9 ; Chest pain, unspecified chest pain type R07.9 and Plantar fasciitis M72.2 [place] [address] [address] Jan, Trochanteric bursitis of both hips M70.61 [facility] [address] [place] [address] [place] [address] Dec, [facility] [address] [place] [address] [place] [address] Nov, [facility] [address] [place] [address] [place] [address] Nov, [facility] [address] [place] [address] [place] [address] Nov, Constipation 564.00 [facility] [address] [place] [address] [place] [address] Oct, Chronic pain 338.29 and Hypothyroidism 244.9 [facility] [address] [place] [address] [place] [address] Oct, [facility] [address] [place] [address] [place] [address] Sep, [facility] [address] [place] [address] [place] [address] Sep, [facility] [address] [place] [address] Sep, [facility] [address] [place] [address] [place] [address] Sep, [facility] [address] [place] [address] Sep, [facility] [address] [place] [address] [place] [address] 05 Sep, 2014 [facility] [address] [place] [address] [place] [id number] 04 Sep, 2014 COPD exacerbation 491.21 ; Chronic pain 338.29 ; Hypothyroidism 244.9 and Pancytopenia 284.19 [facility] [id number] [address] August, [facility] [place] [facility] [address] [id number] [place] [address] Jul, [facility] [place] [facility] [address] [id number] [place] [address] Jul, [facility] [place] [facility] [address] [id number] [place] [address] Jun, [facility] [place] [facility] [address] [id number] [place] [address] Jun, [facility] [place] [facility] [address] [id number] [place] [address] Jun, [facility] [place] [facility] [address] [facility] [id number] [place] [address] Jun, [facility] [place] [facility] [address] [facility] [id number] [place] [address] Jun, [facility] [place] [facility] [address] [facility] [id number] [place] [address] May, [facility] [place] [facility] [address] [id number] [place] [address] May, [facility] [place] [facility] [address] [facility] [id number], [place] [address] May, [facility] [place] [facility] [address] [facility] [id number] [place] [address] May, [facility] [place] [facility] [address] [facility] [id number], [place] [address] May, [facility] [place] [facility] [address] [id number] [place] [address] May, [facility] [place] [facility] [address] [facility] [id number], [place] [address] May, [facility] [place] [facility] [address] [facility] [id number], [place] [address] May, 2014 [facility] [place] [facility] [address] [facility] [id number] [place] [address] May, [facility] [place] [facility] [address] [id number] [place] [address] May, [facility] [place] [facility] [address] [facility] [id number] [place] [address] May, [facility] [place] [facility] [address] [id number] [place] [address] May, [facility] [place] [facility] [address] [id number] [place] [address] May, [facility] [place] [facility] [address] [facility] [id number] [place] [address] Apr, [facility] [place] [facility] [id number] [place] [address] Apr, [facility] [place] [facility] [address] [facility] [id number] [place] [address] Apr, [facility] [place] [facility] [address] [id number] [place] [address] Apr, [facility] [place] [facility] [address] [facility] [id number] [place] [address] Apr, [facility] [place] [facility] [address] [facility] [id number], [place] [address] Apr, [facility] [place] [facility] [address] [facility] [id number], [place] [address] Apr, [facility] [place] [facility] [address] [facility] [id number] [place] [address] Mar, [facility] [place] [facility] [address] [facility] [id number] [place] [address] Mar, [facility] [place] [facility] [address] [facility] [id number] [place] [address] Mar, [facility] [place] [facility] [address] [id number] [place] [address] Mar, [facility] [place] [facility] [address] [id number] [place] [address] Mar, [facility] [place] [facility] [address] [id number] [place] [address] Mar, [facility] [place] [facility] [address] [id number] [place] [address] Feb, [facility] [place] [facility] [address] [id number] [place] [address] Feb, [facility] [place] [facility] [address] [id number] [place] [address] Feb, [facility] [place] [facility] [address] [id number] [place] [address] Feb, [facility] [place] [facility] [address] [id number] [place] [address] Feb, [facility] [place] [facility] [address] [id number] [place] [address] Feb, [facility] [place] [facility] [address] [id number] [place] [address] Jan, [facility] [place] [facility] [address] [id number] [place] [address] Jan, [facility] [place] [facility] [address] [id number] [place] [address] Jan, [facility] [place] [facility] [address] [id number] [place] [address] Jan, [facility] [place] [facility] [address] [id number] [place] [address] Jan, [facility] [place] [facility] [address] [id number] [place] [address] Jan, [facility] [place] [facility] [address] [id number] [place] [address] Jan, [facility] [place] [facility] [address] [id number] [place] [address] Jan, [facility] [place] [facility] [address] [id number] [place] [address] Dec, [facility] [place] [facility] [address] [id number] [place] [address] Dec, [facility] [place] [facility] [address] [id number] [place] [address] Dec, [facility] [place] [facility] [address] [id number] [place] [address] Dec, [facility] [place] [facility] [address] [id number] [place] [address] Dec, [facility] [place] [facility] [address] [id number] [place] [address] Dec, [facility] [place] [facility] [address] [id number] [place] [address] Dec, [facility] [place] [facility] [address] [id number] [place] [address] Nov, [facility] [place] [facility] [address] [id number] [place] [address] Nov, [facility] [place] [facility] [address] [id number] [place] [address] Oct, [facility] [place] [facility] [address] [id number], [place] [address] Oct, [facility] [place] [facility] [address] [id number] [place] [address] Oct, [facility] [place] [facility] [address] [id number] [place] [address] Oct, [facility] [place] [facility] [address] [id number] [place] [address] Sep, [facility] [place] [facility] [address] [id number] [place] [address] Sep, [facility] [place] [facility] [address] [id number] [place] [address] Sep, [facility] [place] [facility] [address] [id number] [place] [address] Sep, [facility] [place] [facility] [address] [id number] [place] [address] Sep, [facility] [place] [facility] [address] [id number] [place] [address] Sep, [facility] [place] [facility] [address] [id number] [place] [address] Sep, [facility] [place] [facility] [address] [id number] [place] [address] Sep, [facility] [place] [facility] [address] [id number] [place] [address] August, [facility] [place] [facility] [address] [id number] [place] [address] August, [facility] [place] [facility] [address] [id number] [place] [address] August, [facility] [place] [facility] [address] [id number] [place] [address] August, [facility] [place] [facility] [address] [id number] [place] [address] Jul, [facility] [place] [facility] [address] [id number] [place] [address] Jul, [facility] [place] [facility] [address] [id number] [place] [address] Jul, [facility] [place] [facility] [address] [id number] [place] [address] Jul, [facility] [place] [facility] [address] [id number] [place] [address] Jul, [facility] [place] [facility] [address] [id number] [place] [address] 16 Jul, 2013 [facility] [place] [facility] [address] [id number] [place] [address] 15 Jul, 2013 [facility] [place] [facility] [address] [id number] [place] [address] 15 Jul, 2013 [facility] [place] [facility] [address] [id number] [place] [address] 18 Jun, 2013 [facility] [place] [facility] [address] [id number] [place] [address] 18 Jun, 2013 [facility] [place] [facility] [address] [id number] [place] [address] Jun, [facility] [place] [facility] [address] [id number] [place] [address] Jun, [facility] [place] [facility] [address] [id number] [place] [address] Jun, [facility] [place] [facility] [address] [id number] [place] [address] Jun, [facility] [place] [facility] [address] [id number] [place] [address] Jun, [facility] [place] [facility] [address] [id number] [place] [address] Jun, [facility] [place] [facility] [address] [id number] [place] [address] May, [facility] [place] [facility] [address] [id number] [place] [address] May, [facility] [place] [facility] [address] [id number] [place] [address] Apr, [facility] [place] [facility] [address] [id number] [place] [address] Apr, [facility] [place] [facility] [address] [id number] [place] [address] Mar, [facility] [address] [id number] [place] [address] 24 Mar, 2013 [facility] [place] [facility] [address] [id number] [place] [address] Mar, [facility] [place] [facility] [address] [id number] [place] [address] Mar, [facility] [place] [facility] [address] [id number] [place] [address] Mar, [facility] [place] [facility] [address] [id number] [place] [address] Mar, [facility] [place] [facility] [address] [id number] [place] [address] Mar, [facility] [place] [facility] [address] [id number] [place] [address] Feb, [facility] [place] [facility] [address] [id number] [place] [address] Feb, [facility] [place] [facility] [address] [id number] [place] [address] Feb, [facility] [place] [facility] [address] [id number] [place] [address] Feb, [facility] [place] [facility] [address] [id number], [place] [address] 05 Feb, 2013 [facility] [place] [facility] [address] [id number], [place] [address] 04 Feb, 2013 [facility] [place] [facility] [address] [id number] [place] [address] 26 Dec, 2012 [facility] [place] [facility] [address] [id number] [place] [address] 18 Dec, 2012 [facility] [place] [facility] [address] [id number] [place] [address] 13 Dec, 2012 [facility] [place] [facility] [address] [id number] [place] [address] 13 Dec, 2012 [facility] [address] [id number] [place] [address] Dec, [facility] [address] [id number] [place] [address] Nov, [facility] [address] [id number] [place] [address] Nov, [facility] [address] [id number] [place] [address] Oct, [facility] [address] [id number] [place] [address] August, [facility] [address] [id number] [place] [address] August, [facility] [address] [id number] [place] [address] August, [facility] [address] [id number] [place] [address] Jul, [facility] [address] [id number] [place] [address] Jul, [facility] [address] [id number] [place] [address] Jul, [facility] [address] [id number] [place] [address] Jun, [facility] [address] [id number] [place] [address] Jun, [facility] [address] [id number] [place] [address] Jun, [facility] [address] [id number] [place] [address] Jun, [facility] [address] [id number] [place] [address] Jun, [facility] [address] [id number] [place] [address] 15 Jun, 2012 [facility] [place] [facility] [address] [id number] [place] [address] Jun, [facility] [address] [id number] [place] [address] 18 May, 2012 [facility] [place] [facility] [address] [id number] [place] [address] May, [facility] [address] [id number] [place] [address] May, [facility] [place] [facility] [address] [id number] [place] [address] 05 May, 2012 [facility] [address] [id number] [place] [address] Apr, [facility] [place] [facility] [address] [id number] [place] [address] Apr, [facility] [address] [id number] [place] [address] Apr, [facility] [place] [facility] [address] [id number] [place] [address] Mar, [facility] [address] [id number] [place] [address] Mar, [facility] [place] [facility] [address] [id number] [place] [address] Mar, [facility] [place] [facility] [address] [id number] [place] [address] Mar, [facility] [place] [facility] [address] [id number] [place] [address] Mar, [facility] [place] [facility] [address] [id number] [place] [address] Mar, [facility] [place] [facility] [address] [id number] [place] [address] Mar, [facility] [place] [facility] [address] [id number] [place] [address] Mar, [facility] [place] [facility] [address] [id number] [place] [address] Feb, [facility] [place] [facility] [address] [id number] [place] [address] Feb, [facility] [place] [facility] [address] [id number] [place] [address] Feb, [facility] [place] [facility] [address] [id number] [place] [address] Jan, [facility] [place] [facility] [address] [id number] [place] [address] Jan, [facility] [place] [facility] [address] [id number] [place] [address] Jan, [facility] [place] [facility] [address] [id number] [place] [address] Jan, [facility] [place] [facility] [address] [id number] [place] [address] Jan, [facility] [place] [facility] [address] [facility] [id number] [place] [address] Jan, [facility] [place] [facility] [address] [id number] [place] [address] Jan, [facility] [place] [facility] [address] [id number] [place] [address] Dec, [facility] [place] [facility] [address] [id number] [place] [address] 24 Dec, 2011 [facility] [place] [facility] [address] [id number] [place] [address] Dec, [facility] [place] [facility] [address] [id number] [place] [address] Nov, [facility] [place] [facility] [address] [id number] [place] [address] Nov, [facility] [place] [facility] [address] [id number] [place] [address] Nov, [facility] [place] [facility] [address] [id number] [place] [address] Nov, [facility] [place] [facility] [address] [id number] [place] [address] Oct, [facility] [place] [facility] [address] [id number] [place] [address] Oct, [facility] [place] [facility] [address] [id number] [place] [address] Oct, [facility] [place] [facility] [address] [id number] [place] [address] Sep, [facility] [place] [facility] [address] [id number] [place] [address] Sep, [facility] [place] [facility] [address] [id number] [place] [address] Sep, [facility] [place] [facility] [address] [id number] [place] [address] Sep, [facility] [place] [facility] [address] [id number] [place] [address] Sep, [facility] [place] [facility] [address] [id number] [place] [address] Sep, [facility] [place] [facility] [address] [id number] [place] [address] August, [facility] [place] [facility] [address] [id number] [place] [address] Jul, [facility] [place] [facility] [address] [id number] [place] [address] Jul, [facility] [place] [facility] [address] [id number], [place] [address] Jul, [facility] [address] [id number] [place] [address] Jul, [facility] [place] [facility] [address] [id number] [place] [address] Jul, [facility] [place] [facility] [address] [facility] [id number] [place] [address] 29 Jun, 2011 [facility] [place] [facility] [address] [id number] [place] [address] Jun, [facility] [place] [facility] [address] [id number] [place] [address] Jun, [facility] [place] [facility] [address] [facility] [id number] [place] [address] Jun, [facility] [id number] [place] [address] Jun, [facility] [place] [facility] [address] [facility] [id number] [place] [address] May, [facility] [place] [facility] [address] [facility] [id number] [place] [address] May, [facility] [place] [facility] [address] [facility] [id number] [place] [address] May, [facility] [place] [facility] [address] [facility] [id number] [place] [address] May, [facility] [place] [facility] [address] [facility] [id number], [place] [address] May, [facility] [place] [facility] [address] [facility] [id number] [place] [address] May, [facility] [place] [facility] [address] [facility] [id number], [place] [address] May, [facility] [place] [facility] [address] [facility] [id number], [place] [address] Apr, [facility] [place] [facility] [address] [id number] [place] [address] 29 Mar, 2011 [facility] [place] [facility] [address] [id number] [place] [address] Mar, [facility] [place] [facility] [address] [id number] [place] [address] Mar, [facility] [place] [facility] [address] [id number] [place] [address] Mar, [facility] [place] [facility] [address] [id number] [place] [address] Mar, [facility] [place] [facility] [address] [id number] [place] [address] Feb, [facility] [place] [facility] [address] [id number] [place] [address] Feb, [facility] [place] [facility] [address] [id number] [place] [address] Feb, [facility] [place] [facility] [address] [id number] [place] [address] Feb, [facility] [place] [facility] [address] [id number] [place] [address] Feb, [facility] [place] [facility] [address] [id number] [place] [address] Feb, [facility] [place] [facility] [address] [id number] [place] [address] Feb, [facility] [place] [facility] [address] [id number] [place] [address] Jan, [facility] [place] [facility] [address] [id number] [place] [address] 12 Dec, 2010 [facility] [place] [facility] [address] [id number] [place] [address] Oct, [facility] [place] [facility] [address] [id number] [place] [address] 10 Jun, 2010 [facility] [place] [facility] [address] [id number] [place] [address] Mar, [facility] [place] [facility] [address] [id number] [place] [address] 23 Mar, 2010 [facility] [place] [facility] [address] [id number] [place] [address] 16 Mar, 2010 [facility] [place] [facility] [address] [id number] [place] [address] 16 Mar, 2010 [facility] [place] [facility] [address] [id number] [place] [address] 15 Mar, 2010 [facility] [place] [facility] [address] [id number] [place] [address] 10 Mar, 2010 [facility] [place] [facility] [address] [id number] [place] [address] 10 Mar, 2010 [facility] [place] [facility] [address] [id number] [place] [address] 05 Mar, 2010 [facility] [place] [facility] [address] [id number] [place] [address] Mar, [facility] [place] [facility] [address] [id number] [place] [address] Mar, [facility] [place] [facility] [address] [id number], [place] [address] Jan, [facility] [place] [facility] [address] [id number], [place] [address] Jan, [facility] [place] [facility] [address] [id number] [place] [address] Jan, [facility] [place] [facility] [address] [id number] [place] [address] Nov, [facility] [place] [facility] [address] [id number] [place] [address] Oct, [facility] [place] [facility] [address] [id number], [place] [address] Mar, [facility] [id number] [address] Mar, [facility] [id number] [place] [address] Mar, [facility] [id number] [place] [address] Mar, [facility] [id number] [place] [address] Dec, [facility] [id number] [place] [address] August, [facility] [id number] [place] [address] August, [facility] [id number] [place] [address] Jul, [facility] [id number] [place] [address] Jan, [facility] [id number] [place] [address] Jan, IMMUNIZATIONS No Known Immunizations SOCIAL HISTORY Never Assessed REASON FOR VISIT Pain management (chronic) -- zafar gatica PLAN OF CARE Activity Details Follow Up 4 Weeks Reason:Pain VITAL SIGNS Height 67 in 2017-01-19 Weight 177.0 lbs 2017-01-19 Temperature 97.6 degrees Fahrenheit 2017-01-19 Heart Rate 68 bpm 2017-01-19 Respiratory Rate 18 2017-01-19 BMI 27.72 kg/m2 2017-01-19 Blood pressure systolic 120 mmHg 2017-01-19 Blood pressure diastolic 76 mmHg 2017-01-19 MEDICATIONS Medication Instructions Dosage Frequency Start Date End Date Duration Status Premarin 0.625 MG/GM Vaginal Daily x 2 weeks then decrease to 2 days per week 0.5 gram Feb, Active Polyethylene Glycol 3350 0 Orally Once a day 1 capful with 8 oz liquid 24h Feb, Active Eliquis 5 mg Orally 2 times a day one tab 12h Jan, Active Hydrocodone-Acetaminophen 10-325 MG Orally 2 times a day 1 tablet as needed 12h Dec, 28 days Active Metoprolol Succinate ER 25 MG Orally Once a day 1 tablet 24h Jan, Active Levothyroxine Sodium 300 MCG Orally Once a day 1 tablet 24h Sep, Active Flonase 50 MCG/ACT Nasally Once a day 1 spray in each nostril 24h Sep, Active Lyrica 75 MG Orally Twice a day 1 capsule 12h Jan, 30 days Active PredniSONE 50 mg Orally Once a day 1 tablet 24h Oct, 1 dose Active RESULTS Name Result Date Reference Range A1C (IN HOUSE) 2017-01-19 A1C IN HOUSE 5.0 4.3 - 5.6 % Previous A1c n/a Lot [id number] Exp date 08/2018 Xray : Hand, Left 2 views (IN HOUSE) 2017-01-19 Xray : Hand, Right 2 views (IN HOUSE) 2017-01-19 AMERITOX 2017-01-19 PROCEDURES Procedure Date Ordered Result Body Site X-RAY EXAM OF HAND Jan 19, 2017 No Charge Jan 19, 2017 GLYCATED HEMOGLOBIN TEST Jan 19, 2017 INSTRUCTIONS MEDICATIONS ADMINISTERED No Known Medications [...] surgeries Hospitalization History multiple hospital stays for [facility] [place]
[2018-09-22 03:05] LABS: BASOPHILS % (AUTO) 1 % (0-10); EOSINOPHILS # (AUTO) 0.1 10^3/uL (0.0-0.3); EOSINOPHILS % (AUTO) 2 % (0-10); HEMATOCRIT 40 % (35-52); HEMOGLOBIN 13.1 G/DL (11.5-16.0); LYMPHOCYTES # (AUTO) 2.4 X 10^3 (1.0-4.0); LYMPHOCYTES % (AUTO) 34 % (12-44); MEAN CORPUSCULAR HEMOGLOBIN 30 PG (25-34); MEAN CORPUSCULAR HGB CONC 33 G/DL (32-36); MEAN CORPUSCULAR VOLUME 92 FL (80-99); MEAN PLATELET VOLUME 9.7 FL (7.4-10.4); MONOCYTES # (AUTO) 0.7 X 10^3 (0.0-1.0); MONOCYTES % (AUTO) 10 % (0-12); NEUTROPHILS # (AUTO) 3.8 X 10^3 (1.8-7.8); NEUTROPHILS % (AUTO) 53 % (42-75); PLATELET COUNT 240 10^3/uL (130-400); RED CELL DISTRIBUTION WIDTH 12.9 % (10.0-14.5); WHITE BLOOD COUNT 7.1 10^3/uL (4.3-11.0)
--- OUTSIDE RECORDS SUMMARY | 2018-09-22 03:05 | XMS REPORT ---
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 Name Role Phone HOA JORDAN Unavailable PROBLEMS Type Condition ICD9-CM Code QHX72-SD Code Onset Dates Condition Status SNOMED Code Problem Chronic gastritis without bleeding, unspecified gastritis type K29.50 Active 5430964 Problem Vitamin D deficiency E55.9 Active 02819601 Problem Osteoporosis M81.0 Active 70569031 Problem Unspecified abdominal pain R10.9 Active 590204745 Problem Fibromyalgia M79.7 Active 26114594 Problem Chronic pain syndrome G89.4 Active 673071255 Problem Trigger point with back pain M54.9 Active 336029810 Problem Chronic tension-type headache, not intractable G44.229 Active 007948654 Problem RUQ abdominal pain R10.11 Active 854533114 Problem Pancytopenia D61.818 Active 669262114 Problem Right sided sciatica M54.31 Active 24244377 Problem Chronic prescription opiate use Z79.891 Active 385112482 Problem Drug induced constipation K59.03 Active 107208118822941 Problem Leukopenia, unspecified type D72.819 Active 64812973 Problem Atrial fibrillation, unspecified type I48.91 Active 24840007 Problem Allergic rhinitis, unspecified allergic rhinitis type J30.9 Active 96082759 Problem Chronic obstructive pulmonary disease, unspecified COPD type J44.9 Active 75654681 Problem Hypothyroidism, unspecified hypothyroidism type E03.9 Active 19954782 Problem Other constipation K59.09 Active 779128743 Problem Porokeratosis Q82.8 Active 211054147 Problem 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 Active 754656364 Problem Allergy to intravenous contrast Z91.041 Active 720585228 Problem Vaginal atrophy N95.2 Active 786131283 Problem Major depression, recurrent F33.9 Active 89480335 Problem History of hepatitis C Z86.19 Active 23469320779472 Problem Hot flashes N95.1 Active 983590408 Problem Plantar fasciitis M72.2 Active 779324145 Problem Polyneuropathy associated with underlying disease G63 Active 327423757 Problem Primary insomnia F51.01 Active 2198956 Problem Low back pain M54.5 Active 554834131 ALLERGIES No Information ENCOUNTERS Encounter Location Date Diagnosis [place] [id number] [place] [address] Jul, Trochanteric bursitis of left hip M70.62 and Trochanteric bursitis, right hip M70.61 [place] [id number] [place] [address] Jul, [place] [address] [address] Jul, Chronic pain syndrome G89.4 [place] [address] [address] Jul, Hypothyroidism, unspecified hypothyroidism type E03.9 [place] [id number] [place] [address] Jul, Hypothyroidism, unspecified hypothyroidism type E03.9 [place] [id number] [place] [address] Jul, Chronic tension-type headache, not intractable G44.229 ; Atrial fibrillation, unspecified type I48.91 ; Chronic pain syndrome G89.4 ; Hypothyroidism, unspecified hypothyroidism type E03.9 ; Pancytopenia D61.818 ; History of hepatitis C Z86.19 ; Vaginal atrophy N95.2 ; RUQ abdominal pain R10.11 ; Chronic prescription opiate use Z79.891 ; Osteoporosis M81.0 and Screening for breast cancer Z12.31 [place] [id number] [place] [address] Jun, [place] [id number] [place] [address] May, [place] [id number] [address] May, [facility] [place] [id number] [place] [address] May, [facility] [place] [id number] [place] [address] Apr, [facility] [place] [id number] [place] [address] Apr, Hypothyroidism, unspecified hypothyroidism type E03.9 [place] [id number] [place] [address] Apr, Hypothyroidism, unspecified hypothyroidism type E03.9 and Leukopenia, unspecified type D72.819 [place] [id number] [place] [address] Mar, [place] [id number] [place] [address] Mar, Leukopenia, unspecified type D72.819 [place] [id number] [place] [address] Mar, Hypothyroidism, unspecified hypothyroidism type E03.9 and Low hemoglobin D64.9 [place] [id number] [place] [address] Mar, Hypothyroidism, unspecified hypothyroidism type E03.9 [place] [id number] [place] [address] Mar, Osteoporosis M81.0 ; Low hemoglobin D64.9 and Hypothyroidism, unspecified hypothyroidism type E03.9 [place] [id number] [place] [address] Mar, Hypothyroidism, unspecified hypothyroidism type E03.9 ; Bilirubin in urine R82.2 and Pancytopenia D61.818 [place] [address] [address] Feb, [facility] [id number] [place] [address] 18 Feb, 2017 Cough R05 and Bronchitis J40 [facility] [id number] [place] [address] 14 Feb, 2017 Other viral agents as the cause of diseases classified elsewhere B97.89 and Acute upper respiratory infection, unspecified J06.[address] [address] Feb, Fibromyalgia M79.7 ; Chronic pain syndrome G89.4 ; Hypothyroidism, unspecified hypothyroidism type E03.9 ; Primary insomnia F51.01 ; Osteoporosis M81.0 ; Vision abnormalities H53.9 ; Pancytopenia D61.818 ; BMI 28.0-28.9,adult Z68.28 and Encounter for immunization Z23 [address] [address] Feb, Neuroma D36.10 and Capsulitis of right foot M77.51 [place] [id number] [place] [address] Feb, [address] [address] Feb, Hypothyroidism, unspecified hypothyroidism type E03.9 [place] [id number] [place] [address] Jan, [place] [address] [address] Jan, Atrial fibrillation, unspecified type I48.[address] [address] Jan, [place] [address] [address] Jan, Fibromyalgia M79.7 ; Atrial fibrillation, unspecified type I48.91 ; Pain of left hand M79.642 ; Pain in right hand M79.641 ; Chronic prescription opiate use Z79.891 ; Chronic pain syndrome G89.4 ; Elevated fasting glucose R73.01 and Hypothyroidism, unspecified hypothyroidism type E03.9 [place] [address] [address] Jan, [place] [id number] [place] [address] Dec, Trochanteric bursitis of both hips M70.61 [place] [address] [address] Dec, [place] [address] [address] Dec, [place] [address] [address] Nov, [place] [address] [address] Nov, Unilateral headache R51 [place] [address] [address] Nov, [place] [address] [address] Oct, Unilateral headache R51 ; 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 and Allergy to intravenous contrast Z91.041 [place] [id number] [place] [address] Oct, [facility] [place] [id number] [place] [address] Oct, [facility] [place] [id number] [place] [address] Sep, Hypothyroidism, unspecified hypothyroidism type E03.9 [place] [id number] [place] [address] Sep, Hypothyroidism, unspecified hypothyroidism type E03.9 and Bilirubin in urine R82.2 [place] [address] [place] [address] Sep, Trochanteric bursitis of both hips M70.61 [facility] [place] [address] [address] Sep, Hypothyroidism, unspecified hypothyroidism type E03.9 ; Dysuria R30.0 ; Chronic tension-type headache, not intractable G44.229 and Drug induced constipation K59.03 [facility] [place] [address] [address] Sep, [facility] [place] [address] [address] Sep, [facility] [place] [address] [address] August, [facility] [place] [address] [address] Jul, [facility] [place] [address] [address] Jul, Trochanteric bursitis of right hip M70.61 [facility] [place] [address] [address] Jul, Hypothyroidism, unspecified hypothyroidism type E03.9 [facility] [place] [id number] [place] [address] Jul, Fibromyalgia M79.7 ; Chronic pain syndrome G89.4 ; Hypothyroidism, unspecified hypothyroidism type E03.9 and Other constipation K59.09 [facility] [id number] [place] [address] Jun, Swollen tonsil J35.1 and Strep throat J02.0 [facility] [place] [address] [address] Jun, [facility] [place] [address] [address] Jun, Acute maxillary sinusitis J01.00 [place] [id number] [place] [address] Jun, Hypothyroidism, unspecified hypothyroidism type E03.9 [place] [id number] [place] [address] Jun, Chronic pain syndrome G89.4 ; Fibromyalgia M79.7 ; Hypothyroidism, unspecified hypothyroidism type E03.9 and Chronic prescription opiate use Z79.891 [place] [id number] [place] [address] May, [place] [id number] [place] [address] Apr, Hypothyroidism, unspecified hypothyroidism type E03.9 [place] [id number] [place] [address] Apr, [place] [id number] [place] [address] Apr, Lipid screening Z13.220 and Hypothyroidism, unspecified hypothyroidism type E03.9 [place] [id number] [place] [address] Apr, [place] [id number] [place] [address] Mar, Trochanteric bursitis of both hips M70.61 [place] [id number] [place] [address] Mar, [place] [id number] [place] [address] Mar, Plantar fasciitis M72.2 and Porokeratosis Q82.8 [place] [id number] [place] [address] Feb, Lipid screening Z13.220 ; Vitamin D deficiency E55.9 and Hypothyroidism, unspecified hypothyroidism type E03.9 [place] [id number] [place] [address] Feb, Chronic pain syndrome G89.4 ; Hypothyroidism, unspecified hypothyroidism type E03.9 ; Pancytopenia D61.818 ; Vaginal atrophy N95.2 ; Chronic gastritis without bleeding, unspecified gastritis type K29.50 ; Vitamin D deficiency E55.9 ; Chronic prescription opiate use Z79.891 ; Adverse effect of other opioids, initial encounter T40.2X5A ; Drug induced constipation K59.03 ; Lipid screening Z13.220 and Encounter for immunization Z23 [facility] [place] [address] [address] Feb, [facility] [place] [address] [address] Feb, Ingrown toenail L60.0 [place] [address] [address] Jan, [place] [address] [address] Jan, Trochanteric bursitis of both hips M70.61 [place] [id number] [place] [address] Jan, [place] [address] [address] Jan, [facility] [place] [id number] [place] [address] Jan, [facility] [place] [address] [address] Jan, Right sided sciatica M54.31 [facility] [place] [id number] [place] [address] Dec, Onychomycosis B35.1 [facility] [place] [address] [address] Dec, [facility] [place] [id number] [place] [address] Dec, [place] [address] [address] Dec, [facility] [place] [id number] [place] [address] Dec, Osteoarthritis of right hip, unspecified osteoarthritis type M16.11 and Bursitis of right hip M70.71 [facility] [place] [id number] [place] [address] Nov, [facility] [place] [id number] [place] [address] Nov, [place] [id number] [place] [address] Nov, [place] [id number] [place] [address] Nov, Hypothyroidism, unspecified hypothyroidism type E03.9 ; Vitamin D deficiency E55.9 and History of hepatitis C Z86.19 [place] [id number] [place] [address] Nov, Right upper quadrant pain R10.11 ; History of hepatitis C Z86.19 and Low back pain M54.5 [place] [id number] [place] [address] Oct, Trochanteric bursitis, right hip M70.61 [place] [id number] [place] [address] Oct, [facility] [place] [id number] [place] [address] Oct, [place] [id number] [place] [address] Oct, Trochanteric bursitis of both hips M70.61 and Right sided sciatica M54.31 [place] [address] [address] Oct, Trochanteric bursitis of both hips M70.61 [place] [id number] [place] [address] 14 Oct, 2015 RUQ abdominal pain R10.11 [place] [address] [address] 13 Oct, 2015 Sciatic leg pain M54.30 [place] [address] [address] 11 Oct, 2015 RUQ abdominal pain R10.11 [place] [address] [address] 07 Oct, 2015 RUQ abdominal pain R10.11 ; History of hepatitis C Z86.19 and Trigger point with back pain M54.9 [place] [id number] [place] [address] Sep, [place] [address] [address] Sep, Right sided sciatica M54.31 [place] [id number] [place] [address] Sep, Hypothyroidism, unspecified hypothyroidism type E03.9 and Vitamin D deficiency E55.9 [place] [id number] [place] [address] Sep, Plantar fasciitis M72.2 and Porokeratosis Q82.8 [place] [id number] [place] [address] Sep, Hypothyroidism, unspecified hypothyroidism type E03.9 ; Chronic pain syndrome G89.4 ; Vitamin D deficiency E55.9 and Polyneuropathy associated with underlying disease G63 [place] [id number] [place] [address] August, [place] [id number] [place] [address] Jul, Plantar fasciitis M72.2 [place] [address] [place] [address] Jul, Trochanteric bursitis, right hip M70.61 [facility] [place] [id number] [place] [address] 07 Jul, 2015 Hypothyroidism, unspecified hypothyroidism type E03.9 [facility] [place] [id number] [place] [address] Jul, Hypothyroidism, unspecified hypothyroidism type E03.9 ; Chronic pain syndrome G89.4 and Polyneuropathy associated with underlying disease G63 [place] [id number] [place] [address] 10 Jun, 2015 Trochanteric bursitis of both hips M70.61 [facility] [place] [id number] [place] [address] 08 Jun, 2015 Vitamin D deficiency E55.9 ; Osteoporosis M81.0 ; Low back pain M54.5 and Plantar fasciitis M72.2 [place] [id number] [place] [address] May, Vitamin D deficiency E55.9 and Hypothyroidism, unspecified hypothyroidism type E03.9 [place] [id number] [place] [address] 23 May, 2015 Acute maxillary sinusitis J01.00 [place] [id number] [place] [address] 18 May, 2015 Osteoporosis M81.0 and Hypothyroidism, unspecified hypothyroidism type E03.9 [place] [id number] [place] [address] 16 May, 2015 Osteoporosis M81.0 [place] [id number] [place] [address] 15 May, 2015 [place] [id number] [place] [address] Apr, [place] [id number] [place] [address] Apr, Trochanteric bursitis of both hips M70.61 [place] [address] [address] Apr, Hypothyroidism, unspecified hypothyroidism type E03.9 [place] [id number] [place] [address] Apr, Chronic pain syndrome G89.4 ; Bilateral low back pain with sciatica, sciatica laterality unspecified M54.40 ; Pain in right hip M25.551 ; Pain in left hip M25.552 ; Chronic prescription opiate use Z79.899 ; Primary insomnia F51.01 and Hypothyroidism, unspecified hypothyroidism type E03.9 [place] [id number] [place] [address] Mar, [place] [address] [address] Feb, [place] [address] [address] Feb, Chronic pain syndrome G89.4 and Major depression F32.9 [place] [address] [address] Feb, Fatigue R53.83 [place] [address] [address] 13 Feb, 2015 History of fracture Z87.81 [place] [id number] [place] [address] Feb, Major depression, recurrent F33.9 and Generalized anxiety disorder F41.1 [place] [address] [address] Feb, [place] [id number] [place] [address] Jan, Hypothyroidism, unspecified hypothyroidism type E03.9 [place] [id number] Jan, Abdominal pain R10.9 and Hypothyroidism, unspecified hypothyroidism type E03.9 [place] [id number] [place] [phone] Jan, Abdominal pain R10.9 [place] [id number] [place] [address] Jan, Hypothyroidism, unspecified hypothyroidism type E03.9 [place] [id number] [place] [address] Jan, [place] [address] [address] Jan, Encntr for java j2ee lead exam (general) (routine) w/o 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 Z01.419 and Hypothyroidism, unspecified hypothyroidism type E03.9 [place] [id number] [place] [address] Jan, Encntr for java j2ee lead exam (general) (routine) w/o 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 Z01.419 ; Abdominal pain R10.9 ; Dyspareunia N94.1 ; Encounter for immunization Z23 ; History of fracture Z87.81 ; Fatigue R53.83 ; Throat fullness R68.89 ; Bruises easily R23.8 ; Hot flashes N95.1 ; Depression F32.9 and Vaginal atrophy N95.2 [place] [id number] [place] [address] Jan, Hypothyroidism, unspecified hypothyroidism type E03.9 [place] [id number] [place] [address] Jan, Unspecified abdominal pain R10.9 ; Chronic obstructive pulmonary disease, unspecified COPD type J44.9 ; Allergic rhinitis, unspecified allergic rhinitis type J30.9 ; Chronic pain syndrome G89.4 ; Hypothyroidism, unspecified hypothyroidism type E03.9 ; Chest pain, unspecified chest pain type R07.9 and Plantar fasciitis M72.2 [place] [id number] [place] [id number] Jan, Trochanteric bursitis of both hips M70.61 [facility] [place] [id number] [place] [address] Dec, [facility] [place] [id number] [place] [address] Nov, [facility] [place] [id number] [place] [phone] Nov, [facility] [place] [id number] [place] [address] Nov, Constipation 564.00 [facility] [place] [id number] [place] [address] Oct, Chronic pain 338.29 and Hypothyroidism 244.9 [facility] [place] [id number] [place] [address] Oct, [facility] [place] [id number] [place] [address] Sep, [facility] [place] [id number] [place] [address] Sep, [facility] [place] [id number] [place] [address] Sep, [facility] [place] [id number] [place] [address] Sep, [facility], [place], [facility] [id number] [place] [phone] Sep, [facility], [place], [facility] [id number] [place] [id number] Sep, [facility], [place], [facility] [id number] [place] [phone] Sep, COPD exacerbation 491.21 ; Chronic pain 338.29 ; Hypothyroidism 244.9 and Pancytopenia 284.19 [facility], [place], [facility] [id number] [place] [phone] August, [facility] [place] [facility] [address] [facility] [id number] [place] [id number] Jul, [facility] [place] [facility] [address] [facility] [id number] [place] [address] Jul, [facility] [place] [facility] [address] [facility] [id number] [place] [id number] Jun, [facility] [place] [facility] [address] [facility] [id number] [place] [id number] Jun, [facility] [place] [facility] [address] [facility] [id number] [place] [id number] Jun, [facility] [place] [facility] [address] [facility] [id number] [place] [id number] Jun, [facility] [place] [facility] [address] [id number] [place] [id number] Jun, [facility] [place] [facility] [address] [facility] [id number] [place] [address] May, [facility] [place] [facility] [address] [id number] [place] [address] May, [facility] [place] [facility] [address] [facility] [id number], [place] [address] May, [facility] [place] [facility] [address] [id number] [address] May, [facility] [place] [facility] [address] [facility] [id number], [place] [address] May, [facility] [place] [facility] [address] [facility] [id number], [place] [address] May, [facility] [place] [facility] [address] [facility] [id number], [place] [address] May, [facility] [place] [facility] [address] [id number] [address] May, [facility] [place] [facility] [address] [id number] [place] [address] May, 2014 [facility] [place] [facility] [address] [id number] [place] [address] May, [facility] [place] [facility] [address] [id number] [place] [address] May, 2014 [facility] [place] [facility] [address] [id number] [place] [address] May, [facility] [place] [facility] [address] [id number] [place] [address] May, [facility] [place] [facility] [address] [id number] [place] [address] Apr, [facility] [place] [facility] [address] [id number] [place] [address] Apr, [facility] [place] [facility] [address] [id number] [place] [address] Apr, [facility] [place] [facility] [address] [id number] [place] [address] Apr, [facility] [place] [facility] [address] [facility] [id number] [place] [address] Apr, [facility] [place] [facility] [address] [id number], [place] [address] Apr, [facility] [place] [facility] [address] [id number], [place] [address] Apr, [facility] [place] [facility] [address] [id number] [place] [address] Mar, [facility] [place] [facility] [address] [id number] [place] [address] Mar, [facility] [place] [facility] [address] [facility] [id number] [place] [address] Mar, [facility] [place] [facility] [address] [id number] [place] [address] Mar, [facility] [place] [facility] [address] [id number] [place] [address] Mar, [facility] [place] [facility] [address] [id number] [place] [address] Mar, [facility] [place] [facility] [address] [id number] [place] [address] Feb, [facility] [place] [facility] [address] [id number] [place] [address] Feb, [facility] [place] [facility] [address] [id number] [place] [address] Feb, [facility] [place] [facility] [address] [id number] [place] [address] Feb, [facility] [place] [facility] [address] [id number] [place] [address] Feb, [facility] [place] [facility] [address] [id number] [place] [address] Feb, [facility] [place] [facility] [address] [id number] [place] [address] Jan, [facility] [place] [facility] [address] [id number] [place] [address] Jan, [facility] [place] [facility] [address] [id number] [place] [address] Jan, [facility] [place] [facility] [address] [id number], [place] [address] Jan, [facility] [place] [facility] [address] [id number] [place] [address] Jan, [facility] [place] [facility] [address] [id number] [place] [address] Jan, [facility] [place] [facility] [address] [id number], [place] [address] Jan, [facility] [place] [facility] [address] [id number] [place] [address] Jan, [facility] [place] [facility] [address] [id number] [place] [address] Dec, [facility] [place] [facility] [address] [id number] [place] [address] Dec, [facility] [place] [facility] [address] [id number] [place] [address] Dec, [facility] [place] [facility] [address] [id number] [place] [address] Dec, [facility] [place] [facility] [address] [id number] [place] [address] Dec, [facility] [place] [facility] [address] [id number] [place] [address] Dec, [facility] [place] [facility] [address] [id number] [place] [address] Dec, [facility] [place] [facility] [address] [id number] [place] [address] Nov, [facility] [place] [facility] [address] [id number] [place] [address] Nov, [facility] [place] [facility] [address] [id number] [place] [address] Oct, [facility] [place] [facility] [address] [id number] [place] [address] Oct, [facility] [place] [facility] [address] [id number] [place] [address] Oct, [facility] [place] [facility] [address] [id number] [place] [address] Oct, [facility] [place] [facility] [address] [id number] [place] [address] Sep, [facility] [place] [facility] [address] [id number] [place] [address] Sep, [facility] [place] [facility] [address] [id number] [place] [address] Sep, [facility] [place] [facility] [address] [id number] [place] [address] Sep, [facility] [place] [facility] [address] [id number] [place] [address] Sep, [facility] [place] [facility] [address] [id number] [place] [address] Sep, [facility] [place] [facility] [address] [id number] [place] [address] Sep, [facility] [place] [facility] [address] [id number] [place] [address] Sep, [facility] [place] [facility] [address] [id number] [place] [address] August, [facility] [place] [facility] [address] [id number] [place] [address] August, [facility] [place] [facility] [address] [id number] [place] [address] August, [facility] [place] [facility] [address] [id number] [place] [address] August, [facility] [place] [facility] [address] [id number] [place] [address] Jul, [facility] [place] [facility] [address] [id number] [place] [address] Jul, [facility] [place] [facility] [address] [id number] [place] [address] Jul, [facility] [place] [facility] [address] [id number] [place] [address] Jul, [facility] [place] [facility] [address] [id number] [place] [address] Jul, [facility] [place] [facility] [address] [id number] [place] [address] 16 Jul, 2013 [facility] [address] [id number] [place] [address] 15 Jul, 2013 [facility] [address] [id number] [place] [address] 15 Jul, 2013 [facility] [address] [id number] [place] [address] 18 Jun, 2013 [facility] [address] [id number] [place] [address] 18 Jun, 2013 [facility] [address] [id number] [place] [address] Jun, [facility] [address] [id number] [place] [address] Jun, [facility] [address] [id number] [place] [address] Jun, [facility] [address] [id number] [place] [address] 06 Jun, 2013 [facility] [address] [id number] [place] [address] Jun, [facility] [address] [id number] [place] [address] Jun, [facility] [place] [facility] [address] [id number] [place] [address] May, [facility] [address] [id number] [place] [address] May, [facility] [place] [facility] [address] [id number] [place] [address] Apr, [facility] [place] [facility] [address] [id number] [place] [address] Apr, [facility] [place] [facility] [address] [id number] [place] [address] Mar, [facility] [place] [facility] [address] [id number] [place] [address] Mar, [facility] [place] [facility] [address] [id number] [place] [address] Mar, [facility] [place] [facility] [address] [id number] [place] [address] Mar, [facility] [place] [facility] [address] [id number] [place] [address] Mar, [facility] [place] [facility] [address] [id number] [place] [address] Mar, [facility] [place] [facility] [address] [id number] [place] [address] Mar, [facility] [place] [facility] [address] [id number] [place] [address] Feb, [facility] [place] [facility] [address] [id number] [place] [address] Feb, [facility] [place] [facility] [address] [id number] [place] [address] Feb, [facility] [place] [facility] [address] [id number] [place] [address] Feb, [facility] [place] [facility] [address] [id number] [place] [address] Feb, [facility] [place] [facility] [address] [id number], [place] [address] Feb, [facility] [place] [facility] [address] [id number] [place] [address] 26 Dec, 2012 [facility] [place] [facility] [address] [id number] [place] [address] 18 Dec, 2012 [facility] [place] [facility] [address] [id number] [place] [address] 13 Dec, 2012 [facility] [place] [facility] [address] [id number] [place] [address] 13 Dec, 2012 [facility] [address] [id number] [place] [address] Dec, [facility] [address] [id number] [place] [address] Nov, [facility] [address] [id number] [place] [address] Nov, [facility] [address] [id number] [place] [address] Oct, [facility] [address] [id number] [place] [address] August, [facility] [address] [id number] [place] [address] August, [facility] [address] [id number] [place] [address] August, [facility] [address] [id number] [place] [address] Jul, [facility] [address] [id number] [place] [address] Jul, [facility] [address] [id number] [place] [address] Jul, [facility] [address] [id number] [place] [address] Jun, [facility] [address] [id number] [place] [address] Jun, [facility] [address] [id number] [place] [address] 21 Jun, 2012 [facility] [address] [id number] [place] [address] Jun, [facility] [address] [id number] [place] [address] 18 Jun, 2012 [facility] [address] [id number] [place] [address] 15 Jun, 2012 [facility] [address] [id number] [place] [address] 12 Jun, 2012 [facility] [place] [facility] [address] [id number] [place] [address] 18 May, 2012 [facility] [place] [facility] [address] [id number] [place] [address] 11 May, 2012 [facility] [place] [facility] [address] [id number] [place] [address] 06 May, 2012 [facility] [place] [facility] [address] [id number] [place] [address] 05 May, 2012 [facility] [address] [id number] [place] [address] Apr, [facility] [address] [id number] [place] [address] Apr, [facility] [address] [id number] [place] [address] Apr, [facility] [address] [id number] [place] [address] Mar, [facility] [address] [id number] [place] [address] Mar, [facility] [place] [facility] [address] [id number] [place] [address] Mar, [facility] [place] [facility] [address] [id number] [place] [address] Mar, [facility] [place] [facility] [address] [id number] [place] [address] Mar, [facility] [place] [facility] [address] [id number] [place] [address] Mar, [facility] [place] [facility] [address] [id number], [place] [address] Mar, [facility] [place] [facility] [address] [id number] [place] [address] Mar, [facility] [place] [facility] [address] [id number] [place] [address] Feb, [facility] [place] [facility] [address] [id number] [place] [address] Feb, [facility] [place] [facility] [address] [id number] [place] [address] Feb, [facility] [place] [facility] [address] [id number] [place] [address] Jan, [facility] [place] [facility] [address] [id number] [place] [address] Jan, [facility] [place] [facility] [address] [id number] [place] [address] Jan, [facility] [place] [facility] [address] [id number] [place] [address] Jan, [facility] [place] [facility] [address] [id number] [place] [address] Jan, [facility] [place] [facility] [address] [id number] [place] [address] Jan, [facility] [place] [facility] [address] [id number], [place] [address] Jan, [facility] [place] [facility] [address] [id number], [place] [address] Dec, [facility] [place] [facility] [address] [id number] [place] [address] 24 Dec, 2011 [facility] [place] [facility] [address] [id number] [place] [address] Dec, [facility] [place] [facility] [address] [id number] [place] [address] Nov, [facility] [place] [facility] [address] [id number] [place] [address] Nov, [facility] [address] [id number] [place] [address] Nov, [facility] [place] [facility] [address] [id number] [place] [address] Nov, [facility] [address] [id number] [place] [address] Oct, [facility] [place] [facility] [address] [id number] [place] [address] Oct, [facility] [address] [id number] [place] [address] Oct, [facility] [place] [facility] [address] [id number] [place] [address] Sep, [facility] [place] [facility] [address] [id number] [place] [address] Sep, [facility] [address] [id number] [place] [address] Sep, [facility] [place] [facility] [address] [id number] [place] [address] Sep, [facility] [address] [id number] [place] [address] Sep, [facility] [place] [facility] [address] [id number] [place] [address] Sep, [facility] [place] [facility] [address] [id number] [place] [address] August, [facility] [place] [facility] [address] [id number] [place] [address] Jul, [facility] [place] [facility] [address] [id number] [place] [address] Jul, [facility] [place] [facility] [address] [id number] [place] [address] Jul, [facility] [place] [facility] [address] [id number] [place] [address] Jul, [facility] [place] [facility] [address] [id number] [place] [address] Jul, [facility] [place] [facility] [address] [id number] [place] [address] 29 Jun, 2011 [facility] [place] [facility] [address] [id number] [place] [address] Jun, [facility] [place] [facility] [address] [id number] [place] [address] Jun, [facility] [place] [facility] [address] [id number] [place] [address] Jun, [facility] [place] [facility] [address] [facility] [id number] [place] [address] Jun, [facility] [place] [facility] [address] [id number] [place] [address] May, [facility] [place] [facility] [address] [id number] [place] [address] May, [facility] [place] [facility] [address] [id number] [place] [address] May, [facility] [place] [facility] [address] [id number] [place] [address] May, [facility] [place] [facility] [address] [id number], [place] [address] May, [facility] [place] [facility] [address] [id number] [place] [address] May, [facility] [place] [facility] [address] [id number] [place] [address] May, [facility] [place] [facility] [address] [id number] [place] [address] Apr, [facility] [place] [facility] [address] [id number] [place] [address] 29 Mar, 2011 [facility] [address] [id number] [place] [address] 13 Mar, 2011 [facility] [place] [facility] [address] [id number] [place] [address] 10 Mar, 2011 [facility] [address] [id number] [place] [address] Mar, [facility] [place] [facility] [address] [id number] [place] [address] 08 Mar, 2011 [facility] [address] [id number] [place] [address] 23 Feb, 2011 [facility] [place] [facility] [address] [id number] [place] [address] 14 Feb, 2011 [facility] [place] [facility] [address] [id number] [place] [address] 14 Feb, 2011 [facility] [place] [facility] [address] [id number] [place] [address] 14 Feb, 2011 [facility] [place] [facility] [address] [id number] [place] [address] Feb, [facility] [address] [id number] [place] [address] Feb, [facility] [place] [facility] [address] [id number] [place] [address] 04 Feb, 2011 [facility] [place] [facility] [address] [id number] [place] [address] Jan, [facility] [place] [facility] [address] [id number] [place] [address] 12 Dec, 2010 [facility] [place] [facility] [address] [id number] [place] [address] Oct, [facility] [place] [facility] [address] [id number] [place] [address] Jun, [facility] [place] [facility] [address] [id number] [place] [address] Mar, [facility] [place] [facility] [address] [id number] [place] [address] Mar, [facility] [place] [facility] [address] [id number] [place] [address] 16 Mar, 2010 [facility] [place] [facility] [address] [id number] [place] [address] 16 Mar, 2010 [facility] [place] [facility] [address] [id number] [place] [address] 15 Mar, 2010 [facility] [place] [facility] [address] [id number] [place] [address] Mar, [facility] [place] [facility] [address] [id number] [place] [address] Mar, [facility] [place] [facility] [address] [id number] [place] [address] 05 Mar, 2010 [facility] [place] [facility] [address] [id number] [place] [address] Mar, [facility] [place] [facility] [address] [id number], [place] [address] Mar, [facility] [place] [facility] [address] [id number], [place] [address] Jan, [facility] [place] [facility] [address] [id number], [place] [address] Jan, [facility] [place] [facility] [address] [id number], [place] [address] Jan, [facility] [place] [facility] [address] [id number], [place] [address] Nov, [facility] [place] [facility] [address] [id number], [place] [address] Oct, [facility] [place] [facility] [address] [id number], [place] [address] Mar, [facility] [place] [address] [id number] [address] Mar, [facility] [place] [address] [id number], [place] [address] Mar, [facility] [place] [address] [id number], [place] [address] Mar, [facility] [place] [id number], [place] [address] Dec, [facility] [place] [id number] [place] [address] August, [facility] [place] [id number], [place] [address] August, [facility] [place] [id number], [place] [address] Jul, [facility] [place] [id number], [place] [address] Jan, [facility] [place] [address] [id number], [place] [address] Jan, IMMUNIZATIONS No Known Immunizations SOCIAL HISTORY Never Assessed REASON FOR VISIT Hospital Discharge Rx PLAN OF CARE VITAL SIGNS MEDICATIONS Medication Instructions Dosage Frequency Start Date End Date Duration Status Eliquis 5 mg Orally 2 times a day one tab 12h Jan, 14 days Active Metoprolol Succinate ER 25 MG Orally Once a day 1 tablet 24h Jan, 14 days Active RESULTS No Results PROCEDURES No [...] surgeries Hospitalization History multiple hospital stays for [facility]
--- OUTSIDE RECORDS SUMMARY | 2018-09-22 03:07 | XMS REPORT ---
Author Author FLORENTINEZEKIEL PUCKETT Organization [facility] Address [address] [place] [address] Care Team Providers Care Pet Handler Name Role Phone DANICA LERMAY Unavailable PROBLEMS Type Condition ICD9-CM Code LEI28-NE Code Onset Dates Condition Status SNOMED Code Problem Chronic gastritis without bleeding, unspecified gastritis type K29.50 Active 1210241 Problem Vitamin D deficiency E55.9 Active 53225745 Problem Osteoporosis M81.0 Active 75284448 Problem Unspecified abdominal pain R10.9 Active 162405372 Problem Fibromyalgia M79.7 Active 81948882 Problem Chronic pain syndrome G89.4 Active 426442935 Problem Trigger point with back pain M54.9 Active 342420442 Problem Chronic tension-type headache, not intractable G44.229 Active 533628285 Problem RUQ abdominal pain R10.11 Active 657637127 Problem Pancytopenia D61.818 Active 489950291 Problem Right sided sciatica M54.31 Active 38905505 Problem Chronic prescription opiate use Z79.891 Active 321578245 Problem Drug induced constipation K59.03 Active 589859959872513 Problem Leukopenia, unspecified type D72.819 Active 13772734 Problem Atrial fibrillation, unspecified type I48.91 Active 63523567 Problem Allergic rhinitis, unspecified allergic rhinitis type J30.9 Active 51115553 Problem Chronic obstructive pulmonary disease, unspecified COPD type J44.9 Active 36168907 Problem Hypothyroidism, unspecified hypothyroidism type E03.9 Active 08328238 Problem Other constipation K59.09 Active 713934740 Problem Porokeratosis Q82.8 Active 632101874 Problem 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 [id number] [address] Jul, [facility] [id number] [place] [address] Jun, [facility] [id number] [place] [address] Jun, [facility] [id number] [place] [address] May, [facility] [id number] [place] [address] May, [facility] [id number] [place] [address] May, [facility] [id number] [place] [address] Apr, [facility] [id number] [place] [address] Apr, Hypothyroidism, unspecified hypothyroidism type E03.9 [facility] [id number] [place] [address] Apr, Hypothyroidism, unspecified hypothyroidism type E03.9 and Leukopenia, unspecified type D72.819 [facility] [id number] [place] [address] Mar, [facility] [id number] [place] [address] Mar, Leukopenia, unspecified type D72.819 [facility] [id number] [place] [address] Mar, Hypothyroidism, unspecified hypothyroidism type E03.9 and Low hemoglobin D64.[address] [address] Mar, Hypothyroidism, unspecified hypothyroidism type E03.[address] [address] Mar, Osteoporosis M81.0 ; Low hemoglobin D64.9 and Hypothyroidism, unspecified hypothyroidism type E03.[address] [address] Mar, Hypothyroidism, unspecified hypothyroidism type E03.9 ; Bilirubin in urine R82.2 and Pancytopenia D61.[address] [address] Feb, [facility] [address] [address] Feb, Cough R05 and Bronchitis J40 [facility] [address] [address] 14 Feb, 2017 Other viral agents as the cause of diseases classified elsewhere B97.89 and Acute upper respiratory infection, unspecified J06.[address] [address] Feb, Fibromyalgia M79.7 ; Chronic pain syndrome G89.4 ; Hypothyroidism, unspecified hypothyroidism type E03.9 ; Primary insomnia F51.01 ; Osteoporosis M81.0 ; Vision abnormalities H53.9 ; Pancytopenia D61.818 ; BMI 28.0-28.9,adult Z68.28 and Encounter for immunization Z23 [address] [address] Feb, Neuroma D36.10 and Capsulitis of right foot M77.[address] [address] Feb, [id number] [place] [address] Feb, Hypothyroidism, unspecified hypothyroidism type E03.9 [facility] [id number] [place] [address] Jan, [facility] [id number] [place] [address] Jan, Atrial fibrillation, unspecified type I48.91 [facility] [id number] [place] [address] Jan, [facility] [id number] [place] [address] Jan, Fibromyalgia M79.7 ; Atrial fibrillation, unspecified type I48.91 ; Pain of left hand M79.642 ; Pain in right hand M79.641 ; Chronic prescription opiate use Z79.891 ; Chronic pain syndrome G89.4 ; Elevated fasting glucose R73.01 and Hypothyroidism, unspecified hypothyroidism type E03.9 [facility] [id number] [place] [address] Jan, [facility] [id number] [place] [address] Dec, Trochanteric bursitis of both hips M70.61 [facility] [id number] [place] [address] Dec, [facility] [id number] [place] [address] Dec, [facility] [id number] [place] [address] Nov, [facility] [id number] [place] [address] Nov, Unilateral headache R51 [facility] [id number] [place] [address] Nov, 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 [id number] [place] [address] Oct, [facility] [address] [address] Oct, [facility] [address] [address] Sep, Hypothyroidism, unspecified hypothyroidism type E03.9 [place] [address] [address] Sep, Hypothyroidism, unspecified hypothyroidism type E03.9 and Bilirubin in urine R82.2 [place] [address] [address] Sep, Trochanteric bursitis of both hips M70.61 [facility] [address] [address] Sep, Hypothyroidism, unspecified hypothyroidism type E03.9 ; Dysuria R30.0 ; Chronic tension-type headache, not intractable G44.229 and Drug induced constipation K59.03 [place] [id number] [place] [address] Sep, [facility] [id number] [place] [address] Sep, [facility] [id number] [place] [address] August, [facility] [address] [address] Jul, [facility] [id number] [place] [address] Jul, Trochanteric bursitis of right hip M70.61 [facility] [address] [place] [address] Jul, Hypothyroidism, unspecified hypothyroidism type E03.9 [facility] [address] [address] Jul, Fibromyalgia M79.7 ; Chronic pain syndrome G89.4 ; Hypothyroidism, unspecified hypothyroidism type E03.9 and Other constipation K59.09 [facility] [id number] [place] [address] Jun, Swollen tonsil J35.1 and Strep throat J02.0 [facility] [address] [address] Jun, [facility] [address] [address] Jun, Acute maxillary sinusitis J01.00 [place] [id number] [place] [address] Jun, Hypothyroidism, unspecified hypothyroidism type E03.9 [facility] [id number] [place] [address] Jun, Chronic pain syndrome G89.4 ; Fibromyalgia M79.7 ; Hypothyroidism, unspecified hypothyroidism type E03.9 and Chronic prescription opiate use Z79.891 [facility] [id number] [place] [address] May, [facility] [id number] [place] [address] Apr, Hypothyroidism, unspecified hypothyroidism type E03.9 [facility] [id number] [place] [address] Apr, [facility] [address] [address] Apr, Lipid screening Z13.220 and Hypothyroidism, unspecified hypothyroidism type E03.9 [facility] [id number] [place] [address] Apr, [facility] [address] [place] [address] Mar, Trochanteric bursitis of both hips M70.61 [facility] [id number] [place] [address] Mar, [facility] [id number] [place] [address] Mar, Plantar fasciitis M72.2 and Porokeratosis Q82.8 [place] [id number] [place] [address] Feb, Lipid screening Z13.220 ; Vitamin D deficiency E55.9 and Hypothyroidism, unspecified hypothyroidism type E03.9 [place] [id number] [place] [address] 16 Feb, 2016 Chronic pain syndrome G89.4 ; Hypothyroidism, unspecified hypothyroidism type E03.9 ; Pancytopenia D61.818 ; Vaginal atrophy N95.2 ; Chronic gastritis without bleeding, unspecified gastritis type K29.50 ; Vitamin D deficiency E55.9 ; Chronic prescription opiate use Z79.891 ; Adverse effect of other opioids, initial encounter T40.2X5A ; Drug induced constipation K59.03 ; Lipid screening Z13.220 and Encounter for immunization Z23 [place] [id number] [place] [address] Feb, [place] [id number] [place] [address] Feb, Ingrown toenail L60.0 [place] [id number] [place] [address] Jan, [address] [address] [address] Jan, Trochanteric bursitis of both hips M70.61 [place] [id number] [place] [address] Jan, [facility] [address], [place] [address] Jan, [facility] [id number] [place] [address] Jan, [facility] [id number], [place] [address] Jan, Right sided sciatica M54.31 [facility] [id number] [place] [address] 23 Dec, [address] [facility] [id number] [place] [address] 22 Dec, 2015 [facility] [id number] [place] [address] Dec, [facility] [id number] [place] [address] 09 Dec, 2015 [facility] [address] [place] [address] Dec, Osteoarthritis of right hip, unspecified osteoarthritis type M16.11 and Bursitis of right hip M70.71 [facility] [address] [address] Nov, [facility] [address], [place] [address] Nov, [facility] [id number], [place] [address] Nov, [facility] [address], [place] [address] Nov, Hypothyroidism, unspecified hypothyroidism type E03.9 ; Vitamin D deficiency E55.9 and History of hepatitis C Z86.19 [facility] [address], [place] [address] Nov, Right upper quadrant pain R10.11 ; History of hepatitis C Z86.19 and Low back pain M54.5 [facility] [id number] [place] [address] Oct, Trochanteric bursitis, right hip M70.61 [facility] [id number] [place] [address] Oct, [facility] [id number] [place] [address] Oct, [facility] [id number] [place] [address] Oct, Trochanteric bursitis of both hips M70.61 and Right sided sciatica M54.31 [facility] [id number] [place] [address] Oct, Trochanteric bursitis of both hips M70.61 [facility] [id number] [place] [address] Oct, RUQ abdominal pain R10.11 [facility] [id number] [place] [address] Oct, Sciatic leg pain M54.30 [facility] [id number] [place] [address] Oct, RUQ abdominal pain R10.11 [facility] [id number] [place] [address] Oct, RUQ abdominal pain R10.11 ; History of hepatitis C Z86.19 and Trigger point with back pain M54.9 [facility] [id number] [place] [address] Sep, [facility] [id number] [place] [address] Sep, Right sided sciatica M54.31 [facility] [id number] [place] [address] Sep, Hypothyroidism, unspecified hypothyroidism type E03.9 and Vitamin D deficiency E55.9 [place] [id number] [place] [address] Sep, Plantar fasciitis M72.[address] [facility] [id number] [place] [address] Sep, Hypothyroidism, unspecified hypothyroidism type E03.9 ; Chronic pain syndrome G89.4 ; Polyneuropathy associated with underlying disease G63 and Vitamin D deficiency E55.9 [place] [id number] [place] [address] August, [place] [id number] [place] [address] Jul, Plantar fasciitis M72.2 [place] [id number] [place] [address] Jul, Trochanteric bursitis, right hip M70.61 [place] [id number] [place] [address] Jul, Hypothyroidism, unspecified hypothyroidism type E03.9 [place] [id number] [place] [address] Jul, Hypothyroidism, unspecified hypothyroidism type E03.9 ; Chronic pain syndrome G89.4 and Polyneuropathy associated with underlying disease G63 [place] [id number] [place] [address] Jun, Trochanteric bursitis of both hips M70.61 [place] [id number] [place] [address] Jun, Vitamin D deficiency E55.9 ; Osteoporosis M81.0 ; Low back pain M54.5 and Plantar fasciitis M72.2 [place] [id number] [place] [address] May, Vitamin D deficiency E55.9 and Hypothyroidism, unspecified hypothyroidism type E03.9 [facility] [address], [place] [address] May, Acute maxillary sinusitis J01.00 [facility] [address] [place] [address] 18 May, 2015 Osteoporosis M81.0 and Hypothyroidism, unspecified hypothyroidism type E03.9 [facility] [address] [place] [address] 16 May, [address] [facility] [address] [place] [address] May, [facility] [id number] [place] [address] Apr, [facility] [id number] [place] [address] Apr, Trochanteric bursitis of both hips M70.61 [facility] [address] [place] [address] Apr, Hypothyroidism, unspecified hypothyroidism type E03.9 [facility] [address] [place] [address] Apr, Chronic pain syndrome G89.4 ; Bilateral low back pain with sciatica, sciatica laterality unspecified M54.40 ; Pain in right hip M25.551 ; Pain in left hip M25.552 ; Chronic prescription opiate use Z79.899 ; Primary insomnia F51.01 and Hypothyroidism, unspecified hypothyroidism type E03.9 [facility] [address], [place] [address] Mar, [facility] [id number] [place] [address] Feb, [facility] [address] [place] [address] Feb, Chronic pain syndrome G89.4 and Major depression F32.9 [place] [id number] [place] [address] 16 Feb, 2015 Fatigue R53.83 [place] [address] [address] 13 Feb, 2015 History of fracture Z87.81 [place] [id number] [place] [address] 12 Feb, 2015 Major depression, recurrent F33.9 and Generalized anxiety disorder F41.1 [place] [id number] [place] [address] Feb, [place] [id number] [place] [address] Jan, Hypothyroidism, unspecified hypothyroidism type E03.9 [place] [id number] [place] [address] Jan, Abdominal pain R10.9 and Hypothyroidism, unspecified hypothyroidism type E03.9 [place] [id number] [place] [address] Jan, Abdominal pain R10.9 [place] [id number] [place] [address] Jan, Hypothyroidism, unspecified hypothyroidism type E03.9 [place] [id number] [place] [address] Jan, [place] [id number] [place] [address] Jan, Encntr for ob/gyn physician exam (general) (routine) w/o 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 Z01.419 and Hypothyroidism, unspecified hypothyroidism type E03.9 [place] [address] [place] [address] Jan, Encntr for ob/gyn physician exam (general) (routine) w/o 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 Z01.419 ; Abdominal pain R10.9 ; Dyspareunia N94.1 ; Encounter for immunization Z23 ; History of fracture Z87.81 ; Fatigue R53.83 ; Throat fullness R68.89 ; Bruises easily R23.8 ; Hot flashes N95.1 ; Depression F32.9 and Vaginal atrophy N95.2 [place] [id number] [place] [address] Jan, Hypothyroidism, unspecified hypothyroidism type E03.9 [place] [address] [address] Jan, Unspecified abdominal pain R10.9 ; Chronic obstructive pulmonary disease, unspecified COPD type J44.9 ; Allergic rhinitis, unspecified allergic rhinitis type J30.9 ; Chronic pain syndrome G89.4 ; Hypothyroidism, unspecified hypothyroidism type E03.9 ; Chest pain, unspecified chest pain type R07.9 and Plantar fasciitis M72.2 [place] [address] [address] Jan, Trochanteric bursitis of both hips M70.61 [place] [address] [address] Dec, [place] [address] [address] Nov, [place] [address] [address] Nov, [place] [address] [address] Nov, Constipation 564.00 [place] [address] [address] Oct, Chronic pain 338.29 and Hypothyroidism 244.9 [place] [address] [address] Oct, [place] [address] [address] Sep, [place] [address] [address] Sep, [facility] [address], [place] [address] Sep, [facility] [id number] [address] Sep, [facility] [id number], [place] [address] Sep, [facility] [address] [place] [place] [id number] [place] [address] Sep, [facility] [id number] [place] [address] Sep, COPD exacerbation 491.21 ; Chronic pain 338.29 ; Hypothyroidism 244.9 and Pancytopenia 284.19 [facility] [id number], [place] [address] August, [facility] [address] [place] [place] [id number] [place] [address] Jul, [facility] [id number] [address] Jul, [facility] [id number], [place] [address] Jun, [facility] [id number], [place] [address] Jun, [facility] [id number], [place] [address] Jun, [facility] [id number], [place] [address] Jun, [facility] [id number] [address] Jun, [facility] [address] [id number] [address] May, [facility] [id number] [address] May, 2014 [facility] [place] [facility] [address] [id number] [place] [address] May, 2014 [facility] [place] [facility] [address] [id number] [place] [address] May, 2014 [facility] [place] [facility] [address] [facility] [id number] [place] [address] May, 2014 [facility] [place] [facility] [address] [id number] [place] [address] May, 2014 [facility] [place] [facility] [address] [facility] [id number] [place] [address] May, 2014 [facility] [place] [facility] [address] [facility] [id number] [place] [address] May, 2014 [facility] [place] [facility] [address] [place] [id number] [place] [address] May, 2014 [facility] [place] [facility] [address] [facility] [id number] [place] [address] May, [facility] [place] [facility] [address] [place] [id number] [facility] [place] [address] May, [facility] [place] [facility] [address] [facility] [id number] [place] [address] May, [facility] [place] [facility] [address] [facility] [id number] [place] [address] May, [facility] [place] [facility] [address] [facility] [id number] [place] [address] Apr, [facility] [place] [facility] [address] [facility] [id number] [place] [address] Apr, [facility] [place] [facility] [address] [facility] [id number] [place] [address] Apr, [facility] [place] [facility] [address] [facility] [id number] [place] [address] Apr, [facility] [place] [facility] [address] [id number] [place] [address] Apr, [facility] [place] [facility] [address] [id number] [place] [address] Apr, [facility] [place] [facility] [address] [id number] [place] [address] Apr, [facility] [place] [facility] [address] [id number] [place] [address] Mar, [facility] [place] [facility] [address] [id number] [place] [address] Mar, [facility] [place] [facility] [address] [id number] [place] [address] Mar, [facility] [place] [facility] [address] [id number] [place] [address] Mar, [facility] [place] [facility] [address] [id number] [place] [address] Mar, [facility] [place] [facility] [address] [id number] [place] [address] Mar, [facility] [place] [facility] [address] [id number] [place] [address] Feb, [facility] [place] [facility] [address] [id number] [place] [address] Feb, [facility] [place] [facility] [address] [id number], [place] [address] Feb, [facility] [place] [facility] [address] [id number] [place] [address] Feb, [facility] [place] [facility] [address] [id number] [place] [address] Feb, [facility] [place] [facility] [address] [id number] [place] [address] Feb, [facility] [place] [facility] [address] [id number] [place] [address] Jan, [facility] [place] [facility] [address] [id number] [place] [address] Jan, [facility] [place] [facility] [address] [id number] [place] [address] Jan, [facility] [place] [facility] [address] [id number] [place] [address] Jan, [facility] [place] [facility] [address] [id number] [place] [address] Jan, [facility] [place] [facility] [address] [id number] [place] [address] Jan, [facility] [place] [facility] [address] [id number] [place] [address] Jan, [facility] [place] [facility] [address] [id number] [place] [address] Jan, [facility] [place] [facility] [address] [id number] [place] [address] 25 Dec, 2013 [facility] [place] [facility] [address] [id number] [place] [address] 25 Dec, 2013 [facility] [place] [facility] [address] [id number] [place] [address] 23 Dec, 2013 [facility] [place] [facility] [address] [id number] [place] [address] 23 Dec, 2013 [facility] [place] [facility] [address] [id number] [place] [address] 13 Dec, 2013 [facility] [place] [facility] [address] [id number] [place] [address] 10 Dec, 2013 [facility] [place] [facility] [address] [id number] [place] [address] 10 Dec, 2013 [facility] [place] [facility] [address] [id number] [place] [address] Nov, [facility] [place] [facility] [address] [id number] [place] [address] Nov, [facility] [place] [facility] [address] [id number] [place] [address] Oct, [facility] [place] [facility] [address] [id number] [place] [address] Oct, [facility] [place] [facility] [address] [id number] [place] [address] Oct, [facility] [place] [facility] [address] [id number] [place] [address] Oct, [facility] [place] [facility] [address] [id number] [place] [address] Sep, [facility] [place] [facility] [address] [id number] [place] [address] Sep, [facility] [place] [facility] [address] [id number] [place] [address] Sep, [facility] [place] [facility] [address] [id number] [place] [address] Sep, [facility] [place] [facility] [address] [id number] [place] [address] Sep, [facility] [place] [facility] [address] [id number] [place] [address] Sep, [facility] [place] [facility] [address] [id number] [place] [address] Sep, [facility] [place] [facility] [address] [id number] [place] [address] Sep, [facility] [place] [facility] [address] [id number] [place] [address] August, [facility] [place] [facility] [address] [id number] [place] [address] August, [facility] [place] [facility] [address] [id number] [place] [address] August, [facility] [place] [facility] [address] [id number] [place] [address] August, [facility] [place] [facility] [address] [id number] [place] [address] Jul, [facility] [place] [facility] [address] [id number] [place] [address] Jul, [facility] [place] [facility] [address] [id number] [place] [address] Jul, [facility] [place] [facility] [address] [id number] [place] [address] Jul, [facility] [place] [facility] [address] [id number] [place] [address] Jul, [facility] [place] [facility] [address] [id number] [place] [address] 16 Jul, 2013 [facility] [place] [facility] [address] [id number] [place] [address] Jul, [facility] [place] [facility] [address] [id number] [place] [address] Jul, [facility] [place] [facility] [address] [id number] [place] [address] Jun, [facility] [place] [facility] [address] [id number] [place] [address] Jun, [facility] [place] [facility] [address] [id number] [place] [address] Jun, [facility] [place] [facility] [address] [id number] [place] [address] Jun, [facility] [place] [facility] [address] [id number] [place] [address] Jun, [facility] [place] [facility] [address] [id number] [place] [address] Jun, [facility] [place] [facility] [address] [id number] [place] [address] Jun, [facility] [address] [id number] [place] [address] Jun, [facility] [address] [id number] [place] [address] May, [facility] [address] [id number] [place] [address] May, [facility] [address] [id number] [place] [address] Apr, [facility] [address] [id number] [place] [address] Apr, [facility] [address] [id number] [place] [address] Mar, [facility] [address] [id number] [place] [address] 24 Mar, 2013 [facility] [address] [id number] [place] [address] Mar, [facility] [address] [id number] [place] [address] Mar, [facility] [address] [id number] [place] [address] 18 Mar, 2013 [facility] [place] [facility] [address] [id number] [place] [address] Mar, [facility] [address] [id number] [place] [address] Mar, [facility] [place] [facility] [address] [id number] [place] [address] Feb, [facility] [place] [facility] [address] [id number] [place] [address] Feb, [facility] [place] [facility] [address] [id number] [place] [address] Feb, [facility] [place] [facility] [address] [id number] [place] [address] Feb, [facility] [place] [facility] [address] [id number] [place] [address] Feb, [facility] [place] [facility] [address] [id number] [place] [address] Feb, [facility] [place] [facility] [address] [id number] [place] [address] 26 Dec, 2012 [facility] [place] [facility] [address] [id number] [place] [address] 18 Dec, 2012 [facility] [place] [facility] [address] [id number] [place] [address] Dec, [facility] [place] [facility] [address] [id number] [place] [address] Dec, [facility] [place] [facility] [address] [id number] [place] [address] Dec, [facility] [place] [facility] [address] [id number] [place] [address] Nov, [facility] [place] [facility] [address] [id number] [place] [address] Nov, [facility] [place] [facility] [address] [id number] [place] [address] Oct, [facility] [place] [facility] [address] [id number] [place] [address] August, [facility] [place] [facility] [address] [id number] [place] [address] August, [facility] [place] [facility] [address] [id number] [place] [address] August, [facility] [place] [facility] [address] [id number] [place] [address] Jul, [facility] [place] [facility] [address] [id number] [place] [address] Jul, [facility] [address] [id number] [place] [address] 04 Jul, 2012 [facility] [address] [id number] [place] [address] 27 Jun, 2012 [facility] [address] [id number] [place] [address] Jun, [facility] [address] [id number] [place] [address] Jun, [facility] [address] [id number] [place] [address] Jun, [facility] [address] [id number] [place] [address] Jun, [facility] [address] [id number] [place] [address] 15 Jun, 2012 [facility] [address] [id number] [place] [address] Jun, [facility] [address] [id number] [place] [address] 18 May, 2012 [facility] [address] [id number] [place] [address] May, [facility] [address] [id number] [place] [address] 06 May, 2012 [facility] [address] [id number] [place] [address] 05 May, 2012 [facility] [place] [facility] [address] [id number] [place] [address] Apr, [facility] [place] [facility] [address] [id number] [place] [address] Apr, [facility] [address] [id number] [place] [address] Apr, [facility] [place] [facility] [address] [id number] [place] [address] Mar, [facility] [place] [facility] [address] [id number] [place] [address] Mar, [facility] [place] [facility] [address] [id number] [place] [address] Mar, [facility] [place] [facility] [address] [id number] [place] [address] Mar, [facility] [address] [id number] [place] [address] Mar, [facility] [place] [facility] [address] [id number] [place] [address] Mar, [facility] [address] [id number] [place] [address] Mar, [facility] [place] [facility] [address] [id number] [place] [address] Mar, [facility] [place] [facility] [address] [id number] [place] [address] Feb, [facility] [place] [facility] [address] [id number] [place] [address] Feb, [facility] [place] [facility] [address] [id number] [place] [address] Feb, [facility] [place] [facility] [address] [id number], [place] [address] Jan, [facility] [place] [facility] [address] [id number] [place] [address] Jan, [facility] [place] [facility] [address] [id number] [place] [address] Jan, [facility] [place] [facility] [address] [id number] [place] [address] Jan, [facility] [place] [facility] [address] [id number], [place] [address] Jan, [facility] [place] [facility] [address] [id number] [place] [address] Jan, [facility] [place] [facility] [address] [id number] [place] [address] Jan, [facility] [place] [facility] [address] [id number] [place] [address] Dec, [facility] [place] [facility] [address] [id number] [place] [address] 24 Dec, 2011 [facility] [place] [facility] [address] [id number] [place] [address] Dec, [facility] [place] [facility] [address] [id number] [place] [address] Nov, [facility] [place] [facility] [address] [id number] [place] [address] Nov, [facility] [place] [facility] [address] [id number] [place] [address] Nov, [facility] [place] [facility] [address] [id number] [place] [address] Nov, [facility] [place] [facility] [address] [id number] [place] [address] Oct, [facility] [place] [facility] [address] [id number] [place] [address] Oct, [facility] [place] [facility] [address] [id number] [place] [address] Oct, [facility] [place] [facility] [address] [id number] [place] [address] Sep, [facility] [place] [facility] [address] [id number] [place] [address] Sep, [facility] [place] [facility] [address] [id number] [place] [address] Sep, [facility] [place] [facility] [address] [id number] [place] [address] Sep, [facility] [address] [id number] [place] [address] Sep, [facility] [place] [facility] [address] [id number] [place] [address] Sep, [facility] [address] [id number] [place] [address] August, [facility] [address] [id number] [place] [address] Jul, [facility] [address] [id number] [place] [address] Jul, [facility] [address] [id number] [place] [address] Jul, [facility] [address] [id number] [place] [address] Jul, [facility] [address] [id number] [place] [address] Jul, [facility] [address] [id number] [place] [address] 29 Jun, 2011 [facility] [address] [id number] [place] [address] Jun, [facility] [place] [facility] [address] [id number] [place] [address] 15 Jun, 2011 [facility] [address] [id number] [place] [address] 15 Jun, 2011 [facility] [place] [facility] [address] [id number] [place] [address] Jun, [facility] [place] [facility] [address] [id number] [place] [address] May, [facility] [place] [facility] [address] [id number] [place] [address] May, [facility] [place] [facility] [address] [id number] [place] [address] May, [facility] [place] [facility] [address] [id number] [place] [address] May, [facility] [place] [facility] [address] [id number] [place] [address] May, [facility] [place] [facility] [address] [id number] [place] [address] May, [facility] [place] [facility] [address] [id number] [place] [address] May, [facility] [place] [facility] [address] [id number] [place] [address] Apr, [facility] [place] [facility] [address] [id number] [place] [address] Mar, [facility] [place] [facility] [address] [id number] [place] [address] Mar, [facility] [place] [facility] [address] [id number] [place] [address] Mar, [facility] [place] [facility] [address] [id number] [place] [address] Mar, [facility] [place] [facility] [address] [id number] [place] [address] 08 Mar, 2011 [facility] [place] [facility] [address] [id number] [place] [address] 23 Feb, 2011 [facility] [place] [facility] [address] [id number] [place] [address] 14 Feb, 2011 [facility] [place] [facility] [address] [id number] [place] [address] 14 Feb, 2011 [facility] [place] [facility] [address] [id number] [place] [address] 14 Feb, 2011 [facility] [place] [facility] [address] [id number] [place] [address] 07 Feb, 2011 [facility] [address] [id number] [place] [address] Feb, [facility] [place] [facility] [address] [id number] [place] [address] Feb, [facility] [address] [id number] [place] [address] Jan, [facility] [place] [facility] [address] [id number] [place] [address] Dec, [facility] [address] [id number] [place] [address] Oct, [facility] [address] [id number] [place] [address] Jun, [facility] [address] [id number] [place] [address] Mar, [facility] [address] [id number] [place] [address] 23 Mar, 2010 [facility] [address] [id number] [place] [address] 16 Mar, 2010 [facility] [address] [id number] [place] [address] 16 Mar, 2010 [facility] [address] [id number] [place] [address] 15 Mar, 2010 [facility] [address] [id number] [place] [address] 10 Mar, 2010 [facility] [place] [facility] [address] [id number] [place] [address] 10 Mar, 2010 [facility] [place] [facility] [address] [id number] [place] [address] 05 Mar, 2010 [facility] [address] [id number] [place] [address] Mar, [facility] [address] [id number] [place] [address] Mar, [facility] [place] [facility] [address] [id number] [place] [address] Jan, [facility] [place] [facility] [address] [id number] [place] [address] Jan, [facility] [place] [facility] [address] [id number] [place] [address] Jan, [facility] [address] [id number] [place] [address] Nov, [facility] [place] [facility] [address] [id number] [place] [address] Oct, [facility] [place] [facility] [address] [id number] [place] [address] 31 Mar, 2009 [facility] [place] [facility] [address] [id number], [place] [address] Mar, [facility] [place] [facility] [address] [id number], [place] [address] Mar, [facility] [place] [facility] [address] [facility] [id number], [place] [address] Mar, [facility] [place] [facility] [address] [id number], [place] [address] 17 Dec, 2008 [facility] [place] [facility] [address] [id number], [place] [address] August, [facility] [place] [facility] [address] [id number], [place] [address] August, [facility] [place] [facility] [address] [id number], [place] [address] 15 Jul, 2008 [facility] [place] [facility] [address] [facility] [id number], [place] [address] Jan, [facility] [place] [facility] [address] [id number], [place] [address] Jan, IMMUNIZATIONS No Known Immunizations SOCIAL HISTORY Never Assessed REASON FOR VISIT Med change/Lab order PLAN OF CARE VITAL SIGNS MEDICATIONS Unknown [...]
--- OUTSIDE RECORDS SUMMARY | 2018-09-22 03:08 | XMS REPORT ---
Author Author FLORENTINEZEKIEL PUCKETT Organization [facility] Address [address] [place] [address] Care Team Providers Care Unload Associate Name Role Phone DANICA LERMAY Unavailable PROBLEMS Type Condition ICD9-CM Code DLL79-MG Code Onset Dates Condition Status SNOMED Code Problem Chronic gastritis without bleeding, unspecified gastritis type K29.50 Active 1132062 Problem Vitamin D deficiency E55.9 Active 14693812 Problem Osteoporosis M81.0 Active 96627516 Problem Unspecified abdominal pain R10.9 Active 359446395 Problem Fibromyalgia M79.7 Active 80576599 Problem Chronic pain syndrome G89.4 Active 002337543 Problem Trigger point with back pain M54.9 Active 843156138 Problem Chronic tension-type headache, not intractable G44.229 Active 621281146 Problem RUQ abdominal pain R10.11 Active 061551161 Problem Pancytopenia D61.818 Active 981120533 Problem Right sided sciatica M54.31 Active 70444072 Problem Chronic prescription opiate use Z79.891 Active 375431248 Problem Drug induced constipation K59.03 Active 962060369536142 Problem Leukopenia, unspecified type D72.819 Active 93845855 Problem Atrial fibrillation, unspecified type I48.91 Active 05188926 Problem Allergic rhinitis, unspecified allergic rhinitis type J30.9 Active 79206606 Problem Chronic obstructive pulmonary disease, unspecified COPD type J44.9 Active 38075773 Problem Hypothyroidism, unspecified hypothyroidism type E03.9 Active 29711980 Problem Other constipation K59.09 Active 203297762 Problem Porokeratosis Q82.8 Active 612351738 Problem 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 Active 674108270 Problem Allergy to intravenous contrast Z91.041 Active 664219300 Problem Vaginal atrophy N95.2 Active 972268575 Problem Major depression, recurrent F33.9 Active 47684781 Problem History of hepatitis C Z86.19 Active 88502006723386 Problem Hot flashes N95.1 Active 632612881 Problem Plantar fasciitis M72.2 Active 438863523 Problem Polyneuropathy associated with underlying disease G63 Active 122122303 Problem Primary insomnia F51.01 Active 9238196 Problem Low back pain M54.5 Active 005215875 ALLERGIES No Information ENCOUNTERS Encounter Location Date Diagnosis [facility] [id number], [place] [address] Nov, [facility] [id number] [place] [address] Nov, [facility] [id number] [place] [address] Oct, [facility] [id number] [place] [address] Sep, Chronic pain syndrome G89.4 [facility] [id number] [place] [address] August, Somatic dysfunction of lumbar region M99.03 and Somatic dysfunction of pelvis region M99.05 [facility] [id number] [place] [address] August, Chronic pain syndrome G89.4 [facility] [id number] [place] [address] Jul, Trochanteric bursitis of left hip M70.62 and Trochanteric bursitis, right hip M70.61 [facility] [id number] [place] [address] Jul, [facility] [id number] [place] [address] Jul, Chronic pain syndrome G89.4 [facility] [id number] [place] [address] Jul, Hypothyroidism, unspecified hypothyroidism type E03.9 [facility] [id number] [place] [address] Jul, Hypothyroidism, unspecified hypothyroidism type E03.9 [facility] [id number] [place] [address] Jul, Chronic tension-type headache, not intractable G44.229 ; Atrial fibrillation, unspecified type I48.91 ; Chronic pain syndrome G89.4 ; Hypothyroidism, unspecified hypothyroidism type E03.9 ; Pancytopenia D61.818 ; History of hepatitis C Z86.19 ; Vaginal atrophy N95.2 ; RUQ abdominal pain R10.11 ; Chronic prescription opiate use Z79.891 ; Osteoporosis M81.0 and Screening for breast cancer Z12.31 [facility] [id number] [place] [address] Jun, [facility] [id number] [place] [address] May, [facility] [id number] [place] [address] May, [facility] [id number] [place] [address] May, [facility] [id number] [place] [address] Apr, [facility] [id number] [place] [address] Apr, Hypothyroidism, unspecified hypothyroidism type E03.9 [facility] [id number] [place] [address] Apr, Hypothyroidism, unspecified hypothyroidism type E03.9 and Leukopenia, unspecified type D72.819 [facility] [id number] [place] [address] Mar, [facility] [id number] [place] [address] Mar, Leukopenia, unspecified type D72.819 [facility] [id number] [place] [address] Mar, Hypothyroidism, unspecified hypothyroidism type E03.9 and Low hemoglobin D64.9 [facility] [address] [address] Mar, Hypothyroidism, unspecified hypothyroidism type E03.9 [facility] [address] [address] Mar, Osteoporosis M81.0 ; Low hemoglobin D64.9 and Hypothyroidism, unspecified hypothyroidism type E03.[address] [address] Mar, Hypothyroidism, unspecified hypothyroidism type E03.9 ; Bilirubin in urine R82.2 and Pancytopenia D61.[address] [address] Feb, [facility] [address] [address] Feb, Cough R05 and Bronchitis J40 [facility] [address] [address] 14 Feb, 2017 Other viral agents as the cause of diseases classified elsewhere B97.89 and Acute upper respiratory infection, unspecified J06.[address] [address] Feb, Fibromyalgia M79.7 ; Chronic pain syndrome G89.4 ; Hypothyroidism, unspecified hypothyroidism type E03.9 ; Primary insomnia F51.01 ; Osteoporosis M81.0 ; Vision abnormalities H53.9 ; Pancytopenia D61.818 ; BMI 28.0-28.9,adult Z68.28 and Encounter for immunization Z23 [address] [address] Feb, Neuroma D36.10 and Capsulitis of right foot M77.[address] [address] Feb, [facility] [address], [place] [address] Feb, Hypothyroidism, unspecified hypothyroidism type E03.9 [facility] [id number] [place] [address] Jan, [facility] [id number] [place] [address] Jan, Atrial fibrillation, unspecified type I48.91 [facility] [id number] [place] [address] Jan, [facility] [id number] [place] [address] Jan, Fibromyalgia M79.7 ; Atrial fibrillation, unspecified type I48.91 ; Pain of left hand M79.642 ; Pain in right hand M79.641 ; Chronic prescription opiate use Z79.891 ; Chronic pain syndrome G89.4 ; Elevated fasting glucose R73.01 and Hypothyroidism, unspecified hypothyroidism type E03.9 [facility] [address], [place] [address] Jan, [facility] [id number] [place] [address] Dec, Trochanteric bursitis of both hips M70.61 [facility] [address] [place] [address] Dec, [facility] [id number] [place] [address] Dec, [facility] [id number] [place] [address] Nov, [facility] [id number] [place] [address] Nov, Unilateral headache R51 [facility] [id number] [place] [address] Nov, [facility] [id number] [place] [address] Oct, Unilateral headache R51 ; 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 and Allergy to intravenous contrast Z91.041 [facility] [id number] [place] [address] Oct, [facility] [id number] [place] [address] Oct, [facility] [address] [address] Sep, Hypothyroidism, unspecified hypothyroidism type E03.9 [facility] [address] [address] Sep, Hypothyroidism, unspecified hypothyroidism type E03.9 and Bilirubin in urine R82.2 [facility] [id number] [place] [address] Sep, Trochanteric bursitis of both hips M70.61 [facility] [id number] [place] [address] Sep, Hypothyroidism, unspecified hypothyroidism type E03.9 ; Dysuria R30.0 ; Chronic tension-type headache, not intractable G44.229 and Drug induced constipation K59.03 [facility] [address] [place] [address] Sep, [facility] [id number] [place] [address] Sep, [facility] [id number] [place] [address] August, [facility] [id number] [place] [address] Jul, [facility] [id number] [place] [address] Jul, Trochanteric bursitis of right hip M70.61 [facility] [id number] [place] [address] Jul, Hypothyroidism, unspecified hypothyroidism type E03.9 [facility] [address] [address] Jul, Fibromyalgia M79.7 ; Chronic pain syndrome G89.4 ; Hypothyroidism, unspecified hypothyroidism type E03.9 and Other constipation K59.09 [facility] [address] [address] Jun, Swollen tonsil J35.1 and Strep throat J02.0 [facility] [address] [address] Jun, [facility] [address] [address] Jun, Acute maxillary sinusitis J01.00 [facility] [address] [address] Jun, Hypothyroidism, unspecified hypothyroidism type E03.9 [facility] [id number] [place] [address] Jun, Chronic pain syndrome G89.4 ; Fibromyalgia M79.7 ; Hypothyroidism, unspecified hypothyroidism type E03.9 and Chronic prescription opiate use Z79.891 [facility] [id number] [place] [address] May, [facility] [address] [address] Apr, Hypothyroidism, unspecified hypothyroidism type E03.9 [facility] [id number] [place] [address] Apr, [facility] [address] [address] Apr, Lipid screening Z13.220 and Hypothyroidism, unspecified hypothyroidism type E03.9 [facility] [address] [address] Apr, [facility] [id number] [place] [address] Mar, Trochanteric bursitis of both hips M70.61 [facility] [id number] [place] [address] Mar, [facility] [id number] [place] [address] Mar, Plantar fasciitis M72.2 and Porokeratosis Q82.8 [facility] [id number] [place] [address] Feb, Lipid screening Z13.220 ; Vitamin D deficiency E55.9 and Hypothyroidism, unspecified hypothyroidism type E03.9 [facility] [id number] [place] [address] 16 Feb, 2016 Chronic pain syndrome G89.4 ; Hypothyroidism, unspecified hypothyroidism type E03.9 ; Pancytopenia D61.818 ; Vaginal atrophy N95.2 ; Chronic gastritis without bleeding, unspecified gastritis type K29.50 ; Vitamin D deficiency E55.9 ; Chronic prescription opiate use Z79.891 ; Adverse effect of other opioids, initial encounter T40.2X5A ; Drug induced constipation K59.03 ; Lipid screening Z13.220 and Encounter for immunization Z23 [facility] [id number] [place] [address] Feb, [facility] [id number] [place] [address] Feb, Ingrown toenail L60.0 [facility] [id number] [place] [address] Jan, [facility] [address] [address] Jan, Trochanteric bursitis of both hips M70.61 [facility] [id number] [place] [address] Jan, [facility] [address] [address] Jan, [facility] [address] [place] [address] Jan, [facility] [address], [place] [address] Jan, Right sided sciatica M54.31 [facility] [id number] [place] [address] 23 Dec, 2015 Onychomycosis B35.1 [facility] [id number] [place] [address] 22 Dec, 2015 [facility] [id number] [place] [address] Dec, [facility] [id number] [place] [address] Dec, [facility] [address] [place] [address] Dec, Osteoarthritis of right hip, unspecified osteoarthritis type M16.11 and Bursitis of right hip M70.71 [facility] [address], [place] [address] Nov, [facility] [address], [place] [address] Nov, [facility] [address], [place] [address] Nov, [facility] [address] [place] [address] Nov, Hypothyroidism, unspecified hypothyroidism type E03.9 ; Vitamin D deficiency E55.9 and History of hepatitis C Z86.19 [facility] [address], [place] [address] Nov, Right upper quadrant pain R10.11 ; History of hepatitis C Z86.19 and Low back pain M54.5 [facility] [id number] [place] [address] Oct, Trochanteric bursitis, right hip M70.61 [facility] [id number] [place] [address] Oct, [facility] [id number] [place] [address] Oct, [facility] [id number] [place] [address] Oct, Trochanteric bursitis of both hips M70.61 and Right sided sciatica M54.31 [facility] [id number] [place] [address] Oct, Trochanteric bursitis of both hips M70.61 [facility] [id number] [place] [address] Oct, RUQ abdominal pain R10.11 [facility] [id number] [place] [address] Oct, Sciatic leg pain M54.30 [facility] [id number] [place] [address] Oct, RUQ abdominal pain R10.11 [facility] [id number] [place] [address] 07 Oct, 2015 RUQ abdominal pain R10.11 ; History of hepatitis C Z86.19 and Trigger point with back pain M54.9 [facility] [id number] [place] [address] Sep, [facility] [id number] [place] [address] Sep, Right sided sciatica M54.31 [facility] [id number] [place] [address] Sep, Hypothyroidism, unspecified hypothyroidism type E03.9 and Vitamin D deficiency E55.9 [facility] [id number] [place] [address] Sep, Plantar fasciitis M72.2 and Porokeratosis Q82.8 [facility] [id number] [place] [address] Sep, Hypothyroidism, unspecified hypothyroidism type E03.9 ; Chronic pain syndrome G89.4 ; Polyneuropathy associated with underlying disease G63 and Vitamin D deficiency E55.9 [facility] [id number] [place] [address] August, [facility] [address] [address] Jul, Plantar fasciitis M72.2 [facility] [address] [address] Jul, Trochanteric bursitis, right hip M70.61 [facility] [id number] [place] [address] Jul, Hypothyroidism, unspecified hypothyroidism type E03.9 [facility] [id number] [place] [address] Jul, Hypothyroidism, unspecified hypothyroidism type E03.9 ; Chronic pain syndrome G89.4 and Polyneuropathy associated with underlying disease G63 [facility] [id number] [place] [address] Jun, Trochanteric bursitis of both hips M70.61 [facility] [id number] [place] [address] Jun, Vitamin D deficiency E55.9 ; Osteoporosis M81.0 ; Low back pain M54.5 and Plantar fasciitis M72.2 [facility] [id number] [place] [address] May, Vitamin D deficiency E55.9 and Hypothyroidism, unspecified hypothyroidism type E03.9 [facility] [id number] [place] [address] 23 May, 2015 Acute maxillary sinusitis J01.00 [facility] [id number] [place] [address] 18 May, 2015 Osteoporosis M81.0 and Hypothyroidism, unspecified hypothyroidism type E03.9 [facility] [id number] [place] [address] May, Osteoporosis M81.0 [facility] [id number] [place] [address] May, [facility] [id number] [place] [address] Apr, [facility] [id number] [place] [address] Apr, Trochanteric bursitis of both hips M70.61 [facility] [id number] [place] [address] Apr, Hypothyroidism, unspecified hypothyroidism type E03.9 [facility] [id number] [place] [address] Apr, Chronic pain syndrome G89.4 ; Bilateral low back pain with sciatica, sciatica laterality unspecified M54.40 ; Pain in right hip M25.551 ; Pain in left hip M25.552 ; Chronic prescription opiate use Z79.899 ; Primary insomnia F51.01 and Hypothyroidism, unspecified hypothyroidism type E03.9 [facility] [address], [place] [address] Mar, [facility] [id number] [place] [address] Feb, [facility] [id number] [place] [address] Feb, Chronic pain syndrome G89.4 and Major depression F32.9 [facility] [id number] [place] [address] 16 Feb, 2015 Fatigue R53.83 [facility] [address] [address] 13 Feb, 2015 History of fracture Z87.81 [facility] [id number] [place] [address] 12 Feb, 2015 Major depression, recurrent F33.9 and Generalized anxiety disorder F41.1 [facility] [id number] [place] [address] Feb, [facility] [address] [address] Jan, Hypothyroidism, unspecified hypothyroidism type E03.9 [facility] [id number] [place] [address] Jan, Abdominal pain R10.9 and Hypothyroidism, unspecified hypothyroidism type E03.9 [facility] [id number] [place] [address] Jan, Abdominal pain R10.9 [facility] [id number] [place] [address] Jan, Hypothyroidism, unspecified hypothyroidism type E03.9 [facility] [id number] [place] [address] Jan, [facility] [id number] [place] [address] Jan, 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 and Hypothyroidism, unspecified hypothyroidism type E03.9 [facility] [id number] [place] [address] Jan, 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 ; Abdominal pain R10.9 ; Dyspareunia N94.1 ; Encounter for immunization Z23 ; History of fracture Z87.81 ; Fatigue R53.83 ; Throat fullness R68.89 ; Bruises easily R23.8 ; Hot flashes N95.1 ; Depression F32.9 and Vaginal atrophy N95.2 [facility] [id number] [place] [address] Jan, Hypothyroidism, unspecified hypothyroidism type E03.9 [facility] [address] [address] Jan, Unspecified abdominal pain R10.9 ; Chronic obstructive pulmonary disease, unspecified COPD type J44.9 ; Allergic rhinitis, unspecified allergic rhinitis type J30.9 ; Chronic pain syndrome G89.4 ; Hypothyroidism, unspecified hypothyroidism type E03.9 ; Chest pain, unspecified chest pain type R07.9 and Plantar fasciitis M72.2 [facility] [address] [address] Jan, Trochanteric bursitis of both hips M70.61 [facility] [address] [address] Dec, [facility] [address] [address] Nov, [facility] [address] [place] [id number] [place] [address] Nov, [facility] [address] [address] Nov, Constipation 564.00 [facility] [address] [place] [id number] [place] [address] Oct, Chronic pain 338.29 and Hypothyroidism 244.9 [facility] [address] [address] Oct, [facility] [address] [place] [id number] [place] [address] Sep, [facility] [address] [address] Sep, [facility] [id number] [address] Sep, [facility] [id number] [address] Sep, [facility] [id number] [address] Sep, [facility] [address] [place] [id number] [place] [address] Sep, [facility] [id number] [place] [address] Sep, COPD exacerbation 491.21 ; Chronic pain 338.29 ; Hypothyroidism 244.9 and Pancytopenia 284.19 [facility] [id number] [address] August, [facility] [id number] [place] [address] Jul, [facility] [id number] [place] [address] Jul, [facility] [id number] [address] Jun, [facility] [id number], [place] [address] Jun, [facility] [id number] [place] [address] Jun, [facility] [id number] [place] [address] Jun, [facility] [id number] [place] [address] Jun, [facility] [address] [place] [id number] [address] May, [facility] [address] [place] [id number] [place] [address] May, 2014 [facility] [place] [facility] [address] [id number] [place] [address] May, 2014 [facility] [place] [facility] [address] [id number] [place] [address] May, 2014 [facility] [place] [facility] [address] [facility] [id number] [place] [address] May, 2014 [facility] [place] [facility] [address] [id number] [place] [address] May, 2014 [facility] [place] [facility] [address] [facility] [id number] [place] [address] May, 2014 [facility] [place] [facility] [address] [facility] [id number] [place] [address] May, 2014 [facility] [place] [facility] [address] [facility] [id number] [place] [address] May, 2014 [facility] [place] [facility] [address] [facility] [id number] [place] [address] May, [facility] [place] [facility] [address] [facility] [id number] [place] [address] May, [facility] [place] [facility] [address] [facility] [id number] [place] [address] May, [facility] [place] [facility] [address] [facility] [id number] [address] May, [facility] [place] [facility] [address] [facility] [id number] [place] [address] Apr, [facility] [place] [facility] [address] [facility] [id number] [place] [address] Apr, [facility] [place] [facility] [address] [facility] [id number] [place] [address] Apr, [facility] [place] [facility] [address] [facility] [id number][place] [address] Apr, [facility] [place] [facility] [address] [id number] [place] [address] Apr, [facility] [place] [facility] [address] [id number] [place] [address] Apr, [facility] [place] [facility] [address] [id number] [place] [address] Apr, [facility] [place] [facility] [address] [id number] [place] [address] Mar, [facility] [place] [facility] [address] [id number] [place] [address] Mar, [facility] [place] [facility] [address] [id number] [place] [address] Mar, [facility] [place] [facility] [address] [id number] [place] [address] Mar, [facility] [place] [facility] [address] [id number] [place] [address] Mar, [facility] [place] [facility] [address] [id number] [place] [address] Mar, [facility] [place] [facility] [address] [id number] [place] [address] Feb, [facility] [place] [facility] [address] [id number] [place] [address] Feb, [facility] [place] [facility] [address] [id number] [place] [address] Feb, [facility] [place] [facility] [address] [id number] [place] [address] Feb, [facility] [place] [facility] [address] [id number] [place] [address] Feb, [facility] [place] [facility] [address] [id number] [place] [address] Feb, [facility] [place] [facility] [address] [id number] [place] [address] Jan, [facility] [place] [facility] [address] [id number] [place] [address] Jan, [facility] [place] [facility] [address] [id number] [place] [address] Jan, [facility] [place] [facility] [address] [id number] [place] [address] Jan, [facility] [place] [facility] [address] [id number] [place] [address] Jan, [facility] [place] [facility] [address] [id number] [place] [address] Jan, [facility] [place] [facility] [address] [id number] [place] [address] Jan, [facility] [place] [facility] [address] [id number] [place] [address] Jan, [facility] [place] [facility] [address] [id number] [place] [address] Dec, [facility] [place] [facility] [address] [id number] [place] [address] 25 Dec, 2013 [facility] [place] [facility] [address] [id number] [place] [address] 23 Dec, 2013 [facility] [place] [facility] [address] [id number] [place] [address] 23 Dec, 2013 [facility] [place] [facility] [address] [id number] [place] [address] 13 Dec, 2013 [facility] [place] [facility] [address] [id number] [place] [address] 10 Dec, 2013 [facility] [place] [facility] [address] [id number] [place] [address] 10 Dec, 2013 [facility] [place] [facility] [address] [id number] [place] [address] Nov, [facility] [place] [facility] [address] [id number] [place] [address] Nov, [facility] [place] [facility] [address] [id number] [place] [address] Oct, [facility] [place] [facility] [address] [id number] [place] [address] Oct, [facility] [place] [facility] [address] [id number] [place] [address] Oct, [facility] [place] [facility] [address] [id number] [place] [address] Oct, [facility] [place] [facility] [address] [id number] [place] [address] Sep, [facility] [place] [facility] [address] [id number] [place] [address] Sep, [facility] [place] [facility] [address] [id number] [place] [address] Sep, [facility] [place] [facility] [address] [id number] [place] [address] Sep, [facility] [place] [facility] [address] [id number] [place] [address] Sep, [facility] [place] [facility] [address] [id number] [place] [address] Sep, [facility] [place] [facility] [address] [id number] [place] [address] Sep, [facility] [place] [facility] [address] [id number] [place] [address] Sep, [facility] [place] [facility] [address] [id number] [place] [address] August, [facility] [place] [facility] [address] [id number] [place] [address] August, [facility] [place] [facility] [address] [id number] [place] [address] August, [facility] [place] [facility] [address] [id number] [place] [address] August, [facility] [place] [facility] [address] [id number] [place] [address] Jul, [facility] [place] [facility] [address] [id number] [place] [address] Jul, [facility] [place] [facility] [address] [id number] [place] [address] Jul, [facility] [place] [facility] [address] [id number] [place] [address] 24 Jul, 2013 [facility] [place] [facility] [address] [id number] [place] [address] Jul, [facility] [place] [facility] [address] [id number] [place] [address] 16 Jul, 2013 [facility] [place] [facility] [address] [id number] [place] [address] Jul, [facility] [place] [facility] [address] [id number] [place] [address] Jul, [facility] [place] [facility] [address] [id number] [place] [address] Jun, [facility] [place] [facility] [address] [id number] [place] [address] Jun, [facility] [place] [facility] [address] [id number] [place] [address] Jun, [facility] [place] [facility] [address] [id number] [place] [address] Jun, [facility] [place] [facility] [address] [id number] [place] [address] Jun, [facility] [place] [facility] [address] [id number] [place] [address] Jun, [facility] [place] [facility] [address] [id number] [place] [address] Jun, [facility] [place] [facility] [address] [id number] [place] [address] Jun, [facility] [place] [facility] [address] [id number] [place] [address] May, [facility] [place] [facility] [address] [id number] [place] [address] May, [facility] [place] [facility] [address] [id number] [place] [address] Apr, [facility] [place] [facility] [address] [id number] [place] [address] Apr, [facility] [address] [id number] [place] [address] Mar, [facility] [place] [facility] [address] [id number] [place] [address] Mar, [facility] [place] [facility] [address] [id number] [place] [address] Mar, [facility] [place] [facility] [address] [id number] [place] [address] Mar, [facility] [place] [facility] [address] [id number] [place] [address] Mar, [facility] [place] [facility] [address] [id number] [place] [address] Mar, [facility] [place] [facility] [address] [id number] [place] [address] 17 Mar, 2013 [facility] [place] [facility] [address] [id number] [place] [address] Feb, [facility] [place] [facility] [address] [id number] [place] [address] Feb, [facility] [place] [facility] [address] [id number] [place] [address] Feb, [facility] [address] [id number] [place] [address] Feb, [facility] [place] [facility] [address] [id number] [place] [address] Feb, [facility] [place] [facility] [address] [id number] [place] [address] Feb, [facility] [place] [facility] [address] [id number] [place] [address] 26 Dec, 2012 [facility] [place] [facility] [address] [id number] [place] [address] 18 Dec, 2012 [facility] [place] [facility] [address] [id number] [place] [address] Dec, [facility] [place] [facility] [address] [id number] [place] [address] Dec, [facility] [place] [facility] [address] [id number] [place] [address] Dec, [facility] [place] [facility] [address] [id number] [place] [address] Nov, [facility] [place] [facility] [address] [id number] [place] [address] Nov, [facility] [place] [facility] [address] [id number] [place] [address] Oct, [facility] [place] [facility] [address] [id number] [place] [address] August, [facility] [place] [facility] [address] [id number] [place] [address] August, [facility] [place] [facility] [address] [id number] [place] [address] August, [facility] [place] [facility] [address] [id number] [place] [address] Jul, [facility] [place] [facility] [address] [id number] [place] [address] Jul, [facility] [address] [id number] [place] [address] 04 Jul, 2012 [facility] [address] [id number] [place] [address] 27 Jun, 2012 [facility] [address] [id number] [place] [address] 26 Jun, 2012 [facility] [address] [id number] [place] [address] Jun, [facility] [address] [id number] [place] [address] Jun, [facility] [address] [id number] [place] [address] Jun, [facility] [address] [id number] [place] [address] 15 Jun, 2012 [facility] [address] [id number] [place] [address] Jun, [facility] [address] [id number] [place] [address] May, [facility] [address] [id number] [place] [address] May, [facility] [address] [id number] [place] [address] May, [facility] [address] [id number] [place] [address] May, [facility] [address] [id number] [place] [address] Apr, [facility] [address] [id number] [place] [address] Apr, [facility] [address] [id number] [place] [address] Apr, [facility] [place] [facility] [address] [id number] [place] [address] Mar, [facility] [place] [facility] [address] [id number] [place] [address] Mar, [facility] [place] [facility] [address] [id number] [place] [address] Mar, [facility] [place] [facility] [address] [id number] [place] [address] Mar, [facility] [place] [facility] [address] [id number] [place] [address] Mar, [facility] [place] [facility] [address] [id number] [place] [address] Mar, [facility] [place] [facility] [address] [id number] [place] [address] Mar, [facility] [place] [facility] [address] [id number] [place] [address] Mar, [facility] [place] [facility] [address] [id number] [place] [address] Feb, [facility] [place] [facility] [address] [id number], [place] [address] Feb, [facility] [place] [facility] [address] [id number], [place] [address] Feb, [facility] [place] [facility] [address] [id number], [place] [address] Jan, [facility] [place] [facility] [address] [id number] [place] [address] Jan, [facility] [place] [facility] [address] [id number], [place] [address] Jan, [facility] [place] [facility] [address] [id number] [address] Jan, [facility] [place] [facility] [address] [id number] [place] [address] 18 Jan, 2012 [facility] [place] [facility] [address] [id number] [place] [address] 08 Jan, 2012 [facility] [place] [facility] [address] [id number] [place] [address] Jan, [facility] [place] [facility] [address] [id number] [place] [address] 27 Dec, 2011 [facility] [place] [facility] [address] [id number] [place] [address] 24 Dec, 2011 [facility] [place] [facility] [address] [id number] [place] [address] 10 Dec, 2011 [facility] [place] [facility] [address] [id number] [place] [address] Nov, [facility] [place] [facility] [address] [id number] [place] [address] Nov, [facility] [place] [facility] [address] [id number] [place] [address] Nov, [facility] [place] [facility] [address] [id number] [place] [address] Nov, [facility] [place] [facility] [address] [id number] [place] [address] Oct, [facility] [place] [facility] [address] [id number] [place] [address] Oct, [facility] [place] [facility] [address] [id number] [place] [address] Oct, [facility] [place] [facility] [address] [id number] [place] [address] Sep, [facility] [place] [facility] [address] [id number] [place] [address] Sep, [facility] [place] [facility] [address] [id number] [place] [address] Sep, [facility] [place] [facility] [address] [id number] [place] [address] Sep, [facility] [place] [facility] [address] [id number] [place] [address] Sep, [facility] [place] [facility] [address] [id number] [place] [address] Sep, [facility] [place] [facility] [address] [id number] [place] [address] August, [facility] [place] [facility] [address] [id number] [place] [address] Jul, [facility] [place] [facility] [address] [id number] [place] [address] Jul, [facility] [place] [facility] [address] [id number] [place] [address] Jul, [facility] [place] [facility] [address] [id number] [place] [address] Jul, [facility] [place] [facility] [address] [id number] [place] [address] Jul, [facility] [place] [facility] [address] [id number] [place] [address] 29 Jun, 2011 [facility] [place] [facility] [address] [id number] [place] [address] Jun, [facility] [place] [facility] [address] [id number] [place] [address] Jun, [facility] [place] [facility] [address] [id number] [place] [address] 15 Jun, 2011 [facility] [place] [facility] [address] [id number] [place] [address] Jun, [facility] [place] [facility] [address] [id number] [place] [address] May, [facility] [place] [facility] [address] [id number] [place] [address] May, [facility] [address] [id number] [place] [address] May, [facility] [place] [facility] [address] [id number] [place] [address] 06 May, 2011 [facility] [place] [facility] [address] [id number] [place] [address] May, [facility] [place] [facility] [address] [id number] [place] [address] May, [facility] [place] [facility] [address] [id number] [place] [address] May, [facility] [place] [facility] [address] [id number] [place] [address] Apr, [facility] [address] [id number] [place] [address] 29 Mar, 2011 [facility] [place] [facility] [address] [id number] [place] [address] Mar, [facility] [place] [facility] [address] [id number] [place] [address] Mar, [facility] [place] [facility] [address] [id number] [place] [address] Mar, [facility] [place] [facility] [address] [id number] [place] [address] 08 Mar, 2011 [facility] [place] [facility] [address] [id number] [place] [address] 23 Feb, 2011 [facility] [place] [facility] [address] [id number] [place] [address] 14 Feb, 2011 [facility] [place] [facility] [address] [id number] [place] [address] 14 Feb, 2011 [facility] [place] [facility] [address] [id number] [place] [address] 14 Feb, 2011 [facility] [place] [facility] [address] [id number] [place] [address] Feb, [facility] [place] [facility] [address] [id number] [place] [address] Feb, [facility] [place] [facility] [address] [id number] [place] [address] Feb, [facility] [place] [facility] [address] [id number] [place] [address] Jan, [facility] [place] [facility] [address] [id number] [place] [address] Dec, [facility] [place] [facility] [address] [id number] [place] [address] Oct, [facility] [place] [facility] [address] [id number] [place] [address] Jun, [facility] [place] [facility] [address] [id number] [place] [address] Mar, [facility] [place] [facility] [address] [id number] [place] [address] 23 Mar, 2010 [facility] [place] [facility] [address] [id number] [place] [address] 16 Mar, 2010 [facility] [place] [facility] [address] [id number] [place] [address] 16 Mar, 2010 [facility] [place] [facility] [address] [id number] [place] [address] 15 Mar, 2010 [facility] [place] [facility] [address] [id number] [place] [address] 10 Mar, 2010 [facility] [place] [facility] [address] [id number] [place] [address] 10 Mar, 2010 [facility] [place] [facility] [address] [id number] [place] [address] 05 Mar, 2010 [facility] [place] [facility] [address] [id number] [place] [address] Mar, [facility] [place] [facility] [address] [id number] [place] [address] Mar, [facility] [place] [facility] [address] [id number] [place] [address] Jan, [facility] [address] [id number] [place] [address] Jan, [facility] [place] [facility] [address] [id number] [place] [address] Jan, [facility] [address] [id number] [place] [address] Nov, [facility] [place] [facility] [address] [id number], [place] [address] Oct, [facility] [address] [id number] [place] [address] Mar, [facility] [place] [facility] [address] [id number], [place] [address] Mar, [facility] [address] [id number], [place] [address] Mar, [facility] [place] [facility] [address] [id number], [place] [address] Mar, [facility] [place] [facility] [address] [id number], [place] [address] 17 Dec, 2008 [facility] [place] [facility] [address] [id number], [place] [address] August, [facility] [place] [facility] [address] [id number], [place] [address] August, [facility] [place] [facility] [address] [facility] [id number], [place] [address] Jul, [facility] [place] [facility] [address] [id number], [place] [address] Jan, [facility] [place] [facility] [address] [facility] [id number] [place] [address] Jan, IMMUNIZATIONS No Known Immunizations SOCIAL HISTORY Never Assessed REASON FOR VISIT Controlled Medication Refill PLAN OF CARE VITAL SIGNS MEDICATIONS Medication Instructions Dosage Frequency Start Date End Date Duration Status Hydrocodone-Acetaminophen 10-325 MG Orally 2 times a day 1 tablet as needed 12h May, 28 days Active RESULTS No Results PROCEDURES [...]
--- OUTSIDE RECORDS SUMMARY | 2018-09-22 03:09 | XMS REPORT ---
Author Author FLORENTINEZEKIEL PUCKETT Organization [facility] Address [address] [place] [address] Care Team Providers Care Master Glazier Name Role Phone DANICA LERMAY Unavailable PROBLEMS Type Condition ICD9-CM Code UME27-TW Code Onset Dates Condition Status SNOMED Code Problem Chronic gastritis without bleeding, unspecified gastritis type K29.50 Active 4873219 Problem Vitamin D deficiency E55.9 Active 50310587 Problem Osteoporosis M81.0 Active 34480553 Problem Unspecified abdominal pain R10.9 Active 449521782 Problem Fibromyalgia M79.7 Active 79830287 Problem Chronic pain syndrome G89.4 Active 919715247 Problem Trigger point with back pain M54.9 Active 505916440 Problem Chronic tension-type headache, not intractable G44.229 Active 377905527 Problem RUQ abdominal pain R10.11 Active 283736633 Problem Pancytopenia D61.818 Active 481590230 Problem Right sided sciatica M54.31 Active 92291514 Problem Chronic prescription opiate use Z79.891 Active 154052943 Problem Drug induced constipation K59.03 Active 007195226728000 Problem Leukopenia, unspecified type D72.819 Active 79714526 Problem Atrial fibrillation, unspecified type I48.91 Active 78857286 Problem Allergic rhinitis, unspecified allergic rhinitis type J30.9 Active 13670641 Problem Chronic obstructive pulmonary disease, unspecified COPD type J44.9 Active 04236852 Problem Hypothyroidism, unspecified hypothyroidism type E03.9 Active 15260392 Problem Other constipation K59.09 Active 706353186 Problem Porokeratosis Q82.8 Active 676644671 Problem 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 Active 404075068 Problem Allergy to intravenous contrast Z91.041 Active 229014307 Problem Vaginal atrophy N95.2 Active 746457162 Problem Major depression, recurrent F33.9 Active 34807893 Problem History of hepatitis C Z86.19 Active 64058345001730 Problem Hot flashes N95.1 Active 033429670 Problem Plantar fasciitis M72.2 Active 685512139 Problem Polyneuropathy associated with underlying disease G63 Active 375493942 Problem Primary insomnia F51.01 Active 1730321 Problem Low back pain M54.5 Active 579054579 ALLERGIES No Information ENCOUNTERS Encounter Location Date Diagnosis [facility] [id number], [place] [address] Nov, [facility] [id number] [place] [address] Nov, [facility] [id number] [place] [address] Oct, [place] [id number] [place] [address] Sep, Chronic pain syndrome G89.4 [place] [id number] [place] [address] August, Somatic dysfunction of lumbar region M99.03 and Somatic dysfunction of pelvis region M99.05 [facility] [id number] [place] [address] August, Chronic pain syndrome G89.4 [facility] [id number] [place] [address] Jul, Trochanteric bursitis of left hip M70.62 and Trochanteric bursitis, right hip M70.61 [facility] [id number] [place] [address] Jul, [facility] [id number] [place] [address] Jul, Chronic pain syndrome G89.4 [facility] [id number] [place] [address] Jul, Hypothyroidism, unspecified hypothyroidism type E03.9 [facility] [id number] [place] [address] Jul, Hypothyroidism, unspecified hypothyroidism type E03.9 [facility] [id number] [place] [address] Jul, Chronic tension-type headache, not intractable G44.229 ; Atrial fibrillation, unspecified type I48.91 ; Chronic pain syndrome G89.4 ; Hypothyroidism, unspecified hypothyroidism type E03.9 ; Pancytopenia D61.818 ; History of hepatitis C Z86.19 ; Vaginal atrophy N95.2 ; RUQ abdominal pain R10.11 ; Chronic prescription opiate use Z79.891 ; Osteoporosis M81.0 and Screening for breast cancer Z12.31 [place] [id number] [place] [address] Jun, [place] [id number] [place] [address] May, [place] [id number] [place] [address] May, [facility] [id number] [place] [address] May, [facility] [id number] [place] [address] Apr, [facility] [id number] [place] [address] Apr, Hypothyroidism, unspecified hypothyroidism type E03.9 [facility] [id number] [place] [address] Apr, Hypothyroidism, unspecified hypothyroidism type E03.9 and Leukopenia, unspecified type D72.819 [place] [id number] [place] [address] Mar, [place] [id number] [place] [address] Mar, Leukopenia, unspecified type D72.819 [facility] [id number] [place] [address] Mar, Hypothyroidism, unspecified hypothyroidism type E03.9 and Low hemoglobin D64.9 [place] [address] [address] Mar, Hypothyroidism, unspecified hypothyroidism type E03.9 [place] [address] [address] Mar, Osteoporosis M81.0 ; Low hemoglobin D64.9 and Hypothyroidism, unspecified hypothyroidism type E03.[address] [address] Mar, Hypothyroidism, unspecified hypothyroidism type E03.9 ; Bilirubin in urine R82.2 and Pancytopenia D61.[address] [address] Feb, [facility] [address] [address] Feb, Cough R05 and Bronchitis J40 [facility] [address] [address] 14 Feb, 2017 Other viral agents as the cause of diseases classified elsewhere B97.89 and Acute upper respiratory infection, unspecified J06.[address] [address] Feb, Fibromyalgia M79.7 ; Chronic pain syndrome G89.4 ; Hypothyroidism, unspecified hypothyroidism type E03.9 ; Primary insomnia F51.01 ; Osteoporosis M81.0 ; Vision abnormalities H53.9 ; Pancytopenia D61.818 ; BMI 28.0-28.9,adult Z68.28 and Encounter for immunization Z23 [address] [address] Feb, Neuroma D36.10 and Capsulitis of right foot M77.[address] [address] Feb, [facility] [address] [address] Feb, Hypothyroidism, unspecified hypothyroidism type E03.9 [facility] [id number] [place] [address] Jan, [facility] [id number] [place] [address] Jan, Atrial fibrillation, unspecified type I48.91 [facility] [id number] [place] [address] Jan, [facility] [id number] [place] [address] Jan, Fibromyalgia M79.7 ; Atrial fibrillation, unspecified type I48.91 ; Pain of left hand M79.642 ; Pain in right hand M79.641 ; Chronic prescription opiate use Z79.891 ; Chronic pain syndrome G89.4 ; Elevated fasting glucose R73.01 and Hypothyroidism, unspecified hypothyroidism type E03.9 [facility] [address], [place] [address] Jan, [facility] [id number] [place] [address] Dec, Trochanteric bursitis of both hips M70.61 [facility] [id number] [place] [address] Dec, [facility] [id number] [place] [address] Dec, [facility] [id number] [place] [address] Nov, [facility] [id number] [place] [address] Nov, Unilateral headache R51 [facility] [id number] [place] [address] Nov, [facility] [id number] [place] [address] Oct, Unilateral headache R51 ; 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 and Allergy to intravenous contrast Z91.041 [facility] [id number] [place] [address] Oct, [facility] [id number] [place] [address] Oct, [facility] [address] [address] Sep, Hypothyroidism, unspecified hypothyroidism type E03.9 [place] [address] [address] Sep, Hypothyroidism, unspecified hypothyroidism type E03.9 and Bilirubin in urine R82.2 [place] [id number] [place] [address] Sep, Trochanteric bursitis of both hips M70.61 [place] [id number] [place] [address] Sep, Hypothyroidism, unspecified hypothyroidism type E03.9 ; Dysuria R30.0 ; Chronic tension-type headache, not intractable G44.229 and Drug induced constipation K59.03 [place] [id number] [place] [address] Sep, [facility] [id number] [place] [address] Sep, [facility] [id number] [place] [address] August, [facility] [id number] [place] [address] Jul, [facility] [id number] [place] [address] Jul, Trochanteric bursitis of right hip M70.61 [place] [id number] [place] [address] Jul, Hypothyroidism, unspecified hypothyroidism type E03.9 [facility] [address] [address] Jul, Fibromyalgia M79.7 ; Chronic pain syndrome G89.4 ; Hypothyroidism, unspecified hypothyroidism type E03.9 and Other constipation K59.09 [facility] [address] [address] Jun, Swollen tonsil J35.1 and Strep throat J02.0 [place] [address] [address] Jun, [place] [address] [address] Jun, Acute maxillary sinusitis J01.00 [place] [address] [address] Jun, Hypothyroidism, unspecified hypothyroidism type E03.9 [place] [id number] [place] [address] Jun, Chronic pain syndrome G89.4 ; Fibromyalgia M79.7 ; Hypothyroidism, unspecified hypothyroidism type E03.9 and Chronic prescription opiate use Z79.891 [place] [id number] [place] [address] May, [place] [address] [address] Apr, Hypothyroidism, unspecified hypothyroidism type E03.9 [place] [id number] [place] [address] Apr, [place] [address] [address] Apr, Lipid screening Z13.220 and Hypothyroidism, unspecified hypothyroidism type E03.9 [place] [address] [address] Apr, [place] [id number] [place] [address] Mar, Trochanteric bursitis of both hips M70.61 [place] [id number] [place] [address] Mar, [place] [id number] [place] [address] Mar, Plantar fasciitis M72.2 and Porokeratosis Q82.8 [place] [id number] [place] [address] Feb, Lipid screening Z13.220 ; Vitamin D deficiency E55.9 and Hypothyroidism, unspecified hypothyroidism type E03.9 [place] [id number] [place] [address] 16 Feb, 2016 Chronic pain syndrome G89.4 ; Hypothyroidism, unspecified hypothyroidism type E03.9 ; Pancytopenia D61.818 ; Vaginal atrophy N95.2 ; Chronic gastritis without bleeding, unspecified gastritis type K29.50 ; Vitamin D deficiency E55.9 ; Chronic prescription opiate use Z79.891 ; Adverse effect of other opioids, initial encounter T40.2X5A ; Drug induced constipation K59.03 ; Lipid screening Z13.220 and Encounter for immunization Z23 [place] [id number] [place] [address] Feb, [place] [id number] [place] [address] Feb, Ingrown toenail L60.0 [place] [id number] [place] [address] Jan, [place] [address] [address] Jan, Trochanteric bursitis of both hips M70.61 [place] [id number] [place] [address] Jan, [facility] [address], [place] [address] Jan, [facility] [id number] [place] [address] Jan, [facility] [address], [place] [address] Jan, Right sided sciatica M54.31 [facility] [id number] [place] [address] 23 Dec, 2015 Onychomycosis B35.1 [facility] [id number] [place] [address] 22 Dec, 2015 [facility] [id number] [place] [address] Dec, [facility] [id number] [place] [address] Dec, [facility] [id number] [place] [address] Dec, Osteoarthritis of right hip, unspecified osteoarthritis type M16.11 and Bursitis of right hip M70.71 [facility] [address], [place] [address] Nov, [facility] [address], [place] [address] Nov, [facility] [address], [place] [address] Nov, [facility] [id number] [place] [address] Nov, Hypothyroidism, unspecified hypothyroidism type E03.9 ; Vitamin D deficiency E55.9 and History of hepatitis C Z86.19 [facility] [address], [place] [address] Nov, Right upper quadrant pain R10.11 ; History of hepatitis C Z86.19 and Low back pain M54.5 [facility] [id number] [place] [address] Oct, Trochanteric bursitis, right hip M70.61 [facility] [id number] [place] [address] Oct, [facility] [id number] [place] [address] Oct, [facility] [id number] [place] [address] Oct, Trochanteric bursitis of both hips M70.61 and Right sided sciatica M54.31 [place] [id number] [place] [address] Oct, Trochanteric bursitis of both hips M70.61 [place] [id number] [place] [address] Oct, RUQ abdominal pain R10.11 [place] [id number] [place] [address] Oct, Sciatic leg pain M54.30 [place] [id number] [place] [address] Oct, RUQ abdominal pain R10.11 [place] [id number] [place] [address] 07 Oct, 2015 RUQ abdominal pain R10.11 ; History of hepatitis C Z86.19 and Trigger point with back pain M54.9 [place] [id number] [place] [address] Sep, [place] [id number] [place] [address] Sep, Right sided sciatica M54.31 [place] [id number] [place] [address] Sep, Hypothyroidism, unspecified hypothyroidism type E03.9 and Vitamin D deficiency E55.9 [place] [id number] [place] [address] Sep, Plantar fasciitis M72.2 and Porokeratosis Q82.8 [place] [id number] [place] [address] Sep, Hypothyroidism, unspecified hypothyroidism type E03.9 ; Chronic pain syndrome G89.4 ; Vitamin D deficiency E55.9 and Polyneuropathy associated with underlying disease G63 [place] [id number] [place] [address] August, [place] [address] [address] Jul, Plantar fasciitis M72.2 [place] [address] [address] Jul, Trochanteric bursitis, right hip M70.61 [place] [id number] [place] [address] Jul, Hypothyroidism, unspecified hypothyroidism type E03.9 [place] [id number] [place] [address] Jul, Hypothyroidism, unspecified hypothyroidism type E03.9 ; Chronic pain syndrome G89.4 and Polyneuropathy associated with underlying disease G63 [place] [id number] [place] [address] Jun, Trochanteric bursitis of both hips M70.61 [place] [id number] [place] [address] Jun, Vitamin D deficiency E55.9 ; Osteoporosis M81.0 ; Low back pain M54.5 and Plantar fasciitis M72.2 [facility] [id number] [place] [address] May, Vitamin D deficiency E55.9 and Hypothyroidism, unspecified hypothyroidism type E03.9 [facility] [id number] [place] [address] 23 May, 2015 Acute maxillary sinusitis J01.00 [facility] [id number] [place] [address] 18 May, 2015 Osteoporosis M81.0 and Hypothyroidism, unspecified hypothyroidism type E03.9 [facility] [id number] [place] [address] May, Osteoporosis M81.0 [facility] [id number] [place] [address] May, [facility] [id number] [place] [address] Apr, [facility] [id number] [place] [address] Apr, Trochanteric bursitis of both hips M70.61 [facility] [id number] [place] [address] Apr, Hypothyroidism, unspecified hypothyroidism type E03.9 [place] [id number] [place] [address] Apr, Chronic pain syndrome G89.4 ; Bilateral low back pain with sciatica, sciatica laterality unspecified M54.40 ; Pain in right hip M25.551 ; Pain in left hip M25.552 ; Chronic prescription opiate use Z79.899 ; Primary insomnia F51.01 and Hypothyroidism, unspecified hypothyroidism type E03.9 [facility] [address], [place] [address] Mar, [facility] [id number] [place] [address] Feb, [facility] [id number] [place] [address] Feb, Chronic pain syndrome G89.4 and Major depression F32.9 [place] [id number] [place] [address] 16 Feb, 2015 Fatigue R53.83 [place] [address] [address] 13 Feb, 2015 History of fracture Z87.81 [place] [id number] [place] [address] 12 Feb, 2015 Major depression, recurrent F33.9 and Generalized anxiety disorder F41.1 [place] [id number] [place] [address] Feb, [place] [address] [address] Jan, Hypothyroidism, unspecified hypothyroidism type E03.9 [place] [id number] [place] [address] Jan, Abdominal pain R10.9 and Hypothyroidism, unspecified hypothyroidism type E03.9 [place] [id number] [place] [address] Jan, Abdominal pain R10.9 [place] [id number] [place] [address] Jan, Hypothyroidism, unspecified hypothyroidism type E03.9 [place] [id number] [place] [address] Jan, [place] [id number] [place] [address] Jan, 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) w/o 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 Z01.419 and Hypothyroidism, unspecified hypothyroidism type E03.9 [place] [id number] [place] [address] Jan, 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) w/o 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 Z01.419 ; Abdominal pain R10.9 ; Dyspareunia N94.1 ; Encounter for immunization Z23 ; History of fracture Z87.81 ; Fatigue R53.83 ; Throat fullness R68.89 ; Bruises easily R23.8 ; Hot flashes N95.1 ; Depression F32.9 and Vaginal atrophy N95.2 [facility] [id number] [place] [address] Jan, Hypothyroidism, unspecified hypothyroidism type E03.9 [facility] [address] [address] Jan, Unspecified abdominal pain R10.9 ; Chronic obstructive pulmonary disease, unspecified COPD type J44.9 ; Allergic rhinitis, unspecified allergic rhinitis type J30.9 ; Chronic pain syndrome G89.4 ; Hypothyroidism, unspecified hypothyroidism type E03.9 ; Chest pain, unspecified chest pain type R07.9 and Plantar fasciitis M72.2 [place] [address] [address] Jan, Trochanteric bursitis of both hips M70.61 [facility] [address] [address] Dec, [facility] [address] [address] Nov, [facility] [id number] [place] [address] Nov, [facility] [address] [address] Nov, Constipation 564.00 [facility] [address] [id number] [place] [id number] Oct, Chronic pain 338.29 and Hypothyroidism 244.9 [facility] [address] [address] Oct, [facility] [id number] [place] [phone] Sep, [facility] [address] [address] Sep, [facility] [id number] [address] Sep, [facility] [id number] [address] Sep, [facility] [id number] [place] [address] Sep, [facility] [id number] [place] [phone] Sep, [facility] [id number] [place] [phone] Sep, COPD exacerbation 491.21 ; Chronic pain 338.29 ; Hypothyroidism 244.9 and Pancytopenia 284.19 [facility] [id number] [address] August, [facility] [id number] [place] [address] Jul, [facility] [id number] [place] [address] Jul, [facility] [address] [id number] [address] Jun, [facility] [id number], [place] [address] Jun, [facility] [id number], [place] [address] Jun, [facility] [id number], [place] [address] Jun, [facility] [id number] [address] Jun, [facility] [id number] [address] May, [facility] [id number] [place] [address] May, 2014 [facility] [place] [facility] [address] [id number] [place] [address] May, 2014 [facility] [place] [facility] [address] [id number] [place] [address] May, 2014 [facility] [place] [facility] [address] [facility] [id number] [place] [address] May, 2014 [facility] [place] [facility] [address] [id number] [place] [address] May, 2014 [facility] [place] [facility] [address] [facility] [id number] [place] [address] May, 2014 [facility] [place] [facility] [address] [facility] [id number] [place] [address] May, 2014 [facility] [place] [facility] [address] [facility] [id number] [place] [address] May, 2014 [facility] [place] [facility] [address] [facility] [id number] [place] [address] May, [facility] [place] [facility] [address] [facility] [id number] [place] [address] May, [facility] [place] [facility] [address] [facility] [id number] [place] [address] May, [facility] [place] [facility] [address] [facility] [id number], [place] [address] May, [facility] [place] [facility] [address] [facility] [id number] [place] [address] Apr, [facility] [place] [facility] [address] [facility] [id number] [place] [address] Apr, [facility] [place] [facility] [address] [facility] [id number] [place] [address] Apr, [facility] [place] [facility] [address] [facility] [id number], [place] [address] Apr, [facility] [place] [facility] [address] [id number] [place] [address] Apr, [facility] [place] [facility] [address] [id number] [place] [address] Apr, [facility] [place] [facility] [address] [id number] [place] [address] Apr, [facility] [place] [facility] [address] [id number] [place] [address] Mar, [facility] [place] [facility] [address] [id number] [place] [address] Mar, [facility] [place] [facility] [address] [id number] [place] [address] Mar, [facility] [place] [facility] [address] [id number] [place] [address] Mar, [facility] [place] [facility] [address] [id number] [place] [address] Mar, [facility] [place] [facility] [address] [id number] [place] [address] Mar, [facility] [place] [facility] [address] [id number] [place] [address] Feb, [facility] [place] [facility] [address] [id number] [place] [address] Feb, [facility] [place] [facility] [address] [id number] [place] [address] Feb, [facility] [place] [facility] [address] [id number] [place] [address] Feb, [facility] [place] [facility] [address] [id number] [place] [address] Feb, [facility] [place] [facility] [address] [id number] [place] [address] Feb, [facility] [place] [facility] [address] [id number] [place] [address] Jan, [facility] [place] [facility] [address] [id number] [place] [address] Jan, [facility] [place] [facility] [address] [id number] [place] [address] Jan, [facility] [place] [facility] [address] [id number] [place] [address] Jan, [facility] [place] [facility] [address] [id number] [place] [address] Jan, [facility] [place] [facility] [address] [id number] [place] [address] Jan, [facility] [place] [facility] [address] [id number] [place] [address] Jan, [facility] [place] [facility] [address] [id number] [place] [address] Jan, [facility] [place] [facility] [address] [id number] [place] [address] Dec, [facility] [place] [facility] [address] [id number] [place] [address] 25 Dec, 2013 [facility] [place] [facility] [address] [id number] [place] [address] 23 Dec, 2013 [facility] [place] [facility] [address] [id number] [place] [address] 23 Dec, 2013 [facility] [place] [facility] [address] [id number] [place] [address] 13 Dec, 2013 [facility] [place] [facility] [address] [id number] [place] [address] 10 Dec, 2013 [facility] [place] [facility] [address] [id number] [place] [address] 10 Dec, 2013 [facility] [place] [facility] [address] [id number] [place] [address] Nov, [facility] [place] [facility] [address] [id number] [place] [address] Nov, [facility] [place] [facility] [address] [id number] [place] [address] Oct, [facility] [place] [facility] [address] [id number] [place] [address] Oct, [facility] [place] [facility] [address] [id number] [place] [address] Oct, [facility] [place] [facility] [address] [id number] [place] [address] Oct, [facility] [place] [facility] [address] [id number] [place] [address] Sep, [facility] [place] [facility] [address] [id number] [place] [address] Sep, [facility] [place] [facility] [address] [id number] [place] [address] Sep, [facility] [place] [facility] [address] [id number] [place] [address] Sep, [facility] [place] [facility] [address] [id number] [place] [address] Sep, [facility] [place] [facility] [address] [id number] [place] [address] Sep, [facility] [place] [facility] [address] [id number] [place] [address] Sep, [facility] [place] [facility] [address] [id number] [place] [address] Sep, [facility] [place] [facility] [address] [id number] [place] [address] August, [facility] [place] [facility] [address] [id number] [place] [address] August, [facility] [place] [facility] [address] [id number] [place] [address] August, [facility] [place] [facility] [address] [id number] [place] [address] August, [facility] [place] [facility] [address] [id number] [place] [address] Jul, [facility] [place] [facility] [address] [id number] [place] [address] Jul, [facility] [place] [facility] [address] [id number] [place] [address] Jul, [facility] [place] [facility] [address] [id number] [place] [address] 24 Jul, 2013 [facility] [place] [facility] [address] [id number] [place] [address] Jul, [facility] [place] [facility] [address] [id number] [place] [address] 16 Jul, 2013 [facility] [place] [facility] [address] [id number] [place] [address] Jul, [facility] [place] [facility] [address] [id number] [place] [address] Jul, [facility] [place] [facility] [address] [id number] [place] [address] Jun, [facility] [place] [facility] [address] [id number] [place] [address] Jun, [facility] [place] [facility] [address] [id number] [place] [address] Jun, [facility] [place] [facility] [address] [id number] [place] [address] Jun, [facility] [place] [facility] [address] [id number] [place] [address] Jun, [facility] [place] [facility] [address] [id number] [place] [address] Jun, [facility] [place] [facility] [address] [id number] [place] [address] Jun, [facility] [place] [facility] [address] [id number] [place] [address] Jun, [facility] [place] [facility] [address] [id number] [place] [address] May, [facility] [place] [facility] [address] [id number] [place] [address] May, [facility] [place] [facility] [address] [id number] [place] [address] Apr, [facility] [place] [facility] [address] [id number] [place] [address] Apr, [facility] [address] [id number] [place] [address] Mar, [facility] [place] [facility] [address] [id number] [place] [address] Mar, [facility] [place] [facility] [address] [id number] [place] [address] Mar, [facility] [place] [facility] [address] [id number] [place] [address] Mar, [facility] [place] [facility] [address] [id number] [place] [address] Mar, [facility] [place] [facility] [address] [id number] [place] [address] Mar, [facility] [place] [facility] [address] [id number] [place] [address] 17 Mar, 2013 [facility] [place] [facility] [address] [id number] [place] [address] Feb, [facility] [place] [facility] [address] [id number] [place] [address] Feb, [facility] [place] [facility] [address] [id number] [place] [address] Feb, [facility] [address] [id number] [place] [address] Feb, [facility] [place] [facility] [address] [id number] [place] [address] Feb, [facility] [place] [facility] [address] [id number] [place] [address] Feb, [facility] [place] [facility] [address] [id number] [place] [address] 26 Dec, 2012 [facility] [place] [facility] [address] [id number] [place] [address] 18 Dec, 2012 [facility] [place] [facility] [address] [id number] [place] [address] Dec, [facility] [place] [facility] [address] [id number] [place] [address] Dec, [facility] [place] [facility] [address] [id number] [place] [address] Dec, [facility] [place] [facility] [address] [id number] [place] [address] Nov, [facility] [place] [facility] [address] [id number] [place] [address] Nov, [facility] [place] [facility] [address] [id number] [place] [address] Oct, [facility] [place] [facility] [address] [id number] [place] [address] August, [facility] [place] [facility] [address] [id number] [place] [address] August, [facility] [place] [facility] [address] [id number] [place] [address] August, [facility] [place] [facility] [address] [id number] [place] [address] Jul, [facility] [place] [facility] [address] [id number] [place] [address] Jul, [facility] [address] [id number] [place] [address] 04 Jul, 2012 [facility] [address] [id number] [place] [address] 27 Jun, 2012 [facility] [address] [id number] [place] [address] 26 Jun, 2012 [facility] [address] [id number] [place] [address] Jun, [facility] [address] [id number] [place] [address] Jun, [facility] [address] [id number] [place] [address] Jun, [facility] [address] [id number] [place] [address] 15 Jun, 2012 [facility] [address] [id number] [place] [address] Jun, [facility] [address] [id number] [place] [address] May, [facility] [address] [id number] [place] [address] May, [facility] [address] [id number] [place] [address] May, [facility] [address] [id number] [place] [address] May, [facility] [address] [id number] [place] [address] Apr, [facility] [address] [id number] [place] [address] Apr, [facility] [address] [id number] [place] [address] Apr, [facility] [place] [facility] [address] [id number] [place] [address] Mar, [facility] [place] [facility] [address] [id number] [place] [address] Mar, [facility] [place] [facility] [address] [id number] [place] [address] Mar, [facility] [place] [facility] [address] [id number] [place] [address] Mar, [facility] [place] [facility] [address] [id number] [place] [address] Mar, [facility] [place] [facility] [address] [id number] [place] [address] Mar, [facility] [place] [facility] [address] [id number] [place] [address] Mar, [facility] [place] [facility] [address] [id number] [place] [address] Mar, [facility] [place] [facility] [address] [id number] [place] [address] Feb, [facility] [place] [facility] [address] [id number] [address] Feb, [facility] [place] [facility] [address] [id number], [place] [address] Feb, [facility] [place] [facility] [address] [id number], [place] [address] Jan, [facility] [place] [facility] [address] [id number] [place] [address] Jan, [facility] [place] [facility] [address] [id number], [place] [address] Jan, [facility] [place] [facility] [address] [id number], [place] [address] Jan, [facility] [place] [facility] [address] [id number] [place] [address] 18 Jan, 2012 [facility] [place] [facility] [address] [id number] [place] [address] 08 Jan, 2012 [facility] [place] [facility] [address] [id number] [place] [address] Jan, [facility] [place] [facility] [address] [id number] [place] [address] 27 Dec, 2011 [facility] [place] [facility] [address] [id number] [place] [address] 24 Dec, 2011 [facility] [place] [facility] [address] [id number] [place] [address] 10 Dec, 2011 [facility] [place] [facility] [address] [id number] [place] [address] Nov, [facility] [place] [facility] [address] [id number] [place] [address] Nov, [facility] [place] [facility] [address] [id number] [place] [address] Nov, [facility] [place] [facility] [address] [id number] [place] [address] Nov, [facility] [place] [facility] [address] [id number] [place] [address] Oct, [facility] [place] [facility] [address] [id number] [place] [address] Oct, [facility] [place] [facility] [address] [id number] [place] [address] Oct, [facility] [place] [facility] [address] [id number] [place] [address] Sep, [facility] [place] [facility] [address] [id number] [place] [address] Sep, [facility] [place] [facility] [address] [id number] [place] [address] Sep, [facility] [place] [facility] [address] [id number] [place] [address] Sep, [facility] [place] [facility] [address] [id number] [place] [address] Sep, [facility] [place] [facility] [address] [id number] [place] [address] Sep, [facility] [place] [facility] [address] [id number] [place] [address] August, [facility] [place] [facility] [address] [id number] [place] [address] Jul, [facility] [place] [facility] [address] [id number] [place] [address] Jul, [facility] [place] [facility] [address] [id number] [place] [address] Jul, [facility] [place] [facility] [address] [id number] [place] [address] Jul, [facility] [place] [facility] [address] [id number] [place] [address] Jul, [facility] [place] [facility] [address] [id number] [place] [address] 29 Jun, 2011 [facility] [place] [facility] [address] [id number] [place] [address] Jun, [facility] [place] [facility] [address] [id number] [place] [address] Jun, [facility] [place] [facility] [address] [id number] [place] [address] 15 Jun, 2011 [facility] [place] [facility] [address] [id number] [place] [address] Jun, [facility] [place] [facility] [address] [id number] [place] [address] May, [facility] [place] [facility] [address] [id number] [place] [address] May, [facility] [address] [id number] [place] [address] May, [facility] [place] [facility] [address] [id number] [place] [address] 06 May, 2011 [facility] [place] [facility] [address] [id number] [place] [address] May, [facility] [place] [facility] [address] [id number] [place] [address] May, [facility] [place] [facility] [address] [id number] [place] [address] May, [facility] [place] [facility] [address] [id number] [place] [address] Apr, [facility] [address] [id number] [place] [address] 29 Mar, 2011 [facility] [place] [facility] [address] [id number] [place] [address] Mar, [facility] [place] [facility] [address] [id number] [place] [address] Mar, [facility] [place] [facility] [address] [id number] [place] [address] Mar, [facility] [place] [facility] [address] [id number] [place] [address] 08 Mar, 2011 [facility] [place] [facility] [address] [id number] [place] [address] 23 Feb, 2011 [facility] [place] [facility] [address] [id number] [place] [address] 14 Feb, 2011 [facility] [place] [facility] [address] [id number] [place] [address] 14 Feb, 2011 [facility] [place] [facility] [address] [id number] [place] [address] 14 Feb, 2011 [facility] [place] [facility] [address] [id number] [place] [address] Feb, [facility] [place] [facility] [address] [id number] [place] [address] Feb, [facility] [place] [facility] [address] [id number] [place] [address] Feb, [facility] [place] [facility] [address] [id number] [place] [address] Jan, [facility] [place] [facility] [address] [id number] [place] [address] Dec, [facility] [place] [facility] [address] [id number] [place] [address] Oct, [facility] [place] [facility] [address] [id number] [place] [address] Jun, [facility] [place] [facility] [address] [id number] [place] [address] Mar, [facility] [place] [facility] [address] [id number] [place] [address] 23 Mar, 2010 [facility] [place] [facility] [address] [id number] [place] [address] 16 Mar, 2010 [facility] [place] [facility] [address] [id number] [place] [address] 16 Mar, 2010 [facility] [place] [facility] [address] [id number] [place] [address] 15 Mar, 2010 [facility] [place] [facility] [address] [id number] [place] [address] 10 Mar, 2010 [facility] [place] [facility] [address] [id number] [place] [address] 10 Mar, 2010 [facility] [place] [facility] [address] [id number] [place] [address] 05 Mar, 2010 [facility] [place] [facility] [address] [id number] [place] [address] Mar, [facility] [place] [facility] [address] [id number] [place] [address] Mar, [facility] [place] [facility] [address] [id number] [place] [address] Jan, [facility] [address] [id number] [place] [address] Jan, [facility] [place] [facility] [address] [id number] [place] [address] Jan, [facility] [address] [id number] [place] [address] Nov, [facility] [place] [facility] [address] [id number], [place] [address] Oct, [facility] [address] [id number] [place] [address] Mar, [facility] [place] [facility] [address] [id number], [place] [address] Mar, [facility] [address] [id number], [place] [address] Mar, [facility] [place] [facility] [address] [id number], [place] [address] Mar, [facility] [place] [facility] [address] [id number], [place] [address] 17 Dec, 2008 [facility] [place] [facility] [address] [id number], [place] [address] August, [facility] [place] [facility] [address] [id number], [place] [address] August, [facility] [place] [facility] [address] [facility] [id number], [place] [address] Jul, [facility] [place] [facility] [address] [id number], [place] [address] Jan, [facility] [place] [facility] [address] [facility] [id number] [place] [address] Jan, IMMUNIZATIONS No Known Immunizations SOCIAL HISTORY Never Assessed REASON FOR VISIT PLAN OF CARE VITAL SIGNS MEDICATIONS Unknown [...]
--- OUTSIDE RECORDS SUMMARY | 2018-09-22 03:10 | XMS REPORT ---
Author Author FLORENTINEZEKIEL PUCKETT Organization [facility] Address [address] [place] [address] Care Team Providers Care Therapeutic Mentor Name Role Phone EZEKIEL LERMA Unavailable PROBLEMS Type Condition ICD9-CM Code TYM33-LT Code Onset Dates Condition Status SNOMED Code Problem Chronic gastritis without bleeding, unspecified gastritis type K29.50 Active 4362033 Problem Vitamin D deficiency E55.9 Active 24273247 Problem Osteoporosis M81.0 Active 06820442 Problem Unspecified abdominal pain R10.9 Active 889383625 Problem Fibromyalgia M79.7 Active 50226628 Problem Polyneuropathy associated with underlying disease G63 Active 225350256 Problem Chronic pain syndrome G89.4 Active 364643353 Problem Trigger point with back pain M54.9 Active 935917875 Problem Chronic tension-type headache, not intractable G44.229 Active 103379941 Problem RUQ abdominal pain R10.11 Active 524062777 Problem Drug induced constipation K59.03 Active 152544197528346 Problem Right sided sciatica M54.31 Active 41518738 Problem Atrial fibrillation, unspecified type I48.91 Active 76921738 Problem 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 Active 256863897 Problem Chronic obstructive pulmonary disease, unspecified COPD type J44.9 Active 93137511 Problem Hypothyroidism, unspecified hypothyroidism type E03.9 Active 14091987 Problem Pancytopenia D61.818 Active 289461823 Problem Porokeratosis Q82.8 Active 190193883 Problem Chronic prescription opiate use Z79.891 Active 396369370 Problem Allergy to intravenous contrast Z91.041 Active 520360037 Problem Other constipation K59.09 Active 256316059 Problem Hot flashes N95.1 Active 360307311 Problem Vaginal atrophy N95.2 Active 754867239 Problem Allergic rhinitis, unspecified allergic rhinitis type J30.9 Active 37848118 Problem History of hepatitis C Z86.19 Active 08096901717336 Problem Low back pain M54.5 Active 188819429 Problem Plantar fasciitis M72.2 Active 532873408 Problem Major depression, recurrent F33.9 Active 56428396 Problem Primary insomnia F51.01 Active 2035966 ALLERGIES No Information SOCIAL HISTORY Never Assessed PLAN OF CARE VITAL SIGNS MEDICATIONS Medication Instructions Dosage Frequency Start Date End Date Duration Status Hydrocodone-Acetaminophen 10-325 MG Orally 2 times a day 1 tablet as needed 12h 16 Feb, 2016 28 days Active RESULTS No Results PROCEDURES No Known procedures IMMUNIZATIONS No Known Immunizations MEDICAL (GENERAL) HISTORY Type Description Date Medical [...]
--- OUTSIDE RECORDS SUMMARY | 2018-09-22 03:11 | XMS REPORT ---
Author Author FLORENTINEZEKIEL PUCKETT Organization [facility] Address [address] [place] [address] Care Team Providers Care Pharmacy Salesperson Name Role Phone EZEKIEL LERMA Unavailable PROBLEMS Type Condition ICD9-CM Code MDI94-SE Code Onset Dates Condition Status SNOMED Code Problem Chronic gastritis without bleeding, unspecified gastritis type K29.50 Active 3851744 Problem Vitamin D deficiency E55.9 Active 10681449 Problem Osteoporosis M81.0 Active 47310296 Problem Unspecified abdominal pain R10.9 Active 977682737 Problem Fibromyalgia M79.7 Active 17587046 Problem Polyneuropathy associated with underlying disease G63 Active 762075049 Problem Chronic pain syndrome G89.4 Active 150594175 Problem Trigger point with back pain M54.9 Active 902628249 Problem Chronic tension-type headache, not intractable G44.229 Active 424875827 Problem RUQ abdominal pain R10.11 Active 597930529 Problem Drug induced constipation K59.03 Active 799523406625421 Problem Right sided sciatica M54.31 Active 67595314 Problem Atrial fibrillation, unspecified type I48.91 Active 46867965 Problem 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 Active 520452878 Problem Chronic obstructive pulmonary disease, unspecified COPD type J44.9 Active 05127088 Problem Hypothyroidism, unspecified hypothyroidism type E03.9 Active 18903377 Problem Pancytopenia D61.818 Active 041843695 Problem Porokeratosis Q82.8 Active 683936590 Problem Chronic prescription opiate use Z79.891 Active 986755204 Problem Allergy to intravenous contrast Z91.041 Active 092813578 Problem Other constipation K59.09 Active 626146772 Problem Hot flashes N95.1 Active 646445112 Problem Vaginal atrophy N95.2 Active 155709621 Problem Allergic rhinitis, unspecified allergic rhinitis type J30.9 Active 79948941 Problem History of hepatitis C Z86.19 Active 64854639897029 Problem Low back pain M54.5 Active 969831838 Problem Plantar fasciitis M72.2 Active 419236513 Problem Major depression, recurrent F33.9 Active 55971540 Problem Primary insomnia F51.01 Active 3055191 ALLERGIES No Information SOCIAL HISTORY Never Assessed PLAN OF CARE VITAL SIGNS MEDICATIONS Medication Instructions Dosage Frequency Start Date End Date Duration Status Hydrocodone-Acetaminophen 10-325 MG Orally every 4-6 hrs 1 tablet as needed Feb, 28 days Active RESULTS No Results PROCEDURES No Known procedures IMMUNIZATIONS No Known Immunizations MEDICAL (GENERAL) HISTORY Type Description Date Medical History hypertension Medical History asthma Medical History hepatitis C Medical History osteoporosis [...]
--- OUTSIDE RECORDS SUMMARY | 2018-09-22 03:11 | XMS REPORT ---
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 Name Role Phone DANICA LERMAY Unavailable PROBLEMS Type Condition ICD9-CM Code JJT27-XN Code Onset Dates Condition Status SNOMED Code Problem Chronic gastritis without bleeding, unspecified gastritis type K29.50 Active 7185344 Problem Vitamin D deficiency E55.9 Active 76534619 Problem Osteoporosis M81.0 Active 02742893 Problem Unspecified abdominal pain R10.9 Active 231022553 Problem Fibromyalgia M79.7 Active 42069292 Problem Chronic pain syndrome G89.4 Active 887461668 Problem Trigger point with back pain M54.9 Active 624383379 Problem Chronic tension-type headache, not intractable G44.229 Active 838730928 Problem RUQ abdominal pain R10.11 Active 740585573 Problem Pancytopenia D61.818 Active 682229330 Problem Right sided sciatica M54.31 Active 16010828 Problem Chronic prescription opiate use Z79.891 Active 385125760 Problem Drug induced constipation K59.03 Active 427827271246030 Problem Leukopenia, unspecified type D72.819 Active 17496706 Problem Atrial fibrillation, unspecified type I48.91 Active 09705663 Problem Allergic rhinitis, unspecified allergic rhinitis type J30.9 Active 00178147 Problem Chronic obstructive pulmonary disease, unspecified COPD type J44.9 Active 88720622 Problem Hypothyroidism, unspecified hypothyroidism type E03.9 Active 63226823 Problem Other constipation K59.09 Active 480184957 Problem Porokeratosis Q82.8 Active 381862427 Problem 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 Active 731900688 Problem Allergy to intravenous contrast Z91.041 Active 413158028 Problem Vaginal atrophy N95.2 Active 239156472 Problem Major depression, recurrent F33.9 Active 96874432 Problem History of hepatitis C Z86.19 Active 87856500624840 Problem Hot flashes N95.1 Active 671692453 Problem Plantar fasciitis M72.2 Active 607317987 Problem Polyneuropathy associated with underlying disease G63 Active 650331456 Problem Primary insomnia F51.01 Active 2236770 Problem Low back pain M54.5 Active 691335726 ALLERGIES No Information ENCOUNTERS Encounter Location Date Diagnosis [facility] [id number] [address] Jul, [facility] [id number] [place] [address] Jun, [facility] [id number] [place] [address] Jun, [facility] [id number] [place] [address] May, [facility] [id number] [place] [address] May, [facility] [id number] [place] [address] May, [facility] [id number] [place] [address] Apr, [facility] [id number] [place] [address] Apr, Hypothyroidism, unspecified hypothyroidism type E03.9 [facility] [id number] [place] [address] Apr, Hypothyroidism, unspecified hypothyroidism type E03.9 and Leukopenia, unspecified type D72.819 [facility] [id number] [place] [address] Mar, [facility] [id number] [place] [address] Mar, Leukopenia, unspecified type D72.819 [facility] [id number] [place] [address] Mar, Hypothyroidism, unspecified hypothyroidism type E03.9 and Low hemoglobin D64.[address] [address] Mar, Hypothyroidism, unspecified hypothyroidism type E03.[address] [address] Mar, Osteoporosis M81.0 ; Low hemoglobin D64.9 and Hypothyroidism, unspecified hypothyroidism type E03.[address] [address] Mar, Hypothyroidism, unspecified hypothyroidism type E03.9 ; Bilirubin in urine R82.2 and Pancytopenia D61.[address] [address] Feb, [facility] [address] [address] Feb, Cough R05 and Bronchitis J40 [facility] [place] [address] [address] 14 Feb, 2017 Other viral agents as the cause of diseases classified elsewhere B97.89 and Acute upper respiratory infection, unspecified J06.[address] [address] Feb, Fibromyalgia M79.7 ; Chronic pain syndrome G89.4 ; Hypothyroidism, unspecified hypothyroidism type E03.9 ; Primary insomnia F51.01 ; Osteoporosis M81.0 ; Vision abnormalities H53.9 ; Pancytopenia D61.818 ; BMI 28.0-28.9,adult Z68.28 and Encounter for immunization Z23 [address] [address] Feb, Neuroma D36.10 and Capsulitis of right foot M77.[address] [address] Feb, [id number] [place] [address] Feb, Hypothyroidism, unspecified hypothyroidism type E03.9 [facility] [id number] [place] [address] Jan, [facility] [id number] [place] [address] Jan, Atrial fibrillation, unspecified type I48.91 [facility] [id number] [place] [address] Jan, [facility] [id number] [place] [address] Jan, Fibromyalgia M79.7 ; Atrial fibrillation, unspecified type I48.91 ; Pain of left hand M79.642 ; Pain in right hand M79.641 ; Chronic prescription opiate use Z79.891 ; Chronic pain syndrome G89.4 ; Elevated fasting glucose R73.01 and Hypothyroidism, unspecified hypothyroidism type E03.9 [facility] [id number] [place] [address] Jan, [facility] [id number] [place] [address] Dec, Trochanteric bursitis of both hips M70.61 [facility] [id number] [place] [address] Dec, [facility] [id number] [place] [address] Dec, [facility] [id number] [place] [address] Nov, [facility] [id number] [place] [address] Nov, Unilateral headache R51 [facility] [id number] [place] [address] Nov, [facility] [id number] [place] [address] Oct, Unilateral headache R51 ; 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 and Allergy to intravenous contrast Z91.041 [facility] [id number] [place] [address] Oct, [facility] [address] [address] Oct, [facility] [address] [address] Sep, Hypothyroidism, unspecified hypothyroidism type E03.9 [place] [address] [address] Sep, Hypothyroidism, unspecified hypothyroidism type E03.9 and Bilirubin in urine R82.2 [place] [address] [address] Sep, Trochanteric bursitis of both hips M70.61 [facility] [address] [address] Sep, Hypothyroidism, unspecified hypothyroidism type E03.9 ; Dysuria R30.0 ; Chronic tension-type headache, not intractable G44.229 and Drug induced constipation K59.03 [place] [id number] [place] [address] Sep, [facility] [id number] [place] [address] Sep, [facility] [id number] [place] [address] August, [facility] [address] [address] Jul, [facility] [id number] [place] [address] Jul, Trochanteric bursitis of right hip M70.61 [facility] [address] [place] [address] Jul, Hypothyroidism, unspecified hypothyroidism type E03.9 [facility] [address] [address] Jul, Fibromyalgia M79.7 ; Chronic pain syndrome G89.4 ; Hypothyroidism, unspecified hypothyroidism type E03.9 and Other constipation K59.09 [facility] [id number] [place] [address] Jun, Swollen tonsil J35.1 and Strep throat J02.0 [facility] [address] [address] Jun, [facility] [address] [address] Jun, Acute maxillary sinusitis J01.00 [place] [id number] [place] [address] Jun, Hypothyroidism, unspecified hypothyroidism type E03.9 [facility] [id number] [place] [address] Jun, Chronic pain syndrome G89.4 ; Fibromyalgia M79.7 ; Hypothyroidism, unspecified hypothyroidism type E03.9 and Chronic prescription opiate use Z79.891 [facility] [id number] [place] [address] May, [facility] [id number] [place] [address] Apr, Hypothyroidism, unspecified hypothyroidism type E03.9 [facility] [id number] [place] [address] Apr, [facility] [address] [address] Apr, Lipid screening Z13.220 and Hypothyroidism, unspecified hypothyroidism type E03.9 [facility] [id number] [place] [address] Apr, [facility] [id number] [place] [address] Mar, Trochanteric bursitis of both hips M70.61 [facility] [id number] [place] [address] Mar, [facility] [id number] [place] [address] Mar, Plantar fasciitis M72.2 and Porokeratosis Q82.8 [place] [id number] [place] [address] Feb, Lipid screening Z13.220 ; Vitamin D deficiency E55.9 and Hypothyroidism, unspecified hypothyroidism type E03.9 [place] [id number] [place] [address] 16 Feb, 2016 Chronic pain syndrome G89.4 ; Hypothyroidism, unspecified hypothyroidism type E03.9 ; Pancytopenia D61.818 ; Vaginal atrophy N95.2 ; Chronic gastritis without bleeding, unspecified gastritis type K29.50 ; Vitamin D deficiency E55.9 ; Chronic prescription opiate use Z79.891 ; Adverse effect of other opioids, initial encounter T40.2X5A ; Drug induced constipation K59.03 ; Lipid screening Z13.220 and Encounter for immunization Z23 [place] [id number] [place] [address] Feb, [place] [id number] [place] [address] Feb, Ingrown toenail L60.0 [place] [id number] [place] [address] Jan, [place] [address] [address] Jan, Trochanteric bursitis of both hips M70.61 [place] [id number] [place] [address] Jan, [facility] [address] [address] Jan, [facility] [id number] [place] [address] Jan, [facility] [id number] [address] Jan, Right sided sciatica M54.31 [facility] [id number] [place] [address] 23 Dec, 2015 Onychomycosis B35.1 [facility] [id number] [place] [address] 22 Dec, 2015 [facility] [id number] [place] [address] Dec, [facility] [id number] [place] [address] 09 Dec, 2015 [facility] [address] [place] [address] Dec, Osteoarthritis of right hip, unspecified osteoarthritis type M16.11 and Bursitis of right hip M70.71 [facility] [address] [address] Nov, [facility] [address] [address] Nov, [facility] [address], [place] [address] Nov, [facility] [address], [place] [address] Nov, Hypothyroidism, unspecified hypothyroidism type E03.9 ; Vitamin D deficiency E55.9 and History of hepatitis C Z86.19 [facility] [address] [address] Nov, Right upper quadrant pain R10.11 ; History of hepatitis C Z86.19 and Low back pain M54.5 [facility] [id number] [place] [address] Oct, Trochanteric bursitis, right hip M70.61 [facility] [id number] [place] [address] Oct, [facility] [id number] [place] [address] Oct, [facility] [id number] [place] [address] Oct, Trochanteric bursitis of both hips M70.61 and Right sided sciatica M54.31 [facility] [id number] [place] [address] Oct, Trochanteric bursitis of both hips M70.61 [facility] [id number] [place] [address] Oct, RUQ abdominal pain R10.11 [facility] [id number] [place] [address] Oct, Sciatic leg pain M54.30 [facility] [id number] [place] [address] Oct, RUQ abdominal pain R10.11 [facility] [id number] [place] [address] Oct, RUQ abdominal pain R10.11 ; History of hepatitis C Z86.19 and Trigger point with back pain M54.9 [facility] [id number] [place] [address] Sep, [facility] [id number] [place] [address] Sep, Right sided sciatica M54.31 [facility] [id number] [place] [address] Sep, Hypothyroidism, unspecified hypothyroidism type E03.9 and Vitamin D deficiency E55.9 [place] [id number] [place] [address] Sep, Plantar fasciitis M72.2 and Porokeratosis Q82.8 [facility] [id number] [place] [address] Sep, Hypothyroidism, unspecified hypothyroidism type E03.9 ; Chronic pain syndrome G89.4 ; Polyneuropathy associated with underlying disease G63 and Vitamin D deficiency E55.9 [place] [id number] [place] [address] August, [place] [id number] [place] [address] Jul, Plantar fasciitis M72.2 [place] [id number] [place] [address] Jul, Trochanteric bursitis, right hip M70.61 [place] [id number] [place] [address] Jul, Hypothyroidism, unspecified hypothyroidism type E03.9 [place] [id number] [place] [address] Jul, Hypothyroidism, unspecified hypothyroidism type E03.9 ; Chronic pain syndrome G89.4 and Polyneuropathy associated with underlying disease G63 [place] [id number] [place] [address] Jun, Trochanteric bursitis of both hips M70.61 [place] [id number] [place] [address] Jun, Vitamin D deficiency E55.9 ; Osteoporosis M81.0 ; Low back pain M54.5 and Plantar fasciitis M72.2 [place] [id number] [place] [address] May, Vitamin D deficiency E55.9 and Hypothyroidism, unspecified hypothyroidism type E03.9 [facility] [address] [address] May, Acute maxillary sinusitis J01.00 [facility] [address] [place] [address] 18 May, 2015 Osteoporosis M81.0 and Hypothyroidism, unspecified hypothyroidism type E03.9 [facility] [address] [place] [address] 16 May, 2015 Osteoporosis M81.0 [facility] [address] [place] [address] May, [facility] [id number] [place] [address] Apr, [facility] [id number] [place] [address] Apr, Trochanteric bursitis of both hips M70.61 [facility] [address] [place] [address] Apr, Hypothyroidism, unspecified hypothyroidism type E03.9 [facility] [address] [place] [address] Apr, Chronic pain syndrome G89.4 ; Bilateral low back pain with sciatica, sciatica laterality unspecified M54.40 ; Pain in right hip M25.551 ; Pain in left hip M25.552 ; Chronic prescription opiate use Z79.899 ; Primary insomnia F51.01 and Hypothyroidism, unspecified hypothyroidism type E03.9 [facility] [address] [address] Mar, [facility] [id number] [place] [address] Feb, [facility] [address] [place] [address] Feb, Chronic pain syndrome G89.4 and Major depression F32.9 [place] [id number] [place] [address] 16 Feb, 2015 Fatigue R53.83 [place] [address] [address] 13 Feb, 2015 History of fracture Z87.81 [place] [id number] [place] [address] 12 Feb, 2015 Major depression, recurrent F33.9 and Generalized anxiety disorder F41.1 [place] [id number] [place] [address] Feb, [place] [id number] [place] [address] Jan, Hypothyroidism, unspecified hypothyroidism type E03.9 [place] [id number] [place] [address] Jan, Abdominal pain R10.9 and Hypothyroidism, unspecified hypothyroidism type E03.9 [place] [id number] [place] [address] Jan, Abdominal pain R10.9 [place] [id number] [place] [address] Jan, Hypothyroidism, unspecified hypothyroidism type E03.9 [place] [id number] [place] [address] Jan, [place] [id number] [place] [address] Jan, 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) w/o 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 Z01.419 and Hypothyroidism, unspecified hypothyroidism type E03.9 [place] [id number] [place] [address] Jan, 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) w/o 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 Z01.419 ; Abdominal pain R10.9 ; Dyspareunia N94.1 ; Encounter for immunization Z23 ; History of fracture Z87.81 ; Fatigue R53.83 ; Throat fullness R68.89 ; Bruises easily R23.8 ; Hot flashes N95.1 ; Depression F32.9 and Vaginal atrophy N95.2 [place] [id number] [place] [address] Jan, Hypothyroidism, unspecified hypothyroidism type E03.9 [place] [address] [address] Jan, Unspecified abdominal pain R10.9 ; Chronic obstructive pulmonary disease, unspecified COPD type J44.9 ; Allergic rhinitis, unspecified allergic rhinitis type J30.9 ; Chronic pain syndrome G89.4 ; Hypothyroidism, unspecified hypothyroidism type E03.9 ; Chest pain, unspecified chest pain type R07.9 and Plantar fasciitis M72.2 [place] [address] [address] Jan, Trochanteric bursitis of both hips M70.61 [place] [address] [address] Dec, [place] [address] [address] Nov, [place] [address] [address] Nov, [place] [address] [address] Nov, Constipation 564.00 [place] [address] [address] Oct, Chronic pain 338.29 and Hypothyroidism 244.9 [place] [address] [address] Oct, [place] [address] [address] Sep, [place] [address] [address] Sep, [facility] [address] [address] Sep, [facility] [id number] [address] Sep, [facility] [address] [address] Sep, [facility] [id number] [place] [address] Sep, [facility] [address] [place] [address] Sep, COPD exacerbation 491.21 ; Chronic pain 338.29 ; Hypothyroidism 244.9 and Pancytopenia 284.19 [facility] [id number] [address] August, [facility] [id number] [place] [id number] Jul, [facility] [id number] [address] Jul, [facility] [id number] [address] Jun, [facility] [id number] [address] Jun, [facility] [id number] [address] Jun, [facility] [id number] [address] Jun, [facility] [id number] [address] Jun, [facility] [id number] [address] May, [facility] [id number] [address] May, 2014 [facility] [place] [facility] [address] [id number] [place] [address] May, 2014 [facility] [place] [facility] [address] [id number] [place] [address] May, 2014 [facility] [place] [facility] [address] [facility] [id number] [place] [address] May, 2014 [facility] [place] [facility] [address] [id number] [place] [address] May, 2014 [facility] [place] [facility] [address] [facility] [id number] [place] [address] May, 2014 [facility] [place] [facility] [address] [facility] [facility] [id number] [place] [address] May, 2014 [facility] [place] [facility] [address] [id number] [place] [address] May, 2014 [facility] [place] [facility] [address] [facility] [id number] [place] [address] May, [facility] [place] [facility] [address] [id number] [place] [address] May, [facility] [place] [facility] [address] [facility] [id number] [place] [address] May, [facility] [place] [facility] [address] [facility] [id number] [place] [address] May, [facility] [place] [facility] [address] [facility] [id number] [place] [address] Apr, [facility] [place] [facility] [address] [facility] [id number] [place] [address] Apr, [facility] [place] [facility] [address] [facility] [id number] [place] [address] Apr, [facility] [place] [facility] [address] [facility] [id number] [place] [address] Apr, [facility] [place] [facility] [address] [id number] [place] [address] Apr, [facility] [place] [facility] [address] [id number] [place] [address] Apr, [facility] [place] [facility] [address] [id number] [place] [address] Apr, [facility] [place] [facility] [address] [id number] [place] [address] Mar, [facility] [place] [facility] [address] [id number] [place] [address] Mar, [facility] [place] [facility] [address] [id number] [place] [address] Mar, [facility] [place] [facility] [address] [id number] [place] [address] Mar, [facility] [place] [facility] [address] [id number] [place] [address] Mar, [facility] [place] [facility] [address] [id number] [place] [address] Mar, [facility] [place] [facility] [address] [id number] [place] [address] Feb, [facility] [place] [facility] [address] [id number] [place] [address] Feb, [facility] [place] [facility] [address] [id number], [place] [address] Feb, [facility] [place] [facility] [address] [id number] [place] [address] Feb, [facility] [place] [facility] [address] [id number] [place] [address] Feb, [facility] [place] [facility] [address] [id number] [place] [address] Feb, [facility] [place] [facility] [address] [id number] [place] [address] Jan, [facility] [place] [facility] [address] [id number] [place] [address] Jan, [facility] [place] [facility] [address] [id number] [place] [address] Jan, [facility] [place] [facility] [address] [id number] [place] [address] Jan, [facility] [place] [facility] [address] [id number] [place] [address] Jan, [facility] [place] [facility] [address] [id number] [place] [address] Jan, [facility] [place] [facility] [address] [id number] [place] [address] Jan, [facility] [place] [facility] [address] [id number] [place] [address] Jan, [facility] [place] [facility] [address] [id number] [place] [address] 25 Dec, 2013 [facility] [place] [facility] [address] [id number] [place] [address] 25 Dec, 2013 [facility] [place] [facility] [address] [id number] [place] [address] 23 Dec, 2013 [facility] [place] [facility] [address] [id number] [place] [address] 23 Dec, 2013 [facility] [place] [facility] [address] [id number] [place] [address] 13 Dec, 2013 [facility] [place] [facility] [address] [id number] [place] [address] 10 Dec, 2013 [facility] [place] [facility] [address] [id number] [place] [address] 10 Dec, 2013 [facility] [place] [facility] [address] [id number] [place] [address] Nov, [facility] [place] [facility] [address] [id number] [place] [address] Nov, [facility] [place] [facility] [address] [id number] [place] [address] Oct, [facility] [place] [facility] [address] [id number] [place] [address] Oct, [facility] [place] [facility] [address] [id number] [place] [address] Oct, [facility] [place] [facility] [address] [id number] [place] [address] Oct, [facility] [place] [facility] [address] [id number] [place] [address] Sep, [facility] [place] [facility] [address] [id number] [place] [address] Sep, [facility] [place] [facility] [address] [id number] [place] [address] Sep, [facility] [place] [facility] [address] [id number] [place] [address] Sep, [facility] [place] [facility] [address] [id number] [place] [address] Sep, [facility] [place] [facility] [address] [id number] [place] [address] Sep, [facility] [place] [facility] [address] [id number] [place] [address] Sep, [facility] [place] [facility] [address] [id number] [place] [address] Sep, [facility] [place] [facility] [address] [id number] [place] [address] August, [facility] [place] [facility] [address] [id number] [place] [address] August, [facility] [place] [facility] [address] [id number] [place] [address] August, [facility] [place] [facility] [address] [id number] [place] [address] August, [facility] [place] [facility] [address] [id number] [place] [address] Jul, [facility] [place] [facility] [address] [id number] [place] [address] Jul, [facility] [place] [facility] [address] [id number] [place] [address] Jul, [facility] [place] [facility] [address] [id number] [place] [address] Jul, [facility] [place] [facility] [address] [id number] [place] [address] Jul, [facility] [place] [facility] [address] [id number] [place] [address] 16 Jul, 2013 [facility] [place] [facility] [address] [id number] [place] [address] Jul, [facility] [place] [facility] [address] [id number] [place] [address] Jul, [facility] [place] [facility] [address] [id number] [place] [address] Jun, [facility] [place] [facility] [address] [id number] [place] [address] Jun, [facility] [place] [facility] [address] [id number] [place] [address] Jun, [facility] [place] [facility] [address] [id number] [place] [address] Jun, [facility] [place] [facility] [address] [id number] [place] [address] Jun, [facility] [place] [facility] [address] [id number] [place] [address] Jun, [facility] [place] [facility] [address] [id number] [place] [address] Jun, [facility] [address] [id number] [place] [address] Jun, [facility] [address] [id number] [place] [address] May, [facility] [address] [id number] [place] [address] May, [facility] [address] [id number] [place] [address] Apr, [facility] [address] [id number] [place] [address] Apr, [facility] [address] [id number] [place] [address] Mar, [facility] [address] [id number] [place] [address] 24 Mar, 2013 [facility] [address] [id number] [place] [address] Mar, [facility] [address] [id number] [place] [address] Mar, [facility] [address] [id number] [place] [address] 18 Mar, 2013 [facility] [place] [facility] [address] [id number] [place] [address] Mar, [facility] [address] [id number] [place] [address] Mar, [facility] [place] [facility] [address] [id number] [place] [address] Feb, [facility] [place] [facility] [address] [id number] [place] [address] Feb, [facility] [place] [facility] [address] [id number] [place] [address] Feb, [facility] [place] [facility] [address] [id number] [place] [address] Feb, [facility] [place] [facility] [address] [id number] [place] [address] Feb, [facility] [place] [facility] [address] [id number] [place] [address] Feb, [facility] [place] [facility] [address] [id number] [place] [address] 26 Dec, 2012 [facility] [place] [facility] [address] [id number] [place] [address] 18 Dec, 2012 [facility] [place] [facility] [address] [id number] [place] [address] Dec, [facility] [place] [facility] [address] [id number] [place] [address] Dec, [facility] [place] [facility] [address] [id number] [place] [address] Dec, [facility] [place] [facility] [address] [id number] [place] [address] Nov, [facility] [place] [facility] [address] [id number] [place] [address] Nov, [facility] [place] [facility] [address] [id number] [place] [address] Oct, [facility] [place] [facility] [address] [id number] [place] [address] August, [facility] [place] [facility] [address] [id number] [place] [address] August, [facility] [place] [facility] [address] [id number] [place] [address] August, [facility] [place] [facility] [address] [id number] [place] [address] Jul, [facility] [place] [facility] [address] [id number] [place] [address] Jul, [facility] [address] [id number] [place] [address] 04 Jul, 2012 [facility] [address] [id number] [place] [address] 27 Jun, 2012 [facility] [address] [id number] [place] [address] Jun, [facility] [address] [id number] [place] [address] Jun, [facility] [address] [id number] [place] [address] Jun, [facility] [address] [id number] [place] [address] Jun, [facility] [address] [id number] [place] [address] 15 Jun, 2012 [facility] [address] [id number] [place] [address] Jun, [facility] [address] [id number] [place] [address] 18 May, 2012 [facility] [address] [id number] [place] [address] May, [facility] [address] [id number] [place] [address] 06 May, 2012 [facility] [address] [id number] [place] [address] 05 May, 2012 [facility] [place] [facility] [address] [id number] [place] [address] Apr, [facility] [place] [facility] [address] [id number] [place] [address] Apr, [facility] [address] [id number] [place] [address] Apr, [facility] [place] [facility] [address] [id number] [place] [address] Mar, [facility] [place] [facility] [address] [id number] [place] [address] Mar, [facility] [place] [facility] [address] [id number] [place] [address] Mar, [facility] [place] [facility] [address] [id number] [place] [address] Mar, [facility] [address] [id number] [place] [address] Mar, [facility] [place] [facility] [address] [id number] [place] [address] Mar, [facility] [address] [id number] [place] [address] Mar, [facility] [place] [facility] [address] [id number] [place] [address] Mar, [facility] [place] [facility] [address] [id number] [place] [address] Feb, [facility] [place] [facility] [address] [id number] [place] [address] Feb, [facility] [place] [facility] [address] [id number] [place] [address] Feb, [facility] [place] [facility] [address] [id number], [place] [address] Jan, [facility] [place] [facility] [address] [id number] [place] [address] Jan, [facility] [place] [facility] [address] [id number] [place] [address] Jan, [facility] [place] [facility] [address] [id number] [place] [address] Jan, [facility] [place] [facility] [address] [id number], [place] [address] Jan, [facility] [place] [facility] [address] [id number] [place] [address] Jan, [facility] [place] [facility] [address] [id number] [place] [address] Jan, [facility] [place] [facility] [address] [id number] [place] [address] Dec, [facility] [place] [facility] [address] [id number] [place] [address] 24 Dec, 2011 [facility] [place] [facility] [address] [id number] [place] [address] Dec, [facility] [place] [facility] [address] [id number] [place] [address] Nov, [facility] [place] [facility] [address] [id number] [place] [address] Nov, [facility] [place] [facility] [address] [id number] [place] [address] Nov, [facility] [place] [facility] [address] [id number] [place] [address] Nov, [facility] [place] [facility] [address] [id number] [place] [address] Oct, [facility] [place] [facility] [address] [id number] [place] [address] Oct, [facility] [place] [facility] [address] [id number] [place] [address] Oct, [facility] [place] [facility] [address] [id number] [place] [address] Sep, [facility] [place] [facility] [address] [id number] [place] [address] Sep, [facility] [place] [facility] [address] [id number] [place] [address] Sep, [facility] [place] [facility] [address] [id number] [place] [address] Sep, [facility] [address] [id number] [place] [address] Sep, [facility] [place] [facility] [address] [id number] [place] [address] Sep, [facility] [address] [id number] [place] [address] August, [facility] [address] [id number] [place] [address] Jul, [facility] [address] [id number] [place] [address] Jul, [facility] [address] [id number] [place] [address] Jul, [facility] [address] [id number] [place] [address] Jul, [facility] [address] [id number] [place] [address] Jul, [facility] [address] [id number] [place] [address] 29 Jun, 2011 [facility] [address] [id number] [place] [address] Jun, [facility] [place] [facility] [address] [id number] [place] [address] 15 Jun, 2011 [facility] [address] [id number] [place] [address] 15 Jun, 2011 [facility] [place] [facility] [address] [id number] [place] [address] Jun, [facility] [place] [facility] [address] [id number] [place] [address] May, [facility] [place] [facility] [address] [id number] [place] [address] May, [facility] [place] [facility] [address] [id number] [place] [address] May, [facility] [place] [facility] [address] [id number] [place] [address] May, [facility] [place] [facility] [address] [id number] [place] [address] May, [facility] [place] [facility] [address] [id number] [place] [address] May, [facility] [place] [facility] [address] [id number] [place] [address] May, [facility] [place] [facility] [address] [id number] [place] [address] Apr, [facility] [place] [facility] [address] [id number] [place] [address] Mar, [facility] [place] [facility] [address] [id number] [place] [address] Mar, [facility] [place] [facility] [address] [id number] [place] [address] Mar, [facility] [place] [facility] [address] [id number] [place] [address] Mar, [facility] [place] [facility] [address] [id number] [place] [address] 08 Mar, 2011 [facility] [place] [facility] [address] [id number] [place] [address] 23 Feb, 2011 [facility] [place] [facility] [address] [id number] [place] [address] 14 Feb, 2011 [facility] [place] [facility] [address] [id number] [place] [address] 14 Feb, 2011 [facility] [place] [facility] [address] [id number] [place] [address] 14 Feb, 2011 [facility] [place] [facility] [address] [id number] [place] [address] 07 Feb, 2011 [facility] [address] [id number] [place] [address] Feb, [facility] [place] [facility] [address] [id number] [place] [address] Feb, [facility] [address] [id number] [place] [address] Jan, [facility] [place] [facility] [address] [id number] [place] [address] Dec, [facility] [address] [id number] [place] [address] Oct, [facility] [address] [id number] [place] [address] Jun, [facility] [address] [id number] [place] [address] Mar, [facility] [address] [id number] [place] [address] 23 Mar, 2010 [facility] [address] [id number] [place] [address] 16 Mar, 2010 [facility] [address] [id number] [place] [address] 16 Mar, 2010 [facility] [address] [id number] [place] [address] 15 Mar, 2010 [facility] [address] [id number] [place] [address] 10 Mar, 2010 [facility] [place] [facility] [address] [id number] [place] [address] 10 Mar, 2010 [facility] [place] [facility] [address] [id number] [place] [address] 05 Mar, 2010 [facility] [address] [id number] [place] [address] Mar, [facility] [address] [id number] [place] [address] Mar, [facility] [place] [facility] [address] [id number] [place] [address] Jan, [facility] [place] [facility] [address] [id number] [place] [address] Jan, [facility] [place] [facility] [address] [id number] [place] [address] Jan, [facility] [address] [id number] [place] [address] Nov, [facility] [place] [facility] [address] [id number] [place] [address] Oct, [facility] [place] [facility] [address] [id number] [place] [address] 31 Mar, 2009 [facility] [place] [facility] [address] [id number], [place] [address] Mar, [facility] [place] [facility] [address] [id number], [place] [address] Mar, [facility] [place] [facility] [address] [facility] [id number], [place] [address] Mar, [facility] [place] [facility] [address] [id number], [place] [address] 17 Dec, 2008 [facility] [place] [facility] [address] [id number], [place] [address] August, [facility] [place] [facility] [address] [id number], [place] [address] August, [facility] [place] [facility] [address] [id number], [place] [address] 15 Jul, 2008 [facility] [place] [facility] [address] [facility] [id number][place] [address] Jan, [facility] [place] [facility] [address] [id number], [place] [address] Jan, IMMUNIZATIONS No Known Immunizations SOCIAL HISTORY Never Assessed REASON FOR VISIT Rx from lab results PLAN OF CARE VITAL SIGNS MEDICATIONS Medication Instructions Dosage Frequency Start Date End Date Duration Status Levothyroxine Sodium 200 MCG Orally Once a day 2 tablet 24h Sep, 30 days Active RESULTS No Results PROCEDURES No [...]
--- OUTSIDE RECORDS SUMMARY | 2018-09-22 03:13 | XMS REPORT ---
Author Author BRENNEN ALMENDAREZ [facility] Address [address] [place] [address] Care Team Providers Care Strap Sewer Name Role Phone BRENNEN ALMENDAREZ Unavailable PROBLEMS Type Condition ICD9-CM Code GJI98-[id number] Code Onset Dates Condition Status SNOMED Code Problem Chronic gastritis without bleeding, unspecified gastritis type K29.50 Active 6372505 Problem Vitamin D deficiency E55.9 Active 56371826 Problem Osteoporosis M81.0 Active 55829746 Problem Unspecified abdominal pain R10.9 Active 060206856 Problem Fibromyalgia M79.7 Active 15647286 Problem Chronic pain syndrome G89.4 Active 269194403 Problem Trigger point with back pain M54.9 Active 370842857 Problem Chronic tension-type headache, not intractable G44.229 Active 142836300 Problem RUQ abdominal pain R10.11 Active 226578975 Problem Pancytopenia D61.818 Active 049201617 Problem Right sided sciatica M54.31 Active 94685794 Problem Chronic prescription opiate use Z79.891 Active 874078625 Problem Drug induced constipation K59.03 Active 391409785294374 Problem Leukopenia, unspecified type D72.819 Active 99264940 Problem Atrial fibrillation, unspecified type I48.91 Active 97020732 Problem Allergic rhinitis, unspecified allergic rhinitis type J30.9 Active 15024400 Problem Chronic obstructive pulmonary disease, unspecified COPD type J44.9 Active 93728779 Problem Hypothyroidism, unspecified hypothyroidism type E03.9 Active 06050150 Problem Other constipation K59.09 Active 032041530 Problem Porokeratosis Q82.8 Active 250496367 Problem 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 Active 002720060 Problem Allergy to intravenous contrast Z91.041 Active 858115762 Problem Vaginal atrophy N95.2 Active 993069590 Problem Major depression, recurrent F33.9 Active 22199915 Problem History of hepatitis C Z86.19 Active 29216842322436 Problem Hot flashes N95.1 Active 659440830 Problem Plantar fasciitis M72.2 Active 591703124 Problem Polyneuropathy associated with underlying disease G63 Active 630398825 Problem Primary insomnia F51.01 Active 9312817 Problem Low back pain M54.5 Active 134538687 ALLERGIES No Information ENCOUNTERS Encounter Location Date Diagnosis [place] [address] [address] Jul, Trochanteric bursitis of left hip M70.62 and Trochanteric bursitis, right hip M70.61 [place] [address] [address] Jul, [place] [address] [address] Jul, Chronic pain syndrome G89.4 [place] [address] [address] Jul, Hypothyroidism, unspecified hypothyroidism type E03.9 [place] [address] [place] [id number] [place] [address] Jul, Hypothyroidism, unspecified hypothyroidism type E03.9 [place] [address] [place] [id number] [place] [address] Jul, Chronic tension-type headache, not intractable G44.229 ; Atrial fibrillation, unspecified type I48.91 ; Chronic pain syndrome G89.4 ; Hypothyroidism, unspecified hypothyroidism type E03.9 ; Pancytopenia D61.818 ; History of hepatitis C Z86.19 ; Vaginal atrophy N95.2 ; RUQ abdominal pain R10.11 ; Chronic prescription opiate use Z79.891 ; Osteoporosis M81.0 and Screening for breast cancer Z12.31 [place] [address] [place] [id number] [place] [address] Jun, [place] [address] [place] [id number] [place] [address] May, [place] [address] [address] May, [facility] [address] [address] May, [facility] [address] [place] [address] Apr, [facility] [address] [address] Apr, Hypothyroidism, unspecified hypothyroidism type E03.9 [facility] [address] [place] [address] Apr, Hypothyroidism, unspecified hypothyroidism type E03.9 and Leukopenia, unspecified type D72.819 [place] [address] [place] [address] Mar, [place] [address] [place] [id number] [place] [address] Mar, Leukopenia, unspecified type D72.819 [facility] [address] [place] [address] Mar, Hypothyroidism, unspecified hypothyroidism type E03.9 and Low hemoglobin D64.9 [place] [address] [address] Mar, Hypothyroidism, unspecified hypothyroidism type E03.9 [place] [address] [address] Mar, Osteoporosis M81.0 ; Low hemoglobin D64.9 and Hypothyroidism, unspecified hypothyroidism type E03.9 [place] [address] [place] [address] Mar, Hypothyroidism, unspecified hypothyroidism type E03.9 ; Bilirubin in urine R82.2 and Pancytopenia D61.818 [facility] [address] [address] Feb, [facility] [address] [place] [id number] [place] [address] 18 Feb, 2017 Cough R05 and Bronchitis J40 [facility] [address] [address] 14 Feb, 2017 Other viral agents as the cause of diseases classified elsewhere B97.89 and Acute upper respiratory infection, unspecified J06.9 [place] [address] [address] Feb, Fibromyalgia M79.7 ; Chronic pain syndrome G89.4 ; Hypothyroidism, unspecified hypothyroidism type E03.9 ; Primary insomnia F51.01 ; Osteoporosis M81.0 ; Vision abnormalities H53.9 ; Pancytopenia D61.818 ; BMI 28.0-28.9,adult Z68.28 and Encounter for immunization Z23 [place] [address] [address] Feb, Neuroma D36.10 and Capsulitis of right foot M77.51 [facility] [address] [place] [id number] [place] [address] Feb, [place] [address] [address] Feb, Hypothyroidism, unspecified hypothyroidism type E03.9 [facility] [address] [place] [id number] [place] [address] Jan, [place] [address] [address] Jan, Atrial fibrillation, unspecified type I48.91 [place] [address] [address] Jan, [place] [address] [address] Jan, Fibromyalgia M79.7 ; Atrial fibrillation, unspecified type I48.91 ; Pain of left hand M79.642 ; Pain in right hand M79.641 ; Chronic prescription opiate use Z79.891 ; Chronic pain syndrome G89.4 ; Elevated fasting glucose R73.01 and Hypothyroidism, unspecified hypothyroidism type E03.9 [facility] [address] [address] Jan, [facility] [address] [address] Dec, Trochanteric bursitis of both hips M70.61 [place] [address] [address] Dec, [place] [address] [address] Dec, [place] [address] [address] Nov, [place] [address] [address] Nov, Unilateral headache R51 [facility] [address] [address] Nov, [facility] [address] [address] Oct, Unilateral headache R51 ; 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 and Allergy to intravenous contrast Z91.041 [facility] [address] [address] Oct, [facility] [address] [address] Oct, [facility] [address] [place] [id number] [place] [address] Sep, Hypothyroidism, unspecified hypothyroidism type E03.9 [facility] [address] [address] Sep, Hypothyroidism, unspecified hypothyroidism type E03.9 and Bilirubin in urine R82.2 [place] [address] [address] Sep, Trochanteric bursitis of both hips M70.61 [facility] [address] [place] [id number] [place] [address] Sep, Hypothyroidism, unspecified hypothyroidism type E03.9 ; Dysuria R30.0 ; Chronic tension-type headache, not intractable G44.229 and Drug induced constipation K59.03 [facility] [address] [address] Sep, [facility] [address] [place] [id number] [place] [address] Sep, [facility] [address] [address] August, [facility] [address] [address] Jul, [facility] [address] [address] Jul, Trochanteric bursitis of right hip M70.61 [facility] [address] [address] Jul, Hypothyroidism, unspecified hypothyroidism type E03.9 [facility] [address] [place] [id number] [place] [address] Jul, Fibromyalgia M79.7 ; Chronic pain syndrome G89.4 ; Hypothyroidism, unspecified hypothyroidism type E03.9 and Other constipation K59.09 [facility] [address] [place] [id number] [place] [address] Jun, Swollen tonsil J35.1 and Strep throat J02.0 [facility] [address] [address] Jun, [facility] [address] [address] Jun, Acute maxillary sinusitis J01.00 [facility] [address] [place] [address] Jun, Hypothyroidism, unspecified hypothyroidism type E03.9 [facility] [address] [place] [id number] [place] [address] Jun, Chronic pain syndrome G89.4 ; Fibromyalgia M79.7 ; Hypothyroidism, unspecified hypothyroidism type E03.9 and Chronic prescription opiate use Z79.891 [place] [address] [address] May, [facility] [address] [address] Apr, Hypothyroidism, unspecified hypothyroidism type E03.9 [facility] [address] [place] [id number] [place] [address] Apr, [facility] [address] [address] Apr, Lipid screening Z13.220 and Hypothyroidism, unspecified hypothyroidism type E03.9 [facility] [address] [place] [id number] [place] [address] Apr, [facility] [address] [place] [id number] [place] [address] Mar, Trochanteric bursitis of both hips M70.61 [place] [address] [place] [id number] [place] [address] Mar, [facility] [address] [place] [id number] [place] [address] Mar, Plantar fasciitis M72.2 and Porokeratosis Q82.8 [facility] [address] [address] Feb, Lipid screening Z13.220 ; Vitamin D deficiency E55.9 and Hypothyroidism, unspecified hypothyroidism type E03.9 [facility] [address] [place] [id number] [place] [address] 16 Nov, 2016 Chronic pain syndrome G89.4 [...] Encounter for immunization Z23 [facility] [address] [address] Feb, [place] [address] [address] Feb, Ingrown toenail L60.0 [place] [address] [address] Jan, [place] [address] [address] Jan, Trochanteric bursitis of both hips M70.61 [place] [address] [address] Jan, [place] [address] [address] Jan, [place] [address] [place] [id number] [place] [address] Jan, [place] [address] [place] [id number] [place] [address] Jan, Right sided sciatica M54.31 [place] [address] [place] [id number] [place] [address] Dec, Onychomycosis B35.1 [place] [address] [address] Dec, [place] [address] [place] [id number] [place] [address] Dec, [place] [address] [place] [address] Dec, [facility] [address] [place] [id number] [place] [address] Dec, Osteoarthritis of right hip, unspecified osteoarthritis type M16.11 and Bursitis of right hip M70.71 [facility] [address] [place] [id number] [place] [address] Nov, [facility] [address] [place] [id number] [place] [address] Nov, [facility] [address] [place] [id number] [place] [address] Nov, [place] [address] [place] [id number] [place] [address] Nov, Hypothyroidism, unspecified hypothyroidism type E03.9 ; Vitamin D deficiency E55.9 and History of hepatitis C Z86.19 [place] [address] [place] [id number] [place] [address] Nov, Right upper quadrant pain R10.11 ; History of hepatitis C Z86.19 and Low back pain M54.5 [place] [address] [place] [id number] [place] [address] Oct, Trochanteric bursitis, right hip M70.61 [place] [address] [place] [address] Oct, [facility] [address] [place] [id number] [place] [address] Oct, [facility] [address] [place] [address] Oct, Trochanteric bursitis of both hips M70.61 and Right sided sciatica M54.31 [place] [address] [place] [address] Oct, Trochanteric bursitis of both hips M70.61 [facility] [address] [place] [id number] [place] [address] 14 Oct, 2015 RUQ abdominal pain R10.11 [place] [address] [address] 13 Oct, 2015 Sciatic leg pain M54.30 [place] [address] [address] 11 Oct, 2015 RUQ abdominal pain R10.11 [place] [address] [address] 07 Oct, 2015 RUQ abdominal pain R10.11 ; History of hepatitis C Z86.19 and Trigger point with back pain M54.9 [place] [address] [address] Sep, [place] [address] [address] Sep, Right sided sciatica M54.31 [place] [address] [place] [id number] [place] [address] Sep, Hypothyroidism, unspecified hypothyroidism type E03.9 and Vitamin D deficiency E55.9 [place] [address] [place] [id number] [place] [address] Sep, Plantar fasciitis M72.2 and Porokeratosis Q82.8 [place] [address] [place] [id number] [place] [address] Sep, Hypothyroidism, unspecified hypothyroidism type E03.9 ; Chronic pain syndrome G89.4 ; Polyneuropathy associated with underlying disease G63 and Vitamin D deficiency E55.9 [place] [address] [address] August, [place] [address] [place] [id number] [place] [address] Jul, Plantar fasciitis M72.2 [place] [address] [address] Jul, Trochanteric bursitis, right hip M70.61 [place] [address] [place] [id number] [place] [address] 07 Jul, 2015 Hypothyroidism, unspecified hypothyroidism type E03.9 [place] [address] [place] [id number] [place] [address] Jul, Hypothyroidism, unspecified hypothyroidism type E03.9 ; Chronic pain syndrome G89.4 and Polyneuropathy associated with underlying disease G63 [place] [address] [place] [id number] [place] [address] 10 Jun, 2015 Trochanteric bursitis of both hips M70.61 [place] [address] [place] [id number] [place] [address] 08 Jun, 2015 Vitamin D deficiency E55.9 ; Osteoporosis M81.0 ; Low back pain M54.5 and Plantar fasciitis M72.2 [place] [address] [place] [id number] [place] [address] 26 May, 2015 Vitamin D deficiency E55.9 and Hypothyroidism, unspecified hypothyroidism type E03.9 [place] [address] [place] [id number] [place] [address] 23 May, 2015 Acute maxillary sinusitis J01.00 [place] [address] [place] [id number] [place] [address] 18 May, 2015 Osteoporosis M81.0 and Hypothyroidism, unspecified hypothyroidism type E03.9 [place] [address] [place] [id number] [place] [address] 16 May, 2015 Osteoporosis M81.0 [place] [address] [place] [id number] [place] [address] 15 May, 2015 [place] [address] [place] [id number] [place] [address] Apr, [place] [address] [place] [id number] [place] [address] Apr, Trochanteric bursitis of both hips M70.61 [place] [address] [place] [id number] [place] [address] Apr, Hypothyroidism, unspecified hypothyroidism type E03.9 [place] [address] [place] [address] [place] [address] Apr, Chronic pain syndrome G89.4 ; Bilateral low back pain with sciatica, sciatica laterality unspecified M54.40 ; Pain in right hip M25.551 ; Pain in left hip M25.552 ; Chronic prescription opiate use Z79.899 ; Primary insomnia F51.01 and Hypothyroidism, unspecified hypothyroidism type E03.9 [place] [address] [address] Mar, [place] [address] [address] Feb, [place] [address] [address] Feb, Chronic pain syndrome G89.4 and Major depression F32.9 [place] [address] [address] Feb, Fatigue R53.83 [place] [address] [address] 13 Feb, 2015 History of fracture Z87.81 [place] [address] [place] [id number] [place] [address] Feb, Major depression, recurrent F33.9 and Generalized anxiety disorder F41.1 [place] [address] [address] Feb, [place] [address] [address] Jan, Hypothyroidism, unspecified hypothyroidism type E03.9 [place] [address] [address] Jan, Abdominal pain R10.9 and Hypothyroidism, unspecified hypothyroidism type E03.9 [place] [address] [place] [address] Jan, Abdominal pain R10.9 [place] [address] [place] [id number] [place] [address] Jan, Hypothyroidism, unspecified hypothyroidism type E03.9 [place] [address] [place] [id number] [place] [address] Jan, [place] [address] [address] Jan, Encntr for importer or exporter exam (general) (routine) w/o 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 Z01.419 and Hypothyroidism, unspecified hypothyroidism type E03.9 [place] [address] [place] [id number] [place] [address] Jan, Encntr for importer or exporter exam (general) (routine) w/o 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 Z01.419 ; Abdominal pain R10.9 ; Dyspareunia N94.1 ; Encounter for immunization Z23 ; History of fracture Z87.81 ; Fatigue R53.83 ; Throat fullness R68.89 ; Bruises easily R23.8 ; Hot flashes N95.1 ; Depression F32.9 and Vaginal atrophy N95.2 [place] [address] [place] [address] [place] [address] Jan, Hypothyroidism, unspecified hypothyroidism type E03.9 [place] [address] [place] [address] Jan, Unspecified abdominal pain R10.9 ; Chronic obstructive pulmonary disease, unspecified COPD type J44.9 ; Allergic rhinitis, unspecified allergic rhinitis type J30.9 ; Chronic pain syndrome G89.4 ; Hypothyroidism, unspecified hypothyroidism type E03.9 ; Chest pain, unspecified chest pain type R07.9 and Plantar fasciitis M72.2 [place] [address] [place] [id number] [place] [address] Jan, Trochanteric bursitis of both hips M70.61 [facility] [address] [place] [id number] [place] [address] Dec, [facility] [address] [place] [id number] [place] [address] Nov, [facility] [address] [place] [id number] [place] [address] Nov, [facility] [address] [place] [id number] [place] [address] Nov, Constipation 564.00 [facility] [address] [address] Oct, Chronic pain 338.29 and Hypothyroidism 244.9 [facility] [address] [place] [id number] [place] [address] Oct, [facility] [address] [place] [id number] [place] [address] Sep, [facility] [address] [place] [id number] [place] [address] Sep, [facility] [address] [place] [id number] [place] [address] Sep, [facility] [address] [place] [id number] [place] [address] Sep, [facility] [address] [place] [id number] [place] [address] Sep, [facility] [address] [place] [id number] [place] [address] Sep, [facility] [address] [place] [id number] [place] [address] Sep, COPD exacerbation 491.21 ; Chronic pain 338.29 ; Hypothyroidism 244.9 and Pancytopenia 284.19 [facility] [address] [place] [id number] [place] [address] August, [facility] [place] [facility] [address] [id number] [place] [address] Jul, [facility] [place] [facility] [address] [id number] [place] [address] Jul, [facility] [place] [facility] [address] [id number] [place] [address] Jun, [facility] [place] [facility] [address] [id number] [place] [address] Jun, [facility] [place] [facility] [address] [id number] [place] [address] Jun, [facility] [place] [facility] [address] [id number] [place] [address] Jun, [facility] [place] [facility] [address] [place] [id number] [place] [address] Jun, [facility] [place] [facility] [address] [facility] [id number] [place] [address] May, [facility] [place] [facility] [address] [id number] [place] [address] May, [facility] [place] [facility] [address] [facility] [id number] [place] [address] May, [facility] [place] [facility] [address] [id number] [address] May, [facility] [place] [facility] [address] [id number] [place] [address] May, [facility] [place] [facility] [address] [id number] [place] [address] May, [facility] [place] [facility] [address] [facility] [id number] [place] [address] May, [facility] [place] [facility] [address] [facility] [id number] [place] [address] May, [facility] [place] [facility] [address] [id number] [place] [address] May, 2014 [facility] [place] [facility] [address] [id number] [place] [address] May, 2014 [facility] [place] [facility] [address] [id number] [place] [address] May, 2014 [facility] [place] [facility] [address] [id number] [place] [address] May, 2014 [facility] [place] [facility] [address] [id number] [place] [address] May, [facility] [place] [facility] [address] [id number] [place] [address] Apr, [facility] [place] [facility] [address] [id number] [place] [address] Apr, [facility] [place] [facility] [address] [id number] [place] [address] Apr, [facility] [place] [facility] [address] [id number] [place] [address] Apr, [facility] [place] [facility] [address] [id number] [place] [address] Apr, [facility] [place] [facility] [address] [id number] [place] [address] Apr, [facility] [place] [facility] [address] [id number] [place] [address] Apr, [facility] [place] [facility] [address] [id number] [place] [address] Mar, [facility] [place] [facility] [address] [id number] [place] [address] Mar, [facility] [place] [facility] [address] [id number] [place] [address] Mar, [facility] [place] [facility] [address] [id number] [place] [address] Mar, [facility] [place] [facility] [address] [id number] [place] [address] Mar, [facility] [place] [facility] [address] [id number] [place] [address] Mar, [facility] [place] [facility] [address] [id number] [place] [address] Feb, [facility] [place] [facility] [address] [id number] [place] [address] Feb, [facility] [place] [facility] [address] [id number] [place] [address] Feb, [facility] [place] [facility] [address] [id number] [place] [address] Feb, [facility] [place] [facility] [address] [id number] [place] [address] Feb, [facility] [place] [facility] [address] [id number] [place] [address] Feb, [facility] [place] [facility] [address] [id number] [place] [address] Jan, [facility] [place] [facility] [address] [id number] [place] [address] Jan, [facility] [place] [facility] [address] [id number] [address] Jan, [facility] [place] [facility] [address] [id number] [place] [address] Jan, [facility] [place] [facility] [address] [id number] [place] [address] Jan, [facility] [place] [facility] [address] [id number] [address] Jan, [facility] [place] [facility] [address] [id number] [place] [address] Jan, [facility] [place] [facility] [address] [id number] [place] [address] Jan, [facility] [place] [facility] [address] [id number] [place] [address] Dec, [facility] [place] [facility] [address] [id number] [place] [address] Dec, [facility] [place] [facility] [address] [id number] [place] [address] Dec, [facility] [place] [facility] [address] [id number] [place] [address] Dec, [facility] [place] [facility] [address] [id number] [place] [address] Dec, [facility] [place] [facility] [address] [id number] [place] [address] Dec, [facility] [place] [facility] [address] [id number] [place] [address] Dec, [facility] [place] [facility] [address] [id number] [place] [address] Nov, [facility] [place] [facility] [address] [id number] [place] [address] Nov, [facility] [place] [facility] [address] [id number] [place] [address] Oct, [facility] [place] [facility] [address] [id number] [place] [address] Oct, [facility] [place] [facility] [address] [id number] [place] [address] Oct, [facility] [place] [facility] [address] [id number] [place] [address] Oct, [facility] [place] [facility] [address] [id number] [place] [address] Sep, [facility] [place] [facility] [address] [id number] [place] [address] Sep, [facility] [place] [facility] [address] [id number] [place] [address] Sep, [facility] [place] [facility] [address] [id number] [place] [address] Sep, [facility] [place] [facility] [address] [id number] [place] [address] Sep, [facility] [place] [facility] [address] [id number] [place] [address] Sep, [facility] [place] [facility] [address] [id number] [place] [address] Sep, [facility] [place] [facility] [address] [id number] [place] [address] Sep, [facility] [place] [facility] [address] [id number] [place] [address] August, [facility] [place] [facility] [address] [id number] [place] [address] August, [facility] [place] [facility] [address] [id number] [place] [address] August, [facility] [place] [facility] [address] [id number] [place] [address] August, [facility] [place] [facility] [address] [id number] [place] [address] Jul, [facility] [place] [facility] [address] [id number] [place] [address] Jul, [facility] [place] [facility] [address] [id number] [place] [address] Jul, [facility] [place] [facility] [address] [id number] [place] [address] Jul, [facility] [place] [facility] [address] [id number] [place] [address] Jul, [facility] [place] [facility] [address] [id number] [address] 16 Jul, 2013 [facility] [place] [facility] [address] [id number] [place] [address] 15 Jul, 2013 [facility] [place] [facility] [address] [id number] [place] [address] 15 Jul, 2013 [facility] [place] [facility] [address] [id number] [place] [address] 18 Jun, 2013 [facility] [place] [facility] [address] [id number] [place] [address] Jun, [facility] [place] [facility] [address] [id number] [place] [address] Jun, [facility] [place] [facility] [address] [id number] [place] [address] Jun, [facility] [place] [facility] [address] [facility] [id number] [place] [address] Jun, [facility] [place] [facility] [address] [id number] [place] [address] Jun, [facility] [place] [facility] [address] [id number] [place] [address] Jun, [facility] [place] [facility] [address] [id number] [place] [address] Jun, [facility] [place] [facility] [address] [id number] [place] [address] May, [facility] [place] [facility] [address] [id number] [place] [address] May, [facility] [place] [facility] [address] [id number] [place] [address] Apr, [facility] [place] [facility] [address] [id number] [place] [address] Apr, [facility] [place] [facility] [address] [id number] [place] [address] Mar, [facility] [place] [facility] [address] [id number] [place] [address] 24 Mar, 2013 [facility] [place] [facility] [address] [id number] [place] [address] Mar, [facility] [place] [facility] [address] [id number] [place] [address] 18 Mar, 2013 [facility] [place] [facility] [address] [id number] [place] [address] 18 Mar, 2013 [facility] [place] [facility] [address] [id number] [place] [address] Mar, [facility] [place] [facility] [address] [id number] [place] [address] Mar, [facility] [place] [facility] [address] [id number] [place] [address] Feb, [facility] [place] [facility] [address] [id number] [place] [address] Feb, [facility] [place] [facility] [address] [id number] [place] [address] Feb, [facility] [place] [facility] [address] [id number] [place] [address] Feb, [facility] [place] [facility] [address] [id number] [place] [address] Feb, [facility] [place] [facility] [address] [id number] [place] [address] 04 Feb, 2013 [facility] [place] [facility] [address] [id number] [place] [address] 26 Dec, 2012 [facility] [place] [facility] [address] [id number] [place] [address] 18 Sep2012 [facility] [place] [facility] [address] [id number] [place] [address] 13 Dec, 2012 [facility] [place] [facility] [address] [id number] [place] [address] Dec, [facility] [address] [id number] [place] [address] Dec, [facility] [address] [id number] [place] [address] Nov, [facility] [address] [id number] [place] [address] Nov, [facility] [address] [id number] [place] [address] Oct, [facility] [address] [id number] [place] [address] August, [facility] [address] [id number] [place] [address] August, [facility] [address] [id number] [place] [address] August, [facility] [address] [id number] [place] [address] Jul, [facility] [address] [id number] [place] [address] Jul, [facility] [address] [id number] [place] [address] Jul, [facility] [address] [id number] [place] [address] Jun, [facility] [place] [facility] [address] [id number] [address] Jun, [facility] [place] [facility] [address] [id number] [place] [address] Jun, [facility] [place] [facility] [address] [id number] [place] [address] Jun, [facility] [place] [facility] [address] [id number] [place] [address] 18 Jun, 2012 [facility] [place] [facility] [address] [id number] [place] [address] 15 Jun, 2012 [facility] [address] [id number] [place] [address] 12 Jun, 2012 [facility] [address] [id number] [place] [address] 18 May, 2012 [facility] [address] [id number] [place] [address] 11 May, 2012 [facility] [address] [id number] [place] [address] 06 May, 2012 [facility] [address] [id number] [place] [address] 05 May, 2012 [facility] [address] [facility] [id number] [place] [address] Apr, [facility] [address] [facility] [id number] [place] [address] Apr, [facility] [address] [id number] [place] [address] Apr, [facility] [address] [facility] [id number] [place] [address] Mar, [facility] [address] [facility] [id number] [place] [address] Mar, [facility] [address] [id number] [place] [address] Mar, [facility] [address] [id number] [place] [address] Mar, [facility] [place] [facility] [address] [id number] [place] [address] Mar, [facility] [address] [id number] [place] [address] Mar, [facility] [address] [facility] [id number] [place] [address] Mar, [facility] [place] [facility] [address] [id number] [place] [address] Mar, [facility] [place] [facility] [address] [id number] [place] [address] Feb, [facility] [place] [facility] [address] [id number] [place] [address] Feb, [facility] [place] [facility] [address] [id number] [place] [address] Feb, [facility] [place] [facility] [address] [id number] [place] [address] Jan, [facility] [place] [facility] [address] [id number] [place] [address] Jan, [facility] [place] [facility] [address] [id number] [place] [address] Jan, [facility] [place] [facility] [address] [id number] [place] [address] Jan, [facility] [place] [facility] [address] [id number] [place] [address] Jan, [facility] [place] [facility] [address] [facility] [id number] [place] [address] Jan, [facility] [place] [facility] [address] [id number] [place] [address] Jan, [facility] [place] [facility] [address] [id number] [place] [address] Dec, [facility] [place] [facility] [address] [id number] [place] [address] 24 Dec, 2011 [facility] [place] [facility] [address] [id number] [place] [address] 10 Dec, 2011 [facility] [place] [facility] [address] [facility] [id number] [place] [address] 30 Nov, 2011 [facility] [place] [facility] [address] [id number] [place] [address] Nov, [facility] [place] [facility] [address] [id number] [place] [address] Nov, [facility] [place] [facility] [address] [id number] [place] [address] Nov, [facility] [place] [facility] [address] [facility] [id number] [place] [address] Oct, [facility] [place] [facility] [address] [id number] [place] [address] Oct, [facility] [place] [facility] [address] [id number] [place] [address] Oct, [facility] [place] [facility] [address] [id number] [place] [address] Sep, [facility] [place] [facility] [id number] [place] [address] Sep, [facility] [place] [facility] [address] [id number] [place] [address] Sep, [facility] [place] [facility] [address] [id number] [place] [address] Sep, [facility] [place] [facility] [address] [facility] [id number] [place] [address] Sep, [facility] [place] [facility] [address] [id number] [place] [address] Sep, [facility] [place] [facility] [address] [id number] [place] [address] August, [facility] [place] [facility] [address] [id number] [place] [address] Jul, [facility] [place] [facility] [address] [id number] [place] [address] Jul, [facility] [place] [facility] [address] [facility] [id number] [place] [address] Jul, [facility] [place] [facility] [address] [id number] [place] [address] 05 Jul, 2011 [facility] [place] [facility] [address] [id number] [place] [address] 04 Jul, 2011 [facility] [place] [facility] [address] [id number] [place] [address] 29 Jun, 2011 [facility] [place] [facility] [address] [id number] [place] [address] 27 Jun, 2011 [facility] [place] [facility] [address] [id number] [place] [address] Jun, [facility] [place] [facility] [address] [id number] [place] [address] Jun, [facility] [place] [facility] [address] [facility] [id number] [place] [address] Jun, [facility] [place] [facility] [address] [id number] [place] [address] May, [facility] [place] [facility] [address] [facility] [id number] [place] [address] May, [facility] [place] [facility] [address] [id number] [place] [address] May, [facility] [place] [facility] [address] [id number] [place] [address] May, [facility] [place] [facility] [address] [id number] [place] [address] May, [facility] [place] [facility] [address] [facility] [id number] [place] [address] May, [facility] [place] [facility] [address] [id number] [place] [address] May, [facility] [place] [facility] [address] [facility] [id number] [place] [address] Apr, [facility] [place] [facility] [address] [facility] [id number] [place] [address] 29 Mar, 2011 [facility] [place] [facility] [address] [id number] [place] [address] 13 Mar, 2011 [facility] [place] [facility] [address] [id number] [place] [address] 10 Mar, 2011 [facility] [place] [facility] [address] [id number] [place] [address] Mar, [facility] [place] [facility] [address] [id number] [place] [address] 08 Mar, 2011 [facility] [place] [facility] [address] [id number] [place] [address] 23 Feb, 2011 [facility] [place] [facility] [address] [id number] [place] [address] 14 Feb, 2011 [facility] [place] [facility] [address] [facility] [id number] [place] [address] 14 Feb, 2011 [facility] [place] [facility] [address] [id number] [place] [address] 14 Feb, 2011 [facility] [place] [facility] [address] [facility] [id number] [place] [address] Feb, [facility] [place] [facility] [address] [facility] [id number] [place] [address] Feb, [facility] [place] [facility] [address] [id number] [place] [address] Feb, [facility] [place] [facility] [address] [id number] [place] [address] Jan, [facility] [place] [facility] [address] [id number] [place] [address] 12 Dec, 2010 [facility] [place] [facility] [address] [id number] [place] [address] 11 Oct, 2010 [facility] [place] [facility] [address] [facility] [id number] [place] [address] Jun, [facility] [place] [facility] [address] [id number] [place] [address] 23 Mar, 2010 [facility] [address] [id number] [place] [address] 23 Mar, 2010 [facility] [place] [facility] [address] [id number] [place] [address] 16 Mar, 2010 [facility] [place] [facility] [address] [id number] [place] [address] 16 Mar, 2010 [facility] [place] [facility] [address] [id number] [place] [address] 15 Mar, 2010 [facility] [place] [facility] [address] [id number] [place] [address] 10 Mar, 2010 [facility] [place] [facility] [address] [id number] [place] [address] 10 Mar, 2010 [facility] [place] [facility] [address] [id number] [place] [address] 05 Mar, 2010 [facility] [address] [id number] [place] [address] 03 Mar, 2010 [facility] [place] [facility] [address] [id number] [place] [address] 02 Mar, 2010 [facility] [place] [facility] [address] [id number] [place] [address] Jan, [facility] [place] [facility] [address] [id number] [place] [address] Jan, [facility] [place] [facility] [address] [id number] [place] [address] Jan, [facility] [place] [facility] [address] [id number] [place] [address] Nov, [facility] [place] [facility] [address] [id number] [place] [address] Oct, [facility] [place] [facility] [address] [id number] [place] [address] Mar, [facility] [address] [id number] [address] Mar, [facility] [id number] [address] Mar, [facility] [address] [id number] [address] Mar, [facility] [id number] [address] Dec, [facility] [id number] [address] August, [facility] [id number] [place] [address] August, [facility] [id number] [address] Jul, [facility] [id number] [address] Jan, [facility] [id number] [address] Jan, IMMUNIZATIONS No Known Immunizations SOCIAL HISTORY Never Assessed REASON FOR VISIT bilateral hip injections. Consult Brennen Almendarez;Rika RT(R) PLAN OF CARE Activity Details Follow Up prn Reason: VITAL SIGNS Height 67 in 2017-01-14 Blood pressure systolic 122 mmHg 2017-01-14 Blood pressure diastolic 90 mmHg 2017-01-14 MEDICATIONS Unknown Medications RESULTS No Results PROCEDURES Procedure Date Ordered Result Body Site DRAIN/INJECT, JOINT/BURSA Jan 14, 2017 DEPO MEDROL 80 MG/ML Jan 14, 2017 INSTRUCTIONS MEDICATIONS ADMINISTERED No Known Medications [...]
--- OUTSIDE RECORDS SUMMARY | 2018-09-22 03:14 | XMS REPORT ---
Author Author FLORENTINEZEKIEL PUCKETT Organization [facility] Address [address] [place] [address] Care Team Providers Care Stitching Department Supervisor Name Role Phone DANICA LERMAY Unavailable PROBLEMS Type Condition ICD9-CM Code [id number] Code Onset Dates Condition Status SNOMED Code Problem Chronic gastritis without bleeding, unspecified gastritis type K29.50 Active 6892714 Problem Vitamin D deficiency E55.9 Active 71866110 Problem Osteoporosis M81.0 Active 22938340 Problem Unspecified abdominal pain R10.9 Active 256763152 Problem Fibromyalgia M79.7 Active 63242786 Problem Chronic pain syndrome G89.4 Active 435092142 Problem Trigger point with back pain M54.9 Active 023315482 Problem Chronic tension-type headache, not intractable G44.229 Active 069049240 Problem RUQ abdominal pain R10.11 Active 759422869 Problem Pancytopenia D61.818 Active 545107942 Problem Right sided sciatica M54.31 Active 21632097 Problem Chronic prescription opiate use Z79.891 Active 854738133 Problem Drug induced constipation K59.03 Active 938982473472715 Problem Leukopenia, unspecified type D72.819 Active 48372452 Problem Atrial fibrillation, unspecified type I48.91 Active 87181598 Problem Allergic rhinitis, unspecified allergic rhinitis type J30.9 Active 07374663 Problem Chronic obstructive pulmonary disease, unspecified COPD type J44.9 Active 34319029 Problem Hypothyroidism, unspecified hypothyroidism type E03.9 Active 91799188 Problem Other constipation K59.09 Active 004224068 Problem Porokeratosis Q82.8 Active 658752449 Problem 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 Active 204539789 Problem Allergy to intravenous contrast Z91.041 Active 466633811 Problem Vaginal atrophy N95.2 Active 430485494 Problem Major depression, recurrent F33.9 Active 99665952 Problem History of hepatitis C Z86.19 Active 05486687170566 Problem Hot flashes N95.1 Active 782869851 Problem Plantar fasciitis M72.2 Active 254262085 Problem Polyneuropathy associated with underlying disease G63 Active 874090406 Problem Primary insomnia F51.01 Active 8352314 Problem Low back pain M54.5 Active 967106477 ALLERGIES Substance Reaction Event Type Date Status CT Dye Unknown Non Drug Allergy Sep, Active ENCOUNTERS Encounter Location Date Diagnosis [facility] [id number] [place] [address] Jul, [facility] [id number] [place] [address] Jun, [facility] [id number] [place] [address] Jun, [facility] [id number] [place] [address] May, [facility] [id number] [place] [address] May, [facility] [id number] [place] [address] May, [facility] [id number] [place] [address] Apr, [facility] [id number] [place] [address] Apr, Hypothyroidism, unspecified hypothyroidism type E03.9 [facility] [id number] [place] [address] Apr, Hypothyroidism, unspecified hypothyroidism type E03.9 and Leukopenia, unspecified type D72.819 [facility] [id number] [place] [address] Mar, [facility] [id number] [place] [address] Mar, Leukopenia, unspecified type D72.819 [facility] [address] [address] Mar, Hypothyroidism, unspecified hypothyroidism type E03.9 and Low hemoglobin D64.9 [place] [address] [address] Mar, Hypothyroidism, unspecified hypothyroidism type E03.9 [place] [address] [address] Mar, Osteoporosis M81.0 ; Low hemoglobin D64.9 and Hypothyroidism, unspecified hypothyroidism type E03.9 [place] [address] [address] Mar, Hypothyroidism, unspecified hypothyroidism type E03.9 ; Bilirubin in urine R82.2 and Pancytopenia D61.818 [place] [address] [address] Feb, [facility] [address] [address] Feb, Cough R05 and Bronchitis J40 [facility] [place] [address] [address] 14 Feb, 2017 Other viral agents as the cause of diseases classified elsewhere B97.89 and Acute upper respiratory infection, unspecified J06.[address] [address] Feb, Fibromyalgia M79.7 ; Chronic pain syndrome G89.4 ; Hypothyroidism, unspecified hypothyroidism type E03.9 ; Primary insomnia F51.01 ; Osteoporosis M81.0 ; Vision abnormalities H53.9 ; Pancytopenia D61.818 ; BMI 28.0-28.9,adult Z68.28 and Encounter for immunization Z23 [address] [address] Feb, Neuroma D36.10 and Capsulitis of right foot M77.51 [place] [address] [address] Feb, [facility] [id number] [place] [address] Feb, Hypothyroidism, unspecified hypothyroidism type E03.9 [facility] [id number] [place] [address] Jan, [facility] [id number] [place] [address] Jan, Atrial fibrillation, unspecified type I48.91 [facility] [id number] [place] [address] Jan, [facility] [id number] [place] [address] Jan, Fibromyalgia M79.7 ; Atrial fibrillation, unspecified type I48.91 ; Pain of left hand M79.642 ; Pain in right hand M79.641 ; Chronic prescription opiate use Z79.891 ; Chronic pain syndrome G89.4 ; Elevated fasting glucose R73.01 and Hypothyroidism, unspecified hypothyroidism type E03.9 [facility] [id number] [place] [address] Jan, [facility] [id number] [place] [address] Dec, Trochanteric bursitis of both hips M70.61 [facility] [id number] [place] [address] Dec, [facility] [id number] [place] [address] Dec, [facility] [id number] [place] [address] Nov, [facility] [id number] [place] [address] Nov, Unilateral headache R51 [facility] [id number] [place] [address] Nov, [facility] [id number] [place] [address] Oct, Unilateral headache R51 ; 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 and Allergy to intravenous contrast Z91.041 [facility] [id number] [place] [address] Oct, [facility] [id number] [place] [address] Oct, [facility] [id number] [place] [address] Sep, Hypothyroidism, unspecified hypothyroidism type E03.9 [place] [address] [address] Sep, Hypothyroidism, unspecified hypothyroidism type E03.9 and Bilirubin in urine R82.2 [place] [id number] [place] [address] Sep, Trochanteric bursitis of both hips M70.61 [facility] [id number] [place] [address] Sep, Hypothyroidism, unspecified hypothyroidism type E03.9 ; Dysuria R30.0 ; Chronic tension-type headache, not intractable G44.229 and Drug induced constipation K59.03 [facility] [id number] [place] [address] Sep, [facility] [id number] [place] [address] Sep, [facility] [id number] [place] [address] August, [facility] [id number] [place] [address] Jul, [facility] [id number] [place] [address] Jul, Trochanteric bursitis of right hip M70.61 [facility] [id number] [place] [address] Jul, Hypothyroidism, unspecified hypothyroidism type E03.9 [facility] [id number] [place] [address] Jul, Fibromyalgia M79.7 ; Chronic pain syndrome G89.4 ; Hypothyroidism, unspecified hypothyroidism type E03.9 and Other constipation K59.09 [facility] [id number] [place] [address] Jun, Swollen tonsil J35.1 and Strep throat J02.0 [place] [address] [address] Jun, [place] [address] [address] Jun, Acute maxillary sinusitis J01.00 [place] [address] [address] Jun, Hypothyroidism, unspecified hypothyroidism type E03.9 [facility] [id number] [place] [address] Jun, Chronic pain syndrome G89.4 ; Fibromyalgia M79.7 ; Hypothyroidism, unspecified hypothyroidism type E03.9 and Chronic prescription opiate use Z79.891 [place] [id number] [place] [address] May, [facility] [id number] [place] [address] Apr, Hypothyroidism, unspecified hypothyroidism type E03.9 [place] [address] [address] Apr, [facility] [address] [address] Apr, Lipid screening Z13.220 and Hypothyroidism, unspecified hypothyroidism type E03.9 [place] [address] [place] [address] Apr, [facility] [id number] [place] [address] Mar, Trochanteric bursitis of both hips M70.61 [facility] [address] [address] Mar, [place] [address] [address] Mar, Plantar fasciitis M72.2 and Porokeratosis Q82.8 [place] [address] [address] Feb, Lipid screening Z13.220 ; Vitamin D deficiency E55.9 and Hypothyroidism, unspecified hypothyroidism type E03.9 [place] [id number] [place] [address] Feb, Chronic pain syndrome G89.4 ; Hypothyroidism, unspecified hypothyroidism type E03.9 ; Pancytopenia D61.818 ; Vaginal atrophy N95.2 ; Chronic gastritis without bleeding, unspecified gastritis type K29.50 ; Vitamin D deficiency E55.9 ; Chronic prescription opiate use Z79.891 ; Adverse effect of other opioids, initial encounter T40.2X5A ; Drug induced constipation K59.03 ; Lipid screening Z13.220 and Encounter for immunization Z23 [place] [id number] [place] [address] Feb, [place] [id number] [place] [address] Feb, Ingrown toenail L60.0 [place] [address] [address] Jan, [place] [id number] [place] [address] Jan, Trochanteric bursitis of both hips M70.61 [place] [id number] [place] [address] Jan, [facility] [id number] [place] [address] Jan, [facility] [id number] [place] [address] Jan, [facility] [id number] [place] [address] Jan, Right sided sciatica M54.31 [facility] [id number] [place] [address] 23 Dec, 2015 Onychomycosis B35.1 [facility] [id number] [place] [address] Dec, [facility] [id number] [place] [address] Dec, [facility] [id number] [place] [address] Dec, [facility] [id number] [place] [address] Dec, Osteoarthritis of right hip, unspecified osteoarthritis type M16.11 and Bursitis of right hip M70.71 [facility] [id number] [place] [address] Nov, [facility] [id number] [place] [address] Nov, [facility] [id number] [place] [address] Nov, [facility] [id number] [place] [address] 16 Nov, 2015 Hypothyroidism, unspecified hypothyroidism type E03.9 ; Vitamin D deficiency E55.9 and History of hepatitis C Z86.19 [facility] [address] [address] Nov, Right upper quadrant pain R10.11 ; History of hepatitis C Z86.19 and Low back pain M54.5 [facility] [id number] [place] [address] Oct, Trochanteric bursitis, right hip M70.61 [facility] [id number] [place] [address] Oct, [facility] [id number] [place] [address] Oct, [facility] [id number] [place] [address] Oct, Trochanteric bursitis of both hips M70.61 and Right sided sciatica M54.31 [place] [id number] [place] [address] Oct, Trochanteric bursitis of both hips M70.61 [facility] [id number] [place] [address] Oct, RUQ abdominal pain R10.11 [place] [id number] [place] [address] Oct, Sciatic leg pain M54.30 [place] [id number] [place] [address] Oct, RUQ abdominal pain R10.11 [facility] [id number] [place] [address] Oct, RUQ abdominal pain R10.11 ; History of hepatitis C Z86.19 and Trigger point with back pain M54.9 [facility] [id number] [place] [address] Sep, [facility] [id number] [place] [address] Sep, Right sided sciatica M54.31 [facility] [id number] [place] [address] Sep, Hypothyroidism, unspecified hypothyroidism type E03.9 and Vitamin D deficiency E55.9 [place] [id number] [place] [address] Sep, Plantar fasciitis M72.2 and Porokeratosis Q82.8 [place] [id number] [place] [address] Sep, Hypothyroidism, unspecified hypothyroidism type E03.9 ; Chronic pain syndrome G89.4 ; Polyneuropathy associated with underlying disease G63 and Vitamin D deficiency E55.9 [place] [id number] [place] [address] August, [place] [id number] [place] [address] Jul, Plantar fasciitis M72.2 [place] [address] [address] Jul, Trochanteric bursitis, right hip M70.61 [place] [id number] [place] [address] Jul, Hypothyroidism, unspecified hypothyroidism type E03.9 [place] [id number] [place] [address] Jul, Hypothyroidism, unspecified hypothyroidism type E03.9 ; Chronic pain syndrome G89.4 and Polyneuropathy associated with underlying disease G63 [place] [id number] [place] [address] Jun, Trochanteric bursitis of both hips M70.61 [place] [address] [address] Jun, Vitamin D deficiency E55.9 ; Osteoporosis M81.0 ; Low back pain M54.5 and Plantar fasciitis M72.2 [place] [id number] [place] [address] May, Vitamin D deficiency E55.9 and Hypothyroidism, unspecified hypothyroidism type E03.9 [facility] [id number] [place] [address] May, Acute maxillary sinusitis J01.00 [facility] [id number] [place] [address] 18 May, 2015 Osteoporosis M81.0 and Hypothyroidism, unspecified hypothyroidism type E03.9 [place] [id number] [place] [address] May, Osteoporosis M81.0 [facility] [id number] [place] [address] May, [place] [id number] [place] [address] Apr, [place] [id number] [place] [address] Apr, Trochanteric bursitis of both hips M70.61 [place] [id number] [place] [address] Apr, Hypothyroidism, unspecified hypothyroidism type E03.9 [place] [id number] [place] [address] Apr, Chronic pain syndrome G89.4 ; Bilateral low back pain with sciatica, sciatica laterality unspecified M54.40 ; Pain in right hip M25.551 ; Pain in left hip M25.552 ; Chronic prescription opiate use Z79.899 ; Primary insomnia F51.01 and Hypothyroidism, unspecified hypothyroidism type E03.9 [place] [id number] [place] [address] Mar, [place] [id number] [place] [address] Feb, [facility] [id number] [place] [address] Feb, Chronic pain syndrome G89.4 and Major depression F32.9 [place] [id number] [place] [address] Feb, Fatigue R53.83 [place] [id number] [place] [address] Feb, History of fracture Z87.81 [place] [address] [address] Feb, Major depression, recurrent F33.9 and Generalized anxiety disorder F41.1 [place] [id number] [place] [address] Feb, [place] [id number] [place] [address] Jan, Hypothyroidism, unspecified hypothyroidism type E03.9 [place] [id number] [place] [address] Jan, Abdominal pain R10.9 and Hypothyroidism, unspecified hypothyroidism type E03.9 [place] [id number] [place] [address] Jan, Abdominal pain R10.9 [place] [id number] [place] [address] Jan, Hypothyroidism, unspecified hypothyroidism type E03.9 [place] [id number] [place] [address] Jan, [place] [id number] [place] [address] Jan, 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 and Hypothyroidism, unspecified hypothyroidism type E03.9 [place] [id number] [place] [address] Jan, 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 ; Abdominal pain R10.9 ; Dyspareunia N94.1 ; Encounter for immunization Z23 ; History of fracture Z87.81 ; Fatigue R53.83 ; Throat fullness R68.89 ; Bruises easily R23.8 ; Hot flashes N95.1 ; Depression F32.9 and Vaginal atrophy N95.2 [facility] [id number] [place] [address] Jan, Hypothyroidism, unspecified hypothyroidism type E03.9 [facility] [address] [address] Jan, Unspecified abdominal pain R10.9 ; Chronic obstructive pulmonary disease, unspecified COPD type J44.9 ; Allergic rhinitis, unspecified allergic rhinitis type J30.9 ; Chronic pain syndrome G89.4 ; Hypothyroidism, unspecified hypothyroidism type E03.9 ; Chest pain, unspecified chest pain type R07.9 and Plantar fasciitis M72.2 [place] [address] [address] Jan, Trochanteric bursitis of both hips M70.61 [place] [address] [address] Dec, [place] [address] [address] Nov, [facility] [id number] [place] [address] Nov, [facility] [address] [address] Nov, Constipation 564.00 [facility] [id number] [place] [address] Oct, Chronic pain 338.29 and Hypothyroidism 244.9 [facility] [id number] [place] [address] Oct, [facility] [id number] [place] [address] Sep, [facility] [address] [place] [address] 17 Sep, 2014 [facility] [id number] [place] [address] Sep, [facility] [address] [place] [address] Sep, [facility] [id number] [place] [address] Sep, [facility] [id number] [place] [address] Sep, [facility] [id number] [place] [address] Sep, COPD exacerbation 491.21 ; Chronic pain 338.29 ; Hypothyroidism 244.9 and Pancytopenia 284.19 [facility] [id number] [place] [address] August, [facility] [address] [place] [address] Jul, [facility] [id number] [place] [address] Jul, [facility] [address] [place] [address] Jun, [facility] [id number] [place] [address] Jun, [facility] [id number] [address] Jun, [facility] [id number] [place] [address] Jun, [facility] [id number] [place] [address] Jun, [facility] [id number] [address] May, [facility] [place] [facility] [address] [id number] [place] [address] May, 2014 [facility] [place] [facility] [address] [id number] [place] [address] May, 2014 [facility] [place] [facility] [address] [id number] [place] [address] May, 2014 [facility] [place] [facility] [address] [id number] [place] [address] May, 2014 [facility] [place] [facility] [address] [id number] [place] [address] May, 2014 [facility] [place] [facility] [address] [id number] [place] [address] May, 2014 [facility] [place] [facility] [address] [facility] [id number] [place] [address] May, 2014 [facility] [place] [facility] [address] [id number] [place] [address] May, 2014 [facility] [place] [facility] [address] [id number] [place] [address] May, [facility] [place] [facility] [address] [facility] [id number] [place] [address] May, [facility] [place] [facility] [address] [id number] [place] [address] May, 2014 [facility] [place] [facility] [address] [id number] [place] [address] May, [facility] [place] [facility] [address] [id number] [place] [address] Apr, [facility] [place] [facility] [address] [id number] [place] [address] Apr, [facility] [place] [facility] [address] [facility] [id number] [place] [address] Apr, [facility] [place] [facility] [address] [id number] [place] [address] Apr, [facility] [address] [id number] [place] [address] Apr, [facility] [place] [facility] [address] [id number] [place] [address] Apr, [facility] [address] [id number] [place] [address] Apr, [facility] [place] [facility] [address] [id number] [place] [address] Mar, [facility] [address] [id number] [place] [address] Mar, [facility] [address] [id number] [place] [address] Mar, [facility] [address] [id number] [place] [address] Mar, [facility] [address] [id number] [place] [address] Mar, [facility] [place] [facility] [address] [id number] [place] [address] Mar, [facility] [address] [id number] [place] [address] Feb, [facility] [place] [facility] [address] [id number] [place] [address] Feb, [facility] [place] [facility] [address] [id number] [place] [address] Feb, [facility] [place] [facility] [address] [id number] [place] [address] Feb, [facility] [place] [facility] [address] [id number] [place] [address] Feb, [facility] [place] [facility] [address] [id number] [place] [address] Feb, [facility] [place] [facility] [address] [id number] [place] [address] Jan, [facility] [place] [facility] [address] [id number] [place] [address] Jan, [facility] [place] [facility] [address] [id number] [place] [address] Jan, [facility] [place] [facility] [address] [id number] [place] [address] Jan, [facility] [place] [facility] [address] [id number] [place] [address] Jan, [facility] [place] [facility] [address] [id number] [place] [address] Jan, [facility] [place] [facility] [address] [id number] [place] [address] Jan, [facility] [place] [facility] [address] [id number] [place] [address] Jan, [facility] [place] [facility] [address] [id number] [place] [address] Dec, [facility] [place] [facility] [address] [id number] [place] [address] 25 Dec, 2013 [facility] [place] [facility] [address] [id number] [place] [address] 23 Dec, 2013 [facility] [place] [facility] [address] [id number], [place] [address] 23 Dec, 2013 [facility] [place] [facility] [address] [id number] [place] [address] 13 Dec, 2013 [facility] [place] [facility] [address] [id number] [place] [address] 10 Dec, 2013 [facility] [place] [facility] [address] [id number], [place] [address] 10 Dec, 2013 [facility] [place] [facility] [address] [id number], [place] [address] Nov, [facility] [place] [facility] [address] [id number] [place] [address] Nov, [facility] [place] [facility] [address] [id number] [place] [address] Oct, [facility] [place] [facility] [address] [id number] [place] [address] Oct, [facility] [place] [facility] [address] [id number] [place] [address] Oct, [facility] [place] [facility] [address] [id number] [place] [address] Oct, [facility] [place] [facility] [address] [id number] [place] [address] Sep, [facility] [place] [facility] [address] [id number] [place] [address] Sep, [facility] [place] [facility] [address] [id number] [place] [address] Sep, [facility] [place] [facility] [address] [id number] [place] [address] Sep, [facility] [place] [facility] [address] [id number] [place] [address] Sep, [facility] [place] [facility] [address] [id number] [place] [address] Sep, [facility] [place] [facility] [address] [id number] [place] [address] Sep, [facility] [place] [facility] [address] [id number] [place] [address] Sep, [facility] [place] [facility] [address] [id number] [place] [address] August, [facility] [place] [facility] [address] [id number] [place] [address] August, [facility] [place] [facility] [address] [id number] [place] [address] August, [facility] [address] [id number] [place] [address] August, [facility] [place] [facility] [address] [id number] [place] [address] Jul, [facility] [place] [facility] [address] [id number] [place] [address] Jul, [facility] [place] [facility] [address] [id number] [place] [address] Jul, [facility] [place] [facility] [address] [id number] [place] [address] 24 Jul, 2013 [facility] [place] [facility] [address] [id number] [place] [address] 17 Jul, 2013 [facility] [place] [facility] [address] [id number] [place] [address] 16 Jul, 2013 [facility] [address] [id number] [place] [address] Jul, [facility] [place] [facility] [address] [id number] [place] [address] Jul, [facility] [place] [facility] [address] [id number] [place] [address] 18 Jun, 2013 [facility] [place] [facility] [address] [id number] [place] [address] Jun, [facility] [place] [facility] [address] [id number] [place] [address] Jun, [facility] [place] [facility] [address] [id number] [place] [address] Jun, [facility] [place] [facility] [address] [id number] [place] [address] Jun, [facility] [place] [facility] [address] [id number] [place] [address] Jun, [facility] [place] [facility] [address] [id number] [place] [address] Jun, [facility] [place] [facility] [address] [id number] [place] [address] Jun, [facility] [place] [facility] [address] [id number] [place] [address] May, [facility] [place] [facility] [address] [id number] [place] [address] May, [facility] [place] [facility] [address] [id number] [place] [address] Apr, [facility] [place] [facility] [address] [id number] [place] [address] Apr, [facility] [place] [facility] [address] [id number] [place] [address] Mar, [facility] [place] [facility] [address] [id number] [place] [address] 24 Mar, 2013 [facility] [place] [facility] [address] [id number] [place] [address] Mar, [facility] [place] [facility] [address] [id number] [place] [address] 18 Mar, 2013 [facility] [place] [facility] [address] [id number] [place] [address] 18 Mar, 2013 [facility] [place] [facility] [address] [id number] [place] [address] 17 Mar, 2013 [facility] [place] [facility] [address] [id number] [place] [address] 17 Mar, 2013 [facility] [place] [facility] [address] [id number] [place] [address] Feb, [facility] [place] [facility] [address] [id number] [place] [address] Feb, [facility] [place] [facility] [address] [id number] [place] [address] Feb, [facility] [address] [id number] [place] [address] Feb, [facility] [place] [facility] [address] [id number] [place] [address] Feb, [facility] [address] [id number] [place] [address] Feb, [facility] [place] [facility] [address] [id number] [place] [address] 26 Dec, 2012 [facility] [place] [facility] [address] [id number] [place] [address] 18 Dec, 2012 [facility] [place] [facility] [address] [id number] [place] [address] Dec, [facility] [address] [id number] [place] [address] Dec, [facility] [place] [facility] [address] [id number] [place] [address] Dec, [facility] [place] [facility] [address] [id number] [place] [address] Nov, [facility] [place] [facility] [address] [id number] [place] [address] Nov, [facility] [place] [facility] [address] [id number] [place] [address] Oct, [facility] [place] [facility] [address] [id number] [place] [address] August, [facility] [place] [facility] [address] [id number] [place] [address] August, [facility] [place] [facility] [address] [id number] [place] [address] August, [facility] [place] [facility] [address] [id number] [place] [address] Jul, [facility] [place] [facility] [address] [id number] [place] [address] Jul, [facility] [address] [id number] [place] [address] Jul, [facility] [address] [id number] [place] [address] Jun, [facility] [address] [id number] [place] [address] Jun, [facility] [address] [id number] [place] [address] Jun, [facility] [address] [id number] [place] [address] Jun, [facility] [address] [id number] [place] [address] Jun, [facility] [address] [id number] [place] [address] Jun, [facility] [address] [id number] [place] [address] Jun, [facility] [address] [id number] [place] [address] May, [facility] [place] [facility] [address] [id number] [place] [address] May, [facility] [place] [facility] [address] [id number], [place] [address] May, [facility] [place] [facility] [address] [id number] [place] [address] May, [facility] [place] [facility] [address] [id number] [place] [address] Apr, [facility] [place] [facility] [address] [id number] [place] [address] Apr, [facility] [place] [facility] [address] [id number], [place] [address] Apr, [facility] [place] [facility] [address] [id number] [place] [address] Mar, [facility] [place] [facility] [address] [id number] [place] [address] Mar, [facility] [place] [facility] [address] [facility] [id number] [place] [address] Mar, [facility] [place] [facility] [address] [id number] [place] [address] Mar, [facility] [place] [facility] [address] [id number] [place] [id number], [place] [address] Mar, [facility] [place] [facility] [address] [id number] [place] [address] Mar, [facility] [place] [facility] [id number], [place] [address] Mar, [facility] [place] [facility] [address] [facility] [id number] [place] [address] Mar, [facility] [place] [facility] [address] [id number], [place] [address] Feb, [facility] [place] [facility] [address] [facility] [id number], [place] [address] Feb, [facility] [place] [facility] [address] [facility] [id number], [place] [address] Feb, [facility] [place] [facility] [address] [facility] [id number], [place] [address] Jan, [facility] [place] [facility] [address] [id number], [place] [address] Jan, [facility] [place] [facility] [address] [facility] [id number], [place] [address] Jan, [facility] [place] [facility] [address] [facility] [id number], [place] [address] Jan, [facility] [place] [facility] [address] [id number] [place] [address] Jan, [facility] [place] [facility] [address] [id number] [place] [address] 08 Jan, 2012 [facility] [place] [facility] [address] [id number] [place] [address] Jan, [facility] [place] [facility] [address] [id number] [place] [address] Dec, [facility] [place] [facility] [address] [id number] [place] [address] 24 Dec, 2011 [facility] [place] [facility] [address] [id number] [place] [address] Dec, [facility] [place] [facility] [address] [id number] [place] [address] Nov, [facility] [place] [facility] [address] [id number] [place] [address] Nov, [facility] [place] [facility] [address] [id number] [place] [address] Nov, [facility] [place] [facility] [address] [id number] [place] [address] Nov, [facility] [place] [facility] [address] [id number] [place] [address] Oct, [facility] [place] [facility] [address] [id number] [place] [address] Oct, [facility] [place] [facility] [address] [id number] [place] [address] Oct, [facility] [place] [facility] [address] [id number] [place] [address] Sep, [facility] [place] [facility] [address] [id number] [place] [address] 16 Sep, 2011 [facility] [place] [facility] [address] [id number] [place] [address] Sep, [facility] [place] [facility] [address] [id number] [place] [address] Sep, [facility] [place] [facility] [address] [id number] [place] [address] Sep, [facility] [place] [facility] [address] [id number] [place] [address] Sep, [facility] [place] [facility] [address] [id number] [place] [address] August, [facility] [place] [facility] [address] [id number] [place] [address] Jul, [facility] [place] [facility] [address] [id number] [place] [address] Jul, [facility] [place] [facility] [address] [id number] [place] [address] Jul, [facility] [place] [facility] [address] [id number] [place] [address] Jul, [facility] [place] [facility] [address] [id number] [place] [address] Jul, [facility] [place] [facility] [address] [id number] [place] [address] 29 Jun, 2011 [facility] [place] [facility] [address] [id number], [place] [address] Jun, [facility] [place] [facility] [address] [id number], [place] [address] 15 Jun, 2011 [facility] [place] [facility] [address] [id number] [place] [address] 15 Jun, 2011 [facility] [place] [facility] [address] [id number], [place] [address] 09 Jun, 2011 [facility] [place] [facility] [address] [id number] [place] [address] May, [facility] [place] [facility] [address] [id number] [place] [address] 09 May, 2011 [facility] [place] [facility] [address] [id number] [place] [address] May, 2011 [facility] [place] [facility] [address] [id number] [place] [address] 06 May, 2011 [facility] [place] [facility] [address] [id number] [place] [address] May, 2011 [facility] [place] [facility] [address] [id number] [place] [address] May, [facility] [place] [facility] [address] [id number] [place] [address] May, [facility] [place] [facility] [address] [id number] [place] [address] Apr, [facility] [place] [facility] [address] [id number] [place] [address] Mar, [facility] [place] [facility] [address] [id number] [place] [address] Mar, [facility] [place] [facility] [address] [id number] [place] [address] Mar, [facility] [place] [facility] [address] [facility] [id number] [place] [address] Mar, [facility] [place] [facility] [address] [id number] [place] [address] 08 Mar, 2011 [facility] [place] [facility] [address] [id number] [place] [address] 23 Feb, 2011 [facility] [place] [facility] [address] [id number] [place] [address] 14 Feb, 2011 [facility] [place] [facility] [address] [id number] [place] [address] 14 Feb, 2011 [facility] [place] [facility] [address] [id number] [place] [address] 14 Feb, 2011 [facility] [place] [facility] [address] [id number] [place] [address] 07 Feb, 2011 [facility] [place] [facility] [address] [id number] [place] [address] 04 Feb, 2011 [facility] [place] [facility] [address] [id number] [place] [address] 04 Feb, 2011 [facility] [place] [facility] [address] [id number] [place] [address] 10 Jan, 2011 [facility] [place] [facility] [address] [id number] [place] [address] 12 Dec, 2010 [facility] [place] [facility] [address] [id number] [place] [address] Oct, [facility] [place] [facility] [address] [id number] [place] [address] Jun, [facility] [place] [facility] [address] [id number] [place] [address] 23 Mar, 2010 [facility] [place] [facility] [address] [id number] [place] [address] 23 Mar, 2010 [facility] [place] [facility] [address] [id number] [place] [address] 16 Mar, 2010 [facility] [place] [facility] [address] [id number] [place] [address] 16 Mar, 2010 [facility] [place] [facility] [address] [id number], [place] [address] 15 Mar, 2010 [facility] [place] [facility] [address] [id number] [place] [address] 10 Mar, 2010 [facility] [place] [facility] [address] [id number] [place] [address] 10 Mar, 2010 [facility] [place] [facility] [address] [id number] [place] [address] 05 Mar, 2010 [facility] [place] [facility] [address] [id number] [place] [address] 03 Mar, 2010 [facility] [address] [id number] [place] [address] Mar, [facility] [address] [id number] [place] [address] Jan, [facility] [address] [id number] [place] [address] Jan, [facility] [address] [id number] [place] [address] Jan, [facility] [address] [id number] [place] [address] Nov, [facility] [address] [id number] [place] [address] Oct, [facility] [address] [id number] [place] [address] 31 Mar, 2009 [facility] [address] [id number] [place] [address] Mar, [facility] [address] [id number] [place] [address] 17 Mar, 2009 [facility] [address] [facility] [id number] [place] [address] 17 Mar, 2009 [facility] [address] [id number] [place] [address] 17 Dec, 2008 [facility] [place] [facility] [address] [id number], [place] [address] August, [facility] [place] [facility] [address] [id number], [place] [address] August, [facility] [place] [facility] [address] [facility] [id number], [place] [address] 15 Jul, 2008 [facility] [address] [id number], [place] [address] Jan, [facility] [address] [facility] [id number] [place] [address] Jan, IMMUNIZATIONS No Known Immunizations SOCIAL HISTORY Never Assessed REASON FOR VISIT Pain management (chronic) -- zafar gatica PLAN OF CARE Activity Details Follow Up 3 Months Reason:Chronic pain VITAL SIGNS Height 67 in 2016-10-08 Weight 180.0 lbs 2016-10-08 Temperature 97.6 degrees Fahrenheit 2016-10-08 Heart Rate 78 bpm 2016-10-08 Respiratory Rate 18 2016-10-08 BMI 28.19 kg/m2 2016-10-08 Blood pressure systolic 126 mmHg 2016-10-08 Blood pressure diastolic 72 mmHg 2016-10-08 MEDICATIONS Medication Instructions Dosage Frequency Start Date End Date Duration Status Movantik 25 MG Orally Once a day 1 tablet in the morning 24h Sep, Dec, 30 day(s) Active Hydrocodone-Acetaminophen 10-325 MG Orally 2 times a day 1 tablet as needed 12h Feb, 28 days Active Polyethylene Glycol 3350 0 Orally Once a day 1 capful with 8 oz liquid 24h Feb, Active Premarin 0.625 MG/GM Vaginal Daily x 2 weeks then decrease to 2 days per week 0.5 gram Feb, Active Flonase 50 MCG/ACT Nasally Once a day 1 spray in each nostril 24h Sep, Active Levothyroxine Sodium 300 MCG Orally Once a day 1 tablet 24h Sep, Active RESULTS Name Result Date Reference Range TSH 2016-10-08 TSH 107.200 0.450-4.500 UA LONG DIP (IN HOUSE) 2016-10-08 Lot # [id number] Exp date 08/16/2017 Clarity clear Color yellow Odor no GLU negative DEV 1+ KET negative SG >=1.030 BLO negative pH 5.5 Protein trace URO 1.0 NIT negative MYLES negative Lot # Exp date PROCEDURES Procedure Date Ordered Result Body Site URINALYSIS, AUTO, W/O SCOPE October 08, 2016 ASSAY THYROID STIM HORMONE October 08, 2016 VENIPUNCT, ROUTINE* October 08, 2016 INSTRUCTIONS MEDICATIONS ADMINISTERED No Known Medications MEDICAL [...]
--- OUTSIDE RECORDS SUMMARY | 2018-09-22 03:15 | XMS REPORT ---
Author Author TAMI PALACIOS Organization [facility] Address [address] [place] [address] Care Team Providers Care Supervisor Finishing Name Role Phone TAMI PALACIOS Unavailable PROBLEMS Type Condition ICD9-CM Code BME19-NX Code Onset Dates Condition Status SNOMED Code Problem Chronic gastritis without bleeding, unspecified gastritis type K29.50 Active 1093886 Problem Vitamin D deficiency E55.9 Active 77696055 Problem Osteoporosis M81.0 Active 19117933 Problem Unspecified abdominal pain R10.9 Active 631342137 Problem Fibromyalgia M79.7 Active 30948591 Problem Chronic pain syndrome G89.4 Active 510069120 Problem Trigger point with back pain M54.9 Active 287369063 Problem Chronic tension-type headache, not intractable G44.229 Active 714084064 Problem RUQ abdominal pain R10.11 Active 796672833 Problem Pancytopenia D61.818 Active 647211326 Problem Right sided sciatica M54.31 Active 64451330 Problem Chronic prescription opiate use Z79.891 Active 390390848 Problem Drug induced constipation K59.03 Active 708827665746783 Problem Leukopenia, unspecified type D72.819 Active 89483985 Problem Atrial fibrillation, unspecified type I48.91 Active 59773554 Problem Allergic rhinitis, unspecified allergic rhinitis type J30.9 Active 40267423 Problem Chronic obstructive pulmonary disease, unspecified COPD type J44.9 Active 49626617 Problem Hypothyroidism, unspecified hypothyroidism type E03.9 Active 09758136 Problem Other constipation K59.09 Active 366932392 Problem Porokeratosis Q82.8 Active 312988100 Problem 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 Active 175222627 Problem Allergy to intravenous contrast Z91.041 Active 358628880 Problem Vaginal atrophy N95.2 Active 981221891 Problem Major depression, recurrent F33.9 Active 33221162 Problem History of hepatitis C Z86.19 Active 54451684806100 Problem Hot flashes N95.1 Active 892952213 Problem Plantar fasciitis M72.2 Active 417812650 Problem Polyneuropathy associated with underlying disease G63 Active 468310992 Problem Primary insomnia F51.01 Active 2225943 Problem Low back pain M54.5 Active 881406748 ALLERGIES No Information ENCOUNTERS Encounter Location Date Diagnosis [facility] [id number] [address] Jul, [facility] [id number] [place] [address] Jul, [facility] [id number] [place] [address] Jun, [facility] [id number] [place] [address] May, [facility] [id number] [place] [address] May, [facility] [id number] [place] [address] May, [facility] [id number] [place] [address] Apr, [facility] [id number] [place] [address] Apr, Hypothyroidism, unspecified hypothyroidism type E03.9 [facility] [address] [place] [address] Apr, Hypothyroidism, unspecified hypothyroidism type E03.9 and Leukopenia, unspecified type D72.819 [facility] [address] [address] Mar, [facility] [id number] [place] [address] Mar, Leukopenia, unspecified type D72.819 [facility] [id number] [place] [address] Mar, Hypothyroidism, unspecified hypothyroidism type E03.9 and Low hemoglobin D64.9 [id number] [place] [address] Mar, Hypothyroidism, unspecified hypothyroidism type E03.9 [facility] [id number] [place] [address] Mar, Osteoporosis M81.0 ; Low hemoglobin D64.9 and Hypothyroidism, unspecified hypothyroidism type E03.[address] [address] Mar, Hypothyroidism, unspecified hypothyroidism type E03.9 ; Bilirubin in urine R82.2 and Pancytopenia D61.[address] [address] Feb, [facility] [address] [address] Feb, Cough R05 and Bronchitis J40 [facility] [address] [address] 14 Feb, 2017 Other viral agents as the cause of diseases classified elsewhere B97.89 and Acute upper respiratory infection, unspecified J06.9 [id number] [place] [address] Feb, Fibromyalgia M79.7 ; Chronic pain syndrome G89.4 ; Hypothyroidism, unspecified hypothyroidism type E03.9 ; Primary insomnia F51.01 ; Osteoporosis M81.0 ; Vision abnormalities H53.9 ; Pancytopenia D61.818 ; BMI 28.0-28.9,adult Z68.28 and Encounter for immunization Z23 [address] [address] Feb, Neuroma D36.10 and Capsulitis of right foot M77.51 [id number] [place] [address] Feb, [address] [place] [address] Feb, Hypothyroidism, unspecified hypothyroidism type E03.9 [facility] [id number] [place] [address] Jan, [facility] [id number] [place] [address] Jan, Atrial fibrillation, unspecified type I48.91 [facility] [id number] [place] [address] Jan, [facility] [id number] [place] [address] Jan, Fibromyalgia M79.7 ; Atrial fibrillation, unspecified type I48.91 ; Pain of left hand M79.642 ; Pain in right hand M79.641 ; Chronic prescription opiate use Z79.891 ; Chronic pain syndrome G89.4 ; Elevated fasting glucose R73.01 and Hypothyroidism, unspecified hypothyroidism type E03.9 [facility] [id number] [place] [address] Jan, [facility] [id number] [place] [address] Dec, Trochanteric bursitis of both hips M70.61 [facility] [id number] [place] [address] Dec, [facility] [id number] [place] [address] Dec, [facility] [id number] [place] [address] Nov, [facility] [id number] [place] [address] Nov, Unilateral headache R51 [facility] [address] [place] [address] Nov, [facility] [address] [place] [address] [address] Oct, Unilateral headache R51 ; 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 and Allergy to intravenous contrast Z91.041 [facility] [address] [address] Oct, [facility] [address] [address] Oct, [facility] [address] [address] Sep, Hypothyroidism, unspecified hypothyroidism type E03.9 [place] [address] [address] Sep, Hypothyroidism, unspecified hypothyroidism type E03.9 and Bilirubin in urine R82.2 [place] [address] [address] Sep, Trochanteric bursitis of both hips M70.61 [place] [address] [address] Sep, Hypothyroidism, unspecified hypothyroidism type E03.9 ; Dysuria R30.0 ; Chronic tension-type headache, not intractable G44.229 and Drug induced constipation K59.03 [facility] [id number] [place] [address] Sep, [facility] [id number] [place] [address] Sep, [facility] [id number] [place] [address] August, [facility] [address] [address] Jul, [facility] [address] [address] Jul, Trochanteric bursitis of right hip M70.61 [place] [address] [address] Jul, Hypothyroidism, unspecified hypothyroidism type E03.9 [facility] [id number] [place] [address] Jul, Fibromyalgia M79.7 ; Chronic pain syndrome G89.4 ; Hypothyroidism, unspecified hypothyroidism type E03.9 and Other constipation K59.09 [facility] [id number] [place] [address] Jun, Swollen tonsil J35.1 and Strep throat J02.0 [facility] [address] [address] Jun, [facility] [address] [address] Jun, Acute maxillary sinusitis J01.00 [facility] [id number] [place] [address] Jun, Hypothyroidism, unspecified hypothyroidism type E03.9 [facility] [id number] [place] [address] Jun, Chronic pain syndrome G89.4 ; Fibromyalgia M79.7 ; Hypothyroidism, unspecified hypothyroidism type E03.9 and Chronic prescription opiate use Z79.891 [facility] [id number] [place] [address] May, [facility] [id number] [place] [address] Apr, Hypothyroidism, unspecified hypothyroidism type E03.9 [facility] [id number] [place] [address] Apr, [facility] [address] [address] Apr, Lipid screening Z13.220 and Hypothyroidism, unspecified hypothyroidism type E03.9 [facility] [id number] [place] [address] Apr, [facility] [id number] [place] [address] Mar, Trochanteric bursitis of both hips M70.61 [facility] [id number] [place] [address] Mar, [facility] [id number] [place] [address] Mar, Plantar fasciitis M72.2 and Porokeratosis Q82.8 [facility] [place] [id number] [place] [address] Feb, Lipid screening Z13.220 ; Vitamin D deficiency E55.9 and Hypothyroidism, unspecified hypothyroidism type E03.9 [facility] [id number] [place] [address] Feb, Chronic pain syndrome G89.4 ; Hypothyroidism, [...] Encounter for immunization Z23 [facility] [id number] [place] [address] Feb, [facility] [id number] [place] [address] Feb, Ingrown toenail L60.0 [facility] [id number] [place] [address] Jan, [facility] [address] [address] Jan, Trochanteric bursitis of both hips M70.61 [facility] [id number] [place] [address] Jan, [facility] [address] [address] Jan, [facility] [id number] [place] [address] Jan, [facility] [id number] [place] [address] Jan, Right sided sciatica M54.31 [facility] [id number] [place] [address] 23 Dec, 2015 Onychomycosis B35.1 [facility] [id number] [place] [address] 22 Dec, 2015 [facility] [id number] [place] [address] Dec, [facility] [id number] [place] [address] 09 Dec, 2015 [facility] [id number] [place] [address] Dec, Osteoarthritis of right hip, unspecified osteoarthritis type M16.11 and Bursitis of right hip M70.71 [facility] [address] [address] Nov, [facility] [address] [address] Nov, [facility] [address] [address] Nov, [facility] [id number] [place] [address] Nov, Hypothyroidism, unspecified hypothyroidism type E03.9 ; Vitamin D deficiency E55.9 and History of hepatitis C Z86.19 [facility] [address] [address] 10 Nov, 2015 Right upper quadrant pain R10.11 ; History of hepatitis C Z86.19 and Low back pain M54.5 [facility] [id number] [place] [address] Oct, Trochanteric bursitis, right hip M70.61 [facility] [id number] [place] [address] Oct, [facility] [id number] [place] [address] Oct, [facility] [id number] [place] [address] Oct, Trochanteric bursitis of both hips M70.61 and Right sided sciatica M54.31 [place] [id number] [place] [address] Oct, Trochanteric bursitis of both hips M70.61 [facility] [id number] [place] [address] Oct, RUQ abdominal pain R10.11 [place] [id number] [place] [address] Oct, Sciatic leg pain M54.30 [facility] [id number] [place] [address] Oct, RUQ abdominal pain R10.11 [place] [id number] [place] [address] Oct, RUQ abdominal pain R10.11 ; History of hepatitis C Z86.19 and Trigger point with back pain M54.9 [facility] [id number] [place] [address] Sep, [facility] [id number] [place] [address] Sep, Right sided sciatica M54.31 [facility] [id number] [place] [address] Sep, Hypothyroidism, unspecified hypothyroidism type E03.9 and Vitamin D deficiency E55.9 [place] [id number] [place] [address] Sep, Plantar fasciitis M72.2 and Porokeratosis Q82.8 [facility] [id number] [place] [address] Sep, Hypothyroidism, unspecified hypothyroidism type E03.9 ; Chronic pain syndrome G89.4 ; Polyneuropathy associated with underlying disease G63 and Vitamin D deficiency E55.9 [place] [id number] [place] [address] August, [place] [address] [address] Jul, Plantar fasciitis M72.2 [facility] [id number] [place] [address] Jul, Trochanteric bursitis, right hip M70.61 [place] [id number] [place] [address] Jul, Hypothyroidism, unspecified hypothyroidism type E03.9 [place] [id number] [place] [address] Jul, Hypothyroidism, unspecified hypothyroidism type E03.9 ; Chronic pain syndrome G89.4 and Polyneuropathy associated with underlying disease G63 [facility] [id number] [place] [address] Jun, Trochanteric bursitis of both hips M70.61 [place] [id number] [place] [address] Jun, Vitamin D deficiency E55.9 ; Osteoporosis M81.0 ; Low back pain M54.5 and Plantar fasciitis M72.2 [place] [id number] [place] [address] May, Vitamin D deficiency E55.9 and Hypothyroidism, unspecified hypothyroidism type E03.9 [facility] [address] [place] [address] 23 May, 2015 Acute maxillary sinusitis J01.00 [facility] [id number] [place] [address] 18 May, 2015 Osteoporosis M81.0 and Hypothyroidism, unspecified hypothyroidism type E03.9 [facility] [id number] [place] [address] May, Osteoporosis M81.0 [facility] [id number] [place] [address] May, [facility] [id number] [place] [address] Apr, [facility] [id number] [place] [address] Apr, Trochanteric bursitis of both hips M70.61 [facility] [id number] [place] [address] Apr, Hypothyroidism, unspecified hypothyroidism type E03.9 [facility] [id number] [place] [address] Apr, Chronic pain syndrome G89.4 ; Bilateral low back pain with sciatica, sciatica laterality unspecified M54.40 ; Pain in right hip M25.551 ; Pain in left hip M25.552 ; Chronic prescription opiate use Z79.899 ; Primary insomnia F51.01 and Hypothyroidism, unspecified hypothyroidism type E03.9 [facility] [address] [address] Mar, [place] [id number] [place] [address] Feb, [facility] [id number] [place] [address] Feb, Chronic pain syndrome G89.4 and Major depression F32.9 [facility] [id number] [place] [address] Feb, Fatigue R53.83 [place] [address] [address] Feb, History of fracture Z87.81 [place] [address] [address] Feb, Major depression, recurrent F33.9 and Generalized anxiety disorder F41.1 [place] [address] [address] Feb, [place] [address] [address] Jan, Hypothyroidism, unspecified hypothyroidism type E03.9 [place] [id number] [place] [address] Jan, Abdominal pain R10.9 and Hypothyroidism, unspecified hypothyroidism type E03.9 [facility] [id number] [place] [address] Jan, Abdominal pain R10.9 [facility] [id number] [place] [address] Jan, Hypothyroidism, unspecified hypothyroidism type E03.9 [facility] [id number] [place] [address] Jan, [facility] [place] [id number] [place] [address] Jan, 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9 [place] [address] [address] Jan, Unspecified abdominal pain R10.9 ; Chronic obstructive pulmonary disease, unspecified COPD type J44.9 ; Allergic rhinitis, unspecified allergic rhinitis type J30.9 ; Chronic pain syndrome G89.4 ; Hypothyroidism, unspecified hypothyroidism type E03.9 ; Chest pain, unspecified chest pain type R07.9 and Plantar fasciitis M72.2 [facility] [id number] [place] [address] Jan, Trochanteric bursitis of both hips M70.61 [facility] [id number] [place] [address] Dec, [place] [address] [address] Nov, [facility] [place] [id number] [place] [address] Nov, [facility] [place] [id number] [place] [address] Nov, Constipation 564.00 [facility] [id number] [place] [address] Oct, Chronic pain 338.29 and Hypothyroidism 244.9 [place] [address] [address] Oct, [facility] [id number] [place] [address] Sep, [facility] [address] [address] Sep, [facility] [address] [address] Sep, [facility] [id number] [place] [address] Sep, [facility] [address] [address] Sep, [facility] [id number] [place] [address] Sep, [facility] [id number] [place] [address] Sep, COPD exacerbation 491.21 ; Chronic pain 338.29 ; Hypothyroidism 244.9 and Pancytopenia 284.19 [facility] [address] [address] August, [facility] [id number] [place] [id number] Jul, [facility] [id number] [address] Jul, [facility] [id number] [place] [address] Jun, [facility] [id number] [address] Jun, [facility] [id number] [address] Jun, [facility] [id number] [address] Jun, [facility] [id number] [place] [address] Jun, [facility] [id number] [address] May, [facility] [id number] [place] [address] May, 2014 [facility] [place] [facility] [address] [id number] [place] [address] May, 2014 [facility] [place] [facility] [address] [id number] [place] [address] May, 2014 [facility] [place] [facility] [address] [facility] [id number] [place] [address] May, 2014 [facility] [place] [facility] [address] [id number] [place] [address] May, 2014 [facility] [place] [facility] [address] [id number] [place] [address] May, 2014 [facility] [place] [facility] [address] [facility] [id number] [place] [address] May, 2014 [facility] [place] [facility] [address] [facility] [id number] [place] [address] May, 2014 [facility] [place] [facility] [address] [facility] [id number] [place] [address] May, [facility] [place] [facility] [address] [facility] [id number] [place] [address] May, [facility] [place] [facility] [address] [facility] [id number] [place] [address] May, [facility] [place] [facility] [address] [facility] [id number] [place] [address] May, [facility] [place] [facility] [address] [facility] [id number] [address] Apr, [facility] [place] [facility] [address] [id number] [place] [address] Apr, [facility] [place] [facility] [address] [facility] [id number] [place] [address] Apr, [facility] [place] [facility] [address] [facility] [id number] [address] Apr, [facility] [place] [facility] [address] [id number] [place] [address] Apr, [facility] [place] [facility] [address] [id number] [place] [address] Apr, [facility] [facility] [address] [id number] [place] [address] Apr, [facility] [place] [facility] [address] [id number] [place] [address] Mar, [facility] [place] [facility] [address] [id number] [place] [address] Mar, [facility] [place] [facility] [address] [id number] [place] [address] Mar, [facility] [place] [facility] [address] [id number] [place] [address] Mar, [facility] [place] [facility] [address] [id number] [place] [address] Mar, [facility] [place] [facility] [address] [id number] [place] [address] Mar, [facility] [place] [facility] [address] [id number] [place] [address] Feb, [facility] [place] [facility] [address] [id number] [place] [address] Feb, [facility] [place] [facility] [address] [id number] [place] [address] Feb, [facility] [place] [facility] [address] [id number] [place] [address] Feb, [facility] [place] [facility] [address] [id number] [place] [address] Feb, [facility] [place] [facility] [address] [id number] [place] [address] Feb, [facility] [place] [facility] [address] [id number] [place] [address] Jan, [facility] [place] [facility] [address] [id number] [place] [address] Jan, [facility] [place] [facility] [address] [id number] [place] [address] Jan, [facility] [place] [facility] [address] [id number] [place] [address] Jan, [facility] [place] [facility] [address] [id number] [place] [address] Jan, [facility] [place] [facility] [address] [id number] [place] [address] Jan, [facility] [place] [facility] [address] [id number] [place] [address] Jan, [facility] [place] [facility] [address] [id number] [place] [address] Jan, [facility] [place] [facility] [address] [id number] [place] [address] Dec, [facility] [place] [facility] [address] [id number] [place] [address] 25 Dec, 2013 [facility] [place] [facility] [address] [id number] [place] [address] 23 Dec, 2013 [facility] [place] [facility] [address] [id number] [place] [address] 23 Dec, 2013 [facility] [place] [facility] [address] [id number] [address] 13 Dec, 2013 [facility] [place] [facility] [address] [id number] [place] [address] 10 Dec, 2013 [facility] [place] [facility] [address] [id number] [place] [address] 10 Dec, 2013 [facility] [place] [facility] [address] [id number] [place] [address] Nov, [facility] [place] [facility] [address] [id number] [place] [address] Nov, [facility] [place] [facility] [address] [id number] [place] [address] Oct, [facility] [place] [facility] [address] [id number] [place] [address] Oct, [facility] [place] [facility] [address] [id number] [place] [address] Oct, [facility] [place] [facility] [address] [id number] [place] [address] Oct, [facility] [place] [facility] [address] [id number] [place] [address] Sep, [facility] [place] [facility] [address] [id number] [place] [address] Sep, [facility] [place] [address] [id number] [place] [address] Sep, [facility] [place] [facility] [address] [id number] [place] [address] Sep, [facility] [place] [facility] [address] [id number] [place] [address] Sep, [facility] [place] [facility] [address] [id number] [place] [address] Sep, [facility] [place] [facility] [address] [id number] [place] [address] Sep, [facility] [place] [facility] [address] [id number] [place] [address] Sep, [facility] [place] [address] [id number] [place] [address] August, [facility] [address] [id number] [place] [address] August, [facility] [place] [address] [id number] [place] [address] August, [facility] [address] [id number] [place] [address] August, [facility] [address] [id number] [place] [address] Jul, [facility] [address] [id number] [place] [address] Jul, [facility] [address] [id number] [place] [address] Jul, [facility] [address] [id number] [place] [address] 24 Jul, 2013 [facility] [address] [id number] [place] [address] Jul, [facility] [address] [id number] [place] [address] 16 Jul, 2013 [facility] [address] [id number] [place] [address] Jul, [facility] [address] [id number] [place] [address] Jul, [facility] [address] [id number] [place] [address] Jun, [facility] [address] [id number] [place] [address] Jun, [facility] [address] [id number], [place] [address] Jun, [facility] [address] [id number] [place] [address] Jun, [facility] [address] [id number] [place] [address] Jun, [facility] [address] [id number] [place] [address] Jun, [facility] [address] [id number] [place] [address] Jun, [facility] [address] [id number] [place] [address] Jun, [facility] [address] [id number] [place] [address] May, [facility] [address] [id number] [place] [address] May, [facility] [address] [id number] [place] [address] Apr, [facility] [address] [id number] [place] [address] Apr, [facility] [address] [id number] [place] [address] Mar, [facility] [address] [id number] [place] [address] Mar, [facility] [address] [id number] [place] [address] Mar, [facility] [address] [id number] [place] [address] Mar, [facility] [address] [id number] [place] [address] Mar, [facility] [address] [id number] [place] [address] Mar, [facility] [address] [id number] [place] [address] Mar, [facility] [address] [id number] [place] [address] Feb, [facility] [address] [id number] [place] [address] Feb, [facility] [address] [id number] [place] [address] Feb, [facility] [address] [id number] [place] [address] Feb, [facility] [address] [id number] [place] [address] Feb, [facility] [address] [id number] [place] [address] Feb, [facility] [address] [id number] [place] [address] 26 Dec, 2012 [facility] [address] [id number] [place] [address] 18 Dec, 2012 [facility] [address] [id number] [place] [address] Dec, [facility] [address] [id number] [place] [address] Dec, [facility] [address] [id number] [place] [address] Dec, [facility] [address] [id number] [place] [address] Nov, [facility] [address] [id number], [place] [address] Nov, [facility] [address] [id number] [place] [address] Oct, [facility] [address] [id number], [place] [address] August, [facility] [address] [id number] [place] [address] August, [facility] [address] [id number] [place] [address] August, [facility] [address] [id number], [place] [address] Jul, [facility] [address] [id number], [place] [address] Jul, [facility] [address] [id number] [place] [address] 04 Jul, 2012 [facility] [address] [id number] [place] [address] 27 Jun, 2012 [facility] [address] [id number] [place] [address] Jun, [facility] [address] [id number] [place] [address] Jun, [facility] [address] [id number] [place] [address] 20 Jun, 2012 [facility] [address] [id number] [place] [address] 18 Jun, 2012 [facility] [address] [id number] [place] [address] 15 Jun, 2012 [facility] [address] [id number] [place] [address] Jun, [facility] [address] [id number] [place] [address] 18 May, 2012 [facility] [address] [id number] [place] [address] May, [facility] [address] [id number] [place] [address] 06 May, 2012 [facility] [address] [id number] [place] [address] 05 May, 2012 [facility] [address] [id number] [place] [address] Apr, [facility] [address] [id number] [place] [address] Apr, [facility] [address] [id number], [place] [address] Apr, [facility] [address] [id number] [place] [address] Mar, [facility] [address] [id number] [place] [address] Mar, [facility] [address] [id number] [place] [address] Mar, [facility] [address] [id number] [place] [address] Mar, [facility] [address] [id number] [place] [address] Mar, [facility] [address] [id number] [place] [address] Mar, [facility] [address] [id number] [place] [address] Mar, [facility] [address] [id number] [place] [address] Mar, [facility] [address] [id number] [place] [address] Feb, [facility] [address] [id number] [place] [address] Feb, [facility] [address] [id number] [place] [address] Feb, [facility] [address] [id number] [place] [address] Jan, [facility] [address] [id number] [place] [address] Jan, [facility] [address] [id number] [place] [address] Jan, [facility] [address] [id number] [place] [address] Jan, [facility] [address] [id number] [place] [address] Jan, [facility] [address] [id number] [place] [address] Jan, [facility] [address] [id number] [place] [address] Jan, [facility] [address] [id number] [place] [address] Dec, [facility] [address] [id number] [place] [address] 24 Dec, 2011 [facility] [address] [id number] [place] [address] Dec, [facility] [address] [id number] [place] [address] Nov, [facility] [address] [id number] [place] [address] Nov, [facility] [address] [id number] [place] [address] Nov, [facility] [address] [id number] [place] [address] Nov, [facility] [address] [id number] [place] [address] Oct, [facility] [address] [id number] [place] [address] Oct, [facility] [address] [id number], [place] [address] Oct, [facility] [address] [id number] [place] [address] Sep, [facility] [address] [id number] [place] [address] Sep, [facility] [address] [id number] [place] [address] Sep, [facility] [address] [id number] [place] [address] Sep, [facility] [address] [id number] [place] [address] Sep, [facility] [address] [id number] [place] [address] Sep, [facility] [address] [id number] [place] [address] August, [facility] [address] [id number] [place] [address] Jul, [facility] [address] [id number] [place] [address] Jul, [facility] [address] [id number] [place] [address] Jul, [facility] [address] [facility] [id number] [place] [address] Jul, [facility] [address] [id number] [place] [address] Jul, [facility] [address] [id number] [place] [address] 29 Jun, 2011 [facility] [address] [facility] [id number] [place] [address] Jun, [facility] [address] [id number] [place] [address] 15 Jun, 2011 [facility] [address] [id number] [place] [address] 15 Jun, 2011 [facility] [facility] [address] [id number] [place] [address] Jun, [facility] [address] [facility] [id number] [place] [address] May, [facility] [address] [facility] [id number] [place] [address] May, [facility] [place] [facility] [address] [id number] [place] [address] May, [facility] [place] [facility] [address] [id number] [place] [address] May, [facility] [place] [facility] [address] [id number] [place] [address] May, [facility] [place] [facility] [address] [id number] [place] [address] May, [facility] [place] [facility] [address] [id number] [place] [address] May, [facility] [place] [facility] [address] [id number] [place] [address] Apr, [facility] [place] [facility] [address] [id number] [place] [address] Mar, [facility] [place] [facility] [address] [id number] [place] [address] Mar, [facility] [place] [facility] [address] [id number] [place] [address] Mar, [facility] [place] [facility] [address] [id number] [place] [address] Mar, [facility] [place] [facility] [address] [id number] [place] [address] 08 Mar, 2011 [facility] [place] [facility] [address] [id number] [place] [address] 23 Feb, 2011 [facility] [place] [facility] [address] [id number] [place] [address] 14 Feb, 2011 [facility] [place] [facility] [address] [id number] [place] [address] 14 Feb, 2011 [facility] [place] [facility] [address] [id number] [place] [address] 14 Feb, 2011 [facility] [place] [facility] [address] [id number] [place] [address] 07 Feb, 2011 [facility] [address] [id number] [place] [address] Feb, [facility] [address] [id number] [place] [address] 04 Feb, 2011 [facility] [address] [id number] [place] [address] 10 Jan, 2011 [facility] [address] [id number] [place] [address] 12 Dec, 2010 [facility] [address] [id number] [place] [address] Oct, [facility] [address] [id number] [place] [address] Jun, [facility] [address] [id number] [place] [address] 23 Mar, 2010 [facility] [address] [id number] [place] [address] 23 Mar, 2010 [facility] [address] [id number] [place] [address] 16 Mar, 2010 [facility] [address] [id number] [place] [address] 16 Mar, 2010 [facility] [address] [id number] [place] [address] 15 Mar, 2010 [facility] [address] [id number] [place] [address] 10 Mar, 2010 [facility] [place] [facility] [address] [id number] [place] [address] 10 Mar, 2010 [facility] [facility] [address] [id number] [place] [address] 05 Mar, 2010 [facility] [address] [id number] [place] [address] 03 Mar, 2010 [facility] [place] [facility] [address] [id number] [place] [address] 02 Mar, 2010 [facility] [address] [id number] [place] [address] Jan, [facility] [address] [id number] [place] [address] Jan, [facility] [address] [id number] [place] [address] Jan, [facility] [address] [id number] [place] [address] Nov, [facility] [address] [id number] [place] [address] Oct, [facility] [address] [id number] [place] [address] 31 Mar, 2009 [facility] [address] [id number] [place] [address] Mar, [facility] [address] [id number] [place] [address] Mar, [facility] [address] [id number], [place] [address] Mar, [facility] [address] [id number], [place] [address] 17 Dec, 2008 [facility] [place] [facility] [address] [id number], [place] [address] August, [facility] [place] [facility] [address] [id number], [place] [address] August, [facility] [place] [facility] [address] [id number], [place] [address] 15 Jul, 2008 [facility] [place] [facility] [address] [id number], [place] [address] Jan, [facility] [place] [facility] [address] [id number], [place] [address] Jan, IMMUNIZATIONS No Known Immunizations SOCIAL HISTORY Never Assessed REASON FOR VISIT Controlled Medication Refill PLAN OF CARE VITAL SIGNS MEDICATIONS Medication Instructions Dosage Frequency Start Date End Date Duration Status Hydrocodone-Acetaminophen 10-325 MG Orally 2 times a day 1 tablet as needed 12h Nov, 28 days Active RESULTS No Results PROCEDURES [...]
--- OUTSIDE RECORDS SUMMARY | 2018-09-22 03:17 | XMS REPORT ---
Author Author FLORENTINEZEKIEL PUCKETT Organization [facility] Address [address] [place] [address] Care Team Providers Care Wagon Driller Name Role Phone DANICA LERMAY Unavailable PROBLEMS Type Condition ICD9-CM Code BNP07-[id number] Code Onset Dates Condition Status SNOMED Code Problem Chronic gastritis without bleeding, unspecified gastritis type K29.50 Active 2292336 Problem Vitamin D deficiency E55.9 Active 68513843 Problem Osteoporosis M81.0 Active 05161286 Problem Unspecified abdominal pain R10.9 Active 651038749 Problem Fibromyalgia M79.7 Active 37030263 Problem Chronic pain syndrome G89.4 Active 115088573 Problem Trigger point with back pain M54.9 Active 598630713 Problem Chronic tension-type headache, not intractable G44.229 Active 886474094 Problem RUQ abdominal pain R10.11 Active 751169453 Problem Pancytopenia D61.818 Active 930110199 Problem Right sided sciatica M54.31 Active 31226080 Problem Chronic prescription opiate use Z79.891 Active 693809544 Problem Drug induced constipation K59.03 Active 576095689337198 Problem Leukopenia, unspecified type D72.819 Active 23059908 Problem Atrial fibrillation, unspecified type I48.91 Active 55586201 Problem Allergic rhinitis, unspecified allergic rhinitis type J30.9 Active 30373827 Problem Chronic obstructive pulmonary disease, unspecified COPD type J44.9 Active 41061925 Problem Hypothyroidism, unspecified hypothyroidism type E03.9 Active 57876266 Problem Other constipation K59.09 Active 652958971 Problem Porokeratosis Q82.8 Active 662601597 Problem 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 Active 229154099 Problem Allergy to intravenous contrast Z91.041 Active 051235917 Problem Vaginal atrophy N95.2 Active 120745013 Problem Major depression, recurrent F33.9 Active 14465926 Problem History of hepatitis C Z86.19 Active 11866836775523 Problem Hot flashes N95.1 Active 084424718 Problem Plantar fasciitis M72.2 Active 180855082 Problem Polyneuropathy associated with underlying disease G63 Active 214000901 Problem Primary insomnia F51.01 Active 8355610 Problem Low back pain M54.5 Active 591662992 ALLERGIES No Information ENCOUNTERS Encounter Location Date Diagnosis [place] [address] [address] Jul, Trochanteric bursitis of left hip M70.62 and Trochanteric bursitis, right hip M70.61 [place] [address] [place] [id number] [place] [id number] Jul, [place] [address] [address] Jul, Chronic pain syndrome G89.4 [place] [address] [place] [id number] [place] [id number] Jul, Hypothyroidism, unspecified hypothyroidism type E03.9 [place] [address] [place] [id number] [place] [address] Jul, Hypothyroidism, unspecified hypothyroidism type E03.9 [place] [address] [place] [id number] [place] [address] Jul, Chronic tension-type headache, not intractable G44.229 ; Atrial fibrillation, unspecified type I48.91 ; Chronic pain syndrome G89.4 ; Hypothyroidism, unspecified hypothyroidism type E03.9 ; Pancytopenia D61.818 ; History of hepatitis C Z86.19 ; Vaginal atrophy N95.2 ; RUQ abdominal pain R10.11 ; Chronic prescription opiate use Z79.891 ; Osteoporosis M81.0 and Screening for breast cancer Z12.31 [place] [address] [place] [id number] [place] [id number] Jun, [place] [address] [place] [id number] [place] [id number] May, [place] [address] [address] May, [facility] [id number] [place] [id number] May, [facility] [id number] [place] [id number] Apr, [facility] [id number] [place] [address] Apr, Hypothyroidism, unspecified hypothyroidism type E03.9 [facility] [id number] [place] [address] Apr, Hypothyroidism, unspecified hypothyroidism type E03.9 and Leukopenia, unspecified type D72.819 [place] [address] [place] [id number] Mar, [place] [address] [place] [id number] [place] [address] Mar, Leukopenia, unspecified type D72.819 [facility] [id number] [place] [address] Mar, Hypothyroidism, unspecified hypothyroidism type E03.9 and Low hemoglobin D64.9 [place] [address] [place] [address] Mar, Hypothyroidism, unspecified hypothyroidism type E03.9 [place] [address] [place] [address] Mar, Osteoporosis M81.0 ; Low hemoglobin D64.9 and Hypothyroidism, unspecified hypothyroidism type E03.9 [place] [address] [place] [address] Mar, Hypothyroidism, unspecified hypothyroidism type E03.9 ; Bilirubin in urine R82.[address] [facility] [address] [address] Feb, [facility] [address] [place] [id number] [place] [id number] 18 Feb, 2017 Cough R05 and Bronchitis J40 [facility] [address] [address] 14 Feb, 2017 Other viral agents as the cause of diseases classified elsewhere B97.89 and Acute upper respiratory infection, unspecified J06.9 [place] [address] [address] Feb, Fibromyalgia M79.7 ; Chronic pain syndrome G89.4 ; Hypothyroidism, unspecified hypothyroidism type E03.9 ; Primary insomnia F51.01 ; Osteoporosis M81.0 ; Vision abnormalities H53.9 ; Pancytopenia D61.818 ; BMI 28.0-28.9,adult Z68.28 and Encounter for immunization Z23 [address] [address] Feb, Neuroma D36.10 and Capsulitis of right foot M77.51 [place] [address] [place] [id number] [place] [address] Feb, [place] [address] [address] Feb, Hypothyroidism, unspecified hypothyroidism type E03.9 [place] [address] [place] [id number] [place] [address] Jan, [place] [address] [place] [id number] [place] [address] Jan, Atrial fibrillation, unspecified type I48.91 [place] [address] [place] [id number] [place] [address] Jan, [place] [address] [address] Jan, Fibromyalgia M79.7 ; Atrial fibrillation, unspecified type I48.91 ; Pain of left hand M79.642 ; Pain in right hand M79.641 ; Chronic prescription opiate use Z79.891 ; Chronic pain syndrome G89.4 ; Elevated fasting glucose R73.01 and Hypothyroidism, unspecified hypothyroidism type E03.9 [place] [address] [address] Jan, [facility] [address] [place] [id number] [place] [address] Dec, Trochanteric bursitis of both hips M70.61 [place] [address] [address] Dec, [place] [address] [address] Dec, [place] [address] [address] Nov, [place] [address] [address] Nov, Unilateral headache R51 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 [address] [place] [id number] [place] [id number] Oct, [facility] [address] [place] [id number] [place] [address] Sep, Hypothyroidism, unspecified hypothyroidism type E03.9 [facility] [address] [address] Sep, Hypothyroidism, unspecified hypothyroidism type E03.9 and Bilirubin in urine R82.2 [place] [address] [address] Sep, Trochanteric bursitis of both hips M70.61 [facility] [address] [place] [id number] [place] [address] Sep, Hypothyroidism, unspecified hypothyroidism type E03.9 ; Dysuria R30.0 ; Chronic tension-type headache, not intractable G44.229 and Drug induced constipation K59.03 [facility] [address] [address] Sep, [facility] [address] [address] Sep, [facility] [address] [address] August, [facility] [address] [place] [id number] [place] [address] Jul, [facility] [address] [address] Jul, Trochanteric bursitis of right hip M70.61 [facility] [address] [place] [id number] [place] [address] Jul, Hypothyroidism, unspecified hypothyroidism type E03.9 [facility] [address] [place] [id number] [place] [address] Jul, Fibromyalgia M79.7 ; Chronic pain syndrome G89.4 ; Hypothyroidism, unspecified hypothyroidism type E03.9 and Other constipation K59.09 [facility] [address] [place] [id number] [place] [address] Jun, Swollen tonsil J35.1 and Strep throat J02.0 [facility] [address] [place] [id number] [place] [address] Jun, [facility] [address] [place] [id number] [place] [address] Jun, Acute maxillary sinusitis J01.00 [facility] [address] [place] [id number] [place] [address] Jun, Hypothyroidism, unspecified hypothyroidism type E03.9 [place] [address] [address] Jun, Chronic pain syndrome G89.4 ; Fibromyalgia M79.7 ; Hypothyroidism, unspecified hypothyroidism type E03.9 and Chronic prescription opiate use Z79.891 [place] [address] [address] May, [place] [address] [place] [id number] [place] [address] Apr, Hypothyroidism, unspecified hypothyroidism type E03.9 [place] [address] [address] Apr, [place] [address] [address] Apr, Lipid screening Z13.220 and Hypothyroidism, unspecified hypothyroidism type E03.9 [place] [address] [place] [id number] [place] [address] Apr, [place] [address] [address] Mar, Trochanteric bursitis of both hips M70.61 [place] [id number] [place] [address] Mar, [place] [address] [address] Mar, Plantar fasciitis M72.2 and Porokeratosis Q82.8 [place] [address] [address] Feb, Lipid screening Z13.220 ; Vitamin D deficiency E55.9 and Hypothyroidism, unspecified hypothyroidism type E03.9 [place] [address] [place] [id number] [place] [address] Feb, Chronic pain syndrome G89.4 ; Hypothyroidism, unspecified hypothyroidism type E03.9 ; Pancytopenia D61.818 ; Vaginal atrophy N95.2 ; Chronic gastritis without bleeding, unspecified gastritis type K29.50 ; Vitamin D deficiency E55.9 ; Chronic prescription opiate use Z79.891 ; Adverse effect of other opioids, initial encounter T40.2X5A ; Drug induced constipation K59.03 ; Lipid screening Z13.220 and Encounter for immunization Z23 [place] [address] [address] Feb, [place] [address] [address] Feb, Ingrown toenail L60.0 [place] [address] [address] Jan, [place] [address] [place] [id number] [place] [address] Jan, Trochanteric bursitis of both hips M70.61 [place] [address] [place] [id number] [place] [address] Jan, [place] [address] [place] [id number] [place] [address] Jan, [facility] [address] [place] [id number] [place] [address] Jan, [place] [address] [place] [id number] [place] [address] Jan, Right sided sciatica M54.31 [facility] [address] [place] [id number] [place] [address] Dec, Onychomycosis B35.1 [place] [address] [place] [id number] [place] [address] Dec, [facility] [address] [place] [id number] [place] [address] Dec, [facility] [address] [place] [id number] [address] Dec, [facility] [id number] [place] [address] Dec, Osteoarthritis of right hip, unspecified osteoarthritis type M16.11 and Bursitis of right hip M70.71 [facility] [address] [place] [id number] [place] [address] Nov, [place] [address] [place] [id number] [place] [address] Nov, [place] [address] [place] [id number] [place] [address] Nov, [place] [address] [place] [id number] [place] [address] Nov, Hypothyroidism, unspecified hypothyroidism type E03.9 ; Vitamin D deficiency E55.9 and History of hepatitis C Z86.19 [place] [address] [place] [id number] [place] [address] Nov, Right upper quadrant pain R10.11 ; History of hepatitis C Z86.19 and Low back pain M54.5 [place] [address] [place] [id number] [place] [address] Oct, Trochanteric bursitis, right hip M70.61 [place] [address] [place] [address] Oct, [facility] [address] [place] [id number] [place] [address] Oct, [facility] [address] [place] [id number] [place] [address] Oct, Trochanteric bursitis of both hips M70.61 and Right sided sciatica M54.31 [place] [address] [address] Oct, Trochanteric bursitis of both hips M70.61 [place] [address] [place] [id number] [place] [address] 14 Oct, 2015 RUQ abdominal pain R10.11 [place] [address] [address] 13 Oct, 2015 Sciatic leg pain M54.30 [place] [address] [address] 11 Oct, 2015 RUQ abdominal pain R10.11 [place] [address] [address] 07 Oct, 2015 RUQ abdominal pain R10.11 ; History of hepatitis C Z86.19 and Trigger point with back pain M54.9 [place] [address] [place] [id number] [place] [address] Sep, [place] [address] [address] Sep, Right sided sciatica M54.31 [place] [address] [place] [id number] [place] [address] Sep, Hypothyroidism, unspecified hypothyroidism type E03.9 and Vitamin D deficiency E55.9 [place] [address] [place] [id number] [place] [address] Sep, Plantar fasciitis M72.2 and Porokeratosis Q82.8 [place] [address] [place] [id number] [place] [address] Sep, Hypothyroidism, unspecified hypothyroidism type E03.9 ; Chronic pain syndrome G89.4 ; Polyneuropathy associated with underlying disease G63 and Vitamin D deficiency E55.9 [place] [address] [address] August, [place] [address] [place] [id number] [place] [address] Jul, Plantar fasciitis M72.2 [place] [address] [address] Jul, Trochanteric bursitis, right hip M70.61 [place] [address] [place] [id number] [place] [address] 07 Jul, 2015 Hypothyroidism, unspecified hypothyroidism type E03.9 [place] [address] [place] [id number] [place] [address] 06 Jul, 2015 Hypothyroidism, unspecified hypothyroidism type E03.9 ; Chronic pain syndrome G89.4 and Polyneuropathy associated with underlying disease G63 [place] [address] [place] [id number] [place] [address] 10 Jun, 2015 Trochanteric bursitis of both hips M70.61 [place] [address] [place] [id number] [place] [address] 08 Jun, 2015 Vitamin D deficiency E55.9 ; Osteoporosis M81.0 ; Low back pain M54.5 and Plantar fasciitis M72.2 [place] [address] [place] [id number] [place] [address] 26 May, 2015 Vitamin D deficiency E55.9 and Hypothyroidism, unspecified hypothyroidism type E03.9 [place] [address] [place] [id number] [place] [address] 23 May, 2015 Acute maxillary sinusitis J01.00 [place] [address] [place] [id number] [place] [address] 18 May, 2015 Osteoporosis M81.0 and Hypothyroidism, unspecified hypothyroidism type E03.9 [place] [address] [place] [id number] [place] [address] 16 May, 2015 Osteoporosis M81.0 [place] [address] [place] [id number] [place] [address] 15 May, 2015 [place] [address] [place] [id number] [place] [address] 14 Apr, 2015 [place] [address] [place] [id number] [place] [address] Apr, Trochanteric bursitis of both hips M70.61 [place] [address] [place] [id number] [place] [address] Apr, Hypothyroidism, unspecified hypothyroidism type E03.9 [place] [address] [place] [id number] [place] [address] Apr, Chronic pain syndrome G89.4 ; Bilateral low back pain with sciatica, sciatica laterality unspecified M54.40 ; Pain in right hip M25.551 ; Pain in left hip M25.552 ; Chronic prescription opiate use Z79.899 ; Primary insomnia F51.01 and Hypothyroidism, unspecified hypothyroidism type E03.9 [place] [address] [place] [id number] [place] [address] Mar, [place] [address] [address] Feb, [place] [address] [address] Feb, Chronic pain syndrome G89.4 and Major depression F32.9 [place] [address] [address] Feb, Fatigue R53.83 [place] [address] [place] [id number] [place] [address] Feb, History of fracture Z87.81 [place] [address] [place] [id number] [place] [address] Feb, Major depression, recurrent F33.9 and Generalized anxiety disorder F41.1 [place] [address] [place] [id number] [place] [address] Feb, [place] [address] [place] [id number] [place] [address] Jan, Hypothyroidism, unspecified hypothyroidism type E03.9 [place] [address] [address] Jan, Abdominal pain R10.9 and Hypothyroidism, unspecified hypothyroidism type E03.9 [place] [address] [place] [id number] [place] [address] Jan, Abdominal pain R10.9 [place] [address] [place] [id number] [place] [address] Jan, Hypothyroidism, unspecified hypothyroidism type E03.9 [place] [address] [address] Jan, [place] [address] [address] Jan, Encntr for director emergency department exam (general) (routine) w/o 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 Z01.419 and Hypothyroidism, unspecified hypothyroidism type E03.9 [place] [address] [place] [id number] [place] [address] Jan, Encntr for director emergency department exam (general) (routine) w/o 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 Z01.419 ; Abdominal pain R10.9 ; Dyspareunia N94.1 ; Encounter for immunization Z23 ; History of fracture Z87.81 ; Fatigue R53.83 ; Throat fullness R68.89 ; Bruises easily R23.8 ; Hot flashes N95.1 ; Depression F32.9 and Vaginal atrophy N95.2 [place] [address] [place] [id number] [place] [address] Jan, Hypothyroidism, unspecified hypothyroidism type E03.9 [place] [address] [place] [address] Jan, Unspecified abdominal pain R10.9 ; Chronic obstructive pulmonary disease, unspecified COPD type J44.9 ; Allergic rhinitis, unspecified allergic rhinitis type J30.9 ; Chronic pain syndrome G89.4 ; Hypothyroidism, unspecified hypothyroidism type E03.9 ; Chest pain, unspecified chest pain type R07.9 and Plantar fasciitis M72.2 [place] [address] [place] [id number] [place] [address] Jan, Trochanteric bursitis of both hips M70.61 [facility] [address] [place] [id number] [place] [address] Dec, [facility] [address] [place] [id number] [place] [address] Nov, [facility] [address] [place] [id number] [place] [address] Nov, [facility] [address] [place] [id number] [place] [address] Nov, Constipation 564.00 [facility] [address] [address] Oct, Chronic pain 338.[address] [facility] [address] [place] [id number] [place] [address] Oct, [facility] [address] [place] [id number] [place] [address] Sep, [facility] [address] [place] [id number] [place] [address] Sep, [facility] [address] [place] [id number] [place] [address] Sep, [facility] [address] [place] [id number] [place] [address] Sep, [facility] [address] [place] [id number] [place] [address] Sep, [facility] [address] [place] [id number] [place] [address] Sep, [facility] [address] [place] [id number] [place] [address] Sep, COPD exacerbation 491.21 ; Chronic pain 338.29 ; Hypothyroidism 244.[address] [facility] [address] [place] [id number] [place] [address] August, [facility] [place] [facility] [address] [id number] [place] [address] Jul, [facility] [place] [facility] [address] [id number] [place] [address] Jul, [facility] [place] [facility] [address] [facility] [id number] [place] [address] Jun, [facility] [place] [facility] [address] [facility] [id number] [place] [address] Jun, [facility] [place] [facility] [address] [id number] [place] [address] Jun, [facility] [place] [facility] [address] [facility] [id number] [place] [address] Jun, [facility] [place] [facility] [address] [facility] [id number] [place] [address] Jun, [facility] [place] [facility] [address] [facility] [id number] [place] [address] May, [facility] [place] [facility] [address] [facility] [id number] [place] [address] May, [facility] [place] [facility] [address] [facility] [id number] [place] [address] May, [facility] [place] [facility] [address] [facility] [id number] [place] [address] May, [facility] [place] [facility] [address] [facility] [id number] [address] May, [facility] [place] [facility] [address] [facility] [id number] [place] [address] May, [facility] [place] [facility] [address] [facility] [id number] [place] [address] May, [facility] [place] [facility] [address] [facility] [id number] [place] [address] May, [facility] [place] [facility] [address] [id number] [place] [address] May, 2014 [facility] [place] [facility] [address] [id number] [place] [address] May, 2014 [facility] [place] [facility] [address] [id number] [place] [address] May, 2014 [facility] [place] [facility] [address] [id number] [place] [address] May, 2014 [facility] [place] [facility] [address] [id number] [place] [address] May, [facility] [place] [facility] [address] [id number] [place] [address] Apr, [facility] [place] [facility] [address] [facility] [id number] [place] [address] Apr, [facility] [place] [facility] [address] [id number] [place] [address] Apr, [facility] [place] [facility] [address] [id number] [place] [address] Apr, [facility] [place] [facility] [address] [facility] [id number] [place] [address] Apr, [facility] [place] [facility] [address] [facility] [id number] [place] [address] Apr, [facility] [place] [facility] [address] [id number] [place] [address] Apr, [facility] [place] [facility] [address] [id number] [place] [address] Mar, [facility] [place] [facility] [address] [id number] [place] [address] Mar, [facility] [place] [facility] [address] [id number] [place] [address] Mar, [facility] [place] [facility] [address] [id number] [place] [address] Mar, [facility] [place] [facility] [address] [id number] [place] [address] Mar, [facility] [place] [facility] [address] [id number] [place] [address] Mar, [facility] [place] [facility] [address] [id number] [place] [address] Feb, [facility] [place] [facility] [address] [id number] [place] [address] Feb, [facility] [place] [facility] [address] [id number] [place] [address] Feb, [facility] [place] [facility] [address] [id number] [place] [address] Feb, [facility] [place] [facility] [address] [id number] [place] [address] Feb, [facility] [place] [facility] [address] [id number] [place] [address] Feb, [facility] [place] [facility] [address] [id number] [place] [address] Jan, [facility] [place] [facility] [address] [id number] [place] [address] Jan, [facility] [place] [facility] [address] [id number], [place] [address] Jan, [facility] [place] [facility] [address] [id number], [place] [address] Jan, [facility] [place] [facility] [address] [id number] [place] [address] Jan, [facility] [place] [facility] [address] [id number] [place] [address] Jan, [facility] [place] [facility] [address] [id number] [place] [address] Jan, [facility] [place] [facility] [address] [id number] [place] [address] Jan, [facility] [place] [facility] [address] [id number] [place] [address] Dec, [facility] [place] [facility] [address] [id number] [place] [address] Dec, [facility] [place] [facility] [address] [id number] [place] [address] Dec, [facility] [place] [facility] [address] [id number] [place] [address] Dec, [facility] [place] [facility] [address] [id number] [place] [address] Dec, [facility] [place] [facility] [address] [id number] [place] [address] Dec, [facility] [place] [facility] [address] [id number] [place] [address] Dec, [facility] [place] [facility] [address] [id number] [place] [address] Nov, [facility] [place] [facility] [address] [id number] [place] [address] Nov, [facility] [place] [facility] [address] [id number] [place] [address] Oct, [facility] [place] [facility] [address] [id number] [place] [address] Oct, [facility] [place] [facility] [address] [id number] [place] [address] Oct, [facility] [place] [facility] [address] [id number] [place] [address] Oct, [facility] [place] [facility] [address] [id number] [place] [address] Sep, [facility] [place] [facility] [address] [id number] [place] [address] Sep, [facility] [place] [facility] [address] [id number] [place] [address] Sep, [facility] [place] [facility] [address] [id number] [place] [address] Sep, [facility] [place] [facility] [address] [id number] [place] [address] Sep, [facility] [place] [facility] [address] [id number] [place] [address] Sep, [facility] [place] [facility] [address] [id number] [place] [address] Sep, [facility] [place] [facility] [address] [id number] [place] [address] Sep, [facility] [place] [facility] [address] [id number] [place] [address] August, [facility] [place] [facility] [address] [id number] [place] [address] August, [facility] [place] [facility] [address] [id number] [place] [address] August, [facility] [place] [facility] [address] [id number] [place] [address] August, [facility] [place] [facility] [address] [id number] [place] [address] Jul, [facility] [place] [facility] [address] [id number] [place] [address] Jul, [facility] [place] [facility] [address] [id number] [place] [address] Jul, [facility] [place] [facility] [address] [id number] [place] [address] Jul, [facility] [place] [facility] [address] [id number] [place] [address] Jul, [facility] [place] [facility] [address] [id number], [place] [address] 16 Jul, 2013 [facility] [place] [facility] [address] [id number] [place] [address] 15 Jul, 2013 [facility] [place] [facility] [address] [id number] [place] [address] 15 Jul, 2013 [facility] [place] [facility] [address] [facility] [id number] [place] [address] 18 Jun, 2013 [facility] [place] [facility] [address] [id number] [place] [address] 18 Jun, 2013 [facility] [place] [facility] [address] [id number] [place] [address] Jun, [facility] [place] [facility] [address] [facility] [id number] [place] [address] Jun, [facility] [place] [facility] [address] [facility] [id number] [place] [address] Jun, [facility] [place] [facility] [address] [id number] [place] [address] Jun, [facility] [place] [facility] [address] [id number] [place] [address] Jun, [facility] [place] [facility] [address] [facility] [id number] [place] [address] Jun, [facility] [place] [facility] [address] [id number] [place] [address] May, [facility] [place] [facility] [address] [id number] [place] [address] May, [facility] [place] [facility] [address] [id number] [place] [address] Apr, [facility] [place] [facility] [address] [id number] [place] [address] Apr, [facility] [place] [facility] [address] [facility] [id number], [place] [address] Mar, [facility] [place] [facility] [address] [id number] [place] [address] 24 Mar, 2013 [facility] [place] [facility] [address] [id number] [place] [address] Mar, [facility] [place] [facility] [address] [id number] [place] [address] Mar, [facility] [place] [facility] [address] [id number] [place] [address] Mar, [facility] [place] [facility] [address] [id number] [place] [address] Mar, [facility] [place] [facility] [address] [id number] [place] [address] Mar, [facility] [place] [facility] [address] [id number] [place] [address] Feb, [facility] [place] [facility] [address] [id number] [place] [address] Feb, [facility] [place] [facility] [address] [id number] [place] [address] Feb, [facility] [place] [facility] [address] [id number] [place] [address] Feb, [facility] [place] [facility] [address] [id number] [place] [address] Feb, [facility] [place] [facility] [address] [id number] [place] [address] 04 Feb, 2013 [facility] [place] [facility] [address] [id number] [place] [address] 26 Dec, 2012 [facility] [place] [facility] [address] [id number] [place] [address] 18 Dec, 2012 [facility] [place] [facility] [address] [id number] [place] [address] 13 Dec, 2012 [facility] [place] [facility] [address] [id number] [place] [address] Dec, [facility] [address] [id number] [place] [address] Dec, [facility] [address] [id number] [place] [address] Nov, [facility] [address] [id number] [place] [address] Nov, [facility] [place] [facility] [address] [id number] [place] [address] Oct, [facility] [address] [id number] [place] [address] August, [facility] [address] [id number] [place] [address] August, [facility] [address] [id number] [place] [address] August, [facility] [address] [id number] [place] [address] Jul, [facility] [address] [id number] [place] [address] Jul, [facility] [place] [facility] [address] [id number] [place] [address] Jul, [facility] [address] [id number] [place] [address] Jun, [facility] [place] [facility] [address] [id number] [place] [address] Jun, [facility] [place] [facility] [address] [id number] [place] [address] Jun, [facility] [place] [facility] [address] [id number] [place] [address] Jun, [facility] [place] [facility] [address] [id number] [place] [address] Jun, [facility] [place] [facility] [address] [id number] [place] [address] 15 Jun, 2012 [facility] [address] [id number] [place] [address] 12 Jun, 2012 [facility] [place] [facility] [address] [id number] [place] [address] 18 May, 2012 [facility] [address] [id number] [place] [address] 11 May, 2012 [facility] [place] [facility] [address] [id number] [place] [address] 06 May, 2012 [facility] [address] [id number] [place] [address] 05 May, 2012 [facility] [address] [id number] [place] [address] Apr, [facility] [address] [id number] [place] [address] Apr, [facility] [address] [id number] [place] [address] Apr, [facility] [address] [id number] [place] [address] Mar, [facility] [address] [id number] [place] [address] Mar, [facility] [place] [facility] [address] [id number] [place] [address] Mar, [facility] [address] [id number] [place] [address] Mar, [facility] [place] [facility] [address] [id number] [place] [address] Mar, [facility] [place] [facility] [address] [id number] [place] [address] Mar, [facility] [place] [facility] [address] [id number] [place] [address] Mar, [facility] [place] [facility] [address] [id number] [place] [address] Mar, [facility] [place] [facility] [address] [id number] [place] [address] Feb, [facility] [place] [facility] [address] [id number] [place] [address] Feb, [facility] [place] [facility] [address] [id number] [place] [address] Feb, [facility] [place] [facility] [address] [id number] [place] [address] Jan, [facility] [place] [facility] [address] [id number] [place] [address] Jan, [facility] [place] [facility] [address] [id number] [place] [address] Jan, [facility] [place] [facility] [address] [id number], [place] [address] Jan, [facility] [place] [facility] [address] [id number] [place] [address] Jan, [facility] [place] [facility] [address] [id number], [place] [address] Jan, [facility] [place] [facility] [address] [id number], [place] [address] Jan, [facility] [place] [facility] [address] [id number], [place] [address] Dec, [facility] [place] [facility] [address] [id number] [place] [address] 24 Dec, 2011 [facility] [place] [facility] [address] [id number], [place] [address] Dec, [facility] [place] [facility] [address] [id number] [place] [address] 30 Nov, 2011 [facility] [place] [facility] [address] [id number] [place] [address] Nov, [facility] [place] [facility] [address] [id number] [place] [address] Nov, [facility] [place] [facility] [address] [id number] [place] [address] Nov, [facility] [place] [facility] [address] [id number] [place] [address] Oct, [facility] [place] [facility] [address] [id number] [place] [address] Oct, [facility] [place] [facility] [address] [id number] [place] [address] Oct, [facility] [place] [facility] [address] [id number] [place] [address] Sep, [facility] [place] [facility] [address] [id number] [place] [address] Sep, [facility] [place] [facility] [address] [id number] [place] [address] Sep, [facility] [place] [facility] [address] [id number] [place] [address] Sep, [facility] [place] [facility] [address] [id number] [place] [address] Sep, [facility] [place] [facility] [address] [id number] [place] [address] Sep, [facility] [place] [facility] [address] [id number] [place] [address] August, [facility] [place] [facility] [address] [id number] [place] [address] Jul, [facility] [place] [facility] [address] [id number] [place] [address] Jul, [facility] [place] [facility] [address] [id number] [place] [address] Jul, [facility] [place] [facility] [address] [id number] [place] [address] 05 Jul, 2011 [facility] [place] [facility] [address] [id number] [place] [address] Jul, [facility] [place] [facility] [address] [id number] [place] [address] 29 Jun, 2011 [facility] [place] [facility] [address] [id number] [place] [address] 27 Jun, 2011 [facility] [place] [facility] [address] [id number] [place] [address] 15 Jun, 2011 [facility] [place] [facility] [address] [id number] [place] [address] 15 Jun, 2011 [facility] [place] [facility] [address] [facility] [id number] [place] [address] Jun, [facility] [place] [facility] [address] [id number] [place] [address] May, [facility] [place] [facility] [address] [id number] [place] [address] May, [facility] [place] [facility] [id number] [place] [address] May, [facility] [place] [facility] [address] [id number] [place] [address] May, [facility] [place] [facility] [address] [id number] [place] [address] May, [facility] [place] [facility] [address] [id number] [place] [address] May, [facility] [place] [facility] [address] [id number] [place] [address] May, [facility] [place] [facility] [address] [id number] [place] [address] Apr, [facility] [place] [facility] [address] [id number] [place] [address] 29 Mar, 2011 [facility] [place] [facility] [address] [id number] [place] [address] 13 Mar, 2011 [facility] [place] [facility] [address] [id number] [place] [address] 10 Mar, 2011 [facility] [place] [facility] [address] [id number] [place] [address] Mar, [facility] [place] [facility] [address] [id number] [place] [address] 08 Mar, 2011 [facility] [place] [facility] [address] [id number] [place] [address] 23 Feb, 2011 [facility] [place] [facility] [address] [id number] [place] [address] 14 Feb, 2011 [facility] [place] [facility] [address] [id number] [place] [address] 14 Feb, 2011 [facility] [place] [facility] [address] [id number] [place] [address] 14 Feb, 2011 [facility] [place] [facility] [address] [id number] [place] [address] Feb, [facility] [place] [facility] [address] [id number] [place] [address] Feb, [facility] [place] [facility] [address] [id number] [place] [address] Feb, [facility] [place] [facility] [address] [id number] [place] [address] Jan, [facility] [place] [facility] [address] [id number] [place] [address] 12 Dec, 2010 [facility] [place] [facility] [address] [id number] [place] [address] Oct, [facility] [place] [facility] [address] [id number] [place] [address] Jun, [facility] [place] [facility] [address] [id number] [place] [address] 23 Mar, 2010 [facility] [place] [facility] [address] [id number] [place] [address] 23 Mar, 2010 [facility] [place] [facility] [address] [id number] [place] [address] 16 Mar, 2010 [facility] [place] [facility] [address] [id number] [place] [address] 16 Mar, 2010 [facility] [place] [facility] [address] [id number] [place] [address] 15 Mar, 2010 [facility] [place] [facility] [address] [id number] [place] [address] 10 Mar, 2010 [facility] [place] [facility] [address] [id number] [place] [address] 10 Mar, 2010 [facility] [place] [facility] [address] [id number] [place] [address] 05 Mar, 2010 [facility] [address] [id number] [place] [address] 03 Mar, 2010 [facility] [place] [facility] [address] [id number] [place] [address] 02 Mar, 2010 [facility] [place] [facility] [address] [id number] [place] [address] Jan, [facility] [place] [facility] [address] [id number] [place] [address] Jan, [facility] [place] [facility] [address] [id number] [place] [address] Jan, [facility] [place] [facility] [address] [id number] [place] [address] Nov, [facility] [place] [facility] [address] [id number] [place] [address] 13 Oct, 2009 [facility] [place] [facility] [address] [id number] [place] [address] Mar, [facility] [address] [id number] [address] Mar, [facility] [id number] [address] Mar, [facility] [address] [id number] [address] Mar, [facility] [id number] [address] Dec, [facility] [id number] [address] August, [facility] [id number] [address] August, [facility] [id number] [address] Jul, [facility] [id number], [place] [address] Jan, [facility] [address] [id number] [address] Jan, IMMUNIZATIONS No Known Immunizations SOCIAL HISTORY Never Assessed REASON FOR VISIT Requests return call PLAN OF CARE VITAL SIGNS MEDICATIONS Unknown [...]
[2018-09-22 03:18] LABS: INR 1.3 (0.8-1.4); PROTHROMBIN TIME PATIENT 16.4 SEC (12.2-14.7)
--- OUTSIDE RECORDS SUMMARY | 2018-09-22 03:18 | XMS REPORT ---
Author Author FLORENTINEZEKIEL PUCKETT Organization [facility] Address [address] [place] [address] Care Team Providers Care Officer Captain Name Role Phone DANICA LERMAY Unavailable PROBLEMS Type Condition ICD9-CM Code ZFK32-FT Code Onset Dates Condition Status SNOMED Code Problem Chronic gastritis without bleeding, unspecified gastritis type K29.50 Active 6165334 Problem Vitamin D deficiency E55.9 Active 14821442 Problem Osteoporosis M81.0 Active 77668720 Problem Unspecified abdominal pain R10.9 Active 104981182 Problem Fibromyalgia M79.7 Active 81152219 Problem Chronic pain syndrome G89.4 Active 662639862 Problem Trigger point with back pain M54.9 Active 088885319 Problem Chronic tension-type headache, not intractable G44.229 Active 734345728 Problem RUQ abdominal pain R10.11 Active 177831519 Problem Pancytopenia D61.818 Active 067853726 Problem Right sided sciatica M54.31 Active 73251228 Problem Chronic prescription opiate use Z79.891 Active 523116387 Problem Drug induced constipation K59.03 Active 794211577045649 Problem Leukopenia, unspecified type D72.819 Active 39241927 Problem Atrial fibrillation, unspecified type I48.91 Active 61792775 Problem Allergic rhinitis, unspecified allergic rhinitis type J30.9 Active 64042779 Problem Chronic obstructive pulmonary disease, unspecified COPD type J44.9 Active 06574337 Problem Hypothyroidism, unspecified hypothyroidism type E03.9 Active 85982085 Problem Other constipation K59.09 Active 033365652 Problem Porokeratosis Q82.8 Active 001904296 Problem 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 [id number], [place] [address] Nov, [facility] [id number] [place] [address] Nov, [facility] [id number] [place] [address] Oct, [facility] [id number] [place] [address] Sep, Chronic pain syndrome G89.4 [facility] [id number] [place] [address] August, Somatic dysfunction of lumbar region M99.03 and Somatic dysfunction of pelvis region M99.05 [facility] [id number] [place] [address] August, Chronic pain syndrome G89.4 [facility] [id number] [place] [address] Jul, Trochanteric bursitis of left hip M70.62 and Trochanteric bursitis, right hip M70.61 [facility] [id number] [place] [address] Jul, [facility] [id number] [place] [address] Jul, Chronic pain syndrome G89.4 [facility] [id number] [place] [address] Jul, Hypothyroidism, unspecified hypothyroidism type E03.9 [facility] [id number] [place] [address] Jul, Hypothyroidism, unspecified hypothyroidism type E03.9 [facility] [id number] [place] [address] Jul, Chronic tension-type headache, not intractable G44.229 ; Atrial fibrillation, unspecified type I48.91 ; Chronic pain syndrome G89.4 ; Hypothyroidism, unspecified hypothyroidism type E03.9 ; Pancytopenia D61.818 ; History of hepatitis C Z86.19 ; Vaginal atrophy N95.2 ; RUQ abdominal pain R10.11 ; Chronic prescription opiate use Z79.891 ; Osteoporosis M81.0 and Screening for breast cancer Z12.31 [facility] [id number] [place] [address] Jun, [facility] [id number] [place] [address] May, [facility] [id number] [place] [address] May, [facility] [id number] [place] [address] May, [facility] [id number] [place] [address] Apr, [facility] [id number] [place] [address] Apr, Hypothyroidism, unspecified hypothyroidism type E03.9 [facility] [id number] [place] [address] Apr, Hypothyroidism, unspecified hypothyroidism type E03.9 and Leukopenia, unspecified type D72.819 [facility] [id number] [place] [address] Mar, [facility] [id number] [place] [address] Mar, Leukopenia, unspecified type D72.819 [facility] [id number] [place] [address] Mar, Hypothyroidism, unspecified hypothyroidism type E03.9 and Low hemoglobin D64.9 [facility] [address] [address] Mar, Hypothyroidism, unspecified hypothyroidism type E03.9 [facility] [address] [address] Mar, Osteoporosis M81.0 ; Low hemoglobin D64.9 and Hypothyroidism, unspecified hypothyroidism type E03.[address] [address] Mar, Hypothyroidism, unspecified hypothyroidism type E03.9 ; Bilirubin in urine R82.2 and Pancytopenia D61.[address] [address] Feb, [facility] [address] [address] Feb, Cough R05 and Bronchitis J40 [facility] [address] [address] 14 Feb, 2017 Other viral agents as the cause of diseases classified elsewhere B97.89 and Acute upper respiratory infection, unspecified J06.[address] [address] Feb, Fibromyalgia M79.7 ; Chronic pain syndrome G89.4 ; Hypothyroidism, unspecified hypothyroidism type E03.9 ; Primary insomnia F51.01 ; Osteoporosis M81.0 ; Vision abnormalities H53.9 ; Pancytopenia D61.818 ; BMI 28.0-28.9,adult Z68.28 and Encounter for immunization Z23 [address] [address] Feb, Neuroma D36.10 and Capsulitis of right foot M77.[address] [address] Feb, [facility] [address], [place] [address] Feb, Hypothyroidism, unspecified hypothyroidism type E03.9 [facility] [id number] [place] [address] Jan, [facility] [id number] [place] [address] Jan, Atrial fibrillation, unspecified type I48.91 [facility] [id number] [place] [address] Jan, [facility] [id number] [place] [address] Jan, Fibromyalgia M79.7 ; Atrial fibrillation, unspecified type I48.91 ; Pain of left hand M79.642 ; Pain in right hand M79.641 ; Chronic prescription opiate use Z79.891 ; Chronic pain syndrome G89.4 ; Elevated fasting glucose R73.01 and Hypothyroidism, unspecified hypothyroidism type E03.9 [facility] [address], [place] [address] Jan, [facility] [id number] [place] [address] Dec, Trochanteric bursitis of both hips M70.61 [facility] [id number] [place] [address] Dec, [facility] [id number] [place] [address] Dec, [facility] [id number] [place] [address] Nov, [facility] [id number] [place] [address] Nov, Unilateral headache R51 [facility] [id number] [place] [address] Nov, 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 [id number] [place] [address] Oct, [facility] [id number] [place] [address] Oct, [facility] [address] [address] Sep, Hypothyroidism, unspecified hypothyroidism type E03.9 [facility] [address] [address] Sep, Hypothyroidism, unspecified hypothyroidism type E03.9 and Bilirubin in urine R82.2 [facility] [id number] [place] [address] Sep, Trochanteric bursitis of both hips M70.61 [facility] [id number] [place] [address] Sep, Hypothyroidism, unspecified hypothyroidism type E03.9 ; Dysuria R30.0 ; Chronic tension-type headache, not intractable G44.229 and Drug induced constipation K59.03 [facility] [id number] [place] [address] Sep, [facility] [id number] [place] [address] Sep, [facility] [id number] [place] [address] August, [facility] [id number] [place] [address] Jul, [facility] [id number] [place] [address] Jul, Trochanteric bursitis of right hip M70.61 [facility] [id number] [place] [address] Jul, Hypothyroidism, unspecified hypothyroidism type E03.9 [facility] [address] [address] Jul, Fibromyalgia M79.7 ; Chronic pain syndrome G89.4 ; Hypothyroidism, unspecified hypothyroidism type E03.9 and Other constipation K59.09 [facility] [address] [address] Jun, Swollen tonsil J35.1 and Strep throat J02.0 [place] [address] [address] Jun, [facility] [address] [address] Jun, Acute maxillary sinusitis J01.00 [facility] [facility] [address] [address] Jun, Hypothyroidism, unspecified hypothyroidism type E03.9 [facility] [id number] [place] [address] Jun, Chronic pain syndrome G89.4 ; Fibromyalgia M79.7 ; Hypothyroidism, unspecified hypothyroidism type E03.9 and Chronic prescription opiate use Z79.891 [facility] [id number] [place] [address] May, [facility] [address] [address] Apr, Hypothyroidism, unspecified hypothyroidism type E03.9 [facility] [id number] [place] [address] Apr, [facility] [address] [address] Apr, Lipid screening Z13.220 and Hypothyroidism, unspecified hypothyroidism type E03.9 [facility] [address] [address] Apr, [facility] [id number] [place] [address] Mar, Trochanteric bursitis of both hips M70.61 [facility] [id number] [place] [address] Mar, [facility] [id number] [place] [address] Mar, Plantar fasciitis M72.2 and Porokeratosis Q82.8 [facility] [id number] [place] [address] Feb, Lipid screening Z13.220 ; Vitamin D deficiency E55.9 and Hypothyroidism, unspecified hypothyroidism type E03.9 [facility] [id number] [place] [address] 16 Feb, 2016 Chronic pain syndrome G89.4 ; Hypothyroidism, unspecified hypothyroidism type E03.9 ; Pancytopenia D61.818 ; Vaginal atrophy N95.2 ; Chronic gastritis without bleeding, unspecified gastritis type K29.50 ; Vitamin D deficiency E55.9 ; Chronic prescription opiate use Z79.891 ; Adverse effect of other opioids, initial encounter T40.2X5A ; Drug induced constipation K59.03 ; Lipid screening Z13.220 and Encounter for immunization Z23 [facility] [id number] [place] [address] Feb, [facility] [id number] [place] [address] Feb, Ingrown toenail L60.0 [facility] [id number] [place] [address] Jan, [facility] [facility] [address] [address] Jan, Trochanteric bursitis of both hips M70.61 [facility] [id number] [place] [address] Jan, [facility] [address], [place] [address] Jan, [facility] [id number] [place] [address] Jan, [facility] [address], [place] [address] Jan, Right sided sciatica M54.31 [facility] [id number] [place] [address] 23 Dec, [address] [facility] [id number] [place] [address] 22 Dec, 2015 [facility] [id number] [place] [address] Dec, [facility] [id number] [place] [address] Dec, [facility] [id number] [place] [address] Dec, Osteoarthritis of right hip, unspecified osteoarthritis type M16.11 and Bursitis of right hip M70.71 [facility] [address], [place] [address] Nov, [facility] [address], [place] [address] Nov, [facility] [address], [place] [address] Nov, [facility] [id number] [place] [address] Nov, Hypothyroidism, unspecified hypothyroidism type E03.9 ; Vitamin D deficiency E55.9 and History of hepatitis C Z86.19 [facility] [address], [place] [address] Nov, Right upper quadrant pain R10.11 ; History of hepatitis C Z86.19 and Low back pain M54.5 [facility] [id number] [place] [address] Oct, Trochanteric bursitis, right hip M70.61 [facility] [id number] [place] [address] Oct, [facility] [id number] [place] [address] Oct, [facility] [id number] [place] [address] Oct, Trochanteric bursitis of both hips M70.61 and Right sided sciatica M54.31 [facility] [id number] [place] [address] Oct, Trochanteric bursitis of both hips M70.61 [facility] [id number] [place] [address] Oct, RUQ abdominal pain R10.11 [facility] [id number] [place] [address] Oct, Sciatic leg pain M54.30 [facility] [id number] [place] [address] Oct, RUQ abdominal pain R10.11 [facility] [id number] [place] [address] 07 Oct, 2015 RUQ abdominal pain R10.11 ; History of hepatitis C Z86.19 and Trigger point with back pain M54.9 [facility] [id number] [place] [address] Sep, [facility] [id number] [place] [address] Sep, Right sided sciatica M54.31 [facility] [id number] [place] [address] Sep, Hypothyroidism, unspecified hypothyroidism type E03.9 and Vitamin D deficiency E55.9 [facility] [id number] [place] [address] Sep, Plantar fasciitis M72.2 and Porokeratosis Q82.8 [facility] [id number] [place] [address] Sep, Hypothyroidism, unspecified hypothyroidism type E03.9 ; Chronic pain syndrome G89.4 ; Polyneuropathy associated with underlying disease G63 and Vitamin D deficiency E55.9 [facility] [id number] [place] [address] August, [facility] [address] [address] Jul, Plantar fasciitis M72.2 [place] [address] [address] Jul, Trochanteric bursitis, right hip M70.61 [facility] [id number] [place] [address] Jul, Hypothyroidism, unspecified hypothyroidism type E03.9 [facility] [id number] [place] [address] Jul, Hypothyroidism, unspecified hypothyroidism type E03.9 ; Chronic pain syndrome G89.4 and Polyneuropathy associated with underlying disease G63 [facility] [id number] [place] [address] Jun, Trochanteric bursitis of both hips M70.61 [facility] [id number] [place] [address] Jun, Vitamin D deficiency E55.9 ; Osteoporosis M81.0 ; Low back pain M54.5 and Plantar fasciitis M72.2 [facility] [id number] [place] [address] May, Vitamin D deficiency E55.9 and Hypothyroidism, unspecified hypothyroidism type E03.9 [facility] [id number] [place] [address] 23 May, 2015 Acute maxillary sinusitis J01.00 [facility] [id number] [place] [address] 18 May, 2015 Osteoporosis M81.0 and Hypothyroidism, unspecified hypothyroidism type E03.9 [facility] [id number] [place] [address] May, Osteoporosis M81.0 [facility] [id number] [place] [address] May, [facility] [id number] [place] [address] Apr, [facility] [id number] [place] [address] Apr, Trochanteric bursitis of both hips M70.61 [facility] [id number] [place] [address] Apr, Hypothyroidism, unspecified hypothyroidism type E03.9 [facility] [id number] [place] [address] Apr, Chronic pain syndrome G89.4 ; Bilateral low back pain with sciatica, sciatica laterality unspecified M54.40 ; Pain in right hip M25.551 ; Pain in left hip M25.552 ; Chronic prescription opiate use Z79.899 ; Primary insomnia F51.01 and Hypothyroidism, unspecified hypothyroidism type E03.9 [facility] [address], [place] [address] Mar, [facility] [id number] [place] [address] Feb, [facility] [id number] [place] [address] Feb, Chronic pain syndrome G89.4 and Major depression F32.9 [facility] [id number] [place] [address] 16 Feb, 2015 Fatigue R53.83 [facility] [address] [address] 13 Feb, 2015 History of fracture Z87.81 [facility] [id number] [place] [address] 12 Feb, 2015 Major depression, recurrent F33.9 and Generalized anxiety disorder F41.1 [facility] [id number] [place] [address] Feb, [place] [address] [address] Jan, Hypothyroidism, unspecified hypothyroidism type E03.9 [facility] [id number] [place] [address] Jan, Abdominal pain R10.9 and Hypothyroidism, unspecified hypothyroidism type E03.9 [facility] [id number] [place] [address] Jan, Abdominal pain R10.9 [facility] [id number] [place] [address] Jan, Hypothyroidism, unspecified hypothyroidism type E03.9 [facility] [id number] [place] [address] Jan, [facility] [id number] [place] [address] Jan, 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 [id number] [place] [address] Jan, Hypothyroidism, unspecified hypothyroidism type E03.9 [facility] [address] [address] Jan, Unspecified abdominal pain R10.9 ; Chronic obstructive pulmonary disease, unspecified COPD type J44.9 ; Allergic rhinitis, unspecified allergic rhinitis type J30.9 ; Chronic pain syndrome G89.4 ; Hypothyroidism, unspecified hypothyroidism type E03.9 ; Chest pain, unspecified chest pain type R07.9 and Plantar fasciitis M72.2 [place] [address] [address] Jan, Trochanteric bursitis of both hips M70.61 [facility] [address] [address] Dec, [facility] [address] [address] Nov, [facility] [id number] [place] [address] Nov, [facility] [address] [address] Nov, Constipation 564.00 [facility] [id number] [place] [address] Oct, Chronic pain 338.[address] [facility] [address] [address] Oct, [facility] [id number] [place] [address] Sep, [facility] [address] [address] Sep, [facility] [address], [place] [address] Sep, [facility] [id number] [address] Sep, [facility] [id number] [address] Sep, [facility] [id number] [place] [address] Sep, [facility] [id number] [place] [address] Sep, COPD exacerbation 491.21 ; Chronic pain 338.29 ; Hypothyroidism 244.9 and Pancytopenia 284.19 [facility] [id number] [address] August, [facility] [id number], [place] [address] Jul, [facility] [id number], [place] [address] Jul, [facility] [id number] [address] Jun, [facility] [id number], [place] [address] Jun, [facility] [id number], [place] [address] Jun, [facility] [id number], [place] [address] Jun, [facility] [id number], [place] [address] Jun, [facility] [id number] [address] May, [facility] [id number] [place] [address] May, 2014 [facility] [place] [facility] [address] [id number] [place] [address] May, 2014 [facility] [place] [facility] [address] [id number] [place] [address] May, 2014 [facility] [place] [facility] [address] [facility] [id number] [place] [address] May, 2014 [facility] [place] [facility] [address] [id number] [place] [address] May, 2014 [facility] [place] [facility] [address] [facility] [id number] [place] [address] May, 2014 [facility] [place] [facility] [address] [facility] [id number] [place] [address] May, 2014 [facility] [place] [facility] [address] [facility] [id number] [place] [address] May, 2014 [facility] [place] [facility] [address] [facility] [id number] [place] [address] May, [facility] [place] [facility] [address] [facility] [id number] [place] [address] May, [facility] [place] [facility] [address] [facility] [id number] [place] [address] May, [facility] [place] [facility] [address] [facility] [id number], [place] [address] May, [facility] [place] [facility] [address] [facility] [id number] [place] [address] Apr, [facility] [place] [facility] [address] [facility] [id number] [place] [address] Apr, [facility] [place] [facility] [address] [facility] [id number] [place] [address] Apr, [facility] [place] [facility] [address] [facility] [id number], [place] [address] Apr, [facility] [place] [facility] [address] [id number] [place] [address] Apr, [facility] [place] [facility] [address] [id number] [place] [address] Apr, [facility] [place] [facility] [address] [id number] [place] [address] Apr, [facility] [place] [facility] [address] [id number] [place] [address] Mar, [facility] [place] [facility] [address] [id number] [place] [address] Mar, [facility] [place] [facility] [address] [id number] [place] [address] Mar, [facility] [place] [facility] [address] [id number] [place] [address] Mar, [facility] [place] [facility] [address] [id number] [place] [address] Mar, [facility] [place] [facility] [address] [id number] [place] [address] Mar, [facility] [place] [facility] [address] [id number] [place] [address] Feb, [facility] [place] [facility] [address] [id number] [place] [address] Feb, [facility] [place] [facility] [address] [id number] [place] [address] Feb, [facility] [place] [facility] [address] [id number] [place] [address] Feb, [facility] [place] [facility] [address] [id number] [place] [address] Feb, [facility] [place] [facility] [address] [id number] [place] [address] Feb, [facility] [place] [facility] [address] [id number] [place] [address] Jan, [facility] [place] [facility] [address] [id number] [place] [address] Jan, [facility] [place] [facility] [address] [id number] [place] [address] Jan, [facility] [place] [facility] [address] [id number] [place] [address] Jan, [facility] [place] [facility] [address] [id number] [place] [address] Jan, [facility] [place] [facility] [address] [id number] [place] [address] Jan, [facility] [place] [facility] [address] [id number] [place] [address] Jan, [facility] [place] [facility] [address] [id number] [place] [address] Jan, [facility] [place] [facility] [address] [id number] [place] [address] Dec, [facility] [place] [facility] [address] [id number] [place] [address] 25 Dec, 2013 [facility] [place] [facility] [address] [id number] [place] [address] 23 Dec, 2013 [facility] [place] [facility] [address] [id number] [place] [address] 23 Dec, 2013 [facility] [place] [facility] [address] [id number] [place] [address] 13 Dec, 2013 [facility] [place] [facility] [address] [id number] [place] [address] 10 Dec, 2013 [facility] [place] [facility] [address] [id number] [place] [address] 10 Dec, 2013 [facility] [place] [facility] [address] [id number] [place] [address] Nov, [facility] [place] [facility] [address] [id number] [place] [address] Nov, [facility] [place] [facility] [address] [id number] [place] [address] Oct, [facility] [place] [facility] [address] [id number] [place] [address] Oct, [facility] [place] [facility] [address] [id number] [place] [address] Oct, [facility] [place] [facility] [address] [id number] [place] [address] Oct, [facility] [place] [facility] [address] [id number] [place] [address] Sep, [facility] [place] [facility] [address] [id number] [place] [address] Sep, [facility] [place] [facility] [address] [id number] [place] [address] Sep, [facility] [place] [facility] [address] [id number] [place] [address] Sep, [facility] [place] [facility] [address] [id number] [place] [address] Sep, [facility] [place] [facility] [address] [id number] [place] [address] Sep, [facility] [place] [facility] [address] [id number] [place] [address] Sep, [facility] [place] [facility] [address] [id number] [place] [address] Sep, [facility] [place] [facility] [address] [id number] [place] [address] August, [facility] [place] [facility] [address] [id number] [place] [address] August, [facility] [place] [facility] [address] [id number] [place] [address] August, [facility] [place] [facility] [address] [id number] [place] [address] August, [facility] [place] [facility] [address] [id number] [place] [address] Jul, [facility] [place] [facility] [address] [id number] [place] [address] Jul, [facility] [place] [facility] [address] [id number] [place] [address] Jul, [facility] [place] [facility] [address] [id number] [place] [address] 24 Jul, 2013 [facility] [place] [facility] [address] [id number] [place] [address] Jul, [facility] [place] [facility] [address] [id number] [place] [address] 16 Jul, 2013 [facility] [place] [facility] [address] [id number] [place] [address] Jul, [facility] [place] [facility] [address] [id number] [place] [address] Jul, [facility] [place] [facility] [address] [id number] [place] [address] Jun, [facility] [place] [facility] [address] [id number] [place] [address] Jun, [facility] [place] [facility] [address] [id number] [place] [address] Jun, [facility] [place] [facility] [address] [id number] [place] [address] Jun, [facility] [place] [facility] [address] [id number] [place] [address] Jun, [facility] [place] [facility] [address] [id number] [place] [address] Jun, [facility] [place] [facility] [address] [id number] [place] [address] Jun, [facility] [place] [facility] [address] [id number] [place] [address] Jun, [facility] [place] [facility] [address] [id number] [place] [address] May, [facility] [place] [facility] [address] [id number] [place] [address] May, [facility] [place] [facility] [address] [id number] [place] [address] Apr, [facility] [place] [facility] [address] [id number] [place] [address] Apr, [facility] [address] [id number] [place] [address] Mar, [facility] [place] [facility] [address] [id number] [place] [address] Mar, [facility] [place] [facility] [address] [id number] [place] [address] Mar, [facility] [place] [facility] [address] [id number] [place] [address] Mar, [facility] [place] [facility] [address] [id number] [place] [address] Mar, [facility] [place] [facility] [address] [id number] [place] [address] Mar, [facility] [place] [facility] [address] [id number] [place] [address] 17 Mar, 2013 [facility] [place] [facility] [address] [id number] [place] [address] Feb, [facility] [place] [facility] [address] [id number] [place] [address] Feb, [facility] [place] [facility] [address] [id number] [place] [address] Feb, [facility] [address] [id number] [place] [address] Feb, [facility] [place] [facility] [address] [id number] [place] [address] Feb, [facility] [place] [facility] [address] [id number] [place] [address] Feb, [facility] [place] [facility] [address] [id number] [place] [address] 26 Dec, 2012 [facility] [place] [facility] [address] [id number] [place] [address] 18 Dec, 2012 [facility] [place] [facility] [address] [id number] [place] [address] Dec, [facility] [place] [facility] [address] [id number] [place] [address] Dec, [facility] [place] [facility] [address] [id number] [place] [address] Dec, [facility] [place] [facility] [address] [id number] [place] [address] Nov, [facility] [place] [facility] [address] [id number] [place] [address] Nov, [facility] [place] [facility] [address] [id number] [place] [address] Oct, [facility] [place] [facility] [address] [id number] [place] [address] August, [facility] [place] [facility] [address] [id number] [place] [address] August, [facility] [place] [facility] [address] [id number] [place] [address] August, [facility] [place] [facility] [address] [id number] [place] [address] Jul, [facility] [place] [facility] [address] [id number] [place] [address] Jul, [facility] [address] [id number] [place] [address] 04 Jul, 2012 [facility] [address] [id number] [place] [address] 27 Jun, 2012 [facility] [address] [id number] [place] [address] 26 Jun, 2012 [facility] [address] [id number] [place] [address] Jun, [facility] [address] [id number] [place] [address] Jun, [facility] [address] [id number] [place] [address] Jun, [facility] [address] [id number] [place] [address] 15 Jun, 2012 [facility] [address] [id number] [place] [address] Jun, [facility] [address] [id number] [place] [address] May, [facility] [address] [id number] [place] [address] May, [facility] [address] [id number] [place] [address] May, [facility] [address] [id number] [place] [address] May, [facility] [address] [id number] [place] [address] Apr, [facility] [address] [id number] [place] [address] Apr, [facility] [address] [id number] [place] [address] Apr, [facility] [place] [facility] [address] [id number] [place] [address] Mar, [facility] [place] [facility] [address] [id number] [place] [address] Mar, [facility] [place] [facility] [address] [id number] [place] [address] Mar, [facility] [place] [facility] [address] [id number] [place] [address] Mar, [facility] [place] [facility] [address] [id number] [place] [address] Mar, [facility] [place] [facility] [address] [id number] [place] [address] Mar, [facility] [place] [facility] [address] [id number] [place] [address] Mar, [facility] [place] [facility] [address] [id number] [place] [address] Mar, [facility] [place] [facility] [address] [id number] [place] [address] Feb, [facility] [place] [facility] [address] [id number], [place] [address] Feb, [facility] [place] [facility] [address] [id number], [place] [address] Feb, [facility] [place] [facility] [address] [id number], [place] [address] Jan, [facility] [place] [facility] [address] [id number] [place] [address] Jan, [facility] [place] [facility] [address] [id number], [place] [address] Jan, [facility] [place] [facility] [address] [id number], [place] [address] Jan, [facility] [place] [facility] [address] [id number] [place] [address] 18 Jan, 2012 [facility] [place] [facility] [address] [id number] [place] [address] 08 Jan, 2012 [facility] [place] [facility] [address] [id number] [place] [address] Jan, [facility] [place] [facility] [address] [id number] [place] [address] 27 Dec, 2011 [facility] [place] [facility] [address] [id number] [place] [address] 24 Dec, 2011 [facility] [place] [facility] [address] [id number] [place] [address] 10 Dec, 2011 [facility] [place] [facility] [address] [id number] [place] [address] Nov, [facility] [place] [facility] [address] [id number] [place] [address] Nov, [facility] [place] [facility] [address] [id number] [place] [address] Nov, [facility] [place] [facility] [address] [id number] [place] [address] Nov, [facility] [place] [facility] [address] [id number] [place] [address] Oct, [facility] [place] [facility] [address] [id number] [place] [address] Oct, [facility] [place] [facility] [address] [id number] [place] [address] Oct, [facility] [place] [facility] [address] [id number] [place] [address] Sep, [facility] [place] [facility] [address] [id number] [place] [address] Sep, [facility] [place] [facility] [address] [id number] [place] [address] Sep, [facility] [place] [facility] [address] [id number] [place] [address] Sep, [facility] [place] [facility] [address] [id number] [place] [address] Sep, [facility] [place] [facility] [address] [id number] [place] [address] Sep, [facility] [place] [facility] [address] [id number] [place] [address] August, [facility] [place] [facility] [address] [id number] [place] [address] Jul, [facility] [place] [facility] [address] [id number] [place] [address] Jul, [facility] [place] [facility] [address] [id number] [place] [address] Jul, [facility] [place] [facility] [address] [id number] [place] [address] Jul, [facility] [place] [facility] [address] [id number] [place] [address] Jul, [facility] [place] [facility] [address] [id number] [place] [address] 29 Jun, 2011 [facility] [place] [facility] [address] [id number] [place] [address] Jun, [facility] [place] [facility] [address] [id number] [place] [address] Jun, [facility] [place] [facility] [address] [id number] [place] [address] 15 Jun, 2011 [facility] [place] [facility] [address] [id number] [place] [address] Jun, [facility] [place] [facility] [address] [id number] [place] [address] May, [facility] [place] [facility] [address] [id number] [place] [address] May, [facility] [address] [id number] [place] [address] May, [facility] [place] [facility] [address] [id number] [place] [address] 06 May, 2011 [facility] [place] [facility] [address] [id number] [place] [address] May, [facility] [place] [facility] [address] [id number] [place] [address] May, [facility] [place] [facility] [address] [id number] [place] [address] May, [facility] [place] [facility] [address] [id number] [place] [address] Apr, [facility] [address] [id number] [place] [address] 29 Mar, 2011 [facility] [place] [facility] [address] [id number] [place] [address] Mar, [facility] [place] [facility] [address] [id number] [place] [address] Mar, [facility] [place] [facility] [address] [id number] [place] [address] Mar, [facility] [place] [facility] [address] [id number] [place] [address] 08 Mar, 2011 [facility] [place] [facility] [address] [id number] [place] [address] 23 Feb, 2011 [facility] [place] [facility] [address] [id number] [place] [address] 14 Feb, 2011 [facility] [place] [facility] [address] [id number] [place] [address] 14 Feb, 2011 [facility] [place] [facility] [address] [id number] [place] [address] 14 Feb, 2011 [facility] [place] [facility] [address] [id number] [place] [address] Feb, [facility] [place] [facility] [address] [id number] [place] [address] Feb, [facility] [place] [facility] [address] [id number] [place] [address] Feb, [facility] [place] [facility] [address] [id number] [place] [address] Jan, [facility] [place] [facility] [address] [id number] [place] [address] Dec, [facility] [place] [facility] [address] [id number] [place] [address] Oct, [facility] [place] [facility] [address] [id number] [place] [address] Jun, [facility] [place] [facility] [address] [id number] [place] [address] Mar, [facility] [place] [facility] [address] [id number] [place] [address] 23 Mar, 2010 [facility] [place] [facility] [address] [id number] [place] [address] 16 Mar, 2010 [facility] [place] [facility] [address] [id number] [place] [address] 16 Mar, 2010 [facility] [place] [facility] [address] [id number] [place] [address] 15 Mar, 2010 [facility] [place] [facility] [address] [id number] [place] [address] 10 Mar, 2010 [facility] [place] [facility] [address] [id number] [place] [address] 10 Mar, 2010 [facility] [place] [facility] [address] [id number] [place] [address] 05 Mar, 2010 [facility] [place] [facility] [address] [id number] [place] [address] Mar, [facility] [place] [facility] [address] [id number] [place] [address] Mar, [facility] [place] [facility] [address] [id number] [place] [address] Jan, [facility] [address] [id number] [place] [address] Jan, [facility] [place] [facility] [address] [id number] [place] [address] Jan, [facility] [address] [id number] [place] [address] Nov, [facility] [place] [facility] [address] [id number], [place] [address] Oct, [facility] [address] [id number] [place] [address] Mar, [facility] [place] [facility] [address] [id number], [place] [address] Mar, [facility] [address] [id number], [place] [address] Mar, [facility] [place] [facility] [address] [id number], [place] [address] Mar, [facility] [place] [facility] [address] [id number], [place] [address] 17 Dec, 2008 [facility] [place] [facility] [address] [id number], [place] [address] August, [facility] [place] [facility] [address] [id number], [place] [address] August, [facility] [place] [facility] [address] [facility] [id number], [place] [address] Jul, [facility] [place] [facility] [address] [id number], [place] [address] Jan, [facility] [place] [facility] [address] [facility] [id number] [place] [address] Jan, IMMUNIZATIONS No Known Immunizations SOCIAL HISTORY Never Assessed REASON FOR VISIT Controlled Medication Refill PLAN OF CARE VITAL SIGNS MEDICATIONS Medication Instructions Dosage Frequency Start Date End Date Duration Status Hydrocodone-Acetaminophen 10-325 MG Orally 2 times a day 1 tablet as needed 12h Apr, 28 days Active RESULTS No Results PROCEDURES [...]
--- OUTSIDE RECORDS SUMMARY | 2018-09-22 03:19 | XMS REPORT ---
Author Author FLORENTINEZEKIEL PUCKETT Organization [facility] Address [address] [place] [address] Care Team Providers Care Staff Attorney Name Role Phone DANICA LERMAY Unavailable PROBLEMS Type Condition ICD9-CM Code NQS09-PO Code Onset Dates Condition Status SNOMED Code Problem Chronic gastritis without bleeding, unspecified gastritis type K29.50 Active 6130838 Problem Vitamin D deficiency E55.9 Active 64238514 Problem Osteoporosis M81.0 Active 16176891 Problem Unspecified abdominal pain R10.9 Active 309037746 Problem Fibromyalgia M79.7 Active 69913176 Problem Chronic pain syndrome G89.4 Active 540724903 Problem Trigger point with back pain M54.9 Active 063019011 Problem Chronic tension-type headache, not intractable G44.229 Active 321271215 Problem RUQ abdominal pain R10.11 Active 880812325 Problem Pancytopenia D61.818 Active 904336430 Problem Right sided sciatica M54.31 Active 17459399 Problem Chronic prescription opiate use Z79.891 Active 192912409 Problem Drug induced constipation K59.03 Active 219566311732105 Problem Leukopenia, unspecified type D72.819 Active 10688087 Problem Atrial fibrillation, unspecified type I48.91 Active 31955266 Problem Allergic rhinitis, unspecified allergic rhinitis type J30.9 Active 07427780 Problem Chronic obstructive pulmonary disease, unspecified COPD type J44.9 Active 25092619 Problem Hypothyroidism, unspecified hypothyroidism type E03.9 Active 81051990 Problem Other constipation K59.09 Active 450514716 Problem Porokeratosis Q82.8 Active 280999665 Problem 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 Active 260021925 Problem Allergy to intravenous contrast Z91.041 Active 337679088 Problem Vaginal atrophy N95.2 Active 517853072 Problem Major depression, recurrent F33.9 Active 09612858 Problem History of hepatitis C Z86.19 Active 32570808771624 Problem Hot flashes N95.1 Active 916660919 Problem Plantar fasciitis M72.2 Active 473042118 Problem Polyneuropathy associated with underlying disease G63 Active 960015698 Problem Primary insomnia F51.01 Active 4386018 Problem Low back pain M54.5 Active 675304511 ALLERGIES No Information ENCOUNTERS Encounter Location Date Diagnosis [facility] [id number] [address] Nov, [facility] [id number] [place] [address] Nov, [facility] [id number] [place] [address] Oct, [facility] [id number] [place] [address] Sep, Chronic pain syndrome G89.4 [facility] [id number] [place] [address] August, Somatic dysfunction of lumbar region M99.03 and Somatic dysfunction of pelvis region M99.05 [facility] [id number] [place] [address] August, Chronic pain syndrome G89.4 [facility] [id number] [place] [address] Jul, Trochanteric bursitis of left hip M70.62 and Trochanteric bursitis, right hip M70.61 [facility] [id number] [place] [address] Jul, [facility] [id number] [place] [address] Jul, Chronic pain syndrome G89.4 [facility] [id number] [place] [address] Jul, Hypothyroidism, unspecified hypothyroidism type E03.9 [facility] [id number] [place] [address] Jul, Hypothyroidism, unspecified hypothyroidism type E03.9 [facility] [id number] [place] [address] Jul, Chronic tension-type headache, not intractable G44.229 ; Atrial fibrillation, unspecified type I48.91 ; Chronic pain syndrome G89.4 ; Hypothyroidism, unspecified hypothyroidism type E03.9 ; Pancytopenia D61.818 ; History of hepatitis C Z86.19 ; Vaginal atrophy N95.2 ; RUQ abdominal pain R10.11 ; Chronic prescription opiate use Z79.891 ; Osteoporosis M81.0 and Screening for breast cancer Z12.31 [facility] [id number] [place] [address] Jun, [facility] [id number] [place] [address] May, [facility] [id number] [place] [address] May, [facility] [id number] [place] [address] May, [facility] [id number] [place] [address] Apr, [facility] [id number] [place] [address] Apr, Hypothyroidism, unspecified hypothyroidism type E03.9 [facility] [id number] [place] [address] Apr, Hypothyroidism, unspecified hypothyroidism type E03.9 and Leukopenia, unspecified type D72.819 [facility] [id number] [place] [address] Mar, [facility] [id number] [place] [address] Mar, Leukopenia, unspecified type D72.819 [facility] [id number] [place] [address] Mar, Hypothyroidism, unspecified hypothyroidism type E03.9 and Low hemoglobin D64.9 [facility] [address] [address] Mar, Hypothyroidism, unspecified hypothyroidism type E03.9 [facility] [address] [address] Mar, Osteoporosis M81.0 ; Low hemoglobin D64.9 and Hypothyroidism, unspecified hypothyroidism type E03.[address] [address] Mar, Hypothyroidism, unspecified hypothyroidism type E03.9 ; Bilirubin in urine R82.2 and Pancytopenia D61.[address] [address] Feb, [facility] [address] [address] Feb, Cough R05 and Bronchitis J40 [facility] [address] [address] 14 Feb, 2017 Other viral agents as the cause of diseases classified elsewhere B97.89 and Acute upper respiratory infection, unspecified J06.[address] [address] Feb, Fibromyalgia M79.7 ; Chronic pain syndrome G89.4 ; Hypothyroidism, unspecified hypothyroidism type E03.9 ; Primary insomnia F51.01 ; Osteoporosis M81.0 ; Vision abnormalities H53.9 ; Pancytopenia D61.818 ; BMI 28.0-28.9,adult Z68.28 and Encounter for immunization Z23 [address] [address] Feb, Neuroma D36.10 and Capsulitis of right foot M77.[address] [address] Feb, [facility] [address] [address] Feb, Hypothyroidism, unspecified hypothyroidism type E03.9 [facility] [id number] [place] [address] Jan, [facility] [id number] [place] [address] Jan, Atrial fibrillation, unspecified type I48.91 [facility] [id number] [place] [address] Jan, [facility] [id number] [place] [address] Jan, Fibromyalgia M79.7 ; Atrial fibrillation, unspecified type I48.91 ; Pain of left hand M79.642 ; Pain in right hand M79.641 ; Chronic prescription opiate use Z79.891 ; Chronic pain syndrome G89.4 ; Elevated fasting glucose R73.01 and Hypothyroidism, unspecified hypothyroidism type E03.9 [facility] [address] [address] Jan, [facility] [id number] [place] [address] Dec, Trochanteric bursitis of both hips M70.61 [facility] [address] [place] [address] Dec, [facility] [id number] [place] [address] Dec, [facility] [id number] [place] [address] Nov, [facility] [id number] [place] [address] Nov, Unilateral headache R51 [facility] [id number] [place] [address] Nov, [facility] [id number] [place] [address] Oct, Unilateral headache R51 ; 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 and Allergy to intravenous contrast Z91.041 [facility] [id number] [place] [address] Oct, [facility] [id number] [place] [address] Oct, [facility] [address] [address] Sep, Hypothyroidism, unspecified hypothyroidism type E03.9 [facility] [address] [address] Sep, Hypothyroidism, unspecified hypothyroidism type E03.9 and Bilirubin in urine R82.2 [facility] [id number] [place] [address] Sep, Trochanteric bursitis of both hips M70.61 [facility] [id number] [place] [address] Sep, Hypothyroidism, unspecified hypothyroidism type E03.9 ; Dysuria R30.0 ; Chronic tension-type headache, not intractable G44.229 and Drug induced constipation K59.03 [facility] [id number] [place] [address] Sep, [facility] [id number] [place] [address] Sep, [facility] [id number] [place] [address] August, [facility] [id number] [place] [address] Jul, [facility] [id number] [place] [address] Jul, Trochanteric bursitis of right hip M70.61 [facility] [id number] [place] [address] Jul, Hypothyroidism, unspecified hypothyroidism type E03.9 [facility] [address] [address] Jul, Fibromyalgia M79.7 ; Chronic pain syndrome G89.4 ; Hypothyroidism, unspecified hypothyroidism type E03.9 and Other constipation K59.09 [facility] [address] [address] Jun, Swollen tonsil J35.1 and Strep throat J02.0 [facility] [address] [address] Jun, [facility] [address] [address] Jun, Acute maxillary sinusitis J01.00 [facility] [address] [address] Jun, Hypothyroidism, unspecified hypothyroidism type E03.9 [facility] [id number] [place] [address] Jun, Chronic pain syndrome G89.4 ; Fibromyalgia M79.7 ; Hypothyroidism, unspecified hypothyroidism type E03.9 and Chronic prescription opiate use Z79.891 [facility] [id number] [place] [address] May, [facility] [address] [address] Apr, Hypothyroidism, unspecified hypothyroidism type E03.9 [facility] [id number] [place] [address] Apr, [facility] [address] [address] Apr, Lipid screening Z13.220 and Hypothyroidism, unspecified hypothyroidism type E03.9 [facility] [address] [address] Apr, [facility] [id number] [place] [address] Mar, Trochanteric bursitis of both hips M70.61 [facility] [id number] [place] [address] Mar, [facility] [id number] [place] [address] Mar, Plantar fasciitis M72.2 and Porokeratosis Q82.8 [facility] [id number] [place] [address] Feb, Lipid screening Z13.220 ; Vitamin D deficiency E55.9 and Hypothyroidism, unspecified hypothyroidism type E03.9 [facility] [id number] [place] [address] 16 Feb, 2016 Chronic pain syndrome G89.4 ; Hypothyroidism, unspecified hypothyroidism type E03.9 ; Pancytopenia D61.818 ; Vaginal atrophy N95.2 ; Chronic gastritis without bleeding, unspecified gastritis type K29.50 ; Vitamin D deficiency E55.9 ; Chronic prescription opiate use Z79.891 ; Adverse effect of other opioids, initial encounter T40.2X5A ; Drug induced constipation K59.03 ; Lipid screening Z13.220 and Encounter for immunization Z23 [facility] [id number] [place] [address] Feb, [facility] [id number] [place] [address] Feb, Ingrown toenail L60.0 [facility] [id number] [place] [address] Jan, [facility] [address] [address] Jan, Trochanteric bursitis of both hips M70.61 [facility] [id number] [place] [address] Jan, [facility] [address] [address] Jan, [facility] [id number] [place] [address] Jan, [facility] [address] [address] Jan, Right sided sciatica M54.31 [facility] [id number] [place] [address] 23 Dec, 2015 Onychomycosis B35.1 [facility] [id number] [place] [address] 22 Dec, 2015 [facility] [id number] [place] [address] Dec, [facility] [id number] [place] [address] Dec, [facility] [id number] [place] [address] Dec, Osteoarthritis of right hip, unspecified osteoarthritis type M16.11 and Bursitis of right hip M70.71 [facility] [address] [address] Nov, [facility] [address] [address] Nov, [facility] [address] [address] Nov, [facility] [id number] [place] [address] Nov, Hypothyroidism, unspecified hypothyroidism type E03.9 ; Vitamin D deficiency E55.9 and History of hepatitis C Z86.19 [facility] [address] [address] Nov, Right upper quadrant pain R10.11 ; History of hepatitis C Z86.19 and Low back pain M54.5 [facility] [id number] [place] [address] Oct, Trochanteric bursitis, right hip M70.61 [facility] [id number] [place] [address] Oct, [facility] [id number] [place] [address] Oct, [facility] [id number] [place] [address] Oct, Trochanteric bursitis of both hips M70.61 and Right sided sciatica M54.31 [facility] [id number] [place] [address] Oct, Trochanteric bursitis of both hips M70.61 [facility] [id number] [place] [address] Oct, RUQ abdominal pain R10.11 [facility] [id number] [place] [address] Oct, Sciatic leg pain M54.30 [facility] [id number] [place] [address] Oct, RUQ abdominal pain R10.11 [facility] [id number] [place] [address] 07 Oct, 2015 RUQ abdominal pain R10.11 ; History of hepatitis C Z86.19 and Trigger point with back pain M54.9 [facility] [id number] [place] [address] Sep, [facility] [id number] [place] [address] Sep, Right sided sciatica M54.31 [facility] [id number] [place] [address] Sep, Hypothyroidism, unspecified hypothyroidism type E03.9 and Vitamin D deficiency E55.9 [facility] [id number] [place] [address] Sep, Plantar fasciitis M72.2 and Porokeratosis Q82.8 [facility] [id number] [place] [address] Sep, Hypothyroidism, unspecified hypothyroidism type E03.9 ; Chronic pain syndrome G89.4 ; Polyneuropathy associated with underlying disease G63 and Vitamin D deficiency E55.9 [facility] [id number] [place] [address] August, [facility] [address] [address] Jul, Plantar fasciitis M72.2 [facility] [address] [address] Jul, Trochanteric bursitis, right hip M70.61 [facility] [id number] [place] [address] Jul, Hypothyroidism, unspecified hypothyroidism type E03.9 [facility] [id number] [place] [address] Jul, Hypothyroidism, unspecified hypothyroidism type E03.9 ; Chronic pain syndrome G89.4 and Polyneuropathy associated with underlying disease G63 [facility] [id number] [place] [address] Jun, Trochanteric bursitis of both hips M70.61 [facility] [id number] [place] [address] Jun, Vitamin D deficiency E55.9 ; Osteoporosis M81.0 ; Low back pain M54.5 and Plantar fasciitis M72.2 [facility] [id number] [place] [address] May, Vitamin D deficiency E55.9 and Hypothyroidism, unspecified hypothyroidism type E03.9 [facility] [id number] [place] [address] 23 May, 2015 Acute maxillary sinusitis J01.00 [facility] [id number] [place] [address] 18 May, 2015 Osteoporosis M81.0 and Hypothyroidism, unspecified hypothyroidism type E03.9 [facility] [id number] [place] [address] May, Osteoporosis M81.0 [facility] [id number] [place] [address] May, [facility] [id number] [place] [address] Apr, [facility] [id number] [place] [address] Apr, Trochanteric bursitis of both hips M70.61 [facility] [id number] [place] [address] Apr, Hypothyroidism, unspecified hypothyroidism type E03.9 [facility] [id number] [place] [address] Apr, Chronic pain syndrome G89.4 ; Bilateral low back pain with sciatica, sciatica laterality unspecified M54.40 ; Pain in right hip M25.551 ; Pain in left hip M25.552 ; Chronic prescription opiate use Z79.899 ; Primary insomnia F51.01 and Hypothyroidism, unspecified hypothyroidism type E03.9 [facility] [address] [address] Mar, [facility] [id number] [place] [address] Feb, [facility] [id number] [place] [address] Feb, Chronic pain syndrome G89.4 and Major depression F32.9 [facility] [id number] [place] [address] 16 Feb, 2015 Fatigue R53.83 [facility] [address] [address] 13 Feb, 2015 History of fracture Z87.81 [facility] [id number] [place] [address] 12 Feb, 2015 Major depression, recurrent F33.9 and Generalized anxiety disorder F41.1 [facility] [id number] [place] [address] Feb, [facility] [address] [address] Jan, Hypothyroidism, unspecified hypothyroidism type E03.9 [facility] [id number] [place] [address] Jan, Abdominal pain R10.9 and Hypothyroidism, unspecified hypothyroidism type E03.9 [facility] [id number] [place] [address] Jan, Abdominal pain R10.9 [facility] [id number] [place] [address] Jan, Hypothyroidism, unspecified hypothyroidism type E03.9 [facility] [id number] [place] [address] Jan, [facility] [id number] [place] [address] Jan, Encntr for butcherette exam (general) (routine) w/o 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 Z01.419 and Hypothyroidism, unspecified hypothyroidism type E03.9 [facility] [id number] [place] [address] Jan, Encntr for butcherette exam (general) (routine) w/o 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 Z01.419 ; Abdominal pain R10.9 ; Dyspareunia N94.1 ; Encounter for immunization Z23 ; History of fracture Z87.81 ; Fatigue R53.83 ; Throat fullness R68.89 ; Bruises easily R23.8 ; Hot flashes N95.1 ; Depression F32.9 and Vaginal atrophy N95.2 [facility] [id number] [place] [address] Jan, Hypothyroidism, unspecified hypothyroidism type E03.9 [facility] [address] [address] Jan, Unspecified abdominal pain R10.9 ; Chronic obstructive pulmonary disease, unspecified COPD type J44.9 ; Allergic rhinitis, unspecified allergic rhinitis type J30.9 ; Chronic pain syndrome G89.4 ; Hypothyroidism, unspecified hypothyroidism type E03.9 ; Chest pain, unspecified chest pain type R07.9 and Plantar fasciitis M72.2 [facility] [address] [address] Jan, Trochanteric bursitis of both hips M70.61 [facility] [address] [address] Dec, [facility] [address] [address] Nov, [facility] [id number] [place] [address] Nov, [facility] [address] [address] Nov, Constipation 564.00 [facility] [id number] [place] [address] Oct, Chronic pain 338.29 and Hypothyroidism 244.9 [facility] [address] [address] Oct, [facility] [id number] [place] [id number] Sep, [facility] [address] [address] Sep, [facility] [id number] [address] Sep, [facility] [id number] [address] Sep, [facility] [id number] [address] Sep, [facility] [id number] [place] [id number] Sep, [facility] [id number] [place] [address] Sep, COPD exacerbation 491.21 ; Chronic pain 338.29 ; Hypothyroidism 244.9 and Pancytopenia 284.19 [facility] [id number] [address] August, [facility] [id number] [address] Jul, [facility] [id number] [address] Jul, [facility] [id number] [address] Jun, [facility] [id number] [address] Jun, [facility] [id number] [address] Jun, [facility] [id number] [address] Jun, [facility] [address] [id number] [address] Jun, [facility] [address] [id number] [address] May, [facility] [address] [id number] [place] [address] May, 2014 [facility] [place] [facility] [address] [id number] [place] [address] May, 2014 [facility] [place] [facility] [address] [id number] [place] [address] May, 2014 [facility] [place] [facility] [address] [facility] [id number] [place] [address] May, 2014 [facility] [place] [facility] [address] [id number] [place] [address] May, 2014 [facility] [place] [facility] [address] [facility] [id number] [place] [address] May, 2014 [facility] [place] [facility] [address] [facility] [id number] [place] [address] May, 2014 [facility] [place] [facility] [address] [facility] [id number] [place] [address] May, 2014 [facility] [place] [facility] [address] [facility] [id number] [place] [address] May, [facility] [place] [facility] [address] [facility] [id number] [place] [address] May, [facility] [place] [facility] [address] [facility] [id number] [place] [address] May, [facility] [place] [facility] [address] [facility] [id number] [address] May, [facility] [place] [facility] [address] [facility] [id number] [place] [address] Apr, [facility] [place] [facility] [address] [facility] [id number] [place] [address] Apr, [facility] [place] [facility] [address] [facility] [id number] [place] [address] Apr, [facility] [place] [facility] [address] [facility] [id number] [address] Apr, [facility] [place] [facility] [address] [id number] [place] [address] Apr, [facility] [place] [facility] [address] [id number] [place] [address] Apr, [facility] [place] [facility] [address] [id number] [place] [address] Apr, [facility] [place] [facility] [address] [id number] [place] [address] Mar, [facility] [place] [facility] [address] [id number] [place] [address] Mar, [facility] [place] [facility] [address] [id number] [place] [address] Mar, [facility] [place] [facility] [address] [id number] [place] [address] Mar, [facility] [place] [facility] [address] [id number] [place] [address] Mar, [facility] [place] [facility] [address] [id number] [place] [address] Mar, [facility] [place] [facility] [address] [id number] [place] [address] Feb, [facility] [place] [facility] [address] [id number] [place] [address] Feb, [facility] [place] [facility] [address] [id number] [place] [address] Feb, [facility] [place] [facility] [address] [id number] [place] [address] Feb, [facility] [place] [facility] [address] [id number] [place] [address] Feb, [facility] [place] [facility] [address] [id number] [place] [address] Feb, [facility] [place] [facility] [address] [id number] [place] [address] Jan, [facility] [place] [facility] [address] [id number] [place] [address] Jan, [facility] [place] [facility] [address] [id number] [place] [address] Jan, [facility] [place] [facility] [address] [id number] [place] [address] Jan, [facility] [place] [facility] [address] [id number] [place] [address] Jan, [facility] [place] [facility] [address] [id number] [place] [address] Jan, [facility] [place] [facility] [address] [id number] [place] [address] Jan, [facility] [place] [facility] [address] [id number] [place] [address] Jan, [facility] [place] [facility] [address] [id number] [place] [address] Dec, [facility] [place] [facility] [address] [id number] [place] [address] 25 Dec, 2013 [facility] [place] [facility] [address] [id number] [place] [address] 23 Dec, 2013 [facility] [place] [facility] [address] [id number] [place] [address] 23 Dec, 2013 [facility] [place] [facility] [address] [id number] [place] [address] 13 Dec, 2013 [facility] [place] [facility] [address] [id number] [place] [address] 10 Dec, 2013 [facility] [place] [facility] [address] [id number] [place] [address] 10 Dec, 2013 [facility] [place] [facility] [address] [id number] [place] [address] Nov, [facility] [place] [facility] [address] [id number] [place] [address] Nov, [facility] [place] [facility] [address] [id number] [place] [address] Oct, [facility] [place] [facility] [address] [id number] [place] [address] Oct, [facility] [place] [facility] [address] [id number] [place] [address] Oct, [facility] [place] [facility] [address] [id number] [place] [address] Oct, [facility] [place] [facility] [address] [id number] [place] [address] Sep, [facility] [place] [facility] [address] [id number] [place] [address] Sep, [facility] [place] [facility] [address] [id number] [place] [address] Sep, [facility] [place] [facility] [address] [id number] [place] [address] Sep, [facility] [place] [facility] [address] [id number] [place] [address] Sep, [facility] [place] [facility] [address] [id number] [place] [address] Sep, [facility] [place] [facility] [address] [id number] [place] [address] Sep, [facility] [place] [facility] [address] [id number] [place] [address] Sep, [facility] [place] [facility] [address] [id number] [place] [address] August, [facility] [place] [facility] [address] [id number] [place] [address] August, [facility] [place] [facility] [address] [id number] [place] [address] August, [facility] [place] [facility] [address] [id number] [place] [address] August, [facility] [place] [facility] [address] [id number] [place] [address] Jul, [facility] [place] [facility] [address] [id number] [place] [address] Jul, [facility] [place] [facility] [address] [id number] [place] [address] Jul, [facility] [place] [facility] [address] [id number] [place] [address] 24 Jul, 2013 [facility] [place] [facility] [address] [id number] [place] [address] Jul, [facility] [place] [facility] [address] [id number] [place] [address] 16 Jul, 2013 [facility] [place] [facility] [address] [id number] [place] [address] Jul, [facility] [place] [facility] [address] [id number] [place] [address] Jul, [facility] [place] [facility] [address] [id number] [place] [address] Jun, [facility] [place] [facility] [address] [id number] [place] [address] Jun, [facility] [place] [facility] [address] [id number] [place] [address] Jun, [facility] [place] [facility] [address] [id number] [place] [address] Jun, [facility] [place] [facility] [address] [id number] [place] [address] Jun, [facility] [place] [facility] [address] [id number] [place] [address] Jun, [facility] [place] [facility] [address] [id number] [place] [address] Jun, [facility] [place] [facility] [address] [id number] [place] [address] Jun, [facility] [place] [facility] [address] [id number] [place] [address] May, [facility] [place] [facility] [address] [id number] [place] [address] May, [facility] [place] [facility] [address] [id number] [place] [address] Apr, [facility] [place] [facility] [address] [id number] [place] [address] Apr, [facility] [address] [id number] [place] [address] Mar, [facility] [place] [facility] [address] [id number] [place] [address] Mar, [facility] [place] [facility] [address] [id number] [place] [address] Mar, [facility] [place] [facility] [address] [id number] [place] [address] Mar, [facility] [place] [facility] [address] [id number] [place] [address] Mar, [facility] [place] [facility] [address] [id number] [place] [address] Mar, [facility] [place] [facility] [address] [id number] [place] [address] 17 Mar, 2013 [facility] [place] [facility] [address] [id number] [place] [address] Feb, [facility] [place] [facility] [address] [id number] [place] [address] Feb, [facility] [place] [facility] [address] [id number] [place] [address] Feb, [facility] [address] [id number] [place] [address] Feb, [facility] [place] [facility] [address] [id number] [place] [address] Feb, [facility] [place] [facility] [address] [id number] [place] [address] Feb, [facility] [place] [facility] [address] [id number] [place] [address] 26 Dec, 2012 [facility] [place] [facility] [address] [id number] [place] [address] 18 Dec, 2012 [facility] [place] [facility] [address] [id number] [place] [address] Dec, [facility] [place] [facility] [address] [id number] [place] [address] Dec, [facility] [place] [facility] [address] [id number] [place] [address] Dec, [facility] [place] [facility] [address] [id number] [place] [address] Nov, [facility] [place] [facility] [address] [id number] [place] [address] Nov, [facility] [place] [facility] [address] [id number] [place] [address] Oct, [facility] [place] [facility] [address] [id number] [place] [address] August, [facility] [place] [facility] [address] [id number] [place] [address] August, [facility] [place] [facility] [address] [id number] [place] [address] August, [facility] [place] [facility] [address] [id number] [place] [address] Jul, [facility] [place] [facility] [address] [id number] [place] [address] Jul, [facility] [address] [id number] [place] [address] 04 Jul, 2012 [facility] [address] [id number] [place] [address] 27 Jun, 2012 [facility] [address] [id number] [place] [address] 26 Jun, 2012 [facility] [address] [id number] [place] [address] Jun, [facility] [address] [id number] [place] [address] Jun, [facility] [address] [id number] [place] [address] Jun, [facility] [address] [id number] [place] [address] 15 Jun, [address] [facility] [address] [id number] [place] [address] Jun, [facility] [address] [id number] [place] [address] May, [facility] [address] [id number] [place] [address] May, [facility] [address] [id number] [place] [address] May, [facility] [address] [id number] [place] [address] May, [facility] [address] [id number] [place] [address] Apr, [facility] [address] [id number] [place] [address] Apr, [facility] [address] [id number] [place] [address] Apr, [facility] [place] [facility] [address] [id number] [place] [address] Mar, [facility] [place] [facility] [address] [id number] [place] [address] Mar, [facility] [place] [facility] [address] [id number] [place] [address] Mar, [facility] [place] [facility] [address] [id number] [place] [address] Mar, [facility] [place] [facility] [address] [id number] [place] [address] Mar, [facility] [place] [facility] [address] [id number] [place] [address] Mar, [facility] [place] [facility] [address] [id number] [place] [address] Mar, [facility] [place] [facility] [address] [id number] [place] [address] Mar, [facility] [place] [facility] [address] [id number] [place] [address] Feb, [facility] [place] [facility] [address] [id number] [address] Feb, [facility] [place] [facility] [address] [id number] [address] Feb, [facility] [place] [facility] [address] [id number] [place] [address] Jan, [facility] [place] [facility] [address] [id number] [place] [address] Jan, [facility] [place] [facility] [address] [id number] [address] Jan, [facility] [place] [facility] [address] [id number] [address] Jan, [facility] [place] [facility] [address] [id number] [place] [address] 18 Jan, 2012 [facility] [place] [facility] [address] [id number] [place] [address] 08 Jan, 2012 [facility] [place] [facility] [address] [id number] [place] [address] Jan, [facility] [place] [facility] [address] [id number] [place] [address] 27 Dec, 2011 [facility] [place] [facility] [address] [id number] [place] [address] 24 Dec, 2011 [facility] [place] [facility] [address] [id number] [place] [address] 10 Dec, 2011 [facility] [place] [facility] [address] [id number] [place] [address] Nov, [facility] [place] [facility] [address] [id number] [place] [address] Nov, [facility] [place] [facility] [address] [id number] [place] [address] Nov, [facility] [place] [facility] [address] [id number] [place] [address] Nov, [facility] [place] [facility] [address] [id number] [place] [address] Oct, [facility] [place] [facility] [address] [id number] [place] [address] Oct, [facility] [place] [facility] [address] [id number] [place] [address] Oct, [facility] [place] [facility] [address] [id number] [place] [address] Sep, [facility] [place] [facility] [address] [id number] [place] [address] Sep, [facility] [place] [facility] [address] [id number] [place] [address] Sep, [facility] [place] [facility] [address] [id number] [place] [address] Sep, [facility] [place] [facility] [address] [id number] [place] [address] Sep, [facility] [place] [facility] [address] [id number] [place] [address] Sep, [facility] [place] [facility] [address] [id number] [place] [address] August, [facility] [place] [facility] [address] [id number] [place] [address] Jul, [facility] [place] [facility] [address] [id number] [place] [address] Jul, [facility] [place] [facility] [address] [id number] [place] [address] Jul, [facility] [place] [facility] [address] [id number] [place] [address] Jul, [facility] [place] [facility] [address] [id number] [place] [address] Jul, [facility] [place] [facility] [address] [id number] [place] [address] 29 Jun, 2011 [facility] [place] [facility] [address] [id number] [place] [address] Jun, [facility] [place] [facility] [address] [id number] [place] [address] Jun, [facility] [place] [facility] [address] [id number] [place] [address] 15 Jun, 2011 [facility] [place] [facility] [address] [id number] [place] [address] Jun, [facility] [place] [facility] [address] [id number] [place] [address] May, [facility] [place] [facility] [address] [id number] [place] [address] May, [facility] [address] [id number] [place] [address] May, [facility] [place] [facility] [address] [id number] [place] [address] 06 May, 2011 [facility] [place] [facility] [address] [id number] [place] [address] May, [facility] [place] [facility] [address] [id number] [place] [address] May, [facility] [place] [facility] [address] [id number] [place] [address] May, [facility] [place] [facility] [address] [id number] [place] [address] Apr, [facility] [address] [id number] [place] [address] 29 Mar, 2011 [facility] [place] [facility] [address] [id number] [place] [address] Mar, [facility] [place] [facility] [address] [id number] [place] [address] Mar, [facility] [place] [facility] [address] [id number] [place] [address] Mar, [facility] [place] [facility] [address] [id number] [place] [address] 08 Mar, 2011 [facility] [place] [facility] [address] [id number] [place] [address] 23 Feb, 2011 [facility] [place] [facility] [address] [id number] [place] [address] 14 Feb, 2011 [facility] [place] [facility] [address] [id number] [place] [address] 14 Feb, 2011 [facility] [place] [facility] [address] [id number] [place] [address] 14 Feb, 2011 [facility] [place] [facility] [address] [id number] [place] [address] Feb, [facility] [place] [facility] [address] [id number] [place] [address] Feb, [facility] [place] [facility] [address] [id number] [place] [address] Feb, [facility] [place] [facility] [address] [id number] [place] [address] Jan, [facility] [place] [facility] [address] [id number] [place] [address] Dec, [facility] [place] [facility] [address] [id number] [place] [address] Oct, [facility] [place] [facility] [address] [id number] [place] [address] Jun, [facility] [place] [facility] [address] [id number] [place] [address] Mar, [facility] [place] [facility] [address] [id number] [place] [address] 23 Mar, 2010 [facility] [place] [facility] [address] [id number] [place] [address] 16 Mar, 2010 [facility] [place] [facility] [address] [id number] [place] [address] 16 Mar, 2010 [facility] [place] [facility] [address] [id number] [place] [address] 15 Mar, 2010 [facility] [place] [facility] [address] [id number] [place] [address] 10 Mar, 2010 [facility] [place] [facility] [address] [id number] [place] [address] 10 Mar, 2010 [facility] [place] [facility] [address] [id number] [place] [address] 05 Mar, 2010 [facility] [place] [facility] [address] [id number] [place] [address] Mar, [facility] [place] [facility] [address] [id number] [place] [address] Mar, [facility] [place] [facility] [address] [id number] [place] [address] Jan, [facility] [address] [id number] [place] [address] Jan, [facility] [place] [facility] [address] [id number] [place] [address] Jan, [facility] [address] [id number] [place] [address] Nov, [facility] [place] [facility] [address] [id number] [address] Oct, [facility] [address] [id number] [place] [address] Mar, [facility] [place] [facility] [address] [id number] [address] Mar, [facility] [address] [id number] [place] [address] Mar, [facility] [place] [facility] [address] [id number] [place] [address] Mar, [facility] [place] [facility] [address] [id number] [place] [address] 17 Dec, 2008 [facility] [place] [facility] [address] [id number] [place] [address] August, [facility] [place] [facility] [address] [id number] [place] [address] August, [facility] [place] [facility] [address] [facility] [id number] [place] [address] Jul, [facility] [place] [facility] [address] [id number] [place] [address] Jan, [facility] [place] [facility] [address] [facility] [id number] [place] [address] Jan, IMMUNIZATIONS No Known Immunizations SOCIAL HISTORY Never Assessed REASON FOR VISIT Deferred Labs PLAN OF CARE VITAL SIGNS MEDICATIONS Unknown [...]
--- OUTSIDE RECORDS SUMMARY | 2018-09-22 03:20 | XMS REPORT ---
Author Author FLORENTINEZEKIEL PUCKETT Organization [facility] Address [address] [place] [address] Care Team Providers Care Arborist Climber Name Role Phone DANICA LERMAY Unavailable PROBLEMS Type Condition ICD9-CM Code USH44-QK Code Onset Dates Condition Status SNOMED Code Problem Chronic gastritis without bleeding, unspecified gastritis type K29.50 Active 9151104 Problem Vitamin D deficiency E55.9 Active 49885412 Problem Osteoporosis M81.0 Active 37469616 Problem Unspecified abdominal pain R10.9 Active 131900546 Problem Fibromyalgia M79.7 Active 78730472 Problem Chronic pain syndrome G89.4 Active 306474985 Problem Trigger point with back pain M54.9 Active 556932092 Problem Chronic tension-type headache, not intractable G44.229 Active 710823069 Problem RUQ abdominal pain R10.11 Active 287316285 Problem Pancytopenia D61.818 Active 905414657 Problem Right sided sciatica M54.31 Active 96724917 Problem Chronic prescription opiate use Z79.891 Active 326726561 Problem Drug induced constipation K59.03 Active 280573348619074 Problem Leukopenia, unspecified type D72.819 Active 66281374 Problem Atrial fibrillation, unspecified type I48.91 Active 57371531 Problem Allergic rhinitis, unspecified allergic rhinitis type J30.9 Active 83586885 Problem Chronic obstructive pulmonary disease, unspecified COPD type J44.9 Active 27530951 Problem Hypothyroidism, unspecified hypothyroidism type E03.9 Active 59248377 Problem Other constipation K59.09 Active 777775574 Problem Porokeratosis Q82.8 Active 081658780 Problem 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 Active 090957659 Problem Allergy to intravenous contrast Z91.041 Active 776569883 Problem Vaginal atrophy N95.2 Active 610554264 Problem Major depression, recurrent F33.9 Active 26285542 Problem History of hepatitis C Z86.19 Active 85029082865355 Problem Hot flashes N95.1 Active 110146153 Problem Plantar fasciitis M72.2 Active 543712718 Problem Polyneuropathy associated with underlying disease G63 Active 302502336 Problem Primary insomnia F51.01 Active 1820294 Problem Low back pain M54.5 Active 904286648 ALLERGIES No Information ENCOUNTERS Encounter Location Date Diagnosis [place] [id number] [place] [address] August, Somatic dysfunction of lumbar region M99.03 and Somatic dysfunction of pelvis region M99.05 [place] [id number] [place] [address] August, Chronic pain syndrome G89.4 [place] [id number] [place] [address] Jul, Trochanteric bursitis of left hip M70.62 and Trochanteric bursitis, right hip M70.61 [place] [id number] [place] [address] Jul, [place] [id number] [place] [address] Jul, Chronic pain syndrome G89.4 [place] [id number] [place] [address] Jul, Hypothyroidism, unspecified hypothyroidism type E03.9 [place] [address] [place] [address] Jul, Hypothyroidism, unspecified hypothyroidism type E03.9 [place] [address] [place] [address] Jul, Chronic tension-type headache, not intractable G44.229 ; Atrial fibrillation, unspecified type I48.91 ; Chronic pain syndrome G89.4 ; Hypothyroidism, unspecified hypothyroidism type E03.9 ; Pancytopenia D61.818 ; History of hepatitis C Z86.19 ; Vaginal atrophy N95.2 ; RUQ abdominal pain R10.11 ; Chronic prescription opiate use Z79.891 ; Osteoporosis M81.0 and Screening for breast cancer Z12.31 [facility] [address] [address] Jun, [facility] [address] [address] May, [facility] [address] [address] May, [facility] [address] [place] [address] May, [facility] [address] [place] [address] Apr, [facility] [address] [place] [address] Apr, Hypothyroidism, unspecified hypothyroidism type E03.9 [facility] [address] [place] [address] Apr, Hypothyroidism, unspecified hypothyroidism type E03.9 and Leukopenia, unspecified type D72.819 [facility] [address] [place] [address] Mar, [facility] [address] [address] Mar, Leukopenia, unspecified type D72.819 [facility] [address], [place] [address] Mar, Hypothyroidism, unspecified hypothyroidism type E03.9 and Low hemoglobin D64.9 [facility] [address] [address] Mar, Hypothyroidism, unspecified hypothyroidism type E03.9 [facility] [address] [address] Mar, Osteoporosis M81.0 ; Low hemoglobin D64.9 and Hypothyroidism, unspecified hypothyroidism type E03.9 [facility] [address] [address] Mar, Hypothyroidism, unspecified hypothyroidism type E03.9 ; Bilirubin in urine R82.2 and Pancytopenia D61.818 [place] [address] [address] Feb, [facility] W[facility] [address] [address] Feb, Cough R05 and Bronchitis J40 [facility] [address] [address] 14 Feb, 2017 Other viral agents as the cause of diseases classified elsewhere B97.89 and Acute upper respiratory infection, unspecified J06.[address] [address] Feb, Fibromyalgia M79.7 ; Chronic pain syndrome G89.4 ; Hypothyroidism, unspecified hypothyroidism type E03.9 ; Primary insomnia F51.01 ; Osteoporosis M81.0 ; Vision abnormalities H53.9 ; Pancytopenia D61.818 ; BMI 28.0-28.9,adult Z68.28 and Encounter for immunization Z23 [address] [address] Feb, Neuroma D36.10 and Capsulitis of right foot M77.[address] [address] Feb, [address] [address] Feb, Hypothyroidism, unspecified hypothyroidism type E03.[address] [address] Jan, [address] [address] Jan, Atrial fibrillation, unspecified type I48.[address] [address] Jan, [facility] [id number] [place] [address] Jan, Fibromyalgia M79.7 ; Atrial fibrillation, unspecified type I48.91 ; Pain of left hand M79.642 ; Pain in right hand M79.641 ; Chronic prescription opiate use Z79.891 ; Chronic pain syndrome G89.4 ; Elevated fasting glucose R73.01 and Hypothyroidism, unspecified hypothyroidism type E03.9 [facility] [id number] [place] [address] Jan, [place] [address] [address] Dec, Trochanteric bursitis of both hips M70.61 [place] [id number] [place] [address] Dec, [facility] [address] [address] Dec, [facility] [id number] [place] [address] Nov, [facility] [id number] [place] [address] Nov, Unilateral headache R51 [facility] [id number] [place] [address] Nov, [facility] [id number] [place] [address] Oct, Unilateral headache R51 ; 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 and Allergy to intravenous contrast Z91.041 [facility] [address] [address] Oct, [facility] [id number] [place] [address] Oct, [facility] [address] [address] Sep, Hypothyroidism, unspecified hypothyroidism type E03.9 [facility] [id number] [place] [address] Sep, Hypothyroidism, unspecified hypothyroidism type E03.9 and Bilirubin in urine R82.2 [facility] [address] [address] Sep, Trochanteric bursitis of both hips M70.61 [facility] [address] [address] Sep, Hypothyroidism, unspecified hypothyroidism type E03.9 ; Dysuria R30.0 ; Chronic tension-type headache, not intractable G44.229 and Drug induced constipation K59.03 [place] [address] [address] Sep, [place] [address] [address] Sep, [facility] [address] [address] August, [facility] [address] [address] Jul, [place] [address] [address] Jul, Trochanteric bursitis of right hip M70.61 [facility] [address] [address] Jul, Hypothyroidism, unspecified hypothyroidism type E03.9 [place] [address] [address] Jul, Fibromyalgia M79.7 ; Chronic pain syndrome G89.4 ; Hypothyroidism, unspecified hypothyroidism type E03.9 and Other constipation K59.09 [facility] WALK IN [facility] [id number] [place] [address] Jun, Swollen tonsil J35.1 and Strep throat J02.0 [facility] [id number] [place] [address] Jun, [facility] [address] [address] Jun, Acute maxillary sinusitis J01.00 [facility] [id number] [place] [address] Jun, Hypothyroidism, unspecified hypothyroidism type E03.9 [facility] [id number] [place] [address] Jun, Chronic pain syndrome G89.4 ; Fibromyalgia M79.7 ; Hypothyroidism, unspecified hypothyroidism type E03.9 and Chronic prescription opiate use Z79.891 [facility] [id number] [place] [address] May, [facility] [address] [address] Apr, Hypothyroidism, unspecified hypothyroidism type E03.9 [facility] [id number] [place] [address] Apr, [facility] [id number] [place] [address] Apr, Lipid screening Z13.220 and Hypothyroidism, unspecified hypothyroidism type E03.9 [facility] [id number] [place] [address] Apr, [facility] [id number] [place] [address] Mar, Trochanteric bursitis of both hips M70.61 [facility] [id number] [place] [address] Mar, [facility] [id number] [place] [address] Mar, Plantar fasciitis M72.2 and Porokeratosis Q82.8 [place] [id number] [place] [address] Feb, Lipid screening Z13.220 ; Vitamin D deficiency E55.9 and Hypothyroidism, unspecified hypothyroidism type E03.9 [facility] [id number] [place] [address] 16 Feb, 2016 Chronic pain syndrome G89.4 ; Hypothyroidism, unspecified hypothyroidism type E03.9 ; Pancytopenia D61.818 ; Vaginal atrophy N95.2 ; Chronic gastritis without bleeding, unspecified gastritis type K29.50 ; Vitamin D deficiency E55.9 ; Chronic prescription opiate use Z79.891 ; Adverse effect of other opioids, initial encounter T40.2X5A ; Drug induced constipation K59.03 ; Lipid screening Z13.220 and Encounter for immunization Z23 [place] [address] [address] Feb, [place] [address] [address] Feb, Ingrown toenail L60.0 [place] [address] [address] Jan, [place] [address] [address] Jan, Trochanteric bursitis of both hips M70.61 [place] [address] [address] Jan, [place] [address] [address] Jan, [place] [address] [address] Jan, [place] [id number] [place] [address] Jan, Right sided sciatica M54.31 [place] [address] [address] Dec, Onychomycosis B35.1 [facility] [id number] [place] [address] Dec, [facility] [id number] [place] [address] Dec, [facility] [id number] [place] [address] Dec, [facility] [id number] [place] [address] Dec, Osteoarthritis of right hip, unspecified osteoarthritis type M16.11 and Bursitis of right hip M70.71 [place] [id number] [place] [address] Nov, [place] [id number] [place] [address] Nov, [facility] [id number] [place] [address] Nov, [facility] [id number] [place] [address] Nov, Hypothyroidism, unspecified hypothyroidism type E03.9 ; Vitamin D deficiency E55.9 and History of hepatitis C Z86.19 [place] [id number] [place] [address] Nov, Right upper quadrant pain R10.11 ; History of hepatitis C Z86.19 and Low back pain M54.5 [facility] [id number] [place] [address] Oct, Trochanteric bursitis, right hip M70.61 [facility] [id number] [place] [address] Oct, [facility] [id number] [place] [address] Oct, [facility] [address] [place] [address] 21 Oct, 2015 Trochanteric bursitis of both hips M70.61 and Right sided sciatica M54.31 [place] [id number] [place] [address] 20 Oct, 2015 Trochanteric bursitis of both hips M70.61 [place] [id number] [place] [address] 14 Oct, 2015 RUQ abdominal pain R10.11 [place] [id number] [place] [address] 13 Oct, 2015 Sciatic leg pain M54.30 [place] [id number] [place] [address] Oct, RUQ abdominal pain R10.11 [place] [address] [address] 07 Oct, 2015 RUQ abdominal pain R10.11 ; History of hepatitis C Z86.19 and Trigger point with back pain M54.9 [place] [id number] [place] [address] Sep, [place] [id number] [place] [address] 09 Sep, 2015 Right sided sciatica M54.31 [place] [id number] [place] [address] Sep, Hypothyroidism, unspecified hypothyroidism type E03.9 and Vitamin D deficiency E55.9 [place] [id number] [place] [address] Sep, Plantar fasciitis M72.2 and Porokeratosis Q82.8 [place] [id number] [place] [address] Sep, Hypothyroidism, unspecified hypothyroidism type E03.9 ; Chronic pain syndrome G89.4 ; Polyneuropathy associated with underlying disease G63 and Vitamin D deficiency E55.9 [place] [id number] [place] [address] August, [place] [address] [address] Jul, Plantar fasciitis M72.2 [place] [address] [address] Jul, Trochanteric bursitis, right hip M70.61 [place] [id number] [place] [address] Jul, Hypothyroidism, unspecified hypothyroidism type E03.9 [place] [address] [address] Jul, Hypothyroidism, unspecified hypothyroidism type E03.9 ; Chronic pain syndrome G89.4 and Polyneuropathy associated with underlying disease G63 [place] [address] [address] Jun, Trochanteric bursitis of both hips M70.61 [place] [id number] [place] [address] Jun, Vitamin D deficiency E55.9 ; Osteoporosis M81.0 ; Low back pain M54.5 and Plantar fasciitis M72.2 [place] [id number] [place] [address] May, Vitamin D deficiency E55.9 and Hypothyroidism, unspecified hypothyroidism type E03.9 [place] [id number] [place] [address] May, Acute maxillary sinusitis J01.00 [place] [address] [address] 18 May, 2015 Osteoporosis M81.0 and Hypothyroidism, unspecified hypothyroidism type E03.9 [place] [id number] [place] [address] 16 Feb, 2016 Osteoporosis M81.0 [place] [id number] [place] [address] 15 May, 2015 [place] [id number] [place] [address] Apr, [place] [id number] [place] [address] 07 Apr, 2015 Trochanteric bursitis of both hips M70.61 [place] [id number] [place] [address] 07 Apr, 2015 Hypothyroidism, unspecified hypothyroidism type E03.9 [place] [id number] [place] [address] 05 Apr, 2015 Chronic pain syndrome G89.4 ; Bilateral low back pain with sciatica, sciatica laterality unspecified M54.40 ; Pain in right hip M25.551 ; Pain in left hip M25.552 ; Chronic prescription opiate use Z79.899 ; Primary insomnia F51.01 and Hypothyroidism, unspecified hypothyroidism type E03.9 [place] [id number] [place] [address] 18 Mar, 2015 [place] [id number] [place] [address] 19 Feb, 2015 [place] [id number] [place] [address] 16 Feb, 2015 Chronic pain syndrome G89.4 and Major depression F32.9 [place] [id number] [place] [address] 16 Feb, 2015 Fatigue R53.83 [place] [id number] [place] [address] 13 Feb, 2015 History of fracture Z87.81 [place] [id number] [place] [address] 12 Feb, 2015 Major depression, recurrent F33.9 and Generalized anxiety disorder F41.1 [place] [address], [place] [address] Feb, [facility] [address] [place] [address] Jan, Hypothyroidism, unspecified hypothyroidism type E03.9 [place] [address] [place] [address] Jan, Abdominal pain R10.9 and Hypothyroidism, unspecified hypothyroidism type E03.9 [place] [id number] [place] [address] Jan, Abdominal pain R10.9 [place] [id number] [place] [address] Jan, Hypothyroidism, unspecified hypothyroidism type E03.9 [place] [id number] [place] [address] Jan, [place] [id number] [place] [address] Jan, Encntr for cognos exam (general) (routine) w/o 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 Z01.419 and Hypothyroidism, unspecified hypothyroidism type E03.9 [place] [address] [place] [address] Jan, Encntr for cognos exam (general) (routine) w/o 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 Z01.419 ; Abdominal pain R10.9 ; Dyspareunia N94.1 ; Encounter for immunization Z23 ; History of fracture Z87.81 ; Fatigue R53.83 ; Throat fullness R68.89 ; Bruises easily R23.8 ; Hot flashes N95.1 ; Depression F32.9 and Vaginal atrophy N95.2 [place] [id number] [place] [address] Jan, Hypothyroidism, unspecified hypothyroidism type E03.9 [place] [address], [place] [address] Jan, Unspecified abdominal pain R10.9 ; Chronic obstructive pulmonary disease, unspecified COPD type J44.9 ; Allergic rhinitis, unspecified allergic rhinitis type J30.9 ; Chronic pain syndrome G89.4 ; Hypothyroidism, unspecified hypothyroidism type E03.9 ; Chest pain, unspecified chest pain type R07.9 and Plantar fasciitis M72.2 [facility] [id number] [place] [address] Jan, Trochanteric bursitis of both hips M70.61 [facility] [id number] [place] [address] Dec, [facility] [id number] [place] [address] Nov, [facility] [id number] [place] [address] Nov, [facility] [id number] [place] [address] Nov, Constipation 564.00 [facility] [id number] [place] [address] Oct, Chronic pain 338.29 and Hypothyroidism 244.9 [facility] [id number] [place] [address] Oct, [facility] [id number] [place] [address] Sep, [facility] [id number] [place] [address] Sep, [facility] [id number] [place] [address] Sep, [facility] [id number] [place] [address] Sep, [facility] [id number] [place] [address] Sep, [facility] [id number] [place] [address] Sep, [facility] [address], [place] [address] Sep, COPD exacerbation 491.21 ; Chronic pain 338.29 ; Hypothyroidism 244.9 and Pancytopenia 284.19 [facility] [address], [place] [address] August, [facility] [id number] [place] [address] Jul, [facility] [address], [place] [address] Jul, [facility] [id number] [place] [address] Jun, [facility] [id number] [address] Jun, [facility] [id number] [place] [address] Jun, [facility] [address] [address] Jun, [facility] [address] [address] Jun, [facility] [address] [address] May, [facility] [address] [address] May, [facility] [address] [address] May, [facility] [address] [address] May, [facility] [address] [address] May, [facility] [id number] [place] [address], [place] [address] May, 2014 [facility] [place] [facility] [address] [id number] [place] [address] May, 2014 [facility] [place] [facility] [address] [id number] [place] [address] May, 2014 [facility] [place] [facility] [address] [id number] [place] [address] May, 2014 [facility] [place] [facility] [address] [id number] [place] [address] May, 2014 [facility] [place] [facility] [address] [id number] [place] [address] May, 2014 [facility] [place] [facility] [address] [facility] [id number] [place] [address] May, 2014 [facility] [place] [facility] [address] [id number] [place] [address] May, [facility] [place] [facility] [address] [id number] [place] [address] Apr, [facility] [place] [facility] [address] [facility] [id number] [place] [address] Apr, [facility] [place] [facility] [address] [facility] [id number] [place] [address] Apr, [facility] [place] [facility] [address] [facility] [id number] [place] [address] Apr, [facility] [place] [facility] [address] [id number] [place] [address] Apr, [facility] [place] [facility] [address] [facility] [id number] [place] [address] Apr, [facility] [place] [facility] [address] [facility] [id number] [place] [address] Apr, [facility] [place] [facility] [address] [facility] [id number] [place] [address] Mar, [facility] [place] [facility] [address] [id number] [place] [address] Mar, [facility] [place] [facility] [address] [id number] [place] [address] Mar, [facility] [place] [facility] [address] [id number] [place] [address] Mar, [facility] [place] [facility] [address] [id number] [place] [address] Mar, [facility] [place] [facility] [address] [id number] [place] [address] Mar, [facility] [place] [facility] [address] [id number] [place] [address] Feb, [facility] [place] [facility] [address] [id number] [place] [address] Feb, [facility] [place] [facility] [address] [id number] [place] [address] Feb, [facility] [place] [facility] [address] [id number] [place] [address] Feb, [facility] [place] [facility] [address] [id number] [place] [address] Feb, [facility] [place] [facility] [address] [id number], [place] [address] Feb, [facility] [place] [facility] [address] [id number], [place] [address] Jan, [facility] [place] [facility] [address] [id number] [place] [address] Jan, [facility] [place] [facility] [address] [id number] [place] [address] Jan, [facility] [place] [facility] [address] [id number] [place] [address] Jan, [facility] [place] [facility] [address] [id number] [place] [address] Jan, [facility] [place] [facility] [address] [id number] [place] [address] Jan, [facility] [place] [facility] [address] [id number] [place] [address] Jan, [facility] [place] [facility] [address] [id number] [place] [address] Jan, [facility] [place] [facility] [address] [id number] [place] [address] Dec, [facility] [place] [facility] [address] [id number] [place] [address] Dec, [facility] [place] [facility] [address] [id number] [place] [address] Dec, [facility] [place] [facility] [address] [id number] [place] [address] Dec, [facility] [place] [facility] [address] [id number] [place] [address] Dec, [facility] [place] [facility] [address] [id number] [place] [address] Dec, [facility] [place] [facility] [address] [id number] [place] [address] Dec, [facility] [place] [facility] [address] [id number] [place] [address] Nov, [facility] [place] [facility] [address] [id number] [place] [address] Nov, [facility] [place] [facility] [address] [id number] [place] [address] Oct, [facility] [place] [facility] [address] [id number] [place] [address] Oct, [facility] [place] [facility] [address] [id number] [place] [address] Oct, [facility] [place] [facility] [address] [id number] [place] [address] Oct, [facility] [place] [facility] [address] [id number] [place] [address] Sep, [facility] [place] [facility] [address] [id number] [place] [address] Sep, [facility] [place] [facility] [address] [id number] [place] [address] Sep, [facility] [place] [facility] [address] [id number] [place] [address] Sep, [facility] [place] [facility] [address] [id number] [place] [address] Sep, [facility] [place] [facility] [address] [id number] [place] [address] Sep, [facility] [place] [facility] [address] [id number] [place] [address] Sep, [facility] [place] [facility] [address] [id number] [place] [address] Sep, [facility] [place] [facility] [address] [id number] [place] [address] August, [facility] [place] [facility] [address] [id number] [place] [address] August, [facility] [place] [facility] [address] [id number] [place] [address] August, [facility] [place] [facility] [address] [id number] [place] [address] August, [facility] [place] [facility] [address] [id number] [place] [address] Jul, [facility] [place] [facility] [address] [id number] [place] [address] Jul, [facility] [place] [facility] [address] [id number] [place] [address] 24 Jul, 2013 [facility] [place] [facility] [address] [id number] [place] [address] 24 Jul, 2013 [facility] [place] [facility] [address] [id number] [place] [address] 17 Jul, 2013 [facility] [place] [facility] [address] [id number] [place] [address] 16 Jul, 2013 [facility] [place] [facility] [address] [id number] [place] [address] 15 Jul, 2013 [facility] [place] [facility] [address] [id number] [place] [address] Jul, [facility] [place] [facility] [address] [id number] [place] [address] Jun, [facility] [place] [facility] [address] [id number] [place] [address] Jun, [facility] [place] [facility] [address] [id number] [place] [address] Jun, [facility] [place] [facility] [address] [id number] [place] [address] Jun, [facility] [place] [facility] [address] [id number] [place] [address] Jun, [facility] [place] [facility] [address] [id number] [place] [address] Jun, [facility] [place] [facility] [address] [id number] [place] [address] Jun, [facility] [place] [facility] [address] [id number] [place] [address] Jun, [facility] [place] [facility] [address] [id number] [place] [address] May, [facility] [place] [facility] [address] [id number] [place] [address] May, [facility] [place] [facility] [address] [id number] [place] [address] 17 Apr, 2013 [facility] [address] [id number] [place] [address] Apr, [facility] [address] [id number] [place] [address] Mar, [facility] [address] [id number] [place] [address] Mar, [facility] [address] [id number] [place] [address] Mar, [facility] [address] [id number] [place] [address] Mar, [facility] [address] [id number] [place] [address] Mar, [facility] [address] [id number] [place] [address] Mar, [facility] [address] [id number] [place] [address] Mar, [facility] [address] [id number] [place] [address] Feb, [facility] [address] [id number] [place] [address] Feb, [facility] [address] [id number] [place] [address] Feb, [facility] [address] [id number] [place] [address] Feb, [facility] [place] [facility] [address] [id number] [place] [address] Feb, [facility] [address] [id number] [place] [address] Feb, [facility] [address] [id number] [place] [address] Dec, [facility] [address] [id number] [place] [address] 18 Dec, 2012 [facility] [place] [facility] [address] [id number] [place] [address] Dec, [facility] [place] [facility] [address] [id number] [place] [address] Dec, [facility] [place] [facility] [address] [id number] [place] [address] Dec, [facility] [address] [id number] [place] [address] Nov, [facility] [place] [facility] [address] [id number] [place] [address] Nov, [facility] [place] [facility] [address] [id number] [place] [address] Oct, [facility] [place] [facility] [address] [id number] [place] [address] August, [facility] [place] [facility] [address] [id number] [place] [address] August, [facility] [place] [facility] [address] [id number] [place] [address] August, [facility] [place] [facility] [address] [id number] [place] [address] Jul, [facility] [place] [facility] [address] [id number], [place] [address] Jul, [facility] [place] [facility] [address] [id number] [place] [address] Jul, [facility] [place] [facility] [address] [id number] [place] [address] Jun, [facility] [place] [facility] [address] [id number] [place] [address] Jun, [facility] [place] [facility] [address] [id number], [place] [address] 21 Jun, 2012 [facility] [address] [id number] [place] [address] 20 Jun, 2012 [facility] [place] [facility] [address] [id number] [place] [address] 18 Jun, 2012 [facility] [address] [id number] [place] [address] 15 Jun, 2012 [facility] [place] [facility] [address] [id number] [place] [address] 12 Jun, 2012 [facility] [address] [id number] [place] [address] 18 May, 2012 [facility] [place] [facility] [address] [id number] [place] [address] May, [facility] [address] [id number] [place] [address] 06 May, 2012 [facility] [place] [facility] [address] [id number] [place] [address] 05 May, 2012 [facility] [address] [id number] [place] [address] Apr, [facility] [address] [facility] [id number] [place] [address] Apr, [facility] [address] [id number] [place] [address] Apr, [facility] [place] [facility] [address] [id number] [place] [address] Mar, [facility] [place] [facility] [address] [id number] [place] [address] Mar, [facility] [place] [facility] [address] [id number] [place] [address] Mar, [facility] [address] [id number] [place] [address] Mar, [facility] [place] [facility] [address] [id number] [place] [address] Mar, [facility] [place] [facility] [address] [id number] [place] [address] Mar, [facility] [place] [facility] [address] [id number] [place] [address] Mar, [facility] [place] [facility] [address] [id number] [place] [address], [place] [address] Mar, [facility] [place] [facility] [address] [id number] [place] [address] Feb, [facility] [place] [facility] [address] [id number] [place] [address] Feb, [facility] [place] [facility] [address] [id number] [place] [address] Feb, [facility] [place] [facility] [address] [id number] [place] [address] Jan, [facility] [place] [facility] [address] [id number] [place] [address] Jan, [facility] [place] [facility] [address] [id number] [place] [address] Jan, [facility] [place] [facility] [address] [id number] [place] [address] Jan, [facility] [place] [facility] [address] [id number], [place] [address] Jan, [facility] [place] [facility] [address] [id number] [place] [address] Jan, [facility] [place] [facility] [address] [id number] [place] [address] Jan, [facility] [place] [facility] [address] [id number] [place] [address] Dec, [facility] [place] [facility] [address] [id number] [place] [address] 24 Dec, 2011 [facility] [place] [facility] [address] [id number] [place] [address] Dec, [facility] [place] [facility] [address] [id number] [place] [address] Nov, [facility] [place] [facility] [address] [id number] [place] [address] Nov, [facility] [place] [facility] [address] [id number] [place] [address] Nov, [facility] [place] [facility] [address] [id number] [place] [address] Nov, [facility] [place] [facility] [address] [id number] [place] [address] Oct, [facility] [place] [facility] [address] [id number] [place] [address] Oct, [facility] [place] [facility] [address] [id number] [place] [address] Oct, [facility] [place] [facility] [address] [id number] [place] [address] Sep, [facility] [place] [facility] [address] [id number] [place] [address] Sep, [facility] [place] [facility] [address] [id number] [place] [address] Sep, [facility] [place] [facility] [address] [id number] [place] [address] Sep, [facility] [place] [facility] [address] [id number] [place] [address] Sep, [facility] [place] [facility] [address] [id number] [place] [address] Sep, [facility] [place] [facility] [address] [id number] [place] [address] August, [facility] [place] [facility] [address] [id number] [place] [address] 19 Jul, 2011 [facility] [address] [id number] [place] [address] 18 Jul, 2011 [facility] [place] [facility] [address] [id number] [place] [address] Jul, [facility] [address] [id number] [place] [address] 05 Jul, 2011 [facility] [place] [facility] [address] [id number] [place] [address] 04 Jul, 2011 [facility] [address] [id number] [place] [address] 29 Jun, 2011 [facility] [address] [id number] [place] [address] 27 Jun, 2011 [facility] [address] [id number] [place] [address] 15 Jun, 2011 [facility] [address] [id number] [place] [address] 15 Jun, 2011 [facility] [address] [id number] [place] [address] Jun, [facility] [address] [id number] [place] [address] May, [facility] [place] [facility] [address] [id number] [place] [address] May, [facility] [address] [id number] [place] [address] May, [facility] [place] [facility] [address] [id number] [place] [address] 06 May, 2011 [facility] [place] [facility] [address] [id number] [place] [address] May, [facility] [place] [facility] [address] [id number] [place] [address] 02 May, 2011 [facility] [place] [facility] [address] [id number] [place] [address] May, [facility] [place] [facility] [address] [id number] [place] [address] Apr, [facility] [place] [facility] [address] [id number] [place] [address] 29 Mar, 2011 [facility] [place] [facility] [address] [id number] [place] [address] Mar, [facility] [place] [facility] [address] [id number] [place] [address] Mar, [facility] [place] [facility] [address] [id number] [place] [address] Mar, [facility] [place] [facility] [address] [id number] [place] [address] Mar, [facility] [place] [facility] [address] [id number] [place] [address] 23 Feb, 2011 [facility] [place] [facility] [address] [id number], [place] [address] Feb, [facility] [place] [facility] [address] [id number] [place] [address] 14 Feb, 2011 [facility] [place] [facility] [address] [id number], [place] [address] 14 Feb, 2011 [facility] [place] [facility] [address] [id number], [place] [address] 07 Feb, 2011 [facility] [place] [facility] [address] [id number] [place] [address] Feb, [facility] [place] [facility] [address] [id number], [place] [address] 04 Feb, 2011 [facility] [place] [facility] [address] [facility] [id number], [place] [address] 10 Jan, 2011 [facility] [place] [facility] [address] [id number] [place] [address] 12 Dec, 2010 [facility] [address] [id number] [place] [address] 11 Oct, 2010 [facility] [address] [id number] [place] [address] 10 Jun, 2010 [facility] [address] [id number] [place] [address] 23 Mar, 2010 [facility] [address] [id number] [place] [address] 23 Mar, 2010 [facility] [address] [id number] [place] [address] 16 Mar, 2010 [facility] [address] [id number] [place] [address] 16 Mar, 2010 [facility] [address] [id number] [place] [address] 15 Mar, 2010 [facility] [address] [id number] [place] [address] 10 Mar, 2010 [facility] [address] [id number] [place] [address] 10 Mar, 2010 [facility] [address] [facility] [id number] [place] [address] 05 Mar, 2010 [facility] [address] [id number] [place] [address] 03 Mar, 2010 [facility] [address] [id number] [place] [address] Mar, [facility] [address] [id number] [place] [address] Jan, [facility] [address] [id number] [place] [address] Jan, [facility] [address] [id number] [place] [address] Jan, [facility] [address] [id number] [address] Nov, [facility] [address] [place] [address] Oct, [facility] [address] [id number] [address] Mar, [facility] [address] [place] [address] Mar, [facility] [address] [place] [address] Mar, [facility] [address] [address] Mar, [facility] [address] [place] [address] Dec, [facility] [address] [place] [address] August, [facility] [address] [address] August, [facility] [address] [place] [address] Jul, [facility] [address] [place] [address] Jan, [facility] [address] [place] [address] Jan, IMMUNIZATIONS No Known Immunizations SOCIAL HISTORY Never Assessed REASON FOR VISIT Lab (walk-in[facility] PLAN OF CARE VITAL SIGNS MEDICATIONS Unknown Medications RESULTS No Results PROCEDURES Procedure Date Ordered Result Body Site ASSAY THYROID STIM HORMONE Mar 19, 2017 ASSAY OF FREE THYROXINE Mar 19, 2017 COMPLETE CBC W/AUTO DIFF WBC Mar 19, 2017 COMPREHEN METABOLIC PANEL Mar 19, 2017 VENIPUNCT, ROUTINE* Mar 19, 2017 INSTRUCTIONS MEDICATIONS ADMINISTERED No Known [...]
--- OUTSIDE RECORDS SUMMARY | 2018-09-22 03:21 | XMS REPORT ---
Author Author FLORENTINEZEKIEL PUCKETT Organization [facility] Address [address] [place] [address] Care Team Providers Care Marketing Intern Name Role Phone DANICA LERMAY Unavailable PROBLEMS Type Condition ICD9-CM Code ZFC23-KG Code Onset Dates Condition Status SNOMED Code Problem Chronic gastritis without bleeding, unspecified gastritis type K29.50 Active 8083760 Problem Vitamin D deficiency E55.9 Active 54796042 Problem Osteoporosis M81.0 Active 50950225 Problem Unspecified abdominal pain R10.9 Active 573003369 Problem Fibromyalgia M79.7 Active 00022572 Problem Chronic pain syndrome G89.4 Active 949213218 Problem Trigger point with back pain M54.9 Active 772550413 Problem Chronic tension-type headache, not intractable G44.229 Active 196197298 Problem RUQ abdominal pain R10.11 Active 022961030 Problem Pancytopenia D61.818 Active 647122513 Problem Right sided sciatica M54.31 Active 64311043 Problem Chronic prescription opiate use Z79.891 Active 394366607 Problem Drug induced constipation K59.03 Active 078294012213723 Problem Leukopenia, unspecified type D72.819 Active 67722308 Problem Atrial fibrillation, unspecified type I48.91 Active 59502555 Problem Allergic rhinitis, unspecified allergic rhinitis type J30.9 Active 03392499 Problem Chronic obstructive pulmonary disease, unspecified COPD type J44.9 Active 00317051 Problem Hypothyroidism, unspecified hypothyroidism type E03.9 Active 71071275 Problem Other constipation K59.09 Active 639087792 Problem Porokeratosis Q82.8 Active 686783505 Problem 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 [id number] [address] Nov, [facility] [id number] [place] [address] Nov, [facility] [id number] [place] [address] Oct, [place] [id number] [place] [address] Sep, Chronic pain syndrome G89.4 [place] [id number] [place] [address] August, Somatic dysfunction of lumbar region M99.03 and Somatic dysfunction of pelvis region M99.05 [facility] [id number] [place] [address] August, Chronic pain syndrome G89.4 [facility] [id number] [place] [address] Jul, Trochanteric bursitis of left hip M70.62 and Trochanteric bursitis, right hip M70.61 [facility] [id number] [place] [address] Jul, [facility] [id number] [place] [address] Jul, Chronic pain syndrome G89.4 [facility] [id number] [place] [address] Jul, Hypothyroidism, unspecified hypothyroidism type E03.9 [facility] [id number] [place] [address] Jul, Hypothyroidism, unspecified hypothyroidism type E03.9 [facility] [id number] [place] [address] Jul, Chronic tension-type headache, not intractable G44.229 ; Atrial fibrillation, unspecified type I48.91 ; Chronic pain syndrome G89.4 ; Hypothyroidism, unspecified hypothyroidism type E03.9 ; Pancytopenia D61.818 ; History of hepatitis C Z86.19 ; Vaginal atrophy N95.2 ; RUQ abdominal pain R10.11 ; Chronic prescription opiate use Z79.891 ; Osteoporosis M81.0 and Screening for breast cancer Z12.31 [place] [id number] [place] [address] Jun, [place] [id number] [place] [address] May, [place] [id number] [place] [address] May, [facility] [id number] [place] [address] May, [facility] [id number] [place] [address] Apr, [facility] [id number] [place] [address] Apr, Hypothyroidism, unspecified hypothyroidism type E03.9 [facility] [id number] [place] [address] Apr, Hypothyroidism, unspecified hypothyroidism type E03.9 and Leukopenia, unspecified type D72.819 [place] [id number] [place] [address] Mar, [place] [id number] [place] [address] Mar, Leukopenia, unspecified type D72.819 [facility] [id number] [place] [address] Mar, Hypothyroidism, unspecified hypothyroidism type E03.9 and Low hemoglobin D64.9 [place] [address] [address] Mar, Hypothyroidism, unspecified hypothyroidism type E03.9 [place] [address] [address] Mar, Osteoporosis M81.0 ; Low hemoglobin D64.9 and Hypothyroidism, unspecified hypothyroidism type E03.[address] [address] Mar, Hypothyroidism, unspecified hypothyroidism type E03.9 ; Bilirubin in urine R82.2 and Pancytopenia D61.[address] [address] Feb, [facility] [address] [address] Feb, Cough R05 and Bronchitis J40 [facility] [address] [address] 14 Feb, 2017 Other viral agents as the cause of diseases classified elsewhere B97.89 and Acute upper respiratory infection, unspecified J06.[address] [address] Feb, Fibromyalgia M79.7 ; Chronic pain syndrome G89.4 ; Hypothyroidism, unspecified hypothyroidism type E03.9 ; Primary insomnia F51.01 ; Osteoporosis M81.0 ; Vision abnormalities H53.9 ; Pancytopenia D61.818 ; BMI 28.0-28.9,adult Z68.28 and Encounter for immunization Z23 [address] [address] Feb, Neuroma D36.10 and Capsulitis of right foot M77.[address] [address] Feb, [facility] [address] [address] Feb, Hypothyroidism, unspecified hypothyroidism type E03.9 [facility] [id number] [place] [address] Jan, [facility] [id number] [place] [address] Jan, Atrial fibrillation, unspecified type I48.91 [facility] [id number] [place] [address] Jan, [facility] [id number] [place] [address] Jan, Fibromyalgia M79.7 ; Atrial fibrillation, unspecified type I48.91 ; Pain of left hand M79.642 ; Pain in right hand M79.641 ; Chronic prescription opiate use Z79.891 ; Chronic pain syndrome G89.4 ; Elevated fasting glucose R73.01 and Hypothyroidism, unspecified hypothyroidism type E03.9 [facility] [address] [address] Jan, [facility] [id number] [place] [address] Dec, Trochanteric bursitis of both hips M70.61 [facility] [id number] [place] [address] Dec, [facility] [id number] [place] [address] Dec, [facility] [id number] [place] [address] Nov, [facility] [id number] [place] [address] Nov, Unilateral headache R51 [facility] [id number] [place] [address] Nov, 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 [id number] [place] [address] Oct, [facility] [id number] [place] [address] Oct, [facility] [address] [address] Sep, Hypothyroidism, unspecified hypothyroidism type E03.9 [place] [address] [address] Sep, Hypothyroidism, unspecified hypothyroidism type E03.9 and Bilirubin in urine R82.2 [place] [id number] [place] [address] Sep, Trochanteric bursitis of both hips M70.61 [place] [id number] [place] [address] Sep, Hypothyroidism, unspecified hypothyroidism type E03.9 ; Dysuria R30.0 ; Chronic tension-type headache, not intractable G44.229 and Drug induced constipation K59.03 [place] [id number] [place] [address] Sep, [facility] [id number] [place] [address] Sep, [facility] [id number] [place] [address] August, [facility] [id number] [place] [address] Jul, [facility] [id number] [place] [address] Jul, Trochanteric bursitis of right hip M70.61 [place] [id number] [place] [address] Jul, Hypothyroidism, unspecified hypothyroidism type E03.9 [facility] [address] [address] Jul, Fibromyalgia M79.7 ; Chronic pain syndrome G89.4 ; Hypothyroidism, unspecified hypothyroidism type E03.9 and Other constipation K59.09 [facility] [address] [address] Jun, Swollen tonsil J35.1 and Strep throat J02.0 [place] [address] [address] Jun, [place] [address] [address] Jun, Acute maxillary sinusitis J01.00 [place] [address] [address] Jun, Hypothyroidism, unspecified hypothyroidism type E03.9 [place] [id number] [place] [address] Jun, Chronic pain syndrome G89.4 ; Fibromyalgia M79.7 ; Hypothyroidism, unspecified hypothyroidism type E03.9 and Chronic prescription opiate use Z79.891 [place] [id number] [place] [address] May, [place] [address] [address] Apr, Hypothyroidism, unspecified hypothyroidism type E03.9 [place] [id number] [place] [address] Apr, [place] [address] [address] Apr, Lipid screening Z13.220 and Hypothyroidism, unspecified hypothyroidism type E03.9 [place] [address] [address] Apr, [place] [id number] [place] [address] Mar, Trochanteric bursitis of both hips M70.61 [place] [id number] [place] [address] Mar, [place] [id number] [place] [address] Mar, Plantar fasciitis M72.2 and Porokeratosis Q82.8 [place] [id number] [place] [address] Feb, Lipid screening Z13.220 ; Vitamin D deficiency E55.9 and Hypothyroidism, unspecified hypothyroidism type E03.9 [place] [id number] [place] [address] 16 Feb, 2016 Chronic pain syndrome G89.4 ; Hypothyroidism, unspecified hypothyroidism type E03.9 ; Pancytopenia D61.818 ; Vaginal atrophy N95.2 ; Chronic gastritis without bleeding, unspecified gastritis type K29.50 ; Vitamin D deficiency E55.9 ; Chronic prescription opiate use Z79.891 ; Adverse effect of other opioids, initial encounter T40.2X5A ; Drug induced constipation K59.03 ; Lipid screening Z13.220 and Encounter for immunization Z23 [place] [id number] [place] [address] Feb, [place] [id number] [place] [address] Feb, Ingrown toenail L60.0 [place] [id number] [place] [address] Jan, [place] [address] [address] Jan, Trochanteric bursitis of both hips M70.61 [place] [id number] [place] [address] Jan, [facility] [address] [address] Jan, [facility] [id number] [place] [address] Jan, [facility] [address] [address] Jan, Right sided sciatica M54.31 [facility] [id number] [place] [address] 23 Dec, [address] [facility] [id number] [place] [address] 22 Dec, 2015 [facility] [id number] [place] [address] Dec, [facility] [id number] [place] [address] Dec, [facility] [id number] [place] [address] Dec, Osteoarthritis of right hip, unspecified osteoarthritis type M16.11 and Bursitis of right hip M70.71 [facility] [address] [address] Nov, [facility] [address] [address] Nov, [facility] [address] [address] Nov, [facility] [id number] [place] [address] Nov, Hypothyroidism, unspecified hypothyroidism type E03.9 ; Vitamin D deficiency E55.9 and History of hepatitis C Z86.19 [facility] [address] [address] Nov, Right upper quadrant pain R10.11 ; History of hepatitis C Z86.19 and Low back pain M54.5 [facility] [id number] [place] [address] Oct, Trochanteric bursitis, right hip M70.61 [facility] [id number] [place] [address] Oct, [facility] [id number] [place] [address] Oct, [facility] [id number] [place] [address] Oct, Trochanteric bursitis of both hips M70.61 and Right sided sciatica M54.31 [place] [id number] [place] [address] Oct, Trochanteric bursitis of both hips M70.61 [place] [id number] [place] [address] Oct, RUQ abdominal pain R10.11 [place] [id number] [place] [address] Oct, Sciatic leg pain M54.30 [place] [id number] [place] [address] Oct, RUQ abdominal pain R10.11 [place] [id number] [place] [address] 07 Oct, 2015 RUQ abdominal pain R10.11 ; History of hepatitis C Z86.19 and Trigger point with back pain M54.9 [place] [id number] [place] [address] Sep, [place] [id number] [place] [address] Sep, Right sided sciatica M54.31 [place] [id number] [place] [address] Sep, Hypothyroidism, unspecified hypothyroidism type E03.9 and Vitamin D deficiency E55.9 [place] [id number] [place] [address] Sep, Plantar fasciitis M72.2 and Porokeratosis Q82.8 [place] [id number] [place] [address] Sep, Hypothyroidism, unspecified hypothyroidism type E03.9 ; Chronic pain syndrome G89.4 ; Polyneuropathy associated with underlying disease G63 and Vitamin D deficiency E55.9 [place] [id number] [place] [address] August, [place] [address] [address] Jul, Plantar fasciitis M72.2 [place] [address] [address] Jul, Trochanteric bursitis, right hip M70.61 [place] [id number] [place] [address] Jul, Hypothyroidism, unspecified hypothyroidism type E03.9 [place] [id number] [place] [address] Jul, Hypothyroidism, unspecified hypothyroidism type E03.9 ; Chronic pain syndrome G89.4 and Polyneuropathy associated with underlying disease G63 [place] [id number] [place] [address] Jun, Trochanteric bursitis of both hips M70.61 [place] [id number] [place] [address] Jun, Vitamin D deficiency E55.9 ; Osteoporosis M81.0 ; Low back pain M54.5 and Plantar fasciitis M72.2 [place] [id number] [place] [address] May, Vitamin D deficiency E55.9 and Hypothyroidism, unspecified hypothyroidism type E03.9 [facility] [id number] [place] [address] 23 May, 2015 Acute maxillary sinusitis J01.00 [facility] [id number] [place] [address] 18 May, 2015 Osteoporosis M81.0 and Hypothyroidism, unspecified hypothyroidism type E03.9 [facility] [id number] [place] [address] May, Osteoporosis M81.0 [facility] [id number] [place] [address] May, [facility] [id number] [place] [address] Apr, [facility] [id number] [place] [address] Apr, Trochanteric bursitis of both hips M70.61 [facility] [id number] [place] [address] Apr, Hypothyroidism, unspecified hypothyroidism type E03.9 [place] [id number] [place] [address] Apr, Chronic pain syndrome G89.4 ; Bilateral low back pain with sciatica, sciatica laterality unspecified M54.40 ; Pain in right hip M25.551 ; Pain in left hip M25.552 ; Chronic prescription opiate use Z79.899 ; Primary insomnia F51.01 and Hypothyroidism, unspecified hypothyroidism type E03.9 [facility] [address] [address] Mar, [facility] [id number] [place] [address] Feb, [facility] [id number] [place] [address] Feb, Chronic pain syndrome G89.4 and Major depression F32.9 [place] [id number] [place] [address] 16 Feb, 2015 Fatigue R53.83 [place] [address] [address] 13 Feb, 2015 History of fracture Z87.81 [place] [id number] [place] [address] 12 Feb, 2015 Major depression, recurrent F33.9 and Generalized anxiety disorder F41.1 [place] [id number] [place] [address] Feb, [place] [address] [address] Jan, Hypothyroidism, unspecified hypothyroidism type E03.9 [place] [id number] [place] [address] Jan, Abdominal pain R10.9 and Hypothyroidism, unspecified hypothyroidism type E03.9 [place] [address] [id number] [place] [phone] Jan, Abdominal pain R10.9 [place] [address] [place] [place] [id number] [place] [phone] Jan, Hypothyroidism, unspecified hypothyroidism type E03.9 [place] [address] [place] [address] [id number] [place] [id number] Jan, [place] [address] [id number] [place] [phone] Jan, 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 [id number] [place] [phone] Jan, Hypothyroidism, unspecified hypothyroidism type E03.9 [facility] [address] [phone] Jan, Unspecified abdominal pain R10.9 ; Chronic obstructive pulmonary disease, unspecified COPD type J44.9 ; Allergic rhinitis, unspecified allergic rhinitis type J30.9 ; Chronic pain syndrome G89.4 ; Hypothyroidism, unspecified hypothyroidism type E03.9 ; Chest pain, unspecified chest pain type R07.9 and Plantar fasciitis M72.2 [place] [address] [phone] Jan, Trochanteric bursitis of both hips M70.61 [facility] [address] [phone] Dec, [facility] [address] [phone] Nov, [facility] [id number] [place] [phone] Nov, [facility] [address] [phone] Nov, Constipation 564.00 [facility] [address] [place] [id number] [place] [phone] Oct, Chronic pain 338.[address] [facility] [address] [phone] Oct, [facility] [id number] [place] [phone] Sep, [facility] [address] [phone] Sep, [facility] [id number] [address] Sep, [facility] [facility] [id number] [address] Sep, [facility] [id number] [address] Sep, [facility] [id number] [place] [address] Sep, [facility] [id number] [place] [address] Sep, COPD exacerbation 491.21 ; Chronic pain 338.29 ; Hypothyroidism 244.9 and Pancytopenia 284.19 [facility] [id number] [address] August, [facility] [id number] [address] Jul, [facility] [id number] [address] Jul, [facility] [id number] [address] Jun, [facility] [id number] [address] Jun, [facility] [id number] [address] Jun, [facility] [id number] [address] Jun, [facility] [id number] [address] Jun, [facility] [id number] [address] May, [facility] [id number] [place] [address] May, 2014 [facility] [place] [facility] [address] [id number] [place] [address] May, 2014 [facility] [place] [facility] [address] [id number] [place] [address] May, 2014 [facility] [place] [facility] [address] [facility] [id number] [place] [address] May, 2014 [facility] [place] [facility] [address] [id number] [place] [address] May, 2014 [facility] [place] [facility] [address] [facility] [id number] [place] [address] May, 2014 [facility] [place] [facility] [address] [facility] [id number] [place] [address] May, 2014 [facility] [place] [facility] [address] [facility] [id number] [place] [address] May, 2014 [facility] [place] [facility] [address] [facility] [id number] [place] [address] May, [facility] [place] [facility] [address] [facility] [id number] [place] [address] May, [facility] [place] [facility] [address] [facility] [id number] [place] [address] May, [facility] [place] [facility] [address] [facility] [id number] [address] May, [facility] [place] [facility] [address] [facility] [id number] [place] [address] Apr, [facility] [place] [facility] [address] [facility] [id number] [place] [address] Apr, [facility] [place] [facility] [address] [facility] [id number] [place] [address] Apr, [facility] [place] [facility] [address] [facility] [id number] [address] Apr, [facility] [place] [facility] [address] [id number] [place] [address] Apr, [facility] [place] [facility] [address] [id number] [place] [address] Apr, [facility] [place] [facility] [address] [id number] [place] [address] Apr, [facility] [place] [facility] [address] [id number] [place] [address] Mar, [facility] [place] [facility] [address] [id number] [place] [address] Mar, [facility] [place] [facility] [address] [id number] [place] [address] Mar, [facility] [place] [facility] [address] [id number] [place] [address] Mar, [facility] [place] [facility] [address] [id number] [place] [address] Mar, [facility] [place] [facility] [address] [id number] [place] [address] Mar, [facility] [place] [facility] [address] [id number] [place] [address] Feb, [facility] [place] [facility] [address] [id number] [place] [address] Feb, [facility] [place] [facility] [address] [id number] [place] [address] Feb, [facility] [place] [facility] [address] [id number] [place] [address] Feb, [facility] [place] [facility] [address] [id number] [place] [address] Feb, [facility] [place] [facility] [address] [id number] [place] [address] Feb, [facility] [place] [facility] [address] [id number] [place] [address] Jan, [facility] [place] [facility] [address] [id number] [place] [address] Jan, [facility] [place] [facility] [address] [id number] [place] [address] Jan, [facility] [place] [facility] [address] [id number] [place] [address] Jan, [facility] [place] [facility] [address] [id number] [place] [address] Jan, [facility] [place] [facility] [address] [id number] [place] [address] Jan, [facility] [place] [facility] [address] [id number] [place] [address] Jan, [facility] [place] [facility] [address] [id number] [place] [address] Jan, [facility] [place] [facility] [address] [id number] [place] [address] Dec, [facility] [place] [facility] [address] [id number] [place] [address] 25 Dec, 2013 [facility] [place] [facility] [address] [id number] [place] [address] 23 Dec, 2013 [facility] [place] [facility] [address] [id number] [place] [address] 23 Dec, 2013 [facility] [place] [facility] [address] [id number] [place] [address] 13 Dec, 2013 [facility] [place] [facility] [address] [id number] [place] [address] 10 Dec, 2013 [facility] [place] [facility] [address] [id number] [place] [address] 10 Dec, 2013 [facility] [place] [facility] [address] [id number] [place] [address] Nov, [facility] [place] [facility] [address] [id number] [place] [address] Nov, [facility] [place] [facility] [address] [id number] [place] [address] Oct, [facility] [place] [facility] [address] [id number] [place] [address] Oct, [facility] [place] [facility] [address] [id number] [place] [address] Oct, [facility] [place] [facility] [address] [id number] [place] [address] Oct, [facility] [place] [facility] [address] [id number] [place] [address] Sep, [facility] [place] [facility] [address] [id number] [place] [address] Sep, [facility] [place] [facility] [address] [id number] [place] [address] Sep, [facility] [place] [facility] [address] [id number] [place] [address] Sep, [facility] [place] [facility] [address] [id number] [place] [address] Sep, [facility] [place] [facility] [address] [id number] [place] [address] Sep, [facility] [place] [facility] [address] [id number] [place] [address] Sep, [facility] [place] [facility] [address] [id number] [place] [address] Sep, [facility] [place] [facility] [address] [id number] [place] [address] August, [facility] [place] [facility] [address] [id number] [place] [address] August, [facility] [place] [facility] [address] [id number] [place] [address] August, [facility] [place] [facility] [address] [id number] [place] [address] August, [facility] [place] [facility] [address] [id number] [place] [address] Jul, [facility] [place] [facility] [address] [id number] [place] [address] Jul, [facility] [place] [facility] [address] [id number] [place] [address] Jul, [facility] [place] [facility] [address] [id number] [place] [address] 24 Jul, 2013 [facility] [place] [facility] [address] [id number] [place] [address] Jul, [facility] [place] [facility] [address] [id number] [place] [address] 16 Jul, 2013 [facility] [place] [facility] [address] [id number] [place] [address] Jul, [facility] [place] [facility] [address] [id number] [place] [address] Jul, [facility] [place] [facility] [address] [id number] [place] [address] Jun, [facility] [place] [facility] [address] [id number] [place] [address] Jun, [facility] [place] [facility] [address] [id number] [place] [address] Jun, [facility] [place] [facility] [address] [id number] [place] [address] Jun, [facility] [place] [facility] [address] [id number] [place] [address] Jun, [facility] [place] [facility] [address] [id number] [place] [address] Jun, [facility] [place] [facility] [address] [id number] [place] [address] Jun, [facility] [place] [facility] [address] [id number] [place] [address] Jun, [facility] [place] [facility] [address] [id number] [place] [address] May, [facility] [place] [facility] [address] [id number] [place] [address] May, [facility] [place] [facility] [address] [id number] [place] [address] Apr, [facility] [place] [facility] [address] [id number] [place] [address] Apr, [facility] [address] [id number] [place] [address] Mar, [facility] [place] [facility] [address] [id number] [place] [address] Mar, [facility] [place] [facility] [address] [id number] [place] [address] Mar, [facility] [place] [facility] [address] [id number] [place] [address] Mar, [facility] [place] [facility] [address] [id number] [place] [address] Mar, [facility] [place] [facility] [address] [id number] [place] [address] Mar, [facility] [place] [facility] [address] [id number] [place] [address] 17 Mar, 2013 [facility] [place] [facility] [address] [id number] [place] [address] Feb, [facility] [place] [facility] [address] [id number] [place] [address] Feb, [facility] [place] [facility] [address] [id number] [place] [address] Feb, [facility] [address] [id number] [place] [address] Feb, [facility] [place] [facility] [address] [id number] [place] [address] Feb, [facility] [place] [facility] [address] [id number] [place] [address] Feb, [facility] [place] [facility] [address] [id number] [place] [address] 26 Dec, 2012 [facility] [place] [facility] [address] [id number] [place] [address] 18 Dec, 2012 [facility] [place] [facility] [address] [id number] [place] [address] Dec, [facility] [place] [facility] [address] [id number] [place] [address] Dec, [facility] [place] [facility] [address] [id number] [place] [address] Dec, [facility] [place] [facility] [address] [id number] [place] [address] Nov, [facility] [place] [facility] [address] [id number] [place] [address] Nov, [facility] [place] [facility] [address] [id number] [place] [address] Oct, [facility] [place] [facility] [address] [id number] [place] [address] August, [facility] [place] [facility] [address] [id number] [place] [address] August, [facility] [place] [facility] [address] [id number] [place] [address] August, [facility] [place] [facility] [address] [id number] [place] [address] Jul, [facility] [place] [facility] [address] [id number] [place] [address] Jul, [facility] [address] [id number] [place] [address] 04 Jul, 2012 [facility] [address] [id number] [place] [address] 27 Jun, 2012 [facility] [address] [id number] [place] [address] 26 Jun, 2012 [facility] [address] [id number] [place] [address] Jun, [facility] [address] [id number] [place] [address] Jun, [facility] [address] [id number] [place] [address] Jun, [facility] [address] [id number] [place] [address] 15 Jun, 2012 [facility] [address] [id number] [place] [address] Jun, [facility] [address] [id number] [place] [address] May, [facility] [address] [id number] [place] [address] May, [facility] [address] [id number] [place] [address] May, [facility] [address] [id number] [place] [address] May, [facility] [address] [id number] [place] [address] Apr, [facility] [address] [id number] [place] [address] Apr, [facility] [address] [id number] [place] [address] Apr, [facility] [place] [facility] [address] [id number] [place] [address] Mar, [facility] [place] [facility] [address] [id number] [place] [address] Mar, [facility] [place] [facility] [address] [id number] [place] [address] Mar, [facility] [place] [facility] [address] [id number] [place] [address] Mar, [facility] [place] [facility] [address] [id number] [place] [address] Mar, [facility] [place] [facility] [address] [id number] [place] [address] Mar, [facility] [place] [facility] [address] [id number] [place] [address] Mar, [facility] [place] [facility] [address] [id number] [place] [address] Mar, [facility] [place] [facility] [address] [id number] [place] [address] Feb, [facility] [place] [facility] [address] [id number] [address] Feb, [facility] [place] [facility] [address] [id number] [place] [address] Feb, [facility] [place] [facility] [address] [id number] [address] Jan, [facility] [place] [facility] [address] [id number] [place] [address] Jan, [facility] [place] [facility] [address] [id number] [address] Jan, [facility] [place] [facility] [address] [id number] [place] [address] Jan, [facility] [place] [facility] [address] [id number] [place] [address] 18 Jan, 2012 [facility] [place] [facility] [address] [id number] [place] [address] 08 Jan, 2012 [facility] [place] [facility] [address] [id number] [place] [address] Jan, [facility] [place] [facility] [address] [id number] [place] [address] 27 Dec, 2011 [facility] [place] [facility] [address] [id number] [place] [address] 24 Dec, 2011 [facility] [place] [facility] [address] [id number] [place] [address] 10 Dec, 2011 [facility] [place] [facility] [address] [id number] [place] [address] Nov, [facility] [place] [facility] [address] [id number] [place] [address] Nov, [facility] [place] [facility] [address] [id number] [place] [address] Nov, [facility] [place] [facility] [address] [id number] [place] [address] Nov, [facility] [place] [facility] [address] [id number] [place] [address] Oct, [facility] [place] [facility] [address] [id number] [place] [address] Oct, [facility] [place] [facility] [address] [id number] [place] [address] Oct, [facility] [place] [facility] [address] [id number] [place] [address] Sep, [facility] [place] [facility] [address] [id number] [place] [address] Sep, [facility] [place] [facility] [address] [id number] [place] [address] Sep, [facility] [place] [facility] [address] [id number] [place] [address] Sep, [facility] [place] [facility] [address] [id number] [place] [address] Sep, [facility] [place] [facility] [address] [id number] [place] [address] Sep, [facility] [place] [facility] [address] [id number] [place] [address] August, [facility] [place] [facility] [address] [id number] [place] [address] Jul, [facility] [place] [facility] [address] [id number] [place] [address] Jul, [facility] [place] [facility] [address] [id number] [place] [address] Jul, [facility] [place] [facility] [address] [id number] [place] [address] Jul, [facility] [place] [facility] [address] [id number] [place] [address] Jul, [facility] [place] [facility] [address] [id number] [place] [address] 29 Jun, 2011 [facility] [place] [facility] [address] [id number] [place] [address] Jun, [facility] [place] [facility] [address] [id number] [place] [address] Jun, [facility] [place] [facility] [address] [id number] [place] [address] 15 Jun, 2011 [facility] [place] [facility] [address] [id number] [place] [address] Jun, [facility] [place] [facility] [address] [id number] [place] [address] May, [facility] [place] [facility] [address] [id number] [place] [address] May, [facility] [address] [id number] [place] [address] May, [facility] [place] [facility] [address] [id number] [place] [address] 06 May, 2011 [facility] [place] [facility] [address] [id number] [place] [address] May, [facility] [place] [facility] [address] [id number] [place] [address] May, [facility] [place] [facility] [address] [id number] [place] [address] May, [facility] [place] [facility] [address] [id number] [place] [address] Apr, [facility] [address] [id number] [place] [address] 29 Mar, 2011 [facility] [place] [facility] [address] [id number] [place] [address] Mar, [facility] [place] [facility] [address] [id number] [place] [address] Mar, [facility] [place] [facility] [address] [id number] [place] [address] Mar, [facility] [place] [facility] [address] [id number] [place] [address] 08 Mar, 2011 [facility] [place] [facility] [address] [id number] [place] [address] 23 Feb, 2011 [facility] [place] [facility] [address] [id number] [place] [address] 14 Feb, 2011 [facility] [place] [facility] [address] [id number] [place] [address] 14 Feb, 2011 [facility] [place] [facility] [address] [id number] [place] [address] 14 Feb, 2011 [facility] [place] [facility] [address] [id number] [place] [address] Feb, [facility] [place] [facility] [address] [id number] [place] [address] Feb, [facility] [place] [facility] [address] [id number] [place] [address] Feb, [facility] [place] [facility] [address] [id number] [place] [address] Jan, [facility] [place] [facility] [address] [id number] [place] [address] Dec, [facility] [place] [facility] [address] [id number] [place] [address] Oct, [facility] [place] [facility] [address] [id number] [place] [address] Jun, [facility] [place] [facility] [address] [id number] [place] [address] Mar, [facility] [place] [facility] [address] [id number] [place] [address] 23 Mar, 2010 [facility] [place] [facility] [address] [id number] [place] [address] 16 Mar, 2010 [facility] [place] [facility] [address] [id number] [place] [address] 16 Mar, 2010 [facility] [place] [facility] [address] [id number] [place] [address] 15 Mar, 2010 [facility] [place] [facility] [address] [id number] [place] [address] 10 Mar, 2010 [facility] [place] [facility] [address] [id number] [place] [address] 10 Mar, 2010 [facility] [place] [facility] [address] [id number] [place] [address] 05 Mar, 2010 [facility] [place] [facility] [address] [id number] [place] [address] Mar, [facility] [place] [facility] [address] [id number] [place] [address] Mar, [facility] [place] [facility] [address] [id number] [place] [address] Jan, [facility] [address] [id number] [place] [address] Jan, [facility] [place] [facility] [address] [id number] [place] [address] Jan, [facility] [address] [id number] [place] [address] Nov, [facility] [place] [facility] [address] [id number] [place] [address] Oct, [facility] [address] [id number] [place] [address] Mar, [facility] [place] [facility] [address] [id number] [place] [address] Mar, [facility] [address] [id number] [place] [address] Mar, [facility] [place] [facility] [address] [id number] [place] [address] Mar, [facility] [place] [facility] [address] [id number] [place] [address] 17 Dec, 2008 [facility] [place] [facility] [address] [id number] [place] [address] August, [facility] [place] [facility] [address] [id number] [place] [address] August, [facility] [place] [facility] [address] [facility] [id number] [place] [address] Jul, [facility] [place] [facility] [address] [id number] [place] [address] Jan, [facility] [place] [facility] [address] [facility] [id number] [place] [address] Jan, IMMUNIZATIONS No Known Immunizations SOCIAL HISTORY Never Assessed REASON FOR VISIT Lab (walk-in) PLAN OF CARE VITAL SIGNS MEDICATIONS Unknown Medications RESULTS No Results PROCEDURES Procedure Date Ordered Result Body Site ASSAY THYROID STIM HORMONE May 10, 2017 ASSAY OF FREE THYROXINE May 10, 2017 COMPLETE CBC W/AUTO DIFF WBC May 10, 2017 No Charge May 10, 2017 VENIPUNCT, ROUTINE* May 10, 2017 INSTRUCTIONS MEDICATIONS ADMINISTERED No Known Medications [...]
--- OUTSIDE RECORDS SUMMARY | 2018-09-22 03:22 | XMS REPORT ---
Author Author ARIADNA OJEDA [facility] Address [address] [place] [address] Care Team Providers Care Soubrette Name Role Phone ARIADNA OJEDA Unavailable PROBLEMS Type Condition ICD9-CM Code NOI67-CL Code Onset Dates Condition Status SNOMED Code Problem Chronic gastritis without bleeding, unspecified gastritis type K29.50 Active 8982894 Problem Vitamin D deficiency E55.9 Active 97588009 Problem Osteoporosis M81.0 Active 11916075 Problem Unspecified abdominal pain R10.9 Active 186456552 Problem Fibromyalgia M79.7 Active 72073677 Problem Chronic pain syndrome G89.4 Active 502263490 Problem Trigger point with back pain M54.9 Active 649995840 Problem Chronic tension-type headache, not intractable G44.229 Active 375568392 Problem RUQ abdominal pain R10.11 Active 948139396 Problem Pancytopenia D61.818 Active 932066468 Problem Right sided sciatica M54.31 Active 85567672 Problem Chronic prescription opiate use Z79.891 Active 144968613 Problem Drug induced constipation K59.03 Active 471665675477607 Problem Leukopenia, unspecified type D72.819 Active 38568494 Problem Atrial fibrillation, unspecified type I48.91 Active 65969899 Problem Allergic rhinitis, unspecified allergic rhinitis type J30.9 Active 26088443 Problem Chronic obstructive pulmonary disease, unspecified COPD type J44.9 Active 41392250 Problem Hypothyroidism, unspecified hypothyroidism type E03.9 Active 92441575 Problem Other constipation K59.09 Active 877143205 Problem Porokeratosis Q82.8 Active 601379381 Problem 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 Active 453428614 Problem Allergy to intravenous contrast Z91.041 Active 143248041 Problem Vaginal atrophy N95.2 Active 075874297 Problem Major depression, recurrent F33.9 Active 24924542 Problem History of hepatitis C Z86.19 Active 90296821051353 Problem Hot flashes N95.1 Active 672553253 Problem Plantar fasciitis M72.2 Active 496930943 Problem Polyneuropathy associated with underlying disease G63 Active 521857736 Problem Primary insomnia F51.01 Active 0543810 Problem Low back pain M54.5 Active 864592184 ALLERGIES No Information ENCOUNTERS Encounter Location Date Diagnosis [facility] [id number] [address] Jul, [facility] [id number] [place] [address] Jul, [facility] [id number] [place] [address] Jun, [facility] [id number] [place] [address] May, [facility] [id number] [place] [address] May, [facility] [id number] [place] [address] May, [facility] [id number] [place] [address] Apr, [facility] [id number] [place] [address] Apr, Hypothyroidism, unspecified hypothyroidism type E03.9 [facility] [address] [place] [address] Apr, Hypothyroidism, unspecified hypothyroidism type E03.9 and Leukopenia, unspecified type D72.819 [facility] [address], [place] [address] Mar, [facility] [id number] [place] [address] Mar, Leukopenia, unspecified type D72.819 [facility] [id number] [place] [address] Mar, Hypothyroidism, unspecified hypothyroidism type E03.9 and Low hemoglobin D64.9 [place] [id number] [place] [address] Mar, Hypothyroidism, unspecified hypothyroidism type E03.9 [facility] [id number] [place] [address] Mar, Osteoporosis M81.0 ; Low hemoglobin D64.9 and Hypothyroidism, unspecified hypothyroidism type E03.[address] [address] Mar, Hypothyroidism, unspecified hypothyroidism type E03.9 ; Bilirubin in urine R82.2 and Pancytopenia D61.[address] [address] Feb, [facility] [address] [address] Feb, Cough R05 and Bronchitis J40 [facility] [place] [address] [address] 14 Feb, 2017 Other viral agents as the cause of diseases classified elsewhere B97.89 and Acute upper respiratory infection, unspecified J06.9 [id number] [place] [address] Feb, Fibromyalgia M79.7 ; Chronic pain syndrome G89.4 ; Hypothyroidism, unspecified hypothyroidism type E03.9 ; Primary insomnia F51.01 ; Osteoporosis M81.0 ; Vision abnormalities H53.9 ; Pancytopenia D61.818 ; BMI 28.0-28.9,adult Z68.28 and Encounter for immunization Z23 [address] [address] Feb, Neuroma D36.10 and Capsulitis of right foot M77.51 [place] [id number] [place] [address] Feb, [address] [place] [address] Feb, Hypothyroidism, unspecified hypothyroidism type E03.9 [facility] [id number] [place] [address] Jan, [facility] [id number] [place] [address] Jan, Atrial fibrillation, unspecified type I48.91 [facility] [id number] [place] [address] Jan, [facility] [address] [place] [address] Jan, Fibromyalgia M79.7 ; Atrial fibrillation, unspecified type I48.91 ; Pain of left hand M79.642 ; Pain in right hand M79.641 ; Chronic prescription opiate use Z79.891 ; Chronic pain syndrome G89.4 ; Elevated fasting glucose R73.01 and Hypothyroidism, unspecified hypothyroidism type E03.9 [facility] [id number] [place] [address] Jan, [facility] [id number] [place] [address] Dec, Trochanteric bursitis of both hips M70.61 [facility] [id number] [place] [address] Dec, [facility] [id number] [place] [address] Dec, [facility] [id number] [place] [address] Nov, [facility] [id number] [place] [address] Nov, Unilateral headache R51 [facility] [address] [place] [address] Nov, [facility] [address] [place] [address] [address] Oct, Unilateral headache R51 ; 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 and Allergy to intravenous contrast Z91.041 [facility] [address] [address] Oct, [facility] [address] [address] Oct, [facility] [address] [address] Sep, Hypothyroidism, unspecified hypothyroidism type E03.9 [place] [address] [address] Sep, Hypothyroidism, unspecified hypothyroidism type E03.9 and Bilirubin in urine R82.2 [place] [address] [address] Sep, Trochanteric bursitis of both hips M70.61 [place] [address] [address] Sep, Hypothyroidism, unspecified hypothyroidism type E03.9 ; Dysuria R30.0 ; Chronic tension-type headache, not intractable G44.229 and Drug induced constipation K59.03 [facility] [address] [place] [address] Sep, [facility] [address] [place] [address] Sep, [facility] [id number] [place] [address] August, [facility] [address] [address] Jul, [facility] [address] [address] Jul, Trochanteric bursitis of right hip M70.61 [place] [address] [address] Jul, Hypothyroidism, unspecified hypothyroidism type E03.9 [facility] [address] [place] [address] Jul, Fibromyalgia M79.7 ; Chronic pain syndrome G89.4 ; Hypothyroidism, unspecified hypothyroidism type E03.9 and Other constipation K59.09 [facility] [id number] [place] [address] Jun, Swollen tonsil J35.1 and Strep throat J02.0 [facility] [address] [address] Jun, [facility] [address] [address] Jun, Acute maxillary sinusitis J01.00 [facility] [id number] [place] [address] Jun, Hypothyroidism, unspecified hypothyroidism type E03.9 [facility] [id number] [place] [address] Jun, Chronic pain syndrome G89.4 ; Fibromyalgia M79.7 ; Hypothyroidism, unspecified hypothyroidism type E03.9 and Chronic prescription opiate use Z79.891 [facility] [id number] [place] [address] May, [facility] [id number] [place] [address] Apr, Hypothyroidism, unspecified hypothyroidism type E03.9 [facility] [id number] [place] [address] Apr, [facility] [address] [address] Apr, Lipid screening Z13.220 and Hypothyroidism, unspecified hypothyroidism type E03.9 [facility] [id number] [place] [address] Apr, [facility] [id number] [place] [address] Mar, Trochanteric bursitis of both hips M70.61 [facility] [id number] [place] [address] Mar, [facility] [address] [place] [address] Mar, Plantar fasciitis M72.2 and Porokeratosis Q82.8 [place] [address] [place] [address] Feb, Lipid screening Z13.220 ; Vitamin D deficiency E55.9 and Hypothyroidism, unspecified hypothyroidism type E03.9 [facility] [place] [address] [place] [address] Feb, Chronic pain syndrome G89.4 ; Hypothyroidism, unspecified hypothyroidism type E03.9 ; Pancytopenia D61.818 ; Vaginal atrophy N95.2 ; Chronic gastritis without bleeding, unspecified gastritis type K29.50 ; Vitamin D deficiency E55.9 ; Chronic prescription opiate use Z79.891 ; Adverse effect of other opioids, initial encounter T40.2X5A ; Drug induced constipation K59.03 ; Lipid screening Z13.220 and Encounter for immunization Z23 [facility] [id number] [place] [address] Feb, [facility] [address] [place] [address] Feb, Ingrown toenail L60.0 [facility] [id number] [place] [address] Jan, [facility] [address] [address] Jan, Trochanteric bursitis of both hips M70.61 [facility] [id number] [place] [address] Jan, [facility] [address], [place] [address] Jan, [facility] [id number] [place] [address] Jan, [facility] [address] [place] [address] Jan, Right sided sciatica M54.31 [facility] [id number] [place] [address] 23 Dec, 2015 Onychomycosis B35.1 [facility] [id number] [place] [address] 22 Dec, 2015 [facility] [id number] [place] [address] Dec, [facility] [id number] [place] [address] 09 Dec, 2015 [facility] [id number] [place] [address] Dec, Osteoarthritis of right hip, unspecified osteoarthritis type M16.11 and Bursitis of right hip M70.71 [facility] [address], [place] [address] Nov, [facility] [address], [place] [address] Nov, [facility] [address], [place] [address] Nov, [facility] [address] [place] [address] Nov, Hypothyroidism, unspecified hypothyroidism type E03.9 ; Vitamin D deficiency E55.9 and History of hepatitis C Z86.19 [facility] [address], [place] [address] 10 Nov, 2015 Right upper quadrant pain R10.11 ; History of hepatitis C Z86.19 and Low back pain M54.5 [facility] [id number] [place] [address] Oct, Trochanteric bursitis, right hip M70.61 [facility] [id number] [place] [address] Oct, [facility] [id number] [place] [address] Oct, [facility] [id number] [place] [address] Oct, Trochanteric bursitis of both hips M70.61 and Right sided sciatica M54.31 [facility] [id number] [place] [address] Oct, Trochanteric bursitis of both hips M70.61 [facility] [id number] [place] [address] Oct, RUQ abdominal pain R10.11 [facility] [place] [id number] [place] [address] Oct, Sciatic leg pain M54.30 [facility] [place] [address] [place] [address] Oct, RUQ abdominal pain R10.11 [facility] [address] [place] [address] Oct, RUQ abdominal pain R10.11 ; History of hepatitis C Z86.19 and Trigger point with back pain M54.9 [facility] [id number] [place] [address] Sep, [facility] [id number] [place] [address] Sep, Right sided sciatica M54.31 [facility] [address] [place] [address] Sep, Hypothyroidism, unspecified hypothyroidism type E03.9 and Vitamin D deficiency E55.9 [place] [address] [place] [address] Sep, Plantar fasciitis M72.2 and Porokeratosis Q82.8 [facility] [address] [place] [address] Sep, Hypothyroidism, unspecified hypothyroidism type E03.9 ; Chronic pain syndrome G89.4 ; Polyneuropathy associated with underlying disease G63 and Vitamin D deficiency E55.9 [facility] [address] [place] [address] August, [place] [address] [address] Jul, Plantar fasciitis M72.2 [facility] [address] [place] [address] Jul, Trochanteric bursitis, right hip M70.61 [facility] [address] [place] [address] Jul, Hypothyroidism, unspecified hypothyroidism type E03.9 [facility] [place] [address] [place] [address] Jul, Hypothyroidism, unspecified hypothyroidism type E03.9 ; Chronic pain syndrome G89.4 and Polyneuropathy associated with underlying disease G63 [facility] [facility] [address] [place] [address] Jun, Trochanteric bursitis of both hips M70.61 [facility] [address] [place] [address] Jun, Vitamin D deficiency E55.9 ; Osteoporosis M81.0 ; Low back pain M54.5 and Plantar fasciitis M72.2 [place] [address] [place] [address] May, Vitamin D deficiency E55.9 and Hypothyroidism, unspecified hypothyroidism type E03.9 [facility] [address] [place] [address] 23 May, 2015 Acute maxillary sinusitis J01.00 [facility] [id number] [place] [address] 18 May, 2015 Osteoporosis M81.0 and Hypothyroidism, unspecified hypothyroidism type E03.9 [facility] [address] [place] [address] May, Osteoporosis M81.0 [facility] [id number] [place] [address] May, [facility] [address] [place] [address] Apr, [facility] [address] [place] [address] Apr, Trochanteric bursitis of both hips M70.61 [facility] [address] [place] [address] Apr, Hypothyroidism, unspecified hypothyroidism type E03.9 [facility] [address] [place] [address] Apr, Chronic pain syndrome G89.4 ; Bilateral low back pain with sciatica, sciatica laterality unspecified M54.40 ; Pain in right hip M25.551 ; Pain in left hip M25.552 ; Chronic prescription opiate use Z79.899 ; Primary insomnia F51.01 and Hypothyroidism, unspecified hypothyroidism type E03.9 [facility] [address], [place] [address] Mar, [facility] [id number] [place] [address] Feb, [facility] [id number] [place] [address] Feb, Chronic pain syndrome G89.4 and Major depression F32.9 [facility] [address] [place] [address] Feb, Fatigue R53.83 [place] [address] [address] Feb, History of fracture Z87.81 [place] [address] [address] Feb, Major depression, recurrent F33.9 and Generalized anxiety disorder F41.1 [place] [address] [address] Feb, [place] [address] [address] Jan, Hypothyroidism, unspecified hypothyroidism type E03.9 [facility] [address] [place] [address] Jan, Abdominal pain R10.9 and Hypothyroidism, unspecified hypothyroidism type E03.9 [facility] [place] [id number] [place] [address] Jan, Abdominal pain R10.9 [facility] [place] [address] [place] [address] Jan, Hypothyroidism, unspecified hypothyroidism type E03.9 [facility] [place] [address] [place] [address] Jan, [facility] [address] [place] [address] Jan, 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) w/o 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 Z01.419 and Hypothyroidism, unspecified hypothyroidism type E03.9 [facility] [address] [place] [address] Jan, 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) w/o 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 Z01.419 ; Abdominal pain R10.9 ; Dyspareunia N94.1 ; Encounter for immunization Z23 ; History of fracture Z87.81 ; Fatigue R53.83 ; Throat fullness R68.89 ; Bruises easily R23.8 ; Hot flashes N95.1 ; Depression F32.9 and Vaginal atrophy N95.2 [facility] [place] [address] [place] [address] Jan, Hypothyroidism, unspecified hypothyroidism type E03.9 [place] [address] [address] Jan, Unspecified abdominal pain R10.9 ; Chronic obstructive pulmonary disease, unspecified COPD type J44.9 ; Allergic rhinitis, unspecified allergic rhinitis type J30.9 ; Chronic pain syndrome G89.4 ; Hypothyroidism, unspecified hypothyroidism type E03.9 ; Chest pain, unspecified chest pain type R07.9 and Plantar fasciitis M72.2 [place] [address] [place] [address] Jan, Trochanteric bursitis of both hips M70.61 [facility] [place] [address] [place] [address] Dec, [facility] [place] [address] [address] Nov, [facility] [id number] [place] [address] Nov, [facility] [place] [address] [place] [address] Nov, Constipation 564.00 [facility] [id number] [place] [address] Oct, Chronic pain 338.29 and Hypothyroidism 244.9 [place] [address] [address] Oct, [facility] [id number] [place] [address] Sep, [facility] [address] [address] Sep, [facility] [address], [place] [address] Sep, [facility] [id number] [place] [address] Sep, [facility] [address], [place] [address] Sep, [facility] [id number] [place] [address] Sep, [facility] [id number] [place] [address] Sep, COPD exacerbation 491.21 ; Chronic pain 338.29 ; Hypothyroidism 244.9 and Pancytopenia 284.19 [facility] [address], [place] [address] August, [facility] [id number] [place] [address] Jul, [facility] [address], [place] [address] Jul, [facility] [address] [place] [address] Jun, [facility] [address], [place] [address] Jun, [facility] [address], [place] [address] Jun, [facility] [address], [place] [address] Jun, [facility] [address] [id number] [place] [id number] Jun, [facility] [id number], [place] [address] May, [facility] [id number] [place] [id number] May, 2014 [facility] [place] [facility] [address] [id number] [place] [address] May, 2014 [facility] [place] [facility] [address] [id number] [place] [address] May, 2014 [facility] [place] [facility] [address] [facility] [id number] [place] [address] May, 2014 [facility] [place] [facility] [address] [id number] [place] [address] May, 2014 [facility] [place] [facility] [address] [id number] [place] [address] May, 2014 [facility] [place] [facility] [address] [facility] [id number] [place] [address] May, 2014 [facility] [place] [facility] [address] [facility] [id number] [place] [address] May, 2014 [facility] [place] [facility] [address] [facility] [id number] [place] [address] May, [facility] [place] [facility] [address] [facility] [id number] [place] [address] May, [facility] [place] [facility] [address] [facility] [id number] [place] [address] May, [facility] [place] [facility] [address] [facility] [id number] [place] [address] May, [facility] [place] [facility] [address] [facility] [id number], [place] [address] Apr, [facility] [place] [facility] [address] [id number] [place] [address] Apr, [facility] [place] [facility] [address] [facility] [id number] [place] [address] Apr, [facility] [place] [facility] [address] [facility] [id number], [place] [address] Apr, [facility] [place] [facility] [address] [id number] [place] [address] Apr, [facility] [place] [facility] [address] [id number] [place] [address] Apr, [facility] [place] [facility] [address] [id number] [place] [address] Apr, [facility] [place] [facility] [address] [id number] [place] [address] Mar, [facility] [place] [facility] [address] [id number] [place] [address] Mar, [facility] [place] [facility] [address] [id number] [place] [address] Mar, [facility] [place] [facility] [address] [id number] [place] [address] Mar, [facility] [place] [facility] [address] [id number] [place] [address] Mar, [facility] [place] [facility] [address] [id number] [place] [address] Mar, [facility] [place] [facility] [address] [id number] [place] [address] Feb, [facility] [place] [facility] [address] [id number] [place] [address] Feb, [facility] [place] [facility] [address] [id number] [place] [address] Feb, [facility] [place] [facility] [address] [id number] [place] [address] Feb, [facility] [place] [facility] [address] [id number] [place] [address] Feb, [facility] [place] [facility] [address] [id number] [place] [address] Feb, [facility] [place] [facility] [address] [id number] [place] [address] Jan, [facility] [place] [facility] [address] [id number] [place] [address] Jan, [facility] [place] [facility] [address] [id number] [place] [address] Jan, [facility] [place] [facility] [address] [id number] [place] [address] Jan, [facility] [place] [facility] [address] [id number] [place] [address] Jan, [facility] [place] [facility] [address] [id number] [place] [address] Jan, [facility] [place] [facility] [address] [id number] [place] [address] Jan, [facility] [place] [facility] [address] [id number] [place] [address] Jan, [facility] [place] [facility] [address] [id number] [place] [address] Dec, [facility] [place] [facility] [address] [id number] [place] [address] 25 Dec, 2013 [facility] [place] [facility] [address] [id number] [place] [address] 23 Dec, 2013 [facility] [place] [facility] [address] [id number] [place] [address] 23 Dec, 2013 [facility] [place] [facility] [address] [id number], [place] [address] 13 Dec, 2013 [facility] [place] [facility] [address] [id number] [place] [address] 10 Dec, 2013 [facility] [place] [facility] [address] [id number] [place] [address] 10 Dec, 2013 [facility] [place] [facility] [address] [id number] [place] [address] Nov, [facility] [place] [facility] [address] [id number] [place] [address] Nov, [facility] [place] [facility] [address] [id number] [place] [address] Oct, [facility] [place] [facility] [address] [id number] [place] [address] Oct, [facility] [place] [facility] [address] [id number] [place] [address] Oct, [facility] [place] [facility] [address] [id number] [place] [address] Oct, [facility] [place] [facility] [address] [id number] [place] [address] Sep, [facility] [place] [facility] [address] [id number] [place] [address] Sep, [facility] [place] [facility] [address] [id number] [place] [address] Sep, [facility] [place] [facility] [address] [id number] [place] [address] Sep, [facility] [place] [facility] [address] [id number] [place] [address] Sep, [facility] [place] [facility] [address] [id number] [place] [address] Sep, [facility] [place] [facility] [address] [id number] [place] [address] Sep, [facility] [place] [facility] [address] [id number] [place] [address] Sep, [facility] [place] [facility] [address] [id number] [place] [address] August, [facility] [place] [facility] [address] [id number] [place] [address] August, [facility] [place] [facility] [address] [id number] [place] [address] August, [facility] [place] [facility] [address] [id number] [place] [address] August, [facility] [place] [facility] [address] [id number] [place] [address] Jul, [facility] [place] [facility] [address] [id number] [place] [address] Jul, [facility] [place] [facility] [address] [id number] [place] [address] Jul, [facility] [place] [facility] [address] [id number] [place] [address] 24 Jul, 2013 [facility] [place] [facility] [address] [id number] [place] [address] Jul, [facility] [place] [facility] [address] [id number] [place] [address] 16 Jul, 2013 [facility] [place] [facility] [address] [id number] [place] [address] Jul, [facility] [place] [facility] [address] [id number] [place] [address] Jul, [facility] [place] [facility] [address] [id number] [place] [address] Jun, [facility] [place] [facility] [address] [id number] [place] [address] Jun, [facility] [place] [facility] [address] [id number], [place] [address] Jun, [facility] [place] [facility] [address] [id number] [place] [address] Jun, [facility] [place] [facility] [address] [id number] [place] [address] Jun, [facility] [place] [facility] [address] [id number] [place] [address] Jun, [facility] [place] [facility] [address] [id number] [place] [address] Jun, [facility] [address] [id number] [place] [address] Jun, [facility] [address] [id number] [place] [address] May, [facility] [address] [id number] [place] [address] May, [facility] [address] [id number] [place] [address] Apr, [facility] [address] [id number] [place] [address] Apr, [facility] [address] [id number] [place] [address] Mar, [facility] [address] [id number] [place] [address] Mar, [facility] [address] [id number] [place] [address] Mar, [facility] [address] [id number] [place] [address] Mar, [facility] [address] [id number] [place] [address] Mar, [facility] [place] [facility] [address] [id number] [place] [address] Mar, [facility] [address] [id number] [place] [address] Mar, [facility] [place] [facility] [address] [id number] [place] [address] Feb, [facility] [place] [facility] [address] [id number] [place] [address] Feb, [facility] [place] [facility] [address] [id number] [place] [address] Feb, [facility] [address] [id number] [place] [address] Feb, [facility] [place] [facility] [address] [id number] [place] [address] Feb, [facility] [place] [facility] [address] [id number] [place] [address] Feb, [facility] [place] [facility] [address] [id number] [place] [address] 26 Dec, 2012 [facility] [place] [facility] [address] [id number] [place] [address] 18 Dec, 2012 [facility] [place] [facility] [address] [id number] [place] [address] Dec, [facility] [place] [facility] [address] [id number] [place] [address] Dec, [facility] [place] [facility] [address] [id number] [place] [address] Dec, [facility] [place] [facility] [address] [id number] [place] [address] Nov, [facility] [place] [facility] [address] [id number], [place] [address] Nov, [facility] [place] [facility] [address] [id number] [place] [address] Oct, [facility] [place] [facility] [address] [id number], [place] [address] August, [facility] [place] [facility] [address] [id number] [place] [address] August, [facility] [place] [facility] [address] [id number] [place] [address] August, [facility] [place] [facility] [address] [id number], [place] [address] Jul, [facility] [place] [facility] [address] [id number], [place] [address] Jul, [facility] [address] [id number] [place] [address] 04 Jul, 2012 [facility] [address] [id number] [place] [address] 27 Jun, 2012 [facility] [address] [id number] [place] [address] Jun, [facility] [address] [id number] [place] [address] Jun, [facility] [address] [id number] [place] [address] 20 Jun, 2012 [facility] [address] [id number] [place] [address] 18 Jun, 2012 [facility] [address] [id number] [place] [address] 15 Jun, 2012 [facility] [address] [id number] [place] [address] Jun, [facility] [address] [id number] [place] [address] 18 May, 2012 [facility] [address] [id number] [place] [address] May, [facility] [address] [id number] [place] [address] 06 May, 2012 [facility] [place] [facility] [address] [id number] [place] [address] 05 May, 2012 [facility] [place] [facility] [address] [id number] [place] [address] Apr, [facility] [place] [facility] [address] [id number] [place] [address] Apr, [facility] [place] [facility] [address] [id number], [place] [address] Apr, [facility] [place] [facility] [address] [id number] [place] [address] Mar, [facility] [place] [facility] [address] [id number] [place] [address] Mar, [facility] [place] [facility] [address] [id number] [place] [address] Mar, [facility] [place] [facility] [address] [id number] [place] [address] Mar, [facility] [place] [facility] [address] [id number] [place] [address] Mar, [facility] [place] [facility] [address] [id number] [place] [address] Mar, [facility] [place] [facility] [address] [id number] [place] [address] Mar, [facility] [place] [facility] [address] [id number] [place] [address] Mar, [facility] [place] [facility] [address] [id number] [place] [address] Feb, [facility] [place] [facility] [address] [id number] [place] [address] Feb, [facility] [place] [facility] [address] [id number] [place] [address] Feb, [facility] [place] [facility] [address] [id number] [place] [address] Jan, [facility] [place] [facility] [address] [id number] [place] [address] Jan, [facility] [place] [facility] [address] [id number] [place] [address] Jan, [facility] [place] [facility] [address] [id number] [place] [address] Jan, [facility] [place] [facility] [address] [id number] [place] [address] Jan, [facility] [place] [facility] [address] [id number] [place] [address] Jan, [facility] [place] [facility] [address] [id number] [place] [address] Jan, [facility] [place] [facility] [address] [id number] [place] [address] Dec, [facility] [place] [facility] [address] [id number] [place] [address] 24 Dec, 2011 [facility] [place] [facility] [address] [id number] [place] [address] Dec, [facility] [place] [facility] [address] [id number] [place] [address] Nov, [facility] [place] [facility] [address] [id number] [place] [address] Nov, [facility] [place] [facility] [address] [id number] [place] [address] Nov, [facility] [place] [facility] [address] [id number] [place] [address] Nov, [facility] [place] [facility] [address] [id number] [place] [address] Oct, [facility] [place] [facility] [address] [id number] [place] [address] Oct, [facility] [place] [facility] [address] [id number], [place] [address] Oct, [facility] [place] [facility] [address] [id number] [place] [address] Sep, [facility] [place] [facility] [address] [id number] [place] [address] Sep, [facility] [place] [facility] [address] [id number] [place] [address] Sep, [facility] [place] [facility] [address] [id number] [place] [address] Sep, [facility] [address] [id number] [place] [address] Sep, [facility] [address] [id number] [place] [address] Sep, [facility] [address] [id number] [place] [address] August, [facility] [address] [id number] [place] [address] Jul, [facility] [address] [id number] [place] [address] Jul, [facility] [address] [id number] [place] [address] Jul, [facility] [address] [facility] [id number] [place] [address] Jul, [facility] [address] [id number] [place] [address] Jul, [facility] [address] [id number] [place] [address] 29 Jun, 2011 [facility] [address] [facility] [id number] [place] [address] Jun, [facility] [place] [facility] [address] [id number] [place] [address] 15 Jun, 2011 [facility] [address] [id number] [place] [address] 15 Jun, 2011 [facility] [place] [facility] [address] [id number] [place] [address] Jun, [facility] [place] [facility] [address] [facility] [id number] [place] [address] May, [facility] [address] [facility] [id number] [place] [address] May, [facility] [place] [facility] [address] [id number] [place] [address] May, [facility] [place] [facility] [address] [id number] [place] [address] May, [facility] [place] [facility] [address] [id number] [place] [address] May, [facility] [place] [facility] [address] [id number] [place] [address] May, [facility] [place] [facility] [address] [id number] [place] [address] May, [facility] [place] [facility] [address] [id number] [place] [address] Apr, [facility] [place] [facility] [address] [id number] [place] [address] Mar, [facility] [place] [facility] [address] [id number] [place] [address] Mar, [facility] [place] [facility] [address] [id number] [place] [address] Mar, [facility] [place] [facility] [address] [id number] [place] [address] Mar, [facility] [place] [facility] [address] [id number] [place] [address] 08 Mar, 2011 [facility] [place] [facility] [address] [id number] [place] [address] 23 Feb, 2011 [facility] [place] [facility] [address] [id number] [place] [address] 14 Feb, 2011 [facility] [place] [facility] [address] [id number] [place] [address] 14 Feb, 2011 [facility] [place] [facility] [address] [id number] [place] [address] 14 Feb, 2011 [facility] [place] [facility] [address] [id number] [place] [address] 07 Feb, 2011 [facility] [address] [id number] [place] [address] Feb, [facility] [address] [id number] [place] [address] 04 Feb, 2011 [facility] [address] [id number] [place] [address] 10 Jan, 2011 [facility] [address] [id number] [place] [address] 12 Dec, 2010 [facility] [address] [id number] [place] [address] Oct, [facility] [address] [id number] [place] [address] Jun, [facility] [address] [id number] [place] [address] 23 Mar, 2010 [facility] [address] [id number] [place] [address] 23 Mar, 2010 [facility] [address] [id number] [place] [address] 16 Mar, 2010 [facility] [address] [id number] [place] [address] 16 Mar, 2010 [facility] [address] [id number] [place] [address] 15 Mar, 2010 [facility] [address] [id number] [place] [address] 10 Mar, 2010 [facility] [place] [facility] [address] [id number] [place] [address] 10 Mar, 2010 [facility] [place] [facility] [address] [id number] [place] [address] 05 Mar, 2010 [facility] [address] [id number] [place] [address] 03 Mar, 2010 [facility] [place] [facility] [address] [id number] [place] [address] 02 Mar, 2010 [facility] [address] [id number] [place] [address] Jan, [facility] [address] [id number] [place] [address] Jan, [facility] [address] [id number] [place] [address] Jan, [facility] [address] [id number] [place] [address] Nov, [facility] [address] [id number] [place] [address] Oct, [facility] [address] [id number] [place] [address] 31 Mar, 2009 [facility] [address] [id number] [place] [address] Mar, [facility] [address] [id number] [place] [address] Mar, [facility] [address] [id number], [place] [address] Mar, [facility] [address] [id number], [place] [address] 17 Dec, 2008 [facility] [place] [facility] [address] [id number], [place] [address] August, [facility] [place] [facility] [address] [id number], [place] [address] August, [facility] [place] [facility] [address] [id number], [place] [address] 15 Jul, 2008 [facility] [place] [facility] [address] [id number], [place] [address] Jan, [facility] [place] [facility] [address] [id number], [place] [address] Jan, IMMUNIZATIONS No Known Immunizations SOCIAL HISTORY Never Assessed REASON FOR VISIT PA for CT brain PLAN OF CARE VITAL SIGNS MEDICATIONS Unknown [...]
--- OUTSIDE RECORDS SUMMARY | 2018-09-22 03:24 | XMS REPORT ---
Author Author FLORENTINEZEKIEL PUCKETT Organization [facility] Address [address] [place] [address] Care Team Providers Care [employer] Name Role Phone DANICA LERMAY Unavailable PROBLEMS Type Condition ICD9-CM Code JOP39-WE Code Onset Dates Condition Status SNOMED Code Problem Chronic gastritis without bleeding, unspecified gastritis type K29.50 Active 5722432 Problem Vitamin D deficiency E55.9 Active 22223896 Problem Osteoporosis M81.0 Active 40101983 Problem Unspecified abdominal pain R10.9 Active 793067518 Problem Fibromyalgia M79.7 Active 47646154 Problem Chronic pain syndrome G89.4 Active 451512350 Problem Trigger point with back pain M54.9 Active 116774076 Problem Chronic tension-type headache, not intractable G44.229 Active 849124866 Problem RUQ abdominal pain R10.11 Active 517917421 Problem Pancytopenia D61.818 Active 820683355 Problem Right sided sciatica M54.31 Active 36212554 Problem Chronic prescription opiate use Z79.891 Active 944587169 Problem Drug induced constipation K59.03 Active 475704880720686 Problem Leukopenia, unspecified type D72.819 Active 26657141 Problem Atrial fibrillation, unspecified type I48.91 Active 83526799 Problem Allergic rhinitis, unspecified allergic rhinitis type J30.9 Active 52298944 Problem Chronic obstructive pulmonary disease, unspecified COPD type J44.9 Active 97277980 Problem Hypothyroidism, unspecified hypothyroidism type E03.9 Active 63356190 Problem Other constipation K59.09 Active 140667269 Problem Porokeratosis Q82.8 Active 304550560 Problem 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 Active 162657723 Problem Allergy to intravenous contrast Z91.041 Active 937399937 Problem Vaginal atrophy N95.2 Active 670927573 Problem Major depression, recurrent F33.9 Active 27214250 Problem History of hepatitis C Z86.19 Active 46157325257600 Problem Hot flashes N95.1 Active 453426187 Problem Plantar fasciitis M72.2 Active 704748562 Problem Polyneuropathy associated with underlying disease G63 Active 701558067 Problem Primary insomnia F51.01 Active 1604294 Problem Low back pain M54.5 Active 433708439 ALLERGIES No Information ENCOUNTERS Encounter Location Date Diagnosis [facility] [facility] [id number] [place] [address] Oct, [place] [facility] [id number] [place] [address] August, Somatic dysfunction of lumbar region M99.03 and Somatic dysfunction of pelvis region M99.05 [place] [facility] [address] [address] August, Chronic pain syndrome G89.4 [facility] [facility] [address] [address] Jul, Trochanteric bursitis of left hip M70.62 and Trochanteric bursitis, right hip M70.61 [place] [facility] [id number] [place] [address] Jul, [place] [facility] [id number] [place] [address] Jul, Chronic pain syndrome G89.4 [place] [facility] [id number] [place] [address] Jul, Hypothyroidism, unspecified hypothyroidism type E03.9 [place] [id number] [place] [address] Jul, Hypothyroidism, unspecified hypothyroidism type E03.9 [place] [id number] [place] [address] Jul, Chronic tension-type headache, not intractable G44.229 ; Atrial fibrillation, unspecified type I48.91 ; Chronic pain syndrome G89.4 ; Hypothyroidism, unspecified hypothyroidism type E03.9 ; Pancytopenia D61.818 ; History of hepatitis C Z86.19 ; Vaginal atrophy N95.2 ; RUQ abdominal pain R10.11 ; Chronic prescription opiate use Z79.891 ; Osteoporosis M81.0 and Screening for breast cancer Z12.31 [facility] [id number] [place] [address] Jun, [facility] [id number] [place] [address] May, [facility] [id number] [place] [address] May, [facility] [id number] [place] [address] May, [facility] [id number] [place] [address] Apr, [facility] [id number] [place] [address] Apr, Hypothyroidism, unspecified hypothyroidism type E03.9 [facility] [id number] [place] [address] Apr, Hypothyroidism, unspecified hypothyroidism type E03.9 and Leukopenia, unspecified type D72.819 [facility] [address] [place] [address] Mar, [facility] [address] [place] [address] Mar, Leukopenia, unspecified type D72.819 [facility] [address] [place] [address] Mar, Hypothyroidism, unspecified hypothyroidism type E03.9 and Low hemoglobin D64.9 [facility] [id number] [place] [address] Mar, Hypothyroidism, unspecified hypothyroidism type E03.9 [facility] [address] [place] [address] Mar, Osteoporosis M81.0 ; Low hemoglobin D64.9 and Hypothyroidism, unspecified hypothyroidism type E03.[address] [address] Mar, Hypothyroidism, unspecified hypothyroidism type E03.9 ; Bilirubin in urine R82.2 and Pancytopenia D61.[address] [address] Feb, [facility] [address] [address] Feb, Cough R05 and Bronchitis J40 [facility] [address] [address] 14 Feb, 2017 Other viral agents as the cause of diseases classified elsewhere B97.89 and Acute upper respiratory infection, unspecified J06.[address] [address] Feb, Fibromyalgia M79.7 ; Chronic pain syndrome G89.4 ; Hypothyroidism, unspecified hypothyroidism type E03.9 ; Primary insomnia F51.01 ; Osteoporosis M81.0 ; Vision abnormalities H53.9 ; Pancytopenia D61.818 ; BMI 28.0-28.9,adult Z68.28 and Encounter for immunization Z23 [address] [address] Feb, Neuroma D36.10 and Capsulitis of right foot M77.[address] [address] Feb, [address] [address] Feb, Hypothyroidism, unspecified hypothyroidism type E03.9 [facility] [facility] [address] [address] Jan, [address] [address] Jan, Atrial fibrillation, unspecified type I48.91 [facility] [id number] [place] [address] Jan, [facility] [id number] [place] [address] Jan, Fibromyalgia M79.7 ; Atrial fibrillation, unspecified type I48.91 ; Pain of left hand M79.642 ; Pain in right hand M79.641 ; Chronic prescription opiate use Z79.891 ; Chronic pain syndrome G89.4 ; Elevated fasting glucose R73.01 and Hypothyroidism, unspecified hypothyroidism type E03.9 [facility] [id number] [place] [address] Jan, [facility] [id number] [place] [address] Dec, Trochanteric bursitis of both hips M70.61 [facility] [id number] [place] [address] Dec, [facility] [id number] [place] [address] Dec, [facility] [id number] [place] [address] Nov, [facility] [id number] [place] [address] Nov, Unilateral headache R51 [facility] [id number] [place] [address] Nov, [facility] [id number] [place] [address] Oct, Unilateral headache R51 ; 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 and Allergy to intravenous contrast Z91.041 [facility] [id number] [place] [address] Oct, [facility] [address] [address] Oct, [facility] [id number] [place] [address] Sep, Hypothyroidism, unspecified hypothyroidism type E03.9 [facility] [id number] [place] [address] Sep, Hypothyroidism, unspecified hypothyroidism type E03.9 and Bilirubin in urine R82.2 [facility] [address] [address] Sep, Trochanteric bursitis of both hips M70.61 [facility] [address] [address] Sep, Hypothyroidism, unspecified hypothyroidism type E03.9 ; Dysuria R30.0 ; Chronic tension-type headache, not intractable G44.229 and Drug induced constipation K59.03 [facility] [address] [address] Sep, [facility] [id number] [place] [address] Sep, [facility] [address] [address] August, [facility] [id number] [place] [address] Jul, [facility] [address] [address] Jul, Trochanteric bursitis of right hip M70.61 [facility] [address] [address] Jul, Hypothyroidism, unspecified hypothyroidism type E03.9 [facility] [id number] [place] [address] Jul, Fibromyalgia M79.7 ; Chronic pain syndrome G89.4 ; Hypothyroidism, unspecified hypothyroidism type E03.9 and Other constipation K59.09 [facility] [address] [place] [address] Jun, Swollen tonsil J35.1 and Strep throat J02.0 [facility] [id number] [place] [address] Jun, [facility] [id number] [place] [address] Jun, Acute maxillary sinusitis J01.00 [facility] [id number] [place] [address] Jun, Hypothyroidism, unspecified hypothyroidism type E03.9 [facility] [address] [address] Jun, Chronic pain syndrome G89.4 ; Fibromyalgia M79.7 ; Hypothyroidism, unspecified hypothyroidism type E03.9 and Chronic prescription opiate use Z79.891 [facility] [id number] [place] [address] May, [facility] [id number] [place] [address] Apr, Hypothyroidism, unspecified hypothyroidism type E03.9 [facility] [id number] [place] [address] Apr, [facility] [id number] [place] [address] Apr, Lipid screening Z13.220 and Hypothyroidism, unspecified hypothyroidism type E03.9 [facility] [id number] [place] [address] Apr, [facility] [address] [address] Mar, Trochanteric bursitis of both hips M70.61 [facility] [id number] [place] [address] Mar, [facility] [id number] [place] [address] Mar, Plantar fasciitis M72.2 and Porokeratosis Q82.8 [place] [address] [address] Feb, Lipid screening Z13.220 ; Vitamin D deficiency E55.9 and Hypothyroidism, unspecified hypothyroidism type E03.9 [place] [address] [address] Feb, Chronic pain syndrome G89.4 ; Hypothyroidism, unspecified hypothyroidism type E03.9 ; Pancytopenia D61.818 ; Vaginal atrophy N95.2 ; Chronic gastritis without bleeding, unspecified gastritis type K29.50 ; Vitamin D deficiency E55.9 ; Chronic prescription opiate use Z79.891 ; Adverse effect of other opioids, initial encounter T40.2X5A ; Drug induced constipation K59.03 ; Lipid screening Z13.220 and Encounter for immunization Z23 [place] [address] [address] Feb, [place] [address] [address] Feb, Ingrown toenail L60.0 [place] [address] [address] Jan, [place] [address] [address] Jan, Trochanteric bursitis of both hips M70.61 [place] [address] [address] Jan, [place] [address] [address] Jan, [place] [address] [address] Jan, [place] [address] [address] Jan, Right sided sciatica M54.31 [facility] [address] [address] 23 Dec, 2015 Onychomycosis B35.1 [facility] [id number] [place] [address] 22 Dec, 2015 [facility] [id number] [place] [address] Dec, [facility] [id number] [place] [address] Dec, [facility] [id number] [place] [address] Dec, Osteoarthritis of right hip, unspecified osteoarthritis type M16.11 and Bursitis of right hip M70.71 [place] [id number] [place] [address] Nov, [place] [id number] [place] [address] Nov, [facility] [id number] [place] [address] Nov, [facility] [id number] [place] [address] Nov, Hypothyroidism, unspecified hypothyroidism type E03.9 ; Vitamin D deficiency E55.9 and History of hepatitis C Z86.19 [place] [id number] [place] [address] Nov, Right upper quadrant pain R10.11 ; History of hepatitis C Z86.19 and Low back pain M54.5 [facility] [id number] [place] [address] Oct, Trochanteric bursitis, right hip M70.61 [facility] [id number] [place] [address] Oct, [facility] [id number] [place] [address] Oct, [place] [address] [address] Oct, Trochanteric bursitis of both hips M70.61 and Right sided sciatica M54.31 [place] [address] [address] Oct, Trochanteric bursitis of both hips M70.61 [place] [address] [address] 14 Oct, 2015 RUQ abdominal pain R10.11 [place] [address] [address] Oct, Sciatic leg pain M54.30 [place] [address] [address] Oct, RUQ abdominal pain R10.11 [place] [address] [address] Oct, RUQ abdominal pain R10.11 ; History of hepatitis C Z86.19 and Trigger point with back pain M54.9 [place] [address] [address] Sep, [place] [id number] [place] [address] Sep, Right sided sciatica M54.31 [place] [address] [address] Sep, Hypothyroidism, unspecified hypothyroidism type E03.9 and Vitamin D deficiency E55.9 [place] [address] [address] Sep, Plantar fasciitis M72.2 and Porokeratosis Q82.8 [place] [address] [address] Sep, Hypothyroidism, unspecified hypothyroidism type E03.9 ; Chronic pain syndrome G89.4 ; Polyneuropathy associated with underlying disease G63 and Vitamin D deficiency E55.9 [place] [address] [address] August, [place] [address] [address] Jul, Plantar fasciitis M72.2 [place] [address] [address] Jul, Trochanteric bursitis, right hip M70.61 [place] [address] [address] Jul, Hypothyroidism, unspecified hypothyroidism type E03.9 [place] [address] [address] Jul, Hypothyroidism, unspecified hypothyroidism type E03.9 ; Chronic pain syndrome G89.4 and Polyneuropathy associated with underlying disease G63 [place] [address] [address] Jun, Trochanteric bursitis of both hips M70.61 [place] [address] [address] Jun, Vitamin D deficiency E55.9 ; Osteoporosis M81.0 ; Low back pain M54.5 and Plantar fasciitis M72.2 [place] [address] [address] May, Vitamin D deficiency E55.9 and Hypothyroidism, unspecified hypothyroidism type E03.9 [place] [address] [address] May, Acute maxillary sinusitis J01.00 [place] [address] [address] May, Osteoporosis M81.0 and Hypothyroidism, unspecified hypothyroidism type E03.9 [place] [id number] [place] [address] 16 May, 2015 Osteoporosis M81.0 [place] [address] [address] 15 May, 2015 [facility] [id number] [place] [address] 14 Apr, 2015 [place] [address] [address] Apr, Trochanteric bursitis of both hips M70.61 [place] [address] [address] Apr, Hypothyroidism, unspecified hypothyroidism type E03.9 [place] [id number] [place] [address] Apr, Chronic pain syndrome G89.4 ; Bilateral low back pain with sciatica, sciatica laterality unspecified M54.40 ; Pain in right hip M25.551 ; Pain in left hip M25.552 ; Chronic prescription opiate use Z79.899 ; Primary insomnia F51.01 and Hypothyroidism, unspecified hypothyroidism type E03.9 [place] [id number] [place] [address] 18 Mar, 2015 [place] [id number] [place] [address] Feb, [place] [id number] [place] [address] 16 Feb, 2015 Chronic pain syndrome G89.4 and Major depression F32.9 [place] [id number] [place] [address] 16 Feb, 2015 Fatigue R53.83 [place] [id number] [place] [address] 13 Feb, 2015 History of fracture Z87.81 [place] [address] [address] Feb, Major depression, recurrent F33.9 and Generalized anxiety disorder F41.1 [facility] [address] [place] [address] Feb, [facility] [id number] [place] [address] Jan, Hypothyroidism, unspecified hypothyroidism type E03.9 [facility] [id number] [place] [address] Jan, Abdominal pain R10.9 and Hypothyroidism, unspecified hypothyroidism type E03.9 [place] [id number] [place] [address] Jan, Abdominal pain R10.9 [place] [id number] [place] [address] Jan, Hypothyroidism, unspecified hypothyroidism type E03.9 [place] [id number] [place] [address] Jan, [facility] [id number] [place] [address] Jan, 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.419 and Hypothyroidism, unspecified hypothyroidism type E03.9 [place] [address] [place] [address] Jan, 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.419 ; Abdominal pain R10.9 ; Dyspareunia N94.1 ; Encounter for immunization Z23 ; History of fracture Z87.81 ; Fatigue R53.83 ; Throat fullness R68.89 ; Bruises easily R23.8 ; Hot flashes N95.1 ; Depression F32.9 and Vaginal atrophy N95.2 [place] [address] [place] [address] Jan, Hypothyroidism, unspecified hypothyroidism type E03.9 [facility] [id number] [place] [address] Jan, Unspecified abdominal pain R10.9 ; Chronic obstructive pulmonary disease, unspecified COPD type J44.9 ; Allergic rhinitis, unspecified allergic rhinitis type J30.9 ; Chronic pain syndrome G89.4 ; Hypothyroidism, unspecified hypothyroidism type E03.9 ; Chest pain, unspecified chest pain type R07.9 and Plantar fasciitis M72.2 [facility] [id number] [place] [address] Jan, Trochanteric bursitis of both hips M70.61 [facility] [id number] [place] [address] Dec, [facility] [id number] [place] [address] Nov, [facility] [id number] [place] [address] Nov, [facility] [id number] [place] [address] Nov, Constipation 564.00 [facility] [id number] [place] [address] Oct, Chronic pain 338.29 and Hypothyroidism 244.9 [facility] [id number] [place] [address] Oct, [facility] [id number] [place] [address] Sep, [facility] [id number] [place] [address] Sep, [facility] [id number] [place] [address] Sep, [facility] [id number] [place] [address] Sep, [facility] [id number] [place] [address] Sep, [facility] [address] [address] Sep, [facility] [id number] [place] [address] Sep, COPD exacerbation 491.21 ; Chronic pain 338.29 ; Hypothyroidism 244.9 and Pancytopenia 284.19 [facility] [id number] [place] [id number] August, [facility] [id number] [place] [phone] Jul, [facility] [id number] [place] [address] Jul, [facility] [id number] [place] [phone] Jun, [facility] [id number] [place] [phone] Jun, [facility] [id number] [address] Jun, [facility] [id number] [address] Jun, [facility] [id number] [address] Jun, [facility] [id number] [address] May, [facility] [id number] [address] May, [facility] [id number] [address] May, [facility] [id number] [address] May, [facility] [id number] [place] [address] [place] [address] May, 2014 [facility] [place] [facility] [address] [id number] [place] [address] May, 2014 [facility] [place] [facility] [address] [id number] [place] [address] May, 2014 [facility] [place] [facility] [address] [id number] [place] [address] May, 2014 [facility] [place] [facility] [address] [id number] [place] [address] May, 2014 [facility] [place] [facility] [address] [id number] [place] [address] May, 2014 [facility] [place] [facility] [address] [facility] [id number] [place] [address] May, 2014 [facility] [place] [facility] [address] [id number] [place] [address] May, 2014 [facility] [place] [facility] [address] [id number] [place] [address] May, [facility] [place] [facility] [address] [id number] [place] [address] Apr, [facility] [place] [facility] [address] [facility] [id number] [place] [address] Apr, [facility] [place] [facility] [address] [facility] [id number] [place] [address] Apr, [facility] [place] [facility] [address] [id number] [place] [address] Apr, [facility] [place] [facility] [address] [id number] [place] [address] Apr, [facility] [place] [facility] [address] [facility] [id number] [place] [address] Apr, [facility] [place] [facility] [address] [facility] [id number] [place] [address] Apr, [facility] [place] [facility] [address] [id number] [place] [address] Mar, [facility] [place] [facility] [address] [id number] [place] [address] Mar, [facility] [place] [facility] [address] [id number] [place] [address] Mar, [facility] [place] [facility] [address] [id number] [place] [address] Mar, [facility] [place] [facility] [address] [id number] [place] [address] Mar, [facility] [place] [facility] [address] [id number] [place] [address] Mar, [facility] [place] [facility] [address] [id number] [place] [address] Feb, [facility] [place] [facility] [address] [id number] [place] [address] Feb, [facility] [place] [facility] [address] [id number] [place] [address] Feb, [facility] [place] [facility] [address] [id number] [place] [address] Feb, [facility] [place] [facility] [address] [id number] [place] [address] Feb, [facility] [place] [facility] [address] [id number] [address] Feb, [facility] [place] [facility] [address] [id number] [place] [address] Jan, [facility] [place] [facility] [address] [id number] [place] [address] Jan, [facility] [place] [facility] [address] [id number] [place] [address] Jan, [facility] [place] [facility] [address] [id number] [place] [address] Jan, [facility] [place] [facility] [address] [id number] [place] [address] Jan, [facility] [place] [facility] [address] [id number] [place] [address] Jan, [facility] [place] [facility] [address] [id number] [place] [address] Jan, [facility] [place] [facility] [address] [id number] [place] [address] Jan, [facility] [place] [facility] [address] [id number] [place] [address] Dec, [facility] [place] [facility] [address] [id number] [place] [address] Dec, [facility] [place] [facility] [address] [id number] [place] [address] Dec, [facility] [place] [facility] [address] [id number] [place] [address] Dec, [facility] [place] [facility] [address] [id number] [place] [address] Dec, [facility] [place] [facility] [address] [id number] [place] [address] Dec, [facility] [place] [facility] [address] [id number] [place] [address] Dec, [facility] [place] [facility] [address] [id number] [place] [address] Nov, [facility] [place] [facility] [address] [id number] [place] [address] Nov, [facility] [place] [facility] [address] [id number] [place] [address] Oct, [facility] [place] [facility] [address] [id number] [place] [address] Oct, [facility] [place] [facility] [address] [id number] [place] [address] Oct, [facility] [place] [facility] [address] [id number] [place] [address] Oct, [facility] [place] [facility] [address] [id number] [place] [address] Sep, [facility] [place] [facility] [address] [id number] [place] [address] Sep, [facility] [place] [facility] [address] [id number] [place] [address] Sep, [facility] [place] [facility] [address] [id number] [place] [address] Sep, [facility] [place] [facility] [address] [id number] [place] [address] Sep, [facility] [place] [facility] [address] [id number] [place] [address] Sep, [facility] [place] [facility] [address] [id number] [place] [address] Sep, [facility] [place] [facility] [address] [id number] [place] [address] Sep, [facility] [place] [facility] [address] [id number] [place] [address] August, [facility] [place] [facility] [address] [id number] [place] [address] August, [facility] [place] [facility] [address] [id number] [place] [address] August, [facility] [place] [facility] [address] [id number] [place] [address] August, [facility] [place] [facility] [address] [id number] [place] [address] Jul, [facility] [place] [facility] [address] [id number] [place] [address] 30 Jul, 2013 [facility] [place] [facility] [address] [id number] [place] [address] 24 Jul, 2013 [facility] [place] [facility] [address] [id number] [place] [address] 24 Jul, 2013 [facility] [place] [facility] [address] [id number] [place] [address] 17 Jul, 2013 [facility] [place] [facility] [address] [id number] [place] [address] 16 Jul, 2013 [facility] [place] [facility] [address] [id number] [place] [address] 15 Jul, 2013 [facility] [place] [facility] [address] [id number] [place] [address] Jul, [facility] [place] [facility] [address] [id number] [place] [address] Jun, [facility] [place] [facility] [address] [id number] [place] [address] Jun, [facility] [place] [facility] [address] [id number] [place] [address] Jun, [facility] [place] [facility] [address] [id number] [place] [address] Jun, [facility] [place] [facility] [address] [id number] [place] [address] Jun, [facility] [place] [facility] [address] [id number] [place] [address] Jun, [facility] [place] [facility] [address] [id number] [place] [address] Jun, [facility] [place] [facility] [address] [id number] [place] [address] Jun, [facility] [place] [facility] [address] [id number] [place] [address] May, [facility] [place] [facility] [address] [id number] [place] [address] 13 May, 2013 [facility] [address] [id number] [place] [address] Apr, [facility] [address] [id number] [place] [address] Apr, [facility] [address] [id number] [place] [address] Mar, [facility] [address] [id number] [place] [address] Mar, [facility] [address] [id number] [place] [address] Mar, [facility] [address] [id number] [place] [address] Mar, [facility] [address] [id number] [place] [address] Mar, [facility] [address] [id number] [place] [address] Mar, [facility] [address] [id number] [place] [address] Mar, [facility] [address] [facility] [id number] [place] [address] Feb, [facility] [address] [id number] [place] [address] Feb, [facility] [address] [id number] [place] [address] Feb, [facility] [address] [id number] [place] [address] Feb, [facility] [address] [id number] [place] [address] Feb, [facility] [address] [id number] [place] [address] Feb, [facility] [address] [id number] [place] [address] 26 Dec, 2012 [facility] [place] [facility] [address] [id number] [place] [address] 18 Dec, 2012 [facility] [place] [facility] [address] [id number] [place] [address] Dec, [facility] [place] [facility] [address] [id number] [place] [address] Dec, [facility] [address] [id number] [place] [address] Dec, [facility] [place] [facility] [address] [id number] [place] [address] Nov, [facility] [place] [facility] [address] [id number] [place] [address] Nov, [facility] [place] [facility] [address] [id number] [place] [address] Oct, [facility] [place] [facility] [address] [id number] [place] [address] August, [facility] [place] [facility] [address] [id number] [place] [address] August, [facility] [place] [facility] [address] [id number] [place] [address] August, [facility] [place] [facility] [address] [id number][place] [address] Jul, [facility] [place] [facility] [address] [id number] [place] [address] Jul, [facility] [place] [facility] [address] [id number] [place] [address] Jul, [facility] [place] [facility] [address] [id number] [place] [address] Jun, [facility] [place] [facility] [address] [id number][place] [address] 26 Jun, 2012 [facility] [address] [id number] [place] [address] 21 Jun, 2012 [facility] [place] [facility] [address] [id number] [place] [address] 20 Jun, 2012 [facility] [place] [facility] [address] [id number] [place] [address] 18 Jun, 2012 [facility] [place] [facility] [address] [id number] [place] [address] 15 Jun, 2012 [facility] [place] [facility] [address] [id number] [place] [address] 12 Jun, 2012 [facility] [place] [facility] [address] [id number] [place] [address] 18 May, 2012 [facility] [address] [id number] [place] [address] 11 May, 2012 [facility] [place] [facility] [address] [id number] [place] [address] 06 May, 2012 [facility] [place] [facility] [address] [id number] [place] [address] 05 May, 2012 [facility] [address] [facility] [id number] [place] [address] 10 Apr, 2012 [facility] [place] [facility] [address] [id number] [place] [address] Apr, [facility] [place] [facility] [address] [id number] [place] [address] Apr, [facility] [place] [facility] [address] [id number] [place] [address] Mar, [facility] [place] [facility] [address] [id number] [place] [address] Mar, [facility] [place] [facility] [address] [id number] [place] [address] Mar, [facility] [place] [facility] [address] [id number] [place] [address] Mar, [facility] [place] [facility] [address] [id number] [place] [address] Mar, [facility] [place] [facility] [address] [id number] [place] [address] Mar, [facility] [place] [facility] [address] [id number] [place] [address], [place] [address] Mar, [facility] [place] [facility] [address] [id number] [place] [address] Mar, [facility] [place] [facility] [address] [id number] [place] [address] Feb, [facility] [place] [facility] [address] [id number] [place] [address] Feb, [facility] [place] [facility] [address] [id number] [place] [address] Feb, [facility] [place] [facility] [address] [id number] [place] [address] Jan, [facility] [place] [facility] [address] [id number] [place] [address] Jan, [facility] [place] [facility] [address] [id number] [place] [address] Jan, [facility] [place] [facility] [address] [id number], [place] [address] Jan, [facility] [place] [facility] [address] [id number] [place] [address] Jan, [facility] [place] [facility] [address] [id number] [place] [address] Jan, [facility] [place] [facility] [address] [id number] [place] [address] Jan, [facility] [place] [facility] [address] [id number] [place] [address] 27 Dec, 2011 [facility] [place] [facility] [address] [id number] [place] [address] 24 Dec, 2011 [facility] [place] [facility] [address] [id number] [place] [address] 10 Dec, 2011 [facility] [place] [facility] [address] [id number] [place] [address] 30 Nov, 2011 [facility] [place] [facility] [address] [id number] [place] [address] Nov, [facility] [place] [facility] [address] [id number] [place] [address] Nov, [facility] [place] [facility] [address] [id number] [place] [address] Nov, [facility] [place] [facility] [address] [id number] [place] [address] Oct, [facility] [place] [facility] [address] [id number] [place] [address] Oct, [facility] [place] [facility] [address] [id number] [place] [address] Oct, [facility] [place] [facility] [address] [id number] [place] [address] Sep, [facility] [place] [facility] [address] [id number] [place] [address] 16 Sep, 2011 [facility] [place] [facility] [address] [id number] [place] [address] Sep, [facility] [place] [facility] [address] [id number] [place] [address] Sep, [facility] [place] [facility] [address] [id number] [place] [address] Sep, [facility] [place] [facility] [address] [id number] [place] [address] Sep, [facility] [place] [facility] [address] [id number] [place] [address] August, [facility] [address] [id number] [place] [address] Jul, [facility] [place] [facility] [address] [id number] [place] [address] Jul, [facility] [address] [id number] [place] [address] Jul, [facility] [address] [id number] [place] [address] Jul, [facility] [address] [id number] [place] [address] Jul, [facility] [address] [id number] [place] [address] Jun, [facility] [address] [id number] [place] [address] Jun, [facility] [address] [id number] [place] [address] Jun, [facility] [address] [id number] [place] [address] Jun, [facility] [address] [id number] [place] [address] Jun, [facility] [place] [facility] [address] [id number] [place] [address] May, [facility] [address] [id number] [place] [address] May, [facility] [place] [facility] [address] [id number] [place] [address] May, [facility] [place] [facility] [address] [id number] [place] [address] 06 May, 2011 [facility] [place] [facility] [address] [id number] [place] [address] May, [facility] [place] [facility] [address] [id number] [place] [address] May, [facility] [place] [facility] [address] [id number] [place] [address] May, [facility] [place] [facility] [address] [facility] [id number] [place] [address] Apr, [facility] [place] [facility] [address] [id number] [place] [address] Mar, [facility] [place] [facility] [address] [id number] [place] [address] Mar, [facility] [place] [facility] [address] [id number] [place] [address] Mar, [facility] [place] [facility] [address] [facility] [id number] [place] [address] Mar, [facility] [place] [facility] [address] [id number] [place] [address] Mar, [facility] [place] [facility] [address] [id number] [place] [address] Feb, [facility] [place] [facility] [address] [id number] [place] [address] Feb, [facility] [place] [facility] [address] [id number], [place] [address] 14 Feb, 2011 [facility] [place] [facility] [address] [id number], [place] [address] 14 Feb, 2011 [facility] [place] [facility] [address] [id number] [place] [address] Feb, [facility] [place] [facility] [address] [facility] [id number] [place] [address] 04 Feb, 2011 [facility] [place] [facility] [address] [facility] [id number] [place] [address] Feb, [facility] [place] [facility] [address] [id number] [place] [address] 10 Jan, 2011 [facility] [address] [id number] [place] [address] 12 Dec, 2010 [facility] [address] [id number] [place] [address] 11 Oct, 2010 [facility] [address] [id number] [place] [address] 10 Jun, 2010 [facility] [address] [id number] [place] [address] 23 Mar, 2010 [facility] [address] [id number] [place] [address] 23 Mar, 2010 [facility] [address] [id number] [place] [address] 16 Mar, 2010 [facility] [address] [id number] [place] [address] 16 Mar, 2010 [facility] [address] [id number] [place] [address] 15 Mar, 2010 [facility] [address] [id number] [place] [address] 10 Mar, 2010 [facility] [address] [facility] [id number] [place] [address] 10 Mar, 2010 [facility] [address] [id number] [place] [address] 05 Mar, 2010 [facility] [address] [id number] [place] [address] 03 Mar, 2010 [facility] [address] [id number] [place] [address] 02 Mar, 2010 [facility] [address] [id number] [place] [address] 22 Jan, 2010 [facility] [address] [id number] [place] [address] Jan, [facility] [address] [id number] [address] Jan, [facility] [address] [facility] [id number][place] [address] Nov, [facility] [address] [facility] [id number][place] [address] Oct, [facility] [address] [facility] [id number][place] [address] Mar, [facility] [address] [facility] [id number][place] [address] Mar, [facility] [address] [facility] [id number][place] [address] Mar, [facility] [id number] [address] Mar, [facility] [id number] [address] Dec, [facility] [id number] [address] August, [facility] [id number] [address] August, [facility] [address] [id number] [address] Jul, [facility] [address] [id number] [address] Jan, [facility] [address] [id number] [address] Jan, IMMUNIZATIONS No Known Immunizations SOCIAL HISTORY Never Assessed REASON FOR VISIT Future lab order PLAN OF CARE VITAL SIGNS MEDICATIONS [...]
--- OUTSIDE RECORDS SUMMARY | 2018-09-22 03:25 | XMS REPORT ---
Author Author FLORENTINEZEKIEL PUCKETT Organization [facility] Address [address] [place] [address] Care Team Providers Care Roll Bucker Name Role Phone DANICA LERMAY Unavailable PROBLEMS Type Condition ICD9-CM Code ZPM39-YE Code Onset Dates Condition Status SNOMED Code Problem Chronic gastritis without bleeding, unspecified gastritis type K29.50 Active 8550515 Problem Vitamin D deficiency E55.9 Active 22976003 Problem Osteoporosis M81.0 Active 45625210 Problem Unspecified abdominal pain R10.9 Active 580620159 Problem Fibromyalgia M79.7 Active 79121560 Problem Chronic pain syndrome G89.4 Active 524274671 Problem Trigger point with back pain M54.9 Active 480764963 Problem Chronic tension-type headache, not intractable G44.229 Active 435095825 Problem RUQ abdominal pain R10.11 Active 796771691 Problem Pancytopenia D61.818 Active 142637631 Problem Right sided sciatica M54.31 Active 27841888 Problem Chronic prescription opiate use Z79.891 Active 271880673 Problem Drug induced constipation K59.03 Active 968645319735047 Problem Leukopenia, unspecified type D72.819 Active 78609369 Problem Atrial fibrillation, unspecified type I48.91 Active 75687525 Problem Allergic rhinitis, unspecified allergic rhinitis type J30.9 Active 71267310 Problem Chronic obstructive pulmonary disease, unspecified COPD type J44.9 Active 74508104 Problem Hypothyroidism, unspecified hypothyroidism type E03.9 Active 62965467 Problem Other constipation K59.09 Active 414807985 Problem Porokeratosis Q82.8 Active 590371185 Problem 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 Active 527704335 Problem Allergy to intravenous contrast Z91.041 Active 630913997 Problem Vaginal atrophy N95.2 Active 204699783 Problem Major depression, recurrent F33.9 Active 75110805 Problem History of hepatitis C Z86.19 Active 17267358934425 Problem Hot flashes N95.1 Active 073735013 Problem Plantar fasciitis M72.2 Active 384032804 Problem Polyneuropathy associated with underlying disease G63 Active 856369622 Problem Primary insomnia F51.01 Active 1674896 Problem Low back pain M54.5 Active 059576613 ALLERGIES No Information ENCOUNTERS Encounter Location Date Diagnosis [place] [id number] [place] [address] August, [place] [id number] [place] [address] August, Chronic pain syndrome G89.4 [place] [id number] [place] [address] Jul, Trochanteric bursitis of left hip M70.62 and Trochanteric bursitis, right hip M70.61 [place] [id number] [place] [address] Jul, [place] [id number] [place] [address] Jul, Chronic pain syndrome G89.4 [place] [id number] [place] [address] Jul, Hypothyroidism, unspecified hypothyroidism type E03.9 [place] [id number] [place] [address] Jul, Hypothyroidism, unspecified hypothyroidism type E03.9 [place] [id number] [place] [address] Jul, Chronic tension-type headache, not intractable G44.229 ; Atrial fibrillation, unspecified type I48.91 ; Chronic pain syndrome G89.4 ; Hypothyroidism, unspecified hypothyroidism type E03.9 ; Pancytopenia D61.818 ; History of hepatitis C Z86.19 ; Vaginal atrophy N95.2 ; RUQ abdominal pain R10.11 ; Chronic prescription opiate use Z79.891 ; Osteoporosis M81.0 and Screening for breast cancer Z12.31 [place] [address] [address] Jun, [facility] [address] [address] May, [facility] [address], [place] [address] May, [facility] [address] [place] [address] May, [facility] [address] [place] [address] Apr, [facility] [id number] [place] [address] Apr, Hypothyroidism, unspecified hypothyroidism type E03.9 [facility] [address] [place] [address] Apr, Hypothyroidism, unspecified hypothyroidism type E03.9 and Leukopenia, unspecified type D72.819 [facility] [address] [address] Mar, [facility] [address] [place] [address] Mar, Leukopenia, unspecified type D72.819 [facility] [address] [place] [address] Mar, Hypothyroidism, unspecified hypothyroidism type E03.9 and Low hemoglobin D64.9 [facility] [address] [address] Mar, Hypothyroidism, unspecified hypothyroidism type E03.9 [facility] [address], [place] [address] Mar, Osteoporosis M81.0 ; Low hemoglobin D64.9 and Hypothyroidism, unspecified hypothyroidism type E03.9 [facility] [address], [place] [address] Mar, Hypothyroidism, unspecified hypothyroidism type E03.9 ; Bilirubin in urine R82.2 and Pancytopenia D61.818 [place] [address] [address] Feb, [facility] [place] [address] [address] 18 Feb, 2017 Cough R05 and Bronchitis J[address] [facility] [address] [address] 14 Feb, 2017 Other viral agents as the cause of diseases classified elsewhere B97.89 and Acute upper respiratory infection, unspecified J06.[address] [address] Feb, Fibromyalgia M79.7 ; Chronic pain syndrome G89.4 ; Hypothyroidism, unspecified hypothyroidism type E03.9 ; Primary insomnia F51.01 ; Osteoporosis M81.0 ; Vision abnormalities H53.9 ; Pancytopenia D61.818 ; BMI 28.0-28.9,adult Z68.28 and Encounter for immunization Z23 [address] [address] Feb, Neuroma D36.10 and Capsulitis of right foot M77.[address] [address] Feb, [address] [address] Feb, Hypothyroidism, unspecified hypothyroidism type E03.9 [place] [address] [address] Jan, [address] [address] Jan, Atrial fibrillation, unspecified type I48.[address] [address] Jan, [id number] [place] [address] Jan, Fibromyalgia M79.7 ; Atrial fibrillation, unspecified type I48.91 ; Pain of left hand M79.642 ; Pain in right hand M79.641 ; Chronic prescription opiate use Z79.891 ; Chronic pain syndrome G89.4 ; Elevated fasting glucose R73.01 and Hypothyroidism, unspecified hypothyroidism type E03.9 [place] [address] [address] Jan, [place] [id number] [place] [address] Dec, Trochanteric bursitis of both hips M70.61 [place] [address] [address] Dec, [place] [address] [address] Dec, [place] [id number] [place] [address] Nov, [place] [id number] [place] [address] Nov, Unilateral headache R51 [place] [id number] [place] [address] Nov, [place] [id number] [place] [address] Oct, Unilateral headache R51 ; 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 and Allergy to intravenous contrast Z91.041 [facility] [address] [id number] [place] [address] Oct, [facility] [id number] [place] [address] Oct, [facility] [id number] [place] [address] Sep, Hypothyroidism, unspecified hypothyroidism type E03.9 [facility] [id number] [place] [address] Sep, Hypothyroidism, unspecified hypothyroidism type E03.9 and Bilirubin in urine R82.2 [facility] [address] [address] Sep, Trochanteric bursitis of both hips M70.61 [facility] [address] [address] Sep, Hypothyroidism, unspecified hypothyroidism type E03.9 ; Dysuria R30.0 ; Chronic tension-type headache, not intractable G44.229 and Drug induced constipation K59.03 [place] [address] [address] Sep, [place] [address] [address] Sep, [facility] [address] [address] August, [facility] [address] [address] Jul, [place] [address] [address] Jul, Trochanteric bursitis of right hip M70.61 [place] [address] [address] Jul, Hypothyroidism, unspecified hypothyroidism type E03.9 [facility] [address] [address] Jul, Fibromyalgia M79.7 ; Chronic pain syndrome G89.4 ; Hypothyroidism, unspecified hypothyroidism type E03.9 and Other constipation K59.09 [facility] [id number] [place] [address] Jun, Swollen tonsil J35.1 and Strep throat J02.0 [facility] [address] [place] [address] [place] [address] Jun, [facility] [id number] [place] [address] Jun, Acute maxillary sinusitis J01.00 [facility] [id number] [place] [address] Jun, Hypothyroidism, unspecified hypothyroidism type E03.9 [facility] [id number] [place] [address] Jun, Chronic pain syndrome G89.4 ; Fibromyalgia M79.7 ; Hypothyroidism, unspecified hypothyroidism type E03.9 and Chronic prescription opiate use Z79.891 [facility] [id number] [place] [address] May, [facility] [id number] [place] [address] Apr, Hypothyroidism, unspecified hypothyroidism type E03.9 [facility] [id number] [place] [address] Apr, [facility] [id number] [place] [address] Apr, Lipid screening Z13.220 and Hypothyroidism, unspecified hypothyroidism type E03.9 [facility] [id number] [place] [address] Apr, [facility] [id number] [place] [address] Mar, Trochanteric bursitis of both hips M70.61 [facility] [id number] [place] [address] Mar, [facility] [address] [address] Mar, Plantar fasciitis M72.2 and Porokeratosis Q82.8 [facility] [address] [address] Feb, Lipid screening Z13.220 ; Vitamin D deficiency E55.9 and Hypothyroidism, unspecified hypothyroidism type E03.9 [place] [id number] [place] [address] Feb, Chronic pain syndrome G89.4 ; Hypothyroidism, unspecified hypothyroidism type E03.9 ; Pancytopenia D61.818 ; Vaginal atrophy N95.2 ; Chronic gastritis without bleeding, unspecified gastritis type K29.50 ; Vitamin D deficiency E55.9 ; Chronic prescription opiate use Z79.891 ; Adverse effect of other opioids, initial encounter T40.2X5A ; Drug induced constipation K59.03 ; Lipid screening Z13.220 and Encounter for immunization Z23 [place] [address] [address] Feb, [place] [address] [address] Feb, Ingrown toenail L60.0 [place] [address] [address] Jan, [place] [address] [address] Jan, Trochanteric bursitis of both hips M70.61 [place] [address] [address] Jan, [place] [address] [address] Jan, [place] [id number] [place] [address] Jan, [place] [address] [address] Jan, Right sided sciatica M54.31 [place] [id number] [place] [address] Dec, Onychomycosis B35.1 [place] [address], [place] [address] Dec, [facility] [address], [place] [address] Dec, [facility] [id number] [place] [address] Dec, [facility] [id number] [place] [address] Dec, Osteoarthritis of right hip, unspecified osteoarthritis type M16.11 and Bursitis of right hip M70.71 [facility] [address] [id number] [place] [address] Nov, [facility] [address] [id number] [place] [address] Nov, [facility] [address] [id number] [place] [address] Nov, [facility] [id number] [place] [address] Nov, Hypothyroidism, unspecified hypothyroidism type E03.9 ; Vitamin D deficiency E55.9 and History of hepatitis C Z86.19 [facility] [address], [place] [address] Nov, Right upper quadrant pain R10.11 ; History of hepatitis C Z86.19 and Low back pain M54.5 [facility] [address], [place] [address] Oct, Trochanteric bursitis, right hip M70.61 [facility] [address] [place] [address] Oct, [facility] [address], [place] [address] Oct, [facility] [address] [place] [address] Oct, Trochanteric bursitis of both hips M70.61 and Right sided sciatica M54.31 [place] [id number] [place] [address] Oct, Trochanteric bursitis of both hips M70.61 [place] [id number] [place] [address] 14 Oct, 2015 RUQ abdominal pain R10.11 [place] [address] [address] 13 Oct, 2015 Sciatic leg pain M54.30 [place] [id number] [place] [address] Oct, RUQ abdominal pain R10.11 [place] [id number] [place] [address] 07 Oct, 2015 RUQ abdominal pain R10.11 ; History of hepatitis C Z86.19 and Trigger point with back pain M54.9 [place] [id number] [place] [address] Sep, [place] [id number] [place] [address] Sep, Right sided sciatica M54.31 [place] [id number] [place] [address] 06 Sep, 2015 Hypothyroidism, unspecified hypothyroidism type E03.9 and Vitamin D deficiency E55.9 [place] [id number] [place] [address] Sep, Plantar fasciitis M72.2 and Porokeratosis Q82.8 [place] [address] [address] Sep, Hypothyroidism, unspecified hypothyroidism type E03.9 ; Chronic pain syndrome G89.4 ; Polyneuropathy associated with underlying disease G63 and Vitamin D deficiency E55.9 [place] [id number] [place] [address] August, [facility] [address] [place] [address] Jul, Plantar fasciitis M72.2 [facility] [address] [id number] [place] [address] 28 Jul, 2015 Trochanteric bursitis, right hip M70.61 [place] [address] [place] [address] 07 Jul, 2015 Hypothyroidism, unspecified hypothyroidism type E03.9 [place] [id number] [place] [address] Jul, Hypothyroidism, unspecified hypothyroidism type E03.9 ; Chronic pain syndrome G89.4 and Polyneuropathy associated with underlying disease G63 [place] [id number] [place] [address] Jun, Trochanteric bursitis of both hips M70.61 [place] [id number] [place] [address] 08 Jun, 2015 Vitamin D deficiency E55.9 ; Osteoporosis M81.0 ; Low back pain M54.5 and Plantar fasciitis M72.2 [place] [id number] [place] [address] May, Vitamin D deficiency E55.9 and Hypothyroidism, unspecified hypothyroidism type E03.9 [place] [id number] [place] [address] May, Acute maxillary sinusitis J01.00 [place] [address] [id number] [place] [address] May, Osteoporosis M81.0 and Hypothyroidism, unspecified hypothyroidism type E03.9 [place] [address] [place] [address] 16 May, 2015 Osteoporosis M81.0 [place] [address] [id number] [place] [address] 15 May, 2015 [place] [address] [id number] [place] [address] Apr, [place] [address] [address] [place] [address] Apr, Trochanteric bursitis of both hips M70.61 [place] [address] [address] [place] [address] Apr, Hypothyroidism, unspecified hypothyroidism type E03.9 [place] [address] [id number] [place] [address] Apr, Chronic pain syndrome G89.4 ; Bilateral low back pain with sciatica, sciatica laterality unspecified M54.40 ; Pain in right hip M25.551 ; Pain in left hip M25.552 ; Chronic prescription opiate use Z79.899 ; Primary insomnia F51.01 and Hypothyroidism, unspecified hypothyroidism type E03.9 [place] [address] [address] [address] [place] [address] Mar, [place] [address] [address] Feb, [place] [address] [id number] [place] [address] 16 Feb, 2015 Chronic pain syndrome G89.4 and Major depression F32.9 [place] [address] [id number] [place] [address] 16 Feb, 2015 Fatigue R53.83 [place] [address] [id number] [place] [address] 13 Feb, 2015 History of fracture Z87.81 [place] [address] [id number] [place] [address] 12 Feb, 2015 Major depression, recurrent F33.9 and Generalized anxiety disorder F41.1 [place] [address] [id number] [place] [address] Feb, [facility] [address], [place] [address] Jan, Hypothyroidism, unspecified hypothyroidism type E03.9 [place] [address] [place] [address] Jan, Abdominal pain R10.9 and Hypothyroidism, unspecified hypothyroidism type E03.9 [place] [address] [id number] [place] [address] Jan, Abdominal pain R10.9 [place] [address] [id number] [place] [address] Jan, Hypothyroidism, unspecified hypothyroidism type E03.9 [place] [address] [id number] [place] [address] Jan, [place] [address] [id number] [place] [address] Jan, 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 and Hypothyroidism, unspecified hypothyroidism type E03.9 [place] [id number] [place] [address] Jan, 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 ; Abdominal pain R10.9 ; Dyspareunia N94.1 ; Encounter for immunization Z23 ; History of fracture Z87.81 ; Fatigue R53.83 ; Throat fullness R68.89 ; Bruises easily R23.8 ; Hot flashes N95.1 ; Depression F32.9 and Vaginal atrophy N95.2 [place] [address] [place] [address] Jan, Hypothyroidism, unspecified hypothyroidism type E03.9 [place] [address] [place] [address] Jan, Unspecified abdominal pain R10.9 ; Chronic obstructive pulmonary disease, unspecified COPD type J44.9 ; Allergic rhinitis, unspecified allergic rhinitis type J30.9 ; Chronic pain syndrome G89.4 ; Hypothyroidism, unspecified hypothyroidism type E03.9 ; Chest pain, unspecified chest pain type R07.9 and Plantar fasciitis M72.2 [facility] [address] [place] [address] Jan, Trochanteric bursitis of both hips M70.61 [facility] [id number] [place] [address] Dec, [facility] [id number] [place] [address] Nov, [facility] [id number] [place] [address] Nov, [facility] [id number] [place] [address] Nov, Constipation 564.00 [facility] [id number] [place] [address] Oct, Chronic pain 338.29 and Hypothyroidism 244.9 [facility] [id number] [place] [address] Oct, [facility] [id number] [place] [address] Sep, [facility] [address], [place] [address] Sep, [facility] [id number] [place] [address] Sep, [facility] [id number] [place] [address] Sep, [facility] [id number] [place] [address] Sep, [facility] [address] [address] Sep, [facility] [address] [address] Sep, COPD exacerbation 491.21 ; Chronic pain 338.29 ; Hypothyroidism 244.9 and Pancytopenia 284.19 [facility] [address] [place] [address] August, [facility] [id number] [place] [address] Jul, [facility] [id number] [place] [address] Jul, [facility] [id number] [place] [address] Jun, [facility] [id number] [place] [id number] Jun, [facility] [id number] [place] [id number] Jun, [facility] [id number] [place] [id number] Jun, [facility] [id number] [place] [id number] Jun, [facility] [id number] [address] May, [facility] [id number] [address] May, [facility] [id number] [address] May, [facility] [id number] [address] May, [facility] [id number] [address] May, [facility] [id number] [address] May, [facility] [place] [facility] [address] [id number] [place] [address] May, 2014 [facility] [place] [facility] [address] [id number] [place] [address] May, 2014 [facility] [place] [facility] [address] [id number] [place] [address] May, 2014 [facility] [place] [facility] [address] [id number] [place] [address] May, 2014 [facility] [place] [facility] [address] [id number] [place] [address] May, [facility] [place] [facility] [address] [id number] [place] [address] May, [facility] [place] [facility] [address] [id number] [place] [address] May, [facility] [place] [facility] [address] [id number] [place] [address] Apr, [facility] [place] [facility] [address] [id number] [place] [address] Apr, [facility] [place] [facility] [address] [id number] [place] [address] Apr, [facility] [place] [facility] [address] [id number] [place] [address] Apr, [facility] [place] [facility] [address] [id number], [place] [address] Apr, [facility] [place] [facility] [address] [id number] [place] [address] Apr, [facility] [place] [facility] [address] [id number] [place] [address] Apr, [facility] [place] [facility] [address] [id number] [place] [address] Mar, [facility] [place] [facility] [address] [id number] [place] [address] Mar, [facility] [place] [facility] [address] [id number] [place] [address] Mar, [facility] [place] [facility] [address] [id number] [place] [address] Mar, [facility] [place] [facility] [address] [id number] [place] [address] Mar, [facility] [place] [facility] [address] [id number] [place] [address] Mar, [facility] [place] [facility] [address] [id number] [place] [address] Feb, [facility] [place] [facility] [address] [id number] [place] [address] Feb, [facility] [place] [facility] [address] [id number] [place] [address] Feb, [facility] [place] [facility] [address] [id number] [place] [address] Feb, [facility] [place] [facility] [address] [id number] [place] [address] Feb, [facility] [place] [facility] [address] [facility] [id number] [place] [address] Feb, [facility] [place] [facility] [address] [id number] [place] [address] Jan, [facility] [place] [facility] [address] [id number] [place] [address] Jan, [facility] [place] [facility] [address] [id number] [place] [address] Jan, [facility] [place] [facility] [address] [id number] [place] [address] Jan, [facility] [place] [facility] [address] [id number], [place] [address] Jan, [facility] [place] [facility] [address] [id number] [place] [address] Jan, [facility] [place] [facility] [address] [id number] [place] [address] Jan, [facility] [place] [facility] [address] [id number] [place] [address] Jan, [facility] [place] [facility] [address] [id number] [place] [address] Dec, [facility] [place] [facility] [address] [id number] [place] [address] Dec, [facility] [place] [facility] [address] [id number] [place] [address] Dec, [facility] [place] [facility] [address] [id number] [place] [address] Dec, [facility] [place] [facility] [address] [id number] [place] [address] Dec, [facility] [place] [facility] [address] [id number] [place] [address] Dec, [facility] [place] [facility] [address] [id number] [place] [address] Dec, [facility] [place] [facility] [address] [id number] [place] [address] Nov, [facility] [place] [facility] [address] [id number] [place] [address] Nov, [facility] [place] [facility] [address] [id number] [place] [address] Oct, [facility] [place] [facility] [address] [id number] [place] [address] Oct, [facility] [place] [facility] [address] [id number] [place] [address] Oct, [facility] [place] [facility] [address] [id number] [place] [address] Oct, [facility] [place] [facility] [address] [id number] [place] [address] Sep, [facility] [place] [facility] [address] [id number] [place] [address] Sep, [facility] [place] [facility] [address] [id number] [place] [address] Sep, [facility] [place] [facility] [address] [id number] [place] [address] Sep, [facility] [place] [facility] [address] [id number] [place] [address] Sep, [facility] [place] [facility] [address] [id number] [place] [address] Sep, [facility] [place] [facility] [address] [id number] [place] [address] Sep, [facility] [place] [facility] [address] [id number] [place] [address] Sep, [facility] [place] [facility] [address] [id number] [place] [address] August, [facility] [place] [facility] [address] [id number] [place] [address] August, [facility] [place] [facility] [address] [id number] [place] [address] August, [facility] [place] [facility] [address] [id number] [place] [address] August, [facility] [place] [facility] [address] [id number] [place] [address] Jul, [facility] [place] [facility] [address] [id number] [place] [address] Jul, [facility] [place] [facility] [address] [id number] [place] [address] Jul, [facility] [place] [facility] [address] [id number] [place] [address] 24 Jul, 2013 [facility] [address] [id number] [place] [address] 17 Jul, 2013 [facility] [place] [facility] [address] [id number] [place] [address] 16 Jul, 2013 [facility] [address] [id number] [place] [address] 15 Jul, 2013 [facility] [place] [facility] [address] [id number] [place] [address] 15 Jul, 2013 [facility] [address] [id number] [place] [address] 18 Jun, 2013 [facility] [address] [id number] [place] [address] 18 Jun, 2013 [facility] [place] [facility] [address] [id number] [place] [address] Jun, [facility] [address] [id number] [place] [address] Jun, [facility] [place] [facility] [address] [id number] [place] [address] Jun, [facility] [address] [id number] [place] [address] Jun, [facility] [place] [facility] [address] [id number] [place] [address] Jun, [facility] [place] [facility] [address] [id number] [place] [address] Jun, [facility] [place] [facility] [address] [id number] [place] [address] May, [facility] [place] [facility] [address] [id number] [place] [address] May, [facility] [place] [facility] [address] [id number] [place] [address] Apr, [facility] [place] [facility] [address] [id number] [place] [address] 17 Apr, 2013 [facility] [place] [facility] [address] [id number] [place] [address] Mar, [facility] [place] [facility] [address] [id number] [place] [address] Mar, [facility] [place] [facility] [address] [id number] [place] [address] Mar, [facility] [place] [facility] [address] [id number] [place] [address] Mar, [facility] [place] [facility] [address] [id number] [place] [address] Mar, [facility] [place] [facility] [address] [id number] [place] [address] Mar, [facility] [place] [facility] [address] [id number] [place] [address] Mar, [facility] [place] [facility] [address] [id number] [place] [address] Feb, [facility] [place] [facility] [address] [id number] [place] [address] Feb, [facility] [place] [facility] [address] [id number] [place] [address] Feb, [facility] [place] [facility] [address] [id number] [place] [address] Feb, [facility] [place] [facility] [address] [id number] [place] [address] Feb, [facility] [place] [facility] [address] [id number] [place] [address] Feb, [facility] [place] [facility] [address] [id number] [place] [address] Dec, [facility] [place] [facility] [address] [id number] [place] [address] 18 Dec, 2012 [facility] [address] [id number] [place] [address] 13 Dec, 2012 [facility] [address] [id number] [place] [address] Dec, [facility] [address] [id number] [place] [address] Dec, [facility] [address] [id number] [place] [address] Nov, [facility] [address] [id number] [place] [address] Nov, [facility] [address] [id number] [place] [address] Oct, [facility] [address] [id number] [place] [address] August, [facility] [address] [id number] [place] [address] August, [facility] [address] [id number] [place] [address] August, [facility] [address] [id number] [place] [address] Jul, [facility] [address] [id number] [place] [address] Jul, [facility] [address] [id number] [place] [address] Jul, [facility] [address] [id number] [place] [address] Jun, [facility] [place] [facility] [address] [id number] [place] [address] Jun, [facility] [address] [id number] [place] [address] Jun, [facility] [address] [id number] [place] [address] 20 Jun, 2012 [facility] [place] [facility] [address] [id number] [place] [address] 18 Jun, 2012 [facility] [place] [facility] [address] [id number] [place] [address] 15 Jun, 2012 [facility] [place] [facility] [address] [id number] [place] [address] 12 Jun, 2012 [facility] [place] [facility] [address] [id number] [place] [address] 18 May, 2012 [facility] [place] [facility] [address] [id number] [place] [address] 11 May, 2012 [facility] [place] [facility] [address] [id number] [place] [address] 06 May, 2012 [facility] [place] [facility] [address] [id number] [place] [address] 05 May, 2012 [facility] [place] [facility] [address] [id number] [place] [address] Apr, [facility] [place] [facility] [address] [id number] [place] [address] Apr, [facility] [place] [facility] [address] [id number] [place] [address] Apr, [facility] [place] [facility] [address] [id number] [place] [address] Mar, [facility] [place] [facility] [address] [id number] [place] [address] Mar, [facility] [place] [facility] [address] [id number] [place] [address] Mar, [facility] [place] [facility] [address] [id number] [place] [address] Mar, [facility] [place] [facility] [address] [id number], [place] [address] Mar, [facility] [place] [facility] [address] [id number] [place] [address] Mar, [facility] [place] [facility] [address] [id number] [place] [address] Mar, [facility] [place] [facility] [address] [id number] [place] [address] Mar, [facility] [place] [facility] [address] [id number] [place] [address] Feb, [facility] [place] [facility] [address] [id number] [place] [address] Feb, [facility] [place] [facility] [address] [id number] [place] [address] Feb, [facility] [place] [facility] [address] [id number] [place] [address] Jan, [facility] [place] [facility] [address] [id number] [place] [address] Jan, [facility] [place] [facility] [address] [id number], [place] [address] Jan, [facility] [place] [facility] [address] [id number], [place] [address] Jan, [facility] [place] [facility] [address] [id number], [place] [address] Jan, [facility] [place] [facility] [address] [id number], [place] [address] Jan, [facility] [place] [facility] [address] [id number], [place] [address] Jan, [facility] [place] [facility] [address] [id number], [place] [address] Dec, [facility] [place] [facility] [address] [id number] [place] [address] 24 Dec, 2011 [facility] [place] [facility] [address] [id number] [place] [address] 10 Dec, 2011 [facility] [address] [id number] [place] [address] Nov, [facility] [place] [facility] [address] [id number] [place] [address] Nov, [facility] [address] [id number] [place] [address] Nov, [facility] [place] [facility] [address] [id number] [place] [address] Nov, [facility] [place] [facility] [address] [id number] [place] [address] Oct, [facility] [place] [facility] [address] [id number] [place] [address] Oct, [facility] [place] [facility] [address] [id number] [place] [address] Oct, [facility] [address] [id number] [place] [address] Sep, [facility] [place] [facility] [address] [id number] [place] [address] Sep, [facility] [address] [id number] [place] [address] Sep, [facility] [place] [facility] [address] [id number] [place] [address] Sep, [facility] [place] [facility] [address] [id number] [place] [address] Sep, [facility] [place] [facility] [address] [id number] [place] [address] Sep, [facility] [place] [facility] [address] [id number] [place] [address] August, [facility] [place] [facility] [address] [id number] [place] [address] Jul, [facility] [place] [facility] [address] [id number] [place] [address] 18 Jul, 2011 [facility] [place] [facility] [address] [id number] [place] [address] Jul, [facility] [place] [facility] [address] [id number] [place] [address] Jul, [facility] [place] [facility] [address] [id number] [place] [address] Jul, [facility] [place] [facility] [address] [id number] [place] [address] 29 Jun, 2011 [facility] [place] [facility] [address] [id number] [place] [address] 27 Jun, 2011 [facility] [place] [facility] [address] [facility] [id number] [place] [address] 15 Jun, 2011 [facility] [place] [facility] [address] [id number] [place] [address] Jun, [facility] [place] [facility] [address] [id number] [place] [address] Jun, [facility] [place] [facility] [address] [facility] [id number] [place] [address] May, [facility] [place] [facility] [address] [id number] [place] [address] May, [facility] [place] [facility] [address] [id number], [place] [address] May, [facility] [place] [facility] [address] [id number] [place] [address] May, [facility] [place] [facility] [address] [id number] [place] [address] May, [facility] [place] [facility] [address] [id number] [place] [address] May, [facility] [place] [facility] [address] [id number] [place] [address] 02 May, 2011 [facility] [address] [id number] [place] [address] 10 Apr, 2011 [facility] [place] [facility] [address] [id number] [place] [address] 29 Mar, 2011 [facility] [address] [id number] [place] [address] Mar, [facility] [place] [facility] [address] [id number] [place] [address] Mar, [facility] [address] [id number] [place] [address] Mar, [facility] [address] [id number] [place] [address] Mar, [facility] [address] [id number] [place] [address] 23 Feb, 2011 [facility] [address] [id number] [place] [address] 14 Feb, 2011 [facility] [place] [facility] [address] [id number] [place] [address] 14 Feb, 2011 [facility] [address] [id number] [place] [address] 14 Feb, 2011 [facility] [place] [facility] [address] [id number] [place] [address] Feb, [facility] [place] [facility] [address] [id number] [place] [address] Feb, [facility] [place] [facility] [address] [id number] [place] [address] 04 Feb, 2011 [facility] [place] [facility] [address] [id number] [place] [address] 10 Jan, 2011 [facility] [place] [facility] [address] [id number] [place] [address] Dec, [facility] [address] [id number] [place] [address] 11 Oct, 2010 [facility] [place] [facility] [address] [id number] [place] [address] Jun, [facility] [place] [facility] [address] [id number] [place] [address] 23 Mar, 2010 [facility] [place] [facility] [address] [id number] [place] [address] 23 Mar, 2010 [facility] [place] [facility] [address] [id number] [place] [address] 16 Mar, 2010 [facility] [place] [facility] [address] [id number] [place] [address] 16 Mar, 2010 [facility] [place] [facility] [address] [id number] [place] [address] 15 Mar, 2010 [facility] [place] [facility] [address] [id number] [place] [address] 10 Mar, 2010 [facility] [place] [facility] [address] [id number] [place] [address] 10 Mar, 2010 [facility] [place] [facility] [address] [id number], [place] [address] 05 Mar, 2010 [facility] [place] [facility] [address] [id number], [place] [address] Mar, [facility] [place] [facility] [address] [id number], [place] [address] Mar, [facility] [place] [facility] [address] [id number] [place] [address] Jan, [facility] [place] [facility] [address] [id number], [place] [address] Jan, [facility] [place] [facility] [address] [id number], [place] [address] Jan, [facility] [place] [facility] [address] [id number], [place] [address] Nov, [facility] [id number] [address] Oct, [facility] [id number] [address] Mar, [facility] [id number], [place] [address] Mar, [facility] [id number] [place] [address] Mar, [facility] [id number] [place] [address] Mar, [facility] [id number] [place] [address] Dec, [facility] [id number] [place] [address] August, [facility] [id number] [address] August, [facility] [id number] [address] Jul, [facility] [id number], [place] [address] Jan, [facility] [id number] [address] Jan, IMMUNIZATIONS No Known Immunizations SOCIAL HISTORY [...]
--- NOTE | 2018-09-22 03:26 | NUR ---
tech to do ua.
--- OUTSIDE RECORDS SUMMARY | 2018-09-22 03:26 | XMS REPORT ---
Author Author FLORENTINEZEKIEL PUCKETT Organization [facility] Address [address] [place] [address] Care Team Providers Care Patch Press Operator Name Role Phone DANICA LERMAY Unavailable PROBLEMS Type Condition ICD9-CM Code [id number] Code Onset Dates Condition Status SNOMED Code Problem Chronic gastritis without bleeding, unspecified gastritis type K29.50 Active 7961958 Problem Vitamin D deficiency E55.9 Active 06495114 Problem Osteoporosis M81.0 Active 59636592 Problem Unspecified abdominal pain R10.9 Active 158431689 Problem Fibromyalgia M79.7 Active 71559238 Problem Chronic pain syndrome G89.4 Active 145519102 Problem Trigger point with back pain M54.9 Active 128457275 Problem Chronic tension-type headache, not intractable G44.229 Active 309331030 Problem RUQ abdominal pain R10.11 Active 536230027 Problem Pancytopenia D61.818 Active 534756766 Problem Right sided sciatica M54.31 Active 39538015 Problem Chronic prescription opiate use Z79.891 Active 619639772 Problem Drug induced constipation K59.03 Active 698502931096857 Problem Leukopenia, unspecified type D72.819 Active 07238214 Problem Atrial fibrillation, unspecified type I48.91 Active 56587622 Problem Allergic rhinitis, unspecified allergic rhinitis type J30.9 Active 37616907 Problem Chronic obstructive pulmonary disease, unspecified COPD type J44.9 Active 37594590 Problem Hypothyroidism, unspecified hypothyroidism type E03.9 Active 28517992 Problem Other constipation K59.09 Active 185095219 Problem Porokeratosis Q82.8 Active 701293231 Problem 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 Active 797990153 Problem Allergy to intravenous contrast Z91.041 Active 881228349 Problem Vaginal atrophy N95.2 Active 752380782 Problem Major depression, recurrent F33.9 Active 44148795 Problem History of hepatitis C Z86.19 Active 07221197704534 Problem Hot flashes N95.1 Active 746635010 Problem Plantar fasciitis M72.2 Active 970308741 Problem Polyneuropathy associated with underlying disease G63 Active 710415262 Problem Primary insomnia F51.01 Active 7675308 Problem Low back pain M54.5 Active 828946117 ALLERGIES No Information ENCOUNTERS Encounter Location Date Diagnosis [place] [id number] [place] [address] August, [place] [id number] [place] [address] August, Chronic pain syndrome G89.4 [place] [id number] [place] [address] Jul, Trochanteric bursitis of left hip M70.62 and Trochanteric bursitis, right hip M70.61 [place] [id number] [place] [address] Jul, [place] [id number] [place] [address] Jul, Chronic pain syndrome G89.4 [place] [id number] [place] [address] Jul, Hypothyroidism, unspecified hypothyroidism type E03.9 [place] [id number] [place] [address] Jul, Hypothyroidism, unspecified hypothyroidism type E03.9 [place] [id number] [place] [address] Jul, Chronic tension-type headache, not intractable G44.229 ; Atrial fibrillation, unspecified type I48.91 ; Chronic pain syndrome G89.4 ; Hypothyroidism, unspecified hypothyroidism type E03.9 ; Pancytopenia D61.818 ; History of hepatitis C Z86.19 ; Vaginal atrophy N95.2 ; RUQ abdominal pain R10.11 ; Chronic prescription opiate use Z79.891 ; Osteoporosis M81.0 and Screening for breast cancer Z12.31 [place] [address] [address] Jun, [facility] [address] [address] May, [facility] [address] [address] May, [facility] [id number] [place] [address] May, [facility] [id number] [place] [address] Apr, [facility] [id number] [place] [address] Apr, Hypothyroidism, unspecified hypothyroidism type E03.9 [facility] [id number] [place] [address] Apr, Hypothyroidism, unspecified hypothyroidism type E03.9 and Leukopenia, unspecified type D72.819 [facility] [address] [address] Mar, [facility] [address] [address] Mar, Leukopenia, unspecified type D72.819 [facility] [address], [place] [address] Mar, Hypothyroidism, unspecified hypothyroidism type E03.9 and Low hemoglobin D64.9 [facility] [address], [place] [address] Mar, Hypothyroidism, unspecified hypothyroidism type E03.9 [facility] [address], [place] [address] Mar, Osteoporosis M81.0 ; Low hemoglobin D64.9 and Hypothyroidism, unspecified hypothyroidism type E03.9 [facility] [address], [place] [address] Mar, Hypothyroidism, unspecified hypothyroidism type E03.9 ; Bilirubin in urine R82.2 and Pancytopenia D61.818 [place] [address] [address] Feb, [facility] [place] [address] [address] 18 Feb, 2017 Cough R05 and Bronchitis J40 [facility] [address] [address] 14 Feb, 2017 Other viral agents as the cause of diseases classified elsewhere B97.89 and Acute upper respiratory infection, unspecified J06.[address] [address] Feb, Fibromyalgia M79.7 ; Chronic pain syndrome G89.4 ; Hypothyroidism, unspecified hypothyroidism type E03.9 ; Primary insomnia F51.01 ; Osteoporosis M81.0 ; Vision abnormalities H53.9 ; Pancytopenia D61.818 ; BMI 28.0-28.9,adult Z68.28 and Encounter for immunization Z23 [address] [address] Feb, Neuroma D36.10 and Capsulitis of right foot M77.[address] [address] Feb, [address] [address] Feb, Hypothyroidism, unspecified hypothyroidism type E03.9 [place] [address] [address] Jan, [address] [address] Jan, Atrial fibrillation, unspecified type I48.[address] [address] Jan, [id number] [place] [address] Jan, Fibromyalgia M79.7 ; Atrial fibrillation, unspecified type I48.91 ; Pain of left hand M79.642 ; Pain in right hand M79.641 ; Chronic prescription opiate use Z79.891 ; Chronic pain syndrome G89.4 ; Elevated fasting glucose R73.01 and Hypothyroidism, unspecified hypothyroidism type E03.9 [place] [address] [address] Jan, [place] [id number] [place] [address] Dec, Trochanteric bursitis of both hips M70.61 [place] [address] [address] Dec, [place] [address] [address] Dec, [place] [id number] [place] [address] Nov, [place] [id number] [place] [address] Nov, Unilateral headache R51 [place] [id number] [place] [address] Nov, [place] [id number] [place] [address] Oct, Unilateral headache R51 ; 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 and Allergy to intravenous contrast Z91.041 [facility] [id number] [place] [address] Oct, [facility] [id number] [place] [address] Oct, [facility] [id number] [place] [address] Sep, Hypothyroidism, unspecified hypothyroidism type E03.9 [facility] [id number] [place] [address] Sep, Hypothyroidism, unspecified hypothyroidism type E03.9 and Bilirubin in urine R82.2 [facility] [address] [address] Sep, Trochanteric bursitis of both hips M70.61 [facility] [address] [address] Sep, Hypothyroidism, unspecified hypothyroidism type E03.9 ; Dysuria R30.0 ; Chronic tension-type headache, not intractable G44.229 and Drug induced constipation K59.03 [place] [address] [address] Sep, [place] [address] [address] Sep, [facility] [address] [address] August, [facility] [address] [address] Jul, [place] [address] [address] Jul, Trochanteric bursitis of right hip M70.61 [place] [address] [address] Jul, Hypothyroidism, unspecified hypothyroidism type E03.9 [facility] [address] [address] Jul, Fibromyalgia M79.7 ; Chronic pain syndrome G89.4 ; Hypothyroidism, unspecified hypothyroidism type E03.9 and Other constipation K59.09 [facility] [id number] [place] [address] Jun, Swollen tonsil J35.1 and Strep throat J02.0 [facility] [address] [place] [address] Jun, [facility] [id number] [place] [address] Jun, Acute maxillary sinusitis J01.00 [facility] [id number] [place] [address] Jun, Hypothyroidism, unspecified hypothyroidism type E03.9 [facility] [id number] [place] [address] Jun, Chronic pain syndrome G89.4 ; Fibromyalgia M79.7 ; Hypothyroidism, unspecified hypothyroidism type E03.9 and Chronic prescription opiate use Z79.891 [facility] [id number] [place] [address] May, [facility] [id number] [place] [address] Apr, Hypothyroidism, unspecified hypothyroidism type E03.9 [facility] [id number] [place] [address] Apr, [facility] [id number] [place] [address] Apr, Lipid screening Z13.220 and Hypothyroidism, unspecified hypothyroidism type E03.9 [facility] [id number] [place] [address] Apr, [facility] [id number] [place] [address] Mar, Trochanteric bursitis of both hips M70.61 [facility] [id number] [place] [address] Mar, [facility] [address] [address] Mar, Plantar fasciitis M72.2 and Porokeratosis Q82.8 [facility] [address] [address] Feb, Lipid screening Z13.220 ; Vitamin D deficiency E55.9 and Hypothyroidism, unspecified hypothyroidism type E03.9 [place] [id number] [place] [address] Feb, Chronic pain syndrome G89.4 ; Hypothyroidism, unspecified hypothyroidism type E03.9 ; Pancytopenia D61.818 ; Vaginal atrophy N95.2 ; Chronic gastritis without bleeding, unspecified gastritis type K29.50 ; Vitamin D deficiency E55.9 ; Chronic prescription opiate use Z79.891 ; Adverse effect of other opioids, initial encounter T40.2X5A ; Drug induced constipation K59.03 ; Lipid screening Z13.220 and Encounter for immunization Z23 [place] [address] [address] Feb, [place] [address] [address] Feb, Ingrown toenail L60.0 [place] [address] [address] Jan, [place] [address] [address] Jan, Trochanteric bursitis of both hips M70.61 [place] [address] [address] Jan, [place] [address] [address] Jan, [facility] [id number] [place] [address] Jan, [place] [address] [address] Jan, Right sided sciatica M54.31 [place] [id number] [place] [address] Dec, Onychomycosis B35.1 [place] [address], [place] [address] Dec, [facility] [address], [place] [address] Dec, [facility] [id number] [place] [address] Dec, [facility] [id number] [place] [address] Dec, Osteoarthritis of right hip, unspecified osteoarthritis type M16.11 and Bursitis of right hip M70.71 [facility] [id number] [place] [address] Nov, [facility] [id number] [place] [address] Nov, [facility] [id number] [place] [address] Nov, [facility] [id number] [place] [address] Nov, Hypothyroidism, unspecified hypothyroidism type E03.9 ; Vitamin D deficiency E55.9 and History of hepatitis C Z86.19 [facility] [address], [place] [address] Nov, Right upper quadrant pain R10.11 ; History of hepatitis C Z86.19 and Low back pain M54.5 [facility] [address], [place] [address] Oct, Trochanteric bursitis, right hip M70.61 [facility] [id number] [place] [address] Oct, [facility] [address], [place] [address] Oct, [facility] [id number] [place] [address] Oct, Trochanteric bursitis of both hips M70.61 and Right sided sciatica M54.31 [place] [id number] [place] [address] Oct, Trochanteric bursitis of both hips M70.61 [place] [id number] [place] [address] 14 Oct, 2015 RUQ abdominal pain R10.11 [place] [address] [address] 13 Oct, 2015 Sciatic leg pain M54.30 [place] [id number] [place] [address] Oct, RUQ abdominal pain R10.11 [place] [id number] [place] [address] 07 Oct, 2015 RUQ abdominal pain R10.11 ; History of hepatitis C Z86.19 and Trigger point with back pain M54.9 [place] [id number] [place] [address] Sep, [place] [id number] [place] [address] Sep, Right sided sciatica M54.31 [place] [id number] [place] [address] 06 Sep, 2015 Hypothyroidism, unspecified hypothyroidism type E03.9 and Vitamin D deficiency E55.9 [place] [id number] [place] [address] Sep, Plantar fasciitis M72.2 and Porokeratosis Q82.8 [place] [address] [address] Sep, Hypothyroidism, unspecified hypothyroidism type E03.9 ; Chronic pain syndrome G89.4 ; Polyneuropathy associated with underlying disease G63 and Vitamin D deficiency E55.9 [place] [id number] [place] [address] August, [facility] [id number] [place] [address] Jul, Plantar fasciitis M72.2 [facility] [id number] [place] [address] 28 Jul, 2015 Trochanteric bursitis, right hip M70.61 [place] [id number] [place] [address] 07 Jul, 2015 Hypothyroidism, unspecified hypothyroidism type E03.9 [place] [id number] [place] [address] Jul, Hypothyroidism, unspecified hypothyroidism type E03.9 ; Chronic pain syndrome G89.4 and Polyneuropathy associated with underlying disease G63 [facility] [id number] [place] [address] Jun, Trochanteric bursitis of both hips M70.61 [facility] [id number] [place] [address] 08 Jun, 2015 Vitamin D deficiency E55.9 ; Osteoporosis M81.0 ; Low back pain M54.5 and Plantar fasciitis M72.2 [place] [id number] [place] [address] May, Vitamin D deficiency E55.9 and Hypothyroidism, unspecified hypothyroidism type E03.9 [place] [id number] [place] [address] May, Acute maxillary sinusitis J01.00 [place] [id number] [place] [address] May, Osteoporosis M81.0 and Hypothyroidism, unspecified hypothyroidism type E03.9 [place] [id number] [place] [address] 16 May, 2015 Osteoporosis M81.0 [place] [id number] [place] [address] 15 May, 2015 [place] [id number] [place] [address] Apr, [place] [id number] [place] [address] Apr, Trochanteric bursitis of both hips M70.61 [place] [id number] [place] [address] Apr, Hypothyroidism, unspecified hypothyroidism type E03.9 [place] [id number] [place] [address] Apr, Chronic pain syndrome G89.4 ; Bilateral low back pain with sciatica, sciatica laterality unspecified M54.40 ; Pain in right hip M25.551 ; Pain in left hip M25.552 ; Chronic prescription opiate use Z79.899 ; Primary insomnia F51.01 and Hypothyroidism, unspecified hypothyroidism type E03.9 [place] [id number] [place] [address] Mar, [place] [address] [address] Feb, [place] [id number] [place] [address] 16 Feb, 2015 Chronic pain syndrome G89.4 and Major depression F32.9 [place] [id number] [place] [address] 16 Feb, 2015 Fatigue R53.83 [place] [id number] [place] [address] 13 Feb, 2015 History of fracture Z87.81 [place] [id number] [place] [address] 12 Feb, 2015 Major depression, recurrent F33.9 and Generalized anxiety disorder F41.1 [place] [id number] [place] [address] Feb, [facility] [address], [place] [address] Jan, Hypothyroidism, unspecified hypothyroidism type E03.9 [place] [id number] [place] [address] Jan, Abdominal pain R10.9 and Hypothyroidism, unspecified hypothyroidism type E03.9 [place] [id number] [place] [address] Jan, Abdominal pain R10.9 [place] [id number] [place] [address] Jan, Hypothyroidism, unspecified hypothyroidism type E03.9 [place] [id number] [place] [address] Jan, [place] [id number] [place] [address] Jan, 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 and Hypothyroidism, unspecified hypothyroidism type E03.9 [place] [id number] [place] [address] Jan, 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 ; Abdominal pain R10.9 ; Dyspareunia N94.1 ; Encounter for immunization Z23 ; History of fracture Z87.81 ; Fatigue R53.83 ; Throat fullness R68.89 ; Bruises easily R23.8 ; Hot flashes N95.1 ; Depression F32.9 and Vaginal atrophy N95.2 [place] [id number] [place] [address] Jan, Hypothyroidism, unspecified hypothyroidism type E03.9 [place] [id number] [place] [address] Jan, Unspecified abdominal pain R10.9 ; Chronic obstructive pulmonary disease, unspecified COPD type J44.9 ; Allergic rhinitis, unspecified allergic rhinitis type J30.9 ; Chronic pain syndrome G89.4 ; Hypothyroidism, unspecified hypothyroidism type E03.9 ; Chest pain, unspecified chest pain type R07.9 and Plantar fasciitis M72.2 [facility] [id number] [place] [address] Jan, Trochanteric bursitis of both hips M70.61 [facility] [id number] [place] [address] Dec, [facility] [id number] [place] [address] Nov, [facility] [id number] [place] [address] Nov, [facility] [id number] [place] [address] Nov, Constipation 564.00 [facility] [id number] [place] [address] Oct, Chronic pain 338.29 and Hypothyroidism 244.9 [facility] [id number] [place] [address] Oct, [facility] [id number] [place] [address] Sep, [facility] [address], [place] [address] Sep, [facility] [id number] [place] [address] Sep, [facility] [id number] [place] [address] Sep, [facility] [id number] [place] [address] Sep, [facility] [address], [place] [address] Sep, [facility] [address] [address] Sep, COPD exacerbation 491.21 ; Chronic pain 338.29 ; Hypothyroidism 244.9 and Pancytopenia 284.19 [facility] [address], [place] [address] August, [facility] [id number] [place] [address] Jul, [facility] [id number] [place] [address] Jul, [facility] [id number] [place] [address] Jun, [facility] [id number] [place] [address] Jun, [facility] [id number] [place] [address] Jun, [facility] [id number] [place] [address] Jun, [facility] [id number] [place] [address] Jun, [facility] [id number] [address] May, [facility] [id number] [address] May, [facility] [id number] [address] May, [facility] [id number] [address] May, [facility] [id number] [address] May, [facility] [id number] [address] May, [facility] [place] [facility] [address] [id number] [place] [address] May, 2014 [facility] [place] [facility] [address] [id number] [place] [address] May, 2014 [facility] [place] [facility] [address] [id number] [place] [address] May, 2014 [facility] [place] [facility] [address] [id number] [place] [address] May, 2014 [facility] [place] [facility] [address] [id number] [place] [address] May, [facility] [place] [facility] [address] [id number] [place] [address] May, [facility] [place] [facility] [address] [id number] [place] [address] May, [facility] [place] [facility] [address] [id number] [place] [address] Apr, [facility] [place] [facility] [address] [id number] [place] [address] Apr, [facility] [place] [facility] [address] [id number] [place] [address] Apr, [facility] [place] [facility] [address] [id number] [place] [address] Apr, [facility] [place] [facility] [address] [id number] [address] Apr, [facility] [place] [facility] [address] [id number] [place] [address] Apr, [facility] [place] [facility] [address] [id number] [place] [address] Apr, [facility] [place] [facility] [address] [id number] [place] [address] Mar, [facility] [place] [facility] [address] [id number] [place] [address] Mar, [facility] [place] [facility] [address] [id number] [place] [address] Mar, [facility] [place] [facility] [address] [id number] [place] [address] Mar, [facility] [place] [facility] [address] [id number] [place] [address] Mar, [facility] [place] [facility] [address] [id number] [place] [address] Mar, [facility] [place] [facility] [address] [id number] [place] [address] Feb, [facility] [place] [facility] [address] [id number] [place] [address] Feb, [facility] [place] [facility] [address] [id number] [place] [address] Feb, [facility] [place] [facility] [address] [id number] [place] [address] Feb, [facility] [place] [facility] [address] [id number] [place] [address] Feb, [facility] [place] [facility] [address] [facility] [id number] [place] [address] Feb, [facility] [place] [facility] [address] [id number] [place] [address] Jan, [facility] [place] [facility] [address] [id number] [place] [address] Jan, [facility] [place] [facility] [address] [id number] [place] [address] Jan, [facility] [place] [facility] [address] [id number] [place] [address] Jan, [facility] [place] [facility] [address] [id number], [place] [address] Jan, [facility] [place] [facility] [address] [id number] [place] [address] Jan, [facility] [place] [facility] [address] [id number] [place] [address] Jan, [facility] [place] [facility] [address] [id number] [place] [address] Jan, [facility] [place] [facility] [address] [id number] [place] [address] Dec, [facility] [place] [facility] [address] [id number] [place] [address] Dec, [facility] [place] [facility] [address] [id number] [place] [address] Dec, [facility] [place] [facility] [address] [id number] [place] [address] Dec, [facility] [place] [facility] [address] [id number] [place] [address] Dec, [facility] [place] [facility] [address] [id number] [place] [address] Dec, [facility] [place] [facility] [address] [id number] [place] [address] Dec, [facility] [place] [facility] [address] [id number] [place] [address] Nov, [facility] [place] [facility] [address] [id number] [place] [address] Nov, [facility] [place] [facility] [address] [id number] [place] [address] Oct, [facility] [place] [facility] [address] [id number] [place] [address] Oct, [facility] [place] [facility] [address] [id number] [place] [address] Oct, [facility] [place] [facility] [address] [id number] [place] [address] Oct, [facility] [place] [facility] [address] [id number] [place] [address] Sep, [facility] [place] [facility] [address] [id number] [place] [address] Sep, [facility] [place] [facility] [address] [id number] [place] [address] Sep, [facility] [place] [facility] [address] [id number] [place] [address] Sep, [facility] [place] [facility] [address] [id number] [place] [address] Sep, [facility] [place] [facility] [address] [id number] [place] [address] Sep, [facility] [place] [facility] [address] [id number] [place] [address] Sep, [facility] [place] [facility] [address] [id number] [place] [address] Sep, [facility] [place] [facility] [address] [id number] [place] [address] August, [facility] [place] [facility] [address] [id number] [place] [address] August, [facility] [place] [facility] [address] [id number] [place] [address] August, [facility] [place] [facility] [address] [id number] [place] [address] August, [facility] [place] [facility] [address] [id number] [place] [address] Jul, [facility] [place] [facility] [address] [id number] [place] [address] Jul, [facility] [place] [facility] [address] [id number] [place] [address] Jul, [facility] [place] [facility] [address] [id number] [place] [address] 24 Jul, 2013 [facility] [address] [id number] [place] [address] 17 Jul, 2013 [facility] [place] [facility] [address] [id number] [place] [address] 16 Jul, 2013 [facility] [address] [id number] [place] [address] 15 Jul, 2013 [facility] [place] [facility] [address] [id number] [place] [address] 15 Jul, 2013 [facility] [address] [id number] [place] [address] 18 Jun, 2013 [facility] [address] [id number] [place] [address] 18 Jun, 2013 [facility] [place] [facility] [address] [id number] [place] [address] Jun, [facility] [address] [id number] [place] [address] Jun, [facility] [place] [facility] [address] [id number] [place] [address] Jun, [facility] [address] [id number] [place] [address] Jun, [facility] [place] [facility] [address] [id number] [place] [address] Jun, [facility] [place] [facility] [address] [id number] [place] [address] Jun, [facility] [place] [facility] [address] [id number] [place] [address] May, [facility] [place] [facility] [address] [id number] [place] [address] May, [facility] [place] [facility] [address] [id number] [place] [address] Apr, [facility] [place] [facility] [address] [id number] [place] [address] 17 Apr, 2013 [facility] [place] [facility] [address] [id number] [place] [address] Mar, [facility] [place] [facility] [address] [id number] [place] [address] Mar, [facility] [place] [facility] [address] [id number] [place] [address] Mar, [facility] [place] [facility] [address] [id number] [place] [address] Mar, [facility] [place] [facility] [address] [id number] [place] [address] Mar, [facility] [place] [facility] [address] [id number] [place] [address] Mar, [facility] [place] [facility] [address] [id number] [place] [address] Mar, [facility] [place] [facility] [address] [id number] [place] [address] Feb, [facility] [place] [facility] [address] [id number] [place] [address] Feb, [facility] [place] [facility] [address] [id number] [place] [address] Feb, [facility] [place] [facility] [address] [id number] [place] [address] Feb, [facility] [place] [facility] [address] [id number] [place] [address] Feb, [facility] [place] [facility] [address] [id number] [place] [address] Feb, [facility] [place] [facility] [address] [id number] [place] [address] Dec, [facility] [place] [facility] [address] [id number] [place] [address] 18 Dec, 2012 [facility] [address] [id number] [place] [address] 13 Dec, 2012 [facility] [address] [id number] [place] [address] Dec, [facility] [address] [id number] [place] [address] Dec, [facility] [address] [id number] [place] [address] Nov, [facility] [address] [id number] [place] [address] Nov, [facility] [address] [id number] [place] [address] Oct, [facility] [address] [id number] [place] [address] August, [facility] [address] [id number] [place] [address] August, [facility] [address] [id number] [place] [address] August, [facility] [address] [id number] [place] [address] Jul, [facility] [address] [id number] [place] [address] Jul, [facility] [address] [id number] [place] [address] Jul, [facility] [address] [id number] [place] [address] Jun, [facility] [place] [facility] [address] [id number] [place] [address] Jun, [facility] [address] [id number] [place] [address] Jun, [facility] [address] [id number] [place] [address] 20 Jun, 2012 [facility] [place] [facility] [address] [id number] [place] [address] 18 Jun, 2012 [facility] [place] [facility] [address] [id number] [place] [address] 15 Jun, 2012 [facility] [place] [facility] [address] [id number] [place] [address] 12 Jun, 2012 [facility] [place] [facility] [address] [id number] [place] [address] 18 May, 2012 [facility] [place] [facility] [address] [id number] [place] [address] 11 May, 2012 [facility] [place] [facility] [address] [id number] [place] [address] 06 May, 2012 [facility] [place] [facility] [address] [id number] [place] [address] 05 May, 2012 [facility] [place] [facility] [address] [id number] [place] [address] Apr, [facility] [place] [facility] [address] [id number] [place] [address] Apr, [facility] [place] [facility] [address] [id number] [place] [address] Apr, [facility] [place] [facility] [address] [id number] [place] [address] Mar, [facility] [place] [facility] [address] [id number] [place] [address] Mar, [facility] [place] [facility] [address] [id number] [place] [address] Mar, [facility] [place] [facility] [address] [id number] [place] [address] Mar, [facility] [place] [facility] [address] [id number], [place] [address] Mar, [facility] [place] [facility] [address] [id number] [place] [address] Mar, [facility] [place] [facility] [address] [id number] [place] [address] Mar, [facility] [place] [facility] [address] [id number] [place] [address] Mar, [facility] [place] [facility] [address] [id number] [place] [address] Feb, [facility] [place] [facility] [address] [id number] [place] [address] Feb, [facility] [place] [facility] [address] [id number] [place] [address] Feb, [facility] [place] [facility] [address] [id number] [place] [address] Jan, [facility] [place] [facility] [address] [id number] [place] [address] Jan, [facility] [place] [facility] [address] [id number], [place] [address] Jan, [facility] [place] [facility] [address] [id number], [place] [address] Jan, [facility] [place] [facility] [address] [id number], [place] [address] Jan, [facility] [place] [facility] [address] [id number], [place] [address] Jan, [facility] [place] [facility] [address] [id number], [place] [address] Jan, [facility] [place] [facility] [address] [id number], [place] [address] Dec, [facility] [place] [facility] [address] [id number] [place] [address] 24 Dec, 2011 [facility] [place] [facility] [address] [id number] [place] [address] 10 Dec, 2011 [facility] [address] [id number] [place] [address] Nov, [facility] [place] [facility] [address] [id number] [place] [address] Nov, [facility] [address] [id number] [place] [address] Nov, [facility] [place] [facility] [address] [id number] [place] [address] Nov, [facility] [place] [facility] [address] [id number] [place] [address] Oct, [facility] [place] [facility] [address] [id number] [place] [address] Oct, [facility] [place] [facility] [address] [id number] [place] [address] Oct, [facility] [address] [id number] [place] [address] Sep, [facility] [place] [facility] [address] [id number] [place] [address] Sep, [facility] [address] [id number] [place] [address] Sep, [facility] [place] [facility] [address] [id number] [place] [address] Sep, [facility] [place] [facility] [address] [id number] [place] [address] Sep, [facility] [place] [facility] [address] [id number] [place] [address] Sep, [facility] [place] [facility] [address] [id number] [place] [address] August, [facility] [place] [facility] [address] [id number] [place] [address] Jul, [facility] [place] [facility] [address] [id number] [place] [address] 18 Jul, 2011 [facility] [place] [facility] [address] [id number] [place] [address] Jul, [facility] [place] [facility] [address] [id number] [place] [address] Jul, [facility] [place] [facility] [address] [id number] [place] [address] Jul, [facility] [place] [facility] [address] [id number] [place] [address] 29 Jun, 2011 [facility] [place] [facility] [address] [id number] [place] [address] 27 Jun, 2011 [facility] [place] [facility] [address] [facility] [id number] [place] [address] 15 Jun, 2011 [facility] [place] [facility] [address] [id number] [place] [address] Jun, [facility] [place] [facility] [address] [id number] [place] [address] Jun, [facility] [place] [facility] [address] [facility] [id number] [place] [address] May, [facility] [place] [facility] [address] [id number] [place] [address] May, [facility] [place] [facility] [address] [id number], [place] [address] May, [facility] [place] [facility] [address] [id number] [place] [address] May, [facility] [place] [facility] [address] [id number] [place] [address] May, [facility] [place] [facility] [address] [id number] [place] [address] May, [facility] [place] [facility] [address] [id number] [place] [address] 02 May, 2011 [facility] [address] [id number] [place] [address] 10 Apr, 2011 [facility] [place] [facility] [address] [id number] [place] [address] 29 Mar, 2011 [facility] [address] [id number] [place] [address] Mar, [facility] [place] [facility] [address] [id number] [place] [address] Mar, [facility] [address] [id number] [place] [address] Mar, [facility] [address] [id number] [place] [address] Mar, [facility] [address] [id number] [place] [address] 23 Feb, 2011 [facility] [address] [id number] [place] [address] 14 Feb, 2011 [facility] [place] [facility] [address] [id number] [place] [address] 14 Feb, 2011 [facility] [address] [id number] [place] [address] 14 Feb, 2011 [facility] [place] [facility] [address] [id number] [place] [address] Feb, [facility] [place] [facility] [address] [id number] [place] [address] Feb, [facility] [place] [facility] [address] [id number] [place] [address] 04 Feb, 2011 [facility] [place] [facility] [address] [id number] [place] [address] 10 Jan, 2011 [facility] [place] [facility] [address] [id number] [place] [address] Dec, [facility] [address] [id number] [place] [address] 11 Oct, 2010 [facility] [place] [facility] [address] [id number] [place] [address] Jun, [facility] [place] [facility] [address] [id number] [place] [address] 23 Mar, 2010 [facility] [place] [facility] [address] [id number] [place] [address] 23 Mar, 2010 [facility] [place] [facility] [address] [id number] [place] [address] 16 Mar, 2010 [facility] [place] [facility] [address] [id number] [place] [address] 16 Mar, 2010 [facility] [place] [facility] [address] [id number] [place] [address] 15 Mar, 2010 [facility] [place] [facility] [address] [id number] [place] [address] 10 Mar, 2010 [facility] [place] [facility] [address] [id number] [place] [address] 10 Mar, 2010 [facility] [place] [facility] [address] [id number], [place] [address] 05 Mar, 2010 [facility] [place] [facility] [address] [id number], [place] [address] Mar, [facility] [place] [facility] [address] [id number], [place] [address] Mar, [facility] [place] [facility] [address] [id number] [place] [address] Jan, [facility] [place] [facility] [address] [id number], [place] [address] Jan, [facility] [place] [facility] [address] [id number], [place] [address] Jan, [facility] [place] [facility] [address] [id number], [place] [address] Nov, [facility] [id number] [address] Oct, [facility] [id number], [place] [address] Mar, [facility] [id number], [place] [address] Mar, [facility] [id number], [place] [address] Mar, [facility] [id number] [place] [address] Mar, [facility] [id number] [place] [address] Dec, [facility] [id number] [place] [phone] August, [facility] [id number] [address] August, [facility] [id number] [address] Jul, [facility] [address] [address] Jan, [facility] [id number] [address] Jan, IMMUNIZATIONS No Known Immunizations SOCIAL HISTORY Never Assessed REASON FOR VISIT Requests return call PLAN OF CARE VITAL SIGNS MEDICATIONS Medication Instructions Dosage Frequency Start Date End Date Duration Status Levothyroxine Sodium 200 MCG Orally Once a day 1 tablet on an empty stomach in the morning 24h Feb, 30 day(s) Active RESULTS No Results PROCEDURES [...]
--- OUTSIDE RECORDS SUMMARY | 2018-09-22 03:27 | XMS REPORT ---
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 Diesel Automotive Technician Name Role Phone TAMI PALACIOS Unavailable PROBLEMS Type Condition ICD9-CM Code GQN32-FQ Code Onset Dates Condition Status SNOMED Code Problem Chronic gastritis without bleeding, unspecified gastritis type K29.50 Active 6528309 Problem Vitamin D deficiency E55.9 Active 56754409 Problem Osteoporosis M81.0 Active 38017506 Problem Unspecified abdominal pain R10.9 Active 047943298 Problem Fibromyalgia M79.7 Active 05783606 Problem Chronic pain syndrome G89.4 Active 678672582 Problem Trigger point with back pain M54.9 Active 648281777 Problem Chronic tension-type headache, not intractable G44.229 Active 108885066 Problem RUQ abdominal pain R10.11 Active 099026398 Problem Pancytopenia D61.818 Active 350746848 Problem Right sided sciatica M54.31 Active 02676900 Problem Chronic prescription opiate use Z79.891 Active 282128794 Problem Drug induced constipation K59.03 Active 423296959092173 Problem Leukopenia, unspecified type D72.819 Active 74852573 Problem Atrial fibrillation, unspecified type I48.91 Active 57861763 Problem Allergic rhinitis, unspecified allergic rhinitis type J30.9 Active 22464634 Problem Chronic obstructive pulmonary disease, unspecified COPD type J44.9 Active 54603330 Problem Hypothyroidism, unspecified hypothyroidism type E03.9 Active 63265030 Problem Other constipation K59.09 Active 057233987 Problem Porokeratosis Q82.8 Active 024208255 Problem 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 Active 219275067 Problem Allergy to intravenous contrast Z91.041 Active 514470514 Problem Vaginal atrophy N95.2 Active 739406217 Problem Major depression, recurrent F33.9 Active 62523107 Problem History of hepatitis C Z86.19 Active 44514289065672 Problem Hot flashes N95.1 Active 012191789 Problem Plantar fasciitis M72.2 Active 768012855 Problem Polyneuropathy associated with underlying disease G63 Active 412954182 Problem Primary insomnia F51.01 Active 2751691 Problem Low back pain M54.5 Active 942922583 ALLERGIES No Information ENCOUNTERS Encounter Location Date Diagnosis [place] [id number] [place] [address] Oct, [place] [address] [address] August, Somatic dysfunction of lumbar region M99.03 and Somatic dysfunction of pelvis region M99.05 [place] [address] [address] August, Chronic pain syndrome G89.4 [place] [address] [address] Jul, Trochanteric bursitis of left hip M70.62 and Trochanteric bursitis, right hip M70.61 [place] [id number] [place] [address] Jul, [place] [id number] [place] [address] Jul, Chronic pain syndrome G89.4 [place] [address] [address] Jul, Hypothyroidism, unspecified hypothyroidism type E03.9 [place] [id number] [place] [address] Jul, Hypothyroidism, unspecified hypothyroidism type E03.9 [place] [address] [address] Jul, Chronic tension-type headache, not intractable G44.229 ; Atrial fibrillation, unspecified type I48.91 ; Chronic pain syndrome G89.4 ; Hypothyroidism, unspecified hypothyroidism type E03.9 ; Pancytopenia D61.818 ; History of hepatitis C Z86.19 ; Vaginal atrophy N95.2 ; RUQ abdominal pain R10.11 ; Chronic prescription opiate use Z79.891 ; Osteoporosis M81.0 and Screening for breast cancer Z12.31 [facility] [id number] [place] [address] Jun, [facility] [id number] [place] [address] May, [facility] [id number] [place] [address] May, [facility] [id number] [place] [address] May, [facility] [id number] [place] [address] Apr, [facility] [id number] [place] [address] Apr, Hypothyroidism, unspecified hypothyroidism type E03.9 [facility] [id number] [place] [address] Apr, Hypothyroidism, unspecified hypothyroidism type E03.9 and Leukopenia, unspecified type D72.819 [facility] [id number] [place] [address] Mar, [facility] [id number] [place] [address] Mar, Leukopenia, unspecified type D72.819 [facility] [id number] [place] [address] Mar, Hypothyroidism, unspecified hypothyroidism type E03.9 and Low hemoglobin D64.9 [facility] [id number] [place] [address] Mar, Hypothyroidism, unspecified hypothyroidism type E03.9 [facility] [id number] [place] [address] Mar, Osteoporosis M81.0 ; Low hemoglobin D64.9 and Hypothyroidism, unspecified hypothyroidism type E03.9 [place] [address] [address] Mar, Hypothyroidism, unspecified hypothyroidism type E03.9 ; Bilirubin in urine R82.2 and Pancytopenia D61.818 [place] [address] [address] Feb, [facility] [place] [address] [address] Feb, Cough R05 and Bronchitis J40 [facility] [address] [address] 14 Feb, 2017 Other viral agents as the cause of diseases classified elsewhere B97.89 and Acute upper respiratory infection, unspecified J06.[address] [address] Feb, Fibromyalgia M79.7 ; Chronic pain syndrome G89.4 ; Hypothyroidism, unspecified hypothyroidism type E03.9 ; Primary insomnia F51.01 ; Osteoporosis M81.0 ; Vision abnormalities H53.9 ; Pancytopenia D61.818 ; BMI 28.0-28.9,adult Z68.28 and Encounter for immunization Z23 [address] [address] Feb, Neuroma D36.10 and Capsulitis of right foot M77.51 [place] [address] [address] Feb, [address] [address] Feb, Hypothyroidism, unspecified hypothyroidism type E03.9 [place] [address] [address] Jan, [place] [address] [address] Jan, Atrial fibrillation, unspecified type I48.91 [facility] [id number] [place] [address] Jan, [facility] [id number] [place] [address] Jan, Fibromyalgia M79.7 ; Atrial fibrillation, unspecified type I48.91 ; Pain of left hand M79.642 ; Pain in right hand M79.641 ; Chronic prescription opiate use Z79.891 ; Chronic pain syndrome G89.4 ; Elevated fasting glucose R73.01 and Hypothyroidism, unspecified hypothyroidism type E03.9 [facility] [id number] [place] [address] Jan, [facility] [id number] [place] [address] Dec, Trochanteric bursitis of both hips M70.61 [facility] [id number] [place] [address] Dec, [facility] [id number] [place] [address] Dec, [facility] [id number] [place] [address] Nov, [facility] [id number] [place] [address] Nov, Unilateral headache R51 [facility] [id number] [place] [address] Nov, [facility] [id number] [place] [address] Oct, Unilateral headache R51 ; 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2 [facility] [id number] [place] [address] Sep, Trochanteric bursitis of both hips M70.61 [facility] [id number] [place] [address] Sep, Hypothyroidism, unspecified hypothyroidism type E03.9 ; Dysuria R30.0 ; Chronic tension-type headache, not intractable G44.229 and Drug induced constipation K59.03 [facility] [id number] [place] [address] Sep, [facility] [id number] [place] [address] Sep, [facility] [address] [address] August, [facility] [id number] [place] [address] Jul, [facility] [id number] [place] [address] Jul, Trochanteric bursitis of right hip M70.61 [facility] [id number] [place] [address] Jul, Hypothyroidism, unspecified hypothyroidism type E03.9 [facility] [id number] [place] [address] Jul, Fibromyalgia M79.7 ; Chronic pain syndrome G89.4 ; Hypothyroidism, unspecified hypothyroidism type E03.9 and Other constipation K59.09 [facility] [id number] [place] [address] Jun, Swollen tonsil J35.1 and Strep throat J02.0 [facility] [id number] [place] [address] Jun, [facility] [id number] [place] [address] Jun, Acute maxillary sinusitis J01.00 [facility] [id number] [place] [address] Jun, Hypothyroidism, unspecified hypothyroidism type E03.9 [facility] [address] [address] Jun, Chronic pain syndrome G89.4 ; Fibromyalgia M79.7 ; Hypothyroidism, unspecified hypothyroidism type E03.9 and Chronic prescription opiate use Z79.891 [facility] [id number] [place] [address] May, [facility] [id number] [place] [address] Apr, Hypothyroidism, unspecified hypothyroidism type E03.9 [facility] [id number] [place] [address] Apr, [facility] [id number] [place] [address] Apr, Lipid screening Z13.220 and Hypothyroidism, unspecified hypothyroidism type E03.9 [facility] [id number] [place] [address] Apr, [facility] [address] [address] Mar, Trochanteric bursitis of both hips M70.61 [facility] [id number] [place] [address] Mar, [facility] [id number] [place] [address] Mar, Plantar fasciitis M72.2 and Porokeratosis Q82.8 [place] [address] [address] Feb, Lipid screening Z13.220 ; Vitamin D deficiency E55.9 and Hypothyroidism, unspecified hypothyroidism type E03.9 [place] [address] [address] Feb, Chronic pain syndrome G89.4 ; Hypothyroidism, unspecified hypothyroidism type E03.9 ; Pancytopenia D61.818 ; Vaginal atrophy N95.2 ; Chronic gastritis without bleeding, unspecified gastritis type K29.50 ; Vitamin D deficiency E55.9 ; Chronic prescription opiate use Z79.891 ; Adverse effect of other opioids, initial encounter T40.2X5A ; Drug induced constipation K59.03 ; Lipid screening Z13.220 and Encounter for immunization Z23 [place] [address] [address] Feb, [place] [address] [address] Feb, Ingrown toenail L60.0 [place] [address] [address] Jan, [place] [id number] [place] [address] Jan, Trochanteric bursitis of both hips M70.61 [place] [id number] [place] [address] Jan, [place] [address] [address] Jan, [place] [address] [address] Jan, [place] [id number] [place] [address] Jan, Right sided sciatica M54.31 [facility] [address] [address] 23 Dec, 2015 Onychomycosis B35.1 [facility] [id number] [place] [address] 22 Dec, 2015 [facility] [id number] [place] [address] Dec, [facility] [id number] [place] [address] Dec, [facility] [id number] [place] [address] Dec, Osteoarthritis of right hip, unspecified osteoarthritis type M16.11 and Bursitis of right hip M70.71 [place] [id number] [place] [address] Nov, [place] [id number] [place] [address] Nov, [place] [id number] [place] [address] Nov, [place] [id number] [place] [address] Nov, Hypothyroidism, unspecified hypothyroidism type E03.9 ; Vitamin D deficiency E55.9 and History of hepatitis C Z86.19 [place] [id number] [place] [address] Nov, Right upper quadrant pain R10.11 ; History of hepatitis C Z86.19 and Low back pain M54.5 [place] [id number] [place] [address] Oct, Trochanteric bursitis, right hip M70.61 [place] [id number] [place] [address] Oct, [facility] [id number] [place] [address] Oct, [place] [address] [address] Oct, Trochanteric bursitis of both hips M70.61 and Right sided sciatica M54.31 [place] [address] [address] Oct, Trochanteric bursitis of both hips M70.61 [place] [address] [address] 14 Oct, 2015 RUQ abdominal pain R10.11 [place] [address] [address] Oct, Sciatic leg pain M54.30 [place] [address] [address] Oct, RUQ abdominal pain R10.11 [place] [address] [address] 07 Oct, 2015 RUQ abdominal pain R10.11 ; History of hepatitis C Z86.19 and Trigger point with back pain M54.9 [place] [id number] [place] [address] Sep, [place] [id number] [place] [address] Sep, Right sided sciatica M54.31 [place] [address] [address] Sep, Hypothyroidism, unspecified hypothyroidism type E03.9 and Vitamin D deficiency E55.9 [place] [address] [address] Sep, Plantar fasciitis M72.2 and Porokeratosis Q82.8 [place] [address] [address] Sep, Hypothyroidism, unspecified hypothyroidism type E03.9 ; Chronic pain syndrome G89.4 ; Polyneuropathy associated with underlying disease G63 and Vitamin D deficiency E55.9 [place] [id number] [place] [address] August, [place] [id number] [place] [address] Jul, Plantar fasciitis M72.2 [place] [address] [address] Jul, Trochanteric bursitis, right hip M70.61 [place] [address] [address] Jul, Hypothyroidism, unspecified hypothyroidism type E03.9 [place] [address] [address] Jul, Hypothyroidism, unspecified hypothyroidism type E03.9 ; Chronic pain syndrome G89.4 and Polyneuropathy associated with underlying disease G63 [place] [id number] [place] [address] Jun, Trochanteric bursitis of both hips M70.61 [place] [id number] [place] [address] Jun, Vitamin D deficiency E55.9 ; Osteoporosis M81.0 ; Low back pain M54.5 and Plantar fasciitis M72.2 [place] [id number] [place] [address] May, Vitamin D deficiency E55.9 and Hypothyroidism, unspecified hypothyroidism type E03.9 [place] [id number] [place] [address] May, Acute maxillary sinusitis J01.00 [place] [id number] [place] [address] May, Osteoporosis M81.0 and Hypothyroidism, unspecified hypothyroidism type E03.9 [place] [id number] [place] [address] 16 May, 2015 Osteoporosis M81.0 [place] [address] [address] 15 May, 2015 [place] [id number] [place] [address] Apr, [place] [address] [address] Apr, Trochanteric bursitis of both hips M70.61 [place] [id number] [place] [address] Apr, Hypothyroidism, unspecified hypothyroidism type E03.9 [place] [id number] [place] [address] Apr, Chronic pain syndrome G89.4 ; Bilateral low back pain with sciatica, sciatica laterality unspecified M54.40 ; Pain in right hip M25.551 ; Pain in left hip M25.552 ; Chronic prescription opiate use Z79.899 ; Primary insomnia F51.01 and Hypothyroidism, unspecified hypothyroidism type E03.9 [place] [id number] [place] [address] 18 Mar, 2015 [place] [id number] [place] [address] Feb, [place] [id number] [place] [address] Feb, Chronic pain syndrome G89.4 and Major depression F32.9 [place] [id number] [place] [address] 16 Feb, 2015 Fatigue R53.83 [place] [id number] [place] [address] 13 Feb, 2015 History of fracture Z87.81 [place] [address] [address] Feb, Major depression, recurrent F33.9 and Generalized anxiety disorder F41.1 [facility] [id number] [place] [address] Feb, [facility] [id number] [place] [address] Jan, Hypothyroidism, unspecified hypothyroidism type E03.9 [facility] [id number] [place] [address] Jan, Abdominal pain R10.9 and Hypothyroidism, unspecified hypothyroidism type E03.9 [facility] [id number] [place] [address] Jan, Abdominal pain R10.9 [place] [id number] [place] [address] Jan, Hypothyroidism, unspecified hypothyroidism type E03.9 [facility] [id number] [place] [address] Jan, [facility] [id number] [place] [address] Jan, 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 and Hypothyroidism, unspecified hypothyroidism type E03.9 [place] [id number] [place] [address] Jan, 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 ; Abdominal pain R10.9 ; Dyspareunia N94.1 ; Encounter for immunization Z23 ; History of fracture Z87.81 ; Fatigue R53.83 ; Throat fullness R68.89 ; Bruises easily R23.8 ; Hot flashes N95.1 ; Depression F32.9 and Vaginal atrophy N95.2 [facility] [id number] [place] [address] Jan, Hypothyroidism, unspecified hypothyroidism type E03.9 [facility] [address] [place] [address] Jan, Unspecified abdominal pain R10.9 ; Chronic obstructive pulmonary disease, unspecified COPD type J44.9 ; Allergic rhinitis, unspecified allergic rhinitis type J30.9 ; Chronic pain syndrome G89.4 ; Hypothyroidism, unspecified hypothyroidism type E03.9 ; Chest pain, unspecified chest pain type R07.9 and Plantar fasciitis M72.2 [facility] [id number] [place] [address] Jan, Trochanteric bursitis of both hips M70.61 [facility] [id number] [place] [address] Dec, [facility] [id number] [place] [address] Nov, [facility] [id number] [place] [address] Nov, [facility] [id number] [place] [address] Nov, Constipation 564.00 [facility] [id number] [place] [address] Oct, Chronic pain 338.29 and Hypothyroidism 244.9 [facility] [id number] [place] [id number] Oct, [facility] [id number] [place] [phone] Sep, [facility] [id number] [place] [id number] Sep, [facility] [id number] [place] [phone] Sep, [facility] [id number] [place] [phone] Sep, [facility] [id number] [place] [phone] Sep, [facility] [id number] [address] Sep, [facility] [id number] [place] [id number] Sep, COPD exacerbation 491.21 ; Chronic pain 338.29 ; Hypothyroidism 244.9 and Pancytopenia 284.19 [facility] [id number] [place] [id number] August, [facility] [id number] [place] [phone] Jul, [facility] [id number] [place] [id number] Jul, [facility] [id number] [place] [phone] Jun, [facility] [id number] [place] [id number] Jun, [facility] [id number] [address] Jun, [facility] [id number] [place] [phone] Jun, [facility] [id number] [address] Jun, [facility] [id number] [place] [id number] May, [facility] [id number] [address] May, [facility] [id number] [address] May, [facility] [id number] [address] May, [facility] [id number] [address] May, 2014 [facility] [place] [facility] [address] [id number] [place] [address] May, 2014 [facility] [place] [facility] [address] [id number] [place] [address] May, 2014 [facility] [place] [facility] [address] [id number] [place] [address] May, 2014 [facility] [place] [facility] [address] [id number] [place] [address] May, 2014 [facility] [place] [facility] [address] [id number] [place] [address] May, 2014 [facility] [place] [facility] [address] [facility] [id number] [place] [address] May, 2014 [facility] [place] [facility] [address] [id number] [place] [address] May, 2014 [facility] [place] [facility] [address] [facility] [id number] [place] [address] May, [facility] [place] [facility] [address] [id number] [place] [address] Apr, [facility] [place] [facility] [address] [facility] [id number] [place] [address] Apr, [facility] [place] [facility] [address] [facility] [id number] [place] [address] Apr, [facility] [place] [facility] [address] [id number] [address] Apr, [facility] [place] [facility] [address] [id number] [place] [address] Apr, [facility] [place] [facility] [address] [facility] [id number] [place] [address] Apr, [facility] [place] [facility] [address] [facility] [id number] [place] [address] Apr, [facility] [place] [facility] [address] [id number] [place] [address] Mar, [facility] [place] [facility] [address] [id number] [place] [address] Mar, [facility] [place] [facility] [address] [id number] [place] [address] Mar, [facility] [place] [facility] [address] [id number] [place] [address] Mar, [facility] [place] [facility] [address] [id number] [place] [address] Mar, [facility] [place] [facility] [address] [id number] [place] [address] Mar, [facility] [place] [facility] [address] [id number] [place] [address] Feb, [facility] [place] [facility] [address] [id number] [place] [address] Feb, [facility] [place] [facility] [address] [id number] [place] [address] Feb, [facility] [place] [facility] [address] [id number] [address] Feb, [facility] [place] [facility] [address] [id number] [address] Feb, [facility] [place] [facility] [address] [id number] [place] [address] Feb, [facility] [place] [facility] [address] [id number] [place] [address] Jan, [facility] [place] [facility] [address] [id number] [place] [address] Jan, [facility] [place] [facility] [address] [id number] [place] [address] Jan, [facility] [place] [facility] [address] [id number] [place] [address] Jan, [facility] [place] [facility] [address] [id number] [place] [address] Jan, [facility] [place] [facility] [address] [id number] [place] [address] Jan, [facility] [place] [facility] [address] [id number] [place] [address] Jan, [facility] [place] [facility] [address] [id number] [place] [address] Jan, [facility] [place] [facility] [address] [id number] [place] [address] Dec, [facility] [place] [facility] [address] [id number] [place] [address] Dec, [facility] [place] [facility] [address] [id number] [place] [address] Dec, [facility] [place] [facility] [address] [id number] [place] [address] Dec, [facility] [place] [facility] [address] [id number] [place] [address] Dec, [facility] [place] [facility] [address] [facility] [id number] [place] [address] Dec, [facility] [place] [facility] [address] [id number] [place] [address] Dec, [facility] [place] [facility] [address] [id number] [address] Nov, [facility] [place] [facility] [address] [id number] [place] [address] Nov, [facility] [place] [facility] [address] [facility] [id number] [address] Oct, [facility] [place] [facility] [address] [facility] [id number] [place] [address] Oct, [facility] [place] [facility] [address] [id number] [place] [address] Oct, [facility] [place] [facility] [address] [id number] [place] [address] Oct, [facility] [place] [facility] [address] [id number] [place] [address] Sep, [facility] [place] [facility] [address] [id number] [place] [address] Sep, [facility] [place] [facility] [address] [id number] [place] [address] Sep, [facility] [place] [facility] [address] [id number] [place] [address] Sep, [facility] [place] [facility] [address] [id number] [place] [address] Sep, [facility] [place] [facility] [address] [id number] [place] [address] Sep, [facility] [place] [facility] [address] [id number] [place] [address] Sep, [facility] [place] [facility] [address] [id number] [place] [address] Sep, [facility] [place] [facility] [address] [id number] [place] [address] August, [facility] [place] [facility] [address] [id number] [place] [address] August, [facility] [place] [facility] [address] [id number] [place] [address] August, [facility] [place] [facility] [address] [id number] [place] [address] August, [facility] [place] [facility] [address] [id number] [place] [address] Jul, [facility] [place] [facility] [address] [id number] [place] [address] 30 Jul, 2013 [facility] [place] [facility] [address] [id number] [place] [address] 24 Jul, 2013 [facility] [place] [facility] [address] [id number] [place] [address] 24 Jul, 2013 [facility] [place] [facility] [address] [id number] [place] [address] 17 Jul, 2013 [facility] [place] [facility] [address] [id number] [place] [address] 16 Jul, 2013 [facility] [place] [facility] [address] [id number] [place] [address] 15 Jul, 2013 [facility] [place] [facility] [address] [id number] [place] [address] Jul, [facility] [place] [facility] [address] [id number] [place] [address] Jun, [facility] [place] [facility] [address] [id number] [place] [address] Jun, [facility] [place] [facility] [address] [id number] [place] [address] Jun, [facility] [place] [facility] [address] [id number] [place] [address] Jun, [facility] [place] [facility] [address] [id number] [place] [address] Jun, [facility] [place] [facility] [address] [id number] [address] Jun, [facility] [place] [facility] [address] [id number] [place] [address] Jun, [facility] [place] [facility] [address] [id number] [place] [address] Jun, [facility] [place] [facility] [address] [id number] [place] [address] May, [facility] [place] [facility] [address] [id number] [place] [address] 13 May, 2013 [facility] [address] [id number] [place] [address] Apr, [facility] [address] [id number] [place] [address] 17 Apr, 2013 [facility] [address] [id number] [place] [address] Mar, [facility] [address] [id number] [place] [address] Mar, [facility] [address] [id number] [place] [address] Mar, [facility] [address] [id number] [place] [address] Mar, [facility] [address] [id number] [place] [address] Mar, [facility] [address] [id number] [place] [address] Mar, [facility] [address] [id number] [place] [address] Mar, [facility] [address] [facility] [id number] [place] [address] Feb, [facility] [address] [id number] [place] [address] Feb, [facility] [address] [id number] [place] [address] Feb, [facility] [address] [id number] [place] [address] Feb, [facility] [address] [id number] [place] [address] Feb, [facility] [address] [id number] [place] [address] Feb, [facility] [place] [facility] [address] [id number] [place] [address] 26 Dec, 2012 [facility] [address] [id number] [place] [address] 18 Dec, 2012 [facility] [address] [id number] [place] [address] Dec, [facility] [place] [facility] [address] [id number] [place] [address] Dec, [facility] [address] [id number] [place] [address] Dec, [facility] [address] [id number] [place] [address] Nov, [facility] [address] [id number] [place] [address] Nov, [facility] [address] [id number] [place] [address] Oct, [facility] [address] [id number] [place] [address] August, [facility] [address] [id number] [place] [address] August, [facility] [address] [id number] [place] [address] August, [facility] [address] [id number] [address] Jul, [facility] [place] [facility] [address] [id number] [place] [address] Jul, [facility] [place] [facility] [address] [id number] [place] [address] Jul, [facility] [place] [facility] [address] [id number] [place] [address] Jun, [facility] [place] [facility] [address] [id number] [place] [address] 26 Jun, 2012 [facility] [address] [id number] [place] [address] 21 Jun, 2012 [facility] [place] [facility] [address] [id number] [place] [address] 20 Jun, 2012 [facility] [address] [id number] [place] [address] 18 Jun, 2012 [facility] [place] [facility] [address] [id number] [place] [address] 15 Jun, 2012 [facility] [address] [id number] [place] [address] Jun, [facility] [address] [id number] [place] [address] 18 May, 2012 [facility] [address] [facility] [id number] [place] [address] May, [facility] [place] [facility] [address] [id number] [place] [address] 06 May, 2012 [facility] [address] [id number] [place] [address] 05 May, 2012 [facility] [address] [facility] [id number] [place] [address] Apr, [facility] [address] [facility] [id number] [place] [address] Apr, [facility] [place] [facility] [address] [id number] [place] [address] Apr, [facility] [place] [facility] [address] [id number] [place] [address] Mar, [facility] [place] [facility] [address] [id number] [place] [address] Mar, [facility] [address] [facility] [id number] [place] [address] Mar, [facility] [place] [facility] [address] [id number] [place] [address] Mar, [facility] [place] [facility] [address] [id number] [place] [address] Mar, [facility] [place] [facility] [address] [id number] [place] [address] Mar, [facility] [place] [facility] [address] [id number] [place] [address] Mar, [facility] [place] [facility] [address] [id number] [place] [address] Mar, [facility] [place] [facility] [address] [id number] [place] [address] Feb, [facility] [place] [facility] [address] [id number] [place] [address] Feb, [facility] [place] [facility] [address] [id number] [place] [address] Feb, [facility] [place] [facility] [address] [id number] [place] [address] Jan, [facility] [place] [facility] [address] [id number] [place] [address] Jan, [facility] [place] [facility] [address] [id number] [place] [address] Jan, [facility] [place] [facility] [address] [id number] [place] [address] Jan, [facility] [place] [facility] [address] [id number] [place] [address] Jan, [facility] [place] [facility] [address] [id number] [place] [address] Jan, [facility] [place] [facility] [address] [id number] [place] [address] Jan, [facility] [place] [facility] [address] [id number] [place] [address] 27 Dec, 2011 [facility] [place] [facility] [address] [id number] [place] [address] 24 Dec, 2011 [facility] [place] [facility] [address] [id number] [place] [address] 10 Dec, 2011 [facility] [place] [facility] [address] [id number] [place] [address] 30 Nov, 2011 [facility] [place] [facility] [address] [id number] [place] [address] Nov, [facility] [place] [facility] [address] [id number] [place] [address] Nov, [facility] [place] [facility] [address] [id number] [place] [address] Nov, [facility] [place] [facility] [address] [id number] [place] [address] Oct, [facility] [place] [facility] [address] [id number] [place] [address] Oct, [facility] [place] [facility] [address] [id number] [place] [address] Oct, [facility] [place] [facility] [address] [id number] [place] [address] Sep, [facility] [place] [facility] [address] [id number] [place] [address] 16 Sep, 2011 [facility] [place] [facility] [address] [id number] [place] [address] Sep, [facility] [place] [facility] [address] [id number] [place] [address] Sep, [facility] [place] [facility] [address] [id number] [place] [address] 07 Sep, 2011 [facility] [place] [facility] [address] [id number] [place] [address] Sep, [facility] [place] [facility] [address] [id number] [place] [address] August, [facility] [address] [id number] [place] [address] Jul, [facility] [place] [facility] [address] [id number] [place] [address] 18 Jul, 2011 [facility] [address] [id number] [place] [address] Jul, [facility] [address] [id number] [place] [address] Jul, [facility] [address] [id number] [place] [address] Jul, [facility] [address] [id number] [place] [address] 29 Jun, 2011 [facility] [address] [id number] [place] [address] Jun, [facility] [address] [id number] [place] [address] 15 Jun, 2011 [facility] [address] [id number] [place] [address] Jun, [facility] [address] [facility] [id number] [place] [address] Jun, [facility] [place] [facility] [address] [id number] [place] [address] May, [facility] [address] [id number] [place] [address] May, [facility] [place] [facility] [address] [id number] [place] [address] May, [facility] [place] [facility] [address] [id number] [place] [address] 06 May, 2011 [facility] [place] [facility] [address] [id number] [place] [address] May, [facility] [place] [facility] [address] [id number] [place] [address] May, [facility] [place] [facility] [address] [id number] [place] [address] May, [facility] [place] [facility] [address] [id number] [place] [address] Apr, [facility] [place] [facility] [address] [id number] [place] [address] 29 Mar, 2011 [facility] [place] [facility] [address] [id number] [place] [address] Mar, [facility] [place] [facility] [address] [id number] [place] [address] Mar, [facility] [place] [facility] [address] [id number] [place] [address] Mar, [facility] [place] [facility] [address] [id number] [place] [address] Mar, [facility] [place] [facility] [address] [id number] [place] [address] Feb, [facility] [place] [facility] [address] [id number] [place] [address] Feb, [facility] [place] [facility] [address] [id number] [place] [address] Feb, [facility] [place] [facility] [address] [id number] [address] 14 Feb, 2011 [facility] [place] [facility] [address] [id number] [place] [address] Feb, [facility] [place] [facility] [address] [id number] [place] [address] Feb, [facility] [place] [facility] [address] [id number] [place] [address] Feb, [facility] [place] [facility] [address] [id number] [place] [address] 10 Jan, 2011 [facility] [address] [id number] [place] [address] 12 Dec, 2010 [facility] [place] [facility] [address] [id number] [place] [address] 11 Oct, 2010 [facility] [address] [id number] [place] [address] 10 Jun, 2010 [facility] [place] [facility] [address] [id number] [place] [address] 23 Mar, 2010 [facility] [address] [id number] [place] [address] 23 Mar, 2010 [facility] [address] [id number] [place] [address] 16 Mar, 2010 [facility] [address] [id number] [place] [address] 16 Mar, 2010 [facility] [address] [id number] [place] [address] 15 Mar, 2010 [facility] [place] [facility] [address] [id number] [place] [address] 10 Mar, 2010 [facility] [address] [id number] [place] [address] 10 Mar, 2010 [facility] [place] [facility] [address] [id number] [place] [address] 05 Mar, 2010 [facility] [place] [facility] [address] [id number] [place] [address] 03 Mar, 2010 [facility] [place] [facility] [address] [id number] [place] [address] 02 Mar, 2010 [facility] [place] [facility] [address] [id number] [place] [address] 22 Jan, 2010 [facility] [place] [facility] [address] [id number] [place] [address] Jan, [facility] [address] [facility] [id number] [place] [address] Jan, [facility] [id number] [address] Nov, [facility] [address] [facility] [id number] [place] [address] Oct, [facility] [id number] [address] Mar, [facility] [address] [facility] [id number] [place] [address] Mar, [facility] [id number] [address] Mar, [facility] [id number] [address] Mar, [facility] [id number] [address] Dec, [facility] [id number] [address] August, [facility] [id number] [address] August, [facility] [id number] [address] Jul, [facility] [id number] [address] Jan, [facility] [address] [id number] [address] Jan, IMMUNIZATIONS No Known Immunizations SOCIAL HISTORY Never Assessed REASON FOR VISIT Controlled Medication Refill PLAN OF CARE VITAL SIGNS MEDICATIONS Medication Instructions Dosage Frequency Start Date End Date Duration Status Hydrocodone-Acetaminophen 10-325 MG Orally 2 times a day 1 tablet as needed 12h 28 Mar, 2017 28 days Active RESULTS No Results [...]
--- OUTSIDE RECORDS SUMMARY | 2018-09-22 03:29 | XMS REPORT ---
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 Name Role Phone DANICA LERMAY Unavailable PROBLEMS Type Condition ICD9-CM Code SYF60-EP Code Onset Dates Condition Status SNOMED Code Problem Chronic gastritis without bleeding, unspecified gastritis type K29.50 Active 8999119 Problem Vitamin D deficiency E55.9 Active 15977935 Problem Osteoporosis M81.0 Active 06651922 Problem Unspecified abdominal pain R10.9 Active 613658547 Problem Fibromyalgia M79.7 Active 60536392 Problem Chronic pain syndrome G89.4 Active 867646317 Problem Trigger point with back pain M54.9 Active 733292539 Problem Chronic tension-type headache, not intractable G44.229 Active 501943925 Problem RUQ abdominal pain R10.11 Active 838940663 Problem Pancytopenia D61.818 Active 927554331 Problem Right sided sciatica M54.31 Active 27749745 Problem Chronic prescription opiate use Z79.891 Active 524813832 Problem Drug induced constipation K59.03 Active 469152082706223 Problem Leukopenia, unspecified type D72.819 Active 69279442 Problem Atrial fibrillation, unspecified type I48.91 Active 30399318 Problem Allergic rhinitis, unspecified allergic rhinitis type J30.9 Active 60457656 Problem Chronic obstructive pulmonary disease, unspecified COPD type J44.9 Active 20467028 Problem Hypothyroidism, unspecified hypothyroidism type E03.9 Active 72546899 Problem Other constipation K59.09 Active 656257487 Problem Porokeratosis Q82.8 Active 865718737 Problem 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 Active 013487654 Problem Allergy to intravenous contrast Z91.041 Active 480309338 Problem Vaginal atrophy N95.2 Active 399347236 Problem Major depression, recurrent F33.9 Active 03404002 Problem History of hepatitis C Z86.19 Active 82353981047315 Problem Hot flashes N95.1 Active 648735471 Problem Plantar fasciitis M72.2 Active 461406437 Problem Polyneuropathy associated with underlying disease G63 Active 624724791 Problem Primary insomnia F51.01 Active 8909209 Problem Low back pain M54.5 Active 594874182 ALLERGIES No Information ENCOUNTERS Encounter Location Date Diagnosis [place] [id number] [place] [address] August, Somatic dysfunction of lumbar region M99.03 and Somatic dysfunction of pelvis region M99.05 [place] [id number] [place] [address] August, Chronic pain syndrome G89.4 [place] [id number] [place] [address] Jul, Trochanteric bursitis of left hip M70.62 and Trochanteric bursitis, right hip M70.61 [place] [id number] [place] [address] Jul, [place] [id number] [place] [address] Jul, Chronic pain syndrome G89.4 [place] [id number] [place] [address] Jul, Hypothyroidism, unspecified hypothyroidism type E03.9 [place] [id number] [place] [address] Jul, Hypothyroidism, unspecified hypothyroidism type E03.9 [place] [id number] [place] [address] Jul, Chronic tension-type headache, not intractable G44.229 ; Atrial fibrillation, unspecified type I48.91 ; Chronic pain syndrome G89.4 ; Hypothyroidism, unspecified hypothyroidism type E03.9 ; Pancytopenia D61.818 ; History of hepatitis C Z86.19 ; Vaginal atrophy N95.2 ; RUQ abdominal pain R10.11 ; Chronic prescription opiate use Z79.891 ; Osteoporosis M81.0 and Screening for breast cancer Z12.31 [facility] [place] [address] [address] Jun, [facility] [place] [address] [address] May, [facility] [place] [id number] [address] May, [facility] [place] [id number] [place] [address] May, [facility] [place] [id number] [place] [address] Apr, [facility] [place] [id number] [place] [address] Apr, Hypothyroidism, unspecified hypothyroidism type E03.9 [facility] [place] [id number] [place] [address] Apr, Hypothyroidism, unspecified hypothyroidism type E03.9 and Leukopenia, unspecified type D72.819 [facility] [place] [id number] [place] [address] Mar, [facility] [place] [address] [address] Mar, Leukopenia, unspecified type D72.819 [facility] [place] [address] [address] Mar, Hypothyroidism, unspecified hypothyroidism type E03.9 and Low hemoglobin D64.9 [facility] [place] [address] [address] Mar, Hypothyroidism, unspecified hypothyroidism type E03.9 [facility] [place] [address] [address] Mar, Osteoporosis M81.0 ; Low hemoglobin D64.9 and Hypothyroidism, unspecified hypothyroidism type E03.9 [facility] [place] [address] [address] Mar, Hypothyroidism, unspecified hypothyroidism type E03.9 ; Bilirubin in urine R82.2 and Pancytopenia D61.818 [place] [address] [address] Feb, [facility] [address] [address] Feb, Cough R05 and Bronchitis J40 [facility] [address] [address] 14 Feb, 2017 Other viral agents as the cause of diseases classified elsewhere B97.89 and Acute upper respiratory infection, unspecified J06.[address] [address] Feb, Fibromyalgia M79.7 ; Chronic pain syndrome G89.4 ; Hypothyroidism, unspecified hypothyroidism type E03.9 ; Primary insomnia F51.01 ; Osteoporosis M81.0 ; Vision abnormalities H53.9 ; Pancytopenia D61.818 ; BMI 28.0-28.9,adult Z68.28 and Encounter for immunization Z23 [address] [address] Feb, Neuroma D36.10 and Capsulitis of right foot M77.[address] [address] Feb, [address] [address] Feb, Hypothyroidism, unspecified hypothyroidism type E03.[address] [address] Jan, [address] [address] Jan, Atrial fibrillation, unspecified type I48.[address] [address] Jan, [facility] [place] [id number] [place] [address] Jan, Fibromyalgia M79.7 ; Atrial fibrillation, unspecified type I48.91 ; Pain of left hand M79.642 ; Pain in right hand M79.641 ; Chronic prescription opiate use Z79.891 ; Chronic pain syndrome G89.4 ; Elevated fasting glucose R73.01 and Hypothyroidism, unspecified hypothyroidism type E03.9 [facility] [place] [id number] [place] [address] Jan, [place] [address] [address] Dec, Trochanteric bursitis of both hips M70.61 [place] [id number] [place] [address] Dec, [facility] [place] [address] [address] Dec, [facility] [place] [id number] [place] [address] Nov, [facility] [place] [id number] [place] [address] Nov, Unilateral headache R51 [facility] [place] [id number] [place] [address] Nov, [facility] [place] [id number] [place] [address] Oct, Unilateral headache R51 ; 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 and Allergy to intravenous contrast Z91.041 [facility] [place] [address] [address] Oct, [facility] [place] [id number] [place] [address] Oct, [facility] [place] [address] [address] Sep, Hypothyroidism, unspecified hypothyroidism type E03.9 [facility] [place] [id number] [place] [address] Sep, Hypothyroidism, unspecified hypothyroidism type E03.9 and Bilirubin in urine R82.2 [facility] [place] [address] [address] Sep, Trochanteric bursitis of both hips M70.61 [facility] [place] [address] [address] Sep, Hypothyroidism, unspecified hypothyroidism type E03.9 ; Dysuria R30.0 ; Chronic tension-type headache, not intractable G44.229 and Drug induced constipation K59.03 [place] [address] [address] Sep, [place] [address] [address] Sep, [facility] [place] [address] [address] August, [facility] [place] [address] [address] Jul, [place] [address] [address] Jul, Trochanteric bursitis of right hip M70.61 [facility] [place] [address] [address] Jul, Hypothyroidism, unspecified hypothyroidism type E03.9 [place] [address] [address] Jul, Fibromyalgia M79.7 ; Chronic pain syndrome G89.4 ; Hypothyroidism, unspecified hypothyroidism type E03.9 and Other constipation K59.09 [facility] [id number] [place] [address] Jun, Swollen tonsil J35.1 and Strep throat J02.0 [facility] [place] [id number] [place] [address] Jun, [facility] [place] [address] [address] Jun, Acute maxillary sinusitis J01.00 [facility] [place] [id number] [place] [address] Jun, Hypothyroidism, unspecified hypothyroidism type E03.9 [facility] [place] [id number] [place] [address] Jun, Chronic pain syndrome G89.4 ; Fibromyalgia M79.7 ; Hypothyroidism, unspecified hypothyroidism type E03.9 and Chronic prescription opiate use Z79.891 [facility] [place] [id number] [place] [address] May, [facility] [place] [address] [address] Apr, Hypothyroidism, unspecified hypothyroidism type E03.9 [facility] [place] [id number] [place] [address] Apr, [facility] [place] [id number] [place] [address] Apr, Lipid screening Z13.220 and Hypothyroidism, unspecified hypothyroidism type E03.9 [facility] [place] [id number] [place] [address] Apr, [facility] [place] [id number] [place] [address] Mar, Trochanteric bursitis of both hips M70.61 [facility] [place] [id number] [place] [address] Mar, [facility] [place] [id number] [place] [address] Mar, Plantar fasciitis M72.2 and Porokeratosis Q82.8 [place] [id number] [place] [address] Feb, Lipid screening Z13.220 ; Vitamin D deficiency E55.9 and Hypothyroidism, unspecified hypothyroidism type E03.9 [facility] [place] [id number] [place] [address] 16 Feb, 2016 Chronic pain syndrome G89.4 ; Hypothyroidism, unspecified hypothyroidism type E03.9 ; Pancytopenia D61.818 ; Vaginal atrophy N95.2 ; Chronic gastritis without bleeding, unspecified gastritis type K29.50 ; Vitamin D deficiency E55.9 ; Chronic prescription opiate use Z79.891 ; Adverse effect of other opioids, initial encounter T40.2X5A ; Drug induced constipation K59.03 ; Lipid screening Z13.220 and Encounter for immunization Z23 [place] [address] [address] Feb, [place] [address] [address] Feb, Ingrown toenail L60.0 [place] [address] [address] Jan, [place] [address] [address] Jan, Trochanteric bursitis of both hips M70.61 [place] [address] [address] Jan, [place] [address] [address] Jan, [place] [address] [address] Jan, [place] [id number] [place] [address] Jan, Right sided sciatica M54.31 [place] [address] [address] Dec, Onychomycosis B35.1 [facility] [place] [id number] [place] [address] Dec, [facility] [place] [id number] [place] [address] Dec, [facility] [place] [id number] [place] [address] Dec, [facility] [place] [id number] [place] [address] Dec, Osteoarthritis of right hip, unspecified osteoarthritis type M16.11 and Bursitis of right hip M70.71 [place] [id number] [place] [address] Nov, [place] [id number] [place] [address] Nov, [facility] [place] [id number] [place] [address] Nov, [facility] [place] [id number] [place] [address] Nov, Hypothyroidism, unspecified hypothyroidism type E03.9 ; Vitamin D deficiency E55.9 and History of hepatitis C Z86.19 [place] [id number] [place] [address] Nov, Right upper quadrant pain R10.11 ; History of hepatitis C Z86.19 and Low back pain M54.5 [facility] [place] [id number] [place] [address] Oct, Trochanteric bursitis, right hip M70.61 [facility] [place] [id number] [place] [address] Oct, [facility] [place] [id number] [place] [address] Oct, [facility] [place] [address] [place] [address] 21 Oct, 2015 Trochanteric bursitis of both hips M70.61 and Right sided sciatica M54.31 [place] [id number] [place] [address] 20 Oct, 2015 Trochanteric bursitis of both hips M70.61 [place] [id number] [place] [address] 14 Oct, 2015 RUQ abdominal pain R10.11 [place] [id number] [place] [address] 13 Oct, 2015 Sciatic leg pain M54.30 [place] [id number] [place] [address] Oct, RUQ abdominal pain R10.11 [place] [address] [address] 07 Oct, 2015 RUQ abdominal pain R10.11 ; History of hepatitis C Z86.19 and Trigger point with back pain M54.9 [place] [id number] [place] [address] Sep, [place] [id number] [place] [address] 09 Sep, 2015 Right sided sciatica M54.31 [place] [id number] [place] [address] Sep, Hypothyroidism, unspecified hypothyroidism type E03.9 and Vitamin D deficiency E55.9 [place] [id number] [place] [address] Sep, Plantar fasciitis M72.2 and Porokeratosis Q82.8 [place] [id number] [place] [address] Sep, Hypothyroidism, unspecified hypothyroidism type E03.9 ; Chronic pain syndrome G89.4 ; Polyneuropathy associated with underlying disease G63 and Vitamin D deficiency E55.9 [place] [id number] [place] [address] August, [place] [address] [address] Jul, Plantar fasciitis M72.2 [place] [address] [address] Jul, Trochanteric bursitis, right hip M70.61 [place] [id number] [place] [address] Jul, Hypothyroidism, unspecified hypothyroidism type E03.9 [place] [address] [address] Jul, Hypothyroidism, unspecified hypothyroidism type E03.9 ; Chronic pain syndrome G89.4 and Polyneuropathy associated with underlying disease G63 [place] [address] [address] Jun, Trochanteric bursitis of both hips M70.61 [place] [id number] [place] [address] Jun, Vitamin D deficiency E55.9 ; Osteoporosis M81.0 ; Low back pain M54.5 and Plantar fasciitis M72.2 [place] [id number] [place] [address] May, Vitamin D deficiency E55.9 and Hypothyroidism, unspecified hypothyroidism type E03.9 [place] [id number] [place] [address] May, Acute maxillary sinusitis J01.00 [place] [address] [address] 18 May, 2015 Osteoporosis M81.0 and Hypothyroidism, unspecified hypothyroidism type E03.9 [place] [id number] [place] [address] 16 Feb, 2016 Osteoporosis M81.0 [place] [id number] [place] [address] 15 May, 2015 [place] [id number] [place] [address] Apr, [place] [id number] [place] [address] 07 Apr, 2015 Trochanteric bursitis of both hips M70.61 [place] [id number] [place] [address] 07 Apr, 2015 Hypothyroidism, unspecified hypothyroidism type E03.9 [place] [id number] [place] [address] 05 Apr, 2015 Chronic pain syndrome G89.4 ; Bilateral low back pain with sciatica, sciatica laterality unspecified M54.40 ; Pain in right hip M25.551 ; Pain in left hip M25.552 ; Chronic prescription opiate use Z79.899 ; Primary insomnia F51.01 and Hypothyroidism, unspecified hypothyroidism type E03.9 [place] [id number] [place] [address] 18 Mar, 2015 [place] [id number] [place] [address] 19 Feb, 2015 [place] [id number] [place] [address] 16 Feb, 2015 Chronic pain syndrome G89.4 and Major depression F32.9 [place] [id number] [place] [address] 16 Feb, 2015 Fatigue R53.83 [place] [id number] [place] [address] 13 Feb, 2015 History of fracture Z87.81 [place] [id number] [place] [address] 12 Feb, 2015 Major depression, recurrent F33.9 and Generalized anxiety disorder F41.1 [place] [address] [address] Feb, [facility] [place] [id number] [place] [address] Jan, Hypothyroidism, unspecified hypothyroidism type E03.9 [place] [id number] [place] [address] Jan, Abdominal pain R10.9 and Hypothyroidism, unspecified hypothyroidism type E03.9 [place] [id number] [place] [address] Jan, Abdominal pain R10.9 [place] [id number] [place] [address] Jan, Hypothyroidism, unspecified hypothyroidism type E03.9 [place] [id number] [place] [address] Jan, [place] [id number] [place] [address] Jan, 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 and Hypothyroidism, unspecified hypothyroidism type E03.9 [place] [id number] [place] [phone] Jan, 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 ; Abdominal pain R10.9 ; Dyspareunia N94.1 ; Encounter for immunization Z23 ; History of fracture Z87.81 ; Fatigue R53.83 ; Throat fullness R68.89 ; Bruises easily R23.8 ; Hot flashes N95.1 ; Depression F32.9 and Vaginal atrophy N95.2 [place] [id number] [place] [phone] Jan, Hypothyroidism, unspecified hypothyroidism type E03.9 [place] [id number] [address] Jan, Unspecified abdominal pain R10.9 ; Chronic obstructive pulmonary disease, unspecified COPD type J44.9 ; Allergic rhinitis, unspecified allergic rhinitis type J30.9 ; Chronic pain syndrome G89.4 ; Hypothyroidism, unspecified hypothyroidism type E03.9 ; Chest pain, unspecified chest pain type R07.9 and Plantar fasciitis M72.2 [facility] [place] [id number] [place] [phone] Jan, Trochanteric bursitis of both hips M70.61 [facility] [place] [id number] [place] [phone] Dec, [facility] [place] [id number] [place] [phone] Nov, [facility] [place] [id number] [place] [phone] Nov, [facility] [place] [facility] [id number] [place] [address] Nov, Constipation 564.00 [facility] [place] [id number] [place] [address] Oct, Chronic pain 338.29 and Hypothyroidism 244.9 [facility] [place] [id number] [place] [address] Oct, [facility] [place] [id number] [place] [address] Sep, [facility] [place] [id number] [place] [address] Sep, [facility] [place] [id number] [place] [address] Sep, [facility] [place] [id number] [place] [address] Sep, [facility] [place] [id number] [place] [address] Sep, [facility] [place] [id number] [place] [address] Sep, [facility] [place] [address] [address] Sep, COPD exacerbation 491.21 ; Chronic pain 338.29 ; Hypothyroidism 244.9 and Pancytopenia 284.19 [facility] [address] [address] August, [facility] [id number] [place] [address] Jul, [facility] [place] [address] [address] Jul, [facility] [place] [id number] [place] [phone] Jun, [facility] [place] [id number] [address] Jun, [facility] [place] [id number] [place] [phone] Jun, [facility] [place] [id number] [address] Jun, [facility] [place] [address] [address] Jun, [facility] [place] [address] [address] May, [facility] [place] [address] [address] May, [facility] [id number] [address] May, [facility] [id number] [address] May, [facility] [id number] [address] May, [facility] [id number] [place] [address], [place] [address] May, 2014 [facility] [place] [facility] [address] [id number] [place] [address] May, 2014 [facility] [place] [facility] [address] [id number] [place] [address] May, 2014 [facility] [place] [facility] [address] [id number] [place] [address] May, 2014 [facility] [place] [facility] [address] [id number] [place] [address] May, 2014 [facility] [place] [facility] [address] [id number] [place] [address] May, 2014 [facility] [place] [facility] [address] [facility] [id number] [place] [address] May, 2014 [facility] [place] [facility] [id number] [address] May, [facility] [place] [facility] [address] [id number] [place] [address] Apr, [facility] [place] [facility] [address] [facility] [id number] [place] [address] Apr, [facility] [place] [facility] [address] [facility] [id number] [place] [address] Apr, [facility] [place] [facility] [address] [facility] [id number] [place] [address] Apr, [facility] [place] [facility] [address] [id number] [place] [address] Apr, [facility] [place] [facility] [address] [facility] [id number] [place] [address] Apr, [facility] [place] [facility] [address] [facility] [id number] [place] [address] Apr, [facility] [place] [facility] [address] [facility] [id number] [place] [address] Mar, [facility] [place] [facility] [address] [id number] [place] [address] Mar, [facility] [place] [facility] [address] [id number] [place] [address] Mar, [facility] [place] [facility] [address] [id number] [place] [address] Mar, [facility] [place] [facility] [address] [id number] [place] [address] Mar, [facility] [place] [facility] [address] [id number] [place] [address] Mar, [facility] [place] [facility] [address] [id number] [place] [address] Feb, [facility] [place] [facility] [address] [id number] [place] [address] Feb, [facility] [place] [facility] [address] [id number] [place] [address] Feb, [facility] [place] [facility] [address] [id number] [place] [address] Feb, [facility] [place] [facility] [address] [id number] [place] [address] Feb, [facility] [place] [facility] [address] [id number] [address] Feb, [facility] [place] [facility] [address] [id number] [address] Jan, [facility] [place] [facility] [address] [id number] [place] [address] Jan, [facility] [place] [facility] [address] [id number] [place] [address] Jan, [facility] [place] [facility] [address] [id number] [place] [address] Jan, [facility] [place] [facility] [address] [id number] [place] [address] Jan, [facility] [place] [facility] [address] [id number] [place] [address] Jan, [facility] [place] [facility] [address] [id number] [place] [address] Jan, [facility] [place] [facility] [address] [id number] [place] [address] Jan, [facility] [place] [facility] [address] [id number] [place] [address] Dec, [facility] [place] [facility] [address] [id number] [place] [address] Dec, [facility] [place] [facility] [address] [id number] [place] [address] Dec, [facility] [place] [facility] [address] [id number] [place] [address] Dec, [facility] [place] [facility] [address] [id number] [place] [address] Dec, [facility] [place] [facility] [address] [id number] [place] [address] Dec, [facility] [place] [facility] [address] [id number] [place] [address] Dec, [facility] [place] [facility] [address] [id number] [place] [address] Nov, [facility] [place] [facility] [address] [id number] [place] [address] Nov, [facility] [place] [facility] [address] [id number] [place] [address] Oct, [facility] [place] [facility] [address] [id number] [place] [address] Oct, [facility] [place] [facility] [address] [id number] [place] [address] Oct, [facility] [place] [facility] [address] [id number] [place] [address] Oct, [facility] [place] [facility] [address] [id number] [place] [address] Sep, [facility] [place] [facility] [address] [id number] [place] [address] Sep, [facility] [place] [facility] [address] [id number] [place] [address] Sep, [facility] [place] [facility] [address] [id number] [place] [address] Sep, [facility] [place] [facility] [address] [id number] [place] [address] Sep, [facility] [place] [facility] [address] [id number] [place] [address] Sep, [facility] [place] [facility] [address] [id number] [place] [address] Sep, [facility] [place] [facility] [address] [id number] [place] [address] Sep, [facility] [place] [facility] [address] [id number] [place] [address] August, [facility] [place] [facility] [address] [id number] [place] [address] August, [facility] [place] [facility] [address] [id number] [place] [address] August, [facility] [place] [facility] [address] [id number] [place] [address] August, [facility] [place] [facility] [address] [id number] [place] [address] Jul, [facility] [place] [facility] [address] [id number] [place] [address] Jul, [facility] [place] [facility] [address] [id number] [place] [address] 24 Jul, 2013 [facility] [place] [facility] [address] [id number] [place] [address] 24 Jul, 2013 [facility] [place] [facility] [address] [id number] [place] [address] 17 Jul, 2013 [facility] [place] [facility] [address] [id number] [place] [address] 16 Jul, 2013 [facility] [place] [facility] [address] [id number] [place] [address] 15 Jul, 2013 [facility] [place] [facility] [address] [id number] [place] [address] Jul, [facility] [place] [facility] [address] [id number] [place] [address] Jun, [facility] [place] [facility] [address] [id number] [place] [address] Jun, [facility] [place] [facility] [address] [id number] [place] [address] Jun, [facility] [place] [facility] [address] [id number] [place] [address] Jun, [facility] [place] [facility] [address] [id number] [place] [address] Jun, [facility] [place] [facility] [address] [id number] [place] [address] Jun, [facility] [place] [facility] [address] [id number] [place] [address] Jun, [facility] [place] [facility] [address] [id number] [place] [address] Jun, [facility] [place] [facility] [address] [id number] [place] [address] May, [facility] [place] [facility] [address] [id number] [place] [address] May, [facility] [place] [facility] [address] [id number] [place] [address] 17 Apr, 2013 [facility] [address] [id number] [place] [address] Apr, [facility] [address] [id number] [place] [address] Mar, [facility] [address] [id number] [place] [address] Mar, [facility] [address] [id number] [place] [address] Mar, [facility] [address] [id number] [place] [address] Mar, [facility] [address] [id number] [place] [address] Mar, [facility] [address] [id number] [place] [address] Mar, [facility] [address] [id number] [place] [address] Mar, [facility] [address] [id number] [place] [address] Feb, [facility] [address] [id number] [place] [address] Feb, [facility] [address] [id number] [place] [address] Feb, [facility] [address] [id number] [place] [address] Feb, [facility] [place] [facility] [address] [id number] [place] [address] Feb, [facility] [address] [id number] [place] [address] Feb, [facility] [address] [id number] [place] [address] Dec, [facility] [address] [id number] [place] [address] 18 Dec, 2012 [facility] [place] [facility] [address] [id number] [place] [address] Dec, [facility] [place] [facility] [address] [id number] [place] [address] Dec, [facility] [place] [facility] [address] [id number] [place] [address] Dec, [facility] [address] [id number] [place] [address] Nov, [facility] [place] [facility] [address] [id number] [place] [address] Nov, [facility] [place] [facility] [address] [id number] [place] [address] Oct, [facility] [place] [facility] [address] [id number] [place] [address] August, [facility] [place] [facility] [address] [id number] [place] [address] August, [facility] [place] [facility] [address] [id number] [place] [address] August, [facility] [place] [facility] [address] [id number] [place] [address] Jul, [facility] [place] [facility] [address] [id number] [address] Jul, [facility] [place] [facility] [address] [id number] [place] [address] Jul, [facility] [place] [facility] [address] [id number] [place] [address] Jun, [facility] [place] [facility] [address] [id number] [place] [address] Jun, [facility] [place] [facility] [address] [id number] [address] 21 Jun, 2012 [facility] [address] [id number] [place] [address] 20 Jun, 2012 [facility] [place] [facility] [address] [id number] [place] [address] 18 Jun, 2012 [facility] [address] [id number] [place] [address] 15 Jun, 2012 [facility] [place] [facility] [address] [id number] [place] [address] 12 Jun, 2012 [facility] [address] [id number] [place] [address] 18 May, 2012 [facility] [place] [facility] [address] [id number] [place] [address] May, [facility] [address] [id number] [place] [address] 06 May, 2012 [facility] [place] [facility] [address] [id number] [place] [address] 05 May, 2012 [facility] [address] [id number] [place] [address] Apr, [facility] [address] [facility] [id number] [place] [address] Apr, [facility] [address] [id number] [place] [address] Apr, [facility] [place] [facility] [address] [id number] [place] [address] Mar, [facility] [place] [facility] [address] [id number] [place] [address] Mar, [facility] [place] [facility] [address] [id number] [place] [address] Mar, [facility] [address] [id number] [place] [address] Mar, [facility] [place] [facility] [address] [id number] [place] [address] Mar, [facility] [place] [facility] [address] [id number] [place] [address] Mar, [facility] [place] [facility] [address] [id number] [place] [address] Mar, [facility] [place] [facility] [address] [id number] [place] [address], [place] [address] Mar, [facility] [place] [facility] [address] [id number] [place] [address] Feb, [facility] [place] [facility] [address] [id number] [place] [address] Feb, [facility] [place] [facility] [address] [id number] [place] [address] Feb, [facility] [place] [facility] [address] [id number] [place] [address] Jan, [facility] [place] [facility] [address] [id number] [place] [address] Jan, [facility] [place] [facility] [address] [id number] [place] [address] Jan, [facility] [place] [facility] [address] [id number] [place] [address] Jan, [facility] [place] [facility] [address] [id number] [address] Jan, [facility] [place] [facility] [address] [id number] [place] [address] Jan, [facility] [place] [facility] [address] [id number] [place] [address] Jan, [facility] [place] [facility] [address] [id number] [place] [address] Dec, [facility] [place] [facility] [address] [id number] [place] [address] 24 Dec, 2011 [facility] [place] [facility] [address] [id number] [place] [address] Dec, [facility] [place] [facility] [address] [id number] [place] [address] Nov, [facility] [place] [facility] [address] [id number] [place] [address] Nov, [facility] [place] [facility] [address] [id number] [place] [address] Nov, [facility] [place] [facility] [address] [id number] [place] [address] Nov, [facility] [place] [facility] [address] [id number] [place] [address] Oct, [facility] [place] [facility] [address] [id number] [place] [address] Oct, [facility] [place] [facility] [address] [id number] [place] [address] Oct, [facility] [place] [facility] [address] [id number] [place] [address] Sep, [facility] [place] [facility] [address] [id number] [place] [address] Sep, [facility] [place] [facility] [address] [id number] [place] [address] Sep, [facility] [place] [facility] [address] [id number] [place] [address] Sep, [facility] [place] [facility] [address] [id number] [place] [address] Sep, [facility] [place] [facility] [address] [id number] [place] [address] Sep, [facility] [place] [facility] [address] [id number] [place] [address] August, [facility] [place] [facility] [address] [id number] [place] [address] 19 Jul, 2011 [facility] [address] [id number] [place] [address] 18 Jul, 2011 [facility] [place] [facility] [address] [id number] [place] [address] Jul, [facility] [address] [id number] [place] [address] 05 Jul, 2011 [facility] [place] [facility] [address] [id number] [place] [address] 04 Jul, 2011 [facility] [address] [id number] [place] [address] 29 Jun, 2011 [facility] [address] [id number] [place] [address] 27 Jun, 2011 [facility] [address] [id number] [place] [address] 15 Jun, 2011 [facility] [address] [id number] [place] [address] 15 Jun, 2011 [facility] [address] [id number] [place] [address] Jun, [facility] [address] [id number] [place] [address] May, [facility] [place] [facility] [address] [id number] [place] [address] May, [facility] [address] [id number] [place] [address] May, [facility] [place] [facility] [address] [id number] [place] [address] 06 May, 2011 [facility] [place] [facility] [address] [id number] [place] [address] May, [facility] [place] [facility] [address] [id number] [place] [address] 02 May, 2011 [facility] [place] [facility] [address] [id number] [place] [address] May, [facility] [place] [facility] [address] [id number] [place] [address] Apr, [facility] [place] [facility] [address] [id number] [place] [address] 29 Mar, 2011 [facility] [place] [facility] [address] [id number] [place] [address] Mar, [facility] [place] [facility] [address] [id number] [place] [address] Mar, [facility] [place] [facility] [address] [id number] [place] [address] Mar, [facility] [place] [facility] [address] [id number] [place] [address] Mar, [facility] [place] [facility] [address] [id number] [place] [address] 23 Feb, 2011 [facility] [place] [facility] [address] [id number] [address] Feb, [facility] [place] [facility] [address] [id number] [place] [address] 14 Feb, 2011 [facility] [place] [facility] [address] [id number] [address] 14 Feb, 2011 [facility] [place] [facility] [address] [id number] [place] [address] 07 Feb, 2011 [facility] [place] [facility] [address] [id number] [place] [address] Feb, [facility] [place] [facility] [address] [id number] [place] [address] 04 Feb, 2011 [facility] [place] [facility] [address] [facility] [id number] [place] [address] 10 Jan, 2011 [facility] [place] [facility] [address] [id number] [place] [address] 12 Dec, 2010 [facility] [address] [id number] [place] [address] 11 Oct, 2010 [facility] [address] [id number] [place] [address] 10 Jun, 2010 [facility] [address] [id number] [place] [address] 23 Mar, 2010 [facility] [address] [id number] [place] [address] 23 Mar, 2010 [facility] [address] [id number] [place] [address] 16 Mar, 2010 [facility] [address] [id number] [place] [address] 16 Mar, 2010 [facility] [address] [id number] [place] [address] 15 Mar, 2010 [facility] [address] [id number] [place] [address] 10 Mar, 2010 [facility] [address] [id number] [place] [address] 10 Mar, 2010 [facility] [address] [facility] [id number] [place] [address] 05 Mar, 2010 [facility] [address] [id number] [place] [address] 03 Mar, 2010 [facility] [address] [id number] [place] [address] Mar, [facility] [address] [id number] [place] [address] Jan[facility] [address] [id number] [place] [address] Jan, [facility] [address] [id number] [place] [address] Jan, [facility] [place] [address] [id number] [address] Nov, [facility] [place] [id number] [address] Oct, [facility] [place] [address] [id number] [address] Mar, [facility] [place] [id number] [address] Mar, [facility] [place] [id number] [address] Mar, [facility] [place] [id number] [address] Mar, [facility] [place] [id number] [address] Dec, [facility] [place] [id number] [address] August, [facility] [place] [id number] [address] August, [facility] [place] [id number] [address] Jul, [facility] [place] [address] [id number] [address] Jan, [facility], [place], [facility] [address] [id number] [address] Jan, IMMUNIZATIONS No Known Immunizations SOCIAL HISTORY Never Assessed REASON FOR VISIT Controlled Medication Refill PLAN OF CARE VITAL SIGNS MEDICATIONS Medication Instructions Dosage Frequency Start Date End Date Duration Status Hydrocodone-Acetaminophen 10-325 MG Orally 2 times a day 1 tablet as needed 12h 30 Feb, 2017 28 days Active RESULTS No Results [...]
[2018-09-22 03:30] LABS: ALANINE AMINOTRANSFERASE 10 U/L (0-55); ALBUMIN 4.1 GM/DL (3.2-4.5); ALKALINE PHOSPHATASE 79 U/L (40-136); AMYLASE 37 U/L (25-125); BILIRUBIN,TOTAL 0.7 MG/DL (0.1-1.0); BUN/CREATININE RATIO 23; CALCIUM 9.7 MG/DL (8.5-10.1); CARBON DIOXIDE 19 MMOL/L (21-32); CHLORIDE 109 MMOL/L (98-107); GFR ESTIMATED > 60; GLUCOSE 96 MG/DL (70-105); LIPASE 20 U/L (8-78); POTASSIUM 3.6 MMOL/L (3.6-5.0); SODIUM 141 MMOL/L (135-145); TOTAL PROTEIN 7.2 GM/DL (6.4-8.2)
--- OUTSIDE RECORDS SUMMARY | 2018-09-22 03:30 | XMS REPORT ---
Author Author ARIADNA OJEDA [facility] Address [address] [place] [address] Care Team Providers Care Test Architect Name Role Phone ARIADNA OJEDA Unavailable PROBLEMS Type Condition ICD9-CM Code AFT12-MH Code Onset Dates Condition Status SNOMED Code Problem Chronic gastritis without bleeding, unspecified gastritis type K29.50 Active 4204301 Problem Vitamin D deficiency E55.9 Active 23860437 Problem Osteoporosis M81.0 Active 15004575 Problem Unspecified abdominal pain R10.9 Active 628641351 Problem Fibromyalgia M79.7 Active 28772213 Problem Chronic pain syndrome G89.4 Active 628805904 Problem Trigger point with back pain M54.9 Active 702359516 Problem Chronic tension-type headache, not intractable G44.229 Active 382517453 Problem RUQ abdominal pain R10.11 Active 054932950 Problem Pancytopenia D61.818 Active 933634318 Problem Right sided sciatica M54.31 Active 52471015 Problem Chronic prescription opiate use Z79.891 Active 854874668 Problem Drug induced constipation K59.03 Active 434872887982479 Problem Leukopenia, unspecified type D72.819 Active 20324565 Problem Atrial fibrillation, unspecified type I48.91 Active 35788318 Problem Allergic rhinitis, unspecified allergic rhinitis type J30.9 Active 60427187 Problem Chronic obstructive pulmonary disease, unspecified COPD type J44.9 Active 42332120 Problem Hypothyroidism, unspecified hypothyroidism type E03.9 Active 67212034 Problem Other constipation K59.09 Active 949179696 Problem Porokeratosis Q82.8 Active 413891384 Problem 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 Active 095135623 Problem Allergy to intravenous contrast Z91.041 Active 567349318 Problem Vaginal atrophy N95.2 Active 053921612 Problem Major depression, recurrent F33.9 Active 47284531 Problem History of hepatitis C Z86.19 Active 32873228840399 Problem Hot flashes N95.1 Active 575669813 Problem Plantar fasciitis M72.2 Active 705340703 Problem Polyneuropathy associated with underlying disease G63 Active 635521926 Problem Primary insomnia F51.01 Active 5020774 Problem Low back pain M54.5 Active 942424102 ALLERGIES No Information ENCOUNTERS Encounter Location Date Diagnosis [facility] [id number] [address] Jul, [facility] [id number] [place] [phone] Jul, [facility] [id number] [place] [phone] Jun, [facility] [id number] [place] [phone] May, [facility] [id number] [place] [address] May, [facility] [id number] [place] [phone] May, [facility] [id number] [place] [address] Apr, [facility] [id number] [place] [address] Apr, Hypothyroidism, unspecified hypothyroidism type E03.9 [facility] [id number] [place] [address] Apr, Hypothyroidism, unspecified hypothyroidism type E03.9 and Leukopenia, unspecified type D72.819 [facility] [address] [address] Mar, [facility] [id number] [place] [address] Mar, Leukopenia, unspecified type D72.819 [facility] [id number] [place] [address] Mar, Hypothyroidism, unspecified hypothyroidism type E03.9 and Low hemoglobin D64.9 [address] [id number] [place] [address] Mar, Hypothyroidism, unspecified hypothyroidism type E03.9 [place] [id number] [place] [address] Mar, Osteoporosis M81.0 ; Low hemoglobin D64.9 and Hypothyroidism, unspecified hypothyroidism type E03.[address] [address] Mar, Hypothyroidism, unspecified hypothyroidism type E03.9 ; Bilirubin in urine R82.2 and Pancytopenia D61.[address] [address] Feb, [facility] [address] [address] Feb, Cough R05 and Bronchitis J40 [facility] [address] [address] 14 Feb, 2017 Other viral agents as the cause of diseases classified elsewhere B97.89 and Acute upper respiratory infection, unspecified J06.9 [id number] [place] [address] Feb, Fibromyalgia M79.7 ; Chronic pain syndrome G89.4 ; Hypothyroidism, unspecified hypothyroidism type E03.9 ; Primary insomnia F51.01 ; Osteoporosis M81.0 ; Vision abnormalities H53.9 ; Pancytopenia D61.818 ; BMI 28.0-28.9,adult Z68.28 and Encounter for immunization Z23 [address] [address] Feb, Neuroma D36.10 and Capsulitis of right foot M77.51 [id number] [place] [address] Feb, [address] [place] [address] Feb, Hypothyroidism, unspecified hypothyroidism type E03.9 [facility] [id number] [place] [address] Jan, [facility] [id number] [place] [address] Jan, Atrial fibrillation, unspecified type I48.91 [facility] [id number] [place] [address] Jan, [facility] [id number] [place] [address] Jan, Fibromyalgia M79.7 ; Atrial fibrillation, unspecified type I48.91 ; Pain of left hand M79.642 ; Pain in right hand M79.641 ; Chronic prescription opiate use Z79.891 ; Chronic pain syndrome G89.4 ; Elevated fasting glucose R73.01 and Hypothyroidism, unspecified hypothyroidism type E03.9 [facility] [id number] [place] [address] Jan, [facility] [id number] [place] [address] Dec, Trochanteric bursitis of both hips M70.61 [facility] [id number] [place] [address] Dec, [facility] [id number] [place] [address] Dec, [facility] [id number] [place] [address] Nov, [facility] [id number] [place] [phone] Nov, Unilateral headache R51 [facility] [address] [place] [address] Nov, [facility] [address] [place] [address] [address] Oct, Unilateral headache R51 ; 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 and Allergy to intravenous contrast Z91.041 [facility] [address] [address] Oct, [facility] [address] [address] Oct, [facility] [address] [address] Sep, Hypothyroidism, unspecified hypothyroidism type E03.9 [address] [address] Sep, Hypothyroidism, unspecified hypothyroidism type E03.9 and Bilirubin in urine R82.2 [address] [address] Sep, Trochanteric bursitis of both hips M70.61 [address] [address] Sep, Hypothyroidism, unspecified hypothyroidism type E03.9 ; Dysuria R30.0 ; Chronic tension-type headache, not intractable G44.229 and Drug induced constipation K59.03 [place] [id number] [place] [address] Sep, [facility] [id number] [place] [address] Sep, [facility] [id number] [place] [address] August, [facility] [address] [address] Jul, [facility] [address] [address] Jul, Trochanteric bursitis of right hip M70.61 [address] [address] Jul, Hypothyroidism, unspecified hypothyroidism type E03.9 [facility] [id number] [place] [address] Jul, Fibromyalgia M79.7 ; Chronic pain syndrome G89.4 ; Hypothyroidism, unspecified hypothyroidism type E03.9 and Other constipation K59.09 [facility] [id number] [place] [address] Jun, Swollen tonsil J35.1 and Strep throat J02.0 [facility] [address] [address] Jun, [facility] [address] [address] Jun, Acute maxillary sinusitis J01.00 [address] [id number] [place] [address] Jun, Hypothyroidism, unspecified hypothyroidism type E03.9 [facility] [id number] [place] [address] Jun, Chronic pain syndrome G89.4 ; Fibromyalgia M79.7 ; Hypothyroidism, unspecified hypothyroidism type E03.9 and Chronic prescription opiate use Z79.891 [facility] [id number] [place] [address] May, [facility] [id number] [place] [address] Apr, Hypothyroidism, unspecified hypothyroidism type E03.9 [facility] [id number] [place] [address] Apr, [facility] [address] [address] Apr, Lipid screening Z13.220 and Hypothyroidism, unspecified hypothyroidism type E03.9 [facility] [id number] [place] [address] Apr, [facility] [id number] [place] [address] Mar, Trochanteric bursitis of both hips M70.61 [facility] [id number] [place] [address] Mar, [facility] [id number] [place] [address] Mar, Plantar fasciitis M72.2 and Porokeratosis Q82.8 [address] [id number] [place] [address] Feb, Lipid screening Z13.220 ; Vitamin D deficiency E55.9 and Hypothyroidism, unspecified hypothyroidism type E03.9 [address] [id number] [place] [address] Feb, Chronic pain syndrome G89.4 ; Hypothyroidism, unspecified hypothyroidism type E03.9 ; Pancytopenia D61.818 ; Vaginal atrophy N95.2 ; Chronic gastritis without bleeding, unspecified gastritis type K29.50 ; Vitamin D deficiency E55.9 ; Chronic prescription opiate use Z79.891 ; Adverse effect of other opioids, initial encounter T40.2X5A ; Drug induced constipation K59.03 ; Lipid screening Z13.220 and Encounter for immunization Z23 [facility] [id number] [place] [address] Feb, [address] [id number] [place] [address] Feb, Ingrown toenail L60.0 [facility] [id number] [place] [address] Jan, [facility] [address] [address] Jan, Trochanteric bursitis of both hips M70.61 [facility] [id number] [place] [address] Jan, [facility] [address] [address] Jan, [facility] [id number] [place] [address] Jan, [facility] [id number] [place] [address] Jan, Right sided sciatica M54.31 [facility] [id number] [place] [address] 23 Dec, 2015 Onychomycosis B35.1 [facility] [id number] [place] [address] 22 Dec, 2015 [facility] [id number] [place] [address] Dec, [address] [id number] [place] [phone] 09 Dec, 2015 [facility] [id number] [place] [address] Dec, Osteoarthritis of right hip, unspecified osteoarthritis type M16.11 and Bursitis of right hip M70.71 [facility] [address] [address] Nov, [facility] [address] [address] Nov, [facility] [address] [address] Nov, [facility] [address] [place] [address] Nov, Hypothyroidism, unspecified hypothyroidism type E03.9 ; Vitamin D deficiency E55.9 and History of hepatitis C Z86.19 [facility] [address] [address] 10 Nov, 2015 Right upper quadrant pain R10.11 ; History of hepatitis C Z86.19 and Low back pain M54.5 [facility] [id number] [place] [address] Oct, Trochanteric bursitis, right hip M70.61 [facility] [id number] [place] [address] Oct, [facility] [id number] [place] [address] Oct, [facility] [id number] [place] [address] Oct, Trochanteric bursitis of both hips M70.61 and Right sided sciatica M54.31 [address] [id number] [place] [address] Oct, Trochanteric bursitis of both hips M70.61 [facility] [id number] [place] [address] Oct, RUQ abdominal pain R10.11 [address] [place] [id number] [place] [address] Oct, Sciatic leg pain M54.30 [address] [id number] [place] [address] Oct, RUQ abdominal pain R10.11 [address] [id number] [place] [address] Oct, RUQ abdominal pain R10.11 ; History of hepatitis C Z86.19 and Trigger point with back pain M54.9 [facility] [id number] [place] [address] Sep, [facility] [id number] [place] [address] Sep, Right sided sciatica M54.31 [facility] [id number] [place] [address] Sep, Hypothyroidism, unspecified hypothyroidism type E03.9 and Vitamin D deficiency E55.9 [place] [id number] [place] [address] Sep, Plantar fasciitis M72.2 and Porokeratosis Q82.8 [facility] [id number] [place] [address] Sep, Hypothyroidism, unspecified hypothyroidism type E03.9 ; Chronic pain syndrome G89.4 ; Vitamin D deficiency E55.9 and Polyneuropathy associated with underlying disease G63 [address] [id number] [place] [address] August, [address] [address] [address] Jul, Plantar fasciitis M72.2 [address] [id number] [place] [address] Jul, Trochanteric bursitis, right hip M70.61 [address] [id number] [place] [address] Jul, Hypothyroidism, unspecified hypothyroidism type E03.9 [facility] [id number] [place] [address] Jul, Hypothyroidism, unspecified hypothyroidism type E03.9 ; Chronic pain syndrome G89.4 and Polyneuropathy associated with underlying disease G63 [address] [id number] [place] [address] Jun, Trochanteric bursitis of both hips M70.61 [facility] [id number] [place] [address] Jun, Vitamin D deficiency E55.9 ; Osteoporosis M81.0 ; Low back pain M54.5 and Plantar fasciitis M72.2 [place] [id number] [place] [address] May, Vitamin D deficiency E55.9 and Hypothyroidism, unspecified hypothyroidism type E03.9 [facility] [address] [place] [address] 23 May, 2015 Acute maxillary sinusitis J01.00 [facility] [id number] [place] [address] 18 May, 2015 Osteoporosis M81.0 and Hypothyroidism, unspecified hypothyroidism type E03.9 [facility] [id number] [place] [address] May, Osteoporosis M81.0 [facility] [id number] [place] [address] May, [facility] [id number] [place] [address] Apr, [place] [id number] [place] [address] Apr, Trochanteric bursitis of both hips M70.61 [facility] [id number] [place] [address] Apr, Hypothyroidism, unspecified hypothyroidism type E03.9 [place] [id number] [place] [address] Apr, Chronic pain syndrome G89.4 ; Bilateral low back pain with sciatica, sciatica laterality unspecified M54.40 ; Pain in right hip M25.551 ; Pain in left hip M25.552 ; Chronic prescription opiate use Z79.899 ; Primary insomnia F51.01 and Hypothyroidism, unspecified hypothyroidism type E03.9 [facility] [address] [address] Mar, [place] [id number] [place] [address] Feb, [facility] [id number] [place] [address] Feb, Chronic pain syndrome G89.4 and Major depression F32.9 [place] [id number] [place] [address] Feb, Fatigue R53.83 [place] [address] [address] Feb, History of fracture Z87.81 [place] [address] [address] Feb, Major depression, recurrent F33.9 and Generalized anxiety disorder F41.1 [place] [address] [address] Feb, [place] [address] [address] Jan, Hypothyroidism, unspecified hypothyroidism type E03.9 [facility] [id number] [place] [address] Jan, Abdominal pain R10.9 and Hypothyroidism, unspecified hypothyroidism type E03.9 [facility] [id number] [place] [address] Jan, Abdominal pain R10.9 [facility] [id number] [place] [address] Jan, Hypothyroidism, unspecified hypothyroidism type E03.9 [facility] [id number] [place] [address] Jan, [place] [id number] [place] [address] Jan, 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 and Hypothyroidism, unspecified hypothyroidism type E03.9 [place] [id number] [place] [address] Jan, 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 ; Abdominal pain R10.9 ; Dyspareunia N94.1 ; Encounter for immunization Z23 ; History of fracture Z87.81 ; Fatigue R53.83 ; Throat fullness R68.89 ; Bruises easily R23.8 ; Hot flashes N95.1 ; Depression F32.9 and Vaginal atrophy N95.2 [place] [id number] [place] [address] Jan, Hypothyroidism, unspecified hypothyroidism type E03.9 [place] [address] [address] Jan, Unspecified abdominal pain R10.9 ; Chronic obstructive pulmonary disease, unspecified COPD type J44.9 ; Allergic rhinitis, unspecified allergic rhinitis type J30.9 ; Chronic pain syndrome G89.4 ; Hypothyroidism, unspecified hypothyroidism type E03.9 ; Chest pain, unspecified chest pain type R07.9 and Plantar fasciitis M72.2 [place] [id number] [place] [address] Jan, Trochanteric bursitis of both hips M70.61 [place] [id number] [place] [address] Dec, [place] [address] [address] Nov, [place] [id number] [place] [address] Nov, [place] [id number] [place] [address] Nov, Constipation 564.00 [facility] [id number] [place] [address] Oct, Chronic pain 338.29 and Hypothyroidism 244.9 [place] [address] [address] Oct, [facility] [id number] [place] [phone] Sep, [facility] [address] [address] Sep, [facility] [address] [address] Sep, [facility] [id number] [place] [phone] Sep, [facility] [id number] [address] Sep, [facility] [id number] [place] [phone] Sep, [facility] [id number] [place] [id number] Sep, COPD exacerbation 491.21 ; Chronic pain 338.29 ; Hypothyroidism 244.9 and Pancytopenia 284.19 [facility] [id number] [address] August, [facility] [id number] [place] [id number] Jul, [facility] [id number] [address] Jul, [facility] [id number] [place] [phone] Jun, [facility] [id number] [address] Jun, [facility] [id number] [address] Jun, [facility] [id number] [address] Jun, [facility] [id number] [place] [phone] Jun, [facility] [address] [id number] [address] May, [facility] [id number] [place] [address] May, 2014 [facility] [place] [facility] [address] [id number] [place] [address] May, 2014 [facility] [place] [facility] [address] [id number] [place] [address] May, 2014 [facility] [place] [facility] [address] [facility] [id number] [place] [address] May, 2014 [facility] [place] [facility] [address] [id number] [place] [address] May, 2014 [facility] [place] [facility] [address] [id number] [place] [address] May, 2014 [facility] [place] [facility] [address] [facility] [id number] [place] [address] May, 2014 [facility] [place] [facility] [address] [facility] [id number] [place] [address] May, 2014 [facility] [place] [facility] [address] [facility] [id number] [place] [address] May, [facility] [place] [facility] [address] [facility] [id number] [place] [address] May, [facility] [place] [facility] [address] [facility] [id number] [place] [address] May, [facility] [place] [facility] [address] [facility] [id number] [place] [address] May, [facility] [place] [facility] [address] [facility] [id number] [address] Apr, [facility] [place] [facility] [address] [id number] [place] [address] Apr, [facility] [place] [facility] [address] [facility] [id number] [place] [address] Apr, [facility] [place] [facility] [address] [facility] [id number] [address] Apr, [facility] [place] [facility] [address] [id number] [place] [address] Apr, [facility] [place] [facility] [address] [id number] [place] [address] Apr, [facility] [place] [facility] [address] [id number] [place] [address] Apr, [facility] [place] [facility] [address] [id number] [place] [address] Mar, [facility] [place] [facility] [address] [id number] [place] [address] Mar, [facility] [place] [facility] [address] [id number] [place] [address] Mar, [facility] [place] [facility] [address] [id number] [place] [address] Mar, [facility] [place] [facility] [address] [id number] [place] [address] Mar, [facility] [place] [facility] [address] [id number] [place] [address] Mar, [facility] [place] [facility] [address] [id number] [place] [address] Feb, [facility] [place] [facility] [address] [id number] [place] [address] Feb, [facility] [place] [facility] [address] [id number] [place] [address] Feb, [facility] [place] [facility] [address] [id number] [place] [address] Feb, [facility] [place] [facility] [address] [id number] [place] [address] Feb, [facility] [place] [facility] [address] [id number] [place] [address] Feb, [facility] [place] [facility] [address] [id number] [place] [address] Jan, [facility] [place] [facility] [address] [id number] [place] [address] Jan, [facility] [place] [facility] [address] [id number] [place] [address] Jan, [facility] [place] [facility] [address] [id number] [place] [address] Jan, [facility] [place] [facility] [address] [id number] [place] [address] Jan, [facility] [place] [facility] [address] [id number] [place] [address] Jan, [facility] [place] [facility] [address] [id number] [place] [address] Jan, [facility] [place] [facility] [address] [id number] [place] [address] Jan, [facility] [place] [facility] [address] [id number] [place] [address] Dec, [facility] [place] [facility] [address] [id number] [place] [address] 25 Dec, 2013 [facility] [place] [facility] [address] [id number] [place] [address] 23 Dec, 2013 [facility] [place] [facility] [address] [id number] [place] [address] 23 Dec, 2013 [facility] [place] [facility] [address] [id number] [address] 13 Dec, 2013 [facility] [place] [facility] [address] [id number] [place] [address] 10 Dec, 2013 [facility] [place] [facility] [address] [id number] [place] [address] 10 Dec, 2013 [facility] [place] [facility] [address] [id number] [place] [address] Nov, [facility] [place] [facility] [address] [id number] [place] [address] Nov, [facility] [place] [facility] [address] [id number] [place] [address] Oct, [facility] [place] [facility] [address] [id number] [place] [address] Oct, [facility] [place] [facility] [address] [id number] [place] [address] Oct, [facility] [place] [facility] [address] [id number] [place] [address] Oct, [facility] [place] [facility] [address] [id number] [place] [address] Sep, [facility] [place] [facility] [address] [id number] [place] [address] Sep, [facility] [place] [facility] [address] [id number] [place] [address] Sep, [facility] [place] [facility] [address] [id number] [place] [address] Sep, [facility] [place] [facility] [address] [id number] [place] [address] Sep, [facility] [place] [facility] [address] [id number] [place] [address] Sep, [facility] [place] [facility] [address] [id number] [place] [address] Sep, [facility] [place] [facility] [address] [id number] [place] [address] Sep, [facility] [place] [facility] [address] [id number] [place] [address] August, [facility] [place] [facility] [address] [id number] [place] [address] August, [facility] [place] [facility] [address] [id number] [place] [address] August, [facility] [place] [facility] [address] [id number] [place] [address] August, [facility] [place] [facility] [address] [id number] [place] [address] Jul, [facility] [place] [facility] [address] [id number] [place] [address] Jul, [facility] [place] [facility] [address] [id number] [place] [address] Jul, [facility] [place] [facility] [address] [id number] [place] [address] 24 Jul, 2013 [facility] [place] [facility] [address] [id number] [place] [address] Jul, [facility] [place] [facility] [address] [id number] [place] [address] 16 Jul, 2013 [facility] [place] [facility] [address] [id number] [place] [address] Jul, [facility] [place] [facility] [address] [id number] [place] [address] Jul, [facility] [place] [facility] [address] [id number] [place] [address] Jun, [facility] [place] [facility] [address] [id number] [place] [address] Jun, [facility] [place] [facility] [address] [id number] [address] Jun, [facility] [place] [facility] [address] [id number] [place] [address] Jun, [facility] [place] [facility] [address] [id number] [place] [address] Jun, [facility] [place] [facility] [address] [id number] [place] [address] Jun, [facility] [place] [facility] [address] [id number] [place] [address] Jun, [facility] [address] [id number] [place] [address] Jun, [facility] [address] [id number] [place] [address] May, [facility] [address] [id number] [place] [address] May, [facility] [address] [id number] [place] [address] Apr, [facility] [address] [id number] [place] [address] Apr, [facility] [address] [id number] [place] [address] Mar, [facility] [address] [id number] [place] [address] Mar, [facility] [address] [id number] [place] [address] Mar, [facility] [address] [id number] [place] [address] Mar, [facility] [address] [id number] [place] [address] Mar, [facility] [place] [facility] [address] [id number] [place] [address] Mar, [facility] [address] [id number] [place] [address] Mar, [facility] [place] [facility] [address] [id number] [place] [address] Feb, [facility] [place] [facility] [address] [id number] [place] [address] Feb, [facility] [place] [facility] [address] [id number] [place] [address] Feb, [facility] [address] [id number] [place] [address] Feb, [facility] [place] [facility] [address] [id number] [place] [address] Feb, [facility] [place] [facility] [address] [id number] [place] [address] Feb, [facility] [place] [facility] [address] [id number] [place] [address] 26 Dec, 2012 [facility] [place] [facility] [address] [id number] [place] [address] 18 Dec, 2012 [facility] [place] [facility] [address] [id number] [place] [address] Dec, [facility] [place] [facility] [address] [id number] [place] [address] Dec, [facility] [place] [facility] [address] [id number] [place] [address] Dec, [facility] [place] [facility] [address] [id number] [place] [address] Nov, [facility] [place] [facility] [address] [id number] [address] Nov, [facility] [place] [facility] [address] [id number] [place] [address] Oct, [facility] [place] [facility] [address] [id number] [address] August, [facility] [place] [facility] [address] [id number] [place] [address] August, [facility] [place] [facility] [address] [id number] [place] [address] August, [facility] [place] [facility] [address] [id number] [place] [address] Jul, [facility] [place] [facility] [address] [id number] [place] [address] Jul, [facility] [address] [id number] [place] [address] 04 Jul, 2012 [facility] [address] [id number] [place] [address] 27 Jun, 2012 [facility] [address] [id number] [place] [address] Jun, [facility] [address] [id number] [place] [address] Jun, [facility] [address] [id number] [place] [address] 20 Jun, 2012 [facility] [address] [id number] [place] [address] 18 Jun, 2012 [facility] [address] [id number] [place] [address] 15 Jun, 2012 [facility] [address] [id number] [place] [address] Jun, [facility] [address] [id number] [place] [address] 18 May, 2012 [facility] [address] [id number] [place] [address] May, [facility] [address] [id number] [place] [address] 06 May, 2012 [facility] [place] [facility] [address] [id number] [place] [address] 05 May, 2012 [facility] [place] [facility] [address] [id number] [place] [address] Apr, [facility] [place] [facility] [address] [id number] [place] [address] Apr, [facility] [place] [facility] [address] [id number] [place] [address] Apr, [facility] [place] [facility] [address] [id number] [place] [address] Mar, [facility] [place] [facility] [address] [id number] [place] [address] Mar, [facility] [place] [facility] [address] [id number] [place] [address] Mar, [facility] [place] [facility] [address] [id number] [place] [address] Mar, [facility] [place] [facility] [address] [id number] [place] [address] Mar, [facility] [place] [facility] [address] [id number] [place] [address] Mar, [facility] [place] [facility] [address] [id number] [place] [address] Mar, [facility] [place] [facility] [address] [id number] [place] [address] Mar, [facility] [place] [facility] [address] [id number] [place] [address] Feb, [facility] [place] [facility] [address] [id number] [place] [address] Feb, [facility] [place] [facility] [address] [id number] [place] [address] Feb, [facility] [place] [facility] [address] [id number] [place] [address] Jan, [facility] [place] [facility] [address] [id number] [place] [address] Jan, [facility] [place] [facility] [address] [id number] [place] [address] Jan, [facility] [place] [facility] [address] [id number] [place] [address] Jan, [facility] [place] [facility] [address] [id number] [place] [address] Jan, [facility] [place] [facility] [address] [id number] [place] [address] Jan, [facility] [place] [facility] [address] [id number] [place] [address] Jan, [facility] [place] [facility] [address] [id number] [place] [address] Dec, [facility] [place] [facility] [address] [id number] [place] [address] 24 Dec, 2011 [facility] [place] [facility] [address] [id number] [place] [address] Dec, [facility] [place] [facility] [address] [id number] [place] [address] Nov, [facility] [place] [facility] [address] [id number] [place] [address] Nov, [facility] [place] [facility] [address] [id number] [place] [address] Nov, [facility] [place] [facility] [address] [id number] [place] [address] Nov, [facility] [place] [facility] [address] [id number] [place] [address] Oct, [facility] [place] [facility] [address] [id number] [place] [address] Oct, [facility] [place] [facility] [address] [id number] [address] Oct, [facility] [place] [facility] [address] [id number] [place] [address] Sep, [facility] [place] [facility] [address] [id number] [place] [address] Sep, [facility] [place] [facility] [address] [id number] [place] [address] Sep, [facility] [place] [facility] [address] [id number] [place] [address] Sep, [facility] [address] [id number] [place] [address] Sep, [facility] [address] [id number] [place] [address] Sep, [facility] [address] [id number] [place] [address] August, [facility] [address] [id number] [place] [address] Jul, [facility] [address] [id number] [place] [address] Jul, [facility] [address] [id number] [place] [address] Jul, [facility] [address] [facility] [id number] [place] [address] Jul, [facility] [address] [id number] [place] [address] Jul, [facility] [address] [id number] [place] [address] 29 Jun, 2011 [facility] [address] [facility] [id number] [place] [address] Jun, [facility] [place] [facility] [address] [id number] [place] [address] 15 Jun, 2011 [facility] [address] [id number] [place] [address] 15 Jun, 2011 [facility] [place] [facility] [address] [id number] [place] [address] Jun, [facility] [place] [facility] [address] [facility] [id number] [place] [address] May, [facility] [address] [facility] [id number] [place] [address] May, [facility] [place] [facility] [address] [id number] [place] [address] May, [facility] [place] [facility] [address] [id number] [place] [address] May, [facility] [place] [facility] [address] [id number] [place] [address] May, [facility] [place] [facility] [address] [id number] [place] [address] May, [facility] [place] [facility] [address] [id number] [place] [address] May, [facility] [place] [facility] [address] [id number] [place] [address] Apr, [facility] [place] [facility] [address] [id number] [place] [address] Mar, [facility] [place] [facility] [address] [id number] [place] [address] Mar, [facility] [place] [facility] [address] [id number] [place] [address] Mar, [facility] [place] [facility] [address] [id number] [place] [address] Mar, [facility] [place] [facility] [address] [id number] [place] [address] 08 Mar, 2011 [facility] [place] [facility] [address] [id number] [place] [address] 23 Feb, 2011 [facility] [place] [facility] [address] [id number] [place] [address] 14 Feb, 2011 [facility] [place] [facility] [address] [id number] [place] [address] 14 Feb, 2011 [facility] [place] [facility] [address] [id number] [place] [address] 14 Feb, 2011 [facility] [place] [facility] [address] [id number] [place] [address] 07 Feb, 2011 [facility] [address] [id number] [place] [address] Feb, [facility] [address] [id number] [place] [address] 04 Feb, 2011 [facility] [address] [id number] [place] [address] 10 Jan, 2011 [facility] [address] [id number] [place] [address] 12 Dec, 2010 [facility] [address] [id number] [place] [address] Oct, [facility] [address] [id number] [place] [address] Jun, [facility] [address] [id number] [place] [address] 23 Mar, 2010 [facility] [address] [id number] [place] [address] 23 Mar, 2010 [facility] [address] [id number] [place] [address] 16 Mar, 2010 [facility] [address] [id number] [place] [address] 16 Mar, 2010 [facility] [address] [id number] [place] [address] 15 Mar, 2010 [facility] [address] [id number] [place] [address] 10 Mar, 2010 [facility] [place] [facility] [address] [id number] [place] [address] 10 Mar, 2010 [facility] [place] [facility] [address] [id number] [place] [address] 05 Mar, 2010 [facility] [address] [id number] [place] [address] 03 Mar, 2010 [facility] [place] [facility] [address] [id number] [place] [address] 02 Mar, 2010 [facility] [address] [id number] [place] [address] Jan, [facility] [address] [id number] [place] [address] Jan, [facility] [address] [id number] [place] [address] Jan, [facility] [address] [id number] [place] [address] Nov, [facility] [address] [id number] [place] [address] Oct, [facility] [address] [id number] [place] [address] 31 Mar, 2009 [facility] [address] [id number] [place] [address] Mar, [facility] [address] [id number] [place] [address] Mar, [facility] [address] [id number] [address] Mar, [facility] [address] [id number] [address] 17 Dec, 2008 [facility] [place] [facility] [address] [id number] [place] [address] August, [facility] [place] [facility] [address] [id number] [place] [address] August, [facility] [place] [facility] [address] [id number] [place] [address] 15 Jul, 2008 [facility] [place] [facility] [address] [id number] [place] [address] Jan, [facility] [place] [facility] [address] [id number] [address] Jan, IMMUNIZATIONS No Known Immunizations SOCIAL HISTORY Never Assessed REASON FOR VISIT LVM PLAN OF CARE VITAL SIGNS MEDICATIONS Unknown [...]
--- OUTSIDE RECORDS SUMMARY | 2018-09-22 03:31 | XMS REPORT ---
Author Author FLORENTINEZEKIEL PUCKETT Organization [facility] Address [address] [place] [address] Care Team Providers Care Junior Software Engineer Name Role Phone DANICA LERMAY Unavailable PROBLEMS Type Condition ICD9-CM Code SUB62-UQ Code Onset Dates Condition Status SNOMED Code Problem Chronic gastritis without bleeding, unspecified gastritis type K29.50 Active 9679033 Problem Vitamin D deficiency E55.9 Active 59988486 Problem Osteoporosis M81.0 Active 07732101 Problem Unspecified abdominal pain R10.9 Active 905210178 Problem Fibromyalgia M79.7 Active 09513708 Problem Chronic pain syndrome G89.4 Active 824624146 Problem Trigger point with back pain M54.9 Active 109034420 Problem Chronic tension-type headache, not intractable G44.229 Active 162530277 Problem RUQ abdominal pain R10.11 Active 324730326 Problem Pancytopenia D61.818 Active 720885625 Problem Right sided sciatica M54.31 Active 17003981 Problem Chronic prescription opiate use Z79.891 Active 998740975 Problem Drug induced constipation K59.03 Active 657546323992179 Problem Leukopenia, unspecified type D72.819 Active 88043293 Problem Atrial fibrillation, unspecified type I48.91 Active 54367478 Problem Allergic rhinitis, unspecified allergic rhinitis type J30.9 Active 47334632 Problem Chronic obstructive pulmonary disease, unspecified COPD type J44.9 Active 67528371 Problem Hypothyroidism, unspecified hypothyroidism type E03.9 Active 74044973 Problem Other constipation K59.09 Active 916157900 Problem Porokeratosis Q82.8 Active 381286576 Problem 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 Active 927165962 Problem Allergy to intravenous contrast Z91.041 Active 498335684 Problem Vaginal atrophy N95.2 Active 858679310 Problem Major depression, recurrent F33.9 Active 13974483 Problem History of hepatitis C Z86.19 Active 40664999811371 Problem Hot flashes N95.1 Active 137829010 Problem Plantar fasciitis M72.2 Active 320627856 Problem Polyneuropathy associated with underlying disease G63 Active 272388744 Problem Primary insomnia F51.01 Active 6925083 Problem Low back pain M54.5 Active 208874910 ALLERGIES No Information ENCOUNTERS Encounter Location Date Diagnosis [facility] [id number] [place] [address] Jul, [facility] [id number] [place] [address] Jun, [facility] [id number] [place] [address] May, [facility] [id number] [place] [address] May, [facility] [id number] [place] [address] May, [facility] [id number] [place] [address] Apr, [facility] [id number] [place] [address] Apr, Hypothyroidism, unspecified hypothyroidism type E03.9 [facility] [id number] [place] [address] Apr, Hypothyroidism, unspecified hypothyroidism type E03.9 and Leukopenia, unspecified type D72.819 [facility] [id number] [place] [address] Mar, [facility] [id number] [place] [address] Mar, Leukopenia, unspecified type D72.819 [facility] [id number] [place] [address] Mar, Hypothyroidism, unspecified hypothyroidism type E03.9 and Low hemoglobin D64.9 [facility] [address] [place] [address] Mar, Hypothyroidism, unspecified hypothyroidism type E03.9 [facility] [place] [address] [address] Mar, Osteoporosis M81.0 ; Low hemoglobin D64.9 and Hypothyroidism, unspecified hypothyroidism type E03.[address] [address] Mar, Hypothyroidism, unspecified hypothyroidism type E03.9 ; Bilirubin in urine R82.2 and Pancytopenia D61.[address] [address] Feb, [facility] [address] [address] Feb, Cough R05 and Bronchitis J40 [facility] [address] [address] 14 Feb, 2017 Other viral agents as the cause of diseases classified elsewhere B97.89 and Acute upper respiratory infection, unspecified J06.[address] [address] Feb, Fibromyalgia M79.7 ; Chronic pain syndrome G89.4 ; Hypothyroidism, unspecified hypothyroidism type E03.9 ; Primary insomnia F51.01 ; Osteoporosis M81.0 ; Vision abnormalities H53.9 ; Pancytopenia D61.818 ; BMI 28.0-28.9,adult Z68.28 and Encounter for immunization Z23 [address] [address] Feb, Neuroma D36.10 and Capsulitis of right foot M77.[address] [address] Feb, [address] [address] Feb, Hypothyroidism, unspecified hypothyroidism type E03.9 [facility] [address] [address] Jan, [facility] [id number] [place] [address] Jan, Atrial fibrillation, unspecified type I48.91 [facility] [id number] [place] [address] Jan, [facility] [id number] [place] [address] Jan, Fibromyalgia M79.7 ; Atrial fibrillation, unspecified type I48.91 ; Pain of left hand M79.642 ; Pain in right hand M79.641 ; Chronic prescription opiate use Z79.891 ; Chronic pain syndrome G89.4 ; Elevated fasting glucose R73.01 and Hypothyroidism, unspecified hypothyroidism type E03.9 [facility] [id number] [place] [address] Jan, [facility] [id number] [place] [address] Dec, Trochanteric bursitis of both hips M70.61 [facility] [id number] [place] [address] Dec, [facility] [id number] [place] [address] Dec, [facility] [id number] [place] [address] Nov, [facility] [id number] [place] [address] Nov, Unilateral headache R51 [facility] [id number] [place] [address] Nov, [facility] [id number] [place] [address] Oct, Unilateral headache R51 ; 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 and Allergy to intravenous contrast Z91.041 [facility] [id number] [place] [address] Oct, [facility] [address] [address] Oct, [facility] [address] [address] Sep, Hypothyroidism, unspecified hypothyroidism type E03.9 [facility] [address] [address] Sep, Hypothyroidism, unspecified hypothyroidism type E03.9 and Bilirubin in urine R82.2 [place] [address] [address] Sep, Trochanteric bursitis of both hips M70.61 [place] [address] [address] Sep, Hypothyroidism, unspecified hypothyroidism type E03.9 ; Dysuria R30.0 ; Chronic tension-type headache, not intractable G44.229 and Drug induced constipation K59.03 [place] [address] [address] Sep, [facility] [id number] [place] [address] Sep, [facility] [address] [address] August, [facility] [id number] [place] [address] Jul, [facility] [address] [address] Jul, Trochanteric bursitis of right hip M70.61 [facility] [id number] [place] [address] Jul, Hypothyroidism, unspecified hypothyroidism type E03.9 [facility] [id number] [place] [address] Jul, Fibromyalgia M79.7 ; Chronic pain syndrome G89.4 ; Hypothyroidism, unspecified hypothyroidism type E03.9 and Other constipation K59.09 [facility] [id number] [place] [address] Jun, Swollen tonsil J35.1 and Strep throat J02.0 [facility] [id number] [place] [address] Jun, [facility] [id number] [place] [address] Jun, Acute maxillary sinusitis J01.00 [facility] [id number] [place] [address] Jun, Hypothyroidism, unspecified hypothyroidism type E03.9 [facility] [address] [address] Jun, Chronic pain syndrome G89.4 ; Fibromyalgia M79.7 ; Hypothyroidism, unspecified hypothyroidism type E03.9 and Chronic prescription opiate use Z79.891 [facility] [id number] [place] [address] May, [facility] [id number] [place] [address] Apr, Hypothyroidism, unspecified hypothyroidism type E03.9 [facility] [id number] [place] [address] Apr, [facility] [id number] [place] [address] Apr, Lipid screening Z13.220 and Hypothyroidism, unspecified hypothyroidism type E03.9 [facility] [id number] [place] [address] Apr, [facility] [id number] [place] [address] Mar, Trochanteric bursitis of both hips M70.61 [facility] [id number] [place] [address] Mar, [place] [address] [address] Mar, Plantar fasciitis M72.2 and Porokeratosis Q82.8 [place] [address] [address] Feb, Lipid screening Z13.220 ; Vitamin D deficiency E55.9 and Hypothyroidism, unspecified hypothyroidism type E03.9 [place] [address] [address] Feb, Chronic pain syndrome G89.4 ; Hypothyroidism, unspecified hypothyroidism type E03.9 ; Pancytopenia D61.818 ; Vaginal atrophy N95.2 ; Chronic gastritis without bleeding, unspecified gastritis type K29.50 ; Vitamin D deficiency E55.9 ; Chronic prescription opiate use Z79.891 ; Adverse effect of other opioids, initial encounter T40.2X5A ; Drug induced constipation K59.03 ; Lipid screening Z13.220 and Encounter for immunization Z23 [place] [address] [address] Feb, [place] [address] [address] Feb, Ingrown toenail L60.0 [place] [address] [address] Jan, [facility] [id number] [place] [address] Jan, Trochanteric bursitis of both hips M70.61 [facility] [id number] [place] [address] Jan, [place] [address] [address] Jan, [facility] [address] [place] [address] Jan, [facility] [id number] [place] [address] Jan, Right sided sciatica M54.31 [facility] [id number] [place] [address] 23 Dec, 2015 Onychomycosis B35.1 [facility] [id number] [place] [address] Dec, [facility] [id number] [place] [address] Dec, [facility] [id number] [place] [address] Dec, [facility] [id number] [place] [address] Dec, Osteoarthritis of right hip, unspecified osteoarthritis type M16.11 and Bursitis of right hip M70.71 [facility] [id number] [place] [address] Nov, [facility] [id number] [place] [address] Nov, [facility] [id number] [place] [address] Nov, [facility] [id number] [place] [address] Nov, Hypothyroidism, unspecified hypothyroidism type E03.9 ; Vitamin D deficiency E55.9 and History of hepatitis C Z86.19 [facility] [id number] [place] [address] Nov, Right upper quadrant pain R10.11 ; History of hepatitis C Z86.19 and Low back pain M54.5 [facility] [id number] [place] [address] Oct, Trochanteric bursitis, right hip M70.61 [facility] [id number] [place] [address] Oct, [facility] [id number] [place] [address] Oct, [facility] [id number] [place] [address] Oct, Trochanteric bursitis of both hips M70.61 and Right sided sciatica M54.31 [facility] [id number] [place] [address] Oct, Trochanteric bursitis of both hips M70.61 [facility] [id number] [place] [address] 14 Oct, 2015 RUQ abdominal pain R10.11 [facility] [id number] [place] [address] Oct, Sciatic leg pain M54.30 [facility] [id number] [place] [address] Oct, RUQ abdominal pain R10.11 [facility] [id number] [place] [address] Oct, RUQ abdominal pain R10.11 ; History of hepatitis C Z86.19 and Trigger point with back pain M54.9 [facility] [address] [place] [address] Sep, [facility] [id number] [place] [address] Sep, Right sided sciatica M54.31 [facility] [id number] [place] [address] 06 Sep, 2015 Hypothyroidism, unspecified hypothyroidism type E03.9 and Vitamin D deficiency E55.9 [facility] [id number] [place] [address] Sep, Plantar fasciitis M72.2 and Porokeratosis Q82.8 [facility] [id number] [place] [address] Sep, Hypothyroidism, unspecified hypothyroidism type E03.9 ; Chronic pain syndrome G89.4 ; Polyneuropathy associated with underlying disease G63 and Vitamin D deficiency E55.9 [facility] [id number] [place] [address] August, [facility] [id number] [place] [address] Jul, Plantar fasciitis M72.2 [facility] [id number] [place] [address] Jul, Trochanteric bursitis, right hip M70.61 [facility] [id number] [place] [address] Jul, Hypothyroidism, unspecified hypothyroidism type E03.9 [facility] [id number] [place] [address] Jul, Hypothyroidism, unspecified hypothyroidism type E03.9 ; Chronic pain syndrome G89.4 and Polyneuropathy associated with underlying disease G63 [facility] [id number] [place] [address] Jun, Trochanteric bursitis of both hips M70.61 [facility] [id number] [place] [address] Jun, Vitamin D deficiency E55.9 ; Osteoporosis M81.0 ; Low back pain M54.5 and Plantar fasciitis M72.2 [facility] [id number] [place] [address] May, Vitamin D deficiency E55.9 and Hypothyroidism, unspecified hypothyroidism type E03.9 [facility] [id number] [place] [address] May, Acute maxillary sinusitis J01.00 [facility] [address] [place] [address] 18 May, 2015 Osteoporosis M81.0 and Hypothyroidism, unspecified hypothyroidism type E03.9 [facility] [address] [place] [address] 16 May, 2015 Osteoporosis M81.0 [facility] [id number] [place] [address] May, [facility] [id number] [place] [address] Apr, [facility] [id number] [place] [address] Apr, Trochanteric bursitis of both hips M70.61 [facility] [id number] [place] [address] Apr, Hypothyroidism, unspecified hypothyroidism type E03.9 [facility] [id number] [place] [address] Apr, Chronic pain syndrome G89.4 ; Bilateral low back pain with sciatica, sciatica laterality unspecified M54.40 ; Pain in right hip M25.551 ; Pain in left hip M25.552 ; Chronic prescription opiate use Z79.899 ; Primary insomnia F51.01 and Hypothyroidism, unspecified hypothyroidism type E03.9 [facility] [place] [address] [place] [address] Mar, [facility] [address] [place] [address] Feb, [facility] [place] [id number] [place] [address] Feb, Chronic pain syndrome G89.4 and Major depression F32.9 [facility] [address] [place] [address] Feb, Fatigue R53.83 [facility] [address] [place] [address] 13 Feb, 2015 History of fracture Z87.81 [facility] [id number] [place] [address] Feb, Major depression, recurrent F33.9 and Generalized anxiety disorder F41.1 [place] [address] [address] Feb, [facility] [place] [id number] [place] [address] Jan, Hypothyroidism, unspecified hypothyroidism type E03.9 [facility] [id number] [place] [address] Jan, Abdominal pain R10.9 and Hypothyroidism, unspecified hypothyroidism type E03.9 [facility] [id number] [place] [address] Jan, Abdominal pain R10.9 [facility] [id number] [place] [address] Jan, Hypothyroidism, unspecified hypothyroidism type E03.9 [facility] [id number] [place] [address] Jan, [facility] [id number] [place] [address] Jan, 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 and Hypothyroidism, unspecified hypothyroidism type E03.9 [facility] [place] [address] [place] [address] Jan, 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 ; Abdominal pain R10.9 ; Dyspareunia N94.1 ; Encounter for immunization Z23 ; History of fracture Z87.81 ; Fatigue R53.83 ; Throat fullness R68.89 ; Bruises easily R23.8 ; Hot flashes N95.1 ; Depression F32.9 and Vaginal atrophy N95.2 [facility] [id number] [place] [address] Jan, Hypothyroidism, unspecified hypothyroidism type E03.9 [facility] [id number] [place] [address] Jan, Unspecified abdominal pain R10.9 ; Chronic obstructive pulmonary disease, unspecified COPD type J44.9 ; Allergic rhinitis, unspecified allergic rhinitis type J30.9 ; Chronic pain syndrome G89.4 ; Hypothyroidism, unspecified hypothyroidism type E03.9 ; Chest pain, unspecified chest pain type R07.9 and Plantar fasciitis M72.2 [place] [address] [address] Jan, Trochanteric bursitis of both hips M70.61 [place] [address] [address] Dec, [facility] [address] [address] Nov, [facility] [address] [address] Nov, [facility] [id number] [place] [address] Nov, Constipation 564.00 [facility] [id number] [place] [address] Oct, Chronic pain 338.29 and Hypothyroidism 244.9 [facility] [id number] [place] [address] Oct, [facility] [address] [address] Sep, [facility] [id number] [place] [address] Sep, [facility] [address] [address] Sep, [facility] [address] [address] Sep, [facility] [id number] [place] [address] Sep, [facility] [address] [place] [address] Sep, [facility] [id number] [place] [address] Sep, COPD exacerbation 491.21 ; Chronic pain 338.29 ; Hypothyroidism 244.9 and Pancytopenia 284.19 [facility] [id number] [place] [address] August, [facility] [id number] [place] [address] Jul, [facility] [id number] [place] [address] Jul, [facility] [address] [address] Jun, [facility] [address] [address] Jun, [facility] [address], [place] [address] Jun, [facility] [address], [place] [address] Jun, [facility] [address], [place] [address] Jun, [facility] [id number] [address] May, [facility] [id number] [address] May, [facility] [id number] [place] [address] May, 2014 [facility] [place] [facility] [address] [id number] [place] [address] May, 2014 [facility] [place] [facility] [address] [id number] [place] [address] May, 2014 [facility] [place] [facility] [address] [facility] [place] [facility] [id number] [place] [address] May, 2014 [facility] [place] [facility] [address] [id number] [place] [address] May, 2014 [facility] [place] [facility] [address] [id number] [place] [address] May, 2014 [facility] [place] [facility] [address] [facility] [place] [facility] [id number] [place] [address] May, 2014 [facility] [place] [facility] [id number] [place] [address] May, 2014 [facility] [place] [facility] [address] [facility] [place] [facility] [id number] [place] [address] May, [facility] [place] [facility] [id number] [place] [address] May, [facility] [place] [facility] [address] [facility] [place] [facility] [id number] [place] [address] May, [facility] [place] [facility] [address] [facility] [place] [id number] [place] [address] Apr, [facility] [place] [facility] [address] [id number] [place] [address] Apr, [facility] [place] [facility] [address] [facility] [place] [id number] [place] [address] Apr, [facility] [place] [facility] [address] [facility] [place] [id number] [place] [address] Apr, [facility] [place] [facility] [address] [facility] [place] [id number] [place] [address] Apr, [facility] [place] [facility] [address] [id number] [place] [address] Apr, [facility] [place] [facility] [address] [id number] [place] [address] Apr, [facility] [place] [facility] [address] [id number] [place] [address] Mar, [facility] [place] [facility] [address] [id number] [place] [address] Mar, [facility] [place] [facility] [address] [id number] [place] [address] Mar, [facility] [place] [facility] [address] [id number] [place] [address] Mar, [facility] [place] [facility] [address] [id number] [place] [address] Mar, [facility] [place] [facility] [address] [id number] [place] [address] Mar, [facility] [place] [facility] [address] [id number] [place] [address] Feb, [facility] [place] [facility] [address] [id number] [place] [address] Feb, [facility] [place] [facility] [address] [id number], [place] [address] Feb, [facility] [place] [facility] [address] [id number], [place] [address] Feb, [facility] [place] [facility] [address] [id number] [place] [address] Feb, [facility] [place] [facility] [address] [id number] [place] [address] Feb, [facility] [place] [facility] [address] [id number] [place] [address] Jan, [facility] [place] [facility] [address] [id number] [place] [address] Jan, [facility] [place] [facility] [address] [id number] [place] [address] Jan, [facility] [place] [facility] [address] [id number] [place] [address] Jan, [facility] [place] [facility] [address] [id number] [place] [address] Jan, [facility] [place] [facility] [address] [id number] [place] [address] Jan, [facility] [place] [facility] [address] [id number] [place] [address] Jan, [facility] [place] [facility] [address] [id number] [place] [address] Jan, [facility] [place] [facility] [address] [id number] [place] [address] Dec, [facility] [place] [facility] [address] [id number] [place] [address] 25 Dec, 2013 [facility] [place] [facility] [address] [id number] [place] [address] 23 Dec, 2013 [facility] [place] [facility] [address] [id number] [place] [address] 23 Dec, 2013 [facility] [place] [facility] [address] [id number] [place] [address] 13 Dec, 2013 [facility] [place] [facility] [address] [id number] [place] [address] 10 Dec, 2013 [facility] [place] [facility] [address] [id number] [place] [address] Dec, [facility] [place] [facility] [address] [id number] [place] [address] Nov, [facility] [place] [facility] [address] [id number] [place] [address] Nov, [facility] [place] [facility] [address] [id number] [place] [address] Oct, [facility] [place] [facility] [address] [id number] [place] [address] Oct, [facility] [place] [facility] [address] [id number] [place] [address] Oct, [facility] [place] [facility] [address] [id number] [place] [address] Oct, [facility] [place] [facility] [address] [id number] [place] [address] Sep, [facility] [place] [facility] [address] [id number] [place] [address] Sep, [facility] [place] [facility] [address] [id number] [place] [address] Sep, [facility] [place] [facility] [address] [id number] [place] [address] Sep, [facility] [place] [facility] [address] [id number] [place] [address] Sep, [facility] [place] [facility] [address] [id number] [place] [address] Sep, [facility] [place] [facility] [address] [id number] [place] [address] Sep, [facility] [place] [facility] [address] [id number] [place] [address] Sep, [facility] [place] [facility] [address] [id number] [place] [address] August, [facility] [place] [facility] [address] [id number] [place] [address] August, [facility] [place] [facility] [address] [id number] [place] [address] August, [facility] [place] [facility] [address] [id number] [place] [address] August, [facility] [place] [facility] [address] [id number] [place] [address] 30 Jul, 2013 [facility] [place] [facility] [address] [id number] [place] [address] 30 Jul, 2013 [facility] [place] [facility] [address] [id number] [place] [address] Jul, [facility] [place] [facility] [address] [id number] [place] [address] 24 Jul, 2013 [facility] [place] [facility] [address] [id number] [place] [address] 17 Jul, 2013 [facility] [place] [facility] [address] [id number] [place] [address] 16 Jul, 2013 [facility] [place] [facility] [address] [id number] [place] [address] 15 Jul, 2013 [facility] [place] [facility] [address] [id number] [place] [address] Jul, [facility] [place] [facility] [address] [id number] [place] [address] Jun, [facility] [place] [facility] [address] [id number] [place] [address] Jun, [facility] [place] [facility] [address] [id number] [place] [address] Jun, [facility] [place] [facility] [address] [id number] [place] [address] Jun, [facility] [place] [facility] [address] [id number] [place] [address] Jun, [facility] [place] [facility] [address] [id number] [place] [address] Jun, [facility] [place] [facility] [address] [id number] [place] [address] Jun, [facility] [place] [facility] [address] [id number] [place] [address] Jun, [facility] [address] [id number] [place] [address] May, [facility] [address] [id number] [place] [address] May, [facility] [address] [id number] [place] [address] Apr, [facility] [address] [id number] [place] [address] Apr, [facility] [address] [id number] [place] [address] Mar, [facility] [address] [id number] [place] [address] Mar, [facility] [address] [id number] [place] [address] Mar, [facility] [address] [id number] [place] [address] Mar, [facility] [address] [id number] [place] [address] Mar, [facility] [address] [id number] [place] [address] Mar, [facility] [address] [id number] [place] [address] Mar, [facility] [address] [id number] [place] [address] Feb, [facility] [place] [facility] [address] [id number] [place] [address] Feb, [facility] [address] [id number] [place] [address] Feb, [facility] [address] [id number] [place] [address] Feb, [facility] [place] [facility] [address] [id number] [place] [address] 05 Feb, 2013 [facility] [place] [facility] [address] [id number] [place] [address] Feb, [facility] [place] [facility] [address] [id number] [place] [address] 26 Dec, 2012 [facility] [place] [facility] [address] [id number] [place] [address] 18 Dec, 2012 [facility] [place] [facility] [address] [id number] [place] [address] Dec, [facility] [place] [facility] [address] [id number] [place] [address] Dec, [facility] [place] [facility] [address] [id number] [place] [address] Dec, [facility] [place] [facility] [address] [id number] [place] [address] Nov, [facility] [place] [facility] [address] [id number] [place] [address] Nov, [facility] [place] [facility] [address] [id number] [place] [address] Oct, [facility] [place] [facility] [address] [id number] [place] [address] August, [facility] [place] [facility] [address] [id number] [place] [address] August, [facility] [place] [facility] [address] [id number] [place] [address] August, [facility] [place] [facility] [address] [id number] [place] [address] Jul, [facility] [place] [facility] [address] [id number] [place] [address] Jul, [facility] [place] [facility] [address] [id number] [place] [address] 04 Jul, 2012 [facility] [address] [id number] [place] [address] 27 Jun, 2012 [facility] [address] [id number] [place] [address] 26 Jun, 2012 [facility] [address] [id number] [place] [address] 21 Jun, 2012 [facility] [address] [id number] [place] [address] 20 Jun, 2012 [facility] [address] [id number] [place] [address] 18 Jun, 2012 [facility] [address] [id number] [place] [address] 15 Jun, 2012 [facility] [address] [id number] [place] [address] Jun, [facility] [address] [id number] [place] [address] 18 May, 2012 [facility] [address] [id number] [place] [address] May, [facility] [address] [id number] [place] [address] 06 May, 2012 [facility] [address] [id number] [place] [address] 05 May, 2012 [facility] [address] [id number] [place] [address] Apr, [facility] [place] [facility] [address] [id number] [place] [address] 09 Apr, 2012 [facility] [place] [facility] [address] [id number] [place] [address] Apr, [facility] [address] [id number] [place] [address] Mar, [facility] [place] [facility] [address] [id number] [place] [address] Mar, [facility] [place] [facility] [address] [id number] [place] [address] Mar, [facility] [place] [facility] [address] [id number] [place] [address] Mar, [facility] [place] [facility] [address] [id number] [place] [address] Mar, [facility] [place] [facility] [address] [id number] [place] [address] Mar, [facility] [place] [facility] [address] [id number] [place] [address] Mar, [facility] [place] [facility] [address] [id number] [place] [address] Mar, [facility] [place] [facility] [address] [id number] [place] [address] Feb, [facility] [place] [facility] [address] [id number] [place] [address] Feb, [facility] [place] [facility] [address] [id number] [place] [address] Feb, [facility] [place] [facility] [address] [id number] [place] [address] Jan, [facility] [place] [facility] [address] [id number] [address] Jan, [facility] [place] [facility] [address] [id number] [place] [address] Jan, [facility] [place] [facility] [address] [id number] [place] [address] Jan, [facility] [place] [facility] [address] [id number] [place] [address] Jan, [facility] [place] [facility] [address] [id number], [place] [address] Jan, [facility] [place] [facility] [address] [id number] [place] [address] Jan, [facility] [place] [facility] [address] [id number] [place] [address] 27 Dec, 2011 [facility] [place] [facility] [address] [id number] [place] [address] 24 Dec, 2011 [facility] [place] [facility] [address] [id number] [place] [address] 10 Dec, 2011 [facility] [place] [facility] [address] [id number] [place] [address] 30 Nov, 2011 [facility] [place] [facility] [address] [id number] [place] [address] Nov, [facility] [place] [facility] [address] [id number] [place] [address] Nov, [facility] [place] [facility] [address] [id number] [place] [address] Nov, [facility] [place] [facility] [address] [id number] [place] [address] Oct, [facility] [place] [facility] [address] [id number] [place] [address] Oct, [facility] [place] [facility] [address] [id number] [place] [address] Oct, [facility] [place] [facility] [address] [id number] [place] [address] Sep, [facility] [place] [facility] [address] [id number] [place] [address] 16 Sep, 2011 [facility] [place] [facility] [address] [id number] [place] [address] Sep, [facility] [place] [facility] [address] [id number] [place] [address] Sep, [facility] [place] [facility] [address] [id number] [place] [address] Sep, [facility] [address] [id number] [place] [address] Sep, [facility] [place] [facility] [address] [id number] [place] [address] August, [facility] [address] [id number] [place] [address] Jul, [facility] [address] [id number] [place] [address] Jul, [facility] [address] [id number] [place] [address] Jul, [facility] [address] [id number] [place] [address] Jul, [facility] [address] [id number] [place] [address] Jul, [facility] [address] [id number] [place] [address] Jun, [facility] [address] [id number] [place] [address] Jun, [facility] [address] [id number] [place] [address] Jun, [facility] [place] [facility] [address] [id number] [place] [address] Jun, [facility] [address] [id number] [place] [address] Jun, [facility] [place] [facility] [address] [id number] [place] [address] May, [facility] [place] [facility] [address] [id number] [place] [address] May, [facility] [place] [facility] [address] [id number] [place] [address] May, [facility] [place] [facility] [address] [id number] [place] [address] 06 May, 2011 [facility] [place] [facility] [address] [id number] [place] [address] May, [facility] [place] [facility] [address] [id number] [place] [address] May, [facility] [place] [facility] [address] [id number] [place] [address] May, [facility] [place] [facility] [address] [id number] [place] [address] Apr, [facility] [place] [facility] [address] [id number] [place] [address] 29 Mar, 2011 [facility] [place] [facility] [address] [id number] [place] [address] Mar, [facility] [place] [facility] [address] [id number] [place] [address] Mar, [facility] [place] [facility] [address] [id number] [place] [address] Mar, [facility] [place] [facility] [address] [id number] [place] [address] Mar, [facility] [place] [facility] [address] [id number] [place] [address] 23 Feb, 2011 [facility] [place] [facility] [address] [id number] [place] [address] 14 Feb, 2011 [facility] [place] [facility] [address] [id number] [place] [address] 14 Feb, 2011 [facility] [place] [facility] [address] [id number] [place] [address] 14 Feb, 2011 [facility] [place] [facility] [address] [id number] [place] [address] 07 Feb, 2011 [facility] [place] [facility] [address] [id number] [place] [address] 04 Feb, 2011 [facility] [address] [id number] [place] [address] Feb, [facility] [address] [id number] [place] [address] 10 Jan, 2011 [facility] [address] [id number] [place] [address] 12 Dec, 2010 [facility] [address] [id number] [place] [address] Oct, [facility] [address] [id number] [place] [address] Jun, [facility] [address] [id number] [place] [address] Mar, [facility] [address] [id number] [place] [address] 23 Mar, 2010 [facility] [address] [id number] [place] [address] 16 Mar, 2010 [facility] [address] [id number] [place] [address] 16 Mar, 2010 [facility] [address] [id number] [place] [address] 15 Mar, 2010 [facility] [address] [id number] [place] [address] 10 Mar, 2010 [facility] [address] [id number] [place] [address] 10 Mar, 2010 [facility] [address] [id number] [place] [address] 05 Mar, 2010 [facility] [address] [id number] [place] [address] 03 Mar, 2010 [facility] [address] [id number] [place] [address] Mar, [facility] [address] [facility] [place] [id number], [place] [address] Jan, [facility] [address] [facility] [place] [id number], [place] [address] Jan, [facility] [address] [facility] [place] [id number], [place] [address] Jan, [facility] [address] [facility] [place] [id number], [place] [address] Nov, [facility] [address] [facility] [place] [id number], [place] [address] Oct, [facility] [address] [facility] [place] [id number], [place] [address] Mar, [facility] [address] [facility] [place] [id number], [place] [address] Mar, [facility] [address] [facility] [place] [id number], [place] [address] Mar, [facility] [address] [facility] [place] [id number], [place] [address] Mar, [facility] [address] [facility] [place] [id number], [place] [address] Dec, [facility] [address] [facility] [place] [id number], [place] [address] August, [facility] [address] [facility] [place] [id number], [place] [address] August, [facility] [address] [facility] [place] [id number], [place] [address] Jul, [facility] [address] [facility] [place] [id number], [place] [address] Jan, [facility] [address] [facility] [place] [id number], [place] [address] Jan, IMMUNIZATIONS No Known Immunizations SOCIAL HISTORY Never Assessed REASON FOR VISIT Referral Request PLAN OF CARE VITAL SIGNS MEDICATIONS Unknown [...]
--- OUTSIDE RECORDS SUMMARY | 2018-09-22 03:32 | XMS REPORT ---
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 Name Role Phone DANICA LERMAY Unavailable PROBLEMS Type Condition ICD9-CM Code [id number] Code Onset Dates Condition Status SNOMED Code Problem Chronic gastritis without bleeding, unspecified gastritis type K29.50 Active 6723964 Problem Vitamin D deficiency E55.9 Active 24326706 Problem Osteoporosis M81.0 Active 94055308 Problem Unspecified abdominal pain R10.9 Active 754391735 Problem Fibromyalgia M79.7 Active 01303314 Problem Chronic pain syndrome G89.4 Active 959521264 Problem Trigger point with back pain M54.9 Active 534401170 Problem Chronic tension-type headache, not intractable G44.229 Active 627153499 Problem RUQ abdominal pain R10.11 Active 662708590 Problem Pancytopenia D61.818 Active 113691234 Problem Right sided sciatica M54.31 Active 52777837 Problem Chronic prescription opiate use Z79.891 Active 139452204 Problem Drug induced constipation K59.03 Active 394225489476921 Problem Leukopenia, unspecified type D72.819 Active 09243225 Problem Atrial fibrillation, unspecified type I48.91 Active 55574740 Problem Allergic rhinitis, unspecified allergic rhinitis type J30.9 Active 73627590 Problem Chronic obstructive pulmonary disease, unspecified COPD type J44.9 Active 32442498 Problem Hypothyroidism, unspecified hypothyroidism type E03.9 Active 71609800 Problem Other constipation K59.09 Active 770583598 Problem Porokeratosis Q82.8 Active 339190822 Problem 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 Active 729698905 Problem Allergy to intravenous contrast Z91.041 Active 770866226 Problem Vaginal atrophy N95.2 Active 040649315 Problem Major depression, recurrent F33.9 Active 45165511 Problem History of hepatitis C Z86.19 Active 80658476073484 Problem Hot flashes N95.1 Active 624502900 Problem Plantar fasciitis M72.2 Active 971335874 Problem Polyneuropathy associated with underlying disease G63 Active 587215834 Problem Primary insomnia F51.01 Active 8354850 Problem Low back pain M54.5 Active 434706420 ALLERGIES No Information ENCOUNTERS Encounter Location Date Diagnosis [place] [id number] [place] [address] August, Somatic dysfunction of lumbar region M99.03 and Somatic dysfunction of pelvis region M99.05 [place] [id number] [place] [id number] August, Chronic pain syndrome G89.4 [place] [id number] [place] [address] Jul, Trochanteric bursitis of left hip M70.62 and Trochanteric bursitis, right hip M70.61 [place] [id number] [place] [address] Jul, [place] [id number] [place] [id number] Jul, Chronic pain syndrome G89.4 [place] [id number] [place] [address] Jul, Hypothyroidism, unspecified hypothyroidism type E03.9 [place] [id number] [place] [address] Jul, Hypothyroidism, unspecified hypothyroidism type E03.9 [place] [address] [place] [address] Jul, Chronic tension-type headache, not intractable G44.229 [...] [place] [address] [address] Jun, [facility] [place] [address] [address] May, [facility] [place] [address] [address] May, [facility] [place] [id number] [place] [address] May, [facility] [place] [id number] [place] [id number] Apr, [facility] [place] [address] [place] [address] Apr, Hypothyroidism, unspecified hypothyroidism type E03.9 [facility] [place] [id number] [place] [id number] Apr, Hypothyroidism, unspecified hypothyroidism type E03.9 and Leukopenia, unspecified type D72.819 [facility] [place] [id number] [place] [address] Mar, [facility] [place] [address] [address] Mar, Leukopenia, unspecified type D72.819 [facility] [place] [address] [address] Mar, Hypothyroidism, unspecified hypothyroidism type E03.9 and Low hemoglobin D64.9 [facility] [place] [address], [place] [address] Mar, Hypothyroidism, unspecified hypothyroidism type E03.9 [facility] [place] [address] [address] Mar, Osteoporosis M81.0 ; Low hemoglobin D64.9 and Hypothyroidism, unspecified hypothyroidism type E03.9 [facility] [place] [address] [address] Mar, Hypothyroidism, unspecified hypothyroidism type E03.9 ; Bilirubin in urine R82.2 and Pancytopenia D61.818 [place] [address] [address] Feb, [facility] [address] [address] Feb, Cough R05 and Bronchitis J40 [facility] [address] [address] 14 Feb, 2017 Other viral agents as the cause of diseases classified elsewhere B97.89 and Acute upper respiratory infection, unspecified J06.[address] [address] Feb, Fibromyalgia M79.7 ; Chronic pain syndrome G89.4 ; Hypothyroidism, unspecified hypothyroidism type E03.9 ; Primary insomnia F51.01 ; Osteoporosis M81.0 ; Vision abnormalities H53.9 ; Pancytopenia D61.818 ; BMI 28.0-28.9,adult Z68.28 and Encounter for immunization Z23 [address] [address] Feb, Neuroma D36.10 and Capsulitis of right foot M77.[address] [address] Feb, [address] [address] Feb, Hypothyroidism, unspecified hypothyroidism type E03.[address] [address] Jan, [address] [address] Jan, Atrial fibrillation, unspecified type I48.[address] [address] Jan, [facility] [place] [id number] [place] [address] Jan, Fibromyalgia M79.7 ; Atrial fibrillation, unspecified type I48.91 ; Pain of left hand M79.642 ; Pain in right hand M79.641 ; Chronic prescription opiate use Z79.891 ; Chronic pain syndrome G89.4 ; Elevated fasting glucose R73.01 and Hypothyroidism, unspecified hypothyroidism type E03.9 [facility] [place] [id number] [place] [address] Jan, [place] [address] [address] Dec, Trochanteric bursitis of both hips M70.61 [place] [id number] [place] [address] Dec, [facility] [place] [address] [address] Dec, [facility] [place] [id number] [place] [address] Nov, [facility] [place] [id number] [place] [address] Nov, Unilateral headache R51 [facility] [place] [id number] [place] [address] Nov, [facility] [place] [id number] [place] [address] Oct, Unilateral headache R51 ; 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 and Allergy to intravenous contrast Z91.041 [facility] [place] [address] [address] Oct, [facility] [place] [id number] [place] [address] Oct, [facility] [place] [address] [address] Sep, Hypothyroidism, unspecified hypothyroidism type E03.9 [facility] [place] [id number] [place] [address] Sep, Hypothyroidism, unspecified hypothyroidism type E03.9 and Bilirubin in urine R82.2 [facility] [place] [address] [address] Sep, Trochanteric bursitis of both hips M70.61 [facility] [place] [address] [address] Sep, Hypothyroidism, unspecified hypothyroidism type E03.9 ; Dysuria R30.0 ; Chronic tension-type headache, not intractable G44.229 and Drug induced constipation K59.03 [place] [address] [address] Sep, [place] [address] [address] Sep, [facility] [place] [address] [address] August, [facility] [place] [address] [address] Jul, [place] [address] [address] Jul, Trochanteric bursitis of right hip M70.61 [facility] [place] [address] [address] Jul, Hypothyroidism, unspecified hypothyroidism type E03.9 [place] [address] [address] Jul, Fibromyalgia M79.7 ; Chronic pain syndrome G89.4 ; Hypothyroidism, unspecified hypothyroidism type E03.9 and Other constipation K59.09 [facility] [id number] [place] [address] Jun, Swollen tonsil J35.1 and Strep throat J02.0 [facility] [place] [id number] [place] [address] Jun, [facility] [place] [address] [address] Jun, Acute maxillary sinusitis J01.00 [facility] [place] [address] [id number] [place] [address] Jun, Hypothyroidism, unspecified hypothyroidism type E03.9 [facility] [place] [id number] [place] [address] Jun, Chronic pain syndrome G89.4 ; Fibromyalgia M79.7 ; Hypothyroidism, unspecified hypothyroidism type E03.9 and Chronic prescription opiate use Z79.891 [facility] [place] [id number] [place] [address] May, [facility] [place] [address] [address] Apr, Hypothyroidism, unspecified hypothyroidism type E03.9 [facility] [place] [id number] [place] [address] Apr, [facility] [place] [address] [id number] [place] [address] Apr, Lipid screening Z13.220 and Hypothyroidism, unspecified hypothyroidism type E03.9 [facility] [place] [id number] [place] [address] Apr, [facility] [place] [id number] [place] [address] Mar, Trochanteric bursitis of both hips M70.61 [facility] [place] [id number] [place] [id number] Mar, [facility] [place] [address] [id number] [place] [address] Mar, Plantar fasciitis M72.2 and Porokeratosis Q82.8 [place] [id number] [place] [address] Feb, Lipid screening Z13.220 ; Vitamin D deficiency E55.9 and Hypothyroidism, unspecified hypothyroidism type E03.9 [facility] [place] [id number] [place] [address] 16 Feb, 2016 Chronic pain syndrome G89.4 [...] and Encounter for immunization Z23 [place] [address] [address] Feb, [place] [address] [address] Feb, Ingrown toenail L60.0 [place] [address] [address] Jan, [place] [address] [address] Jan, Trochanteric bursitis of both hips M70.61 [place] [address] [address] Jan, [place] [address] [address] Jan, [place] [address] [address] Jan, [place] [id number] [place] [address] Jan, Right sided sciatica M54.31 [place] [address] [address] Dec, Onychomycosis B35.1 [facility] [place] [id number] [place] [phone] Dec, [facility] [place] [id number] [place] [address] Dec, [facility] [place] [id number] [place] [address] Dec, [facility] [place] [id number] [place] [address] Dec, Osteoarthritis of right hip, unspecified osteoarthritis type M16.11 and Bursitis of right hip M70.71 [place] [id number] [place] [address] Nov, [place] [id number] [place] [address] Nov, [facility] [place] [id number] [place] [address] Nov, [facility] [place] [id number] [place] [address] Nov, Hypothyroidism, unspecified hypothyroidism type E03.9 ; Vitamin D deficiency E55.9 and History of hepatitis C Z86.19 [place] [id number] [place] [address] Nov, Right upper quadrant pain R10.11 ; History of hepatitis C Z86.19 and Low back pain M54.5 [facility] [place] [id number] [place] [address] Oct, Trochanteric bursitis, right hip M70.61 [facility] [place] [id number] [place] [address] Oct, [facility] [place] [id number] [place] [address] Oct, [facility] [place] [address] [place] [address] 21 Oct, 2015 Trochanteric bursitis of both hips M70.61 and Right sided sciatica M54.31 [place] [id number] [place] [address] 20 Oct, 2015 Trochanteric bursitis of both hips M70.61 [place] [id number] [place] [address] 14 Oct, 2015 RUQ abdominal pain R10.11 [place] [id number] [place] [address] 13 Oct, 2015 Sciatic leg pain M54.30 [place] [id number] [place] [address] Oct, RUQ abdominal pain R10.11 [place] [address] [address] 07 Oct, 2015 RUQ abdominal pain R10.11 ; History of hepatitis C Z86.19 and Trigger point with back pain M54.9 [place] [id number] [place] [address] Sep, [place] [id number] [place] [address] 09 Sep, 2015 Right sided sciatica M54.31 [place] [id number] [place] [address] Sep, Hypothyroidism, unspecified hypothyroidism type E03.9 and Vitamin D deficiency E55.9 [place] [id number] [place] [address] Sep, Plantar fasciitis M72.2 and Porokeratosis Q82.8 [place] [id number] [place] [address] Sep, Hypothyroidism, unspecified hypothyroidism type E03.9 ; Chronic pain syndrome G89.4 ; Polyneuropathy associated with underlying disease G63 and Vitamin D deficiency E55.9 [place] [id number] [place] [address] August, [place] [address] [address] Jul, Plantar fasciitis M72.2 [place] [address] [address] Jul, Trochanteric bursitis, right hip M70.61 [place] [id number] [place] [address] Jul, Hypothyroidism, unspecified hypothyroidism type E03.9 [place] [address] [address] Jul, Hypothyroidism, unspecified hypothyroidism type E03.9 ; Chronic pain syndrome G89.4 and Polyneuropathy associated with underlying disease G63 [place] [address] [address] Jun, Trochanteric bursitis of both hips M70.61 [place] [id number] [place] [address] Jun, Vitamin D deficiency E55.9 ; Osteoporosis M81.0 ; Low back pain M54.5 and Plantar fasciitis M72.2 [place] [id number] [place] [address] May, Vitamin D deficiency E55.9 and Hypothyroidism, unspecified hypothyroidism type E03.9 [place] [id number] [place] [address] May, Acute maxillary sinusitis J01.00 [place] [address] [address] 18 May, 2015 Osteoporosis M81.0 and Hypothyroidism, unspecified hypothyroidism type E03.9 [place] [id number] [place] [address] 16 Feb, 2016 Osteoporosis M81.0 [place] [id number] [place] [address] 15 May, 2015 [place] [id number] [place] [address] Apr, [place] [id number] [place] [address] 07 Apr, 2015 Trochanteric bursitis of both hips M70.61 [place] [id number] [place] [address] 07 Apr, 2015 Hypothyroidism, unspecified hypothyroidism type E03.9 [place] [id number] [place] [address] 05 Apr, 2015 Chronic pain syndrome G89.4 ; Bilateral low back pain with sciatica, sciatica laterality unspecified M54.40 ; Pain in right hip M25.551 ; Pain in left hip M25.552 ; Chronic prescription opiate use Z79.899 ; Primary insomnia F51.01 and Hypothyroidism, unspecified hypothyroidism type E03.9 [place] [id number] [place] [address] 18 Mar, 2015 [place] [id number] [place] [address] 19 Feb, 2015 [place] [id number] [place] [address] 16 Feb, 2015 Chronic pain syndrome G89.4 and Major depression F32.9 [place] [id number] [place] [address] 16 Feb, 2015 Fatigue R53.83 [place] [id number] [place] [address] 13 Feb, 2015 History of fracture Z87.81 [place] [id number] [place] [address] 12 Feb, 2015 Major depression, recurrent F33.9 and Generalized anxiety disorder F41.1 [place] [address] [address] Feb, [facility] [place] [id number] [place] [address] Jan, Hypothyroidism, unspecified hypothyroidism type E03.9 [place] [address] [place] [address] Jan, Abdominal pain R10.9 and Hypothyroidism, unspecified hypothyroidism type E03.9 [place] [id number] [place] [address] Jan, Abdominal pain R10.9 [place] [id number] [place] [address] Jan, Hypothyroidism, unspecified hypothyroidism type E03.9 [place] [id number] [place] [address] Jan, [place] [id number] [place] [address] Jan, 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.419 and Hypothyroidism, unspecified hypothyroidism type E03.9 [place] [address] [place] [address] Jan, 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.419 ; Abdominal pain R10.9 ; Dyspareunia N94.1 ; Encounter for immunization Z23 ; History of fracture Z87.81 ; Fatigue R53.83 ; Throat fullness R68.89 ; Bruises easily R23.8 ; Hot flashes N95.1 ; Depression F32.9 and Vaginal atrophy N95.2 [place] [address] [place] [id number] [place] [phone] Jan, Hypothyroidism, unspecified hypothyroidism type E03.9 [place] [id number] [phone] Jan, Unspecified abdominal pain R10.9 ; Chronic obstructive pulmonary disease, unspecified COPD type J44.9 ; Allergic rhinitis, unspecified allergic rhinitis type J30.9 ; Chronic pain syndrome G89.4 ; Hypothyroidism, unspecified hypothyroidism type E03.9 ; Chest pain, unspecified chest pain type R07.9 and Plantar fasciitis M72.2 [facility] [place] [address] [place] [id number] [place] [phone] Jan, Trochanteric bursitis of both hips M70.61 [facility] [place] [address] [place] [id number] [place] [phone] Dec, [facility] [place] [address] [place] [id number] [place] [phone] Nov, [facility] [place] [address] [place] [id number] [place] [phone] Nov, [facility] [place] [address] [place] [id number] [place] [phone] Nov, Constipation 564.00 [facility] [place] [facility] [id number] [place] [address] Oct, Chronic pain 338.29 and Hypothyroidism 244.9 [facility] [place] [id number] [place] [id number] Oct, [facility] [place] [id number] [place] [id number] Sep, [facility] [place] [id number] [place] [id number] Sep, [facility] [place] [id number] [place] [id number] Sep, [facility] [place] [id number] [place] [id number] Sep, [facility] [place] [id number] [place] [id number] Sep, [facility] [place] [id number] [place] [id number] Sep, [facility] [place] [id number] [address] Sep, COPD exacerbation 491.21 ; Chronic pain 338.29 ; Hypothyroidism 244.9 and Pancytopenia 284.19 [facility] [place] [id number] [address] August, [facility] [id number] [place] [id number] Jul, [facility] [place] [id number] [address] Jul, [facility] [place] [id number] [place] [phone] Jun, [facility] [place] [id number] [address] Jun, [facility] [place] [id number] [place] [phone] Jun, [facility] [place] [id number], [place] [address] Jun, [facility] [place] [id number], [place] [address] Jun, [facility] [place] [id number], [place] [address] May, [facility] [place] [id number] [address] May, [facility] [id number] [address] May, [facility] [id number], [place] [address] May, [facility] [id number] [address] May, [facility] [id number] [place] [address], [place] [address] May, 2014 [facility] [place] [facility] [address] [id number] [place] [address] May, 2014 [facility] [place] [facility] [address] [id number] [place] [address] May, 2014 [facility] [place] [facility] [address] [id number] [place] [address] May, 2014 [facility] [place] [facility] [address] [id number] [place] [address] May, 2014 [facility] [place] [facility] [address] [id number] [place] [address] May, 2014 [facility] [place] [facility] [address] [facility] [id number] [place] [address] May, 2014 [facility] [place] [facility] [id number] [place] [address] May, [facility] [place] [facility] [address] [id number] [place] [address] Apr, [facility] [place] [facility] [address] [facility] [id number] [place] [address] Apr, [facility] [place] [facility] [address] [facility] [id number] [place] [address] Apr, [facility] [place] [facility] [address] [facility] [id number] [place] [address] Apr, [facility] [place] [facility] [address] [id number] [place] [address] Apr, [facility] [place] [facility] [address] [facility] [id number] [place] [address] Apr, [facility] [place] [facility] [address] [facility] [id number] [place] [address] Apr, [facility] [place] [facility] [address] [facility] [id number] [place] [address] Mar, [facility] [place] [facility] [address] [id number] [place] [address] Mar, [facility] [place] [facility] [address] [id number] [place] [address] Mar, [facility] [place] [facility] [address] [id number] [place] [address] Mar, [facility] [place] [facility] [address] [id number] [place] [address] Mar, [facility] [place] [facility] [address] [id number] [place] [address] Mar, [facility] [place] [facility] [address] [id number] [place] [address] Feb, [facility] [place] [facility] [address] [id number] [place] [address] Feb, [facility] [place] [facility] [address] [id number] [place] [address] Feb, [facility] [place] [facility] [address] [id number] [place] [address] Feb, [facility] [place] [facility] [address] [id number] [place] [address] Feb, [facility] [place] [facility] [address] [id number], [place] [address] Feb, [facility] [place] [facility] [address] [id number], [place] [address] Jan, [facility] [place] [facility] [address] [id number] [place] [address] Jan, [facility] [place] [facility] [address] [id number] [place] [address] Jan, [facility] [place] [facility] [address] [id number] [place] [address] Jan, [facility] [place] [facility] [address] [id number] [place] [address] Jan, [facility] [place] [facility] [address] [id number] [place] [address] Jan, [facility] [place] [facility] [address] [id number] [place] [address] Jan, [facility] [place] [facility] [address] [id number] [place] [address] Jan, [facility] [place] [facility] [address] [id number] [place] [address] Dec, [facility] [place] [facility] [address] [id number] [place] [address] Dec, [facility] [place] [facility] [address] [id number] [place] [address] Dec, [facility] [place] [facility] [address] [id number] [place] [address] Dec, [facility] [place] [facility] [address] [id number] [place] [address] Dec, [facility] [place] [facility] [address] [id number] [place] [address] Dec, [facility] [place] [facility] [address] [id number] [place] [address] Dec, [facility] [place] [facility] [address] [id number] [place] [address] Nov, [facility] [place] [facility] [address] [id number] [place] [address] Nov, [facility] [place] [facility] [address] [id number] [place] [address] Oct, [facility] [place] [facility] [address] [id number] [place] [address] Oct, [facility] [place] [facility] [address] [id number] [place] [address] Oct, [facility] [place] [facility] [address] [id number] [place] [address] Oct, [facility] [place] [facility] [address] [id number] [place] [address] Sep, [facility] [place] [facility] [address] [id number] [place] [address] Sep, [facility] [place] [facility] [address] [id number] [place] [address] Sep, [facility] [place] [facility] [address] [id number] [place] [address] Sep, [facility] [place] [facility] [address] [id number] [place] [address] Sep, [facility] [place] [facility] [address] [id number] [place] [address] Sep, [facility] [place] [facility] [address] [id number] [place] [address] Sep, [facility] [place] [facility] [address] [id number] [place] [address] Sep, [facility] [place] [facility] [address] [id number] [place] [address] August, [facility] [place] [facility] [address] [id number] [place] [address] August, [facility] [place] [facility] [address] [id number] [place] [address] August, [facility] [place] [facility] [address] [id number] [place] [address] August, [facility] [place] [facility] [address] [id number] [place] [address] Jul, [facility] [place] [facility] [address] [id number] [place] [address] Jul, [facility] [place] [facility] [address] [id number] [place] [address] 24 Jul, 2013 [facility] [place] [facility] [address] [id number] [place] [address] 24 Jul, 2013 [facility] [place] [facility] [address] [id number] [place] [address] 17 Jul, 2013 [facility] [place] [facility] [address] [id number] [place] [address] 16 Jul, 2013 [facility] [place] [facility] [address] [id number] [place] [address] 15 Jul, 2013 [facility] [place] [facility] [address] [id number] [place] [address] Jul, [facility] [place] [facility] [address] [id number] [place] [address] Jun, [facility] [place] [facility] [address] [id number] [place] [address] Jun, [facility] [place] [facility] [address] [id number] [place] [address] Jun, [facility] [place] [facility] [address] [id number] [place] [address] Jun, [facility] [place] [facility] [address] [id number] [place] [address] Jun, [facility] [place] [facility] [address] [id number] [place] [address] Jun, [facility] [place] [facility] [address] [id number] [place] [address] Jun, [facility] [place] [facility] [address] [id number] [place] [address] Jun, [facility] [place] [facility] [address] [id number] [place] [address] May, [facility] [place] [facility] [address] [id number] [place] [address] May, [facility] [place] [facility] [address] [id number] [place] [address] 17 Apr, 2013 [facility] [address] [id number] [place] [address] Apr, [facility] [address] [id number] [place] [address] Mar, [facility] [address] [id number] [place] [address] Mar, [facility] [address] [id number] [place] [address] Mar, [facility] [address] [id number] [place] [address] Mar, [facility] [address] [id number] [place] [address] Mar, [facility] [address] [id number] [place] [address] Mar, [facility] [address] [id number] [place] [address] Mar, [facility] [address] [id number] [place] [address] Feb, [facility] [address] [id number] [place] [address] Feb, [facility] [address] [id number] [place] [address] Feb, [facility] [address] [id number] [place] [address] Feb, [facility] [place] [facility] [address] [id number] [place] [address] Feb, [facility] [address] [id number] [place] [address] Feb, [facility] [address] [id number] [place] [address] Dec, [facility] [address] [id number] [place] [address] 18 Dec, 2012 [facility] [place] [facility] [address] [id number] [place] [address] Dec, [facility] [place] [facility] [address] [id number] [place] [address] Dec, [facility] [place] [facility] [address] [id number] [place] [address] Dec, [facility] [address] [id number] [place] [address] Nov, [facility] [place] [facility] [address] [id number] [place] [address] Nov, [facility] [place] [facility] [address] [id number] [place] [address] Oct, [facility] [place] [facility] [address] [id number] [place] [address] August, [facility] [place] [facility] [address] [id number] [place] [address] August, [facility] [place] [facility] [address] [id number] [place] [address] August, [facility] [place] [facility] [address] [id number] [place] [address] Jul, [facility] [place] [facility] [address] [id number], [place] [address] Jul, [facility] [place] [facility] [address] [id number] [place] [address] Jul, [facility] [place] [facility] [address] [id number] [place] [address] Jun, [facility] [place] [facility] [address] [id number] [place] [address] Jun, [facility] [place] [facility] [address] [id number], [place] [address] 21 Jun, 2012 [facility] [address] [id number] [place] [address] 20 Jun, 2012 [facility] [place] [facility] [address] [id number] [place] [address] 18 Jun, 2012 [facility] [address] [id number] [place] [address] 15 Jun, 2012 [facility] [place] [facility] [address] [id number] [place] [address] 12 Jun, 2012 [facility] [address] [id number] [place] [address] 18 May, 2012 [facility] [place] [facility] [address] [id number] [place] [address] May, [facility] [address] [id number] [place] [address] 06 May, 2012 [facility] [place] [facility] [address] [id number] [place] [address] 05 May, 2012 [facility] [address] [id number] [place] [address] Apr, [facility] [address] [facility] [id number] [place] [address] Apr, [facility] [address] [id number] [place] [address] Apr, [facility] [place] [facility] [address] [id number] [place] [address] Mar, [facility] [place] [facility] [address] [id number] [place] [address] Mar, [facility] [place] [facility] [address] [id number] [place] [address] Mar, [facility] [address] [id number] [place] [address] Mar, [facility] [place] [facility] [address] [id number] [place] [address] Mar, [facility] [place] [facility] [address] [id number] [place] [address] Mar, [facility] [place] [facility] [address] [id number] [place] [address] Mar, [facility] [place] [facility] [address] [id number] [place] [address], [place] [address] Mar, [facility] [place] [facility] [address] [id number] [place] [address] Feb, [facility] [place] [facility] [address] [id number] [place] [address] Feb, [facility] [place] [facility] [address] [id number] [place] [address] Feb, [facility] [place] [facility] [address] [id number] [place] [address] Jan, [facility] [place] [facility] [address] [id number] [place] [address] Jan, [facility] [place] [facility] [address] [id number] [place] [address] Jan, [facility] [place] [facility] [address] [id number] [place] [address] Jan, [facility] [place] [facility] [address] [id number], [place] [address] Jan, [facility] [place] [facility] [address] [id number] [place] [address] Jan, [facility] [place] [facility] [address] [id number] [place] [address] Jan, [facility] [place] [facility] [address] [id number] [place] [address] Dec, [facility] [place] [facility] [address] [id number] [place] [address] 24 Dec, 2011 [facility] [place] [facility] [address] [id number] [place] [address] Dec, [facility] [place] [facility] [address] [id number] [place] [address] Nov, [facility] [place] [facility] [address] [id number] [place] [address] Nov, [facility] [place] [facility] [address] [id number] [place] [address] Nov, [facility] [place] [facility] [address] [id number] [place] [address] Nov, [facility] [place] [facility] [address] [id number] [place] [address] Oct, [facility] [place] [facility] [address] [id number] [place] [address] Oct, [facility] [place] [facility] [address] [id number] [place] [address] Oct, [facility] [place] [facility] [address] [id number] [place] [address] Sep, [facility] [place] [facility] [address] [id number] [place] [address] Sep, [facility] [place] [facility] [address] [id number] [place] [address] Sep, [facility] [place] [facility] [address] [id number] [place] [address] Sep, [facility] [place] [facility] [address] [id number] [place] [address] Sep, [facility] [place] [facility] [address] [id number] [place] [address] Sep, [facility] [place] [facility] [address] [id number] [place] [address] August, [facility] [place] [facility] [address] [id number] [place] [address] 19 Jul, 2011 [facility] [address] [id number] [place] [address] 18 Jul, 2011 [facility] [place] [facility] [address] [id number] [place] [address] Jul, [facility] [address] [id number] [place] [address] 05 Jul, 2011 [facility] [place] [facility] [address] [id number] [place] [address] 04 Jul, 2011 [facility] [address] [id number] [place] [address] 29 Jun, 2011 [facility] [address] [id number] [place] [address] 27 Jun, 2011 [facility] [address] [id number] [place] [address] 15 Jun, 2011 [facility] [address] [id number] [place] [address] 15 Jun, 2011 [facility] [address] [id number] [place] [address] Jun, [facility] [address] [id number] [place] [address] May, [facility] [place] [facility] [address] [id number] [place] [address] May, [facility] [address] [id number] [place] [address] May, [facility] [place] [facility] [address] [id number] [place] [address] 06 May, 2011 [facility] [place] [facility] [address] [id number] [place] [address] May, [facility] [place] [facility] [address] [id number] [place] [address] 02 May, 2011 [facility] [place] [facility] [address] [id number] [place] [address] May, [facility] [place] [facility] [address] [id number] [place] [address] Apr, [facility] [place] [facility] [address] [id number] [place] [address] 29 Mar, 2011 [facility] [place] [facility] [address] [id number] [place] [address] Mar, [facility] [place] [facility] [address] [id number] [place] [address] Mar, [facility] [place] [facility] [address] [id number] [place] [address] Mar, [facility] [place] [facility] [address] [id number] [place] [address] Mar, [facility] [place] [facility] [address] [id number] [place] [address] 23 Feb, 2011 [facility] [place] [facility] [address] [id number] [address] Feb, [facility] [place] [facility] [address] [id number] [place] [address] 14 Feb, 2011 [facility] [place] [facility] [address] [id number], [place] [address] 14 Feb, 2011 [facility] [place] [facility] [address] [id number], [place] [address] 07 Feb, 2011 [facility] [place] [facility] [address] [id number] [place] [address] Feb, [facility] [place] [facility] [address] [id number], [place] [address] 04 Feb, 2011 [facility] [place] [facility] [address] [facility] [id number][place] [address] 10 Jan, 2011 [facility] [place] [facility] [address] [id number] [place] [address] 12 Dec, 2010 [facility] [address] [id number] [place] [address] 11 Oct, 2010 [facility] [address] [id number] [place] [address] 10 Jun, 2010 [facility] [address] [id number] [place] [address] 23 Mar, 2010 [facility] [address] [id number] [place] [address] 23 Mar, 2010 [facility] [address] [id number] [place] [address] 16 Mar, 2010 [facility] [address] [id number] [place] [address] 16 Mar, 2010 [facility] [address] [id number] [place] [address] 15 Mar, 2010 [facility] [address] [id number] [place] [address] 10 Mar, 2010 [facility] [address] [id number] [place] [address] 10 Mar, 2010 [facility] [address] [facility] [id number] [place] [address] 05 Mar, 2010 [facility] [address] [id number] [place] [address] 03 Mar, 2010 [facility] [address] [id number] [place] [address] Mar, [facility] [address] [id number] [place] [address] Jan, [facility] [address] [id number] [place] [address] Jan, [facility] [address] [id number] [place] [address] Jan, [facility] [place] [address] [id number] [address] Nov, [facility] [place] [id number], [place] [address] Oct, [facility] [place] [address] [id number], [place] [address] Mar, [facility] [place] [id number], [place] [address] Mar, [facility] [place] [id number], [place] [address] Mar, [facility] [place] [id number], [place] [address] Mar, [facility] [place] [id number], [place] [address] Dec, [facility] [place] [id number], [place] [address] August, [facility] [place] [id number], [place] [address] August, [facility] [place] [id number], [place] [address] Jul, [facility] [place] [id number], [place] [address] Jan, [facility] [place] [address] [id number], [place] [address] Jan, IMMUNIZATIONS No Known Immunizations SOCIAL HISTORY Never Assessed REASON FOR VISIT Rx from Lab Results PLAN OF CARE VITAL SIGNS MEDICATIONS Medication Instructions Dosage Frequency Start Date End Date Duration Status Alendronate Sodium 10 MG Orally Once a day 1 tablet 24h Jun, 30 day(s) Active Levothyroxine Sodium 175 MCG Orally Once [...]
--- OUTSIDE RECORDS SUMMARY | 2018-09-22 03:33 | XMS REPORT ---
Author Author FLORENTINEZEKIEL PUCKETT Organization [facility] Address [address] [place] [address] Care Team Providers Care Sustainability Director Name Role Phone DANICA LERMAY Unavailable PROBLEMS Type Condition ICD9-CM Code OXR40-ML Code Onset Dates Condition Status SNOMED Code Problem Chronic gastritis without bleeding, unspecified gastritis type K29.50 Active 1537981 Problem Vitamin D deficiency E55.9 Active 89948450 Problem Osteoporosis M81.0 Active 67319108 Problem Unspecified abdominal pain R10.9 Active 078738287 Problem Fibromyalgia M79.7 Active 25624458 Problem Chronic pain syndrome G89.4 Active 579701843 Problem Trigger point with back pain M54.9 Active 039564720 Problem Chronic tension-type headache, not intractable G44.229 Active 204090746 Problem RUQ abdominal pain R10.11 Active 514729284 Problem Pancytopenia D61.818 Active 161488058 Problem Right sided sciatica M54.31 Active 20139169 Problem Chronic prescription opiate use Z79.891 Active 171472978 Problem Drug induced constipation K59.03 Active 118339554392643 Problem Leukopenia, unspecified type D72.819 Active 01477779 Problem Atrial fibrillation, unspecified type I48.91 Active 68368444 Problem Allergic rhinitis, unspecified allergic rhinitis type J30.9 Active 50709686 Problem Chronic obstructive pulmonary disease, unspecified COPD type J44.9 Active 36329294 Problem Hypothyroidism, unspecified hypothyroidism type E03.9 Active 51146092 Problem Other constipation K59.09 Active 786152135 Problem Porokeratosis Q82.8 Active 306440196 Problem 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 Active 073475630 Problem Allergy to intravenous contrast Z91.041 Active 917565898 Problem Vaginal atrophy N95.2 Active 258564623 Problem Major depression, recurrent F33.9 Active 51247904 Problem History of hepatitis C Z86.19 Active 63833130696528 Problem Hot flashes N95.1 Active 963819836 Problem Plantar fasciitis M72.2 Active 353897319 Problem Polyneuropathy associated with underlying disease G63 Active 217444341 Problem Primary insomnia F51.01 Active 5230801 Problem Low back pain M54.5 Active 631349309 ALLERGIES No Information ENCOUNTERS Encounter Location Date Diagnosis [facility] [id number] [place] [address] August, Somatic dysfunction of lumbar region M99.03 and Somatic dysfunction of pelvis region M99.05 [facility] [id number] [place] [address] August, Chronic pain syndrome G89.4 [facility] [id number] [place] [address] Jul, Trochanteric bursitis of left hip M70.62 and Trochanteric bursitis, right hip M70.61 [facility] [id number] [place] [address] Jul, [facility] [id number] [place] [address] Jul, Chronic pain syndrome G89.4 [facility] [id number] [place] [address] Jul, Hypothyroidism, unspecified hypothyroidism type E03.9 [facility] [address] [place] [address] Jul, Hypothyroidism, unspecified hypothyroidism type E03.9 [facility] [address] [place] [address] Jul, Chronic tension-type headache, not intractable G44.229 ; Atrial fibrillation, unspecified type I48.91 ; Chronic pain syndrome G89.4 ; Hypothyroidism, unspecified hypothyroidism type E03.9 ; Pancytopenia D61.818 ; History of hepatitis C Z86.19 ; Vaginal atrophy N95.2 ; RUQ abdominal pain R10.11 ; Chronic prescription opiate use Z79.891 ; Osteoporosis M81.0 and Screening for breast cancer Z12.31 [facility] [address] [address] Jun, [facility] [address] [address] May, [facility] [address] [address] May, [facility] [id number] [place] [address] May, [facility] [id number] [place] [address] Apr, [facility] [id number] [place] [address] Apr, Hypothyroidism, unspecified hypothyroidism type E03.9 [facility] [address] [place] [address] Apr, Hypothyroidism, unspecified hypothyroidism type E03.9 and Leukopenia, unspecified type D72.819 [facility] [address] [place] [address] Mar, [facility] [address] [address] Mar, Leukopenia, unspecified type D72.819 [facility] [address] [address] Mar, Hypothyroidism, unspecified hypothyroidism type E03.9 and Low hemoglobin D64.9 [facility] [address] [address] Mar, Hypothyroidism, unspecified hypothyroidism type E03.9 [facility] [address] [address] Mar, Osteoporosis M81.0 ; Low hemoglobin D64.9 and Hypothyroidism, unspecified hypothyroidism type E03.9 [facility] [address] [address] Mar, Hypothyroidism, unspecified hypothyroidism type E03.9 ; Bilirubin in urine R82.2 and Pancytopenia D61.818 [facility] [address] [address] Feb, [facility] [address] [address] Feb, Cough R05 and Bronchitis J40 [facility] [address] [address] 14 Feb, 2017 Other viral agents as the cause of diseases classified elsewhere B97.89 and Acute upper respiratory infection, unspecified J06.[address] [address] Feb, Fibromyalgia M79.7 ; Chronic pain syndrome G89.4 ; Hypothyroidism, unspecified hypothyroidism type E03.9 ; Primary insomnia F51.01 ; Osteoporosis M81.0 ; Vision abnormalities H53.9 ; Pancytopenia D61.818 ; BMI 28.0-28.9,adult Z68.28 and Encounter for immunization Z23 [address] [address] Feb, Neuroma D36.10 and Capsulitis of right foot M77.[address] [address] Feb, [address] [address] Feb, Hypothyroidism, unspecified hypothyroidism type E03.[address] [address] Jan, [address] [address] Jan, Atrial fibrillation, unspecified type I48.[address] [address] Jan, [facility] [id number] [place] [address] Jan, Fibromyalgia M79.7 ; Atrial fibrillation, unspecified type I48.91 ; Pain of left hand M79.642 ; Pain in right hand M79.641 ; Chronic prescription opiate use Z79.891 ; Chronic pain syndrome G89.4 ; Elevated fasting glucose R73.01 and Hypothyroidism, unspecified hypothyroidism type E03.9 [facility] [id number] [place] [address] Jan, [facility] [address] [address] Dec, Trochanteric bursitis of both hips M70.61 [facility] [id number] [place] [address] Dec, [facility] [address] [address] Dec, [facility] [id number] [place] [address] Nov, [facility] [id number] [place] [address] Nov, Unilateral headache R51 [facility] [id number] [place] [address] Nov, [facility] [id number] [place] [address] Oct, Unilateral headache R51 ; 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 and Allergy to intravenous contrast Z91.041 [facility] [address] [address] Oct, [facility] [id number] [place] [address] Oct, [facility] [address] [address] Sep, Hypothyroidism, unspecified hypothyroidism type E03.9 [facility] [id number] [place] [address] Sep, Hypothyroidism, unspecified hypothyroidism type E03.9 and Bilirubin in urine R82.2 [facility] [address] [address] Sep, Trochanteric bursitis of both hips M70.61 [facility] [address] [address] Sep, Hypothyroidism, unspecified hypothyroidism type E03.9 ; Dysuria R30.0 ; Chronic tension-type headache, not intractable G44.229 and Drug induced constipation K59.03 [facility] [address] [address] Sep, [place] [address] [address] Sep, [facility] [address] [address] August, [facility] [address] [address] Jul, [place] [address] [address] Jul, Trochanteric bursitis of right hip M70.61 [facility] [address] [address] Jul, Hypothyroidism, unspecified hypothyroidism type E03.9 [facility] [address] [address] Jul, Fibromyalgia M79.7 ; Chronic pain syndrome G89.4 ; Hypothyroidism, unspecified hypothyroidism type E03.9 and Other constipation K59.09 [facility] [id number] [place] [address] Jun, Swollen tonsil J35.1 and Strep throat J02.0 [facility] [id number] [place] [address] Jun, [facility] [address] [address] Jun, Acute maxillary sinusitis J01.00 [facility] [id number] [place] [address] Jun, Hypothyroidism, unspecified hypothyroidism type E03.9 [facility] [id number] [place] [address] Jun, Chronic pain syndrome G89.4 ; Fibromyalgia M79.7 ; Hypothyroidism, unspecified hypothyroidism type E03.9 and Chronic prescription opiate use Z79.891 [facility] [id number] [place] [address] May, [facility] [address] [address] Apr, Hypothyroidism, unspecified hypothyroidism type E03.9 [facility] [id number] [place] [address] Apr, [facility] [id number] [place] [address] Apr, Lipid screening Z13.220 and Hypothyroidism, unspecified hypothyroidism type E03.9 [facility] [id number] [place] [address] Apr, [facility] [id number] [place] [address] Mar, Trochanteric bursitis of both hips M70.61 [facility] [id number] [place] [address] Mar, [facility] [id number] [place] [address] Mar, Plantar fasciitis M72.2 and Porokeratosis Q82.8 [facility] [id number] [place] [address] Feb, Lipid screening Z13.220 ; Vitamin D deficiency E55.9 and Hypothyroidism, unspecified hypothyroidism type E03.9 [facility] [id number] [place] [address] 16 Feb, 2016 Chronic pain syndrome G89.4 ; Hypothyroidism, unspecified hypothyroidism type E03.9 ; Pancytopenia D61.818 ; Vaginal atrophy N95.2 ; Chronic gastritis without bleeding, unspecified gastritis type K29.50 ; Vitamin D deficiency E55.9 ; Chronic prescription opiate use Z79.891 ; Adverse effect of other opioids, initial encounter T40.2X5A ; Drug induced constipation K59.03 ; Lipid screening Z13.220 and Encounter for immunization Z23 [facility] [place] [address] [address] Feb, [facility] [address] [address] Feb, Ingrown toenail L60.0 [facility] [address] [address] Jan, [facility] [address] [address] Jan, Trochanteric bursitis of both hips M70.61 [facility] [address] [address] Jan, [facility] [address] [address] Jan, [facility] [address] [address] Jan, [facility] [id number] [place] [address] Jan, Right sided sciatica M54.31 [facility] [address] [address] Dec, Onychomycosis B35.1 [facility] [id number] [place] [address] Dec, [facility] [id number] [place] [address] Dec, [facility] [id number] [place] [address] Dec, [facility] [id number] [place] [address] Dec, Osteoarthritis of right hip, unspecified osteoarthritis type M16.11 and Bursitis of right hip M70.71 [facility] [id number] [place] [address] Nov, [facility] [id number] [place] [address] Nov, [facility] [id number] [place] [address] Nov, [facility] [id number] [place] [address] Nov, Hypothyroidism, unspecified hypothyroidism type E03.9 ; Vitamin D deficiency E55.9 and History of hepatitis C Z86.19 [facility] [id number] [place] [address] Nov, Right upper quadrant pain R10.11 ; History of hepatitis C Z86.19 and Low back pain M54.5 [facility] [id number] [place] [address] Oct, Trochanteric bursitis, right hip M70.61 [facility] [id number] [place] [address] Oct, [facility] [id number] [place] [address] Oct, [facility] [address] [place] [address] 21 Oct, 2015 Trochanteric bursitis of both hips M70.61 and Right sided sciatica M54.31 [facility] [id number] [place] [address] 20 Oct, 2015 Trochanteric bursitis of both hips M70.61 [facility] [id number] [place] [address] 14 Oct, 2015 RUQ abdominal pain R10.11 [facility] [id number] [place] [address] 13 Oct, 2015 Sciatic leg pain M54.30 [facility] [id number] [place] [address] Oct, RUQ abdominal pain R10.11 [facility] [address] [address] 07 Oct, 2015 RUQ abdominal pain R10.11 ; History of hepatitis C Z86.19 and Trigger point with back pain M54.9 [facility] [id number] [place] [address] Sep, [facility] [id number] [place] [address] 09 Sep, 2015 Right sided sciatica M54.31 [facility] [id number] [place] [address] Sep, Hypothyroidism, unspecified hypothyroidism type E03.9 and Vitamin D deficiency E55.9 [facility] [id number] [place] [address] Sep, Plantar fasciitis M72.2 and Porokeratosis Q82.8 [facility] [id number] [place] [address] Sep, Hypothyroidism, unspecified hypothyroidism type E03.9 ; Chronic pain syndrome G89.4 ; Polyneuropathy associated with underlying disease G63 and Vitamin D deficiency E55.9 [facility] [id number] [place] [address] August, [facility] [address] [address] Jul, Plantar fasciitis M72.2 [facility] [address] [address] Jul, Trochanteric bursitis, right hip M70.61 [facility] [id number] [place] [address] Jul, Hypothyroidism, unspecified hypothyroidism type E03.9 [facility] [address] [address] Jul, Hypothyroidism, unspecified hypothyroidism type E03.9 ; Chronic pain syndrome G89.4 and Polyneuropathy associated with underlying disease G63 [facility] [place] [address] [address] Jun, Trochanteric bursitis of both hips M70.61 [facility] [id number] [place] [address] Jun, Vitamin D deficiency E55.9 ; Osteoporosis M81.0 ; Low back pain M54.5 and Plantar fasciitis M72.2 [facility] [id number] [place] [address] May, Vitamin D deficiency E55.9 and Hypothyroidism, unspecified hypothyroidism type E03.9 [facility] [id number] [place] [address] May, Acute maxillary sinusitis J01.00 [facility] [address] [address] 18 May, 2015 Osteoporosis M81.0 and Hypothyroidism, unspecified hypothyroidism type E03.9 [facility] [id number] [place] [address] 16 Feb, 2016 Osteoporosis M81.0 [facility] [id number] [place] [address] 15 May, 2015 [facility] [place] [id number] [place] [address] Apr, [facility] [id number] [place] [address] 07 Apr, 2015 Trochanteric bursitis of both hips M70.61 [facility] [id number] [place] [address] 07 Apr, 2015 Hypothyroidism, unspecified hypothyroidism type E03.9 [facility] [id number] [place] [address] 05 Apr, 2015 Chronic pain syndrome G89.4 ; Bilateral low back pain with sciatica, sciatica laterality unspecified M54.40 ; Pain in right hip M25.551 ; Pain in left hip M25.552 ; Chronic prescription opiate use Z79.899 ; Primary insomnia F51.01 and Hypothyroidism, unspecified hypothyroidism type E03.9 [facility] [id number] [place] [address] 18 Mar, 2015 [facility] [place] [id number] [place] [address] 19 Feb, 2015 [facility] [place] [id number] [place] [address] 16 Feb, 2015 Chronic pain syndrome G89.4 and Major depression F32.9 [facility] [id number] [place] [address] 16 Feb, 2015 Fatigue R53.83 [facility] [id number] [place] [address] 13 Feb, 2015 History of fracture Z87.81 [facility] [id number] [place] [address] 12 Feb, 2015 Major depression, recurrent F33.9 and Generalized anxiety disorder F41.1 [facility] [address] [address] Feb, [facility] [id number] [place] [address] Jan, Hypothyroidism, unspecified hypothyroidism type E03.9 [facility] [id number] [place] [address] Jan, Abdominal pain R10.9 and Hypothyroidism, unspecified hypothyroidism type E03.9 [facility] [id number] [place] [address] Jan, Abdominal pain R10.9 [facility] [id number] [place] [address] Jan, Hypothyroidism, unspecified hypothyroidism type E03.9 [facility] [id number] [place] [address] Jan, [facility] [id number] [place] [address] Jan, 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) w/o 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 Z01.419 and Hypothyroidism, unspecified hypothyroidism type E03.9 [facility] [address] [place] [address] Jan, 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) w/o 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 Z01.419 ; Abdominal pain R10.9 ; Dyspareunia N94.1 ; Encounter for immunization Z23 ; History of fracture Z87.81 ; Fatigue R53.83 ; Throat fullness R68.89 ; Bruises easily R23.8 ; Hot flashes N95.1 ; Depression F32.9 and Vaginal atrophy N95.2 [facility] [id number] [place] [address] Jan, Hypothyroidism, unspecified hypothyroidism type E03.9 [facility] [address] [address] Jan, Unspecified abdominal pain R10.9 ; Chronic obstructive pulmonary disease, unspecified COPD type J44.9 ; Allergic rhinitis, unspecified allergic rhinitis type J30.9 ; Chronic pain syndrome G89.4 ; Hypothyroidism, unspecified hypothyroidism type E03.9 ; Chest pain, unspecified chest pain type R07.9 and Plantar fasciitis M72.2 [facility] [id number] [place] [address] Jan, Trochanteric bursitis of both hips M70.61 [facility] [id number] [place] [address] Dec, [facility] [id number] [place] [address] Nov, [facility] [id number] [place] [address] Nov, [facility] [id number] [place] [address] Nov, Constipation 564.00 [facility] [id number] [place] [address] Oct, Chronic pain 338.29 and Hypothyroidism 244.9 [facility] [id number] [place] [phone] Oct, [facility] [id number] [place] [phone] Sep, [facility] [id number] [place] [phone] Sep, [facility] [id number] [place] [phone] Sep, [facility] [id number] [place] [phone] Sep, [facility] [id number] [place] [phone] Sep, [facility] [id number] [place] [phone] Sep, [facility] [address] [address] Sep, COPD exacerbation 491.21 ; Chronic pain 338.29 ; Hypothyroidism 244.9 and Pancytopenia 284.19 [facility] [place] [address] [address] August, [facility] [id number] [place] [phone] Jul, [facility] [id number] [address] Jul, [facility] [facility] [id number] [place] [address] Jun, [facility] [id number] [address] Jun, [facility] [id number] [place] [address] Jun, [facility] [id number] [address] Jun, [facility] [id number] [address] Jun, [facility] [id number] [address] May, [facility] [id number] [address] May, [facility] [id number] [address] May, [facility] [id number] [address] May, [facility] [id number] [address] May, [facility] [id number] [place] [address], [place] [address] May, 2014 [facility] [place] [facility] [address] [id number] [place] [address] May, 2014 [facility] [place] [facility] [address] [id number] [place] [address] May, 2014 [facility] [place] [facility] [address] [id number] [place] [address] May, 2014 [facility] [place] [facility] [address] [id number] [place] [address] May, 2014 [facility] [place] [facility] [address] [id number] [place] [address] May, 2014 [facility] [place] [facility] [address] [facility] [id number] [place] [address] May, 2014 [facility] [place] [facility] [id number] [address] May, [facility] [place] [facility] [address] [id number] [place] [address] Apr, [facility] [place] [facility] [address] [facility] [id number] [place] [address] Apr, [facility] [place] [facility] [address] [facility] [id number] [place] [address] Apr, [facility] [place] [facility] [address] [facility] [id number] [place] [address] Apr, [facility] [place] [facility] [address] [id number] [place] [address] Apr, [facility] [place] [facility] [address] [facility] [id number] [place] [address] Apr, [facility] [place] [facility] [address] [facility] [id number] [place] [address] Apr, [facility] [place] [facility] [address] [facility] [id number] [place] [address] Mar, [facility] [place] [facility] [address] [id number] [place] [address] Mar, [facility] [place] [facility] [address] [id number] [place] [address] Mar, [facility] [place] [facility] [address] [id number] [place] [address] Mar, [facility] [place] [facility] [address] [id number] [place] [address] Mar, [facility] [place] [facility] [address] [id number] [place] [address] Mar, [facility] [place] [facility] [address] [id number] [place] [address] Feb, [facility] [place] [facility] [address] [id number] [place] [address] Feb, [facility] [place] [facility] [address] [id number] [place] [address] Feb, [facility] [place] [facility] [address] [id number] [place] [address] Feb, [facility] [place] [facility] [address] [id number] [place] [address] Feb, [facility] [place] [facility] [address] [id number] [address] Feb, [facility] [place] [facility] [address] [id number] [place] [address] Jan, [facility] [place] [facility] [address] [id number] [place] [address] Jan, [facility] [place] [facility] [address] [id number] [place] [address] Jan, [facility] [place] [facility] [address] [id number] [place] [address] Jan, [facility] [place] [facility] [address] [id number] [place] [address] Jan, [facility] [place] [facility] [address] [id number] [place] [address] Jan, [facility] [place] [facility] [address] [id number] [place] [address] Jan, [facility] [place] [facility] [address] [id number] [place] [address] Jan, [facility] [place] [facility] [address] [id number] [place] [address] Dec, [facility] [place] [facility] [address] [id number] [place] [address] Dec, [facility] [place] [facility] [address] [id number] [place] [address] Dec, [facility] [place] [facility] [address] [id number] [place] [address] Dec, [facility] [place] [facility] [address] [id number] [place] [address] Dec, [facility] [place] [facility] [address] [id number] [place] [address] Dec, [facility] [place] [facility] [address] [id number] [place] [address] Dec, [facility] [place] [facility] [address] [id number] [place] [address] Nov, [facility] [place] [facility] [address] [id number] [place] [address] Nov, [facility] [place] [facility] [address] [id number] [place] [address] Oct, [facility] [place] [facility] [address] [id number] [place] [address] Oct, [facility] [place] [facility] [address] [id number] [place] [address] Oct, [facility] [place] [facility] [address] [id number] [place] [address] Oct, [facility] [place] [facility] [address] [id number] [place] [address] Sep, [facility] [place] [facility] [address] [id number] [place] [address] Sep, [facility] [place] [facility] [address] [id number] [place] [address] Sep, [facility] [place] [facility] [address] [id number] [place] [address] Sep, [facility] [place] [facility] [address] [id number] [place] [address] Sep, [facility] [place] [facility] [address] [id number] [place] [address] Sep, [facility] [place] [facility] [address] [id number] [place] [address] Sep, [facility] [place] [facility] [address] [id number] [place] [address] Sep, [facility] [place] [facility] [address] [id number] [place] [address] August, [facility] [place] [facility] [address] [id number] [place] [address] August, [facility] [place] [facility] [address] [id number] [place] [address] August, [facility] [place] [facility] [address] [id number] [place] [address] August, [facility] [place] [facility] [address] [id number] [place] [address] Jul, [facility] [place] [facility] [address] [id number] [place] [address] Jul, [facility] [place] [facility] [address] [id number] [place] [address] 24 Jul, 2013 [facility] [place] [facility] [address] [id number] [place] [address] 24 Jul, 2013 [facility] [place] [facility] [address] [id number] [place] [address] 17 Jul, 2013 [facility] [place] [facility] [address] [id number] [place] [address] 16 Jul, 2013 [facility] [place] [facility] [address] [id number] [place] [address] 15 Jul, 2013 [facility] [place] [facility] [address] [id number] [place] [address] Jul, [facility] [place] [facility] [address] [id number] [place] [address] Jun, [facility] [place] [facility] [address] [id number] [place] [address] Jun, [facility] [place] [facility] [address] [id number] [place] [address] Jun, [facility] [place] [facility] [address] [id number] [place] [address] Jun, [facility] [place] [facility] [address] [id number] [place] [address] Jun, [facility] [place] [facility] [address] [id number] [place] [address] Jun, [facility] [place] [facility] [address] [id number] [place] [address] Jun, [facility] [place] [facility] [address] [id number] [place] [address] Jun, [facility] [place] [facility] [address] [id number] [place] [address] May, [facility] [place] [facility] [address] [id number] [place] [address] May, [facility] [place] [facility] [address] [id number] [place] [address] 17 Apr, 2013 [facility] [address] [id number] [place] [address] Apr, [facility] [address] [id number] [place] [address] Mar, [facility] [address] [id number] [place] [address] Mar, [facility] [address] [id number] [place] [address] Mar, [facility] [address] [id number] [place] [address] Mar, [facility] [address] [id number] [place] [address] Mar, [facility] [address] [id number] [place] [address] Mar, [facility] [address] [id number] [place] [address] Mar, [facility] [address] [id number] [place] [address] Feb, [facility] [address] [id number] [place] [address] Feb, [facility] [address] [id number] [place] [address] Feb, [facility] [address] [id number] [place] [address] Feb, [facility] [place] [facility] [address] [id number] [place] [address] Feb, [facility] [address] [id number] [place] [address] Feb, [facility] [address] [id number] [place] [address] Dec, [facility] [address] [id number] [place] [address] 18 Dec, 2012 [facility] [place] [facility] [address] [id number] [place] [address] Dec, [facility] [place] [facility] [address] [id number] [place] [address] Dec, [facility] [place] [facility] [address] [id number] [place] [address] Dec, [facility] [address] [id number] [place] [address] Nov, [facility] [place] [facility] [address] [id number] [place] [address] Nov, [facility] [place] [facility] [address] [id number] [place] [address] Oct, [facility] [place] [facility] [address] [id number] [place] [address] August, [facility] [place] [facility] [address] [id number] [place] [address] August, [facility] [place] [facility] [address] [id number] [place] [address] August, [facility] [place] [facility] [address] [id number] [place] [address] Jul, [facility] [place] [facility] [address] [id number] [place] [address] Jul, [facility] [place] [facility] [address] [id number] [place] [address] Jul, [facility] [place] [facility] [address] [id number] [place] [address] Jun, [facility] [place] [facility] [address] [id number] [place] [address] Jun, [facility] [place] [facility] [address] [id number] [place] [address] 21 Jun, 2012 [facility] [address] [id number] [place] [address] 20 Jun, 2012 [facility] [place] [facility] [address] [id number] [place] [address] 18 Jun, 2012 [facility] [address] [id number] [place] [address] 15 Jun, 2012 [facility] [place] [facility] [address] [id number] [place] [address] 12 Jun, 2012 [facility] [address] [id number] [place] [address] 18 May, 2012 [facility] [place] [facility] [address] [id number] [place] [address] May, [facility] [address] [id number] [place] [address] 06 May, 2012 [facility] [place] [facility] [address] [id number] [place] [address] 05 May, 2012 [facility] [address] [id number] [place] [address] Apr, [facility] [address] [facility] [id number] [place] [address] Apr, [facility] [address] [id number] [place] [address] Apr, [facility] [place] [facility] [address] [id number] [place] [address] Mar, [facility] [place] [facility] [address] [id number] [place] [address] Mar, [facility] [place] [facility] [address] [id number] [place] [address] Mar, [facility] [address] [id number] [place] [address] Mar, [facility] [place] [facility] [address] [id number] [place] [address] Mar, [facility] [place] [facility] [address] [id number] [place] [address] Mar, [facility] [place] [facility] [address] [id number] [place] [address] Mar, [facility] [place] [facility] [id number] [place] [address], [place] [address] Mar, [facility] [place] [facility] [address] [id number] [place] [address] Feb, [facility] [place] [facility] [address] [id number] [place] [address] Feb, [facility] [place] [facility] [address] [id number] [place] [address] Feb, [facility] [place] [facility] [address] [id number] [place] [address] Jan, [facility] [place] [facility] [address] [id number] [place] [address] Jan, [facility] [place] [facility] [address] [id number] [place] [address] Jan, [facility] [place] [facility] [address] [id number] [place] [address] Jan, [facility] [place] [facility] [address] [id number] [place] [address] Jan, [facility] [place] [facility] [address] [id number] [place] [address] Jan, [facility] [place] [facility] [address] [id number] [place] [address] Jan, [facility] [place] [facility] [address] [id number] [place] [address] Dec, [facility] [place] [facility] [address] [id number] [place] [address] 24 Dec, 2011 [facility] [place] [facility] [address] [id number] [place] [address] Dec, [facility] [place] [facility] [address] [id number] [place] [address] Nov, [facility] [place] [facility] [address] [id number] [place] [address] Nov, [facility] [place] [facility] [address] [id number] [place] [address] Nov, [facility] [place] [facility] [address] [id number] [place] [address] Nov, [facility] [place] [facility] [address] [id number] [place] [address] Oct, [facility] [place] [facility] [address] [id number] [place] [address] Oct, [facility] [place] [facility] [address] [id number] [place] [address] Oct, [facility] [place] [facility] [address] [id number] [place] [address] Sep, [facility] [place] [facility] [address] [id number] [place] [address] Sep, [facility] [place] [facility] [address] [id number] [place] [address] Sep, [facility] [place] [facility] [address] [id number] [place] [address] Sep, [facility] [place] [facility] [address] [id number] [place] [address] Sep, [facility] [place] [facility] [address] [id number] [place] [address] Sep, [facility] [place] [facility] [address] [id number] [place] [address] August, [facility] [place] [facility] [address] [id number] [place] [address] 19 Jul, 2011 [facility] [address] [id number] [place] [address] 18 Jul, 2011 [facility] [place] [facility] [address] [id number] [place] [address] Jul, [facility] [address] [id number] [place] [address] 05 Jul, 2011 [facility] [place] [facility] [address] [id number] [place] [address] 04 Jul, 2011 [facility] [address] [id number] [place] [address] 29 Jun, 2011 [facility] [address] [id number] [place] [address] 27 Jun, 2011 [facility] [address] [id number] [place] [address] 15 Jun, 2011 [facility] [address] [id number] [place] [address] 15 Jun, 2011 [facility] [address] [id number] [place] [address] Jun, [facility] [address] [id number] [place] [address] May, [facility] [place] [facility] [address] [id number] [place] [address] May, [facility] [address] [id number] [place] [address] May, [facility] [place] [facility] [address] [id number] [place] [address] 06 May, 2011 [facility] [place] [facility] [address] [id number] [place] [address] May, [facility] [place] [facility] [address] [id number] [place] [address] 02 May, 2011 [facility] [place] [facility] [address] [id number] [place] [address] May, [facility] [place] [facility] [address] [id number] [place] [address] Apr, [facility] [place] [facility] [address] [id number] [place] [address] 29 Mar, 2011 [facility] [place] [facility] [address] [id number] [place] [address] Mar, [facility] [place] [facility] [address] [id number] [place] [address] Mar, [facility] [place] [facility] [address] [id number] [place] [address] Mar, [facility] [place] [facility] [address] [id number] [place] [address] Mar, [facility] [place] [facility] [address] [id number] [place] [address] 23 Feb, 2011 [facility] [place] [facility] [address] [id number] [place] [address] Feb, [facility] [place] [facility] [address] [id number] [place] [address] 14 Feb, 2011 [facility] [place] [facility] [address] [id number] [place] [address] 14 Feb, 2011 [facility] [place] [facility] [address] [id number] [place] [address] 07 Feb, 2011 [facility] [place] [facility] [address] [id number] [place] [address] Feb, [facility] [place] [facility] [address] [id number] [place] [address] 04 Feb, 2011 [facility] [place] [facility] [address] [facility] [id number] [place] [address] 10 Jan, 2011 [facility] [place] [facility] [address] [id number] [place] [address] 12 Dec, 2010 [facility] [address] [id number] [place] [address] 11 Oct, 2010 [facility] [address] [id number] [place] [address] 10 Jun, 2010 [facility] [address] [id number] [place] [address] 23 Mar, 2010 [facility] [address] [id number] [place] [address] 23 Mar, 2010 [facility] [address] [id number] [place] [address] 16 Mar, 2010 [facility] [address] [id number] [place] [address] 16 Mar, 2010 [facility] [address] [id number] [place] [address] 15 Mar, 2010 [facility] [address] [id number] [place] [address] 10 Mar, 2010 [facility] [address] [id number] [place] [address] 10 Mar, 2010 [facility] [address] [facility] [id number] [place] [address] 05 Mar, 2010 [facility] [address] [id number] [place] [address] 03 Mar, 2010 [facility] [address] [id number] [place] [address] Mar, [facility] [address] [id number] [place] [address] Jan, [facility] [address] [id number] [place] [address] Jan, [facility] [address] [id number] [place] [address] Jan, [facility] [id number] [address] Nov, [facility] [id number] [place] [address] Oct, [facility] [id number] [address] Mar, [facility] [id number] [place] [address] Mar, [facility] [id number] [place] [address] Mar, [facility] [id number] [place] [address] Mar, [facility] [address] [place] [address] Dec, [facility] [id number] [place] [address] August, [facility] [id number] [place] [address] August, [facility] [address] [place] [address] Jul, [facility] [id number] [address] Jan, [facility] [id number] [address] Jan, IMMUNIZATIONS No Known Immunizations SOCIAL HISTORY [...]
--- OUTSIDE RECORDS SUMMARY | 2018-09-22 03:33 | XMS REPORT ---
Author Author FLORENTINEZEKIEL PUCKETT [facility] Address [address] [place] [address] Care Team Providers [employer] Name Role Phone DANICA LERMAY Unavailable PROBLEMS Type Condition ICD9-CM Code XTM98-AM Code Onset Dates Condition Status SNOMED Code Problem Chronic gastritis without bleeding, unspecified gastritis type K29.50 Active 6314827 Problem Vitamin D deficiency E55.9 Active 83162241 Problem Osteoporosis M81.0 Active 30987399 Problem Unspecified abdominal pain R10.9 Active 820373789 Problem Plantar fasciitis M72.2 Active 760984101 Problem Fibromyalgia M79.7 Active 11488411 Problem Polyneuropathy associated with underlying disease G63 Active 769442590 Problem Chronic pain syndrome G89.4 Active 741635030 Problem Trigger point with back pain M54.9 Active 518711261 Problem Right sided sciatica M54.31 Active 47384382 Problem RUQ abdominal pain R10.11 Active 795197020 Problem 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 Active 764196980 Problem Allergy to intravenous contrast Z91.041 Active 405109151 Problem Hypothyroidism, unspecified hypothyroidism type E03.9 Active 36913827 Problem Pancytopenia D61.818 Active 937021914 Problem Chronic tension-type headache, not intractable G44.229 Active 407579123 Problem Chronic prescription opiate use Z79.891 Active 475355762 Problem Drug induced constipation K59.03 Active [id number] Problem Other constipation K59.09 Active 629145463 Problem Porokeratosis Q82.8 Active 537866061 Problem History of hepatitis C Z86.19 Active 96501156442976 Problem Hot flashes N95.1 Active 260861930 Problem Chronic obstructive pulmonary disease, unspecified COPD type J44.9 Active 48992178 Problem Allergic rhinitis, unspecified allergic rhinitis type J30.9 Active 75042381 Problem Primary insomnia F51.01 Active 5447618 Problem Low back pain M54.5 Active 608553462 Problem Vaginal atrophy N95.2 Active 550365956 Problem Major depression, recurrent F33.9 Active 37975838 ALLERGIES No Information SOCIAL HISTORY Never Assessed PLAN OF CARE VITAL SIGNS MEDICATIONS Medication Instructions Dosage Frequency Start Date End Date Duration Status Flonase 50 MCG/ACT Nasally Once a day 1 spray in each nostril 24h Sep, Active RESULTS No Results PROCEDURES No [...]
--- OUTSIDE RECORDS SUMMARY | 2018-09-22 03:35 | XMS REPORT ---
Author Author FLORENTINEZEKIEL PUCKETT Organization [facility] Address [address] [place] [address] Care Team Providers Care Water Pollution Control Technician Name Role Phone DANICA LERMAY Unavailable PROBLEMS Type Condition ICD9-CM Code IVS47-IP Code Onset Dates Condition Status SNOMED Code Problem Chronic gastritis without bleeding, unspecified gastritis type K29.50 Active 9317842 Problem Vitamin D deficiency E55.9 Active 76793337 Problem Osteoporosis M81.0 Active 51810079 Problem Unspecified abdominal pain R10.9 Active 166742105 Problem Fibromyalgia M79.7 Active 36281052 Problem Chronic pain syndrome G89.4 Active 771945900 Problem Trigger point with back pain M54.9 Active 598012203 Problem Chronic tension-type headache, not intractable G44.229 Active 741569948 Problem RUQ abdominal pain R10.11 Active 174688718 Problem Pancytopenia D61.818 Active 604097518 Problem Right sided sciatica M54.31 Active 22452312 Problem Chronic prescription opiate use Z79.891 Active 300111578 Problem Drug induced constipation K59.03 Active 852391793375378 Problem Leukopenia, unspecified type D72.819 Active 82229330 Problem Atrial fibrillation, unspecified type I48.91 Active 10750009 Problem Allergic rhinitis, unspecified allergic rhinitis type J30.9 Active 74751163 Problem Chronic obstructive pulmonary disease, unspecified COPD type J44.9 Active 89183206 Problem Hypothyroidism, unspecified hypothyroidism type E03.9 Active 77623754 Problem Other constipation K59.09 Active 695368432 Problem Porokeratosis Q82.8 Active 660151348 Problem 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 Active 429955558 Problem Allergy to intravenous contrast Z91.041 Active 218016990 Problem Vaginal atrophy N95.2 Active 041599601 Problem Major depression, recurrent F33.9 Active 88761817 Problem History of hepatitis C Z86.19 Active 18348772658807 Problem Hot flashes N95.1 Active 202430733 Problem Plantar fasciitis M72.2 Active 175342828 Problem Polyneuropathy associated with underlying disease G63 Active 049339076 Problem Primary insomnia F51.01 Active 7001545 Problem Low back pain M54.5 Active 389847772 ALLERGIES No Information ENCOUNTERS Encounter Location Date Diagnosis [place] [id number] [place] [address] Oct, [place] [id number] [place] [address] August, Somatic dysfunction of lumbar region M99.03 and Somatic dysfunction of pelvis region M99.05 [place] [address] [address] August, Chronic pain syndrome G89.4 [place] [address] [address] Jul, Trochanteric bursitis of left hip M70.62 and Trochanteric bursitis, right hip M70.61 [place] [id number] [place] [address] Jul, [place] [id number] [place] [address] Jul, Chronic pain syndrome G89.4 [place] [id number] [place] [address] Jul, Hypothyroidism, unspecified hypothyroidism type E03.9 [place] [id number] [place] [address] Jul, Hypothyroidism, unspecified hypothyroidism type E03.9 [place] [id number] [place] [address] Jul, Chronic tension-type headache, not intractable G44.229 ; Atrial fibrillation, unspecified type I48.91 ; Chronic pain syndrome G89.4 ; Hypothyroidism, unspecified hypothyroidism type E03.9 ; Pancytopenia D61.818 ; History of hepatitis C Z86.19 ; Vaginal atrophy N95.2 ; RUQ abdominal pain R10.11 ; Chronic prescription opiate use Z79.891 ; Osteoporosis M81.0 and Screening for breast cancer Z12.31 [facility] [id number] [place] [address] Jun, [facility] [id number] [place] [address] May, [facility] [id number] [place] [address] May, [facility] [id number] [place] [address] May, [facility] [id number] [place] [address] Apr, [facility] [id number] [place] [address] Apr, Hypothyroidism, unspecified hypothyroidism type E03.9 [facility] [id number] [place] [address] Apr, Hypothyroidism, unspecified hypothyroidism type E03.9 and Leukopenia, unspecified type D72.819 [facility] [id number] [place] [address] Mar, [facility] [id number] [place] [address] Mar, Leukopenia, unspecified type D72.819 [facility] [id number] [place] [address] Mar, Hypothyroidism, unspecified hypothyroidism type E03.9 and Low hemoglobin D64.9 [facility] [id number] [place] [address] Mar, Hypothyroidism, unspecified hypothyroidism type E03.9 [facility] [id number] [place] [address] Mar, Osteoporosis M81.0 ; Low hemoglobin D64.9 and Hypothyroidism, unspecified hypothyroidism type E03.[address] [address] Mar, Hypothyroidism, unspecified hypothyroidism type E03.9 ; Bilirubin in urine R82.2 and Pancytopenia D61.[address] [address] Feb, [facility] [address] [address] Feb, Cough R05 and Bronchitis J40 [facility] [address] [address] 14 Feb, 2017 Other viral agents as the cause of diseases classified elsewhere B97.89 and Acute upper respiratory infection, unspecified J06.[address] [address] Feb, Fibromyalgia M79.7 ; Chronic pain syndrome G89.4 ; Hypothyroidism, unspecified hypothyroidism type E03.9 ; Primary insomnia F51.01 ; Osteoporosis M81.0 ; Vision abnormalities H53.9 ; Pancytopenia D61.818 ; BMI 28.0-28.9,adult Z68.28 and Encounter for immunization Z23 [address] [address] Feb, Neuroma D36.10 and Capsulitis of right foot M77.[address] [address] Feb, [address] [address] Feb, Hypothyroidism, unspecified hypothyroidism type E03.9 [place] [address] [address] Jan, [address] [address] Jan, Atrial fibrillation, unspecified type I48.91 [facility] [id number] [place] [address] Jan, [facility] [id number] [place] [address] Jan, Fibromyalgia M79.7 ; Atrial fibrillation, unspecified type I48.91 ; Pain of left hand M79.642 ; Pain in right hand M79.641 ; Chronic prescription opiate use Z79.891 ; Chronic pain syndrome G89.4 ; Elevated fasting glucose R73.01 and Hypothyroidism, unspecified hypothyroidism type E03.9 [facility] [id number] [place] [address] Jan, [facility] [id number] [place] [address] Dec, Trochanteric bursitis of both hips M70.61 [facility] [id number] [place] [address] Dec, [facility] [id number] [place] [address] Dec, [facility] [id number] [place] [address] Nov, [facility] [id number] [place] [address] Nov, Unilateral headache R51 [facility] [id number] [place] [address] Nov, [facility] [id number] [place] [address] Oct, Unilateral headache R51 ; 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 and Allergy to intravenous contrast Z91.041 [facility] [id number] [place] [address] Oct, [facility] [address] [address] Oct, [facility] [id number] [place] [address] Sep, Hypothyroidism, unspecified hypothyroidism type E03.9 [facility] [id number] [place] [address] Sep, Hypothyroidism, unspecified hypothyroidism type E03.9 and Bilirubin in urine R82.2 [facility] [address] [address] Sep, Trochanteric bursitis of both hips M70.61 [facility] [address] [address] Sep, Hypothyroidism, unspecified hypothyroidism type E03.9 ; Dysuria R30.0 ; Chronic tension-type headache, not intractable G44.229 and Drug induced constipation K59.03 [facility] [address] [address] Sep, [facility] [id number] [place] [address] Sep, [facility] [address] [address] August, [facility] [id number] [place] [address] Jul, [facility] [address] [address] Jul, Trochanteric bursitis of right hip M70.61 [facility] [address] [address] Jul, Hypothyroidism, unspecified hypothyroidism type E03.9 [facility] [id number] [place] [address] Jul, Fibromyalgia M79.7 ; Chronic pain syndrome G89.4 ; Hypothyroidism, unspecified hypothyroidism type E03.9 and Other constipation K59.09 [facility] [id number] [place] [address] Jun, Swollen tonsil J35.1 and Strep throat J02.0 [facility] [id number] [place] [address] Jun, [facility] [id number] [place] [address] Jun, Acute maxillary sinusitis J01.00 [facility] [id number] [place] [address] Jun, Hypothyroidism, unspecified hypothyroidism type E03.9 [facility] [address] [address] Jun, Chronic pain syndrome G89.4 ; Fibromyalgia M79.7 ; Hypothyroidism, unspecified hypothyroidism type E03.9 and Chronic prescription opiate use Z79.891 [facility] [id number] [place] [address] May, [facility] [id number] [place] [address] Apr, Hypothyroidism, unspecified hypothyroidism type E03.9 [facility] [id number] [place] [address] Apr, [facility] [id number] [place] [address] Apr, Lipid screening Z13.220 and Hypothyroidism, unspecified hypothyroidism type E03.9 [facility] [id number] [place] [address] Apr, [facility] [address] [address] Mar, Trochanteric bursitis of both hips M70.61 [facility] [id number] [place] [address] Mar, [facility] [id number] [place] [address] Mar, Plantar fasciitis M72.2 and Porokeratosis Q82.8 [place] [address] [address] Feb, Lipid screening Z13.220 ; Vitamin D deficiency E55.9 and Hypothyroidism, unspecified hypothyroidism type E03.9 [place] [address] [address] Feb, Chronic pain syndrome G89.4 ; Hypothyroidism, unspecified hypothyroidism type E03.9 ; Pancytopenia D61.818 ; Vaginal atrophy N95.2 ; Chronic gastritis without bleeding, unspecified gastritis type K29.50 ; Vitamin D deficiency E55.9 ; Chronic prescription opiate use Z79.891 ; Adverse effect of other opioids, initial encounter T40.2X5A ; Drug induced constipation K59.03 ; Lipid screening Z13.220 and Encounter for immunization Z23 [place] [address] [address] Feb, [place] [address] [address] Feb, Ingrown toenail L60.0 [place] [address] [address] Jan, [place] [address] [address] Jan, Trochanteric bursitis of both hips M70.61 [place] [address] [address] Jan, [place] [address] [address] Jan, [place] [address] [address] Jan, [place] [address] [address] Jan, Right sided sciatica M54.31 [facility] [address] [address] 23 Dec, 2015 Onychomycosis B35.1 [facility] [id number] [place] [address] 22 Dec, 2015 [facility] [id number] [place] [address] Dec, [facility] [id number] [place] [address] Dec, [facility] [id number] [place] [address] Dec, Osteoarthritis of right hip, unspecified osteoarthritis type M16.11 and Bursitis of right hip M70.71 [place] [id number] [place] [address] Nov, [place] [id number] [place] [address] Nov, [facility] [id number] [place] [address] Nov, [facility] [id number] [place] [address] Nov, Hypothyroidism, unspecified hypothyroidism type E03.9 ; Vitamin D deficiency E55.9 and History of hepatitis C Z86.19 [place] [id number] [place] [address] Nov, Right upper quadrant pain R10.11 ; History of hepatitis C Z86.19 and Low back pain M54.5 [facility] [id number] [place] [address] Oct, Trochanteric bursitis, right hip M70.61 [facility] [id number] [place] [address] Oct, [facility] [id number] [place] [address] Oct, [place] [address] [address] Oct, Trochanteric bursitis of both hips M70.61 and Right sided sciatica M54.31 [place] [address] [address] Oct, Trochanteric bursitis of both hips M70.61 [place] [address] [address] 14 Oct, 2015 RUQ abdominal pain R10.11 [place] [address] [address] Oct, Sciatic leg pain M54.30 [place] [address] [address] Oct, RUQ abdominal pain R10.11 [place] [address] [address] Oct, RUQ abdominal pain R10.11 ; History of hepatitis C Z86.19 and Trigger point with back pain M54.9 [place] [address] [address] Sep, [place] [id number] [place] [address] Sep, Right sided sciatica M54.31 [place] [address] [address] Sep, Hypothyroidism, unspecified hypothyroidism type E03.9 and Vitamin D deficiency E55.9 [place] [address] [address] Sep, Plantar fasciitis M72.2 and Porokeratosis Q82.8 [place] [address] [address] Sep, Hypothyroidism, unspecified hypothyroidism type E03.9 ; Chronic pain syndrome G89.4 ; Polyneuropathy associated with underlying disease G63 and Vitamin D deficiency E55.9 [place] [address] [address] August, [place] [address] [address] Jul, Plantar fasciitis M72.2 [place] [address] [address] Jul, Trochanteric bursitis, right hip M70.61 [place] [address] [address] Jul, Hypothyroidism, unspecified hypothyroidism type E03.9 [place] [address] [address] Jul, Hypothyroidism, unspecified hypothyroidism type E03.9 ; Chronic pain syndrome G89.4 and Polyneuropathy associated with underlying disease G63 [place] [address] [address] Jun, Trochanteric bursitis of both hips M70.61 [place] [address] [address] Jun, Vitamin D deficiency E55.9 ; Osteoporosis M81.0 ; Low back pain M54.5 and Plantar fasciitis M72.2 [place] [address] [address] May, Vitamin D deficiency E55.9 and Hypothyroidism, unspecified hypothyroidism type E03.9 [place] [address] [address] May, Acute maxillary sinusitis J01.00 [place] [address] [address] May, Osteoporosis M81.0 and Hypothyroidism, unspecified hypothyroidism type E03.9 [place] [id number] [place] [address] 16 May, 2015 Osteoporosis M81.0 [place] [address] [address] 15 May, 2015 [facility] [id number] [place] [address] 14 Apr, 2015 [place] [address] [address] Apr, Trochanteric bursitis of both hips M70.61 [place] [address] [address] Apr, Hypothyroidism, unspecified hypothyroidism type E03.9 [place] [id number] [place] [address] Apr, Chronic pain syndrome G89.4 ; Bilateral low back pain with sciatica, sciatica laterality unspecified M54.40 ; Pain in right hip M25.551 ; Pain in left hip M25.552 ; Chronic prescription opiate use Z79.899 ; Primary insomnia F51.01 and Hypothyroidism, unspecified hypothyroidism type E03.9 [place] [id number] [place] [address] 18 Mar, 2015 [place] [id number] [place] [address] Feb, [place] [id number] [place] [address] 16 Feb, 2015 Chronic pain syndrome G89.4 and Major depression F32.9 [place] [id number] [place] [address] 16 Feb, 2015 Fatigue R53.83 [place] [id number] [place] [address] 13 Feb, 2015 History of fracture Z87.81 [place] [address] [address] Feb, Major depression, recurrent F33.9 and Generalized anxiety disorder F41.1 [facility] [id number] [place] [address] Feb, [facility] [id number] [place] [address] Jan, Hypothyroidism, unspecified hypothyroidism type E03.9 [facility] [id number] [place] [address] Jan, Abdominal pain R10.9 and Hypothyroidism, unspecified hypothyroidism type E03.9 [place] [id number] [place] [address] Jan, Abdominal pain R10.9 [place] [id number] [place] [address] Jan, Hypothyroidism, unspecified hypothyroidism type E03.9 [place] [id number] [place] [address] Jan, [facility] [id number] [place] [address] Jan, 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 Z01.419 and Hypothyroidism, unspecified hypothyroidism type E03.9 [place] [address] [place] [address] Jan, 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 Z01.419 ; Abdominal pain R10.9 ; Dyspareunia N94.1 ; Encounter for immunization Z23 ; History of fracture Z87.81 ; Fatigue R53.83 ; Throat fullness R68.89 ; Bruises easily R23.8 ; Hot flashes N95.1 ; Depression F32.9 and Vaginal atrophy N95.2 [place] [id number] [place] [address] Jan, Hypothyroidism, unspecified hypothyroidism type E03.9 [facility] [id number] [place] [address] Jan, Unspecified abdominal pain R10.9 ; Chronic obstructive pulmonary disease, unspecified COPD type J44.9 ; Allergic rhinitis, unspecified allergic rhinitis type J30.9 ; Chronic pain syndrome G89.4 ; Hypothyroidism, unspecified hypothyroidism type E03.9 ; Chest pain, unspecified chest pain type R07.9 and Plantar fasciitis M72.2 [facility] [id number] [place] [address] Jan, Trochanteric bursitis of both hips M70.61 [facility] [id number] [place] [address] Dec, [facility] [id number] [place] [address] Nov, [facility] [id number] [place] [address] Nov, [facility] [id number] [place] [address] Nov, Constipation 564.00 [facility] [id number] [place] [address] Oct, Chronic pain 338.29 and Hypothyroidism 244.9 [facility] [id number] [place] [address] Oct, [facility] [id number] [place] [address] Sep, [facility] [id number] [place] [address] Sep, [facility] [id number] [place] [address] Sep, [facility] [id number] [place] [address] Sep, [facility] [id number] [place] [address] Sep, [facility] [address] [place] [address] Sep, [facility] [id number] [place] [address] Sep, COPD exacerbation 491.21 ; Chronic pain 338.29 ; Hypothyroidism 244.9 and Pancytopenia 284.19 [facility] [id number] [place] [address] August, [facility] [id number] [place] [address] Jul, [facility] [id number] [place] [address] Jul, [facility] [id number] [place] [address] Jun, [facility] [id number] [place] [address] Jun, [facility] [address] [address] Jun, [facility] [address], [place] [address] Jun, [facility] [address], [place] [address] Jun, [facility] [address], [place] [address] May, [facility] [address], [place] [address] May, [facility] [address], [place] [address] May, [facility] [address] [place] [address] May, [facility] [id number] [place] [address] [place] [id number] May, 2014 [facility] [place] [facility] [address] [id number] [place] [id number] May, 2014 [facility] [place] [facility] [address] [id number] [place] [id number] May, 2014 [facility] [place] [facility] [address] [id number] [place] [address] May, 2014 [facility] [place] [facility] [address] [id number] [place] [address] May, 2014 [facility] [place] [facility] [address] [id number] [place] [address] May, 2014 [facility] [place] [facility] [address] [facility] [id number] [place] [address] May, 2014 [facility] [place] [facility] [address] [id number] [place] [address] May, 2014 [facility] [place] [facility] [address] [id number] [place] [address] May, [facility] [place] [facility] [address] [id number] [place] [address] Apr, [facility] [place] [facility] [address] [facility] [id number] [place] [address] Apr, [facility] [place] [facility] [address] [facility] [id number] [place] [address] Apr, [facility] [place] [facility] [address] [id number] [place] [address] Apr, [facility] [place] [facility] [address] [id number] [place] [address] Apr, [facility] [place] [facility] [address] [facility] [id number] [place] [address] Apr, [facility] [place] [facility] [address] [facility] [id number] [place] [address] Apr, [facility] [place] [facility] [address] [id number] [place] [address] Mar, [facility] [place] [facility] [address] [id number] [place] [address] Mar, [facility] [place] [facility] [address] [id number] [place] [address] Mar, [facility] [place] [facility] [address] [id number] [place] [address] Mar, [facility] [place] [facility] [address] [id number] [place] [address] Mar, [facility] [place] [facility] [address] [id number] [place] [address] Mar, [facility] [place] [facility] [address] [id number] [place] [address] Feb, [facility] [place] [facility] [address] [id number] [place] [address] Feb, [facility] [place] [facility] [address] [id number] [place] [address] Feb, [facility] [place] [facility] [address] [id number] [place] [address] Feb, [facility] [place] [facility] [address] [id number] [place] [address] Feb, [facility] [place] [facility] [address] [id number], [place] [address] Feb, [facility] [place] [facility] [address] [id number] [place] [address] Jan, [facility] [place] [facility] [address] [id number] [place] [address] Jan, [facility] [place] [facility] [address] [id number] [place] [address] Jan, [facility] [place] [facility] [address] [id number] [place] [address] Jan, [facility] [place] [facility] [address] [id number] [place] [address] Jan, [facility] [place] [facility] [address] [id number] [place] [address] Jan, [facility] [place] [facility] [address] [id number] [place] [address] Jan, [facility] [place] [facility] [address] [id number] [place] [address] Jan, [facility] [place] [facility] [address] [id number] [place] [address] Dec, [facility] [place] [facility] [address] [id number] [place] [address] Dec, [facility] [place] [facility] [address] [id number] [place] [address] Dec, [facility] [place] [facility] [address] [id number] [place] [address] Dec, [facility] [place] [facility] [address] [id number] [place] [address] Dec, [facility] [place] [facility] [address] [id number] [place] [address] Dec, [facility] [place] [facility] [address] [id number] [place] [address] Dec, [facility] [place] [facility] [address] [id number] [place] [address] Nov, [facility] [place] [facility] [address] [id number] [place] [address] Nov, [facility] [place] [facility] [address] [id number] [place] [address] Oct, [facility] [place] [facility] [address] [id number] [place] [address] Oct, [facility] [place] [facility] [address] [id number] [place] [address] Oct, [facility] [place] [facility] [address] [id number] [place] [address] Oct, [facility] [place] [facility] [address] [id number] [place] [address] Sep, [facility] [place] [facility] [address] [id number] [place] [address] Sep, [facility] [place] [facility] [address] [id number] [place] [address] Sep, [facility] [place] [facility] [address] [id number] [place] [address] Sep, [facility] [place] [facility] [address] [id number] [place] [address] Sep, [facility] [place] [facility] [address] [id number] [place] [address] Sep, [facility] [place] [facility] [address] [id number] [place] [address] Sep, [facility] [place] [facility] [address] [id number] [place] [address] Sep, [facility] [place] [facility] [address] [id number] [place] [address] August, [facility] [place] [facility] [address] [id number] [place] [address] August, [facility] [place] [facility] [address] [id number] [place] [address] August, [facility] [place] [facility] [address] [id number] [place] [address] August, [facility] [place] [facility] [address] [id number] [place] [address] Jul, [facility] [place] [facility] [address] [id number] [place] [address] 30 Jul, 2013 [facility] [place] [facility] [address] [id number] [place] [address] 24 Jul, 2013 [facility] [place] [facility] [address] [id number] [place] [address] 24 Jul, 2013 [facility] [place] [facility] [address] [id number] [place] [address] 17 Jul, 2013 [facility] [place] [facility] [address] [id number] [place] [address] 16 Jul, 2013 [facility] [place] [facility] [address] [id number] [place] [address] 15 Jul, 2013 [facility] [place] [facility] [address] [id number] [place] [address] Jul, [facility] [place] [facility] [address] [id number] [place] [address] Jun, [facility] [place] [facility] [address] [id number] [place] [address] Jun, [facility] [place] [facility] [address] [id number] [place] [address] Jun, [facility] [place] [facility] [address] [id number] [place] [address] Jun, [facility] [place] [facility] [address] [id number] [place] [address] Jun, [facility] [place] [facility] [address] [id number] [place] [address] Jun, [facility] [place] [facility] [address] [id number] [place] [address] Jun, [facility] [place] [facility] [address] [id number] [place] [address] Jun, [facility] [place] [facility] [address] [id number] [place] [address] May, [facility] [place] [facility] [address] [id number] [place] [address] 13 May, 2013 [facility] [address] [id number] [place] [address] Apr, [facility] [address] [id number] [place] [address] Apr, [facility] [address] [id number] [place] [address] Mar, [facility] [address] [id number] [place] [address] Mar, [facility] [address] [id number] [place] [address] Mar, [facility] [address] [id number] [place] [address] Mar, [facility] [address] [id number] [place] [address] Mar, [facility] [address] [id number] [place] [address] Mar, [facility] [address] [id number] [place] [address] Mar, [facility] [address] [facility] [id number] [place] [address] Feb, [facility] [address] [id number] [place] [address] Feb, [facility] [address] [id number] [place] [address] Feb, [facility] [address] [id number] [place] [address] Feb, [facility] [address] [id number] [place] [address] Feb, [facility] [address] [id number] [place] [address] Feb, [facility] [address] [id number] [place] [address] 26 Dec, 2012 [facility] [place] [facility] [address] [id number] [place] [address] 18 Dec, 2012 [facility] [place] [facility] [address] [id number] [place] [address] Dec, [facility] [place] [facility] [address] [id number] [place] [address] Dec, [facility] [address] [id number] [place] [address] Dec, [facility] [place] [facility] [address] [id number] [place] [address] Nov, [facility] [place] [facility] [address] [id number] [place] [address] Nov, [facility] [place] [facility] [address] [id number] [place] [address] Oct, [facility] [place] [facility] [address] [id number] [place] [address] August, [facility] [place] [facility] [address] [id number] [place] [address] August, [facility] [place] [facility] [address] [id number] [place] [address] August, [facility] [place] [facility] [address] [id number], [place] [address] Jul, [facility] [place] [facility] [address] [id number] [place] [address] Jul, [facility] [place] [facility] [address] [id number] [place] [address] Jul, [facility] [place] [facility] [address] [id number] [place] [address] Jun, [facility] [place] [facility] [address] [id number], [place] [address] 26 Jun, 2012 [facility] [address] [id number] [place] [address] 21 Jun, 2012 [facility] [place] [facility] [address] [id number] [place] [address] 20 Jun, 2012 [facility] [place] [facility] [address] [id number] [place] [address] 18 Jun, 2012 [facility] [place] [facility] [address] [id number] [place] [address] 15 Jun, 2012 [facility] [place] [facility] [address] [id number] [place] [address] 12 Jun, 2012 [facility] [place] [facility] [address] [id number] [place] [address] 18 May, 2012 [facility] [address] [id number] [place] [address] 11 May, 2012 [facility] [place] [facility] [address] [id number] [place] [address] 06 May, 2012 [facility] [place] [facility] [address] [id number] [place] [address] 05 May, 2012 [facility] [address] [facility] [id number] [place] [address] 10 Apr, 2012 [facility] [place] [facility] [address] [id number] [place] [address] Apr, [facility] [place] [facility] [address] [id number] [place] [address] Apr, [facility] [place] [facility] [address] [id number] [place] [address] Mar, [facility] [place] [facility] [address] [id number] [place] [address] Mar, [facility] [place] [facility] [address] [id number] [place] [address] Mar, [facility] [place] [facility] [address] [id number] [place] [address] Mar, [facility] [place] [facility] [address] [id number] [place] [address] Mar, [facility] [place] [facility] [address] [id number] [place] [address] Mar, [facility] [place] [facility] [address] [id number] [place] [id number], [place] [address] Mar, [facility] [place] [facility] [address] [id number] [place] [address] Mar, [facility] [place] [facility] [address] [id number] [place] [address] Feb, [facility] [place] [facility] [address] [id number] [place] [address] Feb, [facility] [place] [facility] [address] [id number] [place] [address] Feb, [facility] [place] [facility] [address] [id number] [place] [address] Jan, [facility] [place] [facility] [address] [id number] [place] [address] Jan, [facility] [place] [facility] [address] [id number] [place] [address] Jan, [facility] [place] [facility] [address] [id number], [place] [address] Jan, [facility] [place] [facility] [address] [id number] [place] [address] Jan, [facility] [place] [facility] [address] [id number] [place] [address] Jan, [facility] [place] [facility] [address] [id number] [place] [address] Jan, [facility] [place] [facility] [address] [id number] [place] [address] 27 Dec, 2011 [facility] [place] [facility] [address] [id number] [place] [address] 24 Dec, 2011 [facility] [place] [facility] [address] [id number] [place] [address] 10 Dec, 2011 [facility] [place] [facility] [address] [id number] [place] [address] 30 Nov, 2011 [facility] [place] [facility] [address] [id number] [place] [address] Nov, [facility] [place] [facility] [address] [id number] [place] [address] Nov, [facility] [place] [facility] [address] [id number] [place] [address] Nov, [facility] [place] [facility] [address] [id number] [place] [address] Oct, [facility] [place] [facility] [address] [id number] [place] [address] Oct, [facility] [place] [facility] [address] [id number] [place] [address] Oct, [facility] [place] [facility] [address] [id number] [place] [address] Sep, [facility] [place] [facility] [address] [id number] [place] [address] 16 Sep, 2011 [facility] [place] [facility] [address] [id number] [place] [address] Sep, [facility] [place] [facility] [address] [id number] [place] [address] Sep, [facility] [place] [facility] [address] [id number] [place] [address] Sep, [facility] [place] [facility] [address] [id number] [place] [address] Sep, [facility] [place] [facility] [address] [id number] [place] [address] August, [facility] [address] [id number] [place] [address] Jul, [facility] [place] [facility] [address] [id number] [place] [address] Jul, [facility] [address] [id number] [place] [address] Jul, [facility] [address] [id number] [place] [address] Jul, [facility] [address] [id number] [place] [address] Jul, [facility] [address] [id number] [place] [address] Jun, [facility] [address] [id number] [place] [address] Jun, [facility] [address] [id number] [place] [address] Jun, [facility] [address] [id number] [place] [address] Jun, [facility] [address] [id number] [place] [address] Jun, [facility] [place] [facility] [address] [id number] [place] [address] May, [facility] [address] [id number] [place] [address] May, [facility] [place] [facility] [address] [id number] [place] [address] May, [facility] [place] [facility] [address] [id number] [place] [address] 06 May, 2011 [facility] [place] [facility] [address] [id number] [place] [address] May, [facility] [place] [facility] [address] [id number] [place] [address] May, [facility] [place] [facility] [address] [id number] [place] [address] May, [facility] [place] [facility] [address] [facility] [id number] [place] [address] Apr, [facility] [place] [facility] [address] [id number] [place] [address] Mar, [facility] [place] [facility] [address] [id number] [place] [address] Mar, [facility] [place] [facility] [address] [id number] [place] [address] Mar, [facility] [place] [facility] [address] [facility] [id number] [place] [address] Mar, [facility] [place] [facility] [address] [id number] [place] [address] Mar, [facility] [place] [facility] [address] [id number] [place] [address] Feb, [facility] [place] [facility] [address] [id number] [place] [address] Feb, [facility] [place] [facility] [address] [id number], [place] [address] 14 Feb, 2011 [facility] [place] [facility] [address] [id number] [address] 14 Feb, 2011 [facility] [place] [facility] [address] [id number] [place] [id number] Feb, [facility] [place] [facility] [address] [facility] [id number] [place] [id number] 04 Feb, 2011 [facility] [place] [facility] [address] [facility] [id number] [place] [id number] Feb, [facility] [place] [facility] [address] [id number] [place] [id number] 10 Jan, 2011 [facility] [address] [id number] [place] [id number] 12 Dec, 2010 [facility] [address] [id number] [place] [id number] 11 Oct, 2010 [facility] [address] [id number] [place] [id number] 10 Jun, 2010 [facility] [address] [id number] [place] [id number] 23 Mar, 2010 [facility] [address] [id number] [place] [id number] 23 Mar, 2010 [facility] [address] [id number] [place] [id number] 16 Mar, 2010 [facility] [address] [id number] [place] [id number] 16 Mar, 2010 [facility] [address] [id number] [place] [id number] 15 Mar, 2010 [facility] [address] [id number] [place] [id number] 10 Mar, 2010 [facility] [address] [facility] [id number] [place] [id number] 10 Mar, 2010 [facility] [address] [id number] [place] [id number] 05 Mar, 2010 [facility] [address] [id number] [place] [id number] 03 Mar, 2010 [facility] [address] [id number] [place] [id number] 02 Mar, 2010 [facility] [address] [id number] [place] [id number] 22 Jan, 2010 [facility] [address] [id number] [place] [id number] Jan, [facility] [address] [id number], [place] [address] Jan, [facility] [address] [id number], [place] [address] Nov, [facility] [address] [id number], [place] [address] Oct, [facility] [address], [place] [address] Mar, [facility] [address] [id number], [place] [address] Mar, [facility] [address], [place] [address] Mar, [facility] [address], [place] [address] Mar, [facility] [address], [place] [address] Dec, [facility] [address] [id number], [place] [address] August, [facility] [address] [id number], [place] [address] August, [facility] [address] [id number], [place] [address] Jul, [facility] [address] [id number], [place] [address] Jan, [facility] [address] [id number], [place] [address] Jan, IMMUNIZATIONS No Known Immunizations SOCIAL HISTORY Never Assessed REASON FOR VISIT Lab (walk-in)--[facility] PLAN OF CARE VITAL SIGNS MEDICATIONS Unknown Medications RESULTS Name Result Date Reference Range IRON + TIBC 2017-04-06 IRON, TOTAL 84 45-160 IRON BINDING CAPACITY 264 250-450 % SATURATION 32 11-50 CBC 2017-04-06 WHITE BLOOD CELL COUNT 3.2 3.8-10.8 RED BLOOD CELL COUNT 4.09 3.80-5.10 HEMOGLOBIN 11.9 11.7-15.5 HEMATOCRIT 37.4 35.0-45.0 MCV 91.4 80.0-100.0 MCH 29.1 27.0-33.0 MCHC 31.8 32.0-36.0 RDW 11.8 11.0-15.0 PLATELET COUNT 155 140-400 MPV 11.1 7.5-12.5 ABSOLUTE NEUTROPHILS 1258 [id number] ABSOLUTE LYMPHOCYTES 4126 284-3225 ABSOLUTE MONOCYTES 445 200-950 ABSOLUTE EOSINOPHILS 166 15-500 ABSOLUTE BASOPHILS 19 0-200 NEUTROPHILS 39.3 LYMPHOCYTES 41.0 MONOCYTES 13.9 EOSINOPHILS 5.2 BASOPHILS 0.6 PROCEDURES Procedure Date Ordered Result Body Site IRON BINDING TEST Apr 06, 2017 ASSAY OF IRON Apr 06, 2017 VENIPUNCT, ROUTINE* Apr 06, 2017 COMPLETE CBC W/AUTO DIFF WBC Apr 06, 2017 INSTRUCTIONS MEDICATIONS ADMINISTERED No Known Medications [...]
[2018-09-22 03:38] LABS: BILIRUBIN,URINE NEGATIVE (NEGATIVE); COLOR,URINE YELLOW; GLUCOSE, URINE (UA) NEGATIVE (NEGATIVE); KETONES,URINE NEGATIVE (NEGATIVE); LEUKOCYTE ESTERASE ,URINE 2+ (NEGATIVE); NITRITE,URINE NEGATIVE (NEGATIVE); PH,URINE 6 (5-9); PROTEIN,URINE 2+ (NEGATIVE); UROBILINOGEN,URINE NORMAL (NORMAL)
--- OUTSIDE RECORDS SUMMARY | 2018-09-22 03:45 | XMS REPORT | Continuity of Care Document ---
Author Organization Unknown Address Unknown Allergies Active Description Code Type Severity Reaction Onset Reported/Identified Relationship to Patient Clinical Status Yes codeine Drug Allergy 06/12/2008 Yes IVP Dye OA 09/18/2009 Yes IVP Dye OA N/A N/A 09/18/2009 Yes CONTRAST DYE CONTRAST DYE Unknown N/A 09/14/2013 Yes Iodinated Contrast Media - IV Dye [id number] Drug Allergy Unknown N/A 12/24/2015 Yes Iodinated Contrast Media - Oral and [id number] Drug Allergy Unknown N/A 12/24/2015 Yes diltiazem [id number] Drug Allergy Unknown N/A 07/10/2018 Yes Iodinated Contrast- Oral and IV Dye [id number] Drug Allergy Unknown N/A 07/10/2018 Medications There is no data. Problems Date Dx Coded Attending Type Code Diagnosis Diagnosed By 03/18/1113 [facility] Ot M54.41 LUMBAGO WITH SCIATICA, RIGHT SIDE 03/18/1113 [facility] Ot M70.61 TROCHANTERIC BURSITIS, RIGHT HIP 10/25/2007 070.54 Hepatitis C Chronic 10/25/2007 285.9 Anemia Unspecified 10/25/2007 V58.69 Medication High Risk 10/25/2007 070.54 Hepatitis C Chronic 10/25/2007 285.9 Anemia Unspecified 10/25/2007 V58.69 Medication High Risk 10/25/[address] RO APRN S 070.54 Hepatitis C Chronic 10/25/2007 LUISITO RO APRNA S 285.9 Anemia Unspecified 10/25/2007 [address]ZEGORZ RO APRN S V58.69 Medication High Risk 10/25/2007 JULY PARKS DO 070.54 Hepatitis C Chronic 10/25/2007 JULY PARKS DO K 285.9 Anemia Unspecified 10/25/2007 JLUY PARKS DO V58.69 Medication High Risk 10/25/2007 PARKS DO, JULY K 070.54 Hepatitis C Chronic 10/25/2007 PARKS DO, JULY K 285.9 Anemia Unspecified 10/25/2007 PARKS DO, JULY K V58.69 Medication High Risk 10/25/2007 JIA TAVO VELASQUEZNDA S 070.54 Hepatitis C Chronic 10/25/2007 JIA 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, GRZEGORZ S 285.9 Anemia Unspecified 10/25/2007 JIA 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, GRZEGORZ S V58.69 Medication High Risk 10/25/2007 070.54 Hepatitis C Chronic 10/25/2007 285.9 Anemia Unspecified 10/25/2007 V58.69 Medication High Risk 10/25/2007 PARKS DO, JUYL K 070.54 Hepatitis C Chronic 10/25/2007 PARKS DO, JULY K 285.9 Anemia Unspecified 10/25/2007 PARKS DO, JULY K V58.69 Medication High Risk 10/25/2007 070.54 Hepatitis C Chronic 10/25/2007 285.9 Anemia Unspecified 10/25/2007 V58.69 Medication High Risk 10/25/2007 PARKS DO JULY K 070.54 Hepatitis C Chronic 10/25/2007 PARKS DO, JULY K 285.9 Anemia Unspecified 10/25/2007 PARKS DO, JULY K V58.69 Medication High Risk 10/25/2007 ALESIA PAEZ APRN 070.54 Hepatitis C Chronic 10/25/2007 ALESIA PAEZ APRN 285.9 Anemia Unspecified 10/25/2007 ALESIA PAEZ APRN V58.69 Medication High Risk 10/25/2007 070.54 Hepatitis C Chronic 10/25/2007 285.9 Anemia Unspecified 10/25/2007 V58.69 Medication High Risk 10/25/2007 070.54 Hepatitis C Chronic 10/25/2007 285.9 Anemia Unspecified 10/25/2007 V58.69 Medication High Risk 10/25/2007 070.54 Hepatitis C Chronic 10/25/2007 285.9 Anemia Unspecified 10/25/2007 V58.69 Medication High Risk 10/25/2007 070.54 Hepatitis C Chronic 10/25/2007 285.9 Anemia Unspecified 10/25/2007 V58.69 Medication High Risk 10/25/2007 070.54 Hepatitis C Chronic 10/25/2007 285.9 Anemia Unspecified 10/25/2007 V58.69 Medication High Risk 10/25/2007 PARKS DO JULY K 070.54 Hepatitis C Chronic 10/25/2007 PARKS DO JULY K 285.9 Anemia Unspecified 10/25/2007 PARKS DO JULY K V58.69 Medication High Risk 10/25/2007 EZEKIEL LERMA MD 070.54 Hepatitis C Chronic 10/25/2007 EZEKIEL LERMA MD N 285.9 Anemia Unspecified 10/25/2007 EZEKIEL LERMA MD N V58.69 Medication High Risk 10/25/2007 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, GAB R 070.54 Hepatitis C Chronic 10/25/2007 LYNNE VELASQUEZ GAB R 285.9 Anemia Unspecified 10/25/2007 LYNNE VELASQUEZ GAB R V58.69 Medication High Risk 10/25/2007 EZEKIEL LERMA MD 070.54 Hepatitis C Chronic 10/25/2007 EZEKIEL LERMA MD 285.9 Anemia Unspecified 10/25/2007 EZEKIEL LERMA MD V58.69 Medication High Risk 10/25/2007 EZEKIEL LERMA MD 070.54 Hepatitis C Chronic 10/25/2007 EZEKIEL LERMA MD 285.9 Anemia Unspecified 10/25/2007 EZEKIEL LERMA MD V58.69 Medication High Risk 10/25/2007 ARIADNA OJEDA MD 070.54 Hepatitis C Chronic 10/25/2007 ARIADNA OJEDA MD 285.9 Anemia Unspecified 10/25/2007 ARIADNA OJEDA MD V58.69 Medication High Risk 10/25/2007 EZEKIEL LERMA MD 070.54 Hepatitis C Chronic 10/25/2007 EZEKIEL LERMA MD 285.9 Anemia Unspecified 10/25/2007 EZEKIEL LERMA MD V58.69 Medication High Risk 10/25/2007 EZEKIEL LERMA MD 070.54 Hepatitis C Chronic 10/25/2007 EZEKIEL LERMA MD N 285.9 Anemia Unspecified 10/25/2007 EZEKIEL LERMA MD V58.69 Medication High Risk 10/25/2007 MEG PARKS DOA K 070.54 Hepatitis C Chronic 10/25/2007 PARKS DO, JULY K 285.9 Anemia Unspecified 10/25/2007 PARKS DO, JULY K V58.69 Medication High Risk 10/25/2007 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, GAB R 070.54 Hepatitis C Chronic 10/25/2007 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, GAB R 285.9 Anemia Unspecified 10/25/2007 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, GAB R V58.69 Medication High Risk 10/25/2007 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, GBA R 070.54 Hepatitis C Chronic 10/25/2007 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, GAB R 285.9 Anemia Unspecified 10/25/2007 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, GAB R V58.69 Medication High Risk 10/25/2007 EZEKIEL LERMA MD 070.54 Hepatitis C Chronic 10/25/2007 FLORENTIN AMRIO, EZEKIEL N 285.9 Anemia Unspecified 10/25/2007 EZEKIEL LERMA MD N V58.69 Medication High Risk 10/25/2007 PARKS MEG MADRIDA K 070.54 Hepatitis C Chronic 10/25/2007 KASEY MADRID JULY K 285.9 Anemia Unspecified 10/25/2007 PARKS DO JULY K V58.69 Medication High Risk 10/25/2007 EZEKIEL LERMA MD N 070.54 Hepatitis C Chronic 10/25/2007 EZEKIEL LERMA MD N 285.9 Anemia Unspecified 10/25/2007 FLORENTIN MARIO, EZEKIEL N V58.69 Medication High Risk 10/25/2007 NOLAN ALMENDAREZ APRN 070.54 Hepatitis C Chronic 10/25/2007 NOLAN AL[facility]ENDAREZ APRN 285.9 Anemia Unspecified 10/25/2007 NOLAN AL[facility]ARE[facility] APRN V58.69 Medication High Risk 10/25/2007 070.54 Hepatitis C Chronic 10/25/2007 285.9 Anemia Unspecified 10/25/2007 V58.69 Medication High Risk 10/25/2007 [address]ZEGORZ RO APRN S 070.54 Hepatitis C Chronic 10/25/2007 JIA VELASQUEZ GRZEGORZ S 285.9 Anemia Unspecified 10/25/2007 JIA VELASQUEZ GRZEGORZ S V58.69 Medication High Risk 10/25/2007 LYNNE VELASQUEZ GAB R 070.54 Hepatitis C Chronic 10/25/2007 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, GAB R 285.9 Anemia Unspecified 10/25/2007 MARILYN BATISTA APRNINA R V58.69 Medication High Risk 10/25/2007 EZEKIEL LERMA MD 070.54 Hepatitis C Chronic 10/25/2007 EZEKIEL LERMA MD N 285.9 Anemia Unspecified 10/25/2007 EZEKIEL LERMA MD V58.69 Medication High Risk 10/25/2007 NOLAN ALMENDAREZ APRN 070.54 Hepatitis C Chronic 10/25/2007 NOLAN AL[facility]ENDAREZ APRN 285.9 Anemia Unspecified 10/25/2007 NOLAN AL[facility]AREZ APRN V58.69 Medication High Risk 11/08/2007 280.9 Anemia Iron Deficiency 11/08/2007 280.9 Anemia Iron Deficiency 11/08/2007 [address]ZEGORZ RO APRN S 280.9 Anemia Iron Deficiency 11/08/2007 PARKS DO JULY K 280.9 Anemia Iron Deficiency 11/08/2007 PARKS DO JULY K 280.9 Anemia Iron Deficiency 11/08/2007 LUISITO RO APRNA S 280.9 Anemia Iron Deficiency 11/08/2007 280.9 Anemia Iron Deficiency 11/08/2007 PARKS DO, JULY K 280.9 Anemia Iron Deficiency 11/08/2007 280.9 Anemia Iron Deficiency 11/08/2007 PARKS DO, JULY K 280.9 Anemia Iron Deficiency 11/08/2007 ALESIA PAEZ APRN 280.9 Anemia Iron Deficiency 11/08/2007 280.9 Anemia Iron Deficiency 11/08/2007 280.9 Anemia Iron Deficiency 11/08/2007 280.9 Anemia Iron Deficiency 11/08/2007 280.9 Anemia Iron Deficiency 11/08/2007 280.9 Anemia Iron Deficiency 11/08/2007 PARKS DO, JULY K 280.9 Anemia Iron Deficiency 11/08/2007 EZEKIEL LERMA MD N 280.9 Anemia Iron Deficiency 11/08/2007 GAB BATISTA APRN R 280.9 Anemia Iron Deficiency 11/08/2007 EZEKIEL LERMA MD N 280.9 Anemia Iron Deficiency 11/08/2007 EZEKIEL LERMA MD N 280.9 Anemia Iron Deficiency 11/08/2007 ARIADNA OJEDA MD 280.9 Anemia Iron Deficiency 11/08/2007 FLORENTIN MD, EZEKIEL N 280.9 Anemia Iron Deficiency 11/08/2007 EZEKIEL LERMA MD N 280.9 Anemia Iron Deficiency 11/08/2007 PARKS DO, JULY K 280.9 Anemia Iron Deficiency 11/08/2007 GAB BATISTA APRN R 280.9 Anemia Iron Deficiency 11/08/2007 GAB BATISTA APRN R 280.9 Anemia Iron Deficiency 11/08/2007 EZEKIEL LERMA MD N 280.9 Anemia Iron Deficiency 11/08/2007 PARKS , JULY K 280.9 Anemia Iron Deficiency 11/08/2007 EZEKIEL LERMA MD N 280.9 Anemia Iron Deficiency 11/08/2007 [facility] APRN 280.9 Anemia Iron Deficiency 11/08/2007 280.9 Anemia Iron Deficiency 11/08/[address]ZEG[address]Z RO APRN S 280.9 Anemia Iron Deficiency 11/08/2007 GAB BATISTA APRN R 280.9 Anemia Iron Deficiency 11/08/2007 EZEKIEL LERMA MD N 280.9 Anemia Iron Deficiency 11/08/2007 [facility] APRN 280.9 Anemia Iron Deficiency 12/02/2007 599.0 Urinary Tract Infection 12/02/2007 599.0 Urinary Tract Infection 12/02/[address] APRN S 599.0 Urinary Tract Infection 12/02/2007 PARKS DO, JULY K 599.0 Urinary Tract Infection 12/02/2007 PARKS DO, JULY K 599.0 Urinary Tract Infection 12/02/[address] APRN S 599.0 Urinary Tract Infection 12/02/2007 599.0 Urinary Tract Infection 12/02/2007 PARKS DO, JULY K 599.0 Urinary Tract Infection 12/02/2007 599.0 Urinary Tract Infection 12/02/2007 PARKS DO, JULY K 599.0 Urinary Tract Infection 12/02/2007 ALESIA PAEZ APRN 599.0 Urinary Tract Infection 12/02/2007 599.0 Urinary Tract Infection 12/02/2007 599.0 Urinary Tract Infection 12/02/2007 599.0 Urinary Tract Infection 12/02/2007 599.0 Urinary Tract Infection 12/02/2007 599.0 Urinary Tract Infection 12/02/2007 PARKS DO, JULY K 599.0 Urinary Tract Infection 12/02/2007 EZEKIEL LERMA MD N 599.0 Urinary Tract Infection 12/02/2007 GAB BATISTA APRN R 599.0 Urinary Tract Infection 12/02/2007 EZEKIEL LERMA MD N 599.0 Urinary Tract Infection 12/02/2007 EZEKIEL LERMA MD N 599.0 Urinary Tract Infection 12/02/2007 ARIADNA OJEDA MD 599.0 Urinary Tract Infection 12/02/2007 EZEKIEL LERMA MD N 599.0 Urinary Tract Infection 12/02/2007 EZEKIEL LERMA MD N 599.0 Urinary Tract Infection 12/02/2007 PARKS DO, JULY K 599.0 Urinary Tract Infection 12/02/2007 GAB BATISTA APRN R 599.0 Urinary Tract Infection 12/02/2007 MARILYN BATISTA APRNINA R 599.0 Urinary Tract Infection 12/02/2007 EZEKIEL LERMA MD N 599.0 Urinary Tract Infection 12/02/2007 PARKS DO, JULY K 599.0 Urinary Tract Infection 12/02/2007 EZEKIEL LERMA MD N 599.0 Urinary Tract Infection 12/02/2007 NOLAN ALMENDAREZ APRN 599.0 Urinary Tract Infection 12/02/2007 599.0 Urinary Tract Infection 12/02/[address]ZE[address]Z RO APRN 599.0 Urinary Tract Infection 12/02/2007 GAB BATISTA APRN R 599.0 Urinary Tract Infection 12/02/2007 EZEKIEL LERMA MD N 599.0 Urinary Tract Infection 12/02/2007 [facility]ARE[facility] APRN 599.0 Urinary Tract Infection 12/08/2007 486 Pneumonia Unspecified 12/08/2007 486 Pneumonia Unspecified 12/08/[address] APRN S 486 Pneumonia Unspecified 12/08/2007 PARKS DO, JULY K 486 Pneumonia Unspecified 12/08/2007 PARKS DO, JULY K 486 Pneumonia Unspecified 12/08/[address] LUISITO RO APRNA S 486 Pneumonia Unspecified 12/08/2007 486 Pneumonia Unspecified 12/08/2007 PARKS DO, JULY K 486 Pneumonia Unspecified 12/08/2007 486 Pneumonia Unspecified 12/08/2007 PARKS DO, JULY K 486 Pneumonia Unspecified 12/08/2007 ALESIA PAEZ APRN 486 Pneumonia Unspecified 12/08/2007 486 Pneumonia Unspecified 12/08/2007 486 Pneumonia Unspecified 12/08/2007 486 Pneumonia Unspecified 12/08/2007 486 Pneumonia Unspecified 12/08/2007 486 Pneumonia Unspecified 12/08/2007 KASEY MADRID JULY K 486 Pneumonia Unspecified 12/08/2007 FLORENTIN MARIO, EZEKIEL N 486 Pneumonia Unspecified 12/08/2007 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, GAB R 486 Pneumonia Unspecified 12/08/2007 FLORENTIN MARIO, EZEKIEL N 486 Pneumonia Unspecified 12/08/2007 FLORENTIN MARIO, EZEKIEL N 486 Pneumonia Unspecified 12/08/2007 ARIADNA OJEDA MD 486 Pneumonia Unspecified 12/08/2007 FLORENTIN MARIO, EZEKIEL N 486 Pneumonia Unspecified 12/08/2007 FLORENTIN MARIO, EZEKIEL N 486 Pneumonia Unspecified 12/08/2007 JULY PARKS DO K 486 Pneumonia Unspecified 12/08/2007 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, GAB R 486 Pneumonia Unspecified 12/08/2007 LYNNE RODRÍGUEZN, GAB R 486 Pneumonia Unspecified 12/08/2007 FLORENTIN MARIO, EZEKIEL N 486 Pneumonia Unspecified 12/08/2007 JULY PARKS DO K 486 Pneumonia Unspecified 12/08/2007 FLORENTIN MARIO, EZEKIEL N 486 Pneumonia Unspecified 12/08/2007 [facility] APRN 486 Pneumonia Unspecified 12/08/2007 486 Pneumonia Unspecified 12/08/[address] APRN S 486 Pneumonia Unspecified 12/08/2007 LYNNE VELASQUEZ, GAB R 486 Pneumonia Unspecified 12/08/2007 EZEKIEL LERMA MD N 486 Pneumonia Unspecified 12/08/2007 [facility] APRN 486 Pneumonia Unspecified 02/11/2008 611.72 Lump Or Mass In Breast 02/11/2008 782.1 Rash 02/11/2008 611.72 Lump Or Mass In Breast 02/11/2008 782.1 Rash 02/11/[address] APRN S 611.72 Lump Or Mass In Breast 02/11/2008 [address]ZEGORZ RO APRN S 782.1 Rash 02/11/2008 JULY PARKS DO K 611.72 Lump Or Mass In Breast 02/11/2008 PARKS DO, JULY K 782.1 Rash 02/11/2008 PARKS DO, JULY K 611.72 Lump Or Mass In Breast 02/11/2008 PARKS DO, JULY K 782.1 Rash 02/11/2008 TAVO RO APRNNDA S 611.72 Lump Or Mass In Breast 02/11/2008 JIA VELASQUEZ GRZEGORZ S 782.1 Rash 02/11/2008 611.72 Lump Or Mass In Breast 02/11/2008 782.1 Rash 02/11/2008 PARKS DO JULY K 611.72 Lump Or Mass In Breast 02/11/2008 PARKS DO, JULY K 782.1 Rash 02/11/2008 611.72 Lump Or Mass In Breast 02/11/2008 782.1 Rash 02/11/2008 KASEY MADRID JULY K 611.72 Lump Or Mass In Breast 02/11/2008 KASEY MADRID JULY K 782.1 Rash 02/11/2008 ALESIA PAEZ APRN M 611.72 Lump Or Mass In Breast 02/11/2008 ALESIA PAEZ APRN M 782.1 Rash 02/11/2008 611.72 Lump Or Mass In Breast 02/11/2008 782.1 Rash 02/11/2008 611.72 Lump Or Mass In Breast 02/11/2008 782.1 Rash 02/11/2008 611.72 Lump Or Mass In Breast 02/11/2008 782.1 Rash 02/11/2008 611.72 Lump Or Mass In Breast 02/11/2008 782.1 Rash 02/11/2008 611.72 Lump Or Mass In Breast 02/11/2008 782.1 Rash 02/11/2008 KASEY MADRID JULY K 611.72 Lump Or Mass In Breast 02/11/2008 KASEY MADRID JULY K 782.1 Rash 02/11/2008 EZEKIEL LERMA MD 611.72 Lump Or Mass In Breast 02/11/2008 EZEKIEL LERMA MD N 782.1 Rash 02/11/2008 GAB BATISTA APRN R 611.72 Lump Or Mass In Breast 02/11/2008 GAB BATISTA APRN R 782.1 Rash 02/11/2008 EZEKIEL LERMA MD N 611.72 Lump Or Mass In Breast 02/11/2008 EZEKIEL LERMA MD N 782.1 Rash 02/11/2008 EZEKIEL LERMA MD N 611.72 Lump Or Mass In Breast 02/11/2008 EZEKIEL LERMA MD N 782.1 Rash 02/11/2008 ARIADNA OJEDA MD 611.72 Lump Or Mass In Breast 02/11/2008 ARIADNA OJEDA MD 782.1 Rash 02/11/2008 EZEKIEL LERMA MD N 611.72 Lump Or Mass In Breast 02/11/2008 EZEKIEL LERMA MD N 782.1 Rash 02/11/2008 EZEKIEL LERMA MD N 611.72 Lump Or Mass In Breast 02/11/2008 EZEKIEL LERMA MD N 782.1 Rash 02/11/2008 MEG PARKS DOA K 611.72 Lump Or Mass In Breast 02/11/2008 MEG PARKS DOA K 782.1 Rash 02/11/2008 LYNNE VELASQUEZ, GAB R 611.72 Lump Or Mass In Breast 02/11/2008 LYNNE VELASQUEZ, GAB R 782.1 Rash 02/11/2008 LYNNE VELASQUEZ GAB R 611.72 Lump Or Mass In Breast 02/11/2008 LYNNE VELASQUEZ, GAB R 782.1 Rash 02/11/2008 EZEKIEL LERMA MD N 611.72 Lump Or Mass In Breast 02/11/2008 EZEKIEL LERMA MD N 782.1 Rash 02/11/2008 KASEY MADRID JULY K 611.72 Lump Or Mass In Breast 02/11/2008 KASEY MADRID JULY K 782.1 Rash 02/11/2008 EZEKIEL LERMA MD N 611.72 Lump Or Mass In Breast 02/11/2008 EZEKIEL LERMA MD N 782.1 Rash 02/11/2008 NOLAN ALMENDAREZ APRN 611.72 Lump Or Mass In Breast 02/11/2008 NOLAN ALMENDAREZ APRN 782.1 Rash 02/11/2008 611.72 Lump Or Mass In Breast 02/11/2008 782.1 Rash 02/11/2008 JIA VELASQUEZ GRZEGORZ S 611.72 Lump Or Mass In Breast 02/11/2008 TAVO RO APRNNDA S 782.1 Rash 02/11/2008 LYNNE VELASQUEZ GAB R 611.72 Lump Or Mass In Breast 02/11/2008 LYNNE VELASQUEZ GAB R 782.1 Rash 02/11/2008 EZEKIEL LERMA MD N 611.72 Lump Or Mass In Breast 02/11/2008 EZEKIEL LERMA MD N 782.1 Rash 02/11/2008 NOLAN ALMENDAREZ APRN 611.72 Lump Or Mass In Breast 02/11/2008 NOLAN ALMENDAREZ APRN 782.1 Rash 04/02/2008 691.8 Dermatitis Atopic Eczema 04/02/2008 786.2 Cough 04/02/2008 787.91 Diarrhea 04/02/2008 691.8 Dermatitis Atopic Eczema 04/02/2008 786.2 Cough 04/02/2008 787.91 Diarrhea 04/02/2008 TAVO RO APRNNDA S 691.8 Dermatitis Atopic Eczema 04/02/2008 JIA VELASQUEZ GRZEGORZ S 786.2 Cough 04/02/2008 JIA VELASQUEZ GRZEGORZ S 787.91 Diarrhea 04/02/2008 PARKS DO, JULY K 691.8 Dermatitis Atopic Eczema 04/02/2008 PARKS DO, JULY K 786.2 Cough 04/02/2008 PARKS DO, JULY K 787.91 Diarrhea 04/02/2008 PARKS DO, JUYL K 691.8 Dermatitis Atopic Eczema 04/02/2008 PARKS DO, JULY K 786.2 Cough 04/02/2008 PARKS DO, JULY K 787.91 Diarrhea 04/02/2008 JIA VELASQUEZ, GRZEGORZ S 691.8 Dermatitis Atopic Eczema 04/02/2008 JIA VELASQUEZ GRZEGORZ S 786.2 Cough 04/02/2008 JIA VELASQUEZ GRZEGORZ S 787.91 Diarrhea 04/02/2008 691.8 Dermatitis Atopic Eczema 04/02/2008 786.2 Cough 04/02/2008 787.91 Diarrhea 04/02/2008 PARKS DO, JULY K 691.8 Dermatitis Atopic Eczema 04/02/2008 PARKS DO, JULY K 786.2 Cough 04/02/2008 PARKS , JULY K 787.91 Diarrhea 04/02/2008 691.8 Dermatitis Atopic Eczema 04/02/2008 786.2 Cough 04/02/2008 787.91 Diarrhea 04/02/2008 PARKS DO, JULY K 691.8 Dermatitis Atopic Eczema 04/02/2008 KASEY MADRID, JULY K 786.2 Cough 04/02/2008 KASEY MADRID, JULY K 787.91 Diarrhea 04/02/2008 ALESIA PAEZ APRN 691.8 Dermatitis Atopic Eczema 04/02/2008 ALESIA PAEZ APRN 786.2 Cough 04/02/2008 ALESIA PAEZ APRN 787.91 Diarrhea 04/02/2008 691.8 Dermatitis Atopic Eczema 04/02/2008 786.2 Cough 04/02/2008 787.91 Diarrhea 04/02/2008 691.8 Dermatitis Atopic Eczema 04/02/2008 786.2 Cough 04/02/2008 787.91 Diarrhea 04/02/2008 691.8 Dermatitis Atopic Eczema 04/02/2008 786.2 Cough 04/02/2008 787.91 Diarrhea 04/02/2008 691.8 Dermatitis Atopic Eczema 04/02/2008 786.2 Cough 04/02/2008 787.91 Diarrhea 04/02/2008 691.8 Dermatitis Atopic Eczema 04/02/2008 786.2 Cough 04/02/2008 787.91 Diarrhea 04/02/2008 KASEY MADRID, JULY K 691.8 Dermatitis Atopic Eczema 04/02/2008 KASEY MADRID, JULY K 786.2 Cough 04/02/2008 KASEY MADRID JULY K 787.91 Diarrhea 04/02/2008 EZEKIEL LERMA MD N 691.8 Dermatitis Atopic Eczema 04/02/2008 EZEKIEL LERMA MD N 786.2 Cough 04/02/2008 EZEKIEL LERMA MD N 787.91 Diarrhea 04/02/2008 LYNNE VELASQUEZ, GAB R 691.8 Dermatitis Atopic Eczema 04/02/2008 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, GAB R 786.2 Cough 04/02/2008 LYNNE VELASQUEZ, GAB R 787.91 Diarrhea 04/02/2008 EZEKIEL LERMA MD N 691.8 Dermatitis Atopic Eczema 04/02/2008 EZEKIEL LERMA MD N 786.2 Cough 04/02/2008 FLORENTIN MARIO, EZEKIEL N 787.91 Diarrhea 04/02/2008 EZEKIEL LERMA MD N 691.8 Dermatitis Atopic Eczema 04/02/2008 EZEKIEL LERMA MD N 786.2 Cough 04/02/2008 EZEKIEL LERMA MD N 787.91 Diarrhea 04/02/2008 ARIADNA OJEDA MD 691.8 Dermatitis Atopic Eczema 04/02/2008 ARIADNA OJEDA MD 786.2 Cough 04/02/2008 ARIADNA OJEDA MD 787.91 Diarrhea 04/02/2008 EZEKIEL LERMA MD N 691.8 Dermatitis Atopic Eczema 04/02/2008 EZEKIEL LERMA MD N 786.2 Cough 04/02/2008 EZEKIEL LERMA MD N 787.91 Diarrhea 04/02/2008 EZEKIEL LERMA MD N 691.8 Dermatitis Atopic Eczema 04/02/2008 EZEKIEL LERMA MD N 786.2 Cough 04/02/2008 EZEKIEL LERMA MD N 787.91 Diarrhea 04/02/2008 PARKS DO JULY K 691.8 Dermatitis Atopic Eczema 04/02/2008 PARKS DO JULY K 786.2 Cough 04/02/2008 PARKS DO JULY K 787.91 Diarrhea 04/02/2008 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, GAB R 691.8 Dermatitis Atopic Eczema 04/02/2008 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, GAB R 786.2 Cough 04/02/2008 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, GAB R 787.91 Diarrhea 04/02/2008 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, GAB R 691.8 Dermatitis Atopic Eczema 04/02/2008 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, GAB R 786.2 Cough 04/02/2008 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, GAB R 787.91 Diarrhea 04/02/2008 EZEKIEL LERMA MD N 691.8 Dermatitis Atopic Eczema 04/02/2008 EZEKIEL LERMA MD N 786.2 Cough 04/02/2008 DANICA LERMA MDY N 787.91 Diarrhea 04/02/2008 PARKS DO JULY K 691.8 Dermatitis Atopic Eczema 04/02/2008 PARKS DO JULY K 786.2 Cough 04/02/2008 PARKS DO JULY K 787.91 Diarrhea 04/02/2008 EZEKIEL LERMA MD N 691.8 Dermatitis Atopic Eczema 04/02/2008 EZEKIEL LERMA MD N 786.2 Cough 04/02/2008 EZEKIEL LERMA MD N 787.91 Diarrhea 04/02/2008 NOLAN ALMENDAREZ APRN 691.8 Dermatitis Atopic Eczema 04/02/2008 NOLAN ALMENDAREZ APRN 786.2 Cough 04/02/2008 NOLAN ALMENDAREZ APRN 787.91 Diarrhea 04/02/2008 691.8 Dermatitis Atopic Eczema 04/02/2008 786.2 Cough 04/02/2008 787.91 Diarrhea 04/02/2008 LUISITO RO APRNA S 691.8 Dermatitis Atopic Eczema 04/02/2008 LUISITO RO APRNA S 786.2 Cough 04/02/2008 JIA VELASQUEZ GRZEGORZ S 787.91 Diarrhea 04/02/2008 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, GAB R 691.8 Dermatitis Atopic Eczema 04/02/2008 LYNNE RODRÍGUEZN, GAB R 786.2 Cough 04/02/2008 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, GAB R 787.91 Diarrhea 04/02/2008 EZEKIEL LERMA MD N 691.8 Dermatitis Atopic Eczema 04/02/2008 EZEKIEL LERMA MD N 786.2 Cough 04/02/2008 EZEKIEL LERMA MD N 787.91 Diarrhea 04/02/2008 NOLAN ALMENDAREZ APRN 691.8 Dermatitis Atopic Eczema 04/02/2008 NOLAN ALMENDAREZ APRN 786.2 Cough 04/02/2008 NOLAN ALMENDAREZ APRN 787.91 Diarrhea 06/12/2008 466.0 Acute Bronchitis 06/12/2008 466.0 Acute Bronchitis 06/12/[address] APRN S 466.0 Acute Bronchitis 06/12/2008 MEG PARKS DOA K 466.0 Acute Bronchitis 06/12/2008 MEG PARKS DOA K 466.0 Acute Bronchitis 06/12/[address] APRN S 466.0 Acute Bronchitis 06/12/2008 466.0 Acute Bronchitis 06/12/2008 MEG PARKS DOA K 466.0 Acute Bronchitis 06/12/2008 466.0 Acute Bronchitis 06/12/2008 PARKS DO JULY K 466.0 Acute Bronchitis 06/12/2008 ALESIA PAEZ APRN 466.0 Acute Bronchitis 06/12/2008 466.0 Acute Bronchitis 06/12/2008 466.0 Acute Bronchitis 06/12/2008 466.0 Acute Bronchitis 06/12/2008 466.0 Acute Bronchitis 06/12/2008 466.0 Acute Bronchitis 06/12/2008 KASEY MADRID JULY K 466.0 Acute Bronchitis 06/12/2008 EZEKIEL LERMA MD N 466.0 Acute Bronchitis 06/12/2008 LYNNE VELASQUEZ GAB R 466.0 Acute Bronchitis 06/12/2008 EZEKIEL LERMA MD N 466.0 Acute Bronchitis 06/12/2008 EZEKIEL LERMA MD N 466.0 Acute Bronchitis 06/12/2008 ARIADNA OJEDA MD 466.0 Acute Bronchitis 06/12/2008 EZEKIEL LERMA MD N 466.0 Acute Bronchitis 06/12/2008 EZEKIEL LERMA MD N 466.0 Acute Bronchitis 06/12/2008 JULY PARKS DO K 466.0 Acute Bronchitis 06/12/2008 LYNNE VELASQUEZ GAB R 466.0 Acute Bronchitis 06/12/2008 LYNNE VELASQUEZ GAB R 466.0 Acute Bronchitis 06/12/2008 EZEKIEL LERMA MD N 466.0 Acute Bronchitis 06/12/2008 JULY PARKS DO K 466.0 Acute Bronchitis 06/12/2008 EZEKIEL LERMA MD N 466.0 Acute Bronchitis 06/12/2008 NOLAN ALMENDAREZ APRN 466.0 Acute Bronchitis 06/12/2008 466.0 Acute Bronchitis 06/12/[address] APRN S 466.0 Acute Bronchitis 06/12/2008 LYNNE VELASQUEZ GAB R 466.0 Acute Bronchitis 06/12/2008 EZEKIEL LERMA MD N 466.0 Acute Bronchitis 06/12/2008 NOLAN ALMENDAREZ APRN 466.0 Acute Bronchitis 07/25/2008 244.9 HYPOTHYROIDISM 07/25/2008 244.9 HYPOTHYROIDISM 07/25/[address] APRNA S 244.9 HYPOTHYROIDISM 07/25/2008 MEG PARKS DOA K 244.9 HYPOTHYROIDISM 07/25/2008 MEG PARKS DOA K 244.9 HYPOTHYROIDISM 07/25/[address] APRNA S 244.9 HYPOTHYROIDISM 07/25/2008 244.9 HYPOTHYROIDISM 07/25/2008 PARKS DO, JULY K 244.9 HYPOTHYROIDISM 07/25/2008 244.9 HYPOTHYROIDISM 07/25/2008 PARKS DO, JULY K 244.9 HYPOTHYROIDISM 07/25/2008 ALESIA PAZE APRN 244.9 HYPOTHYROIDISM 07/25/2008 244.9 HYPOTHYROIDISM 07/25/2008 244.9 HYPOTHYROIDISM 07/25/2008 244.9 HYPOTHYROIDISM 07/25/2008 244.9 HYPOTHYROIDISM 07/25/2008 244.9 HYPOTHYROIDISM 07/25/2008 PARKS DO, JULY K 244.9 HYPOTHYROIDISM 07/25/2008 EZEKIEL LERMA MD N 244.9 HYPOTHYROIDISM 07/25/2008 GAB BATISTA APRN R 244.9 HYPOTHYROIDISM 07/25/2008 EZEKIEL LERMA MD N 244.9 HYPOTHYROIDISM 07/25/2008 EZEKIEL LERMA MD N 244.9 HYPOTHYROIDISM 07/25/2008 ARIADNA OJEDA MD 244.9 HYPOTHYROIDISM 07/25/2008 EZEKIEL LERMA MD 244.9 HYPOTHYROIDISM 07/25/2008 EZEKIEL LERMA MD N 244.9 HYPOTHYROIDISM 07/25/2008 KASEY MADRID, JULY K 244.9 HYPOTHYROIDISM 07/25/2008 GAB BATISTA APRN R 244.9 HYPOTHYROIDISM 07/25/2008 GAB BATISTA APRN R 244.9 HYPOTHYROIDISM 07/25/2008 EZEKIEL LERMA MD N 244.9 HYPOTHYROIDISM 07/25/2008 MEG PARKS DOA K 244.9 HYPOTHYROIDISM 07/25/2008 EZEKIEL LERMA MD N 244.9 HYPOTHYROIDISM 07/25/2008 NOLAN ALMENDAREZ APRN 244.9 HYPOTHYROIDISM 07/25/2008 244.9 HYPOTHYROIDISM 07/25/2008 GRZEGORZ RO APRN S 244.9 HYPOTHYROIDISM 07/25/2008 GAB BATISTA APRN R 244.9 HYPOTHYROIDISM 07/25/2008 EZEKIEL LERMA MD N 244.9 HYPOTHYROIDISM 07/25/2008 NOLAN ALMENDAREZ APRN 244.9 HYPOTHYROIDISM 08/01/2008 724.2 Lumbago 08/01/2008 724.2 Lumbago 08/01/[address] APRN S 724.2 Lumbago 08/01/2008 PARKS JULY MADRID K 724.2 Lumbago 08/01/2008 PARKS DO, JULY K 724.2 Lumbago 08/01/[address] APRN S 724.2 Lumbago 08/01/2008 724.2 Lumbago 08/01/2008 PARKS DO, JULY K 724.2 Lumbago 08/01/2008 724.2 Lumbago 08/01/2008 PARKS DO, JULY K 724.2 Lumbago 08/01/2008 ALESIA PAEZ APRN 724.2 Lumbago 08/01/2008 724.2 Lumbago 08/01/2008 724.2 Lumbago 08/01/2008 724.2 Lumbago 08/01/2008 724.2 Lumbago 08/01/2008 724.2 Lumbago 08/01/2008 PARKS , JULY K 724.2 Lumbago 08/01/2008 FLORENTIN MARIO, EZEKIEL N 724.2 Lumbago 08/01/2008 GAB BATISTA APRN R 724.2 Lumbago 08/01/2008 EZEKIEL LERMA MD N 724.2 Lumbago 08/01/2008 EZEKIEL LERMA MD N 724.2 Lumbago 08/01/2008 ARIADNA OJEDA MD 724.2 Lumbago 08/01/2008 EZEKIEL LERMA MD N 724.2 Lumbago 08/01/2008 EZEKIEL LERMA MD N 724.2 Lumbago 08/01/2008 PARKS , JULY K 724.2 Lumbago 08/01/2008 GAB BATISTA APRN R 724.2 Lumbago 08/01/2008 GAB BATISTA APRN R 724.2 Lumbago 08/01/2008 EZEKIEL LERMA MD N 724.2 Lumbago 08/01/2008 PARKS JULY K 724.2 Lumbago 08/01/2008 EZEKIEL LERMA MD N 724.2 Lumbago 08/01/2008 NOLAN ALMENDAREZ APRN 724.2 Lumbago 08/01/2008 724.2 Lumbago 08/01/[address] APRN S 724.2 Lumbago 08/01/2008 MARILYN BATISTA APRNINA R 724.2 Lumbago 08/01/2008 EZEKIEL LERMA MD 724.2 Lumbago 08/01/2008 ERICKSON 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, NOLAN [place] 724.2 Lumbago 08/28/2008 482.39 Pneumonia Due To Other Streptococcus 08/28/2008 482.39 Pneumonia Due To Other Streptococcus 08/28/2008 JIA 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, GRZEGORZ S 482.39 Pneumonia Due To Other Streptococcus 08/28/2008 PARKS DO, JULY K 482.39 Pneumonia Due To Other Streptococcus 08/28/2008 PARKS DO, JULY K 482.39 Pneumonia Due To Other Streptococcus 08/28/2008 JIA 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, GRZEGORZ S 482.39 Pneumonia Due To Other Streptococcus 08/28/2008 482.39 Pneumonia Due To Other Streptococcus 08/28/2008 PARKS DO, JULY K 482.39 Pneumonia Due To Other Streptococcus 08/28/2008 482.39 Pneumonia Due To Other Streptococcus 08/28/2008 PARKS DO, JULY K 482.39 Pneumonia Due To Other Streptococcus 08/28/2008 JEANNINE RODRÍGUEZN, ALESIA Blanchard 482.39 Pneumonia Due To Other Streptococcus 08/28/2008 482.39 Pneumonia Due To Other Streptococcus 08/28/2008 482.39 Pneumonia Due To Other Streptococcus 08/28/2008 482.39 Pneumonia Due To Other Streptococcus 08/28/2008 482.39 Pneumonia Due To Other Streptococcus 08/28/2008 482.39 Pneumonia Due To Other Streptococcus 08/28/2008 PARKS DO, JULY K 482.39 Pneumonia Due To Other Streptococcus 08/28/2008 EZEKIEL LERMA MD 482.39 Pneumonia Due To Other Streptococcus 08/28/2008 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, GAB Rivera 482.39 Pneumonia Due To Other Streptococcus 08/28/2008 EZEKIEL LERMA MD 482.39 Pneumonia Due To Other Streptococcus 08/28/2008 EZEKIEL LERMA MD 482.39 Pneumonia Due To Other Streptococcus 08/28/2008 ARIADNA OJEDA MD 482.39 Pneumonia Due To Other Streptococcus 08/28/2008 EZEKIEL LERMA MD 482.39 Pneumonia Due To Other Streptococcus 08/28/2008 EZEKIEL LERMA MD 482.39 Pneumonia Due To Other Streptococcus 08/28/2008 MEG PARKS DOA K 482.39 Pneumonia Due To Other Streptococcus 08/28/2008 GAB BATISTA APRN R 482.39 Pneumonia Due To Other Streptococcus 08/28/2008 GAB BATISTA APRN R 482.39 Pneumonia Due To Other Streptococcus 08/28/2008 EZEKIEL LERMA MD 482.39 Pneumonia Due To Other Streptococcus 08/28/2008 JULY PARKS DO K 482.39 Pneumonia Due To Other Streptococcus 08/28/2008 EZEKIEL LERMA MD 482.39 Pneumonia Due To Other Streptococcus 08/28/2008 NOLAN ALMENDAREZ APRN 482.39 Pneumonia Due To Other Streptococcus 08/28/2008 482.39 Pneumonia Due To Other Streptococcus 08/28/[address] APRN S 482.39 Pneumonia Due To Other Streptococcus 08/28/2008 GAB BATISTA APRN R 482.39 Pneumonia Due To Other Streptococcus 08/28/2008 EZEKIEL LERMA MD 482.39 Pneumonia Due To Other Streptococcus 08/28/2008 NOLAN ALMENDAREZ APRN 482.39 Pneumonia Due To Other Streptococcus 09/03/2008 530.81 Esophageal Reflux 09/03/2008 530.81 Esophageal Reflux 09/03/[address] APRN S 530.81 Esophageal Reflux 09/03/2008 MEG PARKS DOA K 530.81 Esophageal Reflux 09/03/2008 MEG PARKS DOA K 530.81 Esophageal Reflux 09/03/[address] APRN S 530.81 Esophageal Reflux 09/03/2008 530.81 Esophageal Reflux 09/03/2008 KASEY MADRID JULY K 530.81 Esophageal Reflux 09/03/2008 530.81 Esophageal Reflux 09/03/2008 PARKS DO JULY K 530.81 Esophageal Reflux 09/03/2008 ALESIA PAEZ APRN 530.81 Esophageal Reflux 09/03/2008 530.81 Esophageal Reflux 09/03/2008 530.81 Esophageal Reflux 09/03/2008 530.81 Esophageal Reflux 09/03/2008 530.81 Esophageal Reflux 09/03/2008 530.81 Esophageal Reflux 09/03/2008 KASEY MADRID JULY K 530.81 Esophageal Reflux 09/03/2008 EZEKIEL LERMA MD 530.81 Esophageal Reflux 09/03/2008 LYNNE VELASQUEZ GAB R 530.81 Esophageal Reflux 09/03/2008 FLORENTIN MARIO, EZEKIEL N 530.81 Esophageal Reflux 09/03/2008 FLORENTIN MARIO, EZEKIEL N 530.81 Esophageal Reflux 09/03/2008 ARIADNA OJEDA MD 530.81 Esophageal Reflux 09/03/2008 FLORENTIN MARIO, EZEKIEL N 530.81 Esophageal Reflux 09/03/2008 EZEKIEL LERMA MD N 530.81 Esophageal Reflux 09/03/2008 JULY PARKS DO K 530.81 Esophageal Reflux 09/03/2008 LYNNE VELASQUEZ GAB R 530.81 Esophageal Reflux 09/03/2008 MARILYN BATISTA APRNINA R 530.81 Esophageal Reflux 09/03/2008 FLORENTIN MARIO, EZEKIEL N 530.81 Esophageal Reflux 09/03/2008 JULY PARKS DO K 530.81 Esophageal Reflux 09/03/2008 FLORENTIN MARIO, EZEKIEL N 530.81 Esophageal Reflux 09/03/2008 NOLAN ALMENDAREZ APRN 530.81 Esophageal Reflux 09/03/2008 530.81 Esophageal Reflux 09/03/[address] APRN S 530.81 Esophageal Reflux 09/03/2008 GAB BATISTA APRN R 530.81 Esophageal Reflux 09/03/2008 EZEKIEL LERMA MD N 530.81 Esophageal Reflux 09/03/2008 NOLAN ALMENDAREZ APRN 530.81 Esophageal Reflux 09/20/2008 Ot 724.2 09/20/2008 Ot V57.1 11/14/2008 Ot 786.2 11/21/2008 627.2 Symptomatic Menopausal Or Female Climacteric States 11/21/2008 627.2 Symptomatic Menopausal Or Female Climacteric States 11/21/[address] APRN 627.2 Symptomatic Menopausal Or Female Climacteric States 11/21/2008 JULY PARKS DO K 627.2 Symptomatic Menopausal Or Female Climacteric States 11/21/2008 JULY PARKS DO 627.2 Symptomatic Menopausal Or Female Climacteric States 11/21/[address] APRN S 627.2 Symptomatic Menopausal Or Female Climacteric States 11/21/2008 627.2 Symptomatic Menopausal Or Female Climacteric States 11/21/2008 JULY PARKS DO 627.2 Symptomatic Menopausal Or Female Climacteric States 11/21/2008 627.2 Symptomatic Menopausal Or Female Climacteric States 11/21/2008 JULY PARKS DO K 627.2 Symptomatic Menopausal Or Female Climacteric States 11/21/2008 ALESIA PAEZ APRN 627.2 Symptomatic Menopausal Or Female Climacteric States 11/21/2008 627.2 Symptomatic Menopausal Or Female Climacteric States 11/21/2008 627.2 Symptomatic Menopausal Or Female Climacteric States 11/21/2008 627.2 Symptomatic Menopausal Or Female Climacteric States 11/21/2008 627.2 Symptomatic Menopausal Or Female Climacteric States 11/21/2008 627.2 Symptomatic Menopausal Or Female Climacteric States 11/21/2008 JULY PARKS DO K 627.2 Symptomatic Menopausal Or Female Climacteric States 11/21/2008 EZEKIEL LERMA MD 627.2 Symptomatic Menopausal Or Female Climacteric States 11/21/2008 LYNNE VELASQUEZ, GAB R 627.2 Symptomatic Menopausal Or Female Climacteric States 11/21/2008 EZEKIEL LERMA MD 627.2 Symptomatic Menopausal Or Female Climacteric States 11/21/2008 EZEKIEL LERMA MD 627.2 Symptomatic Menopausal Or Female Climacteric States 11/21/2008 ARIADNA OJEDA MD 627.2 Symptomatic Menopausal Or Female Climacteric States 11/21/2008 EZEKIEL LERMA MD 627.2 Symptomatic Menopausal Or Female Climacteric States 11/21/2008 EZEKIEL LERMA MD 627.2 Symptomatic Menopausal Or Female Climacteric States 11/21/2008 JULY PARKS DO K 627.2 Symptomatic Menopausal Or Female Climacteric States 11/21/2008 LYNNE RODRÍGUEZN, GAB R 627.2 Symptomatic Menopausal Or Female Climacteric States 11/21/2008 LYNNE VELASQUEZ, GAB R 627.2 Symptomatic Menopausal Or Female Climacteric States 11/21/2008 EZEKIEL LERMA MD N 627.2 Symptomatic Menopausal Or Female Climacteric States 11/21/2008 JULY PARKS DO 627.2 Symptomatic Menopausal Or Female Climacteric States 11/21/2008 EZEKIEL LERMA MD 627.2 Symptomatic Menopausal Or Female Climacteric States 11/21/2008 NOLAN ALMENDAREZ APRN 627.2 Symptomatic Menopausal Or Female Climacteric States 11/21/2008 627.2 Symptomatic Menopausal Or Female Climacteric States 11/21/[address] APRN S 627.2 Symptomatic Menopausal Or Female Climacteric States 11/21/2008 GAB BATISTA APRN 627.2 Symptomatic Menopausal Or Female Climacteric States 11/21/2008 EZEKIEL LERMA MD 627.2 Symptomatic Menopausal Or Female Climacteric States 11/21/2008 NOLAN ALMENDAREZ APRN 627.2 Symptomatic Menopausal Or Female Climacteric States 03/28/2009 Ot 486 03/28/2009 Ot 786.2 04/04/2009 300.4 DYSTHYMIC DISORDER 04/04/2009 466.0 Acute Bronchitis 04/04/2009 724.3 Sciatica 04/04/2009 300.4 DYSTHYMIC DISORDER 04/04/2009 466.0 Acute Bronchitis 04/04/2009 724.3 Sciatica 04/04/[address] APRNA S 300.4 DYSTHYMIC DISORDER 04/04/[address] APRNA S 466.0 Acute Bronchitis 04/04/[address] APRNA S 724.3 Sciatica 04/04/2009 PARKS DO, JULY K 300.4 DYSTHYMIC DISORDER 04/04/2009 PARKS DO, JULY K 466.0 Acute Bronchitis 04/04/2009 PARKS DO, JULY K 724.3 Sciatica 04/04/2009 PARKS DO, JULY K 300.4 DYSTHYMIC DISORDER 04/04/2009 PARKS DO, JULY K 466.0 Acute Bronchitis 04/04/2009 PARKS DO, JULY K 724.3 Sciatica 04/04/2009 [address] APRNNDA S 300.4 DYSTHYMIC DISORDER 04/04/2009 [address]O RO APRNNDA S 466.0 Acute Bronchitis 04/04/2009 TAVO RO APRNNDA S 724.3 Sciatica 04/04/2009 300.4 DYSTHYMIC DISORDER 04/04/2009 466.0 Acute Bronchitis 04/04/2009 724.3 Sciatica 04/04/2009 PARKS DO, JULY K 300.4 DYSTHYMIC DISORDER 04/04/2009 KASEY MADRID, JULY K 466.0 Acute Bronchitis 04/04/2009 KASEY MADRID, JULY K 724.3 Sciatica 04/04/2009 300.4 DYSTHYMIC DISORDER 04/04/2009 466.0 Acute Bronchitis 04/04/2009 724.3 Sciatica 04/04/2009 KASEY MADRID, JULY K 300.4 DYSTHYMIC DISORDER 04/04/2009 KASEY MADRID JULY K 466.0 Acute Bronchitis 04/04/2009 KASEY MADRID JULY K 724.3 Sciatica 04/04/2009 ALESIA PAEZ APRN M 300.4 DYSTHYMIC DISORDER 04/04/2009 ALESIA PAEZ APRN M 466.0 Acute Bronchitis 04/04/2009 ALESIA PAEZ APRN M 724.3 Sciatica 04/04/2009 300.4 DYSTHYMIC DISORDER 04/04/2009 466.0 Acute Bronchitis 04/04/2009 724.3 Sciatica 04/04/2009 300.4 DYSTHYMIC DISORDER 04/04/2009 466.0 Acute Bronchitis 04/04/2009 724.3 Sciatica 04/04/2009 300.4 DYSTHYMIC DISORDER 04/04/2009 466.0 Acute Bronchitis 04/04/2009 724.3 Sciatica 04/04/2009 300.4 DYSTHYMIC DISORDER 04/04/2009 466.0 Acute Bronchitis 04/04/2009 724.3 Sciatica 04/04/2009 300.4 DYSTHYMIC DISORDER 04/04/2009 466.0 Acute Bronchitis 04/04/2009 724.3 Sciatica 04/04/2009 KASEY MADRID JULY K 300.4 DYSTHYMIC DISORDER 04/04/2009 KASEY MADRID JULY K 466.0 Acute Bronchitis 04/04/2009 KASEY MADRID JULY K 724.3 Sciatica 04/04/2009 EZEKIEL LERMA MD N 300.4 DYSTHYMIC DISORDER 04/04/2009 EZEKIEL LERMA MD N 466.0 Acute Bronchitis 04/04/2009 EZEKIEL LERMA MD N 724.3 Sciatica 04/04/2009 LYNNE VELASQUEZ, GAB R 300.4 DYSTHYMIC DISORDER 04/04/2009 LYNNE RODRÍGEUZN, GAB R 466.0 Acute Bronchitis 04/04/2009 LYNNE VELASQUEZ, GAB R 724.3 Sciatica 04/04/2009 EZEKIEL LERMA MD N 300.4 DYSTHYMIC DISORDER 04/04/2009 EZEKIEL LERMA MD N 466.0 Acute Bronchitis 04/04/2009 EZEKIEL LERMA MD N 724.3 Sciatica 04/04/2009 EZEKIEL LERMA MD N 300.4 DYSTHYMIC DISORDER 04/04/2009 FLORENTIN MARIO EZEKIEL N 466.0 Acute Bronchitis 04/04/2009 EZEKIEL LERMA MD N 724.3 Sciatica 04/04/2009 ARIADNA OJEDA MD 300.4 DYSTHYMIC DISORDER 04/04/2009 ARIADNA OJEDA MD 466.0 Acute Bronchitis 04/04/2009 ARIADNA OJEDA MD 724.3 Sciatica 04/04/2009 EZEKIEL LERMA MD N 300.4 DYSTHYMIC DISORDER 04/04/2009 EZEKIEL LERMA MD N 466.0 Acute Bronchitis 04/04/2009 EZEKIEL LERMA MD N 724.3 Sciatica 04/04/2009 EZEKIEL LERMA MD N 300.4 DYSTHYMIC DISORDER 04/04/2009 EZEKIEL LERMA MD N 466.0 Acute Bronchitis 04/04/2009 EZEKIEL LERMA MD N 724.3 Sciatica 04/04/2009 PARKS DO, JULY K 300.4 DYSTHYMIC DISORDER 04/04/2009 PARKS DO, JULY K 466.0 Acute Bronchitis 04/04/2009 PARKS DO, JULY K 724.3 Sciatica 04/04/2009 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, GAB R 300.4 DYSTHYMIC DISORDER 04/04/2009 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, GAB R 466.0 Acute Bronchitis 04/04/2009 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, GAB R 724.3 Sciatica 04/04/2009 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, GAB R 300.4 DYSTHYMIC DISORDER 04/04/2009 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, GAB R 466.0 Acute Bronchitis 04/04/2009 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, GAB R 724.3 Sciatica 04/04/2009 FLORENTIN MARIO EZEKIEL N 300.4 DYSTHYMIC DISORDER 04/04/2009 FLORENTIN MARIO EZEKIEL N 466.0 Acute Bronchitis 04/04/2009 EZEKIEL LERMA MD N 724.3 Sciatica 04/04/2009 PARKS DO, JULY K 300.4 DYSTHYMIC DISORDER 04/04/2009 KASEY MADRID JULY K 466.0 Acute Bronchitis 04/04/2009 MEG PARKS DOA K 724.3 Sciatica 04/04/2009 EZEKIEL LERMA MD N 300.4 DYSTHYMIC DISORDER 04/04/2009 EZEKIEL LERMA MD N 466.0 Acute Bronchitis 04/04/2009 EZEKIEL LERMA MD N 724.3 Sciatica 04/04/2009 NOLAN ALMENDAREZ APRN 300.4 DYSTHYMIC DISORDER 04/04/2009 NOLAN ALMENDAREZ APRN 466.0 Acute Bronchitis 04/04/2009 NOLAN ALMENDAREZ APRN 724.3 Sciatica 04/04/2009 300.4 DYSTHYMIC DISORDER 04/04/2009 466.0 Acute Bronchitis 04/04/2009 724.3 Sciatica 04/04/[address] APRN S 300.4 DYSTHYMIC DISORDER 04/04/[address] APRN S 466.0 Acute Bronchitis 04/04/[address] APRN S 724.3 Sciatica 04/04/2009 LYNNE VELASQUEZ GBA R 300.4 DYSTHYMIC DISORDER 04/04/2009 LYNNE VELASQUEZ GAB R 466.0 Acute Bronchitis 04/04/2009 LYNNE VELASQUEZ GAB R 724.3 Sciatica 04/04/2009 EZEKIEL LERMA MD N 300.4 DYSTHYMIC DISORDER 04/04/2009 EZEKIEL LERMA MD N 466.0 Acute Bronchitis 04/04/2009 EZEKIEL LERMA MD N 724.3 Sciatica 04/04/2009 NOLAN ALMENDAREZ APRN 300.4 DYSTHYMIC DISORDER 04/04/2009 NOLAN ALMENDAREZ APRN 466.0 Acute Bronchitis 04/04/2009 NOLAN ALMENDAREZ APRN 724.3 Sciatica 05/20/2009 V74.1 Screening Examination For Pulmonary Tuberculosis 05/20/2009 V74.1 Screening Examination For Pulmonary Tuberculosis 05/20/[address] APRN S V74.1 Screening Examination For Pulmonary Tuberculosis 05/20/2009 JULY PARKS DO K V74.1 Screening Examination For Pulmonary Tuberculosis 05/20/2009 PARKS DO, JULY K V74.1 Screening Examination For Pulmonary Tuberculosis 05/20/[address] APRN V74.1 Screening Examination For Pulmonary Tuberculosis 05/20/2009 V74.1 Screening Examination For Pulmonary Tuberculosis 05/20/2009 PARKS DO JULY K V74.1 Screening Examination For Pulmonary Tuberculosis 05/20/2009 V74.1 Screening Examination For Pulmonary Tuberculosis 05/20/2009 MEG PARKS DOA K V74.1 Screening Examination For Pulmonary Tuberculosis 05/20/2009 ALESIA PAEZ APRN V74.1 Screening Examination For Pulmonary Tuberculosis 05/20/2009 V74.1 Screening Examination For Pulmonary Tuberculosis 05/20/2009 V74.1 Screening Examination For Pulmonary Tuberculosis 05/20/2009 V74.1 Screening Examination For Pulmonary Tuberculosis 05/20/2009 V74.1 Screening Examination For Pulmonary Tuberculosis 05/20/2009 V74.1 Screening Examination For Pulmonary Tuberculosis 05/20/2009 MEG PARKS DOA K V74.1 Screening Examination For Pulmonary Tuberculosis 05/20/2009 EZEKIEL LERMA MD V74.1 Screening Examination For Pulmonary Tuberculosis 05/20/2009 LYNNE VELASQUEZ, GAB R V74.1 Screening Examination For Pulmonary Tuberculosis 05/20/2009 EZEKIEL LERMA MD V74.1 Screening Examination For Pulmonary Tuberculosis 05/20/2009 EZEKIEL LERMA MD V74.1 Screening Examination For Pulmonary Tuberculosis 05/20/2009 ARIADNA OJEDA MD V74.1 Screening Examination For Pulmonary Tuberculosis 05/20/2009 EZEKIEL LERMA MD V74.1 Screening Examination For Pulmonary Tuberculosis 05/20/2009 EZEKIEL LERMA MD V74.1 Screening Examination For Pulmonary Tuberculosis 05/20/2009 JULY PARKS DO K V74.1 Screening Examination For Pulmonary Tuberculosis 05/20/2009 MARILYN BATISTA APRNINA R V74.1 Screening Examination For Pulmonary Tuberculosis 05/20/2009 MARILYN BATISTA APRNINA R V74.1 Screening Examination For Pulmonary Tuberculosis 05/20/2009 EZEKIEL LERMA MD V74.1 Screening Examination For Pulmonary Tuberculosis 05/20/2009 MEG PARKS DOA K V74.1 Screening Examination For Pulmonary Tuberculosis 05/20/2009 EZEKIEL LERMA MD V74.1 Screening Examination For Pulmonary Tuberculosis 05/20/2009 NOLAN ALMENDAREZ APRN V74.1 Screening Examination For Pulmonary Tuberculosis 05/20/2009 V74.1 Screening Examination For Pulmonary Tuberculosis 05/20/[address] APRN S V74.1 Screening Examination For Pulmonary Tuberculosis 05/20/2009 GAB BATISTA APRN R V74.1 Screening Examination For Pulmonary Tuberculosis 05/20/2009 EZEKIEL LERMA MD V74.1 Screening Examination For Pulmonary Tuberculosis 05/20/2009 NOLAN ALMENDAREZ APRN V74.1 Screening Examination For Pulmonary Tuberculosis 07/15/2009 482.9 Bacterial Pneumonia 07/15/2009 482.9 Bacterial Pneumonia 07/15/[address] APRN S 482.9 Bacterial Pneumonia 07/15/2009 PARKS DO, JULY K 482.9 Bacterial Pneumonia 07/15/2009 PARKS DO, JULY K 482.9 Bacterial Pneumonia 07/15/[address] APRNA S 482.9 Bacterial Pneumonia 07/15/2009 482.9 Bacterial Pneumonia 07/15/2009 PARKS DO, JULY K 482.9 Bacterial Pneumonia 07/15/2009 482.9 Bacterial Pneumonia 07/15/2009 PARKS DO, JULY K 482.9 Bacterial Pneumonia 07/15/2009 ALESIA PAEZ APRN 482.9 Bacterial Pneumonia 07/15/2009 482.9 Bacterial Pneumonia 07/15/2009 482.9 Bacterial Pneumonia 07/15/2009 482.9 Bacterial Pneumonia 07/15/2009 482.9 Bacterial Pneumonia 07/15/2009 482.9 Bacterial Pneumonia 07/15/2009 PARKS DO, JULY K 482.9 Bacterial Pneumonia 07/15/2009 EZEKIEL LERMA MD N 482.9 Bacterial Pneumonia 07/15/2009 GAB BATISTA APRN R 482.9 Bacterial Pneumonia 07/15/2009 EZEKIEL LERMA MD 482.9 Bacterial Pneumonia 07/15/2009 EZEKIEL LERMA MD 482.9 Bacterial Pneumonia 07/15/2009 ARIADNA OJEDA MD 482.9 Bacterial Pneumonia 07/15/2009 EZEKIEL LERMA MD 482.9 Bacterial Pneumonia 07/15/2009 EZEKIEL LERMA MD 482.9 Bacterial Pneumonia 07/15/2009 MEG PARKS DOA K 482.9 Bacterial Pneumonia 07/15/2009 MARILYN BATISTA APRNINA R 482.9 Bacterial Pneumonia 07/15/2009 MARILYN BATISTA APRNINA R 482.9 Bacterial Pneumonia 07/15/2009 EZEKIEL LERMA MD 482.9 Bacterial Pneumonia 07/15/2009 JULY PARKS DO K 482.9 Bacterial Pneumonia 07/15/2009 EZEKIEL LERMA MD 482.9 Bacterial Pneumonia 07/15/2009 NOLAN ALMENDAREZ APRN 482.9 Bacterial Pneumonia 07/15/2009 482.9 Bacterial Pneumonia 07/15/[address] APRN S 482.9 Bacterial Pneumonia 07/15/2009 GAB BATISTA APRN R 482.9 Bacterial Pneumonia 07/15/2009 EZEKIEL LERMA MD N 482.9 Bacterial Pneumonia 07/15/2009 NOLAN ALMENDAREZ APRN 482.9 Bacterial Pneumonia 09/12/2009 Ot 722.52 09/14/2009 Ot 722.52 09/14/2009 Ot 349.0 09/14/2009 Ot 466.0 09/14/2009 Ot 784.0 09/18/2009 339.8 OTHER SPECIFIED HEADACHE SYNDROMES 09/18/2009 339.8 OTHER SPECIFIED HEADACHE SYNDROMES 09/18/[address] APRN S 339.8 OTHER SPECIFIED HEADACHE SYNDROMES 09/18/2009 JULY PARKS DO K 339.8 OTHER SPECIFIED HEADACHE SYNDROMES 09/18/2009 JULY PARKS DO K 339.8 OTHER SPECIFIED HEADACHE SYNDROMES 09/18/[address] APRN S 339.8 OTHER SPECIFIED HEADACHE SYNDROMES 09/18/2009 339.8 OTHER SPECIFIED HEADACHE SYNDROMES 09/18/2009 JULY PARKS DO K 339.8 OTHER SPECIFIED HEADACHE SYNDROMES 09/18/2009 339.8 OTHER SPECIFIED HEADACHE SYNDROMES 09/18/2009 JULY PARKS DO K 339.8 OTHER SPECIFIED HEADACHE SYNDROMES 09/18/2009 ALESIA PAEZ APRN 339.8 OTHER SPECIFIED HEADACHE SYNDROMES 09/18/2009 339.8 OTHER SPECIFIED HEADACHE SYNDROMES 09/18/2009 339.8 OTHER SPECIFIED HEADACHE SYNDROMES 09/18/2009 339.8 OTHER SPECIFIED HEADACHE SYNDROMES 09/18/2009 339.8 OTHER SPECIFIED HEADACHE SYNDROMES 09/18/2009 339.8 OTHER SPECIFIED HEADACHE SYNDROMES 09/18/2009 PARKS MEG MADRIDA K 339.8 OTHER SPECIFIED HEADACHE SYNDROMES 09/18/2009 EZEKIEL LERMA MD N 339.8 OTHER SPECIFIED HEADACHE SYNDROMES 09/18/2009 MARILYN BATISTA APRNINA R 339.8 OTHER SPECIFIED HEADACHE SYNDROMES 09/18/2009 EZEKIEL LERMA MD N 339.8 OTHER SPECIFIED HEADACHE SYNDROMES 09/18/2009 EZEKIEL LERMA MD N 339.8 OTHER SPECIFIED HEADACHE SYNDROMES 09/18/2009 ARIADNA OJEDA MD 339.8 OTHER SPECIFIED HEADACHE SYNDROMES 09/18/2009 EZEKIEL LERMA MD N 339.8 OTHER SPECIFIED HEADACHE SYNDROMES 09/18/2009 EZEKIEL LERMA MD N 339.8 OTHER SPECIFIED HEADACHE SYNDROMES 09/18/2009 PARKS JULY MADRID K 339.8 OTHER SPECIFIED HEADACHE SYNDROMES 09/18/2009 GAB BATISTA APRN R 339.8 OTHER SPECIFIED HEADACHE SYNDROMES 09/18/2009 GAB BATISTA APRN R 339.8 OTHER SPECIFIED HEADACHE SYNDROMES 09/18/2009 EZEKIEL LERMA MD N 339.8 OTHER SPECIFIED HEADACHE SYNDROMES 09/18/2009 JULY PARKS DO K 339.8 OTHER SPECIFIED HEADACHE SYNDROMES 09/18/2009 EZEKIEL LERMA MD N 339.8 OTHER SPECIFIED HEADACHE SYNDROMES 09/18/2009 NOLAN ALMENDAREZ APRN 339.8 OTHER SPECIFIED HEADACHE SYNDROMES 09/18/2009 339.8 OTHER SPECIFIED HEADACHE SYNDROMES 09/18/[address] APRN 339.8 OTHER SPECIFIED HEADACHE SYNDROMES 09/18/2009 GAB BATISTA APRN R 339.8 OTHER SPECIFIED HEADACHE SYNDROMES 09/18/2009 EZEKIEL LERMA MD N 339.8 OTHER SPECIFIED HEADACHE SYNDROMES 09/18/2009 NOLAN ALMENDAREZ APRN 339.8 OTHER SPECIFIED HEADACHE SYNDROMES 09/19/2009 Ot 349.0 10/29/2009 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 10/29/2009 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, Tobacco Use Disorder 10/29/2009 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 10/29/2009 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, Tobacco Use Disorder 10/29/[address] APRN 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 10/29/[address] APRN 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, Tobacco Use Disorder 10/29/2009 JULY PARKS DO 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 10/29/2009 JULY PARKS DO 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, Tobacco Use Disorder 10/29/2009 JULY PARKS DO K 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 10/29/2009 JULY PARKS DO K 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, Tobacco Use Disorder 10/29/[address] APRNA S 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 10/29/2009 [address] APRNA S 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, Tobacco Use Disorder 10/29/2009 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 10/29/2009 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, Tobacco Use Disorder 10/29/2009 JULY PARKS DO 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 10/29/2009 JULY PARKS DO 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, Tobacco Use Disorder 10/29/2009 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 10/29/2009 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, Tobacco Use Disorder 10/29/2009 JULY PARKS DO 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 10/29/2009 JULY PARKS DO 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, Tobacco Use Disorder 10/29/2009 ALESIA PAEZ APRN 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 10/29/2009 ALESIA PAEZ APRN 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, Tobacco Use Disorder 10/29/2009 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 10/29/2009 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, Tobacco Use Disorder 10/29/2009 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 10/29/2009 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, Tobacco Use Disorder 10/29/2009 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 10/29/2009 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, Tobacco Use Disorder 10/29/2009 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 10/29/2009 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, Tobacco Use Disorder 10/29/2009 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 10/29/2009 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, Tobacco Use Disorder 10/29/2009 PARKS DO JULY K 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 10/29/2009 PARKS DOMEGA K 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, Tobacco Use Disorder 10/29/2009 EZEKIEL LERMA MD 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 10/29/2009 EZEKIEL LERMA MD 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, Tobacco Use Disorder 10/29/2009 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, 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 10/29/2009 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, 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, Tobacco Use Disorder 10/29/2009 EZEKIEL LERMA MD N 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 10/29/2009 EZEKIEL LERMA MD 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, Tobacco Use Disorder 10/29/2009 EZEKIEL LERMA MD 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 10/29/2009 EZEKIEL LERMA MD 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, Tobacco Use Disorder 10/29/2009 ARIADNA OJEDA MD 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 10/29/2009 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, GAB R 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, Tobacco Use Disorder 10/29/2009 GAB BATISTA APRN R 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 10/29/2009 LYNNE VELASQUEZ GAB R 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, Tobacco Use Disorder 10/29/2009 EZEKIEL LERMA MD N 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 10/29/2009 EZEKIEL LERMA MD N 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, Tobacco Use Disorder 10/29/2009 PARKS DO, JULY K 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 10/29/2009 PARKS DO, JULY K 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, Tobacco Use Disorder 10/29/2009 EZEKIEL LERMA MD N 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 10/29/2009 EZEKIEL LERMA MD 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, Tobacco Use Disorder 10/29/2009 NOLAN ALMENDAREZ APRN 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 10/29/2009 NOLAN ALMENDAREZ APRN 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, Tobacco Use Disorder 10/29/2009 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 10/29/2009 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, Tobacco Use Disorder 10/29/2009 GRZEGORZ RO APRN S 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 10/29/2009 GRZEGORZ RO APRN S 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, Tobacco Use Disorder 10/29/2009 GAB BATISTA APRN R 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 10/29/2009 GAB BATISTA APRN R 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, Tobacco Use Disorder 10/29/2009 EZEKIEL LERMA MD N 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 10/29/2009 EZEKIEL LERMA MD 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, Tobacco Use Disorder 10/29/2009 NOLAN ALMENDAREZ APRN 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 10/29/2009 NOLAN ALMENDAREZ APRN 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, Tobacco Use Disorder 02/04/2010 599.0 Urinary Tract Infection Site Not Specified 02/04/2010 599.0 Urinary Tract Infection Site Not Specified 02/04/2010 LUISITO RO APRNA S 599.0 Urinary Tract Infection Site Not Specified 02/04/2010 PARKS DO, JULY K 599.0 Urinary Tract Infection Site Not Specified 02/04/2010 PARKS DO, JULY K 599.0 Urinary Tract Infection Site Not Specified 02/04/2010 LUISITO RO APRNA S 599.0 Urinary Tract Infection Site Not Specified 02/04/2010 599.0 Urinary Tract Infection Site Not Specified 02/04/2010 PARKS DO, JULY K 599.0 Urinary Tract Infection Site Not Specified 02/04/2010 599.0 Urinary Tract Infection Site Not Specified 02/04/2010 PARKS DO, JULY K 599.0 Urinary Tract Infection Site Not Specified 02/04/2010 ALESIA PAEZ APRN 599.0 Urinary Tract Infection Site Not Specified 02/04/2010 599.0 Urinary Tract Infection Site Not Specified 02/04/2010 599.0 Urinary Tract Infection Site Not Specified 02/04/2010 599.0 Urinary Tract Infection Site Not Specified 02/04/2010 599.0 Urinary Tract Infection Site Not Specified 02/04/2010 599.0 Urinary Tract Infection Site Not Specified 02/04/2010 PARKS DO, JULY K 599.0 Urinary Tract Infection Site Not Specified 02/04/2010 EZEKIEL LERMA MD 599.0 Urinary Tract Infection Site Not Specified 02/04/2010 GAB BATISTA APRN R 599.0 Urinary Tract Infection Site Not Specified 02/04/2010 EZEKIEL LEMRA MD N 599.0 Urinary Tract Infection Site Not Specified 02/04/2010 EZEKIEL LERMA MD 599.0 Urinary Tract Infection Site Not Specified 02/04/2010 ARIADNA OJEDA MD 599.0 Urinary Tract Infection Site Not Specified 02/04/2010 EZEKIEL LERMA MD 599.0 Urinary Tract Infection Site Not Specified 02/04/2010 EZEKIEL LERMA MD 599.0 Urinary Tract Infection Site Not Specified 02/04/2010 PARKS DO, JULY K 599.0 Urinary Tract Infection Site Not Specified 02/04/2010 GAB BATISTA APRN R 599.0 Urinary Tract Infection Site Not Specified 02/04/2010 GAB BATISTA APRN R 599.0 Urinary Tract Infection Site Not Specified 02/04/2010 EZEKIEL LERMA MD 599.0 Urinary Tract Infection Site Not Specified 02/04/2010 JULY PARKS DO 599.0 Urinary Tract Infection Site Not Specified 02/04/2010 EZEKIEL LERMA MD N 599.0 Urinary Tract Infection Site Not Specified 02/04/2010 NOLAN ALMENDAREZ APRN 599.0 Urinary Tract Infection Site Not Specified 02/04/2010 599.0 Urinary Tract Infection Site Not Specified 02/04/[address] RO APRN 599.0 Urinary Tract Infection Site Not Specified 02/04/2010 GAB BATISTA APRN 599.0 Urinary Tract Infection Site Not Specified 02/04/2010 EZEKIEL LERMA MD N 599.0 Urinary Tract Infection Site Not Specified 02/04/2010 NOLAN ALMENDAREZ APRN 599.0 Urinary Tract Infection Site Not Specified 03/28/2010 460 Acute Nasopharyngitis (common Cold) 03/28/2010 460 Acute Nasopharyngitis (common Cold) 03/28/2010 [address] RO APRN S 460 Acute Nasopharyngitis (common Cold) 03/28/2010 JULY PARKS DO K 460 Acute Nasopharyngitis (common Cold) 03/28/2010 JULY PARKS DO K 460 Acute Nasopharyngitis (common Cold) 03/28/2010 [address]ZE[address]Z RO APRN S 460 Acute Nasopharyngitis (common Cold) 03/28/2010 460 Acute Nasopharyngitis (common Cold) 03/28/2010 JULY PARKS DO K 460 Acute Nasopharyngitis (common Cold) 03/28/2010 460 Acute Nasopharyngitis (common Cold) 03/28/2010 JULY PARKS DO K 460 Acute Nasopharyngitis (common Cold) 03/28/2010 ALESIA PAEZ APRN 460 Acute Nasopharyngitis (common Cold) 03/28/2010 460 Acute Nasopharyngitis (common Cold) 03/28/2010 460 Acute Nasopharyngitis (common Cold) 03/28/2010 460 Acute Nasopharyngitis (common Cold) 03/28/2010 460 Acute Nasopharyngitis (common Cold) 03/28/2010 460 Acute Nasopharyngitis (common Cold) 03/28/2010 JULY PARKS DO K 460 Acute Nasopharyngitis (common Cold) 03/28/2010 EZEKIEL LERMA MD 460 Acute Nasopharyngitis (common Cold) 03/28/2010 GAB BATISTA APRN 460 Acute Nasopharyngitis (common Cold) 03/28/2010 EZEKIEL LERMA MD 460 Acute Nasopharyngitis (common Cold) 03/28/2010 EZEKIEL LERMA MD 460 Acute Nasopharyngitis (common Cold) 03/28/2010 ARIADNA OJEDA MD 460 Acute Nasopharyngitis (common Cold) 03/28/2010 EZEKIEL LERMA MD 460 Acute Nasopharyngitis (common Cold) 03/28/2010 EZEKIEL LERMA MD 460 Acute Nasopharyngitis (common Cold) 03/28/2010 JULY PARKS DO 460 Acute Nasopharyngitis (common Cold) 03/28/2010 GAB BATISTA APRN 460 Acute Nasopharyngitis (common Cold) 03/28/2010 GAB BATISTA APRN 460 Acute Nasopharyngitis (common Cold) 03/28/2010 EZEKIEL LERMA MD 460 Acute Nasopharyngitis (common Cold) 03/28/2010 JULY PARKS DO 460 Acute Nasopharyngitis (common Cold) 03/28/2010 EZEKIEL LERMA MD 460 Acute Nasopharyngitis (common Cold) 03/28/2010 NOLAN ALMENDAREZ APRN 460 Acute Nasopharyngitis (common Cold) 03/28/2010 460 Acute Nasopharyngitis (common Cold) 03/28/2010 [address]ZEGORZ RO APRN 460 Acute Nasopharyngitis (common Cold) 03/28/2010 GAB BATISTA APRN 460 Acute Nasopharyngitis (common Cold) 03/28/2010 EZEKIEL LERMA MD 460 Acute Nasopharyngitis (common Cold) 03/28/2010 NOLAN ALMENDAREZ APRN 460 Acute Nasopharyngitis (common Cold) 06/26/2010 789.01 Abdominal Pain Right Upper Quadrant 06/26/2010 V72.31 Hired Worker Exam, Routine 06/26/2010 789.01 Abdominal Pain Right Upper Quadrant 06/26/2010 V72.31 Hired Worker Exam, Routine 06/26/2010 JIA 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, GRZEGORZ S 789.01 Abdominal Pain Right Upper Quadrant 06/26/2010 TAVO RO APRNNDA S V72.31 Hired Worker Exam, Routine 06/26/2010 PARKS DO, JULY K 789.01 Abdominal Pain Right Upper Quadrant 06/26/2010 PARKS DO, JULY K V72.31 Hired Worker Exam, Routine 06/26/2010 PARKS DO, JULY K 789.01 Abdominal Pain Right Upper Quadrant 06/26/2010 PARKS DO, JULY K V72.31 Hired Worker Exam, Routine 06/26/2010 LUISITO RO APRNA S 789.01 Abdominal Pain Right Upper Quadrant 06/26/2010 TAVO RO APRNNDA S V72.31 Hired Worker Exam, Routine 06/26/2010 789.01 Abdominal Pain Right Upper Quadrant 06/26/2010 V72.31 Hired Worker Exam, Routine 06/26/2010 PARKS DO, JULY K 789.01 Abdominal Pain Right Upper Quadrant 06/26/2010 PARKS DO, JULY K V72.31 Hired Worker Exam, Routine 06/26/2010 789.01 Abdominal Pain Right Upper Quadrant 06/26/2010 V72.31 Hired Worker Exam, Routine 06/26/2010 PARKS DO, JULY K 789.01 Abdominal Pain Right Upper Quadrant 06/26/2010 PARKS DO, JULY K V72.31 Hired Worker Exam, Routine 06/26/2010 ALESIA PAEZ APRN 789.01 Abdominal Pain Right Upper Quadrant 06/26/2010 ALESIA PAEZ APRN V72.31 Hired Worker Exam, Routine 06/26/2010 789.01 Abdominal Pain Right Upper Quadrant 06/26/2010 V72.31 Hired Worker Exam, Routine 06/26/2010 789.01 Abdominal Pain Right Upper Quadrant 06/26/2010 V72.31 Hired Worker Exam, Routine 06/26/2010 789.01 Abdominal Pain Right Upper Quadrant 06/26/2010 V72.31 Hired Worker Exam, Routine 06/26/2010 789.01 Abdominal Pain Right Upper Quadrant 06/26/2010 V72.31 Hired Worker Exam, Routine 06/26/2010 789.01 Abdominal Pain Right Upper Quadrant 06/26/2010 V72.31 Hired Worker Exam, Routine 06/26/2010 PARKS DO, JULY K 789.01 Abdominal Pain Right Upper Quadrant 06/26/2010 PARKS DO, JULY K V72.31 Hired Worker Exam, Routine 06/26/2010 EZEKIEL LERMA MD N 789.01 Abdominal Pain Right Upper Quadrant 06/26/2010 EZEKIEL LERMA MD V72.31 Hired Worker Exam, Routine 06/26/2010 GAB BATISTA APRN R 789.01 Abdominal Pain Right Upper Quadrant 06/26/2010 LYNNE VELASQUEZ, GAB R V72.31 Hired Worker Exam, Routine 06/26/2010 EZEKIEL LERMA MD 789.01 Abdominal Pain Right Upper Quadrant 06/26/2010 EZEKIEL LERMA MD V72.31 Hired Worker Exam, Routine 06/26/2010 EZEKIEL LERMA MD 789.01 Abdominal Pain Right Upper Quadrant 06/26/2010 EZEKIEL LERMA MD V72.31 Hired Worker Exam, Routine 06/26/2010 ARIADNA OJEDA MD 789.01 Abdominal Pain Right Upper Quadrant 06/26/2010 ARIADNA OJEDA MD V72.31 Hired Worker Exam, Routine 06/26/2010 EZEKIEL LERMA MD 789.01 Abdominal Pain Right Upper Quadrant 06/26/2010 EZEKIEL LERMA MD V72.31 Hired Worker Exam, Routine 06/26/2010 EZEKIEL LERMA MD N 789.01 Abdominal Pain Right Upper Quadrant 06/26/2010 EZEKIEL LERMA MD V72.31 Hired Worker Exam, Routine 06/26/2010 PARKS DO JULY K 789.01 Abdominal Pain Right Upper Quadrant 06/26/2010 KASEY DOMEGA K V72.31 Hired Worker Exam, Routine 06/26/2010 GAB BATISTA APRN R 789.01 Abdominal Pain Right Upper Quadrant 06/26/2010 MARILYN BATISTA APRNINA R V72.31 Hired Worker Exam, Routine 06/26/2010 MARILYN BATISTA APRNINA R 789.01 Abdominal Pain Right Upper Quadrant 06/26/2010 LYNNE VELASQUEZ, GAB R V72.31 Hired Worker Exam, Routine 06/26/2010 EZEKIEL LERMA MD N 789.01 Abdominal Pain Right Upper Quadrant 06/26/2010 EZEKIEL LERMA MD V72.31 Hired Worker Exam, Routine 06/26/2010 PARKS DO JULY K 789.01 Abdominal Pain Right Upper Quadrant 06/26/2010 PARKS DO JULY K V72.31 Hired Worker Exam, Routine 06/26/2010 EZEKIEL LERMA MD N 789.01 Abdominal Pain Right Upper Quadrant 06/26/2010 EZEKIEL LERMA MD V72.31 Hired Worker Exam, Routine 06/26/2010 NOLAN ALMENDAREZ APRN 789.01 Abdominal Pain Right Upper Quadrant 06/26/2010 NOLAN ALMENDAREZ APRN V72.31 Hired Worker Exam, Routine 06/26/2010 789.01 Abdominal Pain Right Upper Quadrant 06/26/2010 V72.31 Hired Worker Exam, Routine 06/26/[address]ZE[address]Z RO APRN 789.01 Abdominal Pain Right Upper Quadrant 06/26/2010 GRZEGORZ RO APRN V72.31 Hired Worker Exam, Routine 06/26/2010 LYNNE VELASQUEZ GAB R 789.01 Abdominal Pain Right Upper Quadrant 06/26/2010 LYNNE VELASQUEZ GAB R V72.31 Hired Worker Exam, Routine 06/26/2010 EZEKIEL LERMA MD 789.01 Abdominal Pain Right Upper Quadrant 06/26/2010 EZEKIEL LERMA MD V72.31 Hired Worker Exam, Routine 06/26/2010 NOLAN ALMENDAREZ APRN 789.01 Abdominal Pain Right Upper Quadrant 06/26/2010 NOLAN ALMENDAREZ APRN V72.31 Hired Worker Exam, Routine 07/01/2010 Ot 246.9 07/01/2010 Ot 491.9 07/01/2010 Ot 808.2 07/01/2010 Ot 916.0 07/01/2010 Ot E849.0 07/01/2010 Ot E880.9 07/01/2010 Ot V12.09 07/01/2010 Ot V12.59 07/01/2010 Ot V57.1 07/01/2010 Ot V57.21 08/19/2010 719.45 Pain In Joint Involving Pelvic Region And Thigh 08/19/2010 719.45 Pain In Joint Involving Pelvic Region And Thigh 08/19/2010 [address]Z RO APRN 719.45 Pain In Joint Involving Pelvic Region And Thigh 08/19/2010 JULY PARKS DO 719.45 Pain In Joint Involving Pelvic Region And Thigh 08/19/2010 JULY PARKS DO 719.45 Pain In Joint Involving Pelvic Region And Thigh 08/19/[address] APRN 719.45 Pain In Joint Involving Pelvic Region And Thigh 08/19/2010 719.45 Pain In Joint Involving Pelvic Region And Thigh 08/19/2010 JULY PARKS DO 719.45 Pain In Joint Involving Pelvic Region And Thigh 08/19/2010 719.45 Pain In Joint Involving Pelvic Region And Thigh 08/19/2010 JULY PARKS DO 719.45 Pain In Joint Involving Pelvic Region And Thigh 08/19/2010 ALESIA PAEZ APRN 719.45 Pain In Joint Involving Pelvic Region And Thigh 08/19/2010 719.45 Pain In Joint Involving Pelvic Region And Thigh 08/19/2010 719.45 Pain In Joint Involving Pelvic Region And Thigh 08/19/2010 719.45 Pain In Joint Involving Pelvic Region And Thigh 08/19/2010 719.45 Pain In Joint Involving Pelvic Region And Thigh 08/19/2010 719.45 Pain In Joint Involving Pelvic Region And Thigh 08/19/2010 JULY PARKS DO 719.45 Pain In Joint Involving Pelvic Region And Thigh 08/19/2010 EZEKIEL LERMA MD 719.45 Pain In Joint Involving Pelvic Region And Thigh 08/19/2010 GAB BATISTA APRN R 719.45 Pain In Joint Involving Pelvic Region And Thigh 08/19/2010 EZEKIEL LERMA MD 719.45 Pain In Joint Involving Pelvic Region And Thigh 08/19/2010 EZEKIEL LERMA MD 719.45 Pain In Joint Involving Pelvic Region And Thigh 08/19/2010 ARIADNA OJEDA MD 719.45 Pain In Joint Involving Pelvic Region And Thigh 08/19/2010 EZEKIEL LERMA MD 719.45 Pain In Joint Involving Pelvic Region And Thigh 08/19/2010 EZEKIEL LERMA MD 719.45 Pain In Joint Involving Pelvic Region And Thigh 08/19/2010 JULY PARKS DO 719.45 Pain In Joint Involving Pelvic Region And Thigh 08/19/2010 GAB BATISTA APRN R 719.45 Pain In Joint Involving Pelvic Region And Thigh 08/19/2010 GAB BATISTA APRN R 719.45 Pain In Joint Involving Pelvic Region And Thigh 08/19/2010 EZEKIEL LERMA MD 719.45 Pain In Joint Involving Pelvic Region And Thigh 08/19/2010 KASEY MADRID JULY K 719.45 Pain In Joint Involving Pelvic Region And Thigh 08/19/2010 EZEKIEL LERMA MD 719.45 Pain In Joint Involving Pelvic Region And Thigh 08/19/2010 NOLAN ALMENDAREZ APRN 719.45 Pain In Joint Involving Pelvic Region And Thigh 08/19/2010 719.45 Pain In Joint Involving Pelvic Region And Thigh 08/19/[address] APRN 719.45 Pain In Joint Involving Pelvic Region And Thigh 08/19/2010 GAB BATISTA APRN 719.45 Pain In Joint Involving Pelvic Region And Thigh 08/19/2010 EZEKIEL LERMA MD 719.45 Pain In Joint Involving Pelvic Region And Thigh 08/19/2010 NOLAN ALMENDAREZ APRN 719.45 Pain In Joint Involving Pelvic Region And Thigh 11/27/2010 Ot 305.1 11/27/2010 Ot 466.0 11/27/2010 Ot 786.2 12/31/2010 Ot 492.8 12/31/2010 Ot 493.92 12/31/2010 Ot 786.05 03/02/2011 733.00 OSTEOPOROSIS UNSPECIFIED 03/02/2011 733.00 OSTEOPOROSIS UNSPECIFIED 03/02/2011 [address] APRN S 733.00 OSTEOPOROSIS UNSPECIFIED 03/02/2011 PARKS DO JULY K 733.00 OSTEOPOROSIS UNSPECIFIED 03/02/2011 PARKS , JULY K 733.00 OSTEOPOROSIS UNSPECIFIED 03/02/2011 [address] APRN S 733.00 OSTEOPOROSIS UNSPECIFIED 03/02/2011 733.00 OSTEOPOROSIS UNSPECIFIED 03/02/2011 PARKS DO, JULY K 733.00 OSTEOPOROSIS UNSPECIFIED 03/02/2011 733.00 OSTEOPOROSIS UNSPECIFIED 03/02/2011 PARKS DO, JULY K 733.00 OSTEOPOROSIS UNSPECIFIED 03/02/2011 ALESIA PAEZ APRN 733.00 OSTEOPOROSIS UNSPECIFIED 03/02/2011 733.00 OSTEOPOROSIS UNSPECIFIED 03/02/2011 733.00 OSTEOPOROSIS UNSPECIFIED 03/02/2011 733.00 OSTEOPOROSIS UNSPECIFIED 03/02/2011 733.00 OSTEOPOROSIS UNSPECIFIED 03/02/2011 733.00 OSTEOPOROSIS UNSPECIFIED 03/02/2011 PARKS DO JULY K 733.00 OSTEOPOROSIS UNSPECIFIED 03/02/2011 FLORENTIN MARIO, EZEKIEL N 733.00 OSTEOPOROSIS UNSPECIFIED 03/02/2011 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MARILYN OchoaINA R 733.00 OSTEOPOROSIS UNSPECIFIED 03/02/2011 FLORENTIN MARIO, EZEKIEL N 733.00 OSTEOPOROSIS UNSPECIFIED 03/02/2011 EZEKIEL LERMA MD N 733.00 OSTEOPOROSIS UNSPECIFIED 03/02/2011 ARIADNA OJEDA MD 733.00 OSTEOPOROSIS UNSPECIFIED 03/02/2011 EZEKIEL LERMA MD N 733.00 OSTEOPOROSIS UNSPECIFIED 03/02/2011 EZEKIEL LERMA MD N 733.00 OSTEOPOROSIS UNSPECIFIED 03/02/2011 MEG PARKS DOA K 733.00 OSTEOPOROSIS UNSPECIFIED 03/02/2011 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, GAB R 733.00 OSTEOPOROSIS UNSPECIFIED 03/02/2011 MARILYN BATISTA APRNINA R 733.00 OSTEOPOROSIS UNSPECIFIED 03/02/2011 EZEKIEL LERMA MD N 733.00 OSTEOPOROSIS UNSPECIFIED 03/02/2011 JULY PARKS DO K 733.00 OSTEOPOROSIS UNSPECIFIED 03/02/2011 DANICA LERMA MDY N 733.00 OSTEOPOROSIS UNSPECIFIED 03/02/2011 NOLAN ALMENDAREZ APRN 733.00 OSTEOPOROSIS UNSPECIFIED 03/02/2011 733.00 OSTEOPOROSIS UNSPECIFIED 03/02/2011 [address]ZEG[address]Z RO APRN 733.00 OSTEOPOROSIS UNSPECIFIED 03/02/2011 MARILYN BATISTA APRNINA R 733.00 OSTEOPOROSIS UNSPECIFIED 03/02/2011 EZEKIEL LERMA MD N 733.00 OSTEOPOROSIS UNSPECIFIED 03/02/2011 NOLAN ALMENDAREZ APRN 733.00 OSTEOPOROSIS UNSPECIFIED 04/16/2011 719.55 Stiffness Of Joint Not Elsewhere Classified Involving Pelvic Region And Thigh 04/16/2011 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 04/16/2011 719.55 Stiffness Of Joint Not Elsewhere Classified Involving Pelvic Region And Thigh 04/16/2011 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55 Stiffness Of Joint Not Elsewhere Classified Involving Pelvic Region And Thigh 04/16/2011 GRZEGORZ RO APRN S 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 04/16/2011 719.55 Stiffness Of Joint Not Elsewhere Classified Involving Pelvic Region And Thigh 04/16/2011 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 04/16/2011 JULY PARKS DO 719.55 Stiffness Of Joint Not Elsewhere Classified Involving Pelvic Region And Thigh 04/16/2011 JULY PARKS DO 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 04/16/2011 719.55 Stiffness Of Joint Not Elsewhere Classified Involving Pelvic Region And Thigh 04/16/2011 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 04/16/2011 JULY PARKS DO 719.55 Stiffness Of Joint Not Elsewhere Classified Involving Pelvic Region And Thigh 04/16/2011 JULY PARKS DO 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 04/16/2011 ALESIA PAEZ APRN 719.55 Stiffness Of Joint Not Elsewhere Classified Involving Pelvic Region And Thigh 04/16/2011 ALESIA PAEZ APRN 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 04/16/2011 719.55 Stiffness Of Joint Not Elsewhere Classified Involving Pelvic Region And Thigh 04/16/2011 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 04/16/2011 719.55 Stiffness Of Joint Not Elsewhere Classified Involving Pelvic Region And Thigh 04/16/2011 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 04/16/2011 719.55 Stiffness Of Joint Not Elsewhere Classified Involving Pelvic Region And Thigh 04/16/2011 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 04/16/2011 719.55 Stiffness Of Joint Not Elsewhere Classified Involving Pelvic Region And Thigh 04/16/2011 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 04/16/2011 719.55 Stiffness Of Joint Not Elsewhere Classified Involving Pelvic Region And Thigh 04/16/2011 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 04/16/2011 JULY PARKS DO 719.55 Stiffness Of Joint Not Elsewhere Classified Involving Pelvic Region And Thigh 04/16/2011 JULY PARKS DO 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 04/16/2011 EZEKIEL LERMA MD N 719.55 Stiffness Of Joint Not Elsewhere Classified Involving Pelvic Region And Thigh 04/16/2011 EZEKIEL LERMA MD 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 04/16/2011 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, GAB R 719.55 Stiffness Of Joint Not Elsewhere Classified Involving Pelvic Region And Thigh 04/16/2011 LYNNE VELASQUEZ, GAB R 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 04/16/2011 EZEKIEL LERMA MD N 719.55 Stiffness Of Joint Not Elsewhere Classified Involving Pelvic Region And Thigh 04/16/2011 EZEKIEL LERMA MD N 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 04/16/2011 EZEKIEL LERMA MD N 719.55 Stiffness Of Joint Not Elsewhere Classified Involving Pelvic Region And Thigh 04/16/2011 EZEKIEL LERMA MD N 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 04/16/2011 ARIADNA OJEDA MD 719.55 Stiffness Of Joint Not Elsewhere Classified Involving Pelvic Region And Thigh 04/16/2011 ARIADNA OJEDA MD 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 04/16/2011 EZEKIEL LERMA MD 719.55 Stiffness Of Joint Not Elsewhere Classified Involving Pelvic Region And Thigh 04/16/2011 EZEKIEL LERMA MD N 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 04/16/2011 EZEKIEL LERMA MD 719.55 Stiffness Of Joint Not Elsewhere Classified Involving Pelvic Region And Thigh 04/16/2011 EZEKIEL LERMA MD N 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 04/16/2011 JULY PARKS DO 719.55 Stiffness Of Joint Not Elsewhere Classified Involving Pelvic Region And Thigh 04/16/2011 JULY PARKS DO 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 04/16/2011 LYNNE RODRÍGUEZN, GAB R 719.55 Stiffness Of Joint Not Elsewhere Classified Involving Pelvic Region And Thigh 04/16/2011 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, GAB R 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 04/16/2011 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, GAB R 719.55 Stiffness Of Joint Not Elsewhere Classified Involving Pelvic Region And Thigh 04/16/2011 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, GAB R 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 04/16/2011 EZEKIEL LERMA MD N 719.55 Stiffness Of Joint Not Elsewhere Classified Involving Pelvic Region And Thigh 04/16/2011 EZEKIEL LERMA MD N 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 04/16/2011 JULY PARKS DO 719.55 Stiffness Of Joint Not Elsewhere Classified Involving Pelvic Region And Thigh 04/16/2011 JULY PARKS DO 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 04/16/2011 EZEKIEL LERMA MD N 719.55 Stiffness Of Joint Not Elsewhere Classified Involving Pelvic Region And Thigh 04/16/2011 EZEKIEL LERMA MD N 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 04/16/2011 NOLAN ALMENDAREZ APRN 719.55 Stiffness Of Joint Not Elsewhere Classified Involving Pelvic Region And Thigh 04/16/2011 NOLAN ALMENDAREZ APRN 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 04/16/2011 719.55 Stiffness Of Joint Not Elsewhere Classified Involving Pelvic Region And Thigh 04/16/2011 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 04/16/2011 [address]ZEGORZ RO APRN S 719.55 Stiffness Of Joint Not Elsewhere Classified Involving Pelvic Region And Thigh 04/16/2011 LUISITO RO APRNA S 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 04/16/2011 LYNNE VELASQUEZ, GAB R 719.55 Stiffness Of Joint Not Elsewhere Classified Involving Pelvic Region And Thigh 04/16/2011 LYNNE VELASQUEZ, GAB R 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 04/16/2011 EZEKIEL LERMA MD N 719.55 Stiffness Of Joint Not Elsewhere Classified Involving Pelvic Region And Thigh 04/16/2011 EZEKIEL LERMA MD 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 04/16/2011 NOLAN ALMENDAREZ APRN 719.55 Stiffness Of Joint Not Elsewhere Classified Involving Pelvic Region And Thigh 04/16/2011 NOLAN ALMENDAREZ APRN 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 05/21/2011 843.8 Sprain Of Other Specified Sites Of Hip And Thigh 05/21/2011 843.8 Sprain Of Other Specified Sites Of Hip And Thigh 05/21/2011 GRZEGORZ RO APRN 843.8 Sprain Of Other Specified Sites Of Hip And Thigh 05/21/2011 JULY PARKS DO 843.8 Sprain Of Other Specified Sites Of Hip And Thigh 05/21/2011 JULY PARKS DO K 843.8 Sprain Of Other Specified Sites Of Hip And Thigh 05/21/2011 GRZEGORZ RO APRN S 843.8 Sprain Of Other Specified Sites Of Hip And Thigh 05/21/2011 843.8 Sprain Of Other Specified Sites Of Hip And Thigh 05/21/2011 JULY PARKS DO 843.8 Sprain Of Other Specified Sites Of Hip And Thigh 05/21/2011 843.8 Sprain Of Other Specified Sites Of Hip And Thigh 05/21/2011 JULY PARKS DO K 843.8 Sprain Of Other Specified Sites Of Hip And Thigh 05/21/2011 ALESIA PAEZ APRN 843.8 Sprain Of Other Specified Sites Of Hip And Thigh 05/21/2011 843.8 Sprain Of Other Specified Sites Of Hip And Thigh 05/21/2011 843.8 Sprain Of Other Specified Sites Of Hip And Thigh 05/21/2011 843.8 Sprain Of Other Specified Sites Of Hip And Thigh 05/21/2011 843.8 Sprain Of Other Specified Sites Of Hip And Thigh 05/21/2011 843.8 Sprain Of Other Specified Sites Of Hip And Thigh 05/21/2011 JULY PARKS DO 843.8 Sprain Of Other Specified Sites Of Hip And Thigh 05/21/2011 EZEKIEL LERMA MD 843.8 Sprain Of Other Specified Sites Of Hip And Thigh 05/21/2011 GAB BATISTA APRN 843.8 Sprain Of Other Specified Sites Of Hip And Thigh 05/21/2011 EZEKIEL LERMA MD 843.8 Sprain Of Other Specified Sites Of Hip And Thigh 05/21/2011 EZEKIEL LERMA MD 843.8 Sprain Of Other Specified Sites Of Hip And Thigh 05/21/2011 ARIADNA OJEDA MD 843.8 Sprain Of Other Specified Sites Of Hip And Thigh 05/21/2011 EZEKIEL LERMA MD 843.8 Sprain Of Other Specified Sites Of Hip And Thigh 05/21/2011 EZEKIEL LERMA MD 843.8 Sprain Of Other Specified Sites Of Hip And Thigh 05/21/2011 JULY PARKS DO 843.8 Sprain Of Other Specified Sites Of Hip And Thigh 05/21/2011 GAB BATISTA APRN R 843.8 Sprain Of Other Specified Sites Of Hip And Thigh 05/21/2011 GAB BATISTA APRN R 843.8 Sprain Of Other Specified Sites Of Hip And Thigh 05/21/2011 EZEKIEL LERMA MD 843.8 Sprain Of Other Specified Sites Of Hip And Thigh 05/21/2011 JULY PARKS DO 843.8 Sprain Of Other Specified Sites Of Hip And Thigh 05/21/2011 EZEKIEL LERMA MD N 843.8 Sprain Of Other Specified Sites Of Hip And Thigh 05/21/2011 NOLAN ALMENDAREZ APRN 843.8 Sprain Of Other Specified Sites Of Hip And Thigh 05/21/2011 843.8 Sprain Of Other Specified Sites Of Hip And Thigh 05/21/2011 GRZEGORZ RO APRN 843.8 Sprain Of Other Specified Sites Of Hip And Thigh 05/21/2011 GAB BATISTA APRN R 843.8 Sprain Of Other Specified Sites Of Hip And Thigh 05/21/2011 EZEKIEL LERMA MD N 843.8 Sprain Of Other Specified Sites Of Hip And Thigh 05/21/2011 NOLAN ALMENDAREZ APRN 843.8 Sprain Of Other Specified Sites Of Hip And Thigh 07/02/2011 719.40 Arthraigia Unspec 07/02/2011 719.40 Arthraigia Unspec 07/02/2011 GRZEGORZ RO APRN 719.40 Arthraigia Unspec 07/02/2011 JULY PARKS DO 719.40 Arthraigia Unspec 07/02/2011 JULY PARKS DO 719.40 Arthraigia Unspec 07/02/2011 GRZEGORZ RO APRN 719.40 Arthraigia Unspec 07/02/2011 719.40 Arthraigia Unspec 07/02/2011 KASEY MADRID JULY K 719.40 Arthraigia Unspec 07/02/2011 719.40 Arthraigia Unspec 07/02/2011 PARKS JULY 719.40 Arthraigia Unspec 07/02/2011 ALESIA PAEZ APRN 719.40 Arthraigia Unspec 07/02/2011 719.40 Arthraigia Unspec 07/02/2011 719.40 Arthraigia Unspec 07/02/2011 719.40 Arthraigia Unspec 07/02/2011 719.40 Arthraigia Unspec 07/02/2011 719.40 Arthraigia Unspec 07/02/2011 JULY PARKS DO 719.40 Arthraigia Unspec 07/02/2011 EZEKIEL LERMA MD 719.40 Arthraigia Unspec 07/02/2011 GAB BATISTA APRN 719.40 Arthraigia Unspec 07/02/2011 EZEKIEL LERMA MD 719.40 Arthraigia Unspec 07/02/2011 EZEKIEL LERMA MD 719.40 Arthraigia Unspec 07/02/2011 ARIADNA OJEDA MD 719.40 Arthraigia Unspec 07/02/2011 EZEKIEL LERMA MD 719.40 Arthraigia Unspec 07/02/2011 EZEKIEL LERMA MD 719.40 Arthraigia Unspec 07/02/2011 JULY PARKS DO 719.40 Arthraigia Unspec 07/02/2011 GAB BATISTA APRN 719.40 Arthraigia Unspec 07/02/2011 GAB BATISTA APRN 719.40 Arthraigia Unspec 07/02/2011 EZEKIEL LERMA MD 719.40 Arthraigia Unspec 07/02/2011 JULY PARKS DO 719.40 Arthraigia Unspec 07/02/2011 EZEKIEL LERMA MD 719.40 Arthraigia Unspec 07/02/2011 NOLAN ALMENDAREZ APRN 719.40 Arthraigia Unspec 07/02/2011 719.40 Arthraigia Unspec 07/02/2011 [address]ZEGORZ RO APRN 719.40 Arthraigia Unspec 07/02/2011 GAB BATISTA APRN 719.40 Arthraigia Unspec 07/02/2011 EZEKIEL LERMA MD 719.40 Arthraigia Unspec 07/02/2011 NOLAN ALMENDAREZ APRN 719.40 Arthraigia Unspec 07/08/2011 Ot 726.5 07/08/2011 Ot V54.19 07/08/2011 Ot V57.1 09/28/2011 496 CHRONIC AIRWAY OBSTRUCTION NOT ELSEWHERE CLASSIFIED 09/28/2011 729.5 PAIN IN LIMB 09/28/2011 496 CHRONIC AIRWAY OBSTRUCTION NOT ELSEWHERE CLASSIFIED 09/28/2011 729.5 PAIN IN LIMB 09/28/[address] APRN S 496 CHRONIC AIRWAY OBSTRUCTION NOT ELSEWHERE CLASSIFIED 09/28/2011 GRZEGORZ RO APRN S 729.5 PAIN IN LIMB 09/28/2011 PARKS DO JULY K 496 CHRONIC AIRWAY OBSTRUCTION NOT ELSEWHERE CLASSIFIED 09/28/2011 PARKS DO JULY K 729.5 PAIN IN LIMB 09/28/2011 PARKS DO JULY K 496 CHRONIC AIRWAY OBSTRUCTION NOT ELSEWHERE CLASSIFIED 09/28/2011 PARKS DO JULY K 729.5 PAIN IN LIMB 09/28/2011 GRZEGORZ OR APRN S 496 CHRONIC AIRWAY OBSTRUCTION NOT ELSEWHERE CLASSIFIED 09/28/[address] APRN S 729.5 PAIN IN LIMB 09/28/2011 496 CHRONIC AIRWAY OBSTRUCTION NOT ELSEWHERE CLASSIFIED 09/28/2011 729.5 PAIN IN LIMB 09/28/2011 PARKS DO, JULY K 496 CHRONIC AIRWAY OBSTRUCTION NOT ELSEWHERE CLASSIFIED 09/28/2011 PARKS DO JULY K 729.5 PAIN IN LIMB 09/28/2011 496 CHRONIC AIRWAY OBSTRUCTION NOT ELSEWHERE CLASSIFIED 09/28/2011 729.5 PAIN IN LIMB 09/28/2011 PARKS DO, JULY K 496 CHRONIC AIRWAY OBSTRUCTION NOT ELSEWHERE CLASSIFIED 09/28/2011 PARKS DO JULY K 729.5 PAIN IN LIMB 09/28/2011 ALESIA PAEZ APRN 496 CHRONIC AIRWAY OBSTRUCTION NOT ELSEWHERE CLASSIFIED 09/28/2011 ALESIA PAEZ APRN 729.5 PAIN IN LIMB 09/28/2011 496 CHRONIC AIRWAY OBSTRUCTION NOT ELSEWHERE CLASSIFIED 09/28/2011 729.5 PAIN IN LIMB 09/28/2011 496 CHRONIC AIRWAY OBSTRUCTION NOT ELSEWHERE CLASSIFIED 09/28/2011 729.5 PAIN IN LIMB 09/28/2011 496 CHRONIC AIRWAY OBSTRUCTION NOT ELSEWHERE CLASSIFIED 09/28/2011 729.5 PAIN IN LIMB 09/28/2011 496 CHRONIC AIRWAY OBSTRUCTION NOT ELSEWHERE CLASSIFIED 09/28/2011 729.5 PAIN IN LIMB 09/28/2011 496 CHRONIC AIRWAY OBSTRUCTION NOT ELSEWHERE CLASSIFIED 09/28/2011 729.5 PAIN IN LIMB 09/28/2011 JULY PARKS DO 496 CHRONIC AIRWAY OBSTRUCTION NOT ELSEWHERE CLASSIFIED 09/28/2011 JULY PARKS DO 729.5 PAIN IN LIMB 09/28/2011 EZEKIEL LERMA MD 496 CHRONIC AIRWAY OBSTRUCTION NOT ELSEWHERE CLASSIFIED 09/28/2011 EZEKIEL LERMA MD 729.5 PAIN IN LIMB 09/28/2011 GAB BATISTA APRN R 496 CHRONIC AIRWAY OBSTRUCTION NOT ELSEWHERE CLASSIFIED 09/28/2011 GAB BATISTA APRN R 729.5 PAIN IN LIMB 09/28/2011 EZEKIEL LERMA MD 49Tiffany CHRONIC AIRWAY OBSTRUCTION NOT ELSEWHERE CLASSIFIED 09/28/2011 EZEKIEL LERMA MD N 729.5 PAIN IN LIMB 09/28/2011 EZEKIEL LERMA MD 49Tiffany CHRONIC AIRWAY OBSTRUCTION NOT ELSEWHERE CLASSIFIED 09/28/2011 EZEKIEL LERMA MD 729.5 PAIN IN LIMB 09/28/2011 ARIADNA OJEDA MD 49Tiffany CHRONIC AIRWAY OBSTRUCTION NOT ELSEWHERE CLASSIFIED 09/28/2011 ARIADNA OJEDA MD 729.5 PAIN IN LIMB 09/28/2011 EZEKIEL LERMA MD 49Tiffany CHRONIC AIRWAY OBSTRUCTION NOT ELSEWHERE CLASSIFIED 09/28/2011 EZEKIEL LERMA MD 729.5 PAIN IN LIMB 09/28/2011 EZEKIEL LERMA MD 49Tiffany CHRONIC AIRWAY OBSTRUCTION NOT ELSEWHERE CLASSIFIED 09/28/2011 EZEKIEL LERMA MD N 729.5 PAIN IN LIMB 09/28/2011 JULY PARKS DO 49Tiffany CHRONIC AIRWAY OBSTRUCTION NOT ELSEWHERE CLASSIFIED 09/28/2011 PARKS DO, JULY K 729.5 PAIN IN LIMB 09/28/2011 LYNNE VELASQUEZ GAB R 496 CHRONIC AIRWAY OBSTRUCTION NOT ELSEWHERE CLASSIFIED 09/28/2011 MARILYN BATISTA APRNINA R 729.5 PAIN IN LIMB 09/28/2011 MARILYN BATISTA APRNINA R 496 CHRONIC AIRWAY OBSTRUCTION NOT ELSEWHERE CLASSIFIED 09/28/2011 MARILYN BATISTA APRNINA R 729.5 PAIN IN LIMB 09/28/2011 EZEKIEL LERMA MD 496 CHRONIC AIRWAY OBSTRUCTION NOT ELSEWHERE CLASSIFIED 09/28/2011 EZEKIEL LERMA MD 729.5 PAIN IN LIMB 09/28/2011 PARKS DO, JULY K 496 CHRONIC AIRWAY OBSTRUCTION NOT ELSEWHERE CLASSIFIED 09/28/2011 PARKS DO, JULY K 729.5 PAIN IN LIMB 09/28/2011 EZEKIEL LERMA MD 496 CHRONIC AIRWAY OBSTRUCTION NOT ELSEWHERE CLASSIFIED 09/28/2011 EZEKIEL LERMA MD 729.5 PAIN IN LIMB 09/28/2011 NOLAN ALMENDAREZ APRN 496 CHRONIC AIRWAY OBSTRUCTION NOT ELSEWHERE CLASSIFIED 09/28/2011 NOLAN ALMENDAREZ APRN 729.5 PAIN IN LIMB 09/28/2011 496 CHRONIC AIRWAY OBSTRUCTION NOT ELSEWHERE CLASSIFIED 09/28/2011 729.5 PAIN IN LIMB 09/28/[address]ZE[address]Z RO APRN S 496 CHRONIC AIRWAY OBSTRUCTION NOT ELSEWHERE CLASSIFIED 09/28/2011 GRZEGORZ RO APRN S 729.5 PAIN IN LIMB 09/28/2011 GAB BATISTA APRN R 496 CHRONIC AIRWAY OBSTRUCTION NOT ELSEWHERE CLASSIFIED 09/28/2011 GAB BATISTA APRN R 729.5 PAIN IN LIMB 09/28/2011 EZEKIEL LERMA MD 496 CHRONIC AIRWAY OBSTRUCTION NOT ELSEWHERE CLASSIFIED 09/28/2011 EZEKIEL LERMA MD 729.5 PAIN IN LIMB 09/28/2011 NOLAN ALMENDAREZ APRN 496 CHRONIC AIRWAY OBSTRUCTION NOT ELSEWHERE CLASSIFIED 09/28/2011 NOLAN ALMENDAREZ APRN 729.5 PAIN IN LIMB 09/29/2011 Ot 244.1 09/29/2011 Ot 305.1 09/29/2011 Ot 311 09/29/2011 Ot 491.9 09/29/2011 Ot 729.1 09/29/2011 Ot 786.50 09/29/2011 Ot V15.29 09/29/2011 Ot V58.69 09/29/2011 Ot V85.31 11/03/2011 305.1 NONDEPENDENT TOBACCO USE DISORDER 11/03/2011 627.9 UNSPECIFIED MENOPAUSAL AND POSTMENOPAUSAL DISORDER 11/03/2011 305.1 NONDEPENDENT TOBACCO USE DISORDER 11/03/2011 627.9 UNSPECIFIED MENOPAUSAL AND POSTMENOPAUSAL DISORDER 11/03/2011 GRZEGORZ RO APRN S 305.1 NONDEPENDENT TOBACCO USE DISORDER 11/03/2011 GRZEGORZ RO APRN S 627.9 UNSPECIFIED MENOPAUSAL AND POSTMENOPAUSAL DISORDER 11/03/2011 JULY PARKS DO K 305.1 NONDEPENDENT TOBACCO USE DISORDER 11/03/2011 MEG PARKS DOA K 627.9 UNSPECIFIED MENOPAUSAL AND POSTMENOPAUSAL DISORDER 11/03/2011 MEG PARKS DOA K 305.1 NONDEPENDENT TOBACCO USE DISORDER 11/03/2011 MEG PARKS DOA K 627.9 UNSPECIFIED MENOPAUSAL AND POSTMENOPAUSAL DISORDER 11/03/2011 GRZEGORZ RO APRN S 305.1 NONDEPENDENT TOBACCO USE DISORDER 11/03/2011 GRZEGORZ RO APRN S 627.9 UNSPECIFIED MENOPAUSAL AND POSTMENOPAUSAL DISORDER 11/03/2011 305.1 NONDEPENDENT TOBACCO USE DISORDER 11/03/2011 627.9 UNSPECIFIED MENOPAUSAL AND POSTMENOPAUSAL DISORDER 11/03/2011 MEG PARKS DOA K 305.1 NONDEPENDENT TOBACCO USE DISORDER 11/03/2011 MEG PARKS DOA K 627.9 UNSPECIFIED MENOPAUSAL AND POSTMENOPAUSAL DISORDER 11/03/2011 305.1 NONDEPENDENT TOBACCO USE DISORDER 11/03/2011 627.9 UNSPECIFIED MENOPAUSAL AND POSTMENOPAUSAL DISORDER 11/03/2011 MEG PARKS DOA K 305.1 NONDEPENDENT TOBACCO USE DISORDER 11/03/2011 MEG PARKS DOA K 627.9 UNSPECIFIED MENOPAUSAL AND POSTMENOPAUSAL DISORDER 11/03/2011 ALESIA PAEZ APRN 305.1 NONDEPENDENT TOBACCO USE DISORDER 11/03/2011 ALESIA PAEZ APRN 627.9 UNSPECIFIED MENOPAUSAL AND POSTMENOPAUSAL DISORDER 11/03/2011 305.1 NONDEPENDENT TOBACCO USE DISORDER 11/03/2011 627.9 UNSPECIFIED MENOPAUSAL AND POSTMENOPAUSAL DISORDER 11/03/2011 305.1 NONDEPENDENT TOBACCO USE DISORDER 11/03/2011 627.9 UNSPECIFIED MENOPAUSAL AND POSTMENOPAUSAL DISORDER 11/03/2011 305.1 NONDEPENDENT TOBACCO USE DISORDER 11/03/2011 627.9 UNSPECIFIED MENOPAUSAL AND POSTMENOPAUSAL DISORDER 11/03/2011 305.1 NONDEPENDENT TOBACCO USE DISORDER 11/03/2011 627.9 UNSPECIFIED MENOPAUSAL AND POSTMENOPAUSAL DISORDER 11/03/2011 305.1 NONDEPENDENT TOBACCO USE DISORDER 11/03/2011 627.9 UNSPECIFIED MENOPAUSAL AND POSTMENOPAUSAL DISORDER 11/03/2011 JULY PARKS DO K 305.1 NONDEPENDENT TOBACCO USE DISORDER 11/03/2011 JULY PARKS DO 627.9 UNSPECIFIED MENOPAUSAL AND POSTMENOPAUSAL DISORDER 11/03/2011 EZEKIEL LERMA MD N 305.1 NONDEPENDENT TOBACCO USE DISORDER 11/03/2011 EZEKIEL LERMA MD 627.9 UNSPECIFIED MENOPAUSAL AND POSTMENOPAUSAL DISORDER 11/03/2011 MARILYN BATISTA APRNINA R 305.1 NONDEPENDENT TOBACCO USE DISORDER 11/03/2011 GAB BATISTA APRN R 627.9 UNSPECIFIED MENOPAUSAL AND POSTMENOPAUSAL DISORDER 11/03/2011 EZEKIEL LERMA MD N 305.1 NONDEPENDENT TOBACCO USE DISORDER 11/03/2011 EZEKIEL LERMA MD 627.9 UNSPECIFIED MENOPAUSAL AND POSTMENOPAUSAL DISORDER 11/03/2011 EZEKIEL LERMA MD N 305.1 NONDEPENDENT TOBACCO USE DISORDER 11/03/2011 EZEKIEL LERMA MD 627.9 UNSPECIFIED MENOPAUSAL AND POSTMENOPAUSAL DISORDER 11/03/2011 ARIADNA OJEDA MD 305.1 NONDEPENDENT TOBACCO USE DISORDER 11/03/2011 ARIADNA OJEDA MD 627.9 UNSPECIFIED MENOPAUSAL AND POSTMENOPAUSAL DISORDER 11/03/2011 EZEKIEL LERMA MD N 305.1 NONDEPENDENT TOBACCO USE DISORDER 11/03/2011 EZEKIEL LERMA MD 627.9 UNSPECIFIED MENOPAUSAL AND POSTMENOPAUSAL DISORDER 11/03/2011 EZEKIEL LERMA MD N 305.1 NONDEPENDENT TOBACCO USE DISORDER 11/03/2011 EZEKIEL LERMA MD 627.9 UNSPECIFIED MENOPAUSAL AND POSTMENOPAUSAL DISORDER 11/03/2011 JULY PARKS DO K 305.1 NONDEPENDENT TOBACCO USE DISORDER 11/03/2011 JULY PARKS DO K 627.9 UNSPECIFIED MENOPAUSAL AND POSTMENOPAUSAL DISORDER 11/03/2011 GAB BATISTA APRN R 305.1 NONDEPENDENT TOBACCO USE DISORDER 11/03/2011 GAB BATISTA APRN R 627.9 UNSPECIFIED MENOPAUSAL AND POSTMENOPAUSAL DISORDER 11/03/2011 GAB BATISTA APRN R 305.1 NONDEPENDENT TOBACCO USE DISORDER 11/03/2011 GAB BATISTA APRN R 627.9 UNSPECIFIED MENOPAUSAL AND POSTMENOPAUSAL DISORDER 11/03/2011 EZEKIEL LERMA MD N 305.1 NONDEPENDENT TOBACCO USE DISORDER 11/03/2011 EZEKIEL LERMA MD 627.9 UNSPECIFIED MENOPAUSAL AND POSTMENOPAUSAL DISORDER 11/03/2011 PARKS DOMEGA K 305.1 NONDEPENDENT TOBACCO USE DISORDER 11/03/2011 PARKS DOJULY K 627.9 UNSPECIFIED MENOPAUSAL AND POSTMENOPAUSAL DISORDER 11/03/2011 EZEKIEL LERMA MD N 305.1 NONDEPENDENT TOBACCO USE DISORDER 11/03/2011 EZEKIEL LERMA MD N 627.9 UNSPECIFIED MENOPAUSAL AND POSTMENOPAUSAL DISORDER 11/03/2011 NOLAN ALMENDAREZ APRN 305.1 NONDEPENDENT TOBACCO USE DISORDER 11/03/2011 NOLAN ALMENDAREZ APRN 627.9 UNSPECIFIED MENOPAUSAL AND POSTMENOPAUSAL DISORDER 11/03/2011 305.1 NONDEPENDENT TOBACCO USE DISORDER 11/03/2011 627.9 UNSPECIFIED MENOPAUSAL AND POSTMENOPAUSAL DISORDER 11/03/2011 GRZEGORZ RO APRN S 305.1 NONDEPENDENT TOBACCO USE DISORDER 11/03/2011 GRZEGORZ RO APRN S 627.9 UNSPECIFIED MENOPAUSAL AND POSTMENOPAUSAL DISORDER 11/03/2011 GAB BATISTA APRN R 305.1 NONDEPENDENT TOBACCO USE DISORDER 11/03/2011 GAB BATISTA APRN R 627.9 UNSPECIFIED MENOPAUSAL AND POSTMENOPAUSAL DISORDER 11/03/2011 EZEKIEL LERMA MD N 305.1 NONDEPENDENT TOBACCO USE DISORDER 11/03/2011 EZEKIEL LERMA MD 627.9 UNSPECIFIED MENOPAUSAL AND POSTMENOPAUSAL DISORDER 11/03/2011 NOLAN ALMENDAREZ APRN 305.1 NONDEPENDENT TOBACCO USE DISORDER 11/03/2011 NOLAN ALMENDAREZ APRN 627.9 UNSPECIFIED MENOPAUSAL AND POSTMENOPAUSAL DISORDER 11/11/2011 Ot 719.47 01/02/2012 Ot 305.1 01/02/2012 Ot 490 01/02/2012 Ot 786.2 01/21/2012 719.55 Stiffness Of Joint Not Elsewhere Classified Involving Pelvic Region And Thigh 01/21/2012 719.55 Stiffness Of Joint Not Elsewhere Classified Involving Pelvic Region And Thigh 01/21/2012 GRZEGORZ RO APRN 719.55 Stiffness Of Joint Not Elsewhere Classified Involving Pelvic Region And Thigh 01/21/2012 JULY PARKS DO 719.55 Stiffness Of Joint Not Elsewhere Classified Involving Pelvic Region And Thigh 01/21/2012 JULY PARKS DO 719.55 Stiffness Of Joint Not Elsewhere Classified Involving Pelvic Region And Thigh 01/21/2012 GRZEGORZ RO APRN S 719.55 Stiffness Of Joint Not Elsewhere Classified Involving Pelvic Region And Thigh 01/21/2012 719.55 Stiffness Of Joint Not Elsewhere Classified Involving Pelvic Region And Thigh 01/21/2012 JULY PARKS DO 719.55 Stiffness Of Joint Not Elsewhere Classified Involving Pelvic Region And Thigh 01/21/2012 719.55 Stiffness Of Joint Not Elsewhere Classified Involving Pelvic Region And Thigh 01/21/2012 JULY PARKS DO 719.55 Stiffness Of Joint Not Elsewhere Classified Involving Pelvic Region And Thigh 01/21/2012 ALESIA PAEZ APRN 719.55 Stiffness Of Joint Not Elsewhere Classified Involving Pelvic Region And Thigh 01/21/2012 719.55 Stiffness Of Joint Not Elsewhere Classified Involving Pelvic Region And Thigh 01/21/2012 719.55 Stiffness Of Joint Not Elsewhere Classified Involving Pelvic Region And Thigh 01/21/2012 719.55 Stiffness Of Joint Not Elsewhere Classified Involving Pelvic Region And Thigh 01/21/2012 719.55 Stiffness Of Joint Not Elsewhere Classified Involving Pelvic Region And Thigh 01/21/2012 719.55 Stiffness Of Joint Not Elsewhere Classified Involving Pelvic Region And Thigh 01/21/2012 JULY PARKS DO 719.55 Stiffness Of Joint Not Elsewhere Classified Involving Pelvic Region And Thigh 01/21/2012 EZEKIEL LERMA MD 719.55 Stiffness Of Joint Not Elsewhere Classified Involving Pelvic Region And Thigh 01/21/2012 GAB BATISTA APRN 719.55 Stiffness Of Joint Not Elsewhere Classified Involving Pelvic Region And Thigh 01/21/2012 EZEKIEL LERMA MD 719.55 Stiffness Of Joint Not Elsewhere Classified Involving Pelvic Region And Thigh 01/21/2012 EZEKIEL LERMA MD 719.55 STIFFNESS OF JOINT NOT ELSEWHERE CLASSIFIED INVOLVING PELVIC REGION AND THIGH 01/21/2012 ARIADNA OJEDA MD 719.55 STIFFNESS OF JOINT NOT ELSEWHERE CLASSIFIED INVOLVING PELVIC REGION AND THIGH 01/21/2012 EZEKIEL LERMA MD 719.55 STIFFNESS OF JOINT NOT ELSEWHERE CLASSIFIED INVOLVING PELVIC REGION AND THIGH 01/21/2012 EZEKIEL LERMA MD 719.55 STIFFNESS OF JOINT NOT ELSEWHERE CLASSIFIED INVOLVING PELVIC REGION AND THIGH 01/21/2012 JULY PARKS DO 719.55 STIFFNESS OF JOINT NOT ELSEWHERE CLASSIFIED INVOLVING PELVIC REGION AND THIGH 01/21/2012 GAB BATISTA APRN R 719.55 STIFFNESS OF JOINT NOT ELSEWHERE CLASSIFIED INVOLVING PELVIC REGION AND THIGH 01/21/2012 GAB BATISTA APRN R 719.55 STIFFNESS OF JOINT NOT ELSEWHERE CLASSIFIED INVOLVING PELVIC REGION AND THIGH 01/21/2012 EZEKIEL LERMA MD 719.55 STIFFNESS OF JOINT NOT ELSEWHERE CLASSIFIED INVOLVING PELVIC REGION AND THIGH 01/21/2012 JULY PARKS DO 719.55 STIFFNESS OF JOINT NOT ELSEWHERE CLASSIFIED INVOLVING PELVIC REGION AND THIGH 01/21/2012 EZEKIEL LERMA MD 719.55 STIFFNESS OF JOINT NOT ELSEWHERE CLASSIFIED INVOLVING PELVIC REGION AND THIGH 01/21/2012 NOLAN ALMENDAREZ APRN 719.55 STIFFNESS OF JOINT NOT ELSEWHERE CLASSIFIED INVOLVING PELVIC REGION AND THIGH 01/21/2012 719.55 STIFFNESS OF JOINT NOT ELSEWHERE CLASSIFIED INVOLVING PELVIC REGION AND THIGH 01/21/2012 GRZEGORZ RO APRN 719.55 STIFFNESS OF JOINT NOT ELSEWHERE CLASSIFIED INVOLVING PELVIC REGION AND THIGH 01/21/2012 GAB BATISTA APRN R 719.55 STIFFNESS OF JOINT NOT ELSEWHERE CLASSIFIED INVOLVING PELVIC REGION AND THIGH 01/21/2012 EZEKIEL LERMA MD 719.55 STIFFNESS OF JOINT NOT ELSEWHERE CLASSIFIED INVOLVING PELVIC REGION AND THIGH 01/21/2012 NOLAN ALMENDAREZ APRN 719.55 STIFFNESS OF JOINT NOT ELSEWHERE CLASSIFIED INVOLVING PELVIC REGION AND THIGH 02/04/2012 564.00 CONSTIPATION 02/04/2012 724.2 BACK PAIN, LOWER 02/04/2012 V03.82 PCV-13 (PREVNAR) DX 02/04/2012 V04.81 FLU DX (3 YRS AND ABOVE, IM) 02/04/2012 564.00 CONSTIPATION 02/04/2012 724.2 BACK PAIN, LOWER 02/04/2012 V03.82 PCV-13 (PREVNAR) DX 02/04/2012 V04.81 FLU DX (3 YRS AND ABOVE, IM) 02/04/2012 JIA 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, GRZEGORZ S 564.00 CONSTIPATION 02/04/2012 JIA 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, GRZEGORZ S 724.2 BACK PAIN, LOWER 02/04/2012 JIA 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, GRZEGORZ S V03.82 PCV-13 (PREVNAR) DX 02/04/2012 JIA 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, GRZEGORZ S V04.81 FLU DX (3 YRS AND ABOVE, IM) 02/04/2012 PARKS DO, JULY K 564.00 CONSTIPATION 02/04/2012 PARKS DO, JULY K 724.2 BACK PAIN, LOWER 02/04/2012 PARKS DO, JULY K V03.82 PCV-13 (PREVNAR) DX 02/04/2012 PARKS DO, JLUY K V04.81 FLU DX (3 YRS AND ABOVE, IM) 02/04/2012 PARKS DO, JULY K 564.00 CONSTIPATION 02/04/2012 PARKS DO, JULY K 724.2 BACK PAIN, LOWER 02/04/2012 PARKS DO, JULY K V03.82 PCV-13 (PREVNAR) DX 02/04/2012 PARKS DO, JULY K V04.81 FLU DX (3 YRS AND ABOVE, IM) 02/04/2012 JIA 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, GRZEGORZ S 564.00 CONSTIPATION 02/04/2012 JIA 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, GRZEGORZ S 724.2 BACK PAIN, LOWER 02/04/2012 JIA 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, GRZEGORZ S V03.82 PCV-13 (PREVNAR) DX 02/04/2012 JIA 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, GRZEOGRZ S V04.81 FLU DX (3 YRS AND ABOVE, IM) 02/04/2012 564.00 CONSTIPATION 02/04/2012 724.2 BACK PAIN, LOWER 02/04/2012 V03.82 PCV-13 (PREVNAR) DX 02/04/2012 V04.81 FLU DX (3 YRS AND ABOVE, IM) 02/04/2012 PARKS DO, JULY K 564.00 CONSTIPATION 02/04/2012 PARKS DO, JULY K 724.2 BACK PAIN, LOWER 02/04/2012 PARKS DO, JULY K V03.82 PCV-13 (PREVNAR) DX 02/04/2012 PARKS DOMEGA K V04.81 FLU DX (3 YRS AND ABOVE, IM) 02/04/2012 564.00 CONSTIPATION 02/04/2012 724.2 BACK PAIN, LOWER 02/04/2012 V03.82 PCV-13 (PREVNAR) DX 02/04/2012 V04.81 FLU DX (3 YRS AND ABOVE, IM) 02/04/2012 PARKS DO, JULY K 564.00 CONSTIPATION 02/04/2012 PARKS DO, JULY K 724.2 BACK PAIN, LOWER 02/04/2012 PARKS DO, JULY K V03.82 PCV-13 (PREVNAR) DX 02/04/2012 PARKS DOMEGA K V04.81 FLU DX (3 YRS AND ABOVE, IM) 02/04/2012 ALESIA PAEZ APRN 564.00 CONSTIPATION 02/04/2012 ALESIA PAEZ APRN 724.2 BACK PAIN, LOWER 02/04/2012 ALESIA PAEZ APRN V03.82 PCV-13 (PREVNAR) DX 02/04/2012 ALESIA PAEZ APRN V04.81 FLU DX (3 YRS AND ABOVE, IM) 02/04/2012 564.00 CONSTIPATION 02/04/2012 724.2 BACK PAIN, LOWER 02/04/2012 V03.82 PCV-13 (PREVNAR) DX 02/04/2012 V04.81 FLU DX (3 YRS AND ABOVE, IM) 02/04/2012 564.00 CONSTIPATION 02/04/2012 724.2 BACK PAIN, LOWER 02/04/2012 V03.82 PCV-13 (PREVNAR) DX 02/04/2012 V04.81 FLU DX (3 YRS AND ABOVE, IM) 02/04/2012 564.00 CONSTIPATION 02/04/2012 724.2 BACK PAIN, LOWER 02/04/2012 V03.82 PCV-13 (PREVNAR) DX 02/04/2012 V04.81 FLU DX (3 YRS AND ABOVE, IM) 02/04/2012 564.00 CONSTIPATION 02/04/2012 724.2 BACK PAIN, LOWER 02/04/2012 V03.82 PCV-13 (PREVNAR) DX 02/04/2012 V04.81 FLU DX (3 YRS AND ABOVE, IM) 02/04/2012 564.00 CONSTIPATION 02/04/2012 724.2 BACK PAIN, LOWER 02/04/2012 V03.82 PCV-13 (PREVNAR) DX 02/04/2012 V04.81 FLU DX (3 YRS AND ABOVE, IM) 02/04/2012 PARKS DO, JULY K 564.00 CONSTIPATION 02/04/2012 PARKS DO, JULY K 724.2 BACK PAIN, LOWER 02/04/2012 PARKS DO, JULY K V03.82 PCV-13 (PREVNAR) DX 02/04/2012 PARKS DO, JULY K V04.81 FLU DX (3 YRS AND ABOVE, IM) 02/04/2012 EZEKIEL LERMA MD N 564.00 CONSTIPATION 02/04/2012 EZEKIEL LERMA MD N 724.2 BACK PAIN, LOWER 02/04/2012 EZEKIEL LERMA MD N V03.82 PCV-13 (PREVNAR) DX 02/04/2012 EZEKIEL LERMA MD N V04.81 FLU DX (3 YRS AND ABOVE, IM) 02/04/2012 LYNNE VELASQUEZ GAB R 564.00 CONSTIPATION 02/04/2012 LYNNE VELASQUEZ GAB R 724.2 BACK PAIN, LOWER 02/04/2012 LYNNE VELASQUEZ GAB R V03.82 PCV-13 (PREVNAR) DX 02/04/2012 LYNNE VELASQUEZ GAB R V04.81 FLU DX (3 YRS AND ABOVE, IM) 02/04/2012 EZEKIEL LERMA MD N 564.00 CONSTIPATION 02/04/2012 EZEKIEL LERMA MD N 724.2 BACK PAIN, LOWER 02/04/2012 EZEKIEL LERMA MD N V03.82 PCV-13 (PREVNAR) DX 02/04/2012 EZEKIEL LERMA MD N V04.81 FLU DX (3 YRS AND ABOVE, IM) 02/04/2012 EZEKIEL LERMA MD N 564.00 CONSTIPATION 02/04/2012 EZEKIEL LERMA MD N 724.2 BACK PAIN, LOWER 02/04/2012 EZEKIEL LERMA MD N V03.82 PCV-13 (PREVNAR) DX 02/04/2012 EZEKIEL LERMA MD N V04.81 FLU DX (3 YRS AND ABOVE, IM) 02/04/2012 ARIADNA OJEDA MD 564.00 CONSTIPATION 02/04/2012 ARIADNA OJEDA MD 724.2 BACK PAIN, LOWER 02/04/2012 ARIADNA OJEDA MD V03.82 PCV-13 (PREVNAR) DX 02/04/2012 ARIADNA OJEDA MD V04.81 FLU DX (3 YRS AND ABOVE, IM) 02/04/2012 EZEKIEL LERMA MD N 564.00 CONSTIPATION 02/04/2012 EZEKIEL LERMA MD 724.2 BACK PAIN, LOWER 02/04/2012 EZEKIEL LERMA MD V03.82 PCV-13 (PREVNAR) DX 02/04/2012 EZEKIEL LERMA MD V04.81 FLU DX (3 YRS AND ABOVE, IM) 02/04/2012 EZEKIEL LERMA MD N 564.00 CONSTIPATION 02/04/2012 EZEKIEL LERMA MD 724.2 BACK PAIN, LOWER 02/04/2012 EZEKIEL LERMA MD V03.82 PCV-13 (PREVNAR) DX 02/04/2012 EZEKIEL LERMA MD V04.81 FLU DX (3 YRS AND ABOVE, IM) 02/04/2012 PARKS DO, JULY K 564.00 CONSTIPATION 02/04/2012 PARKS DO, JULY K 724.2 BACK PAIN, LOWER 02/04/2012 PARKS DO, JULY K V03.82 PCV-13 (PREVNAR) DX 02/04/2012 PARKS DO, JULY K V04.81 FLU DX (3 YRS AND ABOVE, IM) 02/04/2012 LYNNE VELASQUEZ GAB R 564.00 CONSTIPATION 02/04/2012 LYNNE VELASQUEZ GAB R 724.2 BACK PAIN, LOWER 02/04/2012 LYNNE VELASQUEZ GAB R V03.82 PCV-13 (PREVNAR) DX 02/04/2012 LYNNE VELASQUEZ GAB R V04.81 FLU DX (3 YRS AND ABOVE, IM) 02/04/2012 LYNNE VELASQUEZ GAB R 564.00 CONSTIPATION 02/04/2012 LYNNE VELASQUEZ GAB R 724.2 BACK PAIN, LOWER 02/04/2012 LYNNE VELASQUEZ GAB R V03.82 PCV-13 (PREVNAR) DX 02/04/2012 GAB BATISTA APRN V04.81 FLU DX (3 YRS AND ABOVE, IM) 02/04/2012 EZEKIEL LERMA MD N 564.00 CONSTIPATION 02/04/2012 EZEKIEL LERMA MD N 724.2 BACK PAIN, LOWER 02/04/2012 EZEKIEL LERMA MD V03.82 PCV-13 (PREVNAR) DX 02/04/2012 EZEKIEL LERMA MD V04.81 FLU DX (3 YRS AND ABOVE, IM) 02/04/2012 PARKS DO, JULY K 564.00 CONSTIPATION 02/04/2012 PARKS DO, JULY K 724.2 BACK PAIN, LOWER 02/04/2012 PARKS DO, JULY K V03.82 PCV-13 (PREVNAR) DX 02/04/2012 PARKS DO, JULY K V04.81 FLU DX (3 YRS AND ABOVE, IM) 02/04/2012 EZEKIEL LERMA MD N 564.00 CONSTIPATION 02/04/2012 EZEKIEL LERMA MD 724.2 BACK PAIN, LOWER 02/04/2012 EZEKIEL LERMA MD V03.82 PCV-13 (PREVNAR) DX 02/04/2012 EZEKIEL LERMA MD V04.81 FLU DX (3 YRS AND ABOVE, IM) 02/04/2012 NOLAN ALMENDAREZ APRN 564.00 CONSTIPATION 02/04/2012 NOLAN ALMENDAREZ APRN 724.2 BACK PAIN, LOWER 02/04/2012 NOLAN ALMENDAREZ APRN V03.82 PCV-13 (PREVNAR) DX 02/04/2012 NOLAN ALMENDAREZ APRN V04.81 FLU DX (3 YRS AND ABOVE, IM) 02/04/2012 564.00 CONSTIPATION 02/04/2012 724.2 BACK PAIN, LOWER 02/04/2012 V03.82 PCV-13 (PREVNAR) DX 02/04/2012 V04.81 FLU DX (3 YRS AND ABOVE, IM) 02/04/2012 GRZEGORZ RO APRN S 564.00 CONSTIPATION 02/04/2012 GRZEGORZ RO APRN S 724.2 BACK PAIN, LOWER 02/04/2012 GRZEGORZ RO APRN S V03.82 PCV-13 (PREVNAR) DX 02/04/2012 GRZEGORZ RO APRN S V04.81 FLU DX (3 YRS AND ABOVE, IM) 02/04/2012 LYNNE VELASQUEZ GAB R 564.00 CONSTIPATION 02/04/2012 LYNNE VELASQUEZ GAB R 724.2 BACK PAIN, LOWER 02/04/2012 MARILYN BATISTA APRNINA R V03.82 PCV-13 (PREVNAR) DX 02/04/2012 LYNNE VELASQUEZ GAB R V04.81 FLU DX (3 YRS AND ABOVE, IM) 02/04/2012 EZEKIEL LERMA MD N 564.00 CONSTIPATION 02/04/2012 EZEKIEL LERMA MD N 724.2 BACK PAIN, LOWER 02/04/2012 EZEKIEL LERMA MD N V03.82 PCV-13 (PREVNAR) DX 02/04/2012 EZEKIEL LERMA MD N V04.81 FLU DX (3 YRS AND ABOVE, IM) 02/04/2012 NOLAN ALMENDAREZ APRN 564.00 CONSTIPATION 02/04/2012 NOLAN ALMENDAREZ APRN 724.2 BACK PAIN, LOWER 02/04/2012 NOLAN ALMENDAREZ APRN V03.82 PCV-13 (PREVNAR) DX 02/04/2012 NOLAN ALMENDAREZ APRN V04.81 FLU DX (3 YRS AND ABOVE, IM) 04/05/2012 GRZEG[address]Z RO APRN 466.0 ACUTE BRONCHITIS 04/05/2012 JULY PARKS DO 466.0 ACUTE BRONCHITIS 04/05/2012 JULY PARKS DO 466.0 ACUTE BRONCHITIS 04/05/[address] APRN S 466.0 ACUTE BRONCHITIS 04/05/2012 466.0 ACUTE BRONCHITIS 04/05/2012 JULY PARKS DO K 466.0 ACUTE BRONCHITIS 04/05/2012 466.0 ACUTE BRONCHITIS 04/05/2012 JULY PARKS DO 466.0 ACUTE BRONCHITIS 04/05/2012 ALESIA PAEZ APRN 466.0 ACUTE BRONCHITIS 04/05/2012 466.0 ACUTE BRONCHITIS 04/05/2012 466.0 ACUTE BRONCHITIS 04/05/2012 466.0 ACUTE BRONCHITIS 04/05/2012 466.0 ACUTE BRONCHITIS 04/05/2012 466.0 ACUTE BRONCHITIS 04/05/2012 PARKS DO, JULY K 466.0 ACUTE BRONCHITIS 04/05/2012 FLORENTIN MARIO, EZEKIEL N 466.0 ACUTE BRONCHITIS 04/05/2012 LYNNE VELASQUEZ, GAB R 466.0 ACUTE BRONCHITIS 04/05/2012 EZEKIEL LERMA MD N 466.0 ACUTE BRONCHITIS 04/05/2012 EZEKIEL LERMA MD N 466.0 ACUTE BRONCHITIS 04/05/2012 ARIADNA OJEDA MD 466.0 ACUTE BRONCHITIS 04/05/2012 EZEKIEL LERMA MD N 466.0 ACUTE BRONCHITIS 04/05/2012 EZEKIEL LERMA MD N 466.0 ACUTE BRONCHITIS 04/05/2012 PARKS DO, JULY K 466.0 ACUTE BRONCHITIS 04/05/2012 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, GAB R 466.0 ACUTE BRONCHITIS 04/05/2012 LYNNE VELASQUEZ, GAB R 466.0 ACUTE BRONCHITIS 04/05/2012 FLORENTIN MARIO EZEKIEL N 466.0 ACUTE BRONCHITIS 04/05/2012 KASEY MADRID JULY K 466.0 ACUTE BRONCHITIS 04/05/2012 EZEKIEL LERMA MD N 466.0 ACUTE BRONCHITIS 04/05/2012 NOLAN ALMENDAREZ APRN D 466.0 ACUTE BRONCHITIS 04/05/2012 466.0 ACUTE BRONCHITIS 04/05/[address] APRN S 466.0 ACUTE BRONCHITIS 04/05/2012 LYNNE VELASQUEZ GAB R 466.0 ACUTE BRONCHITIS 04/05/2012 FLORENTIN MARIO EZEKIEL N 466.0 ACUTE BRONCHITIS 04/05/2012 NOLAN ALMENDAREZ APRN D 466.0 ACUTE BRONCHITIS 04/26/2012 PARKS DO JULY K 782.0 DISTURBANCE OF SKIN SENSATION 04/26/2012 PARKS DO, JULY K 784.0 HEADACHE 04/26/2012 PARKS DO, JULY K 782.0 DISTURBANCE OF SKIN SENSATION 04/26/2012 PARKS DO, JULY K 784.0 HEADACHE 04/26/2012 JIA VELASQUEZ GRZEGORZ S 782.0 DISTURBANCE OF SKIN SENSATION 04/26/2012 JIA VELASQUEZ GRZEGORZ S 784.0 HEADACHE 04/26/2012 782.0 DISTURBANCE OF SKIN SENSATION 04/26/2012 784.0 HEADACHE 04/26/2012 PARKS DO, JULY K 782.0 DISTURBANCE OF SKIN SENSATION 04/26/2012 PARKS DO, JULY K 784.0 HEADACHE 04/26/2012 782.0 DISTURBANCE OF SKIN SENSATION 04/26/2012 784.0 HEADACHE 04/26/2012 MEG PARKS DOA K 782.0 DISTURBANCE OF SKIN SENSATION 04/26/2012 KASEY MADRID, JULY K 784.0 HEADACHE 04/26/2012 PAEZ 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 ALESIA Blanchard 782.0 DISTURBANCE OF SKIN SENSATION 04/26/2012 PAEZ 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, ALESIA Blanchard 784.0 HEADACHE 04/26/2012 782.0 DISTURBANCE OF SKIN SENSATION 04/26/2012 784.0 HEADACHE 04/26/2012 782.0 DISTURBANCE OF SKIN SENSATION 04/26/2012 784.0 HEADACHE 04/26/2012 782.0 DISTURBANCE OF SKIN SENSATION 04/26/2012 784.0 HEADACHE 04/26/2012 782.0 DISTURBANCE OF SKIN SENSATION 04/26/2012 784.0 HEADACHE 04/26/2012 782.0 DISTURBANCE OF SKIN SENSATION 04/26/2012 784.0 HEADACHE 04/26/2012 MEG PARKS DOA K 782.0 DISTURBANCE OF SKIN SENSATION 04/26/2012 KASEY MADRID, JULY K 784.0 HEADACHE 04/26/2012 EZEKIEL LERMA MD N 782.0 DISTURBANCE OF SKIN SENSATION 04/26/2012 EZEKIEL LERMA MD 784.0 HEADACHE 04/26/2012 LYNNE VELASQUEZ, GAB R 782.0 DISTURBANCE OF SKIN SENSATION 04/26/2012 LYNNE VELASQUEZ, GAB R 784.0 HEADACHE 04/26/2012 EZEKIEL LERMA MD N 782.0 DISTURBANCE OF SKIN SENSATION 04/26/2012 EZEKIEL LERMA MD N 784.0 HEADACHE 04/26/2012 EZEKIEL LERMA MD N 782.0 DISTURBANCE OF SKIN SENSATION 04/26/2012 EZEKIEL LERMA MD N 784.0 HEADACHE 04/26/2012 ARIADNA OJEDA MD 782.0 DISTURBANCE OF SKIN SENSATION 04/26/2012 ARIADNA OJEDA MD 784.0 HEADACHE 04/26/2012 EZEKIEL LERMA MD N 782.0 DISTURBANCE OF SKIN SENSATION 04/26/2012 EZEKIEL LERMA MD N 784.0 HEADACHE 04/26/2012 EZEKIEL LERMA MD 782.0 DISTURBANCE OF SKIN SENSATION 04/26/2012 EZEKIEL LERMA MD N 784.0 HEADACHE 04/26/2012 PARKS DO, JULY K 782.0 DISTURBANCE OF SKIN SENSATION 04/26/2012 PARKS DO, JULY K 784.0 HEADACHE 04/26/2012 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, GAB R 782.0 DISTURBANCE OF SKIN SENSATION 04/26/2012 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, GAB R 784.0 HEADACHE 04/26/2012 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, GAB R 782.0 DISTURBANCE OF SKIN SENSATION 04/26/2012 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, GAB R 784.0 HEADACHE 04/26/2012 EZEKIEL LERMA MD N 782.0 DISTURBANCE OF SKIN SENSATION 04/26/2012 EZEKIEL LERMA MD 784.0 HEADACHE 04/26/2012 PAKRS MEG MADRIDA K 782.0 DISTURBANCE OF SKIN SENSATION 04/26/2012 MEG PARKS DOA K 784.0 HEADACHE 04/26/2012 EZEKIEL LERMA MD N 782.0 DISTURBANCE OF SKIN SENSATION 04/26/2012 EZEKIEL LERMA MD N 784.0 HEADACHE 04/26/2012 NOLAN ALMENDAREZ APRN 782.0 DISTURBANCE OF SKIN SENSATION 04/26/2012 NOLAN ALMENDAREZ APRN 784.0 HEADACHE 04/26/2012 782.0 DISTURBANCE OF SKIN SENSATION 04/26/2012 784.0 HEADACHE 04/26/[address] LU[address]O RO APRNA S 782.0 DISTURBANCE OF SKIN SENSATION 04/26/2012 LUISITO RO APRNA S 784.0 HEADACHE 04/26/2012 LYNNE VELASQUEZ, GAB R 782.0 DISTURBANCE OF SKIN SENSATION 04/26/2012 LYNNE VELASQUEZ, GAB R 784.0 HEADACHE 04/26/2012 EZEKIEL LERMA MD N 782.0 DISTURBANCE OF SKIN SENSATION 04/26/2012 EZEKIEL LERMA MD 784.0 HEADACHE 04/26/2012 NOLAN ALMENDAREZ APRN 782.0 DISTURBANCE OF SKIN SENSATION 04/26/2012 NOLAN ALMENDAREZ APRN 784.0 HEADACHE 06/28/2012 491.21 CHRONIC BRONCHITIS - WITH ACUTE EXACERBATION 06/28/2012 MEG PARKS DOA K 491.21 CHRONIC BRONCHITIS - WITH ACUTE EXACERBATION 06/28/2012 491.21 CHRONIC BRONCHITIS - WITH ACUTE EXACERBATION 06/28/2012 JULY PARKS DO 491.21 CHRONIC BRONCHITIS - WITH ACUTE EXACERBATION 06/28/2012 ALESIA PAEZ APRN 491.21 CHRONIC BRONCHITIS - WITH ACUTE EXACERBATION 06/28/2012 491.21 CHRONIC BRONCHITIS - WITH ACUTE EXACERBATION 06/28/2012 491.21 CHRONIC BRONCHITIS - WITH ACUTE EXACERBATION 06/28/2012 491.21 CHRONIC BRONCHITIS - WITH ACUTE EXACERBATION 06/28/2012 491.21 CHRONIC BRONCHITIS - WITH ACUTE EXACERBATION 06/28/2012 491.21 CHRONIC BRONCHITIS - WITH ACUTE EXACERBATION 06/28/2012 JULY PARKS DO 491.21 CHRONIC BRONCHITIS - WITH ACUTE EXACERBATION 06/28/2012 EZEKIEL LERMA MD 491.21 CHRONIC BRONCHITIS - WITH ACUTE EXACERBATION 06/28/2012 GAB BATISTA APRN 491.21 CHRONIC BRONCHITIS - WITH ACUTE EXACERBATION 06/28/2012 EZEKIEL LERMA MD 491.21 CHRONIC BRONCHITIS - WITH ACUTE EXACERBATION 06/28/2012 EZEKIEL LERMA MD 491.21 CHRONIC BRONCHITIS - WITH ACUTE EXACERBATION 06/28/2012 ARIADNA OJEDA MD 491.21 CHRONIC BRONCHITIS - WITH ACUTE EXACERBATION 06/28/2012 EZEKIEL LERMA MD 491.21 CHRONIC BRONCHITIS - WITH ACUTE EXACERBATION 06/28/2012 EZEKIEL LERMA MD 491.21 CHRONIC BRONCHITIS - WITH ACUTE EXACERBATION 06/28/2012 JULY PARKS DO 491.21 CHRONIC BRONCHITIS - WITH ACUTE EXACERBATION 06/28/2012 AGB BATISTA APRN R 491.21 CHRONIC BRONCHITIS - WITH ACUTE EXACERBATION 06/28/2012 GAB BATISTA APRN R 491.21 CHRONIC BRONCHITIS - WITH ACUTE EXACERBATION 06/28/2012 EZEKIEL LERMA MD 491.21 CHRONIC BRONCHITIS - WITH ACUTE EXACERBATION 06/28/2012 JULY PARKS DO 491.21 CHRONIC BRONCHITIS - WITH ACUTE EXACERBATION 06/28/2012 EZEKIEL LERMA MD 491.21 CHRONIC BRONCHITIS - WITH ACUTE EXACERBATION 06/28/2012 NOLAN ALMENDAREZ APRN 491.21 CHRONIC BRONCHITIS - WITH ACUTE EXACERBATION 06/28/2012 491.21 CHRONIC BRONCHITIS - WITH ACUTE EXACERBATION 06/28/2012 GRZEGORZ RO APRN 491.21 CHRONIC BRONCHITIS - WITH ACUTE EXACERBATION 06/28/2012 LYNNE VELASQUEZ GAB R 491.21 CHRONIC BRONCHITIS - WITH ACUTE EXACERBATION 06/28/2012 EZEKIEL LERMA MD 491.21 CHRONIC BRONCHITIS - WITH ACUTE EXACERBATION 06/28/2012 NOLAN ALMENDAREZ APRN 491.21 CHRONIC BRONCHITIS - WITH ACUTE EXACERBATION 07/01/2012 PARKS DO, JULY K 786.09 DYSPNEA 07/01/2012 786.09 DYSPNEA 07/01/2012 PARKS DO, JULY K 786.09 DYSPNEA 07/01/2012 ALESIA PAEZ APRN 786.09 DYSPNEA 07/01/2012 786.09 DYSPNEA 07/01/2012 786.09 DYSPNEA 07/01/2012 786.09 DYSPNEA 07/01/2012 786.09 DYSPNEA 07/01/2012 786.09 DYSPNEA 07/01/2012 PARKS , JULY K 786.09 DYSPNEA 07/01/2012 EZEKIEL LERMA MD 786.09 DYSPNEA 07/01/2012 MARILYN BATISTA APRNINA R 786.09 DYSPNEA 07/01/2012 EZEKIEL LERMA MD 786.09 DYSPNEA 07/01/2012 EZEKIEL LERMA MD 786.09 DYSPNEA 07/01/2012 ARIADNA OJEDA MD 786.09 DYSPNEA 07/01/2012 EZEKIEL LERMA MD 786.09 DYSPNEA 07/01/2012 EZEKIEL LERMA MD 786.09 DYSPNEA 07/01/2012 KASEY MADRID, JULY K 786.09 DYSPNEA 07/01/2012 MARILYN BATISTA APRNINA R 786.09 DYSPNEA 07/01/2012 MARILYN BATISTA APRNINA R 786.09 DYSPNEA 07/01/2012 EZEKIEL LERMA MD 786.09 DYSPNEA 07/01/2012 MEG PARKS DOA K 786.09 DYSPNEA 07/01/2012 EZEKIEL LERMA MD 786.09 DYSPNEA 07/01/2012 NOLAN ALMENDAREZ APRN 786.09 DYSPNEA 07/01/2012 786.09 DYSPNEA 07/01/2012 GRZEGORZ RO APRN 786.09 DYSPNEA 07/01/2012 MARILYN BATISTA APRNINA R 786.09 DYSPNEA 07/01/2012 EZEKIEL LERMA MD 786.09 DYSPNEA 07/01/2012 NOLAN ALMENDAREZ APRN 786.09 DYSPNEA 07/21/2012 ALESIA PAEZ APRN 719.41 PAIN IN JOINT INVOLVING SHOULDER REGION 07/21/2012 719.41 PAIN IN JOINT INVOLVING SHOULDER REGION 07/21/2012 719.41 PAIN IN JOINT INVOLVING SHOULDER REGION 07/21/2012 719.41 PAIN IN JOINT INVOLVING SHOULDER REGION 07/21/2012 719.41 PAIN IN JOINT INVOLVING SHOULDER REGION 07/21/2012 719.41 PAIN IN JOINT INVOLVING SHOULDER REGION 07/21/2012 JULY PARKS DO 719.41 PAIN IN JOINT INVOLVING SHOULDER REGION 07/21/2012 EZEKIEL LERMA MD 719.41 PAIN IN JOINT INVOLVING SHOULDER REGION 07/21/2012 GAB BATISTA APRN 719.41 PAIN IN JOINT INVOLVING SHOULDER REGION 07/21/2012 EZEKIEL LERMA MD 719.41 PAIN IN JOINT INVOLVING SHOULDER REGION 07/21/2012 EZEKIEL LERMA MD 719.41 PAIN IN JOINT INVOLVING SHOULDER REGION 07/21/2012 ARIADNA OJEDA MD 719.41 PAIN IN JOINT INVOLVING SHOULDER REGION 07/21/2012 EZEKIEL LERMA MD 719.41 PAIN IN JOINT INVOLVING SHOULDER REGION 07/21/2012 EZEKIEL LERMA MD 719.41 PAIN IN JOINT INVOLVING SHOULDER REGION 07/21/2012 JULY PARKS DO 719.41 PAIN IN JOINT INVOLVING SHOULDER REGION 07/21/2012 GAB BATISTA APRN 719.41 PAIN IN JOINT INVOLVING SHOULDER REGION 07/21/2012 GAB BATISTA APRN 719.41 PAIN IN JOINT INVOLVING SHOULDER REGION 07/21/2012 EZEKIEL LERMA MD 719.41 PAIN IN JOINT INVOLVING SHOULDER REGION 07/21/2012 JULY PARKS DO 719.41 PAIN IN JOINT INVOLVING SHOULDER REGION 07/21/2012 EZEKIEL LERMA MD 719.41 PAIN IN JOINT INVOLVING SHOULDER REGION 07/21/2012 NOLAN ALMENDAREZ APRN 719.41 PAIN IN JOINT INVOLVING SHOULDER REGION 07/21/2012 719.41 PAIN IN JOINT INVOLVING SHOULDER REGION 07/21/[address]ZEG[address]Z RO APRN 719.41 PAIN IN JOINT INVOLVING SHOULDER REGION 07/21/2012 GAB BATISTA APRN 719.41 PAIN IN JOINT INVOLVING SHOULDER REGION 07/21/2012 EZEKIEL LERMA MD 719.41 PAIN IN JOINT INVOLVING SHOULDER REGION 07/21/2012 NOLAN ALMENDAREZ APRN 719.41 PAIN IN JOINT INVOLVING SHOULDER REGION 08/04/2012 726.10 DISORDERS OF BURSAE AND TENDONS IN SHOULDER REGION UNSPECIFIED 08/04/2012 726.10 DISORDERS OF BURSAE AND TENDONS IN SHOULDER REGION UNSPECIFIED 08/04/2012 726.10 DISORDERS OF BURSAE AND TENDONS IN SHOULDER REGION UNSPECIFIED 08/04/2012 726.10 DISORDERS OF BURSAE AND TENDONS IN SHOULDER REGION UNSPECIFIED 08/04/2012 726.10 DISORDERS OF BURSAE AND TENDONS IN SHOULDER REGION UNSPECIFIED 08/04/2012 JULY PARKS DO 726.10 DISORDERS OF BURSAE AND TENDONS IN SHOULDER REGION UNSPECIFIED 08/04/2012 EZEKIEL LERMA MD 726.10 DISORDERS OF BURSAE AND TENDONS IN SHOULDER REGION UNSPECIFIED 08/04/2012 GAB BATISTA APRN R 726.10 DISORDERS OF BURSAE AND TENDONS IN SHOULDER REGION UNSPECIFIED 08/04/2012 EZEKIEL LERMA MD 726.10 DISORDERS OF BURSAE AND TENDONS IN SHOULDER REGION UNSPECIFIED 08/04/2012 EZEKIEL LERMA MD 726.10 DISORDERS OF BURSAE AND TENDONS IN SHOULDER REGION UNSPECIFIED 08/04/2012 ARIADNA OJEDA MD 726.10 DISORDERS OF BURSAE AND TENDONS IN SHOULDER REGION UNSPECIFIED 08/04/2012 EZEKIEL LERMA MD 726.10 DISORDERS OF BURSAE AND TENDONS IN SHOULDER REGION UNSPECIFIED 08/04/2012 EZEKIEL LERMA MD N 726.10 DISORDERS OF BURSAE AND TENDONS IN SHOULDER REGION UNSPECIFIED 08/04/2012 JULY PARKS DO 726.10 DISORDERS OF BURSAE AND TENDONS IN SHOULDER REGION UNSPECIFIED 08/04/2012 GAB BATISTA APRN R 726.10 DISORDERS OF BURSAE AND TENDONS IN SHOULDER REGION UNSPECIFIED 08/04/2012 MARILYN BATISTA APRNINA R 726.10 DISORDERS OF BURSAE AND TENDONS IN SHOULDER REGION UNSPECIFIED 08/04/2012 EZEKIEL LERMA MD N 726.10 DISORDERS OF BURSAE AND TENDONS IN SHOULDER REGION UNSPECIFIED 08/04/2012 JULY PARKS DO 726.10 DISORDERS OF BURSAE AND TENDONS IN SHOULDER REGION UNSPECIFIED 08/04/2012 FLORENTIN MD, EZEKIEL N 726.10 DISORDERS OF BURSAE AND TENDONS IN SHOULDER REGION UNSPECIFIED 08/04/2012 NOLAN ALMENDAREZ APRN 726.10 DISORDERS OF BURSAE AND TENDONS IN SHOULDER REGION UNSPECIFIED 08/04/2012 726.10 DISORDERS OF BURSAE AND TENDONS IN SHOULDER REGION UNSPECIFIED 08/04/2012 GRZEGORZ RO APRN 726.10 DISORDERS OF BURSAE AND TENDONS IN SHOULDER REGION UNSPECIFIED 08/04/2012 GAB BATISTA APRN R 726.10 DISORDERS OF BURSAE AND TENDONS IN SHOULDER REGION UNSPECIFIED 08/04/2012 EZEKIEL LERMA MD N 726.10 DISORDERS OF BURSAE AND TENDONS IN SHOULDER REGION UNSPECIFIED 08/04/2012 NOLAN ALMENDAREZ APRN 726.10 DISORDERS OF BURSAE AND TENDONS IN SHOULDER REGION UNSPECIFIED 08/18/2012 789.04 ABDOMINAL PAIN LEFT LOWER QUADRANT 08/18/2012 789.04 ABDOMINAL PAIN LEFT LOWER QUADRANT 08/18/2012 789.04 ABDOMINAL PAIN LEFT LOWER QUADRANT 08/18/2012 789.04 ABDOMINAL PAIN LEFT LOWER QUADRANT 08/18/2012 JULY PARKS DO 789.04 ABDOMINAL PAIN LEFT LOWER QUADRANT 08/18/2012 EZEKIEL LERMA MD N 789.04 ABDOMINAL PAIN LEFT LOWER QUADRANT 08/18/2012 GAB BATISTA APRN R 789.04 ABDOMINAL PAIN LEFT LOWER QUADRANT 08/18/2012 EZEKIEL LERMA MD N 789.04 ABDOMINAL PAIN LEFT LOWER QUADRANT 08/18/2012 EZEKIEL LERMA MD N 789.04 ABDOMINAL PAIN LEFT LOWER QUADRANT 08/18/2012 ARIADNA OJEDA MD 789.04 ABDOMINAL PAIN LEFT LOWER QUADRANT 08/18/2012 EZEKIEL LERMA MD N 789.04 ABDOMINAL PAIN LEFT LOWER QUADRANT 08/18/2012 EZEKIEL LERMA MD N 789.04 ABDOMINAL PAIN LEFT LOWER QUADRANT 08/18/2012 JULY PARKS DO K 789.04 ABDOMINAL PAIN LEFT LOWER QUADRANT 08/18/2012 GAB BATISTA APRN R 789.04 ABDOMINAL PAIN LEFT LOWER QUADRANT 08/18/2012 GAB BATISTA APRN R 789.04 ABDOMINAL PAIN LEFT LOWER QUADRANT 08/18/2012 EZEKIEL LERMA MD N 789.04 ABDOMINAL PAIN LEFT LOWER QUADRANT 08/18/2012 JULY PARKS DO K 789.04 ABDOMINAL PAIN LEFT LOWER QUADRANT 08/18/2012 EZEKIEL LERMA MD N 789.04 ABDOMINAL PAIN LEFT LOWER QUADRANT 08/18/2012 NOLAN ALMENDAREZ APRN 789.04 ABDOMINAL PAIN LEFT LOWER QUADRANT 08/18/2012 789.04 ABDOMINAL PAIN LEFT LOWER QUADRANT 08/18/[address] APRN 789.04 ABDOMINAL PAIN LEFT LOWER QUADRANT 08/18/2012 GAB BATISTA APRN R 789.04 ABDOMINAL PAIN LEFT LOWER QUADRANT 08/18/2012 EZEKIEL LERMA MD 789.04 ABDOMINAL PAIN LEFT LOWER QUADRANT 08/18/2012 NOLAN ALMENDAREZ APRN 789.04 ABDOMINAL PAIN LEFT LOWER QUADRANT 09/01/2012 789.06 ABDOMINAL PAIN EPIGASTRIC 09/01/2012 789.07 ABDOMINAL PAIN GENERALIZED 09/01/2012 789.06 ABDOMINAL PAIN EPIGASTRIC 09/01/2012 789.07 ABDOMINAL PAIN GENERALIZED 09/01/2012 789.06 ABDOMINAL PAIN EPIGASTRIC 09/01/2012 789.07 ABDOMINAL PAIN GENERALIZED 09/01/2012 PARKS JULY MADRID K 789.06 ABDOMINAL PAIN EPIGASTRIC 09/01/2012 PARKS DOJULY K 789.07 ABDOMINAL PAIN GENERALIZED 09/01/2012 EZEKIEL LERMA MD N 789.06 ABDOMINAL PAIN EPIGASTRIC 09/01/2012 EZEKIEL LERMA MD N 789.07 ABDOMINAL PAIN GENERALIZED 09/01/2012 GAB BATISTA APRN R 789.06 ABDOMINAL PAIN EPIGASTRIC 09/01/2012 GAB BATISTA APRN R 789.07 ABDOMINAL PAIN GENERALIZED 09/01/2012 EZEKIEL LERMA MD N 789.06 ABDOMINAL PAIN EPIGASTRIC 09/01/2012 EZEKIEL LERMA MD N 789.07 ABDOMINAL PAIN GENERALIZED 09/01/2012 EZEKIEL LERMA MD 789.06 ABDOMINAL PAIN EPIGASTRIC 09/01/2012 EZEKIEL LERMA MD 789.07 ABDOMINAL PAIN GENERALIZED 09/01/2012 ARIADNA OJEDA MD 789.06 ABDOMINAL PAIN EPIGASTRIC 09/01/2012 ARIADNA OJEDA MD 789.07 ABDOMINAL PAIN GENERALIZED 09/01/2012 EZEKIEL LERMA MD 789.06 ABDOMINAL PAIN EPIGASTRIC 09/01/2012 EZEKIEL LERMA MD 789.07 ABDOMINAL PAIN GENERALIZED 09/01/2012 EZEKIEL LERMA MD N 789.06 ABDOMINAL PAIN EPIGASTRIC 09/01/2012 EZEKIEL LERMA MD N 789.07 ABDOMINAL PAIN GENERALIZED 09/01/2012 MEG PARKS DOA K 789.06 ABDOMINAL PAIN EPIGASTRIC 09/01/2012 KASEY MADRID JULY K 789.07 ABDOMINAL PAIN GENERALIZED 09/01/2012 LYNNE VELASQUEZ GAB R 789.06 ABDOMINAL PAIN EPIGASTRIC 09/01/2012 MARILYN BATISTA APRNINA R 789.07 ABDOMINAL PAIN GENERALIZED 09/01/2012 MARILYN BATISTA APRNINA R 789.06 ABDOMINAL PAIN EPIGASTRIC 09/01/2012 MARILYN BATISTA APRNINA R 789.07 ABDOMINAL PAIN GENERALIZED 09/01/2012 EZEKIEL LERMA MD N 789.06 ABDOMINAL PAIN EPIGASTRIC 09/01/2012 EZEKIEL LERMA MD N 789.07 ABDOMINAL PAIN GENERALIZED 09/01/2012 MEG PARKS DOA K 789.06 ABDOMINAL PAIN EPIGASTRIC 09/01/2012 KASEY MADRID JULY K 789.07 ABDOMINAL PAIN GENERALIZED 09/01/2012 EZEKIEL LERMA MD N 789.06 ABDOMINAL PAIN EPIGASTRIC 09/01/2012 EZEKIEL LERMA MD N 789.07 ABDOMINAL PAIN GENERALIZED 09/01/2012 NOLAN ALMENDAREZ APRN 789.06 ABDOMINAL PAIN EPIGASTRIC 09/01/2012 NOLAN ALMENDAREZ APRN 789.07 ABDOMINAL PAIN GENERALIZED 09/01/2012 789.06 ABDOMINAL PAIN EPIGASTRIC 09/01/2012 789.07 ABDOMINAL PAIN GENERALIZED 09/01/2012 GRZEGORZ RO APRN S 789.06 ABDOMINAL PAIN EPIGASTRIC 09/01/2012 GRZEGORZ RO APRN S 789.07 ABDOMINAL PAIN GENERALIZED 09/01/2012 MARILYN BATISTA APRNINA R 789.06 ABDOMINAL PAIN EPIGASTRIC 09/01/2012 MARILYN BATISTA APRNINA R 789.07 ABDOMINAL PAIN GENERALIZED 09/01/2012 EZEKIEL LERMA MD N 789.06 ABDOMINAL PAIN EPIGASTRIC 09/01/2012 EZEKIEL LERMA MD 789.07 ABDOMINAL PAIN GENERALIZED 09/01/2012 NOLAN ALMENDAREZ APRN 789.06 ABDOMINAL PAIN EPIGASTRIC 09/01/2012 NOLAN ALMENDAREZ APRN 789.07 ABDOMINAL PAIN GENERALIZED 02/11/2013 RUSTY MARIO, ARIADNA [place] Ot 070.70 02/11/2013 RUSTY MARIO, ARIADNA [place] Ot 244.0 02/11/2013 RUSTY MARIO, ARIADNA [place] Ot 305.1 02/11/2013 RUSTY MARIO, ARIADNA [place] Ot 311 02/11/2013 RUSTY MARIO, ARIADAN [place] Ot 338.29 02/11/2013 RUSTY MARIO, ARIADNA [place] Ot 401.9 02/11/2013 RUSTY MARIO, ARIADNA [place] Ot 491.22 02/11/2013 RUSTY MARIO, ARIADNA [place] Ot 511.0 02/11/2013 RUSTY MARIO, ARIADNA [place] Ot 518.0 02/11/2013 RUSTY MARIO, ARIADNA [place] Ot 564.00 02/11/2013 RUSTY MARIO, ARIADNA [place] Ot 733.00 02/11/2013 RUSTY MARIO, ARIADNA [place] 786.59 02/11/2013 RUSTY MARIO, ARIADNA [place] Ot V03.82 02/11/2013 RUSTY MARIO, ARIADNA [place] V04.81 04/23/2013 HANS HELMS MD Ot 490 04/23/2013 HANS HELMS MD Ot 786.2 06/01/2013 EZEKIEL LERMA MD 729.1 MYALGIA AND MYOSITIS UNSPECIFIED 06/01/2013 ARIADNA OJEDA MD 729.1 MYALGIA AND MYOSITIS UNSPECIFIED 06/01/2013 EZEKIEL LERMA MD 729.1 MYALGIA AND MYOSITIS UNSPECIFIED 06/01/2013 EZEKIEL LERMA MD 729.1 MYALGIA AND MYOSITIS UNSPECIFIED 06/01/2013 JULY PARKS DO 729.1 MYALGIA AND MYOSITIS UNSPECIFIED 06/01/2013 LYNNE VELASQUEZ, GAB R 729.1 MYALGIA AND MYOSITIS UNSPECIFIED 06/01/2013 GAB BATISTA APRN R 729.1 MYALGIA AND MYOSITIS UNSPECIFIED 06/01/2013 EZEKIEL LERMA MD 729.1 MYALGIA AND MYOSITIS UNSPECIFIED 06/01/2013 JULY PARKS DO 729.1 MYALGIA AND MYOSITIS UNSPECIFIED 06/01/2013 EZEKIEL LERMA MD 729.1 MYALGIA AND MYOSITIS UNSPECIFIED 06/01/2013 NOLAN ALMENDAREZ APRN 729.1 MYALGIA AND MYOSITIS UNSPECIFIED 06/01/2013 729.1 MYALGIA AND MYOSITIS UNSPECIFIED 06/01/2013 GRZEGORZ RO APRN 729.1 MYALGIA AND MYOSITIS UNSPECIFIED 06/01/2013 GAB BATISTA APRN 729.1 MYALGIA AND MYOSITIS UNSPECIFIED 06/01/2013 EZEKIEL LERMA MD 729.1 MYALGIA AND MYOSITIS UNSPECIFIED 06/01/2013 NOLAN ALMENDAREZ APRN 729.1 MYALGIA AND MYOSITIS UNSPECIFIED 06/20/2013 ARIADNA OJEDA MD 716.90 UNSPECIFIED ARTHROPATHY SITE UNSPECIFIED 06/20/2013 EZEKIEL LERMA MD 716.90 UNSPECIFIED ARTHROPATHY SITE UNSPECIFIED 06/20/2013 EZEKIEL LERMA MD 716.90 UNSPECIFIED ARTHROPATHY SITE UNSPECIFIED 06/20/2013 JULY PARKS DO 716.90 UNSPECIFIED ARTHROPATHY SITE UNSPECIFIED 06/20/2013 GAB BATISTA APRN R 716.90 UNSPECIFIED ARTHROPATHY SITE UNSPECIFIED 06/20/2013 GAB BATISTA APRN 716.90 UNSPECIFIED ARTHROPATHY SITE UNSPECIFIED 06/20/2013 EZEKIEL LERMA MD 716.90 UNSPECIFIED ARTHROPATHY SITE UNSPECIFIED 06/20/2013 JULY PARKS DO 716.90 UNSPECIFIED ARTHROPATHY SITE UNSPECIFIED 06/20/2013 EZEKIEL LERMA MD 716.90 UNSPECIFIED ARTHROPATHY SITE UNSPECIFIED 06/20/2013 NOLAN ALMENDAREZ APRN 716.90 UNSPECIFIED ARTHROPATHY SITE UNSPECIFIED 06/20/2013 716.90 UNSPECIFIED ARTHROPATHY SITE UNSPECIFIED 06/20/2013 GRZEGORZ RO APRN 716.90 UNSPECIFIED ARTHROPATHY SITE UNSPECIFIED 06/20/2013 GAB BATISTA APRN 716.90 UNSPECIFIED ARTHROPATHY SITE UNSPECIFIED 06/20/2013 EZEKIEL LERMA MD 716.90 UNSPECIFIED ARTHROPATHY SITE UNSPECIFIED 06/20/2013 NOLAN ALMENDAREZ APRN 716.90 UNSPECIFIED ARTHROPATHY SITE UNSPECIFIED 09/03/2013 DEVON BRAND Ot 728.71 09/03/2013 DEVON BRAND Ot 729.5 09/07/2013 PARKS DO, JULY K 726.5 ENTHESOPATHY OF HIP REGION 09/07/2013 GAB BATISTA APRN R 726.5 ENTHESOPATHY OF HIP REGION 09/07/2013 GAB BATISTA APRN R 726.5 ENTHESOPATHY OF HIP REGION 09/07/2013 EZEKIEL LERMA MD 726.5 ENTHESOPATHY OF HIP REGION 09/07/2013 PARKS DO, JULY K 726.5 ENTHESOPATHY OF HIP REGION 09/07/2013 EZEKIEL LERMA MD 726.5 ENTHESOPATHY OF HIP REGION 09/07/2013 NOLAN ALMENDAREZ APRN 726.5 ENTHESOPATHY OF HIP REGION 09/07/2013 726.5 ENTHESOPATHY OF HIP REGION 09/07/2013 GRZEGORZ RO APRN 726.5 ENTHESOPATHY OF HIP REGION 09/07/2013 GAB BATISTA APRN R 726.5 ENTHESOPATHY OF HIP REGION 09/07/2013 EZEKIEL LERMA MD N 726.5 ENTHESOPATHY OF HIP REGION 09/07/2013 NOLAN ALMENDAREZ APRN 726.5 ENTHESOPATHY OF HIP REGION 09/14/2013 PARKS DO, JULY K Ot 070.70 09/14/2013 PARKS DO, JLUY K Ot 244.0 09/14/2013 PARKS DO, JULY K Ot 305.1 09/14/2013 PARKS DO, JULY K Ot 311 09/14/2013 PAKRS DO, JULY K Ot 338.29 09/14/2013 PARKS DO, JULY K Ot 401.9 09/14/2013 PARKS DO, JULY K Ot 733.00 09/14/2013 PARKS DO, JULY K Ot 784.0 09/14/2013 PARKS DO, JULY K Ot 787.02 09/14/2013 PARKS DO, JULY K Ot 787.91 09/21/2013 GAB BATISTA APRN R 339.10 TENSION TYPE HEADACHE UNSPECIFIED 09/21/2013 GAB BATISTA APRN R 789.00 ABDOMINAL PAIN UNSPECIFIED SITE 09/21/2013 LYNNE VELASQUEZ GAB R 339.10 TENSION TYPE HEADACHE UNSPECIFIED 09/21/2013 LYNNE VELASQUEZ, GAB R 789.00 ABDOMINAL PAIN UNSPECIFIED SITE 09/21/2013 EZEKIEL LERMA MD N 339.10 TENSION TYPE HEADACHE UNSPECIFIED 09/21/2013 EZEKIEL LERMA MD N 789.00 ABDOMINAL PAIN UNSPECIFIED SITE 09/21/2013 PARKS DO, JULY K 339.10 TENSION TYPE HEADACHE UNSPECIFIED 09/21/2013 PARKS DO, JULY K 789.00 ABDOMINAL PAIN UNSPECIFIED SITE 09/21/2013 EZEKIEL LERMA MD N 339.10 TENSION TYPE HEADACHE UNSPECIFIED 09/21/2013 EZEKIEL LERMA MD 789.00 ABDOMINAL PAIN UNSPECIFIED SITE 09/21/2013 NOLAN ALMENDAREZ APRN 339.10 TENSION TYPE HEADACHE UNSPECIFIED 09/21/2013 NOLAN ALMENDAREZ APRN 789.00 ABDOMINAL PAIN UNSPECIFIED SITE 09/21/2013 339.10 TENSION TYPE HEADACHE UNSPECIFIED 09/21/2013 789.00 ABDOMINAL PAIN UNSPECIFIED SITE 09/21/[address] APRN S 339.10 TENSION TYPE HEADACHE UNSPECIFIED 09/21/[address]ZE[address]Z RO APRN S 789.00 ABDOMINAL PAIN UNSPECIFIED SITE 09/21/2013 GAB BATISTA APRN R 339.10 TENSION TYPE HEADACHE UNSPECIFIED 09/21/2013 MARILYN BATISTA APRNINA R 789.00 ABDOMINAL PAIN UNSPECIFIED SITE 09/21/2013 EZEKIEL LERMA MD N 339.10 TENSION TYPE HEADACHE UNSPECIFIED 09/21/2013 EZEKIEL LERMA MD 789.00 ABDOMINAL PAIN UNSPECIFIED SITE 09/21/2013 NOLAN ALMENDAREZ APRN 339.10 TENSION TYPE HEADACHE UNSPECIFIED 09/21/2013 NOLAN ALMENDAREZ APRN 789.00 ABDOMINAL PAIN UNSPECIFIED SITE 10/31/2013 CHRIST COBURN DO Ot 564.00 12/27/2013 PARKS DO, JULY K V74.1 TB SCREENING 12/27/2013 EZEKIEL LERMA MD N V74.1 TB SCREENING 12/27/2013 NOLAN ALMENDAREZ APRN V74.1 TB SCREENING 12/27/2013 V74.1 TB SCREENING 12/27/[address] APRN S V74.1 TB SCREENING 12/27/2013 LYNNE VELASQUEZ GAB R V74.1 TB SCREENING 12/27/2013 EZEKIEL LERMA MD V74.1 TB SCREENING 12/27/2013 NOLAN ALMENDAREZ APRN V74.1 TB SCREENING 01/09/2014 EZEKIEL LERMA MD N 354.0 CARPAL TUNNEL SYNDROME 01/09/2014 EZEKIEL LERMA MD N 719.43 PAIN- WRIST 01/09/2014 EZEKIEL LERMA MD N 723.1 PAIN NECK 01/09/2014 NOLAN ALMENDAREZ APRN 354.0 CARPAL TUNNEL SYNDROME 01/09/2014 NOLAN ALMENDAREZ APRN 719.43 PAIN- WRIST 01/09/2014 NOLAN ALMENDAREZ APRN 723.1 PAIN NECK 01/09/2014 354.0 CARPAL TUNNEL SYNDROME 01/09/2014 719.43 PAIN- WRIST 01/09/2014 723.1 PAIN NECK 01/09/[address] APRNA S 354.0 CARPAL TUNNEL SYNDROME 01/09/2014 LUISITO RO APRNA S 719.43 PAIN- WRIST 01/09/2014 LUISITO RO APRNA S 723.1 PAIN NECK 01/09/2014 MARILYN BATISTA APRNINA R 354.0 CARPAL TUNNEL SYNDROME 01/09/2014 MARILYN BATISTA APRNINA R 719.43 PAIN- WRIST 01/09/2014 LYNNE VELASQUEZ GAB R 723.1 PAIN NECK 01/09/2014 EZEKIEL LERMA MD N 354.0 CARPAL TUNNEL SYNDROME 01/09/2014 EZEKIEL LERMA MD 719.43 PAIN- WRIST 01/09/2014 EZEKIEL LERMA MD N 723.1 PAIN NECK 01/09/2014 NOLAN ALMENDAREZ APRN 354.0 CARPAL TUNNEL SYNDROME 01/09/2014 NOLAN ALMENDAREZ APRN 719.43 PAIN- WRIST 01/09/2014 NOLAN ALMENDAREZ APRN 723.1 PAIN NECK 04/05/[address] APRN S 487.1 INFLUENZA 04/05/2014 GAB BATISTA APRN R 487.1 INFLUENZA 04/05/2014 FLORENTIN MARIO, EZEKIEL N 487.1 INFLUENZA 04/05/2014 NOLAN ALMENDAREZ APRN 487.1 INFLUENZA 04/06/2014 Ot 611.71 04/06/2014 Ot 782.0 04/06/2014 Ot 784.0 04/06/2014 FLORENTIN MARIO, EZEKIEL [place] Ot 305.1 04/06/2014 FLORENTIN MARIO, EZEKIEL [place] Ot 783.21 04/06/2014 FLORENTIN MARIO, EZEKIEL N Ot 786.2 04/06/2014 FLORENTIN MARIO, EZEKIEL Ochoa Ot 793.11 04/06/2014 FLORENTIN MARIO, EZEKIEL Ochoa Ot 793.11 04/06/2014 MAYITO NAIK DO Ot 486 04/06/2014 CHRIST COBURN DO Ot V72.84 04/09/2014 RUSTY MARIO, ARIADNA [place] Ot 244.1 04/09/2014 RUSTY MARIO, ARIADNA F Ot 311 04/09/2014 RUSTY MARIO, ARIADNA F Ot 401.9 04/09/2014 RUSTY MARIO, ARIADNA F Ot 486 04/09/2014 RUSTY MARIO, ARIADNA F Ot 487.1 04/09/2014 RUSTY MARIO, ARIADNA F Ot 491.21 04/09/2014 RUSTY MARIO, ARIADNA F Ot 692.9 04/09/2014 RUSTY MARIO, ARIADNA F Ot 724.5 04/09/2014 RUSTY MARIO, ARIADNA F Ot 733.00 04/09/2014 RUSTY MARIO, ARIADNA F Ot V12.09 04/09/2014 RUSTY MARIO, ARIADNA F Ot V12.59 04/09/2014 RUSTY MARIO, ARIADNA F Ot V15.82 04/09/2014 Ot 611.71 04/09/2014 Ot 782.0 04/09/2014 Ot 784.0 04/09/2014 FLORENTIN MARIO, EZEKIEL N Ot 305.1 04/09/2014 FLORENTIN MARIO, EZEKIEL N Ot 783.21 04/09/2014 FLORENTIN MARIO, EZEKIEL N Ot 786.2 04/09/2014 FLORENTIN MARIO, EZEKIEL [place] Ot 793.11 04/09/2014 FLORENTIN MARIO, EZEKIEL N Ot 793.11 04/09/2014 HEENA MADRIDMAYITO Ot 486 04/09/2014 IRISH CHRIST MADRID Ot V72.84 04/09/2014 RUSTY MARIO, ARIADNA F Ot 244.1 04/09/2014 RUSTY MARIO, ARIADNA F Ot 311 04/09/2014 RUSTY MARIO, ARIADNA F Ot 401.9 04/09/2014 RUSTY MARIO, ARIADNA F Ot 486 04/09/2014 RUSTY MARIO, ARIADNA F Ot 487.1 04/09/2014 RUSTY MARIO, ARIADNA F Ot 491.21 04/09/2014 RUSTY MARIO, ARIADNA F Ot 692.9 04/09/2014 RUSTY MARIO, ARIADNA F Ot 724.5 04/09/2014 RUSTY MARIO, ARIADNA F Ot 733.00 04/09/2014 RUSTY MARIO, ARIADNA F Ot V12.09 04/09/2014 RUSTY MARIO, ARIADNA F Ot V12.59 04/09/2014 RUSTY MARIO, ARIADNA F Ot V15.82 04/10/2014 RUSTY MARIO, ARIADNA F Ot 244.1 04/10/2014 RUSTY MARIO, ARIADNA F Ot 311 04/10/2014 RUSTY MARIO, ARIADNA F Ot 401.9 04/10/2014 RUSTY MARIO, ARIADNA F Ot 486 04/10/2014 RUSTY MARIO, ARIADNA F Ot 487.1 04/10/2014 RUSTY MARIO, ARIADNA F Ot 491.21 04/10/2014 RUSTY MARIO, ARIADNA F Ot 692.9 04/10/2014 RUSTY MARIO, ARIADNA F Ot 724.5 04/10/2014 RUSTY MARIO, ARIADNA F Ot 733.00 04/10/2014 RUSTY MARIO, ARIADNA F Ot V12.09 04/10/2014 RUSTY MARIO, ARIADNA F Ot V12.59 04/10/2014 RUSTY MARIO, ARIADNA F Ot V15.82 04/10/2014 RUSTY MARIO, ARIADNA F Ot 244.1 04/10/2014 RUSTY MARIO, ARIADNA F Ot 311 04/10/2014 RUSTY MARIO, ARIADNA F Ot 401.9 04/10/2014 RUSTY MARIO, ARIADNA F Ot 486 04/10/2014 RUSTY MARIO, ARIADNA F Ot 487.1 04/10/2014 RUSTY MARIO, ARIADNA F Ot 491.21 04/10/2014 RUSTY MARIO, ARIADNA F Ot 692.9 04/10/2014 RUSTY MARIO, ARIADNA F Ot 724.5 04/10/2014 RUSTY MARIO, ARIADNA F Ot 733.00 04/10/2014 RUSTY MARIO, ARIADNA F Ot V12.09 04/10/2014 RUSTY MARIO, ARIADNA F Ot V12.59 04/10/2014 RUSTY MARIO, ARIADNA F Ot V15.82 04/10/2014 RUSTY MARIO, ARIADNA F Ot 244.1 04/10/2014 RUSTY MARIO, ARIADNA F Ot 311 04/10/2014 RUSTY MARIO, ARIADNA F Ot 401.9 04/10/2014 RUSTY MARIO, ARIADNA F Ot 486 04/10/2014 RUSTY MARIO, ARIADNA F Ot 487.1 04/10/2014 RUSTY MARIO, ARIADNA F Ot 491.21 04/10/2014 RUSTY MARIO, ARIADNA F Ot 692.9 04/10/2014 RUSTY MARIO, ARIADNA F Ot 724.5 04/10/2014 RUSTY MARIO, ARIADNA F Ot 733.00 04/10/2014 RUSTY MARIO, ARIADNA F Ot V12.09 04/10/2014 RUSTY MARIO, ARIADNA F Ot V12.59 04/10/2014 RUSTY MARIO, ARIADNA F Ot V15.82 04/10/2014 RUSTY MARIO, ARIADNA F Ot 244.1 04/10/2014 RUSTY MARIO, ARIADNA F Ot 311 04/10/2014 RUSTY MAROI, ARIADNA F Ot 401.9 04/10/2014 RUSTY MARIO, ARIADNA F Ot 486 04/10/2014 RUSTY MARIO, ARIADNA F Ot 487.1 04/10/2014 RUSTY MARIO, ARIADNA F Ot 491.21 04/10/2014 RUSTY MARIO, ARIADNA F Ot 692.9 04/10/2014 RUSTY MARIO, ARIADNA F Ot 724.5 04/10/2014 RUSTY MARIO, ARIADNA F Ot 733.00 04/10/2014 RUSTY MARIO, ARIADNA F Ot V04.81 04/10/2014 RUSTY MARIO, ARIADNA F Ot V12.09 04/10/2014 RUSTY MARIO, ARIADNA [place] Ot V12.59 04/10/2014 RUSTY MARIO, ARIADNA [place] Ot V15.82 04/18/2014 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, GAB R 461.9 SINUSITIS ACUTE 04/18/2014 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, GAB R 786.2 COUGH 04/18/2014 FLORENTIN MARIO, EZEKIEL N 461.9 SINUSITIS ACUTE 04/18/2014 FLORENTIN MARIO, EZEKIEL N 786.2 COUGH 04/18/2014 ERICKSON 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, NOLAN D 461.9 SINUSITIS ACUTE 04/18/2014 ERICKSON 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, NOLAN D 786.2 COUGH 07/13/2014 MICHAEL MARIO, GRUPO-ORQUIDEA Ot 070.70 07/13/2014 MICHAEL MARIO, GRU[place] Ot 242.00 07/13/2014 MICHAEL MARIO, GRUPO-ORQUIDEA Ot 287.5 07/13/2014 MICHAEL MARIO, GRUPO-ORQUIDEA Ot 305.1 07/13/2014 MICHAEL MARIO, GRUPO-ORQUIDE[place] Ot 401.9 07/13/2014 SCOOTER MARIO, HANS [place] Ot 724.2 LUMBAGO 07/13/2014 SCOOTER MARIO, HANS Rodriguez Ot 724.3 SCIATICA 07/13/2014 MICHAEL MARIO, GRUPO-ORQUIDEA Ot 070.70 07/13/2014 MICHAEL MARIO, GRUPO-[place]QU[place] Ot 242.00 07/13/2014 MICHAEL MARIO, GRUPO-[place]QUIDE[place] Ot 287.5 07/13/2014 MICHAEL MARIO, GRUPO-ORQUIDEA Ot 305.1 07/13/2014 MICHAEL MARIO, GRUPO-ORQUIDE[place] Ot 401.9 08/10/2014 MICHAEL MARIO, LOMBARDO-ORQUIDEA Ot 070.70 08/10/2014 MICHAEL MARIO, LOMBARDO-ORQUIDEA Ot 242.00 08/10/2014 MICHAEL MARIO, GRUPO-[place]QUIDE[place] Ot 287.5 08/10/2014 MICHAEL MARIO, GRUPO-[place]QUIDE[place] Ot 305.1 08/10/2014 MICHAEL MARIO, GRUPO-[place]QU[place] Ot 401.9 08/13/2014 MICHAEL MARIO, GRUPO-ORQUIDE[place] Ot 070.70 08/13/2014 MICHAEL MARIO, GRUPO-ORQUIDEA Ot 242.00 08/13/2014 MICHAEL MARIO, GRUPO-ORQUIDE[place] Ot 287.5 08/13/2014 MICHAEL MARIO, GRUPO-ORQUIDE[place] Ot 305.1 08/13/2014 MICHAEL MARIO, GRUPO-[place]QU[place] Ot 401.9 08/13/2014 MICHAEL MARIO, LOMBARDO-ORQUIDEA Ot 070.70 08/13/2014 MICHAEL MARIO, LOMBARDO-ORQUIDEA Ot 242.00 08/13/2014 MICHAEL MARIO, LOMBARDO-ORQUIDEA Ot 287.5 08/13/2014 MICHAEL MARIO, LOMBARDO-ORQUIDEA Ot 305.1 08/13/2014 MICHAEL MARIO, CHEL Ot 401.9 08/14/2014 MICHAEL MARIO, CHEL Ot 070.70 08/14/2014 MICHAEL MARIO, LOMBARDO-ORQUIDEA Ot 242.00 08/14/2014 MICHAEL MARIO, LOMBARDO-ORQUIDEA Ot 287.5 08/14/2014 MICHAEL MARIO, CHEL Ot 305.1 08/14/2014 MICHAEL MARIO, CHEL Ot 401.9 09/11/2014 MICHAEL MARIO, CHEL Ot 070.70 UNSPECIFIED VIRAL HEPATITIS C WITHOUT HE 09/11/2014 MICHAEL MARIO, CHEL Ot 242.00 TOX DIF GOITER NO CRISIS 09/11/2014 MICHAEL MARIO, CHEL Ot 287.5 THROMBOCYTOPENIA NOS 09/11/2014 MICHAEL MARIO, CHEL Ot 305.1 TOBACCO USE DISORDER 09/11/2014 MICHAEL MARIO, CHEL Ot 401.9 HYPERTENSION NOS 09/12/2014 MICHAEL MARIO, CHEL Ot 070.70 09/12/2014 MICHAEL MARIO, GRUPO-[place]QUIDE[place] Ot 242.00 09/12/2014 MICHAEL MARIO, LOMBARDO-ORQUIDEA Ot 287.5 09/12/2014 MICHAEL MARIO, CHEL Ot 305.1 09/12/2014 MICHAEL MARIO, CHEL Ot 401.9 09/15/2014 SAÚL GUZMAN DO Ot 244.9 10/01/2014 MICHAEL MARIO, GRUPO-[place]QU[place] Ot 070.70 10/01/2014 MICHAEL MARIO, CHEL Ot 242.00 10/01/2014 MICHAEL MARIO, CHEL Ot 287.5 10/01/2014 MICHAEL MARIO, GRUPO-[place]QU[place] Ot 305.1 10/01/2014 MICHAEL MARIO, GRUPO-[place]QU[place] Ot 401.9 10/03/2014 Ot 611.71 10/03/2014 Ot 782.0 10/03/2014 Ot 784.0 10/03/2014 FLORENTIN MARIO, EZEKIEL [place] Ot 305.1 10/03/2014 FLORENTIN MARIO, EZEKIEL N Ot 783.21 10/03/2014 FLORENTIN MARIO, EZEKIEL N Ot 786.2 10/03/2014 FLORENTIN MARIO, EZEKIEL N Ot 793.11 10/03/2014 FLORENTIN MARIO, EZEKIEL N Ot 793.11 10/03/2014 MAYITO NAIK DO Ot 486 10/03/2014 COBURN CHRIST MADRID Ot V72.84 10/30/2014 Ot 610.1 10/30/2014 Ot 611.72 10/30/2014 Ot 611.8 10/30/2014 Ot V15.89 10/30/2014 Ot 244.9 10/30/2014 Ot 611.72 10/30/2014 Ot 724.2 10/30/2014 Ot 244.9 10/30/2014 Ot 733.90 10/30/2014 Ot 611.71 10/30/2014 Ot 782.0 10/30/2014 Ot 784.0 10/30/2014 Ot 611.71 10/30/2014 Ot 782.0 10/30/2014 Ot 784.0 10/30/2014 FLORENTIN MARIO, EZEKIEL [place] Ot 305.1 10/30/2014 FLORENTIN MARIO, EZEKIEL N Ot 783.21 10/30/2014 FLORENTIN MARIO, EZEKIEL N Ot 786.2 10/30/2014 FLORENTIN MARIO, EZEKIEL N Ot 793.11 10/30/2014 FLORENTIN MARIO, EZEKIEL N Ot 793.11 10/30/2014 MAYITO NAIK DO Ot 486 10/30/2014 [place] CHRIST MADRID Ot V72.84 10/30/2014 THOMAS MADRID SAÚL L Ot 244.9 10/30/2014 MICHAEL MARIO, CHEL Ot 070.70 10/30/2014 MICHAEL MARIO, CHEL Ot 242.00 10/30/2014 MICHAEL MARIO, CHEL Ot 287.5 10/30/2014 MICHAEL MARIO, GRUPOORQUIDEA Ot 305.1 10/30/2014 MICHAEL MARIO, CHEL Ot 401.9 10/30/2014 THOMAS MADRID, SAÚL L Ot 244.9 11/26/2014 THOMAS MADRID, SAÚL L Ot 244.9 11/26/2014 MICHAEL MARIO, CHEL Ot 070.70 11/26/2014 MICHAEL MARIO, LOMBARDO-ORQUIDEA Ot 242.00 11/26/2014 MICHAEL MARIO, LOMBARDO-ORQUIDEA Ot 287.5 11/26/2014 MICHAEL MARIO, LOMBARDO-ORQUIDEA Ot 305.1 11/26/2014 MICHAEL MARIO, LOMBARDO-ORQUIDEA Ot 401.9 12/26/2014 THOMAS MADRID, SAÚL L Ot 244.9 12/26/2014 MICHAEL MARIO, LOMBARDO-ORQUIDEA Ot 070.70 12/26/2014 MICHAEL MARIO, LOMBARDO-ORQUIDEA Ot 242.00 12/26/2014 MICHAEL MARIO, LOMBARDO-ORQUIDEA Ot 287.5 12/26/2014 MICHAEL MARIO, LOMBARDO-ORQUIDEA Ot 305.1 12/26/2014 MICHAEL MARIO, LOMBARDO-ORQUIDEA Ot 401.9 12/27/2014 THOMAS MADRID, SAÚL L Ot 244.9 12/27/2014 MICHAEL MARIO, CHEL Ot 070.70 12/27/2014 MICHAEL MARIO, CHEL Ot 242.00 12/27/2014 MICHAEL MARIO, CHEL Ot 287.5 12/27/2014 MICHAEL MARIO, LOMBARDO-ORQUIDEA Ot 305.1 12/27/2014 MICHAEL MARIO, CHEL Ot 401.9 01/23/2015 ANNA CRESPO 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 Ot M25.572 PAIN IN LEFT ANKLE AND JOINTS OF LEFT FO 01/23/2015 ANNA CRESPO 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 Ot M72.2 PLANTAR FASCIAL FIBROMATOSIS 02/14/2015 IND[place] DEMPSEY 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 Ot Z12.31 02/27/2015 [place] DEMPSEY 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 Ot Z12.31 04/24/2015 [place] DEMPSEY 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 Ot Z12.31 07/10/2015 THOMAS MADRID, SAÚL L Ot 244.9 07/10/2015 MICHAEL MARIO, CHEL Ot 070.70 07/10/2015 MICHAEL MARIO, CHEL Ot 242.00 07/10/2015 MICHAEL MARIO, CHEL Ot 287.5 07/10/2015 MICHAEL MARIO, CHEL Ot 305.1 07/10/2015 MICHAEL MARIO, GRUPO-ORQUIDE[place] Ot 401.9 07/10/2015 THOMAS MADRID, SAÚL L Ot 244.9 07/10/2015 CHEL RODRIGUEZ MD Ot 070.70 07/10/2015 CHEL RODRIGUEZ MD Ot 242.00 07/10/2015 CHEL RODRIGUEZ MD Ot 287.5 07/10/2015 CHEL RODRIGUEZ MD Ot 305.1 07/10/2015 CHEL RODRIGUEZ MD Ot 401.9 08/30/2015 GUZMAN DO, SAÚL L Ot 244.9 HYPOTHYROIDISM NOS 09/10/2015 GUZMAN DO, SAÚL L Ot 244.9 HYPOTHYROIDISM NOS 11/05/2015 EZEKIEL LERMA MD Ot R10.11 RIGHT UPPER QUADRANT PAIN 11/05/2015 EZEKIEL LERMA MD Ot R10.11 RIGHT UPPER QUADRANT PAIN 12/13/2015 NOLAN ALMENDAREZ Ot M54.41 LUMBAGO WITH SCIATICA, RIGHT SIDE 12/13/2015 NOLAN ALMENDAREZ Ot M70.61 TROCHANTERIC BURSITIS, RIGHT HIP 12/17/2015 INDIA DEMPSEY APRN Ot Z12.31 ENCNTR SCREEN MAMMOGRAM FOR MALIGNANT NE 12/17/2015 [place] DEMPSEY 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 Ot M81.0 AGE-RELATED OSTEOPOROSIS W/O CURRENT PAT 12/17/2015 [place] DEMPSEY APRN Ot Z13.820 ENCOUNTER FOR SCREENING FOR OSTEOPOROSIS 12/17/2015 [place] DEMPSEY 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 Ot Z87.81 PERSONAL HISTORY OF (HEALED) TRAUMATIC F 12/17/2015 EZEKIEL LERMA MD Ot M25.551 PAIN IN RIGHT HIP 12/17/2015 EZEKIEL LERMA MD Ot M25.552 PAIN IN LEFT HIP 12/17/2015 EZEKIEL LERMA MD Ot M54.40 LUMBAGO WITH SCIATICA, UNSPECIFIED SIDE 12/17/2015 EZEKIEL LERMA MD Ot R10.11 RIGHT UPPER QUADRANT PAIN 12/17/2015 NOLAN ALMENDAREZ Ot M54.41 LUMBAGO WITH SCIATICA, RIGHT SIDE 12/17/2015 NOLAN ALMENDAREZ Ot M70.61 TROCHANTERIC BURSITIS, RIGHT HIP 12/20/2015 CHRIST COBURN DO Ot K21.9 GASTRO-ESOPHAGEAL REFLUX DISEASE WITHOUT 12/20/2015 CHRIST COBURN DO Ot Z01.818 ENCOUNTER FOR OTHER PREPROCEDURAL EXAMIN 12/24/2015 CHRIST COBURN DO Ot K21.9 GASTRO-ESOPHAGEAL REFLUX DISEASE WITHOUT 12/24/2015 CHRIST COBURN DO Ot Z01.818 ENCOUNTER FOR OTHER PREPROCEDURAL EXAMIN 12/24/2015 MICHAEL MARIO, CHEL Ot 070.70 UNSPECIFIED VIRAL HEPATITIS C WITHOUT HE 12/24/2015 MICHAEL MARIO, CHEL Ot 242.00 TOX DIF GOITER NO CRISIS 12/24/2015 MICHAEL MARIO, CHEL Ot 287.5 THROMBOCYTOPENIA NOS 12/24/2015 MICHAEL MARIO, CHEL Ot 305.1 TOBACCO USE DISORDER 12/24/2015 MICHAEL MARIO, CHEL Ot 401.9 HYPERTENSION NOS 12/24/2015 CHRIST COBURN DO Ot K21.9 GASTRO-ESOPHAGEAL REFLUX DISEASE WITHOUT 12/24/2015 CHRIST COBURN DO Ot K29.70 GASTRITIS, UNSPECIFIED, WITHOUT BLEEDING 12/25/2015 CHRIST COBURN DO Ot K21.9 GASTRO-ESOPHAGEAL REFLUX DISEASE WITHOUT 12/25/2015 CHRIST COBURN DO Ot K29.70 GASTRITIS, UNSPECIFIED, WITHOUT BLEEDING 12/30/2015 NOLAN ALMENDAREZ Ot M54.41 LUMBAGO WITH SCIATICA, RIGHT SIDE 12/30/2015 NOLAN ALMENDAREZ Ot M70.61 TROCHANTERIC BURSITIS, RIGHT HIP 01/01/2016 CHRIST COBURN DO Ot K21.9 GASTRO-ESOPHAGEAL REFLUX DISEASE WITHOUT 01/01/2016 CHRIST COBURN DO Ot K29.70 GASTRITIS, UNSPECIFIED, WITHOUT BLEEDING 01/06/2016 ANNA CRESPO 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 Ot J44.9 CHRONIC OBSTRUCTIVE PULMONARY DISEASE, U 01/06/2016 ANNA CRESPO 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 Ot K59.00 CONSTIPATION, UNSPECIFIED 01/06/2016 ANNA CRESPO 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 Ot R10.30 LOWER ABDOMINAL PAIN, UNSPECIFIED 01/06/2016 ANNA CRESPO 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 Ot Z87.891 PERSONAL HISTORY OF NICOTINE DEPENDENCE 01/06/2016 INDIA DEMPSEY APRN Ot Z12.31 ENCNTR SCREEN MAMMOGRAM FOR MALIGNANT NE 01/06/2016 [place], [place] A 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 Ot M81.0 AGE-RELATED OSTEOPOROSIS W/O CURRENT PAT 01/06/2016 INDIA DEMPSEY APRN Ot Z13.820 ENCOUNTER FOR SCREENING FOR OSTEOPOROSIS 01/06/2016 INDIA DEMPSEY APRN Ot Z87.81 PERSONAL HISTORY OF (HEALED) TRAUMATIC F 01/06/2016 FLORENTIN MARIO, EZEKIEL Ochoa Ot M25.551 PAIN IN RIGHT HIP 01/06/2016 FLORENTIN MARIO, EZEKIEL Ocho[place] Ot M25.552 PAIN IN LEFT HIP 01/06/2016 FLORENT[place] MARIO, EZEKIEL [place]cho[place] Ot M54.40 LUMBAGO WITH SCIATICA, UNSPECIFIED SIDE 01/06/2016 FLORENTIN MARIO, EZEKIEL Ochoa Ot R10.11 RIGHT UPPER QUADRANT PAIN 01/06/2016 CHRIST COBURN DO Ot K21.9 GASTRO-ESOPHAGEAL REFLUX DISEASE WITHOUT 01/06/2016 CHRIST COBURN DO Ot Z01.818 ENCOUNTER FOR OTHER PREPROCEDURAL EXAMIN 01/08/2016 ANNA CRESPO APRN Ot J44.9 CHRONIC OBSTRUCTIVE PULMONARY DISEASE, U 01/08/2016 ANNA CRESPO APRN Ot K59.00 CONSTIPATION, UNSPECIFIED 01/08/2016 ANNA CRESPO APRN Ot R10.30 LOWER ABDOMINAL PAIN, UNSPECIFIED 01/08/2016 ANNA CRESPO APRN Ot Z87.891 PERSONAL HISTORY OF NICOTINE DEPENDENCE 01/10/2016 ANNA CRESPO APRN Ot J44.9 CHRONIC OBSTRUCTIVE PULMONARY DISEASE, U 01/10/2016 ANNA CRESPO APRN Ot K59.00 CONSTIPATION, UNSPECIFIED 01/10/2016 ANNA CRESPO APRN Ot R10.30 LOWER ABDOMINAL PAIN, UNSPECIFIED 01/10/2016 ANNA CRESPO APRN Ot Z87.891 PERSONAL HISTORY OF NICOTINE DEPENDENCE 02/06/2016 IND[place] DEMPSEY APRN Ot Z12.31 ENCNTR SCREEN MAMMOGRAM FOR MALIGNANT NE 02/06/2016 [place] DEMPSEY APRN Ot M81.0 AGE-RELATED OSTEOPOROSIS W/O CURRENT PAT 02/06/2016 [place] DEMPSEY APRN Ot Z13.820 ENCOUNTER FOR SCREENING FOR OSTEOPOROSIS 02/06/2016 [place] DEMPSEY APRN Ot Z87.81 PERSONAL HISTORY OF (HEALED) TRAUMATIC F 02/06/2016 EZEKIEL LERMA MD Ot M25.551 PAIN IN RIGHT HIP 02/06/2016 EZEKIEL LERMA MD Ot M25.552 PAIN IN LEFT HIP 02/06/2016 EZEKIEL LERMA MD Ot M54.40 LUMBAGO WITH SCIATICA, UNSPECIFIED SIDE 02/06/2016 EZEKIEL LERMA MD Ot R10.11 RIGHT UPPER QUADRANT PAIN 02/06/2016 CHRIST COBURN DO Ot K21.9 GASTRO-ESOPHAGEAL REFLUX DISEASE WITHOUT 02/06/2016 CHRIST COBURN DO Ot Z01.818 ENCOUNTER FOR OTHER PREPROCEDURAL EXAMIN 02/07/2016 EZEKIEL LERMA MD, Ot M54.31 SCIATICA, RIGHT SIDE 02/15/2016 RADHA GONZALEZ Ot R10.13 EPIGASTRIC PAIN 02/15/2016 RADHA GONZALEZ Ot Z53.21 PROC/TRTMT NOT CRD OUT D/T PT LV BEF SEE 02/19/2016 EZEKIEL LERMA MD, Ot M54.31 SCIATICA, RIGHT SIDE 07/13/2016 LEVY DOSS MD Ot M51.16 INTERVERTEBRAL DISC DISORDERS W RADICULO 07/13/2016 LEVY DOSS MD Ot Z79.899 OTHER [facility] (CURRENT) DRUG THERAPY 07/17/2016 LEVY DOSS MD Ot M51.16 INTERVERTEBRAL DISC DISORDERS W RADICULO 07/17/2016 LEVY DOSS MD, Ot 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 08/06/2016 IND[place] DEMPSEY APRN Ot Z12.31 ENCNTR SCREEN MAMMOGRAM FOR MALIGNANT NE 08/06/2016 [place] DEMPSEY APRN Ot M81.0 AGE-RELATED OSTEOPOROSIS W/O CURRENT PAT 08/06/2016 INDIA DEMPSEY APRN Ot Z13.820 ENCOUNTER FOR SCREENING FOR OSTEOPOROSIS 08/06/2016 [place] DEMPSEY APRN Ot Z87.81 PERSONAL HISTORY OF (HEALED) TRAUMATIC F 08/06/2016 EZEKIEL LERMA MD Ot M25.551 PAIN IN RIGHT HIP 08/06/2016 EZEKIEL LERMA MD Ot M25.552 PAIN IN LEFT HIP 08/06/2016 EZEKIEL LERMA MD Ot M54.40 LUMBAGO WITH SCIATICA, UNSPECIFIED SIDE 08/06/2016 EZEKIEL LERMA MD Ot R10.11 RIGHT UPPER QUADRANT PAIN 08/06/2016 CHRIST COBURN DO Ot K21.9 GASTRO-ESOPHAGEAL REFLUX DISEASE WITHOUT 08/06/2016 CHRIST COBURN DO Ot Z01.818 ENCOUNTER FOR OTHER PREPROCEDURAL EXAMIN 08/06/2016 EZEKIEL LERMA MD Ot M54.31 SCIATICA, RIGHT SIDE 08/07/2016 MILADY MARIO FACC, ALI FACP CCDS Ot E89.0 POSTPROCEDURAL HYPOTHYROIDISM 08/07/2016 MILADY MARIO FACC, ALI FACP CCDS Ot R07.89 OTHER CHEST PAIN 08/07/2016 MILADY MARIO FACC, ALI FACP CCDS Ot 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 08/07/2016 MILADY MARIO FACC, ALI FACP CCDS Ot Z87.891 PERSONAL HISTORY OF NICOTINE DEPENDENCE 08/13/2016 MILADY MARIO FACC, ALI FACP CCDS Ot E89.0 POSTPROCEDURAL HYPOTHYROIDISM 08/13/2016 MILADY MARIO FACC, ALI FACP CCDS Ot R07.89 OTHER CHEST PAIN 08/13/2016 MILADY MARIO FACC, ALI FACP CCDS Ot Z79.899 OTHER FPC (CURRENT) DRUG THERAPY 08/13/2016 MILADY AMRIO FACC, ALI FACP CCDS Ot Z87.891 PERSONAL HISTORY OF NICOTINE DEPENDENCE 08/15/2016 MILADY MARIO FACC, ALI FACP CCDS Ot E89.0 POSTPROCEDURAL HYPOTHYROIDISM 08/15/2016 MILADY MARIO FACC, ALI FACP CCDS Ot R07.89 OTHER CHEST PAIN 08/15/2016 MILADY MARIO FACC, ALI FACP CCDS Ot 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 08/15/2016 MILADY MARIO FACC, ALI FACP CCDS Ot Z87.891 PERSONAL HISTORY OF NICOTINE DEPENDENCE 08/18/2016 MILADY MARIO FACC, ALI FACP CCDS Ot E89.0 POSTPROCEDURAL HYPOTHYROIDISM 08/18/2016 MILADY MARIO FACC, ALI FACP CCDS Ot R07.89 OTHER CHEST PAIN 08/18/2016 MILADY VIEYRA, ALI [facility] CCDS Ot Z79.899 OTHER FPC (CURRENT) DRUG THERAPY 08/18/2016 MILADY MARIO FAC, ALI [facility] CCDS Ot Z87.891 PERSONAL HISTORY OF NICOTINE DEPENDENCE 09/07/2016 LEVY DOSS MD Ot M51.16 INTERVERTEBRAL DISC DISORDERS W RADICULO 09/07/2016 LEVY DOSS MD Ot Z79.899 OTHER FPC (CURRENT) DRUG THERAPY 12/09/2016 ARIADNA OJEDA MD Ot R51 HEADACHE 12/09/2016 ARIADNA OJEDA MD Ot Z86.79 PERSONAL HISTORY OF OTHER DISEASES OF TH 12/09/2016 ARIADNA OJEDA MD Ot Z98.890 OTHER SPECIFIED POSTPROCEDURAL STATES 01/16/2017 CHEL RODRIGUEZ MD Ot 070.70 UNSPECIFIED VIRAL HEPATITIS C WITHOUT HE 01/16/2017 CHEL RODRIGUEZ MD Ot 242.00 TOX DIF GOITER NO CRISIS 01/16/2017 CHEL RODRIGUEZ MD Ot 287.5 THROMBOCYTOPENIA NOS 01/16/2017 CHEL RODRIGUEZ MD Ot 305.1 TOBACCO USE DISORDER 01/16/2017 CHEL RODRIGUEZ MD Ot 401.9 HYPERTENSION NOS 01/17/2017 EZEKIEL LERMA MD Ot E04.9 NONTOXIC GOITER, UNSPECIFIED 01/17/2017 EZEKIEL LERMA MD Ot F33.9 MAJOR DEPRESSIVE DISORDER, RECURRENT, UN 01/17/2017 EZEKIEL LERMA MD Ot G47.00 INSOMNIA, UNSPECIFIED 01/17/2017 EZEKIEL LERMA MD Ot G62.9 POLYNEUROPATHY, UNSPECIFIED 01/17/2017 EZEKIEL LERMA MD Ot G89.29 OTHER CHRONIC PAIN 01/17/2017 EZEKIEL LERMA MD Ot I10 ESSENTIAL (PRIMARY) HYPERTENSION 01/17/2017 EZEKIEL LERMA MD Ot I48.91 UNSPECIFIED ATRIAL FIBRILLATION 01/17/2017 EZEKIEL LERMA MD Ot J44.9 CHRONIC OBSTRUCTIVE PULMONARY DISEASE, U 01/17/2017 EZEKIEL LERMA MD Ot L50.0 ALLERGIC URTICARIA 01/17/2017 EZEKIEL LERMA MD Ot M85.89 OT DISRD OF BONE DENSITY AND STRUCTURE, 01/17/2017 EZEKIEL LERMA MD Ot T46.1X5A ADVERSE EFFECT OF CALCIUM-CHANNEL BLOCKE 01/17/2017 EZEKIEL LERMA MD Ot Z79.891 BENCH WORKER (CURRENT) USE OF OPIATE ANALGE 01/17/2017 EZEKIEL LERMA MD Ot Z86.79 PERSONAL HISTORY OF OTHER DISEASES OF TH 01/17/2017 EZEKIEL LERMA MD Ot Z87.891 PERSONAL HISTORY OF NICOTINE DEPENDENCE 01/17/2017 EZEKIEL LERMA MD Ot E04.9 NONTOXIC GOITER, UNSPECIFIED 01/17/2017 EZEKIEL LERMA MD Ot F33.9 MAJOR DEPRESSIVE DISORDER, RECURRENT, UN 01/17/2017 EZEKIEL LERMA MD Ot G47.00 INSOMNIA, UNSPECIFIED 01/17/2017 EZEKIEL LERMA MD Ot G62.9 POLYNEUROPATHY, UNSPECIFIED 01/17/2017 EZEKIEL LERMA MD Ot G89.29 OTHER CHRONIC PAIN 01/17/2017 EZEKIEL LERMA MD Ot I10 ESSENTIAL (PRIMARY) HYPERTENSION 01/17/2017 EZEKIEL LERMA MD Ot I48.91 UNSPECIFIED ATRIAL FIBRILLATION 01/17/2017 EZEKIEL LERMA MD Ot J44.9 CHRONIC OBSTRUCTIVE PULMONARY DISEASE, U 01/17/2017 EZEKIEL LERMA MD Ot L50.0 ALLERGIC URTICARIA 01/17/2017 EZEKIEL LERMA MD Ot M85.89 OTH DISRD OF BONE DENSITY AND STRUCTURE, 01/17/2017 EZEKIEL LERMA MD Ot T46.1X5A ADVERSE EFFECT OF CALCIUM-CHANNEL BLOCKE 01/17/2017 EZEKIEL LERMA MD Ot Z79.891 BENCH WORKER (CURRENT) USE OF OPIATE ANALGE 01/17/2017 EZEKIEL LERMA MD Ot Z86.79 PERSONAL HISTORY OF OTHER DISEASES OF TH 01/17/2017 EZEKIEL LERMA MD Ot Z87.891 PERSONAL HISTORY OF NICOTINE DEPENDENCE 01/18/2017 EZEKIEL LERMA MD Ot E04.9 NONTOXIC GOITER, UNSPECIFIED 01/18/2017 EZEKIEL LERMA MD Ot F33.9 MAJOR DEPRESSIVE DISORDER, RECURRENT, UN 01/18/2017 EZEKIEL LERMA MD Ot G47.00 INSOMNIA, UNSPECIFIED 01/18/2017 EZEKIEL LERMA MD Ot G62.9 POLYNEUROPATHY, UNSPECIFIED 01/18/2017 EZEKIEL LERMA MD Ot G89.29 OTHER CHRONIC PAIN 01/18/2017 EZEKIEL LERMA MD Ot I10 ESSENTIAL (PRIMARY) HYPERTENSION 01/18/2017 EZEKIEL LERMA MD Ot I48.91 UNSPECIFIED ATRIAL FIBRILLATION 01/18/2017 EZEKIEL LERMA MD Ot J44.9 CHRONIC OBSTRUCTIVE PULMONARY DISEASE, U 01/18/2017 EZEKIEL LERMA MD Ot L50.0 ALLERGIC URTICARIA 01/18/2017 EZEKIEL LERMA MD Ot M85.89 OTH DISRD OF BONE DENSITY AND STRUCTURE, 01/18/2017 EZEKIEL LERMA MD Ot T46.1X5A ADVERSE EFFECT OF CALCIUM-CHANNEL BLOCKE 01/18/2017 EZEKIEL LERMA MD Ot Z79.891 FPC (CURRENT) USE OF OPIATE ANALGE 01/18/2017 EZEKIEL LERMA MD Ot Z86.79 PERSONAL HISTORY OF OTHER DISEASES OF TH 01/18/2017 EZEKIEL LERMA MD, Ot Z87.891 PERSONAL HISTORY OF NICOTINE DEPENDENCE 02/11/2017 BAIMA, TRES L OFFICE SERVICES ASSISTANT Ot E03.8 OTHER SPECIFIED HYPOTHYROIDISM 02/11/2017 BAIMA, TRES L OFFICE SERVICES ASSISTANT Ot I48.0 PAROXYSMAL ATRIAL FIBRILLATION 02/11/2017 BAIMA, TRES L OFFICE SERVICES ASSISTANT Ot R07.89 OTHER CHEST PAIN 02/17/2017 BAIMA, TRES L OFFICE SERVICES ASSISTANT Ot E03.8 OTHER SPECIFIED HYPOTHYROIDISM 02/17/2017 BAIMA, TRES L OFFICE SERVICES ASSISTANT Ot I48.0 PAROXYSMAL ATRIAL FIBRILLATION 02/17/2017 BAIMA, TRES L OFFICE SERVICES ASSISTANT Ot R07.89 OTHER CHEST PAIN 02/22/2017 BAIMA, TRES L OFFICE SERVICES ASSISTANT Ot E03.8 OTHER SPECIFIED HYPOTHYROIDISM 02/22/2017 BAIMA, TRES L OFFICE SERVICES ASSISTANT Ot I48.0 PAROXYSMAL ATRIAL FIBRILLATION 02/22/2017 BAIMA, TRES L OFFICE SERVICES ASSISTANT Ot R07.89 OTHER CHEST PAIN 02/26/2017 SAÚL GUZMAN DO L Ot 244.9 HYPOTHYROIDISM NOS 02/26/2017 XUCHEL Ochoa MD Ot 070.70 UNSPECIFIED VIRAL HEPATITIS C WITHOUT HE 02/26/2017 CHEL RODRIGUEZ MD Ot 242.00 TOX DIF GOITER NO CRISIS 02/26/2017 CHEL RODRIGUEZ MD Ot 287.5 THROMBOCYTOPENIA NOS 02/26/2017 CHEL RODRIGUEZ MD Ot 305.1 TOBACCO USE DISORDER 02/26/2017 CHEL RODRIGUEZ MD Ot 401.9 HYPERTENSION NOS 03/10/2017 INDIA DEMPSEY APRN Ot Z12.31 ENCNTR SCREEN MAMMOGRAM FOR MALIGNANT NE 03/10/2017 INDIA DEMPSEY APRN Ot M81.0 AGE-RELATED OSTEOPOROSIS W/O CURRENT PAT 03/10/2017 INDIA DEMPSEY APRN Ot Z13.820 ENCOUNTER FOR SCREENING FOR OSTEOPOROSIS 03/10/2017 INDIA DEMPSEY APRN Ot Z87.81 PERSONAL HISTORY OF (HEALED) TRAUMATIC F 03/10/2017 EZEKIEL LERMA MD Ot M25.551 PAIN IN RIGHT HIP 03/10/2017 EZEKIEL LERMA MD Ot M25.552 PAIN IN LEFT HIP 03/10/2017 EZEKIEL LERMA MD Ot M54.40 LUMBAGO WITH SCIATICA, UNSPECIFIED SIDE 03/10/2017 EZEKIEL LERMA MD Ot R10.11 RIGHT UPPER QUADRANT PAIN 03/10/2017 CHRIST COBURN DO Ot K21.9 GASTRO-ESOPHAGEAL REFLUX DISEASE WITHOUT 03/10/2017 CHRIST COBURN DO Ot Z01.818 ENCOUNTER FOR OTHER PREPROCEDURAL EXAMIN 03/10/2017 EZEKIEL LERMA MD Ot M54.31 SCIATICA, RIGHT SIDE 03/10/2017 ARIADNA OJEDA MD Ot R51 HEADACHE 03/10/2017 ARIADNA OJEDA MD Ot Z86.79 PERSONAL HISTORY OF OTHER DISEASES OF TH 03/10/2017 ARIADNA OJEDA MD Ot Z98.890 OTHER SPECIFIED POSTPROCEDURAL STATES 03/10/2017 TRES MANZANO OFFICE SERVICES ASSISTANT Ot E03.8 OTHER SPECIFIED HYPOTHYROIDISM 03/10/2017 TRES MANZANO OFFICE SERVICES ASSISTANT Ot I48.0 PAROXYSMAL ATRIAL FIBRILLATION 03/10/2017 TRES MANZANO OFFICE SERVICES ASSISTANT Ot R07.89 OTHER CHEST PAIN 03/10/2017 TRES MANZANO OFFICE SERVICES ASSISTANT Ot E03.8 OTHER SPECIFIED HYPOTHYROIDISM 03/10/2017 BAITRES TODD L OFFICE SERVICES ASSISTANT Ot I48.0 PAROXYSMAL ATRIAL FIBRILLATION 03/10/2017 BAIMATRSE OFFICE SERVICES ASSISTANT Ot R07.89 OTHER CHEST PAIN 03/15/2017 BAITRES TODD OFFICE SERVICES ASSISTANT Ot E03.8 OTHER SPECIFIED HYPOTHYROIDISM 03/15/2017 BAITRES TODD OFFICE SERVICES ASSISTANT Ot I48.0 PAROXYSMAL ATRIAL FIBRILLATION 03/15/2017 BAIMATRES OFFICE SERVICES ASSISTANT Ot R07.89 OTHER CHEST PAIN 03/19/2017 EZEKIEL LERMA MD Ot M81.0 AGE-RELATED OSTEOPOROSIS W/O CURRENT PAT 04/07/2017 EZEKIEL LERMA MD, Ot M81.0 AGE-RELATED OSTEOPOROSIS W/O CURRENT PAT 06/18/2017 MARYANNE GUZMAN DOISON Bc Ot 244.9 HYPOTHYROIDISM NOS 06/18/2017 CHEL RODRIGUEZ MD Ot 070.70 UNSPECIFIED VIRAL HEPATITIS C WITHOUT HE 06/18/2017 CHEL RODRIGUEZ MD Ot 242.00 TOX DIF GOITER NO CRISIS 06/18/2017 CHEL RODRIGUEZ MD Ot 287.5 THROMBOCYTOPENIA NOS 06/18/2017 CHEL RODRIGUEZ MD Ot 305.1 TOBACCO USE DISORDER 06/18/2017 CHEL RODRIGUEZ MD Ot 401.9 HYPERTENSION NOS 07/28/2017 INDIA DEMPSEY APRN Ot Z12.31 ENCNTR SCREEN MAMMOGRAM FOR MALIGNANT NE 07/28/2017 INDIA DEMPSEY APRN Ot M81.0 AGE-RELATED OSTEOPOROSIS W/O CURRENT PAT 07/28/2017 INDIA DEMPSEY APRN Ot Z13.820 ENCOUNTER FOR SCREENING FOR OSTEOPOROSIS 07/28/2017 INDIA DEMPSEY APRN Ot Z87.81 PERSONAL HISTORY OF (HEALED) TRAUMATIC F 07/28/2017 EZEKIEL LERMA MD Ot M25.551 PAIN IN RIGHT HIP 07/28/2017 EZEKIEL LERMA MD Ot M25.552 PAIN IN LEFT HIP 07/28/2017 EZEKIEL LERMA MD Ot M54.40 LUMBAGO WITH SCIATICA, UNSPECIFIED SIDE 07/28/2017 EZEKIEL LERMA MD Ot R10.11 RIGHT UPPER QUADRANT PAIN 07/28/2017 CHRIST COBURN DO Ot K21.9 GASTRO-ESOPHAGEAL REFLUX DISEASE WITHOUT 07/28/2017 CHRIST COBURN DO Ot Z01.818 ENCOUNTER FOR OTHER PREPROCEDURAL EXAMIN 07/28/2017 EZEKIEL LERMA MD Ot M54.31 SCIATICA, RIGHT SIDE 07/28/2017 ARIADNA OJEDA MD Ot R51 HEADACHE 07/28/2017 ARIADNA OJEDA MD Ot Z86.79 PERSONAL HISTORY OF OTHER DISEASES OF TH 07/28/2017 ARIADNA OJEDA MD Ot Z98.890 OTHER SPECIFIED POSTPROCEDURAL STATES 07/28/2017 BAIMA, TRES L OFFICE SERVICES ASSISTANT Ot E03.8 OTHER SPECIFIED HYPOTHYROIDISM 07/28/2017 BAIMA, TRES L OFFICE SERVICES ASSISTANT Ot I48.0 PAROXYSMAL ATRIAL FIBRILLATION 07/28/2017 BAIMA, TRES L OFFICE SERVICES ASSISTANT Ot R07.89 OTHER CHEST PAIN 07/28/2017 BAIMA, TRES L OFFICE SERVICES ASSISTANT Ot E03.8 OTHER SPECIFIED HYPOTHYROIDISM 07/28/2017 BAIMA, TRES L OFFICE SERVICES ASSISTANT Ot I48.0 PAROXYSMAL ATRIAL FIBRILLATION 07/28/2017 BAIMA, TRES L OFFICE SERVICES ASSISTANT Ot R07.89 OTHER CHEST PAIN 07/28/2017 EZEKIEL LERMA MD Ot M81.0 AGE-RELATED OSTEOPOROSIS W/O CURRENT PAT 07/29/2017 INDIA DEMPSEY 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 Ot Z12.31 ENCNTR SCREEN MAMMOGRAM FOR MALIGNANT NE 07/29/2017 INDIA DEMPSEY APRN Ot M81.0 AGE-RELATED OSTEOPOROSIS W/O CURRENT PAT 07/29/2017 INDIA DEMPSEY 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 Ot Z13.820 ENCOUNTER FOR SCREENING FOR OSTEOPOROSIS 07/29/2017 INDIA DEMPSEY 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 Ot Z87.81 PERSONAL HISTORY OF (HEALED) TRAUMATIC F 07/29/2017 EZEKIEL LERMA MD Ot M25.551 PAIN IN RIGHT HIP 07/29/2017 EZEKIEL LERMA MD Ot M25.552 PAIN IN LEFT HIP 07/29/2017 EZEKIEL LERMA MD Ot M54.40 LUMBAGO WITH SCIATICA, UNSPECIFIED SIDE 07/29/2017 EZEKIEL LERMA MD Ot R10.11 RIGHT UPPER QUADRANT PAIN 07/29/2017 CHRIST COBURN DO Ot K21.9 GASTRO-ESOPHAGEAL REFLUX DISEASE WITHOUT 07/29/2017 CHRIST COBURN DO Ot Z01.818 ENCOUNTER FOR OTHER PREPROCEDURAL EXAMIN 07/29/2017 EZEKIEL LERMA MD Ot M54.31 SCIATICA, RIGHT SIDE 07/29/2017 ARIADNA OJEDA MD Ot R51 HEADACHE 07/29/2017 ARIADNA OJEDA MD Ot Z86.79 PERSONAL HISTORY OF OTHER DISEASES OF TH 07/29/2017 ARIADNA OJEDA MD Ot Z98.890 OTHER SPECIFIED POSTPROCEDURAL STATES 07/29/2017 BAIMA, TRES L OFFICE SERVICES ASSISTANT Ot E03.8 OTHER SPECIFIED HYPOTHYROIDISM 07/29/2017 BAIMA, TRES L OFFICE SERVICES ASSISTANT Ot I48.0 PAROXYSMAL ATRIAL FIBRILLATION 07/29/2017 BAIMA, TRES L OFFICE SERVICES ASSISTANT Ot R07.89 OTHER CHEST PAIN 07/29/2017 BAIMA, TRES L OFFICE SERVICES ASSISTANT Ot E03.8 OTHER SPECIFIED HYPOTHYROIDISM 07/29/2017 BAIMA, TRES L OFFICE SERVICES ASSISTANT Ot I48.0 PAROXYSMAL ATRIAL FIBRILLATION 07/29/2017 BAIMA, TRES L OFFICE SERVICES ASSISTANT Ot R07.89 OTHER CHEST PAIN 07/29/2017 EZEKIEL LERMA MD Ot M81.0 AGE-RELATED OSTEOPOROSIS W/O CURRENT PAT 08/02/2017 INDIA DEMPSEY 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 Ot Z12.31 ENCNTR SCREEN MAMMOGRAM FOR MALIGNANT NE 08/02/2017 INDIA DEMPSEY 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 Ot M81.0 AGE-RELATED OSTEOPOROSIS W/O CURRENT PAT 08/02/2017 INDIA DEMPSEY 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 Ot Z13.820 ENCOUNTER FOR SCREENING FOR OSTEOPOROSIS 08/02/2017 INDIA DEMPSEY 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 Ot Z87.81 PERSONAL HISTORY OF (HEALED) TRAUMATIC F 08/02/2017 EZEKIEL LERMA MD Ot M25.551 PAIN IN RIGHT HIP 08/02/2017 EZEKIEL LERMA MD Ot M25.552 PAIN IN LEFT HIP 08/02/2017 EZEKIEL LERMA MD Ot M54.40 LUMBAGO WITH SCIATICA, UNSPECIFIED SIDE 08/02/2017 EZEKIEL LERMA MD Ot R10.11 RIGHT UPPER QUADRANT PAIN 08/02/2017 CHRIST COBURN DO Ot K21.9 GASTRO-ESOPHAGEAL REFLUX DISEASE WITHOUT 08/02/2017 CHRIST COBURN DO Ot Z01.818 ENCOUNTER FOR OTHER PREPROCEDURAL EXAMIN 08/02/2017 EZEKIEL LERMA MD Ot M54.31 SCIATICA, RIGHT SIDE 08/02/2017 ARIADNA OJEDA MD Ot R51 HEADACHE 08/02/2017 ARIADNA OJEDA MD Ot Z86.79 PERSONAL HISTORY OF OTHER DISEASES OF TH 08/02/2017 ARIADNA OJEDA MD Ot Z98.890 OTHER SPECIFIED POSTPROCEDURAL STATES 08/02/2017 TRES MANZANO L OFFICE SERVICES ASSISTANT Ot E03.8 OTHER SPECIFIED HYPOTHYROIDISM 08/02/2017 LUKASZ MANZANOHER L OFFICE SERVICES ASSISTANT Ot I48.0 PAROXYSMAL ATRIAL FIBRILLATION 08/02/2017 LUKASZ MANZANOHER L OFFICE SERVICES ASSISTANT Ot R07.89 OTHER CHEST PAIN 08/02/2017 TRES MANZANO L OFFICE SERVICES ASSISTANT Ot E03.8 OTHER SPECIFIED HYPOTHYROIDISM 08/02/2017 LUKASZ MANZANOHER L OFFICE SERVICES ASSISTANT Ot I48.0 PAROXYSMAL ATRIAL FIBRILLATION 08/02/2017 JOSE JUAN TRES L OFFICE SERVICES ASSISTANT Ot R07.89 OTHER CHEST PAIN 08/02/2017 EZEKIEL LERMA MD Ot M81.0 AGE-RELATED OSTEOPOROSIS W/O CURRENT PAT 08/04/2017 EZEKIEL LERMA MD Ot Z12.31 ENCNTR SCREEN MAMMOGRAM FOR MALIGNANT NE 08/05/2017 EZEKIEL LERMA MD Ot Z12.31 ENCNTR SCREEN MAMMOGRAM FOR MALIGNANT NE 08/06/2017 EZEKIEL LERMA MD Ot Z12.31 ENCNTR SCREEN MAMMOGRAM FOR MALIGNANT NE 08/17/2017 TRES MANZANO L OFFICE SERVICES ASSISTANT Ot E03.9 HYPOTHYROIDISM, UNSPECIFIED 08/17/2017 TRES MANZANO L OFFICE SERVICES ASSISTANT Ot I10 ESSENTIAL (PRIMARY) HYPERTENSION 08/17/2017 JOSE JUAN TRES L OFFICE SERVICES ASSISTANT Ot I48.0 PAROXYSMAL ATRIAL FIBRILLATION 08/17/2017 TRES MANZANO L OFFICE SERVICES ASSISTANT Ot R00.2 PALPITATIONS 08/18/2017 EZEKIEL LERMA MD Ot R10.11 RIGHT UPPER QUADRANT PAIN 08/18/2017 EZEKIEL LERMA MD Ot Z79.891 FPC (CURRENT) USE OF OPIATE ANALGE 08/18/2017 EZEKIEL LERMA MD Ot Z90.49 ACQUIRED ABSENCE OF OTHER SPECIFIED PART 08/18/2017 EZEKIEL LERMA MD Ot Z12.31 ENCNTR SCREEN MAMMOGRAM FOR MALIGNANT NE 08/22/2017 RAJITRES TODD L OFFICE SERVICES ASSISTANT Ot E03.9 HYPOTHYROIDISM, UNSPECIFIED 08/22/2017 BAIMA, TRES L OFFICE SERVICES ASSISTANT Ot I10 ESSENTIAL (PRIMARY) HYPERTENSION 08/22/2017 BAIMA, TRES L OFFICE SERVICES ASSISTANT Ot I48.0 PAROXYSMAL ATRIAL FIBRILLATION 08/22/2017 BAIMA, TRES L OFFICE SERVICES ASSISTANT Ot R00.2 PALPITATIONS 09/01/2017 BAIMA TRES L OFFICE SERVICES ASSISTANT Ot E03.9 HYPOTHYROIDISM, UNSPECIFIED 09/01/2017 BAIMA, TRES L OFFICE SERVICES ASSISTANT Ot I10 ESSENTIAL (PRIMARY) HYPERTENSION 09/01/2017 BAIMA, TRES L OFFICE SERVICES ASSISTANT Ot I48.0 PAROXYSMAL ATRIAL FIBRILLATION 09/01/2017 BAIMA, TRES L OFFICE SERVICES ASSISTANT Ot R00.2 PALPITATIONS 03/28/2018 KYAW, CHRISTIANA J JET MAN Ot G47.33 OBSTRUCTIVE SLEEP APNEA (ADULT) (PEDIATR 03/30/2018 KYAW, CHRISTIANA J JET MAN Ot G47.33 OBSTRUCTIVE SLEEP APNEA (ADULT) (PEDIATR 04/03/2018 KYAW, CHRISTIANA J JET MAN Ot G47.33 OBSTRUCTIVE SLEEP APNEA (ADULT) (PEDIATR 07/10/2018 CHEL RODRIGUEZ MD Ot 070.70 UNSPECIFIED VIRAL HEPATITIS C WITHOUT HE 07/10/2018 CHEL RODRIGUEZ MD Ot 242.00 TOX DIF GOITER NO CRISIS 07/10/2018 CHEL RODRIGUEZ MD Ot 287.5 THROMBOCYTOPENIA NOS 07/10/2018 CHEL RODRIGUEZ MD Ot 305.1 TOBACCO USE DISORDER 07/10/2018 CHEL RODRIGUEZ MD Ot 401.9 HYPERTENSION NOS 07/10/2018 ANNA CRESPO APRN Ot E03.9 HYPOTHYROIDISM, UNSPECIFIED 07/10/2018 ANNA CRESPO APRN Ot E05.00 THYROTOXICOSIS W DIFFUSE GOITER W/O THYR 07/10/2018 ANNA CRESPO APRN Ot I48.91 UNSPECIFIED ATRIAL FIBRILLATION 07/10/2018 ANNA CRESPO APRN Ot J44.9 CHRONIC OBSTRUCTIVE PULMONARY DISEASE, U 07/10/2018 ANNA CRESPO APRN Ot K58.9 IRRITABLE BOWEL SYNDROME WITHOUT DIARRHE 07/10/2018 ANNA CRESPO APRN Ot K62.5 HEMORRHAGE OF ANUS AND RECTUM 07/10/2018 ANNA CRESPO APRN Ot R06.00 DYSPNEA, UNSPECIFIED 07/10/2018 ANNA CRESPO APRN Ot R06.02 SHORTNESS OF BREATH 07/10/2018 ANNA CRESPO APRN Ot Z79.01 FPC (CURRENT) USE OF ANTICOAGULANT 07/10/2018 ANNA CRESPO APRN Ot Z82.49 FAMILY HX OF ISCHEM HEART DIS AND OTH DI 07/10/2018 ANNA CRESPO APRN Ot Z87.09 PERSONAL HISTORY OF OTHER DISEASES OF TH 07/10/2018 ANNA CRESPO APRN Ot Z87.891 PERSONAL HISTORY OF NICOTINE DEPENDENCE 07/10/2018 ANNA CRESPO APRN Ot Z88.8 ALLERGY STATUS TO [facility] DRUG/MEDS/BIOL SUB 07/10/2018 ANNA CRESPO APRN Ot Z90.710 ACQUIRED ABSENCE OF BOTH CERVIX AND UTER 07/10/2018 ANNA CRESPO APRN Ot Z91.041 RADIOGRAPHIC DYE ALLERGY STATUS 07/10/2018 ANNA CRESPO APRN Ot Z98.890 OTHER SPECIFIED POSTPROCEDURAL STATES 07/12/2018 ANNA CRESPO APRN Ot E03.9 HYPOTHYROIDISM, UNSPECIFIED 07/12/2018 ANNA CRESPO APRN Ot E05.00 THYROTOXICOSIS W DIFFUSE GOITER W/O THYR 07/12/2018 ANNA CRESPO APRN Ot I48.91 UNSPECIFIED ATRIAL FIBRILLATION 07/12/2018 ANNA CRESPO APRN Ot J44.9 CHRONIC OBSTRUCTIVE PULMONARY DISEASE, U 07/12/2018 ANNA CRESPO APRN Ot K58.9 IRRITABLE BOWEL SYNDROME WITHOUT DIARRHE 07/12/2018 ANNA CRESPO APRN Ot K62.5 HEMORRHAGE OF ANUS AND RECTUM 07/12/2018 ANNA CRESPO APRN Ot R06.00 DYSPNEA, UNSPECIFIED 07/12/2018 ANNA CRESPO APRN Ot R06.02 SHORTNESS OF BREATH 07/12/2018 ANNA CRESPO APRN Ot 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 07/12/2018 ANNA CRESPO APRN Ot Z82.49 FAMILY HX OF ISCHEM HEART DIS AND OTH DI 07/12/2018 ANNA CRESPO APRN Ot Z87.09 PERSONAL HISTORY OF OTHER DISEASES OF TH 07/12/2018 ANNA CRESPO APRN Ot Z87.891 PERSONAL HISTORY OF NICOTINE DEPENDENCE 07/12/2018 ANNA CRESPO APRN Ot Z88.8 ALLERGY STATUS TO OTH DRUG/MEDS/BIOL SUB 07/12/2018 ANNA CRESPO APRN Ot Z90.710 ACQUIRED ABSENCE OF BOTH CERVIX AND UTER 07/12/2018 ANNA CRESPO APRN Ot Z91.041 RADIOGRAPHIC DYE ALLERGY STATUS 07/12/2018 ANNA CRESPO APRN Ot Z98.890 OTHER SPECIFIED POSTPROCEDURAL STATES Procedures Code Description [place] [address] URINE DRUG SCREEN (IN-HOUSE) 04/05/2012 80090 COLUMN CHROMOTOGRAPHY, QUANT 04/18/[address] HEAD/BRAIN W/O DYE 04/26/2012 JOINT INJECTION- INTERMEDIATE JOINT 04/28/2012 J1040 DEPO MEDROL 80 MG INJ 04/28/2012 10067 MAMMOGRAM DX, DEV 04/29/2012 95026 ROUTINE VENIPUNCTURE 05/24/2012 81585 CMP 05/24/2012 95232 LIPID PANEL 05/24/2012 3798851 GFR CALC (RESULT ONLY) 05/24/2012 96648 TSH 05/24/2012 71631 T4 FREE 05/24/2012 J3301 KENALOG INJ, PER 10 MG 07/01/2012 09477 THERAPUTIC INJ SQ/IM 07/01/2012 75462 XRAY CHEST 2 VIEW 07/01/2012 09241 PULMONARY FUNCTION TEST (IN-HOUSE) 07/01/2012 59371 OXIMETRY 07/01/2012 79658 XRAY CHEST 2 VIEW 07/07/2012 80445 OXIMETRY 07/07/2012 35200 SPIROMETRY 07/12/2012 42562 BRONCHODILATION PRE/POST 07/12/2012 44391 RESPIRATORY FLOW VOLUME LOOP 07/12/2012 44669 JOINT INJECTION- INTERMEDIATE JOINT 08/04/2012 50388 H PYLORI (IN-HOUSE) 09/01/2012 82667 EGD 09/01/[address] CHEST W/O DYE 12/23/2012 73357 XRAY FINGER(S) LEFT MIN 2 VIEWS 12/30/2012 08197 ROUTINE VENIPUNCTURE 03/10/2013 22746 RA FACTOR 03/11/2013 ANAANA XIAO ANALYZER (SCREEN) 03/11/2013 92443 ROUTINE VENIPUNCTURE 04/05/2013 94048 XRAY CHEST 2 VIEW 04/05/2013 53000 CBC 04/05/2013 7456358 GFR CALC (RESULT ONLY) 04/05/2013 56109 CMP 04/05/2013 11761 TSH 04/05/2013 80814 MYCOPLASMA ANTIBODY 04/06/2013 93723 ROUTINE VENIPUNCTURE 06/20/2013 86739 TSH 06/20/2013 75301 CRP 06/20/2013 05401 XRAY HAND LEFT 2 VIEWS 06/28/2013 66532 ROUTINE VENIPUNCTURE 08/01/2013 53110 CCP ANTIBODY 08/01/2013 80351 DNA ANTIBODY (DOUBLE STRAND) 08/01/2013 96458 DNA ANTIBODY (SINGLE STRAND) 08/01/2013 53771 SJOGRENS SSA (RO)/SSB(LA) 08/01/2013 32399 MITOCHONDRIAL ANTIBODY 08/02/2013 39875 INJ TENDON SHEATH/LIGAMENT 09/07/2013 91389 TB TEST INTRADERMAL 12/27/2013 49500 ROUTINE VENIPUNCTURE 01/09/2014 24170 XRAY CERVICAL SPINE, 2 OR 3 VIEWS 01/09/2014 59242 XRAY WRIST LEFT 2 VIEWS 01/09/2014 31420 AMERITOX 01/09/2014 NEUROLOGY DONALDO DESOUZA 01/09/2014 78534 T4 FREE 01/09/2014 59232 T3 TOTAL 01/09/2014 95728 TSH 01/09/2014 Orthopedi Nolan Almendarez 01/18/2014 93210 JOINT INJECTION- INTERMEDIATE JOINT 01/18/2014 J1040 DEPO MEDROL 80 MG INJ 01/18/2014 62819 INFLUENZA A & B (IN-HOUSE) 04/05/2014 MEDICAL O BRIAN BALDERRAMA 05/23/2014 Results Test Result Range Complete urinalysis with reflex to culture - 01/06/16 16:10 Urine color determination YELLOW NRG Urine clarity determination CLEAR NRG Urine pH measurement by test strip 8 5-9 Specific gravity of urine by test strip 1.015 1.016-1.022 Urine protein assay by test strip, semi-quantitative NEGATIVE NEGATIVE Urine glucose detection by automated test strip NEGATIVE NEGATIVE Erythrocytes detection in urine sediment by light microscopy NEGATIVE NEGATIVE Urine ketones detection by automated test strip NEGATIVE NEGATIVE Urine nitrite detection by test strip NEGATIVE NEGATIVE Urine total bilirubin detection by test strip NEGATIVE NEGATIVE Urine urobilinogen measurement by automated test strip (mass/volume) NORMAL NORMAL Urine leukocyte esterase detection by dipstick 1+ NEGATIVE Automated urine sediment erythrocyte count by microscopy (number/high power field) NONE NRG Automated urine sediment leukocyte count by microscopy (number/high power field) [HPF] NRG Bacteria detection in urine sediment by light microscopy TRACE NRG Squamous epithelial cells detection in urine sediment by light microscopy RARE NRG Crystals detection in urine sediment by light microscopy PRESENT NRG Casts detection in urine sediment by light microscopy NONE NRG Mucus detection in urine sediment by light microscopy NEGATIVE NRG Complete urinalysis with reflex to culture NO NRG Amorphous sediment detection in urine sediment by light microscopy FEW RANDY PHOSPHATE NRG Complete blood count (CBC) with automated white blood cell (WBC) differential - 01/06/16 17:30 Blood leukocytes automated count (number/volume) 5.3 10*3/uL 4.3-11.0 Blood erythrocytes automated count (number/volume) 4.06 10*6/uL 4.35-5.85 Venous blood hemoglobin measurement (mass/volume) 12.8 g/dL 11.5-16.0 Blood hematocrit (volume fraction) 39 % 35-52 Automated erythrocyte mean corpuscular volume 95 [foz_us] 80-99 Automated erythrocyte mean corpuscular hemoglobin (mass per erythrocyte) 32 pg 25-34 Automated erythrocyte mean corpuscular hemoglobin concentration measurement (mass/volume) 33 g/dL 32-36 Automated erythrocyte distribution width ratio 12.3 % 10.0- 14.5 Automated blood platelet count (count/volume) 156 10*3/uL 130-400 Automated blood platelet mean volume measurement 10.3 [foz_us] 7.4-10.4 Automated blood neutrophils/100 leukocytes 47 % 42-75 Automated blood lymphocytes/100 leukocytes 35 % 12-44 Blood monocytes/100 leukocytes 11 % 0-12 Automated blood eosinophils/100 leukocytes 7 % 0-10 Automated blood basophils/100 leukocytes 1 % 0-10 Blood neutrophils automated count (number/volume) 2.5 10*3 1.8-7.8 Blood lymphocytes automated count (number/volume) 1.9 10*3 1.0-4.0 Blood monocytes automated count (number/volume) 0.6 10*3 0.0- 1.0 Automated eosinophil count 0.4 10*3/uL 0.0-0.3 Automated blood basophil count (count/volume) 0.0 10*3/uL 0.0-0.1 Comprehensive metabolic panel - 01/06/16 17:30 Serum or plasma sodium measurement (moles/volume) 139 mmol/L 135-145 Serum or plasma potassium measurement (moles/volume) 4.0 mmol/L 3.6-5.0 Serum or plasma chloride measurement (moles/volume) 106 mmol/L 98-107 Carbon dioxide 22 mmol/L 21-32 Serum or plasma anion gap determination (moles/volume) 11 mmol/L 5-14 Serum or plasma urea nitrogen measurement (mass/volume) 17 mg/dL 7-18 Serum or plasma creatinine measurement (mass/volume) 0.80 mg/dL 0.60-1.30 Serum or plasma urea nitrogen/creatinine mass ratio 21 NRG Serum or plasma creatinine measurement with calculation of estimated glomerular filtration rate > NRG Serum or plasma glucose measurement (mass/volume) 91 mg/dL 70-105 Serum or plasma calcium measurement (mass/volume) 9.3 mg/dL 8.5-10.1 Serum or plasma total bilirubin measurement (mass/volume) 0.6 mg/dL 0.1-1.0 Serum or plasma alkaline phosphatase measurement (enzymatic activity/volume) 62 U/L 40-136 Serum or plasma aspartate aminotransferase measurement (enzymatic activity/volume) 26 U/L 5-34 Serum or plasma alanine aminotransferase measurement (enzymatic activity/volume) 17 U/L 0-55 Serum or plasma protein measurement (mass/volume) 6.8 g/dL 6.4-8.2 Serum or plasma albumin measurement (mass/volume) 4.3 g/dL 3.2-4.5 Complete blood count (CBC) with automated white blood cell (WBC) differential - 08/06/16 13:40 Blood leukocytes automated count (number/volume) 4.6 10*3/uL 4.3-11.0 Blood erythrocytes automated count (number/volume) 4.04 10*6/uL 4.35-5.85 Venous blood hemoglobin measurement (mass/volume) 12.6 g/dL 11.5-16.0 Blood hematocrit (volume fraction) 39 % 35-52 Automated erythrocyte mean corpuscular volume 96 [foz_us] 80-99 Automated erythrocyte mean corpuscular hemoglobin (mass per erythrocyte) 31 pg 25-34 Automated erythrocyte mean corpuscular hemoglobin concentration measurement (mass/volume) 33 g/dL 32-36 Automated erythrocyte distribution width ratio 12.6 % 10.0- 14.5 Automated blood platelet count (count/volume) 155 10*3/uL 130-400 Automated blood platelet mean volume measurement 10.2 [foz_us] 7.4-10.4 Automated blood neutrophils/100 leukocytes 43 % 42-75 Automated blood lymphocytes/100 leukocytes 43 % 12-44 Blood monocytes/100 leukocytes 11 % 0-12 Automated blood eosinophils/100 leukocytes 3 % 0-10 Automated blood basophils/100 leukocytes 0 % 0-10 Blood neutrophils automated count (number/volume) 2.0 10*3 1.8-7.8 Blood lymphocytes automated count (number/volume) 2.0 10*3 1.0-4.0 Blood monocytes automated count (number/volume) 0.5 10*3 0.0- 1.0 Automated eosinophil count 0.1 10*3/uL 0.0-0.3 Automated blood basophil count (count/volume) 0.0 10*3/uL 0.0-0.1 PT panel in platelet poor plasma by coagulation assay - 08/06/16 13:40 Prothrombin time (PT) in platelet poor plasma by coagulation assay 13.5 s 12.2-14.7 INR in platelet poor plasma or blood by coagulation assay 1.1 0.8-1.4 Activated partial thromboplastin time (aPTT) in platelet poor plasma bycoagulation assay - 08/06/16 13:40 Activated partial thromboplastin time (aPTT) in platelet poor plasma bycoagulation assay 22 s 24-35 Comprehensive metabolic panel - 08/06/16 13:40 Serum or plasma sodium measurement (moles/volume) 141 mmol/L 135-145 Serum or plasma potassium measurement (moles/volume) 3.6 mmol/L 3.6-5.0 Serum or plasma chloride measurement (moles/volume) 109 mmol/L 98-107 Carbon dioxide 22 mmol/L 21-32 Serum or plasma anion gap determination (moles/volume) 10 mmol/L 5-14 Serum or plasma urea nitrogen measurement (mass/volume) 18 mg/dL 7-18 Serum or plasma creatinine measurement (mass/volume) 0.79 mg/dL 0.60-1.30 Serum or plasma urea nitrogen/creatinine mass ratio 23 NRG Serum or plasma creatinine measurement with calculation of estimated glomerular filtration rate > NRG Serum or plasma glucose measurement (mass/volume) 106 mg/dL 70-105 Serum or plasma calcium measurement (mass/volume) 9.4 mg/dL 8.5-10.1 Serum or plasma total bilirubin measurement (mass/volume) 0.8 mg/dL 0.1-1.0 Serum or plasma alkaline phosphatase measurement (enzymatic activity/volume) 52 U/L 40-136 Serum or plasma aspartate aminotransferase measurement (enzymatic activity/volume) 16 U/L 5-34 Serum or plasma alanine aminotransferase measurement (enzymatic activity/volume) 10 U/L 0-55 Serum or plasma protein measurement (mass/volume) 6.1 g/dL 6.4-8.2 Serum or plasma albumin measurement (mass/volume) 4.1 g/dL 3.2-4.5 Magnesium - 08/06/16 13:40 Magnesium 2.3 mg/dL 1.8-2.4 Serum or plasma troponin i.cardiac measurement (mass/volume) - 08/06/16 13:40 Serum or plasma troponin i.cardiac measurement (mass/volume) < ng/mL <0.30 Myoglobin, serum - 08/06/16 13:40 Myoglobin, serum 51.4 ng/mL 10.0-92.0 Serum or plasma troponin i.cardiac measurement (mass/volume) - 08/06/16 20:30 Serum or plasma troponin i.cardiac measurement (mass/volume) < ng/mL <0.30 Automated blood complete blood count (hemogram) panel - 08/07/16 03:03 Blood leukocytes automated count (number/volume) 4.9 10*3/uL 4.3-11.0 Blood erythrocytes automated count (number/volume) 4.01 10*6/uL 4.35-5.85 Venous blood hemoglobin measurement (mass/volume) 12.4 g/dL 11.5-16.0 Blood hematocrit (volume fraction) 39 % 35-52 Automated erythrocyte mean corpuscular volume 98 [foz_us] 80-99 Automated erythrocyte mean corpuscular hemoglobin (mass per erythrocyte) 31 pg 25-34 Automated erythrocyte mean corpuscular hemoglobin concentration measurement (mass/volume) 32 g/dL 32-36 Automated erythrocyte distribution width ratio 12.7 % 10.0- 14.5 Automated blood platelet count (count/volume) 129 10*3/uL 130-400 Automated blood platelet mean volume measurement 10.4 [foz_us] 7.4-10.4 Whole blood basic metabolic panel - 08/07/16 03:03 Serum or plasma sodium measurement (moles/volume) 140 mmol/L 135-145 Serum or plasma potassium measurement (moles/volume) 4.2 mmol/L 3.6-5.0 Serum or plasma chloride measurement (moles/volume) 110 mmol/L 98-107 Carbon dioxide 19 mmol/L 21-32 Serum or plasma anion gap determination (moles/volume) 11 mmol/L 5-14 Serum or plasma urea nitrogen measurement (mass/volume) 15 mg/dL 7-18 Serum or plasma creatinine measurement (mass/volume) 0.74 mg/dL 0.60-1.30 Serum or plasma urea nitrogen/creatinine mass ratio 20 NRG Serum or plasma creatinine measurement with calculation of estimated glomerular filtration rate > NRG Serum or plasma glucose measurement (mass/volume) 132 mg/dL 70-105 Serum or plasma calcium measurement (mass/volume) 8.7 mg/dL 8.5-10.1 [id number] - 11/20/16 10:57 Serum or plasma urea nitrogen measurement (mass/volume) 17 mg/dL 7-18 Serum or plasma creatinine measurement (mass/volume) 0.67 mg/dL 0.60-1.30 Serum or plasma urea nitrogen/creatinine mass ratio 25 NRG Serum or plasma creatinine measurement with calculation of estimated glomerular filtration rate > NRG Complete blood count (CBC) with automated white blood cell (WBC) differential - 01/16/17 17:42 Blood leukocytes automated count (number/volume) 7.5 10*3/uL 4.3-11.0 Blood erythrocytes automated count (number/volume) 4.12 10*6/uL 4.35-5.85 Venous blood hemoglobin measurement (mass/volume) 12.4 g/dL 11.5-16.0 Blood hematocrit (volume fraction) 39 % 35-52 Automated erythrocyte mean corpuscular volume 95 [foz_us] 80-99 Automated erythrocyte mean corpuscular hemoglobin (mass per erythrocyte) 30 pg 25-34 Automated erythrocyte mean corpuscular hemoglobin concentration measurement (mass/volume) 32 g/dL 32-36 Automated erythrocyte distribution width ratio 12.0 % 10.0- 14.5 Automated blood platelet count (count/volume) 192 10*3/uL 130-400 Automated blood platelet mean volume measurement 10.8 [foz_us] 7.4-10.4 Automated blood neutrophils/100 leukocytes 65 % 42-75 Automated blood lymphocytes/100 leukocytes 22 % 12-44 Blood monocytes/100 leukocytes 12 % 0-12 Automated blood eosinophils/100 leukocytes 0 % 0-10 Automated blood basophils/100 leukocytes 0 % 0-10 Blood neutrophils automated count (number/volume) 4.9 10*3 1.8-7.8 Blood lymphocytes automated count (number/volume) 1.6 10*3 1.0-4.0 Blood monocytes automated count (number/volume) 0.9 10*3 0.0- 1.0 Automated eosinophil count 0.0 10*3/uL 0.0-0.3 Automated blood basophil count (count/volume) 0.0 10*3/uL 0.0-0.1 Comprehensive metabolic panel - 01/16/17 17:42 Serum or plasma sodium measurement (moles/volume) 143 mmol/L 135-145 Serum or plasma potassium measurement (moles/volume) 3.6 mmol/L 3.6-5.0 Serum or plasma chloride measurement (moles/volume) 109 mmol/L 98-107 Carbon dioxide 22 mmol/L 21-32 Serum or plasma anion gap determination (moles/volume) 12 mmol/L 5-14 Serum or plasma urea nitrogen measurement (mass/volume) 17 mg/dL 7-18 Serum or plasma creatinine measurement (mass/volume) 0.74 mg/dL 0.60-1.30 Serum or plasma urea nitrogen/creatinine mass ratio 23 NRG Serum or plasma creatinine measurement with calculation of estimated glomerular filtration rate > NRG Serum or plasma glucose measurement (mass/volume) 77 mg/dL 70-105 Serum or plasma calcium measurement (mass/volume) 9.5 mg/dL 8.5-10.1 Serum or plasma total bilirubin measurement (mass/volume) 0.6 mg/dL 0.1-1.0 Serum or plasma alkaline phosphatase measurement (enzymatic activity/volume) 64 U/L 40-136 Serum or plasma aspartate aminotransferase measurement (enzymatic activity/volume) 17 U/L 5-34 Serum or plasma alanine aminotransferase measurement (enzymatic activity/volume) 13 U/L 0-55 Serum or plasma protein measurement (mass/volume) 7.2 g/dL 6.4-8.2 Serum or plasma albumin measurement (mass/volume) 4.3 g/dL 3.2-4.5 Magnesium - 01/16/17 17:42 Magnesium 2.1 mg/dL 1.8-2.4 Serum or plasma troponin i.cardiac measurement (mass/volume) - 01/16/17 17:42 Serum or plasma troponin i.cardiac measurement (mass/volume) < ng/mL <0.30 THYROID STIMULATING HORMONE - 01/16/17 17:42 THYROID STIMULATING HORMONE 0.07 u[iU]/mL 0.35-4.94 Serum or plasma thyroxine (T4) free measurement (mass/volume) - 01/16/17 17:42 Serum or plasma thyroxine (T4) free measurement (mass/volume) 1.14 ng/dL 0.70-1.48 Complete blood count (CBC) with automated white blood cell (WBC) differential - 01/17/17 05:20 Blood leukocytes automated count (number/volume) 5.1 10*3/uL 4.3-11.0 Blood erythrocytes automated count (number/volume) 4.20 10*6/uL 4.35-5.85 Venous blood hemoglobin measurement (mass/volume) 12.6 g/dL 11.5-16.0 Blood hematocrit (volume fraction) 40 % 35-52 Automated erythrocyte mean corpuscular volume 95 [foz_us] 80-99 Automated erythrocyte mean corpuscular hemoglobin (mass per erythrocyte) 30 pg 25-34 Automated erythrocyte mean corpuscular hemoglobin concentration measurement (mass/volume) 32 g/dL 32-36 Automated erythrocyte distribution width ratio 12.0 % 10.0- 14.5 Automated blood platelet count (count/volume) 197 10*3/uL 130-400 Automated blood platelet mean volume measurement 10.5 [foz_us] 7.4-10.4 Automated blood neutrophils/100 leukocytes 80 % 42-75 Automated blood lymphocytes/100 leukocytes 17 % 12-44 Blood monocytes/100 leukocytes 3 % 0-12 Automated blood eosinophils/100 leukocytes 0 % 0-10 Automated blood basophils/100 leukocytes 0 % 0-10 Blood neutrophils automated count (number/volume) 4.1 10*3 1.8-7.8 Blood lymphocytes automated count (number/volume) 0.9 10*3 1.0-4.0 Blood monocytes automated count (number/volume) 0.2 10*3 0.0- 1.0 Automated eosinophil count 0.0 10*3/uL 0.0-0.3 Automated blood basophil count (count/volume) 0.0 10*3/uL 0.0-0.1 Whole blood basic metabolic panel - 01/17/17 05:20 Serum or plasma sodium measurement (moles/volume) 141 mmol/L 135-145 Serum or plasma potassium measurement (moles/volume) 4.3 mmol/L 3.6-5.0 Serum or plasma chloride measurement (moles/volume) 109 mmol/L 98-107 Carbon dioxide 24 mmol/L 21-32 Serum or plasma anion gap determination (moles/volume) 8 mmol/L 5-14 Serum or plasma urea nitrogen measurement (mass/volume) 16 mg/dL 7-18 Serum or plasma creatinine measurement (mass/volume) 0.67 mg/dL 0.60-1.30 Serum or plasma urea nitrogen/creatinine mass ratio 24 NRG Serum or plasma creatinine measurement with calculation of estimated glomerular filtration rate > NRG Serum or plasma glucose measurement (mass/volume) 139 mg/dL 70-105 Serum or plasma calcium measurement (mass/volume) 9.1 mg/dL 8.5-10.1 Serum or plasma troponin i.cardiac measurement (mass/volume) - 01/17/17 05:20 Serum or plasma troponin i.cardiac measurement (mass/volume) < ng/mL <0.30 Lipid 1996 panel - 01/17/17 05:20 Serum or plasma triglyceride measurement (mass/volume) 35 mg/dL <150 Serum or plasma cholesterol measurement (mass/volume) 195 mg/dL < 200 Serum or plasma cholesterol in HDL measurement (mass/volume) 69 mg/dL 40-60 Cholesterol in LDL [mass/volume] in serum or plasma by direct assay 119 mg/dL 1-129 Serum or plasma cholesterol in VLDL measurement (mass/volume) 7 mg/dL 5-40 CBC - 03/19/17 09:00 WHITE BLOOD CELL COUNT 4.6 Thousand/uL 3.8-10.8 RED BLOOD CELL COUNT 3.89 Million/uL 3.80-5.10 HEMOGLOBIN 11.4 g/dL 11.7-15.5 HEMATOCRIT 34.6 % 35.0-45.0 MCV 88.9 fL 80.0-100.0 MCH 29.3 pg 27.0-33.0 MCHC 32.9 g/dL 32.0-36.0 RDW 11.8 % 11.0-15.0 PLATELET COUNT 220 Thousand/uL 140-400 MPV 10.4 fL 7.5-12.5 ABSOLUTE NEUTROPHILS 2107 cells/uL 1480-9781 ABSOLUTE LYMPHOCYTES 1730 cells/uL 850-3900 ABSOLUTE MONOCYTES 515 cells/uL 200-950 ABSOLUTE EOSINOPHILS 221 cells/uL 15-500 ABSOLUTE BASOPHILS 28 cells/uL 0-200 NEUTROPHILS 45.8 % NRG LYMPHOCYTES 37.6 % NRG MONOCYTES 11.2 % NRG EOSINOPHILS 4.8 % NRG BASOPHILS 0.6 % NRG CBC - 04/06/17 10:23 WHITE BLOOD CELL COUNT 3.2 Thousand/uL 3.8-10.8 RED BLOOD CELL COUNT 4.09 Million/uL 3.80-5.10 HEMOGLOBIN 11.9 g/dL 11.7-15.5 HEMATOCRIT 37.4 % 35.0-45.0 MCV 91.4 fL 80.0-100.0 MCH 29.1 pg 27.0-33.0 MCHC 31.8 g/dL 32.0-36.0 RDW 11.8 % 11.0-15.0 PLATELET COUNT 155 Thousand/uL 140-400 MPV 11.1 fL 7.5-12.5 ABSOLUTE NEUTROPHILS 1258 cells/uL 5732-0730 ABSOLUTE LYMPHOCYTES 1312 cells/uL 850-3900 ABSOLUTE MONOCYTES 445 cells/uL 200-950 ABSOLUTE EOSINOPHILS 166 cells/uL 15-500 ABSOLUTE BASOPHILS 19 cells/uL 0-200 NEUTROPHILS 39.3 % NRG LYMPHOCYTES 41.0 % NRG MONOCYTES 13.9 % NRG EOSINOPHILS 5.2 % NRG BASOPHILS 0.6 % NRG CBC - 05/10/17 09:41 WHITE BLOOD CELL COUNT 5.0 Thousand/uL 3.8-10.8 RED BLOOD CELL COUNT 4.27 Million/uL 3.80-5.10 HEMOGLOBIN 12.5 g/dL 11.7-15.5 HEMATOCRIT 38.6 % 35.0-45.0 MCV 90.4 fL 80.0-100.0 MCH 29.3 pg 27.0-33.0 MCHC 32.4 g/dL 32.0-36.0 RDW 12.2 % 11.0-15.0 PLATELET COUNT 187 Thousand/uL 140-400 MPV 10.9 fL 7.5-12.5 ABSOLUTE NEUTROPHILS 2605 cells/uL 5053-9912 ABSOLUTE LYMPHOCYTES 1780 cells/uL 850-3900 ABSOLUTE MONOCYTES 465 cells/uL 200-950 ABSOLUTE EOSINOPHILS 110 cells/uL 15-500 ABSOLUTE BASOPHILS 40 cells/uL 0-200 NEUTROPHILS 52.1 % NRG LYMPHOCYTES 35.6 % NRG MONOCYTES 9.3 % NRG EOSINOPHILS 2.2 % NRG BASOPHILS 0.8 % NRG T3 TOTAL - 11/08/17 11:49 T3, TOTAL 90 ng/dL 76-181 PDM - PAIN MGMT (PROFILE 3 WITH CONFIRMATION) - 02/14/18 08:52 Prescribed Drug 1 Hydrocodone NRG Creatinine 153.0 mg/dL > or=20.0 pH 7.10 4.5 - 9.0 Oxidant NEGATIVE mcg/mL <200 Amphetamines NEGATIVE ng/mL <500 medMATCH Amphetamines CONSISTENT NRG Benzodiazepines NEGATIVE CONFIRMED ng/mL <100 Marijuana Metabolite NEGATIVE ng/mL <20 medMATCH Marijuana Metab CONSISTENT NRG Cocaine Metabolite NEGATIVE ng/mL <150 medMATCH Cocaine Metab CONSISTENT NRG Opiates POSITIVE ng/mL <100 Oxycodone NEGATIVE ng/mL <100 medMATCH Oxycodone CONSISTENT NRG COMMENT NRG Alphahydroxyalprazolam NEGATIVE ng/mL <25 medMATCH aOH alprazolam CONSISTENT NRG Alphahydroxymidazolam NEGATIVE ng/mL <50 medMATCH aOH midazolam CONSISTENT NRG Alphahydroxytriazolam NEGATIVE ng/mL <50 medMATCH aOH triazolam CONSISTENT NRG Aminoclonazepam NEGATIVE ng/mL <25 medMATCH Aminoclonazepam CONSISTENT NRG Hydroxyethylflurazepam NEGATIVE ng/mL <50 medMATCH OH,Et flurazepam CONSISTENT NRG Lorazepam NEGATIVE ng/mL <50 medMATCH Lorazepam CONSISTENT NRG Nordiazepam NEGATIVE ng/mL <50 medMATCH Nordiazepam CONSISTENT NRG Oxazepam NEGATIVE ng/mL <50 medMATCH Oxazepam CONSISTENT NRG Temazepam NEGATIVE ng/mL <50 medMATCH Temazepam CONSISTENT NRG Codeine NEGATIVE ng/mL <50 medMATCH Codeine CONSISTENT NRG Hydrocodone 1024 ng/mL <50 medMATCH Hydrocodone CONSISTENT NRG Hydromorphone 300 ng/mL <50 medMATCH Hydromorphone CONSISTENT NRG Morphine NEGATIVE ng/mL <50 medMATCH Morphine CONSISTENT NRG Norhydrocodone 3175 ng/mL <50 medMATCH Norhydrocodone CONSISTENT NRG TSH - 07/04/18 15:19 TSH 0.31 mIU/L 0.40-4.50 Complete blood count (CBC) with automated white blood cell (WBC) differential - 07/10/18 16:43 Blood leukocytes automated count (number/volume) 9.4 10*3/uL 4.3-11.0 Blood erythrocytes automated count (number/volume) 4.39 10*6/uL 4.35-5.85 Venous blood hemoglobin measurement (mass/volume) 13.2 g/dL 11.5-16.0 Blood hematocrit (volume fraction) 40 % 35-52 Automated erythrocyte mean corpuscular volume 92 [foz_us] 80-99 Automated erythrocyte mean corpuscular hemoglobin (mass per erythrocyte) 30 pg 25-34 Automated erythrocyte mean corpuscular hemoglobin concentration measurement (mass/volume) 33 g/dL 32-36 Automated erythrocyte distribution width ratio 12.4 % 10.0- 14.5 Automated blood platelet count (count/volume) 195 10*3/uL 130-400 Automated blood platelet mean volume measurement 10.6 [foz_us] 7.4-10.4 Automated blood neutrophils/100 leukocytes 68 % 42-75 Automated blood lymphocytes/100 leukocytes 20 % 12-44 Blood monocytes/100 leukocytes 11 % 0-12 Automated blood eosinophils/100 leukocytes 0 % 0-10 Automated blood basophils/100 leukocytes 0 % 0-10 Blood neutrophils automated count (number/volume) 6.4 10*3 1.8-7.8 Blood lymphocytes automated count (number/volume) 1.9 10*3 1.0-4.0 Blood monocytes automated count (number/volume) 1.0 10*3 0.0- 1.0 Automated eosinophil count 0.0 10*3/uL 0.0-0.3 Automated blood basophil count (count/volume) 0.0 10*3/uL 0.0-0.1 Comprehensive metabolic panel - 07/10/18 16:43 Serum or plasma sodium measurement (moles/volume) 138 mmol/L 135-145 Serum or plasma potassium measurement (moles/volume) 4.2 mmol/L 3.6-5.0 Serum or plasma chloride measurement (moles/volume) 107 mmol/L 98-107 Carbon dioxide 19 mmol/L 21-32 Serum or plasma anion gap determination (moles/volume) 12 mmol/L 5-14 Serum or plasma urea nitrogen measurement (mass/volume) 20 mg/dL 7-18 Serum or plasma creatinine measurement (mass/volume) 0.82 mg/dL 0.60-1.30 Serum or plasma urea nitrogen/creatinine mass ratio 24 NRG Serum or plasma creatinine measurement with calculation of estimated glomerular filtration rate > NRG Serum or plasma glucose measurement (mass/volume) 89 mg/dL 70-105 Serum or plasma calcium measurement (mass/volume) 9.5 mg/dL 8.5-10.1 Serum or plasma total bilirubin measurement (mass/volume) 0.9 mg/dL 0.1-1.0 Serum or plasma alkaline phosphatase measurement (enzymatic activity/volume) 67 U/L 40-136 Serum or plasma aspartate aminotransferase measurement (enzymatic activity/volume) 17 U/L 5-34 Serum or plasma alanine aminotransferase measurement (enzymatic activity/volume) 11 U/L 0-55 Serum or plasma protein measurement (mass/volume) 7.5 g/dL 6.4-8.2 Serum or plasma albumin measurement (mass/volume) 4.2 g/dL 3.2-4.5 CALCIUM CORRECTED 9.3 mg/dL 8.5-10.1 Serum or plasma troponin i.cardiac measurement (mass/volume) - 07/10/18 16:43 Serum or plasma troponin i.cardiac measurement (mass/volume) < ng/mL <0.028 Blood type T Indirect antibody screen panel - 07/10/18 16:43 ABO+Rh group AN [facility] Transfusion band number [id number] [facility] Blood group antibody screen NEGATIVE [facility] Serum or plasma C reactive protein measurement (mass/volume) - 07/10/18 16:43 Serum or plasma C reactive protein measurement (mass/volume) 4.29 mg/dL 0.00-0.50 Serum or plasma lithium measurement (moles/volume) - 07/10/18 16:43 BNP level 45.6 pg/mL <100.0 Encounters ACCT No. Visit Date/Time Discharge Status Pt. Type Provider Facility Loc./Unit Complaint [id number] 06/14/2014 14:05:00 06/14/2014 23:59:59 CLS Outpatient NOLAN ALMENDAREZ APRN [id number] 05/17/2014 15:25:00 05/17/2014 23:59:59 CLS Outpatient EZEKIEL LERMA MD [id number] 04/18/2014 15:19:00 04/18/2014 23:59:59 CLS Outpatient GAB BATISTA APRN [id number] 04/05/2014 18:10:00 04/05/2014 23:59:59 CLS Outpatient GRZEGORZ RO APRN [id number] 03/19/2014 00:00:00 03/19/2014 23:59:59 CLS Outpatient [id number] 01/18/2014 14:13:00 01/18/2014 23:59:59 CLS Outpatient NOLAN ALMENDAREZ APRN [id number] 01/09/2014 14:29:00 01/09/2014 23:59:59 CLS Outpatient EZEKIEL LERMA MD [id number] 12/27/2013 10:56:00 12/27/2013 23:59:59 CLS Outpatient JULY PARKS DO [id number] 11/07/2013 14:01:00 11/07/2013 23:59:59 CLS Outpatient EZEKIEL LERMA MD [id number] 09/28/2013 13:12:00 09/28/2013 23:59:59 CLS Outpatient GAB BATISTA APRN [id number] 09/21/2013 11:14:00 09/21/2013 23:59:59 CLS Outpatient GAB BATISTA APRN [id number] 09/07/2013 14:21:00 09/07/2013 23:59:59 CLS Outpatient JULY PARKS DO [id number] 08/01/2013 14:48:00 08/01/2013 23:59:59 CLS Outpatient EZEKIEL LERMA MD [id number] 06/28/2013 08:50:00 06/28/2013 23:59:59 CLS Outpatient EZEKIEL LERMA MD [id number] 06/20/2013 14:01:00 06/20/2013 23:59:59 CLS Outpatient ARIADNA OJEDA MD [id number] 06/01/2013 15:43:00 06/01/2013 23:59:59 CLS Outpatient EZEKIEL LERMA MD [id number] 05/05/2013 09:10:00 05/05/2013 23:59:59 CLS Outpatient EZEKIEL LERMA MD [id number] 04/05/2013 09:01:00 04/05/2013 23:59:59 CLS Outpatient GAB BATISTA APRN [id number] 03/10/2013 15:33:00 03/10/2013 23:59:59 CLS Outpatient EZEKIEL LERMA MD [id number] 12/30/2012 14:48:00 12/30/2012 23:59:59 CLS Outpatient JULY PARKS DO [id number] 07/21/2012 09:47:00 07/21/2012 23:59:59 CLS Outpatient ALESIA PAEZ APRN [id number] 07/12/2012 09:47:00 07/12/2012 23:59:59 CLS Outpatient JULY PARKS DO [id number] 07/07/2012 09:27:00 07/07/2012 23:59:59 CLS Outpatient [id number] 07/01/2012 10:17:00 07/01/2012 23:59:59 CLS Outpatient JULY PARKS DO [id number] 06/28/2012 13:20:00 06/28/2012 23:59:59 CLS Outpatient [id number] 05/24/2012 10:03:00 05/24/2012 23:59:59 CLS Outpatient GRZEGORZ RO APRN [id number] 04/28/2012 14:55:00 04/28/2012 23:59:59 CLS Outpatient JULY PARKS DO [id number] 04/26/2012 14:53:00 04/26/2012 23:59:59 CLS Outpatient JULY PARKS DO [id number] 04/05/2012 08:47:00 04/05/2012 23:59:59 CLS Outpatient GRZEGORZ RO APRN [id number] 02/04/2012 10:01:00 02/04/2012 23:59:59 CLS Outpatient [id number] 02/04/2012 10:01:00 02/04/2012 23:59:59 CLS Outpatient [id number] 12/23/2012 15:35:00 Document Registration [id number] 11/24/2012 12:57:00 Document Registration [id number] 09/01/2012 09:40:00 Document Registration [id number] 08/18/2012 09:27:00 Document Registration [id number] 08/04/2012 14:02:00 Document Registration [id number] 07/10/2018 16:26:00 07/10/2018 18:57:00 DIS Emergency ANNA CRESPO APRN [facility] ER CONGESTION,SOA [id number] 03/28/2018 10:00:00 03/28/2018 23:59:59 CLS Outpatient CHRISTIANA CARD JET MAN [facility] SLEEP POSS SAMMY [id number] 09/06/2017 10:00:00 09/06/2017 23:59:59 CLS Preadmit CHRISTIANA CARD JET MAN [facility] SLEEP OBSTRUCTIVE SLEEP APNEA G47.33 [id number] 08/16/2017 11:59:00 08/16/2017 23:59:59 CLS Outpatient TRES MANZANO [facility] CARD PAF,PALPITATIONS [id number] 08/05/2017 10:07:00 08/05/2017 23:59:59 CLS Outpatient EZEKIEL LERMA MD [facility] RAD SCREENING [id number] 08/02/2017 08:52:00 08/02/2017 23:59:59 CLS Outpatient EZEKIEL LERMA MD [facility] RAD CHRONIC PRESCRIPTION OPIATE USE [id number] 03/18/2017 09:21:00 03/18/2017 23:59:59 CLS Outpatient EZEKIEL LERMA MD [facility] RAD M81.0 OSTEOPOROSIS [id number] 02/16/2017 13:09:00 02/16/2017 23:59:59 CLS Outpatient TRES MANZANO [facility] LAB R07.89, I48.0, E03.8 [id number] 01/25/2017 14:01:00 01/25/2017 23:59:59 CLS Outpatient BAIMA, TRES L OFFICE SERVICES ASSISTANT [facility] RT CHEST DISCOMFORT [id number] 01/16/2017 19:43:00 01/17/2017 13:40:00 DIS Inpatient EZEKIEL LERMA MD [facility] ICU NOVEL AFIB W RVR [id number] 11/20/2016 10:39:00 11/20/2016 23:59:59 CLS Outpatient ARIADNA OJEDA MD [facility] RAD UNILATERAL HEADACHE Z86.79 [id number] 09/07/2016 13:59:00 09/07/2016 14:55:00 DIS Outpatient LEVY DOSS MD [facility] CARD M51.16 DISC DISORDER [id number] 08/06/2016 15:37:00 08/07/2016 13:30:00 DIS Outpatient MILADY MARIO FACC, DILAN HERNANDEZ CCDS [facility] CARD CHEST PAIN [id number] 07/13/2016 12:53:00 07/13/2016 13:53:00 DIS Outpatient LEVY DOSS MD [facility] CARD DISC DISORDER [id number] 02/15/2016 10:44:00 02/15/2016 12:20:00 DIS Emergency RADHA GONZALEZ RYDER [facility] ER STOMACH PAIN [id number] 02/06/2016 12:55:00 02/06/2016 23:59:59 CLS Outpatient EZEKIEL LERMA MD [facility] RAD RT SIDED SCIATICA [id number] 01/06/2016 15:35:00 01/06/2016 18:28:00 DIS Emergency ANNA CRESPO 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 [facility] ER LOWER ABD PAIN [id number] 12/12/2015 11:04:00 12/30/2015 11:14:00 DIS Outpatient NOLAN ALMENDAREZ [facility] REHAB R SIDED SCIATICA; TROCHANTERIC BURSITIS [id number] 12/24/2015 10:22:00 12/24/2015 15:24:00 DIS Outpatient CHRIST COBURN DO [facility] SDC REFLUX [id number] 12/19/2015 05:40:00 12/19/2015 23:59:59 CLS Outpatient CHRIST COBURN DO [facility] PREOP REFLUX [id number] 11/04/2015 06:54:00 11/04/2015 23:59:59 CLS Outpatient EZEKIEL LERMA MD [facility] RAD RUQ ABDOMINAL PAIN [id number] 05/16/2015 08:33:00 05/16/2015 23:59:59 CLS Outpatient INDIA DEMPSEY 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 [facility] RAD OSTEOPORSIS [id number] 04/24/2015 16:00:00 04/24/2015 23:59:59 CLS Outpatient EZEKIEL LERMA MD [facility] RAD DEV LOW BACK PAIN, PAIN R HIP [id number] 02/11/2015 14:44:00 02/11/2015 23:59:59 CLS Outpatient INDIA DEMPSEY 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 [facility] RAD SCREENING [id number] 01/23/2015 09:15:00 01/23/2015 10:47:00 DIS Emergency ANNA CRESPO 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 [facility] ER LEFT ANKLE PAIN [id number] 10/03/2014 15:21:00 10/03/2014 23:59:59 CLS Outpatient SAÚL GUZMAN DO [facility] LAB [id number] 09/12/2014 00:10:00 09/12/2014 23:59:59 CLS Preadmit CHEL RODRIGUEZ MD [facility] ONC [id number] 07/24/2014 13:12:00 09/11/2014 00:01:00 DIS Outpatient CHEL RODRIGUEZ MD [facility] ONC [id number] 08/13/2014 14:06:00 08/13/2014 23:59:59 CLS Outpatient SAÚL GUZMAN DO [facility] LAB HYPOTHYROIDISM [id number] 07/13/2014 14:57:00 07/13/2014 18:07:00 DIS Emergency HANS HELMS MD [facility] ER BACK PAIN [id number] 04/08/2014 09:49:00 04/10/2014 17:25:00 DIS Inpatient ARIADNA OJEDA MD [address] [id number] 10/31/2013 11:55:00 10/31/2013 15:05:00 DIS Outpatient CHRIST COBURN DO Brett [facility] [id number] 10/24/2013 15:52:00 10/24/2013 23:59:59 CLS Outpatient CHRIST COBURN DO Brett [facility] PREOP [id number] 09/14/2013 03:20:00 09/14/2013 21:17:00 DIS Inpatient KASEY MEGA Jennifer [address] [id number] 09/03/2013 16:33:00 09/03/2013 18:24:00 DIS Emergency DEVON BRAND [facility] ER [id number] 07/13/2013 17:28:00 07/13/2013 23:59:59 CLS Outpatient ENRIQUE NGUYỄN [facility] [id number] 04/23/2013 16:32:00 04/23/2013 18:23:00 DIS Emergency HANS HELMS MD [facility] ER [id number] 03/13/2013 15:33:00 03/13/2013 23:59:59 CLS Outpatient HEENA DO MAYITO M [facility] RAD [id number] 02/07/2013 21:55:00 02/11/2013 13:45:00 DIS Inpatient ARIADNA OJEDA MD [facility] [address] [id number] 01/11/2013 09:30:00 01/11/2013 23:59:59 CLS Outpatient EZEKIEL LERMA MD [facility] RAD [id number] 12/28/2012 09:55:00 12/28/2012 23:59:59 CLS Outpatient EZEKIEL LERMA MD [facility] RAD [id number] 10/30/2014 13:44:00 Document Registration [id number] 10/30/2014 13:44:00 Document Registration [id number] 10/30/2014 13:44:00 Document Registration [id number] 10/30/2014 13:44:00 Document Registration [id number] 10/30/2014 13:43:00 Document Registration [id number] 10/30/2014 13:43:00 Document Registration [id number] 10/30/2014 13:43:00 Document Registration [id number] 10/30/2014 13:43:00 Document Registration [id number] 10/30/2014 13:43:00 Document Registration [id number] 10/30/2014 13:43:00 Document Registration [id number] 10/30/2014 13:43:00 Document Registration [id number] 10/30/2014 13:43:00 Document Registration [id number] 10/30/2014 13:43:00 Document Registration [id number] 10/30/2014 13:43:00 Document Registration [id number] 10/30/2014 13:43:00 Document Registration [id number] 05/10/2012 11:09:00 Document Registration [id number] 04/27/2012 15:05:00 Document Registration [id number] 01/02/2012 12:27:00 Document Registration [id number] 11/11/2011 12:37:00 Document Registration [id number] 07/06/2011 15:24:00 Document Registration [id number] 03/06/2011 13:19:00 Document Registration [id number] 03/04/2011 17:07:00 Document Registration [id number] 12/31/2010 16:35:00 Document Registration [id number] 09/13/2009 08:04:00 Document Registration [id number] 09/12/2009 08:15:00 Document Registration [id number] 02/15/2008 14:10:00 Document Registration [id number] 08/11/2007 14:58:00 Document Registration [id number] 06/15/2006 14:32:00 Document Registration [id number] 09/21/2018 15:20:00 ACT EZEKIEL Gutierrez MD [facility] [id number] 07/04/2018 14:20:00 Document Registration [id number] 02/14/2018 08:00:00 Document Registration [id number] 11/08/2017 10:00:00 Document Registration [id number] 05/10/2017 09:40:00 Document Registration [id number] 04/06/2017 10:00:00 Document Registration [id number] 03/19/2017 08:40:00 Document Registration
[2018-09-22 03:53] LABS: BACTERIA,URINE TRACE /HPF; CLARITY,URINE SL CLOUDY; SQUAMOUS EPITHELIAL CELL,UR 0-2 /HPF; WBC,URINE 25-50 /HPF
[2018-09-22] MEDS ORDERED: PHEN-640 PO (04:57)
[2018-09-22] MEDS ORDERED: ACHD5005 PO (04:57)
[2018-09-22] MEDS ORDERED: PHENAZOPYRIDINE 100 MG (PYRIDIUM) TABLET PO ONE (05:00)
[2018-09-22] MEDS ORDERED: RX-HYDROCODONE/APAP 5/325 MG #4 TAB PK PO PRN (05:00)
--- NOTE | 2018-09-22 05:10 | NUR ---
pt remains alert g[facility] 15. remains in the room,pt still c/o abd pain rating 5. denies nausea and no v/d noted in er visit . pt denies dyspnea and no acute sighns of dyspnea noted.
[2018-09-22 05:11] VITALS: BP 126/78
--- NOTE | 2018-09-22 05:11 | NUR ---
d/c instructions to pt. told to read all papers. scripts paper and fax. pt left ambulatory with . pt knows f/u. i went over the handtyped by information on the chart. iv d/cd by me prior to d/c. take home vicodin given. take home pyridium given.
--- NOTE | 2018-09-22 06:27 | Diagnostic Imaging Report ---
PROCEDURE: CT urinary tract, rule out kidney stone. TECHNIQUE: Multiple contiguous axial images were obtained through the abdomen and pelvis without the use of intravenous contrast. Auto Exposure Controls were utilized during the CT exam to meet ALARA standards for radiation dose reduction. INDICATION: Severe abdominal pain. FINDINGS: There is no focal hepatic or splenic abnormality identified on noncontrasted images. Gallbladder is surgically absent. No pancreatic, adrenal gland or renal lesion is detected. There is no free fluid within the abdomen or pelvis. No pathologic adenopathy is seen. There is no evidence of focal inflammation. No bowel obstruction is identified. There is disc bulging at the L5-S1 level with L4-L5 and L5-S1 degenerative facet arthropathy present. IMPRESSION: No acute abnormality is detected. Dictated by: Dictated on workstation # [id number]
--- NOTE | 2018-09-22 07:18 | Diagnostic Imaging Report ---
INDICATION: Severe abdominal pain. FINDINGS: Supine images of the abdomen are obtained which reveal normal bowel gas pattern. There are calcified phleboliths in the right hemipelvis. There is no evidence of free intraperitoneal gas or pneumatosis. Surgical clips are seen in the gallbladder fossa. IMPRESSION: No acute abnormality is detected. Dictated by: Dictated on workstation # [id number]
== END 2018-09-22 05:11 | disposition home or self-care (01) ==
LOC: EDUNIT# 02:16 → ER 02:18
DX: N39.0 Urinary tract infection, site not specified (principal); J44.9 Chronic obstructive pulmonary disease, unspecified; K58.9 Irritable bowel syndrome, unspecified; E03.9 Hypothyroidism, unspecified; E05.00 Thyrotoxicosis with diffuse goiter without thyrotoxic crisis or storm; Z91.041 Radiographic dye allergy status; Z88.8 Allergy status to other drugs, medicaments and biological substances; Z82.49 Family history of ischemic heart disease and other diseases of the circulatory system; Z79.01 Long term (current) use of anticoagulants; Z79.52 Long term (current) use of systemic steroids; Z87.891 Personal history of nicotine dependence; Z90.710 Acquired absence of both cervix and uterus; Z98.890 Other specified postprocedural states; Z86.69 Personal history of other diseases of the nervous system and sense organs
CPT/HCPCS: 36415; 74019; 74176; 80053; 81000; 82150; 83690; 85025; 85610; 85730; 87088

== ENCOUNTER → 2018-11-25 | Outpatient (CLI) | payer BC ==
[~2018-11-25] MED LIST changes: +ACHD5005 PO; +PHEN-640 PO
--- NOTE | 2018-11-28 10:19 | Diagnostic Imaging Report ---
INDICATION: Routine screening. COMPARISON: 08/05/2017 and 02/11/2015. TECHNIQUE: 2D and 3D bilateral screening mammography was performed with CAD. FINDINGS: Scattered fibroglandular densities are identified bilaterally. The parenchymal pattern is stable. No mass or malignant appearing microcalcifications are seen. The axillae are unremarkable. IMPRESSION: No mammographic features suspicious for malignancy are identified. ACR BI-RADS Category 1: Negative. Result letter will be mailed to the patient. Note: At least 10% of breast cancer is not imaged by mammography. Dictated by: Dictated on workstation # [id number]
== END ==
LOC: RAD 15:04
PROVIDERS: ATTEND Family Medicine
DX: Z12.31 Encounter for screening mammogram for malignant neoplasm of breast (principal)
CPT/HCPCS: 77067

== ENCOUNTER → 2019-01-16 | Outpatient (CLI) | payer BC ==
[2019-01-16 11:48] LABS: BASOPHILS % (AUTO) 1 % (0-10); EOSINOPHILS # (AUTO) 0.7 10^3/uL (0.0-0.3); EOSINOPHILS % (AUTO) 15 % (0-10); HEMATOCRIT 37 % (35-52); HEMOGLOBIN 11.8 G/DL (11.5-16.0); LYMPHOCYTES # (AUTO) 1.4 X 10^3 (1.0-4.0); LYMPHOCYTES % (AUTO) 31 % (12-44); MEAN CORPUSCULAR HEMOGLOBIN 31 PG (25-34); MEAN CORPUSCULAR HGB CONC 32 G/DL (32-36); MEAN CORPUSCULAR VOLUME 97 FL (80-99); MEAN PLATELET VOLUME 9.4 FL (7.4-10.4); MONOCYTES # (AUTO) 0.5 X 10^3 (0.0-1.0); MONOCYTES % (AUTO) 12 % (0-12); NEUTROPHILS # (AUTO) 1.9 X 10^3 (1.8-7.8); NEUTROPHILS % (AUTO) 42 % (42-75); PLATELET COUNT 167 10^3/uL (130-400); RED CELL DISTRIBUTION WIDTH 13.2 % (10.0-14.5); WHITE BLOOD COUNT 4.6 10^3/uL (4.3-11.0)
[2019-01-16 12:07] LABS: ALANINE AMINOTRANSFERASE 13 U/L (0-55); ALBUMIN 3.8 GM/DL (3.2-4.5); ALKALINE PHOSPHATASE 55 U/L (40-136); BILIRUBIN,TOTAL 0.5 MG/DL (0.1-1.0); BUN/CREATININE RATIO 20; CALCIUM 9.1 MG/DL (8.5-10.1); CARBON DIOXIDE 29 MMOL/L (21-32); CHLORIDE 109 MMOL/L (98-107); CREATININE SERUM 0.76 MG/DL (0.60-1.30); GFR ESTIMATED > 60; GLUCOSE 65 MG/DL (70-105); POTASSIUM 4.2 MMOL/L (3.6-5.0); SODIUM 144 MMOL/L (135-145); TOTAL PROTEIN 6.9 GM/DL (6.4-8.2)
== END ==
LOC: LAB 11:34
PROVIDERS: ATTEND Nurse Practitioner Family
DX: I48.0 Paroxysmal atrial fibrillation (principal); I10 Essential (primary) hypertension
CPT/HCPCS: 36415; 80053; 84443; 85025

== ENCOUNTER → 2019-03-08 | Emergency (ER) | payer BC ==
[~2019-03-08] VITALS: Ht 170 cm; Wt 90.4 kg
--- NOTE | 2019-03-08 16:51 | ED Lower Extremity ---
General Chief Complaint: Lower Extremity Stated Complaint: TOE PAIN Nursing Triage Note: PATIENT STATES THAT YESTERDAY SHE DROPPED A LARGE JARD OF PICKLES ON HER TOE (RIGHT GREAT AND 2ND TOE). STATES ITS BLACK AND BLUE, SWOLLEN, NO BLEEDING. Nursing Sepsis Screen: No Definite Risk Source: patient Exam Limitations: no limitations History of Present Illness Date Seen by Provider: Mar 08, 2019 Time Seen by Provider: 16:48 Onset: yesterday Severity: moderate Pain/Injury Location: right 1st toe, right 2nd toe Method of Injury: direct blow Modifying Factors: Worse With Movement Allergies and Home Medications Allergies Coded Allergies: Iodinated Contrast- Oral and IV Dye (Verified Allergy, Unknown, 07/10/18) diltiazem (Verified Allergy, Unknown, 07/10/18) Home Medications Apixaban 5 Mg Tablet, 5 MG PO BID Prescribed by: HOA JORDAN on 01/17/17 1041 Azithromycin 250 Mg Tablet, 250 MG PO UD TAKE 2 TABLETS ON DAY ONE THEN TAKE 1 TABLET DAILY FOR FOUR MORE DAYS Prescribed by: ANNA CRESPO on 07/10/18 184 Hydrocodone Bit/Acetaminophen 1 Tab Tab, 1-2 EACH PO Q6H PRN for PAIN-MODERATE Prescribed by: EVELIA DAILEY on 09/22/18 0457 Hydrocodone/Acetaminophen 1 Each Tablet, 1 TAB PO TID PRN for PAIN-MODERATE, (Reported) Levothyroxine Sodium 200 Mcg Tablet, 400 MCG PO DAILY, (Reported) Metoprolol Succinate 25 Mg Tab.er.24h, 25 MG PO DAILY Prescribed by: HOA JORDAN on 01/17/17 1041 Phenazopyridine HCl 200 Mg Tablet, 1 TAB PO TID Prescribed by: EVELIA DAILEY on 09/22/18456 Prednisone 20 Mg Tab, 40 MG PO DAILY Prescribed by: ANNA CRESPO on 07/10/181842 Patient Home Medication List Home Medication List Reviewed: Yes Review of Systems Constitutional: see HPI EENTM: see HPI Respiratory: no symptoms reported Cardiovascular: no symptoms reported Genitourinary: no symptoms reported Musculoskeletal: see HPI Skin: no symptoms reported Psychiatric/Neurological: No Symptoms Reported Past Wznesrv-Dtbnpq-Txtyxb Hx Patient Social History Alcohol Use: Denies Use Recreational Drug Use: No Smoking Status: Former Smoker Type Used: Cigarettes Former Smoker, Quit: Apr 19, 2012 2nd Hand Smoke Exposure: No Recent Foreign Travel: No Contact w/Someone Who Travel: No Recent Infectious Disease Expo: No Recent Hopitalizations: Yes (BRAIN AN 1995, BLADDER TIE UP , TVH WITH BSO 1999, GALLBLADDER 2005) Physical Abuse: No Sexual Abuse: No Immunizations Up To Date Tetanus Booster (TDap): Unknown PED Vaccines UTD: No Date of Pneumonia Vaccine: Jan 31, 2013 Date of Influenza Vaccine: Jan 17, 2014 Seasonal Allergies Seasonal Allergies: No Past Medical History Surgeries: Yes (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) Bladder Surgery, Gallbladder, Hysterectomy, Neurological, Vascular Surgery Respiratory: Yes COPD Cardiac: Yes (CEREBRAL ANEURYSM SURGERY; ON ELIQUIS FOR ATRIAL FIBRILLATION) Aneurysm, Atrial Fibrillation Neurological: Yes (CEREBRAL ANEURYSM SURGERY) Reproductive Disorders: No 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, 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 Sexually Transmitted Disease: No HIV/AIDS: No Genitourinary: No Gastrointestinal: Yes Irritable Bowel Fractures Endocrine: Yes (GRAVES DISEASE) Hypothyroidsim HEENT: No Cancer: No Psychosocial: No Integumentary: No Blood Disorders: No Adverse Reaction/Blood Tranf: No Family Medical History Arthritis 19 FATHER Cancer G8 SISTER 19 MOTHER Cardiovascular disease 19 FATHER Completed stroke 19 FATHER Family history: Cardiovascular disease 19 FATHER Kidney disease 19 FATHER No Family History of: AIDS Abdominal aortic aneurysm [place]osemite's disease Alcoholism Alzheimer's disease Aphasia Cancer of mouth Cataracts Colon cancer Congenital disease Coronary thrombosis Cystic fibrosis Deafness or hearing loss Dementia Diabetes mellitus Drug abuse Dysphasia Fibrocystic disease of breast Gastroenteritis Glaucoma Headache disorder Hypercholesterolemia Hypertension Infertility Myocardial infarction Neoplasm Not obtainable due to adoption Osteoporosis Parkinson's disease Prostate cancer Respiratory disorder Seizure disorder Severe allergy Thyroid disease Tuberculosis Visual disorder Cancer, CVA, Hypertension, Renal Disease Physical Exam Vital Signs Vital Signs - First Documented 03/08/19 16:41 Temp 37.5 Pulse 58 Resp 20 B/P (MAP) 146/98 (114) Pulse Ox 100 Capillary Refill : Less Than 3 Seconds Height, Weight, BMI Height: 5'7.00" Weight: 183lbs. 0.0oz. 83.970146qc; 31.00 BMI Method:Stated General Appearance: WD/WN, no apparent distress HEENT: PERRL/EOMI, normal ENT inspection Respiratory: no respiratory distress, no accessory muscle use Hips: bilateral hip non-tender, bilateral hip normal inspection, bilateral hip normal range of motion Legs: bilateral leg non-tender, bilateral leg normal inspection, bilateral leg normal range of motion Knees: bilateral knee non-tender, bilateral knee normal inspection, bilateral knee normal range of motion Ankles: bilateral ankle non-tender, bilateral ankle normal inspection, bilateral ankle normal range of motion Feet: right foot pain, right foot soft tissue tenderness, right foot other (ecchymosis and tenderness to the great toe, present but to a lesser degree on the lesser toe next to it.. Brisk capillary refill.) Neurologic/Psychiatric: alert, normal mood/affect, oriented x 3 Skin: normal color, warm/dry Progress/Results/Core Measures Results/Orders My Orders Orders - ANNA CRESPO APRN Foot, Right, 3 View (03/08/19 16:47) Vital Signs/I&O 03/08/19 16:41 Temp 37.5 Pulse 58 Resp 20 B/P (MAP) 146/98 (114) Pulse Ox 100 Blood Pressure Mean: 114 POS Departure Impression Primary Impression: Fracture of toe Qualified Codes: S92.424A - Nondisplaced fracture of distal phalanx of right great toe, initial encounter for closed fracture Disposition: ADMITTED INPATIENT Condition: Improved Departure-Patient Inst. Decision time for Depature: 16:50 Referrals: EZEKIEL LERMA MD (PCP) Primary Care Physician ESTIVEN VALDEZ MD, ROBERT F DO ZAFUTA, MICHAEL P MD Patient Instructions: Contusion (DC), Toe Fracture (DC) Add. Discharge Instructions: Ice to the area 2. Ibuprofen in addition to your hydrocodone 3. Follow-up with your doctor next week or one of the orthopedists listed. All discharge instructions reviewed with patient and/or family. Voiced und erstanding. ANNA CRESPO APRN Mar 08, 2019 16:51 POS
--- NOTE | 2019-03-08 17:06 | Diagnostic Imaging Report ---
INDICATION: Right foot injury. EXAMINATION: Three views of the right foot were obtained. FINDINGS: There is a nondisplaced transverse fracture across the base of the distal phalanx of the big toe. There is a questionable nondisplaced fracture of the base of the distal phalanx of the 2nd toe. IMPRESSION: There is a transverse fracture of the distal phalanx of the big toe and a questionable fracture of the distal phalanx of the 2nd toe. Dictated by: Dictated on workstation # [id number]
[2019-03-08 17:30] VITALS: BP 146/98
== END ==
LOC: EDUNIT# 16:36 → ER 16:38
DX: S92.424A Nondisplaced fracture of distal phalanx of right great toe, initial encounter for closed fracture (principal); J44.9 Chronic obstructive pulmonary disease, unspecified; I48.91 Unspecified atrial fibrillation; K58.9 Irritable bowel syndrome, unspecified; E03.9 Hypothyroidism, unspecified; E05.00 Thyrotoxicosis with diffuse goiter without thyrotoxic crisis or storm; Z79.01 Long term (current) use of anticoagulants; Z90.710 Acquired absence of both cervix and uterus; Z87.891 Personal history of nicotine dependence; Z79.52 Long term (current) use of systemic steroids; Z88.8 Allergy status to other drugs, medicaments and biological substances; Z82.49 Family history of ischemic heart disease and other diseases of the circulatory system; Z91.041 Radiographic dye allergy status; W20.8XXA Other cause of strike by thrown, projected or falling object, initial encounter
CPT/HCPCS: 73630

== ENCOUNTER → 2019-04-18 | Outpatient (CLI) | payer BC ==
--- NOTE | 2019-04-18 15:17 | Diagnostic Imaging Report ---
INDICATION: Postmenopausal state, screening for osteoporosis. COMPARISON: March 18, 2017. FINDINGS: AP Spine L1-L4: [BMD (g/cm2): 0.800] [T-Score: -3.3] [Z-Score: -3.0] [BMD Previous: 0.784] [BMD % Change: 2.0] LT Hip Neck: [BMD (g/cm2): 0.733] [T-Score: -2.2] [Z-Score: -1.5] LT Hip Total: [BMD (g/cm2):0.759] [T-Score:-2.0] [Z-Score: -1.7] [BMD Previous: 0.760] [BMD % Change: -0.1] RT Hip Neck: [BMD (g/cm2):0.720] [T-Score:-2.3] [Z-Score:-1.6] RT Hip Total: [BMD (g/cm2):0.695] [T-score:-2.5] [Z-Score:-2.2] [BMD Previous:0.681] [BMD % Change:2.1] *Indicates significant change from prior examination based on 95% confidence level. World Health Organization criteria for BMD interpretation classify patients as Normal (T-score at or above -1.0), Osteopenic (T-score between -1.0 and -2.5) or Osteoporotic (T-score at or below -2.5). LIMITATIONS AND MODIFICATION: None. IMPRESSION: 1. Osteoporosis. 2. No significant change in bone mineral density since prior examination. 3. See below National Osteoporosis Foundation guidelines on when to potentially initiate pharmacologic therapy. Based on the National Osteoporosis Foundation Guidelines, pharmacologic treatment should be initiated in any of the following, unless clinical conditions suggest otherwise: * Any patient with prior fragility fracture of the hip or vertebrae. A spine fracture indicates 5X risk for subsequent spine fracture and 2X risk for subsequent hip fracture. * Osteoporosis (T-score <-2.5). * Postmenopausal women and men age 50 and older with low bone mass/osteopenia (T-score between -1.0 and -2.5) by DXA and 10-year major osteoporotic fracture greater than 20% or a 10-year probability of hip fracture greater than 3%. These fracture risks are supplied above in the FRAX score, if applicable. * Clinician judgment and/or patient preferences may indicate treatment for people with 10-year fracture probabilities above or below these levels. Dictated by: Dictated on workstation # [id number]
== END ==
LOC: RAD 13:45
PROVIDERS: ATTEND Family Medicine
DX: Z13.820 Encounter for screening for osteoporosis (principal); M81.0 Age-related osteoporosis without current pathological fracture; Z78.0 Asymptomatic menopausal state
CPT/HCPCS: 77080

== ENCOUNTER → 2019-09-19 | Outpatient (CLI) | payer BC ==
[~2019-09-19] VITALS: Ht 170 cm; Wt 90.0 kg
[~2019-09-19] MED LIST changes: +ACHYD1T PO; +CATHETER FLUSH 10 ML SYR IV PRN; -HYDR-3820 PO; -METO-387 PO; +MTP25TSR PO; +REGADENOSON 0.4 MG/5 ML SYR (LEXISCAN) IV ONE
[2019-09-19 09:13] VITALS: BP 101/69
[2019-09-19 09:15] VITALS: BP 120/77
--- NOTE | 2019-09-19 20:35 | STRESS TEST ---
DATE OF SERVICE: 09/19/2019 RESTING AND POST REGADENOSON TECHNETIUM-99M TETROFOSMIN SPECT IMAGING ORDERING PHYSICIAN: Dr. Mckeon. PRIMARY PHYSICIAN: Dr. Walker. CLINICAL DIAGNOSES: Chest discomfort, hypertension, palpitations. Baseline images were carried out after injection of 10.39 mCi of technetium-99m Tetrofosmin. This was followed by 0.4 mg regadenoson and 33 mCi of technetium-99m Tetrofosmin for stress imaging. The electrocardiogram showed sinus rhythm at baseline. It did not change significantly with regadenoson infusion. Review of images at rest and following stress does not indicate any significant perfusion defects consistent with significant myocardial ischemia or infarction. Gated images show normal global left ventricular systolic function with normal regional wall motion. Left ventricular ejection fraction is calculated to be 64%. Left ventricular end diastolic volume is 45 mL. TID is absent (1.03). CONCLUSIONS: 1. No evidence of significant myocardial ischemia or infarction. 2. Normal regional wall motion. 3. Normal global left ventricular systolic function with a calculated ejection fraction of 64%. Job ID: [id number] DocumentID: [id number] Dictated Date: 09/19/2019 16:45:53 Leadership Coach Date: 09/19/2019 20:34:21 Dictated By: DILAN MCKEON MD, MA, FACP, FACC,
== END ==
LOC: CARD 08:10
PROVIDERS: ATTEND Internal Medicine Cardiovascular Disease
DX: I10 Essential (primary) hypertension (principal); I48.0 Paroxysmal atrial fibrillation; R00.2 Palpitations
CPT/HCPCS: 78452; 93017

== ENCOUNTER → 2019-11-01 | Outpatient (CLI) | payer BC ==
[~2019-11-01] MED LIST changes: +HOLD METFORMIN - RECEIVED CONTRAST 20 ML VIAL IV SCH; +IOHEXOL 350 MG/ML 100 ML (OMNIPAQUE 350) VIAL IV ONE; +NS 100 ML (IVPB) BAG IV ONE; -REGADENOSON 0.4 MG/5 ML SYR (LEXISCAN) IV ONE
[2019-11-01 07:49] LABS: CREATININE SERUM 0.78 MG/DL (0.60-1.30); GFR ESTIMATED > 60
[2019-11-01 07:50] LABS: BUN/CREATININE RATIO 17
--- NOTE | 2019-11-01 09:19 | Diagnostic Imaging Report ---
PROCEDURE: CT chest with contrast only. TECHNIQUE: Multiple contiguous axial images were obtained through the chest after administration of intravenous contrast. Auto Exposure Controls were utilized during the CT exam to meet ALARA standards for radiation dose reduction. INDICATION: Chest pain and cardiac disease. FINDINGS: Heart appeared unremarkable. At CT, there is no pleural or pericardial effusion. Thoracic aorta is patent and nonaneurysmal. There are no identifiable pulmonary arterial filling defects. There were no identifiable coronary arterial atherosclerotic vascular calcifications. An incidental azygous fissure in the right apex noted. There is no evidence for failure pattern. No vascular anomaly. No lung mass or thoracic adenopathy. No findings of edema or pneumonia. No significant chest wall abnormality. Visualized upper abdomen demonstrates previous cholecystectomy. IMPRESSION: Unremarkable CT chest. Dictated by: Dictated on workstation # [id number]
== END ==
LOC: RAD 07:16
PROVIDERS: ATTEND Nurse Practitioner Family
DX: R07.89 Other chest pain (principal); Z90.49 Acquired absence of other specified parts of digestive tract
CPT/HCPCS: 36415; 71260; 82565; 84520

== ENCOUNTER → 2020-03-04 | Outpatient (CLI) | payer BC ==
[~2020-03-04] MED LIST changes: -CATHETER FLUSH 10 ML SYR IV PRN; -HOLD METFORMIN - RECEIVED CONTRAST 20 ML VIAL IV SCH; -IOHEXOL 350 MG/ML 100 ML (OMNIPAQUE 350) VIAL IV ONE; -NS 100 ML (IVPB) BAG IV ONE
--- NOTE | 2020-03-04 15:43 | Diagnostic Imaging Report ---
INDICATION: Routine screening. COMPARISON: 11/25/2018 and 08/05/2017. TECHNIQUE: 2D and 3D bilateral screening mammography was performed with CAD. FINDINGS: Scattered fibroglandular densities are identified bilaterally. No mass or malignant appearing microcalcifications are seen. The axillae are unremarkable. IMPRESSION: No mammographic features suspicious for malignancy are identified. ACR BI-RADS Category 1: Negative. Result letter will be mailed to the patient. Note: At least 10% of breast cancer is not imaged by mammography. Dictated by: Dictated on workstation # [id number]
== END ==
LOC: RAD 14:45
PROVIDERS: ATTEND Family Medicine
DX: Z12.31 Encounter for screening mammogram for malignant neoplasm of breast (principal)
CPT/HCPCS: 77063; 77067

== ENCOUNTER 2020-06-16 00:16 | Emergency (ER) | payer BC ==
[~2020-06-16] VITALS: Ht 170.2 cm; Wt 76.4 kg
[2020-06-16] MEDS ORDERED: RX-NAPROXEN (NAPROSYN) 250 MG TAB PPK#4 PO STA (01:20)
[2020-06-16] MEDS ORDERED: MELO15TA14 PO (01:30)
--- NOTE | 2020-06-16 01:30 | ED Lower Extremity ---
General Chief Complaint: Lower Extremity Stated Complaint: R FOOT SWELLING/PAIN Nursing Triage Note: ASSISTED PT VIA ED W/C TO FT1 WITH C/O INJURY TO R FOOT. 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 REPORTS SHE THEN "TWISTED" HER R FOOT ET HEARD A "POP." REPORTS FOLLOWING INJURY, SHE BEGAN TO EXPERIENCE NAUSEA ET BECAME DIAPHORETIC. REPORTS PAIN TO R LATERAL FOOT. DORSALIS PEDIS PULSE PRESENT AND PALPABLE. DISTAL CAP. REFILL <3 SECONDS WITH DUSKY COLOR NOTED. DENIES FURTHER INJURY. A&OX4. 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 PCP: PATRICK LERMA Allergies and Home Medications Allergies Coded Allergies: Iodinated Contrast Media (Verified Allergy, Unknown, 07/10/18) diltiazem (Verified Allergy, Unknown, 07/10/18) Home Medications Apixaban 5 Mg Tablet, 5 MG PO BID Prescribed by: HOA JORDAN on 01/17/17 1041 Azithromycin 250 Mg Tablet, 250 MG PO UD TAKE 2 TABLETS ON DAY ONE THEN TAKE 1 TABLET DAILY FOR FOUR MORE DAYS Prescribed by: ANNA CRESPO on 07/10/18 1843 Hydrocodone Bit/Acetaminophen 1 Each Tablet, 1 TAB PO TID PRN for PAIN-MODERATE, (Reported) Hydrocodone Bit/Acetaminophen 1 Tab Tab, 1-2 EACH PO Q6H PRN for PAIN-MODERATE Prescribed by: EVELIA DAILEY on 09/22/18 0457 Levothyroxine Sodium 200 Mcg Tablet, 400 MCG PO DAILY, (Reported) Meloxicam 15 Mg Tablet, 15 MG PO DAILY Prescribed by: EVELIA DAILEY on 06/16/20 0130 Metoprolol Succinate 25 Mg Tab.er.24h, 25 MG PO DAILY Prescribed by: HOA JORDAN on 01/17/17 1041 Phenazopyridine HCl 200 Mg Tablet, 1 TAB PO TID Prescribed by: EVELIA DAILEY on 09/22/18 0457 Prednisone 20 Mg Tab, 40 MG PO DAILY Prescribed by: ANNA CRESPO on 07/10/18 1843 Patient Home Medication List Home Medication List Reviewed: Yes Review of Systems Constitutional: no symptoms reported Musculoskeletal: see HPI Skin: no symptoms reported Psychiatric/Neurological: See HPI Past Cnxywfx-Gfrkyp-Czjqrz Hx Past Med/Social Hx: Reviewed and Corrections made Patient Social History Alcohol Use: Denies Use Smoking Status: Former Smoker Type Used: Cigarettes Former Smoker, Quit: Apr 19, 2012 2nd Hand Smoke Exposure: No Recent Infectious Disease Expo: No Recent Hopitalizations: Yes (BRAIN AN 1995, BLADDER TIE UP , TVH WITH BSO 1999, GALLBLADDER 2005) Immunizations Up To Date Tetanus Booster (TDap): Unknown PED Vaccines UTD: No Date of Pneumonia Vaccine: Jan 31, 2013 Date of Influenza Vaccine: Jan 17, 2014 Seasonal Allergies Seasonal Allergies: No Past Medical History Surgeries: Yes (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) Bladder Surgery, Gallbladder, Hysterectomy, Neurological, Vascular Surgery Respiratory: Yes COPD Cardiac: Yes (CEREBRAL ANEURYSM SURGERY; ON ELIQUIS FOR ATRIAL FIBRILLATION) Aneurysm, Atrial Fibrillation Neurological: Yes (CEREBRAL ANEURYSM SURGERY) Reproductive Disorders: Yes 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, 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, 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 Sexually Transmitted Disease: No HIV/AIDS: No Genitourinary: No Gastrointestinal: Yes Irritable Bowel Musculoskeletal: Yes Fractures Endocrine: Yes (GRAVES DISEASE) Hypothyroidsim HEENT: No Cancer: No Psychosocial: Yes Anxiety Integumentary: No Blood Disorders: No Adverse Reaction/Blood Tranf: No Family Medical History Arthritis 19 FATHER Cancer G8 SISTER 19 MOTHER Cardiovascular disease 19 FATHER Completed stroke 19 FATHER Family history: Cardiovascular disease 19 FATHER Kidney disease 19 FATHER No Family History of: AIDS Abdominal aortic aneurysm Lorimor's disease Alcoholism Alzheimer's disease Aphasia Cancer of mouth Cataracts Colon cancer Congenital disease Coronary thrombosis Cystic fibrosis Deafness or hearing loss Dementia Diabetes mellitus Drug abuse Dysphasia Fibrocystic disease of breast Gastroenteritis Glaucoma Headache disorder Hypercholesterolemia Hypertension Infertility Myocardial infarction Neoplasm Not obtainable due to adoption Osteoporosis Parkinson's disease Prostate cancer Respiratory disorder Seizure disorder Severe allergy Thyroid disease Tuberculosis Visual disorder Cancer, CVA, Hypertension, Renal Disease Physical Exam Vital Signs Vital Signs - First Documented 06/16/20 00:33 Temp 36.3 Pulse 65 Resp 18 B/P (MAP) 110/69 (83) Pulse Ox 100 O2 Delivery Room Air Capillary Refill : Less Than 3 Seconds Height, Weight, BMI Height: 5'7.00" Weight: 183lbs. 0.0oz. 83.451162li; 26.00 BMI Method:Stated General Appearance: WD/WN, no apparent distress Ankles: right ankle other (TENDERNESS TO LATERAL ASPECT OF RIGHT ANKLE. ) Feet: right foot other (TENDERNESS AND MILD SWELLING TO LATERAL ASPECT OF PROXIMAL ASPECT OF RIGHT FOOT. DISTAL MOTOR/SENSORY/VASCULAR INTACT. ) Neurologic/Tendon: normal sensation, normal motor functions, normal tendon functions Neurologic/Psychiatric: no motor/sensory deficits, alert, normal mood/affect, oriented x 3 Skin: normal color, warm/dry Procedures/Interventions Splinting and Joint Reduction : Bernardo wrap: Yes Immobilizers: Step Light Walker s/m/lg Ordered: Walker Progress/Results/Core Measures Results/Orders My Orders Orders - EVELIA DAILEY DO Foot, Right, 3 View (06/16/20 00:43) Ankle, Right, 3 Views (06/16/20 00:43) Bernardo Bandage (06/16/20 01:20) Steplite (06/16/20 01:20) Rx-Naproxen (Rx-Naprosyn) (06/16/20 01:20) Walker (06/16/20 01:32) Vital Signs/I&O 06/16/20 06/16/20 00:33 01:45 Temp 36.3 36.3 Pulse 65 62 Resp 18 16 B/P (MAP) 110/69 (83) 112/68 (83) Pulse Ox 100 100 O2 Delivery Room Air Room Air Blood Pressure Mean: 83 Diagnostic Imaging Comments XRAYS RIGHT FOOT AND ANKLE--NO ACUTE PROCESS, PENDING RADIOLOGIST REVIEW Reviewed: Reviewed by Me Departure Impression Primary Impression: RIGHT FOOT AND ANKLE SPRAIN Disposition: HOME, SELF-CARE Condition: Stable Departure-Patient Inst. Referrals: EZEKIEL LERMA MD (PCP/Family) Primary Care Physician Patient Instructions: How to Use an Elastic Bandage, Sprain (DC), Walking Boot Add. Discharge Instructions: BERNARDO WRAP AND WALKING BOOT NEEDED FOR COMFORT ICE TO AREA AT 20 MINUTE INTERVALS ELEVATE FOOT MUCH POSSIBLE USE WALKER NEEDED FOR AMBULATION FOLLOW UP WITH YOUR DR IN 4-5 DAYS IF NO BETTER All discharge instructions reviewed with patient and/or family. Voiced u nderstanding. Scripts Meloxicam (Mobic) 15 Mg Tablet 15 MG PO DAILY, #10 TAB Prov: EVELIA DAILEY DO 06/16/20 EVELIA DAILEY DO Jun 16, 2020 01:30
[2020-06-16 01:45] VITALS: BP 112/68
--- NOTE | 2020-06-16 07:11 | Diagnostic Imaging Report ---
Indication: Right foot injury with pain and swelling. Comparison: 03/08/2019. Discussion: Three views of the right foot were obtained. No adverse interval change. No acute fracture, dislocation, or other osseous abnormality identified. No significant degenerative disease. Alignment is anatomic. Soft tissues are unremarkable. Impression: 1. Stable negative right foot. Dictated by: Dictated on workstation # [id number]
--- NOTE | 2020-06-16 07:11 | Diagnostic Imaging Report ---
Indication: Right ankle injury with pain and swelling. Comparison: None. Discussion: Three views of the right ankle were obtained. No acute fracture, dislocation, or other osseous abnormality identified. No significant degenerative disease. Alignment is anatomic. Soft tissues are unremarkable. Impression: 1. Negative right ankle. Dictated by: Dictated on workstation # [id number]
== END 2020-06-16 01:46 | disposition home or self-care (01) ==
LOC: EDUNIT# 00:16 → ER 00:19
DX: S93.601A Unspecified sprain of right foot, initial encounter (principal); S93.401A Sprain of unspecified ligament of right ankle, initial encounter; E03.9 Hypothyroidism, unspecified; J44.9 Chronic obstructive pulmonary disease, unspecified; I48.91 Unspecified atrial fibrillation; Z88.8 Allergy status to other drugs, medicaments and biological substances; Z87.891 Personal history of nicotine dependence; Z91.041 Radiographic dye allergy status; Z82.61 Family history of arthritis; Z80.9 Family history of malignant neoplasm, unspecified; Z82.49 Family history of ischemic heart disease and other diseases of the circulatory system; Z79.890 Hormone replacement therapy; Z79.01 Long term (current) use of anticoagulants; Z79.52 Long term (current) use of systemic steroids; X50.1XXA Overexertion from prolonged static or awkward postures, initial encounter
CPT/HCPCS: 73610; 73630; 99283; L2114

== ENCOUNTER 2020-10-06 13:57 | Emergency (ER) | payer BC ==
[~2020-10-06] VITALS: Ht 170.1 cm; Wt 77.1 kg
[~2020-10-06 13:57] MED LIST changes: +MELO15TA14 PO
--- NOTE | 2020-10-06 14:13 | ED General ---
General Stated Complaint: DIZINESS, L ARM NUMB, CHEST PAIN Source of Information: Patient Exam Limitations: No Limitations History of Present Illness Date Seen by Provider: Oct 06, 2020 Time Seen by Provider: 14:02 Initial Comments To ER with dizziness, left arm numbness, chest tightness, general uneasiness. This began while she was at work today. Timing/Duration: 1-2 Days Severity: Moderate Allergies and Home Medications Allergies Coded Allergies: Iodinated Contrast Media (Verified Allergy, Unknown, 07/10/18) diltiazem (Verified Allergy, Unknown, 07/10/18) Home Medications Apixaban 5 Mg Tablet, 5 MG PO BID Prescribed by: HOA JORDAN on 01/17/17 1041 Azithromycin 250 Mg Tablet, 250 MG PO UD TAKE 2 TABLETS ON DAY ONE THEN TAKE 1 TABLET DAILY FOR FOUR MORE DAYS Prescribed by: ANNA CRESPO on 07/10/18 184 Hydrocodone Bit/Acetaminophen 1 Each Tablet, 1 TAB PO TID PRN for PAIN-MODERATE, (Reported) Hydrocodone Bit/Acetaminophen 1 Tab Tab, 1-2 EACH PO Q6H PRN for PAIN-MODERATE Prescribed by: EVELIA DAILEY on 09/22/18 0457 Levothyroxine Sodium 200 Mcg Tablet, 400 MCG PO DAILY, (Reported) Meloxicam 15 Mg Tablet, 15 MG PO DAILY Prescribed by: EVELIA DAILEY on 06/16/20 0130 Metoprolol Succinate 25 Mg Tab.er.24h, 25 MG PO DAILY Prescribed by: HOA JORDAN on 01/17/17 1041 Phenazopyridine HCl 200 Mg Tablet, 1 TAB PO TID Prescribed by: EVELIA DAILEY on 09/22/18456 Prednisone 20 Mg Tab, 40 MG PO DAILY Prescribed by: ANNA CRESPO on 07/10/18 184 Patient Home Medication List Home Medication List Reviewed: Yes Review of Systems Review of Systems Constitutional: see HPI EENTM: see HPI Respiratory: no symptoms reported Cardiovascular: see HPI, chest pain Musculoskeletal: no symptoms reported Skin: no symptoms reported Psychiatric/Neurological: No Symptoms Reported Hematologic/Lymphatic: No Symptoms Reported Past Vaglpqz-Acltzi-Hqqnsw Hx Patient Social History Type Used: Cigarettes Former Smoker, Quit: Apr 19, 2012 2nd Hand Smoke Exposure: No Recent Hopitalizations: Yes (BRAIN AN 1995, BLADDER TIE UP , TVH WITH BSO 1999, GALLBLADDER 2005) Immunizations Up To Date Tetanus Booster (TDap): Unknown PED Vaccines UTD: No Date of Pneumonia Vaccine: Jan 31, 2013 Date of Influenza Vaccine: Jan 17, 2014 Seasonal Allergies Seasonal Allergies: No Past Medical History Surgeries: Yes (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) Bladder Surgery, Gallbladder, Hysterectomy, Neurological, Vascular Surgery Respiratory: Yes COPD Cardiac: Yes (CEREBRAL ANEURYSM SURGERY; ON ELIQUIS FOR ATRIAL FIBRILLATION) Aneurysm, Atrial Fibrillation Neurological: Yes (CEREBRAL ANEURYSM SURGERY) Reproductive Disorders: Yes 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, Menstrual Problems 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, 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 Sexually Transmitted Disease: No HIV/AIDS: No Genitourinary: No Gastrointestinal: Yes Irritable Bowel Musculoskeletal: Yes Fractures Endocrine: Yes (GRAVES DISEASE) Hypothyroidsim HEENT: No Cancer: No Psychosocial: Yes Anxiety Integumentary: No Blood Disorders: No Adverse Reaction/Blood Tranf: No Family Medical History Arthritis 19 FATHER Cancer G8 SISTER 19 MOTHER Cardiovascular disease 19 FATHER Completed stroke 19 FATHER Family history: Cardiovascular disease 19 FATHER Kidney disease 19 FATHER No Family History of: AIDS Abdominal aortic aneurysm [place]'s disease Alcoholism Alzheimer's disease Aphasia Cancer of mouth Cataracts Colon cancer Congenital disease Coronary thrombosis Cystic fibrosis Deafness or hearing loss Dementia Diabetes mellitus Drug abuse Dysphasia Fibrocystic disease of breast Gastroenteritis Glaucoma Headache disorder Hypercholesterolemia Hypertension Infertility Myocardial infarction Neoplasm Not obtainable due to adoption Osteoporosis Parkinson's disease Prostate cancer Respiratory disorder Seizure disorder Severe allergy Thyroid disease Tuberculosis Visual disorder Cancer, CVA, Hypertension, Renal Disease Physical Exam Vital Signs Vital Signs - First Documented 10/06/20 14:00 Temp 36.3 Pulse 62 Resp 24 B/P (MAP) 110/88 (95) Pulse Ox 100 O2 Delivery Room Air Capillary Refill : Height, Weight, BMI Height: 5'7.00" Weight: 183lbs. 0.0oz. 83.353828hw; 26.00 BMI Method:Stated General Appearance: No Apparent Distress, WD/WN, Anxious, Other Eyes: Bilateral Eye Normal Inspection, Bilateral Eye PERRL, Bilateral Eye EOMI Respiratory: No Accessory Muscle Use, No Respiratory Distress Cardiovascular: Regular Rate, Rhythm, Normal Peripheral Pulses Gastrointestinal: Non Tender, Soft Extremity: Normal Capillary Refill, Normal Inspection Neurologic/Psychiatric: Alert, Oriented x3 Skin: Normal Color, Warm/Dry Progress/Results/Core Measures Suspected Sepsis SIRS Temperature: Pulse: Respiratory Rate: Laboratory Tests 10/06/20 14:15: White Blood Count 5.0 Blood Pressure / Mean: Laboratory Tests 10/06/20 14:15: Creatinine 0.86, Platelet Count 178, Total Bilirubin 0.7 10/06/20 15:00: INR Comment 1.2 Results/Orders Lab Results Laboratory Tests Test 10/06/20 14:15 10/06/20 15:00 10/06/20 16:05 Range/Units White Blood Count 5.0 4.3-11.0 10^3/uL Red Blood Count 4.20 3.80-5.11 10^6/uL Hemoglobin 12.8 11.5-16.0 g/dL Hematocrit 40 35-52 % Mean Corpuscular Volume 95 80-99 fL Mean Corpuscular Hemoglobin 31 25-34 pg Mean Corpuscular Hemoglobin Concent 32 32-36 g/dL Red Cell Distribution Width 12.3 10.0-14.5 % Platelet Count 178 130-400 10^3/uL Mean Platelet Volume 10.5 9.0-12.2 fL Immature Granulocyte % (Auto) 0 % Neutrophils (%) (Auto) 65 42-75 % Lymphocytes (%) (Auto) 25 12-44 % Monocytes (%) (Auto) 8 0-12 % Eosinophils (%) (Auto) 2 0-10 % Basophils (%) (Auto) 1 0-10 % Neutrophils # (Auto) 3.3 1.8-7.8 10^3/uL Lymphocytes # (Auto) 1.2 1.0-4.0 10^3/uL Monocytes # (Auto) 0.4 0.0-1.0 10^3/uL Eosinophils # (Auto) 0.1 0.0-0.3 10^3/uL Basophils # (Auto) 0.0 0.0-0.1 10^3/uL Immature Granulocyte # (Auto) 0.0 0.0-0.1 10^3/uL Sodium Level 141 135-145 MMOL/L Potassium Level 4.0 3.6-5.0 MMOL/L Chloride Level 106 98-107 MMOL/L Carbon Dioxide Level 22 21-32 MMOL/L Anion Gap 13 5-14 MMOL/L Blood Urea Nitrogen 13 7-18 MG/DL Creatinine 0.86 0.60-1.30 MG/DL Estimat Glomerular Filtration Rate > 60 BUN/Creatinine Ratio 15 Glucose Level 127 H 70-105 MG/DL Calcium Level 9.5 8.5-10.1 MG/DL Corrected Calcium 8.5-10.1 MG/DL Magnesium Level 2.1 1.6-2.4 MG/DL Total Bilirubin 0.7 0.1-1.0 MG/DL Aspartate Amino Transf (AST/SGOT) 24 5-34 U/L Alanine Aminotransferase (ALT/SGPT) 13 0-55 U/L Alkaline Phosphatase 55 40-136 U/L Myoglobin 52.9 10.0-92.0 NG/ML Troponin I < 0.028 < 0.028 <0.028 NG/ML B-Type Natriuretic Peptide 36.6 <100.0 PG/ML Total Protein 7.5 6.4-8.2 GM/DL Albumin 4.7 H 3.2-4.5 GM/DL Prothrombin Time 15.9 H 12.2-14.7 SEC INR Comment 1.2 0.8-1.4 Activated Partial Thromboplast Time 24 24-35 SEC My Orders Orders - ANNA CRESPO APRN Cbc With Automated Diff (10/06/20 14:02) Magnesium (10/06/20 14:02) Chest 1 View, Ap/Pa Only (10/06/20 14:02) Ekg Tracing (10/06/20 14:02) Comprehensive Metabolic Panel (10/06/20 14:02) Myoglobin Serum (10/06/20 14:02) Protime With Inr (10/06/20 14:02) Partial Thromboplastin Time (10/06/20 14:02) O2 (10/06/20 14:02) Monitor-Rhythm Ecg Trace Only (10/06/20 14:02) Lipid Panel (10/07/20 06:00) Ed Iv/Invasive Line Start (10/06/20 14:02) BNP (10/06/20 14:02) Troponin I (10/06/20 14:02) Aspirin Chewable Tablet (Baby Aspirin Ch (10/06/20 14:15) Lorazepam Injection (Ativan Injection) (10/06/20 14:15) Meclizine Tablet (Antivert Tablet) (10/06/20 15:30) Troponin I (10/06/20 15:53) Medications Given in ED Current Medications Medications Dose Ordered Sig/Mickie Route Start Time Stop Time Status Last Admin Dose Admin Lorazepam 0.5 mg ONCE PRN IVP 10/06/20 14:15 10/06/20 14:36 0.5 MG Meclizine HCl 25 mg ONCE ONCE PO 10/06/20 15:30 10/06/20 15:31 DC 10/06/20 15:40 25 MG Vital Signs/I&O 10/06/20 10/06/20 14:00 14:00 Temp 36.3 Pulse 62 Resp 24 B/P (MAP) 110/88 (95) Pulse Ox 100 O2 Delivery Room Air Capillary Refill : ECG Initial ECG Impression Date: Oct 06, 2020 Initial ECG Impression Time: 14:27 Initial ECG Rate: 53 Initial ECG Rhythm: Normal Sinus Initial ECG Intervals: Normal Initial ECG Impression: Normal Departure Communication (Admissions) 1530-chest pain is gone but dizziness persists. I will do a repeat troponin at 4:00 which would be 5 hours after the onset of chest pain Impression Primary Impression: Chest pain Qualified Codes: R07.9 - Chest pain, unspecified Disposition: 01 HOME, SELF-CARE Condition: Stable Departure-Patient Inst. Decision time for Depature: 15:30 Referrals: EZEKIEL LERMA MD (PCP/Family) Primary Care Physician Patient Instructions: Chest Pain (DC) ANNA CRESPO APRN Oct 06, 2020 14:12
[2020-10-06] MEDS ORDERED: LORazepam INJ 2 MG/ML (ATIVAN) VIAL IVP PRN (14:15)
[2020-10-06] MEDS ORDERED: ASPIRIN 81 MG CHEW (CHILDREN'S ASA) PO ONE (14:15)
[2020-10-06 14:33] LABS: BASOPHILS % (AUTO) 1 % (0-10); EOSINOPHILS # (AUTO) 0.1 10^3/uL (0.0-0.3); EOSINOPHILS % (AUTO) 2 % (0-10); HEMATOCRIT 40 % (35-52); HEMOGLOBIN 12.8 g/dL (11.5-16.0); LYMPHOCYTES # (AUTO) 1.2 10^3/uL (1.0-4.0); LYMPHOCYTES % (AUTO) 25 % (12-44); MEAN CORPUSCULAR HEMOGLOBIN 31 pg (25-34); MEAN CORPUSCULAR HGB CONC 32 g/dL (32-36); MEAN CORPUSCULAR VOLUME 95 fL (80-99); MEAN PLATELET VOLUME 10.5 fL (9.0-12.2); MONOCYTES # (AUTO) 0.4 10^3/uL (0.0-1.0); MONOCYTES % (AUTO) 8 % (0-12); NEUTROPHILS # (AUTO) 3.3 10^3/uL (1.8-7.8); NEUTROPHILS % (AUTO) 65 % (42-75); PLATELET COUNT 178 10^3/uL (130-400)
[2020-10-06 14:38] LABS: ALBUMIN 4.7 GM/DL (3.2-4.5); CHLORIDE 106 MMOL/L (98-107); SODIUM 141 MMOL/L (135-145)
[2020-10-06 14:40] LABS: CALCIUM 9.5 MG/DL (8.5-10.1)
[2020-10-06 14:41] LABS: GLUCOSE 127 MG/DL (70-105); TOTAL PROTEIN 7.5 GM/DL (6.4-8.2)
--- NOTE | 2020-10-06 14:41 | Diagnostic Imaging Report ---
INDICATION: Chest pain. EXAMINATION: Chest from 10/06/2020 FINDINGS: Single view chest Heart is prominent, pulmonary vasculature is unremarkable. Lungs and pleural spaces clear. No infiltrates or effusions. IMPRESSION: No acute process. Dictated by: Dictated on workstation # [id number]
[2020-10-06 14:42] LABS: CARBON DIOXIDE 22 MMOL/L (21-32)
[2020-10-06 14:43] LABS: BILIRUBIN,TOTAL 0.7 MG/DL (0.1-1.0)
[2020-10-06 14:44] LABS: ALKALINE PHOSPHATASE 55 U/L (40-136); CREATININE SERUM 0.86 MG/DL (0.60-1.30); GFR ESTIMATED > 60
[2020-10-06 14:46] LABS: BUN/CREATININE RATIO 15
[2020-10-06 14:47] LABS: ALANINE AMINOTRANSFERASE 13 U/L (0-55)
[2020-10-06 14:48] LABS: MAGNESIUM 2.1 MG/DL (1.6-2.4)
[2020-10-06 15:24] LABS: INR 1.2 (0.8-1.4); PROTHROMBIN TIME PATIENT 15.9 SEC (12.2-14.7)
[2020-10-06] MEDS ORDERED: MECLIZINE 25 MG (ANTIVERT) TAB PO ONE (15:30)
[2020-10-06 17:20] VITALS: BP 128/81
== END 2020-10-06 17:20 | disposition home or self-care (01) ==
LOC: EDUNIT# 13:57 → ER 13:58
DX: R07.9 Chest pain, unspecified (principal); J44.9 Chronic obstructive pulmonary disease, unspecified; E03.9 Hypothyroidism, unspecified; I48.91 Unspecified atrial fibrillation; Z87.891 Personal history of nicotine dependence; Z79.52 Long term (current) use of systemic steroids; Z79.01 Long term (current) use of anticoagulants; Z79.890 Hormone replacement therapy; Z79.899 Other long term (current) drug therapy
CPT/HCPCS: 36415; 71045; 80053; 83735; 83874; 83880; 84484; 85025; 85610; 85730; 93005; 93041

== ENCOUNTER 2021-04-02 15:23 | Emergency (ER) | payer BC ==
[~2021-04-02] VITALS: Ht 170 cm; Wt 73.0 kg
[2021-04-02 16:13] LABS: BASOPHILS # (AUTO) 0.1 10^3/uL (0.0-0.1); BASOPHILS % (AUTO) 1 % (0-10); EOSINOPHILS # (AUTO) 0.4 10^3/uL (0.0-0.3); EOSINOPHILS % (AUTO) 8 % (0-10); HEMATOCRIT 36 % (35-52); HEMOGLOBIN 11.3 g/dL (11.5-16.0); LYMPHOCYTES % (AUTO) 18 % (12-44); MEAN CORPUSCULAR HEMOGLOBIN 31 pg (25-34); MEAN CORPUSCULAR HGB CONC 32 g/dL (32-36); MEAN CORPUSCULAR VOLUME 99 fL (80-99); MONOCYTES # (AUTO) 0.5 X 10^3 (0.0-1.0); MONOCYTES % (AUTO) 9 % (0-12); NEUTROPHILS # (AUTO) 3.6 X 10^3 (1.8-7.8); NEUTROPHILS % (AUTO) 64 % (42-75); PLATELET COUNT 204 10^3/uL (130-400); WHITE BLOOD COUNT 5.6 10^3/uL (4.3-11.0)
--- NOTE | 2021-04-02 16:20 | ED GI ---
General Chief Complaint: Abdominal/GI Problems Stated Complaint: ABDOMINAL PAIN Nursing Triage Note: AMB TO ED WAS SENT FROM [facility] WITH NO BM FOR 2 WEEKS REPORTS IS HAVNG SOME DIARRHEA. TAKES HYDROCODONE DAILY. HX OF IBS. Source of Information: Patient Exam Limitations: No Limitations History of Present Illness Date Seen by Provider: Apr 02, 2021 Time Seen by Provider: 16:19 Initial Comments To ER from [facility] walk-in clinic with reports of no bowel movement for about 2 to 3 weeks. She has tried several laxatives as well as a fleets enema and increasing her fiber without any relief. She has some rectal pain. She has a history of a brain aneurysm that has been clipped and was told not to strain so she is scared to do that. She is on hydrocodone 10/325 couple of times a day but attributes her constipation to her irritable bowel syndrome. Timing/Duration: Other Severity/Quality: Moderate Location: Generalized Abdomen Activities at Onset: None Associated Symptoms: Nausea/Vomiting Allergies and Home Medications Allergies Coded Allergies: Iodinated Contrast Media (Verified Allergy, Unknown, 07/10/18) diltiazem (Verified Allergy, Unknown, 07/10/18) Patient Home Medication List Home Medication List Reviewed: Yes Apixaban (Eliquis) 5 Mg Tablet, 5 MG PO BID Prescribed by: HOA JORDAN on 01/17/17 1041 Azithromycin (Azithromycin) 250 Mg Tablet, 250 MG PO UD Prescribed by: ANNA CRESPO on 07/10/18 1843 Hydrocodone Bit/Acetaminophen (HYDROcodone/APAP 10/325 TABLET) 1 Each Tablet, 1 TAB PO TID PRN for PAIN-MODERATE, (Reported) Entered as Reported by: SHERRON HILLMAN on 08/06/16 1617 Hydrocodone Bit/Acetaminophen (Lortab 5 Mg Tablet) 1 Tab Tab, 1-2 EACH PO Q6H PRN for PAIN-MODERATE Prescribed by: EVELIA DAILEY on 09/22/18 0457 Levothyroxine Sodium (Levothyroxine Sodium) 200 Mcg Tablet, 400 MCG PO DAILY, (Reported) Entered as Reported by: LISSET GALLOWAY on 01/17/17 0919 Meloxicam (Mobic) 15 Mg Tablet, 15 MG PO DAILY Prescribed by: EVELIA DAILEY on 06/16/20 0130 Metoprolol Succinate (Metoprolol Succinate) 25 Mg Tab.er.24h, 25 MG PO DAILY Prescribed by: HOA JORDAN on 01/17/17 1041 Phenazopyridine HCl (Pyridium) 200 Mg Tablet, 1 TAB PO TID Prescribed by: EVELIA DAILEY on 09/22/18 0457 Prednisone (Prednisone) 20 Mg Tab, 40 MG PO DAILY Prescribed by: ANNA CRESPO on 07/10/18 1843 Review of Systems Review of Systems Constitutional: see HPI EENTM: No Symptoms Reported Respiratory: No Symptoms Reported Cardiovascular: No Symptoms Reported Gastrointestinal: Abdominal Pain, Constipated Genitourinary: No Symptoms Reported Musculoskeletal: no symptoms reported Skin: no symptoms reported Psychiatric/Neurological: No Symptoms Reported Endocrine: No Symptoms Reported Hematologic/Lymphatic: No Symptoms Reported Past Bkzahhn-Mweqsu-Rrbvmy Hx Immunizations Up To Date Tetanus Booster (TDap): Unknown PED Vaccines UTD: No First/Initial COVID19 Vaccinat: June COVID19 Vaccination 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: 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 Seasonal Allergies Seasonal Allergies: No Past Medical History Surgeries: Yes (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) Bladder Surgery, Gallbladder, Hysterectomy, Neurological, Vascular Surgery Respiratory: Yes COPD Cardiac: Yes (CEREBRAL ANEURYSM SURGERY; ON ELIQUIS FOR ATRIAL FIBRILLATION) Aneurysm, Atrial Fibrillation Neurological: Yes (CEREBRAL ANEURYSM SURGERY) Reproductive Disorders: Yes 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, 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, 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 Sexually Transmitted Disease: No HIV/AIDS: No Genitourinary: No Gastrointestinal: Yes Irritable Bowel Musculoskeletal: Yes Fractures Endocrine: Yes (GRAVES DISEASE) Hypothyroidsim HEENT: No Cancer: No Psychosocial: Yes Anxiety Integumentary: No Blood Disorders: No Adverse Reaction/Blood Tranf: No Family Medical History Arthritis 19 FATHER Cancer G8 SISTER 19 MOTHER Cardiovascular disease 19 FATHER Completed stroke 19 FATHER Family history: Cardiovascular disease 19 FATHER Kidney disease 19 FATHER No Family History of: AIDS Abdominal aortic aneurysm [place]'s disease Alcoholism Alzheimer's disease Aphasia Cancer of mouth Cataracts Colon cancer Congenital disease Coronary thrombosis Cystic fibrosis Deafness or hearing loss Dementia Diabetes mellitus Drug abuse Dysphasia Fibrocystic disease of breast Gastroenteritis Glaucoma Headache disorder Hypercholesterolemia Hypertension Infertility Myocardial infarction Neoplasm Not obtainable due to adoption Osteoporosis Parkinson's disease Prostate cancer Respiratory disorder Seizure disorder Severe allergy Thyroid disease Tuberculosis Visual disorder Cancer, CVA, Hypertension, Renal Disease Physical Exam Vital Signs Vital Signs - First Documented 04/02/21 15:49 Temp 36.0 Pulse 66 Resp 18 B/P (MAP) 145/89 (107) Pulse Ox 93 O2 Delivery Room Air Capillary Refill : Less Than 3 Seconds Height/Weight/BMI Height: 5'7.00" Weight: 183lbs. 0.0oz. 83.405177an; 25.00 BMI Method:Stated General Appearance: WD/WN, no apparent distress HEENT: PERRL/EOMI, normal ENT inspection Respiratory: no respiratory distress, no accessory muscle use Cardiovascular: regular rate, rhythm, no murmur Gastrointestinal: normal bowel sounds, soft, tenderness Extremities: normal range of motion, non-tender Neurologic/Psychiatric: alert, normal mood/affect, oriented x 3 Skin: normal color, warm/dry Progress/Results/Core Measures Results/Orders Lab Results Laboratory Tests Test 04/02/21 15:59 Range/Units White Blood Count 5.6 4.3-11.0 10^3/uL Red Blood Count 3.60 L 3.80-5.11 10^6/uL Hemoglobin 11.3 L 11.5-16.0 g/dL Hematocrit 36 35-52 % Mean Corpuscular Volume 99 80-99 fL Mean Corpuscular Hemoglobin 31 25-34 pg Mean Corpuscular Hemoglobin Concent 32 32-36 g/dL Red Cell Distribution Width 12.2 10.0-14.5 % Platelet Count 204 130-400 10^3/uL Mean Platelet Volume 10.0 9.0-12.2 fL Immature Granulocyte % (Auto) 1 % Neutrophils (%) (Auto) 64 42-75 % Lymphocytes (%) (Auto) 18 12-44 % Monocytes (%) (Auto) 9 0-12 % Eosinophils (%) (Auto) 8 0-10 % Basophils (%) (Auto) 1 0-10 % Neutrophils # (Auto) 3.6 1.8-7.8 X 10^3 Lymphocytes # (Auto) 1.0 1.0-4.0 X 10^3 Monocytes # (Auto) 0.5 0.0-1.0 X 10^3 Eosinophils # (Auto) 0.4 H 0.0-0.3 10^3/uL Basophils # (Auto) 0.1 0.0-0.1 10^3/uL Immature Granulocyte # (Auto) 0.0 0.0-0.1 10^3/uL Sodium Level 142 135-145 MMOL/L Potassium Level 4.0 3.6-5.0 MMOL/L Chloride Level 106 98-107 MMOL/L Carbon Dioxide Level 27 21-32 MMOL/L Anion Gap 9 5-14 MMOL/L Blood Urea Nitrogen 10 7-18 MG/DL Creatinine 0.84 0.60-1.30 MG/DL Estimat Glomerular Filtration Rate 69 BUN/Creatinine Ratio 12 Glucose Level 101 70-105 MG/DL Calcium Level 9.0 8.5-10.1 MG/DL Corrected Calcium 9.1 8.5-10.1 MG/DL Total Bilirubin 0.4 0.1-1.0 MG/DL Aspartate Amino Transf (AST/SGOT) 17 5-34 U/L Alanine Aminotransferase (ALT/SGPT) 9 0-55 U/L Alkaline Phosphatase 61 40-136 U/L Total Protein 6.7 6.4-8.2 GM/DL Albumin 3.9 3.2-4.5 GM/DL My Orders Orders - ANNA CRESPO APRN Cbc With Automated Diff (04/02/21 15:55) Comprehensive Metabolic Panel (04/02/21 15:55) Ed Iv/Invasive Line Start (04/02/21 15:55) Ct Abdomen/Pelvis Wo (04/02/21 15:55) Na Phos/Na Biphos Enema (Fleet Enema [place] (04/02/21 16:30) Methylnaltrexone Injection (Relistor Inj (04/02/21 16:30) Medications Given in ED Current Medications Medications Dose Ordered Sig/Mickie Route Start Time Stop Time Status Last Admin Dose Admin Methylnaltrexone [place] 12 mg ONCE ONCE SQ 04/02/21 16:30 04/02/21 16:31 DC 04/02/21 16:46 12 MG Sodium Biphosphate/ Sodium Phosphate 1 ea ONCE ONCE [place] 04/02/21 16:30 04/02/21 16:31 DC 04/02/21 16:46 1 EA Vital Signs/I&O 04/02/21 15:49 Temp 36.0 Pulse 66 Resp 18 B/P (MAP) 145/89 (107) Pulse Ox 93 O2 Delivery Room Air Blood Pressure Mean: 107 Departure Impression Primary Impression: Constipated Disposition: 01 HOME, SELF-CARE Condition: Stable Departure-Patient Inst. Decision time for Depature: 16:30 Referrals: FLORENTIN,EZEKIEL N MD (PCP/Family) Primary Care Physician Patient Instructions: Dealing with Constipation from the Drugs You Take Add. Discharge Instructions: 1. Would be a good idea to use MiraLAX 1 capful daily for the next several days as well as increasing water intake. Return to ER for any concerns. All discharge instructions reviewed with patient and/or family. Voiced understanding. ANNA CRESPO RN LONG TERM CARE Apr 02, 2021 16:20
[2021-04-02] MEDS ORDERED: FLEET ENEMA ADULT 1 EA BTL PR ONE (16:30)
[2021-04-02] MEDS ORDERED: METHYLNALTREXONE 12 MG/0.6 ML (RELISTOR) VIAL SQ ONE (16:30)
--- NOTE | 2021-04-02 16:31 | Diagnostic Imaging Report ---
PROCEDURE: CT abdomen and pelvis without contrast. TECHNIQUE: Multiple contiguous axial images were obtained through the abdomen and pelvis without the use of intravenous contrast. Auto Exposure Controls were utilized during the CT exam to meet ALARA standards for radiation dose reduction. INDICATION: Abdominal pain. COMPARISON: 09/22/2018. FINDINGS: The unenhanced images of the liver, spleen, pancreas, and adrenal glands are unremarkable. The gallbladder is surgically absent. The kidneys are also unremarkable on this noncontrasted study. No free fluid or pathologically enlarged adenopathy is identified. There is a moderate to large amount of stool throughout the colon. There is questionable mild mural thickening at the rectum. IMPRESSION: Findings suggest constipation. There may be mural thickening at the rectum which may indicate proctitis. Otherwise, no acute abnormality is seen. Dictated by: Dictated on workstation # [id number]
[2021-04-02 16:36] LABS: ALBUMIN 3.9 GM/DL (3.2-4.5); BILIRUBIN,TOTAL 0.4 MG/DL (0.1-1.0); CREATININE SERUM 0.84 MG/DL (0.60-1.30); TOTAL PROTEIN 6.7 GM/DL (6.4-8.2)
[2021-04-02 17:21] VITALS: BP 143/94
== END 2021-04-02 17:21 | disposition home or self-care (01) ==
LOC: EDUNIT# 15:23 → ER 15:25
DX: K59.00 Constipation, unspecified (principal); I48.91 Unspecified atrial fibrillation; E03.9 Hypothyroidism, unspecified; E05.00 Thyrotoxicosis with diffuse goiter without thyrotoxic crisis or storm; K58.9 Irritable bowel syndrome, unspecified; J44.9 Chronic obstructive pulmonary disease, unspecified; Z90.710 Acquired absence of both cervix and uterus; Z79.891 Long term (current) use of opiate analgesic; Z79.01 Long term (current) use of anticoagulants; Z79.52 Long term (current) use of systemic steroids; Z79.890 Hormone replacement therapy; Z79.899 Other long term (current) drug therapy
CPT/HCPCS: 36415; 74176; 80053; 85025

== ENCOUNTER → 2021-06-18 | Outpatient (CLI) | payer BC | LOC: CARD 09:30 | PROVIDERS: ATTEND Nurse Practitioner Family | DX: I48.0 Paroxysmal atrial fibrillation (principal) | CPT/HCPCS: 93306 ==

== ENCOUNTER → 2021-08-05 | Outpatient (CLI) | payer BC ==
[~2021-08-05] VITALS: Ht 170 cm; Wt 72.0 kg
[~2021-08-05] MED LIST changes: +CATHETER FLUSH 10 ML SYR IVP PRN; +REGADENOSON 0.4 MG/5 ML SYR (LEXISCAN) IV ONE
[2021-08-05 13:49] VITALS: BP 144/92
--- NOTE | 2021-08-05 15:44 | STRESS TEST ---
DATE OF SERVICE: 08/05/2021 RESTING AND POST REGADENOSON TECHNETIUM-99M TETROFOSMIN SPECT CT IMAGING ORDERING PHYSICIAN: Alicia Block APRN PRIMARY PHYSICIAN: Dr. Walker. CLINICAL DIAGNOSIS: Chest discomfort. Baseline images were carried out after injection of 10.18 mCi of technetium-99m Tetrofosmin. This was followed by 0.4 mg regadenoson and 30.4 mCi of technetium-99m Tetrofosmin for stress imaging. The electrocardiogram showed sinus rhythm with occasional premature ventricular contractions. There is subtle, nonspecific ST abnormality that did not change during the study. She tolerated the procedure well. Review of images at rest and following stress does not indicate any distinct perfusion defects consistent with significant myocardial ischemia or infarction. Gated images show normal global left ventricular systolic function with normal regional wall motion. Left ventricular ejection fraction is calculated to be 65%. CONCLUSIONS: 1. No evidence of any significant myocardial ischemia or infarction on this study. 2. Normal regional wall motion. 3. Normal global left ventricular systolic function with a calculated ejection fraction of 65%. Job ID: [id number] DocumentID: [id number] Dictated Date: 08/05/2021 15:34:17 Chicken Cutter Date: 08/05/2021 15:43:43 Dictated By: DILAN HENNING MD, MA, FACP, FACC,
== END ==
LOC: CARD 12:30
PROVIDERS: ATTEND Nurse Practitioner Family
DX: R07.89 Other chest pain (principal); R00.2 Palpitations
CPT/HCPCS: 78452; 93017; 93225; 93226; A9502

== ENCOUNTER 2021-08-19 10:00 | Day surgery (SDC) | payer BC ==
[2021-08-19] VITALS (10 sets, daily range): BP systolic 103–150; BP diastolic 73–87
[~2021-08-19] VITALS: Ht 170.2 cm; Wt 72.2 kg
[2021-08-19 08:40] LABS: HEMATOCRIT 42 % (35-52); HEMOGLOBIN 13.1 g/dL (11.5-16.0); MEAN CORPUSCULAR HEMOGLOBIN 31 pg (25-34); MEAN CORPUSCULAR HGB CONC 31 g/dL (32-36); MEAN CORPUSCULAR VOLUME 98 fL (80-99); PLATELET COUNT 166 10^3/uL (130-400); WHITE BLOOD COUNT 4.4 10^3/uL (4.3-11.0)
[2021-08-19 08:43] LABS: ALBUMIN 4.4 GM/DL (3.2-4.5)
[2021-08-19 08:44] LABS: CALCIUM 9.2 MG/DL (8.5-10.1)
[2021-08-19 08:46] LABS: TOTAL PROTEIN 7.1 GM/DL (6.4-8.2)
[2021-08-19 08:47] LABS: INR 1.1 (0.8-1.4); PROTHROMBIN TIME PATIENT 14.1 SEC (12.2-14.7)
[2021-08-19 08:48] LABS: BILIRUBIN,TOTAL 0.7 MG/DL (0.1-1.0)
[2021-08-19 08:49] LABS: CREATININE SERUM 0.8 MG/DL (0.60-1.30)
[~2021-08-19 10:00] MED LIST changes: +ALEN10TA8 PO; -CATHETER FLUSH 10 ML SYR IVP PRN; +CETI10TA17 PO; +FLUT9.9S NSEACH; +HEParin (CATH LAB) 2,000 ML IV ONE; +LIDOCAINE 1% INJ 20 ML VIAL ONE; +METO50TA7 PO; +NS IV 1000 ML 1,000 ML IV SCH; -REGADENOSON 0.4 MG/5 ML SYR (LEXISCAN) IV ONE
[2021-08-19] MEDS ORDERED: methylPREDNISolone 125 MG (Solu-MEDROL) VIAL ONE (11:08)
[2021-08-19] MEDS ORDERED: fentaNYL INJ 100 MCG/2 ML AMP ONE (11:08)
[2021-08-19] MEDS ORDERED: diphenhydrAMINE 50 MG/ML INJ (BENADRYL) ONE (11:08)
[2021-08-19] MEDS ORDERED: MIDAZOLAM 5 MG/5 ML (VERSED) VIAL ONE (11:08)
--- NOTE | 2021-08-19 11:53 | Cardiac Procedure Note-CS/ASA ---
Pre-Procedure Note Pre-Op Procedure Note H&P Reviewed The H&P was reviewed, patient examined and no changes noted. Date H&P Reviewed: August 19, 2021 Time H&P Reviewed: 11:00 Conscious Sedation Pre-Proced Time 11:00 ASA Score 3 For ASA 3 and 4: Consider anesthesia and medical clearance. Also, for patients with a history of failed moderate sedation consider anesthesia. Airway Lungs Heart ASA score ASA 1: a normal healthy patient ASA 2: a patient with a mild systemic disease (mid diabetes, controlled hypertension, obesity ASA 3: a patient with a severe systemic disease that limits activity (angina, COPD, prior Myocardial infarction) ASA 4: a patient with an incapacitating disease that is a constant threat to life (CHF, renal failure) ASA 5: a moribund patient not expected to survive 24 hrs. (ruptured aneurysm) ASA 6: a declared brain- patient whose organs are being harvested. For emergent operations, add the letter E after the classification Mallampati Classification Grade 2 Sedation Plan Analgesia, Amnesia, Plan communicated to team members, Discussed options with patient/fam, Discussed risks with patient/fam The patient is an appropriate candidate to undergo the planned procedure, sedation, and anesthesia. The patient immediately re-assessed prior to indication. DILAN HENNING MD FACP FAC CCDS August 19, 2021 11:53
[2021-08-19] MEDS ORDERED: ATOR20TA66 PO (11:57)
--- NOTE | 2021-08-19 11:58 | Discharge Inst-Cardiology ---
Discharge Inst-Cardiac Discharge Medications New Medications: Atorvastatin Calcium (Atorvastatin Calcium) 20 Mg Tablet 20 MG PO DAILY, #30 TAB 3 Refills Continued Medications: Alendronate Sodium (Alendronate Sodium) 10 Mg Tablet 10 MG PO DAILY, TAB Apixaban (Eliquis) 5 Mg Tablet 5 MG PO BID, TAB Cetirizine HCl (Cetirizine HCl) 10 Mg Tablet 10 MG PO DAILY, TAB Fluticasone Propionate (Flonase Allergy Relief) 50 Mcg/Actuation [place].susp 1 SPRAY NSEACH DAILY, #1 EACH 1 SPRAY EACH NARE DAILY Hydrocodone Bit/Acetaminophen (HYDROcodone/APAP 10/325 TABLET) 1 Each Tablet 1 TAB PO TID PRN for PAIN-MODERATE Levothyroxine Sodium (Levothyroxine Sodium) 200 Mcg Tablet 200 MCG PO DAILY, TAB Metoprolol Succinate (Metoprolol Succinate) 50 Mg Tab.er.24h 50 MG PO DAILY, TAB Phenazopyridine HCl (Pyridium) 200 Mg Tablet 1 TAB PO TID for BLADDER DISCOMFORT, #15 TAB DILAN HENNING MD FACP FAC CCDS August 19, 2021 11:57
--- NOTE | 2021-08-19 11:58 | Discharge Inst-Post CATH ---
Discharge Inst-CATH/EP Post Cardiac Cath/EP D/C Inst Follow Up/Plan F/u with Dr Mckeon next week ACTIVITY * Go Home directly and rest. * Limit activity of the leg (or wrist if it was used) for 7 days including aerobics, swimming, jogging, bicycling, etc. * Restrict stair-climbing for 7 days if possible, if not, climb up with your no n-cath leg, then bring together on the same step. * Avoid lifting, pushing, pulling or excessive movement of the affected ext remity for 7 days. * Customary sexual activity may be resumed after 2 days-use caution not to use a position that strains or causes pain to the affected extremity. * No driving for 24 hours. * NO SMOKING. * Avoid straining for bowel movements for 7 days. * Gentle walking on level ground is allowed. * Returning to work will depend on the type of procedure and the results. Your doctor will discuss this with you. CALL YOUR DOCTOR FOR ANY OF THE FOLLOWING: *If bleeding from the puncture site occurs- Apply gentle pressure to site with clean cloth and call your doctor or EMS. * If a knot or lump forms under the skin, increases in size, or causes pain. * If bruising appears to be worsening or moving further down your leg instead of disappearing. * Temperature above 101 F. CARE OF YOUR GROIN INCISION; * Bruising or purple discoloration of the skin near the puncture site is common. * You may shower only, no bathtub bathing for 5 days. Be careful to avoid slipping as your leg may feel stiff. * If a closure device was used on your femoral artery, please see the attached guide regarding care of the device and your leg. * Leave dressing on FOR 24 hours. CARE OF YOUR WRIST INCISION; * Bruising or purple discoloration of the skin near the puncture site is common. * You may shower. * DO NOT submerge wrist. * Leave dressing on FOR 24 hours. DILAN MCKEON MD FACP FAC CCDS August 19, 2021 11:58
[2021-08-19] MEDS ORDERED: NS IV 1000 ML 1,000 ML IV SCH (12:00)
[2021-08-19] MEDS ORDERED: PATIENT MAY USE OWN MEDS, ALL PO SCH (12:00)
--- NOTE | 2021-08-19 12:03 | CARDIAC CATHETERIZATION ---
DATE OF SERVICE: 08/19/2021 CARDIAC CATHETERIZATION REPORT INDICATIONS: The patient is a 60-year-old lady who has had chest discomfort, palpitations and shortness of breath. A Holter monitor study carried out in 07/2021 showed frequent premature ventricular contractions and a brief run of nonsustained ventricular tachycardia. Accordingly, cardiac catheterization was recommended to evaluate for coronary artery disease. Informed consent was obtained. DESCRIPTION OF PROCEDURE: She was brought to the cardiac catheterization laboratory in a fasting state. Right groin was prepared and draped in the usual sterile fashion. Lidocaine 1% was used for local anesthesia. Modified Seldinger technique was used to advance a 5-Welsh sheath into the right femoral artery, 5-Welsh JL4 catheter for left coronary angiography, 5-Welsh JR4 catheter for right coronary angiography, 5-Welsh pigtail catheter was used for left heart catheterization and left ventricular angiography. Angiography of the right femoral artery was carried out through the sheath. Mynx was used to achieve hemostasis. She tolerated the procedure well. HEMODYNAMICS: Left ventricular end-diastolic pressure following coronary angiography was 10 mmHg. There was no significant pressure gradient on pullback across the aortic valve. LEFT VENTRICULAR ANGIOGRAPHY: Left ventricular angiography was carried out in the right anterior oblique projection. Global left ventricular systolic function is normal. No regional wall motion abnormalities are seen in this view. Left ventricular ejection fraction is approximately 60%. CORONARY ANGIOGRAPHY: Left main coronary artery, left anterior descending artery, left circumflex artery, right coronary artery do not exhibit any angiographically significant disease. Right coronary artery is dominant. CONCLUSIONS: 1. No angiographically significant coronary artery disease. 2. Normal global left ventricular systolic function with ejection fraction approximately 60%. 3. Normal left ventricular end-diastolic pressure. Job ID: [id number] DocumentID: [id number] Dictated Date: 08/19/2021 11:49:45 Biology Laboratory Assistant Date: 08/19/2021 12:02:07 Dictated By: DILAN HENNING MD, MA, FACP, FACC,
== END 2021-08-19 14:45 | disposition home or self-care (01) ==
LOC: CATH 10:00 → SDC 12:07 → CATH 14:45
PROVIDERS: ATTEND Internal Medicine Cardiovascular Disease
DX: R07.89 Other chest pain (principal); R06.02 Shortness of breath; R00.2 Palpitations; R60.0 Localized edema; I48.0 Paroxysmal atrial fibrillation; I95.1 Orthostatic hypotension; I65.23 Occlusion and stenosis of bilateral carotid arteries; E03.9 Hypothyroidism, unspecified; Z79.890 Hormone replacement therapy; Z87.891 Personal history of nicotine dependence; Z79.01 Long term (current) use of anticoagulants; Z79.899 Other long term (current) drug therapy
CPT/HCPCS: 80053; 80061; 85027; 85610; 85730; 87081; 93005; 93458; C1760; C1894; 36415; 36430

== ENCOUNTER 2022-01-28 13:07 | Emergency (ER) | payer BC ==
[~2022-01-28] VITALS: Ht 170 cm; Wt 70.0 kg
[~2022-01-28 13:07] MED LIST changes: +ATOR20TA66 PO; -HEParin (CATH LAB) 2,000 ML IV ONE; -LIDOCAINE 1% INJ 20 ML VIAL ONE; -NS IV 1000 ML 1,000 ML IV SCH
[2022-01-28 14:29] VITALS: BP 152/95
[2022-01-28] MEDS ORDERED: ONDANSETRON 4 MG/2 ML (SDV) Z0FRAN IVP ONE (14:30)
[2022-01-28 15:03] LABS: CLARITY,URINE SL CLOUDY; COLOR,URINE BROWN; GLUCOSE, URINE (UA) TRACE (NEGATIVE); KETONES,URINE 1+ (NEGATIVE); LEUKOCYTE ESTERASE ,URINE TRACE (NEGATIVE); NITRITE,URINE POSITIVE (NEGATIVE); PH,URINE 8.5 (5-9); PROTEIN,URINE 1+ (NEGATIVE)
--- NOTE | 2022-01-28 15:07 | ED Abdominal Pain ---
General Chief Complaint: Abdominal/GI Problems Stated Complaint: ABD PAIN Nursing Triage Note: Patient states she has had difficulty having a bowel movement for several days. She advised minimal stool and everytime she tries to have a bowel movement she vomits. Patient states she has vomitted x 2 today. Source of Information: Patient Exam Limitations: No Limitations History of Present Illness Date Seen by Provider: Jan 28, 2022 Time Seen by Provider: 14:49 Initial Comments This is a 61-year-old female who presented to the ER via POV for some concerns of constipation the past several days. States that she feels like she is completely "backed up". She did have a small amount of diarrhea this morning, green in color. Has tried Miralax, Linzess, Laxatives in past with minimal improvement. Today has vomited twice, no blood or coffee ground emesis. No fever, chills, cough, chest pain, shortness of breath. Allergies and Home Medications Allergies Coded Allergies: Iodinated Contrast Media (Verified Allergy, Unknown, 07/10/18) diltiazem (Verified Allergy, Unknown, 07/10/18) Patient Home Medication List Home Medication List Reviewed: Yes Alendronate Sodium (Alendronate Sodium) 10 Mg Tablet, 10 MG PO DAILY, (Reported) Entered as Reported by: ESTEFANIA CAMPO on 08/19/21 0850 Apixaban (Eliquis) 5 Mg Tablet, 5 MG PO BID, (Reported) Entered as Reported by: ESTEFANIA CAMPO on 08/19/21 0850 Atorvastatin Calcium (Atorvastatin Calcium) 20 Mg Tablet, 20 MG PO DAILY Prescribed by: DILAN HENNING on 08/19/21 1157 Cetirizine HCl (Cetirizine HCl) 10 Mg Tablet, 10 MG PO DAILY, (Reported) Entered as Reported by: ESTEFANIA CAMPO on 08/19/21 0850 Ciprofloxacin HCl (Ciprofloxacin HCl) 500 Mg Tablet, 500 MG PO BID Prescribed by: RAZA SALVADOR on 01/28/22 1550 Fluticasone Propionate (Flonase Allergy Relief) 50 Mcg/Actuation [place].susp, 1 SPRAY NSEACH DAILY, (Reported) Entered as Reported by: ESTEFANIA CAMPO on 08/19/21 0850 Hydrocodone Bit/Acetaminophen (HYDROcodone/APAP 10/325 TABLET) 1 Each Tablet, 1 TAB PO TID PRN for PAIN-MODERATE, (Reported) Entered as Reported by: SHERRON HILLMAN on 08/06/16 1617 Levothyroxine Sodium (Levothyroxine Sodium) 200 Mcg Tablet, 200 MCG PO DAILY, (Reported) Entered as Reported by: ESTEFANIA CAMPO on 08/19/21 0850 Metoprolol Succinate (Metoprolol Succinate) 50 Mg Tab.er.24h, 50 MG PO DAILY, (Reported) Entered as Reported by: ESTEFANIA CAMPO on 08/19/21 0850 Ondansetron (Ondansetron Odt) 4 Mg Tab.rapdis, 4 MG PO Q6H PRN for NAUSEA /VOMITING Prescribed by: RAZA SALVADOR on 01/28/22 1550 Phenazopyridine HCl (Pyridium) 200 Mg Tablet, 1 TAB PO TID Prescribed by: EVELIA DAILEY on 09/22/18 0457 Review of Systems Review of Systems Constitutional: see HPI Past Bwlalnq-Fmyhbt-Buzskp Hx Patient Social History Tobacco Use?: No Substance use?: No Alcohol Use?: No Immunizations Up To Date Tetanus Booster (TDap): Unknown PED Vaccines UTD: No First/Initial COVID19 Vaccinat: June COVID19 Vaccination Butch: July COVID19 Vaccination Date: MAR Seasonal Allergies Seasonal Allergies: No Past Medical History Surgeries: Yes (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) Bladder Surgery, Gallbladder, Hysterectomy, Neurological, Vascular Surgery Respiratory: Yes COPD Cardiac: Yes (CEREBRAL ANEURYSM SURGERY; ON ELIQUIS FOR ATRIAL FIBRILLATION) Aneurysm, Atrial Fibrillation Neurological: Yes (CEREBRAL ANEURYSM SURGERY) Reproductive Disorders: Yes 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, Menstrual Problems 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, 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 Sexually Transmitted Disease: No HIV/AIDS: No Genitourinary: No Gastrointestinal: Yes Irritable Bowel Musculoskeletal: Yes Fractures Endocrine: Yes (GRAVES DISEASE) Hypothyroidsim HEENT: No Cancer: No Psychosocial: Yes Anxiety Integumentary: No Blood Disorders: No Adverse Reaction/Blood Tranf: No Family Medical History Arthritis 19 FATHER Cancer G8 SISTER 19 MOTHER Cardiovascular disease 19 FATHER Completed stroke 19 FATHER Family history: Cardiovascular disease 19 FATHER Kidney disease 19 FATHER No Family History of: AIDS Abdominal aortic aneurysm Miguel Ángel's disease Alcoholism Alzheimer's disease Aphasia Cancer of mouth Cataracts Colon cancer Congenital disease Coronary thrombosis Cystic fibrosis Deafness or hearing loss Dementia Diabetes mellitus Drug abuse Dysphasia Fibrocystic disease of breast Gastroenteritis Glaucoma Headache disorder Hypercholesterolemia Hypertension Infertility Myocardial infarction Neoplasm Not obtainable due to adoption Osteoporosis Parkinson's disease Prostate cancer Respiratory disorder Seizure disorder Severe allergy Thyroid disease Tuberculosis Visual disorder Cancer, CVA, Hypertension, Renal Disease Physical Exam Vital Signs Vital Signs - First Documented 01/28/22 14:29 Temp 35.4 Pulse 84 Resp 18 B/P (MAP) 152/95 (114) Pulse Ox 99 O2 Delivery Room Air Capillary Refill : Less Than 3 Seconds Height/Weight/BMI Height: 5'7.00" Weight: 183lbs. 0.0oz. 83.279556fs; 24.00 BMI Method:Stated General Appearance: WD/WN, no apparent distress HEENT: PERRL/EOMI, normal ENT inspection, pharynx normal Neck: non-tender, full range of motion, normal inspection Respiratory: chest non-tender, lungs clear, normal breath sounds, no respiratory distress Cardiovascular: regular rate, rhythm, no murmur Gastrointestinal: normal bowel sounds, soft; No distended, No guarding, No rebound, No tenderness Extremities: normal range of motion, normal inspection Back: normal inspection Neurologic/Psychiatric: no motor/sensory deficits, alert, normal mood/affect, oriented x 3 Skin: normal color, warm/dry Progress/Results/Core Measures Results/Orders Lab Results Laboratory Tests Test 01/28/22 14:56 01/28/22 15:01 Range/Units Urine Color BROWN H Urine Clarity SL CLOUDY Urine pH 8.5 5-9 Urine Specific [place] 1.015 L 1.016-1.022 Urine Protein 1+ H NEGATIVE Urine Glucose (UA) TRACE H NEGATIVE Urine Ketones 1+ H NEGATIVE Urine Nitrite POSITIVE H NEGATIVE Urine Bilirubin NEGATIVE NEGATIVE Urine Urobilinogen 4.0 < = 1.0 MG/DL Urine Leukocyte Esterase TRACE H NEGATIVE Urine RBC (Auto) NEGATIVE NEGATIVE Urine RBC RARE /HPF Urine WBC 5-10 H /HPF Urine Squamous Epithelial Cells 5-10 /HPF Urine Renal Epithelial Cells RARE /HPF Urine Crystals PRESENT H /LPF Urine Amorphous Sediment FEW RANDY PHOSPHATE H /LPF Urine Bacteria MODERATE H /HPF Urine Casts NONE /LPF Urine Mucus NEGATIVE /LPF Urine Culture Indicated YES White Blood Count 6.0 4.3-11.0 10^3/uL Red Blood Count 4.37 3.80-5.11 10^6/uL Hemoglobin 13.8 11.5-16.0 g/dL Hematocrit 43 35-52 % Mean Corpuscular Volume 99 80-99 fL Mean Corpuscular Hemoglobin 32 25-34 pg Mean Corpuscular Hemoglobin Concent 32 32-36 g/dL Red Cell Distribution Width 13.1 10.0-14.5 % Platelet Count 188 130-400 10^3/uL Mean Platelet Volume 10.1 9.0-12.2 fL Immature Granulocyte % (Auto) 1 % Neutrophils (%) (Auto) 73 42-75 % Lymphocytes (%) (Auto) 19 12-44 % Monocytes (%) (Auto) 5 0-12 % Eosinophils (%) (Auto) 2 0-10 % Basophils (%) (Auto) 1 0-10 % Neutrophils # (Auto) 4.3 1.8-7.8 X 10^3 Lymphocytes # (Auto) 1.1 1.0-4.0 X 10^3 Monocytes # (Auto) 0.3 0.0-1.0 X 10^3 Eosinophils # (Auto) 0.1 0.0-0.3 10^3/uL Basophils # (Auto) 0.0 0.0-0.1 10^3/uL Immature Granulocyte # (Auto) 0.0 0.0-0.1 10^3/uL Sodium Level 140 135-145 MMOL/L Potassium Level 4.4 3.6-5.0 MMOL/L Chloride Level 105 98-107 MMOL/L Carbon Dioxide Level 24 21-32 MMOL/L Anion Gap 11 5-14 MMOL/L Blood Urea Nitrogen 14 7-18 MG/DL Creatinine 1.16 0.60-1.30 MG/DL Estimat Glomerular Filtration Rate 54 BUN/Creatinine Ratio 12 Glucose Level 117 H 70-105 MG/DL Calcium Level 9.6 8.5-10.1 MG/DL Corrected Calcium 8.5-10.1 MG/DL Total Bilirubin 1.1 H 0.1-1.0 MG/DL Aspartate Amino Transf (AST/SGOT) 35 H 5-34 U/L Alanine Aminotransferase (ALT/SGPT) 12 0-55 U/L Alkaline Phosphatase 46 40-136 U/L C-Reactive Protein High Sensitivity 0.06 0.00-0.50 MG/DL Total Protein 8.0 6.4-8.2 GM/DL Albumin 5.0 H 3.2-4.5 GM/DL My Orders Orders - RAZA SALVADOR APRN Ua Culture If Indicated (01/28/22 13:09) Ed Iv/Invasive Line Start (01/28/22 14:22) Ondansetron Injection (Zofran Injectio (01/28/22 14:30) Cbc With Automated Diff (01/28/22 15:05) Comprehensive Metabolic Panel (01/28/22 15:05) Hs C Reactive Protein (01/28/22 15:05) Ct Abdomen/Pelvis Wo (01/28/22 15:05) Urine Culture (01/28/22 14:56) Ciprofloxacin Tablet (Cipro Tablet) (01/28/22 16:00) Medications Given in ED Vital Signs/I&O 01/28/22 01/28/22 14:29 16:08 Temp 35.4 Pulse 84 75 Resp 18 18 B/P (MAP) 152/95 (114) Pulse Ox 99 98 O2 Delivery Room Air Room Air Blood Pressure Mean: 114 Progress Progress Note : Progress Note Patient examined in no acute distress. Orders given for Zofran upon arrival. She is still passing gas at this time. Basic labs, UA, CT abdomen pelvis without contrast ordered. Pain comes in waves, at this time does not have any pain and denies need for any additional pharmacological pain management. CT scan shows suspicion for left-sided colitis through the mid sigmoid, no obstruction. Basic labs unremarkable, positive for UTI. Will cover colitis/uti with Ciprofloxacin. Nausea/vomiting improved at time of discharge. Discharge POC reviewed and she is agreeable with plan. Diagnostic Imaging Diagonstic Imaging: CT Comments [facility], [place] NAME: LUCERO HORNER [facility] REC#: [id number] PT STATUS: DEP ER : 1960 PHYSICIAN: RAZA SALVADOR APRN ADMIT DATE: 01/28/22/ER Signed Date of Exam:01/28/22 CT ABDOMEN/PELVIS WO PROCEDURE: CT abdomen and pelvis without contrast. TECHNIQUE: Multiple contiguous axial images were obtained through the abdomen and pelvis without the use of intravenous contrast. Auto Exposure Controls were utilized during the CT exam to meet ALARA standards for radiation dose reduction. INDICATION: Difficulty with bowel movements, minimal stool, also having some vomiting. EXAMINATION: Noncontrasted abdominal pelvic CT was performed. FINDINGS: There is a mildly elevated colonic fecal load diffusely but no evidence for rectal or sigmoidal impaction. While evaluation of bowel wall is limited by the intraluminal stool, and the absence of contrast, there is a cyst a suggestion of diffuse large bowel wall thickening compatible with nonspecific colitis. This most notably involves its descending and distal transverse component. Along the left colon there is some equivocal very mild stranding and induration of the pericolonic fat. Distally this extends through at least the mid sigmoid colon level. There is no pneumatosis. No focal soft tissue thickening to suggest a discrete mass. Unobstructed small bowel appears normal. There is no pneumatosis. There is no free gas. The liver is unremarkable. The gallbladder is surgically absent. Bile ducts are nondilated. The spleen, adrenals and pancreas are unremarkable. The unobstructed kidneys appear normal. IMPRESSION: 1. Mildly elevated fecal load and suspicion for left-sided colitis through the mid sigmoid. No pneumatosis, free air or gas. No small bowel dilatation. 2. No other potential acute appearing abnormality. 3. Nonaneurysmal aorta with no calcified atherosclerotic burden. Dictated by: Dictated on workstation # [id number] Dict: 01/28/22 1526 Trans: 01/28/221701 [facility] [id number] Interpreted by: MICHAEL GARDNER Electronically signed by: MICHAEL GARDNER 01/28/221701 Departure Impression Primary Impression: Colitis Additional Impression: UTI (urinary tract infection) Disposition: 01 HOME, SELF-CARE Condition: Improved Departure-Patient Inst. Decision time for Depature: 15:48 Referrals: EZEKIEL LERMA MD (PCP/Family) Primary Care Physician Patient Instructions: Colitis (DC) Add. Discharge Instructions: Plan: 1. Start with clear liquid diet until you are no longer vomiting, advance slowly as tolerated. Trial high-fiber foods. 2. Take antibiotics twice a day as directed and complete full course he may begin to feel better. 3. Make sure you are drinking plenty of fluids to stay hydrated. 4. Recommend following up with Dr. Lerma or Dr. Syed if you have persistent issues with your bowels. 5. Return to the ER for any new, concerning, worsening symptoms. 7. You can take Zofran 4 mg by mouth every 6 hours as needed for nausea. All discharge instructions reviewed with patient and/or family. Voiced understanding. Scripts Ondansetron (Ondansetron Odt) 4 Mg Tab.rapdis 4 MG PO Q6H PRN for NAUSEA/VOMITING, #8 TAB 0 Refills Prov: RAZA SALVADOR APRN 01/28/22 Ciprofloxacin HCl (Ciprofloxacin HCl) 500 Mg Tablet 500 MG PO BID for 7 Days, #14 TAB Prov: RAZA SALVADOR APRN 01/28/22 RAZA SALVADOR APRN Jan 28, 2022 15:07
[2022-01-28 15:19] LABS: BASOPHILS % (AUTO) 1 % (0-10); EOSINOPHILS # (AUTO) 0.1 10^3/uL (0.0-0.3); EOSINOPHILS % (AUTO) 2 % (0-10); HEMATOCRIT 43 % (35-52); HEMOGLOBIN 13.8 g/dL (11.5-16.0); LYMPHOCYTES # (AUTO) 1.1 X 10^3 (1.0-4.0); LYMPHOCYTES % (AUTO) 19 % (12-44); MEAN CORPUSCULAR HEMOGLOBIN 32 pg (25-34); MEAN CORPUSCULAR HGB CONC 32 g/dL (32-36); MEAN CORPUSCULAR VOLUME 99 fL (80-99); MEAN PLATELET VOLUME 10.1 fL (9.0-12.2); MONOCYTES # (AUTO) 0.3 X 10^3 (0.0-1.0); MONOCYTES % (AUTO) 5 % (0-12); NEUTROPHILS # (AUTO) 4.3 X 10^3 (1.8-7.8); NEUTROPHILS % (AUTO) 73 % (42-75); PLATELET COUNT 188 10^3/uL (130-400)
[2022-01-28 15:32] LABS: CHLORIDE 105 MMOL/L (98-107); POTASSIUM 4.4 MMOL/L (3.6-5.0); SODIUM 140 MMOL/L (135-145)
[2022-01-28 15:33] LABS: CALCIUM 9.6 MG/DL (8.5-10.1)
[2022-01-28 15:34] LABS: GLUCOSE 117 MG/DL (70-105)
[2022-01-28 15:35] LABS: CARBON DIOXIDE 24 MMOL/L (21-32)
--- NOTE | 2022-01-28 15:35 | Diagnostic Imaging Report ---
PROCEDURE: CT abdomen and pelvis without contrast. TECHNIQUE: Multiple contiguous axial images were obtained through the abdomen and pelvis without the use of intravenous contrast. Auto Exposure Controls were utilized during the CT exam to meet ALARA standards for radiation dose reduction. INDICATION: Difficulty with bowel movements, minimal stool, also having some vomiting. EXAMINATION: Noncontrasted abdominal pelvic CT was performed. FINDINGS: There is a mildly elevated colonic fecal load diffusely but no evidence for rectal or sigmoidal impaction. While evaluation of bowel wall is limited by the intraluminal stool, and the absence of contrast, there is a cyst a suggestion of diffuse large bowel wall thickening compatible with nonspecific colitis. This most notably involves its descending and distal transverse component. Along the left colon there is some equivocal very mild stranding and induration of the pericolonic fat. Distally this extends through at least the mid sigmoid colon level. There is no pneumatosis. No focal soft tissue thickening to suggest a discrete mass. Unobstructed small bowel appears normal. There is no pneumatosis. There is no free gas. The liver is unremarkable. The gallbladder is surgically absent. Bile ducts are nondilated. The spleen, adrenals and pancreas are unremarkable. The unobstructed kidneys appear normal. IMPRESSION: 1. Mildly elevated fecal load and suspicion for left-sided colitis through the mid sigmoid. No pneumatosis, free air or gas. No small bowel dilatation. 2. No other potential acute appearing abnormality. 3. Nonaneurysmal aorta with no calcified atherosclerotic burden. Dictated by: Dictated on workstation # [id number]
[2022-01-28 15:36] LABS: BILIRUBIN,TOTAL 1.1 MG/DL (0.1-1.0)
[2022-01-28 15:38] LABS: ALKALINE PHOSPHATASE 46 U/L (40-136); CREATININE SERUM 1.16 MG/DL (0.60-1.30); GFR ESTIMATED 54
[2022-01-28 15:39] LABS: BUN/CREATININE RATIO 12
[2022-01-28 15:41] LABS: ALANINE AMINOTRANSFERASE 12 U/L (0-55)
[2022-01-28 15:48] LABS: BILIRUBIN,URINE NEGATIVE (NEGATIVE); RBC,URINE RARE /HPF
[2022-01-28 15:49] LABS: AMORPHOUS SEDIMENT,UR FEW AMOR PHOSPHATE /LPF; BACTERIA,URINE MODERATE /HPF; RENAL EPITHELIAL CELLS,URINE RARE /HPF
[2022-01-28] MEDS ORDERED: ONDA4TAB11 PO (15:50)
[2022-01-28] MEDS ORDERED: CIPR500T5 PO (15:50)
[2022-01-28] MEDS ORDERED: CIPROFLOXACIN 500 MG (CIPRO) TABLET PO ONE (16:00)
== END 2022-01-28 16:08 | disposition home or self-care (01) ==
LOC: EDUNIT# 13:07 → ER 13:08
DX: N39.0 Urinary tract infection, site not specified (principal); K52.9 Noninfective gastroenteritis and colitis, unspecified
CPT/HCPCS: 36415; 74176; 80053; 81000; 85025; 86141; 87088

== ENCOUNTER 2022-07-21 18:06 | Emergency (ER) | payer BC ==
[~2022-07-21] VITALS: Ht 167 cm; Wt 72.0 kg
[~2022-07-21 18:06] MED LIST changes: +CIPR500T5 PO; +ONDA4TAB11 PO
[2022-07-21 18:45] LABS: BASOPHILS # (AUTO) 0.1 10^3/uL (0.0-0.1); BASOPHILS % (AUTO) 1 % (0-10); EOSINOPHILS # (AUTO) 0.6 10^3/uL (0.0-0.3); EOSINOPHILS % (AUTO) 12 % (0-10); HEMATOCRIT 36 % (35-52); HEMOGLOBIN 11.6 g/dL (11.5-16.0); LYMPHOCYTES # (AUTO) 1.9 10^3/uL (1.0-4.0); LYMPHOCYTES % (AUTO) 37 % (12-44); MEAN CORPUSCULAR HEMOGLOBIN 32 pg (25-34); MEAN CORPUSCULAR HGB CONC 32 g/dL (32-36); MEAN CORPUSCULAR VOLUME 99 fL (80-99); MEAN PLATELET VOLUME 9.9 fL (9.0-12.2); MONOCYTES # (AUTO) 0.4 10^3/uL (0.0-1.0); MONOCYTES % (AUTO) 8 % (0-12); NEUTROPHILS # (AUTO) 2.1 10^3/uL (1.8-7.8); NEUTROPHILS % (AUTO) 42 % (42-75); PLATELET COUNT 158 10^3/uL (130-400); WHITE BLOOD COUNT 5.1 10^3/uL (4.3-11.0)
--- NOTE | 2022-07-21 18:46 | ED General ---
General Chief Complaint: General Problems/Pain Stated Complaint: FEELING FAINT Nursing Triage Note: PT CO OF WEAKNESS, FACE WAS SWOLLEN THIS AM, VERY TIRED, DENIES PAIN. PT STATES SLURRING A LITTLE AND TROUBLE FINDING WORDS Source of Information: Patient History of Present Illness Date Seen by Provider: Jul 21, 2022 Time Seen by Provider: 18:25 Initial Comments PT ARRIVES VIA POV FROM HOME STATES SINCE YESTERDAY SHE HAS FELT VERY TIRED, ESPECIALLY AFTER SHE GOT OFF WORK AT 1330. STATES "JUST NOT FELT RIGHT --I CAN'T DESCRIBE IT" WORSE ON WAKING AT 0230 THIS AM "I FEEL LIKE I'M IN [place]--LIKE I'M BOTTOMING OUT" STATES THEY DAY BEFORE YESTERDAY SHE HAD CHEST PAIN OFF AND ON ALL DAY "I JUST BLEW IT OFF" --NOTHING WORSENED OR IMPROVED THE PAIN NO CHEST PAIN TODAY NO SHORTNESS OF BREATH NO COUGH OR URI SYMPTOMS NO FEVER NO NAUSEA/VOMITING, BUT HAS HAD DECREASED APPETITE THE LAST COUPLE OF DAYS. SHE HAS CHRONIC ABDOMINAL PAIN--LATELY IT HAS BEEN MORE ON THE LEFT SIDE AND LLQ--STATES SHE HAS IBS AND IS ALWAYS CONSTIPATED--NORMALLY HAS A BM ONCE A WEEK--LAST BM WAS 2-3 DAYS AGO--STATES "I ALWAYS FEEL LIKE I'M GONNA PASS OUT EVERY TIME I HAVE A BM" NO BLACK/BLOODY/TARRY STOOLS NO URINARY SYMPTOMS AND VOIDING A NORMAL AMOUNT. NO SWELLING IN LEGS/FEET OR PAIN IN CALVES SHE STATES SHE THINKS THAT SHE IS SLURRING HER SPEECH A LITTLE AND HAS BEEN HAVING TROUBLE FINDING WORDS, BUT SHE STATES NO ONE ELSE HAS NOTICED IT. NO HEADACHE NO VISION CHANGES NO PARESTHESIAS OR MOTOR DEFICITS PT HAS HISTORY OF AFIB AND V-TACH, AND IS ON ELIQUIS--SEES DR. HENNING SHE WORE A 2 WEEK HEART MONITOR LAST MONTH--DOES NOT KNOW RESULTS SHE HAS HISTORY OF BRAIN ANEURYSM REPAIR SHE HAS NOT HAD ANY MEDICATION CHANGES, AND NO MISSED DOSES OF MEDICATIONS AND TOOK ALL DAILY MEDICATIONS TODAY. SHE HAS HAD COVID VACCINE X 2 AND FLU VACCINE FOR THIS SEASON PCP: DR. LERMA AT [facility] STONE HAND: DR. HENNING Allergies and Home Medications Allergies Coded Allergies: Iodinated Contrast Media (Verified Allergy, Unknown, 07/10/18) diltiazem (Verified Allergy, Unknown, 07/10/18) Patient Home Medication List Alendronate Sodium (Alendronate Sodium) 10 Mg Tablet, 10 MG PO DAILY, (Reported) Entered as Reported by: ESTEFANIA CAMPO on 08/19/21 0850 Apixaban (Eliquis) 5 Mg Tablet, 5 MG PO BID, (Reported) Entered as Reported by: ESTEFANIA CAMPO on 08/19/21 0850 Atorvastatin Calcium (Atorvastatin Calcium) 20 Mg Tablet, 20 MG PO DAILY Prescribed by: DILAN HENNING on 08/19/21 1157 Cetirizine HCl (Cetirizine HCl) 10 Mg Tablet, 10 MG PO DAILY, (Reported) Entered as Reported by: ESTEFANIA CAMPO on 08/19/21 0850 Ciprofloxacin HCl (Ciprofloxacin HCl) 500 Mg Tablet, 500 MG PO BID Prescribed by: RAZA SALVADOR on 01/28/22 1550 Fluticasone Propionate (Flonase Allergy Relief) 50 Mcg/Actuation [place].susp, 1 SPRAY NSEACH DAILY, (Reported) Entered as Reported by: ESTEFANIA CAMPO on 08/19/21 0850 Hydrocodone Bit/Acetaminophen (HYDROcodone/APAP 10/325 TABLET) 1 Each Tablet, 1 TAB PO TID PRN for PAIN-MODERATE, (Reported) Entered as Reported by: SHERRON HILLMAN on 08/06/16 1617 Levothyroxine Sodium (Levothyroxine Sodium) 200 Mcg Tablet, 200 MCG PO DAILY, (Reported) Entered as Reported by: ESTEFANIA CAMPO on 08/19/21 0850 Metoprolol Succinate (Metoprolol Succinate) 50 Mg Tab.er.24h, 50 MG PO DAILY, (Reported) Entered as Reported by: ESTEFANIA CAMPO on 08/19/21 0850 Ondansetron (Ondansetron Odt) 4 Mg Tab.rapdis, 4 MG PO Q6H PRN for NAUSEA/VOMITING Prescribed by: RAZA SALVADOR on 01/28/22 1550 Phenazopyridine HCl (Pyridium) 200 Mg Tablet, 1 TAB PO TID Prescribed by: EVELIA DAILEY on 09/22/18 0457 Review of Systems Review of Systems Constitutional: see HPI, dizziness, malaise, weakness EENTM: no symptoms reported Respiratory: no symptoms reported; No cough, No dyspnea on exertion, No short of breath Cardiovascular: see HPI, chest pain; No edema, No palpitations, No syncope, No vascular heart diseas Gastrointestinal: see HPI, abdominal pain, constipation; No diarrhea; loss of appetite; No nausea, No vomiting Genitourinary: no symptoms reported; No decreased output Musculoskeletal: no symptoms reported Skin: no symptoms reported Psychiatric/Neurological: See HPI Hematologic/Lymphatic: No Symptoms Reported Immunological/Allergic: no symptoms reported Past Wcdwdtl-Nlzwwm-Gnyiwb Hx Patient Social History Tobacco Use?: No Substance use?: No Alcohol Use?: No Pt feels they are or have been: No Immunizations Up To Date Tetanus Booster (TDap): Unknown PED Vaccines UTD: No Influenza Vaccine Up-to-Date: Yes; Up-to-Date First/Initial COVID19 Vaccinat: June COVID19 Vaccination Butch: July COVID19 Vaccination Date: MAR Seasonal Allergies Seasonal Allergies: No Past Medical History Surgery/Hospitalization HX: A-FIB, GRAVES DISEASE. 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 Sexually Transmitted Disease: No HIV/AIDS: No Genitourinary: No Gastrointestinal: Yes Irritable Bowel Musculoskeletal: Yes Fractures Endocrine: Yes (GRAVES DISEASE) Hypothyroidsim HEENT: No Cancer: No Psychosocial: Yes Anxiety Integumentary: No Blood Disorders: No Adverse Reaction/Blood Tranf: No Family Medical History Arthritis 19 FATHER Cancer G8 SISTER 19 MOTHER Cardiovascular disease 19 FATHER Completed stroke 19 FATHER Family history: Cardiovascular disease 19 FATHER Kidney disease 19 FATHER No Family History of: AIDS Abdominal aortic aneurysm Miguel Ángel's disease Alcoholism Alzheimer's disease Aphasia Cancer of mouth Cataracts Colon cancer Congenital disease Coronary thrombosis Cystic fibrosis Deafness or hearing loss Dementia Diabetes mellitus Drug abuse Dysphasia Fibrocystic disease of breast Gastroenteritis Glaucoma Headache disorder Hypercholesterolemia Hypertension Infertility Myocardial infarction Neoplasm Not obtainable due to adoption Osteoporosis Parkinson's disease Prostate cancer Respiratory disorder Seizure disorder Severe allergy Thyroid disease Tuberculosis Visual disorder Cancer, CVA, Hypertension, Renal Disease Physical Exam Vital Signs Vital Signs - First Documented 07/21/22 18:15 Temp 36.6 Pulse 62 Resp 18 B/P (MAP) 117/82 (94) Pulse Ox 98 Capillary Refill : Less Than 3 Seconds Height, Weight, BMI Height: 5'7.00" Weight: 183lbs. 0.0oz. 83.654808me; 25.00 BMI Method:Stated Progress/Results/Core Measures Suspected Sepsis SIRS Temperature: Pulse: 62 Respiratory Rate: 18 Laboratory Tests 07/21/22 18:33: White Blood Count 5.1 Blood Pressure 117 /82 Mean: 94 Laboratory Tests 07/21/22 18:33: Creatinine 1.22, INR Comment 1.2, Platelet Count 158, Total Bilirubin 0.5 Results/Orders Lab Results Laboratory Tests Test 07/21/22 18:33 07/21/22 19:49 07/21/22 20:18 Range/Units White Blood Count 5.1 4.3-11.0 10^3/uL Red Blood Count 3.62 L 3.80-5.11 10^6/uL Hemoglobin 11.6 11.5-16.0 g/dL Hematocrit 36 35-52 % Mean Corpuscular Volume 99 80-99 fL Mean Corpuscular Hemoglobin 32 25-34 pg Mean Corpuscular Hemoglobin Concent 32 32-36 g/dL Red Cell Distribution Width 12.8 10.0-14.5 % Platelet Count 158 130-400 10^3/uL Mean Platelet Volume 9.9 9.0-12.2 fL Immature Granulocyte % (Auto) 0 % Neutrophils (%) (Auto) 42 42-75 % Lymphocytes (%) (Auto) 37 12-44 % Monocytes (%) (Auto) 8 0-12 % Eosinophils (%) (Auto) 12 H 0-10 % Basophils (%) (Auto) 1 0-10 % Neutrophils # (Auto) 2.1 1.8-7.8 10^3/uL Lymphocytes # (Auto) 1.9 1.0-4.0 10^3/uL Monocytes # (Auto) 0.4 0.0-1.0 10^3/uL Eosinophils # (Auto) 0.6 H 0.0-0.3 10^3/uL Basophils # (Auto) 0.1 0.0-0.1 10^3/uL Immature Granulocyte # (Auto) 0.0 0.0-0.1 10^3/uL Erythrocyte Sedimentation Rate 10 0-30 MM/HR Prothrombin Time 15.8 H 12.2-14.7 SEC INR Comment 1.2 0.8-1.4 Activated Partial Thromboplast Time 32 24-35 SEC D-Dimer <= 0.27 0.00-0.49 UG/ML Sodium Level 140 135-145 MMOL/L Potassium Level 3.6 3.6-5.0 MMOL/L Chloride Level 105 98-107 MMOL/L Carbon Dioxide Level 24 21-32 MMOL/L Anion Gap 11 5-14 MMOL/L Blood Urea Nitrogen 18 7-18 MG/DL Creatinine 1.22 0.60-1.30 MG/DL Estimat Glomerular Filtration Rate 51 BUN/Creatinine Ratio 15 Glucose Level 70 70-105 MG/DL Calcium Level 9.1 8.5-10.1 MG/DL Corrected Calcium 8.9 8.5-10.1 MG/DL Magnesium Level 2.1 1.6-2.4 MG/DL Total Bilirubin 0.5 0.1-1.0 MG/DL Aspartate Amino Transf (AST/SGOT) 70 H 5-34 U/L Alanine Aminotransferase (ALT/SGPT) 37 0-55 U/L Alkaline Phosphatase 33 L 40-136 U/L Creatine Kinase MB 5.1 <6.6 NG/ML Myoglobin 101.4 H 10.0-92.0 NG/ML Troponin I < 0.028 <0.028 NG/ML C-Reactive Protein High Sensitivity 0.04 0.00-0.50 MG/DL B-Type Natriuretic Peptide < 10.0 <100.0 PG/ML Total Protein 6.6 6.4-8.2 GM/DL Albumin 4.3 3.2-4.5 GM/DL TSH [place] Testing 174.18 H 0.35-4.94 UIU/ML Urine Color YELLOW Urine Clarity CLEAR Urine pH 6.0 5-9 Urine Specific [place] >=1.030 1.016-1.022 Urine Protein 1+ H NEGATIVE Urine Glucose (UA) NEGATIVE NEGATIVE Urine Ketones NEGATIVE NEGATIVE Urine Nitrite NEGATIVE NEGATIVE Urine Bilirubin NEGATIVE NEGATIVE Urine Urobilinogen 1.0 < = 1.0 MG/DL Urine Leukocyte Esterase 1+ H NEGATIVE Urine RBC (Auto) NEGATIVE NEGATIVE Urine RBC 0-2 /HPF Urine WBC 10-25 H /HPF Urine Squamous Epithelial Cells 5-10 /HPF Urine Crystals PRESENT H /LPF Urine Amorphous Sediment FEW RANDY URATES H /LPF Urine Bacteria MODERATE H /HPF Urine Casts NONE /LPF Urine Mucus MODERATE H /LPF Urine Culture Indicated YES Influenza Type A (RT-PCR) Not Detected Not Detecte Influenza Type B (RT-PCR) Not Detected Not Detecte SARS-CoV-2 RNA (RT-PCR) Not Detected Not Detecte My Orders Orders - EVELIA DAILEY DO Ed Iv/Invasive Line Start (07/21/22 18:25) Ekg Tracing (07/21/22 18:25) O2 (07/21/22 18:25) Monitor-Rhythm Ecg Trace Only (07/21/22 18:25) Chest 1 View, Ap/Pa Only (07/21/22 18:25) Bnp [place] (07/21/22 18:25) Cbc With Automated Diff (07/21/22 18:25) Comprehensive Metabolic Panel (07/21/22 18:25) Creatine Kinase Mb (07/21/22 18:25) Hs C Reactive Protein (07/21/22 18:25) Fibrin Degradation Products (07/21/22 18:25) Magnesium (07/21/22 18:25) Protime With Inr (07/21/22 18:25) Partial Thromboplastin Time (07/21/22 18:25) Thyroid Analyzer (07/21/22 18:25) Ua Culture If Indicated (07/21/22 18:25) Erythrocyte Sedimentation Rate (07/21/22 18:25) Myoglobin Serum (07/21/22 18:25) Troponin I [place] (07/21/22 18:25) Covid 19 Inhouse Test (07/21/22 18:28) Influenza A And B By Pcr (07/21/22 18:28) Isolation Central Supply Req (07/21/22 18:28) Ct Head Wo-R/O Stroke (07/21/22 19:09) Ed Iv/Invasive Line Start (07/21/22 19:44) Lactated Ringers (Lr 1000 Ml Iv Solution (07/21/22 19:45) Ct Chest/Abdomen/Pelvis Wo (07/21/22 19:48) Free T4 (Free Thyroxine) (07/21/22 18:33) Urine Culture (07/21/22 19:49) Ceftriaxone 1 Gm Pre-Mix (Rocephin 1 Gm (07/21/22 20:30) Medications Given in ED Current Medications Medications Dose Ordered Sig/Mickie Route Start Time Stop Time Status Last Admin Dose Admin Lactated Ringer's 1,000 ml @ 0 mls/hr Q0M ONCE IV 07/21/22 19:45 07/21/22 19:46 DC 07/21/22 20:04 0 MLS/HR Vital Signs/I&O 07/21/22 18:15 Temp 36.6 Pulse 62 Resp 18 B/P (MAP) 117/82 (94) Pulse Ox 98 Capillary Refill : Less Than 3 Seconds Blood Pressure Mean: [address] HEAD--PER RADIOLOGIST REPORT AT 1943 FINDINGS: The arboleda-white matter differentiation is normal. There is an old lacunar infarct in the left basal ganglia. No mass effect or midline shift. The ventricles are normal in size and configuration. Basilar cisterns are patent. There are no intra- or extra-axial fluid collections. There is no intracranial hemorrhage. There are embolization coils near the [place]. The orbits are normal. Paranasal sinuses are normal. Mastoid air cells are clear. No soft tissue abnormality is seen. No osseus lesions or fractures are seen. IMPRESSION: 1. No acute intracranial abnormality. CT CHEST/ABDOMEN/PELVIS--PER RADIOLOGIST REPORT AT 2021 FINDINGS: There is no edema or pneumonia. No pleural effusion. No pneumothorax. No suspicious nodules. There is no axillary or supraclavicular lymphadenopathy. There is no mediastinal lymphadenopathy. Heart size is normal. There are no coronary artery calcifications. No pericardial effusion. Aorta is normal in caliber. The liver is normal without focal lesion. There is no biliary ductal dilation. Gallbladder is absent. Pancreas is normal. Spleen is normal. Adrenal glands are normal. The kidneys are normal. There is no hydronephrosis. Urinary bladder is normal. Bowel is normal in caliber without obstruction or inflammation. No free fluid or air. No abdominal or pelvic lymphadenopathy. Aorta is normal in caliber without aneurysm. There are no suspicious osseus lesions. IMPRESSION: 1. No acute abnormality in the chest, abdomen or pelvis. Reviewed: Reviewed by Me Departure Impression Primary Impression: UTI (urinary tract infection) Disposition: HOME, SELF-CARE Condition: Stable Departure-Patient Inst. Decision time for Depature: 20:55 Referrals: EZEKIEL LERMA MD (PCP/Family) Primary Care Physician Patient Instructions: Urinary Tract Infection, Adult (DC) Add. Discharge Instructions: HOME, REST LOTS OF CLEAR LIQUIDS--NO COFFEE, POP OR TEA CONTINUE YOUR REGULAR MEDICATIONS PRESCRIBED FOLLOW UP WITH YOUR DR IN 3-4 DAYS FOR FURTHER CARE, RETURN TO ER IF SYMPTOMS WORSEN All discharge instructions reviewed with patient and/or family. Voiced understanding. Scripts Nitrofurantoin Monohyd/M-Cryst (Macrobid 100 mg Capsule) 100 Mg Capsule 1 TAB PO BID, #20 CAP Prov: EVELIA DAILEY DO 07/21/22 EVELIA DAILEY DO Jul 21, 2022 18:46
[2022-07-21 18:56] LABS: ALBUMIN 4.3 GM/DL (3.2-4.5); CHLORIDE 105 MMOL/L (98-107); POTASSIUM 3.6 MMOL/L (3.6-5.0); SODIUM 140 MMOL/L (135-145)
[2022-07-21 18:58] LABS: CALCIUM 9.1 MG/DL (8.5-10.1)
[2022-07-21 18:59] LABS: GLUCOSE 70 MG/DL (70-105); TOTAL PROTEIN 6.6 GM/DL (6.4-8.2)
[2022-07-21 19:00] LABS: CARBON DIOXIDE 24 MMOL/L (21-32)
[2022-07-21 19:01] LABS: BILIRUBIN,TOTAL 0.5 MG/DL (0.1-1.0)
[2022-07-21 19:02] LABS: ALKALINE PHOSPHATASE 33 U/L (40-136)
[2022-07-21 19:03] LABS: CREATININE SERUM 1.22 MG/DL (0.60-1.30); FIBRIN DEGRADATION PRODUCTS <= 0.27 UG/ML (0.00-0.49); GFR ESTIMATED 51; INR 1.2 (0.8-1.4); PARTIAL THROMBOPLASTIN TIME 32 SEC (24-35); PROTHROMBIN TIME PATIENT 15.8 SEC (12.2-14.7)
[2022-07-21 19:04] LABS: BUN/CREATININE RATIO 15
[2022-07-21 19:05] LABS: ALANINE AMINOTRANSFERASE 37 U/L (0-55); MAGNESIUM 2.1 MG/DL (1.6-2.4)
[2022-07-21 19:06] LABS: ERYTHROCYTE SEDIMENTATION RATE 10 MM/HR (0-30)
[2022-07-21 19:14] LABS: CREATINE KINASE MB 5.1 NG/ML (<6.6)
--- NOTE | 2022-07-21 19:19 | Diagnostic Imaging Report ---
EXAMINATION: Chest 1 view HISTORY: WEAK, DIZZY COMPARISON: 10/06/2020 FINDINGS: The lungs are clear without edema or pneumonia. No pleural effusion or pneumothorax. Heart size is normal. IMPRESSION: 1. Clear lungs. Dictated by: Dictated on workstation # [id number]
--- NOTE | 2022-07-21 19:33 | Diagnostic Imaging Report ---
EXAMINATION: CT head without contrast. TECHNIQUE: Multiple contiguous axial images were obtained through the brain without the use of intravenous contrast. All CT scans use one or more of the following dose optimizing techniques: automated exposure control, MA and/or KvP adjustment based on patient size and exam type or iterative reconstruction. HISTORY: Neuro deficit COMPARISON: 11/20/2016 FINDINGS: The arboleda-white matter differentiation is normal. There is an old lacunar infarct in the left basal ganglia. No mass effect or midline shift. The ventricles are normal in size and configuration. Basilar cisterns are patent. There are no intra- or extra-axial fluid collections. There is no intracranial hemorrhage. There are embolization coils near the [place]. The orbits are normal. Paranasal sinuses are normal. Mastoid air cells are clear. No soft tissue abnormality is seen. No osseus lesions or fractures are seen. IMPRESSION: 1. No acute intracranial abnormality. Dictated by: Dictated on workstation # [id number]
[2022-07-21] MEDS ORDERED: LACTATED RINGERS 1,000 ML IV ONE (19:45)
[2022-07-21 19:57] LABS: TSH (THYROID ANALYZER) 174.18 UIU/ML (0.35-4.94)
[2022-07-21 19:59] LABS: BILIRUBIN,URINE NEGATIVE (NEGATIVE); CLARITY,URINE CLEAR; COLOR,URINE YELLOW; GLUCOSE, URINE (UA) NEGATIVE (NEGATIVE); KETONES,URINE NEGATIVE (NEGATIVE); LEUKOCYTE ESTERASE ,URINE 1+ (NEGATIVE); NITRITE,URINE NEGATIVE (NEGATIVE); PROTEIN,URINE 1+ (NEGATIVE)
[2022-07-21 20:18] LABS: RBC,URINE 0-2 /HPF
[2022-07-21 20:19] LABS: AMORPHOUS SEDIMENT,UR FEW AMOR URATES /LPF; BACTERIA,URINE MODERATE /HPF
--- NOTE | 2022-07-21 20:19 | Diagnostic Imaging Report ---
EXAMINATION: CT chest, abdomen and pelvis without intravenous contrast. TECHNIQUE: Multiple contiguous axial images were obtained through the chest, abdomen and pelvis without intravenous contrast. All CT scans use one or more of the following dose optimizing techniques: automated exposure control, MA and/or KvP adjustment based on patient size and exam type or iterative reconstruction. HISTORY: Shortness of breath and abdominal pain. COMPARISON: 01/28/2022. FINDINGS: There is no edema or pneumonia. No pleural effusion. No pneumothorax. No suspicious nodules. There is no axillary or supraclavicular lymphadenopathy. There is no mediastinal lymphadenopathy. Heart size is normal. There are no coronary artery calcifications. No pericardial effusion. Aorta is normal in caliber. The liver is normal without focal lesion. There is no biliary ductal dilation. Gallbladder is absent. Pancreas is normal. Spleen is normal. Adrenal glands are normal. The kidneys are normal. There is no hydronephrosis. Urinary bladder is normal. Bowel is normal in caliber without obstruction or inflammation. No free fluid or air. No abdominal or pelvic lymphadenopathy. Aorta is normal in caliber without aneurysm. There are no suspicious osseus lesions. IMPRESSION: 1. No acute abnormality in the chest, abdomen or pelvis. Dictated by: Dictated on workstation # [id number]
[2022-07-21] MEDS ORDERED: cefTRIAXone 1 GM PRE-MIX 50 ML IV ONE (20:30)
[2022-07-21] MEDS ORDERED: NITR-65 PO (20:56)
[2022-07-21 21:25] VITALS: BP 107/82
[2022-07-21 21:37] LABS: FREE T4 (FREE THYROXINE) < 0.40 NG/DL (0.70-1.48)
== END 2022-07-21 21:29 | disposition home or self-care (01) ==
LOC: EDUNIT# 18:06 → ER 18:09
DX: N39.0 Urinary tract infection, site not specified (principal); I48.91 Unspecified atrial fibrillation; Z79.01 Long term (current) use of anticoagulants; Z20.822 Contact with and (suspected) exposure to COVID-19
CPT/HCPCS: 36415; 70450; 71045; 71250; 74176; 80053; 81000; 82553; 83735; 83874; 83880; 84439; 84443; 84484; 85025; 85379; 85610; 85652; 85730; 86141; 87088; 87636; 93005; 93041

== ENCOUNTER → 2022-12-25 | Outpatient (CLI) | payer BC ==
[~2022-12-25] MED LIST changes: +NITR-65 PO
== END ==
LOC: LAB 13:24
PROVIDERS: ATTEND Family Medicine
DX: M35.00 Sjogren syndrome, unspecified (principal); L81.6 Other disorders of diminished melanin formation; L85.3 Xerosis cutis
CPT/HCPCS: 36415; 85652; 86038; 86141; 86225; 86235